=== PATIENT | male | born 1960 | race Caucasian/White ===

== ENCOUNTER 2016-12-27 06:42 | Day surgery (SDC) | payer MEDICARE ==
--- NOTE | 2016-12-18 09:24 | HP ---
DATE OF ADMISSION: Chief-complaint: Renal failure. HISTORY OF PRESENT ILLNESS: Patient is a 56-year-old male who has progressive renal failure. This was thought to be related to diabetes. He describes bilateral lower extremities leg swelling. He has had decent urine output. The patient when evaluated in October was not quite ready to proceed with dialysis catheter insertion, but called back recently to schedule. The patient is not interested in hemodialysis currently. Past medical history is renal failure, diabetes, hypertension, edema, coronary artery disease, sleep apnea, depression, neuropathy, CVA, COPD, hypertriglyceridemia, kidney stones, chronic pain, diverticulosis. MEDICATIONS: See list. ALLERGIES: None. PAST SURGICAL HISTORY: Abi, appendectomy, bladder. PHYSICAL EXAMINATION: GENERAL: Well-developed, well-nourished male in no distress. HEENT: Normocephalic. Sclerae anicteric. CHEST: No deformities. ABDOMEN: Soft, nontender, nondistended. Previous scars noted. No hernias. IMPRESSION: A 56-year-old male with renal failure. PLAN: Will proceed with PD catheter insertion on 12/27. The risks of bleeding, infection, catheter malfunction, bowel injury were discussed. The patient understands and wishes to proceed.
[2016-12-26 09:35] VITALS: BMI 28.5
[~2016-12-27 06:42] MED LIST: HEPARIN SODIUM,PORCINE 5,000 UNIT/ML 1 ML VIAL SQ ONE; HYDROmorphone 1 MG/ML 1 ML SYRINGE IVP PRN; LACTATED RINGERS 1,000 ML IV SCH; LIDOCAINE 1% 20 ML VIAL (10MG/ML) FOR IV START INTRADERMA PRN; ONDANSETRON 4 MG/2 ML VIAL IVP ONE; ceFAZolin 2 GM in SODIUM CHLORIDE 0.9% 100 ML IVPB ONE
[2016-12-27] MEDS ORDERED: SODIUM CHLORIDE 0.9% 1,000 ML IV ONE (07:27)
[2016-12-27 07:51] LABS: Glucose,Whole Blood 149 mg/dL (75-99)
[2016-12-27] MEDS ORDERED: MIDAZOLAM 2 MG/2 ML VIAL IVP ONE (08:01)
[2016-12-27 08:09] LABS: Basophils % (A) 1 %; CH 33.1; CHCM 37.3; Eosinophils # (A) 0.1 k/uL (0-0.7); Eosinophils % (A) 2 %; HCT 22.6 % (39.0-53.0); HDW 3.34; HGB 8.1 gm/dL (13.0-17.5); Hyperchromasia Slight; Luc # (Auto) 0.11; Luc % (Auto) 2; Lymphocytes # (A) 1.1 k/uL (1.0-4.8); Lymphocytes % (A) 23 %; MCH 31.9 pg (25.0-35.0); MCHC 35.8 g/dL (31.0-37.0); MCV 89.2 fL (80.0-100.0); Mean Platelet Volume 8.1; Monocytes # (A) 0.3 k/uL (0-1.0); Monocytes % (A) 6 %; Neutrophils # (A) 3.3 k/uL (1.3-7.7); Neutrophils % (A) 67 %; RBC 2.53 m/uL (4.30-5.90); RDW 14.5 % (11.5-15.5); WBC (Perox) 5.42
[2016-12-27] MEDS ORDERED: PROPOFOL 10 MG/ML 20 ML VIAL IV ONE (09:52)
[2016-12-27] MEDS ORDERED: ePHEDrine 50 MG/ML 1 ML AMP ONE (09:52)
[2016-12-27] MEDS ORDERED: SUCCINYLCHOLINE CHLORIDE 100 MG/5 ML SYR IV ONE (09:52)
[2016-12-27] MEDS ORDERED: LIDOCAINE 1% INJ 10MG/ML (20 ML MDV) ONE (09:52)
[2016-12-27] MEDS ORDERED: fentaNYL (PF) 50 MCG/ML 2 ML AMP ONE (09:52)
[2016-12-27] MEDS ORDERED: MIDAZOLAM 2 MG/2 ML VIAL ONE (09:52)
[2016-12-27] MEDS ORDERED: BUPIVACAIN-EPI 0.25%-1:200,000 30 ML VIAL SQ ONE ×3 (09:59→10:10)
[2016-12-27] MEDS ORDERED: MINERAL OIL 1 APPLIC/ML OIL TOPICAL ONE ×2 (09:59→10:10)
[2016-12-27] MEDS ORDERED: HYDROcodone/APAP 5-325MG 1 EACH TAB PO PRN (10:39)
[2016-12-27] MEDS ORDERED: NALOXONE 0.4 MG/ML 1 ML VIAL IV PRN (10:39)
--- NOTE | 2016-12-27 10:41 | P.PCN ---
Date of Procedure: 12/27/16 Procedure(s) Performed: PREOPERATIVE DIAGNOSIS: Renal failure POSTOPERATIVE DIAGNOSIS: Same PROCEDURE: Peritoneal dialysis catheter insertion SURGEON: Edy EBL: Minimal ANESTHESIA: Sedation plus local COMPLICATIONS: None OPERATIVE PROCEDURE: The patient was placed in the operative table in the supine position. His abdomen was prepped and draped in usual sterile fashion. A small vertical incision was made in the right periumbilical location. Dissection down through the subcutaneous tissues took place using electrocautery. The anterior rectus was divided vertically using the scalpel. The rectus was bluntly. The posterior rectus was visualized. An 0 Vicryl pursestring was placed. A small opening in the posterior rectus fascia and peritoneum took place using a Metzenbaum scissors. There were no adhesions to the suture that was placed. The pigtail catheter was advanced into the pelvis over a stylette. No resistance was met. The inner cuff was secured to the fascia using the 0 Vicryl pursestring that was placed. The catheter was tunneled to an exit site in the right lateral lower quadrant. The catheter was connected to the 1 L bag of saline and approximated 800 mL of saline was easily introduced into the peritoneal cavity. The fluid was then allowed to evacuate. The majority of the fluid was returned. The anterior rectus fascia was then reapproximated using a running 0 Vicryl stitch. The subcutaneous tissues reprepped using 3-0 Vicryl sutures and the skin using 4-0 Monocryl sutures. The outpatient dialysis adapter was applied to the end of the catheter. A sterile dressings then applied after Steri-Strips were placed over the incision. DISPOSITION: Stable to recovery room
[2016-12-27 11:01] VITALS: TEMP 97.4
[2016-12-27 11:07] LABS: Glucose,Whole Blood 125 mg/dL (75-99)
[2016-12-27] MEDS ORDERED: HYDROmorphone 1 MG/ML 1 ML SYRINGE IVP ONE ×5 (11:08→11:49)
[2016-12-27] MEDS ORDERED: hydrALAZINE HCL 20 MG/ML 1 ML VIAL IVP ONE ×2 (11:23→11:31)
[2016-12-27] MEDS ORDERED: LACTATED RINGERS 1,000 ML IV ONE (11:51)
[2016-12-27 11:59] VITALS: RESP 16
[2016-12-27 12:19] LABS: Glucose,Whole Blood 149 mg/dL (75-99)
[2016-12-27 12:54] VITALS: BP 156/69; PULSE 71
== END 2016-12-27 13:19 | disposition home or self-care (01) ==
LOC: OR 06:42
PROVIDERS: ATTEND Surgery
DX: N19 Unspecified kidney failure (principal); E11.9 Type 2 diabetes mellitus without complications; Z79.4 Long term (current) use of insulin; I10 Essential (primary) hypertension; Z87.891 Personal history of nicotine dependence; I25.10 Atherosclerotic heart disease of native coronary artery without angina pectoris; E78.5 Hyperlipidemia, unspecified; G47.33 Obstructive sleep apnea (adult) (pediatric); F32.9 Major depressive disorder, single episode, unspecified; G62.9 Polyneuropathy, unspecified; Z86.73 Personal history of transient ischemic attack (TIA), and cerebral infarction without residual deficits; J44.9 Chronic obstructive pulmonary disease, unspecified; E78.1 Pure hyperglyceridemia; G89.29 Other chronic pain; Z79.891 Long term (current) use of opiate analgesic; Z79.899 Other long term (current) drug therapy
CPT/HCPCS: 93005; 86900; 86901; 84132; 85025; 86850; 49418; C1752; J2250; J0360; J1644; J0690; J2405; J2001; J3010; J1170; J0330; J2704

== ENCOUNTER 2017-04-03 11:18 | Day surgery (SDC) | payer MEDICARE ==
[2017-04-01 14:26] VITALS: BMI 26.4
[~2017-04-03 11:18] MED LIST changes: -HEPARIN SODIUM,PORCINE 5,000 UNIT/ML 1 ML VIAL SQ ONE; -HYDROmorphone 1 MG/ML 1 ML SYRINGE IVP PRN; -LIDOCAINE 1% 20 ML VIAL (10MG/ML) FOR IV START INTRADERMA PRN; -ONDANSETRON 4 MG/2 ML VIAL IVP ONE
[2017-04-03 11:45] VITALS: RESP 16; TEMP 97.7
[2017-04-03] MEDS ORDERED: LIDOCAINE 1% 20 ML VIAL (10MG/ML) FOR IV START INTRADERMA ONE (12:07)
[2017-04-03] MEDS ORDERED: INSULIN LISPRO (humaLOG) 300 UNIT/3 ML VIAL SQ ONE (12:15)
[2017-04-03 12:22] LABS: Glucose,Whole Blood 225 mg/dL (75-99)
[2017-04-03 12:28] LABS: Calcium 7.7 mg/dL (8.4-10.2); Potassium 4.3 mmol/L (3.5-5.1)
[2017-04-03 12:41] LABS: Basophils % (A) 1 %; CH 32.6; CHCM 38.4; Eosinophils # (A) 0.1 k/uL (0-0.7); Eosinophils % (A) 2 %; HCT 21.7 % (39.0-53.0); HDW 3.66; HGB 8.1 gm/dL (13.0-17.5); Hyperchromasia Moderate; Luc # (Auto) 0.08; Luc % (Auto) 2; Lymphocytes # (A) 0.7 k/uL (1.0-4.8); Lymphocytes % (A) 20 %; MCH 31.6 pg (25.0-35.0); MCHC 37.1 g/dL (31.0-37.0); MCV 85.4 fL (80.0-100.0); Mean Platelet Volume 8.6; Monocytes # (A) 0.2 k/uL (0-1.0); Monocytes % (A) 6 %; Neutrophils # (A) 2.6 k/uL (1.3-7.7); Neutrophils % (A) 69 %; Poikilocytosis Slight; RBC 2.54 m/uL (4.30-5.90); RDW 14.9 % (11.5-15.5); WBC 3.7 k/uL (3.8-10.6); WBC (Perox) 4.16
[2017-04-03 13:06] LABS: Manual Review Performed
[2017-04-03 13:07] LABS: Spherocytes Present
[2017-04-03] MEDS ORDERED: MIDAZOLAM 2 MG/2 ML VIAL ONE (14:29)
[2017-04-03] MEDS ORDERED: PROPOFOL 10 MG/ML 20 ML VIAL IV ONE (14:29)
[2017-04-03] MEDS ORDERED: LIDOCAINE 1% INJ 10MG/ML (20 ML MDV) ONE (14:29)
[2017-04-03] MEDS ORDERED: fentaNYL (PF) 50 MCG/ML 2 ML AMP ONE (14:29)
--- NOTE | 2017-04-03 14:32 | P.GSHP ---
History of Present Illness H&P Date: 04/03/17 Chief Complaint: Malfunctioning peritoneal catheter Patient here today for removal of his peritoneal catheter. The patient developed scrotal swelling with peritoneal dialysis. This is despite multiple breaks in the usage of the catheter. He is currently on hemodialysis. His platelets to run low although today they were repeated and were 54. Past Medical History Past Medical History: Coronary Artery Disease (CAD), Chest Pain / Angina, COPD, Diabetes Mellitus, GERD/Reflux, Hyperlipidemia, Hypertension, Liver Disease, Osteoarthritis (OA), Renal Disease, Respiratory Disorder, Sleep Apnea/CPAP/BIPAP Additional Past Medical History / Comment(s): 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 Chronic kidney disease due to Diabetes, last received hemodialysis 03/31/17. Has been on hemodialysis X3 weeks. Pt states chronic low platelets and usually needs platelets prior to surgical procedures. Peritoneal dialysis catheter being removed because it is not functioning properly. History of Any Multi-Drug Resistant Organisms: None Reported Past Surgical History: Appendectomy, Back Surgery, Cholecystectomy, Heart Catheterization, Heart Catheterization With Stent Additional Past Surgical History / Comment(s): Tracheostomy, bladder stone removal, anterior cervical disc fusion, dialysis catheter insertion 12/27/16, jugular catheter insertion. Past Anesthesia/Blood Transfusion Reactions: No Reported Reaction Date of Last Stent Placement:: 2012 Past Psychological History: Anxiety, Depression Smoking Status: Former smoker Past Alcohol Use History: None Reported Additional Past Alcohol Use History / Comment(s): Quit smoking 1990, smoked approx 23 yrs 1ppd, no alcohol for approximately 6 yrs. Past Drug Use History: None Reported - Past Family History Father Family Medical History: Coronary Artery Disease (CAD) Mother Family Medical History: Coronary Artery Disease (CAD) Brother(s) Family Medical History: Cancer Daughter(s) Family Medical History: Vascular Disorder (VSD) Medications and Allergies Home Medications Medication Instructions Recorded Confirmed Type HYDROcodone/APAP 10-325MG [[place] 1 tab PO TID 02/25/14 04/03/17 History 10-325] Morphine Sulfate ER [Ms Contin] 30 mg PO BID 02/25/14 04/03/17 History ARIPiprazole [Abilify] 5 mg PO QAM 12/26/16 04/03/17 History Bumetanide [BUMEX] 2 mg PO 1700 12/26/16 04/03/17 History Bumetanide [BUMEX] 4 mg PO QAM 12/26/16 04/03/17 History Carvedilol [Coreg] 25 mg PO BID 12/26/16 04/03/17 History DULoxetine HCL [Cymbalta] 60 mg PO QAM 12/26/16 04/03/17 History INSULIN LISPRO (humaLOG) [humaLOG] 20 units SQ TID PRN 12/26/16 04/03/17 History Insulin Glargine [Lantus] 40 unit SQ QAM 12/26/16 04/03/17 History amLODIPine BESYLATE [Norvasc] 5 mg PO BID 12/26/16 04/03/17 History Omeprazole (Unknown Dose) 1 tab PO HS 04/01/17 04/03/17 History Allergies Allergy/AdvReac Type Severity Reaction Status Date / Time No Known Allergies Allergy Verified 04/03/17 11:35 Surgical - Exam Vital Signs Temp Pulse Resp BP Pulse Ox 97.7 F 68 16 148/66 97 04/03/17 11:44 04/03/17 11:44 04/03/17 11:44 04/03/17 11:44 04/03/17 11:44 Physical exam: General: Well-developed, well-nourished HEENT: Normocephalic, sclerae nonicteric Abdomen: Nontender, nondistended, pd cath noted Extremities: No edema Neuro: Alert and oriented Results - Labs 04/03/17 12:00 04/03/17 12:00 Abnormal Lab Results - Last 24 Hours (Table) 04/03/17 04/03/17 04/03/17 Range/Units 12:00 12:00 12:01 WBC 3.7 L (3.8-10.6) k/uL RBC 2.54 L (4.30-5.90) m/uL Hgb 8.1 L (13.0-17.5) gm/dL Hct 21.7 L (39.0-53.0) % MCHC 37.1 H (31.0-37.0) g/dL Plt Count 54 L (150-450) k/uL Lymphocytes # 0.7 L (1.0-4.8) k/uL Chloride 96 L (98-107) mmol/L Carbon Dioxide 32 H (22-30) mmol/L BUN 38 H (9-20) mg/dL Creatinine 3.58 H (0.66-1.25) mg/dL Glucose 241 H (74-99) mg/dL POC Glucose (mg/dL) 225 H (75-99) mg/dL Calcium 7.7 L (8.4-10.2) mg/dL Diabetes panel 04/03/17 Range/Units 12:00 Sodium 138 (137-145) mmol/L Potassium 4.3 (3.5-5.1) mmol/L Chloride 96 L (98-107) mmol/L Carbon Dioxide 32 H (22-30) mmol/L BUN 38 H (9-20) mg/dL Creatinine 3.58 H (0.66-1.25) mg/dL Glucose 241 H (74-99) mg/dL Calcium 7.7 L (8.4-10.2) mg/dL Calcium panel 04/03/17 Range/Units 12:00 Calcium 7.7 L (8.4-10.2) mg/dL Pituitary panel 04/03/17 Range/Units 12:00 Sodium 138 (137-145) mmol/L Potassium 4.3 (3.5-5.1) mmol/L Chloride 96 L (98-107) mmol/L Carbon Dioxide 32 H (22-30) mmol/L BUN 38 H (9-20) mg/dL Creatinine 3.58 H (0.66-1.25) mg/dL Glucose 241 H (74-99) mg/dL Calcium 7.7 L (8.4-10.2) mg/dL Adrenal panel 04/03/17 Range/Units 12:00 Sodium 138 (137-145) mmol/L Potassium 4.3 (3.5-5.1) mmol/L Chloride 96 L (98-107) mmol/L Carbon Dioxide 32 H (22-30) mmol/L BUN 38 H (9-20) mg/dL Creatinine 3.58 H (0.66-1.25) mg/dL Glucose 241 H (74-99) mg/dL Calcium 7.7 L (8.4-10.2) mg/dL Assessment and Plan (1) Renal failure Narrative/Plan: Will proceed with dialysis catheter removal at this time. Risks of bleeding, infection, hernia formation discussed. He understands and wishes to proceed. Status: Acute
[2017-04-03] MEDS ORDERED: BUPIVACAINE (PF) 0.25% 30 ML VIAL SQ ONE ×2 (14:42)
[2017-04-03] MEDS ORDERED: NALOXONE 0.4 MG/ML 1 ML VIAL IV PRN (15:52)
--- NOTE | 2017-04-03 15:53 | P.PCN ---
Date of Procedure: 04/03/17 Preoperative Diagnosis: Postoperative Diagnosis: Procedure(s) Performed: PREOPERATIVE DIAGNOSIS: Malfunctioning peritoneal catheter POSTOPERATIVE DIAGNOSIS: Same PROCEDURE: PD cath removal SURGEON: Edy EBL: 2 mL ANESTHESIA: Sedation and local COMPLICATIONS: None OPERATIVE PROCEDURE: Patient was placed in the supine position. The abdomen was prepped and draped in usual sterile fashion. The previous paramedian incision was re-incised after localizing the skin. The subcutaneous tissues were divided using electrocautery. Blunt dissection around the cuff that was present at the fascia and peritoneum took place. The cuff was fully mobilized. The catheter was removed from the perineal cavity. The outer cuff was dissected from the saphenous fascia using electrocautery. The catheter was cut on the other side of that cuff and the catheter was removed. The fascial defect was closed using a single [id number] 0 Vicryl stitch. The subcutaneous tissues were closed using 3-0 Vicryl sutures and the skin using 4- 0 Monocryl sutures. Steri-Strips and sterile dressings were applied. DISPOSITION: Stable to recovery room Implants: Indications for Procedure: Operative Findings: Description of Procedure:
[2017-04-03 15:57] LABS: Glucose,Whole Blood 201 mg/dL (75-99)
[2017-04-03 16:59] VITALS: BP 136/87; PULSE 70
== END 2017-04-03 16:44 | disposition home or self-care (01) ==
LOC: OR 11:18
PROVIDERS: ATTEND Surgery
DX: T85.611A Breakdown (mechanical) of intraperitoneal dialysis catheter, initial encounter (principal); I12.0 Hypertensive chronic kidney disease with stage 5 chronic kidney disease or end stage renal disease; E11.22 Type 2 diabetes mellitus with diabetic chronic kidney disease; N18.6 End stage renal disease; Z99.2 Dependence on renal dialysis; I25.118 Atherosclerotic heart disease of native coronary artery with other forms of angina pectoris; Z95.5 Presence of coronary angioplasty implant and graft; J44.9 Chronic obstructive pulmonary disease, unspecified; K21.9 Gastro-esophageal reflux disease without esophagitis; E78.5 Hyperlipidemia, unspecified; K76.0 Fatty (change of) liver, not elsewhere classified; M19.90 Unspecified osteoarthritis, unspecified site; J98.9 Respiratory disorder, unspecified; F41.9 Anxiety disorder, unspecified; F32.9 Major depressive disorder, single episode, unspecified; G47.33 Obstructive sleep apnea (adult) (pediatric); Z99.89 Dependence on other enabling machines and devices; Z79.4 Long term (current) use of insulin; Z79.891 Long term (current) use of opiate analgesic; Z79.899 Other long term (current) drug therapy; Z87.891 Personal history of nicotine dependence
CPT/HCPCS: 86900; 86901; 80048; 85025; 86850; 49422; J2250; J0690; J2001; J3010; J2704

== ENCOUNTER 2017-06-01 11:17 | Inpatient (IN) | payer BC, MEDICARE ==
[2017-06-01] MEDS ORDERED: LORazepam 2 MG/ML INJ IV STA (11:30)
[2017-06-01] MEDS ORDERED: ASPIRIN 325 MG TAB PO STA (11:30)
[2017-06-01 12:06] LABS: Anisocytosis Slight; Basophils % (A) 0 %; CH 33.2; CHCM 35.6; Eosinophils # (A) 0.1 k/uL (0-0.7); Eosinophils % (A) 1 %; HCT 33.5 % (39.0-53.0); HDW 3.55; Luc # (Auto) 0.06; Luc % (Auto) 1; Lymphocytes % (A) 15 %; MCH 32.6 pg (25.0-35.0); MCHC 34.9 g/dL (31.0-37.0); Mean Platelet Volume 8.7; Monocytes # (A) 0.3 k/uL (0-1.0); Monocytes % (A) 4 %; Neutrophils # (A) 5.2 k/uL (1.3-7.7); Neutrophils % (A) 79 %; Poikilocytosis Slight; RBC 3.58 m/uL (4.30-5.90); WBC 6.6 k/uL (3.8-10.6); WBC (Perox) 6.92
[2017-06-01 12:13] LABS: HGB 11.7 gm/dL (13.0-17.5)
[2017-06-01 12:14] LABS: MCV 93.6 fL (80.0-100.0)
[2017-06-01 12:17] LABS: INR 1.1 (<1.2); Partial Thromboplastin Time 22.3 sec (22.0-30.0); Prothrombin Time 11.3 sec (9.0-12.0)
[2017-06-01 12:20] LABS: Potassium 4.9 mmol/L (3.5-5.1); Total Bilirubin 1.5 mg/dL (0.2-1.3); Total Protein 4.9 g/dL (6.3-8.2)
--- NOTE | 2017-06-01 12:29 | XR ---
EXAMINATION TYPE: XR chest 2V DATE OF EXAM: 06/01/2017 HISTORY: Tremors. REFERENCE: Previous study dated 02/25/2014. FINDINGS: There is a large-bore, double-lumen catheter in place via a right internal jugular approach . Its tip is at the cavoatrial junction. There is no evidence of pneumothorax. Heart size upper limits of normal. The lungs are clear. Pleural spaces are clear. IMPRESSION: BORDERLINE CARDIOMEGALY.
[2017-06-01 12:30] LABS: Manual Review Performed
--- NOTE | 2017-06-01 12:30 | CT ---
EXAMINATION TYPE: CT brain wo con DATE OF EXAM: 06/01/2017 COMPARISON: NONE HISTORY: tremors CT DLP: 1115.6 mGycm Automated exposure control for dose reduction was used. FINDINGS: There are generalized changes of sulcal prominence and ventriculomegaly, compatible with atrophic vero nge. There is mild, diffuse periventricular white matter lucency, compatible with chronic white matte r ischemic change. There is no acute focal lesion, mass effect or midline shift identified. I do not see evidence of intracranial blood. Visualized portions of the paranasal sinuses and mastoids are clear. No depressed skull fracture is s een. IMPRESSION: 1. NO ACUTE INTRACRANIAL ABNORMALITY. 2. MILD ATROPHY. 3. CHRONIC WHITE MATTER ISCHEMIC CHANGE.
[2017-06-01] MEDS ORDERED: NALOXONE 0.4 MG/ML 1 ML VIAL IV PRN (14:06)
--- NOTE | 2017-06-01 14:10 | ED ---
General Adult HPI - General Chief complaint: Recheck/Abnormal Lab/Rx Stated complaint: Seizure/Tremors Time Seen by Provider: 06/01/17 11:29 Source: EMS Mode of arrival: EMS Limitations: no limitations - History of Present Illness Initial comments: 56-year-old male with past medical history of CAD, COPD, DM, HIV, HTN , liver disease, sleep apnea, [id number] pancreatitis, chronic cytopenia, kidney disease due to diabetes on HD since 03/31/2017 presented for evaluation of seizure-like activity. He states that his symptoms started late Friday and continued through Friday. He became concerned today when they continued and started to cause difficulty in breathing. He states that about every 20-30 seconds he has a spasm of his entire body that only lasts a few seconds however it is tight enough where he is unable to breathe through it. He had these symptoms a couple weeks ago but it resolved on its own and was not as severe. He has no history of seizures and states he is not on any antiepileptic medications. - Related Data Home Medications Medication Instructions Recorded Confirmed HYDROcodone/APAP 10-325MG [[place] 1 tab PO TID 02/25/14 04/03/17 10-325] Morphine Sulfate ER [Ms Contin] 30 mg PO BID 02/25/14 04/03/17 ARIPiprazole [Abilify] 5 mg PO DAILY 12/26/16 06/01/17 Bumetanide [BUMEX] 2 mg PO 1700 12/26/16 04/03/17 Bumetanide [BUMEX] 4 mg PO QAM 12/26/16 04/03/17 Carvedilol [Coreg] 25 mg PO BID 12/26/16 04/03/17 DULoxetine HCL [Cymbalta] 60 mg PO DAILY 12/26/16 06/01/17 INSULIN LISPRO (humaLOG) [humaLOG] 20 units SQ TID PRN 12/26/16 04/03/17 Insulin Glargine [Lantus] 40 unit SQ QAM 12/26/16 04/03/17 amLODIPine BESYLATE [Norvasc] 5 mg PO BID 12/26/16 06/01/17 Lisinopril [Zestril] 10 mg PO DAILY 06/01/17 06/01/17 Nitroglycerin Sl Tabs [Nitrostat] 0.4 mg SUBLINGUAL Q5M PRN 06/01/17 06/01/17 Omeprazole [PriLOSEC] 20 mg PO DAILY 06/01/17 06/01/17 Previous Rx's Medication Instructions Recorded Atorvastatin Calcium [Lipitor] 80 mg PO HS #30 tab 03/01/14 Allergies Allergy/AdvReac Type Severity Reaction Status Date / Time No Known Allergies Allergy Verified 06/01/17 14:19 Review of Systems ROS Statement: Those systems with pertinent positive or pertinent negative responses have been documented in the HPI. ROS Other: All systems not noted in ROS Statement are negative. Constitutional: Denies: fever, chills, weight change Eyes: Denies: eye pain, eye discharge ENT: Denies: ear pain, throat pain Respiratory: Denies: cough, dyspnea, hemoptysis Cardiovascular: Denies: chest pain, palpitations, dyspnea on exertion, syncope Endocrine: Denies: fatigue, heat or cold intolerance Gastrointestinal: Denies: abdominal pain, nausea, vomiting Genitourinary: Denies: urgency, dysuria Musculoskeletal: Denies: back pain, joint swelling Skin: Denies: rash, lesions Neurological: Reports: other (seizure-like activity; dizziness/LH with standing) . Denies: headache, weakness Psychiatric: Denies: anxiety, depression Hematological/Lymphatic: Denies: easy bleeding, easy bruising Past Medical History Past Medical History: Coronary Artery Disease (CAD), Chest Pain / Angina, COPD, Diabetes Mellitus, GERD/Reflux, Hyperlipidemia, Hypertension, Liver Disease, Osteoarthritis (OA), Renal Disease, Respiratory Disorder, Sleep Apnea/CPAP/BIPAP Additional Past Medical History / Comment(s): 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 Chronic kidney disease due to Diabetes, last received hemodialysis 03/31/17. Has been on hemodialysis X3 weeks. Pt states chronic low platelets and usually needs platelets prior to surgical procedures. Peritoneal dialysis catheter being removed because it is not functioning properly. History of Any Multi-Drug Resistant Organisms: None Reported Past Surgical History: Appendectomy, Back Surgery, Cholecystectomy, Heart Catheterization, Heart Catheterization With Stent Additional Past Surgical History / Comment(s): Tracheostomy, bladder stone removal, anterior cervical disc fusion, dialysis catheter insertion 12/27/16, jugular catheter insertion. Past Anesthesia/Blood Transfusion Reactions: No Reported Reaction Date of Last Stent Placement:: 2012 Past Psychological History: Anxiety, Depression Smoking Status: Former smoker Past Alcohol Use History: None Reported Past Drug Use History: None Reported - Past Family History Father Family Medical History: Coronary Artery Disease (CAD) Mother Family Medical History: Coronary Artery Disease (CAD) Brother(s) Family Medical History: Cancer Daughter(s) Family Medical History: Vascular Disorder (VSD) General Exam Limitations: no limitations General appearance: alert, in no apparent distress Head exam: Present: atraumatic, normocephalic, normal inspection Eye exam: Present: normal appearance, EOMI ENT exam: Present: normal exam, normal oropharynx Neck exam: Present: normal inspection. Absent: tenderness Respiratory exam: Present: normal lung sounds bilaterally. Absent: respiratory distress, wheezes, rales, rhonchi, stridor, accessory muscle use Cardiovascular Exam: Present: normal rhythm, bradycardia GI/Abdominal exam: Present: soft. Absent: distended, tenderness, guarding, rebound, rigid Rectal exam: Present: deferred Extremities exam: Present: normal inspection, full ROM Back exam: Present: normal inspection, full ROM Neurological exam: Present: alert, oriented X3, CN II-XII intact, other ( intermittent tetanic spasms of entire body lasting less than 5 seconds) Psychiatric exam: Present: normal affect, normal mood Skin exam: Present: warm, dry, intact, normal color. Absent: rash Course Vital Signs 06/01/17 06/01/17 06/01/17 13:05 14:01 14:56 Temperature 97.7 F 97.6 F Pulse Rate 56 L 57 L 62 Respiratory 18 16 16 Rate Blood Pressure 180/85 193/81 196/86 O2 Sat by Pulse 96 98 95 Oximetry Medical Decision Making - Medical Decision Making 56-year-old male with past medical history as noted above presented for evaluation of seizure-like activity. On physical examination he is having global spasms every 20-30 seconds that only last a few seconds and both his entire body. He is not losing consciousness and is able to describe his symptoms in detail. He states that he also has some lightheadedness and dizziness when he gets up from a seated or laying down. Pt given 5 mg of Valium by EMS in route to the hospital and had some improvement in symptoms however he continues to have his episodes. At this time uncertain etiology is due to central nervous system insult or if there is an infectious or metabolic component. We'll obtain CT head, chest x-ray, labs, EKG, and provide IV fluids and Ativan. Labs significant for an elevated BUN/creatinine however this is consistent with having been unable to complete his dialysis on Friday. His platelets are 42 however reviewing his chart he is chronically formal cytopenic. Remainder of his labs revealed no significant abnormalities. Patient reevaluated and at this time has some relief from the spasms however given the shortness breath and difficult breathing he had during the episodes will admit the patient for potential neuro consultation. Pt discussed with Dr. Webb who accepted the admission and requested a consult for neurology. A consult placed for Dr. Wall, admission order placed, and bed request submitted. Pt agreed with plan as did family at bedside. - Lab Data Result diagrams: 06/01/17 11:48 06/01/17 11:48 Lab Results 06/01/17 06/01/17 06/01/17 Range/Units 11:48 11:48 11:48 WBC 6.6 (3.8-10.6) k/uL RBC 3.58 L (4.30-5.90) m/uL Hgb 11.7 L D (13.0-17.5) gm/dL Hct 33.5 L (39.0-53.0) % MCV 93.6 D (80.0-100.0) fL MCH 32.6 (25.0-35.0) pg MCHC 34.9 (31.0-37.0) g/dL RDW 16.0 H (11.5-15.5) % Plt Count 42 L* (150-450) k/uL Neutrophils % 79 % Lymphocytes % 15 % Monocytes % 4 % Eosinophils % 1 % Basophils % 0 % Neutrophils # 5.2 (1.3-7.7) k/uL Lymphocytes # 1.0 (1.0-4.8) k/uL Monocytes # 0.3 (0-1.0) k/uL Eosinophils # 0.1 (0-0.7) k/uL Basophils # 0.0 (0-0.2) k/uL Manual Slide Review Performed Poikilocytosis Slight Anisocytosis Slight PT (9.0-12.0) sec INR (<1.2) APTT (22.0-30.0) sec Sodium 137 (137-145) mmol/L Potassium 4.9 (3.5-5.1) mmol/L Chloride 102 (98-107) mmol/L Carbon Dioxide 28 (22-30) mmol/L Anion Gap 7 mmol/L BUN 48 H (9-20) mg/dL Creatinine 3.55 H (0.66-1.25) mg/dL Est GFR (MDRD) Af Amer 22 (>60 ml/min/1.73 sqM) Est GFR (MDRD) Non-Af 18 (>60 ml/min/1.73 sqM) Glucose 262 H (74-99) mg/dL Plasma Lactic Acid [place] 1.0 (0.7-2.0) mmol/L Calcium 7.0 L (8.4-10.2) mg/dL Total Bilirubin 1.5 H (0.2-1.3) mg/dL AST 16 L (17-59) U/L ALT 32 (21-72) U/L Alkaline Phosphatase 66 (38-126) U/L Troponin I (0.000-0.034) ng/mL NT-Pro-B Natriuret Pep pg/mL Total Protein 4.9 L (6.3-8.2) g/dL Albumin 2.8 L (3.5-5.0) g/dL Lipase 84 (23-300) U/L 06/01/17 06/01/17 06/01/17 Range/Units 11:48 11:48 11:48 WBC (3.8-10.6) k/uL RBC (4.30-5.90) m/uL Hgb (13.0-17.5) gm/dL Hct (39.0-53.0) % MCV (80.0-100.0) fL MCH (25.0-35.0) pg MCHC (31.0-37.0) g/dL RDW (11.5-15.5) % Plt Count (150-450) k/uL Neutrophils % % Lymphocytes % % Monocytes % % Eosinophils % % Basophils % % Neutrophils # (1.3-7.7) k/uL Lymphocytes # (1.0-4.8) k/uL Monocytes # (0-1.0) k/uL Eosinophils # (0-0.7) k/uL Basophils # (0-0.2) k/uL Manual Slide Review Poikilocytosis Anisocytosis PT 11.3 (9.0-12.0) sec INR 1.1 (<1.2) APTT 22.3 (22.0-30.0) sec Sodium (137-145) mmol/L Potassium (3.5-5.1) mmol/L Chloride (98-107) mmol/L Carbon Dioxide (22-30) mmol/L Anion Gap mmol/L BUN (9-20) mg/dL Creatinine (0.66-1.25) mg/dL Est GFR (MDRD) Af Amer (>60 ml/min/1.73 sqM) Est GFR (MDRD) Non-Af (>60 ml/min/1.73 sqM) Glucose (74-99) mg/dL Plasma Lactic Acid [place] (0.7-2.0) mmol/L Calcium (8.4-10.2) mg/dL Total Bilirubin (0.2-1.3) mg/dL AST (17-59) U/L ALT (21-72) U/L Alkaline Phosphatase (38-126) U/L Troponin I 0.019 (0.000-0.034) ng/mL NT-Pro-B Natriuret Pep 4110 pg/mL Total Protein (6.3-8.2) g/dL Albumin (3.5-5.0) g/dL Lipase (23-300) U/L Disposition Clinical Impression: Observed seizure-like activity, Acute on chronic renal failure Disposition: ADMITTED IP TO THIS [facility] Decision to Admit Reason: Admit from EC Decision Date: 06/01/17 Decision Time: 14:10
[2017-06-01] MEDS ORDERED: CARVEDILOL 12.5 MG TAB PO STA (14:54)
[2017-06-01] MEDS ORDERED: amLODIPine 5 MG TAB PO STA (14:54)
[2017-06-01] MEDS ORDERED: LISINOPRIL 10 MG TAB PO STA (14:54)
[2017-06-01 16:38] VITALS: BMI 26.4
[2017-06-01 20:29] LABS: Glucose,Whole Blood 435 mg/dL (75-99)
[2017-06-01] MEDS ORDERED: NITROGLYCERIN SL TABS 0.4 MG TAB SUBLINGUAL PRN (21:54)
--- NOTE | 2017-06-01 21:54 | P.HPIM ---
History of Present Illness H&P Date: 06/01/17 Chief Complaint: Involuntary dystonia. This is a 56 Year-Old male one of patient with a previous medical history significant for CAD post PCI and stenting of the RCA x3 stents, also hypertension and hypertensive cardiovascular disease, hyperlipidemia, diabetes mellitus type 2 and diabetic neuropathy with remote history of alcohol abuse and splenomegaly causing thrombocytopenia, patient was started recently on HD with ultrfiltration through a Perma-Cath that was placed in the right IJ in about december of this year, patient was brought into the Emergency department at [facility] because of involunatry dystonic movement of upper and lower extremities that was so severe to the degree it made him hold his breath , he missed his dialysis yesterday, and his called EMS in route to the hospital he received valium 5 mg and here in the ER did receive multiple doses of Lorazepam so he aborted the dystonic reaction, and patient was kept in the hospital for possible seizure, with neurology consultation and nephrology consultation. Review of Systems Constitutional: Reports chronic headaches, Reports chronic pain, Reports fatigue , Reports lethargy, Reports malaise, Reports weakness, Denies anorexia Eyes: denies blurred vision, denies bulging eye, denies decreased vision, denies diplopia Ears: deny: decreased hearing Ears, nose, mouth and throat: Denies dysphagia, Denies neck lump, Denies swelling in throat, Denies sore throat Cardiovascular: Reports decreased exercise tolerance, Reports shortness of breath, Denies chest pain, Denies claudication, Denies lightheadedness, Denies rapid heart beat, Denies syncope Respiratory: Reports dyspnea, Denies congestion, Denies cough, Denies cough with sputum, Denies home oxygen, Denies sleep apnea, Denies snoring, Denies wheezing Gastrointestinal: Denies abdominal pain, Denies bloating, Denies BRBPR, Denies heartburn, Denies melena, Denies nausea, Denies vomiting Genitourinary: Denies dysuria Musculoskeletal: Reports muscle cramps, Denies myalgias Musculoskeletal: absent: ankle pain, ankle stiffness, ankle swelling, elbow pain , elbow stiffness, elbow swelling, foot pain, foot stiffness, foot swelling, hand pain, hand stiffness, hand swelling, hip pain, hip stiffness, hip swelling , knee pain, knee stiffness, knee swelling, shoulder pain, shoulder stiffness, shoulder swelling, wrist pain, wrist stiffness Integumentary: Denies pruritus, Denies rash Neurological: Reports spasticity, Denies numbness, Denies weakness Psychiatric: Reports anxiety, Reports depression, Denies sadness/tearfulness, Denies sleep disturbances, Denies suicidal ideation Endocrine: Denies fatigue, Denies weight change Past Medical History Past Medical History: Coronary Artery Disease (CAD), Chest Pain / Angina, COPD, Diabetes Mellitus, GERD/Reflux, Hyperlipidemia, Hypertension, Liver Disease, Osteoarthritis (OA), Renal Disease, Respiratory Disorder, Sleep Apnea/CPAP/BIPAP Additional Past Medical History / Comment(s): 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 Chronic kidney disease due to Diabetes, last received hemodialysis 03/31/17. Has been on hemodialysis X3 weeks. Pt states chronic low platelets and usually needs platelets prior to surgical procedures. Peritoneal dialysis catheter being removed because it is not functioning properly. History of Any Multi-Drug Resistant Organisms: None Reported Past Surgical History: Appendectomy, Back Surgery, Cholecystectomy, Heart Catheterization, Heart Catheterization With Stent Additional Past Surgical History / Comment(s): Tracheostomy, bladder stone removal, anterior cervical disc fusion, dialysis catheter insertion 12/27/16, jugular catheter insertion. Past Anesthesia/Blood Transfusion Reactions: No Reported Reaction Date of Last Stent Placement:: 2012 Past Psychological History: Anxiety, Depression Smoking Status: Former smoker Past Alcohol Use History: None Reported Past Drug Use History: None Reported - Past Family History Father Family Medical History: Coronary Artery Disease (CAD) Mother Family Medical History: Coronary Artery Disease (CAD) Brother(s) Family Medical History: Cancer Daughter(s) Family Medical History: Vascular Disorder (VSD) Medications and Allergies Home Medications Medication Instructions Recorded Confirmed Type HYDROcodone/APAP 10-325MG [Garland 1 tab PO TID 02/25/14 04/03/17 History 10-325] Morphine Sulfate ER [Ms Contin] 30 mg PO BID 02/25/14 04/03/17 History Atorvastatin Calcium [Lipitor] 80 mg PO HS #30 tab 03/01/14 06/01/17 Rx ARIPiprazole [Abilify] 5 mg PO DAILY 12/26/16 06/01/17 History Bumetanide [BUMEX] 2 mg PO 1700 12/26/16 04/03/17 History Bumetanide [BUMEX] 4 mg PO QAM 12/26/16 04/03/17 History Carvedilol [Coreg] 25 mg PO BID 12/26/16 04/03/17 History DULoxetine HCL [Cymbalta] 60 mg PO DAILY 12/26/16 06/01/17 History INSULIN LISPRO (humaLOG) [humaLOG] 20 units SQ TID PRN 12/26/16 04/03/17 History Insulin Glargine [Lantus] 40 unit SQ QAM 12/26/16 04/03/17 History amLODIPine BESYLATE [Norvasc] 5 mg PO BID 12/26/16 06/01/17 History Lisinopril [Zestril] 10 mg PO DAILY 06/01/17 06/01/17 History Nitroglycerin Sl Tabs [Nitrostat] 0.4 mg SUBLINGUAL Q5M PRN 06/01/17 06/01/17 History Omeprazole [PriLOSEC] 20 mg PO DAILY 06/01/17 06/01/17 History Allergies Allergy/AdvReac Type Severity Reaction Status Date / Time No Known Allergies Allergy Verified 06/01/17 14:19 Physical Exam Vitals: Vital Signs Temp Pulse Pulse Resp BP BP Pulse Ox 06/01/17 16:41 97.0 F L 56 L 156/78 97 06/01/17 14:56 97.6 F 62 16 196/86 95 06/01/17 14:01 57 L 16 193/81 98 06/01/17 13:05 97.7 F 56 L 18 180/85 96 Intake and Output 06/01/17 06/01/17 06/01/17 06:59 14:59 22:59 Other: Weight 88.451 kg 88.451 kg Patient Weight 06/02/17 06:59 Weight 88.451 kg - Constitutional General appearance: average body habitus, no acute distress - EENT Eyes: anicteric sclerae, EOMI, PERRLA, no ptosis, no scleral icterus, normal appearance ENT: hearing grossly normal, NA/AT, normal oropharynx, no thrush Ears: bilateral: normal - Neck Neck: no lymphadenopathy, normal ROM, no rigidity, no stridor, no thyromegaly Carotids: bilateral: upstroke delayed Thyroid: bilateral: normal size - Respiratory Respiratory: bilateral: diminished, negative: dullness, rales, rhonchi, wheezing , prolonged expiration, prolonged inspiration - Cardiovascular Rhythm: regular Heart sounds: normal: S1, S2 Abnormal Heart Sounds: systolic murmur, no S3 Gallop, no S4 Gallop, no click - Gastrointestinal General gastrointestinal: normal bowel sounds, soft, splenomegaly, no tenderness , no umbilical hernia, no ventral hernia - Integumentary Integumentary: normal, normal turgor - Neurologic Neurologic: CNII-XII intact - Musculoskeletal Musculoskeletal: generalized weakness, strength equal bilaterally - Psychiatric Psychiatric: A&O x's 3, no appropriate affect, intact judgment & insight Results CBC & Chem 7: 06/01/17 11:48 06/01/17 11:48 Labs: Abnormal Lab Results - Last 24 Hours (Table) 06/01/17 06/01/17 Range/Units 11:48 11:48 RBC 3.58 L (4.30-5.90) m/uL Hgb 11.7 L D (13.0-17.5) gm/dL Hct 33.5 L (39.0-53.0) % RDW 16.0 H (11.5-15.5) % Plt Count 42 L* (150-450) k/uL BUN 48 H (9-20) mg/dL Creatinine 3.55 H (0.66-1.25) mg/dL Glucose 262 H (74-99) mg/dL Calcium 7.0 L (8.4-10.2) mg/dL Total Bilirubin 1.5 H (0.2-1.3) mg/dL AST 16 L (17-59) U/L Total Protein 4.9 L (6.3-8.2) g/dL Albumin 2.8 L (3.5-5.0) g/dL Thrombosis Risk Factor Assmnt - DVT/VTE Prophylaxis DVT/VTE Prophylaxis: Mechanical Prophylaxis ordered - Choose All That Apply Each Factor Represents 1 point: Age 41-60 years Thrombosis Risk Factor Assessment Total Risk Factor Score: 1 Thrombosis Risk Factor Assessment Level: Low Risk Assessment and Plan Plan: Assessment and Plan: 1. Dystonic reaction possibly medication side effects due to Aripiprazole. discontinue SSRI and Aripiprazolem for now will check CPK for possible serotonin syndrome , doubt seizure at this point, but we will check EEG and will apply seizure precautions and will get Neurology consult. we will continue with lorazepam as needed. 2. CAD post PCI of the RCA. we will continue with ASA 8 mg po daily,Coreg 25 mg orally BID, and Lipitor 80 mg orally daily. 3. ESRD was just started o HD with ultrafiltration. we will consult Nephrology. 4. Hypertension and hypertensive cardiovascular disease with reported Accelerated hypertension. we will restart Amlodipine 5 mg po daily, Coreg 25 mg orally BID, increase Lisinopril to 20 mg orally BID and will add Hydralazine 20 mg IVP Q 2h as needed for SBP>160. 5. Diabetes Mellitus type 2. we will continue with Lantus 27 units SC QHS and Humalog 8 units SC AC meals tid along with SSI. 6. 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 7. Anxiety. we will hold Paxil and Aripiprazole. 8. PAD. we will continue with ASA and lipitor for secondary prevention. 9. Hyperlipidemia. we will continue with low cholesterol diet and Lipitor 80 mg orally daily. 10. Diabetic Neuropathy. stable. 11. Degenerative disc disease of the Cervical spine S/P ACDF. will continue with [place] . 12. DVT prophylaxis. we will continue with bilateral knee-high RYAN HOSE. 13. GI prophylaxis. we will continue with PPI. [facility] Estimated length of stay 2 midnights. 15. Full code.
[2017-06-01] MEDS: INSULIN LISPRO (humaLOG) 300 UNIT/3 ML VIAL SQ SCH (22:11)
[2017-06-01] MEDS: INSULIN GLARGINE 100 UNIT/ML 10 ML VIAL SQ SCH (22:11)
[2017-06-01] MEDS: LORazepam 2 MG/ML INJ IV PRN (22:12)
[2017-06-01] MEDS: LISINOPRIL 20 MG TAB PO SCH (22:27)
[2017-06-02] MEDS: hydrALAZINE HCL 20 MG/ML 1 ML VIAL IVP PRN ×2 (00:38→08:25)
[2017-06-02 02:11] LABS: Glucose,Whole Blood 247 mg/dL (75-99)
[2017-06-02 03:37] LABS: Anisocytosis Slight; Basophils % (A) 0 %; CH 33.7; CHCM 35.4; Eosinophils % (A) 1 %; HCT 32.4 % (39.0-53.0); HDW 3.38; HGB 11.4 gm/dL (13.0-17.5); Luc # (Auto) 0.04; Luc % (Auto) 1; Lymphocytes # (A) 0.7 k/uL (1.0-4.8); Lymphocytes % (A) 13 %; MCH 33.7 pg (25.0-35.0); MCHC 35.3 g/dL (31.0-37.0); MCV 95.7 fL (80.0-100.0); Mean Platelet Volume 9.9; Monocytes # (A) 0.2 k/uL (0-1.0); Monocytes % (A) 4 %; Neutrophils % (A) 81 %; RBC 3.38 m/uL (4.30-5.90); RDW 16.2 % (11.5-15.5); WBC 4.9 k/uL (3.8-10.6); WBC (Perox) 5.94
[2017-06-02 07:38] LABS: Glucose,Whole Blood 189 mg/dL (75-99)
[2017-06-02] MEDS: INSULIN LISPRO (humaLOG) 300 UNIT/3 ML VIAL SQ SCH ×7 (08:23→20:47)
[2017-06-02] MEDS: amLODIPine 5 MG TAB PO SCH ×2 (08:24→20:46)
[2017-06-02] MEDS: PANTOPRAZOLE 40 MG TABLET PO SCH (08:24)
[2017-06-02] MEDS: LISINOPRIL 20 MG TAB PO SCH ×2 (08:24→20:46)
[2017-06-02 08:36] LABS: Calcium 7.2 mg/dL (8.4-10.2); Magnesium 2.1 mg/dL (1.6-2.3); Potassium 4.9 mmol/L (3.5-5.1); Total Bilirubin 1.5 mg/dL (0.2-1.3); Total Protein 5.1 g/dL (6.3-8.2)
[2017-06-02] MEDS: MORPHINE SULFATE ER 30 MG TABLET PO SCH ×2 (08:51→20:46)
[2017-06-02] MEDS: CARVEDILOL 12.5 MG TAB PO SCH ×2 (08:52→18:04)
[2017-06-02] MEDS ORDERED: HYDROcodone/APAP 10-325MG 1 EACH TAB PO PRN (09:00)
[2017-06-02] MEDS ORDERED: ARIPiprazole 5 MG TAB PO SCH (09:00)
[2017-06-02] MEDS ORDERED: LISINOPRIL 20 MG TAB PO SCH (09:00)
[2017-06-02] MEDS: LORazepam 2 MG/ML INJ IV PRN ×2 (10:56→20:45)
[2017-06-02 11:08] LABS: Glucose,Whole Blood 160 mg/dL (75-99)
[2017-06-02 12:04] LABS: Hemoglobin A1C 6.8 % (4.2-6.1)
--- NOTE | 2017-06-02 14:42 | P.PN ---
Subjective Progress Note Date: 06/02/17 This is a 56 Year-Old male one of patient with a previous medical history significant for CAD post PCI and stenting of the RCA x3 stents, also hypertension and hypertensive cardiovascular disease, hyperlipidemia, diabetes mellitus type 2 and diabetic neuropathy with remote history of alcohol abuse and splenomegaly causing thrombocytopenia, patient was started recently on HD with ultrfiltration through a Perma-Cath that was placed in the right IJ in about december of this year, patient was brought into the Emergency department at [facility] because of involunatry dystonic movement of upper and lower extremities that was so severe to the degree it made him hold his breath , he missed his dialysis yesterday, and his called EMS in route to the hospital he received valium 5 mg and here in the ER did receive multiple doses of Lorazepam so he aborted the dystonic reaction, and patient was kept in the hospital for possible seizure, with neurology consultation and nephrology consultation. 06/02: Patient's blood pressure was elevated this morning and he has been resumed back on his home medications including Coreg and hydralazine has also been added. Neuro consult has been pending. Patient has been seen and followed by Dr. Garcia from nephrology. She has added and spironolactone. Platelet count is currently at 38 thought to be secondary to bone marrow suppression from alcohol abuse. Blood culture showing no growth at 24 hours. Objective - Vital Signs Vital signs: Vital Signs Temp 98.3 F 06/02/17 08:38 Pulse 64 06/02/17 08:38 Resp 16 06/02/17 08:38 BP 158/50 06/02/17 09:39 Pulse Ox 98 06/02/17 08:38 Intake & Output 06/01/17 06/02/17 06/02/17 18:59 06:59 18:59 Intake Total 600 Balance 600 Weight 88.451 kg Intake: Oral 600 Other: Voiding Method Toilet # Voids 1 # Bowel Movements 1 - Exam General appearance: average body habitus, no acute distress - EENT Eyes: anicteric sclerae, EOMI, PERRLA, no ptosis, no scleral icterus, normal appearance ENT: hearing grossly normal, NA/AT, normal oropharynx, no thrush Ears: bilateral: normal - Neck Neck: no lymphadenopathy, normal ROM, no rigidity, no stridor, no thyromegaly Carotids: bilateral: upstroke delayed Thyroid: bilateral: normal size - Respiratory Respiratory: bilateral: diminished, negative: dullness, rales, rhonchi, wheezing , prolonged expiration, prolonged inspiration - Cardiovascular Rhythm: regular Heart sounds: normal: S1, S2 Abnormal Heart Sounds: systolic murmur, no S3 Gallop, no S4 Gallop, no click - Gastrointestinal General gastrointestinal: normal bowel sounds, soft, splenomegaly, no tenderness , no umbilical hernia, no ventral hernia - Integumentary Integumentary: normal, normal turgor - Neurologic Neurologic: CNII-XII intact - Musculoskeletal Musculoskeletal: generalized weakness, strength equal bilaterally - Psychiatric Psychiatric: A&O x's 3, no appropriate affect, intact judgment & insight - Labs CBC & Chem 7: 06/02/17 03:10 06/02/17 07:35 Labs: Abnormal Lab Results - Last 24 Hours (Table) 06/01/17 06/02/17 06/02/17 Range/Units 20:27 02:09 03:10 RBC 3.38 L (4.30-5.90) m/uL Hgb 11.4 L (13.0-17.5) gm/dL Hct 32.4 L (39.0-53.0) % RDW 16.2 H (11.5-15.5) % Plt Count 38 L* (150-450) k/uL Lymphocytes # 0.7 L (1.0-4.8) k/uL BUN (9-20) mg/dL Creatinine (0.66-1.25) mg/dL Glucose (74-99) mg/dL POC Glucose (mg/dL) 435 H 247 H (75-99) mg/dL Hemoglobin A1c (4.2-6.1) % Calcium (8.4-10.2) mg/dL Total Bilirubin (0.2-1.3) mg/dL Total Protein (6.3-8.2) g/dL Albumin (3.5-5.0) g/dL 06/02/17 06/02/17 06/02/17 Range/Units 03:10 07:15 07:35 RBC (4.30-5.90) m/uL Hgb (13.0-17.5) gm/dL Hct (39.0-53.0) % RDW (11.5-15.5) % Plt Count (150-450) k/uL Lymphocytes # (1.0-4.8) k/uL BUN 58 H (9-20) mg/dL Creatinine 3.46 H (0.66-1.25) mg/dL Glucose 187 H (74-99) mg/dL POC Glucose (mg/dL) 189 H (75-99) mg/dL Hemoglobin A1c 6.8 H (4.2-6.1) % Calcium 7.2 L (8.4-10.2) mg/dL Total Bilirubin 1.5 H (0.2-1.3) mg/dL Total Protein 5.1 L (6.3-8.2) g/dL Albumin 2.9 L (3.5-5.0) g/dL 06/02/17 Range/Units 11:06 RBC (4.30-5.90) m/uL Hgb (13.0-17.5) gm/dL Hct (39.0-53.0) % RDW (11.5-15.5) % Plt Count (150-450) k/uL Lymphocytes # (1.0-4.8) k/uL BUN (9-20) mg/dL Creatinine (0.66-1.25) mg/dL Glucose (74-99) mg/dL POC Glucose (mg/dL) 160 H (75-99) mg/dL Hemoglobin A1c (4.2-6.1) % Calcium (8.4-10.2) mg/dL Total Bilirubin (0.2-1.3) mg/dL Total Protein (6.3-8.2) g/dL Albumin (3.5-5.0) g/dL Assessment and Plan Plan: 1. Dystonic reaction possibly medication side effects due to Aripiprazole. discontinue SSRI and Aripiprazolem for now will check CPK for possible serotonin syndrome , doubt seizure at this point, but we will check EEG and will apply seizure precautions and will get Neurology consult. we will continue with lorazepam as needed. 2. CAD post PCI of the RCA. we will continue with ASA 8 mg po daily,Coreg 25 mg orally BID, and Lipitor 80 mg orally daily. 3. ESRD was just started on HD with ultrafiltration. Consult with Dr. Garcia appreciated.. 4. Hypertension and hypertensive cardiovascular disease with reported Accelerated hypertension. we will restart Amlodipine 5 mg po daily, Coreg 25 mg orally BID, increase Lisinopril to 20 mg orally BID and will add Hydralazine 20 mg IVP Q 2h as needed for SBP>160. Hydralazine 50 mg 3 times daily added 5. Diabetes Mellitus type 2. we will continue with Lantus 27 units SC QHS and Humalog 8 units SC AC meals tid along with SSI. 6. 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 7. Anxiety, generalized. we will hold Paxil and Aripiprazole. 8. PAD. we will continue with ASA and lipitor for secondary prevention. 9. Hyperlipidemia. we will continue with low cholesterol diet and Lipitor 80 mg orally daily. 10. Diabetic Neuropathy. stable. 11. Degenerative disc disease of the Cervical spine S/P ACDF. will continue with [place] . 12. DVT prophylaxis. we will continue with bilateral knee-high RYAN HOSE. 13. GI prophylaxis. we will continue with PPI. 14. [facility] Estimated length of stay 2 midnights. 15. Full code. Discharge plan: Return home Impression and plan of care have been directed as dictated by the signing physician. Iram Love nurse practitioner acting as scribe for signing physician.
--- NOTE | 2017-06-02 15:27 | CONS ---
CONSULTATION REASON FOR CONSULT: End-stage renal disease. HISTORY OF PRESENT ILLNESS: The patient is a 56-year-old male with history of end-stage renal disease, on hemodialysis. He was at the [facility]. Patient was admitted to the hospital with severely uncontrolled hypertension and also severe anxiety/seizure-like activity but not an actual seizure. The patient has received Ativan and Valium. He seems better, but remains quite anxious and has just received Ativan. He is currently seen on hemodialysis. Blood pressure has been high, appears to have improved to somewhat degree since admission. The patient has been on Abilify and Cymbalta as outpatient. There is no history of fever, chills, chest pain, nausea, vomiting. PAST MEDICAL HISTORY: End-stage renal disease, diabetes, coronary artery disease, osteoarthritis, hyperlipidemia, pancreatitis, previous history of EtOH abuse, thrombocytopenia. PAST SURGICAL HISTORY: Appendectomy, PD catheter placement and removal, PermCath placement, bladder stone removal, heart catheterization, coronary artery stent, back surgery, appendectomy. Past medical history is also significant for depression and anxiety. SOCIAL HISTORY: Social history is positive for former smoker. MEDICATIONS: Medications at home prior to admission included: 1. MS Contin. 2. [place]. 3. Bumex. 4. Insulin. 5. Cymbalta. 6. Coreg. 7. Abilify. 8. Norvasc. 9. Zestril. 10.Nitrostat. 11.Prilosec. 12.Lipitor. ALLERGIES: None. EXAMINATION: Patient is comfortable, awake. He is not in any acute distress. He dozes off to sleep while talking. Blood pressure is 191/78 on hemodialysis, heart rate 64 per minute. Patient is afebrile. Examination of the heart S1, S2. Examination of the lungs bilateral breath sounds are heard. No crackles or wheezing heard. Abdomen is soft, nontender. Examination of lower extremities shows no evidence of edema. [employer] exam shows patient has been moving all 4 extremities. LABS SHOW: Sodium 140, potassium 4.9, hemoglobin 11.4, platelet count 38,000. ASSESSMENT: 1. End-stage renal disease, on hemodialysis on a Friday, Friday, Friday schedule at [facility], currently seen on dialysis. 2. Anxiety reaction, need to rule out neuro malignant syndrome currently significantly improved. Neurology consult is pending. The SSRIs have been discontinued. 3. Coronary artery disease with history of previous coronary stents. 4. Severe hypertension currently uncontrolled. Discussed with Dr. Webb. His medications have been increased. Doubt workup for secondary causes will reveal any findings. We will reassess once patient is seen by Neurology. Maybe his blood pressure will improve with adjustment of medications. 5. Thrombocytopenia which is chronic with prior history of EtOH abuse and splenomegaly. 6. History of depression, anxiety. PLAN: Hemodialysis today. Goal UF of about 2 L. Add oral hydralazine. I will add spironolactone as well and await Neurology input. Thank you for this consultation. We will continue to follow the patient with you during his hospitalization. MMODL / IJN: [id number] /
[2017-06-02] MEDS: SPIRONOLACTONE 25 MG TAB PO SCH (15:57)
[2017-06-02] MEDS: hydrALAZINE HCL 50 MG TAB PO SCH ×2 (15:58→20:46)
[2017-06-02 17:15] LABS: Glucose,Whole Blood 360 mg/dL (75-99)
[2017-06-02 20:28] LABS: Glucose,Whole Blood 334 mg/dL (75-99)
[2017-06-02] MEDS: INSULIN GLARGINE 100 UNIT/ML 10 ML VIAL SQ SCH (20:47)
[2017-06-02] MEDS ORDERED: ATORVASTATIN 80 MG TAB PO SCH (21:00)
--- NOTE | 2017-06-03 02:17 | P.CNNES ---
History of Present Illness Consult date: 06/02/17 Reason for Consult: Patient being evaluated for altered mental status and myoclonus. History of Present Illness: This patient is a 56-year-old right-handed white male with a history of end- stage renal disease. He has recently been started on hemodialysis. 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 Apparently he follows with Dr. Garcia. Patient states he was undergoing hemodialysis in the lab in [facility] when he was found to have evidence of severe hypertension. He was experiencing myoclonus and rapid muscular contractions of his entire body. Apparently on Friday of this past week his blood pressure readings went as high as 200/95. Due to the ongoing symptoms of what appeared to be seizure-like activity as well as uncontrolled hypertension he was brought into the emergency room at [facility] for further evaluation. He was seen in the emergency room on 06/01/2017. He was seen in the ER by Dr. Alcocer. He was given some Ativan which did help some of the jerking motion. Apparently the Ativan did quickly remedied much of the jerking motions in the ER. He shouldn't was seen in the ER by Dr. Alcocer. He had undergone a computed tomography scan of the brain yesterday that failed to reveal any acute changes. The finals CAT scan report indicated no acute intracranial abnormality. There was mild atrophy seen. There was no evidence of acute stroke or hemorrhage. There was concern the patient may have had some form of dystonic reaction due to his medications which included Abilify and Cymbalta. The patient does have a history of depression and anxiety disorder. It was recommended that he stop both of these medications. Since admission to the hospital he apparently has not shown evidence of the quick myoclonic-like jerks. The patient mentions that he has been on hemodialysis only for the past 2 months. He has had episodes of nausea and vomiting and confusion related to his hemodialysis. The patient states that the jerking motion that was noted in [place] did not appear to be seizure- like. Patient denies any previous history of seizures. According to the patient recently during dialysis he has been showing evidence of uncontrolled hypertension. This is to be addressed by Dr. Garcia. Apparently he is been started on hydralazine and spironolactone however his blood pressure still remains quite elevated. We'll await further recommendations from nephrology. The patient does have a known history of diabetes mellitus type 2. He developed diabetic nephropathy which has led to his renal failure and now ongoing hemodialysis. According to the patient yesterday he developed involuntary dystonic movements of both the upper and lower extremities. There were so severe that it made him hold his breath. He was treated with Valium and Ativan and since admission to the hospital today has been doing much better. The patient has no previous history of seizures. We have recommended a routine EEG to be done tomorrow for further assessment. We would also recommend MRI of the brain for further evaluation of this condition. Neurology is now been consulted for further evaluation and recommendations. Review of Systems Constitutional: Denies chills, Denies fever Eyes: denies blurred vision, denies pain Ears, nose, mouth and throat: Denies headache, Denies sore throat Cardiovascular: Denies chest pain, Denies shortness of breath Respiratory: Reports dyspnea, Denies cough Gastrointestinal: Denies abdominal pain, Denies diarrhea, Denies nausea, Denies vomiting Musculoskeletal: Denies myalgias Integumentary: Denies pruritus, Denies rash Neurological: Reports confusion, Reports convulsions, Reports headaches, Reports memory loss, Reports paresthesias, Reports tremors, Denies numbness, Denies weakness Psychiatric: Reports disorientation, Denies anxiety, Denies depression Endocrine: Denies fatigue, Denies weight change Past Medical History Past Medical History: Coronary Artery Disease (CAD), Chest Pain / Angina, COPD, Diabetes Mellitus, GERD/Reflux, Hyperlipidemia, Hypertension, Liver Disease, Osteoarthritis (OA), Renal Disease, Respiratory Disorder, Sleep Apnea/CPAP/BIPAP Additional Past Medical History / Comment(s): 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 Chronic kidney disease due to Diabetes, last received hemodialysis 03/31/17. Has been on hemodialysis X3 weeks. Pt states chronic low platelets and usually needs platelets prior to surgical procedures. Peritoneal dialysis catheter being removed because it is not functioning properly. History of Any Multi-Drug Resistant Organisms: None Reported Past Surgical History: Appendectomy, Back Surgery, Cholecystectomy, Heart Catheterization, Heart Catheterization With Stent Additional Past Surgical History / Comment(s): Tracheostomy, bladder stone removal, anterior cervical disc fusion, dialysis catheter insertion 12/27/16, jugular catheter insertion. Past Anesthesia/Blood Transfusion Reactions: No Reported Reaction Date of Last Stent Placement:: 2012 Past Psychological History: Anxiety, Depression Smoking Status: Former smoker Past Alcohol Use History: None Reported Past Drug Use History: None Reported - Past Family History Father Family Medical History: Coronary Artery Disease (CAD) Mother Family Medical History: Coronary Artery Disease (CAD) Brother(s) Family Medical History: Cancer Daughter(s) Family Medical History: Vascular Disorder (VSD) Medications and Allergies Home Medications Medication Instructions Recorded Confirmed Type Atorvastatin Calcium [Lipitor] 80 mg PO HS #30 tab 03/01/14 06/02/17 Rx ARIPiprazole [Abilify] 5 mg PO DAILY 12/26/16 06/02/17 History Bumetanide [BUMEX] 2 mg PO BID 12/26/16 06/02/17 History Carvedilol [Coreg] 25 mg PO BID 12/26/16 06/02/17 History DULoxetine HCL [Cymbalta] 60 mg PO DAILY 12/26/16 06/02/17 History Insulin Glargine [Lantus] 20 unit SQ DAILY 12/26/16 06/02/17 History amLODIPine BESYLATE [Norvasc] 5 mg PO BID 12/26/16 06/01/17 History Lisinopril [Zestril] 10 mg PO DAILY 06/01/17 06/01/17 History Nitroglycerin Sl Tabs [Nitrostat] 0.4 mg SUBLINGUAL Q5M PRN 06/01/17 06/01/17 History Omeprazole [PriLOSEC] 20 mg PO DAILY 06/01/17 06/02/17 History Cholecalciferol (Vitamin D3) 2,000 unit PO DAILY 06/02/17 06/02/17 History [Vitamin D3] Insulin Aspart [Novolog Flexpen] 20 unit SQ AC-TID 06/02/17 06/02/17 History Allergies Allergy/AdvReac Type Severity Reaction Status Date / Time No Known Allergies Allergy Verified 06/01/17 14:19 Physical Examination - Vital Signs Vital Signs: Vital Signs Temp Pulse Resp BP BP Pulse Ox 06/02/17 09:39 158/50 06/02/17 08:40 212/74 06/02/17 08:38 98.3 F 64 16 234/103 98 06/02/17 02:11 63 157/73 06/02/17 00:18 60 182/81 06/01/17 22:15 97.6 F 59 L 16 174/75 95 06/01/17 20:03 65 182/84 06/01/17 16:41 97.0 F L 56 L 156/78 97 Intake and Output 06/02/17 06/02/17 06/02/17 06:59 14:59 22:59 Intake Total 240 Balance 240 Intake: Oral 240 Other: # Voids 1 - Constitutional General appearance: average body habitus - EENT EENT: PERRL, mucous membranes moist - Respiratory Respiratory: lungs clear, normal breath sounds - Cardiovascular Cardiovascular: regular rate, normal S1, normal S2 Extremities: no peripheral edema bilaterally - Gastrointestinal Gastrointestinal: normoactive bowel sounds - Integumentary Integumentary: normal - Neurologic Cranial nerve examination: PERRL, EOMI, VFF, V1/V2/V3 grossly intact, face symmetric, intact gag reflex, intact corneal reflex, normal palatal elevation Speech examination: intact Sensorimotor examination: intact Detailed motor examination: grossly full strength in all extremities Motor examination - right side: 4/5: biceps, triceps, wrist flexion, wrist extension, carrot tier, hip flexors, knee extensors, dorsiflexion, toe extension (EHL) , plantarflexion Motor examination - left side: 4/5: biceps, triceps, wrist flexion, wrist extension, carrot tier, hip flexors, knee extensors, dorsiflexion, toe extension (EHL) , plantarflexion Detailed sensory examination: intact Reflex and gait examination: intact Reflexes: 1+: ankle, bicep, knee, tricep - Musculoskeletal Musculoskeletal: no pain - Psychiatric Psychiatric: mood/affect appropriate, cooperative Results - Laboratory Findings CBC and BMP: 06/02/17 03:10 06/02/17 07:35 Abnormal Lab Findings: Abnormal Labs 06/01/17 06/01/17 06/01/17 11:48 11:48 20:27 RBC 3.58 L Hgb 11.7 L D Hct 33.5 L RDW 16.0 H Plt Count 42 L* Lymphocytes # BUN 48 H Creatinine 3.55 H Glucose 262 H POC Glucose (mg/dL) 435 H Hemoglobin A1c Calcium 7.0 L Total Bilirubin 1.5 H AST 16 L Total Protein 4.9 L Albumin 2.8 L 06/02/17 06/02/17 06/02/17 02:09 03:10 03:10 RBC 3.38 L Hgb 11.4 L Hct 32.4 L RDW 16.2 H Plt Count 38 L* Lymphocytes # 0.7 L BUN Creatinine Glucose POC Glucose (mg/dL) 247 H Hemoglobin A1c 6.8 H Calcium Total Bilirubin AST Total Protein Albumin 06/02/17 06/02/17 06/02/17 07:15 07:35 11:06 RBC Hgb Hct RDW Plt Count Lymphocytes # BUN 58 H Creatinine 3.46 H Glucose 187 H POC Glucose (mg/dL) 189 H 160 H Hemoglobin A1c Calcium 7.2 L Total Bilirubin 1.5 H AST Total Protein 5.1 L Albumin 2.9 L Assessment and Plan (1) Dialysis disequilibrium syndrome Status: Acute Code(s): E87.8 - OTH DISORDERS OF ELECTROLYTE AND FLUID BALANCE , NEC (2) Myoclonus Status: Acute Code(s): G25.3 - MYOCLONUS (3) Acute encephalopathy Status: Acute Code(s): G93.40 - ENCEPHALOPATHY, UNSPECIFIED (4) Acute on chronic renal failure Status: Acute Code(s): N17.9 - ACUTE KIDNEY FAILURE, UNSPECIFIED; N18.9 - CHRONIC KIDNEY DISEASE, UNSPECIFIED Plan: This patient is a 56-year-old male who is a patient of Dr. Lang. Patient has a history of diabetes mellitus type 2 and had developed diabetic nephropathy. He was started on hemodialysis 2 weeks ago. He has been having difficulty with his dialysis postprocedure status in that he becomes very confused and disoriented. Apparently yesterday he showed signs of severe involuntary dystonic movements of both upper and lower extremities felt to be suggesting acute dystonia. He was treated with Valium and transferred to the [facility] for further evaluation. The patient states that he has been having symptoms of disorientation as well as tremors associated postdialysis. His clinical history suggests possibility of dialysis disequilibrium syndrome. He is noted to have uncontrolled hypertension which is also being addressed. Due to the possibility of dystonic reaction his Abilify and Cymbalta have been discontinued. The patient will undergo EEG testing tomorrow for further evaluation. We have also recommended MRI of the brain for further assessment. CAT scan of the brain was reported negative. The patient's was at bedside. Apparently most of the day today he has been doing better with no evidence of myoclonic jerks. Due to his new treatment with hemodialysis he may be experiencing some asterixis causing some of the jerky movement movements. Doubt that these are seizure-like but we will obtain routine EEG for further assessment. According to the patient these episodes were occurring every 30 seconds on his day of admission. Since admission from yesterday he seems to be doing better today. We will continue close neurological follow-up with this patient and we'll await further recommendations from nephrology. His overall prognosis at this time remains guarded. Case was discussed with the patient and his at bedside. All of their questions were answered. They' are aware of our treatment plan. Time with Patient: Greater than 30
[2017-06-03 07:17] LABS: Glucose,Whole Blood 234 mg/dL (75-99)
[2017-06-03 07:19] VITALS: BP 144/68; RESP 16; TEMP 98.6
[2017-06-03 07:44] LABS: CH 33.1; CHCM 34.6; HCT 33.7 % (39.0-53.0); HDW 3.59; HGB 11.2 gm/dL (13.0-17.5); MCHC 33.3 g/dL (31.0-37.0); Mean Platelet Volume 8.9; Poikilocytosis Slight; RBC 3.51 m/uL (4.30-5.90); RDW 15.9 % (11.5-15.5); WBC 6.9 k/uL (3.8-10.6)
[2017-06-03] MEDS: CARVEDILOL 12.5 MG TAB PO SCH (07:44)
[2017-06-03] MEDS: PANTOPRAZOLE 40 MG TABLET PO SCH (07:44)
[2017-06-03] MEDS: amLODIPine 5 MG TAB PO SCH (07:45)
[2017-06-03] MEDS: hydrALAZINE HCL 50 MG TAB PO SCH (07:45)
[2017-06-03] MEDS: MORPHINE SULFATE ER 30 MG TABLET PO SCH (07:45)
[2017-06-03] MEDS: LISINOPRIL 20 MG TAB PO SCH (07:45)
[2017-06-03] MEDS: SPIRONOLACTONE 25 MG TAB PO SCH (07:45)
[2017-06-03] MEDS: INSULIN LISPRO (humaLOG) 300 UNIT/3 ML VIAL SQ SCH ×4 (07:50→13:50)
[2017-06-03 07:59] LABS: Potassium 5.1 mmol/L (3.5-5.1)
[2017-06-03 10:41] VITALS: PULSE 62
[2017-06-03 11:48] LABS: Glucose,Whole Blood 202 mg/dL (75-99)
[2017-06-03 12:53] LABS: Hepatitis B Surface Antibody Non-Reactive (Non-Reactive)
--- NOTE | 2017-06-03 20:52 | PN ---
PROGRESS NOTE Patient is seen for followup for end-stage renal disease. He was admitted to the hospital with severe uncontrolled hypertension and anxiety, which seems to have improved. The patient's is sitting at bedside. I have had a long discussion regarding renal replacement therapy, including transplantation. They have been given choices for different transplant centers. EXAMINATION: Blood pressure was 144/68, heart rate 95 per minute. Patient is afebrile. HEART: S1, S2. LUNGS: Bilateral breath sounds are heard. ABDOMEN: Soft, nontender. Lower extremities show no significant edema. RETAIL SERVICE TECHNICIAN: Grossly intact. LABS: Show sodium of 138, potassium 5.1. Hemoglobin 11.2 g/dL. ASSESSMENT: 1. End-stage renal disease, on hemodialysis on a Friday, Friday, Friday schedule. The patient will be dialyzed tomorrow. If he is discharged today, he will come for his regular outpatient treatment tomorrow. 2. Chronic thrombocytopenia. 3. Uncontrolled hypertension, currently much better controlled. Patient is advised to continue his current medications. 4. Chronic kidney disease bone mineral disorder. 5. Anxiety disorder. PLAN: Patient can be discharged from nephrology standpoint. He will follow up as outpatient tomorrow. MMODL / IJN: [id number] /
--- NOTE | 2017-06-03 23:13 | EEG ---
ELECTROENCEPHALOGRAM REPORT DATE OF EE06/03/2017. REFERRING PHYSICIAN: Dr. Webb. INTERPRETING PHYSICIAN: Dr. Alvarado Nguyễn MD. INDICATION FOR EXAMINATION: This patient is a 56-year-old male being evaluated for myoclonus versus possible seizures. AGE: 56. EEG FINDINGS: A routine 21-channel awake digital EEG recording was accomplished utilizing the 10-20 international system with bipolar and referential montages. The background activity in the most alert resting state consists of a low to medium amplitude, poorly developed and poorly sustained 5-6 Hz activity over the posterior head regions. This posterior rhythm attenuates to eye opening. There is a small amount of low amplitude 18-20 Hz beta activity seen maximally over the anterior head regions. Muscle and movement artifact was observed on a few occasions during the tracing. Hyperventilation was not performed. Photic stimulation at flash frequencies of 2-30 Hz produced a minimal occipital driving response. No epileptiform discharges were seen. IMPRESSION: This EEG is moderately abnormal in a diffuse fashion due to slowing of the EEG background. The EEG failed to reveal any focal, lateralized or epileptiform abnormalities. If clinically indicated, a followup EEG is recommended. Clinical correlation is recommended. MMODL / IJN: [id number] /
--- NOTE | 2017-06-04 10:09 | P.DS ---
Providers Date of admission: 06/01/17 14:09 Expected date of discharge: 06/03/17 Attending physician: Audie Webb Consults: 06/01/17 14:07 Consult Physician Routine Consulting Provider: Alvarado Nguyễn Consult Reason/Comments: Seizure-like activity Do you want consulting provider notified?: Yes 06/01/17 21:12 Consult Physician Routine Consulting Provider: Marion Garcia Consult Reason/Comments: hemodialysis patient Do you want consulting provider notified?: Yes, Notify in am Primary care physician: Gonzales Drew [facility] Hospital Course: This is a 56 Year-Old male one of patient with a previous medical history significant for CAD post PCI and stenting of the RCA x3 stents, also hypertension and hypertensive cardiovascular disease, hyperlipidemia, diabetes mellitus type 2 and diabetic neuropathy with remote history of alcohol abuse and splenomegaly causing thrombocytopenia, patient was started recently on HD with ultrfiltration through a Perma-Cath that was placed in the right IJ in about december of this year, patient was brought into the Emergency department at [facility] because of involunatry dystonic movement of upper and lower extremities that was so severe to the degree it made him hold his breath , he missed his dialysis yesterday, and his called EMS in route to the hospital he received valium 5 mg and here in the ER did receive multiple doses of Lorazepam so he aborted the dystonic reaction, and patient was kept in the hospital for possible seizure, with neurology consultation and nephrology consultation. 06/02: Patient's blood pressure was elevated this morning and he has been resumed back on his home medications including Coreg and hydralazine has also been added. Neuro consult has been pending. Patient has been seen and followed by Dr. Garcia from nephrology. She has added and spironolactone. Platelet count is currently at 38 thought to be secondary to bone marrow suppression from alcohol abuse. Blood culture showing no growth at 24 hours. 06/03: Patient has been seen by Dr. Nguyễn with plan for EEG. Noted the patient did receive a dose of Abilify yesterday morning and this is been subsequently discontinued. Cymbalta has been discontinued since admission. Discussed medication with the patient and his daughter and patient will be placed back on Paxil. Apparently patient took this medication for a long period of time but was taken off it a while ago. Recommended follow-up with psychiatrist and he has seen Dr. Leatha Cooper in the past. Patient denies suicidal ideation and denies hallucination. He denies chest pain headache shortness of breath. Blood culture showing no growth at 48 hours. Hepatitis B is negative. Patient will be discharged home today in stable condition. Discharge diagnoses: 1. Dystonic reaction possibly medication side effects due to Aripiprazole. 2. CAD post PCI of the RCA. 3. ESRD was just started on HD with ultrafiltration. 4. Hypertension and hypertensive cardiovascular disease with reported Accelerated hypertension. 5. Diabetes Mellitus type 2. 6. 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 7. Anxiety, generalized and recurrent depression. 8. PAD. 9. Hyperlipidemia. 10. Diabetic Neuropathy. 11. Degenerative disc disease of the Cervical spine S/P ACDF. Discharge plan: Return home Impression and plan of care have been directed as dictated by the signing physician. Iram Love nurse practitioner acting as scribe for signing physician. Patient Condition at Discharge: Good Plan - Discharge Summary New Discharge Prescriptions: New Citalopram Hydrobromide [CeleXA] 20 mg PO DAILY #30 tablet hydrALAZINE HCL [Apresoline] 50 mg PO TID #90 tab HYDROcodone/APAP 10-325MG [[place] 10-325] 1 each PO TID PRN tab PRN Reason: Pain Lisinopril [Zestril] 20 mg PO BID #60 tab Morphine Sulfate ER [Ms Contin] 30 mg PO BID tab Spironolactone [Aldactone] 50 mg PO DAILY #60 tab Continue Atorvastatin Calcium [Lipitor] 80 mg PO HS #30 tab amLODIPine BESYLATE [Norvasc] 5 mg PO BID Carvedilol [Coreg] 25 mg PO BID Omeprazole [PriLOSEC] 20 mg PO DAILY Nitroglycerin Sl Tabs [Nitrostat] 0.4 mg SUBLINGUAL Q5M PRN PRN Reason: Chest Pain Cholecalciferol (Vitamin D3) [Vitamin D3] 2,000 unit PO DAILY Bumetanide [BUMEX] 2 mg PO BID #0 Changed Insulin Aspart [NovoLOG Flexpen] 9 unit SQ AC-TID #0 Insulin Glargine [Lantus] 27 unit SQ DAILY #0 Discontinued ARIPiprazole [Abilify] 5 mg PO DAILY DULoxetine HCL [Cymbalta] 60 mg PO DAILY Lisinopril [Zestril] 10 mg PO DAILY Discharge Medication List Atorvastatin Calcium [Lipitor] 80 mg PO HS #30 tab 03/01/14 [Rx] Carvedilol [Coreg] 25 mg PO BID 12/26/16 [History] amLODIPine BESYLATE [Norvasc] 5 mg PO BID 12/26/16 [History] Nitroglycerin Sl Tabs [Nitrostat] 0.4 mg SUBLINGUAL Q5M PRN 06/01/17 [History] Omeprazole [PriLOSEC] 20 mg PO DAILY 06/01/17 [History] Cholecalciferol (Vitamin D3) [Vitamin D3] 2,000 unit PO DAILY 06/02/17 [History] Bumetanide [BUMEX] 2 mg PO BID #0 06/03/17 [Rx] Citalopram Hydrobromide [CeleXA] 20 mg PO DAILY #30 tablet 06/03/17 [Rx] HYDROcodone/APAP 10-325MG [[place] 10-325] 1 each PO TID PRN tab 06/03/17 [Rx] Insulin Aspart [NovoLOG Flexpen] 9 unit SQ AC-TID #0 06/03/17 [Rx] Insulin Glargine [Lantus] 27 unit SQ DAILY #0 06/03/17 [Rx] Lisinopril [Zestril] 20 mg PO BID #60 tab 06/03/17 [Rx] Morphine Sulfate ER [Ms Contin] 30 mg PO BID tab 06/03/17 [Rx] Spironolactone [Aldactone] 50 mg PO DAILY #60 tab 06/03/17 [Rx] hydrALAZINE HCL [Apresoline] 50 mg PO TID #90 tab 06/03/17 [Rx] Follow up Appointment(s)/Referral(s): Gonzales Drew MD [Primary Care Provider] - 06/12/17 1:00 pm Patient Instructions/Handouts: Spironolactone (By mouth), Lisinopril (By mouth) , Hydralazine (By mouth), Citalopram (By mouth), Chronic Kidney Disease (DC) Discharge Disposition: HOME SELF-CARE
== END 2017-06-03 15:15 | disposition home or self-care (01) | DRG 91 ==
LOC: EC 11:17 → 5MS5E 14:09
PROVIDERS: ADMIT Internal Medicine; ATTEND Internal Medicine
PROC: 5A1D70Z Performance of Urinary Filtration, Intermittent, Less than 6 Hours Per Day (ICD-10-PCS; principal; 2017-06-02)
DX: G24.09 Other drug induced dystonia (principal); G93.40 Encephalopathy, unspecified; N18.6 End stage renal disease; N17.9 Acute kidney failure, unspecified; I13.11 Hypertensive heart and chronic kidney disease without heart failure, with stage 5 chronic kidney disease, or end stage renal disease; F33.9 Major depressive disorder, recurrent, unspecified; D69.6 Thrombocytopenia, unspecified; E11.22 Type 2 diabetes mellitus with diabetic chronic kidney disease; E11.40 Type 2 diabetes mellitus with diabetic neuropathy, unspecified; E11.51 Type 2 diabetes mellitus with diabetic peripheral angiopathy without gangrene; G25.3 Myoclonus; R16.1 Splenomegaly, not elsewhere classified; E83.9 Disorder of mineral metabolism, unspecified; K76.0 Fatty (change of) liver, not elsewhere classified; T43.595A Adverse effect of other antipsychotics and neuroleptics, initial encounter; E78.5 Hyperlipidemia, unspecified; F41.1 Generalized anxiety disorder; G47.30 Sleep apnea, unspecified; I25.10 Atherosclerotic heart disease of native coronary artery without angina pectoris; J44.9 Chronic obstructive pulmonary disease, unspecified; K21.9 Gastro-esophageal reflux disease without esophagitis; M50.30 Other cervical disc degeneration, unspecified cervical region; M19.90 Unspecified osteoarthritis, unspecified site; I83.90 Asymptomatic varicose veins of unspecified lower extremity; Z79.4 Long term (current) use of insulin; Z79.899 Other long term (current) drug therapy; Z95.5 Presence of coronary angioplasty implant and graft; Z99.2 Dependence on renal dialysis; Z87.891 Personal history of nicotine dependence; Z98.1 Arthrodesis status; Z82.49 Family history of ischemic heart disease and other diseases of the circulatory system; Y92.009 Unspecified place in unspecified non-institutional (private) residence as the place of occurrence of the external cause
CPT/HCPCS: 36415; 70450; 71020; 80048; 80053; 83036; 83605; 83690; 83735; 83880; 84484; 85025; 85027; 85610; 85730; 86705; 86706; 87040; 87340; 90935; 93005; 95819; 96374; 99285

== ENCOUNTER 2017-07-06 18:51 | Inpatient (IN) | payer MEDICARE ==
[2017-07-06 19:21] LABS: Glucose,Whole Blood 145 mg/dL (75-99)
--- NOTE | 2017-07-06 19:37 | ED ---
Altered Mental Status HPI - General Chief Complaint: Altered Mental Status Stated Complaint: Tingling in toes, slurred speech Time Seen by Provider: 07/06/17 19:15 Source: family Mode of arrival: wheelchair Limitations: no limitations, altered mental status - History of Present Illness Initial Comments: This patient is a 56-year-old man who presents to be evaluated for confusion which has been going on since he got up this morning around 8 AM. The patient denies other complaints. He does note that he had a heart catheterization through his right radial artery on . Patient states she had been doing well, including going for his normal dialysis session on Friday. The patient denies chest pain, headache, back or abdominal pain. Patient denies neurologic symptoms. MD Complaint: altered mental status, confusion Onset/Timin -: hour(s) Consistency of Symptoms: getting worse Associated Symptoms: denies other symptoms - Related Data Home Medications Medication Instructions Recorded Confirmed Carvedilol [Coreg] 25 mg PO BID 12/26/16 07/06/17 amLODIPine BESYLATE [Norvasc] 5 mg PO BID 12/26/16 07/06/17 Nitroglycerin Sl Tabs [Nitrostat] 0.4 mg SUBLINGUAL Q5M PRN 06/01/17 07/06/17 Omeprazole [PriLOSEC] 20 mg PO DAILY 06/01/17 07/06/17 Cholecalciferol (Vitamin D3) 2,000 unit PO DAILY 06/02/17 07/06/17 [Vitamin D3] ARIPiprazole [Abilify] 5 mg PO DAILY 07/06/17 07/06/17 Citalopram Hydrobromide [CeleXA] 40 mg PO DAILY 07/06/17 07/06/17 HYDROcodone/APAP 10-325MG [[place] 1 tab PO TID PRN 07/06/17 07/06/17 10-325] Previous Rx's Medication Instructions Recorded Atorvastatin Calcium [Lipitor] 80 mg PO HS #30 tab 03/01/14 Bumetanide [BUMEX] 2 mg PO BID #0 06/03/17 Insulin Aspart [NovoLOG Flexpen] 9 unit SQ AC-TID #0 06/03/17 Insulin Glargine [Lantus] 27 unit SQ DAILY #0 06/03/17 Lisinopril [Zestril] 20 mg PO BID #60 tab 06/03/17 Morphine Sulfate ER [Ms Contin] 30 mg PO BID tab 06/03/17 Spironolactone [Aldactone] 50 mg PO DAILY #60 tab 06/03/17 hydrALAZINE HCL [Apresoline] 50 mg PO TID #90 tab 06/03/17 Allergies Allergy/AdvReac Type Severity Reaction Status Date / Time No Known Allergies Allergy Verified 07/06/17 19:43 Review of Systems ROS Statement: Those systems with pertinent positive or pertinent negative responses have been documented in the HPI. ROS Other: All systems not noted in ROS Statement are negative. Limitations: ROS unobtainable due to patients medical condition Constitutional: Reports: chills, weakness. 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 Chronic kidney disease due to Diabetes, last received hemodialysis 03/31/17. Has been on hemodialysis X3 weeks. Pt states chronic low platelets and usually needs platelets prior to surgical procedures. Peritoneal dialysis catheter being removed because it is not functioning properly. History of Any Multi-Drug Resistant Organisms: None Reported Past Surgical History: Appendectomy, Back Surgery, Cholecystectomy, Heart Catheterization, Heart Catheterization With Stent Additional Past Surgical History / Comment(s): Tracheostomy, bladder stone removal, anterior cervical disc fusion, dialysis catheter insertion 12/27/16, jugular catheter insertion. Past Anesthesia/Blood Transfusion Reactions: No Reported Reaction Date of Last Stent Placement:: 2012 Past Psychological History: Anxiety, Depression Smoking Status: Former smoker Past Alcohol Use History: None Reported Past Drug Use History: None Reported - Past Family History Father Family Medical History: Coronary Artery Disease (CAD) Mother Family Medical History: Coronary Artery Disease (CAD) Brother(s) Family Medical History: Cancer Daughter(s) Family Medical History: Vascular Disorder (VSD) General Exam Limitations: no limitations, altered mental status General appearance: alert, in no apparent distress Head exam: Present: atraumatic, normocephalic Eye exam: Present: conjunctival injection. Absent: scleral icterus ENT exam: Present: mucous membranes dry Neck exam: Present: normal inspection Respiratory exam: Present: normal lung sounds bilaterally, other (There is a dialysis catheter in the right chest wall. No erythema, tenderness or discharge.). Absent: respiratory distress, wheezes, rales, rhonchi, stridor Cardiovascular Exam: Present: regular rate, normal rhythm, normal heart sounds. Absent: systolic murmur, diastolic murmur, rubs, gallop GI/Abdominal exam: Present: soft. Absent: distended, tenderness, guarding, rebound, rigid, mass Extremities exam: Present: normal inspection, normal capillary refill. Absent: pedal edema, calf tenderness Neurological exam: Present: alert, CN II-XII intact. Absent: motor sensory deficit Skin exam: Present: warm, dry, intact, normal color. Absent: rash Course Vital Signs 07/06/17 07/06/17 07/06/17 18:54 19:34 20:00 Temperature 101.9 F H Pulse Rate 87 76 82 Respiratory 20 18 16 Rate Blood Pressure 125/59 149/69 149/69 O2 Sat by Pulse 86 L 96 95 Oximetry 07/06/17 07/06/17 07/06/17 20:30 21:25 21:56 Temperature 98.6 F Pulse Rate 76 81 84 Respiratory 16 16 16 Rate Blood Pressure 151/66 150/60 150/63 O2 Sat by Pulse 95 97 97 Oximetry 07/06/17 07/06/17 23:03 23:08 Temperature Pulse Rate 80 78 Respiratory 16 16 Rate Blood Pressure 174/75 155/88 O2 Sat by Pulse 96 97 Oximetry Medical Decision Making - Medical Decision Making This patient is a 56-year-old man with end-stage renal disease who presents with fever and mental status changes. Initially patient appears septic. Patient started on broad-spectrum antibiotic coverage. No initial focus of infection found and suspect possible dialysis catheter infection therefore patient has vancomycin added. Discussed with admitting physician area - Lab Data Result diagrams: 07/06/17 19:30 07/06/17 19:30 Lab Results 07/06/17 07/06/17 07/06/17 Range/Units 19:08 19:30 19:30 WBC 7.4 (3.8-10.6) k/uL RBC 3.48 L (4.30-5.90) m/uL Hgb 11.6 L (13.0-17.5) gm/dL Hct 33.9 L (39.0-53.0) % MCV 97.7 (80.0-100.0) fL MCH 33.5 (25.0-35.0) pg MCHC 34.3 (31.0-37.0) g/dL RDW 17.1 H (11.5-15.5) % Plt Count 70 L D (150-450) k/uL Neutrophils % 81 % Lymphocytes % 13 % Monocytes % 4 % Eosinophils % 1 % Basophils % 1 % Neutrophils # 6.0 (1.3-7.7) k/uL Lymphocytes # 1.0 (1.0-4.8) k/uL Monocytes # 0.3 (0-1.0) k/uL Eosinophils # 0.1 (0-0.7) k/uL Basophils # 0.0 (0-0.2) k/uL Manual Slide Review Performed Hyperchromasia Slight Poikilocytosis Moderate Anisocytosis Slight Macrocytosis Slight PT (9.0-12.0) sec INR (<1.2) APTT (22.0-30.0) sec Sodium 137 (137-145) mmol/L Potassium 4.9 (3.5-5.1) mmol/L Chloride 99 (98-107) mmol/L Carbon Dioxide 29 (22-30) mmol/L Anion Gap 9 mmol/L BUN 43 H (9-20) mg/dL Creatinine 6.60 H* (0.66-1.25) mg/dL Est GFR (MDRD) Af Amer 11 (>60 ml/min/1.73 sqM) Est GFR (MDRD) Non-Af 9 (>60 ml/min/1.73 sqM) Glucose 146 H (74-99) mg/dL POC Glucose (mg/dL) 145 H (75-99) mg/dL POC Glu Embedded Software Architect ID Silvina Portillo Plasma Lactic Acid Wicho (0.7-2.0) mmol/L Calcium 7.5 L (8.4-10.2) mg/dL Total Bilirubin 1.4 H (0.2-1.3) mg/dL AST 21 (17-59) U/L ALT 36 (21-72) U/L Alkaline Phosphatase 54 (38-126) U/L Ammonia (<30) umol/L Creatine Kinase (55-170) U/L Troponin I (0.000-0.034) ng/mL Total Protein 5.3 L (6.3-8.2) g/dL Albumin 3.1 L (3.5-5.0) g/dL 07/06/17 07/06/17 07/06/17 Range/Units 19:30 19:30 19:30 WBC (3.8-10.6) k/uL RBC (4.30-5.90) m/uL Hgb (13.0-17.5) gm/dL Hct (39.0-53.0) % MCV (80.0-100.0) fL MCH (25.0-35.0) pg MCHC (31.0-37.0) g/dL RDW (11.5-15.5) % Plt Count (150-450) k/uL Neutrophils % % Lymphocytes % % Monocytes % % Eosinophils % % Basophils % % Neutrophils # (1.3-7.7) k/uL Lymphocytes # (1.0-4.8) k/uL Monocytes # (0-1.0) k/uL Eosinophils # (0-0.7) k/uL Basophils # (0-0.2) k/uL Manual Slide Review Hyperchromasia Poikilocytosis Anisocytosis Macrocytosis PT 10.6 (9.0-12.0) sec INR 1.0 (<1.2) APTT 22.7 (22.0-30.0) sec Sodium (137-145) mmol/L Potassium (3.5-5.1) mmol/L Chloride (98-107) mmol/L Carbon Dioxide (22-30) mmol/L Anion Gap mmol/L BUN (9-20) mg/dL Creatinine (0.66-1.25) mg/dL Est GFR (MDRD) Af Amer (>60 ml/min/1.73 sqM) Est GFR (MDRD) Non-Af (>60 ml/min/1.73 sqM) Glucose (74-99) mg/dL POC Glucose (mg/dL) (75-99) mg/dL POC Glu Embedded Software Architect ID Plasma Lactic Acid Wicho 0.6 L (0.7-2.0) mmol/L Calcium (8.4-10.2) mg/dL Total Bilirubin (0.2-1.3) mg/dL AST (17-59) U/L ALT (21-72) U/L Alkaline Phosphatase (38-126) U/L Ammonia (<30) umol/L Creatine Kinase (55-170) U/L Troponin I 0.066 H* (0.000-0.034) ng/mL Total Protein (6.3-8.2) g/dL Albumin (3.5-5.0) g/dL 07/06/17 07/06/17 07/06/17 Range/Units 19:30 20:48 21:33 WBC (3.8-10.6) k/uL RBC (4.30-5.90) m/uL Hgb (13.0-17.5) gm/dL Hct (39.0-53.0) % MCV (80.0-100.0) fL MCH (25.0-35.0) pg MCHC (31.0-37.0) g/dL RDW (11.5-15.5) % Plt Count (150-450) k/uL Neutrophils % % Lymphocytes % % Monocytes % % Eosinophils % % Basophils % % Neutrophils # (1.3-7.7) k/uL Lymphocytes # (1.0-4.8) k/uL Monocytes # (0-1.0) k/uL Eosinophils # (0-0.7) k/uL Basophils # (0-0.2) k/uL Manual Slide Review Hyperchromasia Poikilocytosis Anisocytosis Macrocytosis PT (9.0-12.0) sec INR (<1.2) APTT (22.0-30.0) sec Sodium (137-145) mmol/L Potassium (3.5-5.1) mmol/L Chloride (98-107) mmol/L Carbon Dioxide (22-30) mmol/L Anion Gap mmol/L BUN (9-20) mg/dL Creatinine (0.66-1.25) mg/dL Est GFR (MDRD) Af Amer (>60 ml/min/1.73 sqM) Est GFR (MDRD) Non-Af (>60 ml/min/1.73 sqM) Glucose (74-99) mg/dL POC Glucose (mg/dL) 126 H (75-99) mg/dL POC Glu Embedded Software Architect ID John Mariano Plasma Lactic Acid Wicho (0.7-2.0) mmol/L Calcium (8.4-10.2) mg/dL Total Bilirubin (0.2-1.3) mg/dL AST (17-59) U/L ALT (21-72) U/L Alkaline Phosphatase (38-126) U/L Ammonia 11 (<30) umol/L Creatine Kinase 26 L (55-170) U/L Troponin I (0.000-0.034) ng/mL Total Protein (6.3-8.2) g/dL Albumin (3.5-5.0) g/dL - EKG Data -: EKG Interpreted by Nv EKG shows normal: sinus rhythm (Rate approximately 80 bpm), axis (Normal), intervals (Normal), ST-T waves (Normal) Rate: normal Interpretation: other (Possible old anterior infarct. The EKG is similar to the parents and from June 01, 2017) Disposition Clinical Impression: Altered mental status, Sepsis Disposition: ADMITTED IP TO THIS HOSP Condition: Serious
[2017-07-06 20:16] LABS: Calcium 7.5 mg/dL (8.4-10.2); Potassium 4.9 mmol/L (3.5-5.1); Total Bilirubin 1.4 mg/dL (0.2-1.3); Total Protein 5.3 g/dL (6.3-8.2)
[2017-07-06 20:23] LABS: Anisocytosis Slight; Basophils % (A) 1 %; CH 34.6; CHCM 35.8; Eosinophils # (A) 0.1 k/uL (0-0.7); Eosinophils % (A) 1 %; HCT 33.9 % (39.0-53.0); HDW 4.26; HGB 11.6 gm/dL (13.0-17.5); Hyperchromasia Slight; Luc # (Auto) 0.07; Luc % (Auto) 1; Lymphocytes % (A) 13 %; MCH 33.5 pg (25.0-35.0); MCHC 34.3 g/dL (31.0-37.0); MCV 97.7 fL (80.0-100.0); Macrocytosis Slight; Mean Platelet Volume 7.7; Monocytes # (A) 0.3 k/uL (0-1.0); Monocytes % (A) 4 %; Neutrophils % (A) 81 %; Partial Thromboplastin Time 22.7 sec (22.0-30.0); Poikilocytosis Moderate; Prothrombin Time 10.6 sec (9.0-12.0); RBC 3.48 m/uL (4.30-5.90); RDW 17.1 % (11.5-15.5); WBC 7.4 k/uL (3.8-10.6); WBC (Perox) 7.74
[2017-07-06] MEDS ORDERED: PIPERACILLIN-TAZOBACTAM 3.375 GM in DEXTROSE/WATER 1 50ML.BAG IVPB STA (20:40)
[2017-07-06] MEDS ORDERED: VANCOMYCIN IV PER PHARMACY 1 EACH MISC MISCELLANE PRN (20:41)
[2017-07-06] MEDS ORDERED: VANCOMYCIN 1,500 MG in SODIUM CHLORIDE 0.9% 250 ML IVPB STA (20:44)
[2017-07-06 20:59] LABS: Manual Review Performed
--- NOTE | 2017-07-06 21:03 | XR ---
EXAMINATION TYPE: XR chest 1V portable DATE OF EXAM: 07/06/2017 COMPARISON: 06/01/2017 INDICATION: Fever TECHNIQUE: Single frontal view of the chest is obtained. FINDINGS: The heart size is normal. The pulmonary vasculature is somewhat prominent. The lungs are clear. Double-lumen catheter is present on the right with the tips in the superior vena cava region. IMPRESSION: 1. Mild vascular prominence. No suspicious infiltrates are evident.
[2017-07-06 21:37] LABS: Glucose,Whole Blood 126 mg/dL (75-99)
[2017-07-06] MEDS ORDERED: NALOXONE 0.4 MG/ML 1 ML VIAL IV PRN (22:43)
[2017-07-06 23:55] LABS: Glucose,Whole Blood 131 mg/dL (75-99)
[2017-07-07] MEDS ORDERED: METOPROLOL TARTRATE 5 MG/5 ML VIAL IVP PRN (00:03)
--- NOTE | 2017-07-07 00:56 | CT ---
EXAM: CT Head Without Intravenous Contrast CLINICAL HISTORY: Reason: AMS TECHNIQUE: Axial computed tomography images of the head/brain without intravenous contrast. CTDI is 59.58 mGy and DLP is 1308 mGy-cm. This CT exam was performed using one or more of the following dose reduction techniques: automated exposure control, adjustment of the mA and/or kV according to patient size, and/or use of iterative reconstruction technique. COMPARISON: No relevant prior studies available. FINDINGS: Brain: Unremarkable. No hemorrhage. No significant white matter disease. No edema. Ventricles: Unremarkable. No ventriculomegaly. Bones/joints: Unremarkable. No acute fracture. Soft tissues: Unremarkable. Sinuses: Unremarkable as visualized. No acute sinusitis. Mastoid air cells: Unremarkable as visualized. No mastoid effusion. IMPRESSION: Normal head/brain CT.
[2017-07-07 02:01] LABS: ABG Base Excess 2.4 mmol/L; ABG HCO3 30 mmol/L (21-25); ABG PCO2 87 mmHg (35-45); ABG PH 7.17 (7.35-7.45); ABG PO2 101 mmHg (83-108); ABG TCO2 33 mmol/L (19-24)
[2017-07-07 02:16] LABS: Glucose,Whole Blood 164 mg/dL (75-99)
[2017-07-07 02:20] LABS: Anisocytosis Slight; Basophils # (A) 0.1 k/uL (0-0.2); Basophils % (A) 1 %; CH 32.9; CHCM 33.7; Eosinophils # (A) 0.1 k/uL (0-0.7); Eosinophils % (A) 1 %; HCT 38.1 % (39.0-53.0); HDW 4.03; HGB 12.3 gm/dL (13.0-17.5); Hypochromasia Slight; Luc # (Auto) 0.08; Luc % (Auto) 1; Lymphocytes # (A) 0.9 k/uL (1.0-4.8); Lymphocytes % (A) 10 %; MCH 31.9 pg (25.0-35.0); MCHC 32.3 g/dL (31.0-37.0); MCV 98.6 fL (80.0-100.0); Macrocytosis Slight; Mean Platelet Volume 8.4; Monocytes # (A) 0.5 k/uL (0-1.0); Monocytes % (A) 5 %; Neutrophils % (A) 83 %; Poikilocytosis Moderate; RBC 3.87 m/uL (4.30-5.90); RDW 17.7 % (11.5-15.5); WBC 9.6 k/uL (3.8-10.6); WBC (Perox) 10.51
[2017-07-07 02:29] LABS: Calcium 7.6 mg/dL (8.4-10.2); Magnesium 2.1 mg/dL (1.6-2.3); Potassium 5.5 mmol/L (3.5-5.1); Total Bilirubin 1.4 mg/dL (0.2-1.3); Total Protein 5.6 g/dL (6.3-8.2)
[2017-07-07] MEDS ORDERED: PROPOFOL 1,000 MG/100 ML VIAL IV ONE (02:33)
[2017-07-07] MEDS ORDERED: PROPOFOL 10 MG/ML 20 ML VIAL IV ONE (02:45)
[2017-07-07] MEDS ORDERED: SUCCINYLCHOLINE CHLORIDE 100 MG/5 ML SYR IV ONE (02:45)
[2017-07-07 03:25] LABS: ABG Base Excess 1.9 mmol/L; ABG HCO3 28 mmol/L (21-25); ABG PCO2 63 mmHg (35-45); ABG PH 7.27 (7.35-7.45); ABG PO2 115 mmHg (83-108); ABG TCO2 30 mmol/L (19-24)
[2017-07-07] MEDS ORDERED: NOREPINEPHRIN 4 MG-0.9% NS PMX 4 MG/250 ML ML IV SCH (03:45)
--- NOTE | 2017-07-07 03:51 | XR ---
EXAM: XR Chest, 1 View CLINICAL HISTORY: Reason: endo tube/og tube placement TECHNIQUE: Frontal view of the chest. COMPARISON: 07/06/17 FINDINGS: Interval placement of a G-tube which is entering the stomach. Interval placement of endotracheal tube with tip located approximately 4.4 cm above the [place] in satisfactory position. No lobar consolidation or pulmonary edema. Elevation of the left hemidiaphragm noted. Stable right IJ dual-lumen catheter. No pneumothorax. Cervical spine fusion hardware noted. IMPRESSION: Interval placement of endotracheal tube and OG tube which are in satisfactory position. No lobar consolidation or pulmonary edema.
[2017-07-07] MEDS ORDERED: PROPOFOL 1,000 MG/100 ML VIAL IV SCH (04:30)
[2017-07-07 06:37] LABS: Glucose,Whole Blood 147 mg/dL (75-99)
[2017-07-07] MEDS ORDERED: INSULIN ASPART 100 UNIT/ML 1 ML 10 ML VIAL SQ SCH (07:30)
[2017-07-07 07:55] LABS: ABG Base Excess -0.6 mmol/L; ABG HCO3 24 mmol/L (21-25); ABG PCO2 44 mmHg (35-45); ABG PH 7.36 (7.35-7.45); ABG PO2 161 mmHg (83-108); ABG TCO2 26 mmol/L (19-24)
[2017-07-07] MEDS: amLODIPine 5 MG TAB PO SCH ×2 (08:44→21:19)
[2017-07-07] MEDS: BUMETANIDE 1 MG TAB PO SCH ×3 (08:45→21:19)
[2017-07-07] MEDS: CITALOPRAM HYDROBROMIDE 20 MG TAB PO SCH (08:45)
[2017-07-07] MEDS: LISINOPRIL 20 MG TAB PO SCH ×2 (08:46→21:19)
[2017-07-07] MEDS: hydrALAZINE HCL 50 MG TAB PO SCH ×3 (08:46→23:37)
[2017-07-07 08:53] LABS: Glucose,Whole Blood 126 mg/dL (75-99)
[2017-07-07] MEDS ORDERED: CHLORHEXIDINE GLUCONATE 15 ML CUP MUCOUS MEM SCH (09:00)
[2017-07-07] MEDS ORDERED: PANTOPRAZOLE 40 MG TABLET PO SCH (09:00)
[2017-07-07] MEDS ORDERED: PIPERACILLIN-TAZOBACTAM 3.375 GM in DEXTROSE/WATER 1 50ML.BAG IVPB SCH (09:00)
[2017-07-07] MEDS: SPIRONOLACTONE 25 MG TAB PO SCH (09:51)
[2017-07-07] MEDS: INSULIN DETEMIR 100 UNIT/ML 10 ML VIAL SQ SCH (09:51)
--- NOTE | 2017-07-07 10:30 | P.CNPUL ---
History of Present Illness Consult date: 07/07/17 Requesting physician: Bull Nguyen Reason for consult: hypoxemia Chief complaint: sepsis, of unknown etiology, acute hypoxic and hypercapnic resp failure History of present illness: This is a 56-year-old white male who presented to the emergency room on 2016 at around 1900 with acute change in mental status, fevers that started at around 8:00 in the morning. All history was obtained from the chart and the nursing staff, the patient is sedated and mechanically ventilated. Patient denied any other complaints. Past medical history is positive for coronary artery disease, COPD, CVA/TIA, diabetes mellitus, end-stage renal disease currently on hemodialysis Friday, hyperlipidemia, hypertension , sleep apnea on home CPAP. On presentation to the emergency department patient was found to have a fever of 101.9, hypoxemic with O2 sat 86% on room air, no signs of leukocytosis, WBC is 7.4, no significant coagulopathy or electrolyte abnormality. Creatinine was 6.6, with BUNs of 43 on admission. Lactic acid was normal at 0.6, troponin 0.066, CK 26. He had a mild elevation of total bilirubin 1.4, liver enzymes and ammonia level were within normal levels. Patient had of heart catheterization on , 07/03/2017 through the right radial artery approach, the results of which are not available at this time. CT of the head and 07/07/2017 showed no acute abnormality. EKG on 07/06/2017 showed normal sinus rhythm with a possible anterior infarct, age undetermined. Chest x-ray on 07/06/2017 showed mild vascular prominence but no infiltrates were evident. Patient was admitted to the intensive care with a diagnosis of sepsis, blood cultures, hearing culture and sputum cultures were collected and sent. Patient was initially initiated on BiPAP ventilatory support, however subsequently got intubated for severe respiratory acidosis, with a blood gas of pO2 of 101, pCO2 87, and pH of 7.17. Blood gas after intubation was repeated at 3:18 AM and showed of pO2 1:15, pCO2 of 63, and pH of 7.27 on 60% FiO2. Patient is currently seen intensive care, sedated and ventilated on mechanical ventilator with settings of assist control mode with rates of 14, tidal volume of 500, FiO2 of 60%. His repeat blood gas this morning 7:20 AM shows pO2 of 161, pCO2 44, pH of 7.36, we will make further adjustment to the vent setting, we will increase the respiratory rate to 16, decrease tidal volume to 450, and decrease FiO2 to 40%. Maintenance IV fluids is 0.9 at 50, patient did receive a fluid bolus of 1 L of crystalloids for hypotension with systolic blood pressure in the 70s post intubation at 3:00 this morning, he is on norepinephrine drip at 3 mics per minute. His urine output is diminished, with many hours below 15 mL. Patient is a chronic hemodialysis patient. Chest x-ray from this morning 07/07/[address] Otoole and showed no lobar consolidation or pulmonary edema. Endotracheal tube and OG tube are in the satisfactory position. Review of Systems All systems: negative Constitutional: Denies chills, Denies fever Eyes: denies blurred vision, denies pain Ears, nose, mouth and throat: Denies headache, Denies sore throat Cardiovascular: Denies chest pain, Denies shortness of breath Respiratory: Denies cough Gastrointestinal: Denies abdominal pain, Denies diarrhea, Denies nausea, Denies vomiting Musculoskeletal: Denies myalgias Integumentary: Denies pruritus, Denies rash Neurological: Denies numbness, Denies weakness Psychiatric: Denies anxiety, Denies depression Endocrine: Denies fatigue, Denies weight change Past Medical History Past Medical History: Coronary Artery Disease (CAD), Chest Pain / Angina, COPD, CVA/TIA, Diabetes Mellitus, GERD/Reflux, Hyperlipidemia, Hypertension, Liver Disease, Osteoarthritis (OA), Renal Disease, Respiratory Disorder, Sleep Apnea/ CPAP/BIPAP Additional Past Medical History / Comment(s): 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 Chronic kidney disease due to Diabetes, last received hemodialysis 03/31/17. Has been on hemodialysis X3 weeks. Pt states chronic low platelets and usually needs platelets prior to surgical procedures. Peritoneal dialysis catheter being removed because it is not functioning properly. History of Any Multi-Drug Resistant Organisms: None Reported Past Surgical History: Appendectomy, Back Surgery, Cholecystectomy, Heart Catheterization, Heart Catheterization With Stent Additional Past Surgical History / Comment(s): Tracheostomy, bladder stone removal, anterior cervical disc fusion, dialysis catheter insertion 12/27/16, jugular catheter insertion. Past Anesthesia/Blood Transfusion Reactions: No Reported Reaction Date of Last Stent Placement:: 2012 Past Psychological History: Anxiety, Depression Smoking Status: Former smoker Past Alcohol Use History: None Reported Past Drug Use History: None Reported - Past Family History Father Family Medical History: Coronary Artery Disease (CAD) Mother Family Medical History: Coronary Artery Disease (CAD) Brother(s) Family Medical History: Cancer Daughter(s) Family Medical History: Vascular Disorder (VSD) Medications and Allergies Home Medications Medication Instructions Recorded Confirmed Type Atorvastatin Calcium [Lipitor] 80 mg PO HS #30 tab 03/01/14 07/06/17 Rx Carvedilol [Coreg] 25 mg PO BID 12/26/16 07/06/17 History amLODIPine BESYLATE [Norvasc] 5 mg PO BID 12/26/16 07/06/17 History Nitroglycerin Sl Tabs [Nitrostat] 0.4 mg SUBLINGUAL Q5M PRN 06/01/17 07/06/17 History Omeprazole [PriLOSEC] 20 mg PO DAILY 06/01/17 07/06/17 History Cholecalciferol (Vitamin D3) 2,000 unit PO DAILY 06/02/17 07/06/17 History [Vitamin D3] Bumetanide [BUMEX] 2 mg PO BID #0 06/03/17 07/06/17 Rx Insulin Aspart [NovoLOG Flexpen] 9 unit SQ AC-TID #0 06/03/17 07/06/17 Rx Insulin Glargine [Lantus] 27 unit SQ DAILY #0 06/03/17 07/06/17 Rx Lisinopril [Zestril] 20 mg PO BID #60 tab 06/03/17 07/06/17 Rx Morphine Sulfate ER [Ms Contin] 30 mg PO BID tab 06/03/17 07/06/17 Rx Spironolactone [Aldactone] 50 mg PO DAILY #60 tab 06/03/17 07/06/17 Rx hydrALAZINE HCL [Apresoline] 50 mg PO TID #90 tab 06/03/17 07/06/17 Rx ARIPiprazole [Abilify] 5 mg PO DAILY 07/06/17 07/06/17 History Citalopram Hydrobromide [CeleXA] 40 mg PO DAILY 07/06/17 07/06/17 History HYDROcodone/APAP 10-325MG [Mallory 1 tab PO TID PRN 07/06/17 07/06/17 History 10-325] Allergies Allergy/AdvReac Type Severity Reaction Status Date / Time No Known Allergies Allergy Verified 07/06/17 19:43 Physical Exam Vitals: Vital Signs Temp Pulse Pulse Resp BP BP Pulse Ox 07/07/17 08:00 99.2 F 52 L 14 134/62 100 07/07/17 07:00 98.8 F 54 L 14 135/66 100 07/07/17 06:00 100.4 F H 56 L 14 119/58 98 07/07/17 05:00 59 L 14 167/69 98 07/07/17 04:30 54 L 14 103/56 99 07/07/17 04:00 99.3 F 53 L 14 132/62 100 07/07/17 03:40 56 L 14 89/45 100 07/07/17 03:30 55 L 14 81/44 99 07/07/17 03:00 63 14 76/41 99 07/07/17 02:36 99.3 F 85 23 150/77 98 07/07/17 00:00 98.4 F 85 14 171/78 95 07/06/17 23:08 78 16 155/88 97 07/06/17 23:03 80 16 174/75 96 07/06/17 21:56 84 16 150/63 97 07/06/17 21:25 98.6 F 81 16 150/60 97 07/06/17 20:30 76 16 151/66 95 07/06/17 20:00 82 16 149/69 95 07/06/17 19:34 76 18 149/69 96 07/06/17 18:54 101.9 F H 87 20 125/59 86 L Intake and Output 07/06/17 07/07/17 07/07/17 22:59 06:59 14:59 Intake Total 417.0 202.313 Output Total 165 23 Balance 252.0 179.313 Intake: IV 400 150 0.9 @ 100 400 150 Intake, IV Titration 17.0 52.313 Amount Norepinephrin 4 mg-0.9% 52.313 Ns Pmx 4 mg In 250 ml @ Titrate IV .Q0M [facility] Rx#: [id number] Propofol 1,000 mg In 100 17.0 ml @ Titrate IV .Q0M [facility] Rx#:[id number] Output: Urine 165 23 Other: Voiding Method Indwelling Catheter Weight 80.739 kg 56-year-old white male, sedated on mechanical ventilator, no signs of acute distress noted. - Constitutional General appearance: obese - EENT Eyes: PERRLA, normal appearance ENT: NA/AT Ears: bilateral: normal - Neck Neck: normal ROM Carotids: bilateral: upstroke normal Thyroid: bilateral: normal size - Respiratory Respiratory: bilateral: CTA - Cardiovascular Rhythm: regular Heart sounds: normal: S1, S2 ankle Peripheral Edema: absent: None foot Peripheral Edema: absent: None - Gastrointestinal General gastrointestinal: no organomegaly, soft, no tenderness - Integumentary Integumentary: normal turgor - Neurologic Neurologic: CNII-XII intact - Musculoskeletal Musculoskeletal: strength equal bilaterally - Psychiatric Sedated and mechanically ventilated. Results - Laboratory Findings CBC and BMP: 07/07/17 02:06 07/07/17 02:06 ABG ABG pH 7.36 (7.35-7.45) 07/07/17 07:20 ABG pCO2 44 mmHg (35-45) 07/07/17 07:20 ABG pO2 161 mmHg (83-108) H 07/07/17 07:20 ABG O2 Saturation 99.0 % (94-97) H 07/07/17 07:20 PT/INR, D-dimer PT 10.6 sec (9.0-12.0) 07/06/17 19:30 INR 1.0 (<1.2) 07/06/17 19:30 Abnormal lab findings: Abnormal Labs 07/06/17 07/06/17 07/06/17 19:08 19:30 19:30 RBC 3.48 L Hgb 11.6 L Hct 33.9 L RDW 17.1 H Plt Count 70 L D Neutrophils # Lymphocytes # ABG pH ABG pCO2 ABG pO2 ABG HCO3 ABG Total CO2 ABG O2 Saturation Potassium BUN 43 H Creatinine 6.60 H* Glucose 146 H POC Glucose (mg/dL) 145 H Plasma Lactic Acid [place] Calcium 7.5 L Phosphorus Total Bilirubin 1.4 H Creatine Kinase Troponin I Total Protein 5.3 L Albumin 3.1 L 07/06/17 07/06/17 07/06/17 19:30 19:30 19:30 RBC Hgb Hct RDW Plt Count Neutrophils # Lymphocytes # ABG pH ABG pCO2 ABG pO2 ABG HCO3 ABG Total CO2 ABG O2 Saturation Potassium BUN Creatinine Glucose POC Glucose (mg/dL) Plasma Lactic Acid [place] 0.6 L Calcium Phosphorus Total Bilirubin Creatine Kinase 26 L Troponin I 0.066 H* Total Protein Albumin 07/06/17 07/06/17 07/07/17 21:33 23:43 01:14 RBC Hgb Hct RDW Plt Count Neutrophils # Lymphocytes # ABG pH ABG pCO2 ABG pO2 ABG HCO3 ABG Total CO2 ABG O2 Saturation Potassium BUN Creatinine Glucose POC Glucose (mg/dL) 126 H 131 H Plasma Lactic Acid [place] <0.5 L Calcium Phosphorus Total Bilirubin Creatine Kinase Troponin I Total Protein Albumin 07/07/17 07/07/17 07/07/17 02:00 02:06 02:06 RBC 3.87 L Hgb 12.3 L Hct 38.1 L RDW 17.7 H Plt Count 68 L Neutrophils # 8.0 H Lymphocytes # 0.9 L ABG pH 7.17 L* ABG pCO2 87 H* ABG pO2 ABG HCO3 30 H ABG Total CO2 33 H ABG O2 Saturation Potassium 5.5 H BUN 46 H Creatinine 7.10 H* Glucose 160 H POC Glucose (mg/dL) Plasma Lactic Acid [place] Calcium 7.6 L Phosphorus Total Bilirubin 1.4 H Creatine Kinase Troponin I Total Protein 5.6 L Albumin 07/07/17 07/07/17 07/07/17 02:10 02:13 03:18 RBC Hgb Hct RDW Plt Count Neutrophils # Lymphocytes # ABG pH 7.27 L ABG pCO2 63 H ABG pO2 115 H ABG HCO3 28 H ABG Total CO2 30 H ABG O2 Saturation 98.0 H Potassium BUN Creatinine Glucose POC Glucose (mg/dL) 164 H Plasma Lactic Acid [place] Calcium Phosphorus 8.3 H* Total Bilirubin Creatine Kinase Troponin I Total Protein Albumin 07/07/17 07/07/17 06:26 07:20 RBC Hgb Hct RDW Plt Count Neutrophils # Lymphocytes # ABG pH ABG pCO2 ABG pO2 161 H ABG HCO3 ABG Total CO2 26 H ABG O2 Saturation 99.0 H Potassium BUN Creatinine Glucose POC Glucose (mg/dL) 147 H Plasma Lactic Acid [place] Calcium Phosphorus Total Bilirubin Creatine Kinase Troponin I Total Protein Albumin - Diagnostic Findings Chest x-ray: report reviewed Assessment and Plan Plan: Assessment: #1. Sepsis, with unknown source. Febrile with a temp of 101.9F on presentation to the emergency room, acute mental status change, hypotension, acute hypoxemia and hypercapnic respiratory failure requiring intubation and mechanical ventilation. Blood cultures, urine culture and sputum culture have been collected and sent and are pending at this time. Patient has been covered empirically with Zosyn, and vancomycin. #2. Acute hypoxic and hypercapnic respiratory failure secondary to possible fluid overload, and the patient with a history of ESRD on hemodialysis on Friday. Chest x-ray from 07/06/2017 and 07/07/2017 have been reviewed with Dr. Otoole and show no evidence of consolidation or infiltrate. #3. COPD, severity of which is unknown at this time. #4. History of sleep apnea, requiring CPAP, compliance is unknown at this time. #5. End-stage chronic kidney disease, requiring hemodialysis on Friday schedule. #6. Coronary Artery artery disease #7. History of CVA/TIA, CT brain on 07/06/2017 without any acute abnormalities #8. Diabetes mellitus #9. GERD/reflux #10. Hyperlipidemia #11. Hypertension #12. osteoarthritis Plan: We will increase the rate to 16, drop the tidal volume to 450, and decrease the FiO2 to 40%. We will add DuoNeb every 4 hours and when necessary around the clock. Sedation holiday, obtain a set of weaning parameters, if patient is following commands and tolerating the CPAP trial we'll proceed with extubation. SCDs for DVT prophylaxis in view of patient's low platelet count, GI prophylaxis. Levo fed to maintain map of 65 mmHg. May give additional 1 L IV bolus crystalloids, if patient remains hypotensive. Continue on empiric broad- spectrum antibiotics, until the final cultures are available. Further recommendations to follow. I performed a history & physical examination of the patient and discussed their management with my nurse practitioner, Yumiko Matta. I reviewed the nurse practitioner's note and agree with the documented findings and plan of care. Lung sounds are clear, no rhonchi, no wheezes, no rales. Sedation holiday, CPAP trial with weaning parameters, proceed with extubation if patient tolerates the CPAP trial. The findings and the impression was discussed with the patient. I attest to the documentation by the nurse practitioner. Time with Patient: Greater than 30
[2017-07-07 10:34] LABS: Appearance,Urine Cloudy (Clear); Bilirubin,Urine Negative (Negative); Glucose,Urine (UA) 2+ (Negative); Ketones,Urine Trace (Negative); Leukocyte Esterase,Urine Trace (Negative); Mucus,Urine Rare /hpf; Nitrite,Urine Negative (Negative); Particle Count 13448; Protein,Urine 3+ (Negative); RBC,Urine 10 /hpf (0-5); Specific Gravity,Urine 1.019 (1.001-1.035); UA Billing (MACRO vs. MICRO) MICRO; WBC,Urine 15 /hpf (0-5)
--- NOTE | 2017-07-07 11:42 | ECHOF ---
Referral Reason:valvular heart disease MEASUREMENTS -------- HEIGHT: 182.9 cm WEIGHT: 80.7 kg BP: 133/71 RVIDd: 3.7 cm (< 3.3) IVSd: 1.3 cm (0.6 - 1.1) LVIDd: 4.9 cm (3.9 - 5.3) LVPWd: 1.2 cm (0.6 - 1.1) IVSs: 1.9 cm LVIDs: 2.4 cm LVPWs: 1.6 cm LAESV Index (A-L): 33.66 ml/m Ao Diam: 3.9 cm (2.0 - 3.7) AV Cusp: 2.1 cm (1.5 - 2.6) LA Diam: 4.0 cm (2.7 - 3.8) EPSS: 1.1 cm MV E Eben: 1.31 m/s MV DecT: 216 ms MV A Eben: 0.98 m/s MV E/A Ratio: 1.34 RAP: 5.00 mmHg RVSP: 56.43 mmHg MV EF SLOPE: 55.23 mm/s (70 - 150) MV EXCURSION: 1.95 cm (> 18.000) FINDINGS -------- Sinus rhythm. This was a technically adequate study. The left ventricular size is normal. There is mild concentric left ventricular hypertrophy. Left ventricular systolic function is hyperdynamic with an estimated EF of >70%. Mitral Doppler inflow p attern suggests diastolic filling abnormality 14.36. The right ventricle is normal in size and function. LA is midly dilated 29-33ml/m2. The right atrium is normal in size. The aortic valve is trileaflet, and appears structurally normal. No aortic stenosis or regurgitation. The mitral valve leaflets are mildly thickened. Mild mitral regurgitation is present. [id number] tricuspid regurgitation present. There is moderate pulmonary hypertension. The r ight ventricular systolic pressure, as measured by Doppler, is 56.43mmHg. The pulmonic valve was not well visualized. The aortic root size is normal. Normal inferior vena cava with normal inspiratory collapse consistent with estimated right atrial pre ssure of 5 mmHg. There is a small, generalized pericardial effusion present. CONCLUSIONS -------- 1. Sinus rhythm. 2. This was a technically adequate study. 3. The left ventricular size is normal. 4. Left ventricular systolic function is hyperdynamic with an estimated EF of >70%. 5. Mitral Doppler inflow pattern suggest diastolic filling abnormality 14.36. 6. LA is midly dilated 29-33ml/m2. 7. The aortic valve is trileaflet, and appears structurally normal. No aortic stenosis or regurgitati on. 8. The mitral valve leaflets are mildly thickened. 9. Mild mitral regurgitation is present. 10. [id number] tricuspid regurgitation present. 11. There is moderate pulmonary hypertension. 12. The right ventricular systolic pressure, as measured by Doppler, is 56.43mmHg. 13. The pulmonic valve was not well visualized. 14. The aortic root size is normal. 15. There is a small, generalized pericardial effusion present. PARKING [employer]ER INSTALLER: Grupo Carvajal RDCS
[2017-07-07] MEDS: INSULIN ASPART 100 UNIT/ML 1 ML 10 ML VIAL SQ SCH ×3 (11:54→23:45)
[2017-07-07] MEDS: IPRATROPIUM-ALBUTEROL 3 ML NEB INHALATION SCH ×2 (12:25→20:20)
[2017-07-07] MEDS ORDERED: VANCOMYCIN IV PER PHARMACY 1 EACH MISC MISCELLANE PRN (12:39)
[2017-07-07 12:42] LABS: Glucose,Whole Blood 121 mg/dL (75-99)
--- NOTE | 2017-07-07 12:54 | P.HPIM ---
History of Present Illness H&P Date: 07/07/17 Chief Complaint: Mental status changes This is a 56 Year-Old male one of patient with a previous medical history significant for CAD post PCI and stenting of the RCA x3 stents, also hypertension and hypertensive cardiovascular disease, hyperlipidemia, diabetes mellitus type 2 and diabetic neuropathy with remote history of alcohol abuse and splenomegaly causing thrombocytopenia, patient was started recently on HD with ultrfiltration last admission May/2017, and was treated for involuntary dystonia secondary to Abilify medication or uremia. Patient comes in last night with complaints of fever and confusion. He apparently had cardiac catheterization done on but since patient is unable to provide any history, it cannot be confirmed. According to the records patient does have coronary artery disease and had his last stent in RCA in 2013. Patient had his last dialysis session on Friday until yesterday. In the ED, patient was hypoxic on room air which improved to 97% on 2 L. Patient received antibiotics for possible sepsis and was transferred to the floor. In the middle of the night patient became apneic and was placed on CPAP with no improvement, patient was switched to BiPAP with worsening of mental status. Eventually patient was transferred to the ICU for acute hypercapnic respiratory failure with hypoxia and eventually got intubated. Patient's blood gas suggested CO2 level of 87 which improved to 63 on intubation. patient received a bolus of normal saline as he was hypotensive. Lactic acid and WBC count was normal. Potassium of 5.5, creatinine 7.1, BP 146, phosphorus 8.3,, CK-MB normal , normal prolactin levels. On evaluation in a.m., patient was found to be very drowsy, extubated, opens eyes spontaneously, is able to follow simple commands and answer questions appropriately. Patient is unable to provide any history due to increased sleepiness. EEG ordered to rule out seizures, urine drug screen ordered to rule out medication toxicity. Patient is on high doses of opioids for pain control, it is possible he took more than required. Sepsis could potentially be contributing to patient's symptoms continue Zosyn and vancomycin. Review of Systems ROS unobtainable: due to mental status Past Medical History Past Medical History: Coronary Artery Disease (CAD), Chest Pain / Angina, COPD, CVA/TIA, Diabetes Mellitus, GERD/Reflux, Hyperlipidemia, Hypertension, Liver Disease, Osteoarthritis (OA), Renal Disease, Respiratory Disorder, Sleep Apnea/ CPAP/BIPAP Additional Past Medical History / Comment(s): 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 Chronic kidney disease due to Diabetes, last received hemodialysis 03/31/17. Has been on hemodialysis X3 weeks. Pt states chronic low platelets and usually needs platelets prior to surgical procedures. Peritoneal dialysis catheter being removed because it is not functioning properly. History of Any Multi-Drug Resistant Organisms: None Reported Past Surgical History: Appendectomy, Back Surgery, Cholecystectomy, Heart Catheterization, Heart Catheterization With Stent Additional Past Surgical History / Comment(s): Tracheostomy, bladder stone removal, anterior cervical disc fusion, dialysis catheter insertion 12/27/16, jugular catheter insertion. Past Anesthesia/Blood Transfusion Reactions: No Reported Reaction Date of Last Stent Placement:: 2012 Past Psychological History: Anxiety, Depression Smoking Status: Former smoker Past Alcohol Use History: None Reported Past Drug Use History: None Reported - Past Family History Father Family Medical History: Coronary Artery Disease (CAD) Mother Family Medical History: Coronary Artery Disease (CAD) Brother(s) Family Medical History: Cancer Daughter(s) Family Medical History: Vascular Disorder (VSD) Medications and Allergies Home Medications Medication Instructions Recorded Confirmed Type Atorvastatin Calcium [Lipitor] 80 mg PO HS #30 tab 03/01/14 07/06/17 Rx Carvedilol [Coreg] 25 mg PO BID 12/26/16 07/06/17 History amLODIPine BESYLATE [Norvasc] 5 mg PO BID 12/26/16 07/06/17 History Nitroglycerin Sl Tabs [Nitrostat] 0.4 mg SUBLINGUAL Q5M PRN 06/01/17 07/06/17 History Omeprazole [PriLOSEC] 20 mg PO DAILY 06/01/17 07/06/17 History Cholecalciferol (Vitamin D3) 2,000 unit PO DAILY 06/02/17 07/06/17 History [Vitamin D3] Bumetanide [BUMEX] 2 mg PO BID #0 06/03/17 07/06/17 Rx Insulin Aspart [NovoLOG Flexpen] 9 unit SQ AC-TID #0 06/03/17 07/06/17 Rx Insulin Glargine [Lantus] 27 unit SQ DAILY #0 06/03/17 07/06/17 Rx Lisinopril [Zestril] 20 mg PO BID #60 tab 06/03/17 07/06/17 Rx Morphine Sulfate ER [Ms Contin] 30 mg PO BID tab 06/03/17 07/06/17 Rx Spironolactone [Aldactone] 50 mg PO DAILY #60 tab 06/03/17 07/06/17 Rx hydrALAZINE HCL [Apresoline] 50 mg PO TID #90 tab 06/03/17 07/06/17 Rx ARIPiprazole [Abilify] 5 mg PO DAILY 07/06/17 07/06/17 History Citalopram Hydrobromide [CeleXA] 40 mg PO DAILY 07/06/17 07/06/17 History HYDROcodone/APAP 10-325MG [Alta 1 tab PO TID PRN 07/06/17 07/06/17 History 10-325] Allergies Allergy/AdvReac Type Severity Reaction Status Date / Time No Known Allergies Allergy Verified 07/06/17 19:43 Physical Exam Vitals: Vital Signs Temp Pulse Pulse Resp BP BP Pulse Ox 07/07/17 09:30 67 34 H 133/71 100 07/07/17 09:00 62 22 117/57 100 07/07/17 08:00 99.2 F 52 L 14 134/62 100 07/07/17 07:00 98.8 F 54 L 14 135/66 100 07/07/17 06:00 100.4 F H 56 L 14 119/58 98 07/07/17 05:00 59 L 14 167/69 98 07/07/17 04:30 54 L 14 103/56 99 07/07/17 04:00 99.3 F 53 L 14 132/62 100 07/07/17 03:40 56 L 14 89/45 100 07/07/17 03:30 55 L 14 81/44 99 07/07/17 03:00 63 14 76/41 99 07/07/17 02:36 99.3 F 85 23 150/77 98 07/07/17 00:00 98.4 F 85 14 171/78 95 07/06/17 23:08 78 16 155/88 97 07/06/17 23:03 80 16 174/75 96 07/06/17 21:56 84 16 150/63 97 07/06/17 21:25 98.6 F 81 16 150/60 97 07/06/17 20:30 76 16 151/66 95 07/06/17 20:00 82 16 149/69 95 07/06/17 19:34 76 18 149/69 96 07/06/17 18:54 101.9 F H 87 20 125/59 86 L Intake and Output 07/06/17 07/07/17 07/07/17 22:59 06:59 14:59 Intake Total 417.0 372.026 Output Total 165 25 Balance 252.0 347.026 Intake: IV 400 250 0.9 @ 100 400 250 Intake, IV Titration 17.0 122.026 Amount Norepinephrin 4 mg-0.9% 71.626 Ns Pmx 4 mg In 250 ml @ Titrate IV .Q0M NATHAN Rx#: [id number] Propofol 1,000 mg In 100 17.0 50.4 ml @ Titrate IV .Q0M NATHAN Rx#:[id number] Output: Urine 165 25 Other: Voiding Method Indwelling Catheter Weight 80.739 kg - Constitutional General appearance: cooperative, drowsy unable to provide any medical history - EENT Eyes: anicteric sclerae, pupils narrow, slightly reactive to light ENT: hearing grossly normal - Neck Neck: no lymphadenopathy, normal ROM, no other, no rigidity, no stridor, no thyromegaly - Respiratory Respiratory: bilateral: CTA, negative: diminished, dullness, rales, rhonchi - Cardiovascular Rhythm: regular Heart sounds: normal: S1, S2 Abnormal Heart Sounds: no systolic murmur, no diastolic murmur, no rub, no S3 Gallop, no S4 Gallop, no click, no other - Gastrointestinal General gastrointestinal: normal bowel sounds, soft - Integumentary Integumentary: no rash - Neurologic Neurologic: Cranial nerves could not be assessed, patient is able to move all his extremities without, sensory deficit could not be assessed due to patient's mental status, [id number] test is abnormal due to patient's underlying confusion - Musculoskeletal Musculoskeletal: gait could not be assessed, strength equal bilaterally - Psychiatric Psychiatric: Sleepy but is able to tell his name, where he is, month and year Results CBC & Chem 7: 07/07/17 02:06 07/07/17 02:06 Labs: Abnormal Lab Results - Last 24 Hours (Table) 11/12/17 11/12/17 11/12/17 Range/Units 19:08 19:30 19:30 RBC 3.48 L (4.30-5.90) m/uL Hgb 11.6 L (13.0-17.5) gm/dL Hct 33.9 L (39.0-53.0) % RDW 17.1 H (11.5-15.5) % Plt Count 70 L D (150-450) k/uL Neutrophils # (1.3-7.7) k/uL Lymphocytes # (1.0-4.8) k/uL ABG pH (7.35-7.45) ABG pCO2 (35-45) mmHg ABG pO2 (83-108) mmHg ABG HCO3 (21-25) mmol/L ABG Total CO2 (19-24) mmol/L ABG O2 Saturation (94-97) % Potassium (3.5-5.1) mmol/L BUN 43 H (9-20) mg/dL Creatinine 6.60 H* (0.66-1.25) mg/dL Glucose 146 H (74-99) mg/dL POC Glucose (mg/dL) 145 H (75-99) mg/dL Plasma Lactic Acid Wicho (0.7-2.0) mmol/L Calcium 7.5 L (8.4-10.2) mg/dL Phosphorus (2.5-4.5) mg/dL Total Bilirubin 1.4 H (0.2-1.3) mg/dL Creatine Kinase (55-170) U/L Troponin I (0.000-0.034) ng/mL Total Protein 5.3 L (6.3-8.2) g/dL Albumin 3.1 L (3.5-5.0) g/dL 07/06/17 07/06/17 07/06/17 Range/Units 19:30 19:30 19:30 RBC (4.30-5.90) m/uL Hgb (13.0-17.5) gm/dL Hct (39.0-53.0) % RDW (11.5-15.5) % Plt Count (150-450) k/uL Neutrophils # (1.3-7.7) k/uL Lymphocytes # (1.0-4.8) k/uL ABG pH (7.35-7.45) ABG pCO2 (35-45) mmHg ABG pO2 (83-108) mmHg ABG HCO3 (21-25) mmol/L ABG Total CO2 (19-24) mmol/L ABG O2 Saturation (94-97) % Potassium (3.5-5.1) mmol/L BUN (9-20) mg/dL Creatinine (0.66-1.25) mg/dL Glucose (74-99) mg/dL POC Glucose (mg/dL) (75-99) mg/dL Plasma Lactic Acid Wicho 0.6 L (0.7-2.0) mmol/L Calcium (8.4-10.2) mg/dL Phosphorus (2.5-4.5) mg/dL Total Bilirubin (0.2-1.3) mg/dL Creatine Kinase 26 L (55-170) U/L Troponin I 0.066 H* (0.000-0.034) ng/mL Total Protein (6.3-8.2) g/dL Albumin (3.5-5.0) g/dL 07/06/17 07/06/17 07/07/17 Range/Units 21:33 23:43 01:14 RBC (4.30-5.90) m/uL Hgb (13.0-17.5) gm/dL Hct (39.0-53.0) % RDW (11.5-15.5) % Plt Count (150-450) k/uL Neutrophils # (1.3-7.7) k/uL Lymphocytes # (1.0-4.8) k/uL ABG pH (7.35-7.45) ABG pCO2 (35-45) mmHg ABG pO2 (83-108) mmHg ABG HCO3 (21-25) mmol/L ABG Total CO2 (19-24) mmol/L ABG O2 Saturation (94-97) % Potassium (3.5-5.1) mmol/L BUN (9-20) mg/dL Creatinine (0.66-1.25) mg/dL Glucose (74-99) mg/dL POC Glucose (mg/dL) 126 H 131 H (75-99) mg/dL Plasma Lactic Acid Wicho <0.5 L (0.7-2.0) mmol/L Calcium (8.4-10.2) mg/dL Phosphorus (2.5-4.5) mg/dL Total Bilirubin (0.2-1.3) mg/dL Creatine Kinase (55-170) U/L Troponin I (0.000-0.034) ng/mL Total Protein (6.3-8.2) g/dL Albumin (3.5-5.0) g/dL 07/07/17 07/07/17 07/07/17 Range/Units 02:00 02:06 02:06 RBC 3.87 L (4.30-5.90) m/uL Hgb 12.3 L (13.0-17.5) gm/dL Hct 38.1 L (39.0-53.0) % RDW 17.7 H (11.5-15.5) % Plt Count 68 L (150-450) k/uL Neutrophils # 8.0 H (1.3-7.7) k/uL Lymphocytes # 0.9 L (1.0-4.8) k/uL ABG pH 7.17 L* (7.35-7.45) ABG pCO2 87 H* (35-45) mmHg ABG pO2 (83-108) mmHg ABG HCO3 30 H (21-25) mmol/L ABG Total CO2 33 H (19-24) mmol/L ABG O2 Saturation (94-97) % Potassium 5.5 H (3.5-5.1) mmol/L BUN 46 H (9-20) mg/dL Creatinine 7.10 H* (0.66-1.25) mg/dL Glucose 160 H (74-99) mg/dL POC Glucose (mg/dL) (75-99) mg/dL Plasma Lactic Acid Wicho (0.7-2.0) mmol/L Calcium 7.6 L (8.4-10.2) mg/dL Phosphorus (2.5-4.5) mg/dL Total Bilirubin 1.4 H (0.2-1.3) mg/dL Creatine Kinase (55-170) U/L Troponin I (0.000-0.034) ng/mL Total Protein 5.6 L (6.3-8.2) g/dL Albumin (3.5-5.0) g/dL 07/07/17 07/07/17 07/07/17 Range/Units 02:10 02:13 03:18 RBC (4.30-5.90) m/uL Hgb (13.0-17.5) gm/dL Hct (39.0-53.0) % RDW (11.5-15.5) % Plt Count (150-450) k/uL Neutrophils # (1.3-7.7) k/uL Lymphocytes # (1.0-4.8) k/uL ABG pH 7.27 L (7.35-7.45) ABG pCO2 63 H (35-45) mmHg ABG pO2 115 H (83-108) mmHg ABG HCO3 28 H (21-25) mmol/L ABG Total CO2 30 H (19-24) mmol/L ABG O2 Saturation 98.0 H (94-97) % Potassium (3.5-5.1) mmol/L BUN (9-20) mg/dL Creatinine (0.66-1.25) mg/dL Glucose (74-99) mg/dL POC Glucose (mg/dL) 164 H (75-99) mg/dL Plasma Lactic Acid Wicho (0.7-2.0) mmol/L Calcium (8.4-10.2) mg/dL Phosphorus 8.3 H* (2.5-4.5) mg/dL Total Bilirubin (0.2-1.3) mg/dL Creatine Kinase (55-170) U/L Troponin I (0.000-0.034) ng/mL Total Protein (6.3-8.2) g/dL Albumin (3.5-5.0) g/dL 07/07/17 07/07/17 07/07/17 Range/Units 06:26 07:20 08:50 RBC (4.30-5.90) m/uL Hgb (13.0-17.5) gm/dL Hct (39.0-53.0) % RDW (11.5-15.5) % Plt Count (150-450) k/uL Neutrophils # (1.3-7.7) k/uL Lymphocytes # (1.0-4.8) k/uL ABG pH (7.35-7.45) ABG pCO2 (35-45) mmHg ABG pO2 161 H (83-108) mmHg ABG HCO3 (21-25) mmol/L ABG Total CO2 26 H (19-24) mmol/L ABG O2 Saturation 99.0 H (94-97) % Potassium (3.5-5.1) mmol/L BUN (9-20) mg/dL Creatinine (0.66-1.25) mg/dL Glucose (74-99) mg/dL POC Glucose (mg/dL) 147 H 126 H (75-99) mg/dL Plasma Lactic Acid Wicho (0.7-2.0) mmol/L Calcium (8.4-10.2) mg/dL Phosphorus (2.5-4.5) mg/dL Total Bilirubin (0.2-1.3) mg/dL Creatine Kinase (55-170) U/L Troponin I (0.000-0.034) ng/mL Total Protein (6.3-8.2) g/dL Albumin (3.5-5.0) g/dL Thrombosis Risk Factor Assmnt - DVT/VTE Prophylaxis DVT/VTE Prophylaxis: Mechanical Prophylaxis ordered - Choose All That Apply Any of the Below Risk Factors Present?: Yes Each Factor Represents 1 point: Age 41-60 years, Medical pt on bed rest Thrombosis Risk Factor Assessment Total Risk Factor Score: 2 Thrombosis Risk Factor Assessment Level: Low Risk Assessment and Plan Plan: 1. Acute hypoxic hypercapnic respiratory failure, currently extubated, no wheezing on examination, does not appear to be in COPD exacerbation, could be related to volume overload from missed dialysis, CHF exacerbation as BNP high or opioid overdose , another possibility is sepsis associated change in mental status, d-dimer negative for PE , chest x-ray negative for any pneumonia, new monitoring in ICU, continue DuoNeb for shortness of breath as needed, ECHO ordered 2 hypnagogic tremors in the right upper extremity- likely secondary to metabolic encephalopathy , EEG ordered to rule out seizure , neurology consulted , unlikely to be a stroke as patient is able to move all his extremities, continue neuro checks every 4 hours continue seizure precautions 3. Sepsis likely secondary to urinary tract infection- continue Zosyn 2.25 every 8(renally adjusted) and vancomycin pharmacy to dose. Urine cultures ordered, chest x-ray negative for any consolidation 4. Metabolic encephalopathy - broad differentials, including end-stage renal disease, sepsis, hypercapnia, seizure, possible stroke- EEG ordered, neurochecks every 4 hours, neurology recommendation pending 5. COPD-repeat VBG in a.m., lungs were clear to auscultate with no wheezing suggesting COPD exacerbation 6.obstructive sleep apnea, compliance unknown 7.. CAD post PCI of the RCA. on ASA 8 mg po daily,Coreg 25 mg orally BID, and Lipitor 80 mg orally daily. oral medication on hold until swallow evaluation 8. ESRD was just started HD with ultrafiltration. we will consult Nephrology. 9. Hypertension and hypertensive cardiovascular disease with reported Accelerated hypertension. on Amlodipine 5 mg po daily, Coreg 25 mg orally BID, increase Lisinopril to 20 mg orally BID , held. COntinue lopressor 10 mg ivq6 hr SBP > 160 10. Diabetes Mellitus type 2. reduced to Lantus 12 units SC QHS and Humalog 3 units SC AC meals tid along with SSI. 11. 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 12 Anxiety. we will hold Paxil and Aripiprazole. 13 PAD. hold ASA and lipitor for secondary prevention. 14. Hyperlipidemia. NPO, hold Lipitor 80 mg orally daily. 15. Diabetic Neuropathy. stable. 15. Degenerative disc disease of the Cervical spine S/P ACDF. hold Alta and oxycodone . 16. DVT prophylaxis. we will continue with bilateral knee-high RYAN HOSE. 17. GI prophylaxis. we will continue with PPI. [facility] 2 midn[facility]. 19. Full code.
[2017-07-07] MEDS ORDERED: HEPARIN SODIUM,PORCINE 5,000 UNIT/ML 1 ML VIAL ONE (15:30)
[2017-07-07] MEDS: METOPROLOL TARTRATE 5 MG/5 ML VIAL IVP PRN (15:31)
[2017-07-07 15:52] LABS: Glucose,Whole Blood 106 mg/dL (75-99)
[2017-07-07] MEDS: FAMOTIDINE 20 MG/2 ML VIAL IV SCH (16:33)
[2017-07-07 16:55] LABS: Glucose,Whole Blood 126 mg/dL (75-99)
[2017-07-07] MEDS: ACETAMINOPHEN IV (For NPO) 1,000 MG in EMPTY BAG 1 BAG IVPB SCH (17:04)
[2017-07-07] MEDS ORDERED: hydrALAZINE HCL 20 MG/ML 1 ML VIAL IVP PRN (17:09)
[2017-07-07] MEDS: CALCIUM ACETATE 667 MG CAP PO SCH (17:23)
[2017-07-07 17:26] LABS: Glucose,Whole Blood 108 mg/dL (75-99)
[2017-07-07 18:02] LABS: Calcium 7.8 mg/dL (8.4-10.2); Magnesium 1.9 mg/dL (1.6-2.3); Phosphorus 3.9 mg/dL (2.5-4.5); Potassium 3.7 mmol/L (3.5-5.1); Total Bilirubin 1.5 mg/dL (0.2-1.3); Total Protein 5.4 g/dL (6.3-8.2)
[2017-07-07] MEDS: PIPERACILLIN-TAZOBACTAM 3.375 GM in DEXTROSE/WATER 1 50ML.BAG IVPB SCH (21:19)
--- NOTE | 2017-07-07 21:39 | EEG ---
ELECTROENCEPHALOGRAM REPORT DATE OF EE07/07/2017. REFERRING PHYSICIAN: Dr. Ramirez. CONSULTING AND INTERPRETING PHYSICIAN: Alvarado Nguyễn MD. INDICATION FOR EXAMINATION: This patient is a 56-year-old male being evaluated for altered mental status and sepsis. The patient extubated today, but remains confused and disoriented. The patient very lethargic. AGE: 56. EEG FINDINGS: A routine 21-channel awake digital EEG recording was accomplished utilizing the 10-20 international system with bipolar and referential montages. The background activity in the most alert resting state consists of a medium amplitude, poorly-developed and poorly-sustained 4-5 Hz activity over the posterior head regions. This posterior rhythm attenuates minimally to eye opening. There is a small amount of low amplitude 18-20 Hz beta activity seen maximally over the anterior head regions. Muscle and movement artifact was observed on a few occasions during the tracing. Hyperventilation was not performed. Photic stimulation at flash frequencies of 2-30 Hz produced a minimal occipital driving response. No epileptiform discharges were seen. IMPRESSION: This EEG gives evidence of a severe widespread diffuse disturbance in cerebral function. The EEG failed to reveal any focal, lateralized or epileptiform abnormalities. If clinically indicated, a followup EEG is recommended. Clinical correlation is recommended. MMODL / IJN: [id number] /
[2017-07-07] MEDS ORDERED: NITROGLYCERIN SL TABS 0.4 MG TAB SUBLINGUAL PRN (22:13)
--- NOTE | 2017-07-07 23:20 | P.CNNES ---
History of Present Illness Consult date: 07/07/17 Reason for Consult: Patient with altered mental status and confusion. History of Present Illness: This patient is a 56-year-old right-handed white male who was admitted to [facility] with symptoms of altered mental status and lethargy. The patient apparently was at home and was noted by his as being very lethargic and hard to arouse. Apparently she had tried several times to awaken him and he seemed to be less and less responsive. She decided to bring him to the emergency room yesterday for evaluation. In the ER he was found to have evidence of sepsis and fever. He had recently undergone a cardiac catheterization on of last week and apparently has a history of multiple cardiac stent placements.the patient also has a history of end-stage renal disease and is on hemodialysis. He has a known history of postdialysis myoclonus which has been documented previously. The patient was evaluated in the ER and had evidence of acute hypoxic hypercapnic respiratory failure. The patient was admitted to the selective care floor but quickly showed signs of respiratory decompensation. He required emergent intubation on the medical floor and then was transferred to the ICU. He was placed on the ventilator however at 10 AM this morning he was able to be extubated. He is now resting comfortably and sitting in his chair in the ICU at this time. Apparently he had evidence of severe renal failure with elevated serum creatinine as high as 7.10. He underwent hemodialysis today and his creatinine is come down to 3.57 today. The patient was extubated and is now doing better in terms of his mental status. He is being treated for underlying sepsis likely secondary to urinary tract infection. He is currently on Zosyn and vancomycin combination of antibiotics. The patient this morning did continue to reveal signs of diffuse encephalopathy. It was felt this may be secondary to his end-stage renal disease versus sepsis. He was sent for routine EEG this morning which was reviewed. His EEG is markedly abnormal and was quite slow.there was no evidence of any epileptiform discharges during this EEG. The patient currently is doing better in terms of his mental status. He does complain of increasing symptoms of fatigue and lethargy. He states that if he sits in a chair he quickly becomes sleepy and does dose into immediate drowsy state. His clinical history suggests possibility of respiratory narcosis. Apparently his blood gases have improved since admission. As noted he does have a history of mild clonus which usually is very clearly seen after his dialysis days.the patient states he does have evidence of excessive daytime drowsiness which is been ongoing for the past year. We have suggested he should be evaluated with a sleep study for possibility of narcolepsy. The patient is a poor historian however does seem to be doing better now than earlier in the day. Neurology is now been consulted for further evaluation and recommendations. Review of Systems Constitutional: Denies chills, Denies fever Eyes: denies blurred vision, denies pain Ears, nose, mouth and throat: Denies headache, Denies sore throat Cardiovascular: Reports orthopnea, Denies chest pain, Denies shortness of breath Respiratory: Denies cough Gastrointestinal: Denies abdominal pain, Denies diarrhea, Denies nausea, Denies vomiting Musculoskeletal: Denies myalgias Integumentary: Denies pruritus, Denies rash Neurological: Reports change in mentation, Reports confusion, Reports memory loss, Reports tremors, Denies numbness, Denies weakness Psychiatric: Denies anxiety, Denies depression Endocrine: Denies fatigue, Denies weight change Past Medical History Past Medical History: Coronary Artery Disease (CAD), Chest Pain / Angina, COPD, CVA/TIA, Diabetes Mellitus, GERD/Reflux, Hyperlipidemia, Hypertension, Liver Disease, Osteoarthritis (OA), Renal Disease, Respiratory Disorder, Sleep Apnea/ CPAP/BIPAP Additional Past Medical History / Comment(s): 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 Chronic kidney disease due to Diabetes, last received hemodialysis 03/31/17. Has been on hemodialysis X3 weeks. Pt states chronic low platelets and usually needs platelets prior to surgical procedures. Peritoneal dialysis catheter being removed because it is not functioning properly. History of Any Multi-Drug Resistant Organisms: None Reported Past Surgical History: Appendectomy, Back Surgery, Cholecystectomy, Heart Catheterization, Heart Catheterization With Stent Additional Past Surgical History / Comment(s): Tracheostomy, bladder stone removal, anterior cervical disc fusion, dialysis catheter insertion 12/27/16, jugular catheter insertion. Past Anesthesia/Blood Transfusion Reactions: No Reported Reaction Date of Last Stent Placement:: 2012 Past Psychological History: Anxiety, Depression Smoking Status: Former smoker Past Alcohol Use History: None Reported Past Drug Use History: None Reported - Past Family History Father Family Medical History: Coronary Artery Disease (CAD) Mother Family Medical History: Coronary Artery Disease (CAD) Brother(s) Family Medical History: Cancer Daughter(s) Family Medical History: Vascular Disorder (VSD) Medications and Allergies Home Medications Medication Instructions Recorded Confirmed Type Atorvastatin Calcium [Lipitor] 80 mg PO HS #30 tab 03/01/14 07/06/17 Rx Carvedilol [Coreg] 25 mg PO BID 12/26/16 07/06/17 History amLODIPine BESYLATE [Norvasc] 5 mg PO BID 12/26/16 07/06/17 History Nitroglycerin Sl Tabs [Nitrostat] 0.4 mg SUBLINGUAL Q5M PRN 06/01/17 07/06/17 History Omeprazole [PriLOSEC] 20 mg PO DAILY 06/01/17 07/06/17 History Cholecalciferol (Vitamin D3) 2,000 unit PO DAILY 06/02/17 07/06/17 History [Vitamin D3] Bumetanide [BUMEX] 2 mg PO BID #0 06/03/17 07/06/17 Rx Insulin Aspart [NovoLOG Flexpen] 9 unit SQ AC-TID #0 06/03/17 07/06/17 Rx Insulin Glargine [Lantus] 27 unit SQ DAILY #0 06/03/17 07/06/17 Rx Lisinopril [Zestril] 20 mg PO BID #60 tab 06/03/17 07/06/17 Rx Morphine Sulfate ER [Ms Contin] 30 mg PO BID tab 06/03/17 07/06/17 Rx Spironolactone [Aldactone] 50 mg PO DAILY #60 tab 06/03/17 07/06/17 Rx hydrALAZINE HCL [Apresoline] 50 mg PO TID #90 tab 06/03/17 07/06/17 Rx ARIPiprazole [Abilify] 5 mg PO DAILY 07/06/17 07/06/17 History Citalopram Hydrobromide [CeleXA] 40 mg PO DAILY 07/06/17 07/06/17 History HYDROcodone/APAP 10-325MG [Jenner 1 tab PO TID PRN 07/06/17 07/06/17 History 10-325] Allergies Allergy/AdvReac Type Severity Reaction Status Date / Time No Known Allergies Allergy Verified 07/06/17 19:43 Physical Examination - Vital Signs Vital Signs: Vital Signs Temp Pulse Pulse Resp BP BP Pulse Ox 07/07/17 18:00 68 20 151/59 99 07/07/17 17:30 99.8 F H 07/07/17 17:00 71 20 174/71 100 07/07/17 16:00 101.3 F H 68 21 168/71 98 07/07/17 15:00 83 17 192/82 99 07/07/17 14:00 78 14 167/60 97 07/07/17 13:00 73 10 L 157/64 99 07/07/17 12:36 77 07/07/17 12:25 79 07/07/17 12:00 98.3 F 78 12 153/61 97 07/07/17 11:34 14 07/07/17 11:00 76 24 142/57 97 07/07/17 10:00 64 12 126/64 99 07/07/17 09:30 67 34 H 133/71 100 07/07/17 09:00 62 22 117/57 100 07/07/17 08:00 99.2 F 52 L 34 H 134/62 100 07/07/17 07:00 98.8 F 54 L 14 135/66 100 07/07/17 06:00 100.4 F H 56 L 14 119/58 98 07/07/17 05:00 59 L 14 167/69 98 07/07/17 04:30 54 L 14 103/56 99 07/07/17 04:00 99.3 F 53 L 14 132/62 100 07/07/17 03:40 56 L 14 89/45 100 07/07/17 03:30 55 L 14 81/44 99 07/07/17 03:00 63 14 76/41 99 07/07/17 02:36 99.3 F 85 23 150/77 98 07/07/17 00:00 98.4 F 85 14 171/78 95 07/06/17 23:08 78 16 155/88 97 07/06/17 23:03 80 16 174/75 96 07/06/17 21:56 84 16 150/63 97 07/06/17 21:25 98.6 F 81 16 150/60 97 07/06/17 20:30 76 16 151/66 95 07/06/17 20:00 82 16 149/69 95 07/06/17 19:34 76 18 149/69 96 Intake and Output 07/07/17 07/07/17 07/07/17 06:59 14:59 22:59 Intake Total 417.0 972.026 500 Output Total 165 81 18 Balance 252.0 891.026 482 Intake: IV 400 750 100 0.9 @ 100 400 750 100 Intake, IV Titration 17.0 172.026 400 Amount ACETAMINOPHEN IV (For NPO 400 ) 1,000 mg In Empty Bag 1 bag @ 400 mls/hr IVPB Q6H [facility] Rx#:[id number] Norepinephrin 4 mg-0.9% 71.626 Ns Pmx 4 mg In 250 ml @ Titrate IV .Q0M [facility] Rx#: [id number] Piperacillin-Tazobactam 3 50 .375 gm In Dextrose/Water 1 50ml.bag @ 12.5 mls/hr IVPB Q12HR [facility] Rx#: [id number] Propofol 1,000 mg In 100 17.0 50.4 ml @ Titrate IV .Q0M [facility] Rx#:[id number] Other 50 Output: Urine 165 81 18 Other: Voiding Method Indwelling Catheter Indwelling Catheter Indwelling Catheter Weight 80.739 kg Patient Weight 07/08/17 06:59 Weight 80.739 kg - Constitutional General appearance: average body habitus, cooperative - EENT EENT: PERRL, mucous membranes moist - Respiratory Respiratory: lungs clear, normal breath sounds - Cardiovascular Cardiovascular: regular rate, normal S1, normal S2 Extremities: no peripheral edema bilaterally - Gastrointestinal Gastrointestinal: normoactive bowel sounds - Integumentary Integumentary: normal - Neurologic Cranial nerve examination: PERRL, EOMI, VFF, V1/V2/V3 grossly intact, face symmetric, tongue midline, intact gag reflex, intact corneal reflex, normal palatal elevation Speech examination: intact Sensorimotor examination: intact Detailed motor examination: grossly full strength in all extremities Motor examination - right side: 4/5: biceps, triceps, wrist flexion, wrist extension, provider scribe, hip flexors, knee extensors, dorsiflexion, toe extension (EHL) , plantarflexion Motor examination - left side: 4/5: biceps, triceps, wrist flexion, wrist extension, provider scribe, hip flexors, knee extensors, dorsiflexion, toe extension (EHL) , plantarflexion Detailed sensory examination: intact Reflex and gait examination: intact Reflexes: 1+: ankle, bicep, knee, tricep - Musculoskeletal Musculoskeletal: no pain - Psychiatric Psychiatric: mood/affect appropriate, cooperative Results - Laboratory Findings CBC and BMP: 07/07/17 02:06 07/07/17 16:22 Abnormal Lab Findings: Abnormal Labs 07/06/17 07/06/17 07/06/17 19:08 19:30 19:30 RBC 3.48 L Hgb 11.6 L Hct 33.9 L RDW 17.1 H Plt Count 70 L D Neutrophils # Lymphocytes # ABG pH ABG pCO2 ABG pO2 ABG HCO3 ABG Total CO2 ABG O2 Saturation Potassium Carbon Dioxide BUN 43 H Creatinine 6.60 H* Glucose 146 H POC Glucose (mg/dL) 145 H Plasma Lactic Acid [place] Calcium 7.5 L Phosphorus Total Bilirubin 1.4 H Creatine Kinase Troponin I Total Protein 5.3 L Albumin 3.1 L Urine Protein Urine Glucose (UA) Urine Ketones Urine Blood Ur Leukocyte Esterase Urine RBC Urine WBC Urine Mucus Urine Opiates Screen 07/06/17 07/06/17 07/06/17 19:30 19:30 19:30 RBC Hgb Hct RDW Plt Count Neutrophils # Lymphocytes # ABG pH ABG pCO2 ABG pO2 ABG HCO3 ABG Total CO2 ABG O2 Saturation Potassium Carbon Dioxide BUN Creatinine Glucose POC Glucose (mg/dL) Plasma Lactic Acid [place] 0.6 L Calcium Phosphorus Total Bilirubin Creatine Kinase 26 L Troponin I 0.066 H* Total Protein Albumin Urine Protein Urine Glucose (UA) Urine Ketones Urine Blood Ur Leukocyte Esterase Urine RBC Urine WBC Urine Mucus Urine Opiates Screen 07/06/17 07/06/17 07/07/17 21:33 23:43 01:14 RBC Hgb Hct RDW Plt Count Neutrophils # Lymphocytes # ABG pH ABG pCO2 ABG pO2 ABG HCO3 ABG Total CO2 ABG O2 Saturation Potassium Carbon Dioxide BUN Creatinine Glucose POC Glucose (mg/dL) 126 H 131 H Plasma Lactic Acid [place] <0.5 L Calcium Phosphorus Total Bilirubin Creatine Kinase Troponin I Total Protein Albumin Urine Protein Urine Glucose (UA) Urine Ketones Urine Blood Ur Leukocyte Esterase Urine RBC Urine WBC Urine Mucus Urine Opiates Screen 07/07/17 07/07/17 07/07/17 02:00 02:06 02:06 RBC 3.87 L Hgb 12.3 L Hct 38.1 L RDW 17.7 H Plt Count 68 L Neutrophils # 8.0 H Lymphocytes # 0.9 L ABG pH 7.17 L* ABG pCO2 87 H* ABG pO2 ABG HCO3 30 H ABG Total CO2 33 H ABG O2 Saturation Potassium 5.5 H Carbon Dioxide BUN 46 H Creatinine 7.10 H* Glucose 160 H POC Glucose (mg/dL) Plasma Lactic Acid [place] Calcium 7.6 L Phosphorus Total Bilirubin 1.4 H Creatine Kinase Troponin I Total Protein 5.6 L Albumin Urine Protein Urine Glucose (UA) Urine Ketones Urine Blood Ur Leukocyte Esterase Urine RBC Urine WBC Urine Mucus Urine Opiates Screen 07/07/17 07/07/17 07/07/17 02:10 02:13 03:18 RBC Hgb Hct RDW Plt Count Neutrophils # Lymphocytes # ABG pH 7.27 L ABG pCO2 63 H ABG pO2 115 H ABG HCO3 28 H ABG Total CO2 30 H ABG O2 Saturation 98.0 H Potassium Carbon Dioxide BUN Creatinine Glucose POC Glucose (mg/dL) 164 H Plasma Lactic Acid [place] Calcium Phosphorus 8.3 H* Total Bilirubin Creatine Kinase Troponin I Total Protein Albumin Urine Protein Urine Glucose (UA) Urine Ketones Urine Blood Ur Leukocyte Esterase Urine RBC Urine WBC Urine Mucus Urine Opiates Screen 07/07/17 07/07/17 07/07/17 06:26 07:20 08:24 RBC Hgb Hct RDW Plt Count Neutrophils # Lymphocytes # ABG pH ABG pCO2 ABG pO2 161 H ABG HCO3 ABG Total CO2 26 H ABG O2 Saturation 99.0 H Potassium Carbon Dioxide BUN Creatinine Glucose POC Glucose (mg/dL) 147 H Plasma Lactic Acid [place] Calcium Phosphorus Total Bilirubin Creatine Kinase Troponin I Total Protein Albumin Urine Protein 3+ H Urine Glucose (UA) 2+ H Urine Ketones Trace H Urine Blood Small H Ur Leukocyte Esterase Trace H Urine RBC 10 H Urine WBC 15 H Urine Mucus Rare H Urine Opiates Screen 07/07/17 07/07/17 07/07/17 08:50 10:58 11:50 RBC Hgb Hct RDW Plt Count Neutrophils # Lymphocytes # ABG pH ABG pCO2 ABG pO2 ABG HCO3 ABG Total CO2 ABG O2 Saturation Potassium Carbon Dioxide BUN Creatinine Glucose POC Glucose (mg/dL) 126 H 126 H Plasma Lactic Acid [place] Calcium Phosphorus Total Bilirubin Creatine Kinase Troponin I 0.149 H* Total Protein Albumin Urine Protein Urine Glucose (UA) Urine Ketones Urine Blood Ur Leukocyte Esterase Urine RBC Urine WBC Urine Mucus Urine Opiates Screen 07/07/17 07/07/17 07/07/17 12:20 12:40 15:50 RBC Hgb Hct RDW Plt Count Neutrophils # Lymphocytes # ABG pH ABG pCO2 ABG pO2 ABG HCO3 ABG Total CO2 ABG O2 Saturation Potassium Carbon Dioxide BUN Creatinine Glucose POC Glucose (mg/dL) 121 H 106 H Plasma Lactic Acid [place] Calcium Phosphorus Total Bilirubin Creatine Kinase Troponin I Total Protein Albumin Urine Protein Urine Glucose (UA) Urine Ketones Urine Blood Ur Leukocyte Esterase Urine RBC Urine WBC Urine Mucus Urine Opiates Screen Detected H 07/07/17 07/07/17 07/07/17 16:22 16:22 17:25 RBC Hgb Hct RDW Plt Count Neutrophils # Lymphocytes # ABG pH ABG pCO2 ABG pO2 ABG HCO3 ABG Total CO2 ABG O2 Saturation Potassium Carbon Dioxide 31 H BUN 21 H Creatinine 3.57 H Glucose POC Glucose (mg/dL) 108 H Plasma Lactic Acid [place] Calcium 7.8 L Phosphorus Total Bilirubin 1.5 H Creatine Kinase Troponin I 0.173 H* Total Protein 5.4 L Albumin 3.0 L Urine Protein Urine Glucose (UA) Urine Ketones Urine Blood Ur Leukocyte Esterase Urine RBC Urine WBC Urine Mucus Urine Opiates Screen Assessment and Plan (1) Acute encephalopathy Current Visit: No Status: Acute SNOMED Code(s): 9585955 (2) Dialysis disequilibrium syndrome Current Visit: No Status: Acute SNOMED Code(s): 63295147 (3) Myoclonus Current Visit: No Status: Acute SNOMED Code(s): 99697246 (4) Renal failure Current Visit: No Status: Acute SNOMED Code(s): 63496814 Plan: this patient is a 56-year-old male who was admitted to intensive care unit with signs of acute respiratory failure. Patient was on the medical floor after being admitted for lethargy and confusion at home. He was on selective care at 3 AM this morning when he developed severe respiratory failure. He was intubated and transferred to the intensive care unit. The patient was able to be extubated this morning at 10 AM. He is now resting comfortably and is sitting up in a chair in the ICU next to his bed. Patient is able to answer simple questions. He still does seem confused. He did undergo a routine EEG earlier today which is reviewed and reveals signs of marketed slowing consistent with a diffuse encephalopathy. This EEG results were reviewed today with the patient. He does have evidence of excessive daytime drowsiness suggesting possibility of narcolepsy. We have suggested he be considered for a sleep study in the outpatient setting for further evaluation. Would recommend ongoing treatment of underlying sepsis. His overall prognosis at this time remains guarded. We will continue close neurological follow-up with this patient during this admission. Time with Patient: Greater than 30
[2017-07-07 23:46] LABS: Glucose,Whole Blood 97 mg/dL (75-99)
[2017-07-08] MEDS ORDERED: POTASSIUM CHLORIDE ER 20 MEQ TAB.ER PO SCH
[2017-07-08] MEDS ORDERED: MAGNESIUM SULFATE-D5W PMX 1 GM in DEXTROSE/WATER 1 100ML.BAG IVPB ONE
[2017-07-08 04:57] LABS: Anisocytosis Slight; Basophils % (A) 0 %; CH 32.9; CHCM 33.5; Eosinophils % (A) 1 %; HCT 26.4 % (39.0-53.0); HDW 3.78; Hypochromasia Slight; Luc # (Auto) 0.06; Luc % (Auto) 1; Lymphocytes # (A) 0.6 k/uL (1.0-4.8); Lymphocytes % (A) 14 %; MCH 33.4 pg (25.0-35.0); MCHC 33.8 g/dL (31.0-37.0); Macrocytosis Slight; Mean Platelet Volume 9.1; Monocytes # (A) 0.2 k/uL (0-1.0); Monocytes % (A) 5 %; Neutrophils # (A) 3.5 k/uL (1.3-7.7); Neutrophils % (A) 79 %; Poikilocytosis Slight; RBC 2.66 m/uL (4.30-5.90); WBC 4.4 k/uL (3.8-10.6); WBC (Perox) 4.42
[2017-07-08] MEDS: METOPROLOL TARTRATE 5 MG/5 ML VIAL IVP PRN (04:59)
[2017-07-08] MEDS: ACETAMINOPHEN IV (For NPO) 1,000 MG in EMPTY BAG 1 BAG IVPB SCH ×3 (05:00→11:58)
[2017-07-08 05:09] LABS: HGB 8.9 gm/dL (13.0-17.5)
[2017-07-08 05:13] LABS: Calcium 7.5 mg/dL (8.4-10.2); Magnesium 2.1 mg/dL (1.6-2.3); Phosphorus 5.3 mg/dL (2.5-4.5); Potassium 4.5 mmol/L (3.5-5.1)
--- NOTE | 2017-07-08 06:43 | XR ---
EXAMINATION TYPE: XR chest 1V portable DATE OF EXAM: 07/08/2017 CLINICAL HISTORY: Difficulty breathing progress study. TECHNIQUE: Single AP portable upright view of the chest is obtained. COMPARISON: Chest x-ray from one day earlier and older studies. FINDINGS: There is interval extubation with removal of endotracheal and orogastric tubes. There is s table right internal jugular large-bore dialysis catheter. There is persistent elevated left hemidiaphragm. There is no new focal airspace opacity, pleural effu herminia, or pneumothorax seen bilaterally. The cardiac silhouette size is stable and within normal limit s. There is partial visualization of surgical change in the lower cervical spine. IMPRESSION: Interval extubation, no suspicious new infiltrate.
--- NOTE | 2017-07-08 07:11 | CONS ---
CONSULTATION REASON FOR CONSULT: End-stage renal disease. HISTORY OF PRESENT ILLNESS: The patient is a 56-year-old male who was admitted to the hospital with the complaints of weakness and confusion. He was also noted to have slurred speech. He had worsening mentation and shortness of breath and patient was intubated. This morning he has already been extubated. He is scheduled for hemodialysis today. There is concern for possible pneumonia. Currently patient is receiving IV fluid bolus. His lactic acid was not elevated. Blood pressure had been low with systolic at 81 mmHg and 76 mmHg earlier today. Currently, patient is maintained on antibiotics. PAST MEDICAL HISTORY: End-stage renal disease, anemia of chronic disease, coronary artery disease, COPD, history of CVA/TIA, type 2 diabetes, chronic liver disease, osteoarthritis, obstructive sleep apnea, history of pancreatitis, fatty liver. PAST SURGICAL HISTORY: PD catheter placement and removal, appendectomy, back surgery, cholecystectomy, cardiac catheterization, AV, history of tracheostomy, surgery for bladder stone removal. PermCath insertion for dialysis, AV fistula surgery. SOCIAL HISTORY: The patient is a former smoker. No history of drug abuse or alcohol abuse. MEDICATIONS: Medications at home prior to admission include Lipitor, Coreg, Norvasc, Nitrostat, Prilosec, vitamin D3, Bumex, insulin, Zestril, MS Contin, Aldactone, hydralazine, Abilify and Celexa, [place]. ALLERGIES: None. EXAMINATION: Patient is comfortable, awake, alert, and oriented. He is not in any acute distress. Blood pressure this morning was 126/64. The patient is afebrile. Examination of the heart rate was 70 per minute. He is afebrile. Examination of the heart S1, S2. Examination of the lungs decreased breath sounds bases. No crackles or wheezing is heard. Abdomen is soft, nontender. Examination lower extremities shows no significant edema. 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 Patient moving all 4 extremities. LAB: Show phosphorus was 3.9, calcium 7.8, sodium 139, potassium 3.7, serum creatinine was 3.57. ASSESSMENT: 1. End-stage renal disease, on hemodialysis on a Friday, Friday, Friday schedule. Patient will be dialyzed today. 2. Possible pneumonia and currently status post extubation. 3. Altered mentation, now improving. 4. Chronic kidney disease mineral bone disorder. PLAN: Decrease IV fluids once blood pressure stabilizes, currently it is on the higher side. Will remove a small amount of fluid with dialysis given the recent hypotension and possible sepsis. Repeat chest x-ray in a.m. MMODL / IJN: [id number] /
[2017-07-08 07:16] LABS: Glucose,Whole Blood 117 mg/dL (75-99)
[2017-07-08] MEDS: CALCIUM ACETATE 667 MG CAP PO SCH ×3 (07:45→17:37)
--- NOTE | 2017-07-08 08:42 | P.PN ---
Subjective Progress Note Date: 07/08/17 Principal diagnosis: Septic shock, with unknown source. Acute hypoxic and hypercapnic respiratory failure due to fluid overload, requiring mechanical ventilation This is a 56-year-old white male who presented to the emergency room on 2016 at around 1900 with acute change in mental status, fevers that started at around 8:00 in the morning. All history was obtained from the chart and the nursing staff, the patient is sedated and mechanically ventilated. Patient denied any other complaints. Past medical history is positive for coronary artery disease, COPD, CVA/TIA, diabetes mellitus, end-stage renal disease currently on hemodialysis Friday, hyperlipidemia, hypertension , sleep apnea on home CPAP. On presentation to the emergency department patient was found to have a fever of 101.9, hypoxemic with O2 sat 86% on room air, no signs of leukocytosis, WBC is 7.4, no significant coagulopathy or electrolyte abnormality. Creatinine was 6.6, with BUNs of 43 on admission. Lactic acid was normal at 0.6, troponin 0.066, CK 26. He had a mild elevation of total bilirubin 1.4, liver enzymes and ammonia level were within normal levels. Patient had of heart catheterization on , 07/03/2017 through the right radial artery approach, the results of which are not available at this time. CT of the head and 07/07/2017 showed no acute abnormality. EKG on 07/06/2017 showed normal sinus rhythm with a possible anterior infarct, age undetermined. Chest x-ray on 07/06/2017 showed mild vascular prominence but no infiltrates were evident. Patient was admitted to the intensive care with a diagnosis of sepsis, blood cultures, hearing culture and sputum cultures were collected and sent. Patient was initially initiated on BiPAP ventilatory support, however subsequently got intubated for severe respiratory acidosis, with a blood gas of pO2 of 101, pCO2 87, and pH of 7.17. Blood gas after intubation was repeated at 3:18 AM and showed of pO2 1:15, pCO2 of 63, and pH of 7.27 on 60% FiO2. Patient is currently seen intensive care, sedated and ventilated on mechanical ventilator with settings of assist control mode with rates of 14, tidal volume of 500, FiO2 of 60%. His repeat blood gas this morning 7:20 AM shows pO2 of 161, pCO2 44, pH of 7.36, we will make further adjustment to the vent setting, we will increase the respiratory rate to 16, decrease tidal volume to 450, and decrease FiO2 to 40%. Maintenance IV fluids is 0.9 at 50, patient did receive a fluid bolus of 1 L of crystalloids for hypotension with systolic blood pressure in the 70s post intubation at 3:00 this morning, he is on norepinephrine drip at 3 mics per minute. His urine output is diminished, with many hours below 15 mL. Patient is a chronic hemodialysis patient. Chest x-ray from this morning 07/07/[address] Otoole and showed no lobar consolidation or pulmonary edema. Endotracheal tube and OG tube are in the satisfactory position. On 07/08/2017 patient is seen in the ICU, she was successfully extubated at around 9:00 on 07/07/2017. He had hemodialysis yesterday, with 1 L off. He is hemodynamically stable Levothroid has been on hold since yesterday morning. His last episode of fever was on 07/07/2017 at 1900, microbiology results have been reviewed and are negative thus far. Aunts continues on broad-spectrum empiric antibiotics with Zosyn and vancomycin. Patient is doing well, alert awake, following command, denies any acute distress. Lung sounds are clear diminished. No no rhonchi, no wheezes, no rales. Objective - Vital Signs Vital signs: Vital Signs Temp 98.1 F 07/08/17 08:00 Pulse 66 07/08/17 08:00 Resp 17 07/08/17 08:00 BP 146/58 07/08/17 08:00 Pulse Ox 100 07/08/17 08:00 Intake & Output 07/07/17 07/08/17 07/08/17 18:59 06:59 18:59 Intake Total 1472.026 535 240 Output Total 99 132 10 Balance 1373.026 403 230 Weight 80.739 kg 86.3 kg Intake: IV 850 60 0.9 @ 100 850 60 Intake, IV Titration 572.026 150 Amount ACETAMINOPHEN IV (For NPO 400 ) 1,000 mg In Empty Bag 1 bag @ 400 mls/hr IVPB Q6H [facility] Rx#:[id number] Magnesium Sulfate-D5w Pmx 100 1 gm In Dextrose/Water 1 100ml.bag @ 100 mls/hr IVPB ONCE ONE Rx#: [id number] Norepinephrin 4 mg-0.9% 71.626 Ns Pmx 4 mg In 250 ml @ Titrate IV .Q0M [facility] Rx#: [id number] Piperacillin-Tazobactam 3 50 50 .375 gm In Dextrose/Water 1 50ml.bag @ 12.5 mls/hr IVPB Q12HR [facility] Rx#: [id number] Propofol 1,000 mg In 100 50.4 ml @ Titrate IV .Q0M [facility] Rx#:[id number] Oral 325 240 Other 50 Output: Urine 99 132 10 Other: Voiding Method Indwelling Catheter Indwelling Catheter - Exam 56-year-old white male, awake alert, following commands, denies any acute distress. - Constitutional General appearance: obese - EENT Eyes: PERRLA, normal appearance ENT: NA/AT Ears: bilateral: normal - Neck Neck: normal ROM Carotids: bilateral: upstroke normal Thyroid: bilateral: normal size - Respiratory Respiratory: bilateral: CTA - Cardiovascular Rhythm: regular Heart sounds: normal: S1, S2 ankle Peripheral Edema: absent: None foot Peripheral Edema: absent: None - Gastrointestinal General gastrointestinal: no organomegaly, soft, no tenderness - Integumentary Integumentary: normal turgor - Neurologic Neurologic: CNII-XII intact - Musculoskeletal Musculoskeletal: strength equal bilaterally - Psychiatric Sedated and mechanically ventilated. - Labs CBC & Chem 7: 07/08/17 04:38 07/08/17 04:38 Labs: Abnormal Lab Results - Last 24 Hours (Table) 07/07/17 07/07/17 07/07/17 Range/Units 08:24 08:50 10:58 RBC (4.30-5.90) m/uL Hgb (13.0-17.5) gm/dL Hct (39.0-53.0) % RDW (11.5-15.5) % Plt Count (150-450) k/uL Lymphocytes # (1.0-4.8) k/uL Sodium (137-145) mmol/L Carbon Dioxide (22-30) mmol/L BUN (9-20) mg/dL Creatinine (0.66-1.25) mg/dL Glucose (74-99) mg/dL POC Glucose (mg/dL) 126 H (75-99) mg/dL Calcium (8.4-10.2) mg/dL Phosphorus (2.5-4.5) mg/dL Total Bilirubin (0.2-1.3) mg/dL Troponin I 0.149 H* (0.000-0.034) ng/mL Total Protein (6.3-8.2) g/dL Albumin (3.5-5.0) g/dL Urine Protein 3+ H (Negative) Urine Glucose (UA) 2+ H (Negative) Urine Ketones Trace H (Negative) Urine Blood Small H (Negative) Ur Leukocyte Esterase Trace H (Negative) Urine RBC 10 H (0-5) /hpf Urine WBC 15 H (0-5) /hpf Urine Mucus Rare H (None) /hpf Urine Opiates Screen (NotDetected) 07/07/17 07/07/17 07/07/17 Range/Units 11:50 12:20 12:40 RBC (4.30-5.90) m/uL Hgb (13.0-17.5) gm/dL Hct (39.0-53.0) % RDW (11.5-15.5) % Plt Count (150-450) k/uL Lymphocytes # (1.0-4.8) k/uL Sodium (137-145) mmol/L Carbon Dioxide (22-30) mmol/L BUN (9-20) mg/dL Creatinine (0.66-1.25) mg/dL Glucose (74-99) mg/dL POC Glucose (mg/dL) 126 H 121 H (75-99) mg/dL Calcium (8.4-10.2) mg/dL Phosphorus (2.5-4.5) mg/dL Total Bilirubin (0.2-1.3) mg/dL Troponin I (0.000-0.034) ng/mL Total Protein (6.3-8.2) g/dL Albumin (3.5-5.0) g/dL Urine Protein (Negative) Urine Glucose (UA) (Negative) Urine Ketones (Negative) Urine Blood (Negative) Ur Leukocyte Esterase (Negative) Urine RBC (0-5) /hpf Urine WBC (0-5) /hpf Urine Mucus (None) /hpf Urine Opiates Screen Detected H (NotDetected) 07/07/17 07/07/17 07/07/17 Range/Units 15:50 16:22 16:22 RBC (4.30-5.90) m/uL Hgb (13.0-17.5) gm/dL Hct (39.0-53.0) % RDW (11.5-15.5) % Plt Count (150-450) k/uL Lymphocytes # (1.0-4.8) k/uL Sodium (137-145) mmol/L Carbon Dioxide 31 H (22-30) mmol/L BUN 21 H (9-20) mg/dL Creatinine 3.57 H (0.66-1.25) mg/dL Glucose (74-99) mg/dL POC Glucose (mg/dL) 106 H (75-99) mg/dL Calcium 7.8 L (8.4-10.2) mg/dL Phosphorus (2.5-4.5) mg/dL Total Bilirubin 1.5 H (0.2-1.3) mg/dL Troponin I 0.173 H* (0.000-0.034) ng/mL Total Protein 5.4 L (6.3-8.2) g/dL Albumin 3.0 L (3.5-5.0) g/dL Urine Protein (Negative) Urine Glucose (UA) (Negative) Urine Ketones (Negative) Urine Blood (Negative) Ur Leukocyte Esterase (Negative) Urine RBC (0-5) /hpf Urine WBC (0-5) /hpf Urine Mucus (None) /hpf Urine Opiates Screen (NotDetected) 07/07/17 07/07/17 07/08/17 Range/Units 17:25 22:50 04:38 RBC 2.66 L (4.30-5.90) m/uL Hgb 8.9 L D (13.0-17.5) gm/dL Hct 26.4 L (39.0-53.0) % RDW 17.0 H (11.5-15.5) % Plt Count 40 L* (150-450) k/uL Lymphocytes # 0.6 L (1.0-4.8) k/uL Sodium (137-145) mmol/L Carbon Dioxide (22-30) mmol/L BUN (9-20) mg/dL Creatinine (0.66-1.25) mg/dL Glucose (74-99) mg/dL POC Glucose (mg/dL) 108 H (75-99) mg/dL Calcium (8.4-10.2) mg/dL Phosphorus (2.5-4.5) mg/dL Total Bilirubin (0.2-1.3) mg/dL Troponin I 0.197 H* (0.000-0.034) ng/mL Total Protein (6.3-8.2) g/dL Albumin (3.5-5.0) g/dL Urine Protein (Negative) Urine Glucose (UA) (Negative) Urine Ketones (Negative) Urine Blood (Negative) Ur Leukocyte Esterase (Negative) Urine RBC (0-5) /hpf Urine WBC (0-5) /hpf Urine Mucus (None) /hpf Urine Opiates Screen (NotDetected) 07/08/17 07/08/17 Range/Units 04:38 07:14 RBC (4.30-5.90) m/uL Hgb (13.0-17.5) gm/dL Hct (39.0-53.0) % RDW (11.5-15.5) % Plt Count (150-450) k/uL Lymphocytes # (1.0-4.8) k/uL Sodium 135 L (137-145) mmol/L Carbon Dioxide (22-30) mmol/L BUN 26 H (9-20) mg/dL Creatinine 4.20 H (0.66-1.25) mg/dL Glucose 121 H (74-99) mg/dL POC Glucose (mg/dL) 117 H (75-99) mg/dL Calcium 7.5 L (8.4-10.2) mg/dL Phosphorus 5.3 H (2.5-4.5) mg/dL Total Bilirubin (0.2-1.3) mg/dL Troponin I (0.000-0.034) ng/mL Total Protein (6.3-8.2) g/dL Albumin (3.5-5.0) g/dL Urine Protein (Negative) Urine Glucose (UA) (Negative) Urine Ketones (Negative) Urine Blood (Negative) Ur Leukocyte Esterase (Negative) Urine RBC (0-5) /hpf Urine WBC (0-5) /hpf Urine Mucus (None) /hpf Urine Opiates Screen (NotDetected) Microbiology - Last 24 Hours (Table) 07/06/17 19:30 Blood Culture - Preliminary Blood No Growth after 24 hours 07/07/17 02:50 Gram Stain - Preliminary Sputum Sputum Culture - Preliminary 07/07/17 08:24 Urine Culture - Preliminary Urine,Catheterized Assessment and Plan Plan: Assessment: #1. Sepsis, with unknown source. Febrile with a temp of 101.9F on presentation to the emergency room, acute mental status change, hypotension, acute hypoxemia and hypercapnic respiratory failure requiring intubation and mechanical ventilation. Blood cultures, urine culture and sputum culture have been collected and are negative thus far. Patient has been covered empirically with Zosyn, and vancomycin. #2. Acute hypoxic and hypercapnic respiratory failure secondary to possible fluid overload, and the patient with a history of ESRD on hemodialysis on Friday. Chest x-ray from 07/08/2017 has been reviewed with Dr. Otoole and shows no evidence of consolidation or infiltrate. #3. COPD, severity of which is unknown at this time. #4. History of sleep apnea, requiring CPAP, compliance is unknown at this time. #5. End-stage chronic kidney disease, requiring hemodialysis on Friday schedule. #6. Coronary Artery artery disease #7. History of CVA/TIA, CT brain on 07/06/2017 without any acute abnormalities #8. Diabetes mellitus #9. GERD/reflux #10. Hyperlipidemia #11. Hypertension #12. osteoarthritis Plan: Patient is doing well after extubation on 07/07/2017. He is awake alert, appropriate, no signs of delirium, or any other focal neural deficits. The EEG done on 07/07/2017 fail to show any focal, lateralizing, or epileptiform abnormalities. 2-D echo on 07/07/2017 showed normal to hyperdynamic left ventricular systolic function with EF of greater than 70. Hemodynamically stable, cultures are negative so far, continues on broad-spectrum empiric antibiotic coverage with vancomycin and Zosyn. Encourage pulmonary toileting, incentive spirometer to the bedside. Increase activity as tolerated. From critical care standpoint patient can go out of ICU today to medical surgical floor with remote telemetry. I performed a history & physical examination of the patient and discussed their management with my nurse practitioner, Yumiko Matta. I reviewed the nurse practitioner's note and agree with the documented findings and plan of care. Lung sounds are clear, no rhonchi, no wheezes, no rales. Doing well, stable for transfer out of ICU. The findings and the impression was discussed with the patient. I attest to the documentation by the nurse practitioner. Time with Patient: Less than 30
[2017-07-08] MEDS: INSULIN ASPART 100 UNIT/ML 1 ML 10 ML VIAL SQ SCH ×4 (08:52→21:21)
[2017-07-08] MEDS: amLODIPine 5 MG TAB PO SCH ×2 (09:19→21:19)
[2017-07-08] MEDS: CITALOPRAM HYDROBROMIDE 20 MG TAB PO SCH ×2 (09:20→09:38)
[2017-07-08] MEDS: FAMOTIDINE 20 MG/2 ML VIAL IV SCH (09:28)
[2017-07-08] MEDS: hydrALAZINE HCL 50 MG TAB PO SCH ×3 (09:28→21:20)
[2017-07-08] MEDS: LISINOPRIL 20 MG TAB PO SCH ×2 (09:30→21:19)
[2017-07-08] MEDS: PIPERACILLIN-TAZOBACTAM 3.375 GM in DEXTROSE/WATER 1 50ML.BAG IVPB SCH (09:32)
[2017-07-08] MEDS: IPRATROPIUM-ALBUTEROL 3 ML NEB INHALATION SCH ×3 (09:34→20:07)
[2017-07-08] MEDS ORDERED: VANCOMYCIN 1,500 MG in SODIUM CHLORIDE 0.9% 250 ML IVPB ONE (10:00)
[2017-07-08 11:54] LABS: Glucose,Whole Blood 183 mg/dL (75-99)
[2017-07-08] MEDS: ATORVASTATIN 40 MG TAB PO SCH (11:56)
[2017-07-08] MEDS ORDERED: CEFEPIME 1 GM in SODIUM CHLORIDE 0.9% 50 ML IVPB SCH (13:00)
--- NOTE | 2017-07-08 13:32 | CONS ---
CONSULTATION Mr. Silva is a 56-year-old gentleman with a known history of end-stage renal disease and previous history of pancreatitis. 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 He apparently had a cardiac cath about a week ago that revealed no significant CAD according to the patient's . He came into the hospital mainly with confusion, altered mental status when he got up at about 8 am yesterday and then after that he went through his normal dialysis process on Friday. He did not have any chest pain, but had some stable shortness of breath and mostly confusion. I was asked to see him because of elevated troponin. However, his confusion has resolved. His dialysis has been performed. He is hemodynamically stable, resting comfortably. The troponin profile does not suggest myocardial injury. Most of the numbers are flattened at the low end of abnormal range. He is resting comfortably without symptoms and a week ago or so his cardiac cath was unremarkable according to the patient's family, but this has not been verified. PAST MEDICAL HISTORY: 1. CAD with previous stenting. He underwent stenting of RCA by Dr. Apolinar Chandler in 2013. 2. Hypertension. 3. Diabetes with end-stage renal disease, on hemodialysis. 4. Sleep apnea and has not been wearing a BiPAP or CPAP for the last 1 month. MEDICATIONS: Medications at home include atorvastatin, Bumex, insulin, Aldactone, morphine, amlodipine, carvedilol. ALLERGIES: None. REVIEW OF SYSTEMS: Review of systems unremarkable other than above-mentioned facts. Laboratory data suggests that the troponins are all equivocal in the range of 0.06 and 0.197 and 0.173. These numbers in a patient with end-stage renal disease are not considered significant for myocardial injury. PHYSICAL EXAMINATION: Blood pressure today is 140/70, pulse rate is 60 per minute, regular. HEENT: Unremarkable. Fundus was not examined by me. Neck is supple. There is JVD of 1 cm. No carotid bruit. Heart exam reveals S1, S2 with a short systolic murmur. Lungs reveal diminished air entry. Abdomen is soft. Lower extremities reveal diminished pulses. Central nervous system grossly no focal deficits. There is generalized weakness. EKG revealed a sinus mechanism, leftward axis, poor R-wave progression, nonspecific ST- T changes. IMPRESSION: 1. Stable coronary artery disease. Recent cardiac cath revealed patent stent in RCA, according to the patient. There is no evidence to suggest myocardial injury. The patient's troponin profile does not reflect myocardial injury. 2. Hypertension. 3. Hyperlipidemia. 4. End-stage renal disease, on hemodialysis. 5. Obstructive sleep apnea syndrome, not compliant with CPAP and this could be a contributory factor for his confusion. The patient can be transferred to the med/surg unit and I will see him as needed. Thank you very much for the consult. RANJEET / ESTHELA: [id number] /
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
[2017-07-08] MEDS: CARVEDILOL 12.5 MG TAB PO SCH (16:54)
[2017-07-08 17:17] LABS: Glucose,Whole Blood 256 mg/dL (75-99)
[2017-07-08] MEDS ORDERED: CARVEDILOL 12.5 MG TAB PO SCH (17:30)
--- NOTE | 2017-07-08 18:35 | P.CONS ---
History of Present Illness - Reason for Consult Consult date: 07/08/17 thrombocytopenia, anemia Requesting physician: Tyler Archer - Chief Complaint confusion - History of Present Illness Mr. Silva is a pleasantly confused male pt who has seen Dr. Schreiber in the past for pancytopenia, pt has a history of heavy ETOH use, fatty liver, splenomegaly, recurrent pancreatitis, Hx splenic vein thrombosis and CKD on dialysis, pt has a radial heart cath last week but denied any recent stents. Pt was worked up in 2014 with no paraproteinemia identified, he had received procrit in the past with Nephrology, nothing consistent, he has not followed up with Dr. Schreiber since Aug 2016. Pt came to hospital with c/o confusion and fever, he was hypoxic on admit, he was intubated, treated for fluid overload and septic shock. He is extubated today, sitting at bedside, feels he is more alert and aware, daughter is at bedside to help with history. No recent episodes of bleeding, wt. loss, appetite fair, no nausea, vomiting, he is little SOB, no cough or hemoptysis, chnages in bowel or bladder habits, feels little weak. Review of Systems Pt was alert but confused to recent events, he denies acute physical c/o, feeling a little more clear then he did on admit, refer to HPI for specific details, otherwise 10 point ROS is negative ROS unobtainable: due to mental status Past Medical History Past Medical History: Coronary Artery Disease (CAD), Chest Pain / Angina, COPD, CVA/TIA, Diabetes Mellitus, GERD/Reflux, Hyperlipidemia, Hypertension, Liver Disease, Osteoarthritis (OA), Renal Disease, Respiratory Disorder, Sleep Apnea/ CPAP/BIPAP Additional Past Medical History / Comment(s): 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 Chronic kidney disease due to Diabetes, last received hemodialysis 03/31/17. Has been on hemodialysis X3 weeks. Pt states chronic low platelets and usually needs platelets prior to surgical procedures. Peritoneal dialysis catheter being removed because it is not functioning properly. History of Any Multi-Drug Resistant Organisms: None Reported Past Surgical History: Appendectomy, Back Surgery, Cholecystectomy, Heart Catheterization, Heart Catheterization With Stent Additional Past Surgical History / Comment(s): Tracheostomy, bladder stone removal, anterior cervical disc fusion, dialysis catheter insertion 12/27/16, jugular catheter insertion. Past Anesthesia/Blood Transfusion Reactions: No Reported Reaction Date of Last Stent Placement:: 2012 Past Psychological History: Anxiety, Depression Smoking Status: Former smoker Past Alcohol Use History: Heavy (past use) Past Drug Use History: None Reported - Past Family History Father Family Medical History: Coronary Artery Disease (CAD) Mother Family Medical History: Coronary Artery Disease (CAD) Brother(s) Family Medical History: Cancer Daughter(s) Family Medical History: Vascular Disorder (VSD) Medications and Allergies Home Medications Medication Instructions Recorded Confirmed Type Atorvastatin Calcium [Lipitor] 80 mg PO HS #30 tab 03/01/14 07/06/17 Rx Carvedilol [Coreg] 25 mg PO BID 12/26/16 07/06/17 History amLODIPine BESYLATE [Norvasc] 5 mg PO BID 12/26/16 07/06/17 History Nitroglycerin Sl Tabs [Nitrostat] 0.4 mg SUBLINGUAL Q5M PRN 06/01/17 07/06/17 History Omeprazole [PriLOSEC] 20 mg PO DAILY 06/01/17 07/06/17 History Cholecalciferol (Vitamin D3) 2,000 unit PO DAILY 06/02/17 07/06/17 History [Vitamin D3] Bumetanide [BUMEX] 2 mg PO BID #0 06/03/17 07/06/17 Rx Insulin Aspart [NovoLOG Flexpen] 9 unit SQ AC-TID #0 06/03/17 07/06/17 Rx Insulin Glargine [Lantus] 27 unit SQ DAILY #0 06/03/17 07/06/17 Rx Lisinopril [Zestril] 20 mg PO BID #60 tab 06/03/17 07/06/17 Rx Morphine Sulfate ER [Ms Contin] 30 mg PO BID tab 06/03/17 07/06/17 Rx Spironolactone [Aldactone] 50 mg PO DAILY #60 tab 06/03/17 07/06/17 Rx hydrALAZINE HCL [Apresoline] 50 mg PO TID #90 tab 06/03/17 07/06/17 Rx ARIPiprazole [Abilify] 5 mg PO DAILY 07/06/17 07/06/17 History HYDROcodone/APAP 10-325MG [[place] 1 tab PO TID PRN 07/06/17 07/06/17 History 10-325] Allergies Allergy/AdvReac Type Severity Reaction Status Date / Time No Known Allergies Allergy Verified 07/06/17 19:43 Physical Exam Vitals: Vital Signs Temp Pulse Pulse Resp BP BP Pulse Ox 07/08/17 17:12 98.9 F 70 20 157/75 98 07/08/17 16:30 97.8 F 65 15 164/62 98 07/08/17 16:00 15 07/08/17 14:00 69 18 137/58 100 07/08/17 12:30 71 27 H 160/65 99 07/08/17 12:00 97.7 F 63 14 156/57 99 07/08/17 11:00 61 13 149/81 98 07/08/17 10:00 65 22 135/56 98 07/08/17 09:44 68 07/08/17 09:34 68 94 L 07/08/17 09:30 64 17 148/61 97 07/08/17 08:00 98.1 F 66 17 146/58 100 07/08/17 07:00 71 22 135/57 100 07/08/17 06:00 66 16 155/66 98 07/08/17 05:00 74 18 169/81 98 07/08/17 04:00 99.0 F 78 18 166/67 97 07/08/17 03:00 75 16 165/66 97 07/08/17 02:00 73 21 152/63 98 07/08/17 01:00 81 20 145/62 99 07/08/17 00:03 71 22 149/66 100 07/08/17 00:00 98.5 F 71 18 149/66 100 07/07/17 23:00 64 20 135/60 99 07/07/17 22:00 65 16 143/62 100 07/07/17 21:00 65 18 152/55 99 07/07/17 20:32 71 07/07/17 20:22 73 07/07/17 20:00 98.5 F 68 16 148/63 100 07/07/17 19:00 100.3 F H 69 50 H 159/64 99 Intake and Output 07/08/17 07/08/17 07/08/17 06:59 14:59 22:59 Intake Total 385 640 Output Total 100 30 0 Balance 285 610 0 Intake: IV 60 300 0.9 @ 100 60 Piperacillin-Tazobactam 3 50 .375 gm In Dextrose/Water 1 50ml.bag @ 12.5 mls/hr IVPB Q12HR [facility] Rx#: [id number] Vancomycin 1,500 mg In 250 Sodium Chloride 0.9% 250 ml @ 125 mls/hr IVPB ONCE ONE Rx#:[id number] Intake, IV Titration 100 Amount Magnesium Sulfate-D5w Pmx 100 1 gm In Dextrose/Water 1 100ml.bag @ 100 mls/hr IVPB ONCE ONE Rx#: [id number] Oral 225 340 Output: Urine 100 30 0 Other: Voiding Method Indwelling Catheter Indwelling Catheter Weight 86.3 kg - Constitutional General appearance: average body habitus, cooperative, no acute distress - EENT Eyes: anicteric sclerae, PERRLA ENT: normal oropharynx - Neck Neck: no lymphadenopathy - Respiratory Respiratory: bilateral: diminished - Cardiovascular Heart sounds: normal: S1, S2 leg Peripheral Edema: bilateral: Trace - Gastrointestinal General gastrointestinal: no absent bowel sounds, no decreased bowel sounds, no distended, no hepatomegaly, no hyperactive bowel sounds, normal bowel sounds, no organomegaly, no rigid, no scaphoid, soft, no splenomegaly, no tenderness, no umbilical hernia, no ventral hernia - Integumentary Integumentary: pale - Neurologic Neurologic: CNII-XII intact - Musculoskeletal Musculoskeletal: generalized weakness, strength equal bilaterally - Psychiatric oriented to self, place, time, confused on recent events and not able to relay much medical history Psychiatric: A&O x's 3, appropriate affect Results CBC & Chem 7: 07/08/17 04:38 07/08/17 04:38 Labs: Abnormal Lab Results - Last 24 Hours (Table) 07/07/17 07/07/17 07/08/17 Range/Units 16:22 22:50 04:38 RBC 2.66 L (4.30-5.90) m/uL Hgb 8.9 L D (13.0-17.5) gm/dL Hct 26.4 L (39.0-53.0) % RDW 17.0 H (11.5-15.5) % Plt Count 40 L* (150-450) k/uL Lymphocytes # 0.6 L (1.0-4.8) k/uL Sodium (137-145) mmol/L Carbon Dioxide 31 H (22-30) mmol/L BUN 21 H (9-20) mg/dL Creatinine 3.57 H (0.66-1.25) mg/dL Glucose (74-99) mg/dL POC Glucose (mg/dL) (75-99) mg/dL Calcium 7.8 L (8.4-10.2) mg/dL Phosphorus (2.5-4.5) mg/dL Total Bilirubin 1.5 H (0.2-1.3) mg/dL Troponin I 0.197 H* (0.000-0.034) ng/mL Total Protein 5.4 L (6.3-8.2) g/dL Albumin 3.0 L (3.5-5.0) g/dL 07/08/17 07/08/17 07/08/17 Range/Units 04:38 07:14 11:52 RBC (4.30-5.90) m/uL Hgb (13.0-17.5) gm/dL Hct (39.0-53.0) % RDW (11.5-15.5) % Plt Count (150-450) k/uL Lymphocytes # (1.0-4.8) k/uL Sodium 135 L (137-145) mmol/L Carbon Dioxide (22-30) mmol/L BUN 26 H (9-20) mg/dL Creatinine 4.20 H (0.66-1.25) mg/dL Glucose 121 H (74-99) mg/dL POC Glucose (mg/dL) 117 H 183 H (75-99) mg/dL Calcium 7.5 L (8.4-10.2) mg/dL Phosphorus 5.3 H (2.5-4.5) mg/dL Total Bilirubin (0.2-1.3) mg/dL Troponin I (0.000-0.034) ng/mL Total Protein (6.3-8.2) g/dL Albumin (3.5-5.0) g/dL 07/08/17 Range/Units 17:07 RBC (4.30-5.90) m/uL Hgb (13.0-17.5) gm/dL Hct (39.0-53.0) % RDW (11.5-15.5) % Plt Count (150-450) k/uL Lymphocytes # (1.0-4.8) k/uL Sodium (137-145) mmol/L Carbon Dioxide (22-30) mmol/L BUN (9-20) mg/dL Creatinine (0.66-1.25) mg/dL Glucose (74-99) mg/dL POC Glucose (mg/dL) 256 H (75-99) mg/dL Calcium (8.4-10.2) mg/dL Phosphorus (2.5-4.5) mg/dL Total Bilirubin (0.2-1.3) mg/dL Troponin I (0.000-0.034) ng/mL Total Protein (6.3-8.2) g/dL Albumin (3.5-5.0) g/dL Microbiology - Last 24 Hours (Table) 07/07/17 08:24 Urine Culture - Final Urine,Catheterized 07/06/17 19:30 Blood Culture - Preliminary Blood No Growth after 24 hours 07/07/17 02:50 Gram Stain - Preliminary Sputum Sputum Culture - Preliminary Comments: EEG report reviewed EKG reviewed Chest x-ray: report reviewed CT Scan - head: report reviewed Assessment and Plan (1) Anemia Narrative/Plan: Anemia multifactorial including CKD and marrow suppression from history of heavy ETOH use. Baseline Hgb average for pt is 10 range over the last 2 years, this is noted to drop when pt is stressed/acutely ill. No need for transfusion at this time. Will order anemia work up for any deficiency. Pt has been on epogen in the past with dialysis, Nephrology following pt. Current Visit: Yes Status: Chronic Priority: Medium Code(s): D64.9 - ANEMIA, UNSPECIFIED SNOMED Code(s): 219756591 (2) Thrombocytopenia Narrative/Plan: Pt baseline platelet counts are in the 60,000-70,000 range which is safe for antiplatelet therapy. Plt drop during acute illness episodes, would anticipate that as pt recovers from current condition his plt would return to baseline. Recommend a plt count close to 50,000 or above for antiplatelet therapy, cardiac risk vs benefit being considered. Recommend close monitoring of CBC out patient. No further work up at this time. Current Visit: Yes Status: Chronic Priority: High Code(s): D69.6 - THROMBOCYTOPENIA, UNSPECIFIED SNOMED Code(s): 922969550
--- NOTE | 2017-07-08 20:25 | PN ---
PROGRESS NOTE Patient is seen for followup for end-stage renal disease. He is currently sitting up in a bedside chair. He is comfortable. He is not in any acute distress. Blood pressure is 164/62, heart rate 65 per minute. Patient is afebrile. Examination of the heart: S1, S2. Examination lungs: Bilateral breath sounds are heard. Decreased breath sounds at bases. Abdomen is soft, nontender. Examination lower extremities shows no significant edema. ADAPTIVE PHYSICAL EDUCATOR exam is grossly intact. LABS: Sodium 135, potassium 4.5, hemoglobin 8.9 g/dL, platelet count 40,000. ASSESSMENT: 1. End-stage renal disease on hemodialysis on a Friday, Friday, Friday schedule. We will arrange for hemodialysis in a.m. 2. Status post respiratory failure, etiology unclear. 3. Fever/sepsis. 4. Chronic obstructive pulmonary disease. 5. History of cerebrovascular accident and transient ischemic attack. PLAN: Hemodialysis in a.m. UF of about 1.5-2 L as tolerated. MMODL / IJN: [id number] /
[2017-07-08 20:48] LABS: Glucose,Whole Blood 181 mg/dL (75-99)
--- NOTE | 2017-07-08 20:51 | P.PN ---
Subjective Progress Note Date: 07/08/17 This patient is a 56-year-old right-handed white male who was seen yesterday in the intensive care unit for evaluation of lethargy and altered mental status. Patient has a known history of end-stage renal disease and pancreatitis in the past. He has been on hemodialysis 3 days a week. Patient presented with signs of increasing lethargy as well as acute hypoxic hypercapnic respiratory failure. He was initially intubated and transferred into the intensive care unit for close monitoring. He was extubated yesterday and remains off of the ventilator at this time. He is shown significant improvement in his overall mental status today. He did undergo hemodialysis yesterday and 1 L of fluid was removed. He is hemodynamically stable at this time. Cardiology is following the patient closely for elevated troponin levels. Patient apparently on underwent a cardiac catheterization at [facility] last week. Apparently there was no evidence of any significant coronary artery disease on this study. The patient did undergo routine EEG yesterday morning. This was reviewed yesterday the results of which indicated severe slowing. This would be consistent with a diffuse anoxic/hypoxic encephalopathy. He is showing improvement today in his overall mental status since admission to the ICU. Patient did undergo a computed tomography scan of the brain which failed to reveal any evidence of acute stroke or hemorrhage. the patient is laying in bed and is currently undergoing a breathing treatment. He did have some degree of hypoxic respiratory failure which may have contributed to his initial obtundation and lethargy. Patient still complains of being confused. We have recommended a follow-up EEG to be done for comparison to his initial study which was markedly abnormal. We will continue close neurological follow this patient in the ICU setting. Objective - Vital Signs Vital signs: Vital Signs Temp 97.7 F 07/08/17 12:00 Pulse 63 07/08/17 12:00 Resp 14 07/08/17 12:00 BP 156/57 07/08/17 12:00 Pulse Ox 99 07/08/17 12:00 Intake & Output 07/07/17 07/08/17 07/08/17 18:59 06:59 18:59 Intake Total 1472.026 535 640 Output Total 99 132 30 Balance 1373.026 403 610 Weight 80.739 kg 86.3 kg Intake: IV 850 60 300 0.9 @ 100 850 60 Piperacillin-Tazobactam 3 50 .375 gm In Dextrose/Water 1 50ml.bag @ 12.5 mls/hr IVPB Q12HR [facility] Rx#: [id number] Vancomycin 1,500 mg In 250 Sodium Chloride 0.9% 250 ml @ 125 mls/hr IVPB ONCE ONE Rx#:[id number] Intake, IV Titration 572.026 150 Amount ACETAMINOPHEN IV (For NPO 400 ) 1,000 mg In Empty Bag 1 bag @ 400 mls/hr IVPB Q6H [facility] Rx#:[id number] Magnesium Sulfate-D5w Pmx 100 1 gm In Dextrose/Water 1 100ml.bag @ 100 mls/hr IVPB ONCE ONE Rx#: [id number] Norepinephrin 4 mg-0.9% 71.626 Ns Pmx 4 mg In 250 ml @ Titrate IV .Q0M [facility] Rx#: [id number] Piperacillin-Tazobactam 3 50 50 .375 gm In Dextrose/Water 1 50ml.bag @ 12.5 mls/hr IVPB Q12HR [facility] Rx#: [id number] Propofol 1,000 mg In 100 50.4 ml @ Titrate IV .Q0M [facility] Rx#:[id number] Oral 325 340 Other 50 Output: Urine 99 132 30 Other: Voiding Method Indwelling Catheter Indwelling Catheter Indwelling Catheter - Exam Physical examination: PHYSICAL EXAMINATION: Patient is resting comfortably in bed. VITAL SIGNS: Blood pressure is [156/57]. Heart rate is [63]. Respiration is [14] . Temperature is [97.7]. HEENT: Head is atraumatic, neck is supple, there were no carotid bruits. CHEST: Lungs are clear to auscultation and percussion. CARDIAC: S1, S2 normal rate and rhythm. There is no murmur. ABDOMEN: Soft and nontender. Bowel sounds are present. EXTREMITIES: There is no pedal edema. Peripheral pulses are present. Neurological examination: Patient has a nonfocal neurological examination. He is more awake and alert and able to answer questions appropriately. His memory and intellectual functions still slightly impaired. - Labs CBC & Chem 7: 07/08/17 04:38 07/08/17 04:38 Labs: Abnormal Lab Results - Last 24 Hours (Table) 07/07/17 07/07/17 07/07/17 Range/Units 11:50 15:50 16:22 RBC (4.30-5.90) m/uL Hgb (13.0-17.5) gm/dL Hct (39.0-53.0) % RDW (11.5-15.5) % Plt Count (150-450) k/uL Lymphocytes # (1.0-4.8) k/uL Sodium (137-145) mmol/L Carbon Dioxide (22-30) mmol/L BUN (9-20) mg/dL Creatinine (0.66-1.25) mg/dL Glucose (74-99) mg/dL POC Glucose (mg/dL) 126 H 106 H (75-99) mg/dL Calcium (8.4-10.2) mg/dL Phosphorus (2.5-4.5) mg/dL Total Bilirubin (0.2-1.3) mg/dL Troponin I 0.173 H* (0.000-0.034) ng/mL Total Protein (6.3-8.2) g/dL Albumin (3.5-5.0) g/dL 07/07/17 07/07/17 07/07/17 Range/Units 16:22 17:25 22:50 RBC (4.30-5.90) m/uL Hgb (13.0-17.5) gm/dL Hct (39.0-53.0) % RDW (11.5-15.5) % Plt Count (150-450) k/uL Lymphocytes # (1.0-4.8) k/uL Sodium (137-145) mmol/L Carbon Dioxide 31 H (22-30) mmol/L BUN 21 H (9-20) mg/dL Creatinine 3.57 H (0.66-1.25) mg/dL Glucose (74-99) mg/dL POC Glucose (mg/dL) 108 H (75-99) mg/dL Calcium 7.8 L (8.4-10.2) mg/dL Phosphorus (2.5-4.5) mg/dL Total Bilirubin 1.5 H (0.2-1.3) mg/dL Troponin I 0.197 H* (0.000-0.034) ng/mL Total Protein 5.4 L (6.3-8.2) g/dL Albumin 3.0 L (3.5-5.0) g/dL 07/08/17 07/08/17 07/08/17 Range/Units 04:38 04:38 07:14 RBC 2.66 L (4.30-5.90) m/uL Hgb 8.9 L D (13.0-17.5) gm/dL Hct 26.4 L (39.0-53.0) % RDW 17.0 H (11.5-15.5) % Plt Count 40 L* (150-450) k/uL Lymphocytes # 0.6 L (1.0-4.8) k/uL Sodium 135 L (137-145) mmol/L Carbon Dioxide (22-30) mmol/L BUN 26 H (9-20) mg/dL Creatinine 4.20 H (0.66-1.25) mg/dL Glucose 121 H (74-99) mg/dL POC Glucose (mg/dL) 117 H (75-99) mg/dL Calcium 7.5 L (8.4-10.2) mg/dL Phosphorus 5.3 H (2.5-4.5) mg/dL Total Bilirubin (0.2-1.3) mg/dL Troponin I (0.000-0.034) ng/mL Total Protein (6.3-8.2) g/dL Albumin (3.5-5.0) g/dL 07/08/17 Range/Units 11:52 RBC (4.30-5.90) m/uL Hgb (13.0-17.5) gm/dL Hct (39.0-53.0) % RDW (11.5-15.5) % Plt Count (150-450) k/uL Lymphocytes # (1.0-4.8) k/uL Sodium (137-145) mmol/L Carbon Dioxide (22-30) mmol/L BUN (9-20) mg/dL Creatinine (0.66-1.25) mg/dL Glucose (74-99) mg/dL POC Glucose (mg/dL) 183 H (75-99) mg/dL Calcium (8.4-10.2) mg/dL Phosphorus (2.5-4.5) mg/dL Total Bilirubin (0.2-1.3) mg/dL Troponin I (0.000-0.034) ng/mL Total Protein (6.3-8.2) g/dL Albumin (3.5-5.0) g/dL Microbiology - Last 24 Hours (Table) 07/07/17 08:24 Urine Culture - Final Urine,Catheterized 07/06/17 19:30 Blood Culture - Preliminary Blood No Growth after 24 hours 07/07/17 02:50 Gram Stain - Preliminary Sputum Sputum Culture - Preliminary Assessment and Plan (1) Acute encephalopathy Current Visit: No Status: Acute SNOMED Code(s): 4062196 (2) Dialysis disequilibrium syndrome Current Visit: No Status: Acute SNOMED Code(s): 91183709 (3) Myoclonus Current Visit: No Status: Acute SNOMED Code(s): 43544898 (4) Renal failure Current Visit: No Status: Acute SNOMED Code(s): 26043957 Plan: this patient is a 56-year-old male who was admitted to intensive care unit with signs of acute respiratory failure. Patient was on the medical floor after being admitted for lethargy and confusion at home. He was on selective care at 3 AM this morning when he developed severe respiratory failure. He was intubated and transferred to the intensive care unit. The patient was able to be extubated this morning at 10 AM. He is now resting comfortably and is sitting up in a chair in the ICU next to his bed. Patient is able to answer simple questions. He still does seem confused. He did undergo a routine EEG earlier today which is reviewed and reveals signs of marketed slowing consistent with a diffuse encephalopathy. This EEG results were reviewed today with the patient. He does have evidence of excessive daytime drowsiness suggesting possibility of narcolepsy. We have suggested he be considered for a sleep study in the outpatient setting for further evaluation. Would recommend ongoing treatment of underlying sepsis. the patient is more awake and alert today. He is undergoing a breathing treatment this evening. He still feels that he is confused and his memory is still problematic for him. We will have a repeat EEG study done tomorrow for comparison to his markedly abnormal study a few days ago. The patient likely did have some degree of hypoxic injury to the brain secondary to his poor respiratory status. His overall prognosis at this time remains guarded. We will continue close neurological follow-up with this patient during this admission.
[2017-07-09] MEDS: BUMETANIDE 1 MG TAB PO SCH (04:08)
[2017-07-09] MEDS: SPIRONOLACTONE 25 MG TAB PO SCH (04:08)
[2017-07-09] MEDS: INSULIN DETEMIR 100 UNIT/ML 10 ML VIAL SQ SCH (04:08)
[2017-07-09 07:43] LABS: Glucose,Whole Blood 189 mg/dL (75-99)
[2017-07-09] MEDS: IPRATROPIUM-ALBUTEROL 3 ML NEB INHALATION SCH ×3 (08:00→19:36)
[2017-07-09 08:04] LABS: Anisocytosis Slight; Basophils % (A) 1 %; CH 33.2; CHCM 34.2; Eosinophils % (A) 1 %; HCT 23.7 % (39.0-53.0); HDW 3.53; HGB 8.3 gm/dL (13.0-17.5); Luc # (Auto) 0.04; Luc % (Auto) 2; Lymphocytes # (A) 0.5 k/uL (1.0-4.8); Lymphocytes % (A) 18 %; MCH 34.2 pg (25.0-35.0); MCV 97.8 fL (80.0-100.0); Macrocytosis Slight; Mean Platelet Volume 9.3; Monocytes # (A) 0.2 k/uL (0-1.0); Monocytes % (A) 6 %; Neutrophils % (A) 73 %; Poikilocytosis Slight; RBC 2.43 m/uL (4.30-5.90); RDW 16.5 % (11.5-15.5); WBC 2.7 k/uL (3.8-10.6); WBC (Perox) 2.72
[2017-07-09 08:28] LABS: Calcium 7.8 mg/dL (8.4-10.2); Magnesium 2.3 mg/dL (1.6-2.3); Phosphorus 3.7 mg/dL (2.5-4.5); Potassium 4.3 mmol/L (3.5-5.1)
[2017-07-09] MEDS: INSULIN ASPART 100 UNIT/ML 1 ML 10 ML VIAL SQ SCH ×4 (08:46→21:05)
[2017-07-09] MEDS: FAMOTIDINE 20 MG/2 ML VIAL IV SCH (08:47)
[2017-07-09] MEDS: CARVEDILOL 12.5 MG TAB PO SCH ×2 (08:51→17:02)
[2017-07-09] MEDS: hydrALAZINE HCL 50 MG TAB PO SCH ×4 (08:51→21:05)
[2017-07-09] MEDS: CALCIUM ACETATE 667 MG CAP PO SCH ×3 (08:51→17:02)
[2017-07-09] MEDS: LISINOPRIL 20 MG TAB PO SCH ×2 (08:51→21:05)
[2017-07-09] MEDS: ATORVASTATIN 40 MG TAB PO SCH (08:51)
[2017-07-09] MEDS: amLODIPine 5 MG TAB PO SCH ×2 (08:51→21:05)
[2017-07-09 10:42] LABS: Reticulocyte % 2.1 % (0.5-2.0)
[2017-07-09] MEDS ORDERED: ONDANSETRON 4 MG/2 ML VIAL IVP PRN (11:07)
[2017-07-09 12:15] LABS: Glucose,Whole Blood 193 mg/dL (75-99)
--- NOTE | 2017-07-09 13:26 | P.PN ---
Subjective Progress Note Date: 07/09/17 Principal diagnosis: Septic shock, with unknown source. Acute hypoxic and hypercapnic respiratory failure due to fluid overload, requiring mechanical ventilation This is a 56-year-old white male who presented to the emergency room on 2016 at around 1900 with acute change in mental status, fevers that started at around 8:00 in the morning. All history was obtained from the chart and the nursing staff, the patient is sedated and mechanically ventilated. Patient denied any other complaints. Past medical history is positive for coronary artery disease, COPD, CVA/TIA, diabetes mellitus, end-stage renal disease currently on hemodialysis Friday, hyperlipidemia, hypertension , sleep apnea on home CPAP. On presentation to the emergency department patient was found to have a fever of 101.9, hypoxemic with O2 sat 86% on room air, no signs of leukocytosis, WBC is 7.4, no significant coagulopathy or electrolyte abnormality. Creatinine was 6.6, with BUNs of 43 on admission. Lactic acid was normal at 0.6, troponin 0.066, CK 26. He had a mild elevation of total bilirubin 1.4, liver enzymes and ammonia level were within normal levels. Patient had of heart catheterization on , 07/03/2017 through the right radial artery approach, the results of which are not available at this time. CT of the head and 07/07/2017 showed no acute abnormality. EKG on 07/06/2017 showed normal sinus rhythm with a possible anterior infarct, age undetermined. Chest x-ray on 07/06/2017 showed mild vascular prominence but no infiltrates were evident. Patient was admitted to the intensive care with a diagnosis of sepsis, blood cultures, hearing culture and sputum cultures were collected and sent. Patient was initially initiated on BiPAP ventilatory support, however subsequently got intubated for severe respiratory acidosis, with a blood gas of pO2 of 101, pCO2 87, and pH of 7.17. Blood gas after intubation was repeated at 3:18 AM and showed of pO2 1:15, pCO2 of 63, and pH of 7.27 on 60% FiO2. Patient is currently seen intensive care, sedated and ventilated on mechanical ventilator with settings of assist control mode with rates of 14, tidal volume of 500, FiO2 of 60%. His repeat blood gas this morning 7:20 AM shows pO2 of 161, pCO2 44, pH of 7.36, we will make further adjustment to the vent setting, we will increase the respiratory rate to 16, decrease tidal volume to 450, and decrease FiO2 to 40%. Maintenance IV fluids is 0.9 at 50, patient did receive a fluid bolus of 1 L of crystalloids for hypotension with systolic blood pressure in the 70s post intubation at 3:00 this morning, he is on norepinephrine drip at 3 mics per minute. His urine output is diminished, with many hours below 15 mL. Patient is a chronic hemodialysis patient. Chest x-ray from this morning 07/07/[address] Otoole and showed no lobar consolidation or pulmonary edema. Endotracheal tube and OG tube are in the satisfactory position. On 07/08/2017 patient is seen in the ICU, she was successfully extubated at around 9:00 on 07/07/2017. He had hemodialysis yesterday, with 1 L off. He is hemodynamically stable Levothroid has been on hold since yesterday morning. His last episode of fever was on 07/07/2017 at 1900, microbiology results have been reviewed and are negative thus far. Aunts continues on broad-spectrum empiric antibiotics with Zosyn and vancomycin. Patient is doing well, alert awake, following command, denies any acute distress. Lung sounds are clear diminished. No no rhonchi, no wheezes, no rales. On 07/09/2017 patient is seen in follow-up on medical surgical floor. He is doing well, other than being a little fatigued. At the time of evaluation she is resting in bed with his CPAP machine on, at his home settings. Denies any acute distress. Lung sounds are diminished to auscultation, but no rhonchi, no rales, no wheezes noted. Patient is supposed to have dialysis today, ultrafiltration with a goal of 1.5-2 L off as tolerated. No febrile episodes in last 48 hours, she is on room air when he is not on CPAP with O2 sat at 96%. Respirations on even and nonlabored, mentation is within normal limits. Objective - Vital Signs Vital signs: Vital Signs Temp 97.9 F 07/09/17 07:00 Pulse 80 07/09/17 08:00 Resp 20 07/09/17 08:00 BP 183/71 07/09/17 07:00 Pulse Ox 96 07/09/17 07:00 Intake & Output 07/08/17 07/09/17 07/09/17 18:59 06:59 18:59 Intake Total 640 850 240 Output Total 30 Balance 610 850 240 Intake: IV 300 Piperacillin-Tazobactam 3 50 .375 gm In Dextrose/Water 1 50ml.bag @ 12.5 mls/hr IVPB Q12HR [facility] Rx#: [id number] Vancomycin 1,500 mg In 250 Sodium Chloride 0.9% 250 ml @ 125 mls/hr IVPB ONCE ONE Rx#:[id number] Oral 340 850 240 Output: Urine 30 Other: Voiding Method Indwelling Catheter Toilet Toilet Urinal Urinal # Voids 0 # Bowel Movements 1 - Exam 56-year-old white male, awake alert, following commands, denies any acute distress. - Constitutional General appearance: obese - EENT Eyes: PERRLA, normal appearance ENT: NA/AT Ears: bilateral: normal - Neck Neck: normal ROM Carotids: bilateral: upstroke normal Thyroid: bilateral: normal size - Respiratory Respiratory: bilateral: CTA - Cardiovascular Rhythm: regular Heart sounds: normal: S1, S2 ankle Peripheral Edema: absent: None foot Peripheral Edema: absent: None - Gastrointestinal General gastrointestinal: no organomegaly, soft, no tenderness - Integumentary Integumentary: normal turgor - Neurologic Neurologic: CNII-XII intact - Musculoskeletal Musculoskeletal: strength equal bilaterally - Psychiatric Awake alert, no signs of delirium, intact judgment and insight. - Labs CBC & Chem 7: 07/09/17 07:36 07/09/17 07:36 Labs: Abnormal Lab Results - Last 24 Hours (Table) 07/08/17 07/08/17 07/09/17 Range/Units 17:07 20:29 07:10 WBC (3.8-10.6) k/uL RBC (4.30-5.90) m/uL Hgb (13.0-17.5) gm/dL Hct (39.0-53.0) % RDW (11.5-15.5) % Plt Count (150-450) k/uL Lymphocytes # (1.0-4.8) k/uL Retic Count (0.5-2.0) % BUN (9-20) mg/dL Creatinine (0.66-1.25) mg/dL Glucose (74-99) mg/dL POC Glucose (mg/dL) 256 H 181 H 189 H (75-99) mg/dL Calcium (8.4-10.2) mg/dL 07/09/17 07/09/17 07/09/17 Range/Units 07:36 07:36 07:36 WBC 2.7 L (3.8-10.6) k/uL RBC 2.43 L (4.30-5.90) m/uL Hgb 8.3 L (13.0-17.5) gm/dL Hct 23.7 L (39.0-53.0) % RDW 16.5 H (11.5-15.5) % Plt Count 33 L* (150-450) k/uL Lymphocytes # 0.5 L (1.0-4.8) k/uL Retic Count 2.1 H (0.5-2.0) % BUN 44 H (9-20) mg/dL Creatinine 5.65 H* (0.66-1.25) mg/dL Glucose 170 H (74-99) mg/dL POC Glucose (mg/dL) (75-99) mg/dL Calcium 7.8 L (8.4-10.2) mg/dL 07/09/17 Range/Units 12:11 WBC (3.8-10.6) k/uL RBC (4.30-5.90) m/uL Hgb (13.0-17.5) gm/dL Hct (39.0-53.0) % RDW (11.5-15.5) % Plt Count (150-450) k/uL Lymphocytes # (1.0-4.8) k/uL Retic Count (0.5-2.0) % BUN (9-20) mg/dL Creatinine (0.66-1.25) mg/dL Glucose (74-99) mg/dL POC Glucose (mg/dL) 193 H (75-99) mg/dL Calcium (8.4-10.2) mg/dL Microbiology - Last 24 Hours (Table) 07/07/17 02:50 Gram Stain - Final Sputum Sputum Culture - Final 07/06/17 19:30 Blood Culture - Preliminary Blood No Growth after 48 hours 07/07/17 08:24 Urine Culture - Final Urine,Catheterized Assessment and Plan Plan: Assessment: #1. Sepsis, with unknown source. Febrile with a temp of 101.9F on presentation to the emergency room, acute mental status change, hypotension, acute hypoxemia and hypercapnic respiratory failure requiring intubation and mechanical ventilation. Blood cultures, urine culture and sputum culture have been collected and are negative thus far. Patient has been covered empirically with Zosyn, and vancomycin. #2. Acute hypoxic and hypercapnic respiratory failure secondary to possible fluid overload, and the patient with a history of ESRD on hemodialysis on Friday. Chest x-ray from 07/08/2017 has been reviewed with Dr. Otoole and shows no evidence of consolidation or infiltrate. #3. COPD, severity of which is unknown at this time. #4. History of sleep apnea, requiring CPAP #5. End-stage chronic kidney disease, requiring hemodialysis on Friday schedule. #6. Coronary Artery artery disease #7. History of CVA/TIA, CT brain on 07/06/2017 without any acute abnormalities #8. Diabetes mellitus #9. GERD/reflux #10. Hyperlipidemia #11. Hypertension #12. osteoarthritis Plan: Patient is doing well after extubation on 07/07/2017. He is awake alert, appropriate, no signs of delirium, or any other focal neural deficits. The EEG done on 07/07/2017 fail to show any focal, lateralizing, or epileptiform abnormalities. 2-D echo on 07/07/2017 showed normal to hyperdynamic left ventricular systolic function with EF of greater than 70. Hemodynamically stable, cultures are negative so far, continues on broad-spectrum empiric antibiotic coverage with vancomycin and Zosyn. Encourage pulmonary toileting, incentive spirometer to the bedside. Increase activity as tolerated. Continues to improve on medical surgical floor, without any acute or specific complaints. Hemodialysis today with a goal of 1.5-2 L off as tolerated. Further recommendations to follow based on the course of recovery. I performed a history & physical examination of the patient and discussed their management with my nurse practitioner, Yumiko Matta. I reviewed the nurse practitioner's note and agree with the documented findings and plan of care. Lung sounds are diminished. Doing well, stable on medical surgical floor, awaiting dialysis. The findings and the impression was discussed with the patient. I attest to the documentation by the nurse practitioner. Time with Patient: Less than 30
[2017-07-09] MEDS ORDERED: CARVEDILOL 12.5 MG TAB PO ONE (13:45)
[2017-07-09] MEDS ORDERED: LEVOFLOXACIN 250 MG TAB PO SCH (14:00)
[2017-07-09] MEDS: ARIPiprazole 5 MG TAB PO SCH (14:02)
[2017-07-09 14:10] LABS: VBG PH 7.42 (7.31-7.41)
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
[2017-07-09 16:18] LABS: Iron Saturation 35.33 (15.00-50.00)
[2017-07-09 16:50] LABS: Glucose,Whole Blood 248 mg/dL (75-99)
[2017-07-09] MEDS ORDERED: DARBEPOETIN ALFA 40 MCG/0.4 ML SYRINGE SQ SCH (18:15)
[2017-07-09] MEDS ORDERED: HEPARIN SODIUM,PORCINE 5,000 UNIT/ML 1 ML VIAL ONE (19:05)
--- NOTE | 2017-07-09 19:30 | PN ---
PROGRESS NOTE Patient is seen for followup for end-stage renal disease. He is currently lying in bed. He states he feels lethargic and there is no other complaints of chest pain or shortness of breath or abdominal pain. PHYSICAL EXAMINATION: Blood pressure was 155/94, earlier it was 183/71. Examination of the heart S1, S2. Examination lungs decreased breath sounds at bases. Abdomen is soft, nontender. Examination lower extremities shows no evidence of edema. LABS SHOW: Sodium 137, potassium 4.3, hemoglobin 8.3 g/dL. ASSESSMENT: 1. End-stage renal disease, on hemodialysis on a Friday, Friday, Friday schedule. The patient will be dialyzed today. 2. Chronic thrombocytopenia. 3. Status post respiratory failure, etiology unclear. 4. A fever/sepsis, possibly pneumonia. All cultures are negative thus far. 5. Hypertension. Blood pressure was elevated earlier this morning. It seems to have improved now. PLAN: Hemodialysis today and maintain patient on Aranesp for anemia of chronic disease. MMODL / IJN: [id number] /
[2017-07-09 20:42] LABS: Glucose,Whole Blood 262 mg/dL (75-99)
[2017-07-09] MEDS ORDERED: ACETAMINOPHEN TAB 325 MG TAB PO PRN (22:44)
--- NOTE | 2017-07-09 22:44 | P.PN ---
Subjective Progress Note Date: 07/09/17 This patient is a 56-year-old right-handed white male who was seen yesterday in the intensive care unit for evaluation of lethargy and altered mental status. Patient has a known history of end-stage renal disease and pancreatitis in the past. He has been on hemodialysis 3 days a week. Patient presented with signs of increasing lethargy as well as acute hypoxic hypercapnic respiratory failure. He was initially intubated and transferred into the intensive care unit for close monitoring. He was extubated yesterday and remains off of the ventilator at this time. He is shown significant improvement in his overall mental status today. He did undergo hemodialysis yesterday and 1 L of fluid was removed. He is hemodynamically stable at this time. Cardiology is following the patient closely for elevated troponin levels. Patient apparently on underwent a cardiac catheterization at [facility] last week. Apparently there was no evidence of any significant coronary artery disease on this study. The patient did undergo routine EEG yesterday morning. This was reviewed yesterday the results of which indicated severe slowing. This would be consistent with a diffuse anoxic/hypoxic encephalopathy. He is showing improvement today in his overall mental status since admission to the ICU. Patient did undergo a computed tomography scan of the brain which failed to reveal any evidence of acute stroke or hemorrhage. the patient is laying in bed and is currently undergoing a breathing treatment. He did have some degree of hypoxic respiratory failure which may have contributed to his initial obtundation and lethargy. Patient still complains of being confused. We have recommended a follow-up EEG to be done for comparison to his initial study which was markedly abnormal. Hopefully this EEG will be done tomorrow morning. The patient is much more awake and alert. He still complains of symptoms of excessive drowsiness and sleepiness. We have suggested he should be reevaluated in the sleep center with a sleep study and evaluation for narcolepsy. In narcolepsy panel was drawn for the patient today as well. He is being considered for possible discharge home tomorrow. He does seem to be making some progress today. He should follow-up with his primary care physician soon after discharge. His overall prognosis remains guarded. Objective - Vital Signs Vital signs: Vital Signs Temp 98.9 F 07/09/17 14:56 Pulse 69 07/09/17 16:00 Resp 20 07/09/17 16:00 BP 155/94 07/09/17 14:56 Pulse Ox 98 07/09/17 14:56 Intake & Output 07/09/17 07/09/17 07/10/17 06:59 18:59 06:59 Intake Total 850 240 Balance 850 240 Intake: Oral 850 240 Other: Voiding Method Toilet Toilet Urinal Urinal # Voids 0 # Bowel Movements 1 - Exam Physical examination: PHYSICAL EXAMINATION: Patient is resting comfortably in bed. VITAL SIGNS: Blood pressure is [155/94]. Heart rate is [69]. Respiration is [20] . Temperature is [98.9]. HEENT: Head is atraumatic, neck is supple, there were no carotid bruits. CHEST: Lungs are clear to auscultation and percussion. CARDIAC: S1, S2 normal rate and rhythm. There is no murmur. ABDOMEN: Soft and nontender. Bowel sounds are present. EXTREMITIES: There is no pedal edema. Peripheral pulses are present. Neurological examination: Patient has a nonfocal neurological examination. He is more awake and alert and able to answer questions appropriately. His memory and intellectual functions still slightly impaired. - Labs CBC & Chem 7: 07/09/17 07:36 07/09/17 07:36 Labs: Abnormal Lab Results - Last 24 Hours (Table) 07/08/17 07/09/17 07/09/17 Range/Units 20:29 07:10 07:36 WBC (3.8-10.6) k/uL RBC (4.30-5.90) m/uL Hgb (13.0-17.5) gm/dL Hct (39.0-53.0) % RDW (11.5-15.5) % Plt Count (150-450) k/uL Lymphocytes # (1.0-4.8) k/uL Retic Count (0.5-2.0) % VBG pH (7.31-7.41) VBG HCO3 (24-28) mmol/L BUN (9-20) mg/dL Creatinine (0.66-1.25) mg/dL Glucose (74-99) mg/dL POC Glucose (mg/dL) 181 H 189 H (75-99) mg/dL Calcium (8.4-10.2) mg/dL Iron 59 L (65-175) ug/dL TIBC 167 L (228-460) ug/dL Ferritin 464.9 H (22.0-322.0) ng/mL 07/09/17 07/09/17 07/09/17 Range/Units 07:36 07:36 07:36 WBC 2.7 L (3.8-10.6) k/uL RBC 2.43 L (4.30-5.90) m/uL Hgb 8.3 L (13.0-17.5) gm/dL Hct 23.7 L (39.0-53.0) % RDW 16.5 H (11.5-15.5) % Plt Count 33 L* (150-450) k/uL Lymphocytes # 0.5 L (1.0-4.8) k/uL Retic Count 2.1 H (0.5-2.0) % VBG pH (7.31-7.41) VBG HCO3 (24-28) mmol/L BUN 44 H (9-20) mg/dL Creatinine 5.65 H* (0.66-1.25) mg/dL Glucose 170 H (74-99) mg/dL POC Glucose (mg/dL) (75-99) mg/dL Calcium 7.8 L (8.4-10.2) mg/dL Iron (65-175) ug/dL TIBC (228-460) ug/dL Ferritin (22.0-322.0) ng/mL 07/09/17 07/09/17 07/09/17 Range/Units 12:11 13:53 16:48 WBC (3.8-10.6) k/uL RBC (4.30-5.90) m/uL Hgb (13.0-17.5) gm/dL Hct (39.0-53.0) % RDW (11.5-15.5) % Plt Count (150-450) k/uL Lymphocytes # (1.0-4.8) k/uL Retic Count (0.5-2.0) % VBG pH 7.42 H (7.31-7.41) VBG HCO3 29 H (24-28) mmol/L BUN (9-20) mg/dL Creatinine (0.66-1.25) mg/dL Glucose (74-99) mg/dL POC Glucose (mg/dL) 193 H 248 H (75-99) mg/dL Calcium (8.4-10.2) mg/dL Iron (65-175) ug/dL TIBC (228-460) ug/dL Ferritin (22.0-322.0) ng/mL Microbiology - Last 24 Hours (Table) 07/07/17 02:50 Gram Stain - Final Sputum Sputum Culture - Final 07/06/17 19:30 Blood Culture - Preliminary Blood No Growth after 48 hours Assessment and Plan (1) Acute encephalopathy Current Visit: No Status: Acute SNOMED Code(s): 4024226 (2) Dialysis disequilibrium syndrome Current Visit: No Status: Acute SNOMED Code(s): 04351044 (3) Myoclonus Current Visit: No Status: Acute SNOMED Code(s): 79968476 (4) Renal failure Current Visit: No Status: Acute SNOMED Code(s): 23391273 Plan: This patient is a 56-year-old male who initially was admitted to hospital with severe obtundation and altered mental status. He was found to have evidence of acute hypoxic and hypercapnic respiratory failure. He was initially intubated and then was able to be extubated in the ICU. He is now been followed closely on the medical floor. Today he is much more awake and alert. He is following all commands. He is being evaluated for possibility of a sleep disorder such as narcolepsy. Narcolepsy panel blood test was drawn for him today. He should follow-up in the sleep center for further management upon discharge from hospital. The patient is to continue on his CPAP machine. Currently he was not using his CPAP for over a month. This may have been one of the reasons for his initial obtundation. He is scheduled for a follow-up EEG tomorrow for comparison to his initial study which was severely slow. He does seem to show improvement overall in terms of his cognitive function today. We will continue close neurological follow-up with this patient. This case was discussed today at length with Dr. Ramirez. She is aware of our findings and recommendations on this patient. We will continue close neurological follow-up for this patient during this admission.
[2017-07-09] MEDS ORDERED: ATORVASTATIN 80 MG TAB PO SCH (23:00)
[2017-07-09] MEDS: PREGABALIN 50 MG CAP PO SCH (23:12)
[2017-07-09 23:20] VITALS: RESP 18
[2017-07-10 04:02] LABS: Hepatitis B Surface Antibody Non-Reactive (Non-Reactive)
[2017-07-10 07:08] LABS: Glucose,Whole Blood 157 mg/dL (75-99)
[2017-07-10] MEDS: IPRATROPIUM-ALBUTEROL 3 ML NEB INHALATION SCH ×2 (07:12→11:04)
[2017-07-10 07:45] VITALS: BP 166/80; TEMP 98.8
[2017-07-10 08:06] LABS: Basophils % (A) 1 %; CH 34.4; CHCM 34.6; Eosinophils % (A) 1 %; HCT 23.7 % (39.0-53.0); HDW 3.82; HGB 7.8 gm/dL (13.0-17.5); Luc # (Auto) 0.04; Luc % (Auto) 2; Lymphocytes # (A) 0.5 k/uL (1.0-4.8); Lymphocytes % (A) 23 %; MCHC 33.1 g/dL (31.0-37.0); MCV 99.9 fL (80.0-100.0); Macrocytosis Slight; Mean Platelet Volume 8.5; Monocytes # (A) 0.1 k/uL (0-1.0); Monocytes % (A) 6 %; Neutrophils # (A) 1.4 k/uL (1.3-7.7); Neutrophils % (A) 68 %; Poikilocytosis Slight; RBC 2.37 m/uL (4.30-5.90); RDW 15.5 % (11.5-15.5); WBC 2.1 k/uL (3.8-10.6); WBC (Perox) 2.06
[2017-07-10 08:15] LABS: Calcium 7.9 mg/dL (8.4-10.2); Magnesium 2.1 mg/dL (1.6-2.3); Phosphorus 3.2 mg/dL (2.5-4.5)
[2017-07-10] MEDS: CARVEDILOL 12.5 MG TAB PO SCH (09:51)
[2017-07-10] MEDS: LISINOPRIL 20 MG TAB PO SCH (09:51)
[2017-07-10] MEDS: INSULIN ASPART 100 UNIT/ML 1 ML 10 ML VIAL SQ SCH ×2 (09:51→12:54)
[2017-07-10] MEDS: CALCIUM ACETATE 667 MG CAP PO SCH ×2 (09:51→12:53)
[2017-07-10] MEDS: hydrALAZINE HCL 50 MG TAB PO SCH (09:51)
[2017-07-10] MEDS: ARIPiprazole 5 MG TAB PO SCH (09:51)
[2017-07-10] MEDS: amLODIPine 5 MG TAB PO SCH (09:51)
[2017-07-10] MEDS: FAMOTIDINE 20 MG/2 ML VIAL IV SCH (09:51)
[2017-07-10] MEDS: PREGABALIN 50 MG CAP PO SCH (10:38)
--- NOTE | 2017-07-10 11:03 | P.PN ---
Subjective Patient is seen in follow-up for end-stage renal disease. He is maintained on hemodialysis on a Friday schedule via right chest permacath. No active complaints at this time. He is currently resting in bed. Oral intake is good. Denies chest pain or shortness of breath. Vital signs are stable. General: The patient appeared well nourished and normally developed. HEENT: Head exam is unremarkable. Neck is without jugular venous distension. LUNGS: Lungs are clear to auscultation and percussion. Breath sounds decreased. HEART: Rate and Rhythm are regular. First and second heart sounds normal. No murmurs, rubs or gallops. ABDOMEN: Abdominal exam reveals normal bowel sounds. Non-tender and non- distended. No evidence of peritonitis. EXTREMITITES: No clubbing, cyanosis, or edema. Objective - Vital Signs Vital signs: Vital Signs Temp 98.8 F 07/10/17 07:00 Pulse 68 07/10/17 07:00 Resp 18 07/10/17 07:00 BP 166/80 07/10/17 07:00 Pulse Ox 98 07/10/17 07:00 Intake & Output 07/09/17 07/10/17 07/10/17 18:59 06:59 18:59 Intake Total 240 Balance 240 Intake: Oral 240 Other: Voiding Method Toilet Toilet Urinal Urinal # Voids 1 - Labs CBC & Chem 7: 07/10/17 07:21 07/10/17 07:21 Labs: Abnormal Lab Results - Last 24 Hours (Table) 07/09/17 07/09/17 07/09/17 Range/Units 07:36 07:36 12:11 WBC (3.8-10.6) k/uL RBC (4.30-5.90) m/uL Hgb (13.0-17.5) gm/dL Hct (39.0-53.0) % Plt Count (150-450) k/uL Lymphocytes # (1.0-4.8) k/uL VBG pH (7.31-7.41) VBG HCO3 (24-28) mmol/L BUN (9-20) mg/dL Creatinine (0.66-1.25) mg/dL Glucose (74-99) mg/dL POC Glucose (mg/dL) 193 H (75-99) mg/dL Calcium (8.4-10.2) mg/dL Iron 59 L (65-175) ug/dL TIBC 167 L (228-460) ug/dL Ferritin 464.9 H (22.0-322.0) ng/mL RBC Folate 1,496 H (280 - 791) ng/mL 07/09/17 07/09/17 07/09/17 Range/Units 13:53 16:48 20:41 WBC (3.8-10.6) k/uL RBC (4.30-5.90) m/uL Hgb (13.0-17.5) gm/dL Hct (39.0-53.0) % Plt Count (150-450) k/uL Lymphocytes # (1.0-4.8) k/uL VBG pH 7.42 H (7.31-7.41) VBG HCO3 29 H (24-28) mmol/L BUN (9-20) mg/dL Creatinine (0.66-1.25) mg/dL Glucose (74-99) mg/dL POC Glucose (mg/dL) 248 H 262 H (75-99) mg/dL Calcium (8.4-10.2) mg/dL Iron (65-175) ug/dL TIBC (228-460) ug/dL Ferritin (22.0-322.0) ng/mL RBC Folate (280 - 791) ng/mL 07/10/17 07/10/17 07/10/17 Range/Units 06:59 07:21 07:21 WBC 2.1 L (3.8-10.6) k/uL RBC 2.37 L (4.30-5.90) m/uL Hgb 7.8 L (13.0-17.5) gm/dL Hct 23.7 L (39.0-53.0) % Plt Count 37 L* (150-450) k/uL Lymphocytes # 0.5 L (1.0-4.8) k/uL VBG pH (7.31-7.41) VBG HCO3 (24-28) mmol/L BUN 23 H (9-20) mg/dL Creatinine 3.37 H (0.66-1.25) mg/dL Glucose 151 H (74-99) mg/dL POC Glucose (mg/dL) 157 H (75-99) mg/dL Calcium 7.9 L (8.4-10.2) mg/dL Iron (65-175) ug/dL TIBC (228-460) ug/dL Ferritin (22.0-322.0) ng/mL RBC Folate (280 - 791) ng/mL Microbiology - Last 24 Hours (Table) 07/06/17 19:30 Blood Culture - Preliminary Blood No Growth after 72 hours 07/07/17 02:50 Gram Stain - Final Sputum Sputum Culture - Final Assessment and Plan Plan: Assessment: #1. End-stage renal disease maintained on hemodialysis on a Friday schedule via right chest permacath. #2. Sepsis. Etiology unclear. Cultures remain negative. #3. Hypertension with chronic kidney disease. #4. Anemia of chronic kidney disease maintained on Aranesp. #5. Chronic thrombocytopenia. #6. Chronic kidney disease mineral bone disease. Plan: Hemodialysis tomorrow with goal 2 liters ultrafiltration. Maintain PhosLo with meals. Anticipate discharge soon.
[2017-07-10 11:15] VITALS: PULSE 76
[2017-07-10 11:23] LABS: Glucose,Whole Blood 305 mg/dL (75-99)
--- NOTE | 2017-07-10 13:16 | P.PN ---
Subjective Progress Note Date: 07/10/17 Principal diagnosis: Septic shock, with unknown source. Acute hypoxic and hypercapnic respiratory failure due to fluid overload, requiring mechanical ventilation This is a 56-year-old white male who presented to the emergency room on 2016 at around 1900 with acute change in mental status, fevers that started at around 8:00 in the morning. All history was obtained from the chart and the nursing staff, the patient is sedated and mechanically ventilated. Patient denied any other complaints. Past medical history is positive for coronary artery disease, COPD, CVA/TIA, diabetes mellitus, end-stage renal disease currently on hemodialysis Friday, hyperlipidemia, hypertension , sleep apnea on home CPAP. On presentation to the emergency department patient was found to have a fever of 101.9, hypoxemic with O2 sat 86% on room air, no signs of leukocytosis, WBC is 7.4, no significant coagulopathy or electrolyte abnormality. Creatinine was 6.6, with BUNs of 43 on admission. Lactic acid was normal at 0.6, troponin 0.066, CK 26. He had a mild elevation of total bilirubin 1.4, liver enzymes and ammonia level were within normal levels. Patient had of heart catheterization on , 07/03/2017 through the right radial artery approach, the results of which are not available at this time. CT of the head and 07/07/2017 showed no acute abnormality. EKG on 07/06/2017 showed normal sinus rhythm with a possible anterior infarct, age undetermined. Chest x-ray on 07/06/2017 showed mild vascular prominence but no infiltrates were evident. Patient was admitted to the intensive care with a diagnosis of sepsis, blood cultures, hearing culture and sputum cultures were collected and sent. Patient was initially initiated on BiPAP ventilatory support, however subsequently got intubated for severe respiratory acidosis, with a blood gas of pO2 of 101, pCO2 87, and pH of 7.17. Blood gas after intubation was repeated at 3:18 AM and showed of pO2 1:15, pCO2 of 63, and pH of 7.27 on 60% FiO2. Patient is currently seen intensive care, sedated and ventilated on mechanical ventilator with settings of assist control mode with rates of 14, tidal volume of 500, FiO2 of 60%. His repeat blood gas this morning 7:20 AM shows pO2 of 161, pCO2 44, pH of 7.36, we will make further adjustment to the vent setting, we will increase the respiratory rate to 16, decrease tidal volume to 450, and decrease FiO2 to 40%. Maintenance IV fluids is 0.9 at 50, patient did receive a fluid bolus of 1 L of crystalloids for hypotension with systolic blood pressure in the 70s post intubation at 3:00 this morning, he is on norepinephrine drip at 3 mics per minute. His urine output is diminished, with many hours below 15 mL. Patient is a chronic hemodialysis patient. Chest x-ray from this morning 07/07/[address] Otoole and showed no lobar consolidation or pulmonary edema. Endotracheal tube and OG tube are in the satisfactory position. On 07/08/2017 patient is seen in the ICU, she was successfully extubated at around 9:00 on 07/07/2017. He had hemodialysis yesterday, with 1 L off. He is hemodynamically stable Levothroid has been on hold since yesterday morning. His last episode of fever was on 07/07/2017 at 1900, microbiology results have been reviewed and are negative thus far. Aunts continues on broad-spectrum empiric antibiotics with Zosyn and vancomycin. Patient is doing well, alert awake, following command, denies any acute distress. Lung sounds are clear diminished. No no rhonchi, no wheezes, no rales. On 07/09/2017 patient is seen in follow-up on medical surgical floor. He is doing well, other than being a little fatigued. At the time of evaluation she is resting in bed with his CPAP machine on, at his home settings. Denies any acute distress. Lung sounds are diminished to auscultation, but no rhonchi, no rales, no wheezes noted. Patient is supposed to have dialysis today, ultrafiltration with a goal of 1.5-2 L off as tolerated. No febrile episodes in last 48 hours, she is on room air when he is not on CPAP with O2 sat at 96%. Respirations on even and nonlabored, mentation is within normal limits. On 07/10/2017 patient seen in follow-up on medical surgical floor. Doing well, he is awake alert, denies any acute distress. Yesterday he had the hemodialysis and 2 L was removed, patient tolerated it well. Patient is on room air, stable oxygenation, O2 sat at 98%. Patient feels like he could go home today, he has been up ambulating in the hallway with no signs of respiratory distress. Lung sounds are clear to auscultation diminished at the bases. From pulmonary standpoint, no active issues, we will follow with the patient on as-needed basis. Objective - Vital Signs Vital signs: Vital Signs Temp 98.8 F 07/10/17 07:00 Pulse 76 07/10/17 11:15 Resp 18 07/10/17 08:00 BP 166/80 07/10/17 07:00 Pulse Ox 98 07/10/17 07:00 Intake & Output 07/09/17 07/10/17 07/10/17 18:59 06:59 18:59 Intake Total 240 Balance 240 Intake: Oral 240 Other: Voiding Method Toilet Toilet Toilet Urinal Urinal Urinal # Voids 1 - Exam 56-year-old white male, awake alert, following commands, denies any acute distress. - Constitutional General appearance: obese - EENT Eyes: PERRLA, normal appearance ENT: NA/AT Ears: bilateral: normal - Neck Neck: normal ROM Carotids: bilateral: upstroke normal Thyroid: bilateral: normal size - Respiratory Respiratory: bilateral: CTA - Cardiovascular Rhythm: regular Heart sounds: normal: S1, S2 ankle Peripheral Edema: absent: None foot Peripheral Edema: absent: None - Gastrointestinal General gastrointestinal: no organomegaly, soft, no tenderness - Integumentary Integumentary: normal turgor - Neurologic Neurologic: CNII-XII intact - Musculoskeletal Musculoskeletal: strength equal bilaterally - Psychiatric Awake alert, no signs of delirium, intact judgment and insight. - Labs CBC & Chem 7: 07/10/17 07:21 07/10/17 07:21 Labs: Abnormal Lab Results - Last 24 Hours (Table) 07/09/17 07/09/17 07/09/17 Range/Units 07:36 07:36 13:53 WBC (3.8-10.6) k/uL RBC (4.30-5.90) m/uL Hgb (13.0-17.5) gm/dL Hct (39.0-53.0) % Plt Count (150-450) k/uL Lymphocytes # (1.0-4.8) k/uL VBG pH 7.42 H (7.31-7.41) VBG HCO3 29 H (24-28) mmol/L BUN (9-20) mg/dL Creatinine (0.66-1.25) mg/dL Glucose (74-99) mg/dL POC Glucose (mg/dL) (75-99) mg/dL Calcium (8.4-10.2) mg/dL Iron 59 L (65-175) ug/dL TIBC 167 L (228-460) ug/dL Ferritin 464.9 H (22.0-322.0) ng/mL RBC Folate 1,496 H (280 - 791) ng/mL 07/09/17 07/09/17 07/10/17 Range/Units 16:48 20:41 06:59 WBC (3.8-10.6) k/uL RBC (4.30-5.90) m/uL Hgb (13.0-17.5) gm/dL Hct (39.0-53.0) % Plt Count (150-450) k/uL Lymphocytes # (1.0-4.8) k/uL VBG pH (7.31-7.41) VBG HCO3 (24-28) mmol/L BUN (9-20) mg/dL Creatinine (0.66-1.25) mg/dL Glucose (74-99) mg/dL POC Glucose (mg/dL) 248 H 262 H 157 H (75-99) mg/dL Calcium (8.4-10.2) mg/dL Iron (65-175) ug/dL TIBC (228-460) ug/dL Ferritin (22.0-322.0) ng/mL RBC Folate (280 - 791) ng/mL 07/10/17 07/10/17 07/10/17 Range/Units 07:21 07:21 11:21 WBC 2.1 L (3.8-10.6) k/uL RBC 2.37 L (4.30-5.90) m/uL Hgb 7.8 L (13.0-17.5) gm/dL Hct 23.7 L (39.0-53.0) % Plt Count 37 L* (150-450) k/uL Lymphocytes # 0.5 L (1.0-4.8) k/uL VBG pH (7.31-7.41) VBG HCO3 (24-28) mmol/L BUN 23 H (9-20) mg/dL Creatinine 3.37 H (0.66-1.25) mg/dL Glucose 151 H (74-99) mg/dL POC Glucose (mg/dL) 305 H (75-99) mg/dL Calcium 7.9 L (8.4-10.2) mg/dL Iron (65-175) ug/dL TIBC (228-460) ug/dL Ferritin (22.0-322.0) ng/mL RBC Folate (280 - 791) ng/mL Microbiology - Last 24 Hours (Table) 07/06/17 19:30 Blood Culture - Preliminary Blood No Growth after 72 hours 07/07/17 02:50 Gram Stain - Final Sputum Sputum Culture - Final Assessment and Plan Plan: Assessment: #1. Sepsis, with unknown source. Febrile with a temp of 101.9F on presentation to the emergency room, acute mental status change, hypotension, acute hypoxemia and hypercapnic respiratory failure requiring intubation and mechanical ventilation. Blood cultures, urine culture and sputum culture have been collected and are negative thus far. Patient has been covered empirically with Zosyn, and vancomycin. #2. Acute hypoxic and hypercapnic respiratory failure secondary to possible fluid overload, and the patient with a history of ESRD on hemodialysis on Friday. Chest x-ray from 07/08/2017 has been reviewed with Dr[address] Otoole and shows no evidence of consolidation or infiltrate. #3. COPD, severity of which is unknown at this time. #4. History of sleep apnea, requiring CPAP #5. Chronic thrombocytopenia, platelet count today on 07/10/2017 is 39 #6. Anemia of chronic kidney disease, on Aranesp #7. End-stage chronic kidney disease, requiring hemodialysis on Friday schedule. #8. Coronary Artery artery disease #9. History of CVA/TIA, CT brain on 07/06/2017 without any acute abnormalities #10. Diabetes mellitus #11. GERD/reflux #12. Hyperlipidemia #13. Hypertension #14. osteoarthritis Plan: Patient is doing well on medical surgical floor, appears to be a lot more awake and alert today. He was ambulating in the hallway, in no acute respiratory distress. He had hemodialysis yesterday with removal of 2 L, tolerated well. Lung sounds are clear diminished at the bases. No specific pulmonary complaints at this point. Patient wears his CPAP unit at night. Will continue to follow on an as-needed basis. I performed a history & physical examination of the patient and discussed their management with my nurse practitioner, Yumiko Matta. I reviewed the nurse practitioner's note and agree with the documented findings and plan of care. Lung sounds are diminished. Doing well, no specific complaints. Wants to go home today. We'll follow on an as-needed basis. The findings and the impression was discussed with the patient. I attest to the documentation by the nurse practitioner. Time with Patient: Less than 30
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
--- NOTE | 2017-07-10 18:46 | P.PN ---
Subjective Progress Note Date: 07/10/17 This patient is a 56-year-old right-handed white male who was seen yesterday in the intensive care unit for evaluation of lethargy and altered mental status. Patient has a known history of end-stage renal disease and pancreatitis in the past. He has been on hemodialysis 3 days a week. Patient presented with signs of increasing lethargy as well as acute hypoxic hypercapnic respiratory failure. He was initially intubated and transferred into the intensive care unit for close monitoring. He was extubated yesterday and remains off of the ventilator at this time. He is shown significant improvement in his overall mental status today. He did undergo hemodialysis yesterday and 1 L of fluid was removed. He is hemodynamically stable at this time. Cardiology is following the patient closely for elevated troponin levels. Patient apparently on underwent a cardiac catheterization at [facility] last week. Apparently there was no evidence of any significant coronary artery disease on this study. The patient did undergo routine EEG yesterday morning. This was reviewed yesterday the results of which indicated severe slowing. This would be consistent with a diffuse anoxic/hypoxic encephalopathy. He is showing improvement today in his overall mental status since admission to the ICU. Patient did undergo a computed tomography scan of the brain which failed to reveal any evidence of acute stroke or hemorrhage. the patient is laying in bed and is currently undergoing a breathing treatment. He did have some degree of hypoxic respiratory failure which may have contributed to his initial obtundation and lethargy. Patient still complains of being confused. We have recommended a follow-up EEG to be done for comparison to his initial study which was markedly abnormal. Hopefully this EEG will be done tomorrow morning. The patient is much more awake and alert. He still complains of symptoms of excessive drowsiness and sleepiness. We have suggested he should be reevaluated in the sleep center with a sleep study and evaluation for narcolepsy. In narcolepsy panel was drawn for the patient today as well. He is being considered for possible discharge home later today. He did undergo a follow-up EEG which was reviewed. EEG shows some improvement from previous. He does seem to be making some progress today. He should follow-up with his primary care physician soon after discharge. Patient is undergone some laboratory testing for narcolepsy panel. He should follow-up with his primary care physician on these results which will take one to 2 weeks to obtain. His overall prognosis remains guarded. Objective - Vital Signs Vital signs: Vital Signs Temp 98.8 F 07/10/17 07:00 Pulse 76 07/10/17 11:15 Resp 18 07/10/17 08:00 BP 166/80 07/10/17 07:00 Pulse Ox 98 07/10/17 07:00 Intake & Output 07/09/17 07/10/17 07/10/17 18:59 06:59 18:59 Intake Total 240 Balance 240 Intake: Oral 240 Other: Voiding Method Toilet Toilet Toilet Urinal Urinal Urinal # Voids 1 - Exam Physical examination: PHYSICAL EXAMINATION: Patient is resting comfortably in bed. VITAL SIGNS: Blood pressure is [160/80]. Heart rate is [68]. Respiration is [18] . Temperature is [98.8]. HEENT: Head is atraumatic, neck is supple, there were no carotid bruits. CHEST: Lungs are clear to auscultation and percussion. CARDIAC: S1, S2 normal rate and rhythm. There is no murmur. ABDOMEN: Soft and nontender. Bowel sounds are present. EXTREMITIES: There is no pedal edema. Peripheral pulses are present. Neurological examination: Patient has a nonfocal neurological examination. He is more awake and alert and able to answer questions appropriately. His memory and intellectual functions still slightly impaired. - Labs CBC & Chem 7: 07/10/17 07:21 07/10/17 07:21 Labs: Abnormal Lab Results - Last 24 Hours (Table) 07/09/17 07/09/17 07/09/17 Range/Units 07:36 07:36 16:48 WBC (3.8-10.6) k/uL RBC (4.30-5.90) m/uL Hgb (13.0-17.5) gm/dL Hct (39.0-53.0) % Plt Count (150-450) k/uL Lymphocytes # (1.0-4.8) k/uL BUN (9-20) mg/dL Creatinine (0.66-1.25) mg/dL Glucose (74-99) mg/dL POC Glucose (mg/dL) 248 H (75-99) mg/dL Calcium (8.4-10.2) mg/dL Iron 59 L (65-175) ug/dL TIBC 167 L (228-460) ug/dL Ferritin 464.9 H (22.0-322.0) ng/mL RBC Folate 1,496 H (280 - 791) ng/mL 07/09/17 07/10/17 07/10/17 Range/Units 20:41 06:59 07:21 WBC 2.1 L (3.8-10.6) k/uL RBC 2.37 L (4.30-5.90) m/uL Hgb 7.8 L (13.0-17.5) gm/dL Hct 23.7 L (39.0-53.0) % Plt Count 37 L* (150-450) k/uL Lymphocytes # 0.5 L (1.0-4.8) k/uL BUN (9-20) mg/dL Creatinine (0.66-1.25) mg/dL Glucose (74-99) mg/dL POC Glucose (mg/dL) 262 H 157 H (75-99) mg/dL Calcium (8.4-10.2) mg/dL Iron (65-175) ug/dL TIBC (228-460) ug/dL Ferritin (22.0-322.0) ng/mL RBC Folate (280 - 791) ng/mL 07/10/17 07/10/17 Range/Units 07:21 11:21 WBC (3.8-10.6) k/uL RBC (4.30-5.90) m/uL Hgb (13.0-17.5) gm/dL Hct (39.0-53.0) % Plt Count (150-450) k/uL Lymphocytes # (1.0-4.8) k/uL BUN 23 H (9-20) mg/dL Creatinine 3.37 H (0.66-1.25) mg/dL Glucose 151 H (74-99) mg/dL POC Glucose (mg/dL) 305 H (75-99) mg/dL Calcium 7.9 L (8.4-10.2) mg/dL Iron (65-175) ug/dL TIBC (228-460) ug/dL Ferritin (22.0-322.0) ng/mL RBC Folate (280 - 791) ng/mL Microbiology - Last 24 Hours (Table) 07/06/17 19:30 Blood Culture - Preliminary Blood No Growth after 72 hours Assessment and Plan (1) Acute encephalopathy Status: Acute SNOMED Code(s): 5396692 (2) Dialysis disequilibrium syndrome Status: Acute SNOMED Code(s): 80505084 (3) Myoclonus Status: Acute SNOMED Code(s): 30808185 (4) Renal failure Status: Acute SNOMED Code(s): 70702213 Plan: This patient is a 56-year-old male initially seen in the intensive care unit with severe up 10 days and following episode of severe respiratory compromise. He was intubated and was monitored for 48 hours in the ICU. He was able to be extubated and transferred to the medical floor. His initial EEG in the ICU was very slow. He had a repeat EEG today which show some improvement. Patient continues to have symptoms of excessive daytime drowsiness and sleepiness. He is undergone a narcolepsy panel blood test results which may take one to 2 weeks. He should follow-up with his primary care physician on these results. Patient is being ready for discharge to home later today. He should follow-up with his primary care physician in one week. We will continue to monitor his overall neurological status during this admission.
--- NOTE | 2017-07-10 20:13 | EEG ---
ELECTROENCEPHALOGRAM REPORT DATE OF EE07/10/2017. REFERRING PHYSICIAN: Dr. Reyes. CONSULTING AND INTERPRETING PHYSICIAN: Dr. Alvarado Nguyễn MD. ELECTROENCEPHALOGRAPHIC EXAMINATION: INDICATION FOR EXAMINATION: This patient is a 56-year-old male, initially admitted with severe anoxic hypoxic encephalopathy to the intensive care unit. Patient now showing improvement in mental status. This is a followup EEG for comparison. EEG FINDINGS: A routine 21 channel awake digital EEG recording was accomplished utilizing the 10-20 international system with bipolar and referential montages. The background activity in the most alert resting state consists of a low to medium amplitude, fairly well developed and well sustained 6-7 Hz activity over the posterior head regions. This posterior rhythm attenuates to eye opening. There is a small amount of low amplitude 18-20 Hz beta activity seen maximally over the anterior head regions. Muscle and movement artifact was observed on a few occasions during the tracing. Hyperventilation was not performed. Photic stimulation at flash frequencies of 2-30 Hz produced a good symmetrical occipital driving response. No epileptiform discharges were seen. IMPRESSION: This EEG is mildly abnormal in a diffuse fashion due to slowing of the EEG background. The EEG failed to reveal any focal, lateralized, or epileptiform abnormalities. Compared to a previous EEG performed on 07/07/2017 there is significant improvement in the EEG background rhythms. Clinical correlation is recommended. MMODL / IJN: [id number] /
[2017-07-15 07:45] LABS: Mis test requested (Blood) Narcolepsy Geno
== END 2017-07-10 14:45 | disposition home or self-care (01) | DRG 871 ==
LOC: EC 18:51 → 6SEL 22:47 → 6ICU 07-07 02:34 → 4MS4W 07-08 17:02
PROVIDERS: ADMIT Internal Medicine; ATTEND Internal Medicine
PROC: 5A1935Z Respiratory Ventilation, Less than 24 Consecutive Hours (ICD-10-PCS; principal; 2017-07-08)
PROC: 0BH17EZ Insertion of Endotracheal Airway into Trachea, Via Natural or Artificial Opening (ICD-10-PCS; principal; 2017-07-08)
DX: A41.9 Sepsis, unspecified organism (principal); G93.41 Metabolic encephalopathy; R65.21 Severe sepsis with septic shock; I50.31 Acute diastolic (congestive) heart failure; J96.01 Acute respiratory failure with hypoxia; J96.02 Acute respiratory failure with hypercapnia; Z93.0 Tracheostomy status; D69.6 Thrombocytopenia, unspecified; N18.6 End stage renal disease; K86.1 Other chronic pancreatitis; G93.1 Anoxic brain damage, not elsewhere classified; E87.2 Acidosis; I31.3 Pericardial effusion (noninflammatory); I13.2 Hypertensive heart and chronic kidney disease with heart failure and with stage 5 chronic kidney disease, or end stage renal disease; F33.9 Major depressive disorder, recurrent, unspecified; N39.0 Urinary tract infection, site not specified; E11.22 Type 2 diabetes mellitus with diabetic chronic kidney disease; E11.40 Type 2 diabetes mellitus with diabetic neuropathy, unspecified; D63.1 Anemia in chronic kidney disease; E78.5 Hyperlipidemia, unspecified; E87.8 Other disorders of electrolyte and fluid balance, not elsewhere classified; F41.1 Generalized anxiety disorder; G25.3 Myoclonus; G47.33 Obstructive sleep apnea (adult) (pediatric); I08.1 Rheumatic disorders of both mitral and tricuspid valves; I25.10 Atherosclerotic heart disease of native coronary artery without angina pectoris; J44.9 Chronic obstructive pulmonary disease, unspecified; K21.9 Gastro-esophageal reflux disease without esophagitis; K76.0 Fatty (change of) liver, not elsewhere classified; M19.90 Unspecified osteoarthritis, unspecified site; M50.30 Other cervical disc degeneration, unspecified cervical region; M89.9 Disorder of bone, unspecified; Z79.4 Long term (current) use of insulin; Z79.899 Other long term (current) drug therapy; Z82.49 Family history of ischemic heart disease and other diseases of the circulatory system; Z86.73 Personal history of transient ischemic attack (TIA), and cerebral infarction without residual deficits; Z87.891 Personal history of nicotine dependence; Z91.19 Patient's noncompliance with other medical treatment and regimen; Z95.5 Presence of coronary angioplasty implant and graft; Z98.1 Arthrodesis status; Z99.2 Dependence on renal dialysis; I27.20 Pulmonary hypertension, unspecified
CPT/HCPCS: 36415; 36600; 70450; 71010; 80048; 80053; 80202; 80306; 81001; 81383; 82140; 82550; 82607; 82728; 82747; 82803; 82805; 83036; 83540; 83550; 83605; 83735; 84100; 84146; 84484; 85025; 85045; 85379; 85610; 85730; 86704; 86706; 87040; 87070; 87086; 87205; 87340; 90935; 93005; 93306; 94002; 94640; 94660; 95819; 96365; 96366; 99285

== ENCOUNTER 2018-06-04 00:10 | Inpatient (IN) | payer MEDICARE, BC ==
[2018-06-04] MEDS ORDERED: PIPERACILLIN-TAZOBACTAM 3.375 GM in DEXTROSE/WATER 1 50ML.BAG IVPB STA (01:05)
[2018-06-04] MEDS ORDERED: VANCOMYCIN IV PER PHARMACY 1 EACH MISC MISCELLANE PRN (01:05)
[2018-06-04] MEDS ORDERED: ACETAMINOPHEN TAB 325 MG TAB PO STA (01:05)
[2018-06-04] MEDS ORDERED: SODIUM CHLORIDE 0.9% 2,430 ML IV ONE (01:08)
--- NOTE | 2018-06-04 01:08 | ED ---
Fever HPI - General Chief Complaint: Fever Stated Complaint: Kidney failure Time Seen by Provider: 06/04/18 00:41 Source: patient, family Mode of arrival: wheelchair Limitations: altered mental status (Suspected delirium) - History of Present Illness Initial Comments: This patient's 57-year-old man, presenting to be evaluated as she is not feeling well. History is from the patient and his . The patient is not able to give much history and patient's states that the last time he was like this he was delirious due to being septic. The patient had been in his usual state of health until yesterday. Yesterday he had 3 areas of suspected skin cancer removed for biopsy by Dr. Myers. Starting this morning he relates she was not feeling well, including generalized weakness. Patient is not able to give much otherwise in terms of specific complaints. His last dialysis was on Friday and was a normal. Patient. He did not attend today's dialysis as he was not feeling well. MD Complaint: fever, weakness Onset/Timin -: days(s) Temperature Source: subjective Context: recent procedure Associated Symptoms: confusion Treatments Prior to Arrival: none - Related Data Home Medications Medication Instructions Recorded Confirmed Carvedilol [Coreg] 25 mg PO BID 12/26/16 07/06/17 amLODIPine BESYLATE [Norvasc] 5 mg PO BID 12/26/16 07/06/17 Nitroglycerin Sl Tabs [Nitrostat] 0.4 mg SUBLINGUAL Q5M PRN 06/01/17 07/06/17 Cholecalciferol (Vitamin D3) 2,000 unit PO DAILY 06/02/17 07/06/17 [Vitamin D3] ARIPiprazole [Abilify] 5 mg PO DAILY 07/06/17 07/06/17 HYDROcodone/APAP 10-325MG [Bulan 1 tab PO TID PRN 07/06/17 07/06/17 10-325] Previous Rx's Medication Instructions Recorded Atorvastatin Calcium [Lipitor] 80 mg PO HS #30 tab 03/01/14 Insulin Aspart [NovoLOG Flexpen] 9 unit SQ AC-TID #0 06/03/17 Insulin Glargine [Lantus] 27 unit SQ DAILY #0 06/03/17 Lisinopril [Zestril] 20 mg PO BID #60 tab 06/03/17 Spironolactone [Aldactone] 50 mg PO DAILY #60 tab 06/03/17 hydrALAZINE HCL [Apresoline] 50 mg PO TID #90 tab 06/03/17 Bumetanide [BUMEX] 1 mg PO BID #0 07/10/17 Calcium Acetate [PhosLo] 1,334 mg PO TID-W/MEALS #90 cap 07/10/17 Levofloxacin [Levaquin] 250 mg PO Q48H #3 tab 07/10/17 Pregabalin [Lyrica] 50 mg PO DAILY #60 cap 07/10/17 Allergies Allergy/AdvReac Type Severity Reaction Status Date / Time No Known Allergies Allergy Verified 06/04/18 00:17 Review of Systems ROS Statement: Those systems with pertinent positive or pertinent negative responses have been documented in the HPI. ROS Other: All systems not noted in ROS Statement are negative. Limitations: ROS unobtainable due to patients medical condition (Suspected delirium) Constitutional: Reports: weakness (Generalized) Respiratory: Reports: cough. 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 Chronic kidney disease due to Diabetes, last received hemodialysis 03/31/17. Has been on hemodialysis X3 weeks. Pt states chronic low platelets and usually needs platelets prior to surgical procedures. Peritoneal dialysis catheter being removed because it is not functioning properly. History of Any Multi-Drug Resistant Organisms: None Reported Past Surgical History: Appendectomy, Back Surgery, Cholecystectomy, Heart Catheterization, Heart Catheterization With Stent Additional Past Surgical History / Comment(s): Tracheostomy, bladder stone removal, anterior cervical disc fusion, dialysis catheter insertion 12/27/16, jugular catheter insertion. Past Anesthesia/Blood Transfusion Reactions: No Reported Reaction Date of Last Stent Placement:: 2012 Past Psychological History: Anxiety, Depression Smoking Status: Former smoker Past Alcohol Use History: Heavy Past Drug Use History: None Reported - Past Family History Father Family Medical History: Coronary Artery Disease (CAD) Mother Family Medical History: Coronary Artery Disease (CAD) Brother(s) Family Medical History: Cancer Daughter(s) Family Medical History: Vascular Disorder (VSD) General Exam Limitations: no limitations General appearance: alert, other (Patient does appear to be moderately delirious ) Head exam: Present: atraumatic, normocephalic Eye exam: Present: normal appearance. Absent: scleral icterus, conjunctival injection ENT exam: Present: mucous membranes dry Neck exam: Present: normal inspection, full ROM. Absent: tenderness, meningismus Respiratory exam: Present: normal lung sounds bilaterally. Absent: respiratory distress, wheezes, rales, rhonchi, stridor Cardiovascular Exam: Present: normal rhythm, tachycardia (Rate approximately 104 at my exam), normal heart sounds. Absent: systolic murmur, diastolic murmur , rubs, gallop GI/Abdominal exam: Present: soft. Absent: distended, tenderness, guarding, rebound, mass Extremities exam: Present: normal inspection, normal capillary refill. Absent: pedal edema, calf tenderness Back exam: Present: normal inspection. Absent: CVA tenderness (R), CVA tenderness (L) Neurological exam: Present: alert, CN II-XII intact. Absent: oriented X3 ( Patient oriented to person and place but could not state the date), motor sensory deficit Skin exam: Present: warm, dry, intact, normal color. Absent: rash Course Vital Signs 06/04/18 00:13 Temperature 103.1 F H Pulse Rate 108 H Respiratory 18 Rate Blood Pressure 203/84 O2 Sat by Pulse 96 Oximetry - Reevaluation(s) Reevaluation #1: 06/04/18 01:07 Fluid bolus is based on the ideal body weight. Medical Decision Making - Medical Decision Making This patient is a 57-year-old man brought to be evaluated for suspected delirium , fever, and generally not feeling well. He is found to meet sepsis criteria. Patient started on fluids and antibiotics. Workup does reveal what appears to be interstitial infiltrate. Patient also has hyperkalemia. Hyperkalemia treatment started. Paged Dr. Archer for admission. 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 Troponin is also elevated though suspect this more related to sepsis/ renal function. Cardiology consultation and repeat troponins ordered. - Lab Data Result diagrams: 06/04/18 02:00 06/04/18 01:10 Lab Results 06/04/18 06/04/18 06/04/18 Range/Units 01:10 01:10 01:10 WBC (3.8-10.6) k/uL RBC (4.30-5.90) m/uL Hgb (13.0-17.5) gm/dL Hct (39.0-53.0) % MCV (80.0-100.0) fL MCH (25.0-35.0) pg MCHC (31.0-37.0) g/dL RDW (11.5-15.5) % Plt Count (150-450) k/uL Neutrophils % % Lymphocytes % % Monocytes % % Eosinophils % % Basophils % % Neutrophils # (1.3-7.7) k/uL Lymphocytes # (1.0-4.8) k/uL Monocytes # (0-1.0) k/uL Eosinophils # (0-0.7) k/uL Basophils # (0-0.2) k/uL Manual Slide Review Poikilocytosis PT 10.8 (9.0-12.0) sec INR 1.1 (<1.2) APTT 22.8 (22.0-30.0) sec Sodium 138 (137-145) mmol/L Potassium 6.7 H* (3.5-5.1) mmol/L Chloride 103 (98-107) mmol/L Carbon Dioxide 23 (22-30) mmol/L Anion Gap 12 mmol/L BUN 56 H (9-20) mg/dL Creatinine 5.42 H (0.66-1.25) mg/dL Est GFR (CKD-EPI)AfAm 12 (>60 ml/min/1.73 sqM) Est GFR (CKD-EPI)NonAf 11 (>60 ml/min/1.73 sqM) Glucose 233 H (74-99) mg/dL Plasma Lactic Acid Wicho 1.7 (0.7-2.0) mmol/L Calcium 8.0 L (8.4-10.2) mg/dL Total Bilirubin 1.4 H (0.2-1.3) mg/dL AST 25 (17-59) U/L ALT 36 (21-72) U/L Alkaline Phosphatase 84 (38-126) U/L Troponin I (0.000-0.034) ng/mL Total Protein 6.9 (6.3-8.2) g/dL Albumin 3.9 (3.5-5.0) g/dL Urine Color Urine Appearance (Clear) Urine pH (5.0-8.0) Ur Specific Fourmile (1.001-1.035) Urine Protein (Negative) Urine Glucose (UA) (Negative) Urine Ketones (Negative) Urine Blood (Negative) Urine Nitrite (Negative) Urine Bilirubin (Negative) Urine Urobilinogen (<2.0) mg/dL Ur Leukocyte Esterase (Negative) Urine RBC (0-5) /hpf Urine WBC (0-5) /hpf Urine Mucus (None) /hpf 06/04/18 06/04/18 06/04/18 Range/Units 01:10 02:00 02:00 WBC 8.6 (3.8-10.6) k/uL RBC 2.97 L (4.30-5.90) m/uL Hgb 9.8 L (13.0-17.5) gm/dL Hct 28.5 L (39.0-53.0) % MCV 95.8 (80.0-100.0) fL MCH 32.9 (25.0-35.0) pg MCHC 34.3 (31.0-37.0) g/dL RDW 15.5 (11.5-15.5) % Plt Count 52 L (150-450) k/uL Neutrophils % 87 % Lymphocytes % 7 % Monocytes % 4 % Eosinophils % 1 % Basophils % 1 % Neutrophils # 7.5 (1.3-7.7) k/uL Lymphocytes # 0.6 L (1.0-4.8) k/uL Monocytes # 0.4 (0-1.0) k/uL Eosinophils # 0.1 (0-0.7) k/uL Basophils # 0.0 (0-0.2) k/uL Manual Slide Review Performed Poikilocytosis Slight PT (9.0-12.0) sec INR (<1.2) APTT (22.0-30.0) sec Sodium (137-145) mmol/L Potassium (3.5-5.1) mmol/L Chloride (98-107) mmol/L Carbon Dioxide (22-30) mmol/L Anion Gap mmol/L BUN (9-20) mg/dL Creatinine (0.66-1.25) mg/dL Est GFR (CKD-EPI)AfAm (>60 ml/min/1.73 sqM) Est GFR (CKD-EPI)NonAf (>60 ml/min/1.73 sqM) Glucose (74-99) mg/dL Plasma Lactic Acid Wicho (0.7-2.0) mmol/L Calcium (8.4-10.2) mg/dL Total Bilirubin (0.2-1.3) mg/dL AST (17-59) U/L ALT (21-72) U/L Alkaline Phosphatase (38-126) U/L Troponin I 0.651 H* (0.000-0.034) ng/mL Total Protein (6.3-8.2) g/dL Albumin (3.5-5.0) g/dL Urine Color Yellow Urine Appearance Clear (Clear) Urine pH 8.0 (5.0-8.0) Ur Specific [place] 1.008 (1.001-1.035) Urine Protein 3+ H (Negative) Urine Glucose (UA) 3+ H (Negative) Urine Ketones Negative (Negative) Urine Blood Small H (Negative) Urine Nitrite Negative (Negative) Urine Bilirubin Negative (Negative) Urine Urobilinogen <2.0 (<2.0) mg/dL Ur Leukocyte Esterase Negative (Negative) Urine RBC 4 (0-5) /hpf Urine WBC 1 (0-5) /hpf Urine Mucus Rare H (None) /hpf - EKG Data EKG shows normal: sinus rhythm, axis (Normal), intervals, QRS complexes (Normal) , ST-T waves (Normal) Rate: tachycardia (Rate 106 bpm) Disposition Clinical Impression: Hyperkalemia, Renal failure, Altered mental status, Pneumonia, Elevated troponin I measurement Disposition: ADMITTED IP TO THIS HOSP Condition: Serious
[2018-06-04] MEDS ORDERED: VANCOMYCIN 1,500 MG in SODIUM CHLORIDE 0.9% 250 ML IVPB STA (01:10)
[2018-06-04 01:37] LABS: INR 1.1 (<1.2); Partial Thromboplastin Time 22.8 sec (22.0-30.0); Prothrombin Time 10.8 sec (9.0-12.0)
[2018-06-04] MEDS ORDERED: DIAZEPAM 5 MG TAB PO STA (01:38)
[2018-06-04 01:53] LABS: Albumin 3.9 g/dL (3.5-5.0); Total Bilirubin 1.4 mg/dL (0.2-1.3); Total Protein 6.9 g/dL (6.3-8.2)
--- NOTE | 2018-06-04 02:03 | XR ---
EXAMINATION TYPE: XR chest 1V portable DATE OF EXAM: 06/04/2018 COMPARISON: 07/08/2017 HISTORY: Fever TECHNIQUE: Single frontal view of the chest is obtained. FINDINGS: There is diffuse interstitial pulmonary infiltrate. Heart size is normal. Costophrenic ang les are clear. There are cervical spine fusion surgery. Mediastinum is normal. IMPRESSION: New interstitial pneumonia compared to last exam. I do not suspect heart failure.
[2018-06-04 02:05] LABS: Potassium 6.7 mmol/L (3.5-5.1)
[2018-06-04 02:12] LABS: Basophils % (A) 1 %; Eosinophils # (A) 0.1 k/uL (0-0.7); Eosinophils % (A) 1 %; HCT 28.5 % (39.0-53.0); HGB 9.8 gm/dL (13.0-17.5); Lymphocytes # (A) 0.6 k/uL (1.0-4.8); Lymphocytes % (A) 7 %; MCH 32.9 pg (25.0-35.0); MCHC 34.3 g/dL (31.0-37.0); MCV 95.8 fL (80.0-100.0); Mean Platelet Volume 9.3; Monocytes # (A) 0.4 k/uL (0-1.0); Monocytes % (A) 4 %; Neutrophils # (A) 7.5 k/uL (1.3-7.7); Neutrophils % (A) 87 %; Poikilocytosis Slight; RBC 2.97 m/uL (4.30-5.90); RDW 15.5 % (11.5-15.5); WBC 8.6 k/uL (3.8-10.6)
[2018-06-04 02:25] LABS: Appearance,Urine Clear (Clear); Bilirubin,Urine Negative (Negative); Blood,Urine Small (Negative); Color,Urine Yellow; Glucose,Urine (UA) 3+ (Negative); Ketones,Urine Negative (Negative); Leukocyte Esterase,Urine Negative (Negative); Mucus,Urine Rare /hpf; Nitrite,Urine Negative (Negative); Protein,Urine 3+ (Negative); RBC,Urine 4 /hpf (0-5); Specific Gravity,Urine 1.008 (1.001-1.035); Urobilinogen,Urine <2.0 mg/dL (<2.0); WBC,Urine 1 /hpf (0-5)
[2018-06-04] MEDS ORDERED: CALCIUM GLUCONATE 1,000 MG in SODIUM CHLORIDE 0.9% 100 ML IVPB ONE (02:33)
[2018-06-04] MEDS ORDERED: DEXTROSE 50%-WATER 50 ML SYRINGE IVP STA (02:33)
[2018-06-04] MEDS ORDERED: SODIUM BICARB 8.4% 50 ML SYR (1 MEQ/ML) IV STA (02:33)
[2018-06-04] MEDS ORDERED: INSULIN REGULAR 100 UNIT/ML VIAL IV STA (02:33)
[2018-06-04] MEDS ORDERED: SODIUM POLYSTYRENE SULFONATE 15 GM/60 ML BOTTLE PO ONE (02:34)
[2018-06-04 02:41] LABS: Platelet Count 52 k/uL (150-450)
[2018-06-04] MEDS ORDERED: PNEUMONIA PROTOCOL UTILIZED 1 EACH MISC PO PRN (03:23)
[2018-06-04] MEDS ORDERED: LEVOFLOXACIN 750MG-D5W PMX 750 MG in DEXTROSE/WATER 1 150ML.BAG IVPB ONE (05:00)
[2018-06-04] MEDS ORDERED: FUROSEMIDE 10 MG/ML 4 ML VIAL IV STA (06:01)
[2018-06-04] MEDS ORDERED: CARVEDILOL 12.5 MG TAB PO SCH (07:30)
[2018-06-04] MEDS: HYDROcodone/APAP 10-325MG 1 EACH TAB PO PRN ×2 (07:57→14:17)
[2018-06-04] MEDS ORDERED: AZTREONAM 1 GM in SODIUM CHLORIDE 0.9% 50 ML IVPB SCH (08:00)
[2018-06-04] MEDS ORDERED: AZTREONAM 2 GM in SODIUM CHLORIDE 0.9% 100 ML IVPB SCH (08:00)
[2018-06-04] MEDS: SODIUM CHLORIDE 0.9% 1,000 ML IV SCH (08:49)
[2018-06-04] MEDS ORDERED: ONDANSETRON 4 MG/2 ML VIAL IVP PRN (08:55)
[2018-06-04] MEDS ORDERED: IPRATROPIUM-ALBUTEROL 3 ML NEB INHALATION PRN (08:55)
[2018-06-04] MEDS ORDERED: PREGABALIN 50 MG CAP PO SCH (09:00)
[2018-06-04] MEDS ORDERED: BUMETANIDE 1 MG TAB PO SCH (09:00)
--- NOTE | 2018-06-04 09:26 | CONS ---
CONSULTATION CHIEF COMPLAINT: Elevated troponin. Mr. Silva is a 57-year-old gentleman with history of end-stage renal disease on hemodialysis, hypertension, insulin-requiring diabetes, who presented to hospital primarily complaining of not feeling well, mild confusion and fever. Patient had suspected skin lesion biopsied over the right earlobe yesterday, starting this morning patient has been not feeling well, has generalized weakness and Cardiology has been consulted because of mildly elevated troponins. His troponin is 0.651 and is probably related to underlying renal failure with a BUN of 56 and creatinine of 5.4. EKG shows sinus rhythm without significant ST-T wave changes. Patient had a cardiac catheterization last year that did not reveal significant obstructive CAD. He; however, did have a stent in the right coronary artery done in 2013 and has history of diabetes and hypertension. PAST MEDICAL HISTORY: Significant for coronary artery disease, status post angioplasty, end-stage renal disease on hemodialysis, hypertension, dyslipidemia, insulin-requiring diabetes. MEDICATIONS: At home included amlodipine 5 b.i.d., Aldactone 50 q. daily, Lyrica, lisinopril 20 b.i.d., insulin, Coreg 25 b.i.d., PhosLo, Bumex, Lipitor, Abilify, Levaquin, Aldactone. ALLERGIES: There are no known drug allergies. FAMILY HISTORY: Negative for premature coronary artery disease. SOCIAL HISTORY: Negative for current smoking, EtOH abuse, or drug abuse. REVIEW OF SYSTEMS: HEENT is unremarkable. CARDIAC: As described above. RESPIRATORY: As described above. GI: Negative. GENITOURINARY: Negative. ALLERGY: None. SKIN: Negative. MUSCULOSKELETAL: Negative. ENDOCRINE: Negative. CONSTITUTIONAL: Significant for fever, chills. DERMATOLOGICAL: Significant for biopsy of a skin lesion over his right ear. ASSESSMENT: 1. Elevated troponin, probably related to end-stage renal disease. Patient does not have acute ischemic changes. Has known coronary artery disease, but appears stable clinically. 2. Fever, etiology is unclear. Workup per primary. He is on IV antibiotics. 3. Hypertension. 4. Insulin-requiring diabetes. 5. End-stage renal disease on hemodialysis. PLAN: I will obtain one more set of troponin. Continue current medications. No further cardiac workup at this time. MMODL / IJN: [id number] /
[2018-06-04 09:37] LABS: Magnesium 1.8 mg/dL (1.6-2.3)
[2018-06-04] MEDS: INSULIN ASPART 100 UNIT/ML 1 ML 10 ML VIAL SQ SCH ×3 (09:41→17:17)
[2018-06-04] MEDS: CALCIUM ACETATE 667 MG CAP PO SCH ×3 (09:41→17:15)
[2018-06-04 10:11] LABS: Creatine Kinase MB 5.3 ng/mL (0.0-2.4); Troponin I 2.61 ng/mL (0.000-0.034)
[2018-06-04] MEDS: ALPRAZolam 0.25 MG TAB PO PRN ×3 (10:14→20:28)
[2018-06-04] MEDS: INSULIN DETEMIR 100 UNIT/ML 10 ML VIAL SQ SCH (11:09)
[2018-06-04] MEDS: SPIRONOLACTONE 25 MG TAB PO SCH (11:11)
[2018-06-04 11:24] LABS: Glucose,Whole Blood 223 mg/dL (75-99)
[2018-06-04] MEDS ORDERED: NITROGLYCERIN SL TABS 0.4 MG TAB SUBLINGUAL PRN (11:37)
--- NOTE | 2018-06-04 11:48 | P.HPIM ---
History of Present Illness H&P Date: 06/04/18 Chief Complaint: altered mental status This is a 57 Year-Old male one of patient with a previous medical history significant for CAD post PCI and stenting of the RCA x3 stents 2013. 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 Last admitted June 2017 for metabolic encephalopathy and acute hypoxic hypercarbic respiratory failure secondary to acute diastolic heart failure and hypercarbia for which patient was briefly intubated. Sepsis was ruled out during the last admission. Patient comes at this time with increased generalized weakness associated with change in mental status. Patient does complain of some cough and shortness of breath with sputum production. Most of the history is provided by the family at bedside as patient is not able to give any history. He did have 3 suspected skin cancer removed for biopsy by Dr. Myers but was feeling unwell for past 2 days. Patient missed dialysis yesterday due to the weakness. He usually gets it at Friday and Friday. In the ER patient was found to have a fever of 103 pulse rate of 125, respiratory rate 32, blood pressure 183/81. Labs obtained in the ER suggested leukocyte of 8.6 chronic thrombocytopenia with platelets 52, INR 1.1, potassium 6.7, creatinine 5.42, glucose 233 calcium 8, total bilirubin 1.4 initial troponin 0.651 which increased to 2.6. Lactate is 1.7 Patient was evaluated by cardiology in the ER was suggested that the increase in troponin been related to sepsis. Echocardiogram has been ordered. Chest x-ray done in the ER concerning for interstitial infiltrate concerning for pneumonia. Patient has already received 1 dose of vancomycin and Levaquin dose adjusted to kidney functions. Due to patient's end-stage renal disease patient would not be able to get any fluid boluses or at maintainance. Pro- calcitonin ordered. Mycoplasma and urinary legionella ordered. Patient is admitted for sepsis secondary to community-acquired pneumonia with possible volume overload and hypercarbia causing change in mental status. Review of Systems Constitutional: Denies chills, endorses fever, endorses lethargy Eyes: denies decreased vision, denies diplopia, denies discharge, denies pain Ears: deny: decreased hearing Ears, nose, mouth and throat: Denies dental pain, Denies headache, Denies nasal discharge, Denies nose pain Cardiovascular: Denies chest pain, Denies decreased exercise tolerance, Denies edema, Denies high blood pressure, Denies irregular heart beat, Denies palpitations, Denies paroxysmal nocturnal dyspnea, Denies rapid heart beat, endorses shortness of breath Respiratory: Endorses endorses congestion, endorses cough, endorses cough with sputum, endorses dyspnea, Denies home oxygen, Denies wheezing Gastrointestinal: Denies abdominal pain, Denies change in bowel habits, Denies coffee ground emesis, Denies early satiety, Denies excessive gas, Denies heartburn, Denies hematemesis, Denies hematochezia, Denies loss of appetite, Denies nausea, Denies vomiting Genitourinary: Denies dysuria, Denies flank pain, Denies kidney stones, Denies menorrhagia, Denies urgency, Denies urinary frequency Musculoskeletal: Denies gait dysfunction, Denies limitation of motion, Denies morning stiffness, Denies muscle cramps Integumentary: Denies rash, Denies wounds, Denies brittle nails, Denies change in hair/nails, Denies darkening of skin Neurological: Denies balance difficulties, Denies change in speech, Denies double vision, Denies gait dysfunction, Denies loss of vision, Denies motor disturbance, Denies numbness, Denies paralysis, Denies paresthesias, Denies seizures Psychiatric: Denies anxiety, Denies depression Endocrine: Denies excessive sweating, Denies excessive thirst, Denies high blood sugars, Denies palpitations Hematologic/Lymphatic: Denies easy bruising, Denies lymphadenopathy Past Medical History Past Medical History: Coronary Artery Disease (CAD), Chest Pain / Angina, COPD, CVA/TIA, Diabetes Mellitus, GERD/Reflux, Hyperlipidemia, Hypertension, Liver Disease, Osteoarthritis (OA), Renal Disease, Respiratory Disorder, Sleep Apnea/ CPAP/BIPAP Additional Past Medical History / Comment(s): Hx pancreatitis due to heavy alcohol use - no alcohol use in over 6 yrs, fatty liver, uses cpap, varicose veins bilaterally, chronic kidney disease due to diabetes on hemodialysis 3 times a week with last time being 06/01/18, , last received hemodialysis 06/01/18 , chronic low platelets and usually needs platelets prior to surgical procedures, past peritoneal dialysis catheter being removed because was not functioning properly, CVA with R sided numbess, ARDS, past respiratory arrest/ intubated and trached, past metabolic encephalopathy 2ndary to ESRD, thrombocytopenia d/t splenomegally, chronic back and cervical pain, cervical DDD with surgery/plate. History of Any Multi-Drug Resistant Organisms: None Reported Past Surgical History: Appendectomy, Back Surgery, Cholecystectomy, Heart Catheterization, Heart Catheterization With Stent Additional Past Surgical History / Comment(s): PCI with stents, tracheostomy, bladder stone removal, anterior cervical disc fusion/plate, dialysis catheter insertion 12/27/16 since removed, jugular catheter insertion, colonoscopy. Past Anesthesia/Blood Transfusion Reactions: No Reported Reaction Date of Last Stent Placement:: 2013 Smoking Status: Former smoker - Past Family History Father Family Medical History: Coronary Artery Disease (CAD), Myocardial Infarction (MO ) Additional Family Medical History / Comment(s): Father of a MO at the age of 65yrs. Mother Family Medical History: Coronary Artery Disease (CAD), Myocardial Infarction (MO ) Additional Family Medical History / Comment(s): Mother of a MO at the age of 55yrs. Brother(s) Family Medical History: Cancer Daughter(s) Family Medical History: Vascular Disorder (VSD) Medications and Allergies Home Medications Medication Instructions Recorded Confirmed Type Atorvastatin Calcium [Lipitor] 80 mg PO HS #30 tab 03/01/14 06/04/18 Rx Nitroglycerin Sl Tabs [Nitrostat] 0.4 mg SUBLINGUAL Q5M PRN 06/01/17 06/04/18 History Lisinopril [Zestril] 20 mg PO BID #60 tab 06/03/17 06/04/18 Rx ARIPiprazole [Abilify] 5 mg PO DAILY 07/06/17 06/04/18 History Calcium Acetate [PhosLo] 1,334 mg PO TID-W/MEALS #90 cap 07/10/17 06/04/18 Rx ALPRAZolam [Xanax] 0.25 mg PO BID PRN 06/04/18 06/04/18 History Amoxicillin 500 mg PO TID 06/04/18 06/04/18 History Bumetanide [BUMEX] 2 mg PO HS 06/04/18 06/04/18 History Bumetanide [BUMEX] 4 mg PO DAILY 06/04/18 06/04/18 History Diltiazem HCl [Diltiazem 24Hr ER] 180 mg PO DAILY 06/04/18 06/04/18 History HYDROcodone/APAP 10-325MG [[place] 1 tab PO Q4HR PRN 06/04/18 06/04/18 History 10-325] Insulin Glargine,Hum.rec.anlog 20 unit SQ DAILY 06/04/18 06/04/18 History [Basaglar Kwikpen U-100] Insulin NPH Hum/Reg Insulin Hm 20 unit SQ AC-TID 06/04/18 06/04/18 History [NovoLIN 70-30 100 UNIT/ML VIAL] Metoprolol Tartrate [Lopressor] 150 mg PO BID 06/04/18 06/04/18 History Morphine Sulfate ER [Ms Contin] 30 mg PO Q12HR 06/04/18 06/04/18 History Omeprazole 20 mg PO DAILY 06/04/18 06/04/18 History Pregabalin [Lyrica] 50 mg PO BID 06/04/18 06/04/18 History Allergies Allergy/AdvReac Type Severity Reaction Status Date / Time No Known Allergies Allergy Verified 06/04/18 09:30 Physical Exam Vitals: Vital Signs Temp Pulse Pulse Resp BP BP Pulse Ox 06/04/18 08:03 97 06/04/18 07:46 99.4 F 125 H 32 H 147/65 100 06/04/18 05:57 98 26 H 183/81 98 06/04/18 05:50 28 H 06/04/18 03:23 98.6 F 104 H 20 172/78 96 06/04/18 00:13 103.1 F H 108 H 18 203/84 96 Intake and Output 06/03/18 06/04/18 06/04/18 22:59 06:59 14:59 Intake Total 100 Output Total 400 Balance -300 Intake: IV 100 Levofloxacin 500Mg-D5w 100 Pmx 500 mg In Dextrose/ Water 1 100ml.bag @ 100 mls/hr IVPB Q48H [facility] Rx#: [id number] Output: Urine 400 Other: Weight 104.326 kg - Constitutional General appearance: cooperative, in moderate distress, drowsy - EENT Eyes: anicteric sclerae, PERRLA, normal appearance ENT: hearing grossly normal - Neck Neck: no lymphadenopathy, normal ROM, no other, no rigidity, no stridor, no thyromegaly - Respiratory Respiratory: bilateral: Decreased air entry with crackles at the bases - Cardiovascular Rhythm: Tachycardic Heart sounds: normal: S1, S2 Abnormal Heart Sounds: no systolic murmur, no diastolic murmur, no rub, no S3 Gallop, no S4 Martines - Gastrointestinal General gastrointestinal: normal bowel sounds, soft nontender - Integumentary Integumentary: biopsy site at forehead, wrist and right ear appears to be oozing bloody discharge but no sign of inflammation or concern for infection - Neurologic Neurologic: CNII-XII intact - Musculoskeletal Musculoskeletal: strength equal bilaterally - Psychiatric Psychiatric: Drowsy but O x's 3, appropriate affect Results CBC & Chem 7: 06/04/18 02:00 06/04/18 01:10 Labs: Abnormal Lab Results - Last 24 Hours (Table) 06/04/18 06/04/18 06/04/18 Range/Units 01:10 01:10 02:00 RBC 2.97 L (4.30-5.90) m/uL Hgb 9.8 L (13.0-17.5) gm/dL Hct 28.5 L (39.0-53.0) % Plt Count 52 L (150-450) k/uL Lymphocytes # 0.6 L (1.0-4.8) k/uL Potassium 6.7 H* (3.5-5.1) mmol/L BUN 56 H (9-20) mg/dL Creatinine 5.42 H (0.66-1.25) mg/dL Glucose 233 H (74-99) mg/dL Calcium 8.0 L (8.4-10.2) mg/dL Total Bilirubin 1.4 H (0.2-1.3) mg/dL CK-MB (CK-2) (0.0-2.4) ng/mL Troponin I 0.651 H* (0.000-0.034) ng/mL Urine Protein (Negative) Urine Glucose (UA) (Negative) Urine Blood (Negative) Urine Mucus (None) /hpf 06/04/18 06/04/18 Range/Units 02:00 09:00 RBC (4.30-5.90) m/uL Hgb (13.0-17.5) gm/dL Hct (39.0-53.0) % Plt Count (150-450) k/uL Lymphocytes # (1.0-4.8) k/uL Potassium (3.5-5.1) mmol/L BUN (9-20) mg/dL Creatinine (0.66-1.25) mg/dL Glucose (74-99) mg/dL Calcium (8.4-10.2) mg/dL Total Bilirubin (0.2-1.3) mg/dL CK-MB (CK-2) 5.3 H (0.0-2.4) ng/mL Troponin I 2.610 H* (0.000-0.034) ng/mL Urine Protein 3+ H (Negative) Urine Glucose (UA) 3+ H (Negative) Urine Blood Small H (Negative) Urine Mucus Rare H (None) /hpf Microbiology - Last 24 Hours (Table) 06/04/18 02:00 Urine Culture - Preliminary Urine,Voided Thrombosis Risk Factor Assmnt - DVT/VTE Prophylaxis DVT/VTE Prophylaxis: Mechanical Prophylaxis ordered - Choose All That Apply Any of the Below Risk Factors Present?: Yes Each Factor Represents 1 point: Abnormal pulmonary function (COPD), Age 41-60 years, Obesity (BMI >25), Serious lung disease incl. pneumonia (< 1month) Other Risk Factors: No Other congenital or acquired thrombophilia - If yes, enter type in comment: No Thrombosis Risk Factor Assessment Total Risk Factor Score: 4 Thrombosis Risk Factor Assessment Level: Moderate Risk Assessment and Plan Plan: #1 sepsis secondary to Multifocal pneumonia/interstitial pneumonia. Mycoplasma ordered. Legionella urinary antigen ordered. Continue patient on levofloxacin and vancomycin. Avoid IV fluids as patient is in volume overload from end- stage kidney disease. Lactic acid is normal. Continue DuoNeb for breathing treatments. Sputum culture ordered. Blood culture ordered. Tylenol for fever. Status post fluid bolus in the ER. Pro-calcitonin ordered #2 troponinemia likely secondary to end-stage renal disease no coronary artery disease cannot be ruled out. EKG with no signs of ST changes. Troponin 3 ordered patient has no history of coronary artery disease. Echocardiogram is ordered. Cardiology consult #3 hyperkalemia secondary to noncompliance to dialysis. Status post sodium bicarb and insulin. Kayexalate given in the ER a. repeat BMP. Patient need to have dialysis done emergently nephrology consulted #4 metabolic encephalopathy likely secondary to sepsis with possible hypercarbia. Patient was briefly on BiPAP currently on 4 L of nasal cannula. ABG ordered #5 acute hypoxic respiratory failure likely secondary to pneumonia with the possibility include volume overload. BNP ordered. Echocardiogram ordered. ABG ordered unlikely to be COPD exacerbation no wheezing on examination. Patient has poor compliance and has been intubated briefly in the past because of his hypoxia and hypercarbia. Pulmonary consulted due to patient's increased morbidity and poor compliance #6 type 2 diabetes insulin-dependent continue levemer there 27 units daily with 9 units with meals. Sliding scale ordered. #7 chronic diastolic heart failure. Echocardiogram ordered. Monitor input and output. Daily weights. Continue patient on Bumex 4 mg in the morning and 2 mg at bedtime. Continue diltiazem 180 mg by mouth daily , continue metoprolol and 50 mg twice a day . Lisinopril 20 mg by mouth twice a day #8 diabetic neuropathy continue Lyrica at 50 mg bedtime #9 End stage renal disease on hemodialysis Friday metastatic Friday. Continue PhosLo. Nephrology on consult #10 MONTSE noncompliant to CPAP #11 CAD status post PCI to the RCA. Continue aspirin 81 mg Lipitor 80 mg by mouth daily continue metoprolol 150 mg twice a day, diltiazem 180 mg daily #12 thrombocytopenia with splenomegaly which is alcohol induced. It is chronically low. Watch for medications that can drop the platelets will hold anticoagulation therap y #13 anxiety, depression continue Abilify #14 peripheral artery disease continue aspirin watch for platelet drop. Repeat CBC tomorrow #15 degenerative disc disease of cervical spine status post-ACDF continue [place] and MS Contin #16 DVT prophylaxis with mechanical prophylaxis knee-high RYAN hose #17 GI prophylaxis continue with PPIs Primary team cord status full code Disposition patient to stay one to 2 inpatient nights based on recovery
[2018-06-04] MEDS: hydrALAZINE HCL 50 MG TAB PO SCH ×3 (14:11→20:28)
[2018-06-04] MEDS: LISINOPRIL 20 MG TAB PO SCH ×2 (14:11→20:29)
[2018-06-04] MEDS: amLODIPine 5 MG TAB PO SCH ×2 (14:12→20:29)
[2018-06-04] MEDS: CHOLECALCIFEROL 1,000 UNIT TAB PO SCH (14:12)
[2018-06-04] MEDS: guaiFENesin 600 MG TABLET.ER PO SCH ×2 (14:12→20:28)
[2018-06-04] MEDS: ARIPiprazole 5 MG TAB PO SCH (14:12)
[2018-06-04] MEDS: FAMOTIDINE 20 MG TAB PO SCH (14:12)
[2018-06-04] MEDS: PIPERACILLIN-TAZOBACTAM 3.375 GM in DEXTROSE/WATER 1 50ML.BAG IVPB SCH (14:22)
[2018-06-04] MEDS ORDERED: HEPARIN SODIUM,PORCINE 5,000 UNIT/ML 1 ML VIAL IV PRN (14:50)
[2018-06-04] MEDS ORDERED: HEPARIN SODIUM,PORCINE 5,000 UNIT/ML 1 ML VIAL IV ONE (14:50)
--- NOTE | 2018-06-04 14:57 | P.PN ---
Progress Note - Text Progress Note Date: 06/04/18 Initial troponin of 0.651 lead to first impression that patient had elevation of troponin secondary to renal failure however second troponin came back at 2.61. Patient does appear to be positive for a non-ST elevation myocardial infarction. Patient has chronically low platelet count, currently 52 with a hemoglobin of 9.8. We will hold off on heparin for now. We will treat the patient medically with nitrates and beta blockers. Further recommendations to follow depending on patient's clinical course. The above dictated assessment and findings were discussed with signing physician. The impression and plan of care have been directed as dictated. Cookie Polanco, Nurse Practitioner, acting as scribe for signing physician.
[2018-06-04] MEDS ORDERED: HEPARIN SOD,PORK IN 0.45% NACL 25,000 UNIT in 0.45% NACL 1 500ML.BAG IV SCH (15:00)
[2018-06-04 15:33] LABS: Glucose,Whole Blood 184 mg/dL (75-99)
[2018-06-04 15:46] LABS: Creatine Kinase MB 5.4 ng/mL (0.0-2.4)
[2018-06-04 15:47] LABS: Troponin I 3.56 ng/mL (0.000-0.034)
[2018-06-04 16:32] LABS: Glucose,Whole Blood 231 mg/dL (75-99)
[2018-06-04] MEDS: ISOSORBIDE MONONITRATE ER 30 MG TAB.ER.24H PO SCH (17:15)
--- NOTE | 2018-06-04 17:36 | P.CNPUL ---
History of Present Illness Consult date: 06/04/18 Reason for consult: dyspnea Chief complaint: Altered mental status History of present illness: This is a 57-year-old white male with history of multiple medical problems including chronic renal failure, on hemodialysis. Patient is also known to history of coronary artery disease, previous PCI, stenting of RCA 3 stents total in 2013. History of hypertension, cardiovascular disease, type 2 diabetes , diabetic neuropathy, history of alcohol abuse with associated thrombocytopenia and splenomegaly, patient had previous history of metabolic encephalopathy treated in June of 2017, history of diastolic congestive heart failure, admitted this time with mostly symptoms of generalized weakness, confusion, and change in mental status. Patient has also been complaining of some shortness of breath, chest x-ray was suggestive of interstitial edema, his BNP level was elevated, troponin was also elevated, received Lasix in the ER, and there was a significant improvement in his overall pulmonary status patient apparently diuresed significantly although he doesn't usually make much urine since he is a renal failure patient. By the time I saw the patient on consultation, he had no active pulmonary symptoms whatsoever. Patient was relatively asymptomatic, no cough no wheezing no shortness of breath. However apparently when he was admitted there was a concern that the patient may have sepsis because his lactic acid was 1.7. And he was placed empirically on antibiotics for presumptive pneumonia, although the findings on the chest x-ray and the clinical findings are mostly findings of interstitial edema. Again I strongly doubt pneumonia. During my evaluation, the patient was basically asymptomatic. He had no chest pain no cough no wheezing no fever no chills no hemoptysis and no chest pain. Troponin was noted to be a bit higher compared to the morning troponin. His BNP level was over 17,600. Review of Systems 14 point review of systems were obtained, please refer to pertinent positives in HPI, otherwise remaining systems are negative. Past Medical History Past Medical History: Coronary Artery Disease (CAD), Chest Pain / Angina, COPD, CVA/TIA, Diabetes Mellitus, GERD/Reflux, Hyperlipidemia, Hypertension, Liver Disease, Osteoarthritis (OA), Renal Disease, Respiratory Disorder, Sleep Apnea/ CPAP/BIPAP Additional Past Medical History / Comment(s): Hx pancreatitis due to heavy alcohol use - no alcohol use in over 6 yrs, fatty liver, uses cpap, varicose veins bilaterally, chronic kidney disease due to diabetes on hemodialysis 3 times a week with last time being 06/01/18, , last received hemodialysis 06/01/18 , chronic low platelets and usually needs platelets prior to surgical procedures, past peritoneal dialysis catheter being removed because was not functioning properly, CVA with R sided numbess, ARDS, past respiratory arrest/ intubated and trached, past metabolic encephalopathy 2ndary to ESRD, thrombocytopenia d/t splenomegally, chronic back and cervical pain, cervical DDD with surgery/plate. History of Any Multi-Drug Resistant Organisms: None Reported Past Surgical History: Appendectomy, Back Surgery, Cholecystectomy, Heart Catheterization, Heart Catheterization With Stent Additional Past Surgical History / Comment(s): PCI with stents, tracheostomy, bladder stone removal, anterior cervical disc fusion/plate, dialysis catheter insertion 12/27/16 since removed, jugular catheter insertion, colonoscopy. Past Anesthesia/Blood Transfusion Reactions: No Reported Reaction Date of Last Stent Placement:: 2013 Smoking Status: Former smoker - Past Family History Father Family Medical History: Coronary Artery Disease (CAD), Myocardial Infarction (HI ) Additional Family Medical History / Comment(s): Father of a HI at the age of 65yrs. Mother Family Medical History: Coronary Artery Disease (CAD), Myocardial Infarction (HI ) Additional Family Medical History / Comment(s): Mother of a HI at the age of 55yrs. Brother(s) Family Medical History: Cancer Daughter(s) Family Medical History: Vascular Disorder (VSD) Medications and Allergies Home Medications Medication Instructions Recorded Confirmed Type Atorvastatin Calcium [Lipitor] 80 mg PO HS #30 tab 03/01/14 06/04/18 Rx Nitroglycerin Sl Tabs [Nitrostat] 0.4 mg SUBLINGUAL Q5M PRN 06/01/17 06/04/18 History Lisinopril [Zestril] 20 mg PO BID #60 tab 06/03/17 06/04/18 Rx ARIPiprazole [Abilify] 5 mg PO DAILY 07/06/17 06/04/18 History Calcium Acetate [PhosLo] 1,334 mg PO TID-W/MEALS #90 cap 07/10/17 06/04/18 Rx ALPRAZolam [Xanax] 0.25 mg PO BID PRN 06/04/18 06/04/18 History Amoxicillin 500 mg PO TID 06/04/18 06/04/18 History Bumetanide [BUMEX] 2 mg PO HS 06/04/18 06/04/18 History Bumetanide [BUMEX] 4 mg PO DAILY 06/04/18 06/04/18 History Diltiazem HCl [Diltiazem 24Hr ER] 180 mg PO DAILY 06/04/18 06/04/18 History HYDROcodone/APAP 10-325MG [[place] 1 tab PO Q4HR PRN 06/04/18 06/04/18 History 10-325] Insulin Glargine,Hum.rec.anlog 20 unit SQ DAILY 06/04/18 06/04/18 History [Basaglar Kwikpen U-100] Insulin NPH Hum/Reg Insulin Hm 20 unit SQ AC-TID 06/04/18 06/04/18 History [NovoLIN 70-30 100 UNIT/ML VIAL] Metoprolol Tartrate [Lopressor] 150 mg PO BID 06/04/18 06/04/18 History Morphine Sulfate ER [Ms Contin] 30 mg PO Q12HR 06/04/18 06/04/18 History Omeprazole 20 mg PO DAILY 06/04/18 06/04/18 History Pregabalin [Lyrica] 50 mg PO BID 06/04/18 06/04/18 History Allergies Allergy/AdvReac Type Severity Reaction Status Date / Time No Known Allergies Allergy Verified 06/04/18 09:30 Physical Exam Vitals: Vital Signs Temp Pulse Pulse Resp BP BP Pulse Ox 06/04/18 15:49 16 06/04/18 15:31 95 96 06/04/18 15:00 100.3 F H 89 16 111/54 100 06/04/18 14:05 100 18 133/63 100 06/04/18 08:03 97 06/04/18 08:00 18 06/04/18 07:46 99.4 F 125 H 32 H 147/65 100 06/04/18 05:57 98 26 H 183/81 98 06/04/18 05:50 28 H 06/04/18 03:23 98.6 F 104 H 20 172/78 96 06/04/18 00:13 103.1 F H 108 H 18 203/84 96 Intake and Output 06/04/18 06/04/18 06/04/18 06:59 14:59 22:59 Intake Total 100 210 Output Total 2400 Balance -2300 210 Intake: IV 100 160 Levofloxacin 500Mg-D5w 100 Pmx 500 mg In Dextrose/ Water 1 100ml.bag @ 100 mls/hr IVPB Q48H NATHAN Rx#: [id number] Sodium Chloride 0.9% 1, 160 000 ml @ 20 mls/hr IV . Q24H NATHAN Rx#:[id number] Intake, IV Titration 50 Amount Piperacillin-Tazobactam 3 50 .375 gm In Dextrose/Water 1 50ml.bag @ 12.5 mls/hr IVPB Q12H NATHAN Rx#: [id number] Output: Urine 400 Other 2000 Other: Voiding Method Urinal Urinal Weight 104.326 kg Physical Exam: Revealed a 57-year-old white male, very pleasant, in no form of distress, basically asymptomatic during my evaluation. Head: Atraumatic, normocephalic, patient was noted to have some sterile dressing and gauze over his right ear and forehead mostly because of recent surgery for basal cell carcinoma/Mohs procedure. HEENT:[Neck is supple.] [No neck masses.] [No thyromegaly.] [No JVD.] PERRLA, EOMI, no icterus. Chest: [Crackles at the bases, no rhonchi, no wheezes, symmetrical chest expansion, no chest wall tenderness. Cardiac Exam: [Normal S1 and S2, no S3 gallop, 2/6 systolic murmur thought the precordium.] Abdomen: [Soft, nontender, no megaly, no rebound, no guarding, normal bowel sounds.] Extremities: [No clubbing, trace of bipedal edema, no cyanosis.], AV fistula noted in the left forearm. Neurological Exam: [No focal neurologic deficit.] Lymphatics: No lymphadenopathy Psychiatric: Normal mood, affect, and mental status examination. Results - Laboratory Findings CBC and BMP: 06/04/18 02:00 06/04/18 01:10 PT/INR, D-dimer PT 10.8 sec (9.0-12.0) 06/04/18 01:10 INR 1.1 (<1.2) 06/04/18 01:10 Abnormal lab findings: Abnormal Labs 06/04/18 06/04/18 06/04/18 01:10 01:10 02:00 RBC 2.97 L Hgb 9.8 L Hct 28.5 L Plt Count 52 L Lymphocytes # 0.6 L Potassium 6.7 H* BUN 56 H Creatinine 5.42 H Glucose 233 H POC Glucose (mg/dL) Calcium 8.0 L Total Bilirubin 1.4 H CK-MB (CK-2) Troponin I 0.651 H* Urine Protein Urine Glucose (UA) Urine Blood Urine Mucus 06/04/18 06/04/18 06/04/18 02:00 09:00 11:06 RBC Hgb Hct Plt Count Lymphocytes # Potassium BUN Creatinine Glucose POC Glucose (mg/dL) 223 H Calcium Total Bilirubin CK-MB (CK-2) 5.3 H Troponin I 2.610 H* Urine Protein 3+ H Urine Glucose (UA) 3+ H Urine Blood Small H Urine Mucus Rare H 06/04/18 06/04/18 06/04/18 15:03 15:13 16:30 RBC Hgb Hct Plt Count Lymphocytes # Potassium BUN Creatinine Glucose POC Glucose (mg/dL) 184 H 231 H Calcium Total Bilirubin CK-MB (CK-2) 5.4 H Troponin I 3.560 H* Urine Protein Urine Glucose (UA) Urine Blood Urine Mucus - Diagnostic Findings Chest x-ray: image reviewed (Chest x-ray is mostly suggestive of interstitial edema however the possibility of underlying pneumonia is not entirely ruled out , but based on the clinical history and based on the labs this is felt to be less likely.) Assessment and Plan Assessment: Impression: 1 acute pulmonary edema, most likely secondary to fluid overload secondary to chronic renal failure, and possible component diastolic dysfunction. Echocardiogram is pending. To rule out systolic dysfunction. 2 strongly doubt pneumonia and sepsis, 3 acute presentation of metabolic encephalopathy resolved by the time I evaluated the patient. 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 8 end-stage renal disease, on hemodialysis. 9 type 2 diabetes 10 hyperkalemia secondary to renal failure, patient apparently has been noncompliant with dialysis. Nephrology is following. Recommendation: Again I strongly doubt pneumonia, continue present treatment plan empirically, continue diuretics, repeat chest x-ray in a.m. We will continue to follow. Time with Patient: Greater than 30
--- NOTE | 2018-06-04 17:57 | ECHOF ---
Referral Reason:elevated troponin MEASUREMENTS -------- HEIGHT: 182.9 cm WEIGHT: 104.3 kg BP: IVSd: 1.2 cm (0.6 - 1.1) LVIDd: 5.8 cm (3.9 - 5.3) LVPWd: 1.0 cm (0.6 - 1.1) IVSs: 1.6 cm LVIDs: 4.9 cm LVPWs: 1.1 cm Ao Diam: 3.5 cm (2.0 - 3.7) AV Cusp: 1.8 cm (1.5 - 2.6) LA Diam: 3.8 cm (2.7 - 3.8) MV EXCURSION: 18.547 mm (> 18.000) MV EF SLOPE: 116 mm/s (70 - 150) EPSS: 1.4 cm MV E Eben: 0.77 m/s MV DecT: 173 ms MV A Eben: 0.40 m/s MV E/A Ratio: 1.90 FINDINGS -------- Sinus rhythm. TDS STUDY PT SITTING UP AND COUGHING THRU OUT TEST. The left ventricular size is normal. There is borderline concentric left ventricular hypertrophy. Overall left ventricular systolic function is moderate-severely impaired with, an EF between 30 - 35 %. Anterseptal Hypokinesis Inferior Hypokinesis Septal Hypokinesis The right ventricle is normal in size. The left atrial size is normal. The right atrial size is normal. 1.5MG OF DEFINITY UTLIZED: 2 OR MORE WALL SEGMENTS NOT VISUALIZED. The aortic valve was not well visualized. Mild mitral regurgitation is present. Mild tricuspid regurgitation present. There is no evidence of pulmonary hypertension. The right v entricular systolic pressure, as measured by Doppler, is {RVSP}. The pulmonic valve was not well visualized. The aortic root size is normal. There is no pericardial effusion. CONCLUSIONS -------- 1. TDS STUDY PT SITTING UP AND COUGHING THRU OUT TEST. 2. The left ventricular size is normal. 3. There is borderline concentric left ventricular hypertrophy. 4. Overall left ventricular systolic function is moderate-severely impaired with, an EF between 30 - 35 %. 5. Anterseptal Hypokinesis 6. Inferior Hypokinesis 7. Septal Hypokinesis 8. The right ventricle is normal in size. 9. The left atrial size is normal. 10. The right atrial size is normal. 11. 1.5MG OF DEFINITY UTLIZED: 2 OR MORE WALL SEGMENTS NOT VISUALIZED. 12. The aortic valve was not well visualized. 13. Mild mitral regurgitation is present. 14. Mild tricuspid regurgitation present. 15. There is no evidence of pulmonary hypertension. 16. The right ventricular systolic pressure, as measured by Doppler, is {RVSP}. 17. The pulmonic valve was not well visualized. 18. The aortic root size is normal. 19. There is no pericardial effusion. TELECOM ENGINEER: Monisha Agee RDCS
[2018-06-04 19:06] LABS: Hemoglobin A1C 4.8 % (4.0-6.0)
[2018-06-04] MEDS: METOPROLOL TARTRATE 50 MG TAB PO SCH (20:27)
[2018-06-04] MEDS: ATORVASTATIN 80 MG TAB PO SCH (20:27)
[2018-06-04] MEDS: BUMETANIDE 1 MG TAB PO SCH (20:27)
[2018-06-04] MEDS: PREGABALIN 50 MG CAP PO SCH (20:28)
[2018-06-04] MEDS: MORPHINE SULFATE ER 30 MG TABLET PO SCH (20:28)
[2018-06-04 20:40] LABS: Glucose,Whole Blood 167 mg/dL (75-99)
--- NOTE | 2018-06-04 20:56 | CONS ---
CONSULTATION Patient is seen for end-stage renal disease. HISTORY OF PRESENT ILLNESS: The patient is a 57-year-old male with end-stage renal disease, on hemodialysis on a Friday, Friday, Friday schedule at the [facility]. The patient missed his dialysis yesterday as he was very weak and could not get out of bed. He had surgery for skin moles on Friday. The patient states that he did not receive any pain medications. He denies any fever, chills, nausea, vomiting or abdominal pain. He does have some cough. According to the patient, dialysis was uneventful on Friday. Serum potassium was 6.7 when patient came in. There is also a sensation of some volume overload. Currently the patient has no fever, nausea, vomiting or diarrhea. PAST MEDICAL HISTORY: End-stage renal disease, on hemodialysis on a Friday, Friday, Friday schedule, anemia of chronic disease, underlying history of depression, thrombocytopenia, osteoarthritis, COPD, CVA/TIA. Coronary artery disease, obstructive sleep apnea, previous history of pancreatitis related to ETOH abuse, type 2 diabetes, history of splenomegaly. PAST SURGICAL HISTORY: PermCath placement, AV fistula, appendectomy, cholecystectomy, cardiac catheterization, coronary stent placement, colonoscopy, surgery for bladder stones, and cervical spine surgery, coronary stents, and cardiac catheterization. SOCIAL HISTORY: Patient is a former smoker. No history of abuse or alcohol abuse. MEDICATIONS: Medications at home prior to admission include Lipitor, Nitrostat, Zestril, Abilify, PhosLo, Xanax, Bumex, amoxicillin, Diltiazem, insulin, [place], metoprolol, morphine, , Lyrica. ALLERGIES: None. EXAMINATION: Patient is comfortable, awake, alert, not in acute distress. He is alert and oriented x3. Blood pressure this morning was 147/65, heart rate was 125 per minute. He is afebrile. Examination of the heart: S1 and S2. Examination of the lungs: Bilateral breath sounds are heard. Basal crackles are heard. Abdomen is soft, nontender. Exam of the lower extremities shows chronic skin changes. Trace edema. BOWSTRING MAKER exam is grossly intact. LABS: Sodium 138, potassium 6.7, BUN 66, serum creatinine 5.42. Troponin was up to 2.6. TSH 1.3, hemoglobin 9.8 g/dL. ASSESSMENT: 1. End-stage renal disease, on hemodialysis on a Friday, Friday, Friday schedule. We will dialyze the patient today. He will be dialyzed again tomorrow, which is his routine schedule. 2. Elevated troponins underlying non ST elevation myocardial infarction. Cardiology will be consulted. 3. Anemia of chronic disease. 4. Hyperkalemia associated with end-stage renal disease and missed hemodialysis treatment yesterday. The patient will be dialyzed now. 5. History of coronary artery disease and previous coronary stents. 6. Mild volume overload. PLAN: We will try for 2-3 L of ultrafiltration today and the patient will be dialyzed again tomorrow. If her cardiac catheterization needs to be performed we can . RANJEET / IJN: [id number] /
[2018-06-05] MEDS: PIPERACILLIN-TAZOBACTAM 3.375 GM in DEXTROSE/WATER 1 50ML.BAG IVPB SCH ×2 (01:43→15:56)
[2018-06-05] MEDS ORDERED: LEVOFLOXACIN 750MG-D5W PMX 750 MG in DEXTROSE/WATER 1 150ML.BAG IVPB SCH (03:25)
[2018-06-05] MEDS: SODIUM CHLORIDE 0.9% 1,000 ML IV SCH (04:36)
[2018-06-05 05:09] LABS: Mycoplasma IgM Antibody 0.55 INDEX (<=0.90)
[2018-06-05 06:16] LABS: Glucose,Whole Blood 123 mg/dL (75-99)
[2018-06-05] MEDS: CALCIUM ACETATE 667 MG CAP PO SCH ×3 (06:27→17:33)
[2018-06-05] MEDS: PANTOPRAZOLE 40 MG TABLET PO SCH (06:27)
[2018-06-05] MEDS: INSULIN ASPART 100 UNIT/ML 1 ML 10 ML VIAL SQ SCH ×3 (07:05→17:33)
[2018-06-05 07:20] LABS: Albumin 2.8 g/dL (3.5-5.0); Basophils % (A) 0 %; Calcium 7.9 mg/dL (8.4-10.2); Eosinophils # (A) 0.1 k/uL (0-0.7); Eosinophils % (A) 2 %; HCT 21.7 % (39.0-53.0); Lymphocytes % (A) 24 %; MCH 34.3 pg (25.0-35.0); Mean Platelet Volume 8.5; Monocytes # (A) 0.2 k/uL (0-1.0); Monocytes % (A) 6 %; Neutrophils # (A) 2.7 k/uL (1.3-7.7); Neutrophils % (A) 67 %; Poikilocytosis Slight; Potassium 5.1 mmol/L (3.5-5.1); RBC 2.21 m/uL (4.30-5.90); RDW 15.6 % (11.5-15.5); Total Bilirubin 1.9 mg/dL (0.2-1.3); Total Protein 5.3 g/dL (6.3-8.2); WBC 4.1 k/uL (3.8-10.6)
[2018-06-05 07:21] LABS: HGB 7.6 gm/dL (13.0-17.5); Platelet Count 39 k/uL (150-450)
--- NOTE | 2018-06-05 07:35 | XR ---
EXAMINATION TYPE: XR chest 1V portable DATE OF EXAM: 06/05/2018 COMPARISON: 06/04/2018 INDICATION: CHF pneumonia TECHNIQUE: Frontal and lateral views of the chest are obtained. FINDINGS: The heart size is enlarged. The pulmonary vasculature is normal. There is a mild infiltrate which is increasing in the right lower lobe. Some mild left basilar atelec tasis is present. There is slight progression of the findings over the interval. IMPRESSION: 1. Mild bibasilar infiltrates somewhat progressive from comparison
[2018-06-05] MEDS: guaiFENesin 600 MG TABLET.ER PO SCH ×2 (08:14→21:34)
[2018-06-05] MEDS: FAMOTIDINE 20 MG TAB PO SCH (08:14)
[2018-06-05] MEDS: CHOLECALCIFEROL 1,000 UNIT TAB PO SCH (08:14)
[2018-06-05] MEDS: ARIPiprazole 5 MG TAB PO SCH (08:15)
[2018-06-05] MEDS: SPIRONOLACTONE 25 MG TAB PO SCH (08:16)
[2018-06-05] MEDS: ACETAMINOPHEN TAB 325 MG TAB PO PRN (08:19)
[2018-06-05] MEDS: INSULIN DETEMIR 100 UNIT/ML 10 ML VIAL SQ SCH (08:20)
[2018-06-05] MEDS ORDERED: VANCOMYCIN 1,500 MG in SODIUM CHLORIDE 0.9% 250 ML IVPB ONE (09:00)
[2018-06-05 10:24] LABS: Reticulocyte % 2.1 % (0.5-2.0)
--- NOTE | 2018-06-05 12:12 | P.PN ---
<Delilah Cohn - Last Filed: 06/05/18 11:41> Subjective Progress Note Date: 06/05/18 Principal diagnosis: his is a 57 Year-Old male one of patient with a previous medical history significant for CAD post PCI and stenting of the RCA x3 stents 2013. 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 Last admitted June 2017 for metabolic encephalopathy and acute hypoxic hypercarbic respiratory failure secondary to acute diastolic heart failure and hypercarbia for which patient was briefly intubated. Sepsis was ruled out during the last admission. Patient comes at this time with increased generalized weakness associated with change in mental status. Patient does complain of some cough and shortness of breath with sputum production. Most of the history is provided by the family at bedside as patient is not able to give any history. He did have 3 suspected skin cancer removed for biopsy by Dr. Myers but was feeling unwell for past 2 days. Patient missed dialysis yesterday due to the weakness. He usually gets it at Friday and Friday. In the ER patient was found to have a fever of 103 pulse rate of 125, respiratory rate 32, blood pressure 183/81. Labs obtained in the ER suggested leukocyte of 8.6 chronic thrombocytopenia with platelets 52, INR 1.1, potassium 6.7, creatinine 5.42, glucose 233 calcium 8, total bilirubin 1.4 initial troponin 0.651 which increased to 2.6. Lactate is 1.7 Patient was evaluated by cardiology in the ER was suggested that the increase in troponin been related to sepsis. Echocardiogram has been ordered. Chest x-ray done in the ER concerning for interstitial infiltrate concerning for pneumonia. Patient has already received 1 dose of vancomycin and Levaquin dose adjusted to kidney functions. Due to patient's end-stage renal disease patient would not be able to get any fluid boluses or at maintainance. Pro- calcitonin ordered. Mycoplasma and urinary legionella ordered. Patient is admitted for sepsis secondary to community-acquired pneumonia with possible volume overload and hypercarbia causing change in mental status. 06/05: Patient lying in bed with Dialysis at bedside. Patient did get up and walk around today but states he was Short of breath when returning to bed. Patient continues with SOB with exertion and fatigue. Patient has a history of anemia, thrombocytopenia and Hgb decreased to 7.6. Patient does complain of bilateral abdominal pain. Review of systems Constitutional: Denies chills, endorses fever, endorses lethargy Ears, nose, mouth and throat:Denies dental pain, Denies headache, Denies nasal discharge, Denies nose pain Cardiovascular: Denies chest pain, Denies decreased exercise tolerance, Denies edema, Denies high blood pressure, Denies irregular heart beat, Denies palpitations, Denies paroxysmal nocturnal dyspnea, Denies rapid heart beat, endorses shortness of breath Respiratory: endorses cough, endorses cough with sputum, endorses dyspnea, Denies home oxygen, Denies wheezing Gastrointestinal: Bilateral abdominal pain, Denies change in bowel habits, Denies coffee ground emesis, Denies early satiety, Denies excessive gas, Denies heartburn, Denies hematemesis, Denies hematochezia, Denies loss of appetite, Denies nausea, Denies vomiting Genitourinary: Denies dysuria, Denies flank pain, Denies kidney stones, Denies menorrhagia, Denies urgency, Denies urinary frequency Musculoskeletal: Denies gait dysfunction, Denies limitation of motion, Denies morning stiffness, Denies muscle cramps Integumentary: Denies rash, Denies wounds, Denies brittle nails, Denies change in hair/nails, Denies darkening of skin Neurological: Denies balance difficulties, Denies change in speech, Denies double vision, Denies gait dysfunction, Denies loss of vision, Denies motor disturbance, Denies numbness, Denies paralysis, Denies paresthesias, Denies seizures Psychiatric: Denies anxiety, Denies depression Endocrine: Denies excessive sweating, Denies excessive thirst, Denies high blood sugars, Denies palpitations Hematologic/Lymphatic: Denies easy bruising, Denies lymphadenopathy Objective - Vital Signs Vital signs: Vital Signs Temp 101.1 F H 06/05/18 08:10 Pulse 82 06/05/18 08:10 Resp 16 06/05/18 08:10 BP 124/58 06/05/18 08:10 Pulse Ox 96 06/05/18 08:10 Intake & Output 06/04/18 06/05/18 06/05/18 18:59 06:59 18:59 Intake Total 428 302 386 Output Total 2400 200 Balance -1971 302 186 Weight 93.803 kg Intake: IV 260 Levofloxacin 500Mg-D5w 100 Pmx 500 mg In Dextrose/ Water 1 100ml.bag @ 100 mls/hr IVPB Q48H [facility]ATHAN Rx#: [id number] Sodium Chloride 0.9% 1, 160 000 ml @ 20 mls/hr IV . Q24H NATHAN Rx#:[id number] Intake, IV Titration 50 Amount Piperacillin-Tazobactam 3 50 .375 gm In Dextrose/Water 1 50ml.bag @ 12.5 mls/hr IVPB Q12H NATHAN Rx#: [id number] Oral 118 302 386 Output: Urine 400 200 Other 2000 Other: Voiding Method Urinal Urinal Urinal # Voids 0 0 Constitutional General appearance: cooperative, in mild distress, - EENT Eyes: anicteric sclerae, PERRLA, normal appearance ENT: hearing grossly normal - Neck Neck: no lymphadenopathy, normal ROM, no other, no rigidity, no stridor, no thyromegaly - Respiratory Respiratory: bilateral: Decreased air entry with crackles at the bases - Cardiovascular Rhythm: Tachycardic Heart sounds: normal: S1, S2 Abnormal Heart Sounds: no systolic murmur, no diastolic murmur, no rub, no S3 Gallop, no S4 Martines - Gastrointestinal General gastrointestinal: normal bowel sounds, soft, bilateral lower abdominal pain - Integumentary Integumentary: biopsy site at forehead, wrist and right ear appears to be oozing bloody discharge but no sign of inflammation or concern for infection - Neurologic Neurologic: CNII-XII intact - Musculoskeletal Musculoskeletal: strength equal bilaterally - Psychiatric Psychiatric: A&O x's 3, appropriate affect - Constitutional General appearance: Present: average body habitus, cooperative, disheveled, mild distress, morbidly obese, no acute distress, obese, severe distress, thin - EENT Eyes: Present: abnormal pupil, anicteric sclerae, disc margins sharp, edentulous , EOMI, PERRLA, fundus normal, photophobia, dentition normal, poor dentition, ptosis, scleral icterus, normal appearance - Labs CBC & Chem 7: 06/05/18 06:11 06/05/18 06:11 Labs: Abnormal Lab Results - Last 24 Hours (Table) 06/04/18 06/04/18 06/04/18 Range/Units 09:00 15:03 15:13 RBC (4.30-5.90) m/uL Hgb (13.0-17.5) gm/dL Hct (39.0-53.0) % RDW (11.5-15.5) % Plt Count (150-450) k/uL Retic Count (0.5-2.0) % BUN (9-20) mg/dL Creatinine (0.66-1.25) mg/dL Glucose (74-99) mg/dL POC Glucose (mg/dL) 184 H (75-99) mg/dL Calcium (8.4-10.2) mg/dL Total Bilirubin (0.2-1.3) mg/dL CK-MB (CK-2) 5.4 H (0.0-2.4) ng/mL Troponin I 3.560 H* (0.000-0.034) ng/mL Total Protein (6.3-8.2) g/dL Albumin (3.5-5.0) g/dL Procalcitonin 0.62 H (0.02-0.09) ng/mL 06/04/18 06/04/18 06/04/18 Range/Units 16:30 20:26 20:38 RBC (4.30-5.90) m/uL Hgb (13.0-17.5) gm/dL Hct (39.0-53.0) % RDW (11.5-15.5) % Plt Count (150-450) k/uL Retic Count (0.5-2.0) % BUN (9-20) mg/dL Creatinine (0.66-1.25) mg/dL Glucose (74-99) mg/dL POC Glucose (mg/dL) 231 H 167 H (75-99) mg/dL Calcium (8.4-10.2) mg/dL Total Bilirubin (0.2-1.3) mg/dL CK-MB (CK-2) (0.0-2.4) ng/mL Troponin I 3.810 H* (0.000-0.034) ng/mL Total Protein (6.3-8.2) g/dL Albumin (3.5-5.0) g/dL Procalcitonin (0.02-0.09) ng/mL 06/05/18 06/05/18 06/05/18 Range/Units 06:11 06:11 06:11 RBC 2.21 L (4.30-5.90) m/uL Hgb 7.6 L D (13.0-17.5) gm/dL Hct 21.7 L (39.0-53.0) % RDW 15.6 H (11.5-15.5) % Plt Count 39 L (150-450) k/uL Retic Count 2.1 H (0.5-2.0) % BUN 44 H (9-20) mg/dL Creatinine 4.78 H (0.66-1.25) mg/dL Glucose 110 H (74-99) mg/dL POC Glucose (mg/dL) (75-99) mg/dL Calcium 7.9 L (8.4-10.2) mg/dL Total Bilirubin 1.9 H (0.2-1.3) mg/dL CK-MB (CK-2) (0.0-2.4) ng/mL Troponin I (0.000-0.034) ng/mL Total Protein 5.3 L (6.3-8.2) g/dL Albumin 2.8 L (3.5-5.0) g/dL Procalcitonin (0.02-0.09) ng/mL 06/05/18 Range/Units 06:15 RBC (4.30-5.90) m/uL Hgb (13.0-17.5) gm/dL Hct (39.0-53.0) % RDW (11.5-15.5) % Plt Count (150-450) k/uL Retic Count (0.5-2.0) % BUN (9-20) mg/dL Creatinine (0.66-1.25) mg/dL Glucose (74-99) mg/dL POC Glucose (mg/dL) 123 H (75-99) mg/dL Calcium (8.4-10.2) mg/dL Total Bilirubin (0.2-1.3) mg/dL CK-MB (CK-2) (0.0-2.4) ng/mL Troponin I (0.000-0.034) ng/mL Total Protein (6.3-8.2) g/dL Albumin (3.5-5.0) g/dL Procalcitonin (0.02-0.09) ng/mL Microbiology - Last 24 Hours (Table) 06/04/18 01:10 Blood Culture - Preliminary Blood No Growth after 24 hours 06/04/18 02:00 Urine Culture - Preliminary Urine,Voided Assessment and Plan Assessment: #1 sepsis secondary to Multifocal pneumonia/interstitial pneumonia. Mycoplasma negative. Waiting for Legionella urinary antigen results. Continue patient on levofloxacin and vancomycin. Avoid IV fluids as patient is in volume overload from end-stage kidney disease. Lactic acid is normal. Continue DuoNeb for breathing treatments. Tylenol for fever. Status post fluid bolus in the ER. Pro-calcitonin positive. Consult ordered for Infectious Diseases. #2 troponinemia likely secondary to end-stage renal disease no coronary artery disease cannot be ruled out. EKG with no signs of ST changes. Troponin 3 ordered patient has no history of coronary artery disease. Echocardiogram decreased to 30-35%. Cardiology consult #3 hyperkalemia secondary to noncompliance to dialysis. Status post sodium bicarb and insulin. Repeat potassium stable at 5.1. Continue with Dialysis. #4 metabolic encephalopathy likely secondary to sepsis with possible hypercarbia. Patient was briefly on BiPAP currently on 4 L of nasal cannula. #5 acute hypoxic respiratory failure likely secondary to pneumonia with the possibility include volume overload. BNP elevated. Echocardiogram decreased to 30-35%. ABG ordered unlikely to be COPD exacerbation no wheezing on examination. Patient has poor compliance and has been intubated briefly in the past because of his hypoxia and hypercarbia. Pulmonary consulted due to patient 's increased morbidity and poor compliance #6 type 2 diabetes insulin-dependent continue levemer there 27 units daily with 9 units with meals. Sliding scale ordered. #7 chronic diastolic heart failure. Echocardiogram decreased and pending cardiology consult. Monitor input and output. Daily weights. Continue patient on Bumex 4 mg in the morning and 2 mg at bedtime. Continue diltiazem 180 mg by mouth daily , continue metoprolol and 50 mg twice a day . Lisinopril 20 mg by mouth twice a day #8 diabetic neuropathy continue Lyrica at 50 mg bedtime #9 End stage renal disease on hemodialysis Friday. Continue PhosLo. Nephrology on consult #10 MONTSE noncompliant to CPAP #11 CAD status post PCI to the RCA. Continue aspirin 81 mg Lipitor 80 mg by mouth daily continue metoprolol 150 mg twice a day, diltiazem 180 mg daily #12 thrombocytopenia with splenomegaly which is alcohol induced. It is chronically low. Watch for medications that can drop the platelets will hold anticoagulation therapy #13 anxiety, depression continue Abilify #14 peripheral artery disease continue aspirin watch for platelet drop. Repeat CBC tomorrow #15 degenerative disc disease of cervical spine status post-ACDF continue [place] and [place] Contin #16 DVT prophylaxis with mechanical prophylaxis knee-high RYAN hose #17 GI prophylaxis continue with PPIs #18 chronic Anemia related to iron deficency- iron profile ordered. #[address] with no contrast ordered. Disposition: patient to stay 1-2 more nights based upon recovery and fever free for 24 hours. <Elba Ramirez - Last Filed: 06/05/18 12:49> Objective - Vital Signs Vital signs: Vital Signs Temp 99.7 F H 06/05/18 12:00 Pulse 76 06/05/18 12:00 Resp 16 06/05/18 12:00 BP 132/79 06/05/18 12:00 Pulse Ox 97 06/05/18 12:00 Intake & Output 06/04/18 06/05/18 06/05/18 18:59 06:59 18:59 Intake Total 428 302 386 Output Total 2400 200 Balance -1972 302 186 Weight 93.803 kg Intake: IV 260 Levofloxacin 500Mg-D5w 100 Pmx 500 mg In Dextrose/ Water 1 100ml.bag @ 100 mls/hr IVPB Q48H [facility] Rx#: [id number] Sodium Chloride 0.9% 1, 160 000 ml @ 20 mls/hr IV . Q24H [facility]ATH[facility] Rx#:[id number] Intake, IV Titration 50 Amount Piperacillin-Tazobactam 3 50 .375 gm In Dextrose/Water 1 50ml.bag @ 12.5 mls/hr IVPB Q12H [facility] Rx#: [id number] Oral 118 302 386 Output: Urine 400 200 Other 2000 Other: Voiding Method Urinal Urinal Urinal # Voids 0 0 - Labs CBC & Chem 7: 06/05/18 06:11 06/05/18 06:11 Labs: Abnormal Lab Results - Last 24 Hours (Table) 06/04/18 06/04/18 06/04/18 Range/Units 09:00 15:03 15:13 RBC (4.30-5.90) m/uL Hgb (13.0-17.5) gm/dL Hct (39.0-53.0) % RDW (11.5-15.5) % Plt Count (150-450) k/uL Retic Count (0.5-2.0) % BUN (9-20) mg/dL Creatinine (0.66-1.25) mg/dL Glucose (74-99) mg/dL POC Glucose (mg/dL) 184 H (75-99) mg/dL Calcium (8.4-10.2) mg/dL Total Bilirubin (0.2-1.3) mg/dL CK-MB (CK-2) 5.4 H (0.0-2.4) ng/mL Troponin I 3.560 H* (0.000-0.034) ng/mL Total Protein (6.3-8.2) g/dL Albumin (3.5-5.0) g/dL Procalcitonin 0.62 H (0.02-0.09) ng/mL 06/04/18 06/04/18 06/04/18 Range/Units 16:30 20:26 20:38 RBC (4.30-5.90) m/uL Hgb (13.0-17.5) gm/dL Hct (39.0-53.0) % RDW (11.5-15.5) % Plt Count (150-450) k/uL Retic Count (0.5-2.0) % BUN (9-20) mg/dL Creatinine (0.66-1.25) mg/dL Glucose (74-99) mg/dL POC Glucose (mg/dL) 231 H 167 H (75-99) mg/dL Calcium (8.4-10.2) mg/dL Total Bilirubin (0.2-1.3) mg/dL CK-MB (CK-2) (0.0-2.4) ng/mL Troponin I 3.810 H* (0.000-0.034) ng/mL Total Protein (6.3-8.2) g/dL Albumin (3.5-5.0) g/dL Procalcitonin (0.02-0.09) ng/mL 06/05/18 06/05/18 06/05/18 Range/Units 06:11 06:11 06:11 RBC 2.21 L (4.30-5.90) m/uL Hgb 7.6 L D (13.0-17.5) gm/dL Hct 21.7 L (39.0-53.0) % RDW 15.6 H (11.5-15.5) % Plt Count 39 L (150-450) k/uL Retic Count 2.1 H (0.5-2.0) % BUN 44 H (9-20) mg/dL Creatinine 4.78 H (0.66-1.25) mg/dL Glucose 110 H (74-99) mg/dL POC Glucose (mg/dL) (75-99) mg/dL Calcium 7.9 L (8.4-10.2) mg/dL Total Bilirubin 1.9 H (0.2-1.3) mg/dL CK-MB (CK-2) (0.0-2.4) ng/mL Troponin I (0.000-0.034) ng/mL Total Protein 5.3 L (6.3-8.2) g/dL Albumin 2.8 L (3.5-5.0) g/dL Procalcitonin (0.02-0.09) ng/mL 06/05/18 06/05/18 Range/Units 06:15 11:56 RBC (4.30-5.90) m/uL Hgb (13.0-17.5) gm/dL Hct (39.0-53.0) % RDW (11.5-15.5) % Plt Count (150-450) k/uL Retic Count (0.5-2.0) % BUN (9-20) mg/dL Creatinine (0.66-1.25) mg/dL Glucose (74-99) mg/dL POC Glucose (mg/dL) 123 H 111 H (75-99) mg/dL Calcium (8.4-10.2) mg/dL Total Bilirubin (0.2-1.3) mg/dL CK-MB (CK-2) (0.0-2.4) ng/mL Troponin I (0.000-0.034) ng/mL Total Protein (6.3-8.2) g/dL Albumin (3.5-5.0) g/dL Procalcitonin (0.02-0.09) ng/mL Microbiology - Last 24 Hours (Table) 06/04/18 02:00 Urine Culture - Final Urine,Voided 06/04/18 01:10 Blood Culture - Preliminary Blood No Growth after 24 hours Assessment and Plan Assessment: Patient appears better than yesterday is currently on room air. Hemoglobin dropped from 9.8-7.6 iron profile ordered no active site of bleeding seen. Troponin increased to 3.8, no concern for acute SD per cardiology. Potassium improved to 5.1. Patient had a temp of 101 this morning. Pro-calcitonin 0.68, suggesting for underlying pneumonia though pulmonary is not convinced if patient has pneumonia. We will get infectious disease consulted to look for any other source of infection. CT abdomen ordered as patient complains of significant tenderness of the abdomen. Has history of cholecystectomy. Bilirubin elevated. Continue antibiotics for now. Iron profile ordered to look for iron deficiency in the be a possible EPO with dialysis MWF. May be discharged in next 24 hours
[2018-06-05 12:25] LABS: Glucose,Whole Blood 111 mg/dL (75-99)
[2018-06-05] MEDS: MORPHINE SULFATE ER 30 MG TABLET PO SCH ×2 (12:27→21:44)
[2018-06-05] MEDS: IOPAMIDOL-300 CONTRAST 30 ML VIAL (ORAL USE) PO PRN ×2 (13:33→14:36)
[2018-06-05] MEDS: amLODIPine 5 MG TAB PO SCH ×2 (14:00→21:35)
[2018-06-05] MEDS: METOPROLOL TARTRATE 50 MG TAB PO SCH ×2 (14:02→21:33)
[2018-06-05] MEDS: hydrALAZINE HCL 50 MG TAB PO SCH ×3 (14:02→21:35)
[2018-06-05] MEDS: BUMETANIDE 1 MG TAB PO SCH ×2 (14:05→21:34)
[2018-06-05] MEDS: DILTIAZEM CD 180 MG CAP.ER.24H PO SCH (14:08)
[2018-06-05] MEDS: ISOSORBIDE MONONITRATE ER 30 MG TAB.ER.24H PO SCH (14:09)
--- NOTE | 2018-06-05 14:09 | P.PN ---
Subjective Progress Note Date: 06/05/18 Principal diagnosis: Shortness of breath secondary to pulmonary edema, fluid overload, possible underlying pneumonia. This is a 57-year-old white male with history of multiple medical problems including chronic renal failure, on hemodialysis. Patient is also known to history of coronary artery disease, previous PCI, stenting of RCA 3 stents total in 2013. History of hypertension, cardiovascular disease, type 2 diabetes , diabetic neuropathy, history of alcohol abuse with associated thrombocytopenia and splenomegaly, patient had previous history of metabolic encephalopathy treated in June of 2017, history of diastolic congestive heart failure, admitted this time with mostly symptoms of generalized weakness, confusion, and change in mental status. Patient has also been complaining of some shortness of breath, chest x-ray was suggestive of interstitial edema, his BNP level was elevated, troponin was also elevated, received Lasix in the ER, and there was a significant improvement in his overall pulmonary status patient apparently diuresed significantly although he doesn't usually make much urine since he is a renal failure patient. By the time I saw the patient on consultation, he had no active pulmonary symptoms whatsoever. Patient was relatively asymptomatic, no cough no wheezing no shortness of breath. However apparently when he was admitted there was a concern that the patient may have sepsis because his lactic acid was 1.7. And he was placed empirically on antibiotics for presumptive pneumonia, although the findings on the chest x-ray and the clinical findings are mostly findings of interstitial edema. Again I strongly doubt pneumonia. During my evaluation, the patient was basically asymptomatic. He had no chest pain no cough no wheezing no fever no chills no hemoptysis and no chest pain. Troponin was noted to be a bit higher compared to the morning troponin. His BNP level was over 17,600. Reevaluated today on 06/05/2018, patient is presently on dialysis, he had 1 dialysis done last night, he continues to feel much better. Denies any shortness of breath, no cough, no wheezing, no chest pain. However the patient spiked a temp last night, he had a temp of 101.1 and his temp now is 99.7. Patient is on room air, O2 saturations 97%, blood pressure is normal 132/79. Heart rate is 76. All labs were reviewed, he does not have leukocytosis, basic metabolic profile is normal BUN is 44 creatinine is 4.78. Reviewed the chest x- ray again, clearly consistent with interstitial edema. Remind il patient had a significantly elevated BNP level on admission. Objective - Vital Signs Vital signs: Vital Signs Temp 99.7 F H 06/05/18 12:00 Pulse 76 06/05/18 12:00 Resp 16 06/05/18 12:00 BP 132/79 06/05/18 12:00 Pulse Ox 97 06/05/18 12:00 Intake & Output 06/04/18 06/05/18 06/05/18 18:59 06:59 18:59 Intake Total 428 302 386 Output Total 2400 2200 Balance -1971 302 -1814 Weight 93.803 kg Intake: IV 260 Levofloxacin 500Mg-D5w 100 Pmx 500 mg In Dextrose/ Water 1 100ml.bag @ 100 mls/hr IVPB Q48H [facility] Rx#: [id number] Sodium Chloride 0.9% 1, 160 000 ml @ 20 mls/hr IV . Q24H [facility]ATH[facility] Rx#:[id number] Intake, IV Titration 50 Amount Piperacillin-Tazobactam 3 50 .375 gm In Dextrose/Water 1 50ml.bag @ 12.5 mls/hr IVPB Q12H NATH[facility] Rx#: [id number] Oral 118 302 386 Output: Urine 400 200 Other 1999 1999 Other: Voiding Method Urinal Urinal Urinal # Voids 0 0 # Bowel Movements 0 - Exam Physical Exam: Revealed a 57-year-old white male, very pleasant, in no form of distress, presently receiving hemodialysis. Head: Atraumatic, normocephalic, patient was noted to have some sterile dressing and gauze over his right ear and forehead mostly because of recent surgery for basal cell carcinoma/Mohs procedure. HEENT:[Neck is supple.] [No neck masses.] [No thyromegaly.] [No JVD.] PERRLA, EOMI, no icterus. Chest: [Crackles at the bases, no rhonchi, no wheezes, symmetrical chest expansion, no chest wall tenderness. Cardiac Exam: [Normal S1 and S2, no S3 gallop, 2/6 systolic murmur thought the precordium.] Abdomen: [Soft, nontender, no megaly, no rebound, no guarding, normal bowel sounds.] Extremities: [No clubbing, trace of bipedal edema, no cyanosis.], AV fistula noted in the left forearm. Neurological Exam: [No focal neurologic deficit.] Lymphatics: No lymphadenopathy Psychiatric: Normal mood, affect, and mental status examination. - Labs CBC & Chem 7: 06/05/18 06:11 06/05/18 06:11 Labs: Abnormal Lab Results - Last 24 Hours (Table) 06/04/18 06/04/18 06/04/18 Range/Units 09:00 15:03 15:13 RBC (4.30-5.90) m/uL Hgb (13.0-17.5) gm/dL Hct (39.0-53.0) % RDW (11.5-15.5) % Plt Count (150-450) k/uL Retic Count (0.5-2.0) % BUN (9-20) mg/dL Creatinine (0.66-1.25) mg/dL Glucose (74-99) mg/dL POC Glucose (mg/dL) 184 H (75-99) mg/dL Calcium (8.4-10.2) mg/dL Total Bilirubin (0.2-1.3) mg/dL CK-MB (CK-2) 5.4 H (0.0-2.4) ng/mL Troponin I 3.560 H* (0.000-0.034) ng/mL Total Protein (6.3-8.2) g/dL Albumin (3.5-5.0) g/dL Procalcitonin 0.62 H (0.02-0.09) ng/mL 06/04/18 06/04/18 06/04/18 Range/Units 16:30 20:26 20:38 RBC (4.30-5.90) m/uL Hgb (13.0-17.5) gm/dL Hct (39.0-53.0) % RDW (11.5-15.5) % Plt Count (150-450) k/uL Retic Count (0.5-2.0) % BUN (9-20) mg/dL Creatinine (0.66-1.25) mg/dL Glucose (74-99) mg/dL POC Glucose (mg/dL) 231 H 167 H (75-99) mg/dL Calcium (8.4-10.2) mg/dL Total Bilirubin (0.2-1.3) mg/dL CK-MB (CK-2) (0.0-2.4) ng/mL Troponin I 3.810 H* (0.000-0.034) ng/mL Total Protein (6.3-8.2) g/dL Albumin (3.5-5.0) g/dL Procalcitonin (0.02-0.09) ng/mL 06/05/18 06/05/18 06/05/18 Range/Units 06:11 06:11 06:11 RBC 2.21 L (4.30-5.90) m/uL Hgb 7.6 L D (13.0-17.5) gm/dL Hct 21.7 L (39.0-53.0) % RDW 15.6 H (11.5-15.5) % Plt Count 39 L (150-450) k/uL Retic Count 2.1 H (0.5-2.0) % BUN 44 H (9-20) mg/dL Creatinine 4.78 H (0.66-1.25) mg/dL Glucose 110 H (74-99) mg/dL POC Glucose (mg/dL) (75-99) mg/dL Calcium 7.9 L (8.4-10.2) mg/dL Total Bilirubin 1.9 H (0.2-1.3) mg/dL CK-MB (CK-2) (0.0-2.4) ng/mL Troponin I (0.000-0.034) ng/mL Total Protein 5.3 L (6.3-8.2) g/dL Albumin 2.8 L (3.5-5.0) g/dL Procalcitonin (0.02-0.09) ng/mL 06/05/18 06/05/18 Range/Units 06:15 11:56 RBC (4.30-5.90) m/uL Hgb (13.0-17.5) gm/dL Hct (39.0-53.0) % RDW (11.5-15.5) % Plt Count (150-450) k/uL Retic Count (0.5-2.0) % BUN (9-20) mg/dL Creatinine (0.66-1.25) mg/dL Glucose (74-99) mg/dL POC Glucose (mg/dL) 123 H 111 H (75-99) mg/dL Calcium (8.4-10.2) mg/dL Total Bilirubin (0.2-1.3) mg/dL CK-MB (CK-2) (0.0-2.4) ng/mL Troponin I (0.000-0.034) ng/mL Total Protein (6.3-8.2) g/dL Albumin (3.5-5.0) g/dL Procalcitonin (0.02-0.09) ng/mL Microbiology - Last 24 Hours (Table) 06/04/18 02:00 Urine Culture - Final Urine,Voided 06/04/18 01:10 Blood Culture - Preliminary Blood No Growth after 24 hours Assessment and Plan Assessment: Impression: 1 acute pulmonary edema, most likely secondary to fluid overload secondary to chronic renal failure, and possible component diastolic dysfunction. Echocardiogram is pending. To rule out systolic dysfunction. 2 possibility of pneumonia is not entirely ruled out, this is mostly based on the fact that the patient did spike a fever last night, but clinically the patient had no symptoms to suggest pneumonia. And there is no evidence of leukocytosis. Hence I would recommend that we continue the antibiotics empirically anyway. 3 acute presentation of metabolic encephalopathy resolved by the time I evaluated the patient. 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 8 end-stage renal disease, on hemodialysis. 9 type 2 diabetes 10 hyperkalemia secondary to renal failure, patient apparently has been noncompliant with dialysis. Nephrology is following. Recommendation: Continue hemodialysis, continue empiric antibiotics, check cultures including urine blood and sputum if possible. Awaiting the final report on his pro-calcitonin Time with Patient: Less than 30
[2018-06-05] MEDS: PREGABALIN 50 MG CAP PO SCH ×2 (14:11→21:45)
--- NOTE | 2018-06-05 15:45 | CT ---
EXAMINATION TYPE: CT abdomen pelvis wo con DATE OF EXAM: 06/05/2018 HISTORY: Colitis, increased bilirubin, abdominal tenderness. CT DLP: 1005 mGycm. Automated Exposure Control for Dose Reduction was Utilized. TECHNIQUE: CT scan of the abdomen and pelvis is performed with oral but without IV contrast. COMPARISON: NONE FINDINGS: Within the limitations of a non-contrast study, the following observations are made. LUNG BASES: There is small right pleural effusion. There is associated right basilar compressive atel ectasis. There is suspected coronary stent in the RCA distribution. LIVER/GB: Cholecystectomy clips are present. Two adjacent small calcifications centrally in liver dionna r coronal image 43 could reflect intrahepatic biliary calculi or parenchymal calcifications. No suspi cious intrahepatic or extrahepatic dilatation is noted however. Liver is lower limits of normal in si ze. PANCREAS: No significant abnormality is seen. SPLEEN: Splenomegaly is present occupying significant portion of left abdomen measuring 18.0 cm long axis axial image 29. ADRENALS: No significant abnormality is seen. KIDNEYS: No renal calculi or hydronephrosis is seen bilaterally. Some cortical thinning is present in both kidneys is present. BOWEL: The oral contrast does not reach colonic level making evaluation of distal bowel slightly subo ptimal. There is no suspicious small or large bowel dilatation. GENITAL ORGANS: No gross abnormality seen. LYMPH NODES: No greater than 1cm abdominal or pelvic lymph nodes are appreciated. OSSEOUS STRUCTURES: Moderate axial joint space loss and spurring of both hips is present. OTHER: There is moderate calcified plaque of aorta extending into branch vessels. There is trace flui d left infracolic gutter upper pelvis axial image 64 uncertain etiology. There are prominent collater al vessels in the upper to midabdomen of uncertain etiology IMPRESSION: 1. Splenomegaly is seen which may warrant further clinical workup. No suspicious intrahepatic mass or ductal dilatation is seen. 2. Prominent collateral vessels upper to midabdomen most prominent left of midline of uncertain etiol ogy. 3. Small right pleural effusion.
[2018-06-05] MEDS: LISINOPRIL 20 MG TAB PO SCH ×2 (16:09→21:35)
--- NOTE | 2018-06-05 16:11 | P.PN ---
Subjective Progress Note Date: 06/05/18 This is a pleasant 57-year-old gentleman with history of end-stage renal disease on hemodialysis, hypertension, insulin requiring diabetes, CAD with prior stenting. He follows with a salvager out of [facility]. He presented to the hospital primary complaining of not feeling well overall mild confusion and fever. We were asked to the patient in consultation due to elevated troponin with initial troponin of 0.651 second troponin 2.6 and third troponin 3.5. Patient remains febrile with a temperature max of 101.1F this morning. Hemoglobin is low at 7.6 and platelet count is only 39+ heparin has been avoided. Started the patient on oral nitrates yesterday. Echocardiogram with Doppler came back to show an ejection fraction of 30-35% with anterior septal, inferior and septal hypokinesis. Upon examination today, patient is resting comfortably in bed. Overall says he's feeling quite a bit better from yesterday. Labs today showed an improved potassium of 5.1 with a B1 of 44 and creatinine of 4.78. Objective - Vital Signs Vital signs: Vital Signs Temp 99.7 F H 06/05/18 12:00 Pulse 76 06/05/18 12:00 Resp 16 06/05/18 12:00 BP 136/62 06/05/18 14:06 Pulse Ox 97 06/05/18 12:00 Intake & Output 06/04/18 06/05/18 06/05/18 18:59 06:59 18:59 Intake Total 428 302 586 Output Total 2400 2200 Balance -1972 302 -1614 Weight 93.803 kg Intake: IV 260 Levofloxacin 500Mg-D5w 100 Pmx 500 mg In Dextrose/ Water 1 100ml.bag @ 100 mls/hr IVPB Q48H NATHAN Rx#: [id number] Sodium Chloride 0.9% 1, 160 000 ml @ 20 mls/hr IV . Q24H NATHAN Rx#:[id number] Intake, IV Titration 50 Amount Piperacillin-Tazobactam 3 50 .375 gm In Dextrose/Water 1 50ml.bag @ 12.5 mls/hr IVPB Q12H NATHAN Rx#: [id number] Oral 118 302 586 Output: Urine 400 200 Other 1999 1999 Other: Voiding Method Urinal Urinal Urinal # Voids 0 0 # Bowel Movements 0 - Exam PHYSICAL EXAMINATION: HEENT: Head is atraumatic, normocephalic. Pupils equal, round. Neck is supple. There is no elevated jugular venous pressure. HEART EXAMINATION: Heart sounds regular, S1 and S2 normal. No murmur or gallop heard. CHEST EXAMINATION: Lungs are clear to auscultation and precussion. No chest wall tenderness is noted on palpation or with deep breathing. ABDOMEN: Soft, nontender. Bowel sounds are heard. No organomegaly noted. EXTREMITIES: 2+ peripheral pulses with no evidence of peripheral edema and no calf tenderness noted. Left upper arm AV fistula noted. NEUROLOGIC patient is awake, alert and oriented x2-3. . - Labs CBC & Chem 7: 06/05/18 06:11 06/05/18 06:11 Labs: Abnormal Lab Results - Last 24 Hours (Table) 06/04/18 06/04/18 06/04/18 Range/Units 09:00 16:30 20:26 RBC (4.30-5.90) m/uL Hgb (13.0-17.5) gm/dL Hct (39.0-53.0) % RDW (11.5-15.5) % Plt Count (150-450) k/uL Retic Count (0.5-2.0) % BUN (9-20) mg/dL Creatinine (0.66-1.25) mg/dL Glucose (74-99) mg/dL POC Glucose (mg/dL) 231 H (75-99) mg/dL Calcium (8.4-10.2) mg/dL Total Bilirubin (0.2-1.3) mg/dL Troponin I 3.810 H* (0.000-0.034) ng/mL Total Protein (6.3-8.2) g/dL Albumin (3.5-5.0) g/dL Procalcitonin 0.62 H (0.02-0.09) ng/mL 06/04/18 06/05/18 06/05/18 Range/Units 20:38 06:11 06:11 RBC 2.21 L (4.30-5.90) m/uL Hgb 7.6 L D (13.0-17.5) gm/dL Hct 21.7 L (39.0-53.0) % RDW 15.6 H (11.5-15.5) % Plt Count 39 L (150-450) k/uL Retic Count (0.5-2.0) % BUN 44 H (9-20) mg/dL Creatinine 4.78 H (0.66-1.25) mg/dL Glucose 110 H (74-99) mg/dL POC Glucose (mg/dL) 167 H (75-99) mg/dL Calcium 7.9 L (8.4-10.2) mg/dL Total Bilirubin 1.9 H (0.2-1.3) mg/dL Troponin I (0.000-0.034) ng/mL Total Protein 5.3 L (6.3-8.2) g/dL Albumin 2.8 L (3.5-5.0) g/dL Procalcitonin (0.02-0.09) ng/mL 06/05/18 06/05/18 06/05/18 Range/Units 06:11 06:15 11:56 RBC (4.30-5.90) m/uL Hgb (13.0-17.5) gm/dL Hct (39.0-53.0) % RDW (11.5-15.5) % Plt Count (150-450) k/uL Retic Count 2.1 H (0.5-2.0) % BUN (9-20) mg/dL Creatinine (0.66-1.25) mg/dL Glucose (74-99) mg/dL POC Glucose (mg/dL) 123 H 111 H (75-99) mg/dL Calcium (8.4-10.2) mg/dL Total Bilirubin (0.2-1.3) mg/dL Troponin I (0.000-0.034) ng/mL Total Protein (6.3-8.2) g/dL Albumin (3.5-5.0) g/dL Procalcitonin (0.02-0.09) ng/mL Microbiology - Last 24 Hours (Table) 06/04/18 02:00 Urine Culture - Final Urine,Voided 06/04/18 01:10 Blood Culture - Preliminary Blood No Growth after 24 hours Assessment and Plan Assessment: #1 non-ST elevation myocardial infarction #2 fever, etiology unclear currently on IV antibiotics #3 hypertension #4 diabetes #5 end-stage renal disease on hemodialysis #6 history of CAD with prior stenting of the RCA by Dr. Ibarra in 2014, subsequent cardiac catheterization details are unknown Plan: From cardiology perspective, we will maximize medical therapy for now. Once acute febrile illness is resolved patient may require cardiac catheterization in the future. We'll continue to follow the patient and provide further recommendations accordingly. PICK PULLING MACHINE TENDER note has been reviewed, I agree with a documented findings and plan of care. Patient was seen and examined.
[2018-06-05 16:44] LABS: Glucose,Whole Blood 128 mg/dL (75-99)
[2018-06-05] MEDS: DARBEPOETIN ALFA 60 MCG/0.3 ML SYRINGE SQ SCH (16:49)
[2018-06-05 17:44] LABS: Hepatitis B Surface AB- Quant 3.5 mIU/mL
[2018-06-05 17:53] LABS: Iron Saturation 22.41 (15.00-50.00)
--- NOTE | 2018-06-05 18:54 | PN ---
PROGRESS NOTE Patient is seen for followup for end-stage renal disease. He states he is feeling much better. The patient was admitted to the hospital with complaints of weakness, not feeling well. He was found to be hyperkalemic and fluid overloaded. He did not miss his dialysis. There is concern for possible pneumonia as well. PHYSICAL EXAMINATION: On examination today, patient is comfortable, awake, alert, oriented x3. He is not in any acute distress. Blood pressure 132/79, heart rate 76 per minute. He is afebrile. Examination of the heart: S1, S2. Examination of the lungs: Bilateral breath sounds are heard. Abdomen is soft, nontender. Examination lower extremity shows trace edema bilaterally. FRAME OPENER exam is grossly intact. LABS: Shows sodium 141, potassium 5.1, chloride 104, BUN 44, serum creatinine 4.78, hemoglobin 7.6 g/dL. ASSESSMENT: 1. End-stage renal disease, on hemodialysis on a Friday, Friday, Friday schedule. The patient will be dialyzed today. 2. Pneumonia maintained on antibiotics. Legionella titer is pending. Overall patient is feeling better. 3. CKD mineral bone disorder maintained on PhosLo. 4. Hypertension currently controlled. 5. Anemia. No active bleeding noted. Hemoglobin of 7.6 is much lower than his usual. Yesterday he was 9.8 g/dL. We will start him on Aranesp. 6. Elevated troponin, being followed by Cardiology. Troponin is up to 3.8, which is heading up. PLAN: Hemodialysis today. Check iron studies. Start Aranesp. Okay to proceed with cardiac catheterization if indicated from Cardiology standpoint. MMODL / IJN: [id number] /
[2018-06-05 20:38] LABS: Glucose,Whole Blood 188 mg/dL (75-99)
[2018-06-05] MEDS: ATORVASTATIN 80 MG TAB PO SCH (21:34)
[2018-06-05] MEDS: ALPRAZolam 0.25 MG TAB PO PRN (21:45)
--- NOTE | 2018-06-05 22:29 | P.CONS ---
History of Present Illness - Reason for Consult Consult date: 06/05/18 - Chief Complaint ental status change - History of Present Illness 57 year old male who presentsTo the emergency center with complaints of altered mental status. He has a very protracted past medical history regarding his underlying coronary artery disease, status post DE and PCI, diabetes mellitus type 2 with many complications that include his end-stage renal disease on hemodialysis locally. The patient has been admitted within the last year that point in time those concerns to sepsis but no specific infection was found. The patient is now presenting to the emergency center with some altered mental status feeling poorly and having developed a fever. The patient at presentation was somewhat of a poor historian he is now much more awake alert and interactive. He does relate that he feels poorly he has fatigue and malaise. He did well with dialysis today and this is allowed some further improvement of his shortness of breath that was also occurring. Is noted he had fever at admission but was not having sieving and chills or rigors but again was having some altered mental status. Review of Systems HEENT:Denies headache or acute visual change. Denies sinus or mouth discomforts. Denies neck stiffness or pain. Denies significant oral cavity pain. Denies difficulty on swallowing. Lungs: Denies significant shortness of breath, cough, sputum production, or hemoptysis. Cardiovascular: Denies significant shortness of breath, chest pain, chest wall pain, orthopnea, dyspnea on exertion, syncope Gastrointestinal:Denies nausea, vomiting, diarrhea, constipation, hematemesis, melena, hematochezia. No no significant change of bowel habit noticed. Musculoskeletal: denies significant myalgias or arthralgias. No new joint swelling. Denies new back pain. Skin: Denies new rash or lesions. No new ulcers or wounds are related.. Neuro: Confusion at admission but without hallucination Psychiatric:Denies anxiety or depression. Endocrine: Chronic fatigue weight is maintained by his hemodialysis Past Medical History Past Medical History: Coronary Artery Disease (CAD), Chest Pain / Angina, COPD, CVA/TIA, Diabetes Mellitus, GERD/Reflux, Hyperlipidemia, Hypertension, Liver Disease, Osteoarthritis (OA), Renal Disease, Respiratory Disorder, Sleep Apnea/ CPAP/BIPAP Additional Past Medical History / Comment(s): Hx pancreatitis due to heavy alcohol use - no alcohol use in over 6 yrs, fatty liver, uses cpap, varicose veins bilaterally, chronic kidney disease due to diabetes on hemodialysis 3 times a week with last time being 06/01/18, , last received hemodialysis 06/01/18 , chronic low platelets and usually needs platelets prior to surgical procedures, past peritoneal dialysis catheter being removed because was not functioning properly, CVA with R sided numbess, ARDS, past respiratory arrest/ intubated and trached, past metabolic encephalopathy 2ndary to ESRD, thrombocytopenia d/t splenomegally, chronic back and cervical pain, cervical DDD with surgery/plate. History of Any Multi-Drug Resistant Organisms: None Reported Past Surgical History: Appendectomy, Back Surgery, Cholecystectomy, Heart Catheterization, Heart Catheterization With Stent Additional Past Surgical History / Comment(s): PCI with stents, tracheostomy, bladder stone removal, anterior cervical disc fusion/plate, dialysis catheter insertion 12/27/16 since removed, jugular catheter insertion, colonoscopy. Past Anesthesia/Blood Transfusion Reactions: No Reported Reaction Date of Last Stent Placement:: 2013 Smoking Status: Former smoker - Past Family History Father Family Medical History: Coronary Artery Disease (CAD), Myocardial Infarction (DE ) Additional Family Medical History / Comment(s): Father of a DE at the age of 65yrs. Mother Family Medical History: Coronary Artery Disease (CAD), Myocardial Infarction (DE ) Additional Family Medical History / Comment(s): Mother of a DE at the age of 55yrs. Brother(s) Family Medical History: Cancer Daughter(s) Family Medical History: Vascular Disorder (VSD) Medications and Allergies Home Medications and Allergies Comment(s): Current Medications Acetaminophen (Tylenol Tab) 650 mg PO Q6HR PRN PRN Reason: Fever and/ or Pain Last Admin: 06/05/18 08:19 Dose: 650 mg Hydrocodone Bitart/Acetaminophen ([place] 10) 1 each PO TID PRN PRN Reason: Pain Last Admin: 06/04/18 14:17 Dose: 1 each Albuterol/Ipratropium (Duoneb 0.5 Mg-3 Mg/3 Ml Soln) 3 ml INHALATION RT-QID PRN PRN Reason: sob Alprazolam (Xanax) 0.25 mg PO BID PRN PRN Reason: Anxiety Last Admin: 06/05/18 21:45 Dose: 0.25 mg Amlodipine Besylate (Norvasc) 5 mg PO BID NATHAN Last Admin: 06/05/18 21:35 Dose: 5 mg Aripiprazole (Abilify) 5 mg PO DAILY [facility] Last Admin: 06/05/18 08:15 Dose: 5 mg Atorvastatin Calcium (Lipitor) 80 mg PO HS [facility] Last Admin: 06/05/18 21:34 Dose: 80 mg Bumetanide (Bumex) 2 mg PO HS [facility] Last Admin: 06/05/18 21:34 Dose: 2 mg Bumetanide (Bumex) 4 mg PO DAILY [facility] Last Admin: 06/05/18 14:05 Dose: Not Given Calcium Acetate (Phoslo) 1,334 mg PO TID-W/MEALS [facility] Last Admin: 06/05/18 17:33 Dose: 1,334 mg Cholecalciferol (Vitamin D3) 2,000 unit PO DAILY [facility] Last Admin: 06/05/18 08:14 Dose: 2,000 unit Darbepoetin Hever (Aranesp) 60 mcg SQ Q7D [facility] Last Admin: 06/05/18 16:49 Dose: 60 mcg Diltiazem HCl (Cardizem Cd) 180 mg PO DAILY [facility] Last Admin: 06/05/18 14:08 Dose: 180 mg Famotidine (Pepcid) 20 mg PO DAILY [facility] Last Admin: 06/05/18 08:14 Dose: 20 mg Guaifenesin (Mucinex) 600 mg PO Q12HR [facility] Last Admin: 06/05/18 21:34 Dose: 600 mg Hydralazine HCl (Apresoline) 50 mg PO TID [facility] Last Admin: 06/05/18 21:35 Dose: 50 mg Sodium Chloride (Saline 0.9%) 1,000 mls @ 20 mls/hr IV .Q24H [facility] Last Admin: 06/05/18 04:36 Dose: 20 mls/hr Levofloxacin 500 mg/ IV (Solution) 100 mls @ 100 mls/hr IVPB Q48H [facility] Piperacillin/Tazobactam/ (Dextrose 3.375 gm/ IV Solution) 50 mls @ 12.5 mls/hr IVPB Q12H [facility] Last Admin: 06/05/18 15:56 Dose: 12.5 mls/hr Insulin Aspart (Novolog) 9 unit SQ AC-TID [facility] Last Admin: 06/05/18 17:33 Dose: 9 unit Insulin Detemir (Levemir) 27 unit SQ DAILY [facility] Last Admin: 06/05/18 08:20 Dose: 27 unit Isosorbide Mononitrate (Imdur) 30 mg PO DAILY [facility] Last Admin: 06/05/18 14:09 Dose: 30 mg Lisinopril (Zestril) 20 mg PO BID [facility] Last Admin: 06/05/18 21:35 Dose: 20 mg Metoprolol Tartrate (Lopressor) 150 mg PO BID [facility] Last Admin: 06/05/18 21:33 Dose: 150 mg Miscellaneous Information (Pharmacy To Dose Iv Vancomycin) 1 each MISCELLANE DIRECTED PRN PRN Reason: Per Protocol Miscellaneous Information (Pneumonia Protocol Utilized) 1 each PO ONCE PRN PRN Reason: Per Protocol Morphine Sulfate (Morphine Sulfate (Inj)) 2 mg IVP Q6H PRN PRN Reason: Pain Morphine Sulfate (Ms Contin) 30 mg PO Q12HR [facility] Last Admin: 06/05/18 21:44 Dose: 30 mg Nitroglycerin (Nitrostat) 0.4 mg SUBLINGUAL Q5M PRN PRN Reason: Chest Pain Ondansetron HCl (Zofran) 4 mg IVP Q6HR PRN PRN Reason: Nausea And Vomiting Pantoprazole Sodium (Protonix) 40 mg PO AC-BRKFST [facility] Last Admin: 06/05/18 06:27 Dose: 40 mg Pregabalin (Lyrica) 50 mg PO BID [facility] Last Admin: 06/05/18 21:45 Dose: 50 mg Spironolactone (Aldactone) 50 mg PO DAILY [facility] Last Admin: 06/05/18 08:16 Dose: Not Given Home Medications Medication Instructions Recorded Confirmed Type Atorvastatin Calcium [Lipitor] 80 mg PO HS #30 tab 03/01/14 06/04/18 Rx Nitroglycerin Sl Tabs [Nitrostat] 0.4 mg SUBLINGUAL Q5M PRN 06/01/17 06/04/18 History Lisinopril [Zestril] 20 mg PO BID #60 tab 06/03/17 06/04/18 Rx ARIPiprazole [Abilify] 5 mg PO DAILY 07/06/17 06/04/18 History Calcium Acetate [PhosLo] 1,334 mg PO TID-W/MEALS #90 cap 07/10/17 06/04/18 Rx ALPRAZolam [Xanax] 0.25 mg PO BID PRN 06/04/18 06/04/18 History Amoxicillin 500 mg PO TID 06/04/18 06/04/18 History Bumetanide [BUMEX] 2 mg PO HS 06/04/18 06/04/18 History Bumetanide [BUMEX] 4 mg PO DAILY 06/04/18 06/04/18 History Diltiazem HCl [Diltiazem 24Hr ER] 180 mg PO DAILY 06/04/18 06/04/18 History HYDROcodone/APAP 10-325MG [[place] 1 tab PO Q4HR PRN 06/04/18 06/04/18 History 10-325] Insulin Glargine,Hum.rec.anlog 20 unit SQ DAILY 06/04/18 06/04/18 History [Basaglar Kwikpen U-100] Insulin NPH Hum/Reg Insulin Hm 20 unit SQ AC-TID 06/04/18 06/04/18 History [NovoLIN 70-30 100 UNIT/ML VIAL] Metoprolol Tartrate [Lopressor] 150 mg PO BID 06/04/18 06/04/18 History Morphine Sulfate ER [Ms Contin] 30 mg PO Q12HR 06/04/18 06/04/18 History Omeprazole 20 mg PO DAILY 06/04/18 06/04/18 History Pregabalin [Lyrica] 50 mg PO BID 06/04/18 06/04/18 History Allergies Allergy/AdvReac Type Severity Reaction Status Date / Time No Known Allergies Allergy Verified 06/04/18 09:30 Physical Exam Vitals: Vital Signs Temp Pulse Resp BP Pulse Ox 06/05/18 20:00 98.6 F 84 20 147/66 96 06/05/18 16:00 98.2 F 80 16 126/59 93 L 06/05/18 14:06 136/62 06/05/18 12:00 99.7 F H 76 16 132/79 97 06/05/18 08:10 101.1 F H 82 16 124/58 96 06/05/18 04:00 99.3 F 71 16 121/58 98 06/05/18 00:00 97.7 F 79 20 117/53 95 06/04/18 23:33 20 Intake and Output 10/12/18 10/12/18 10/12/18 06:59 14:59 22:59 Intake Total 80 586 240 Output Total 2200 Balance 80 -1614 240 Intake: Oral 80 586 240 Output: Urine 200 Other 2000 Other: Voiding Method Urinal Urinal Urinal # Voids 0 0 1 # Bowel Movements 0 Weight 93.803 kg 57-year-old male presents to hospital with altered mental status feeling somewhat better today especially after his dialysis. HEENT: Anicteric conjunctiva are pink and moist nasal mucosa grossly intact without significant lesions, there is no thrush. Neck: The neck is supple without significant lymphadenopathy or thyromegaly. Lungs: Symmetrical air entry is noted, scattered expiratory wheezes and few bibasilar crackles are heard no alon bronchial sounds no dullness or egophony Heart: Regular rate and rhythm with an audible S1-S2, no S3 loud S4 There is no significant murmur click or rub, PMI was nondisplaced. Abdomen: Positive bowel sounds soft and nontender without palpable masses or organomegaly. There was no guarding or rebound. Extremities: The upper extremities have excellent pulses they are symmetric, no significant petechiae or telangiectasia. No splinter hemorrhages were noted. Lower extremities have evidence of the chronic bilateral lower extremity edema in the chronic hemosiderin staining the bilateral legs. Patient had a biopsy to the right medial leg and has a chronic nonhealing ulceration at that site. It is not tender there is no drainage. Neuro: Awake alert oriented to person place and time. There are no acute new gross focal sensory motor deficits. Results CBC & Chem 7: 06/05/18 06:11 06/05/18 06:11 Labs: Abnormal Lab Results - Last 24 Hours (Table) 06/05/18 06/05/18 06/05/18 Range/Units 06:11 06:11 06:11 RBC 2.21 L (4.30-5.90) m/uL Hgb 7.6 L D (13.0-17.5) gm/dL Hct 21.7 L (39.0-53.0) % RDW 15.6 H (11.5-15.5) % Plt Count 39 L (150-450) k/uL Retic Count 2.1 H (0.5-2.0) % BUN 44 H (9-20) mg/dL Creatinine 4.78 H (0.66-1.25) mg/dL Glucose 110 H (74-99) mg/dL POC Glucose (mg/dL) (75-99) mg/dL Calcium 7.9 L (8.4-10.2) mg/dL Iron (65-175) ug/dL TIBC (228-460) ug/dL Ferritin (22.0-322.0) ng/mL Total Bilirubin 1.9 H (0.2-1.3) mg/dL Total Protein 5.3 L (6.3-8.2) g/dL Albumin 2.8 L (3.5-5.0) g/dL 06/05/18 06/05/18 06/05/18 Range/Units 06:11 06:15 11:56 RBC (4.30-5.90) m/uL Hgb (13.0-17.5) gm/dL Hct (39.0-53.0) % RDW (11.5-15.5) % Plt Count (150-450) k/uL Retic Count (0.5-2.0) % BUN (9-20) mg/dL Creatinine (0.66-1.25) mg/dL Glucose (74-99) mg/dL POC Glucose (mg/dL) 123 H 111 H (75-99) mg/dL Calcium (8.4-10.2) mg/dL Iron 39 L (65-175) ug/dL TIBC 174 L (228-460) ug/dL Ferritin 648.9 H (22.0-322.0) ng/mL Total Bilirubin (0.2-1.3) mg/dL Total Protein (6.3-8.2) g/dL Albumin (3.5-5.0) g/dL 06/05/18 06/05/18 Range/Units 16:31 20:36 RBC (4.30-5.90) m/uL Hgb (13.0-17.5) gm/dL Hct (39.0-53.0) % RDW (11.5-15.5) % Plt Count (150-450) k/uL Retic Count (0.5-2.0) % BUN (9-20) mg/dL Creatinine (0.66-1.25) mg/dL Glucose (74-99) mg/dL POC Glucose (mg/dL) 128 H 188 H (75-99) mg/dL Calcium (8.4-10.2) mg/dL Iron (65-175) ug/dL TIBC (228-460) ug/dL Ferritin (22.0-322.0) ng/mL Total Bilirubin (0.2-1.3) mg/dL Total Protein (6.3-8.2) g/dL Albumin (3.5-5.0) g/dL Microbiology - Last 24 Hours (Table) 06/04/18 02:00 Urine Culture - Final Urine,Voided 06/04/18 01:10 Blood Culture - Preliminary Blood No Growth after 24 hours Laboratory Results WBC 4.1 k/uL (3.8-10.6) 06/05/18 06:11 RBC 2.21 m/uL (4.30-5.90) L 06/05/18 06:11 Hgb 7.6 gm/dL (13.0-17.5) L D 06/05/18 06:11 Hct 21.7 % (39.0-53.0) L 06/05/18 06:11 MCV 98.0 fL (80.0-100.0) 06/05/18 06:11 MCH 34.3 pg (25.0-35.0) 06/05/18 06:11 MCHC 35.0 g/dL (31.0-37.0) 06/05/18 06:11 RDW 15.6 % (11.5-15.5) H 06/05/18 06:11 Plt Count 39 k/uL (150-450) L 06/05/18 06:11 Neutrophils % 67 % 06/05/18 06:11 Lymphocytes % 24 % 06/05/18 06:11 Monocytes % 6 % 06/05/18 06:11 Eosinophils % 2 % 06/05/18 06:11 Basophils % 0 % 06/05/18 06:11 Neutrophils # 2.7 k/uL (1.3-7.7) 06/05/18 06:11 Lymphocytes # 1.0 k/uL (1.0-4.8) 06/05/18 06:11 Monocytes # 0.2 k/uL (0-1.0) 06/05/18 06:11 Eosinophils # 0.1 k/uL (0-0.7) 06/05/18 06:11 Basophils # 0.0 k/uL (0-0.2) 06/05/18 06:11 Manual Slide Review Performed 06/04/18 02:00 Poikilocytosis Slight 06/05/18 06:11 Retic Count 2.1 % (0.5-2.0) H 06/05/18 06:11 PT 10.8 sec (9.0-12.0) 06/04/18 01:10 INR 1.1 (<1.2) 06/04/18 01:10 APTT 22.8 sec (22.0-30.0) 06/04/18 01:10 Sodium 141 mmol/L (137-145) 06/05/18 06:11 Potassium 5.1 mmol/L (3.5-5.1) 06/05/18 06:11 Chloride 104 mmol/L (98-107) 06/05/18 06:11 Carbon Dioxide 28 mmol/L (22-30) 06/05/18 06:11 Anion Gap 9 mmol/L 06/05/18 06:11 BUN 44 mg/dL (9-20) H 06/05/18 06:11 Creatinine 4.78 mg/dL (0.66-1.25) H 06/05/18 06:11 Est GFR (CKD-EPI)AfAm 14 (>60 ml/min/1.73 sqM) 06/05/18 06:11 Est GFR (CKD-EPI)NonAf 12 (>60 ml/min/1.73 sqM) 06/05/18 06:11 Glucose 110 mg/dL (74-99) H 06/05/18 06:11 POC Glucose (mg/dL) 188 mg/dL (75-99) H 06/05/18 20:36 POC Glu Undercoater ID Aggie Beltrán 06/05/18 20:[address] Glu mg/dL 91 06/04/18 09:00 Hemoglobin A1c 4.8 % (4.0-6.0) 06/04/18 09:00 Plasma Lactic Acid [place] 2.0 mmol/L (0.7-2.0) 06/04/18 09:00 Calcium 7.9 mg/dL (8.4-10.2) L 06/05/18 06:11 Magnesium 1.8 mg/dL (1.6-2.3) 06/04/18 09:00 Iron 39 ug/dL (65-175) L 06/05/18 06:11 TIBC 174 ug/dL (228-460) L 06/05/18 06:11 Iron Saturation 22.41 (15.00-50.00) 06/05/18 06:11 Ferritin 648.9 ng/mL (22.0-322.0) H 06/05/18 06:11 Total Bilirubin 1.9 mg/dL (0.2-1.3) H 06/05/18 06:11 AST 22 U/L (17-59) 06/05/18 06:11 ALT 28 U/L (21-72) 06/05/18 06:11 Alkaline Phosphatase 48 U/L (38-126) 06/05/18 06:11 Total Creatine Kinase 70 U/L (55-170) 06/04/18 15:03 CK-MB (CK-2) 5.4 ng/mL (0.0-2.4) H 06/04/18 15:03 CK-MB (CK-2) Rel Index 7.7 06/04/18 15:03 Troponin I 3.810 ng/mL (0.000-0.034) H* 06/04/18 20:26 NT-Pro-B Natriuret Pep 76260 pg/mL 06/04/18 09:00 Total Protein 5.3 g/dL (6.3-8.2) L 06/05/18 06:11 Albumin 2.8 g/dL (3.5-5.0) L 06/05/18 06:11 Procalcitonin 0.62 ng/mL (0.02-0.09) H 06/04/18 09:00 TSH 1.310 mIU/L (0.465-4.680) 06/04/18 09:00 Urine Color Yellow 06/04/18 02:00 Urine Appearance Clear (Clear) 06/04/18 02:00 Urine pH 8.0 (5.0-8.0) 06/04/18 02:00 Ur Specific [place] 1.008 (1.001-1.035) 06/04/18 02:00 Urine Protein 3+ (Negative) H 06/04/18 02:00 Urine Glucose (UA) 3+ (Negative) H 06/04/18 02:00 Urine Ketones Negative (Negative) 06/04/18 02:00 Urine Blood Small (Negative) H 06/04/18 02:00 Urine Nitrite Negative (Negative) 06/04/18 02:00 Urine Bilirubin Negative (Negative) 06/04/18 02:00 Urine Urobilinogen <2.0 mg/dL (<2.0) 06/04/18 02:00 Ur Leukocyte Esterase Negative (Negative) 06/04/18 02:00 Urine RBC 4 /hpf (0-5) 06/04/18 02:00 Urine WBC 1 /hpf (0-5) 06/04/18 02:00 Urine Mucus Rare /hpf (None) H 06/04/18 02:00 Hep Bs Antigen Non-Reactive (Non-Reactive) 06/05/18 06:11 Hep Bs Antibody Non-Reactive (Non-Reactive) 06/05/18 06:11 Hep Bs Antibody, Quant 3.5 mIU/mL 06/05/18 06:11 Influenza Type A RNA Not Detected (Not Detectd) 06/04/18 10:15 Influenza Type B (PCR) Not Detected (Not Detectd) 06/04/18 10:15 Mycoplasma pneumon IgG 0.63 INDEX (<=0.90) 06/04/18 09:00 Mycoplasma pneumon IgM 0.55 INDEX (<=0.90) 06/04/18 09:00 Microbiology 06/04/18 02:00 Urine,Voided Urine Culture - Final 06/04/18 01:10 Blood Blood Culture - Preliminary No Growth after 24 hours Assessment and Plan (1) Altered mental status Narrative/Plan: 57-year-old male presents as with altered mental status that feeling well for a few days. If presentation of the temperature of 103.1 he was admitted with concerns to sepsis. The patient has evidence of underlying lung disease and there was concerns to volume overload relating to his missed hemodialysis session. Since hemodialysis he is doing considerably better. His fevers have resolved. His mental status is near his baseline. His symptoms generalized weakness but there is no acute neurological change. He does have a cardiomyopathy with an ejection fraction of only 35%. His long-standing history of prior alcoholism with alcoholic liver disease with chronic thrombocytopenia. The patient has responded well to current course of antibiotic therapy includes vancomycin, Levaquin and Zosyn with concerns to underlying lung disease. If this time cultures are negative the fever has responded. The patient has been evaluated by pulmonary critical care and he does not appear to be evidence of pneumonia at this time. There is no evidence of any urinary infection. Blood cultures are negative. The patient does receive hemodialysis and there is a potential that there could have been difficulty related to his lack of hemodialysis treatment. Cultures shall be monitored. If remain negative would plan on a completion of 7 days of vancomycin which can be completed through dialysis with concerns to a transient infection related to that process. Current Visit: Yes Status: Acute Code(s): R41.82 - ALTERED MENTAL STATUS, UNSPECIFIED SNOMED Code(s): 690278709 (2) Fever Current Visit: Yes Status: Acute Code(s): R50.9 - FEVER, UNSPECIFIED SNOMED Code(s): 898306726
[2018-06-06] MEDS: PIPERACILLIN-TAZOBACTAM 3.375 GM in DEXTROSE/WATER 1 50ML.BAG IVPB SCH ×2 (00:47→15:21)
[2018-06-06] MEDS: SODIUM CHLORIDE 0.9% 1,000 ML IV SCH (03:30)
[2018-06-06] MEDS: LEVOFLOXACIN 500MG-D5W PMX 500 MG in DEXTROSE/WATER 1 100ML.BAG IVPB SCH (05:31)
[2018-06-06 05:51] LABS: Glucose,Whole Blood 189 mg/dL (75-99)
[2018-06-06 06:14] LABS: Basophils % (A) 0 %; Eosinophils # (A) 0.1 k/uL (0-0.7); Eosinophils % (A) 2 %; HGB 7.2 gm/dL (13.0-17.5); Lymphocytes % (A) 23 %; MCH 32.6 pg (25.0-35.0); MCHC 34.5 g/dL (31.0-37.0); MCV 94.6 fL (80.0-100.0); Mean Platelet Volume 9.3; Monocytes # (A) 0.2 k/uL (0-1.0); Monocytes % (A) 5 %; Neutrophils % (A) 69 %; Poikilocytosis Slight; RBC 2.22 m/uL (4.30-5.90); RDW 15.5 % (11.5-15.5); WBC 4.3 k/uL (3.8-10.6)
[2018-06-06 06:27] LABS: Platelet Count 49 k/uL (150-450); Potassium 4.4 mmol/L (3.5-5.1); Total Bilirubin 1.9 mg/dL (0.2-1.3); Total Protein 5.5 g/dL (6.3-8.2)
[2018-06-06] MEDS: PANTOPRAZOLE 40 MG TABLET PO SCH (06:30)
[2018-06-06] MEDS: CALCIUM ACETATE 667 MG CAP PO SCH ×3 (06:30→17:06)
[2018-06-06 06:32] LABS: Vancomycin,Random 19.2 ug/mL
[2018-06-06] MEDS: INSULIN ASPART 100 UNIT/ML 1 ML 10 ML VIAL SQ SCH ×3 (07:05→17:06)
--- NOTE | 2018-06-06 08:01 | P.PN ---
Subjective Progress Note Date: 06/06/18 This is a 57 Year-Old male one of patient with a previous medical history significant for CAD post PCI and stenting of the RCA x3 stents 2013. 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 Last admitted June 2017 for metabolic encephalopathy and acute hypoxic hypercarbic respiratory failure secondary to acute diastolic heart failure and hypercarbia for which patient was briefly intubated. Sepsis was ruled out during the last admission. Patient comes at this time with increased generalized weakness associated with change in mental status. Patient does complain of some cough and shortness of breath with sputum production. Most of the history is provided by the family at bedside as patient is not able to give any history. He did have 3 suspected skin cancer removed for biopsy by Dr. Myers but was feeling unwell for past 2 days. Patient missed dialysis yesterday due to the weakness. He usually gets it at Friday and Friday. In the ER patient was found to have a fever of 103 pulse rate of 125, respiratory rate 32, blood pressure 183/81. Labs obtained in the ER suggested leukocyte of 8.6 chronic thrombocytopenia with platelets 52, INR 1.1, potassium 6.7, creatinine 5.42, glucose 233 calcium 8, total bilirubin 1.4 initial troponin 0.651 which increased to 2.6. Lactate is 1.7 Patient was evaluated by cardiology in the ER was suggested that the increase in troponin been related to sepsis. Echocardiogram has been ordered. Chest x-ray done in the ER concerning for interstitial infiltrate concerning for pneumonia. Patient has already received 1 dose of vancomycin and Levaquin dose adjusted to kidney functions. Due to patient's end-stage renal disease patient would not be able to get any fluid boluses or at maintainance. Pro- calcitonin ordered. Mycoplasma and urinary legionella ordered. Patient is admitted for sepsis secondary to community-acquired pneumonia with possible volume overload and hypercarbia causing change in mental status. 06/05: Patient lying in bed with Dialysis at bedside. Patient did get up and walk around today but states he was Short of breath when returning to bed. Patient continues with SOB with exertion and fatigue. Patient has a history of anemia, thrombocytopenia and Hgb decreased to 7.6. Patient does complain of bilateral abdominal pain. 06/06: patient is sitting at the edge of he bed eating breakfast, feeling a bit better, no fever or chilss, no abdominal pain, still short of breath with activity,we will continue to monitor hgb very closely. Objective - Vital Signs Vital signs: Vital Signs Temp 98.2 F 06/06/18 04:00 Pulse 69 06/06/18 04:00 Resp 20 06/06/18 04:00 BP 143/66 06/06/18 04:00 Pulse Ox 97 06/06/18 04:00 Intake & Output 06/05/18 06/06/18 06/06/18 18:59 06:59 18:59 Intake Total 826 446 Output Total 2200 Balance -1374 446 Weight 93.7 kg Intake: Oral 826 446 Output: Urine 200 Other 2000 Other: Voiding Method Urinal Urinal # Voids 1 1 # Bowel Movements 0 0 - Exam Constitutional General appearance: cooperative, in mild distress, - EENT Eyes: anicteric sclerae, PERRLA, normal appearance ENT: hearing grossly normal - Neck Neck: no lymphadenopathy, normal ROM, no other, no rigidity, no stridor, no thyromegaly - Respiratory Respiratory: bilateral: Decreased air entry with crackles at the bases - Cardiovascular Rhythm: Tachycardic Heart sounds: normal: S1, S2 Abnormal Heart Sounds: no systolic murmur, no diastolic murmur, no rub, no S3 Gallop, no S4 Martines - Gastrointestinal General gastrointestinal: normal bowel sounds, soft, bilateral lower abdominal pain - Integumentary Integumentary: biopsy site at forehead, wrist and right ear appears to be oozing bloody discharge but no sign of inflammation or concern for infection - Neurologic Neurologic: CNII-XII intact - Musculoskeletal Musculoskeletal: strength equal bilaterally - Psychiatric Psychiatric: A&O x's 3, appropriate affect - Labs CBC & Chem 7: 06/06/18 05:13 06/06/18 05:13 Labs: Abnormal Lab Results - Last 24 Hours (Table) 06/05/18 06/05/18 06/05/18 Range/Units 06:11 06:11 06:11 RBC 2.21 L (4.30-5.90) m/uL Hgb 7.6 L D (13.0-17.5) gm/dL Hct 21.7 L (39.0-53.0) % RDW 15.6 H (11.5-15.5) % Plt Count 39 L (150-450) k/uL Retic Count 2.1 H (0.5-2.0) % Sodium (137-145) mmol/L Chloride (98-107) mmol/L BUN 44 H (9-20) mg/dL Creatinine 4.78 H (0.66-1.25) mg/dL Glucose 110 H (74-99) mg/dL POC Glucose (mg/dL) (75-99) mg/dL Calcium 7.9 L (8.4-10.2) mg/dL Iron (65-175) ug/dL TIBC (228-460) ug/dL Ferritin (22.0-322.0) ng/mL Total Bilirubin 1.9 H (0.2-1.3) mg/dL Total Protein 5.3 L (6.3-8.2) g/dL Albumin 2.8 L (3.5-5.0) g/dL 06/05/18 06/05/18 06/05/18 Range/Units 06:11 11:56 16:31 RBC (4.30-5.90) m/uL Hgb (13.0-17.5) gm/dL Hct (39.0-53.0) % RDW (11.5-15.5) % Plt Count (150-450) k/uL Retic Count (0.5-2.0) % Sodium (137-145) mmol/L Chloride (98-107) mmol/L BUN (9-20) mg/dL Creatinine (0.66-1.25) mg/dL Glucose (74-99) mg/dL POC Glucose (mg/dL) 111 H 128 H (75-99) mg/dL Calcium (8.4-10.2) mg/dL Iron 39 L (65-175) ug/dL TIBC 174 L (228-460) ug/dL Ferritin 648.9 H (22.0-322.0) ng/mL Total Bilirubin (0.2-1.3) mg/dL Total Protein (6.3-8.2) g/dL Albumin (3.5-5.0) g/dL 06/05/18 06/06/18 06/06/18 Range/Units 20:36 05:13 05:13 RBC 2.22 L (4.30-5.90) m/uL Hgb 7.2 L (13.0-17.5) gm/dL Hct 21.0 L (39.0-53.0) % RDW (11.5-15.5) % Plt Count 49 L (150-450) k/uL Retic Count (0.5-2.0) % Sodium 134 L (137-145) mmol/L Chloride 97 L (98-107) mmol/L BUN 37 H (9-20) mg/dL Creatinine 4.31 H (0.66-1.25) mg/dL Glucose 161 H (74-99) mg/dL POC Glucose (mg/dL) 188 H (75-99) mg/dL Calcium 8.0 L (8.4-10.2) mg/dL Iron (65-175) ug/dL TIBC (228-460) ug/dL Ferritin (22.0-322.0) ng/mL Total Bilirubin 1.9 H (0.2-1.3) mg/dL Total Protein 5.5 L (6.3-8.2) g/dL Albumin 3.0 L (3.5-5.0) g/dL 06/06/18 Range/Units 05:50 RBC (4.30-5.90) m/uL Hgb (13.0-17.5) gm/dL Hct (39.0-53.0) % RDW (11.5-15.5) % Plt Count (150-450) k/uL Retic Count (0.5-2.0) % Sodium (137-145) mmol/L Chloride (98-107) mmol/L BUN (9-20) mg/dL Creatinine (0.66-1.25) mg/dL Glucose (74-99) mg/dL POC Glucose (mg/dL) 189 H (75-99) mg/dL Calcium (8.4-10.2) mg/dL Iron (65-175) ug/dL TIBC (228-460) ug/dL Ferritin (22.0-322.0) ng/mL Total Bilirubin (0.2-1.3) mg/dL Total Protein (6.3-8.2) g/dL Albumin (3.5-5.0) g/dL Microbiology - Last 24 Hours (Table) 06/04/18 01:10 Blood Culture - Preliminary Blood No Growth after 48 hours 06/04/18 02:00 Urine Culture - Final Urine,Voided Assessment and Plan Assessment: Assessment and Plan: #1 sepsis secondary to Multifocal pneumonia/interstitial pneumonia. Mycoplasma negative. Waiting for Legionella urinary antigen results. Continue patient on levofloxacin and vancomycin. Avoid IV fluids as patient is in volume overload from end-stage kidney disease. Lactic acid is normal. Continue DuoNeb for breathing treatments. Tylenol for fever. Status post fluid bolus in the ER. Pro-calcitonin positive. Consult ordered for Infectious Diseases. #2 troponinemia likely secondary to end-stage renal disease no coronary artery disease cannot be ruled out. EKG with no signs of ST changes. Troponin 3 ordered patient has no history of coronary artery disease. Echocardiogram decreased to 30-35%. Cardiology consult #3 hyperkalemia secondary to noncompliance to dialysis. Status post sodium bicarb and insulin. Repeat potassium stable at 5.1. Continue with Dialysis. #4 metabolic encephalopathy likely secondary to sepsis with possible hypercarbia. Patient was briefly on BiPAP currently on 4 L of nasal cannula. #5 acute hypoxic respiratory failure likely secondary to pneumonia with the possibility include volume overload. BNP elevated. Echocardiogram decreased to 30-35%. ABG ordered unlikely to be COPD exacerbation no wheezing on examination. Patient has poor compliance and has been intubated briefly in the past because of his hypoxia and hypercarbia. Pulmonary consulted due to patient 's increased morbidity and poor compliance #6 type 2 diabetes insulin-dependent continue levemer there 27 units daily with 9 units with meals. Sliding scale ordered. #7 chronic diastolic heart failure. Echocardiogram decreased and pending cardiology consult. Monitor input and output. Daily weights. Continue patient on Bumex 4 mg in the morning and 2 mg at bedtime. Continue diltiazem 180 mg by mouth daily , continue metoprolol and 50 mg twice a day . Lisinopril 20 mg by mouth twice a day #8 diabetic neuropathy continue Lyrica at 50 mg bedtime #9 End stage renal disease on hemodialysis Friday. Continue PhosLo. Nephrology on consult #10 MONTSE noncompliant to CPAP #11 CAD status post PCI to the RCA. Continue aspirin 81 mg Lipitor 80 mg by mouth daily continue metoprolol 150 mg twice a day, diltiazem 180 mg daily #12 thrombocytopenia with splenomegaly which is alcohol induced. It is chronically low. Watch for medications that can drop the platelets will hold anticoagulation therapy #13 anxiety, depression continue Abilify #14 peripheral artery disease continue aspirin watch for platelet drop. Repeat CBC tomorrow #15 degenerative disc disease of cervical spine status post-ACDF continue [place] and [place] Contin #16 DVT prophylaxis with mechanical prophylaxis knee-high RYAN hose #17 GI prophylaxis continue with PPIs #18 chronic Anemia related to iron deficency- iron profile ordered. #[address] with no contrast showed splenomegaly with collateral blood vessels at the upper abdomen with small right sided pleural effusion. #20. PT evaluation.
[2018-06-06] MEDS: BUMETANIDE 1 MG TAB PO SCH ×2 (08:24→21:33)
[2018-06-06] MEDS: DILTIAZEM CD 180 MG CAP.ER.24H PO SCH (08:25)
[2018-06-06] MEDS: LISINOPRIL 20 MG TAB PO SCH ×2 (08:25→21:33)
[2018-06-06] MEDS: ARIPiprazole 5 MG TAB PO SCH (08:25)
[2018-06-06] MEDS: FAMOTIDINE 20 MG TAB PO SCH (08:25)
[2018-06-06] MEDS: CHOLECALCIFEROL 1,000 UNIT TAB PO SCH (08:25)
[2018-06-06] MEDS: hydrALAZINE HCL 50 MG TAB PO SCH ×3 (08:25→21:34)
[2018-06-06] MEDS: ISOSORBIDE MONONITRATE ER 30 MG TAB.ER.24H PO SCH (08:25)
[2018-06-06] MEDS: guaiFENesin 600 MG TABLET.ER PO SCH ×2 (08:25→21:34)
[2018-06-06] MEDS: METOPROLOL TARTRATE 50 MG TAB PO SCH ×2 (08:25→21:33)
[2018-06-06] MEDS: amLODIPine 5 MG TAB PO SCH ×2 (08:25→21:33)
[2018-06-06] MEDS: INSULIN DETEMIR 100 UNIT/ML 10 ML VIAL SQ SCH (08:26)
[2018-06-06] MEDS: SPIRONOLACTONE 25 MG TAB PO SCH (08:26)
[2018-06-06] MEDS: PREGABALIN 50 MG CAP PO SCH ×2 (08:26→23:53)
[2018-06-06] MEDS: MORPHINE SULFATE ER 30 MG TABLET PO SCH ×2 (08:26→23:53)
[2018-06-06] MEDS ORDERED: VANCOMYCIN 1,500 MG in SODIUM CHLORIDE 0.9% 250 ML IVPB ONE (09:00)
--- NOTE | 2018-06-06 10:05 | P.PN ---
Subjective Progress Note Date: 06/06/18 Principal diagnosis: Shortness of breath secondary to pulmonary edema, fluid overload, possible underlying pneumonia. This is a 57-year-old white male with history of multiple medical problems including chronic renal failure, on hemodialysis. Patient is also known to history of coronary artery disease, previous PCI, stenting of RCA 3 stents total in 2013. History of hypertension, cardiovascular disease, type 2 diabetes , diabetic neuropathy, history of alcohol abuse with associated thrombocytopenia and splenomegaly, patient had previous history of metabolic encephalopathy treated in June of 2017, history of diastolic congestive heart failure, admitted this time with mostly symptoms of generalized weakness, confusion, and change in mental status. Patient has also been complaining of some shortness of breath, chest x-ray was suggestive of interstitial edema, his BNP level was elevated, troponin was also elevated, received Lasix in the ER, and there was a significant improvement in his overall pulmonary status patient apparently diuresed significantly although he doesn't usually make much urine since he is a renal failure patient. By the time I saw the patient on consultation, he had no active pulmonary symptoms whatsoever. Patient was relatively asymptomatic, no cough no wheezing no shortness of breath. However apparently when he was admitted there was a concern that the patient may have sepsis because his lactic acid was 1.7. And he was placed empirically on antibiotics for presumptive pneumonia, although the findings on the chest x-ray and the clinical findings are mostly findings of interstitial edema. Again I strongly doubt pneumonia. During my evaluation, the patient was basically asymptomatic. He had no chest pain no cough no wheezing no fever no chills no hemoptysis and no chest pain. Troponin was noted to be a bit higher compared to the morning troponin. His BNP level was over 17,600. Reevaluated today on 06/05/2018, patient is presently on dialysis, he had 1 dialysis done last night, he continues to feel much better. Denies any shortness of breath, no cough, no wheezing, no chest pain. However the patient spiked a temp last night, he had a temp of 101.1 and his temp now is 99.7. Patient is on room air, O2 saturations 97%, blood pressure is normal 132/79. Heart rate is 76. All labs were reviewed, he does not have leukocytosis, basic metabolic profile is normal BUN is 44 creatinine is 4.78. Reviewed the chest x- ray again, clearly consistent with interstitial edema. Remind me patient had a significantly elevated BNP level on admission. Reevaluated today on 06/06/2018, had his dialysis yesterday, and 2 L of fluids were removed. Patient continues to feel better clinically, no shortness of breath no cough no wheezing. No fever no chills, no chest pain, no hemoptysis. Chest x-ray today showed definite improvement compared to previous x-rays, and clinically the patient is showing definite improvement in his room air saturation is 97%. Hemodynamically remained stable all along since admission. Objective - Vital Signs Vital signs: Vital Signs Temp 98.3 F 06/06/18 08:39 Pulse 69 06/06/18 08:39 Resp 20 06/06/18 08:39 BP 125/60 06/06/18 08:39 Pulse Ox 96 06/06/18 08:39 Intake & Output 06/05/18 06/06/18 06/06/18 18:59 06:59 18:59 Intake Total 826 446 180 Output Total 2200 Balance -1374 446 180 Weight 93.7 kg Intake: Oral 826 446 180 Output: Urine 200 Other 2000 Other: Voiding Method Urinal Urinal Urinal # Voids 1 1 # Bowel Movements 0 0 - Exam Physical Exam: Revealed a 57-year-old white male, very pleasant, in no form of distress Head: Atraumatic, normocephalic, HEENT:[Neck is supple.] [No neck masses.] [No thyromegaly.] [No JVD.] PERRLA, EOMI, no icterus. Chest: [Clear bilaterally no crackles or rhonchi or wheezes Cardiac Exam: [Normal S1 and S2, no S3 gallop, 2/6 systolic murmur thought the precordium.] Abdomen: [Soft, nontender, no megaly, no rebound, no guarding, normal bowel sounds.] Extremities: [No clubbing, trace of bipedal edema, no cyanosis.], AV fistula noted in the left forearm. Neurological Exam: [No focal neurologic deficit.] Lymphatics: No lymphadenopathy Psychiatric: Normal mood, affect, and mental status examination. - Labs CBC & Chem 7: 06/06/18 05:13 06/06/18 05:13 Labs: Abnormal Lab Results - Last 24 Hours (Table) 06/05/18 06/05/18 06/05/18 Range/Units 06:11 06:11 11:56 RBC (4.30-5.90) m/uL Hgb (13.0-17.5) gm/dL Hct (39.0-53.0) % Plt Count (150-450) k/uL Retic Count 2.1 H (0.5-2.0) % Sodium (137-145) mmol/L Chloride (98-107) mmol/L BUN (9-20) mg/dL Creatinine (0.66-1.25) mg/dL Glucose (74-99) mg/dL POC Glucose (mg/dL) 111 H (75-99) mg/dL Calcium (8.4-10.2) mg/dL Iron 39 L (65-175) ug/dL TIBC 174 L (228-460) ug/dL Ferritin 648.9 H (22.0-322.0) ng/mL Total Bilirubin (0.2-1.3) mg/dL Total Protein (6.3-8.2) g/dL Albumin (3.5-5.0) g/dL 06/05/18 06/05/18 06/06/18 Range/Units 16:31 20:36 05:13 RBC 2.22 L (4.30-5.90) m/uL Hgb 7.2 L (13.0-17.5) gm/dL Hct 21.0 L (39.0-53.0) % Plt Count 49 L (150-450) k/uL Retic Count (0.5-2.0) % Sodium (137-145) mmol/L Chloride (98-107) mmol/L BUN (9-20) mg/dL Creatinine (0.66-1.25) mg/dL Glucose (74-99) mg/dL POC Glucose (mg/dL) 128 H 188 H (75-99) mg/dL Calcium (8.4-10.2) mg/dL Iron (65-175) ug/dL TIBC (228-460) ug/dL Ferritin (22.0-322.0) ng/mL Total Bilirubin (0.2-1.3) mg/dL Total Protein (6.3-8.2) g/dL Albumin (3.5-5.0) g/dL 06/06/18 06/06/18 Range/Units 05:13 05:50 RBC (4.30-5.90) m/uL Hgb (13.0-17.5) gm/dL Hct (39.0-53.0) % Plt Count (150-450) k/uL Retic Count (0.5-2.0) % Sodium 134 L (137-145) mmol/L Chloride 97 L (98-107) mmol/L BUN 37 H (9-20) mg/dL Creatinine 4.31 H (0.66-1.25) mg/dL Glucose 161 H (74-99) mg/dL POC Glucose (mg/dL) 189 H (75-99) mg/dL Calcium 8.0 L (8.4-10.2) mg/dL Iron (65-175) ug/dL TIBC (228-460) ug/dL Ferritin (22.0-322.0) ng/mL Total Bilirubin 1.9 H (0.2-1.3) mg/dL Total Protein 5.5 L (6.3-8.2) g/dL Albumin 3.0 L (3.5-5.0) g/dL Microbiology - Last 24 Hours (Table) 06/04/18 01:10 Blood Culture - Preliminary Blood No Growth after 48 hours 06/04/18 02:00 Urine Culture - Final Urine,Voided Assessment and Plan Assessment: Impression: 1 acute pulmonary edema, most likely secondary to fluid overload secondary to chronic renal failure, and secondary to systolic dysfunction, his ejection fraction on the echocardiogram showed 30%. Significant anteroseptal hypokinesis noted. 2 possibility of pneumonia is not entirely ruled out, especially with elevated pro calcitonin level hence would recommend we continue antibiotics. 3 acute presentation of metabolic encephalopathy resolved by the time I evaluated the patient. 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 8 end-stage renal disease, on hemodialysis. 9 type 2 diabetes 10 hyperkalemia secondary to renal failure, patient apparently has been noncompliant with dialysis. Nephrology is following. Recommendation: Continue hemodialysis, continue antibiotics, pro calcitonin level was noted to be elevated, hence possibility of underlying pneumonia is in the differential. Consider discharge planning on oral antibiotics early next week. We'll continue to follow. Time with Patient: Less than 30
--- NOTE | 2018-06-06 10:22 | XR ---
EXAMINATION TYPE: XR chest 1V portable DATE OF EXAM: 06/06/2018 HISTORY: chf. REFERENCE: Previous study dated 06/05/2018. FINDINGS: There has been a previous ACDF of the lower cervical spine. The heart is enlarged. Pulmonary vasculature and interstitial edema have improved. No definite pleura l fluid is seen. IMPRESSION: IMPROVING CHANGES OF PULMONARY EDEMA.
--- NOTE | 2018-06-06 11:46 | P.PN ---
Subjective Progress Note Date: 06/06/18 Principal diagnosis: This is a 57-year-old male with ESRD on dialysis Friday was admitted because of changes in mental status and pneumonia and possibly. He is being treated with antibiotics. He is improved. He was dialyzed yesterday. He denies any fever chills cough shortness of breath dizziness is able to walk. Appetite is fair. Patient known with coronary artery disease status post stenting 2013, type 2 diabetes with history of alcohol abuse with leukopenia thrombocytopenia and anemia. Objective - Vital Signs Vital signs: Vital Signs Temp 98.3 F 06/06/18 08:39 Pulse 69 06/06/18 08:39 Resp 20 06/06/18 08:39 BP 125/60 06/06/18 08:39 Pulse Ox 96 06/06/18 08:39 Intake & Output 06/05/18 06/06/18 06/06/18 18:59 06:59 18:59 Intake Total 826 446 180 Output Total 2200 400 Balance -1374 446 -220 Weight 93.7 kg Intake: Oral 826 446 180 Output: Urine 200 400 Other 2000 Other: Voiding Method Urinal Urinal Urinal # Voids 1 1 # Bowel Movements 0 0 On examination is awake alert oriented comfortable. HEENT exam no JVP neck is supple no facial asymmetry Lungs are clear to auscultation good air entry bilaterally Heart sounds are unremarkable for any murmur rub gallop Abdomen soft nontender somewhat protuberant Extremity exam was no edema Awake alert oriented warm to touch. - Labs CBC & Chem 7: 06/06/18 05:13 06/06/18 05:13 Labs: Abnormal Lab Results - Last 24 Hours (Table) 06/05/18 06/05/18 06/05/18 Range/Units 06:11 11:56 16:31 RBC (4.30-5.90) m/uL Hgb (13.0-17.5) gm/dL Hct (39.0-53.0) % Plt Count (150-450) k/uL Sodium (137-145) mmol/L Chloride (98-107) mmol/L BUN (9-20) mg/dL Creatinine (0.66-1.25) mg/dL Glucose (74-99) mg/dL POC Glucose (mg/dL) 111 H 128 H (75-99) mg/dL Calcium (8.4-10.2) mg/dL Iron 39 L (65-175) ug/dL TIBC 174 L (228-460) ug/dL Ferritin 648.9 H (22.0-322.0) ng/mL Total Bilirubin (0.2-1.3) mg/dL Total Protein (6.3-8.2) g/dL Albumin (3.5-5.0) g/dL 06/05/18 06/06/18 06/06/18 Range/Units 20:36 05:13 05:13 RBC 2.22 L (4.30-5.90) m/uL Hgb 7.2 L (13.0-17.5) gm/dL Hct 21.0 L (39.0-53.0) % Plt Count 49 L (150-450) k/uL Sodium 134 L (137-145) mmol/L Chloride 97 L (98-107) mmol/L BUN 37 H (9-20) mg/dL Creatinine 4.31 H (0.66-1.25) mg/dL Glucose 161 H (74-99) mg/dL POC Glucose (mg/dL) 188 H (75-99) mg/dL Calcium 8.0 L (8.4-10.2) mg/dL Iron (65-175) ug/dL TIBC (228-460) ug/dL Ferritin (22.0-322.0) ng/mL Total Bilirubin 1.9 H (0.2-1.3) mg/dL Total Protein 5.5 L (6.3-8.2) g/dL Albumin 3.0 L (3.5-5.0) g/dL 06/06/18 Range/Units 05:50 RBC (4.30-5.90) m/uL Hgb (13.0-17.5) gm/dL Hct (39.0-53.0) % Plt Count (150-450) k/uL Sodium (137-145) mmol/L Chloride (98-107) mmol/L BUN (9-20) mg/dL Creatinine (0.66-1.25) mg/dL Glucose (74-99) mg/dL POC Glucose (mg/dL) 189 H (75-99) mg/dL Calcium (8.4-10.2) mg/dL Iron (65-175) ug/dL TIBC (228-460) ug/dL Ferritin (22.0-322.0) ng/mL Total Bilirubin (0.2-1.3) mg/dL Total Protein (6.3-8.2) g/dL Albumin (3.5-5.0) g/dL Microbiology - Last 24 Hours (Table) 06/04/18 01:10 Blood Culture - Preliminary Blood No Growth after 48 hours 06/04/18 02:00 Urine Culture - Final Urine,Voided Assessment and Plan Assessment: Impression 1. ESRD on dialysis Friday stable. 2. Admitted with mental status changes from pneumonia improved and resolved. 3. History of ASHD in the past with stenting in 2013 4. History of diabetes mellitus with complications. 5. History of alcohol rhythm with thrombocytopenia leukopenia and splenomegaly. 6. Anemia with hemoglobin 7.2 down from 9.8. Watch for bleeding. Iron saturations 22% dated 06/05/2018 yesterday 7. Sodium is 134 this morning, he had his dialysis yesterday. This might also reflect slightly high blood sugar causing transcellular shift.. Recommendation. 1. Give him FERRLECIT and 25 mg 1 dose today and 1 dose tomorrow 2. Darbepoetin 40 g every week 3. Watch for bleeding
[2018-06-06 11:54] LABS: Glucose,Whole Blood 173 mg/dL (75-99)
[2018-06-06] MEDS ORDERED: SODIUM FERRIC GLUCONAT-SUCROSE 125 MG in SODIUM CHLORIDE 0.9% 100 ML IVPB ONE (12:00)
--- NOTE | 2018-06-06 12:23 | P.PN ---
Subjective Progress Note Date: 06/06/18 This is a pleasant 57-year-old gentleman with history of end-stage renal disease on hemodialysis, hypertension, insulin requiring diabetes, CAD with prior stenting. He follows with a cause analyst out of [facility]. He presented to the hospital primary complaining of not feeling well overall mild confusion and fever. We were asked to the patient in consultation due to elevated troponin with initial troponin of 0.651 second troponin 2.6 and third troponin 3.5. Patient remained febrile with a temperature max of 101.1F yesterday morning. Hemoglobin is low at 7.6 and platelet count is only 49 heparin and anti-platelets have been avoided. Started the patient on oral nitrates. Echocardiogram with Doppler came back to show an ejection fraction of 30-35% with anterior septal, inferior and septal hypokinesis. Upon examination today, patient is resting comfortably in bed. Overall says he's feeling tired today. Labs today showed an improved potassium of 4.4 with a BUN of 37 and creatinine of 4.31. The followed by nephrology. Objective - Vital Signs Vital signs: Vital Signs Temp 98.3 F 06/06/18 08:39 Pulse 69 06/06/18 08:39 Resp 20 06/06/18 08:39 BP 125/60 06/06/18 08:39 Pulse Ox 96 06/06/18 08:39 Intake & Output 06/05/18 06/06/18 06/06/18 18:59 06:59 18:59 Intake Total 826 446 180 Output Total 2200 400 Balance -1374 446 -220 Weight 93.7 kg Intake: Oral 826 446 180 Output: Urine 200 400 Other 2000 Other: Voiding Method Urinal Urinal Urinal # Voids 1 1 # Bowel Movements 0 0 - Exam PHYSICAL EXAMINATION: HEENT: Head is atraumatic, normocephalic. Pupils equal, round. Neck is supple. There is no elevated jugular venous pressure. HEART EXAMINATION: Heart sounds regular, S1 and S2 normal. No murmur or gallop heard. CHEST EXAMINATION: Lungs reveal diminished air entry throughout with crackles noted to right lower lobe. No chest wall tenderness is noted on palpation or with deep breathing. ABDOMEN: Soft, nontender. Bowel sounds are heard. No organomegaly noted. EXTREMITIES: 2+ peripheral pulses with no evidence of peripheral edema and no calf tenderness noted. Left upper arm AV fistula noted. NEUROLOGIC patient is awake, alert and oriented x2-3 somewhat confused as he says he had a cardiac catheterization done here 8 months ago with no record of this. . - Labs CBC & Chem 7: 06/06/18 05:13 06/06/18 05:13 Labs: Abnormal Lab Results - Last 24 Hours (Table) 06/05/18 06/05/18 06/05/18 Range/Units 06:11 11:56 16:31 RBC (4.30-5.90) m/uL Hgb (13.0-17.5) gm/dL Hct (39.0-53.0) % Plt Count (150-450) k/uL Sodium (137-145) mmol/L Chloride (98-107) mmol/L BUN (9-20) mg/dL Creatinine (0.66-1.25) mg/dL Glucose (74-99) mg/dL POC Glucose (mg/dL) 111 H 128 H (75-99) mg/dL Calcium (8.4-10.2) mg/dL Iron 39 L (65-175) ug/dL TIBC 174 L (228-460) ug/dL Ferritin 648.9 H (22.0-322.0) ng/mL Total Bilirubin (0.2-1.3) mg/dL Total Protein (6.3-8.2) g/dL Albumin (3.5-5.0) g/dL 06/05/18 06/06/18 06/06/18 Range/Units 20:36 05:13 05:13 RBC 2.22 L (4.30-5.90) m/uL Hgb 7.2 L (13.0-17.5) gm/dL Hct 21.0 L (39.0-53.0) % Plt Count 49 L (150-450) k/uL Sodium 134 L (137-145) mmol/L Chloride 97 L (98-107) mmol/L BUN 37 H (9-20) mg/dL Creatinine 4.31 H (0.66-1.25) mg/dL Glucose 161 H (74-99) mg/dL POC Glucose (mg/dL) 188 H (75-99) mg/dL Calcium 8.0 L (8.4-10.2) mg/dL Iron (65-175) ug/dL TIBC (228-460) ug/dL Ferritin (22.0-322.0) ng/mL Total Bilirubin 1.9 H (0.2-1.3) mg/dL Total Protein 5.5 L (6.3-8.2) g/dL Albumin 3.0 L (3.5-5.0) g/dL 06/06/18 06/06/18 Range/Units 05:50 11:44 RBC (4.30-5.90) m/uL Hgb (13.0-17.5) gm/dL Hct (39.0-53.0) % Plt Count (150-450) k/uL Sodium (137-145) mmol/L Chloride (98-107) mmol/L BUN (9-20) mg/dL Creatinine (0.66-1.25) mg/dL Glucose (74-99) mg/dL POC Glucose (mg/dL) 189 H 173 H (75-99) mg/dL Calcium (8.4-10.2) mg/dL Iron (65-175) ug/dL TIBC (228-460) ug/dL Ferritin (22.0-322.0) ng/mL Total Bilirubin (0.2-1.3) mg/dL Total Protein (6.3-8.2) g/dL Albumin (3.5-5.0) g/dL Microbiology - Last 24 Hours (Table) 06/04/18 01:10 Blood Culture - Preliminary Blood No Growth after 48 hours 06/04/18 02:00 Urine Culture - Final Urine,Voided Assessment and Plan Assessment: #1 non-ST elevation myocardial infarction #2 fever, etiology unclear currently on IV antibiotics #3 hypertension #4 diabetes #5 end-stage renal disease on hemodialysis #6 history of CAD with prior stenting of the RCA by Dr. Ibarra in 2014, subsequent cardiac catheterization details are unknown #7 anemia, hemoglobin today 7.2, iron studies have been ordered by primary Plan: From cardiology perspective, we will continue maximized medical therapy for now. We'll continue to follow the patient and provide further recommendations accordingly. WEB PRODUCER note has been reviewed, I agree with a documented findings and plan of care. Patient was seen and examined.
[2018-06-06 17:09] LABS: Glucose,Whole Blood 156 mg/dL (75-99)
[2018-06-06 20:15] LABS: Glucose,Whole Blood 156 mg/dL (75-99)
[2018-06-06] MEDS: ATORVASTATIN 80 MG TAB PO SCH (21:34)
[2018-06-07] MEDS: PIPERACILLIN-TAZOBACTAM 3.375 GM in DEXTROSE/WATER 1 50ML.BAG IVPB SCH ×2 (02:17→15:43)
[2018-06-07] MEDS: SODIUM CHLORIDE 0.9% 1,000 ML IV SCH (03:53)
[2018-06-07 04:52] LABS: Basophils % (A) 0 %; Eosinophils # (A) 0.1 k/uL (0-0.7); Eosinophils % (A) 2 %; HCT 22.7 % (39.0-53.0); HGB 7.9 gm/dL (13.0-17.5); Lymphocytes # (A) 0.9 k/uL (1.0-4.8); Lymphocytes % (A) 19 %; MCH 33.1 pg (25.0-35.0); MCHC 34.8 g/dL (31.0-37.0); Mean Platelet Volume 9.8; Monocytes # (A) 0.2 k/uL (0-1.0); Monocytes % (A) 4 %; Neutrophils # (A) 3.3 k/uL (1.3-7.7); Neutrophils % (A) 74 %; Poikilocytosis Slight; RBC 2.39 m/uL (4.30-5.90); RDW 15.3 % (11.5-15.5); WBC 4.5 k/uL (3.8-10.6)
[2018-06-07 04:59] LABS: Platelet Count 57 k/uL (150-450)
[2018-06-07 05:09] LABS: Glucose,Whole Blood 157 mg/dL (75-99)
[2018-06-07 05:09] LABS: Albumin 3.1 g/dL (3.5-5.0); Calcium 7.9 mg/dL (8.4-10.2); Potassium 5.6 mmol/L (3.5-5.1); Total Bilirubin 1.3 mg/dL (0.2-1.3); Total Protein 5.8 g/dL (6.3-8.2)
--- NOTE | 2018-06-07 05:36 | P.PN ---
Subjective Progress Note Date: 06/07/18 Principal diagnosis: SNTEMI This is a pleasant 57-year-old gentleman with past medical history significant for coronary artery disease and prior coronary artery stenting as well as incisional disease on hemodialysis was admitted to the hospital with change in mental status and he was ruled in for acute non-ST patient myocardial infarction. He was treated medically. Clinically he denies having any chest pain or discomfort today, shortness of breath, dizziness or tenderness, or syncope. The hemoglobin continues to be around 7 and it seems to be that is his baseline. Objective - Vital Signs Vital signs: Vital Signs Temp 98.6 F 06/07/18 03:04 Pulse 76 06/07/18 03:04 Resp 18 06/07/18 03:04 BP 135/66 06/07/18 03:04 Pulse Ox 92 L 06/07/18 03:04 Intake & Output 06/06/18 06/06/18 06/07/18 06:59 18:59 06:59 Intake Total 446 300 150 Output Total 400 Balance 446 -100 150 Weight 93.7 kg 94.971 kg Intake: Oral 446 300 150 Output: Urine 400 Other: Voiding Method Urinal Urinal Urinal # Voids 1 1 # Bowel Movements 0 - Constitutional General appearance: Present: no acute distress - Respiratory Respiratory: bilateral: CTA - Cardiovascular Rhythm: regular Heart sounds: normal: S1, S2 - Labs CBC & Chem 7: 06/07/18 04:29 06/07/18 04:29 Labs: Abnormal Lab Results - Last 24 Hours (Table) 06/06/18 06/06/18 06/06/18 Range/Units 05:13 05:13 05:50 RBC 2.22 L (4.30-5.90) m/uL Hgb 7.2 L (13.0-17.5) gm/dL Hct 21.0 L (39.0-53.0) % Plt Count 49 L (150-450) k/uL Lymphocytes # (1.0-4.8) k/uL Sodium 134 L (137-145) mmol/L Potassium (3.5-5.1) mmol/L Chloride 97 L (98-107) mmol/L BUN 37 H (9-20) mg/dL Creatinine 4.31 H (0.66-1.25) mg/dL Glucose 161 H (74-99) mg/dL POC Glucose (mg/dL) 189 H (75-99) mg/dL Calcium 8.0 L (8.4-10.2) mg/dL Total Bilirubin 1.9 H (0.2-1.3) mg/dL Total Protein 5.5 L (6.3-8.2) g/dL Albumin 3.0 L (3.5-5.0) g/dL 06/06/18 06/06/18 06/06/18 Range/Units 11:44 16:39 20:13 RBC (4.30-5.90) m/uL Hgb (13.0-17.5) gm/dL Hct (39.0-53.0) % Plt Count (150-450) k/uL Lymphocytes # (1.0-4.8) k/uL Sodium (137-145) mmol/L Potassium (3.5-5.1) mmol/L Chloride (98-107) mmol/L BUN (9-20) mg/dL Creatinine (0.66-1.25) mg/dL Glucose (74-99) mg/dL POC Glucose (mg/dL) 173 H 156 H 156 H (75-99) mg/dL Calcium (8.4-10.2) mg/dL Total Bilirubin (0.2-1.3) mg/dL Total Protein (6.3-8.2) g/dL Albumin (3.5-5.0) g/dL 06/07/18 06/07/18 06/07/18 Range/Units 04:29 04:29 05:07 RBC 2.39 L (4.30-5.90) m/uL Hgb 7.9 L (13.0-17.5) gm/dL Hct 22.7 L (39.0-53.0) % Plt Count 57 L (150-450) k/uL Lymphocytes # 0.9 L (1.0-4.8) k/uL Sodium 136 L (137-145) mmol/L Potassium 5.6 H (3.5-5.1) mmol/L Chloride (98-107) mmol/L BUN 54 H (9-20) mg/dL Creatinine 5.98 H (0.66-1.25) mg/dL Glucose 135 H (74-99) mg/dL POC Glucose (mg/dL) 157 H (75-99) mg/dL Calcium 7.9 L (8.4-10.2) mg/dL Total Bilirubin (0.2-1.3) mg/dL Total Protein 5.8 L (6.3-8.2) g/dL Albumin 3.1 L (3.5-5.0) g/dL Microbiology - Last 24 Hours (Table) 06/04/18 01:10 Blood Culture - Preliminary Blood No Growth after 72 hours Assessment and Plan Assessment: Assessment Acute non-ST elevation myocardial infarction Coronary artery disease and prior stenting End stage renal disease on hemodialysis Plan Continue the current medical regimen Start the patient on aspirin once the hemoglobin is better Continue statin and beta tammy From the cardiovascular standpoint overview, the patient can be discharged home.
[2018-06-07] MEDS: CALCIUM ACETATE 667 MG CAP PO SCH ×3 (05:57→16:57)
[2018-06-07] MEDS: PANTOPRAZOLE 40 MG TABLET PO SCH (05:57)
[2018-06-07] MEDS: INSULIN ASPART 100 UNIT/ML 1 ML 10 ML VIAL SQ SCH ×3 (06:02→17:21)
[2018-06-07] MEDS: amLODIPine 5 MG TAB PO SCH ×3 (07:42→22:37)
[2018-06-07] MEDS: METOPROLOL TARTRATE 50 MG TAB PO SCH ×3 (07:42→22:38)
[2018-06-07] MEDS: guaiFENesin 600 MG TABLET.ER PO SCH ×2 (07:43→21:24)
[2018-06-07] MEDS: BUMETANIDE 1 MG TAB PO SCH ×3 (07:43→22:38)
[2018-06-07] MEDS: DILTIAZEM CD 180 MG CAP.ER.24H PO SCH (07:43)
[2018-06-07] MEDS: PREGABALIN 50 MG CAP PO SCH ×2 (07:43→21:25)
[2018-06-07] MEDS: hydrALAZINE HCL 50 MG TAB PO SCH ×4 (07:43→22:38)
[2018-06-07] MEDS: FAMOTIDINE 20 MG TAB PO SCH (07:43)
[2018-06-07] MEDS: ISOSORBIDE MONONITRATE ER 30 MG TAB.ER.24H PO SCH (07:43)
[2018-06-07] MEDS: CHOLECALCIFEROL 1,000 UNIT TAB PO SCH (07:43)
[2018-06-07] MEDS: LISINOPRIL 20 MG TAB PO SCH ×3 (07:44→22:38)
[2018-06-07] MEDS: INSULIN DETEMIR 100 UNIT/ML 10 ML VIAL SQ SCH (07:44)
[2018-06-07] MEDS: SPIRONOLACTONE 25 MG TAB PO SCH (07:44)
[2018-06-07] MEDS: MORPHINE SULFATE ER 30 MG TABLET PO SCH ×2 (07:44→21:24)
[2018-06-07] MEDS: ARIPiprazole 5 MG TAB PO SCH (07:47)
[2018-06-07 11:46] LABS: Glucose,Whole Blood 144 mg/dL (75-99)
--- NOTE | 2018-06-07 12:32 | P.PN ---
Subjective Progress Note Date: 06/07/18 Principal diagnosis: Shortness of breath secondary to pulmonary edema, fluid overload, possible underlying pneumonia. This is a 57-year-old white male with history of multiple medical problems including chronic renal failure, on hemodialysis. Patient is also known to history of coronary artery disease, previous PCI, stenting of RCA 3 stents total in 2013. History of hypertension, cardiovascular disease, type 2 diabetes , diabetic neuropathy, history of alcohol abuse with associated thrombocytopenia and splenomegaly, patient had previous history of metabolic encephalopathy treated in June of 2017, history of diastolic congestive heart failure, admitted this time with mostly symptoms of generalized weakness, confusion, and change in mental status. Patient has also been complaining of some shortness of breath, chest x-ray was suggestive of interstitial edema, his BNP level was elevated, troponin was also elevated, received Lasix in the ER, and there was a significant improvement in his overall pulmonary status patient apparently diuresed significantly although he doesn't usually make much urine since he is a renal failure patient. By the time I saw the patient on consultation, he had no active pulmonary symptoms whatsoever. Patient was relatively asymptomatic, no cough no wheezing no shortness of breath. However apparently when he was admitted there was a concern that the patient may have sepsis because his lactic acid was 1.7. And he was placed empirically on antibiotics for presumptive pneumonia, although the findings on the chest x-ray and the clinical findings are mostly findings of interstitial edema. Again I strongly doubt pneumonia. During my evaluation, the patient was basically asymptomatic. He had no chest pain no cough no wheezing no fever no chills no hemoptysis and no chest pain. Troponin was noted to be a bit higher compared to the morning troponin. His BNP level was over 17,600. Reevaluated today on 06/05/2018, patient is presently on dialysis, he had 1 dialysis done last night, he continues to feel much better. Denies any shortness of breath, no cough, no wheezing, no chest pain. However the patient spiked a temp last night, he had a temp of 101.1 and his temp now is 99.7. Patient is on room air, O2 saturations 97%, blood pressure is normal 132/79. Heart rate is 76. All labs were reviewed, he does not have leukocytosis, basic metabolic profile is normal BUN is 44 creatinine is 4.78. Reviewed the chest x- ray again, clearly consistent with interstitial edema. Remind me patient had a significantly elevated BNP level on admission. Reevaluated today on 06/06/2018, had his dialysis yesterday, and 2 L of fluids were removed. Patient continues to feel better clinically, no shortness of breath no cough no wheezing. No fever no chills, no chest pain, no hemoptysis. Chest x-ray today showed definite improvement compared to previous x-rays, and clinically the patient is showing definite improvement in his room air saturation is 97%. Hemodynamically remained stable all along since admission. Patient was reevaluated today on 06/07/2018, feels great, basically asymptomatic. Denies any shortness of breath, no cough, no wheezing, no fever, no chills, no hemoptysis, no nausea no vomiting no abdominal pain. His last hemodialysis was on Friday. I believe he would have another dialysis tomorrow. Pulmonary-cast the patient is doing great. Labs were reviewed WBC count is 4.5 hemoglobin is 7.9. His BUN is 54 creatinine is 5.98. Potassium is a bit elevated at 5.6. Patient was seen by cardiology today, and advised to continue current medical regimen, advised to continue beta blockers, patient did have acute non-ST elevation myocardial infarction on admission. Objective - Vital Signs Vital signs: Vital Signs Temp 98.2 F 06/07/18 08:29 Pulse 76 06/07/18 08:29 Resp 18 06/07/18 08:29 BP 113/59 06/07/18 08:29 Pulse Ox 94 L 06/07/18 08:29 Intake & Output 06/06/18 06/07/18 06/07/18 18:59 06:59 18:59 Intake Total 300 150 Output Total 400 Balance -100 150 Weight 94.971 kg Intake: Oral 300 150 Output: Urine 400 Other: Voiding Method Urinal Urinal Urinal # Voids 1 - Exam Physical Exam: Revealed a 57-year-old white male, asymptomatic, in no distress. Head: Atraumatic, normocephalic, HEENT:[Neck is supple.] [No neck masses.] [No thyromegaly.] [No JVD.] PERRLA, EOMI, no icterus. Chest: [Clear bilaterally no crackles or rhonchi or wheezes Cardiac Exam: [Normal S1 and S2, no S3 gallop, 2/6 systolic murmur thought the precordium.] Abdomen: [Soft, nontender, no megaly, no rebound, no guarding, normal bowel sounds.] Extremities: [No clubbing, trace of bipedal edema, no cyanosis.], AV fistula noted in the left forearm. Neurological Exam: [No focal neurologic deficit.] Lymphatics: No lymphadenopathy Psychiatric: Normal mood, affect, and mental status examination. - Labs CBC & Chem 7: 06/07/18 04:29 06/07/18 04:29 Labs: Abnormal Lab Results - Last 24 Hours (Table) 06/06/18 06/06/18 06/07/18 Range/Units 16:39 20:13 04:29 RBC 2.39 L (4.30-5.90) m/uL Hgb 7.9 L (13.0-17.5) gm/dL Hct 22.7 L (39.0-53.0) % Plt Count 57 L (150-450) k/uL Lymphocytes # 0.9 L (1.0-4.8) k/uL Sodium (137-145) mmol/L Potassium (3.5-5.1) mmol/L BUN (9-20) mg/dL Creatinine (0.66-1.25) mg/dL Glucose (74-99) mg/dL POC Glucose (mg/dL) 156 H 156 H (75-99) mg/dL Calcium (8.4-10.2) mg/dL Total Protein (6.3-8.2) g/dL Albumin (3.5-5.0) g/dL 06/07/18 06/07/18 06/07/18 Range/Units 04:29 05:07 11:39 RBC (4.30-5.90) m/uL Hgb (13.0-17.5) gm/dL Hct (39.0-53.0) % Plt Count (150-450) k/uL Lymphocytes # (1.0-4.8) k/uL Sodium 136 L (137-145) mmol/L Potassium 5.6 H (3.5-5.1) mmol/L BUN 54 H (9-20) mg/dL Creatinine 5.98 H (0.66-1.25) mg/dL Glucose 135 H (74-99) mg/dL POC Glucose (mg/dL) 157 H 144 H (75-99) mg/dL Calcium 7.9 L (8.4-10.2) mg/dL Total Protein 5.8 L (6.3-8.2) g/dL Albumin 3.1 L (3.5-5.0) g/dL Microbiology - Last 24 Hours (Table) 06/04/18 01:10 Blood Culture - Preliminary Blood No Growth after 72 hours Assessment and Plan Assessment: Impression: 1 acute pulmonary edema, most likely secondary to fluid overload secondary to chronic renal failure, and secondary to systolic dysfunction, his ejection fraction on the echocardiogram showed 30%. Significant anteroseptal hypokinesis noted. 2 possibility of pneumonia is not entirely ruled out, especially with elevated pro calcitonin level hence would recommend we continue antibiotics. 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 8 end-stage renal disease, on hemodialysis. 9 type 2 diabetes 10 hyperkalemia secondary to renal failure, patient apparently has been noncompliant with dialysis. Nephrology is following. 11 acute non-ST elevation myocardial infarction Recommendation: Continue hemodialysis, continue antibiotics, pro calcitonin level was noted to be elevated, hence possibility of underlying pneumonia is in the differential. Consider discharge planning on oral antibiotics possibly after dialysis in the next 24-48 hours. We'll continue to follow. Patient continues to have very complex medical issues, but improving significantly since admission. Time with Patient: Less than 30
--- NOTE | 2018-06-07 13:24 | P.PN ---
Subjective Progress Note Date: 06/07/18 Principal diagnosis: This is a 57-year-old male with ESRD on dialysis Friday was admitted because of changes in mental status and pneumonia and possibly. He is being treated with antibiotics. He is improved. He was dialyzed Friday day before yesterday. He denies any fever chills cough shortness of breath dizziness is able to walk. Appetite is fair. He was somewhat sleepy and he has sleep apnea. He did wake up and answer appropriately. He does have mild asterixis Patient known with coronary artery disease status post stenting 2013, type 2 diabetes with history of alcohol abuse with leukopenia thrombocytopenia and anemia. Objective - Vital Signs Vital signs: Vital Signs Temp 97.9 F 06/07/18 12:00 Pulse 76 06/07/18 12:00 Resp 18 06/07/18 12:00 BP 126/63 06/07/18 12:00 Pulse Ox 96 06/07/18 12:00 Intake & Output 06/06/18 06/07/18 06/07/18 18:59 06:59 18:59 Intake Total 300 150 Output Total 400 Balance -100 150 Weight 94.971 kg Intake: Oral 300 150 Output: Urine 400 Other: Voiding Method Urinal Urinal Urinal # Voids 1 On examination is sleepy but arousable, and is appropriate HEENT exam no JVP neck is supple no facial asymmetry Lungs are clear to auscultation fair air entry bilaterally Heart sounds are unremarkable for any murmur rub gallop Abdomen is soft nontender. He has splenomegaly Extremity exam reveals minimal to mild edema including of this sacral area back and lateral thighs. Neurologically was sleepy but arousable and answered appropriately. Has mild asterixis - Labs CBC & Chem 7: 06/07/18 04:29 06/07/18 04:29 Labs: Abnormal Lab Results - Last 24 Hours (Table) 06/06/18 06/06/18 06/07/18 Range/Units 16:39 20:13 04:29 RBC 2.39 L (4.30-5.90) m/uL Hgb 7.9 L (13.0-17.5) gm/dL Hct 22.7 L (39.0-53.0) % Plt Count 57 L (150-450) k/uL Lymphocytes # 0.9 L (1.0-4.8) k/uL Sodium (137-145) mmol/L Potassium (3.5-5.1) mmol/L BUN (9-20) mg/dL Creatinine (0.66-1.25) mg/dL Glucose (74-99) mg/dL POC Glucose (mg/dL) 156 H 156 H (75-99) mg/dL Calcium (8.4-10.2) mg/dL Total Protein (6.3-8.2) g/dL Albumin (3.5-5.0) g/dL 06/07/18 06/07/18 06/07/18 Range/Units 04:29 05:07 11:39 RBC (4.30-5.90) m/uL Hgb (13.0-17.5) gm/dL Hct (39.0-53.0) % Plt Count (150-450) k/uL Lymphocytes # (1.0-4.8) k/uL Sodium 136 L (137-145) mmol/L Potassium 5.6 H (3.5-5.1) mmol/L BUN 54 H (9-20) mg/dL Creatinine 5.98 H (0.66-1.25) mg/dL Glucose 135 H (74-99) mg/dL POC Glucose (mg/dL) 157 H 144 H (75-99) mg/dL Calcium 7.9 L (8.4-10.2) mg/dL Total Protein 5.8 L (6.3-8.2) g/dL Albumin 3.1 L (3.5-5.0) g/dL Microbiology - Last 24 Hours (Table) 06/04/18 01:10 Blood Culture - Preliminary Blood No Growth after 72 hours Assessment and Plan Assessment: Impression 1. ESRD on dialysis Friday stable. 2. Admitted with mental status changes from pneumonia improved and resolved. 3. History of ASHD in the past with stenting in 2013 4. History of diabetes mellitus with complications. 5. History of alcoholism with thrombocytopenia leukopenia and splenomegaly. 6. Anemia with hemoglobin 7.2 down from 9.8 > 7.2> 7.9. Watch for bleeding. Iron saturations 22% dated 06/05/2018. He was given 1 dose of Ferrlecit IV 125 mg on 06/06/2018 and is on darbepoetin 40 g every week 7. Sodium is 134 > 136 this morning, he had his dialysis day before yesterday. This might also reflect slightly high blood sugar causing transcellular shift.. 8. Hypersplenism Recommendation. 1. Will be giving him his usual scheduled dialysis tomorrow over 4 hours 2. Continue Darbepoetin 40 g every week 3. Watch for bleeding
--- NOTE | 2018-06-07 14:23 | P.PN ---
Subjective Progress Note Date: 06/07/18 This is a 57 Year-Old male one of patient with a previous medical history significant for CAD post PCI and stenting of the RCA x3 stents 2013. 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 Last admitted June 2017 for metabolic encephalopathy and acute hypoxic hypercarbic respiratory failure secondary to acute diastolic heart failure and hypercarbia for which patient was briefly intubated. Sepsis was ruled out during the last admission. Patient comes at this time with increased generalized weakness associated with change in mental status. Patient does complain of some cough and shortness of breath with sputum production. Most of the history is provided by the family at bedside as patient is not able to give any history. He did have 3 suspected skin cancer removed for biopsy by Dr. Myers but was feeling unwell for past 2 days. Patient missed dialysis yesterday due to the weakness. He usually gets it at Friday and Friday. In the ER patient was found to have a fever of 103 pulse rate of 125, respiratory rate 32, blood pressure 183/81. Labs obtained in the ER suggested leukocyte of 8.6 chronic thrombocytopenia with platelets 52, INR 1.1, potassium 6.7, creatinine 5.42, glucose 233 calcium 8, total bilirubin 1.4 initial troponin 0.651 which increased to 2.6. Lactate is 1.7 Patient was evaluated by cardiology in the ER was suggested that the increase in troponin been related to sepsis. Echocardiogram has been ordered. Chest x-ray done in the ER concerning for interstitial infiltrate concerning for pneumonia. Patient has already received 1 dose of vancomycin and Levaquin dose adjusted to kidney functions. Due to patient's end-stage renal disease patient would not be able to get any fluid boluses or at maintainance. Pro- calcitonin ordered. Mycoplasma and urinary legionella ordered. Patient is admitted for sepsis secondary to community-acquired pneumonia with possible volume overload and hypercarbia causing change in mental status. 06/05: Patient lying in bed with Dialysis at bedside. Patient did get up and walk around today but states he was Short of breath when returning to bed. Patient continues with SOB with exertion and fatigue. Patient has a history of anemia, thrombocytopenia and Hgb decreased to 7.6. Patient does complain of bilateral abdominal pain. 06/06: patient is sitting at the edge of he bed eating breakfast, feeling a bit better, no fever or chills, no abdominal pain, still short of breath with activity,we will continue to monitor hgb very closely. 06/07: Patient is laying down in bed he is complain of constipation we will start him on lactulose 30 mL twice every day, patient was instructed to use the CPAP while he is sleeping because of his deep sleep, he denies any chest pain he is less short of breath, we'll continue to monitor the patient very closely. Objective - Vital Signs Vital signs: Vital Signs Temp 98.2 F 06/07/18 08:29 Pulse 76 06/07/18 08:29 Resp 18 06/07/18 08:29 BP 113/59 06/07/18 08:29 Pulse Ox 94 L 06/07/18 08:29 Intake & Output 06/06/18 06/07/18 06/07/18 18:59 06:59 18:59 Intake Total 300 150 Output Total 400 Balance -100 150 Weight 94.971 kg Intake: Oral 300 150 Output: Urine 400 Other: Voiding Method Urinal Urinal Urinal # Voids 1 - Exam Constitutional General appearance: cooperative, in mild distress, - EENT Eyes: anicteric sclerae, PERRLA, normal appearance ENT: hearing grossly normal - Neck Neck: no lymphadenopathy, normal ROM, no other, no rigidity, no stridor, no thyromegaly - Respiratory Respiratory: bilateral: Decreased air entry with crackles at the bases - Cardiovascular Rhythm: Tachycardic Heart sounds: normal: S1, S2 Abnormal Heart Sounds: no systolic murmur, no diastolic murmur, no rub, no S3 Gallop, no S4 Martines - Gastrointestinal General gastrointestinal: normal bowel sounds, soft, bilateral lower abdominal pain - Integumentary Integumentary: biopsy site at forehead, wrist and right ear appears to be oozing bloody discharge but no sign of inflammation or concern for infection - Neurologic Neurologic: CNII-XII intact - Musculoskeletal Musculoskeletal: strength equal bilaterally - Psychiatric Psychiatric: A&O x's 3, appropriate affect - Labs CBC & Chem 7: 06/07/18 04:29 06/07/18 04:29 Labs: Abnormal Lab Results - Last 24 Hours (Table) 06/06/18 06/06/18 06/07/18 Range/Units 16:39 20:13 04:29 RBC 2.39 L (4.30-5.90) m/uL Hgb 7.9 L (13.0-17.5) gm/dL Hct 22.7 L (39.0-53.0) % Plt Count 57 L (150-450) k/uL Lymphocytes # 0.9 L (1.0-4.8) k/uL Sodium (137-145) mmol/L Potassium (3.5-5.1) mmol/L BUN (9-20) mg/dL Creatinine (0.66-1.25) mg/dL Glucose (74-99) mg/dL POC Glucose (mg/dL) 156 H 156 H (75-99) mg/dL Calcium (8.4-10.2) mg/dL Total Protein (6.3-8.2) g/dL Albumin (3.5-5.0) g/dL 06/07/18 06/07/18 06/07/18 Range/Units 04:29 05:07 11:39 RBC (4.30-5.90) m/uL Hgb (13.0-17.5) gm/dL Hct (39.0-53.0) % Plt Count (150-450) k/uL Lymphocytes # (1.0-4.8) k/uL Sodium 136 L (137-145) mmol/L Potassium 5.6 H (3.5-5.1) mmol/L BUN 54 H (9-20) mg/dL Creatinine 5.98 H (0.66-1.25) mg/dL Glucose 135 H (74-99) mg/dL POC Glucose (mg/dL) 157 H 144 H (75-99) mg/dL Calcium 7.9 L (8.4-10.2) mg/dL Total Protein 5.8 L (6.3-8.2) g/dL Albumin 3.1 L (3.5-5.0) g/dL Microbiology - Last 24 Hours (Table) 06/04/18 01:10 Blood Culture - Preliminary Blood No Growth after 72 hours Assessment and Plan Assessment: Assessment and Plan: #1 sepsis secondary to Multifocal pneumonia/interstitial pneumonia. Mycoplasma negative. Waiting for Legionella urinary antigen results. Continue patient on levofloxacin and vancomycin. Avoid IV fluids as patient is in volume overload from end-stage kidney disease. Lactic acid is normal. Continue DuoNeb for breathing treatments. Tylenol for fever. Status post fluid bolus in the ER. Pro-calcitonin positive. Consult ordered for Infectious Diseases. #2 troponinemia likely secondary to end-stage renal disease no coronary artery disease cannot be ruled out. EKG with no signs of ST changes. Troponin 3 ordered patient has no history of coronary artery disease. Echocardiogram decreased to 30-35%. Cardiology consult #3 hyperkalemia secondary to noncompliance to dialysis. Status post sodium bicarb and insulin. Repeat potassium stable at 5.1. Continue with Dialysis. #4 metabolic encephalopathy likely secondary to sepsis with possible hypercarbia. Patient was briefly on BiPAP currently on 4 L of nasal cannula. #5 acute hypoxic respiratory failure likely secondary to pneumonia with the possibility include volume overload. BNP elevated. Echocardiogram decreased to 30-35%. ABG ordered unlikely to be COPD exacerbation no wheezing on examination. Patient has poor compliance and has been intubated briefly in the past because of his hypoxia and hypercarbia. Pulmonary consulted due to patient 's increased morbidity and poor compliance #6 type 2 diabetes insulin-dependent continue levemer there 27 units daily with 9 units with meals. Sliding scale ordered. #7 chronic diastolic heart failure. Echocardiogram decreased and pending cardiology consult. Monitor input and output. Daily weights. Continue patient on Bumex 4 mg in the morning and 2 mg at bedtime. Continue diltiazem 180 mg by mouth daily , continue metoprolol and 50 mg twice a day . Lisinopril 20 mg by mouth twice a day #8 diabetic neuropathy continue Lyrica at 50 mg bedtime #9 End stage renal disease on hemodialysis Friday. Continue PhosLo. Nephrology on consult #10 MONTSE noncompliant to CPAP #11 CAD status post PCI to the RCA. Continue aspirin 81 mg Lipitor 80 mg by mouth daily continue metoprolol 150 mg twice a day, diltiazem 180 mg daily #12 thrombocytopenia with splenomegaly which is alcohol induced. It is chronically low. Watch for medications that can drop the platelets will hold anticoagulation therapy #13 anxiety, depression continue Abilify #14 peripheral artery disease continue aspirin watch for platelet drop. Repeat CBC tomorrow #15 degenerative disc disease of cervical spine status post-ACDF continue [place] and [place] Contin #16 DVT prophylaxis with mechanical prophylaxis knee-high RYAN hose #17 GI prophylaxis continue with PPIs #18 chronic Anemia related to iron deficency- iron profile ordered. #[address] with no contrast showed splenomegaly with collateral blood vessels at the upper abdomen with small right sided pleural effusion. #20. PT evaluation.
[2018-06-07 17:24] LABS: Glucose,Whole Blood 105 mg/dL (75-99)
--- NOTE | 2018-06-07 20:46 | XR ---
EXAMINATION TYPE: XR chest 1V portable DATE OF EXAM: 06/07/2018 COMPARISON: Yesterday HISTORY: Heart failure short of breath TECHNIQUE: Single frontal view of the chest is obtained. FINDINGS: Heart is enlarged. There is pulmonary vascular congestion. There are chest leads. Bony tho rax appears intact. IMPRESSION: There is increasing pulmonary congestion compared to last exam and consistent with worse rick heart failure.
[2018-06-07 21:16] LABS: Glucose,Whole Blood 113 mg/dL (75-99)
[2018-06-07] MEDS: ATORVASTATIN 80 MG TAB PO SCH ×2 (21:23→22:37)
[2018-06-07] MEDS: LACTULOSE 20 GM/30 ML CUP PO SCH ×2 (21:24→22:38)
[2018-06-07 21:55] LABS: ABG Base Excess 0.5 mmol/L; ABG HCO3 27 mmol/L (21-25); ABG PCO2 53 mmHg (35-45); ABG PH 7.31 (7.35-7.45); ABG PO2 77 mmHg (83-108); ABG TCO2 28 mmol/L (19-24)
[2018-06-07] MEDS ORDERED: FUROSEMIDE 10 MG/ML 10 ML VIAL IV STA (22:01)
[2018-06-07] MEDS ORDERED: FUROSEMIDE 10 MG/ML 4 ML VIAL ONE (22:02)
[2018-06-07 22:05] LABS: Glucose,Whole Blood 111 mg/dL (75-99)
--- NOTE | 2018-06-07 22:42 | CT ---
EXAMINATION TYPE: CT brain wo con DATE OF EXAM: 06/07/2018 COMPARISON: 07/07/2017 HISTORY: Altered mental status CT DLP: 1226.4 mGycm Automated exposure control for dose reduction was used. FINDINGS: There is cerebral mild cortical atrophy. There is no mass effect nor midline shift. There is no sign of intracranial hemorrhage. The calvarium is intact. IMPRESSION: CEREBRAL ATROPHY. NO ACUTE INTRACRANIAL ABNORMALITY. NO CHANGE.
[2018-06-07] MEDS ORDERED: ACETAMINOPHEN IV (For NPO) 1,000 MG in EMPTY BAG 1 BAG IVPB STA (23:07)
[2018-06-07 23:59] LABS: Glucose,Whole Blood 119 mg/dL (75-99)
[2018-06-08 00:30] LABS: Basophils % (A) 0 %; Eosinophils # (A) 0.1 k/uL (0-0.7); Eosinophils % (A) 1 %; HCT 26.7 % (39.0-53.0); Lymphocytes % (A) 9 %; MCH 32.5 pg (25.0-35.0); MCHC 33.7 g/dL (31.0-37.0); MCV 96.2 fL (80.0-100.0); Mean Platelet Volume 8.1; Monocytes # (A) 0.3 k/uL (0-1.0); Monocytes % (A) 3 %; Neutrophils # (A) 9.3 k/uL (1.3-7.7); Neutrophils % (A) 86 %; Poikilocytosis Slight; RBC 2.77 m/uL (4.30-5.90); RDW 15.7 % (11.5-15.5); WBC 10.8 k/uL (3.8-10.6)
[2018-06-08 00:31] LABS: Platelet Count 84 k/uL (150-450)
[2018-06-08 00:32] LABS: Lactic Acid, Venous 0.6 mmol/L (0.7-2.0)
[2018-06-08 00:33] LABS: Calcium 7.8 mg/dL (8.4-10.2)
[2018-06-08] MEDS ORDERED: SODIUM POLYSTYRENE SULFONATE 30 GM/120 ML BOTTLE RECTAL STA (01:24)
[2018-06-08] MEDS ORDERED: SODIUM CHLORIDE 0.9% IVP SCH (01:30)
[2018-06-08] MEDS ORDERED: FUROSEMIDE IVP SCH (01:30)
[2018-06-08] MEDS: DEXTROSE 50%-WATER 50 ML SYRINGE IVP STA (01:33)
[2018-06-08] MEDS: INSULIN REGULAR 100 UNIT/ML VIAL IV ONE ×2 (01:34→01:38)
[2018-06-08] MEDS ORDERED: CALCIUM CHLORIDE 1,000 MG in SODIUM CHLORIDE 0.9% 100 ML IV ONE (01:45)
[2018-06-08] MEDS: NOREPINEPHRINE 4 MG in SODIUM CHLORIDE 0.9% 250 ML IV SCH ×2 (02:45→07:27)
[2018-06-08 03:06] LABS: Glucose,Whole Blood 234 mg/dL (75-99)
[2018-06-08] MEDS: PROPOFOL 1,000 MG in EMPTY BAG 1 BAG IV SCH ×3 (03:38→23:22)
--- NOTE | 2018-06-08 03:52 | XR ---
EXAMINATION TYPE: XR chest 1V portable DATE OF EXAM: 06/08/2018 COMPARISON: 06/07/2018 HISTORY: Check tube placement TECHNIQUE: Single frontal view of the chest is obtained. FINDINGS: Endotracheal tube is 5 cm from the loreto. There is some linear density at the left lung b ase. There is no gross heart failure. There are chest leads. IMPRESSION: There is some mild atelectasis at the left lung base. There is clearing of pulmonary vas cular congestion compared to the exam yesterday at 8:30 PM.
[2018-06-08] MEDS ORDERED: ATROPINE SULFATE 0.1 MG/ML 10ML SYRINGE IV STA (04:05)
[2018-06-08] MEDS ORDERED: NALOXONE 0.4 MG/ML 1 ML VIAL IV PRN (04:31)
[2018-06-08 04:47] LABS: ABG Base Excess 1.6 mmol/L; ABG HCO3 28 mmol/L (21-25); ABG PCO2 57 mmHg (35-45); ABG PO2 315 mmHg (83-108); ABG TCO2 30 mmol/L (19-24)
[2018-06-08 04:49] LABS: Basophils # (A) 0.1 k/uL (0-0.2); Basophils % (A) 0 %; Eosinophils # (A) 0.1 k/uL (0-0.7); Eosinophils % (A) 0 %; HCT 27.3 % (39.0-53.0); HGB 9.5 gm/dL (13.0-17.5); Lymphocytes # (A) 0.7 k/uL (1.0-4.8); Lymphocytes % (A) 4 %; MCH 32.6 pg (25.0-35.0); MCHC 34.9 g/dL (31.0-37.0); MCV 93.6 fL (80.0-100.0); Mean Platelet Volume 8.2; Monocytes # (A) 0.8 k/uL (0-1.0); Monocytes % (A) 5 %; Neutrophils # (A) 16.6 k/uL (1.3-7.7); Neutrophils % (A) 90 %; Poikilocytosis Slight; RBC 2.92 m/uL (4.30-5.90); WBC 18.4 k/uL (3.8-10.6)
[2018-06-08 04:55] LABS: Platelet Count 148 k/uL (150-450)
[2018-06-08] MEDS: FUROSEMIDE 250 MG in SODIUM CHLORIDE 0.9% 225 ML IVP SCH ×5 (05:29→07:36)
[2018-06-08 05:37] LABS: Appearance,Urine Clear (Clear); Bilirubin,Urine Negative (Negative); Blood,Urine Negative (Negative); Color,Urine Yellow; Glucose,Urine (UA) Negative (Negative); Ketones,Urine Negative (Negative); Leukocyte Esterase,Urine Negative (Negative); Mucus,Urine Rare /hpf; Nitrite,Urine Negative (Negative); Protein,Urine 2+ (Negative); Squamous Epithelial Cell,Urine <1 /hpf (0-4); Urobilinogen,Urine <2.0 mg/dL (<2.0); WBC,Urine 1 /hpf (0-5)
[2018-06-08] MEDS: SODIUM CHLORIDE 0.9% 1,000 ML IV SCH (05:38)
[2018-06-08] MEDS: PIPERACILLIN-TAZOBACTAM 3.375 GM in DEXTROSE/WATER 1 50ML.BAG IVPB SCH ×2 (06:56→15:32)
[2018-06-08 07:17] LABS: Albumin 3.4 g/dL (3.5-5.0); Calcium 8.8 mg/dL (8.4-10.2); Magnesium 2.1 mg/dL (1.6-2.3); Phosphorus 3.6 mg/dL (2.5-4.5); Potassium 4.1 mmol/L (3.5-5.1); Total Bilirubin 1.2 mg/dL (0.2-1.3); Total Protein 6.2 g/dL (6.3-8.2)
[2018-06-08] MEDS: LEVOFLOXACIN 500MG-D5W PMX 500 MG in DEXTROSE/WATER 1 100ML.BAG IVPB SCH (07:36)
[2018-06-08 08:05] LABS: Vancomycin,Random 13.8 ug/mL
--- NOTE | 2018-06-08 09:14 | P.PN ---
Subjective Progress Note Date: 06/08/18 Principal diagnosis: Acute hypoxic and hypercapnic respiratory failure secondary to underlying pneumonia This is a 57-year-old white male with history of multiple medical problems including chronic renal failure, on hemodialysis. Patient is also known to history of coronary artery disease, previous PCI, stenting of RCA 3 stents total in 2013. History of hypertension, cardiovascular disease, type 2 diabetes , diabetic neuropathy, history of alcohol abuse with associated thrombocytopenia and splenomegaly, patient had previous history of metabolic encephalopathy treated in June of 2017, history of diastolic congestive heart failure, admitted this time with mostly symptoms of generalized weakness, confusion, and change in mental status. Patient has also been complaining of some shortness of breath, chest x-ray was suggestive of interstitial edema, his BNP level was elevated, troponin was also elevated, received Lasix in the ER, and there was a significant improvement in his overall pulmonary status patient apparently diuresed significantly although he doesn't usually make much urine since he is a renal failure patient. By the time I saw the patient on consultation, he had no active pulmonary symptoms whatsoever. Patient was relatively asymptomatic, no cough no wheezing no shortness of breath. However apparently when he was admitted there was a concern that the patient may have sepsis because his lactic acid was 1.7. And he was placed empirically on antibiotics for presumptive pneumonia, although the findings on the chest x-ray and the clinical findings are mostly findings of interstitial edema. Again I strongly doubt pneumonia. During my evaluation, the patient was basically asymptomatic. He had no chest pain no cough no wheezing no fever no chills no hemoptysis and no chest pain. Troponin was noted to be a bit higher compared to the morning troponin. His BNP level was over 17,600. Reevaluated today on 06/05/2018, patient is presently on dialysis, he had 1 dialysis done last night, he continues to feel much better. Denies any shortness of breath, no cough, no wheezing, no chest pain. However the patient spiked a temp last night, he had a temp of 101.1 and his temp now is 99.7. Patient is on room air, O2 saturations 97%, blood pressure is normal 132/79. Heart rate is 76. All labs were reviewed, he does not have leukocytosis, basic metabolic profile is normal BUN is 44 creatinine is 4.78. Reviewed the chest x- ray again, clearly consistent with interstitial edema. Remind me patient had a significantly elevated BNP level on admission. Reevaluated today on 06/06/2018, had his dialysis yesterday, and 2 L of fluids were removed. Patient continues to feel better clinically, no shortness of breath no cough no wheezing. No fever no chills, no chest pain, no hemoptysis. Chest x-ray today showed definite improvement compared to previous x-rays, and clinically the patient is showing definite improvement in his room air saturation is 97%. Hemodynamically remained stable all along since admission. Patient was reevaluated today on 06/07/2018, feels great, basically asymptomatic. Denies any shortness of breath, no cough, no wheezing, no fever, no chills, no hemoptysis, no nausea no vomiting no abdominal pain. His last hemodialysis was on Friday. I believe he would have another dialysis tomorrow. Pulmonary-cast the patient is doing great. Labs were reviewed WBC count is 4.5 hemoglobin is 7.9. His BUN is 54 creatinine is 5.98. Potassium is a bit elevated at 5.6. Patient was seen by cardiology today, and advised to continue current medical regimen, advised to continue beta blockers, patient did have acute non-ST elevation myocardial infarction on admission. On 06/08/2018 patient seen in the intensive care unit. Sometime at midnight on 06/08/2018 there was a rapid response team called for a concern of respiratory distress, and acute hypoxemic and hypercapnic respiratory failure. Was emergently intubated, and this morning patient is seen intubated, sedated, on mechanical ventilator. Current IV fluids are 0.9 normal saline at a rate of 25 ML per hour, levofed at 20 mics per minute, Diprivan and is at 25 mcg/kg/min. patient had emergent hemodialysis last night, would removal of 300 mL of fluid. And was not given any IV boluses in view of his acute on chronic renal failure. This morning blood work has been reviewed, there has been acute elevation of white blood count, to 18.4, hemoglobin is 9.5, electrolytes were within normal limits, there has been improvement in his renal profile, BUN was down to 33, creatinine is down to 3.64, patient is making small amounts of urine , in the range of 5-10 ML per hour. Antibiotic coverage includes Zosyn, Levaquin and vancomycin. Blood and urine cultures were collected, and showed no growth. he has some thick yellow sputum being suctioned from the ET tube. Today's chest x-ray has been reviewed by Dr. Otoole, and showed left lower lobe infiltrate. This morning's blood gas has been reviewed, and showed pO2 of 3:15 , pCO2 57, pH of 7.30, this was done on settings of assist control mode with a rate of 16, tidal volume of 360, FiO2 of 100%, and PEEP of 5. FiO2 was dropped down to 50%. We will make further adjustments to the vent settings we will increase the rate to 24, tidal volume decreased to 450, FiO2 50% and PEEP of 5. Patient's spouse is at the bedside, her rash was to continue with full code, and supportive treatment. Objective - Vital Signs Vital signs: Vital Signs Temp 98.1 F 06/08/18 03:00 Pulse 57 L 06/08/18 07:00 Resp 20 06/08/18 07:00 BP 142/48 06/08/18 07:00 Pulse Ox 95 06/08/18 07:00 Intake & Output 06/07/18 06/08/18 06/08/18 18:59 06:59 18:59 Intake Total 200 359.062 202.388 Output Total 440 310 Balance 200 -80.938 -107.612 Weight 94.97 kg Intake: IV 140 20 Sodium Chloride 0.9% 1, 140 20 000 ml @ 20 mls/hr IV . Q24H NATHAN Rx#:[id number] Intake, IV Titration 219.062 182.388 Amount Furosemide 250 mg In 30 Sodium Chloride 0.9% 225 ml @ 200 MG/HR 200 mls/hr IVP .Q1H15M NATHAN Rx#: [id number] Norepinephrine 4 mg In 189.062 162.188 Sodium Chloride 0.9% 250 ml @ Titrate IV .Q0M NATHAN Rx#:[id number] Propofol 1,000 mg In 20.2 Empty Bag 1 bag @ Titrate IV .Q0M NATHAN Rx#: [id number] Oral 200 Output: Urine 440 10 Other 300 Other: Voiding Method Urinal Indwelling Catheter - Exam GENERAL EXAM: Intubated, sedated, 57-year-old white male in no apparent distress. HEAD: Normocephalic/atraumatic. EYES: Normal reaction of pupils, equal size. Conjunctiva pink, sclera white. NOSE: Clear with pink turbinates. THROAT: No erythema or exudates. NECK: No masses, no JVD, no thyroid enlargement, no adenopathy. CHEST: No chest wall deformity. Symmetrical expansion. LUNGS: Equal air entry with no crackles, wheeze, rhonchi or dullness. CVS: Regular rate and rhythm, normal S1 and S2, no gallops, no murmurs, no rubs ABDOMEN: Soft, nontender. No hepatosplenomegaly, normal bowel sounds, no guarding or rigidity. EXTREMITIES: No clubbing, no edema, no cyanosis, 2+ pulses and upper and lower extremities. MUSCULOSKELETAL: Muscle strength and tone normal. SPINE: No scoliosis or deformity SKIN: No rashes CENTRAL NERVOUS SYSTEM: Intubated, and sedated. No focal deficits, tone is normal in all 4 extremities. PSYCHIATRIC: Unable to assess, patient is intubated. - Labs CBC & Chem 7: 06/08/18 04:35 06/08/18 05:00 Labs: Abnormal Lab Results - Last 24 Hours (Table) 06/07/18 06/07/18 06/07/18 Range/Units 11:39 16:42 20:49 WBC (3.8-10.6) k/uL RBC (4.30-5.90) m/uL Hgb (13.0-17.5) gm/dL Hct (39.0-53.0) % RDW (11.5-15.5) % Plt Count (150-450) k/uL Neutrophils # (1.3-7.7) k/uL Lymphocytes # (1.0-4.8) k/uL ABG pH (7.35-7.45) ABG pCO2 (35-45) mmHg ABG pO2 (83-108) mmHg ABG HCO3 (21-25) mmol/L ABG Total CO2 (19-24) mmol/L ABG O2 Saturation (94-97) % Sodium (137-145) mmol/L Potassium (3.5-5.1) mmol/L BUN (9-20) mg/dL Creatinine (0.66-1.25) mg/dL Glucose (74-99) mg/dL POC Glucose (mg/dL) 144 H 105 H 113 H (75-99) mg/dL Plasma Lactic Acid Wicho (0.7-2.0) mmol/L Calcium (8.4-10.2) mg/dL Total Protein (6.3-8.2) g/dL Albumin (3.5-5.0) g/dL Urine Protein (Negative) Urine Mucus (None) /hpf 06/07/18 06/07/18 06/07/18 Range/Units 21:34 21:44 23:47 WBC (3.8-10.6) k/uL RBC (4.30-5.90) m/uL Hgb (13.0-17.5) gm/dL Hct (39.0-53.0) % RDW (11.5-15.5) % Plt Count (150-450) k/uL Neutrophils # (1.3-7.7) k/uL Lymphocytes # (1.0-4.8) k/uL ABG pH 7.31 L (7.35-7.45) ABG pCO2 53 H (35-45) mmHg ABG pO2 77 L (83-108) mmHg ABG HCO3 27 H (21-25) mmol/L ABG Total CO2 28 H (19-24) mmol/L ABG O2 Saturation (94-97) % Sodium (137-145) mmol/L Potassium (3.5-5.1) mmol/L BUN (9-20) mg/dL Creatinine (0.66-1.25) mg/dL Glucose (74-99) mg/dL POC Glucose (mg/dL) 111 H 119 H (75-99) mg/dL Plasma Lactic Acid Wicho (0.7-2.0) mmol/L Calcium (8.4-10.2) mg/dL Total Protein (6.3-8.2) g/dL Albumin (3.5-5.0) g/dL Urine Protein (Negative) Urine Mucus (None) /hpf 06/08/18 06/08/18 06/08/18 Range/Units 00:12 00:12 00:12 WBC 10.8 H (3.8-10.6) k/uL RBC 2.77 L (4.30-5.90) m/uL Hgb 9.0 L (13.0-17.5) gm/dL Hct 26.7 L (39.0-53.0) % RDW 15.7 H (11.5-15.5) % Plt Count 84 L (150-450) k/uL Neutrophils # 9.3 H (1.3-7.7) k/uL Lymphocytes # (1.0-4.8) k/uL ABG pH (7.35-7.45) ABG pCO2 (35-45) mmHg ABG pO2 (83-108) mmHg ABG HCO3 (21-25) mmol/L ABG Total CO2 (19-24) mmol/L ABG O2 Saturation (94-97) % Sodium 135 L (137-145) mmol/L Potassium 8.0 H* (3.5-5.1) mmol/L BUN 71 H (9-20) mg/dL Creatinine 7.62 H* (0.66-1.25) mg/dL Glucose 114 H (74-99) mg/dL POC Glucose (mg/dL) (75-99) mg/dL Plasma Lactic Acid Wicho 0.6 L (0.7-2.0) mmol/L Calcium 7.8 L (8.4-10.2) mg/dL Total Protein (6.3-8.2) g/dL Albumin (3.5-5.0) g/dL Urine Protein (Negative) Urine Mucus (None) /hpf 06/08/18 06/08/18 06/08/18 Range/Units 02:45 03:00 04:25 WBC (3.8-10.6) k/uL RBC (4.30-5.90) m/uL Hgb (13.0-17.5) gm/dL Hct (39.0-53.0) % RDW (11.5-15.5) % Plt Count (150-450) k/uL Neutrophils # (1.3-7.7) k/uL Lymphocytes # (1.0-4.8) k/uL ABG pH 7.30 L (7.35-7.45) ABG pCO2 57 H (35-45) mmHg ABG pO2 315 H (83-108) mmHg ABG HCO3 28 H (21-25) mmol/L ABG Total CO2 30 H (19-24) mmol/L ABG O2 Saturation 100.0 H (94-97) % Sodium (137-145) mmol/L Potassium 6.0 H (3.5-5.1) mmol/L BUN (9-20) mg/dL Creatinine (0.66-1.25) mg/dL Glucose (74-99) mg/dL POC Glucose (mg/dL) 234 H (75-99) mg/dL Plasma Lactic Acid Wicho (0.7-2.0) mmol/L Calcium (8.4-10.2) mg/dL Total Protein (6.3-8.2) g/dL Albumin (3.5-5.0) g/dL Urine Protein (Negative) Urine Mucus (None) /hpf 06/08/18 06/08/18 06/08/18 Range/Units 04:35 05:00 05:18 WBC 18.4 H (3.8-10.6) k/uL RBC 2.92 L (4.30-5.90) m/uL Hgb 9.5 L (13.0-17.5) gm/dL Hct 27.3 L (39.0-53.0) % RDW 16.0 H (11.5-15.5) % Plt Count 148 L D (150-450) k/uL Neutrophils # 16.6 H (1.3-7.7) k/uL Lymphocytes # 0.7 L (1.0-4.8) k/uL ABG pH (7.35-7.45) ABG pCO2 (35-45) mmHg ABG pO2 (83-108) mmHg ABG HCO3 (21-25) mmol/L ABG Total CO2 (19-24) mmol/L ABG O2 Saturation (94-97) % Sodium (137-145) mmol/L Potassium (3.5-5.1) mmol/L BUN 33 H (9-20) mg/dL Creatinine 3.64 H (0.66-1.25) mg/dL Glucose 124 H (74-99) mg/dL POC Glucose (mg/dL) (75-99) mg/dL Plasma Lactic Acid Wicho (0.7-2.0) mmol/L Calcium (8.4-10.2) mg/dL Total Protein 6.2 L (6.3-8.2) g/dL Albumin 3.4 L (3.5-5.0) g/dL Urine Protein 2+ H (Negative) Urine Mucus Rare H (None) /hpf Microbiology - Last 24 Hours (Table) 06/04/18 01:10 Blood Culture - Preliminary Blood No Growth after 96 hours Assessment and Plan Plan: Assessment: 1 acute pulmonary edema, most likely secondary to fluid overload secondary to chronic renal failure, and secondary to systolic dysfunction, his ejection fraction on the echocardiogram showed 30%. Significant anteroseptal hypokinesis noted. 2 possibility of pneumonia is not entirely ruled out, especially with elevated pro calcitonin level hence would recommend we continue antibiotics. 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 8 end-stage renal disease, on hemodialysis. 9 type 2 diabetes 10 hyperkalemia secondary to renal failure, patient apparently has been noncompliant with dialysis. Nephrology is following. 11 acute non-ST elevation myocardial infarction Plan: Continue current antibiotic coverage, we'll give the patient 2 L of data Ringer' s and IV boluses. We will wean levofed. Vent adjustments were made, patient is now on assist-control mode with a rate of 24, tidal volume of 450, FiO2 50% and PEEP of 5. Today's chest x-ray showed left lower lobe infiltrate. We'll obtain a sputum sample for cultures. Tinea current antibiotic coverage including Zosyn, levothyroid and vancomycin. We'll recheck a blood gas and 30- 35 minutes after the event changes. Patient will need an arterial line and central line placed this morning. Patient's spouse was updated on condition. We'll consult dietary for tube feeding recommendation. I performed a history & physical examination of the patient and discussed their management with my nurse practitioner, Yumiko Matta. I reviewed the nurse practitioner's note and agree with the documented findings and plan of care. Lung sounds are positive for coarse sounds. The findings and the impression was discussed with the patient. I attest to the documentation by the nurse practitioner. Time with Patient: Greater than 30
[2018-06-08 09:20] LABS: Glucose,Whole Blood 155 mg/dL (75-99)
[2018-06-08] MEDS ORDERED: CISATRACURIUM 2 MG/ML 5 ML VIAL IV ONE (09:35)
--- NOTE | 2018-06-08 10:18 | XR ---
EXAMINATION TYPE: XR chest 1V confirm line [facility] DATE OF EXAM: 06/08/2018 COMPARISON: Prior chest x-ray same date earlier time HISTORY: Interval central venous catheter placement TECHNIQUE: frontal view of the chest is obtained on 2 images. FINDINGS: Endotracheal tube is overlying appropriate position. There is a left jugular central venou s catheter with the distal tip overlying the right atrium. No evident pneumothorax. Bilateral airspac e disease is suspected. Patient is rotated, this may be causing accentuation in the appearance of the heart. IMPRESSION: Correlate for pneumonia versus pulmonary edema. No evident complication status post cent ral venous catheter placement.
--- NOTE | 2018-06-08 10:26 | PCN ---
PROCEDURE NOTE ARTERIAL LINE PLACEMENT: Indications: Hemodynamic monitoring. A time-out was completed verifying correct patient, procedure, site, positioning, and implant(s) or special equipment if applicable. Jesus Manuel's test was performed to ensure adequate perfusion. The patient's right wrist was prepped and draped in sterile fashion. 1% Lidocaine was used to anesthetize the area. An 18G Arrow arterial line was introduced into the right radial artery. The catheter was threaded over the guide wire and the needle was removed with appropriate pulsatile blood return. Blood loss was minimal. The catheter was then sutured in place to the skin and a sterile dressing applied. Perfusion to the extremity distal to the point of catheter insertion was checked and found to be adequate. The patient tolerated the procedure well and there were no complications. Right radial arterial line placed without immediate complications, waveform was noted, line was flushed. It was then sutured in place. MMODL / IJN: [id number] /
--- NOTE | 2018-06-08 10:32 | PCN ---
PROCEDURE NOTE TRIPLE LUMEN CATHETER PLACEMENT: PROCEDURE: Left internal jugular triple lumen catheter. Indication: Hemodynamic monitoring/Intravenous access. A time-out was completed verifying correct patient, procedure, site, positioning, and implant(s) or special equipment if applicable. The patient was placed in a dependent position appropriate for triple lumen catheter placement based on the vein to be cannulated. The patient's left neck was prepped and draped in sterile fashion. 1% Lidocaine was used to anesthetize the surrounding skin area. A triple lumen 9F Cordis catheter was introduced into the internal jugular vein using Seldinger technique. The catheter was threaded smoothly over the guide wire and appropriate blood return was obtained. Each lumen of the catheter was evacuated of air and flushed with sterile saline. The catheter was then sutured in place to the skin and a sterile dressing applied. Perfusion to the extremity distal to the point of catheter insertion was checked and found to be adequate. There was no immediate complication. There was good blood return from all 3 ports. The catheter was sutured in place. Sterile dressing was applied by the nurse. A chest x-ray was ordered to check placement. Again, no immediate complication. The patient tolerated the procedure well. MMODL / IJN: [id number] /
[2018-06-08 10:35] LABS: ABG Base Excess -0.8 mmol/L; ABG HCO3 24 mmol/L (21-25); ABG PCO2 41 mmHg (35-45); ABG PH 7.39 (7.35-7.45); ABG PO2 128 mmHg (83-108); ABG TCO2 26 mmol/L (19-24)
[2018-06-08] MEDS: CHLORHEXIDINE GLUCONATE 15 ML CUP MUCOUS MEM SCH ×2 (11:05→21:25)
[2018-06-08] MEDS: PANTOPRAZOLE 40 MG TABLET PO SCH (11:05)
[2018-06-08] MEDS: guaiFENesin 600 MG TABLET.ER PO SCH ×2 (11:08→21:30)
[2018-06-08] MEDS: CALCIUM ACETATE 667 MG CAP PO SCH ×3 (11:09→19:05)
[2018-06-08] MEDS: CHOLECALCIFEROL 1,000 UNIT TAB PO SCH (11:09)
[2018-06-08] MEDS: SPIRONOLACTONE 25 MG TAB PO SCH (11:10)
[2018-06-08] MEDS: hydrALAZINE HCL 50 MG TAB PO SCH ×3 (11:10→21:27)
[2018-06-08] MEDS: METOPROLOL TARTRATE 50 MG TAB PO SCH ×2 (11:10→21:24)
[2018-06-08] MEDS: FAMOTIDINE 20 MG TAB PO SCH (11:10)
[2018-06-08] MEDS: ISOSORBIDE MONONITRATE ER 30 MG TAB.ER.24H PO SCH (11:10)
[2018-06-08] MEDS: INSULIN DETEMIR 100 UNIT/ML 10 ML VIAL SQ SCH (11:10)
[2018-06-08] MEDS: MORPHINE SULFATE ER 30 MG TABLET PO SCH ×2 (11:14→11:44)
[2018-06-08] MEDS: DILTIAZEM CD 180 MG CAP.ER.24H PO SCH (11:17)
[2018-06-08] MEDS: INSULIN ASPART 100 UNIT/ML 1 ML 10 ML VIAL SQ SCH ×3 (11:17→19:05)
[2018-06-08] MEDS: amLODIPine 5 MG TAB PO SCH ×2 (11:18→21:23)
[2018-06-08] MEDS: LACTULOSE 20 GM/30 ML CUP PO SCH ×2 (11:22→21:25)
[2018-06-08] MEDS ORDERED: VANCOMYCIN 1,500 MG in SODIUM CHLORIDE 0.9% 250 ML IVPB ONE (12:00)
[2018-06-08] MEDS: ARIPiprazole 5 MG TAB PO SCH (12:29)
[2018-06-08] MEDS: BUMETANIDE 1 MG TAB PO SCH (12:30)
[2018-06-08 12:31] LABS: Glucose,Whole Blood 159 mg/dL (75-99)
[2018-06-08] MEDS: NOREPINEPHRINE 16 MG in SODIUM CHLORIDE 0.9% 250 ML IV SCH (12:41)
--- NOTE | 2018-06-08 14:05 | P.PN ---
Subjective This is a 57 Year-Old male one of patient with a previous medical history significant for CAD post PCI and stenting of the RCA x3 stents 2013. 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 Last admitted June 2017 for metabolic encephalopathy and acute hypoxic hypercarbic respiratory failure secondary to acute diastolic heart failure and hypercarbia for which patient was briefly intubated. Sepsis was ruled out during the last admission. Patient comes at this time with increased generalized weakness associated with change in mental status. Patient does complain of some cough and shortness of breath with sputum production. Most of the history is provided by the family at bedside as patient is not able to give any history. He did have 3 suspected skin cancer removed for biopsy by Dr. Myers but was feeling unwell for past 2 days. Patient missed dialysis yesterday due to the weakness. He usually gets it at Friday and Friday. In the ER patient was found to have a fever of 103 pulse rate of 125, respiratory rate 32, blood pressure 183/81. Labs obtained in the ER suggested leukocyte of 8.6 chronic thrombocytopenia with platelets 52, INR 1.1, potassium 6.7, creatinine 5.42, glucose 233 calcium 8, total bilirubin 1.4 initial troponin 0.651 which increased to 2.6. Lactate is 1.7 Patient was evaluated by cardiology in the ER was suggested that the increase in troponin been related to sepsis. Echocardiogram has been ordered. Chest x-ray done in the ER concerning for interstitial infiltrate concerning for pneumonia. Patient has already received 1 dose of vancomycin and Levaquin dose adjusted to kidney functions. Due to patient's end-stage renal disease patient would not be able to get any fluid boluses or at maintainance. Pro- calcitonin ordered. Mycoplasma and urinary legionella ordered. Patient is admitted for sepsis secondary to community-acquired pneumonia with possible volume overload and hypercarbia causing change in mental status. 06/05: Patient lying in bed with Dialysis at bedside. Patient did get up and walk around today but states he was Short of breath when returning to bed. Patient continues with SOB with exertion and fatigue. Patient has a history of anemia, thrombocytopenia and Hgb decreased to 7.6. Patient does complain of bilateral abdominal pain. 06/06: patient is sitting at the edge of he bed eating breakfast, feeling a bit better, no fever or chills, no abdominal pain, still short of breath with activity,we will continue to monitor hgb very closely. 06/07: Patient is laying down in bed he is complain of constipation we will start him on lactulose 30 mL twice every day, patient was instructed to use the CPAP while he is sleeping because of his deep sleep, he denies any chest pain he is less short of breath, we'll continue to monitor the patient very closely. 06/08: Last night around midnight, rapid response team was called to the patients bedside due to respiratory distress, hypoxia, and respiratory failure. The patient was intubated. He also underwent emergent hemodialysis. This morning , patient remains intubated and sedated, he remains on Levofed. Settings are rate of 24, tidal volume 450, Fi02 of 50% and PEEP of 5. This morning, labs reveal an elevated of white blood cell count 18.4, Hbg 9.5, Cr 3.64 and BUN 33, blood gas Po2 128, Pco2 41, PH 7.39. He remain on Zosyn, Levaquin and vancomycin. Blood cultures show no growth to date. Repeat chest xray showed some clearing of pulmonary vascular congestion. Objective - Vital Signs Vital signs: Vital Signs Temp 98.1 F 06/08/18 03:00 Pulse 57 L 06/08/18 07:00 Resp 20 06/08/18 07:00 BP 142/48 06/08/18 07:00 Pulse Ox 95 06/08/18 07:00 Intake & Output 06/07/18 06/08/18 06/08/18 18:59 06:59 18:59 Intake Total 200 359.062 202.388 Output Total 440 310 Balance 200 -80.938 -107.612 Weight 94.97 kg Intake: IV 140 20 Sodium Chloride 0.9% 1, 140 20 000 ml @ 20 mls/hr IV . Q24H [facility] Rx#:[id number] Intake, IV Titration 219.062 182.388 Amount Furosemide 250 mg In 30 Sodium Chloride 0.9% 225 ml @ 200 MG/HR 200 mls/hr IVP .Q1H15M [facility] Rx#: [id number] Norepinephrine 4 mg In 189.062 162.188 Sodium Chloride 0.9% 250 ml @ Titrate IV .Q0M [facility] Rx#:[id number] Propofol 1,000 mg In 20.2 Empty Bag 1 bag @ Titrate IV .Q0M [facility] Rx#: [id number] Oral 200 Output: Urine 440 10 Other 300 Other: Voiding Method Urinal Indwelling Catheter - Constitutional Constitutional Comment(s): Intubated General appearance: Present: no acute distress - EENT Eyes: Present: PERRLA, normal appearance - Respiratory Respiratory: bilateral: CTA, negative: rales, rhonchi, wheezing - Cardiovascular Heart sounds: normal: S1, S2 - Gastrointestinal General gastrointestinal: Present: normal bowel sounds, soft. Absent: distended , hepatomegaly, organomegaly, tenderness - Neurologic Neurologic Comment(s): Patient is intubated and sedated Neurologic: Absent: focal deficits - Musculoskeletal Musculoskeletal Comment(s): intubated and sedated - Labs CBC & Chem 7: 06/08/18 04:35 06/08/18 05:00 Labs: Abnormal Lab Results - Last 24 Hours (Table) 06/07/18 06/07/18 06/07/18 Range/Units 11:39 16:42 20:49 WBC (3.8-10.6) k/uL RBC (4.30-5.90) m/uL Hgb (13.0-17.5) gm/dL Hct (39.0-53.0) % RDW (11.5-15.5) % Plt Count (150-450) k/uL Neutrophils # (1.3-7.7) k/uL Lymphocytes # (1.0-4.8) k/uL ABG pH (7.35-7.45) ABG pCO2 (35-45) mmHg ABG pO2 (83-108) mmHg ABG HCO3 (21-25) mmol/L ABG Total CO2 (19-24) mmol/L ABG O2 Saturation (94-97) % Sodium (137-145) mmol/L Potassium (3.5-5.1) mmol/L BUN (9-20) mg/dL Creatinine (0.66-1.25) mg/dL Glucose (74-99) mg/dL POC Glucose (mg/dL) 144 H 105 H 113 H (75-99) mg/dL Plasma Lactic Acid Wihco (0.7-2.0) mmol/L Calcium (8.4-10.2) mg/dL Total Protein (6.3-8.2) g/dL Albumin (3.5-5.0) g/dL Urine Protein (Negative) Urine Mucus (None) /hpf 06/07/18 06/07/18 06/07/18 Range/Units 21:34 21:44 23:47 WBC (3.8-10.6) k/uL RBC (4.30-5.90) m/uL Hgb (13.0-17.5) gm/dL Hct (39.0-53.0) % RDW (11.5-15.5) % Plt Count (150-450) k/uL Neutrophils # (1.3-7.7) k/uL Lymphocytes # (1.0-4.8) k/uL ABG pH 7.31 L (7.35-7.45) ABG pCO2 53 H (35-45) mmHg ABG pO2 77 L (83-108) mmHg ABG HCO3 27 H (21-25) mmol/L ABG Total CO2 28 H (19-24) mmol/L ABG O2 Saturation (94-97) % Sodium (137-145) mmol/L Potassium (3.5-5.1) mmol/L BUN (9-20) mg/dL Creatinine (0.66-1.25) mg/dL Glucose (74-99) mg/dL POC Glucose (mg/dL) 111 H 119 H (75-99) mg/dL Plasma Lactic Acid Wicho (0.7-2.0) mmol/L Calcium (8.4-10.2) mg/dL Total Protein (6.3-8.2) g/dL Albumin (3.5-5.0) g/dL Urine Protein (Negative) Urine Mucus (None) /hpf 06/08/18 06/08/18 06/08/18 Range/Units 00:12 00:12 00:12 WBC 10.8 H (3.8-10.6) k/uL RBC 2.77 L (4.30-5.90) m/uL Hgb 9.0 L (13.0-17.5) gm/dL Hct 26.7 L (39.0-53.0) % RDW 15.7 H (11.5-15.5) % Plt Count 84 L (150-450) k/uL Neutrophils # 9.3 H (1.3-7.7) k/uL Lymphocytes # (1.0-4.8) k/uL ABG pH (7.35-7.45) ABG pCO2 (35-45) mmHg ABG pO2 (83-108) mmHg ABG HCO3 (21-25) mmol/L ABG Total CO2 (19-24) mmol/L ABG O2 Saturation (94-97) % Sodium 135 L (137-145) mmol/L Potassium 8.0 H* (3.5-5.1) mmol/L BUN 71 H (9-20) mg/dL Creatinine 7.62 H* (0.66-1.25) mg/dL Glucose 114 H (74-99) mg/dL POC Glucose (mg/dL) (75-99) mg/dL Plasma Lactic Acid Wicho 0.6 L (0.7-2.0) mmol/L Calcium 7.8 L (8.4-10.2) mg/dL Total Protein (6.3-8.2) g/dL Albumin (3.5-5.0) g/dL Urine Protein (Negative) Urine Mucus (None) /hpf 06/08/18 06/08/18 06/08/18 Range/Units 02:45 03:00 04:25 WBC (3.8-10.6) k/uL RBC (4.30-5.90) m/uL Hgb (13.0-17.5) gm/dL Hct (39.0-53.0) % RDW (11.5-15.5) % Plt Count (150-450) k/uL Neutrophils # (1.3-7.7) k/uL Lymphocytes # (1.0-4.8) k/uL ABG pH 7.30 L (7.35-7.45) ABG pCO2 57 H (35-45) mmHg ABG pO2 315 H (83-108) mmHg ABG HCO3 28 H (21-25) mmol/L ABG Total CO2 30 H (19-24) mmol/L ABG O2 Saturation 100.0 H (94-97) % Sodium (137-145) mmol/L Potassium 6.0 H (3.5-5.1) mmol/L BUN (9-20) mg/dL Creatinine (0.66-1.25) mg/dL Glucose (74-99) mg/dL POC Glucose (mg/dL) 234 H (75-99) mg/dL Plasma Lactic Acid Wicho (0.7-2.0) mmol/L Calcium (8.4-10.2) mg/dL Total Protein (6.3-8.2) g/dL Albumin (3.5-5.0) g/dL Urine Protein (Negative) Urine Mucus (None) /hpf 06/08/18 06/08/18 06/08/18 Range/Units 04:35 05:00 05:18 WBC 18.4 H (3.8-10.6) k/uL RBC 2.92 L (4.30-5.90) m/uL Hgb 9.5 L (13.0-17.5) gm/dL Hct 27.3 L (39.0-53.0) % RDW 16.0 H (11.5-15.5) % Plt Count 148 L D (150-450) k/uL Neutrophils # 16.6 H (1.3-7.7) k/uL Lymphocytes # 0.7 L (1.0-4.8) k/uL ABG pH (7.35-7.45) ABG pCO2 (35-45) mmHg ABG pO2 (83-108) mmHg ABG HCO3 (21-25) mmol/L ABG Total CO2 (19-24) mmol/L ABG O2 Saturation (94-97) % Sodium (137-145) mmol/L Potassium (3.5-5.1) mmol/L BUN 33 H (9-20) mg/dL Creatinine 3.64 H (0.66-1.25) mg/dL Glucose 124 H (74-99) mg/dL POC Glucose (mg/dL) (75-99) mg/dL Plasma Lactic Acid Wicho (0.7-2.0) mmol/L Calcium (8.4-10.2) mg/dL Total Protein 6.2 L (6.3-8.2) g/dL Albumin 3.4 L (3.5-5.0) g/dL Urine Protein 2+ H (Negative) Urine Mucus Rare H (None) /hpf 06/08/18 Range/Units 09:08 WBC (3.8-10.6) k/uL RBC (4.30-5.90) m/uL Hgb (13.0-17.5) gm/dL Hct (39.0-53.0) % RDW (11.5-15.5) % Plt Count (150-450) k/uL Neutrophils # (1.3-7.7) k/uL Lymphocytes # (1.0-4.8) k/uL ABG pH (7.35-7.45) ABG pCO2 (35-45) mmHg ABG pO2 (83-108) mmHg ABG HCO3 (21-25) mmol/L ABG Total CO2 (19-24) mmol/L ABG O2 Saturation (94-97) % Sodium (137-145) mmol/L Potassium (3.5-5.1) mmol/L BUN (9-20) mg/dL Creatinine (0.66-1.25) mg/dL Glucose (74-99) mg/dL POC Glucose (mg/dL) 155 H (75-99) mg/dL Plasma Lactic Acid Wciho (0.7-2.0) mmol/L Calcium (8.4-10.2) mg/dL Total Protein (6.3-8.2) g/dL Albumin (3.5-5.0) g/dL Urine Protein (Negative) Urine Mucus (None) /hpf Microbiology - Last 24 Hours (Table) 06/04/18 01:10 Blood Culture - Preliminary Blood No Growth after 96 hours Assessment and Plan Plan: #1 acute hypoxic respiratory failure likely secondary to pneumonia with the possibility include volume overload. BNP elevated. Echocardiogram decreased to 30-35%. Patient currently intubated and sedated with propofol, remains on norepinephrine. Patient has poor compliance and has been intubated briefly in the past because of his hypoxia and hypercarbia. Pulmonary consulted due to patient's increased morbidity and poor compliance. #2 sepsis secondary to Multifocal pneumonia/interstitial pneumonia. Mycoplasma negative. Waiting for Legionella urinary antigen results. Continue patient on levofloxacin, vancomycin and Zosyn. Avoid IV fluids as patient is in volume overload from end-stage kidney disease. Lactic acid is normal. Continue DuoNeb for breathing treatments. Tylenol for fever. Status post fluid bolus in the ER. Pro-calcitonin positive. Consult ordered for Infectious Diseases. #3 troponinemia likely secondary to end-stage renal disease no coronary artery disease cannot be ruled out. EKG with no signs of ST changes. Troponin 3 ordered patient has no history of coronary artery disease. Echocardiogram decreased to 30-35%. Cardiology consult #4 hyperkalemia secondary to noncompliance to dialysis. Status post sodium bicarb and insulin. Repeat potassium 4.1. Continue with Dialysis. #5 metabolic encephalopathy likely secondary to sepsis with possible hypercarbia. Patient was briefly on BiPAP currently on 4 L of nasal cannula, currently intubated. #6 type 2 diabetes insulin-dependent continue levemer there 27 units daily with 9 units with meals. Sliding scale ordered. #7 chronic diastolic heart failure. Echocardiogram decreased and pending cardiology consult. Monitor input and output. Daily weights. Continue patient on Bumex 4 mg in the morning and 2 mg at bedtime. Continue diltiazem 180 mg by mouth daily , continue metoprolol and 50 mg twice a day . Lisinopril 20 mg by mouth twice a day #8 diabetic neuropathy continue Lyrica at 50 mg bedtime #9 End stage renal disease on hemodialysis Friday. Continue PhosLo. Nephrology on consult, underwent emergent dialysis last night. #10 MONTSE noncompliant to CPAP #11 CAD status post PCI to the RCA. Continue aspirin 81 mg Lipitor 80 mg by mouth daily continue metoprolol 150 mg twice a day, diltiazem 180 mg daily #12 thrombocytopenia with splenomegaly which is alcohol induced. It is chronically low. Watch for medications that can drop the platelets will hold anticoagulation therapy #13 anxiety, depression continue Abilify #14 peripheral artery disease continue aspirin watch for platelet drop. Repeat CBC tomorrow #15 degenerative disc disease of cervical spine status post-ACDF continue [place] and MS Contin #16 DVT prophylaxis with mechanical prophylaxis knee-high RYAN hose #17 GI prophylaxis continue with PPIs #18 chronic Anemia related to iron deficency- iron profile ordered. #[address] with no contrast showed splenomegaly with collateral blood vessels at the upper abdomen with small right sided pleural effusion. #20. PT evaluation. The above impression and plan of care have been discussed and directed by signing physician. Delilah Rodriguez nurse practitioner acting as scribe for signing physician.
--- NOTE | 2018-06-08 15:08 | P.PN ---
Subjective Progress Note Date: 06/08/18 This is a pleasant 57-year-old gentleman with history of end-stage renal disease on hemodialysis, hypertension, insulin requiring diabetes, CAD with prior stenting. He follows with a human relations teacher out of [facility]. He presented to the hospital primary complaining of not feeling well overall mild confusion and fever. We were asked to the patient in consultation due to elevated troponin with initial troponin of 0.651 second troponin 2.6 and third troponin 3.5. Patient was initially febrile. Hemoglobin is improved at 9.0 and platelet count is 84 heparin; and anti-platelets have been avoided. Started the patient on oral nitrates. Echocardiogram with Doppler came back to show an ejection fraction of 30-35% with anterior septal, inferior and septal hypokinesis. Sometime through the night, rapid response team was called for this patient due to respiratory distress, acute hypoxemic and hypercapnic respiratory failure. Patient was bradycardic. CODE BLUE was called. Patient was emergently intubated. Upon examination, patient remains sedated on propofol. Blood pressure and heart rate are currently stable at the moment. He remains on Levophed. Beta blockers were held this morning. Objective - Vital Signs Vital signs: Vital Signs Temp 97.7 F 06/08/18 12:00 Pulse 58 L 06/08/18 14:00 Resp 24 06/08/18 14:00 BP 117/49 06/08/18 09:00 Pulse Ox 100 06/08/18 14:00 Intake & Output 06/07/18 06/08/18 06/08/18 18:59 06:59 18:59 Intake Total 200 887.002 8449.428 Output Total 440 555 Balance 200 -80.938 1966.428 Weight 94.97 kg 101.1 kg Intake: IV 140 2160 LR 2000 Sodium Chloride 0.9% 1, 140 160 000 ml @ 20 mls/hr IV . Q24H [facility] Rx#:[id number] Intake, IV Titration 219.062 361.428 Amount Furosemide 250 mg In 30 Sodium Chloride 0.9% 225 ml @ 200 MG/HR 200 mls/hr IVP .Q1H15M [facility] Rx#: [id number] Norepinephrine 4 mg In 189.062 281.188 Sodium Chloride 0.9% 250 ml @ Titrate IV .Q0M [facility] Rx#:[id number] Propofol 1,000 mg In 80.24 Empty Bag 1 bag @ Titrate IV .Q0M [facility] Rx#: [id number] Oral 200 Output: Urine 440 255 Other 300 Other: Voiding Method Urinal Indwelling Catheter ABP, PAP, CO, CI - Last Documented Arterial Blood Pressure 89/49 - Exam PHYSICAL EXAMINATION: HEENT: Head is atraumatic, normocephalic. Neck is supple. There is no elevated jugular venous pressure. HEART EXAMINATION: Heart sounds regular, S1 and S2 normal. No murmur or gallop heard. CHEST EXAMINATION: Lungs reveal diminished air entry throughout with crackles noted to right lower lobe. ABDOMEN: Soft, nontender. Bowel sounds are heard. No organomegaly noted. EXTREMITIES: 2+ peripheral pulses with no evidence of peripheral edema and no calf tenderness noted. Left upper arm AV fistula noted. NEUROLOGIC patient is sedated . - Labs CBC & Chem 7: 06/08/18 04:35 06/08/18 05:00 Labs: Abnormal Lab Results - Last 24 Hours (Table) 06/07/18 06/07/18 06/07/18 Range/Units 16:42 20:49 21:34 WBC (3.8-10.6) k/uL RBC (4.30-5.90) m/uL Hgb (13.0-17.5) gm/dL Hct (39.0-53.0) % RDW (11.5-15.5) % Plt Count (150-450) k/uL Neutrophils # (1.3-7.7) k/uL Lymphocytes # (1.0-4.8) k/uL ABG pH 7.31 L (7.35-7.45) ABG pCO2 53 H (35-45) mmHg ABG pO2 77 L (83-108) mmHg ABG HCO3 27 H (21-25) mmol/L ABG Total CO2 28 H (19-24) mmol/L ABG O2 Saturation (94-97) % Sodium (137-145) mmol/L Potassium (3.5-5.1) mmol/L BUN (9-20) mg/dL Creatinine (0.66-1.25) mg/dL Glucose (74-99) mg/dL POC Glucose (mg/dL) 105 H 113 H (75-99) mg/dL Plasma Lactic Acid Wicho (0.7-2.0) mmol/L Calcium (8.4-10.2) mg/dL Total Protein (6.3-8.2) g/dL Albumin (3.5-5.0) g/dL Urine Protein (Negative) Urine Mucus (None) /hpf 06/07/18 06/07/18 06/08/18 Range/Units 21:44 23:47 00:12 WBC (3.8-10.6) k/uL RBC (4.30-5.90) m/uL Hgb (13.0-17.5) gm/dL Hct (39.0-53.0) % RDW (11.5-15.5) % Plt Count (150-450) k/uL Neutrophils # (1.3-7.7) k/uL Lymphocytes # (1.0-4.8) k/uL ABG pH (7.35-7.45) ABG pCO2 (35-45) mmHg ABG pO2 (83-108) mmHg ABG HCO3 (21-25) mmol/L ABG Total CO2 (19-24) mmol/L ABG O2 Saturation (94-97) % Sodium (137-145) mmol/L Potassium (3.5-5.1) mmol/L BUN (9-20) mg/dL Creatinine (0.66-1.25) mg/dL Glucose (74-99) mg/dL POC Glucose (mg/dL) 111 H 119 H (75-99) mg/dL Plasma Lactic Acid Wicho 0.6 L (0.7-2.0) mmol/L Calcium (8.4-10.2) mg/dL Total Protein (6.3-8.2) g/dL Albumin (3.5-5.0) g/dL Urine Protein (Negative) Urine Mucus (None) /hpf 06/08/18 06/08/18 06/08/18 Range/Units 00:12 00:12 02:45 WBC 10.8 H (3.8-10.6) k/uL RBC 2.77 L (4.30-5.90) m/uL Hgb 9.0 L (13.0-17.5) gm/dL Hct 26.7 L (39.0-53.0) % RDW 15.7 H (11.5-15.5) % Plt Count 84 L (150-450) k/uL Neutrophils # 9.3 H (1.3-7.7) k/uL Lymphocytes # (1.0-4.8) k/uL ABG pH (7.35-7.45) ABG pCO2 (35-45) mmHg ABG pO2 (83-108) mmHg ABG HCO3 (21-25) mmol/L ABG Total CO2 (19-24) mmol/L ABG O2 Saturation (94-97) % Sodium 135 L (137-145) mmol/L Potassium 8.0 H* (3.5-5.1) mmol/L BUN 71 H (9-20) mg/dL Creatinine 7.62 H* (0.66-1.25) mg/dL Glucose 114 H (74-99) mg/dL POC Glucose (mg/dL) 234 H (75-99) mg/dL Plasma Lactic Acid Wicho (0.7-2.0) mmol/L Calcium 7.8 L (8.4-10.2) mg/dL Total Protein (6.3-8.2) g/dL Albumin (3.5-5.0) g/dL Urine Protein (Negative) Urine Mucus (None) /hpf 06/08/18 06/08/18 06/08/18 Range/Units 03:00 04:25 04:35 WBC 18.4 H (3.8-10.6) k/uL RBC 2.92 L (4.30-5.90) m/uL Hgb 9.5 L (13.0-17.5) gm/dL Hct 27.3 L (39.0-53.0) % RDW 16.0 H (11.5-15.5) % Plt Count 148 L D (150-450) k/uL Neutrophils # 16.6 H (1.3-7.7) k/uL Lymphocytes # 0.7 L (1.0-4.8) k/uL ABG pH 7.30 L (7.35-7.45) ABG pCO2 57 H (35-45) mmHg ABG pO2 315 H (83-108) mmHg ABG HCO3 28 H (21-25) mmol/L ABG Total CO2 30 H (19-24) mmol/L ABG O2 Saturation 100.0 H (94-97) % Sodium (137-145) mmol/L Potassium 6.0 H (3.5-5.1) mmol/L BUN (9-20) mg/dL Creatinine (0.66-1.25) mg/dL Glucose (74-99) mg/dL POC Glucose (mg/dL) (75-99) mg/dL Plasma Lactic Acid Wicho (0.7-2.0) mmol/L Calcium (8.4-10.2) mg/dL Total Protein (6.3-8.2) g/dL Albumin (3.5-5.0) g/dL Urine Protein (Negative) Urine Mucus (None) /hpf 06/08/18 06/08/18 06/08/18 Range/Units 05:00 05:18 09:08 WBC (3.8-10.6) k/uL RBC (4.30-5.90) m/uL Hgb (13.0-17.5) gm/dL Hct (39.0-53.0) % RDW (11.5-15.5) % Plt Count (150-450) k/uL Neutrophils # (1.3-7.7) k/uL Lymphocytes # (1.0-4.8) k/uL ABG pH (7.35-7.45) ABG pCO2 (35-45) mmHg ABG pO2 (83-108) mmHg ABG HCO3 (21-25) mmol/L ABG Total CO2 (19-24) mmol/L ABG O2 Saturation (94-97) % Sodium (137-145) mmol/L Potassium (3.5-5.1) mmol/L BUN 33 H (9-20) mg/dL Creatinine 3.64 H (0.66-1.25) mg/dL Glucose 124 H (74-99) mg/dL POC Glucose (mg/dL) 155 H (75-99) mg/dL Plasma Lactic Acid Wicho (0.7-2.0) mmol/L Calcium (8.4-10.2) mg/dL Total Protein 6.2 L (6.3-8.2) g/dL Albumin 3.4 L (3.5-5.0) g/dL Urine Protein 2+ H (Negative) Urine Mucus Rare H (None) /hpf 06/08/18 06/08/18 Range/Units 10:30 12:19 WBC (3.8-10.6) k/uL RBC (4.30-5.90) m/uL Hgb (13.0-17.5) gm/dL Hct (39.0-53.0) % RDW (11.5-15.5) % Plt Count (150-450) k/uL Neutrophils # (1.3-7.7) k/uL Lymphocytes # (1.0-4.8) k/uL ABG pH (7.35-7.45) ABG pCO2 (35-45) mmHg ABG pO2 128 H (83-108) mmHg ABG HCO3 (21-25) mmol/L ABG Total CO2 26 H (19-24) mmol/L ABG O2 Saturation 100.0 H (94-97) % Sodium (137-145) mmol/L Potassium (3.5-5.1) mmol/L BUN (9-20) mg/dL Creatinine (0.66-1.25) mg/dL Glucose (74-99) mg/dL POC Glucose (mg/dL) 159 H (75-99) mg/dL Plasma Lactic Acid Wicho (0.7-2.0) mmol/L Calcium (8.4-10.2) mg/dL Total Protein (6.3-8.2) g/dL Albumin (3.5-5.0) g/dL Urine Protein (Negative) Urine Mucus (None) /hpf Microbiology - Last 24 Hours (Table) 06/08/18 05:18 Urine Culture - Preliminary Urine,Catheterized 06/04/18 01:10 Blood Culture - Preliminary Blood No Growth after 96 hours Assessment and Plan Assessment: #1 non-ST elevation myocardial infarction #2 fever, etiology unclear currently on IV antibiotics #3 hypertension #4 diabetes #5 end-stage renal disease on hemodialysis #6 history of CAD with prior stenting of the RCA by Dr. Ibarra in 2013, subsequent cardiac catheterization details are unknown #7 anemia #8 acute respiratory failure due to acute pulmonary edema, most likely secondary to fluid overload due to chronic renal failure and acute on chronic systolic congestive heart failure #9 possible pneumonia Plan: From cardiology perspective, we will continue maximized medical therapy for now as heart rate and blood pressure will tolerate. We'll continue to follow the patient and provide further recommendations accordingly. [employer] WORK[employer] note has been reviewed, I agree with a documented findings and plan of care. Patient was seen and examined.
[2018-06-08] MEDS: IPRATROPIUM-ALBUTEROL 3 ML NEB INHALATION SCH ×3 (17:02→23:20)
--- NOTE | 2018-06-08 17:08 | PN ---
PROGRESS NOTE Patient is seen for followup for end-stage renal disease. Last night patient was transferred to the ICU. He had developed bradycardia. His labs showed severely elevated potassium at 8.0. Patient also became bradycardic. He had emergency dialysis at 3 a.m. this morning. The patient had CODED with the bradycardia and was eventually intubated. It looks like the CODE lasted for only about 2 to 3 minutes. Patient was also hypotensive. Levophed was up to about mcg. It is now down to 8 mcg. Patient received IV fluid bolus as well. There is no active bleeding noted. Hemoglobin is on the lower side. On examination currently, patient is sedated. He is on the vent. Levophed is at about 8 mcg. EXAMINATION OF THE HEART: S1, S2. EXAMINATION OF LUNGS: Bilateral breath sounds are heard. ABDOMEN: Soft, non-tender. Examination of lower extremities shows no significant edema. Labs show sodium 140, potassium 4.1, platelet count 148,000, hemoglobin 9.5, white cell count 18.4. ASSESSMENT: 1. End-stage renal disease, on hemodialysis, status post hemodialysis early this morning. 2. Severe hyperkalemia. It is unclear why the serum potassium went up yesterday from 5.6 to 8.0 at midnight. We need to rule out underlying GI bleed, although patient has not had any active bleeding. He is not maintained on any NSAIDs. We will need to hold off on the MANUEL inhibitors given as outpatient. Patient does have a history of thrombocytopenia. There is no history of underlying leukemia or thrombocytosis. We will monitor and repeat the serum potassium this evening. 3. Bradycardia secondary to hyperkalemia. 4. Vent-dependent respiratory failure, status post cardiac arrest. 5. Anemia of chronic disease. Rule out GI bleed. 6. Sepsis, most likely secondary to pneumonia, maintained on antibiotics. PLAN: Continue to wean off Levophed. Check stool for occult blood. Repeat potassium this evening. MMODL / IJN: [id number] /
[2018-06-08 18:32] LABS: Glucose,Whole Blood 164 mg/dL (75-99)
[2018-06-08] MEDS ORDERED: BUMETANIDE 1 MG TAB PO SCH (21:00)
[2018-06-09 00:17] LABS: Glucose,Whole Blood 71 mg/dL (75-99)
[2018-06-09] MEDS: PIPERACILLIN-TAZOBACTAM 3.375 GM in DEXTROSE/WATER 1 50ML.BAG IVPB SCH ×3 (00:22→21:05)
[2018-06-09] MEDS: DEXTROSE 50%-WATER 50 ML SYRINGE IVP STA (00:31)
[2018-06-09 00:59] LABS: Glucose,Whole Blood 170 mg/dL (75-99)
[2018-06-09 01:49] LABS: Glucose,Whole Blood 118 mg/dL (75-99)
[2018-06-09] MEDS: IPRATROPIUM-ALBUTEROL 3 ML NEB INHALATION SCH ×5 (03:14→20:50)
[2018-06-09 03:18] LABS: Glucose,Whole Blood 107 mg/dL (75-99)
[2018-06-09] MEDS: PROPOFOL 1,000 MG in EMPTY BAG 1 BAG IV SCH ×3 (04:44→19:53)
[2018-06-09] MEDS: SODIUM CHLORIDE 0.9% 1,000 ML IV SCH (04:50)
[2018-06-09 05:21] LABS: ABG Base Excess 2.4 mmol/L; ABG HCO3 27 mmol/L (21-25); ABG PCO2 42 mmHg (35-45); ABG PH 7.42 (7.35-7.45); ABG PO2 117 mmHg (83-108); ABG TCO2 28 mmol/L (19-24)
[2018-06-09 05:34] LABS: Calcium 7.8 mg/dL (8.4-10.2); Magnesium 1.8 mg/dL (1.6-2.3); Phosphorus 4.3 mg/dL (2.5-4.5); Potassium 4.6 mmol/L (3.5-5.1)
[2018-06-09 05:57] LABS: Glucose,Whole Blood 109 mg/dL (75-99)
[2018-06-09 06:45] LABS: Basophils % (A) 0 %; Eosinophils # (A) 0.1 k/uL (0-0.7); Eosinophils % (A) 1 %; Lymphocytes # (A) 0.5 k/uL (1.0-4.8); Lymphocytes % (A) 9 %; MCH 33.3 pg (25.0-35.0); MCHC 35.2 g/dL (31.0-37.0); MCV 94.6 fL (80.0-100.0); Mean Platelet Volume 9.1; Monocytes # (A) 0.3 k/uL (0-1.0); Monocytes % (A) 4 %; Neutrophils # (A) 5.3 k/uL (1.3-7.7); Neutrophils % (A) 85 %; Poikilocytosis Slight; WBC 6.2 k/uL (3.8-10.6)
[2018-06-09 06:51] LABS: HCT 18.9 % (39.0-53.0); HGB 6.7 gm/dL (13.0-17.5)
[2018-06-09 07:13] LABS: Platelet Count 44 k/uL (150-450)
[2018-06-09 07:15] LABS: Glucose,Whole Blood 70 mg/dL (75-99)
[2018-06-09 07:16] LABS: Basophilic Stippling Present
--- NOTE | 2018-06-09 07:58 | P.PN ---
Subjective Progress Note Date: 06/09/18 Principal diagnosis: SNTEMI This is a pleasant 57-year-old gentleman with history of end-stage renal disease on hemodialysis, hypertension, insulin requiring diabetes, CAD with prior stenting. He follows with a adolescent specialist out of [facility]. He presented to the hospital primary complaining of not feeling well overall mild confusion and fever. We were asked to the patient in consultation due to elevated troponin with initial troponin of 0.651 second troponin 2.6 and third troponin 3.5. Patient was initially febrile. Hemoglobin is improved at 9.0 and platelet count is 84 heparin; and anti-platelets have been avoided. Started the patient on oral nitrates. Echocardiogram with Doppler came back to show an ejection fraction of 30-35% with anterior septal, inferior and septal hypokinesis. Sometime through the last night, rapid response team was called for this patient due to respiratory distress, acute hypoxemic and hypercapnic respiratory failure. Patient was bradycardic. CODE BLUE was called. Patient was emergently intubated. Upon examination, patient remains sedated on propofol. On follow-up with the patient today, 06/09/2018, the patient continues to be intubated on ventilator. He continues to be hemodynamically unstable and requiring small dose of vasopressors. The hemoglobin dropped to 6.7. We are trying to wean her from the vasopressors at this point. Continue holding the beta tammy and isosorbide mononitrate in view of the hemodynamic instability. Continue following up with the patient. Objective - Vital Signs Vital signs: Vital Signs Temp 100.2 F H 06/09/18 04:00 Pulse 68 06/09/18 07:47 Resp 24 06/09/18 07:00 BP 138/54 06/09/18 07:00 Pulse Ox 97 06/09/18 07:00 Intake & Output 06/08/18 06/09/18 06/09/18 18:59 06:59 18:59 Intake Total 2977.241 591.058 20 Output Total 730 525 45 Balance 2247.241 66.058 -25 Weight 101.1 kg 98.6 kg Intake: IV 2240 240 20 LR 2000 Sodium Chloride 0.9% 1, 240 240 20 000 ml @ 20 mls/hr IV . Q24H [facility] Rx#:[id number] Intake, IV Titration 737.241 351.058 Amount Norepinephrine 16 mg In 25.813 124.637 Sodium Chloride 0.9% 250 ml @ Titrate IV .Q0M [facility] Rx#:[id number] Norepinephrine 4 mg In 281.188 Sodium Chloride 0.9% 250 ml @ Titrate IV .Q0M [facility] Rx#:[id number] Piperacillin-Tazobactam 3 100 50 .375 gm In Dextrose/Water 1 50ml.bag @ 12.5 mls/hr IVPB Q8HR [facility] Rx#: [id number] Propofol 1,000 mg In 80.24 176.421 Empty Bag 1 bag @ Titrate IV .Q0M [facility] Rx#: [id number] Vancomycin 1,500 mg In 250 Sodium Chloride 0.9% 250 ml @ 125 mls/hr IVPB ONCE ONE Rx#:[id number] Output: Urine 430 525 45 Other 300 Other: Voiding Method Indwelling Catheter Indwelling Catheter # Bowel Movements 0 ABP, PAP, CO, CI - Last Documented Arterial Blood Pressure 108/42 - Constitutional General appearance: Present: no acute distress - Respiratory Respiratory: bilateral: diminished - Cardiovascular Heart sounds: normal: S1, S2 - Labs CBC & Chem 7: 06/09/18 05:00 06/09/18 05:00 Labs: Abnormal Lab Results - Last 24 Hours (Table) 06/08/18 06/08/18 06/08/18 Range/Units 09:08 10:30 12:19 RBC (4.30-5.90) m/uL Hgb (13.0-17.5) gm/dL Hct (39.0-53.0) % RDW (11.5-15.5) % Plt Count (150-450) k/uL Lymphocytes # (1.0-4.8) k/uL ABG pO2 128 H (83-108) mmHg ABG HCO3 (21-25) mmol/L ABG Total CO2 26 H (19-24) mmol/L ABG O2 Saturation 100.0 H (94-97) % BUN (9-20) mg/dL Creatinine (0.66-1.25) mg/dL POC Glucose (mg/dL) 155 H 159 H (75-99) mg/dL Calcium (8.4-10.2) mg/dL 06/08/18 06/09/18 06/09/18 Range/Units 18:20 00:06 00:08 RBC (4.30-5.90) m/uL Hgb (13.0-17.5) gm/dL Hct (39.0-53.0) % RDW (11.5-15.5) % Plt Count (150-450) k/uL Lymphocytes # (1.0-4.8) k/uL ABG pO2 (83-108) mmHg ABG HCO3 (21-25) mmol/L ABG Total CO2 (19-24) mmol/L ABG O2 Saturation (94-97) % BUN (9-20) mg/dL Creatinine (0.66-1.25) mg/dL POC Glucose (mg/dL) 164 H 71 L 70 L (75-99) mg/dL Calcium (8.4-10.2) mg/dL 06/09/18 06/09/18 06/09/18 Range/Units 00:48 01:38 03:06 RBC (4.30-5.90) m/uL Hgb (13.0-17.5) gm/dL Hct (39.0-53.0) % RDW (11.5-15.5) % Plt Count (150-450) k/uL Lymphocytes # (1.0-4.8) k/uL ABG pO2 (83-108) mmHg ABG HCO3 (21-25) mmol/L ABG Total CO2 (19-24) mmol/L ABG O2 Saturation (94-97) % BUN (9-20) mg/dL Creatinine (0.66-1.25) mg/dL POC Glucose (mg/dL) 170 H 118 H 107 H (75-99) mg/dL Calcium (8.4-10.2) mg/dL 06/09/18 06/09/18 06/09/18 Range/Units 05:00 05:00 05:06 RBC 2.00 L (4.30-5.90) m/uL Hgb 6.7 L* D (13.0-17.5) gm/dL Hct 18.9 L* (39.0-53.0) % RDW 16.0 H (11.5-15.5) % Plt Count 44 L D (150-450) k/uL Lymphocytes # 0.5 L (1.0-4.8) k/uL ABG pO2 117 H (83-108) mmHg ABG HCO3 27 H (21-25) mmol/L ABG Total CO2 28 H (19-24) mmol/L ABG O2 Saturation 100.0 H (94-97) % BUN 44 H (9-20) mg/dL Creatinine 5.48 H (0.66-1.25) mg/dL POC Glucose (mg/dL) (75-99) mg/dL Calcium 7.8 L (8.4-10.2) mg/dL 06/09/18 Range/Units 05:45 RBC (4.30-5.90) m/uL Hgb (13.0-17.5) gm/dL Hct (39.0-53.0) % RDW (11.5-15.5) % Plt Count (150-450) k/uL Lymphocytes # (1.0-4.8) k/uL ABG pO2 (83-108) mmHg ABG HCO3 (21-25) mmol/L ABG Total CO2 (19-24) mmol/L ABG O2 Saturation (94-97) % BUN (9-20) mg/dL Creatinine (0.66-1.25) mg/dL POC Glucose (mg/dL) 109 H (75-99) mg/dL Calcium (8.4-10.2) mg/dL Microbiology - Last 24 Hours (Table) 06/04/18 01:10 Blood Culture - Preliminary Blood No Growth after 120 hours 06/08/18 05:18 Urine Culture - Preliminary Urine,Catheterized Assessment and Plan Assessment: Assessment Acute non-ST elevation myocardial infarction Coronary artery disease and prior stenting End stage renal disease on hemodialysis Plan Continue the current medical regimen Try to wean the patient from the vasopressors Possible extubation in the next 24 hours Follow-up with the patient
--- NOTE | 2018-06-09 08:01 | P.PN ---
Subjective Progress Note Date: 06/09/18 Principal diagnosis: Acute hypoxic and hypercapnic respiratory failure secondary to underlying pneumonia This is a 57-year-old white male with history of multiple medical problems including chronic renal failure, on hemodialysis. Patient is also known to history of coronary artery disease, previous PCI, stenting of RCA 3 stents total in 2013. History of hypertension, cardiovascular disease, type 2 diabetes , diabetic neuropathy, history of alcohol abuse with associated thrombocytopenia and splenomegaly, patient had previous history of metabolic encephalopathy treated in June of 2017, history of diastolic congestive heart failure, admitted this time with mostly symptoms of generalized weakness, confusion, and change in mental status. Patient has also been complaining of some shortness of breath, chest x-ray was suggestive of interstitial edema, his BNP level was elevated, troponin was also elevated, received Lasix in the ER, and there was a significant improvement in his overall pulmonary status patient apparently diuresed significantly although he doesn't usually make much urine since he is a renal failure patient. By the time I saw the patient on consultation, he had no active pulmonary symptoms whatsoever. Patient was relatively asymptomatic, no cough no wheezing no shortness of breath. However apparently when he was admitted there was a concern that the patient may have sepsis because his lactic acid was 1.7. And he was placed empirically on antibiotics for presumptive pneumonia, although the findings on the chest x-ray and the clinical findings are mostly findings of interstitial edema. Again I strongly doubt pneumonia. During my evaluation, the patient was basically asymptomatic. He had no chest pain no cough no wheezing no fever no chills no hemoptysis and no chest pain. Troponin was noted to be a bit higher compared to the morning troponin. His BNP level was over 17,600. Reevaluated today on 06/05/2018, patient is presently on dialysis, he had 1 dialysis done last night, he continues to feel much better. Denies any shortness of breath, no cough, no wheezing, no chest pain. However the patient spiked a temp last night, he had a temp of 101.1 and his temp now is 99.7. Patient is on room air, O2 saturations 97%, blood pressure is normal 132/79. Heart rate is 76. All labs were reviewed, he does not have leukocytosis, basic metabolic profile is normal BUN is 44 creatinine is 4.78. Reviewed the chest x- ray again, clearly consistent with interstitial edema. Remind me patient had a significantly elevated BNP level on admission. Reevaluated today on 06/06/2018, had his dialysis yesterday, and 2 L of fluids were removed. Patient continues to feel better clinically, no shortness of breath no cough no wheezing. No fever no chills, no chest pain, no hemoptysis. Chest x-ray today showed definite improvement compared to previous x-rays, and clinically the patient is showing definite improvement in his room air saturation is 97%. Hemodynamically remained stable all along since admission. Patient was reevaluated today on 06/07/2018, feels great, basically asymptomatic. Denies any shortness of breath, no cough, no wheezing, no fever, no chills, no hemoptysis, no nausea no vomiting no abdominal pain. His last hemodialysis was on Friday. I believe he would have another dialysis tomorrow. Pulmonary-cast the patient is doing great. Labs were reviewed WBC count is 4.5 hemoglobin is 7.9. His BUN is 54 creatinine is 5.98. Potassium is a bit elevated at 5.6. Patient was seen by cardiology today, and advised to continue current medical regimen, advised to continue beta blockers, patient did have acute non-ST elevation myocardial infarction on admission. On 06/08/2018 patient seen in the intensive care unit. Sometime at midnight on 06/08/2018 there was a rapid response team called for a concern of respiratory distress, and acute hypoxemic and hypercapnic respiratory failure. Was emergently intubated, and this morning patient is seen intubated, sedated, on mechanical ventilator. Current IV fluids are 0.9 normal saline at a rate of 25 ML per hour, levofed at 20 mics per minute, Diprivan and is at 25 mcg/kg/min. patient had emergent hemodialysis last night, would removal of 300 mL of fluid. And was not given any IV boluses in view of his acute on chronic renal failure. This morning blood work has been reviewed, there has been acute elevation of white blood count, to 18.4, hemoglobin is 9.5, electrolytes were within normal limits, there has been improvement in his renal profile, BUN was down to 33, creatinine is down to 3.64, patient is making small amounts of urine , in the range of 5-10 ML per hour. Antibiotic coverage includes Zosyn, Levaquin and vancomycin. Blood and urine cultures were collected, and showed no growth. he has some thick yellow sputum being suctioned from the ET tube. Today's chest x-ray has been reviewed by Dr. Otoole, and showed left lower lobe infiltrate. This morning's blood gas has been reviewed, and showed pO2 of 3:15 , pCO2 57, pH of 7.30, this was done on settings of assist control mode with a rate of 16, tidal volume of 360, FiO2 of 100%, and PEEP of 5. FiO2 was dropped down to 50%. We will make further adjustments to the vent settings we will increase the rate to 24, tidal volume decreased to 450, FiO2 50% and PEEP of 5. Patient's spouse is at the bedside, her rash was to continue with full code, and supportive treatment. On 06/09/2018 patient seen again in the intensive care unit. He remains intubated, sedated, on mechanical ventilator, current vent settings assist- control mode with a rate of 24, tidal volume 450, FiO2 50%, and PEEP of 5. This morning blood gases showed pO2 of 117, pCO2 42, pH of 7.42, FiO2 was dropped to 40% based on those blood gases. This morning's labs show WBC of 6.2 , hemoglobin is down to 6.7, from 9.0 yesterday, platelet count is down to 44, electrolyte panel is within normal limits, BUN 24, creatinine is 5.48. Random serum cortisol level was 14. Yesterday we gave the patient additional 2 L IV bolus of lactated Ringer's, and levo fed dose is down to 9 mics per minute this morning. Maintenance IV fluids 0.9 at 20 ML per hour. To prevent is 50 mics per kilo per minute. Blood cultures remain negative thus far, her antibiotic coverage includes Zosyn, Levaquin, and vancomycin. No signs of GI bleeding, occult blood stool was negative. Today's chest x-ray has been reviewed, and shows improvement in the appearance of bilateral airspace disease and pulmonary edema. Patient is producing urine, in the order 45-60 ML per hour. Patient does have intermittent low-grade fevers, with a T-max of 100.2F. Lung sounds are clear to auscultation. Dietary has been consulted for to proceeding recommendations. Objective - Vital Signs Vital signs: Vital Signs Temp 100.2 F H 06/09/18 04:00 Pulse 71 06/09/18 07:00 Resp 24 06/09/18 07:00 BP 138/54 06/09/18 07:00 Pulse Ox 97 06/09/18 07:00 Intake & Output 06/08/18 06/09/18 06/09/18 18:59 06:59 18:59 Intake Total 2977.241 591.058 20 Output Total 730 525 45 Balance 2247.241 66.058 -25 Weight 101.1 kg 98.6 kg Intake: IV 2240 240 20 LR 2000 Sodium Chloride 0.9% 1, 240 240 20 000 ml @ 20 mls/hr IV . Q24H [facility] Rx#:[id number] Intake, IV Titration 737.241 351.058 Amount Norepinephrine 16 mg In 25.813 124.637 Sodium Chloride 0.9% 250 ml @ Titrate IV .Q0M [facility] Rx#:[id number] Norepinephrine 4 mg In 281.188 Sodium Chloride 0.9% 250 ml @ Titrate IV .Q0M [facility] Rx#:[id number] Piperacillin-Tazobactam 3 100 50 .375 gm In Dextrose/Water 1 50ml.bag @ 12.5 mls/hr IVPB Q8HR [facility] Rx#: [id number] Propofol 1,000 mg In 80.24 176.421 Empty Bag 1 bag @ Titrate IV .Q0M [facility] Rx#: [id number] Vancomycin 1,500 mg In 250 Sodium Chloride 0.9% 250 ml @ 125 mls/hr IVPB ONCE ONE Rx#:[id number] Output: Urine 430 525 45 Other 300 Other: Voiding Method Indwelling Catheter Indwelling Catheter # Bowel Movements 0 ABP, PAP, CO, CI - Last Documented Arterial Blood Pressure 108/42 - Exam GENERAL EXAM: Intubated, sedated, 57-year-old white male in no apparent distress. HEAD: Normocephalic/atraumatic. EYES: Normal reaction of pupils, equal size. Conjunctiva pink, sclera white. NOSE: Clear with pink turbinates. THROAT: No erythema or exudates. NECK: No masses, no JVD, no thyroid enlargement, no adenopathy. CHEST: No chest wall deformity. Symmetrical expansion. LUNGS: Equal air entry with no crackles, wheeze, rhonchi or dullness. CVS: Regular rate and rhythm, normal S1 and S2, no gallops, no murmurs, no rubs ABDOMEN: Soft, nontender. No hepatosplenomegaly, normal bowel sounds, no guarding or rigidity. EXTREMITIES: No clubbing, no edema, no cyanosis, 2+ pulses and upper and lower extremities. MUSCULOSKELETAL: Muscle strength and tone normal. SPINE: No scoliosis or deformity SKIN: No rashes CENTRAL NERVOUS SYSTEM: Intubated, and sedated. No focal deficits, tone is normal in all 4 extremities. PSYCHIATRIC: Unable to assess, patient is intubated. - Labs CBC & Chem 7: 06/09/18 05:00 06/09/18 05:00 Labs: Abnormal Lab Results - Last 24 Hours (Table) 06/08/18 06/08/18 06/08/18 Range/Units 09:08 10:30 12:19 RBC (4.30-5.90) m/uL Hgb (13.0-17.5) gm/dL Hct (39.0-53.0) % RDW (11.5-15.5) % Plt Count (150-450) k/uL Lymphocytes # (1.0-4.8) k/uL ABG pO2 128 H (83-108) mmHg ABG HCO3 (21-25) mmol/L ABG Total CO2 26 H (19-24) mmol/L ABG O2 Saturation 100.0 H (94-97) % BUN (9-20) mg/dL Creatinine (0.66-1.25) mg/dL POC Glucose (mg/dL) 155 H 159 H (75-99) mg/dL Calcium (8.4-10.2) mg/dL 06/08/18 06/09/18 06/09/18 Range/Units 18:20 00:06 00:08 RBC (4.30-5.90) m/uL Hgb (13.0-17.5) gm/dL Hct (39.0-53.0) % RDW (11.5-15.5) % Plt Count (150-450) k/uL Lymphocytes # (1.0-4.8) k/uL ABG pO2 (83-108) mmHg ABG HCO3 (21-25) mmol/L ABG Total CO2 (19-24) mmol/L ABG O2 Saturation (94-97) % BUN (9-20) mg/dL Creatinine (0.66-1.25) mg/dL POC Glucose (mg/dL) 164 H 71 L 70 L (75-99) mg/dL Calcium (8.4-10.2) mg/dL 06/09/18 06/09/18 06/09/18 Range/Units 00:48 01:38 03:06 RBC (4.30-5.90) m/uL Hgb (13.0-17.5) gm/dL Hct (39.0-53.0) % RDW (11.5-15.5) % Plt Count (150-450) k/uL Lymphocytes # (1.0-4.8) k/uL ABG pO2 (83-108) mmHg ABG HCO3 (21-25) mmol/L ABG Total CO2 (19-24) mmol/L ABG O2 Saturation (94-97) % BUN (9-20) mg/dL Creatinine (0.66-1.25) mg/dL POC Glucose (mg/dL) 170 H 118 H 107 H (75-99) mg/dL Calcium (8.4-10.2) mg/dL 06/09/18 06/09/18 06/09/18 Range/Units 05:00 05:00 05:06 RBC 2.00 L (4.30-5.90) m/uL Hgb 6.7 L* D (13.0-17.5) gm/dL Hct 18.9 L* (39.0-53.0) % RDW 16.0 H (11.5-15.5) % Plt Count 44 L D (150-450) k/uL Lymphocytes # 0.5 L (1.0-4.8) k/uL ABG pO2 117 H (83-108) mmHg ABG HCO3 27 H (21-25) mmol/L ABG Total CO2 28 H (19-24) mmol/L ABG O2 Saturation 100.0 H (94-97) % BUN 44 H (9-20) mg/dL Creatinine 5.48 H (0.66-1.25) mg/dL POC Glucose (mg/dL) (75-99) mg/dL Calcium 7.8 L (8.4-10.2) mg/dL 06/09/18 Range/Units 05:45 RBC (4.30-5.90) m/uL Hgb (13.0-17.5) gm/dL Hct (39.0-53.0) % RDW (11.5-15.5) % Plt Count (150-450) k/uL Lymphocytes # (1.0-4.8) k/uL ABG pO2 (83-108) mmHg ABG HCO3 (21-25) mmol/L ABG Total CO2 (19-24) mmol/L ABG O2 Saturation (94-97) % BUN (9-20) mg/dL Creatinine (0.66-1.25) mg/dL POC Glucose (mg/dL) 109 H (75-99) mg/dL Calcium (8.4-10.2) mg/dL Microbiology - Last 24 Hours (Table) 06/04/18 01:10 Blood Culture - Preliminary Blood No Growth after 120 hours 06/08/18 05:18 Urine Culture - Preliminary Urine,Catheterized Assessment and Plan Plan: Assessment: 1 acute pulmonary edema, most likely secondary to fluid overload secondary to chronic renal failure, and secondary to systolic dysfunction, his ejection fraction on the echocardiogram showed 30%. Significant anteroseptal hypokinesis noted. 2 possibility of pneumonia is not entirely ruled out, especially with elevated pro calcitonin level hence would recommend we continue antibiotics. 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 8 end-stage renal disease, on hemodialysis. 9 type 2 diabetes 10 hyperkalemia secondary to renal failure, patient apparently has been noncompliant with dialysis. Nephrology is following. 11 acute non-ST elevation myocardial infarction Plan: Vent adjustments have been made, FiO2 Down to 40%. We will give the patient sedation holiday this morning, assess neurological status, and assess readiness for spontaneous breathing trials. Today's chest x-ray shows improvement in the appearance of pulmonary edema. Continue weaning the levo fed. Consult dietary for tube feeding recommendations. Continue current antibiotic coverage, will await the final results of the cultures. Patient is still intermittently febrile with low-grade fevers. We'll continue to follow. I performed a history & physical examination of the patient and discussed their management with my nurse practitioner, Yumiko Matta. I reviewed the nurse practitioner's note and agree with the documented findings and plan of care. Lung sounds are positive for clear sounds. The findings and the impression was discussed with the patient. I attest to the documentation by the nurse practitioner. Time with Patient: Greater than 30
[2018-06-09] MEDS ORDERED: FUROSEMIDE 10 MG/ML 4 ML VIAL IV STA (08:11)
--- NOTE | 2018-06-09 08:15 | XR ---
EXAMINATION TYPE: XR chest 1V DATE OF EXAM: 06/09/2018 COMPARISON: 06/08/2018 HISTORY: Ventilatory dependent respiratory failure. TECHNIQUE: Single frontal view of the chest is obtained. FINDINGS: There is overall improved aeration of the lungs with a few patchy opacities remaining pred ominantly inferiorly, gravity dependent. Cardiomediastinal silhouette is stable and upper limits of n ormal. Endotracheal tube is unchanged in position. Enteric tube has been inserted and although the fe nestrated portion is not well-visualized the distal tip extends below the [id number] and therefore is likely satisfactory. There is partial visualization of cervical fusion device. No sizable pleural effusion or pneumothorax. Left-sided central venous catheter is also unchanged in position. IMPRESSION: Given short-term improved aeration of the lungs and gravity dependent few remaining patc hy opacities findings are favored to be on the basis of resolving congestive heart failure rather shanon n pneumonia.
[2018-06-09] MEDS: DILTIAZEM CD 180 MG CAP.ER.24H PO SCH (08:47)
[2018-06-09] MEDS: ISOSORBIDE MONONITRATE ER 30 MG TAB.ER.24H PO SCH (08:48)
[2018-06-09] MEDS: PANTOPRAZOLE 40 MG/10 ML VIAL IVP SCH (08:55)
[2018-06-09] MEDS: INSULIN ASPART 100 UNIT/ML 1 ML 10 ML VIAL SQ SCH ×3 (08:55→18:24)
[2018-06-09] MEDS: INSULIN DETEMIR 100 UNIT/ML 10 ML VIAL SQ SCH (08:56)
[2018-06-09] MEDS: LACTULOSE 20 GM/30 ML CUP PO SCH ×2 (08:56→21:06)
[2018-06-09] MEDS: HYDROCORTISONE SUCCINATE 100 MG/2 ML VIAL IV SCH ×2 (08:56→17:27)
[2018-06-09] MEDS: CHOLECALCIFEROL 1,000 UNIT TAB PO SCH (08:56)
[2018-06-09] MEDS: guaiFENesin 600 MG TABLET.ER PO SCH ×2 (08:56→21:07)
[2018-06-09] MEDS: CHLORHEXIDINE GLUCONATE 15 ML CUP MUCOUS MEM SCH ×2 (08:56→21:07)
[2018-06-09] MEDS ORDERED: BUMETANIDE 1 MG TAB PO SCH (09:00)
[2018-06-09 10:02] LABS: Glucose,Whole Blood 104 mg/dL (75-99)
[2018-06-09] MEDS: ARIPiprazole 5 MG TAB PO SCH (10:02)
[2018-06-09 12:05] LABS: Glucose,Whole Blood 106 mg/dL (75-99)
--- NOTE | 2018-06-09 12:30 | P.PN ---
Subjective Patient is seen in follow-up for end-stage renal disease. He is maintained on hemodialysis on a Friday schedule via left upper extremity AV fistula. Patient had a cardiac arrest from hyperkalemia. Patient was emergently hemodialyzed and potassium level normalized. He is currently on 5 mics of Levophed. Hemoglobin is down to 6.7 today. He is scheduled receive 1 unit of blood transfusion. He had a temperature of 101F and repeat cultures have been drawn. He remains intubated and sedated at this time. Vital signs:Currently on vasopressors. 40% FiO2. General: The patient appeared well nourished and normally developed. HEENT: Head exam is unremarkable. Neck is without jugular venous distension. LUNGS: Breath sounds decreased. HEART: Rate and Rhythm are regular. First and second heart sounds normal. No murmurs, rubs or gallops. ABDOMEN: Abdominal exam reveals normal bowel sounds. Non-tender and non- distended. No evidence of peritonitis. EXTREMITITES: No clubbing, cyanosis, or edema. Objective - Vital Signs Vital signs: Vital Signs Temp 98.6 F 06/09/18 08:00 Pulse 70 06/09/18 12:16 Resp 25 H 06/09/18 11:00 BP 138/54 06/09/18 11:00 Pulse Ox 96 06/09/18 11:00 Intake & Output 06/08/18 06/09/18 06/09/18 18:59 06:59 18:59 Intake Total 2977.241 591.058 160.045 Output Total 730 525 268 Balance 2247.241 66.058 -107.955 Weight 101.1 kg 98.6 kg 98.6 kg Intake: IV 2240 240 100 LR 2000 Sodium Chloride 0.9% 1, 240 240 100 000 ml @ 20 mls/hr IV . Q24H [facility] Rx#:[id number] Intake, IV Titration 737.241 351.058 60.045 Amount Norepinephrine 16 mg In 25.813 124.637 Sodium Chloride 0.9% 250 ml @ Titrate IV .Q0M [facility] Rx#:[id number] Norepinephrine 4 mg In 281.188 Sodium Chloride 0.9% 250 ml @ Titrate IV .Q0M [facility] Rx#:[id number] Piperacillin-Tazobactam 3 100 50 .375 gm In Dextrose/Water 1 50ml.bag @ 12.5 mls/hr IVPB Q8HR [facility] Rx#: [id number] Propofol 1,000 mg In 80.24 176.421 60.045 Empty Bag 1 bag @ Titrate IV .Q0M [facility] Rx#: [id number] Vancomycin 1,500 mg In 250 Sodium Chloride 0.9% 250 ml @ 125 mls/hr IVPB ONCE ONE Rx#:[id number] Output: Urine 430 525 268 Other 300 Other: Voiding Method Indwelling Catheter Indwelling Catheter Indwelling Catheter # Bowel Movements 0 ABP, PAP, CO, CI - Last Documented Arterial Blood Pressure 130/45 - Labs CBC & Chem 7: 06/09/18 05:00 06/09/18 05:00 Labs: Abnormal Lab Results - Last 24 Hours (Table) 06/08/18 06/08/18 06/09/18 Range/Units 12:19 18:20 00:06 RBC (4.30-5.90) m/uL Hgb (13.0-17.5) gm/dL Hct (39.0-53.0) % RDW (11.5-15.5) % Plt Count (150-450) k/uL Lymphocytes # (1.0-4.8) k/uL ABG pO2 (83-108) mmHg ABG HCO3 (21-25) mmol/L ABG Total CO2 (19-24) mmol/L ABG O2 Saturation (94-97) % BUN (9-20) mg/dL Creatinine (0.66-1.25) mg/dL POC Glucose (mg/dL) 159 H 164 H 71 L (75-99) mg/dL Calcium (8.4-10.2) mg/dL Crossmatch 06/09/18 06/09/18 06/09/18 Range/Units 00:08 00:48 01:38 RBC (4.30-5.90) m/uL Hgb (13.0-17.5) gm/dL Hct (39.0-53.0) % RDW (11.5-15.5) % Plt Count (150-450) k/uL Lymphocytes # (1.0-4.8) k/uL ABG pO2 (83-108) mmHg ABG HCO3 (21-25) mmol/L ABG Total CO2 (19-24) mmol/L ABG O2 Saturation (94-97) % BUN (9-20) mg/dL Creatinine (0.66-1.25) mg/dL POC Glucose (mg/dL) 70 L 170 H 118 H (75-99) mg/dL Calcium (8.4-10.2) mg/dL Crossmatch 06/09/18 06/09/18 06/09/18 Range/Units 03:06 05:00 05:00 RBC 2.00 L (4.30-5.90) m/uL Hgb 6.7 L* D (13.0-17.5) gm/dL Hct 18.9 L* (39.0-53.0) % RDW 16.0 H (11.5-15.5) % Plt Count 44 L D (150-450) k/uL Lymphocytes # 0.5 L (1.0-4.8) k/uL ABG pO2 (83-108) mmHg ABG HCO3 (21-25) mmol/L ABG Total CO2 (19-24) mmol/L ABG O2 Saturation (94-97) % BUN 44 H (9-20) mg/dL Creatinine 5.48 H (0.66-1.25) mg/dL POC Glucose (mg/dL) 107 H (75-99) mg/dL Calcium 7.8 L (8.4-10.2) mg/dL Crossmatch 06/09/18 06/09/18 06/09/18 Range/Units 05:06 05:45 08:42 RBC (4.30-5.90) m/uL Hgb (13.0-17.5) gm/dL Hct (39.0-53.0) % RDW (11.5-15.5) % Plt Count (150-450) k/uL Lymphocytes # (1.0-4.8) k/uL ABG pO2 117 H (83-108) mmHg ABG HCO3 27 H (21-25) mmol/L ABG Total CO2 28 H (19-24) mmol/L ABG O2 Saturation 100.0 H (94-97) % BUN (9-20) mg/dL Creatinine (0.66-1.25) mg/dL POC Glucose (mg/dL) 109 H (75-99) mg/dL Calcium (8.4-10.2) mg/dL Crossmatch See Detail 06/09/18 06/09/18 Range/Units 09:50 11:53 RBC (4.30-5.90) m/uL Hgb (13.0-17.5) gm/dL Hct (39.0-53.0) % RDW (11.5-15.5) % Plt Count (150-450) k/uL Lymphocytes # (1.0-4.8) k/uL ABG pO2 (83-108) mmHg ABG HCO3 (21-25) mmol/L ABG Total CO2 (19-24) mmol/L ABG O2 Saturation (94-97) % BUN (9-20) mg/dL Creatinine (0.66-1.25) mg/dL POC Glucose (mg/dL) 104 H 106 H (75-99) mg/dL Calcium (8.4-10.2) mg/dL Crossmatch Microbiology - Last 24 Hours (Table) 06/09/18 04:34 Sputum Culture - Preliminary Sputum 06/04/18 01:10 Blood Culture - Preliminary Blood No Growth after 120 hours 06/08/18 05:18 Urine Culture - Preliminary Urine,Catheterized Assessment and Plan Plan: Assessment: 1. ESRD maintained on HD on MWF schedule via LUE AVF. 2. Cardiac arrest secondary to hyperkalemia. 3. Hypotension on 5 mics of levophed. 4. Hyperkalemia secondary to CKD and concern for GIB. 5. Anemia of CKD - ?actute GIB - Hgb 6.7 today. Maintained on Aranesp. 6. Sepsis mostly likely due to PNA maintained on antibiotics. Plan; HD tomorrow. Wean vasopressors. F/u cultures. Scheduled for 1 unit pRBC today.
[2018-06-09] MEDS: ACETAMINOPHEN TAB 325 MG TAB PO PRN (12:34)
--- NOTE | 2018-06-09 14:02 | P.PN ---
Subjective This is a 57 Year-Old male one of patient with a previous medical history significant for CAD post PCI and stenting of the RCA x3 stents 2013. 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 Last admitted June 2017 for metabolic encephalopathy and acute hypoxic hypercarbic respiratory failure secondary to acute diastolic heart failure and hypercarbia for which patient was briefly intubated. Sepsis was ruled out during the last admission. Patient comes at this time with increased generalized weakness associated with change in mental status. Patient does complain of some cough and shortness of breath with sputum production. Most of the history is provided by the family at bedside as patient is not able to give any history. He did have 3 suspected skin cancer removed for biopsy by Dr. Myers but was feeling unwell for past 2 days. Patient missed dialysis yesterday due to the weakness. He usually gets it at Friday and Friday. In the ER patient was found to have a fever of 103 pulse rate of 125, respiratory rate 32, blood pressure 183/81. Labs obtained in the ER suggested leukocyte of 8.6 chronic thrombocytopenia with platelets 52, INR 1.1, potassium 6.7, creatinine 5.42, glucose 233 calcium 8, total bilirubin 1.4 initial troponin 0.651 which increased to 2.6. Lactate is 1.7 Patient was evaluated by cardiology in the ER was suggested that the increase in troponin been related to sepsis. Echocardiogram has been ordered. Chest x-ray done in the ER concerning for interstitial infiltrate concerning for pneumonia. Patient has already received 1 dose of vancomycin and Levaquin dose adjusted to kidney functions. Due to patient's end-stage renal disease patient would not be able to get any fluid boluses or at maintainance. Pro- calcitonin ordered. Mycoplasma and urinary legionella ordered. Patient is admitted for sepsis secondary to community-acquired pneumonia with possible volume overload and hypercarbia causing change in mental status. 06/05: Patient lying in bed with Dialysis at bedside. Patient did get up and walk around today but states he was Short of breath when returning to bed. Patient continues with SOB with exertion and fatigue. Patient has a history of anemia, thrombocytopenia and Hgb decreased to 7.6. Patient does complain of bilateral abdominal pain. 06/06: patient is sitting at the edge of he bed eating breakfast, feeling a bit better, no fever or chills, no abdominal pain, still short of breath with activity,we will continue to monitor hgb very closely. 06/07: Patient is laying down in bed he is complain of constipation we will start him on lactulose 30 mL twice every day, patient was instructed to use the CPAP while he is sleeping because of his deep sleep, he denies any chest pain he is less short of breath, we'll continue to monitor the patient very closely. 06/08: Last night around midnight, rapid response team was called to the patients bedside due to respiratory distress, hypoxia, and respiratory failure. The patient was intubated. He also underwent emergent hemodialysis. This morning , patient remains intubated and sedated, he remains on Levofed. Settings are rate of 24, tidal volume 450, Fi02 of 50% and PEEP of 5. This morning, labs reveal an elevated of white blood cell count 18.4, Hbg 9.5, Cr 3.64 and BUN 33, blood gas Po2 128, Pco2 41, PH 7.39. He remain on Zosyn, Levaquin and vancomycin. Blood cultures show no growth to date. Repeat chest xray showed some clearing of pulmonary vascular congestion. 06/09: Patient evaluated this morning. He continues to be intubated and on a ventilator, settings are assist control, rate of 24, tidal volume 450, Fi02 40% , and PEEP of 5. His ABG shows p02 117, pC02 42, PH 7.42. His hemoglobin dropped to 6.7, platelets dropped to 44. He is scheduled to receive 1 unit of PRBCs. He still requires small dose of vasopressors. Blood cultures still show no growth to date, he remain on zosyn, Levaquin and vancomycin. His did have a temperature of 101, repeat blood cultures have been drawn. He is receiving tube feedings per dietary recommendations. Objective - Vital Signs Vital signs: Vital Signs Temp 98.6 F 06/09/18 08:00 Pulse 70 06/09/18 12:16 Resp 25 H 06/09/18 11:00 BP 138/54 06/09/18 11:00 Pulse Ox 96 06/09/18 11:00 Intake & Output 06/08/18 06/09/18 06/09/18 18:59 06:59 18:59 Intake Total 2977.241 591.058 160.045 Output Total 730 525 268 Balance 2247.241 66.058 -107.955 Weight 101.1 kg 98.6 kg 98.6 kg Intake: IV 2240 240 100 LR 2000 Sodium Chloride 0.9% 1, 240 240 100 000 ml @ 20 mls/hr IV . Q24H [facility] Rx#:[id number] Intake, IV Titration 737.241 351.058 60.045 Amount Norepinephrine 16 mg In 25.813 124.637 Sodium Chloride 0.9% 250 ml @ Titrate IV .Q0M [facility] Rx#:[id number] Norepinephrine 4 mg In 281.188 Sodium Chloride 0.9% 250 ml @ Titrate IV .Q0M [facility] Rx#:[id number] Piperacillin-Tazobactam 3 100 50 .375 gm In Dextrose/Water 1 50ml.bag @ 12.5 mls/hr IVPB Q8HR [facility] Rx#: [id number] Propofol 1,000 mg In 80.24 176.421 60.045 Empty Bag 1 bag @ Titrate IV .Q0M [facility] Rx#: [id number] Vancomycin 1,500 mg In 250 Sodium Chloride 0.9% 250 ml @ 125 mls/hr IVPB ONCE ONE Rx#:[id number] Output: Urine 430 525 268 Other 300 Other: Voiding Method Indwelling Catheter Indwelling Catheter Indwelling Catheter # Bowel Movements 0 ABP, PAP, CO, CI - Last Documented Arterial Blood Pressure 130/45 - Exam - Constitutional Constitutional Comment(s): Intubated General appearance: Present: no acute distress - EENT Eyes: Present: PERRLA, normal appearance - Respiratory Respiratory: bilateral: CTA, negative: rales, rhonchi, wheezing - Cardiovascular Heart sounds: normal: S1, S2 - Gastrointestinal General gastrointestinal: Present: normal bowel sounds, soft. Absent: distended , hepatomegaly, organomegaly, tenderness - Neurologic Neurologic Comment(s): Patient is intubated and sedated Neurologic: Absent: focal deficits - Musculoskeletal Musculoskeletal Comment(s): intubated and sedated - Labs CBC & Chem 7: 06/09/18 05:00 06/09/18 05:00 Labs: Abnormal Lab Results - Last 24 Hours (Table) 06/08/18 06/09/18 06/09/18 Range/Units 18:20 00:06 00:08 RBC (4.30-5.90) m/uL Hgb (13.0-17.5) gm/dL Hct (39.0-53.0) % RDW (11.5-15.5) % Plt Count (150-450) k/uL Lymphocytes # (1.0-4.8) k/uL ABG pO2 (83-108) mmHg ABG HCO3 (21-25) mmol/L ABG Total CO2 (19-24) mmol/L ABG O2 Saturation (94-97) % BUN (9-20) mg/dL Creatinine (0.66-1.25) mg/dL POC Glucose (mg/dL) 164 H 71 L 70 L (75-99) mg/dL Calcium (8.4-10.2) mg/dL Crossmatch 06/09/18 06/09/18 06/09/18 Range/Units 00:48 01:38 03:06 RBC (4.30-5.90) m/uL Hgb (13.0-17.5) gm/dL Hct (39.0-53.0) % RDW (11.5-15.5) % Plt Count (150-450) k/uL Lymphocytes # (1.0-4.8) k/uL ABG pO2 (83-108) mmHg ABG HCO3 (21-25) mmol/L ABG Total CO2 (19-24) mmol/L ABG O2 Saturation (94-97) % BUN (9-20) mg/dL Creatinine (0.66-1.25) mg/dL POC Glucose (mg/dL) 170 H 118 H 107 H (75-99) mg/dL Calcium (8.4-10.2) mg/dL Crossmatch 06/09/18 06/09/18 06/09/18 Range/Units 05:00 05:00 05:06 RBC 2.00 L (4.30-5.90) m/uL Hgb 6.7 L* D (13.0-17.5) gm/dL Hct 18.9 L* (39.0-53.0) % RDW 16.0 H (11.5-15.5) % Plt Count 44 L D (150-450) k/uL Lymphocytes # 0.5 L (1.0-4.8) k/uL ABG pO2 117 H (83-108) mmHg ABG HCO3 27 H (21-25) mmol/L ABG Total CO2 28 H (19-24) mmol/L ABG O2 Saturation 100.0 H (94-97) % BUN 44 H (9-20) mg/dL Creatinine 5.48 H (0.66-1.25) mg/dL POC Glucose (mg/dL) (75-99) mg/dL Calcium 7.8 L (8.4-10.2) mg/dL Crossmatch 06/09/18 06/09/18 06/09/18 Range/Units 05:45 08:42 09:50 RBC (4.30-5.90) m/uL Hgb (13.0-17.5) gm/dL Hct (39.0-53.0) % RDW (11.5-15.5) % Plt Count (150-450) k/uL Lymphocytes # (1.0-4.8) k/uL ABG pO2 (83-108) mmHg ABG HCO3 (21-25) mmol/L ABG Total CO2 (19-24) mmol/L ABG O2 Saturation (94-97) % BUN (9-20) mg/dL Creatinine (0.66-1.25) mg/dL POC Glucose (mg/dL) 109 H 104 H (75-99) mg/dL Calcium (8.4-10.2) mg/dL Crossmatch See Detail 06/09/18 Range/Units 11:53 RBC (4.30-5.90) m/uL Hgb (13.0-17.5) gm/dL Hct (39.0-53.0) % RDW (11.5-15.5) % Plt Count (150-450) k/uL Lymphocytes # (1.0-4.8) k/uL ABG pO2 (83-108) mmHg ABG HCO3 (21-25) mmol/L ABG Total CO2 (19-24) mmol/L ABG O2 Saturation (94-97) % BUN (9-20) mg/dL Creatinine (0.66-1.25) mg/dL POC Glucose (mg/dL) 106 H (75-99) mg/dL Calcium (8.4-10.2) mg/dL Crossmatch Microbiology - Last 24 Hours (Table) 06/08/18 05:18 Urine Culture - Final Urine,Catheterized 06/09/18 04:34 Sputum Culture - Preliminary Sputum 06/04/18 01:10 Blood Culture - Preliminary Blood No Growth after 120 hours Assessment and Plan Plan: #1 acute hypoxic respiratory failure likely secondary to pneumonia with the possibility include volume overload. BNP elevated. Echocardiogram decreased to 30-35%. Patient currently intubated and sedated with propofol, remains on norepinephrine. Patient has poor compliance and has been intubated briefly in the past because of his hypoxia and hypercarbia. Pulmonary consulted due to patient's increased morbidity and poor compliance. #2 sepsis with septic shock secondary to gram negative Multifocal pneumonia/ interstitial pneumonia. Mycoplasma negative. Waiting for Legionella urinary antigen results. Continue patient on levofloxacin, vancomycin and Zosyn. Avoid IV fluids as patient is in volume overload from end-stage kidney disease. Lactic acid is normal. Continue DuoNeb for breathing treatments. Tylenol for fever. Status post fluid bolus in the ER. Pro-calcitonin positive. Consult ordered for Infectious Diseases. #3 troponinemia likely secondary to end-stage renal disease/acute non ST elevated [place], no coronary artery disease cannot be ruled out. EKG with no signs of ST changes. Troponin 3 ordered patient has no history of coronary artery disease. Echocardiogram decreased to 30-35%. Cardiology consult #4 hyperkalemia secondary to noncompliance to dialysis. Status post sodium bicarb and insulin. Repeat potassium 4.1. Continue with Dialysis. #5 metabolic encephalopathy likely secondary to sepsis with possible hypercarbia. Patient was briefly on BiPAP currently on 4 L of nasal cannula, currently intubated. #6 type 2 diabetes insulin-dependent continue levemer there 27 units daily with 9 units with meals. Sliding scale ordered. #7 chronic diastolic heart failure. Echocardiogram decreased and pending cardiology consult. Monitor input and output. Daily weights. Continue patient on Bumex 4 mg in the morning and 2 mg at bedtime. Continue diltiazem 180 mg by mouth daily , continue metoprolol and 50 mg twice a day . Lisinopril 20 mg by mouth twice a day #8 diabetic neuropathy continue Lyrica at 50 mg bedtime #9 End stage renal disease on hemodialysis Friday. Continue PhosLo. Nephrology on consult, underwent emergent dialysis last night. #10 MONTSE noncompliant to CPAP #11 CAD status post PCI to the RCA. Continue aspirin 81 mg Lipitor 80 mg by mouth daily continue metoprolol 150 mg twice a day, diltiazem 180 mg daily #12 thrombocytopenia with splenomegaly which is alcohol induced. It is chronically low. Watch for medications that can drop the platelets will hold anticoagulation therapy #13 anxiety, depression continue Abilify #14 peripheral artery disease continue aspirin watch for platelet drop. Repeat CBC tomorrow #15 degenerative disc disease of cervical spine status post-ACDF continue [place] and [place] Contin #16 DVT prophylaxis with mechanical prophylaxis knee-high RYAN hose #17 GI prophylaxis continue with PPIs #18 chronic Anemia related to iron deficency- iron profile ordered. #[address] with no contrast showed splenomegaly with collateral blood vessels at the upper abdomen with small right sided pleural effusion. #20. PT evaluation. The above impression and plan of care have been discussed and directed by signing physician. Delilah Rodriguez nurse practitioner acting as scribe for signing physician.
[2018-06-09 18:32] LABS: Glucose,Whole Blood 196 mg/dL (75-99)
[2018-06-09 20:12] LABS: Anisocytosis Slight; MCH 32.9 pg (25.0-35.0); MCHC 34.6 g/dL (31.0-37.0); Mean Platelet Volume 9.7; Platelet Count 33 k/uL (150-450); Poikilocytosis Slight; RBC 1.99 m/uL (4.30-5.90); RDW 16.6 % (11.5-15.5); WBC 5.2 k/uL (3.8-10.6)
[2018-06-09 20:14] LABS: HCT 18.9 % (39.0-53.0); HGB 6.6 gm/dL (13.0-17.5)
[2018-06-10 00:13] LABS: Anisocytosis Slight; MCH 33.5 pg (25.0-35.0); MCHC 35.4 g/dL (31.0-37.0); MCV 94.7 fL (80.0-100.0); Mean Platelet Volume 9.9; Poikilocytosis Slight; RBC 2.05 m/uL (4.30-5.90); RDW 16.6 % (11.5-15.5); WBC 3.9 k/uL (3.8-10.6)
[2018-06-10 00:19] LABS: HCT 19.4 % (39.0-53.0); HGB 6.9 gm/dL (13.0-17.5)
[2018-06-10 00:21] LABS: Platelet Count 29 k/uL (150-450)
[2018-06-10] MEDS: HYDROCORTISONE SUCCINATE 100 MG/2 ML VIAL IV SCH ×4 (00:25→23:06)
[2018-06-10 00:28] LABS: Glucose,Whole Blood 235 mg/dL (75-99)
[2018-06-10] MEDS: PROPOFOL 1,000 MG in EMPTY BAG 1 BAG IV SCH ×3 (00:57→08:17)
[2018-06-10] MEDS: IPRATROPIUM-ALBUTEROL 3 ML NEB INHALATION SCH ×7 (01:16→20:25)
[2018-06-10] MEDS: NOREPINEPHRINE 16 MG in SODIUM CHLORIDE 0.9% 250 ML IV SCH (01:53)
[2018-06-10] MEDS: SODIUM CHLORIDE 0.9% 1,000 ML IV SCH ×2 (03:50→03:51)
[2018-06-10 04:45] LABS: Calcium 7.7 mg/dL (8.4-10.2); Magnesium 2.2 mg/dL (1.6-2.3); Phosphorus 6.6 mg/dL (2.5-4.5); Potassium 4.4 mmol/L (3.5-5.1)
[2018-06-10 04:50] LABS: Vancomycin,Random 27.2 ug/mL
[2018-06-10] MEDS ORDERED: LEVOFLOXACIN 500MG-D5W PMX 500 MG in DEXTROSE/WATER 1 100ML.BAG IVPB SCH (05:00)
[2018-06-10 05:52] LABS: ABG Base Excess -0.4 mmol/L; ABG HCO3 25 mmol/L (21-25); ABG PCO2 40 mmHg (35-45); ABG PH 7.39 (7.35-7.45); ABG PO2 104 mmHg (83-108); ABG TCO2 26 mmol/L (19-24)
--- NOTE | 2018-06-10 06:38 | XR ---
EXAMINATION TYPE: XR chest 1V DATE OF EXAM: 06/10/2018 CLINICAL HISTORY: Difficulty breathing progress study. TECHNIQUE: Single AP portable semiupright view of the chest is obtained. COMPARISON: Chest x-ray from one day earlier and older studies. FINDINGS: Anterior fusion plate lower cervical spine is partially imaged on current study. There is stable endotracheal tube, orogastric tube, and left internal jugular central venous catheter. Cardiac silhouette size is stable and enlarged. There is suspected coronary stent in the RCA distribution. T here is persistent bibasilar and bilateral upper lung opacities. No significant pleural effusion or p neumothorax is evident bilaterally. IMPRESSION: Overall stable findings, cardiac megaly with persistent persistent bilateral apical and basilar edema and/or infiltrates.
--- NOTE | 2018-06-10 06:57 | P.PN ---
Subjective Progress Note Date: 06/10/18 Principal diagnosis: SNTEMI This is a pleasant 57-year-old gentleman with history of end-stage renal disease on hemodialysis, hypertension, insulin requiring diabetes, CAD with prior stenting. 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 He presented to the hospital primary complaining of not feeling well overall mild confusion and fever. We were asked to the patient in consultation due to elevated troponin with initial troponin of 0.651 second troponin 2.6 and third troponin 3.5. Patient was initially febrile. Hemoglobin is improved at 9.0 and platelet count is 84 heparin; and anti-platelets have been avoided. Started the patient on oral nitrates. Echocardiogram with Doppler came back to show an ejection fraction of 30-35% with anterior septal, inferior and septal hypokinesis. The night before the last night, rapid response team was called for this patient due to respiratory distress, acute hypoxemic and hypercapnic respiratory failure. Patient was bradycardic. CODE BLUE was called. Patient was emergently intubated. Upon examination, patient remains sedated on propofol. On follow-up with the patient today, 06/10/2018, the patient continues to be intubated on ventilator. He continues to be hemodynamically stable and off the Levophed. The hemoglobin was 6.7 yesterday and the patient received one unit of packed RBC would not have a hemoglobin from this morning. Objective - Vital Signs Vital signs: Vital Signs Temp 97.8 F 06/10/18 04:00 Pulse 59 L 06/10/18 06:00 Resp 24 06/10/18 06:00 BP 137/58 06/10/18 06:00 Pulse Ox 99 06/10/18 06:00 Intake & Output 06/09/18 06/09/18 06/10/18 06:59 18:59 06:59 Intake Total 591.058 956.433 2888.495 Output Total 525 557 525 Balance 66.058 422.595 750.495 Weight 98.6 kg 98.6 kg 100 kg Intake: IV 240 240 240 Sodium Chloride 0.9% 1, 240 240 240 000 ml @ 20 mls/hr IV . Q24H [facility] Rx#:[id number] Intake, IV Titration 351.058 259.595 332.495 Amount Norepinephrine 16 mg In 124.637 99.550 1.844 Sodium Chloride 0.9% 250 ml @ Titrate IV .Q0M [facility] Rx#:[id number] Piperacillin-Tazobactam 3 150 .375 gm In Dextrose/Water 1 50ml.bag @ 12.5 mls/hr IVPB Q12HR [facility] Rx#: [id number] Piperacillin-Tazobactam 3 50 .375 gm In Dextrose/Water 1 50ml.bag @ 12.5 mls/hr IVPB Q8HR [facility] Rx#: [id number] Propofol 1,000 mg In 176.421 160.045 180.651 Empty Bag 1 bag @ Titrate IV .Q0M [facility] Rx#: [id number] Oral 200 Tube Feeding 140 473 Blood Product 310 Rc As-1 Unit 310 [id number] Other 30 30 Output: Urine 525 557 525 Other: Voiding Method Indwelling Catheter Indwelling Catheter Indwelling Catheter # Voids 1 # Bowel Movements 0 0 ABP, PAP, CO, CI - Last Documented Arterial Blood Pressure 136/44 - Constitutional General appearance: Present: no acute distress - Respiratory Respiratory: bilateral: rales - Cardiovascular Rhythm: regular Heart sounds: normal: S1, S2 - Labs CBC & Chem 7: 06/09/18 Unknown 06/10/18 04:25 Labs: Abnormal Lab Results - Last 24 Hours (Table) 06/09/18 06/09/18 06/09/18 Range/Units 00:08 05:00 08:42 RBC 2.00 L (4.30-5.90) m/uL Hgb 6.7 L* D (13.0-17.5) gm/dL Hct 18.9 L* (39.0-53.0) % RDW 16.0 H (11.5-15.5) % Plt Count 44 L D (150-450) k/uL Lymphocytes # 0.5 L (1.0-4.8) k/uL ABG Total CO2 (19-24) mmol/L ABG O2 Saturation (94-97) % BUN (9-20) mg/dL Creatinine (0.66-1.25) mg/dL Glucose (74-99) mg/dL POC Glucose (mg/dL) 70 L (75-99) mg/dL Calcium (8.4-10.2) mg/dL Phosphorus (2.5-4.5) mg/dL Crossmatch See Detail 06/09/18 06/09/18 06/09/18 Range/Units 09:50 11:53 18:21 RBC (4.30-5.90) m/uL Hgb (13.0-17.5) gm/dL Hct (39.0-53.0) % RDW (11.5-15.5) % Plt Count (150-450) k/uL Lymphocytes # (1.0-4.8) k/uL ABG Total CO2 (19-24) mmol/L ABG O2 Saturation (94-97) % BUN (9-20) mg/dL Creatinine (0.66-1.25) mg/dL Glucose (74-99) mg/dL POC Glucose (mg/dL) 104 H 106 H 196 H (75-99) mg/dL Calcium (8.4-10.2) mg/dL Phosphorus (2.5-4.5) mg/dL Crossmatch 06/09/18 06/09/18 06/10/18 Range/Units Unknown 23:59 00:16 RBC 1.99 L 2.05 L (4.30-5.90) m/uL Hgb 6.6 L* 6.9 L* (13.0-17.5) gm/dL Hct 18.9 L* 19.4 L* (39.0-53.0) % RDW 16.6 H 16.6 H (11.5-15.5) % Plt Count 33 L 29 L (150-450) k/uL Lymphocytes # (1.0-4.8) k/uL ABG Total CO2 (19-24) mmol/L ABG O2 Saturation (94-97) % BUN (9-20) mg/dL Creatinine (0.66-1.25) mg/dL Glucose (74-99) mg/dL POC Glucose (mg/dL) 235 H (75-99) mg/dL Calcium (8.4-10.2) mg/dL Phosphorus (2.5-4.5) mg/dL Crossmatch 06/10/18 06/10/18 Range/Units 04:25 05:48 RBC (4.30-5.90) m/uL Hgb (13.0-17.5) gm/dL Hct (39.0-53.0) % RDW (11.5-15.5) % Plt Count (150-450) k/uL Lymphocytes # (1.0-4.8) k/uL ABG Total CO2 26 H (19-24) mmol/L ABG O2 Saturation 100.0 H (94-97) % BUN 59 H (9-20) mg/dL Creatinine 6.44 H (0.66-1.25) mg/dL Glucose 233 H (74-99) mg/dL POC Glucose (mg/dL) (75-99) mg/dL Calcium 7.7 L (8.4-10.2) mg/dL Phosphorus 6.6 H (2.5-4.5) mg/dL Crossmatch Microbiology - Last 24 Hours (Table) 06/04/18 01:10 Blood Culture - Final Blood No Growth after 144 hours 06/09/18 12:15 Urine Culture - Preliminary Urine,Catheterized 06/09/18 04:34 Gram Stain - Preliminary Sputum Sputum Culture - Preliminary 06/08/18 05:18 Urine Culture - Final Urine,Catheterized Assessment and Plan Assessment: Assessment Acute non-ST elevation myocardial infarction Coronary artery disease and prior stenting End stage renal disease on hemodialysis Plan Continue the current medical regimen Follow up with the CBC this AM. Possible extubation in the next 24 hours Follow-up with the patient
[2018-06-10] MEDS: INSULIN ASPART 100 UNIT/ML 1 ML 10 ML VIAL SQ SCH ×5 (08:19→21:26)
[2018-06-10 08:22] LABS: Glucose,Whole Blood 287 mg/dL (75-99)
[2018-06-10] MEDS: PANTOPRAZOLE 40 MG/10 ML VIAL IVP SCH (08:22)
[2018-06-10] MEDS: LACTULOSE 20 GM/30 ML CUP PO SCH ×2 (08:23→21:27)
[2018-06-10] MEDS: ARIPiprazole 5 MG TAB PO SCH (08:24)
[2018-06-10] MEDS: CHOLECALCIFEROL 1,000 UNIT TAB PO SCH (08:24)
[2018-06-10] MEDS: CHLORHEXIDINE GLUCONATE 15 ML CUP MUCOUS MEM SCH ×2 (08:26→20:09)
[2018-06-10] MEDS: DILTIAZEM CD 180 MG CAP.ER.24H PO SCH (08:27)
[2018-06-10] MEDS: PIPERACILLIN-TAZOBACTAM 3.375 GM in DEXTROSE/WATER 1 50ML.BAG IVPB SCH ×2 (08:27→21:27)
--- NOTE | 2018-06-10 09:00 | P.PN ---
Subjective Progress Note Date: 06/10/18 Principal diagnosis: Acute hypoxic and hypercapnic respiratory failure secondary to underlying pneumonia This is a 57-year-old white male with history of multiple medical problems including chronic renal failure, on hemodialysis. Patient is also known to history of coronary artery disease, previous PCI, stenting of RCA 3 stents total in 2013. History of hypertension, cardiovascular disease, type 2 diabetes , diabetic neuropathy, history of alcohol abuse with associated thrombocytopenia and splenomegaly, patient had previous history of metabolic encephalopathy treated in June of 2017, history of diastolic congestive heart failure, admitted this time with mostly symptoms of generalized weakness, confusion, and change in mental status. Patient has also been complaining of some shortness of breath, chest x-ray was suggestive of interstitial edema, his BNP level was elevated, troponin was also elevated, received Lasix in the ER, and there was a significant improvement in his overall pulmonary status patient apparently diuresed significantly although he doesn't usually make much urine since he is a renal failure patient. By the time I saw the patient on consultation, he had no active pulmonary symptoms whatsoever. Patient was relatively asymptomatic, no cough no wheezing no shortness of breath. However apparently when he was admitted there was a concern that the patient may have sepsis because his lactic acid was 1.7. And he was placed empirically on antibiotics for presumptive pneumonia, although the findings on the chest x-ray and the clinical findings are mostly findings of interstitial edema. Again I strongly doubt pneumonia. During my evaluation, the patient was basically asymptomatic. He had no chest pain no cough no wheezing no fever no chills no hemoptysis and no chest pain. Troponin was noted to be a bit higher compared to the morning troponin. His BNP level was over 17,600. Reevaluated today on 06/05/2018, patient is presently on dialysis, he had 1 dialysis done last night, he continues to feel much better. Denies any shortness of breath, no cough, no wheezing, no chest pain. However the patient spiked a temp last night, he had a temp of 101.1 and his temp now is 99.7. Patient is on room air, O2 saturations 97%, blood pressure is normal 132/79. Heart rate is 76. All labs were reviewed, he does not have leukocytosis, basic metabolic profile is normal BUN is 44 creatinine is 4.78. Reviewed the chest x- ray again, clearly consistent with interstitial edema. Remind me patient had a significantly elevated BNP level on admission. Reevaluated today on 06/06/2018, had his dialysis yesterday, and 2 L of fluids were removed. Patient continues to feel better clinically, no shortness of breath no cough no wheezing. No fever no chills, no chest pain, no hemoptysis. Chest x-ray today showed definite improvement compared to previous x-rays, and clinically the patient is showing definite improvement in his room air saturation is 97%. Hemodynamically remained stable all along since admission. Patient was reevaluated today on 06/07/2018, feels great, basically asymptomatic. Denies any shortness of breath, no cough, no wheezing, no fever, no chills, no hemoptysis, no nausea no vomiting no abdominal pain. His last hemodialysis was on Friday. I believe he would have another dialysis tomorrow. Pulmonary-cast the patient is doing great. Labs were reviewed WBC count is 4.5 hemoglobin is 7.9. His BUN is 54 creatinine is 5.98. Potassium is a bit elevated at 5.6. Patient was seen by cardiology today, and advised to continue current medical regimen, advised to continue beta blockers, patient did have acute non-ST elevation myocardial infarction on admission. On 06/08/2018 patient seen in the intensive care unit. Sometime at midnight on 06/08/2018 there was a rapid response team called for a concern of respiratory distress, and acute hypoxemic and hypercapnic respiratory failure. Was emergently intubated, and this morning patient is seen intubated, sedated, on mechanical ventilator. Current IV fluids are 0.9 normal saline at a rate of 25 ML per hour, levofed at 20 mics per minute, Diprivan and is at 25 mcg/kg/min. patient had emergent hemodialysis last night, would removal of 300 mL of fluid. And was not given any IV boluses in view of his acute on chronic renal failure. This morning blood work has been reviewed, there has been acute elevation of white blood count, to 18.4, hemoglobin is 9.5, electrolytes were within normal limits, there has been improvement in his renal profile, BUN was down to 33, creatinine is down to 3.64, patient is making small amounts of urine , in the range of 5-10 ML per hour. Antibiotic coverage includes Zosyn, Levaquin and vancomycin. Blood and urine cultures were collected, and showed no growth. he has some thick yellow sputum being suctioned from the ET tube. Today's chest x-ray has been reviewed by Dr. Otoole, and showed left lower lobe infiltrate. This morning's blood gas has been reviewed, and showed pO2 of 3:15 , pCO2 57, pH of 7.30, this was done on settings of assist control mode with a rate of 16, tidal volume of 360, FiO2 of 100%, and PEEP of 5. FiO2 was dropped down to 50%. We will make further adjustments to the vent settings we will increase the rate to 24, tidal volume decreased to 450, FiO2 50% and PEEP of 5. Patient's spouse is at the bedside, her rash was to continue with full code, and supportive treatment. On 06/09/2018 patient seen again in the intensive care unit. He remains intubated, sedated, on mechanical ventilator, current vent settings assist- control mode with a rate of 24, tidal volume 450, FiO2 50%, and PEEP of 5. This morning blood gases showed pO2 of 117, pCO2 42, pH of 7.42, FiO2 was dropped to 40% based on those blood gases. This morning's labs show WBC of 6.2 , hemoglobin is down to 6.7, from 9.0 yesterday, platelet count is down to 44, electrolyte panel is within normal limits, BUN 24, creatinine is 5.48. Random serum cortisol level was 14. Yesterday we gave the patient additional 2 L IV bolus of lactated Ringer's, and levo fed dose is down to 9 mics per minute this morning. Maintenance IV fluids 0.9 at 20 ML per hour. To prevent is 50 mics per kilo per minute. Blood cultures remain negative thus far, her antibiotic coverage includes Zosyn, Levaquin, and vancomycin. No signs of GI bleeding, occult blood stool was negative. Today's chest x-ray has been reviewed, and shows improvement in the appearance of bilateral airspace disease and pulmonary edema. Patient is producing urine, in the order 45-60 ML per hour. Patient does have intermittent low-grade fevers, with a T-max of 100.2F. Lung sounds are clear to auscultation. Dietary has been consulted for to proceeding recommendations. On 06/10/2018 patient seen in follow-up. He remains sedated, intubated on mechanical ventilation, current vent settings are assist-control mode with a rate of 24 breaths per minute, tidal volume of 450, FiO2 is 40% and PEEP of 5. Blood gases were done on those settings, and showed pO2 of 104, pCO2 40, and pH of 7.39. Today's chest x-ray has been reviewed by Dr. Otoole, and shows mild CHF. Yesterday patient was given a dose of IV Lasix, and transfused with 1 unit of packed red blood cells, today's CBC is pending, BMP shows sodium is 139 , potassium is 4.4, chloride is 104, CO2 is 24, BUN of 59, and creatinine of 6.44. Cultures remain negative thus far. Patient is afebrile, maintenance IV fluids include 0.9 normal saline at a rate of 20 ML per hour, levo fed and has been weaned off, propofol is currently at 50 mics per kilo per minute, patient has 2 feedings infusing Nepro at 43 ML per hour, with a goal of 43. Tolerating it well. Lung sounds are clear to auscultation. No acute issues overnight. Patient continues on antibiotic coverage includes Zosyn and Levaquin and vancomycin. She is producing urine, 30-35 ML per hour. We will give the patient is a sedation holiday today, assess readiness for spontaneous breathing trial. Objective - Vital Signs Vital signs: Vital Signs Temp 97.8 F 06/10/18 04:00 Pulse 56 L 06/10/18 07:00 Resp 24 06/10/18 07:00 BP 137/58 06/10/18 07:00 Pulse Ox 99 06/10/18 07:00 Intake & Output 06/09/18 06/10/18 06/10/18 18:59 06:59 18:59 Intake Total 361.926 2488.495 161.521 Output Total 557 525 30 Balance 422.595 750.495 131.521 Weight 98.6 kg 100 kg Intake: IV 240 240 20 Sodium Chloride 0.9% 1, 240 240 20 000 ml @ 20 mls/hr IV . Q24H NATHAN Rx#:[id number] Intake, IV Titration 259.595 332.495 98.521 Amount Norepinephrine 16 mg In 99.550 1.844 Sodium Chloride 0.9% 250 ml @ Titrate IV .Q0M NATHAN Rx#:[id number] Piperacillin-Tazobactam 3 150 .375 gm In Dextrose/Water 1 50ml.bag @ 12.5 mls/hr IVPB Q12HR NATHAN Rx#: [id number] Propofol 1,000 mg In 160.045 180.651 98.521 Empty Bag 1 bag @ Titrate IV .Q0M NATHAN Rx#: [id number] Oral 200 Tube Feeding 140 473 43 Blood Product 310 Rc As-1 Unit 310 [id number] Other 30 30 Output: Urine 557 525 30 Other: Voiding Method Indwelling Catheter Indwelling Catheter # Voids 1 # Bowel Movements 0 ABP, PAP, CO, CI - Last Documented Arterial Blood Pressure 130/43 - Exam GENERAL EXAM: Intubated, sedated, 57-year-old white male in no apparent distress. HEAD: Normocephalic/atraumatic. EYES: Normal reaction of pupils, equal size. Conjunctiva pink, sclera white. NOSE: Clear with pink turbinates. THROAT: No erythema or exudates. NECK: No masses, no JVD, no thyroid enlargement, no adenopathy. CHEST: No chest wall deformity. Symmetrical expansion. LUNGS: Equal air entry with no crackles, wheeze, rhonchi or dullness. CVS: Regular rate and rhythm, normal S1 and S2, no gallops, no murmurs, no rubs ABDOMEN: Soft, nontender. No hepatosplenomegaly, normal bowel sounds, no guarding or rigidity. EXTREMITIES: No clubbing, no edema, no cyanosis, 2+ pulses and upper and lower extremities. MUSCULOSKELETAL: Muscle strength and tone normal. SPINE: No scoliosis or deformity SKIN: No rashes CENTRAL NERVOUS SYSTEM: Intubated, and sedated. No focal deficits, tone is normal in all 4 extremities. PSYCHIATRIC: Unable to assess, patient is intubated. - Labs CBC & Chem 7: 06/09/18 Unknown 06/10/18 04:25 Labs: Abnormal Lab Results - Last 24 Hours (Table) 06/09/18 06/09/18 06/09/18 Range/Units 08:42 09:50 11:53 RBC (4.30-5.90) m/uL Hgb (13.0-17.5) gm/dL Hct (39.0-53.0) % RDW (11.5-15.5) % Plt Count (150-450) k/uL ABG Total CO2 (19-24) mmol/L ABG O2 Saturation (94-97) % BUN (9-20) mg/dL Creatinine (0.66-1.25) mg/dL Glucose (74-99) mg/dL POC Glucose (mg/dL) 104 H 106 H (75-99) mg/dL Calcium (8.4-10.2) mg/dL Phosphorus (2.5-4.5) mg/dL Crossmatch See Detail 06/09/18 06/09/18 06/09/18 Range/Units 18:21 Unknown 23:59 RBC 1.99 L 2.05 L (4.30-5.90) m/uL Hgb 6.6 L* 6.9 L* (13.0-17.5) gm/dL Hct 18.9 L* 19.4 L* (39.0-53.0) % RDW 16.6 H 16.6 H (11.5-15.5) % Plt Count 33 L 29 L (150-450) k/uL ABG Total CO2 (19-24) mmol/L ABG O2 Saturation (94-97) % BUN (9-20) mg/dL Creatinine (0.66-1.25) mg/dL Glucose (74-99) mg/dL POC Glucose (mg/dL) 196 H (75-99) mg/dL Calcium (8.4-10.2) mg/dL Phosphorus (2.5-4.5) mg/dL Crossmatch 06/10/18 06/10/18 06/10/18 Range/Units 00:16 04:25 05:48 RBC (4.30-5.90) m/uL Hgb (13.0-17.5) gm/dL Hct (39.0-53.0) % RDW (11.5-15.5) % Plt Count (150-450) k/uL ABG Total CO2 26 H (19-24) mmol/L ABG O2 Saturation 100.0 H (94-97) % BUN 59 H (9-20) mg/dL Creatinine 6.44 H (0.66-1.25) mg/dL Glucose 233 H (74-99) mg/dL POC Glucose (mg/dL) 235 H (75-99) mg/dL Calcium 7.7 L (8.4-10.2) mg/dL Phosphorus 6.6 H (2.5-4.5) mg/dL Crossmatch 06/10/18 Range/Units 08:11 RBC (4.30-5.90) m/uL Hgb (13.0-17.5) gm/dL Hct (39.0-53.0) % RDW (11.5-15.5) % Plt Count (150-450) k/uL ABG Total CO2 (19-24) mmol/L ABG O2 Saturation (94-97) % BUN (9-20) mg/dL Creatinine (0.66-1.25) mg/dL Glucose (74-99) mg/dL POC Glucose (mg/dL) 287 H (75-99) mg/dL Calcium (8.4-10.2) mg/dL Phosphorus (2.5-4.5) mg/dL Crossmatch Microbiology - Last 24 Hours (Table) 06/04/18 01:10 Blood Culture - Final Blood No Growth after 144 hours 06/09/18 12:15 Urine Culture - Preliminary Urine,Catheterized 06/09/18 04:34 Gram Stain - Preliminary Sputum Sputum Culture - Preliminary 06/08/18 05:18 Urine Culture - Final Urine,Catheterized Assessment and Plan Plan: Assessment: 1 acute pulmonary edema, most likely secondary to fluid overload secondary to chronic renal failure, and secondary to systolic dysfunction, his ejection fraction on the echocardiogram showed 30%. Significant anteroseptal hypokinesis noted. 2 possibility of pneumonia is not entirely ruled out, especially with elevated pro calcitonin level hence would recommend we continue antibiotics. 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 8 end-stage renal disease, on hemodialysis. 9 type 2 diabetes 10 hyperkalemia secondary to renal failure, patient apparently has been noncompliant with dialysis. Nephrology is following. 11 acute non-ST elevation myocardial infarction 12 Secondary adrenal insufficiency Plan: Proceed with sedation holiday, with the patient is awake, we'll assess neurological status, and proceed with assessment for spontaneous breathing trials. Continue with current antibiotic coverage, Levophed has been weaned off. Continue stress doses of hydrocortisone, GI and DVT prophylaxis. We'll continue to follow. I performed a history & physical examination of the patient and discussed their management with my nurse practitioner, Yumiko Matta. I reviewed the nurse practitioner's note and agree with the documented findings and plan of care. Lung sounds are positive for clear sounds. The findings and the impression was discussed with the patient. I attest to the documentation by the nurse practitioner. Time with Patient: Greater than 30
[2018-06-10] MEDS: guaiFENesin 600 MG TABLET.ER PO SCH ×2 (09:05→21:26)
[2018-06-10] MEDS: INSULIN DETEMIR 100 UNIT/ML 10 ML VIAL SQ SCH (09:54)
--- NOTE | 2018-06-10 10:20 | P.PN ---
Subjective Patient is seen in follow-up for end-stage renal disease. He is maintained on hemodialysis on a Friday schedule via left upper extremity AV fistula. Patient had a cardiac arrest from hyperkalemia. Patient was emergently hemodialyzed and potassium level normalized. He is currently off Levophed. Patient did receive a blood transfusion yesterday. This morning's hemoglobin is pending. Cultures remain negative so far. Patient was extubated this morning. Patient was seen while undergoing hemodialysis. Vital signs stable. General: The patient appeared well nourished and normally developed. HEENT: Head exam is unremarkable. Neck is without jugular venous distension. LUNGS: Breath sounds decreased. HEART: Rate and Rhythm are regular. First and second heart sounds normal. No murmurs, rubs or gallops. ABDOMEN: Abdominal exam reveals normal bowel sounds. Non-tender and non- distended. No evidence of peritonitis. EXTREMITITES: No clubbing, cyanosis, or edema. Objective - Vital Signs Vital signs: Vital Signs Temp 97.8 F 06/10/18 04:00 Pulse 56 L 06/10/18 07:00 Resp 24 06/10/18 07:00 BP 137/58 06/10/18 07:00 Pulse Ox 99 06/10/18 07:00 Intake & Output 06/09/18 06/10/18 06/10/18 18:59 06:59 18:59 Intake Total 932.874 9781.495 177.297 Output Total 557 525 30 Balance 422.595 750.495 147.297 Weight 98.6 kg 100 kg Intake: IV 240 240 20 Sodium Chloride 0.9% 1, 240 240 20 000 ml @ 20 mls/hr IV . Q24H NATHAN Rx#:[id number] Intake, IV Titration 259.595 332.495 114.297 Amount Norepinephrine 16 mg In 99.550 1.844 Sodium Chloride 0.9% 250 ml @ Titrate IV .Q0M NATHAN Rx#:[id number] Piperacillin-Tazobactam 3 150 .375 gm In Dextrose/Water 1 50ml.bag @ 12.5 mls/hr IVPB Q12HR NATHAN Rx#: [id number] Propofol 1,000 mg In 160.045 180.651 114.297 Empty Bag 1 bag @ Titrate IV .Q0M NATHAN Rx#: [id number] Oral 200 Tube Feeding 140 473 43 Blood Product 310 Rc As-1 Unit 310 [id number] Other 30 30 Output: Urine 557 525 30 Other: Voiding Method Indwelling Catheter Indwelling Catheter # Voids 1 # Bowel Movements 0 ABP, PAP, CO, CI - Last Documented Arterial Blood Pressure 130/43 - Labs CBC & Chem 7: 06/09/18 Unknown 06/10/18 04:25 Labs: Abnormal Lab Results - Last 24 Hours (Table) 06/09/18 06/09/18 06/09/18 Range/Units 08:42 11:53 18:21 RBC (4.30-5.90) m/uL Hgb (13.0-17.5) gm/dL Hct (39.0-53.0) % RDW (11.5-15.5) % Plt Count (150-450) k/uL ABG Total CO2 (19-24) mmol/L ABG O2 Saturation (94-97) % BUN (9-20) mg/dL Creatinine (0.66-1.25) mg/dL Glucose (74-99) mg/dL POC Glucose (mg/dL) 106 H 196 H (75-99) mg/dL Calcium (8.4-10.2) mg/dL Phosphorus (2.5-4.5) mg/dL Crossmatch See Detail 06/09/18 06/09/18 06/10/18 Range/Units Unknown 23:59 00:16 RBC 1.99 L 2.05 L (4.30-5.90) m/uL Hgb 6.6 L* 6.9 L* (13.0-17.5) gm/dL Hct 18.9 L* 19.4 L* (39.0-53.0) % RDW 16.6 H 16.6 H (11.5-15.5) % Plt Count 33 L 29 L (150-450) k/uL ABG Total CO2 (19-24) mmol/L ABG O2 Saturation (94-97) % BUN (9-20) mg/dL Creatinine (0.66-1.25) mg/dL Glucose (74-99) mg/dL POC Glucose (mg/dL) 235 H (75-99) mg/dL Calcium (8.4-10.2) mg/dL Phosphorus (2.5-4.5) mg/dL Crossmatch 06/10/18 06/10/18 06/10/18 Range/Units 04:25 05:48 08:11 RBC (4.30-5.90) m/uL Hgb (13.0-17.5) gm/dL Hct (39.0-53.0) % RDW (11.5-15.5) % Plt Count (150-450) k/uL ABG Total CO2 26 H (19-24) mmol/L ABG O2 Saturation 100.0 H (94-97) % BUN 59 H (9-20) mg/dL Creatinine 6.44 H (0.66-1.25) mg/dL Glucose 233 H (74-99) mg/dL POC Glucose (mg/dL) 287 H (75-99) mg/dL Calcium 7.7 L (8.4-10.2) mg/dL Phosphorus 6.6 H (2.5-4.5) mg/dL Crossmatch Microbiology - Last 24 Hours (Table) 06/04/18 01:10 Blood Culture - Final Blood No Growth after 144 hours 06/09/18 12:15 Urine Culture - Preliminary Urine,Catheterized 06/09/18 04:34 Gram Stain - Preliminary Sputum Sputum Culture - Preliminary 06/08/18 05:18 Urine Culture - Final Urine,Catheterized Assessment and Plan Plan: Assessment: 1. ESRD maintained on HD on MWF schedule via LUE AVF. 2. Cardiac arrest secondary to hyperkalemia. 3. Hypotension, currently off vasopressors. 4. Hyperkalemia secondary to CKD and concern for GIB. 5. Anemia of CKD - ?actute GIB - Hgb 6.7 on June 09 status post 1 unit blood transfusion. Maintained on Aranesp. 6. Sepsis mostly likely due to PNA maintained on antibiotics. 7. Chronic kidney disease mineral bone disease. Phosphorus level 6.6. Above goal. 8. Volume overload. Improved with ultrafiltration. 9. Systolic CHF with ejection fraction of 30-35%. Plan: Currently undergoing dialysis. Next hemodialysis treatment on Friday. F/u cultures. Monitor hemoglobin and transfuse if hemoglobin less than 7. Add PhosLo with meals.
[2018-06-10 10:44] LABS: Anisocytosis Slight; MCHC 34.6 g/dL (31.0-37.0); MCV 95.3 fL (80.0-100.0); Mean Platelet Volume 10.4; RBC 2.03 m/uL (4.30-5.90); RDW 16.6 % (11.5-15.5); WBC 2.4 k/uL (3.8-10.6)
[2018-06-10 10:45] LABS: HCT 19.3 % (39.0-53.0); HGB 6.7 gm/dL (13.0-17.5); Platelet Count 29 k/uL (150-450)
[2018-06-10 12:10] LABS: Glucose,Whole Blood 172 mg/dL (75-99)
--- NOTE | 2018-06-10 14:04 | P.PN ---
Subjective Progress Note Date: 06/10/18 This is a 57 Year-Old male one of patient with a previous medical history significant for CAD post PCI and stenting of the RCA x3 stents 2013. 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 Last admitted June 2017 for metabolic encephalopathy and acute hypoxic hypercarbic respiratory failure secondary to acute diastolic heart failure and hypercarbia for which patient was briefly intubated. Sepsis was ruled out during the last admission. Patient comes at this time with increased generalized weakness associated with change in mental status. Patient does complain of some cough and shortness of breath with sputum production. Most of the history is provided by the family at bedside as patient is not able to give any history. He did have 3 suspected skin cancer removed for biopsy by Dr. Myers but was feeling unwell for past 2 days. Patient missed dialysis yesterday due to the weakness. He usually gets it at Friday and Friday. In the ER patient was found to have a fever of 103 pulse rate of 125, respiratory rate 32, blood pressure 183/81. Labs obtained in the ER suggested leukocyte of 8.6 chronic thrombocytopenia with platelets 52, INR 1.1, potassium 6.7, creatinine 5.42, glucose 233 calcium 8, total bilirubin 1.4 initial troponin 0.651 which increased to 2.6. Lactate is 1.7 Patient was evaluated by cardiology in the ER was suggested that the increase in troponin been related to sepsis. Echocardiogram has been ordered. Chest x-ray done in the ER concerning for interstitial infiltrate concerning for pneumonia. Patient has already received 1 dose of vancomycin and Levaquin dose adjusted to kidney functions. Due to patient's end-stage renal disease patient would not be able to get any fluid boluses or at maintainance. Pro- calcitonin ordered. Mycoplasma and urinary legionella ordered. Patient is admitted for sepsis secondary to community-acquired pneumonia with possible volume overload and hypercarbia causing change in mental status. 06/05: Patient lying in bed with Dialysis at bedside. Patient did get up and walk around today but states he was Short of breath when returning to bed. Patient continues with SOB with exertion and fatigue. Patient has a history of anemia, thrombocytopenia and Hgb decreased to 7.6. Patient does complain of bilateral abdominal pain. 06/06: patient is sitting at the edge of he bed eating breakfast, feeling a bit better, no fever or chills, no abdominal pain, still short of breath with activity,we will continue to monitor hgb very closely. 06/07: Patient is laying down in bed he is complain of constipation we will start him on lactulose 30 mL twice every day, patient was instructed to use the CPAP while he is sleeping because of his deep sleep, he denies any chest pain he is less short of breath, we'll continue to monitor the patient very closely. 06/08: Last night around midnight, rapid response team was called to the patients bedside due to respiratory distress, hypoxia, and respiratory failure. The patient was intubated. He also underwent emergent hemodialysis. This morning , patient remains intubated and sedated, he remains on Levofed. Settings are rate of 24, tidal volume 450, Fi02 of 50% and PEEP of 5. This morning, labs reveal an elevated of white blood cell count 18.4, Hbg 9.5, Cr 3.64 and BUN 33, blood gas Po2 128, Pco2 41, PH 7.39. He remain on Zosyn, Levaquin and vancomycin. Blood cultures show no growth to date. Repeat chest xray showed some clearing of pulmonary vascular congestion. 06/09: Patient evaluated this morning. He continues to be intubated and on a ventilator, settings are assist control, rate of 24, tidal volume 450, Fi02 40% , and PEEP of 5. His ABG shows p02 117, pC02 42, PH 7.42. His hemoglobin dropped to 6.7, platelets dropped to 44. He is scheduled to receive 1 unit of PRBCs. He still requires small dose of vasopressors. Blood cultures still show no growth to date, he remain on zosyn, Levaquin and vancomycin. His did have a temperature of 101, repeat blood cultures have been drawn. He is receiving tube feedings per dietary recommendations. 06/10: Patient remains in the intensive care unit. He is receiving hemodialysis at this time. Patient was extubated this morning at 10 AM. Nystatin ordered for thrush. He is currently on Levaquin, Zosyn and pharmacy dose vancomycin. Patient has been off norepinephrine. He has been resumed on Cardizem. His blood pressure is on the higher side. He has been afebrile. Hemoglobin is 6.7, white count 2.4, platelet count 29, BUN 59, creatinine 6.244. Blood sugars are running between 106 and 287. Urine, sputum cultures in progress. Blood cultures no growth. Review Of Systems: Constitutional: No fever, no chills, no night sweats. + weakness, fatigue. EENT: No headache. No no loss of vision. No loss of Hearing, no ringing in the ears, no dizziness. No epistaxis. No sore throat. Lungs: mild shortness of breath, no cough, no sputum production. No wheezing. Cardiovascular: No chest pain. No lightheadedness or dizziness. No syncopal episodes. Abdominal: No abdominal pain. No nausea, vomiting. No diarrhea. No constipation. No bloody or tarry stools. Genitourinary: + barrientos Musculoskeletal: + muscle weakness. Integumentary: No wounds. No rash or pruritus. No unusual bruising. Objective - Vital Signs Vital signs: Vital Signs Temp 97.8 F 06/10/18 04:00 Pulse 92 06/10/18 10:00 Resp 15 06/10/18 10:00 BP 114/41 06/10/18 10:00 Pulse Ox 98 06/10/18 10:00 Intake & Output 06/09/18 06/10/18 06/10/18 18:59 06:59 18:59 Intake Total 887.553 3582.495 403.797 Output Total 557 525 150 Balance 422.595 750.495 253.797 Weight 98.6 kg 100 kg Intake: IV 240 240 80 Sodium Chloride 0.9% 1, 240 240 80 000 ml @ 20 mls/hr IV . Q24H [facility] Rx#:[id number] Intake, IV Titration 259.595 332.495 151.797 Amount Norepinephrine 16 mg In 99.550 1.844 Sodium Chloride 0.9% 250 ml @ Titrate IV .Q0M [facility] Rx#:[id number] Piperacillin-Tazobactam 3 150 37.5 .375 gm In Dextrose/Water 1 50ml.bag @ 12.5 mls/hr IVPB Q12HR [facility] Rx#: [id number] Propofol 1,000 mg In 160.045 180.651 114.297 Empty Bag 1 bag @ Titrate IV .Q0M [facility] Rx#: [id number] Oral 200 Tube Feeding 140 473 172 Blood Product 310 Rc As-1 Unit 310 [id number] Other 30 30 Output: Urine 557 525 150 Other: Voiding Method Indwelling Catheter Indwelling Catheter # Voids 1 # Bowel Movements 0 ABP, PAP, CO, CI - Last Documented Arterial Blood Pressure 182/54 - Exam Constitutional Comment(s): Awake, alert, sitting up in bed, appears comfortable General appearance: Present: no acute distress - EENT Eyes: Present: PERRLA, normal appearance - Respiratory Respiratory: bilateral: CTA, negative: rales, rhonchi, wheezing - Cardiovascular Heart sounds: normal: S1, S2 - Gastrointestinal General gastrointestinal: Present: normal bowel sounds, soft. Absent: distended , hepatomegaly, organomegaly, tenderness - Neurologic Neurologic: Absent: focal deficits - Musculoskeletal Musculoskeletal Comment(s): Generalized weakness - Labs CBC & Chem 7: 06/10/18 09:48 06/10/18 04:25 Labs: Abnormal Lab Results - Last 24 Hours (Table) 06/09/18 06/09/18 06/09/18 Range/Units 08:42 11:53 18:21 WBC (3.8-10.6) k/uL RBC (4.30-5.90) m/uL Hgb (13.0-17.5) gm/dL Hct (39.0-53.0) % RDW (11.5-15.5) % Plt Count (150-450) k/uL ABG Total CO2 (19-24) mmol/L ABG O2 Saturation (94-97) % BUN (9-20) mg/dL Creatinine (0.66-1.25) mg/dL Glucose (74-99) mg/dL POC Glucose (mg/dL) 106 H 196 H (75-99) mg/dL Calcium (8.4-10.2) mg/dL Phosphorus (2.5-4.5) mg/dL Crossmatch See Detail 06/09/18 06/09/18 06/10/18 Range/Units Unknown 23:59 00:16 WBC (3.8-10.6) k/uL RBC 1.99 L 2.05 L (4.30-5.90) m/uL Hgb 6.6 L* 6.9 L* (13.0-17.5) gm/dL Hct 18.9 L* 19.4 L* (39.0-53.0) % RDW 16.6 H 16.6 H (11.5-15.5) % Plt Count 33 L 29 L (150-450) k/uL ABG Total CO2 (19-24) mmol/L ABG O2 Saturation (94-97) % BUN (9-20) mg/dL Creatinine (0.66-1.25) mg/dL Glucose (74-99) mg/dL POC Glucose (mg/dL) 235 H (75-99) mg/dL Calcium (8.4-10.2) mg/dL Phosphorus (2.5-4.5) mg/dL Crossmatch 06/10/18 06/10/18 06/10/18 Range/Units 04:25 05:48 08:11 WBC (3.8-10.6) k/uL RBC (4.30-5.90) m/uL Hgb (13.0-17.5) gm/dL Hct (39.0-53.0) % RDW (11.5-15.5) % Plt Count (150-450) k/uL ABG Total CO2 26 H (19-24) mmol/L ABG O2 Saturation 100.0 H (94-97) % BUN 59 H (9-20) mg/dL Creatinine 6.44 H (0.66-1.25) mg/dL Glucose 233 H (74-99) mg/dL POC Glucose (mg/dL) 287 H (75-99) mg/dL Calcium 7.7 L (8.4-10.2) mg/dL Phosphorus 6.6 H (2.5-4.5) mg/dL Crossmatch 06/10/18 Range/Units 09:48 WBC 2.4 L (3.8-10.6) k/uL RBC 2.03 L (4.30-5.90) m/uL Hgb 6.7 L* (13.0-17.5) gm/dL Hct 19.3 L* (39.0-53.0) % RDW 16.6 H (11.5-15.5) % Plt Count 29 L (150-450) k/uL ABG Total CO2 (19-24) mmol/L ABG O2 Saturation (94-97) % BUN (9-20) mg/dL Creatinine (0.66-1.25) mg/dL Glucose (74-99) mg/dL POC Glucose (mg/dL) (75-99) mg/dL Calcium (8.4-10.2) mg/dL Phosphorus (2.5-4.5) mg/dL Crossmatch Microbiology - Last 24 Hours (Table) 06/04/18 01:10 Blood Culture - Final Blood No Growth after 144 hours 06/09/18 12:15 Urine Culture - Preliminary Urine,Catheterized 06/09/18 04:34 Gram Stain - Preliminary Sputum Sputum Culture - Preliminary 06/08/18 05:18 Urine Culture - Final Urine,Catheterized Assessment and Plan Plan: 1. Acute hypoxic respiratory failure likely secondary to pneumonia and fluid overload from chronic renal failure, acute on chronic systolic heart failure with known ejection fraction of 30%. He has been successfully extubated pulmonary consult is appreciated. Continue DuoNeb treatments every 4 hours, Solu-Cortef 100 mg IV every 8 hours, Mucinex, Levaquin, Zosyn and pharmacy dose vancomycin. 2. Sepsis with septic shock secondary to gram-negative pneumonia. Legionella and Mycoplasma testing negative. Patient has been seen by Dr. Nicholson. Continue antibiotics the form of Levaquin, Zosyn, vancomycin. 3. Acute non ST elevated MS. Patient is followed by Dr. Ha. Echocardiogram decreased to 30-35%. Continue Imdur 30 mg daily. 4. Cardiac arrest due to hyperkalemia secondary to noncompliance to dialysis. 5. Metabolic encephalopathy likely secondary to sepsis with possible hypercarbia. 6. Type 2 diabetes insulin requiring. Patient is currently on Levemir 27 units daily, NovoLog 9 units with meals and NovoLog to scale added. 7. Acute on chronic diastolic heart failure. Monitor input and output. Daily weights. Patient is currently off diuretics. Continue dialysis per nephrology. Continue diltiazem 180 mg by mouth daily. Lopressor has been on hold as well as lisinopril. 8. Diabetic neuropathy. Lyrica on hold. 9. End stage renal disease on hemodialysis Friday. Continue Star Lucas. Nephrology consult appreciated. Continue dialysis per nephrology. 10. MONTSE noncompliant to CPAP 11. CAD status post PCI to the RCA. Medications prior to admission: aspirin 81 mg Lipitor 80 mg by mouth daily continue metoprolol 150 mg twice a day, diltiazem 180 mg daily 12. 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 It is chronically low. Hold anticoagulation therapy 13. Generalized anxiety disorder and recurrent depression. Continue Abilify 5 mg daily. 14. Peripheral artery disease. 15. Degenerative disc disease of cervical spine status post-ACDF. 16. DVT prophylaxis with mechanical prophylaxis knee-high RYAN hose 17. GI prophylaxis continue with PPIs 18. Chronic Anemia of chronic renal disease 19. Acute abdominal pain. CT with no contrast showed splenomegaly with collateral blood vessels at the upper abdomen with small right sided pleural effusion. Discharge plan: To be determined. Impression and plan of care have been directed as dictated by the signing physician. Iram Love nurse practitioner acting as scribe for signing physician.
[2018-06-10 14:27] LABS: Glucose,Whole Blood 138 mg/dL (75-99)
[2018-06-10] MEDS: ISOSORBIDE MONONITRATE ER 30 MG TAB.ER.24H PO SCH (14:33)
[2018-06-10] MEDS: CALCIUM ACETATE 667 MG CAP PO SCH ×2 (17:18→17:59)
[2018-06-10] MEDS: NYSTATIN 100,000 UNIT/ML SUSP 500,000 UNIT/5 ML CUP PO SCH ×3 (17:20→22:55)
[2018-06-10 17:30] LABS: Glucose,Whole Blood 216 mg/dL (75-99)
[2018-06-10] MEDS: ACETAMINOPHEN TAB 325 MG TAB PO PRN (18:53)
[2018-06-10 21:13] LABS: Glucose,Whole Blood 266 mg/dL (75-99)
[2018-06-10] MEDS: ALPRAZolam 0.25 MG TAB PO PRN (21:26)
[2018-06-10] MEDS: METOPROLOL TARTRATE 50 MG TAB PO SCH (22:56)
[2018-06-11] MEDS: IPRATROPIUM-ALBUTEROL 3 ML NEB INHALATION SCH ×6 (00:19→20:49)
[2018-06-11] MEDS: ALPRAZolam 0.25 MG TAB PO PRN (04:50)
[2018-06-11 05:09] LABS: Basophils % (A) 0 %; Eosinophils % (A) 0 %; Lymphocytes # (A) 0.3 k/uL (1.0-4.8); Lymphocytes % (A) 8 %; MCH 31.7 pg (25.0-35.0); MCV 93.3 fL (80.0-100.0); Mean Platelet Volume 10.7; Monocytes # (A) 0.1 k/uL (0-1.0); Monocytes % (A) 3 %; Neutrophils # (A) 2.7 k/uL (1.3-7.7); Neutrophils % (A) 87 %; RBC 2.08 m/uL (4.30-5.90); RDW 15.6 % (11.5-15.5); WBC 3.1 k/uL (3.8-10.6)
[2018-06-11 05:16] LABS: HCT 19.4 % (39.0-53.0); HGB 6.6 gm/dL (13.0-17.5); Platelet Count 22 k/uL (150-450)
[2018-06-11 05:27] LABS: Calcium 7.6 mg/dL (8.4-10.2); Magnesium 2.1 mg/dL (1.6-2.3); Phosphorus 5.9 mg/dL (2.5-4.5); Potassium 3.9 mmol/L (3.5-5.1)
[2018-06-11 05:32] LABS: Vancomycin,Random 19.5 ug/mL
--- NOTE | 2018-06-11 07:24 | P.PN ---
Subjective Progress Note Date: 06/11/18 Principal diagnosis: SNTEMI This is a pleasant 57-year-old gentleman with history of end-stage renal disease on hemodialysis, hypertension, insulin requiring diabetes, CAD with prior stenting. 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 He presented to the hospital primary complaining of not feeling well overall mild confusion and fever. We were asked to the patient in consultation due to elevated troponin with initial troponin of 0.651 second troponin 2.6 and third troponin 3.5. Patient was initially febrile. Hemoglobin is improved at 9.0 and platelet count is 84 heparin; and anti-platelets have been avoided. Started the patient on oral nitrates. Echocardiogram with Doppler came back to show an ejection fraction of 30-35% with anterior septal, inferior and septal hypokinesis. Few days ago, rapid response team was called for this patient due to respiratory distress, acute hypoxemic and hypercapnic respiratory failure. Patient was bradycardic. CODE BLUE was called. Patient was emergently intubated. Upon examination, patient remains sedated on propofol. On follow-up with the patient today, he is doing better. He was extubated. He remained hemodynamically stable. He is hypertensive and I would increase the dose of lisinopril to 30 mg by mouth daily. The hemoglobin is below 7 and I will give the patient one unit of packed RBC. Beside that is still thrombocytopenic and I would hold any kind of antiplatelet at this point. Objective - Vital Signs Vital signs: Vital Signs Temp 98.2 F 06/11/18 04:00 Pulse 74 06/11/18 07:00 Resp 18 06/11/18 07:00 BP 175/73 06/11/18 07:00 Pulse Ox 96 06/11/18 07:00 Intake & Output 06/10/18 06/11/18 06/11/18 18:59 06:59 18:59 Intake Total 1064.597 550 23 Output Total 360 220 15 Balance 704.597 330 8 Intake: IV 240 273 23 Sodium Chloride 0.9% 1, 240 240 20 000 ml @ 20 mls/hr IV . Q24H [facility] Rx#:[id number] pressure bag 33 3 Intake, IV Titration 167.597 Amount Piperacillin-Tazobactam 3 50.0 .375 gm In Dextrose/Water 1 50ml.bag @ 12.5 mls/hr IVPB Q12HR [facility] Rx#: [id number] Propofol 1,000 mg In 117.597 Empty Bag 1 bag @ Titrate IV .Q0M [facility] Rx#: [id number] Oral 175 220 Tube Feeding 172 57 Blood Product 310 Rc As-3 Unit 310 [id number] Output: Urine 360 220 15 Other: Voiding Method Indwelling Catheter Indwelling Catheter # Bowel Movements 1 ABP, PAP, CO, CI - Last Documented Arterial Blood Pressure 188/51 - Constitutional General appearance: Present: no acute distress - Respiratory Respiratory: bilateral: diminished - Cardiovascular Rhythm: regular Heart sounds: normal: S1, S2 - Labs CBC & Chem 7: 06/11/18 04:30 06/11/18 04:30 Labs: Abnormal Lab Results - Last 24 Hours (Table) 06/09/18 06/10/18 06/10/18 Range/Units 08:42 08:11 09:48 WBC 2.4 L (3.8-10.6) k/uL RBC 2.03 L (4.30-5.90) m/uL Hgb 6.7 L* (13.0-17.5) gm/dL Hct 19.3 L* (39.0-53.0) % RDW 16.6 H (11.5-15.5) % Plt Count 29 L (150-450) k/uL Lymphocytes # (1.0-4.8) k/uL Sodium (137-145) mmol/L BUN (9-20) mg/dL Creatinine (0.66-1.25) mg/dL Glucose (74-99) mg/dL POC Glucose (mg/dL) 287 H (75-99) mg/dL Calcium (8.4-10.2) mg/dL Phosphorus (2.5-4.5) mg/dL Crossmatch See Detail 06/10/18 06/10/18 06/10/18 Range/Units 11:58 14:15 17:19 WBC (3.8-10.6) k/uL RBC (4.30-5.90) m/uL Hgb (13.0-17.5) gm/dL Hct (39.0-53.0) % RDW (11.5-15.5) % Plt Count (150-450) k/uL Lymphocytes # (1.0-4.8) k/uL Sodium (137-145) mmol/L BUN (9-20) mg/dL Creatinine (0.66-1.25) mg/dL Glucose (74-99) mg/dL POC Glucose (mg/dL) 172 H 138 H 216 H (75-99) mg/dL Calcium (8.4-10.2) mg/dL Phosphorus (2.5-4.5) mg/dL Crossmatch 06/10/18 06/11/18 06/11/18 Range/Units 21:01 04:30 04:30 WBC 3.1 L (3.8-10.6) k/uL RBC 2.08 L (4.30-5.90) m/uL Hgb 6.6 L* (13.0-17.5) gm/dL Hct 19.4 L* (39.0-53.0) % RDW 15.6 H (11.5-15.5) % Plt Count 22 L (150-450) k/uL Lymphocytes # 0.3 L (1.0-4.8) k/uL Sodium 135 L (137-145) mmol/L BUN 44 H (9-20) mg/dL Creatinine 4.08 H (0.66-1.25) mg/dL Glucose 179 H (74-99) mg/dL POC Glucose (mg/dL) 266 H (75-99) mg/dL Calcium 7.6 L (8.4-10.2) mg/dL Phosphorus 5.9 H (2.5-4.5) mg/dL Crossmatch Microbiology - Last 24 Hours (Table) 06/09/18 12:15 Urine Culture - Final Urine,Catheterized 06/09/18 12:15 Blood Culture - Preliminary Blood No Growth after 24 hours 06/09/18 04:34 Gram Stain - Preliminary Sputum Sputum Culture - Preliminary Ofelia albicans 06/04/18 01:10 Blood Culture - Final Blood No Growth after 144 hours Assessment and Plan Assessment: Assessment Acute non-ST elevation myocardial infarction Coronary artery disease and prior stenting End stage renal disease on hemodialysis Acute respiratory failure which has resolved Anemia Thrombocytopenia Uncontrolled hypertension Plan Increase the dose of lisinopril Give the patient one unit of packed RBC Monitor the hemoglobin and platelet Hold any kind of antiplatelet at this point Follow-up with the patient
--- NOTE | 2018-06-11 07:42 | XR ---
EXAMINATION TYPE: XR chest 1V DATE OF EXAM: 06/11/2018 COMPARISON: 06/10/2018 HISTORY: 57-year-old male ET tube placement TECHNIQUE: Single frontal view of the chest is obtained. FINDINGS: ACDF hardware. Left-sided CVC tip at the cavoatrial junction. Heart remains mildly enlarged. ET tube removed in the interval. Diffuse interstitial and patchy airspace opacities persist. IMPRESSION: 1. Interval extubation. 2. Cardiomegaly remains with diffuse interstitial and patchy airspace infiltrates.
[2018-06-11] MEDS: CALCIUM ACETATE 667 MG CAP PO SCH ×3 (07:51→18:12)
[2018-06-11 07:57] LABS: Glucose,Whole Blood 248 mg/dL (75-99)
[2018-06-11] MEDS: INSULIN ASPART 100 UNIT/ML 1 ML 10 ML VIAL SQ SCH ×7 (08:28→20:51)
[2018-06-11] MEDS: PANTOPRAZOLE 40 MG/10 ML VIAL IVP SCH (08:29)
[2018-06-11] MEDS: HYDROCORTISONE SUCCINATE 100 MG/2 ML VIAL IV SCH (08:29)
[2018-06-11] MEDS: PIPERACILLIN-TAZOBACTAM 3.375 GM in DEXTROSE/WATER 1 50ML.BAG IVPB SCH ×2 (08:29→20:27)
[2018-06-11] MEDS: CHOLECALCIFEROL 1,000 UNIT TAB PO SCH (08:30)
[2018-06-11] MEDS: ISOSORBIDE MONONITRATE ER 30 MG TAB.ER.24H PO SCH (08:30)
[2018-06-11] MEDS: HYDROcodone/APAP 10-325MG 1 EACH TAB PO PRN (08:30)
[2018-06-11] MEDS: METOPROLOL TARTRATE 50 MG TAB PO SCH ×2 (08:30→20:30)
[2018-06-11] MEDS: NYSTATIN 100,000 UNIT/ML SUSP 500,000 UNIT/5 ML CUP PO SCH ×4 (08:31→21:34)
[2018-06-11] MEDS: guaiFENesin 600 MG TABLET.ER PO SCH ×2 (08:31→20:27)
[2018-06-11] MEDS: DILTIAZEM CD 180 MG CAP.ER.24H PO SCH (08:31)
[2018-06-11] MEDS: ARIPiprazole 5 MG TAB PO SCH (08:31)
[2018-06-11] MEDS: INSULIN DETEMIR 100 UNIT/ML 10 ML VIAL SQ SCH (09:00)
[2018-06-11] MEDS ORDERED: LISINOPRIL 20 MG TAB PO SCH ×2 (09:00)
--- NOTE | 2018-06-11 09:24 | P.PN ---
Subjective Progress Note Date: 06/11/18 Principal diagnosis: Acute hypoxic and hypercapnic respiratory failure secondary to underlying pneumonia This is a 57-year-old white male with history of multiple medical problems including chronic renal failure, on hemodialysis. Patient is also known to history of coronary artery disease, previous PCI, stenting of RCA 3 stents total in 2013. History of hypertension, cardiovascular disease, type 2 diabetes , diabetic neuropathy, history of alcohol abuse with associated thrombocytopenia and splenomegaly, patient had previous history of metabolic encephalopathy treated in June of 2017, history of diastolic congestive heart failure, admitted this time with mostly symptoms of generalized weakness, confusion, and change in mental status. Patient has also been complaining of some shortness of breath, chest x-ray was suggestive of interstitial edema, his BNP level was elevated, troponin was also elevated, received Lasix in the ER, and there was a significant improvement in his overall pulmonary status patient apparently diuresed significantly although he doesn't usually make much urine since he is a renal failure patient. By the time I saw the patient on consultation, he had no active pulmonary symptoms whatsoever. Patient was relatively asymptomatic, no cough no wheezing no shortness of breath. However apparently when he was admitted there was a concern that the patient may have sepsis because his lactic acid was 1.7. And he was placed empirically on antibiotics for presumptive pneumonia, although the findings on the chest x-ray and the clinical findings are mostly findings of interstitial edema. Again I strongly doubt pneumonia. During my evaluation, the patient was basically asymptomatic. He had no chest pain no cough no wheezing no fever no chills no hemoptysis and no chest pain. Troponin was noted to be a bit higher compared to the morning troponin. His BNP level was over 17,600. Reevaluated today on 06/05/2018, patient is presently on dialysis, he had 1 dialysis done last night, he continues to feel much better. Denies any shortness of breath, no cough, no wheezing, no chest pain. However the patient spiked a temp last night, he had a temp of 101.1 and his temp now is 99.7. Patient is on room air, O2 saturations 97%, blood pressure is normal 132/79. Heart rate is 76. All labs were reviewed, he does not have leukocytosis, basic metabolic profile is normal BUN is 44 creatinine is 4.78. Reviewed the chest x- ray again, clearly consistent with interstitial edema. Remind me patient had a significantly elevated BNP level on admission. Reevaluated today on 06/06/2018, had his dialysis yesterday, and 2 L of fluids were removed. Patient continues to feel better clinically, no shortness of breath no cough no wheezing. No fever no chills, no chest pain, no hemoptysis. Chest x-ray today showed definite improvement compared to previous x-rays, and clinically the patient is showing definite improvement in his room air saturation is 97%. Hemodynamically remained stable all along since admission. Patient was reevaluated today on 06/07/2018, feels great, basically asymptomatic. Denies any shortness of breath, no cough, no wheezing, no fever, no chills, no hemoptysis, no nausea no vomiting no abdominal pain. His last hemodialysis was on Friday. I believe he would have another dialysis tomorrow. Pulmonary-cast the patient is doing great. Labs were reviewed WBC count is 4.5 hemoglobin is 7.9. His BUN is 54 creatinine is 5.98. Potassium is a bit elevated at 5.6. Patient was seen by cardiology today, and advised to continue current medical regimen, advised to continue beta blockers, patient did have acute non-ST elevation myocardial infarction on admission. On 06/08/2018 patient seen in the intensive care unit. Sometime at midnight on 06/08/2018 there was a rapid response team called for a concern of respiratory distress, and acute hypoxemic and hypercapnic respiratory failure. Was emergently intubated, and this morning patient is seen intubated, sedated, on mechanical ventilator. Current IV fluids are 0.9 normal saline at a rate of 25 ML per hour, levofed at 20 mics per minute, Diprivan and is at 25 mcg/kg/min. patient had emergent hemodialysis last night, would removal of 300 mL of fluid. And was not given any IV boluses in view of his acute on chronic renal failure. This morning blood work has been reviewed, there has been acute elevation of white blood count, to 18.4, hemoglobin is 9.5, electrolytes were within normal limits, there has been improvement in his renal profile, BUN was down to 33, creatinine is down to 3.64, patient is making small amounts of urine , in the range of 5-10 ML per hour. Antibiotic coverage includes Zosyn, Levaquin and vancomycin. Blood and urine cultures were collected, and showed no growth. he has some thick yellow sputum being suctioned from the ET tube. Today's chest x-ray has been reviewed by Dr. Otoole, and showed left lower lobe infiltrate. This morning's blood gas has been reviewed, and showed pO2 of 3:15 , pCO2 57, pH of 7.30, this was done on settings of assist control mode with a rate of 16, tidal volume of 360, FiO2 of 100%, and PEEP of 5. FiO2 was dropped down to 50%. We will make further adjustments to the vent settings we will increase the rate to 24, tidal volume decreased to 450, FiO2 50% and PEEP of 5. Patient's spouse is at the bedside, her rash was to continue with full code, and supportive treatment. On 06/09/2018 patient seen again in the intensive care unit. He remains intubated, sedated, on mechanical ventilator, current vent settings assist- control mode with a rate of 24, tidal volume 450, FiO2 50%, and PEEP of 5. This morning blood gases showed pO2 of 117, pCO2 42, pH of 7.42, FiO2 was dropped to 40% based on those blood gases. This morning's labs show WBC of 6.2 , hemoglobin is down to 6.7, from 9.0 yesterday, platelet count is down to 44, electrolyte panel is within normal limits, BUN 24, creatinine is 5.48. Random serum cortisol level was 14. Yesterday we gave the patient additional 2 L IV bolus of lactated Ringer's, and levo fed dose is down to 9 mics per minute this morning. Maintenance IV fluids 0.9 at 20 ML per hour. To prevent is 50 mics per kilo per minute. Blood cultures remain negative thus far, her antibiotic coverage includes Zosyn, Levaquin, and vancomycin. No signs of GI bleeding, occult blood stool was negative. Today's chest x-ray has been reviewed, and shows improvement in the appearance of bilateral airspace disease and pulmonary edema. Patient is producing urine, in the order 45-60 ML per hour. Patient does have intermittent low-grade fevers, with a T-max of 100.2F. Lung sounds are clear to auscultation. Dietary has been consulted for to proceeding recommendations. On 06/10/2018 patient seen in follow-up. He remains sedated, intubated on mechanical ventilation, current vent settings are assist-control mode with a rate of 24 breaths per minute, tidal volume of 450, FiO2 is 40% and PEEP of 5. Blood gases were done on those settings, and showed pO2 of 104, pCO2 40, and pH of 7.39. Today's chest x-ray has been reviewed by Dr. Otoole, and shows mild CHF. Yesterday patient was given a dose of IV Lasix, and transfused with 1 unit of packed red blood cells, today's CBC is pending, BMP shows sodium is 139 , potassium is 4.4, chloride is 104, CO2 is 24, BUN of 59, and creatinine of 6.44. Cultures remain negative thus far. Patient is afebrile, maintenance IV fluids include 0.9 normal saline at a rate of 20 ML per hour, levo fed and has been weaned off, propofol is currently at 50 mics per kilo per minute, patient has 2 feedings infusing Nepro at 43 ML per hour, with a goal of 43. Tolerating it well. Lung sounds are clear to auscultation. No acute issues overnight. Patient continues on antibiotic coverage includes Zosyn and Levaquin and vancomycin. She is producing urine, 30-35 ML per hour. We will give the patient is a sedation holiday today, assess readiness for spontaneous breathing trial. On 06/11/2018 patient seen in follow-up in the intensive care unit. He was extubated yesterday on 06/10/2018 and he is tolerating extubation quite well, currently not on any supplemental oxygen, room air pulse ox is 94%, he is afebrile, hemodynamically stable. He is awake and alert, oriented 3, his up in bed, denies any difficulty breathing, denies any chest pain. He did have another hemodialysis treatment yesterday with removal of 1.5 L of fluid. Patient was transfused with a unit of blood yesterday for hemoglobin of 6.7, and this am hemoglobin is 6.6, with no obvious signs of bleeding. Patient is being transfused with another unit of packed red blood cells. This is the patient's third unit of blood this admission. Today's lab work was reviewed, shows WBC of 3.1, hemoglobin as mentioned above, serum sodium is 135, no history of Dr. figueroa were within normal limits, renal profile is improving, B1 is 44, creatinine is 4.08. Today's chest x-ray has been reviewed and shows changes consistent with mild CHF, diffuse interstitial and patchy airspace infiltrates. Vital signs remain stable. Chest on negative with exception of Ofelia in the sputum. He notes IV fluid is 0.9 normal saline at a rate of 20 ML per hour, patient is tolerating oral diet. Antibiotic coverage includes Zosyn, vancomycin and Levaquin. Objective - Vital Signs Vital signs: Vital Signs Temp 98.1 F 06/11/18 08:44 Pulse 85 06/11/18 08:44 Resp 18 06/11/18 08:44 BP 166/70 06/11/18 08:44 Pulse Ox 94 L 06/11/18 08:44 Intake & Output 06/10/18 06/11/18 06/11/18 18:59 06:59 18:59 Intake Total 1064.597 550 23 Output Total 360 220 15 Balance 704.597 330 8 Intake: IV 240 273 23 Sodium Chloride 0.9% 1, 240 240 20 000 ml @ 20 mls/hr IV . Q24H NATHAN Rx#:[id number] pressure bag 33 3 Intake, IV Titration 167.597 Amount Piperacillin-Tazobactam 3 50.0 .375 gm In Dextrose/Water 1 50ml.bag @ 12.5 mls/hr IVPB Q12HR NATHAN Rx#: [id number] Propofol 1,000 mg In 117.597 Empty Bag 1 bag @ Titrate IV .Q0M NATHAN Rx#: [id number] Oral 175 220 Tube Feeding 172 57 Blood Product 310 0 Rc As-3 Unit 0 [id number] Rc As-3 Unit 310 [id number] Output: Urine 360 220 15 Other: Voiding Method Indwelling Catheter Indwelling Catheter # Bowel Movements 1 ABP, PAP, CO, CI - Last Documented Arterial Blood Pressure 188/51 - Exam GENERAL EXAM: Awake and alert, pleasant 57-year-old white male in no apparent distress. HEAD: Normocephalic/atraumatic. EYES: Normal reaction of pupils, equal size. Conjunctiva pink, sclera white. NOSE: Clear with pink turbinates. THROAT: No erythema or exudates. NECK: No masses, no JVD, no thyroid enlargement, no adenopathy. CHEST: No chest wall deformity. Symmetrical expansion. LUNGS: Equal air entry with no crackles, wheeze, rhonchi or dullness. CVS: Regular rate and rhythm, normal S1 and S2, no gallops, no murmurs, no rubs ABDOMEN: Soft, nontender. No hepatosplenomegaly, normal bowel sounds, no guarding or rigidity. EXTREMITIES: No clubbing, no edema, no cyanosis, 2+ pulses and upper and lower extremities. MUSCULOSKELETAL: Muscle strength and tone normal. SPINE: No scoliosis or deformity SKIN: No rashes CENTRAL NERVOUS SYSTEM: Intubated, and sedated. No focal deficits, tone is normal in all 4 extremities. PSYCHIATRIC: Unable to assess, patient is intubated. - Labs CBC & Chem 7: 06/11/18 04:30 06/11/18 04:30 Labs: Abnormal Lab Results - Last 24 Hours (Table) 06/09/18 06/10/18 06/10/18 Range/Units 08:42 09:48 11:58 WBC 2.4 L (3.8-10.6) k/uL RBC 2.03 L (4.30-5.90) m/uL Hgb 6.7 L* (13.0-17.5) gm/dL Hct 19.3 L* (39.0-53.0) % RDW 16.6 H (11.5-15.5) % Plt Count 29 L (150-450) k/uL Lymphocytes # (1.0-4.8) k/uL Sodium (137-145) mmol/L BUN (9-20) mg/dL Creatinine (0.66-1.25) mg/dL Glucose (74-99) mg/dL POC Glucose (mg/dL) 172 H (75-99) mg/dL Calcium (8.4-10.2) mg/dL Phosphorus (2.5-4.5) mg/dL Crossmatch See Detail 06/10/18 06/10/18 06/10/18 Range/Units 14:15 17:19 21:01 WBC (3.8-10.6) k/uL RBC (4.30-5.90) m/uL Hgb (13.0-17.5) gm/dL Hct (39.0-53.0) % RDW (11.5-15.5) % Plt Count (150-450) k/uL Lymphocytes # (1.0-4.8) k/uL Sodium (137-145) mmol/L BUN (9-20) mg/dL Creatinine (0.66-1.25) mg/dL Glucose (74-99) mg/dL POC Glucose (mg/dL) 138 H 216 H 266 H (75-99) mg/dL Calcium (8.4-10.2) mg/dL Phosphorus (2.5-4.5) mg/dL Crossmatch 06/11/18 06/11/18 06/11/18 Range/Units 04:30 04:30 07:45 WBC 3.1 L (3.8-10.6) k/uL RBC 2.08 L (4.30-5.90) m/uL Hgb 6.6 L* (13.0-17.5) gm/dL Hct 19.4 L* (39.0-53.0) % RDW 15.6 H (11.5-15.5) % Plt Count 22 L (150-450) k/uL Lymphocytes # 0.3 L (1.0-4.8) k/uL Sodium 135 L (137-145) mmol/L BUN 44 H (9-20) mg/dL Creatinine 4.08 H (0.66-1.25) mg/dL Glucose 179 H (74-99) mg/dL POC Glucose (mg/dL) 248 H (75-99) mg/dL Calcium 7.6 L (8.4-10.2) mg/dL Phosphorus 5.9 H (2.5-4.5) mg/dL Crossmatch Microbiology - Last 24 Hours (Table) 06/09/18 12:15 Urine Culture - Final Urine,Catheterized 06/09/18 12:15 Blood Culture - Preliminary Blood No Growth after 24 hours 06/09/18 04:34 Gram Stain - Preliminary Sputum Sputum Culture - Preliminary Ofelia albicans Assessment and Plan Plan: Assessment: 1 acute pulmonary edema, most likely secondary to fluid overload secondary to chronic renal failure, and secondary to systolic dysfunction, his ejection fraction on the echocardiogram showed 30%. Significant anteroseptal hypokinesis noted. Patient has required intubation and mechanical ventilation, and was successfully extubated on 06/10/2018, and tolerating extubation well. 2 possibility of pneumonia is not entirely ruled out, especially with elevated pro calcitonin level hence would recommend we continue antibiotics. 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 8 end-stage renal disease, on hemodialysis. 9 type 2 diabetes 10 hyperkalemia secondary to renal failure, patient apparently has been noncompliant with dialysis. Nephrology is following. 11 acute non-ST elevation myocardial infarction 12 Secondary adrenal insufficiency Plan: Continue current medical treatment, encourage deep breathing and coughing, incentive spirometry use. Today's chest x-ray has been reviewed, shows mild CHF. We will switch the hydrocortisone to oral Cortef 20 mg in the morning, 10 mg at night. Increase activity as tolerated. We'll continue to follow patient will remain in the ICU for 1 more day for close monitoring. I performed a history & physical examination of the patient and discussed their management with my nurse practitioner, Yumiko Matta. I reviewed the nurse practitioner's note and agree with the documented findings and plan of care. Lung sounds are positive for clear sounds. The findings and the impression was discussed with the patient. I attest to the documentation by the nurse practitioner. Time with Patient: Greater than 30
[2018-06-11] MEDS ORDERED: INSULIN DETEMIR 100 UNIT/ML 10 ML VIAL SQ SCH (10:00)
[2018-06-11] MEDS: CHLORHEXIDINE GLUCONATE 15 ML CUP MUCOUS MEM SCH (10:00)
[2018-06-11] MEDS: LACTULOSE 20 GM/30 ML CUP PO SCH (10:00)
[2018-06-11] MEDS ORDERED: VANCOMYCIN 1,500 MG in SODIUM CHLORIDE 0.9% 250 ML IVPB ONE (10:00)
--- NOTE | 2018-06-11 10:04 | P.PN ---
Subjective Patient is seen in follow-up for end-stage renal disease. He is maintained on hemodialysis on a Friday schedule via left upper extremity AV fistula. Patient had a cardiac arrest from hyperkalemia. Patient was emergently hemodialyzed and potassium level normalized. He is currently off Levophed. Patient did receive a blood transfusion yesterday and is receiving another transfusion today for hemoglobin of 6.6. No active bleeding. Cultures remain negative so far. Patient is awake and alert. Denies any active chest pain or shortness of breath. Oral intake is good. Vital signs stable. General: The patient appeared well nourished and normally developed. HEENT: Head exam is unremarkable. Neck is without jugular venous distension. LUNGS: Breath sounds decreased. HEART: Rate and Rhythm are regular. First and second heart sounds normal. No murmurs, rubs or gallops. ABDOMEN: Abdominal exam reveals normal bowel sounds. Non-tender and non- distended. No evidence of peritonitis. EXTREMITITES: No clubbing, cyanosis, or edema. Objective - Vital Signs Vital signs: Vital Signs Temp 98.1 F 06/11/18 08:44 Pulse 86 06/11/18 09:00 Resp 22 06/11/18 09:00 BP 184/72 06/11/18 09:00 Pulse Ox 94 L 06/11/18 08:44 Intake & Output 06/10/18 06/11/18 06/11/18 18:59 06:59 18:59 Intake Total 1064.597 550 244.0 Output Total 360 220 75 Balance 704.597 330 169.0 Intake: IV 240 273 69 Sodium Chloride 0.9% 1, 240 240 60 000 ml @ 20 mls/hr IV . Q24H NATHAN Rx#:[id number] pressure bag 33 9 Intake, IV Titration 167.597 25.0 Amount Piperacillin-Tazobactam 3 50.0 25.0 .375 gm In Dextrose/Water 1 50ml.bag @ 12.5 mls/hr IVPB Q12HR NATHAN Rx#: [id number] Propofol 1,000 mg In 117.597 Empty Bag 1 bag @ Titrate IV .Q0M NATHAN Rx#: [id number] Oral 175 220 150 Tube Feeding 172 57 Blood Product 310 0 Rc As-3 Unit 0 [id number] Rc As-3 Unit 310 [id number] Output: Urine 360 220 75 Other: Voiding Method Indwelling Catheter Indwelling Catheter # Bowel Movements 1 ABP, PAP, CO, CI - Last Documented Arterial Blood Pressure 188/51 - Labs CBC & Chem 7: 06/11/18 04:30 06/11/18 04:30 Labs: Abnormal Lab Results - Last 24 Hours (Table) 06/09/18 06/10/18 06/10/18 Range/Units 08:42 09:48 11:58 WBC 2.4 L (3.8-10.6) k/uL RBC 2.03 L (4.30-5.90) m/uL Hgb 6.7 L* (13.0-17.5) gm/dL Hct 19.3 L* (39.0-53.0) % RDW 16.6 H (11.5-15.5) % Plt Count 29 L (150-450) k/uL Lymphocytes # (1.0-4.8) k/uL Sodium (137-145) mmol/L BUN (9-20) mg/dL Creatinine (0.66-1.25) mg/dL Glucose (74-99) mg/dL POC Glucose (mg/dL) 172 H (75-99) mg/dL Calcium (8.4-10.2) mg/dL Phosphorus (2.5-4.5) mg/dL Crossmatch See Detail 06/10/18 06/10/18 06/10/18 Range/Units 14:15 17:19 21:01 WBC (3.8-10.6) k/uL RBC (4.30-5.90) m/uL Hgb (13.0-17.5) gm/dL Hct (39.0-53.0) % RDW (11.5-15.5) % Plt Count (150-450) k/uL Lymphocytes # (1.0-4.8) k/uL Sodium (137-145) mmol/L BUN (9-20) mg/dL Creatinine (0.66-1.25) mg/dL Glucose (74-99) mg/dL POC Glucose (mg/dL) 138 H 216 H 266 H (75-99) mg/dL Calcium (8.4-10.2) mg/dL Phosphorus (2.5-4.5) mg/dL Crossmatch 06/11/18 06/11/18 06/11/18 Range/Units 04:30 04:30 07:45 WBC 3.1 L (3.8-10.6) k/uL RBC 2.08 L (4.30-5.90) m/uL Hgb 6.6 L* (13.0-17.5) gm/dL Hct 19.4 L* (39.0-53.0) % RDW 15.6 H (11.5-15.5) % Plt Count 22 L (150-450) k/uL Lymphocytes # 0.3 L (1.0-4.8) k/uL Sodium 135 L (137-145) mmol/L BUN 44 H (9-20) mg/dL Creatinine 4.08 H (0.66-1.25) mg/dL Glucose 179 H (74-99) mg/dL POC Glucose (mg/dL) 248 H (75-99) mg/dL Calcium 7.6 L (8.4-10.2) mg/dL Phosphorus 5.9 H (2.5-4.5) mg/dL Crossmatch Microbiology - Last 24 Hours (Table) 06/09/18 12:15 Urine Culture - Final Urine,Catheterized 06/09/18 12:15 Blood Culture - Preliminary Blood No Growth after 24 hours 06/09/18 04:34 Gram Stain - Preliminary Sputum Sputum Culture - Preliminary Ofelia albicans Assessment and Plan Plan: Assessment: 1. ESRD maintained on HD on MWF schedule via LUE AVF. 2. Cardiac arrest secondary to hyperkalemia. 3. Hypotension, currently off vasopressors. Blood pressure controlled. 4. Hyperkalemia secondary to CKD and concern for GIB. 5. Anemia of CKD - ?actute GIB - hemoglobin 6.6 this morning. She receiving another unit of blood transfusion. 6. Sepsis mostly likely due to PNA maintained on antibiotics. 7. Chronic kidney disease mineral bone disease. Phosphorus level 6.6. Above goal. Maintained on PhosLo. 8. Volume overload. Improved with ultrafiltration. 9. Systolic CHF with ejection fraction of 30-35%. Plan: Hemodialysis tomorrow. Monitor hemoglobin and transfuse if hemoglobin less than 7.
[2018-06-11 10:56] VITALS: BMI 29.9
[2018-06-11 11:50] LABS: Glucose,Whole Blood 245 mg/dL (75-99)
--- NOTE | 2018-06-11 13:51 | P.PN ---
Subjective Progress Note Date: 06/11/18 This is a 57 Year-Old male one of patient with a previous medical history significant for CAD post PCI and stenting of the RCA x3 stents 2013. 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 Last admitted June 2017 for metabolic encephalopathy and acute hypoxic hypercarbic respiratory failure secondary to acute diastolic heart failure and hypercarbia for which patient was briefly intubated. Sepsis was ruled out during the last admission. Patient comes at this time with increased generalized weakness associated with change in mental status. Patient does complain of some cough and shortness of breath with sputum production. Most of the history is provided by the family at bedside as patient is not able to give any history. He did have 3 suspected skin cancer removed for biopsy by Dr. Myers but was feeling unwell for past 2 days. Patient missed dialysis yesterday due to the weakness. He usually gets it at Friday and Friday. In the ER patient was found to have a fever of 103 pulse rate of 125, respiratory rate 32, blood pressure 183/81. Labs obtained in the ER suggested leukocyte of 8.6 chronic thrombocytopenia with platelets 52, INR 1.1, potassium 6.7, creatinine 5.42, glucose 233 calcium 8, total bilirubin 1.4 initial troponin 0.651 which increased to 2.6. Lactate is 1.7 Patient was evaluated by cardiology in the ER was suggested that the increase in troponin been related to sepsis. Echocardiogram has been ordered. Chest x-ray done in the ER concerning for interstitial infiltrate concerning for pneumonia. Patient has already received 1 dose of vancomycin and Levaquin dose adjusted to kidney functions. Due to patient's end-stage renal disease patient would not be able to get any fluid boluses or at maintainance. Pro- calcitonin ordered. Mycoplasma and urinary legionella ordered. Patient is admitted for sepsis secondary to community-acquired pneumonia with possible volume overload and hypercarbia causing change in mental status. 06/05: Patient lying in bed with Dialysis at bedside. Patient did get up and walk around today but states he was Short of breath when returning to bed. Patient continues with SOB with exertion and fatigue. Patient has a history of anemia, thrombocytopenia and Hgb decreased to 7.6. Patient does complain of bilateral abdominal pain. 06/06: patient is sitting at the edge of he bed eating breakfast, feeling a bit better, no fever or chills, no abdominal pain, still short of breath with activity,we will continue to monitor hgb very closely. 06/07: Patient is laying down in bed he is complain of constipation we will start him on lactulose 30 mL twice every day, patient was instructed to use the CPAP while he is sleeping because of his deep sleep, he denies any chest pain he is less short of breath, we'll continue to monitor the patient very closely. 06/08: Last night around midnight, rapid response team was called to the patients bedside due to respiratory distress, hypoxia, and respiratory failure. The patient was intubated. He also underwent emergent hemodialysis. This morning , patient remains intubated and sedated, he remains on Levofed. Settings are rate of 24, tidal volume 450, Fi02 of 50% and PEEP of 5. This morning, labs reveal an elevated of white blood cell count 18.4, Hbg 9.5, Cr 3.64 and BUN 33, blood gas Po2 128, Pco2 41, PH 7.39. He remain on Zosyn, Levaquin and vancomycin. Blood cultures show no growth to date. Repeat chest xray showed some clearing of pulmonary vascular congestion. 06/09: Patient evaluated this morning. He continues to be intubated and on a ventilator, settings are assist control, rate of 24, tidal volume 450, Fi02 40% , and PEEP of 5. His ABG shows p02 117, pC02 42, PH 7.42. His hemoglobin dropped to 6.7, platelets dropped to 44. He is scheduled to receive 1 unit of PRBCs. He still requires small dose of vasopressors. Blood cultures still show no growth to date, he remain on zosyn, Levaquin and vancomycin. His did have a temperature of 101, repeat blood cultures have been drawn. He is receiving tube feedings per dietary recommendations. 06/10: Patient remains in the intensive care unit. He is receiving hemodialysis at this time. Patient was extubated this morning at 10 AM. Nystatin ordered for thrush. He is currently on Levaquin, Zosyn and pharmacy dose vancomycin. Patient has been off norepinephrine. He has been resumed on Cardizem. His blood pressure is on the higher side. He has been afebrile. Hemoglobin is 6.7, white count 2.4, platelet count 29, BUN 59, creatinine 6.244. Blood sugars are running between 106 and 287. Urine, sputum cultures in progress. Blood cultures no growth. 06/11: Patient remains in intensive care unit. Blood pressure medications were resumed yesterday. He has complained of a headache to the frontal area. No vision changes. His sore throat is better today. He is complaining of difficulty sleeping for which melatonin is been added. He did have 5 bowel movements yesterday afternoon and C. diff was negative. Lactulose held and discontinued. He is currently undergoing transfusion 1 unit packed RBC for hemoglobin of 6.6. This will be his third unit since admission. WBC count is 3.1 and platelet count 22. Consult with oncology for pancytopenia. Blood sugars been running in the 200s. Levemir increased to 30 units. He has been afebrile, blood pressure on the higher side. Pulse ox is 93% on room air. He is scheduled for hemodialysis for tomorrow. Review Of Systems: Constitutional: No fever, no chills, no night sweats. + weakness, fatigue. EENT: + headache. No no loss of vision. No loss of Hearing, no ringing in the ears, no dizziness. No epistaxis. No sore throat. Lungs: no shortness of breath, + cough, no sputum production. No wheezing. Cardiovascular: No chest pain. No lightheadedness or dizziness. No syncopal episodes. Abdominal: No abdominal pain. No nausea, vomiting. + diarrhea. No constipation. No bloody or tarry stools. Genitourinary: + barrientos Musculoskeletal: + muscle weakness. Integumentary: No wounds. No rash or pruritus. No unusual bruising. Objective - Vital Signs Vital signs: Vital Signs Temp 98.1 F 06/11/18 08:44 Pulse 72 06/11/18 10:00 Resp 14 06/11/18 10:00 BP 169/67 06/11/18 10:00 Pulse Ox 92 L 06/11/18 10:00 Intake & Output 06/10/18 06/11/18 06/11/18 18:59 06:59 18:59 Intake Total 1064.597 550 740.0 Output Total 360 220 135 Balance 704.597 330 605.0 Weight 100 kg Intake: IV 240 273 115 Sodium Chloride 0.9% 1, 240 240 100 000 ml @ 20 mls/hr IV . Q24H [facility] Rx#:[id number] pressure bag 33 15 Intake, IV Titration 167.597 175.0 Amount Piperacillin-Tazobactam 3 50.0 50.0 .375 gm In Dextrose/Water 1 50ml.bag @ 12.5 mls/hr IVPB Q12HR [facility] Rx#: [id number] Propofol 1,000 mg In 117.597 Empty Bag 1 bag @ Titrate IV .Q0M [facility] Rx#: [id number] Vancomycin 1,500 mg In 125 Sodium Chloride 0.9% 250 ml @ 125 mls/hr IVPB ONCE ONE Rx#:[id number] Oral 175 220 450 Tube Feeding 172 57 Blood Product 310 0 Rc As-3 Unit 0 [id number] Rc As-3 Unit 310 [id number] Output: Urine 360 220 135 Other: Voiding Method Indwelling Catheter Indwelling Catheter Indwelling Catheter # Bowel Movements 1 ABP, PAP, CO, CI - Last Documented Arterial Blood Pressure 188/51 - Exam Constitutional Comment(s): Awake, alert, sitting up in bed, appears comfortable General appearance: Present: no acute distress - EENT Eyes: Present: PERRLA, normal appearance - Respiratory Respiratory: bilateral: CTA, negative: rales, rhonchi, wheezing - Cardiovascular Heart sounds: normal: S1, S2 - Gastrointestinal General gastrointestinal: Present: normal bowel sounds, soft. Absent: distended , hepatomegaly, organomegaly, tenderness - Neurologic Neurologic: Absent: focal deficits - Musculoskeletal Musculoskeletal Comment(s): Generalized weakness. - Labs CBC & Chem 7: 06/11/18 04:30 06/11/18 04:30 Labs: Abnormal Lab Results - Last 24 Hours (Table) 06/09/18 06/10/18 06/10/18 Range/Units 08:42 11:58 14:15 WBC (3.8-10.6) k/uL RBC (4.30-5.90) m/uL Hgb (13.0-17.5) gm/dL Hct (39.0-53.0) % RDW (11.5-15.5) % Plt Count (150-450) k/uL Lymphocytes # (1.0-4.8) k/uL Sodium (137-145) mmol/L BUN (9-20) mg/dL Creatinine (0.66-1.25) mg/dL Glucose (74-99) mg/dL POC Glucose (mg/dL) 172 H 138 H (75-99) mg/dL Calcium (8.4-10.2) mg/dL Phosphorus (2.5-4.5) mg/dL Crossmatch See Detail 06/10/18 06/10/18 06/11/18 Range/Units 17:19 21:01 04:30 WBC (3.8-10.6) k/uL RBC (4.30-5.90) m/uL Hgb (13.0-17.5) gm/dL Hct (39.0-53.0) % RDW (11.5-15.5) % Plt Count (150-450) k/uL Lymphocytes # (1.0-4.8) k/uL Sodium 135 L (137-145) mmol/L BUN 44 H (9-20) mg/dL Creatinine 4.08 H (0.66-1.25) mg/dL Glucose 179 H (74-99) mg/dL POC Glucose (mg/dL) 216 H 266 H (75-99) mg/dL Calcium 7.6 L (8.4-10.2) mg/dL Phosphorus 5.9 H (2.5-4.5) mg/dL Crossmatch 06/11/18 06/11/18 Range/Units 04:30 07:45 WBC 3.1 L (3.8-10.6) k/uL RBC 2.08 L (4.30-5.90) m/uL Hgb 6.6 L* (13.0-17.5) gm/dL Hct 19.4 L* (39.0-53.0) % RDW 15.6 H (11.5-15.5) % Plt Count 22 L (150-450) k/uL Lymphocytes # 0.3 L (1.0-4.8) k/uL Sodium (137-145) mmol/L BUN (9-20) mg/dL Creatinine (0.66-1.25) mg/dL Glucose (74-99) mg/dL POC Glucose (mg/dL) 248 H (75-99) mg/dL Calcium (8.4-10.2) mg/dL Phosphorus (2.5-4.5) mg/dL Crossmatch Microbiology - Last 24 Hours (Table) 06/09/18 04:34 Gram Stain - Final Sputum Sputum Culture - Final Ofelia albicans 06/09/18 12:15 Urine Culture - Final Urine,Catheterized 06/09/18 12:15 Blood Culture - Preliminary Blood No Growth after 24 hours Assessment and Plan Plan: 1. Acute hypoxic respiratory failure likely secondary to pneumonia and fluid overload from chronic renal failure, acute on chronic systolic heart failure with known ejection fraction of 30%. He has been successfully extubated pulmonary consult is appreciated. Continue DuoNeb treatments every 4 hours, Solu-Cortef 100 mg IV every 8 hours, Mucinex, Levaquin, Zosyn and pharmacy dose vancomycin. 2. Sepsis with septic shock secondary to gram-negative pneumonia. Legionella and Mycoplasma testing negative. Patient has been seen by Dr. Nicholson. Continue antibiotics the form of Levaquin, Zosyn, vancomycin. 3. Acute non ST elevated [place]. Patient is followed by Dr. Ha. Echocardiogram decreased to 30-35%. Continue Imdur 30 mg daily. 4. Cardiac arrest due to hyperkalemia secondary to noncompliance to dialysis. 5. Metabolic encephalopathy likely secondary to sepsis with possible hypercarbia. 6. Type 2 diabetes insulin requiring. Patient is currently on Levemir 27 units daily, NovoLog 9 units with meals and NovoLog to scale added. 7. Acute on chronic diastolic heart failure. Monitor input and output. Daily weights. Patient is currently off diuretics. Continue dialysis per nephrology. Continue diltiazem 180 mg by mouth daily. Lopressor has been on hold as well as lisinopril. 8. Diabetic neuropathy. Lyrica on hold. 9. End stage renal disease on hemodialysis Friday. Continue [place]. Nephrology consult appreciated. Continue dialysis per nephrology. 10. MONTSE noncompliant to CPAP 11. CAD status post PCI to the RCA. Medications prior to admission: aspirin 81 mg Lipitor 80 mg by mouth daily continue metoprolol 150 mg twice a day, diltiazem 180 mg daily 12. 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 It is chronically low. Hold anticoagulation therapy 13. Generalized anxiety disorder and recurrent depression. Continue Abilify 5 mg daily. 14. Peripheral artery disease. 15. Degenerative disc disease of cervical spine status post-ACDF. 16. DVT prophylaxis with mechanical prophylaxis knee-high RYAN hose 17. GI prophylaxis continue with PPIs 18. Chronic Anemia of chronic renal disease 19. Acute abdominal pain. CT with no contrast showed splenomegaly with collateral blood vessels at the upper abdomen with small right sided pleural effusion. 20. Pancytopenia. Consult with hematology. Discharge plan: To be determined. Impression and plan of care have been directed as dictated by the signing physician. Iram Love nurse practitioner acting as scribe for signing physician.
[2018-06-11 17:48] LABS: Glucose,Whole Blood 106 mg/dL (75-99)
[2018-06-11] MEDS: MELATONIN 3 MG TABLET PO SCH (20:30)
[2018-06-11] MEDS ORDERED: IPRATROPIUM-ALBUTEROL 3 ML NEB INHALATION PRN (20:51)
[2018-06-11 20:57] LABS: Glucose,Whole Blood 171 mg/dL (75-99)
[2018-06-11] MEDS: HYDROCORTISONE 10 MG TAB PO SCH (21:34)
[2018-06-11 23:31] LABS: Calcium 7.5 mg/dL (8.4-10.2); Magnesium 2.3 mg/dL (1.6-2.3); Potassium 3.3 mmol/L (3.5-5.1)
[2018-06-12] MEDS ORDERED: POTASSIUM CHLORIDE ER 20 MEQ TAB.ER PO STA (00:27)
[2018-06-12] MEDS: HYDROcodone/APAP 10-325MG 1 EACH TAB PO PRN ×4 (00:51→21:01)
[2018-06-12] MEDS: SODIUM CHLORIDE 0.9% 1,000 ML IV SCH (03:30)
[2018-06-12 04:45] LABS: Basophils % (A) 0 %; Eosinophils # (A) 0.1 k/uL (0-0.7); Eosinophils % (A) 2 %; HCT 23.2 % (39.0-53.0); Lymphocytes # (A) 0.6 k/uL (1.0-4.8); Lymphocytes % (A) 17 %; MCH 32.1 pg (25.0-35.0); MCV 91.9 fL (80.0-100.0); Mean Platelet Volume 9.9; Monocytes # (A) 0.2 k/uL (0-1.0); Monocytes % (A) 6 %; Neutrophils # (A) 2.5 k/uL (1.3-7.7); Neutrophils % (A) 74 %; RBC 2.52 m/uL (4.30-5.90); RDW 15.5 % (11.5-15.5); WBC 3.4 k/uL (3.8-10.6)
[2018-06-12 04:55] LABS: Calcium 7.3 mg/dL (8.4-10.2); Magnesium 2.3 mg/dL (1.6-2.3); Phosphorus 5.8 mg/dL (2.5-4.5); Potassium 3.7 mmol/L (3.5-5.1)
[2018-06-12] MEDS ORDERED: LEVOFLOXACIN 500 MG TAB PO SCH (05:00)
[2018-06-12 05:03] LABS: HGB 8.1 gm/dL (13.0-17.5); Platelet Count 27 k/uL (150-450)
[2018-06-12 07:37] LABS: Glucose,Whole Blood 120 mg/dL (75-99)
--- NOTE | 2018-06-12 07:45 | XR ---
EXAMINATION TYPE: XR chest 1V portable DATE OF EXAM: 06/12/2018 COMPARISON: 06/11/2018 HISTORY: Difficulty breathing TECHNIQUE: Single frontal view of the chest is obtained. FINDINGS: There is worsening of the right basilar opacity and retrocardiac opacity with persistent m ild left hemidiaphragm elevation. Pulmonary vascular congestion is mild. Cardiomediastinal silhouette is enlarged. Moderate degenerative changes of thoracic spine are seen. There is partial visualizatio n of a cervical fusion device. Left-sided internal jugular central venous catheter terminates in the cavoatrial junction. IMPRESSION: Worsening bibasilar airspace disease, right greater than left with progressive pulmonary vascular congestion and interstitial edema. Findings likely relate to decompensated congestive heart failure and confluent pulmonary edema with atelectasis.
--- NOTE | 2018-06-12 07:55 | P.PN ---
Subjective Progress Note Date: 06/12/18 Principal diagnosis: SNTEMI This is a pleasant 57-year-old gentleman with history of end-stage renal disease on hemodialysis, hypertension, insulin requiring diabetes, CAD with prior stenting. He follows with a cashier assistant out of [facility]. He presented to the hospital primary complaining of not feeling well overall mild confusion and fever. We were asked to the patient in consultation due to elevated troponin with initial troponin of 0.651 second troponin 2.6 and third troponin 3.5. Patient was initially febrile. Hemoglobin is improved at 9.0 and platelet count is 84 heparin; and anti-platelets have been avoided. Started the patient on oral nitrates. Echocardiogram with Doppler came back to show an ejection fraction of 30-35% with anterior septal, inferior and septal hypokinesis. Few days ago, rapid response team was called for this patient due to respiratory distress, acute hypoxemic and hypercapnic respiratory failure. Patient was bradycardic. CODE BLUE was called. Patient was emergently intubated. Upon examination, patient remains sedated on propofol. On follow-up with the patient today, June 122017, he is doing better. He was extubated. He remained hemodynamically stable. He is hypertensive and I would increase the dose of lisinopril to 40 mg by mouth daily. Hemoglobin this morning is 8.1 after he received 20 units of packed RBC yesterday. I would continue holding any kind of antiplatelet at this point in view of the thrombocytopenia. Objective - Vital Signs Vital signs: Vital Signs Temp 98.2 F 06/12/18 04:00 Pulse 64 06/12/18 07:00 Resp 21 06/12/18 07:00 BP 174/75 06/12/18 07:00 Pulse Ox 96 06/12/18 07:00 Intake & Output 06/11/18 06/12/18 06/12/18 18:59 06:59 18:59 Intake Total 1676.0 443 Output Total 345 520 50 Balance 1331.0 -77 -50 Weight 100 kg 99.9 kg Intake: IV 216 83 Piperacillin-Tazobactam 3 50 .375 gm In Dextrose/Water 1 50ml.bag @ 12.5 mls/hr IVPB Q12HR [facility] Rx#: [id number] Sodium Chloride 0.9% 1, 180 000 ml @ 20 mls/hr IV . Q24H [facility] Rx#:[id number] pressure bag 36 33 Intake, IV Titration 300.0 Amount Piperacillin-Tazobactam 3 50.0 .375 gm In Dextrose/Water 1 50ml.bag @ 12.5 mls/hr IVPB Q12HR [facility] Rx#: [id number] Vancomycin 1,500 mg In 250 Sodium Chloride 0.9% 250 ml @ 125 mls/hr IVPB ONCE ONE Rx#:[id number] Oral 850 360 Blood Product 310 Rc As-3 Unit 310 [id number] Output: Urine 345 520 50 Other: Voiding Method Indwelling Catheter Indwelling Catheter ABP, PAP, CO, CI - Last Documented Arterial Blood Pressure 188/51 - Constitutional General appearance: Present: no acute distress - Respiratory Respiratory: bilateral: rales - Cardiovascular Heart sounds: normal: S1, S2 - Labs CBC & Chem 7: 06/12/18 04:25 06/12/18 04:25 Labs: Abnormal Lab Results - Last 24 Hours (Table) 06/09/18 06/11/18 06/11/18 Range/Units 08:42 07:45 11:39 WBC (3.8-10.6) k/uL RBC (4.30-5.90) m/uL Hgb (13.0-17.5) gm/dL Hct (39.0-53.0) % Plt Count (150-450) k/uL Lymphocytes # (1.0-4.8) k/uL Sodium (137-145) mmol/L Potassium (3.5-5.1) mmol/L Carbon Dioxide (22-30) mmol/L BUN (9-20) mg/dL Creatinine (0.66-1.25) mg/dL Glucose (74-99) mg/dL POC Glucose (mg/dL) 248 H 245 H (75-99) mg/dL Calcium (8.4-10.2) mg/dL Phosphorus (2.5-4.5) mg/dL Crossmatch See Detail 06/11/18 06/11/18 06/11/18 Range/Units 17:36 20:45 23:00 WBC (3.8-10.6) k/uL RBC (4.30-5.90) m/uL Hgb (13.0-17.5) gm/dL Hct (39.0-53.0) % Plt Count (150-450) k/uL Lymphocytes # (1.0-4.8) k/uL Sodium (137-145) mmol/L Potassium 3.3 L (3.5-5.1) mmol/L Carbon Dioxide (22-30) mmol/L BUN 69 H (9-20) mg/dL Creatinine 5.22 H (0.66-1.25) mg/dL Glucose (74-99) mg/dL POC Glucose (mg/dL) 106 H 171 H (75-99) mg/dL Calcium 7.5 L (8.4-10.2) mg/dL Phosphorus (2.5-4.5) mg/dL Crossmatch 06/12/18 06/12/18 06/12/18 Range/Units 04:25 04:25 07:26 WBC 3.4 L (3.8-10.6) k/uL RBC 2.52 L (4.30-5.90) m/uL Hgb 8.1 L D (13.0-17.5) gm/dL Hct 23.2 L (39.0-53.0) % Plt Count 27 L (150-450) k/uL Lymphocytes # 0.6 L (1.0-4.8) k/uL Sodium 136 L (137-145) mmol/L Potassium (3.5-5.1) mmol/L Carbon Dioxide 21 L (22-30) mmol/L BUN 73 H (9-20) mg/dL Creatinine 5.50 H (0.66-1.25) mg/dL Glucose 109 H (74-99) mg/dL POC Glucose (mg/dL) 120 H (75-99) mg/dL Calcium 7.3 L (8.4-10.2) mg/dL Phosphorus 5.8 H (2.5-4.5) mg/dL Crossmatch Microbiology - Last 24 Hours (Table) 06/09/18 12:15 Blood Culture - Preliminary Blood No Growth after 48 hours 06/09/18 04:34 Gram Stain - Final Sputum Sputum Culture - Final Ofelia albicans Assessment and Plan Assessment: Assessment Acute non-ST elevation myocardial infarction Coronary artery disease and prior stenting End stage renal disease on hemodialysis Acute respiratory failure which has resolved Anemia Thrombocytopenia Uncontrolled hypertension Plan Increase the dose of lisinopril The hemoglobin is a slightly better after one unit of blood Monitor the hemoglobin and platelet Hold any kind of antiplatelet at this point Follow-up with the patient
--- NOTE | 2018-06-12 07:57 | P.PN ---
Subjective Progress Note Date: 06/12/18 Principal diagnosis: Respiratory failure Progress note dated 06/12/2018 57-year-old male with a history of acute pulmonary edema and fluid overload secondary to chronic renal failure, which required intubation and mechanical ventilation. The patient was successfully extubated on June 10. The patient also has a history of systolic dysfunction and in ejection fraction of 30%, possible pneumonia, metabolic encephalopathy, thrombocytopenia and splenomegaly, basal cell carcinoma the right ear and forehead, sleep apnea syndrome, end-stage renal disease requiring 3, week hemodialysis, type 2 diabetes, and hyperkalemia secondary to renal failure. Overall, the patient is doing much better. He is awake and alert. His chest x-ray shows continued mild fluid overload. His Bilateral pleural effusions. The patient is not requiring any supplemental oxygen. Not receiving any IV fluids. The patient had hemodialysis on Friday which is his usual hemodialysis today and nothing yesterday. I suspect he'll have hemodialysis today. Microbiologic studies are negative. Objective - Vital Signs Vital signs: Vital Signs Temp 98.2 F 06/12/18 04:00 Pulse 64 06/12/18 07:00 Resp 21 06/12/18 07:00 BP 174/75 06/12/18 07:00 Pulse Ox 96 06/12/18 07:00 Intake & Output 06/11/18 06/12/18 06/12/18 18:59 06:59 18:59 Intake Total 1676.0 443 Output Total 345 520 50 Balance 1331.0 -77 -50 Weight 100 kg 99.9 kg Intake: IV 216 83 Piperacillin-Tazobactam 3 50 .375 gm In Dextrose/Water 1 50ml.bag @ 12.5 mls/hr IVPB Q12HR [facility] Rx#: [id number] Sodium Chloride 0.9% 1, 180 000 ml @ 20 mls/hr IV . Q24H [facility] Rx#:[id number] pressure bag 36 33 Intake, IV Titration 300.0 Amount Piperacillin-Tazobactam 3 50.0 .375 gm In Dextrose/Water 1 50ml.bag @ 12.5 mls/hr IVPB Q12HR [facility] Rx#: [id number] Vancomycin 1,500 mg In 250 Sodium Chloride 0.9% 250 ml @ 125 mls/hr IVPB ONCE ONE Rx#:[id number] Oral 850 360 Blood Product 310 Rc As-3 Unit 310 [id number] Output: Urine 345 520 50 Other: Voiding Method Indwelling Catheter Indwelling Catheter ABP, PAP, CO, CI - Last Documented Arterial Blood Pressure 188/51 - Exam No acute distress, oriented 3. Not requiring any supplemental oxygen. HEENT examination is grossly unremarkable. Mucous membranes are moist. No oral lesions. Neck supple. Full range of motion. No adenopathy thyromegaly or neck vein distention. Cardiovascular examination reveals regular rhythm rate. S1-S2 normal. No S3 or S4. No discernible murmur noted. Heart sounds are distant. Lungs reveal mostly clear breath sounds. There are diffuse bilateral rhonchi as well as a few scattered crackles. Breath sounds are diminished throughout. There are no wheezes. Breath sounds are equal bilaterally. Abdomen soft bowel sounds are heard. No masses or tenderness. Extremities are intact. No cyanosis clubbing or edema. Skin is without rash or lesion. Neurologic examination is brief but nonfocal. - Labs CBC & Chem 7: 06/12/18 04:25 06/12/18 04:25 Labs: Abnormal Lab Results - Last 24 Hours (Table) 06/09/18 06/11/18 06/11/18 Range/Units 08:42 07:45 11:39 WBC (3.8-10.6) k/uL RBC (4.30-5.90) m/uL Hgb (13.0-17.5) gm/dL Hct (39.0-53.0) % Plt Count (150-450) k/uL Lymphocytes # (1.0-4.8) k/uL Sodium (137-145) mmol/L Potassium (3.5-5.1) mmol/L Carbon Dioxide (22-30) mmol/L BUN (9-20) mg/dL Creatinine (0.66-1.25) mg/dL Glucose (74-99) mg/dL POC Glucose (mg/dL) 248 H 245 H (75-99) mg/dL Calcium (8.4-10.2) mg/dL Phosphorus (2.5-4.5) mg/dL Crossmatch See Detail 06/11/18 06/11/18 06/11/18 Range/Units 17:36 20:45 23:00 WBC (3.8-10.6) k/uL RBC (4.30-5.90) m/uL Hgb (13.0-17.5) gm/dL Hct (39.0-53.0) % Plt Count (150-450) k/uL Lymphocytes # (1.0-4.8) k/uL Sodium (137-145) mmol/L Potassium 3.3 L (3.5-5.1) mmol/L Carbon Dioxide (22-30) mmol/L BUN 69 H (9-20) mg/dL Creatinine 5.22 H (0.66-1.25) mg/dL Glucose (74-99) mg/dL POC Glucose (mg/dL) 106 H 171 H (75-99) mg/dL Calcium 7.5 L (8.4-10.2) mg/dL Phosphorus (2.5-4.5) mg/dL Crossmatch 06/12/18 06/12/18 06/12/18 Range/Units 04:25 04:25 07:26 WBC 3.4 L (3.8-10.6) k/uL RBC 2.52 L (4.30-5.90) m/uL Hgb 8.1 L D (13.0-17.5) gm/dL Hct 23.2 L (39.0-53.0) % Plt Count 27 L (150-450) k/uL Lymphocytes # 0.6 L (1.0-4.8) k/uL Sodium 136 L (137-145) mmol/L Potassium (3.5-5.1) mmol/L Carbon Dioxide 21 L (22-30) mmol/L BUN 73 H (9-20) mg/dL Creatinine 5.50 H (0.66-1.25) mg/dL Glucose 109 H (74-99) mg/dL POC Glucose (mg/dL) 120 H (75-99) mg/dL Calcium 7.3 L (8.4-10.2) mg/dL Phosphorus 5.8 H (2.5-4.5) mg/dL Crossmatch Microbiology - Last 24 Hours (Table) 06/09/18 12:15 Blood Culture - Preliminary Blood No Growth after 48 hours 06/09/18 04:34 Gram Stain - Final Sputum Sputum Culture - Final Ofelia albicans Assessment and Plan Assessment: Assessment Acute pulmonary edema secondary to fluid overload and chronic renal failure as well as systolic dysfunction, which required intubation and mechanical ventilation and successful extubation on June 10. Possible pneumonia Metabolic encephalopathy, resolved Acute on chronic systolic congestive heart failure Chronic thrombocytopenia/splenomegaly, related to alcoholic liver disease History of basal cell carcinoma of the right ear and forehead, status post Mohs surgery Sleep apnea syndrome, poor compliance with CPAP End-stage renal disease on 3 time a week hemodialysis Type 2 diabetes mellitus Acute non-ST; elevation myocardial infarction Probable adrenal insufficiency Plan: Plan dated 06/12/2018 Microbiologic studies are all negative. White count is 3.4 hemoglobin 8.1 hematocrit 23.2 and platelet count is 27,000. Sodium 136, potassium 3.7, chlorides 102 and CO2 21. Anion gap is mildly elevated at 13 secondary to renal failure with a BUN of 73 and creatinine 5.50. Medications are reviewed. Some adjustments will be made. Additional recommendations and suggestions are forthcoming. We will continue to follow closely. Prognosis is guarded. Critical care time is 33 minutes Time with Patient: Greater than 30
[2018-06-12] MEDS: METOPROLOL TARTRATE 50 MG TAB PO SCH ×2 (07:58→21:00)
[2018-06-12] MEDS: CALCIUM ACETATE 667 MG CAP PO SCH ×3 (07:58→17:45)
[2018-06-12] MEDS: LISINOPRIL 20 MG TAB PO SCH (07:59)
[2018-06-12] MEDS: ARIPiprazole 5 MG TAB PO SCH (07:59)
[2018-06-12] MEDS: HYDROCORTISONE 20 MG TAB PO SCH (07:59)
[2018-06-12] MEDS: CHOLECALCIFEROL 1,000 UNIT TAB PO SCH (07:59)
[2018-06-12] MEDS: ISOSORBIDE MONONITRATE ER 30 MG TAB.ER.24H PO SCH (07:59)
[2018-06-12] MEDS: guaiFENesin 600 MG TABLET.ER PO SCH (08:00)
[2018-06-12] MEDS: INSULIN ASPART 100 UNIT/ML 1 ML 10 ML VIAL SQ SCH ×7 (08:00→20:46)
[2018-06-12] MEDS: NYSTATIN 100,000 UNIT/ML SUSP 500,000 UNIT/5 ML CUP PO SCH ×4 (08:00→21:00)
[2018-06-12] MEDS: DILTIAZEM CD 180 MG CAP.ER.24H PO SCH (08:00)
[2018-06-12] MEDS: PANTOPRAZOLE 40 MG/10 ML VIAL IVP SCH (08:00)
[2018-06-12] MEDS: PIPERACILLIN-TAZOBACTAM 3.375 GM in DEXTROSE/WATER 1 50ML.BAG IVPB SCH ×2 (08:01→21:00)
[2018-06-12] MEDS: IPRATROPIUM-ALBUTEROL 3 ML NEB INHALATION SCH ×4 (08:08→20:33)
[2018-06-12] MEDS: INSULIN DETEMIR 100 UNIT/ML 10 ML VIAL SQ SCH (09:45)
[2018-06-12 11:31] LABS: Glucose,Whole Blood 132 mg/dL (75-99)
[2018-06-12] MEDS: ALPRAZolam 0.25 MG TAB PO PRN (13:32)
--- NOTE | 2018-06-12 13:40 | P.PN ---
Subjective Patient is seen in follow-up for end-stage renal disease. He is maintained on hemodialysis on a Friday schedule via left upper extremity AV fistula. Patient had a cardiac arrest from hyperkalemia. Patient was emergently hemodialyzed and potassium level normalized. He is currently off Levophed. Patient did require blood transfusions this admission. Hemoglobin 8.1 today. No active bleeding. Cultures remain negative so far. Patient is awake and alert. Denies any active chest pain or shortness of breath. Oral intake is good. Currently seen was undergoing hemodialysis. Vital signs stable. General: The patient appeared well nourished and normally developed. HEENT: Head exam is unremarkable. Neck is without jugular venous distension. LUNGS: Breath sounds decreased. HEART: Rate and Rhythm are regular. First and second heart sounds normal. No murmurs, rubs or gallops. ABDOMEN: Abdominal exam reveals normal bowel sounds. Non-tender and non- distended. No evidence of peritonitis. EXTREMITITES: No clubbing, cyanosis, or edema. Objective - Vital Signs Vital signs: Vital Signs Temp 97.6 F 06/12/18 08:00 Pulse 62 06/12/18 13:00 Resp 16 06/12/18 10:00 BP 166/69 06/12/18 13:00 Pulse Ox 96 06/12/18 13:00 Intake & Output 06/11/18 06/12/18 06/12/18 18:59 06:59 18:59 Intake Total 1676.0 443 300.0 Output Total 345 520 250 Balance 1331.0 -77 50.0 Weight 100 kg 99.9 kg Intake: IV 216 83 50.0 Piperacillin-Tazobactam 3 50 50.0 .375 gm In Dextrose/Water 1 50ml.bag @ 12.5 mls/hr IVPB Q12HR [facility] Rx#: [id number] Sodium Chloride 0.9% 1, 180 000 ml @ 20 mls/hr IV . Q24H [facility] Rx#:[id number] pressure bag 36 33 Intake, IV Titration 300.0 Amount Piperacillin-Tazobactam 3 50.0 .375 gm In Dextrose/Water 1 50ml.bag @ 12.5 mls/hr IVPB Q12HR [facility] Rx#: [id number] Vancomycin 1,500 mg In 250 Sodium Chloride 0.9% 250 ml @ 125 mls/hr IVPB ONCE ONE Rx#:[id number] Oral 850 360 250 Blood Product 310 Rc As-3 Unit 310 [id number] Output: Urine 345 520 250 Other: Voiding Method Indwelling Catheter Indwelling Catheter Indwelling Catheter ABP, PAP, CO, CI - Last Documented Arterial Blood Pressure 188/51 - Labs CBC & Chem 7: 06/12/18 04:25 06/12/18 04:25 Labs: Abnormal Lab Results - Last 24 Hours (Table) 06/11/18 06/11/18 06/11/18 Range/Units 17:36 20:45 23:00 WBC (3.8-10.6) k/uL RBC (4.30-5.90) m/uL Hgb (13.0-17.5) gm/dL Hct (39.0-53.0) % Plt Count (150-450) k/uL Lymphocytes # (1.0-4.8) k/uL Sodium (137-145) mmol/L Potassium 3.3 L (3.5-5.1) mmol/L Carbon Dioxide (22-30) mmol/L BUN 69 H (9-20) mg/dL Creatinine 5.22 H (0.66-1.25) mg/dL Glucose (74-99) mg/dL POC Glucose (mg/dL) 106 H 171 H (75-99) mg/dL Calcium 7.5 L (8.4-10.2) mg/dL Phosphorus (2.5-4.5) mg/dL 06/12/18 06/12/18 06/12/18 Range/Units 04:25 04:25 07:26 WBC 3.4 L (3.8-10.6) k/uL RBC 2.52 L (4.30-5.90) m/uL Hgb 8.1 L D (13.0-17.5) gm/dL Hct 23.2 L (39.0-53.0) % Plt Count 27 L (150-450) k/uL Lymphocytes # 0.6 L (1.0-4.8) k/uL Sodium 136 L (137-145) mmol/L Potassium (3.5-5.1) mmol/L Carbon Dioxide 21 L (22-30) mmol/L BUN 73 H (9-20) mg/dL Creatinine 5.50 H (0.66-1.25) mg/dL Glucose 109 H (74-99) mg/dL POC Glucose (mg/dL) 120 H (75-99) mg/dL Calcium 7.3 L (8.4-10.2) mg/dL Phosphorus 5.8 H (2.5-4.5) mg/dL 06/12/18 Range/Units 11:20 WBC (3.8-10.6) k/uL RBC (4.30-5.90) m/uL Hgb (13.0-17.5) gm/dL Hct (39.0-53.0) % Plt Count (150-450) k/uL Lymphocytes # (1.0-4.8) k/uL Sodium (137-145) mmol/L Potassium (3.5-5.1) mmol/L Carbon Dioxide (22-30) mmol/L BUN (9-20) mg/dL Creatinine (0.66-1.25) mg/dL Glucose (74-99) mg/dL POC Glucose (mg/dL) 132 H (75-99) mg/dL Calcium (8.4-10.2) mg/dL Phosphorus (2.5-4.5) mg/dL Microbiology - Last 24 Hours (Table) 06/09/18 12:15 Blood Culture - Preliminary Blood No Growth after 48 hours 06/09/18 04:34 Gram Stain - Final Sputum Sputum Culture - Final Ofelia albicans Assessment and Plan Plan: Assessment: 1. ESRD maintained on HD on MWF schedule via LUE AVF. 2. Cardiac arrest secondary to hyperkalemia. 3. Hypotension, currently off vasopressors. Blood pressure controlled. 4. Hyperkalemia secondary to CKD and concern for GIB. 5. Anemia of CKD - ?actute GIB - status post blood transfusions this admission. Hemoglobin 8.1 today. Maintained on Aranesp. 6. Sepsis mostly likely due to PNA maintained on antibiotics. 7. Chronic kidney disease mineral bone disease. Phosphorus level 6.6. Repeat 5.8. Maintained on PhosLo. 8. Volume overload. Improved with ultrafiltration. 9. Systolic CHF with ejection fraction of 30-35%. Plan: Currently seen while undergoing hemodialysis. Next treatment on Friday. Monitor hemoglobin and transfuse if hemoglobin less than 7.
--- NOTE | 2018-06-12 13:50 | P.PN ---
Subjective Progress Note Date: 06/12/18 This is a 57 Year-Old male one of patient with a previous medical history significant for CAD post PCI and stenting of the RCA x3 stents 2013. 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 Last admitted June 2017 for metabolic encephalopathy and acute hypoxic hypercarbic respiratory failure secondary to acute diastolic heart failure and hypercarbia for which patient was briefly intubated. Sepsis was ruled out during the last admission. Patient comes at this time with increased generalized weakness associated with change in mental status. Patient does complain of some cough and shortness of breath with sputum production. Most of the history is provided by the family at bedside as patient is not able to give any history. He did have 3 suspected skin cancer removed for biopsy by Dr. Myers but was feeling unwell for past 2 days. Patient missed dialysis yesterday due to the weakness. He usually gets it at Friday and Friday. In the ER patient was found to have a fever of 103 pulse rate of 125, respiratory rate 32, blood pressure 183/81. Labs obtained in the ER suggested leukocyte of 8.6 chronic thrombocytopenia with platelets 52, INR 1.1, potassium 6.7, creatinine 5.42, glucose 233 calcium 8, total bilirubin 1.4 initial troponin 0.651 which increased to 2.6. Lactate is 1.7 Patient was evaluated by cardiology in the ER was suggested that the increase in troponin been related to sepsis. Echocardiogram has been ordered. Chest x-ray done in the ER concerning for interstitial infiltrate concerning for pneumonia. Patient has already received 1 dose of vancomycin and Levaquin dose adjusted to kidney functions. Due to patient's end-stage renal disease patient would not be able to get any fluid boluses or at maintainance. Pro- calcitonin ordered. Mycoplasma and urinary legionella ordered. Patient is admitted for sepsis secondary to community-acquired pneumonia with possible volume overload and hypercarbia causing change in mental status. 06/05: Patient lying in bed with Dialysis at bedside. Patient did get up and walk around today but states he was Short of breath when returning to bed. Patient continues with SOB with exertion and fatigue. Patient has a history of anemia, thrombocytopenia and Hgb decreased to 7.6. Patient does complain of bilateral abdominal pain. 06/06: patient is sitting at the edge of he bed eating breakfast, feeling a bit better, no fever or chills, no abdominal pain, still short of breath with activity,we will continue to monitor hgb very closely. 06/07: Patient is laying down in bed he is complain of constipation we will start him on lactulose 30 mL twice every day, patient was instructed to use the CPAP while he is sleeping because of his deep sleep, he denies any chest pain he is less short of breath, we'll continue to monitor the patient very closely. 06/08: Last night around midnight, rapid response team was called to the patients bedside due to respiratory distress, hypoxia, and respiratory failure. The patient was intubated. He also underwent emergent hemodialysis. This morning , patient remains intubated and sedated, he remains on Levofed. Settings are rate of 24, tidal volume 450, Fi02 of 50% and PEEP of 5. This morning, labs reveal an elevated of white blood cell count 18.4, Hbg 9.5, Cr 3.64 and BUN 33, blood gas Po2 128, Pco2 41, PH 7.39. He remain on Zosyn, Levaquin and vancomycin. Blood cultures show no growth to date. Repeat chest xray showed some clearing of pulmonary vascular congestion. 06/09: Patient evaluated this morning. He continues to be intubated and on a ventilator, settings are assist control, rate of 24, tidal volume 450, Fi02 40% , and PEEP of 5. His ABG shows p02 117, pC02 42, PH 7.42. His hemoglobin dropped to 6.7, platelets dropped to 44. He is scheduled to receive 1 unit of PRBCs. He still requires small dose of vasopressors. Blood cultures still show no growth to date, he remain on zosyn, Levaquin and vancomycin. His did have a temperature of 101, repeat blood cultures have been drawn. He is receiving tube feedings per dietary recommendations. 06/10: Patient remains in the intensive care unit. He is receiving hemodialysis at this time. Patient was extubated this morning at 10 AM. Nystatin ordered for thrush. He is currently on Levaquin, Zosyn and pharmacy dose vancomycin. Patient has been off norepinephrine. He has been resumed on Cardizem. His blood pressure is on the higher side. He has been afebrile. Hemoglobin is 6.7, white count 2.4, platelet count 29, BUN 59, creatinine 6.244. Blood sugars are running between 106 and 287. Urine, sputum cultures in progress. Blood cultures no growth. 06/11: Patient remains in intensive care unit. Blood pressure medications were resumed yesterday. He has complained of a headache to the frontal area. No vision changes. His sore throat is better today. He is complaining of difficulty sleeping for which melatonin is been added. He did have 5 bowel movements yesterday afternoon and C. diff was negative. Lactulose held and discontinued. He is currently undergoing transfusion 1 unit packed RBC for hemoglobin of 6.6. This will be his third unit since admission. WBC count is 3.1 and platelet count 22. Consult with oncology for pancytopenia. Blood sugars been running in the 200s. Levemir increased to 30 units. He has been afebrile, blood pressure on the higher side. Pulse ox is 93% on room air. He is scheduled for hemodialysis for tomorrow. 06/12:Patient remains afebrile and hemodynamically stable. Blood pressure has been high and Dr. aH has increased Lisinopril to 40 mg daily. Hgb 8.1 after yesterday's transfusion. Hematology is planning to see patient today. PLT 27. Barrientos remains in place. He is undergoing HD today. Patient had ectopy on youth nutritional monitor and potassium was replaced with improvement. Chest x-ray shows worsening bibasilar airspace disease, right greater than left with progressive pulmonary vascular congestion and interstitial edema. Findings likely related to decompensated congestive heart failure and confluent pulmonary edema with atelectasis. Patient was started on melatonin last night but only slept 2 hours. He has difficulty sleeping as he is afraid of dying while he sleeping. He is complaining of peripheral neuropathy and Lyrica will be resumed. Review Of Systems: Constitutional: No fever, no chills, no night sweats. + weakness, fatigue. EENT: + headache. No no loss of vision. No loss of Hearing, no ringing in the ears, no dizziness. No epistaxis. No sore throat. Lungs: no shortness of breath, + cough, no sputum production. No wheezing. Cardiovascular: No chest pain. No lightheadedness or dizziness. No syncopal episodes. Abdominal: No abdominal pain. No nausea, vomiting. no diarrhea. No constipation. No bloody or tarry stools. Genitourinary: + barrientos Musculoskeletal: + muscle weakness. Integumentary: No wounds. No rash or pruritus. No unusual bruising. Objective - Vital Signs Vital signs: Vital Signs Temp 98.2 F 06/12/18 04:00 Pulse 67 06/12/18 08:20 Resp 21 06/12/18 07:00 BP 174/75 06/12/18 07:00 Pulse Ox 100 06/12/18 08:10 Intake & Output 06/11/18 06/12/18 06/12/18 18:59 06:59 18:59 Intake Total 1676.0 443 Output Total 345 520 50 Balance 1331.0 -77 -50 Weight 100 kg 99.9 kg Intake: IV 216 83 Piperacillin-Tazobactam 3 50 .375 gm In Dextrose/Water 1 50ml.bag @ 12.5 mls/hr IVPB Q12HR [facility] Rx#: [id number] Sodium Chloride 0.9% 1, 180 000 ml @ 20 mls/hr IV . Q24H [facility] Rx#:[id number] pressure bag 36 33 Intake, IV Titration 300.0 Amount Piperacillin-Tazobactam 3 50.0 .375 gm In Dextrose/Water 1 50ml.bag @ 12.5 mls/hr IVPB Q12HR [facility] Rx#: [id number] Vancomycin 1,500 mg In 250 Sodium Chloride 0.9% 250 ml @ 125 mls/hr IVPB ONCE ONE Rx#:[id number] Oral 850 360 Blood Product 310 Rc As-3 Unit 310 [id number] Output: Urine 345 520 50 Other: Voiding Method Indwelling Catheter Indwelling Catheter ABP, PAP, CO, CI - Last Documented Arterial Blood Pressure 188/51 - Exam Constitutional Comment(s): Awake, alert, sitting up in bed, appears comfortable, no change General appearance: Present: no acute distress - EENT Eyes: Present: PERRLA, normal appearance - Respiratory Respiratory: bilateral: CTA, negative: rales, rhonchi, wheezing - Cardiovascular Heart sounds: normal: S1, S2 - Gastrointestinal General gastrointestinal: Present: normal bowel sounds, soft. Absent: distended , hepatomegaly, organomegaly, tenderness - Neurologic Neurologic: Absent: focal deficits - Musculoskeletal Musculoskeletal Comment(s): Generalized weakness. - Labs CBC & Chem 7: 06/12/18 04:25 06/12/18 04:25 Labs: Abnormal Lab Results - Last 24 Hours (Table) 06/09/18 06/11/18 06/11/18 Range/Units 08:42 11:39 17:36 WBC (3.8-10.6) k/uL RBC (4.30-5.90) m/uL Hgb (13.0-17.5) gm/dL Hct (39.0-53.0) % Plt Count (150-450) k/uL Lymphocytes # (1.0-4.8) k/uL Sodium (137-145) mmol/L Potassium (3.5-5.1) mmol/L Carbon Dioxide (22-30) mmol/L BUN (9-20) mg/dL Creatinine (0.66-1.25) mg/dL Glucose (74-99) mg/dL POC Glucose (mg/dL) 245 H 106 H (75-99) mg/dL Calcium (8.4-10.2) mg/dL Phosphorus (2.5-4.5) mg/dL Crossmatch See Detail 06/11/18 06/11/18 06/12/18 Range/Units 20:45 23:00 04:25 WBC (3.8-10.6) k/uL RBC (4.30-5.90) m/uL Hgb (13.0-17.5) gm/dL Hct (39.0-53.0) % Plt Count (150-450) k/uL Lymphocytes # (1.0-4.8) k/uL Sodium 136 L (137-145) mmol/L Potassium 3.3 L (3.5-5.1) mmol/L Carbon Dioxide 21 L (22-30) mmol/L BUN 69 H 73 H (9-20) mg/dL Creatinine 5.22 H 5.50 H (0.66-1.25) mg/dL Glucose 109 H (74-99) mg/dL POC Glucose (mg/dL) 171 H (75-99) mg/dL Calcium 7.5 L 7.3 L (8.4-10.2) mg/dL Phosphorus 5.8 H (2.5-4.5) mg/dL Crossmatch 06/12/18 06/12/18 Range/Units 04:25 07:26 WBC 3.4 L (3.8-10.6) k/uL RBC 2.52 L (4.30-5.90) m/uL Hgb 8.1 L D (13.0-17.5) gm/dL Hct 23.2 L (39.0-53.0) % Plt Count 27 L (150-450) k/uL Lymphocytes # 0.6 L (1.0-4.8) k/uL Sodium (137-145) mmol/L Potassium (3.5-5.1) mmol/L Carbon Dioxide (22-30) mmol/L BUN (9-20) mg/dL Creatinine (0.66-1.25) mg/dL Glucose (74-99) mg/dL POC Glucose (mg/dL) 120 H (75-99) mg/dL Calcium (8.4-10.2) mg/dL Phosphorus (2.5-4.5) mg/dL Crossmatch Microbiology - Last 24 Hours (Table) 06/09/18 12:15 Blood Culture - Preliminary Blood No Growth after 48 hours 06/09/18 04:34 Gram Stain - Final Sputum Sputum Culture - Final Ofelia albicans Assessment and Plan Plan: 1. Acute hypoxic respiratory failure likely secondary to pneumonia and fluid overload from chronic renal failure, acute on chronic systolic heart failure with known ejection fraction of 30%. He has been successfully extubated pulmonary consult is appreciated. Continue DuoNeb treatments every 4 hours, Solu-Cortef changed to oral Cortef, Mucinex, Levaquin, Zosyn and pharmacy dose vancomycin. 2. Sepsis with septic shock secondary to gram-negative pneumonia. Legionella and Mycoplasma testing negative. Patient has been seen by Dr. Nicholson. Continue antibiotics the form of Levaquin, Zosyn, vancomycin. 3. Acute non ST elevated [place]. Patient is followed by Dr. Ha. Echocardiogram decreased to 30-35%. Continue Imdur 30 mg daily, Lopressor. 4. Cardiac arrest due to hyperkalemia secondary to noncompliance to dialysis. 5. Metabolic encephalopathy likely secondary to sepsis with possible hypercarbia. 6. Type 2 diabetes insulin requiring. Patient is currently on Levemir 27 units daily, NovoLog 9 units with meals and NovoLog to scale added. 7. Acute on chronic diastolic heart failure. Monitor input and output. Daily weights. Patient is currently off diuretics. Continue dialysis per nephrology. Continue diltiazem 180 mg by mouth daily. Lopressor has been on hold as well as lisinopril. 8. Diabetic neuropathy. Lyrica resumed. 9. End stage renal disease on hemodialysis Friday. Continue [place]. Nephrology consult appreciated. Continue dialysis per nephrology. 10. MONTSE noncompliant to CPAP 11. CAD status post PCI to the RCA. Medications prior to admission: aspirin 81 mg Lipitor 80 mg by mouth daily continue metoprolol 150 mg twice a day, diltiazem 180 mg daily 12. 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 It is chronically low. Hold anticoagulation therapy 13. Generalized anxiety disorder and recurrent depression. Continue Abilify 5 mg daily. 14. Peripheral artery disease. 15. Degenerative disc disease of cervical spine status post-ACDF. 16. DVT prophylaxis with mechanical prophylaxis knee-high RYAN hose 17. GI prophylaxis continue with PPIs 18. Chronic Anemia of chronic renal disease 19. Acute abdominal pain. CT with no contrast showed splenomegaly with collateral blood vessels at the upper abdomen with small right sided pleural effusion. 20. Pancytopenia. Consult with hematology. 21. Insomnia. Melatonin. Discharge plan: To be determined. Impression and plan of care have been directed as dictated by the signing physician. Iram Love nurse practitioner acting as scribe for signing physician.
[2018-06-12 17:22] LABS: Glucose,Whole Blood 160 mg/dL (75-99)
[2018-06-12] MEDS: DARBEPOETIN ALFA 60 MCG/0.3 ML SYRINGE SQ SCH (18:43)
[2018-06-12 20:50] LABS: Glucose,Whole Blood 91 mg/dL (75-99)
[2018-06-12] MEDS: HYDROCORTISONE 10 MG TAB PO SCH (21:00)
[2018-06-12] MEDS: MELATONIN 3 MG TABLET PO SCH (21:01)
[2018-06-13] MEDS: SODIUM CHLORIDE 0.9% 1,000 ML IV SCH (01:22)
[2018-06-13] MEDS: MORPHINE SULFATE 2 MG/ML SYRINGE IVP PRN ×3 (01:23→16:40)
[2018-06-13 04:31] LABS: Basophils % (A) 0 %; Eosinophils # (A) 0.1 k/uL (0-0.7); Eosinophils % (A) 2 %; HCT 23.3 % (39.0-53.0); HGB 8.2 gm/dL (13.0-17.5); Lymphocytes # (A) 0.5 k/uL (1.0-4.8); Lymphocytes % (A) 11 %; MCH 31.7 pg (25.0-35.0); MCHC 35.1 g/dL (31.0-37.0); MCV 90.3 fL (80.0-100.0); Mean Platelet Volume 10.4; Monocytes # (A) 0.2 k/uL (0-1.0); Monocytes % (A) 5 %; Neutrophils # (A) 3.7 k/uL (1.3-7.7); Neutrophils % (A) 80 %; RBC 2.59 m/uL (4.30-5.90); RDW 15.6 % (11.5-15.5); WBC 4.6 k/uL (3.8-10.6)
[2018-06-13] MEDS: HYDROcodone/APAP 10-325MG 1 EACH TAB PO PRN (04:32)
[2018-06-13 04:36] LABS: Platelet Count 27 k/uL (150-450)
[2018-06-13 04:38] LABS: Calcium 7.9 mg/dL (8.4-10.2); Phosphorus 3.6 mg/dL (2.5-4.5); Potassium 3.8 mmol/L (3.5-5.1)
--- NOTE | 2018-06-13 07:16 | P.PN ---
Subjective Progress Note Date: 06/13/18 Principal diagnosis: SNTEMI This is a pleasant 57-year-old gentleman with history of end-stage renal disease on hemodialysis, hypertension, insulin requiring diabetes, CAD with prior stenting. He follows with a application support administrator out of [facility]. He presented to the hospital primary complaining of not feeling well overall mild confusion and fever. We were asked to the patient in consultation due to elevated troponin with initial troponin of 0.651 second troponin 2.6 and third troponin 3.5. Patient was initially febrile. Hemoglobin is improved at 9.0 and platelet count is 84 heparin; and anti-platelets have been avoided. Started the patient on oral nitrates. Echocardiogram with Doppler came back to show an ejection fraction of 30-35% with anterior septal, inferior and septal hypokinesis. Few days ago, rapid response team was called for this patient due to respiratory distress, acute hypoxemic and hypercapnic respiratory failure. Patient was bradycardic. CODE BLUE was called. Patient was emergently intubated. Upon examination, patient remains sedated on propofol. On follow-up with the patient today, June [id number], he is doing better. He was extubated the day before yesterday. He remained hemodynamically stable. The blood pressure is definitely better after I increase the dose of lisinopril to 40 mg by mouth daily. The hemoglobin continues to be stable and around 8. We'll continue holding antiplatelet in view of the thrombocytopenia. Objective - Vital Signs Vital signs: Vital Signs Temp 98.4 F 06/13/18 04:00 Pulse 63 06/13/18 04:00 Resp 20 06/13/18 04:00 BP 155/66 06/13/18 04:00 Pulse Ox 96 06/13/18 04:00 Intake & Output 06/12/18 06/13/18 06/13/18 18:59 06:59 18:59 Intake Total 700.0 490 Output Total 280 Balance 420.0 490 Weight 99.9 kg 97.1 kg Intake: IV 50.0 50 Piperacillin-Tazobactam 3 50.0 50 .375 gm In Dextrose/Water 1 50ml.bag @ 12.5 mls/hr IVPB Q12HR [facility] Rx#: [id number] Oral 650 440 Output: Urine 280 Other: Voiding Method Indwelling Catheter # Voids 0 # Bowel Movements 1 ABP, PAP, CO, CI - Last Documented Arterial Blood Pressure 188/51 - Constitutional General appearance: Present: no acute distress - Respiratory Respiratory: bilateral: CTA - Cardiovascular Rhythm: regular Heart sounds: normal: S1, S2 - Labs CBC & Chem 7: 06/13/18 04:10 06/13/18 04:10 Labs: Abnormal Lab Results - Last 24 Hours (Table) 06/12/18 06/12/18 06/12/18 Range/Units 07:26 11:20 17:09 RBC (4.30-5.90) m/uL Hgb (13.0-17.5) gm/dL Hct (39.0-53.0) % RDW (11.5-15.5) % Plt Count (150-450) k/uL Lymphocytes # (1.0-4.8) k/uL Sodium (137-145) mmol/L Carbon Dioxide (22-30) mmol/L BUN (9-20) mg/dL Creatinine (0.66-1.25) mg/dL POC Glucose (mg/dL) 120 H 132 H 160 H (75-99) mg/dL Calcium (8.4-10.2) mg/dL 06/13/18 06/13/18 Range/Units 04:10 04:10 RBC 2.59 L (4.30-5.90) m/uL Hgb 8.2 L (13.0-17.5) gm/dL Hct 23.3 L (39.0-53.0) % RDW 15.6 H (11.5-15.5) % Plt Count 27 L (150-450) k/uL Lymphocytes # 0.5 L (1.0-4.8) k/uL Sodium 134 L (137-145) mmol/L Carbon Dioxide 21 L (22-30) mmol/L BUN 53 H (9-20) mg/dL Creatinine 4.45 H (0.66-1.25) mg/dL POC Glucose (mg/dL) (75-99) mg/dL Calcium 7.9 L (8.4-10.2) mg/dL Microbiology - Last 24 Hours (Table) 06/09/18 12:15 Blood Culture - Preliminary Blood No Growth after 72 hours Assessment and Plan Assessment: Assessment Acute non-ST elevation myocardial infarction Coronary artery disease and prior stenting End stage renal disease on hemodialysis Acute respiratory failure which has resolved Anemia Thrombocytopenia Uncontrolled hypertension Plan Continue the current dose of lisinopril The hemoglobin is a slightly better after one unit of blood Monitor the hemoglobin and platelet Hold any kind of antiplatelet at this point Follow-up with the patient
[2018-06-13 07:31] LABS: Glucose,Whole Blood 96 mg/dL (75-99)
[2018-06-13] MEDS: IPRATROPIUM-ALBUTEROL 3 ML NEB INHALATION SCH ×4 (07:42→20:04)
[2018-06-13] MEDS: INSULIN ASPART 100 UNIT/ML 1 ML 10 ML VIAL SQ SCH ×7 (07:56→21:30)
[2018-06-13] MEDS: METOPROLOL TARTRATE 50 MG TAB PO SCH ×2 (08:23→21:41)
[2018-06-13] MEDS: PANTOPRAZOLE 40 MG TABLET PO SCH (08:23)
[2018-06-13] MEDS: NYSTATIN 100,000 UNIT/ML SUSP 500,000 UNIT/5 ML CUP PO SCH ×4 (08:23→22:55)
[2018-06-13] MEDS: ISOSORBIDE MONONITRATE ER 30 MG TAB.ER.24H PO SCH (08:24)
[2018-06-13] MEDS: LISINOPRIL 20 MG TAB PO SCH (08:24)
[2018-06-13] MEDS: CHOLECALCIFEROL 1,000 UNIT TAB PO SCH (08:24)
[2018-06-13] MEDS: CALCIUM ACETATE 667 MG CAP PO SCH ×2 (08:24→18:56)
[2018-06-13] MEDS: INSULIN DETEMIR 100 UNIT/ML 10 ML VIAL SQ SCH (08:25)
[2018-06-13] MEDS: ARIPiprazole 5 MG TAB PO SCH (08:53)
[2018-06-13] MEDS: DILTIAZEM CD 180 MG CAP.ER.24H PO SCH (08:53)
[2018-06-13] MEDS: HYDROCORTISONE 20 MG TAB PO SCH (08:53)
--- NOTE | 2018-06-13 09:50 | P.PN ---
Subjective Progress Note Date: 06/13/18 Principal diagnosis: Respiratory failure The patient is seen again today 06/13/2018 in follow-up in the intensive care unit. He is currently awake and alert in no acute distress. He denies any worsening shortness of breath, cough or congestion and no chest pain, palpitations lightheadedness or dizziness. Maintaining good O2 saturations in the 90s on room air. No IVs running currently. No chest x-ray done today. He remains afebrile. Hemodynamically stable. Current hemoglobin 8.2. He is status post 3 units of packed red blood cells. Blood culture reveals no growth to date. Urine culture negative. White count 4.6. Hemoglobin 8.2. Creatinine 4.45. Objective - Vital Signs Vital signs: Vital Signs Temp 98.4 F 06/13/18 04:00 Pulse 65 06/13/18 07:52 Resp 20 06/13/18 04:00 BP 155/66 06/13/18 04:00 Pulse Ox 96 06/13/18 04:00 Intake & Output 06/12/18 06/13/18 06/13/18 18:59 06:59 18:59 Intake Total 700.0 490 Output Total 280 Balance 420.0 490 Weight 99.9 kg 97.1 kg Intake: IV 50.0 50 Piperacillin-Tazobactam 3 50.0 50 .375 gm In Dextrose/Water 1 50ml.bag @ 12.5 mls/hr IVPB Q12HR [facility] Rx#: [id number] Oral 650 440 Output: Urine 280 Other: Voiding Method Indwelling Catheter # Voids 0 # Bowel Movements 1 ABP, PAP, CO, CI - Last Documented Arterial Blood Pressure 188/51 - Exam No acute distress, oriented 3. Not requiring any supplemental oxygen. HEENT examination is grossly unremarkable. Mucous membranes are moist. No oral lesions. Neck supple. Full range of motion. No adenopathy thyromegaly or neck vein distention. Cardiovascular examination reveals regular rhythm rate. S1-S2 normal. No S3 or S4. No discernible murmur noted. Heart sounds are distant. Lungs reveal mostly clear breath sounds. There are diffuse bilateral rhonchi as well as a few scattered crackles. Breath sounds are diminished throughout. There are no wheezes. Breath sounds are equal bilaterally. Abdomen soft bowel sounds are heard. No masses or tenderness. Extremities are intact. No cyanosis clubbing or edema. Skin is without rash or lesion. Neurologic examination is brief but nonfocal. - Labs CBC & Chem 7: 06/13/18 04:10 06/13/18 04:10 Labs: Abnormal Lab Results - Last 24 Hours (Table) 06/12/18 06/12/18 06/13/18 Range/Units 11:20 17:09 04:10 RBC (4.30-5.90) m/uL Hgb (13.0-17.5) gm/dL Hct (39.0-53.0) % RDW (11.5-15.5) % Plt Count (150-450) k/uL Lymphocytes # (1.0-4.8) k/uL Sodium 134 L (137-145) mmol/L Carbon Dioxide 21 L (22-30) mmol/L BUN 53 H (9-20) mg/dL Creatinine 4.45 H (0.66-1.25) mg/dL POC Glucose (mg/dL) 132 H 160 H (75-99) mg/dL Calcium 7.9 L (8.4-10.2) mg/dL 06/13/18 Range/Units 04:10 RBC 2.59 L (4.30-5.90) m/uL Hgb 8.2 L (13.0-17.5) gm/dL Hct 23.3 L (39.0-53.0) % RDW 15.6 H (11.5-15.5) % Plt Count 27 L (150-450) k/uL Lymphocytes # 0.5 L (1.0-4.8) k/uL Sodium (137-145) mmol/L Carbon Dioxide (22-30) mmol/L BUN (9-20) mg/dL Creatinine (0.66-1.25) mg/dL POC Glucose (mg/dL) (75-99) mg/dL Calcium (8.4-10.2) mg/dL Microbiology - Last 24 Hours (Table) 06/09/18 12:15 Blood Culture - Preliminary Blood No Growth after 72 hours Assessment and Plan Assessment: Assessment Acute pulmonary edema secondary to fluid overload and chronic renal failure as well as systolic dysfunction, which required intubation and mechanical ventilation and successful extubation on June 10. Currently maintaining good O2 saturations in the 90s on room air. Possible pneumonia Metabolic encephalopathy, resolved Acute on chronic systolic congestive heart failure Chronic thrombocytopenia/splenomegaly, related to alcoholic liver disease History of basal cell carcinoma of the right ear and forehead, status post Mohs surgery Sleep apnea syndrome, poor compliance with CPAP End-stage renal disease on 3 time a week hemodialysis Type 2 diabetes mellitus Acute non-ST; elevation myocardial infarction Probable adrenal insufficiency Plan: The patient was seen and evaluated by Dr. Otoole. He is quite stable from the pulmonary and critical care standpoint. He could be transferred out of the ICU today. We'll continue with his current treatment plan. We'll continue to follow. I, the cosigning physician, performed a history & physical examination of the patient. Lungs sounds with faint crackles in the posterior bases. Maintaining good O2 saturations in the 90s on room air. I discussed the assessment and plan of care with my nurse practitioner, Keila Paredes. I attest to the above note as dictated by her.
--- NOTE | 2018-06-13 10:30 | P.PN ---
Subjective Patient is seen in follow-up for end-stage renal disease. He is maintained on hemodialysis on a Friday schedule via left upper extremity AV fistula. Patient had a cardiac arrest from hyperkalemia. Patient was emergently hemodialyzed and potassium level normalized. He is currently off Levophed. Patient did require blood transfusions this admission. Hemoglobin 8.2 today. No active bleeding. Cultures remain negative so far. Patient is awake and alert. Denies any active chest pain or shortness of breath. Oral intake is good. Vital signs stable. General: The patient appeared well nourished and normally developed. HEENT: Head exam is unremarkable. Neck is without jugular venous distension. LUNGS: Breath sounds decreased. HEART: Rate and Rhythm are regular. First and second heart sounds normal. No murmurs, rubs or gallops. ABDOMEN: Abdominal exam reveals normal bowel sounds. Non-tender and non- distended. No evidence of peritonitis. EXTREMITITES: No clubbing, cyanosis, or edema. Objective - Vital Signs Vital signs: Vital Signs Temp 98.2 F 06/13/18 08:00 Pulse 57 L 06/13/18 10:00 Resp 20 06/13/18 10:00 BP 165/71 06/13/18 10:00 Pulse Ox 96 06/13/18 10:00 Intake & Output 06/12/18 06/13/18 06/13/18 18:59 06:59 18:59 Intake Total 700.0 490 Output Total 280 Balance 420.0 490 Weight 99.9 kg 97.1 kg Intake: IV 50.0 50 Piperacillin-Tazobactam 3 50.0 50 .375 gm In Dextrose/Water 1 50ml.bag @ 12.5 mls/hr IVPB Q12HR [facility] Rx#: [id number] Oral 650 440 Output: Urine 280 Other: Voiding Method Indwelling Catheter # Voids 0 0 # Bowel Movements 1 ABP, PAP, CO, CI - Last Documented Arterial Blood Pressure 188/51 - Labs CBC & Chem 7: 06/13/18 04:10 06/13/18 04:10 Labs: Abnormal Lab Results - Last 24 Hours (Table) 06/12/18 06/12/18 06/13/18 Range/Units 11:20 17:09 04:10 RBC (4.30-5.90) m/uL Hgb (13.0-17.5) gm/dL Hct (39.0-53.0) % RDW (11.5-15.5) % Plt Count (150-450) k/uL Lymphocytes # (1.0-4.8) k/uL Sodium 134 L (137-145) mmol/L Carbon Dioxide 21 L (22-30) mmol/L BUN 53 H (9-20) mg/dL Creatinine 4.45 H (0.66-1.25) mg/dL POC Glucose (mg/dL) 132 H 160 H (75-99) mg/dL Calcium 7.9 L (8.4-10.2) mg/dL 06/13/18 Range/Units 04:10 RBC 2.59 L (4.30-5.90) m/uL Hgb 8.2 L (13.0-17.5) gm/dL Hct 23.3 L (39.0-53.0) % RDW 15.6 H (11.5-15.5) % Plt Count 27 L (150-450) k/uL Lymphocytes # 0.5 L (1.0-4.8) k/uL Sodium (137-145) mmol/L Carbon Dioxide (22-30) mmol/L BUN (9-20) mg/dL Creatinine (0.66-1.25) mg/dL POC Glucose (mg/dL) (75-99) mg/dL Calcium (8.4-10.2) mg/dL Microbiology - Last 24 Hours (Table) 06/09/18 12:15 Blood Culture - Preliminary Blood No Growth after 72 hours Assessment and Plan Plan: Assessment: 1. ESRD maintained on HD on MWF schedule via LUE AVF. 2. Cardiac arrest secondary to hyperkalemia. 3. Hypotension, currently off vasopressors. Blood pressure controlled. 4. Hyperkalemia secondary to CKD and concern for GIB. 5. Anemia of CKD - ?actute GIB - status post blood transfusions this admission. Hemoglobin 8.2 today. Maintained on Aranesp. 6. Sepsis mostly likely due to PNA maintained on antibiotics. 7. Chronic kidney disease mineral bone disease. Phosphorus level 6.6. Repeat 5.8. Maintained on PhosLo. 8. Volume overload. Improved with ultrafiltration. 9. Systolic CHF with ejection fraction of 30-35%. 10. Acute non-ST elevated myocardial infarction. Cardiology following. Plan: Hemodialysis on Friday. Monitor hemoglobin and transfuse if hemoglobin less than 7.
[2018-06-13 11:22] LABS: Glucose,Whole Blood 56 mg/dL (75-99)
[2018-06-13 11:50] LABS: Glucose,Whole Blood 104 mg/dL (75-99)
--- NOTE | 2018-06-13 12:39 | P.CONS ---
History of Present Illness - Reason for Consult Consult date: 06/12/18 Pancytopenia - History of Present Illness Mr Silva is a 57 yr old WM, initially seen in consult at [facility] on 12/23/14, when admitted for SOB and anasarca. The consult was placed for splenomegaly noted on imaging during a previous admission in 12/07 for CAP, and pancytopenia. The pancytopenia had been present chronically for several years. Splenomegaly was also present on previous CT scan from 2009. 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 Repeat iron studies and SPEP were WNL. The pt actually had been on Procrit prior to his admission in 12/07, but it was apparently not effective. He was seen for his 1st OV on 02/02/15. His low WBC and plt were felt to be due to prior ETOH use and/or splenic sequestration. No intervention was recommended as they were in a safe range. His anemia was felt to be due to CKD, with other w/u being negative. He was started on Procrit [id number] U sq q wk He responded well to the same. However, he did not f/u after 03/08. He continued f/u with Nephrology and continued PENELOPE with them initially. However he stopped it for several months due to difficulty with transportation to the office every week. He resumed it in 09/10, as his Hgb had fallen into the 7 range. His renal function has worsened, with Cr 3.5 on 10/15/16. A renal biopsy was planned but cancelled as his plt were <50K ( 46 on 09/27/16, and 43 on 10/14/16) He was last seen in the office in 10/11. It was recommended he proceed with the renal biopsy with plt transfusion. He was admitted this time with weakness and hypotension. He was felt to have sepsis due to pneumonia, On admission Hgb was 9.8, WBC normal and plt in the 40 -50 K range, which is his baseline. He required aggressive management with pressors, antibiotics and ICU care. Hgb dropped into the 6-7 range, requiring transfusion. Plt dropped into the 20-30K range, and WBC in the 3-4 K range. CXR showed b/l airspace disease, R > L, with small rt pleural effusion. CT brain was negative, with CT AP showing diminished liver size, collateral vessels in the upper abdomen, and splenomegaly. ECHO showed decrease LVEF in the 30-40% range. Consult was therefore placed for further evaluation No obvious b leeding noted , per my d/w Nursing. The pt denied resumption of ETOH use. Review of Systems Constitutional: Reports fatigue, Reports poor appetite, Reports weakness Eyes: denies blurred vision, denies pain Ears: deny: decreased hearing, ear discharge, earache, tinnitus Ears, nose, mouth and throat: Denies headache, Denies sore throat Cardiovascular: Reports decreased exercise tolerance, Reports edema Respiratory: Reports dyspnea Gastrointestinal: Denies abdominal pain, Denies diarrhea, Denies nausea, Denies vomiting Musculoskeletal: Reports muscle weakness Integumentary: Denies pruritus, Denies rash Neurological: Reports weakness Psychiatric: Denies anxiety, Denies depression Endocrine: Reports fatigue Hematologic/Lymphatic: Reports as per HPI Past Medical History Past Medical History: Coronary Artery Disease (CAD), Chest Pain / Angina, COPD, CVA/TIA, Diabetes Mellitus, GERD/Reflux, Hyperlipidemia, Hypertension, Liver Disease, Osteoarthritis (OA), Renal Disease, Respiratory Disorder, Sleep Apnea/ CPAP/BIPAP Additional Past Medical History / Comment(s): Hx pancreatitis due to heavy alcohol use - no alcohol use in over 6 yrs, fatty liver, uses cpap, varicose veins bilaterally, chronic kidney disease due to diabetes on hemodialysis 3 times a week with last time being 06/01/18, , last received hemodialysis 06/01/18 , chronic low platelets and usually needs platelets prior to surgical procedures, past peritoneal dialysis catheter being removed because was not functioning properly, CVA with R sided numbess, ARDS, past respiratory arrest/ intubated and trached, past metabolic encephalopathy 2ndary to ESRD, thrombocytopenia d/t splenomegally, chronic back and cervical pain, cervical DDD with surgery/plate. History of Any Multi-Drug Resistant Organisms: None Reported Past Surgical History: Appendectomy, Back Surgery, Cholecystectomy, Heart Catheterization, Heart Catheterization With Stent Additional Past Surgical History / Comment(s): PCI with stents, tracheostomy, bladder stone removal, anterior cervical disc fusion/plate, dialysis catheter insertion 12/27/16 since removed, jugular catheter insertion, colonoscopy. Past Anesthesia/Blood Transfusion Reactions: No Reported Reaction Date of Last Stent Placement:: 2013 Smoking Status: Former smoker - Past Family History Father Family Medical History: Coronary Artery Disease (CAD), Myocardial Infarction (KS ) Additional Family Medical History / Comment(s): Father of a KS at the age of 65yrs. Mother Family Medical History: Coronary Artery Disease (CAD), Myocardial Infarction (KS ) Additional Family Medical History / Comment(s): Mother of a KS at the age of 55yrs. Brother(s) Family Medical History: Cancer Daughter(s) Family Medical History: Vascular Disorder (VSD) Medications and Allergies Home Medications Medication Instructions Recorded Confirmed Type Atorvastatin Calcium [Lipitor] 80 mg PO HS #30 tab 03/01/14 06/04/18 Rx Nitroglycerin Sl Tabs [Nitrostat] 0.4 mg SUBLINGUAL Q5M PRN 06/01/17 06/04/18 History Lisinopril [Zestril] 20 mg PO BID #60 tab 06/03/17 06/04/18 Rx ARIPiprazole [Abilify] 5 mg PO DAILY 07/06/17 06/04/18 History Calcium Acetate [PhosLo] 1,334 mg PO TID-W/MEALS #90 cap 07/10/17 06/04/18 Rx ALPRAZolam [Xanax] 0.25 mg PO BID PRN 06/04/18 06/04/18 History Amoxicillin 500 mg PO TID 06/04/18 06/04/18 History Bumetanide [BUMEX] 2 mg PO HS 06/04/18 06/04/18 History Bumetanide [BUMEX] 4 mg PO DAILY 06/04/18 06/04/18 History Diltiazem HCl [Diltiazem 24Hr ER] 180 mg PO DAILY 06/04/18 06/04/18 History HYDROcodone/APAP 10-325MG [[place] 1 tab PO Q4HR PRN 06/04/18 06/04/18 History 10-325] Insulin Glargine,Hum.rec.anlog 20 unit SQ DAILY 06/04/18 06/04/18 History [Basaglar Kwikpen U-100] Insulin NPH Hum/Reg Insulin Hm 20 unit SQ AC-TID 06/04/18 06/04/18 History [NovoLIN 70-30 100 UNIT/ML VIAL] Metoprolol Tartrate [Lopressor] 150 mg PO BID 06/04/18 06/04/18 History Morphine Sulfate ER [Ms Contin] 30 mg PO Q12HR 06/04/18 06/04/18 History Omeprazole 20 mg PO DAILY 06/04/18 06/04/18 History Pregabalin [Lyrica] 50 mg PO BID 06/04/18 06/04/18 History Allergies Allergy/AdvReac Type Severity Reaction Status Date / Time No Known Allergies Allergy Verified 06/04/18 09:30 Physical Exam Vitals: Vital Signs Temp Pulse Resp BP Pulse Ox 06/12/18 14:00 61 166/70 93 L 06/12/18 13:00 62 166/69 96 06/12/18 12:00 60 161/69 06/12/18 11:59 59 L 06/12/18 11:45 56 L 06/12/18 11:00 56 L 97 06/12/18 10:00 59 L 16 153/61 06/12/18 09:00 54 L 18 169/72 97 06/12/18 08:20 67 06/12/18 08:10 71 100 06/12/18 08:00 97.6 F 67 21 172/70 95 06/12/18 07:00 64 21 174/75 96 06/12/18 06:00 63 14 167/71 96 06/12/18 05:00 62 16 155/66 95 06/12/18 04:00 98.2 F 58 L 16 163/70 98 06/12/18 03:53 57 L 06/12/18 03:45 56 L 06/12/18 03:00 60 15 160/71 94 L 06/12/18 02:00 58 L 18 160/73 97 06/12/18 01:00 61 18 162/72 95 06/12/18 00:00 98.0 F 59 L 20 165/70 96 06/11/18 23:00 60 19 166/70 96 06/11/18 22:00 61 19 169/82 95 06/11/18 21:00 64 21 179/82 97 06/11/18 20:50 65 06/11/18 20:00 98.2 F 71 17 185/76 06/11/18 19:00 73 15 179/76 95 06/11/18 18:00 72 15 168/73 94 L 06/11/18 17:00 63 20 135/101 98 06/11/18 16:51 62 Intake and Output 06/12/18 06/12/18 06/12/18 06:59 14:59 22:59 Intake Total 141 400.0 Output Total 300 260 Balance -159 140.0 Intake: IV 21 50.0 Piperacillin-Tazobactam 3 50.0 .375 gm In Dextrose/Water 1 50ml.bag @ 12.5 mls/hr IVPB Q12HR [facility] Rx#: [id number] pressure bag 21 Oral 120 350 Output: Urine 300 260 Other: Voiding Method Indwelling Catheter Indwelling Catheter Weight 99.9 kg - Constitutional General appearance: no acute distress - EENT Eyes: EOMI, PERRLA - Neck Neck: no lymphadenopathy Thyroid: bilateral: normal size - Respiratory Respiratory: bilateral: diminished - Cardiovascular Rhythm: regular Heart sounds: normal: S1, S2 - Gastrointestinal General gastrointestinal: normal bowel sounds, soft - Integumentary Integumentary: normal - Neurologic Neurologic: CNII-XII intact, focal deficits - Musculoskeletal Musculoskeletal: generalized weakness, strength equal bilaterally - Psychiatric Psychiatric: A&O x's 3, appropriate affect Results CBC & Chem 7: 06/13/18 04:10 06/13/18 04:10 Labs: Abnormal Lab Results - Last 24 Hours (Table) 06/11/18 06/11/18 06/11/18 Range/Units 17:36 20:45 23:00 WBC (3.8-10.6) k/uL RBC (4.30-5.90) m/uL Hgb (13.0-17.5) gm/dL Hct (39.0-53.0) % Plt Count (150-450) k/uL Lymphocytes # (1.0-4.8) k/uL Sodium (137-145) mmol/L Potassium 3.3 L (3.5-5.1) mmol/L Carbon Dioxide (22-30) mmol/L BUN 69 H (9-20) mg/dL Creatinine 5.22 H (0.66-1.25) mg/dL Glucose (74-99) mg/dL POC Glucose (mg/dL) 106 H 171 H (75-99) mg/dL Calcium 7.5 L (8.4-10.2) mg/dL Phosphorus (2.5-4.5) mg/dL 06/12/18 06/12/18 06/12/18 Range/Units 04:25 04:25 07:26 WBC 3.4 L (3.8-10.6) k/uL RBC 2.52 L (4.30-5.90) m/uL Hgb 8.1 L D (13.0-17.5) gm/dL Hct 23.2 L (39.0-53.0) % Plt Count 27 L (150-450) k/uL Lymphocytes # 0.6 L (1.0-4.8) k/uL Sodium 136 L (137-145) mmol/L Potassium (3.5-5.1) mmol/L Carbon Dioxide 21 L (22-30) mmol/L BUN 73 H (9-20) mg/dL Creatinine 5.50 H (0.66-1.25) mg/dL Glucose 109 H (74-99) mg/dL POC Glucose (mg/dL) 120 H (75-99) mg/dL Calcium 7.3 L (8.4-10.2) mg/dL Phosphorus 5.8 H (2.5-4.5) mg/dL 06/12/18 Range/Units 11:20 WBC (3.8-10.6) k/uL RBC (4.30-5.90) m/uL Hgb (13.0-17.5) gm/dL Hct (39.0-53.0) % Plt Count (150-450) k/uL Lymphocytes # (1.0-4.8) k/uL Sodium (137-145) mmol/L Potassium (3.5-5.1) mmol/L Carbon Dioxide (22-30) mmol/L BUN (9-20) mg/dL Creatinine (0.66-1.25) mg/dL Glucose (74-99) mg/dL POC Glucose (mg/dL) 132 H (75-99) mg/dL Calcium (8.4-10.2) mg/dL Phosphorus (2.5-4.5) mg/dL Microbiology - Last 24 Hours (Table) 06/09/18 12:15 Blood Culture - Preliminary Blood No Growth after 72 hours Comments: ECHO report reviewed Chest x-ray: report reviewed CT scan - abdomen: report reviewed CT scan - pelvis: report reviewed Assessment and Plan (1) Pancytopenia Narrative/Plan: This is a chronic issue, with extensive w/u in the past. Worsening was noted during this admission. This is due to probable underlying ETOH related chronic marrow compromise, with additional factors including AOCKD, as well as splenic sequestration. There is likely an element of chronic liver insufficiency contributing to the thrombocytopenia. At baseline Hgb is usually 9-10 range ( with PENELOPE support), plt 40's, and WBC 3+. The drop in counts during this admission is due to added marrow stress and consumption from acute illness. Currently all counts are in a safe range, with Hgb 8.2 post transfusion, plt 27, and WBC 4+. - As there is no obvious bleeding , plt of 27 are adequate - Continue to monitor and transfuse as needed to keep Hgb > 7, and plt > 10. If there is evidence of bleeding the plt count target should be > 30-40K. - Check labs to r/o any deficiency state - Assuming the labs to be negative, it would be expected that the counts will return to baseline as his acute condition resolves Current Visit: No Status: Acute Code(s): D61.818 - OTHER PANCYTOPENIA SNOMED Code(s): 530261031 (2) Thrombocytopenia Narrative/Plan: As above The pt and his had questions re his plt counts, as he is apparently being considered for major surgery, specifically a renal transplant at [facility]. He has had a liver biopsy which was " Ok" according to him, and splenic vein thrombosis causing splenomegaly and sequestration is felt to be the main cause. He was advised that he can receive plt transfusions , for short term issues, such as surgeries or procedures ( as with his renal biopsy in the past). Generally a lt count > 50K is felt to be adequate for most surgeries , except CRIT[employer]CH[employer]ICIAN and eye. If a manager intermediate increase in plt counts is felt to be needed, then splenectomy would have to be considered. Apparently this is being discussed with him at [facility]. He was urged to discuss the efficacy of the required vaccines for splenectomized pts., in situations of chronic immunosuppression ( renal transplant), with his physicians at [facility] , as part of his decision making regarding splenectomy. Current Visit: No Status: Chronic Priority: High Code(s): D69.6 - THROMBOCYTOPENIA, UNSPECIFIED SNOMED Code(s): 240350022 Plan: Defer to the admitting service and other consultants for management of his multiple other medical problems
[2018-06-13] MEDS: PIPERACILLIN-TAZOBACTAM 3.375 GM in DEXTROSE/WATER 1 50ML.BAG IVPB SCH ×2 (12:47→21:42)
[2018-06-13] MEDS ORDERED: LORazepam 1 MG TAB PO STA (12:55)
[2018-06-13] MEDS: PREGABALIN 50 MG CAP PO SCH ×2 (15:59→22:54)
[2018-06-13 17:53] LABS: Glucose,Whole Blood 151 mg/dL (75-99)
--- NOTE | 2018-06-13 18:24 | P.PN ---
Subjective Progress Note Date: 06/13/18 Principal diagnosis: Pneumonia Patient is complaining of burning sensation in bilateral feet and attributed it to holding Lyrica Objective - Vital Signs Vital signs: Vital Signs Temp 98.2 F 06/13/18 08:00 Pulse 66 06/13/18 16:46 Resp 20 06/13/18 10:00 BP 165/71 06/13/18 10:00 Pulse Ox 96 06/13/18 10:00 Intake & Output 06/12/18 06/13/18 06/13/18 18:59 06:59 18:59 Intake Total 700.0 490 Output Total 280 Balance 420.0 490 Weight 99.9 kg 97.1 kg Intake: IV 50.0 50 Piperacillin-Tazobactam 3 50.0 50 .375 gm In Dextrose/Water 1 50ml.bag @ 12.5 mls/hr IVPB Q12HR [facility] Rx#: [id number] Oral 650 440 Output: Urine 280 Other: Voiding Method Indwelling Catheter # Voids 0 0 # Bowel Movements 1 ABP, PAP, CO, CI - Last Documented Arterial Blood Pressure 188/51 - Exam Constitutional: Well developed, well nourished, no acute distress, non-toxic appearance Eyes: PERRL, conjunctiva normal HENT: Atraumatic, external ears normal, nose normal, oropharynx moist, no pharyngeal exudates. Neck- normal range of motion, no tenderness, supple Respiratory: No respiratory distress, normal breath sounds, no rales, no wheezing Cardiovascular: Normal rate, normal rhythm, no murmurs, no gallops, no rubs GI: Soft, nondistended, normal bowel sounds, nontender, no organomegaly, no mass, no rebound, no guarding : No costovertebral angle tenderness Musculoskeletal: No edema, no tenderness, no deformities. Back- no tenderness Integument: Well hydrated, no rash Lymphatic: No lymphadenopathy noted Neurologic: Alert & oriented x 3, CN 2-12 normal, normal motor function, normal sensory function, no focal deficits noted Psychiatric: Speech and behavior appropriate - Labs CBC & Chem 7: 06/13/18 04:10 06/13/18 04:10 Labs: Abnormal Lab Results - Last 24 Hours (Table) 06/13/18 06/13/18 06/13/18 Range/Units 04:10 04:10 11:11 RBC 2.59 L (4.30-5.90) m/uL Hgb 8.2 L (13.0-17.5) gm/dL Hct 23.3 L (39.0-53.0) % RDW 15.6 H (11.5-15.5) % Plt Count 27 L (150-450) k/uL Lymphocytes # 0.5 L (1.0-4.8) k/uL Sodium 134 L (137-145) mmol/L Carbon Dioxide 21 L (22-30) mmol/L BUN 53 H (9-20) mg/dL Creatinine 4.45 H (0.66-1.25) mg/dL POC Glucose (mg/dL) 56 L (75-99) mg/dL Calcium 7.9 L (8.4-10.2) mg/dL 06/13/18 06/13/18 Range/Units 11:38 17:29 RBC (4.30-5.90) m/uL Hgb (13.0-17.5) gm/dL Hct (39.0-53.0) % RDW (11.5-15.5) % Plt Count (150-450) k/uL Lymphocytes # (1.0-4.8) k/uL Sodium (137-145) mmol/L Carbon Dioxide (22-30) mmol/L BUN (9-20) mg/dL Creatinine (0.66-1.25) mg/dL POC Glucose (mg/dL) 104 H 151 H (75-99) mg/dL Calcium (8.4-10.2) mg/dL Microbiology - Last 24 Hours (Table) 06/09/18 12:15 Blood Culture - Preliminary Blood No Growth after 96 hours Assessment and Plan Assessment: 1. Acute respiratory failure seems to be improving. 2. Status post cardiac arrest secondary to hyperkalemia. 3. Diabetes mellitus with peripheral neuropathy. 4. Pneumonia. 5. Fluid overloaded status. 6. Chronic kidney disease status post ultrafiltration. 7. Systolic congestive heart failure with ejection fraction 30%. 8. Severe debility and deconditioning. 9. Anemia of chronic disease. 10. Moderate protein calorie malnutrition. We will continue current management follow up with nephrology medical recommendation, I would like to start patients on medical 50 mg twice daily continue with insulin sliding scale goal for glucose less than 180 during this hospital stay would optimize risk factors monitor blood pressure closely and repeat blood work in the morning. Patient seems to be improving overall and we will consider transfer to general medical floor once but the available. Plan discussed with patient and nursing staff at the bedside
[2018-06-13] MEDS: MELATONIN 3 MG TABLET PO SCH (21:41)
[2018-06-13 22:12] LABS: Glucose,Whole Blood 153 mg/dL (75-99)
[2018-06-13] MEDS: HYDROCORTISONE 10 MG TAB PO SCH (22:54)
--- NOTE | 2018-06-13 23:53 | P.PN ---
Subjective Progress Note Date: 06/13/18 57 year old male who presentsTo the emergency center with complaints of altered mental status. He has a very protracted past medical history regarding his underlying coronary artery disease, status post NM and PCI, diabetes mellitus type 2 with many complications that include his end-stage renal disease on hemodialysis locally. The patient has been admitted within the last year that point in time those concerns to sepsis but no specific infection was found. The patient is now presenting to the emergency center with some altered mental status feeling poorly and having developed a fever. The patient at presentation was somewhat of a poor historian he is now much more awake alert and interactive. He does relate that he feels poorly he has fatigue and malaise. He did well with dialysis today and this is allowed some further improvement of his shortness of breath that was also occurring. Is noted he had fever at admission but was not having sieving and chills or rigors but again was having some altered mental status. 06/13/2018 patient has had significant improvement since last evaluation. Is sitting up in the chair and has been able to ambulate in the room without difficulty. He is now awake alert oriented to person and place discussing his status with his . Objective - Vital Signs Vital signs: Vital Signs Temp 98.7 F 06/13/18 16:00 Pulse 70 06/13/18 20:14 Resp 19 06/13/18 16:00 BP 184/92 06/13/18 16:00 Pulse Ox 92 L 06/13/18 18:00 Intake & Output 06/13/18 06/13/18 06/14/18 06:59 18:59 06:59 Intake Total 490 Balance 490 Weight 97.1 kg Intake: IV 50 Piperacillin-Tazobactam 3 50 .375 gm In Dextrose/Water 1 50ml.bag @ 12.5 mls/hr IVPB Q12HR NATHAN Rx#: [id number] Oral 440 Other: # Voids 0 0 # Bowel Movements 1 ABP, PAP, CO, CI - Last Documented Arterial Blood Pressure 188/51 - Exam 57-year-old male presents to hospital with altered mental status feeling much better today especially after his dialysis. HEENT: Anicteric conjunctiva are pink and moist nasal mucosa grossly intact without significant lesions, there is no thrush. Neck: The neck is supple without significant lymphadenopathy or thyromegaly. Lungs: Symmetrical air entry is noted, scattered expiratory wheezes and few bibasilar crackles are heard no alon bronchial sounds no dullness or egophony Heart: Regular rate and rhythm with an audible S1-S2, no S3 loud S4 There is no significant murmur click or rub, PMI was nondisplaced. Abdomen: Positive bowel sounds soft and nontender without palpable masses or organomegaly. There was no guarding or rebound. Extremities: The upper extremities have excellent pulses they are symmetric, no significant petechiae or telangiectasia. No splinter hemorrhages were noted. Lower extremities have evidence of the chronic bilateral lower extremity edema in the chronic hemosiderin staining the bilateral legs. Patient had a biopsy to the right medial leg and has a chronic nonhealing ulceration at that site. It is not tender there is no drainage. Neuro: Awake alert oriented to person place and time. There are no acute new gross focal sensory motor deficits. - Labs CBC & Chem 7: 06/13/18 04:10 06/13/18 04:10 Labs: Abnormal Lab Results - Last 24 Hours (Table) 06/13/18 06/13/18 06/13/18 Range/Units 04:10 04:10 11:11 RBC 2.59 L (4.30-5.90) m/uL Hgb 8.2 L (13.0-17.5) gm/dL Hct 23.3 L (39.0-53.0) % RDW 15.6 H (11.5-15.5) % Plt Count 27 L (150-450) k/uL Lymphocytes # 0.5 L (1.0-4.8) k/uL Sodium 134 L (137-145) mmol/L Carbon Dioxide 21 L (22-30) mmol/L BUN 53 H (9-20) mg/dL Creatinine 4.45 H (0.66-1.25) mg/dL POC Glucose (mg/dL) 56 L (75-99) mg/dL Calcium 7.9 L (8.4-10.2) mg/dL 06/13/18 06/13/18 06/13/18 Range/Units 11:38 17:29 22:00 RBC (4.30-5.90) m/uL Hgb (13.0-17.5) gm/dL Hct (39.0-53.0) % RDW (11.5-15.5) % Plt Count (150-450) k/uL Lymphocytes # (1.0-4.8) k/uL Sodium (137-145) mmol/L Carbon Dioxide (22-30) mmol/L BUN (9-20) mg/dL Creatinine (0.66-1.25) mg/dL POC Glucose (mg/dL) 104 H 151 H 153 H (75-99) mg/dL Calcium (8.4-10.2) mg/dL Microbiology - Last 24 Hours (Table) 06/09/18 12:15 Blood Culture - Preliminary Blood No Growth after 96 hours Laboratory Results WBC 4.6 k/uL (3.8-10.6) 06/13/18 04:10 RBC 2.59 m/uL (4.30-5.90) L 06/13/18 04:10 Hgb 8.2 gm/dL (13.0-17.5) L 06/13/18 04:10 Hct 23.3 % (39.0-53.0) L 06/13/18 04:10 MCV 90.3 fL (80.0-100.0) 06/13/18 04:10 MCH 31.7 pg (25.0-35.0) 06/13/18 04:10 MCHC 35.1 g/dL (31.0-37.0) 06/13/18 04:10 RDW 15.6 % (11.5-15.5) H 06/13/18 04:10 Plt Count 27 k/uL (150-450) L 06/13/18 04:10 Neutrophils % 80 % 06/13/18 04:10 Lymphocytes % 11 % 06/13/18 04:10 Monocytes % 5 % 06/13/18 04:10 Eosinophils % 2 % 06/13/18 04:10 Basophils % 0 % 06/13/18 04:10 Neutrophils # 3.7 k/uL (1.3-7.7) 06/13/18 04:10 Lymphocytes # 0.5 k/uL (1.0-4.8) L 06/13/18 04:10 Monocytes # 0.2 k/uL (0-1.0) 06/13/18 04:10 Eosinophils # 0.1 k/uL (0-0.7) 06/13/18 04:10 Basophils # 0.0 k/uL (0-0.2) 06/13/18 04:10 Manual Slide Review Performed 06/09/18 05:00 Poikilocytosis Slight 06/09/18 Unknown Basophilic Stippling Present 06/09/18 05:00 Anisocytosis Slight 06/10/18 09:48 Retic Count 2.1 % (0.5-2.0) H 06/05/18 06:11 PT 10.8 sec (9.0-12.0) 06/04/18 01:10 INR 1.1 (<1.2) 06/04/18 01:10 APTT 25.5 sec (22.0-30.0) 06/09/18 05:00 Sample Site RUDDY 06/10/18 05:48 ABG pH 7.39 (7.35-7.45) 06/10/18 05:48 ABG pCO2 40 mmHg (35-45) 06/10/18 05:48 ABG pO2 104 mmHg (83-108) 06/10/18 05:48 ABG HCO3 25 mmol/L (21-25) 06/10/18 05:48 ABG Total CO2 26 mmol/L (19-24) H 06/10/18 05:48 ABG O2 Saturation 100.0 % (94-97) H 06/10/18 05:48 ABG Base Excess -0.4 mmol/L 06/10/18 05:48 Jesus Manuel Test Yes 06/10/18 05:48 FiO2 40 % 06/10/18 05:48 Sodium 134 mmol/L (137-145) L 06/13/18 04:10 Potassium 3.8 mmol/L (3.5-5.1) 06/13/18 04:10 Chloride 104 mmol/L (98-107) 06/13/18 04:10 Carbon Dioxide 21 mmol/L (22-30) L 06/13/18 04:10 Anion Gap 9 mmol/L 06/13/18 04:10 BUN 53 mg/dL (9-20) H 06/13/18 04:10 Creatinine 4.45 mg/dL (0.66-1.25) H 06/13/18 04:10 Est GFR (CKD-EPI)AfAm 16 (>60 ml/min/1.73 sqM) 06/13/18 04:10 Est GFR (CKD-EPI)NonAf 14 (>60 ml/min/1.73 sqM) 06/13/18 04:10 Glucose 98 mg/dL (74-99) 06/13/18 04:10 POC Glucose (mg/dL) 153 mg/dL (75-99) H 06/13/18 22:00 POC Glu General Superintendent John Sánchez 06/13/18 22:[address] Glu mg/dL 91 06/04/18 09:00 Hemoglobin A1c 4.8 % (4.0-6.0) 06/04/18 09:00 Plasma Lactic Acid [place] 0.6 mmol/L (0.7-2.0) L 06/08/18 00:12 Calcium 7.9 mg/dL (8.4-10.2) L 06/13/18 04:10 Phosphorus 3.6 mg/dL (2.5-4.5) 06/13/18 04:10 Magnesium 2.0 mg/dL (1.6-2.3) 06/13/18 04:10 Iron 39 ug/dL (65-175) L 06/05/18 06:11 TIBC 174 ug/dL (228-460) L 06/05/18 06:11 Iron Saturation 22.41 (15.00-50.00) 06/05/18 06:11 Ferritin 648.9 ng/mL (22.0-322.0) H 06/05/18 06:11 Total Bilirubin 1.2 mg/dL (0.2-1.3) 06/08/18 05:00 AST 26 U/L (17-59) 06/08/18 05:00 ALT 28 U/L (21-72) 06/08/18 05:00 Alkaline Phosphatase 80 U/L (38-126) 06/08/18 05:00 Ammonia 10 umol/L (<30) 06/08/18 00:12 Total Creatine Kinase 70 U/L (55-170) 06/04/18 15:03 CK-MB (CK-2) 5.4 ng/mL (0.0-2.4) H 06/04/18 15:03 CK-MB (CK-2) Rel Index 7.7 10/11/18 15:03 Troponin I 3.810 ng/mL (0.000-0.034) H* 06/04/18 20:26 NT-Pro-B Natriuret Pep 47330 pg/mL 06/04/18 09:00 Total Protein 6.2 g/dL (6.3-8.2) L 06/08/18 05:00 Albumin 3.4 g/dL (3.5-5.0) L 06/08/18 05:00 Procalcitonin 0.62 ng/mL (0.02-0.09) H 06/04/18 09:00 TSH 1.310 mIU/L (0.465-4.680) 06/04/18 09:00 Cortisol 14 ug/dL 06/09/18 05:00 Urine Color Yellow 06/08/18 05:18 Urine Appearance Clear (Clear) 06/08/18 05:18 Urine pH 6.0 (5.0-8.0) 06/08/18 05:18 Ur Specific [place] 1.010 (1.001-1.035) 06/08/18 05:18 Urine Protein 2+ (Negative) H 06/08/18 05:18 Urine Glucose (UA) Negative (Negative) 06/08/18 05:18 Urine Ketones Negative (Negative) 06/08/18 05:18 Urine Blood Negative (Negative) 06/08/18 05:18 Urine Nitrite Negative (Negative) 06/08/18 05:18 Urine Bilirubin Negative (Negative) 06/08/18 05:18 Urine Urobilinogen <2.0 mg/dL (<2.0) 06/08/18 05:18 Ur Leukocyte Esterase Negative (Negative) 06/08/18 05:18 Urine RBC 4 /hpf (0-5) 06/04/18 02:00 Urine WBC 1 /hpf (0-5) 06/08/18 05:18 Ur Squamous Epith Cells <1 /hpf (0-4) 06/08/18 05:18 Urine Mucus Rare /hpf (None) H 06/08/18 05:18 Stool Occult Blood Negative (Negative) 06/08/18 19:00 Random Vancomycin 19.5 ug/mL 06/11/18 04:30 C. difficile (EIA) Intrp Negative (Negative) 06/11/18 02:35 Hep Bs Antigen Non-Reactive (Non-Reactive) 06/05/18 06:11 Hep Bs Antibody Non-Reactive (Non-Reactive) 06/05/18 06:11 Hep Bs Antibody, Quant 3.5 mIU/mL 06/05/18 06:11 Influenza Type A RNA Not Detected (Not Detectd) 06/04/18 10:15 Influenza Type B (PCR) Not Detected (Not Detectd) 06/04/18 10:15 Urine Legionella Ag Not detected (Not detected) 06/05/18 09:50 Mycoplasma pneumon IgG 0.63 INDEX (<=0.90) 06/04/18 09:00 Mycoplasma pneumon IgM 0.55 INDEX (<=0.90) 06/04/18 09:00 Blood Type A Positive 06/09/18 08:42 Blood Type Recheck No 06/09/18 08:42 Antibody Screen NEGATIVE 06/09/18 08:42 Crossmatch See Detail 06/09/18 08:42 Spec Expiration Date 06/12/2018234106/09/18 08:42 Microbiology 06/09/18 12:15 Blood Blood Culture - Preliminary No Growth after 96 hours 06/09/18 04:34 Sputum Gram Stain - Final 06/09/18 04:34 Sputum Sputum Culture - Final Ofelia albicans 06/09/18 12:15 Urine,Catheterized Urine Culture - Final 06/04/18 01:10 Blood Blood Culture - Final No Growth after 144 hours 06/08/18 05:18 Urine,Catheterized Urine Culture - Final 06/04/18 02:00 Urine,Voided Urine Culture - Final Assessment and Plan (1) Altered mental status Narrative/Plan: 57-year-old male presents as with altered mental status that feeling well for a few days. If presentation of the temperature of 103.1 he was admitted with concerns to sepsis. The patient has evidence of underlying lung disease and there was concerns to volume overload relating to his missed hemodialysis session. Since hemodialysis he is doing considerably better. His fevers have resolved. His mental status is near his baseline. His symptoms generalized weakness but there is no acute neurological change. He does have a cardiomyopathy with an ejection fraction of only 35%. His long-standing history of prior alcoholism with alcoholic liver disease with chronic thrombocytopenia. The patient has responded well to current course of antibiotic therapy includes vancomycin, Levaquin and Zosyn with concerns to underlying lung disease. If this time cultures are negative the fever has responded. The patient has been evaluated by pulmonary critical care and he does not appear to be evidence of pneumonia at this time. There is no evidence of any urinary infection. Blood cultures are negative. The patient does receive hemodialysis and there is a potential that there could have been difficulty related to his lack of hemodialysis treatment. Cultures shall be monitored. If remain negative would plan on a completion of 7 days of vancomycin which can be completed through dialysis with concerns to a transient infection related to that process. 06/13/2018 patient has had remarkable improvement since last evaluation. Cultures remain negative. He has completed his course of antibiotic therapy. At this time does not appear to have active infection. Most recent chest x-ray shows evidence some fluid overload. Patient does not appear to have pneumonia. Is being followed by pulmonary critical care. Likely to move out of the intensive care unit today. Current Visit: Yes Status: Acute Code(s): R41.82 - ALTERED MENTAL STATUS, UNSPECIFIED SNOMED Code(s): 792212446 (2) Fever Current Visit: Yes Status: Acute Code(s): R50.9 - FEVER, UNSPECIFIED SNOMED Code(s): 539858584
[2018-06-14] MEDS: MORPHINE SULFATE 2 MG/ML SYRINGE IVP PRN ×2 (04:45→21:23)
[2018-06-14 06:57] LABS: Glucose,Whole Blood 140 mg/dL (75-99)
[2018-06-14] MEDS: INSULIN ASPART 100 UNIT/ML 1 ML 10 ML VIAL SQ SCH ×7 (07:11→21:18)
--- NOTE | 2018-06-14 08:02 | P.PN ---
Subjective Progress Note Date: 06/14/18 Principal diagnosis: SNTEMI This is a pleasant 57-year-old gentleman with history of end-stage renal disease on hemodialysis, hypertension, insulin requiring diabetes, CAD with prior stenting. He follows with a business development recruiter out of [facility]. He presented to the hospital primary complaining of not feeling well overall mild confusion and fever. We were asked to the patient in consultation due to elevated troponin with initial troponin of 0.651 second troponin 2.6 and third troponin 3.5. Patient was initially febrile. Hemoglobin is improved at 9.0 and platelet count is 84 heparin; and anti-platelets have been avoided. Started the patient on oral nitrates. Echocardiogram with Doppler came back to show an ejection fraction of 30-35% with anterior septal, inferior and septal hypokinesis. Few days ago, rapid response team was called for this patient due to respiratory distress, acute hypoxemic and hypercapnic respiratory failure. Patient was bradycardic. CODE BLUE was called. Patient was emergently intubated. Upon examination, patient remains sedated on propofol. On follow-up with the patient today, June [id number], he is doing better. He was extubated the day before yesterday. He remained hemodynamically stable. The blood pressure continues to be slightly uncontrolled and I am going to add hydralazine at 10 mg by mouth 3 times a day to the current medical regimen. Continue following up with the patient. Objective - Vital Signs Vital signs: Vital Signs Temp 98 F 06/14/18 04:00 Pulse 57 L 06/14/18 06:00 Resp 17 06/14/18 06:00 BP 161/69 06/14/18 04:00 Pulse Ox 91 L 06/14/18 06:00 Intake & Output 06/13/18 06/14/18 06/14/18 18:59 06:59 18:59 Intake Total 330 Output Total 0 Balance 330 Intake: IV 230 Piperacillin-Tazobactam 3 50 .375 gm In Dextrose/Water 1 50ml.bag @ 12.5 mls/hr IVPB Q12HR NATHAN Rx#: [id number] Sodium Chloride 0.9% 1, 180 000 ml @ 20 mls/hr IV . Q24H NATHAN Rx#:[id number] Oral 100 Output: Urine 0 Other: Voiding Method Indwelling Catheter # Voids 0 50 ABP, PAP, CO, CI - Last Documented Arterial Blood Pressure 188/51 - Constitutional General appearance: Present: no acute distress - Respiratory Respiratory: bilateral: CTA - Cardiovascular Rhythm: regular Heart sounds: normal: S1, S2 - Labs CBC & Chem 7: 06/13/18 04:10 06/13/18 04:10 Labs: Abnormal Lab Results - Last 24 Hours (Table) 06/13/18 06/13/18 06/13/18 Range/Units 11:11 11:38 17:29 POC Glucose (mg/dL) 56 L 104 H 151 H (75-99) mg/dL 06/13/18 06/14/18 Range/Units 22:00 06:45 POC Glucose (mg/dL) 153 H 140 H (75-99) mg/dL Microbiology - Last 24 Hours (Table) 06/09/18 12:15 Blood Culture - Preliminary Blood No Growth after 96 hours Assessment and Plan Assessment: Assessment Acute non-ST elevation myocardial infarction Coronary artery disease and prior stenting End stage renal disease on hemodialysis Acute respiratory failure which has resolved Anemia Thrombocytopenia Uncontrolled hypertension Plan Continue the current dose of lisinopril Add hydralazine to the current medical regimen Monitor the hemoglobin and platelet Hold any kind of antiplatelet at this point Follow-up with the patient
[2018-06-14 08:57] LABS: Glucose,Whole Blood 132 mg/dL (75-99)
[2018-06-14] MEDS ORDERED: hydrALAZINE HCL 10 MG TAB PO SCH (09:00)
[2018-06-14] MEDS: IPRATROPIUM-ALBUTEROL 3 ML NEB INHALATION SCH ×4 (09:04→20:45)
--- NOTE | 2018-06-14 09:09 | P.PN ---
Subjective Progress Note Date: 06/14/18 Principal diagnosis: Acute hypoxic and hypercapnic respiratory failure secondary to underlying pneumonia This is a 57-year-old white male with history of multiple medical problems including chronic renal failure, on hemodialysis. Patient is also known to history of coronary artery disease, previous PCI, stenting of RCA 3 stents total in 2013. History of hypertension, cardiovascular disease, type 2 diabetes , diabetic neuropathy, history of alcohol abuse with associated thrombocytopenia and splenomegaly, patient had previous history of metabolic encephalopathy treated in June of 2017, history of diastolic congestive heart failure, admitted this time with mostly symptoms of generalized weakness, confusion, and change in mental status. Patient has also been complaining of some shortness of breath, chest x-ray was suggestive of interstitial edema, his BNP level was elevated, troponin was also elevated, received Lasix in the ER, and there was a significant improvement in his overall pulmonary status patient apparently diuresed significantly although he doesn't usually make much urine since he is a renal failure patient. By the time I saw the patient on consultation, he had no active pulmonary symptoms whatsoever. Patient was relatively asymptomatic, no cough no wheezing no shortness of breath. However apparently when he was admitted there was a concern that the patient may have sepsis because his lactic acid was 1.7. And he was placed empirically on antibiotics for presumptive pneumonia, although the findings on the chest x-ray and the clinical findings are mostly findings of interstitial edema. Again I strongly doubt pneumonia. During my evaluation, the patient was basically asymptomatic. He had no chest pain no cough no wheezing no fever no chills no hemoptysis and no chest pain. Troponin was noted to be a bit higher compared to the morning troponin. His BNP level was over 17,600. Reevaluated today on 06/05/2018, patient is presently on dialysis, he had 1 dialysis done last night, he continues to feel much better. Denies any shortness of breath, no cough, no wheezing, no chest pain. However the patient spiked a temp last night, he had a temp of 101.1 and his temp now is 99.7. Patient is on room air, O2 saturations 97%, blood pressure is normal 132/79. Heart rate is 76. All labs were reviewed, he does not have leukocytosis, basic metabolic profile is normal BUN is 44 creatinine is 4.78. Reviewed the chest x- ray again, clearly consistent with interstitial edema. Remind me patient had a significantly elevated BNP level on admission. Reevaluated today on 06/06/2018, had his dialysis yesterday, and 2 L of fluids were removed. Patient continues to feel better clinically, no shortness of breath no cough no wheezing. No fever no chills, no chest pain, no hemoptysis. Chest x-ray today showed definite improvement compared to previous x-rays, and clinically the patient is showing definite improvement in his room air saturation is 97%. Hemodynamically remained stable all along since admission. Patient was reevaluated today on 06/07/2018, feels great, basically asymptomatic. Denies any shortness of breath, no cough, no wheezing, no fever, no chills, no hemoptysis, no nausea no vomiting no abdominal pain. His last hemodialysis was on Friday. I believe he would have another dialysis tomorrow. Pulmonary-cast the patient is doing great. Labs were reviewed WBC count is 4.5 hemoglobin is 7.9. His BUN is 54 creatinine is 5.98. Potassium is a bit elevated at 5.6. Patient was seen by cardiology today, and advised to continue current medical regimen, advised to continue beta blockers, patient did have acute non-ST elevation myocardial infarction on admission. On 06/08/2018 patient seen in the intensive care unit. Sometime at midnight on 06/08/2018 there was a rapid response team called for a concern of respiratory distress, and acute hypoxemic and hypercapnic respiratory failure. Was emergently intubated, and this morning patient is seen intubated, sedated, on mechanical ventilator. Current IV fluids are 0.9 normal saline at a rate of 25 ML per hour, levofed at 20 mics per minute, Diprivan and is at 25 mcg/kg/min. patient had emergent hemodialysis last night, would removal of 300 mL of fluid. And was not given any IV boluses in view of his acute on chronic renal failure. This morning blood work has been reviewed, there has been acute elevation of white blood count, to 18.4, hemoglobin is 9.5, electrolytes were within normal limits, there has been improvement in his renal profile, BUN was down to 33, creatinine is down to 3.64, patient is making small amounts of urine , in the range of 5-10 ML per hour. Antibiotic coverage includes Zosyn, Levaquin and vancomycin. Blood and urine cultures were collected, and showed no growth. he has some thick yellow sputum being suctioned from the ET tube. Today's chest x-ray has been reviewed by Dr. Otoole, and showed left lower lobe infiltrate. This morning's blood gas has been reviewed, and showed pO2 of 3:15 , pCO2 57, pH of 7.30, this was done on settings of assist control mode with a rate of 16, tidal volume of 360, FiO2 of 100%, and PEEP of 5. FiO2 was dropped down to 50%. We will make further adjustments to the vent settings we will increase the rate to 24, tidal volume decreased to 450, FiO2 50% and PEEP of 5. Patient's spouse is at the bedside, her rash was to continue with full code, and supportive treatment. On 06/09/2018 patient seen again in the intensive care unit. He remains intubated, sedated, on mechanical ventilator, current vent settings assist- control mode with a rate of 24, tidal volume 450, FiO2 50%, and PEEP of 5. This morning blood gases showed pO2 of 117, pCO2 42, pH of 7.42, FiO2 was dropped to 40% based on those blood gases. This morning's labs show WBC of 6.2 , hemoglobin is down to 6.7, from 9.0 yesterday, platelet count is down to 44, electrolyte panel is within normal limits, BUN 24, creatinine is 5.48. Random serum cortisol level was 14. Yesterday we gave the patient additional 2 L IV bolus of lactated Ringer's, and levo fed dose is down to 9 mics per minute this morning. Maintenance IV fluids 0.9 at 20 ML per hour. To prevent is 50 mics per kilo per minute. Blood cultures remain negative thus far, her antibiotic coverage includes Zosyn, Levaquin, and vancomycin. No signs of GI bleeding, occult blood stool was negative. Today's chest x-ray has been reviewed, and shows improvement in the appearance of bilateral airspace disease and pulmonary edema. Patient is producing urine, in the order 45-60 ML per hour. Patient does have intermittent low-grade fevers, with a T-max of 100.2F. Lung sounds are clear to auscultation. Dietary has been consulted for to proceeding recommendations. On 06/10/2018 patient seen in follow-up. He remains sedated, intubated on mechanical ventilation, current vent settings are assist-control mode with a rate of 24 breaths per minute, tidal volume of 450, FiO2 is 40% and PEEP of 5. Blood gases were done on those settings, and showed pO2 of 104, pCO2 40, and pH of 7.39. Today's chest x-ray has been reviewed by Dr. Otoole, and shows mild CHF. Yesterday patient was given a dose of IV Lasix, and transfused with 1 unit of packed red blood cells, today's CBC is pending, BMP shows sodium is 139 , potassium is 4.4, chloride is 104, CO2 is 24, BUN of 59, and creatinine of 6.44. Cultures remain negative thus far. Patient is afebrile, maintenance IV fluids include 0.9 normal saline at a rate of 20 ML per hour, levo fed and has been weaned off, propofol is currently at 50 mics per kilo per minute, patient has 2 feedings infusing Nepro at 43 ML per hour, with a goal of 43. Tolerating it well. Lung sounds are clear to auscultation. No acute issues overnight. Patient continues on antibiotic coverage includes Zosyn and Levaquin and vancomycin. She is producing urine, 30-35 ML per hour. We will give the patient is a sedation holiday today, assess readiness for spontaneous breathing trial. On 06/11/2018 patient seen in follow-up in the intensive care unit. He was extubated yesterday on 06/10/2018 and he is tolerating extubation quite well, currently not on any supplemental oxygen, room air pulse ox is 94%, he is afebrile, hemodynamically stable. He is awake and alert, oriented 3, his up in bed, denies any difficulty breathing, denies any chest pain. He did have another hemodialysis treatment yesterday with removal of 1.5 L of fluid. Patient was transfused with a unit of blood yesterday for hemoglobin of 6.7, and this am hemoglobin is 6.6, with no obvious signs of bleeding. Patient is being transfused with another unit of packed red blood cells. This is the patient's third unit of blood this admission. Today's lab work was reviewed, shows WBC of 3.1, hemoglobin as mentioned above, serum sodium is 135, no history of Dr. figueroa were within normal limits, renal profile is improving, B1 is 44, creatinine is 4.08. Today's chest x-ray has been reviewed and shows changes consistent with mild CHF, diffuse interstitial and patchy airspace infiltrates. Vital signs remain stable. Chest on negative with exception of Ofelia in the sputum. He notes IV fluid is 0.9 normal saline at a rate of 20 ML per hour, patient is tolerating oral diet. Antibiotic coverage includes Zosyn, vancomycin and Levaquin. On 06/14/2018 patient seen in follow-up in the intensive care unit. He has been awaiting a bed for selective care unit. He remains stable, awake and alert , sitting up in a chair, on room air, his pulse ox is 91-94%, denies any distress, no specific complaints, no shortness of breath or chest pain, no IV fluids, IV fluids have been hep-locked. He is in sinus mechanism with a controlled rate, he is afebrile, hemodynamically stable. Sputum culture was positive for Ofelia only which could be oral contamination, other cultures remain negative, patient denies any fever or chills. No new chest x-rays today , no new labs. His antibiotics have been streamlined to Zosyn. We will switch her to oral antibiotics starting today. Increase activity, encourage deep breathing and coughing. Objective - Vital Signs Vital signs: Vital Signs Temp 98 F 06/14/18 04:00 Pulse 57 L 06/14/18 06:00 Resp 17 06/14/18 06:00 BP 161/69 06/14/18 04:00 Pulse Ox 91 L 06/14/18 06:00 Intake & Output 06/13/18 06/14/18 06/14/18 18:59 06:59 18:59 Intake Total 330 Output Total 0 Balance 330 Intake: IV 230 Piperacillin-Tazobactam 3 50 .375 gm In Dextrose/Water 1 50ml.bag @ 12.5 mls/hr IVPB Q12HR NATHAN Rx#: [id number] Sodium Chloride 0.9% 1, 180 000 ml @ 20 mls/hr IV . Q24H NATHAN Rx#:[id number] Oral 100 Output: Urine 0 Other: Voiding Method Indwelling Catheter # Voids 0 50 ABP, PAP, CO, CI - Last Documented Arterial Blood Pressure 188/51 - Exam GENERAL EXAM: Awake and alert, pleasant 57-year-old white male in no apparent distress. HEAD: Normocephalic/atraumatic. EYES: Normal reaction of pupils, equal size. Conjunctiva pink, sclera white. NOSE: Clear with pink turbinates. THROAT: No erythema or exudates. NECK: No masses, no JVD, no thyroid enlargement, no adenopathy. CHEST: No chest wall deformity. Symmetrical expansion. LUNGS: Equal air entry with no crackles, wheeze, rhonchi or dullness. CVS: Regular rate and rhythm, normal S1 and S2, no gallops, no murmurs, no rubs ABDOMEN: Soft, nontender. No hepatosplenomegaly, normal bowel sounds, no guarding or rigidity. EXTREMITIES: No clubbing, no edema, no cyanosis, 2+ pulses and upper and lower extremities. MUSCULOSKELETAL: Muscle strength and tone normal. SPINE: No scoliosis or deformity SKIN: No rashes CENTRAL NERVOUS SYSTEM: Intubated, and sedated. No focal deficits, tone is normal in all 4 extremities. PSYCHIATRIC: Unable to assess, patient is intubated. - Labs CBC & Chem 7: 06/13/18 04:10 06/13/18 04:10 Labs: Abnormal Lab Results - Last 24 Hours (Table) 06/13/18 06/13/18 06/13/18 Range/Units 11:11 11:38 17:29 POC Glucose (mg/dL) 56 L 104 H 151 H (75-99) mg/dL 06/13/18 06/14/18 06/14/18 Range/Units 22:00 06:45 07:44 POC Glucose (mg/dL) 153 H 140 H 132 H (75-99) mg/dL Microbiology - Last 24 Hours (Table) 06/09/18 12:15 Blood Culture - Preliminary Blood No Growth after 96 hours Assessment and Plan Plan: Assessment: 1 acute pulmonary edema, most likely secondary to fluid overload secondary to chronic renal failure, and secondary to systolic dysfunction, his ejection fraction on the echocardiogram showed 30%. Significant anteroseptal hypokinesis noted. Patient has required intubation and mechanical ventilation, and was successfully extubated on 06/10/2018, and tolerating extubation well. 2 possibility of pneumonia is not entirely ruled out, especially with elevated pro calcitonin level hence would recommend we continue antibiotics. 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 8 end-stage renal disease, on hemodialysis. 9 type 2 diabetes 10 hyperkalemia secondary to renal failure, patient apparently has been noncompliant with dialysis. Nephrology is following. 11 acute non-ST elevation myocardial infarction 12 Secondary adrenal insufficiency Plan: Continue current treatment, deep breathing and coughing, increase ambulation. Switch the Zosyn to oral Augmentin, continue nebulized bronchodilators, patient is doing well. Repeat blood work in the morning. I performed a history & physical examination of the patient and discussed their management with my nurse practitioner, Yumiko Matta. I reviewed the nurse practitioner's note and agree with the documented findings and plan of care. Lung sounds are positive for clear sounds. The findings and the impression was discussed with the patient. I attest to the documentation by the nurse practitioner. Time with Patient: Less than 30
[2018-06-14] MEDS: PANTOPRAZOLE 40 MG TABLET PO SCH (09:20)
[2018-06-14] MEDS: LISINOPRIL 20 MG TAB PO SCH (09:20)
[2018-06-14] MEDS: METOPROLOL TARTRATE 50 MG TAB PO SCH ×2 (09:20→21:19)
[2018-06-14] MEDS: NYSTATIN 100,000 UNIT/ML SUSP 500,000 UNIT/5 ML CUP PO SCH ×4 (09:20→21:20)
[2018-06-14] MEDS: CALCIUM ACETATE 667 MG CAP PO SCH ×3 (09:20→17:37)
[2018-06-14] MEDS: ISOSORBIDE MONONITRATE ER 30 MG TAB.ER.24H PO SCH (09:20)
[2018-06-14] MEDS: CHOLECALCIFEROL 1,000 UNIT TAB PO SCH (09:20)
[2018-06-14] MEDS: HYDROCORTISONE 20 MG TAB PO SCH (09:21)
[2018-06-14] MEDS: ARIPiprazole 5 MG TAB PO SCH (09:21)
[2018-06-14] MEDS: SODIUM CHLORIDE 0.9% 1,000 ML IV SCH (09:21)
[2018-06-14] MEDS: DILTIAZEM CD 180 MG CAP.ER.24H PO SCH (09:22)
[2018-06-14] MEDS: INSULIN DETEMIR 100 UNIT/ML 10 ML VIAL SQ SCH (09:53)
[2018-06-14] MEDS: PREGABALIN 50 MG CAP PO SCH ×2 (09:56→22:18)
--- NOTE | 2018-06-14 10:32 | P.PN ---
Subjective Patient is seen in follow-up for end-stage renal disease. He is maintained on hemodialysis on a Friday schedule via left upper extremity AV fistula. Patient had a cardiac arrest from hyperkalemia. Patient was emergently hemodialyzed and potassium level normalized. He is currently off Levophed. Patient did require blood transfusions this admission. Hemoglobin 8.2 as of yesterday . No active bleeding. Cultures remain negative so far. Patient is awake and alert. Denies any active chest pain or shortness of breath. Oral intake is good. Vital signs stable. General: The patient appeared well nourished and normally developed. HEENT: Head exam is unremarkable. Neck is without jugular venous distension. LUNGS: Breath sounds decreased. HEART: Rate and Rhythm are regular. First and second heart sounds normal. No murmurs, rubs or gallops. ABDOMEN: Abdominal exam reveals normal bowel sounds. Non-tender and non- distended. No evidence of peritonitis. EXTREMITITES: No clubbing, cyanosis, or edema. Objective - Vital Signs Vital signs: Vital Signs Temp 98 F 06/14/18 04:00 Pulse 64 06/14/18 09:15 Resp 17 06/14/18 06:00 BP 161/69 06/14/18 04:00 Pulse Ox 91 L 06/14/18 06:00 Intake & Output 06/13/18 06/14/18 06/14/18 18:59 06:59 18:59 Intake Total 330 Output Total 0 Balance 330 Intake: IV 230 Piperacillin-Tazobactam 3 50 .375 gm In Dextrose/Water 1 50ml.bag @ 12.5 mls/hr IVPB Q12HR NATHAN Rx#: [id number] Sodium Chloride 0.9% 1, 180 000 ml @ 20 mls/hr IV . Q24H NATHAN Rx#:[id number] Oral 100 Output: Urine 0 Other: Voiding Method Indwelling Catheter # Voids 0 50 ABP, PAP, CO, CI - Last Documented Arterial Blood Pressure 188/51 - Labs CBC & Chem 7: 06/13/18 04:10 06/13/18 04:10 Labs: Abnormal Lab Results - Last 24 Hours (Table) 06/13/18 06/13/18 06/13/18 Range/Units 11:11 11:38 17:29 POC Glucose (mg/dL) 56 L 104 H 151 H (75-99) mg/dL 06/13/18 06/14/18 06/14/18 Range/Units 22:00 06:45 07:44 POC Glucose (mg/dL) 153 H 140 H 132 H (75-99) mg/dL Microbiology - Last 24 Hours (Table) 06/09/18 12:15 Blood Culture - Preliminary Blood No Growth after 96 hours Assessment and Plan Plan: Assessment: 1. ESRD maintained on HD on MWF schedule via LUE AVF. 2. Cardiac arrest secondary to hyperkalemia. 3. Hypertension with chronic kidney disease. Blood pressures on the higher side. Partially related to Cortef. 4. Hyperkalemia secondary to CKD and concern for GIB. 5. Anemia of CKD - ?actute GIB - status post blood transfusions this admission. Hemoglobin 8.2 today. Maintained on Aranesp. 6. Sepsis mostly likely due to PNA maintained on antibiotics. 7. Chronic kidney disease mineral bone disease. Phosphorus level 6.6. Repeat 5.8. Maintained on PhosLo. 8. Volume overload. Improved with ultrafiltration. 9. Systolic CHF with ejection fraction of 30-35%. 10. Acute non-ST elevated myocardial infarction. Cardiology following. Plan: Hemodialysis on Friday. Monitor hemoglobin and transfuse if hemoglobin less than 7. Hydralazine added for better blood pressure control.
[2018-06-14 12:38] LABS: Glucose,Whole Blood 219 mg/dL (75-99)
[2018-06-14 17:13] LABS: Glucose,Whole Blood 316 mg/dL (75-99)
[2018-06-14] MEDS: hydrALAZINE HCL 25 MG TAB PO SCH ×2 (17:37→21:20)
[2018-06-14 20:42] LABS: Glucose,Whole Blood 122 mg/dL (75-99)
[2018-06-14] MEDS: MELATONIN 3 MG TABLET PO SCH (21:18)
[2018-06-14] MEDS: AMOXIC-POT CLAV 875-125MG 1 EACH TAB PO SCH (21:18)
[2018-06-14] MEDS: HYDROCORTISONE 10 MG TAB PO SCH (21:18)
--- NOTE | 2018-06-14 21:30 | P.PN ---
Subjective Progress Note Date: 06/14/18 Principal diagnosis: Pneumonia Patient continued to be hemodynamically stable numbers of events reported by nursing staff physicians currently is alert and oriented 3 benign chest pain shortness breath nausea vomiting of dumping or dizziness Objective - Vital Signs Vital signs: Vital Signs Temp 97.8 F 06/14/18 16:00 Pulse 65 06/14/18 18:00 Resp 19 06/14/18 18:00 BP 158/64 06/14/18 18:00 Pulse Ox 92 L 06/14/18 10:00 Intake & Output 06/14/18 06/14/18 06/15/18 06:59 18:59 06:59 Intake Total 330 Output Total 0 Balance 330 Intake: IV 230 Piperacillin-Tazobactam 3 50 .375 gm In Dextrose/Water 1 50ml.bag @ 12.5 mls/hr IVPB Q12HR NATHAN Rx#: [id number] Sodium Chloride 0.9% 1, 180 000 ml @ 20 mls/hr IV . Q24H NATHAN Rx#:[id number] Oral 100 Output: Urine 0 Other: Voiding Method Indwelling Catheter Indwelling Catheter # Voids 50 2 # Bowel Movements 1 ABP, PAP, CO, CI - Last Documented Arterial Blood Pressure 188/51 - Exam Constitutional: Well developed, well nourished, no acute distress, non-toxic appearance Eyes: PERRL, conjunctiva normal HENT: Atraumatic, external ears normal, nose normal, oropharynx moist, no pharyngeal exudates. Neck- normal range of motion, no tenderness, supple Respiratory: No respiratory distress, normal breath sounds, no rales, no wheezing Cardiovascular: Normal rate, normal rhythm, no murmurs, no gallops, no rubs GI: Soft, nondistended, normal bowel sounds, nontender, no organomegaly, no mass, no rebound, no guarding : No costovertebral angle tenderness Musculoskeletal: No edema, no tenderness, no deformities. Back- no tenderness Integument: Well hydrated, no rash Lymphatic: No lymphadenopathy noted Neurologic: Alert & oriented x 3, CN 2-12 normal, normal motor function, normal sensory function, no focal deficits noted Psychiatric: Speech and behavior appropriate - Labs CBC & Chem 7: 06/13/18 04:10 06/13/18 04:10 Labs: Abnormal Lab Results - Last 24 Hours (Table) 06/13/18 06/14/18 06/14/18 Range/Units 22:00 06:45 07:44 POC Glucose (mg/dL) 153 H 140 H 132 H (75-99) mg/dL 06/14/18 06/14/18 06/14/18 Range/Units 12:26 17:01 20:31 POC Glucose (mg/dL) 219 H 316 H 122 H (75-99) mg/dL Microbiology - Last 24 Hours (Table) 06/09/18 12:15 Blood Culture - Preliminary Blood No Growth after 120 hours Assessment and Plan Assessment: 1. Acute respiratory failure seems to be improving. 2. Status post cardiac arrest secondary to hyperkalemia. 3. Diabetes mellitus with peripheral neuropathy. 4. Pneumonia. 5. Fluid overloaded status. 6. Chronic kidney disease status post ultrafiltration. 7. Systolic congestive heart failure with ejection fraction 30%. 8. Severe debility and deconditioning. 9. Anemia of chronic disease. 10. Moderate protein calorie malnutrition. Hydralazine was added for better control for his blood pressure. Patient seems to be improving overall. Plan for discharge in the morning based on clinical progress. Plan discussed with patient and nursing staff at the bedside
[2018-06-15] MEDS: SODIUM CHLORIDE 0.9% 1,000 ML IV SCH (03:40)
[2018-06-15 04:41] LABS: Anisocytosis Slight; Basophils % (A) 0 %; Eosinophils # (A) 0.1 k/uL (0-0.7); Eosinophils % (A) 2 %; HCT 24.9 % (39.0-53.0); HGB 8.6 gm/dL (13.0-17.5); Lymphocytes # (A) 0.5 k/uL (1.0-4.8); Lymphocytes % (A) 9 %; MCH 32.9 pg (25.0-35.0); MCHC 34.6 g/dL (31.0-37.0); MCV 94.9 fL (80.0-100.0); Mean Platelet Volume 9.5; Monocytes # (A) 0.2 k/uL (0-1.0); Monocytes % (A) 3 %; Neutrophils # (A) 4.7 k/uL (1.3-7.7); Neutrophils % (A) 84 %; RBC 2.62 m/uL (4.30-5.90); RDW 16.6 % (11.5-15.5); WBC 5.6 k/uL (3.8-10.6)
[2018-06-15 04:44] LABS: Platelet Count 44 k/uL (150-450)
[2018-06-15 04:49] LABS: Calcium 7.9 mg/dL (8.4-10.2); Potassium 4.3 mmol/L (3.5-5.1)
[2018-06-15 07:35] LABS: Glucose,Whole Blood 160 mg/dL (75-99)
[2018-06-15] MEDS: INSULIN ASPART 100 UNIT/ML 1 ML 10 ML VIAL SQ SCH ×4 (07:58→13:22)
[2018-06-15] MEDS: INSULIN DETEMIR 100 UNIT/ML 10 ML VIAL SQ SCH (08:04)
[2018-06-15] MEDS: METOPROLOL TARTRATE 50 MG TAB PO SCH (08:04)
[2018-06-15] MEDS: NYSTATIN 100,000 UNIT/ML SUSP 500,000 UNIT/5 ML CUP PO SCH ×2 (08:04→14:26)
[2018-06-15] MEDS: CHOLECALCIFEROL 1,000 UNIT TAB PO SCH (08:04)
[2018-06-15] MEDS: CALCIUM ACETATE 667 MG CAP PO SCH ×2 (08:04→14:26)
[2018-06-15] MEDS: PANTOPRAZOLE 40 MG TABLET PO SCH (08:04)
[2018-06-15] MEDS: ISOSORBIDE MONONITRATE ER 30 MG TAB.ER.24H PO SCH (08:05)
[2018-06-15] MEDS: HYDROCORTISONE 20 MG TAB PO SCH (08:05)
[2018-06-15] MEDS: LISINOPRIL 20 MG TAB PO SCH (08:05)
[2018-06-15] MEDS: ARIPiprazole 5 MG TAB PO SCH (08:06)
[2018-06-15] MEDS: DILTIAZEM CD 180 MG CAP.ER.24H PO SCH (08:06)
[2018-06-15] MEDS: AMOXIC-POT CLAV 875-125MG 1 EACH TAB PO SCH (08:06)
[2018-06-15] MEDS: hydrALAZINE HCL 25 MG TAB PO SCH (08:09)
[2018-06-15] MEDS: PREGABALIN 50 MG CAP PO SCH (08:12)
[2018-06-15] MEDS: IPRATROPIUM-ALBUTEROL 3 ML NEB INHALATION SCH ×3 (08:22→16:27)
--- NOTE | 2018-06-15 08:41 | P.PN ---
Subjective Progress Note Date: 06/15/18 Principal diagnosis: SNTEMI This is a pleasant 57-year-old gentleman with history of end-stage renal disease on hemodialysis, hypertension, insulin requiring diabetes, CAD with prior stenting. He follows with a account analyst out of [facility]. He presented to the hospital primary complaining of not feeling well overall mild confusion and fever. We were asked to the patient in consultation due to elevated troponin with initial troponin of 0.651 second troponin 2.6 and third troponin 3.5. Patient was initially febrile. Hemoglobin is improved at 9.0 and platelet count is 84 heparin; and anti-platelets have been avoided. Started the patient on oral nitrates. Echocardiogram with Doppler came back to show an ejection fraction of 30-35% with anterior septal, inferior and septal hypokinesis. Few days ago, rapid response team was called for this patient due to respiratory distress, acute hypoxemic and hypercapnic respiratory failure. Patient was bradycardic. CODE BLUE was called. Patient was emergently intubated. Upon examination, patient remains sedated on propofol. On follow-up with the patient today, June [id number], he is doing better. He was extubated the day 2 days ago. He remained hemodynamically stable. The blood pressure seems to be better controlled on the current medical regimen including lisinopril, hydralazine, and diltiazem Objective - Vital Signs Vital signs: Vital Signs Temp 98.1 F 06/15/18 04:00 Pulse 66 06/15/18 08:35 Resp 17 06/15/18 04:00 BP 150/67 06/15/18 04:00 Pulse Ox 94 L 06/15/18 04:00 Intake & Output 06/14/18 06/15/18 06/15/18 18:59 06:59 18:59 Intake Total 0 Output Total 0 Balance 0 Weight 99.1 kg Intake: IV 0 Sodium Chloride 0.9% 1, 0 000 ml @ 20 mls/hr IV . Q24H [facility] Rx#:[id number] Output: Urine 0 Other: Voiding Method Indwelling Catheter Urinal # Voids 2 1 # Bowel Movements 1 1 ABP, PAP, CO, CI - Last Documented Arterial Blood Pressure 188/51 - Constitutional General appearance: Present: no acute distress - Respiratory Respiratory: bilateral: rales - Cardiovascular Heart sounds: normal: S1, S2 - Labs CBC & Chem 7: 10/22/18 04:15 06/15/18 04:15 Labs: Abnormal Lab Results - Last 24 Hours (Table) 06/14/18 06/14/18 06/14/18 Range/Units 04:50 07:44 12:26 RBC (4.30-5.90) m/uL Hgb (13.0-17.5) gm/dL Hct (39.0-53.0) % RDW (11.5-15.5) % Plt Count (150-450) k/uL Lymphocytes # (1.0-4.8) k/uL Carbon Dioxide (22-30) mmol/L BUN (9-20) mg/dL Creatinine (0.66-1.25) mg/dL Glucose (74-99) mg/dL POC Glucose (mg/dL) 132 H 219 H (75-99) mg/dL Calcium (8.4-10.2) mg/dL RBC Folate 1,663 H (280 - 791) ng/mL 06/14/18 06/14/18 06/15/18 Range/Units 17:01 20:31 04:15 RBC 2.62 L (4.30-5.90) m/uL Hgb 8.6 L (13.0-17.5) gm/dL Hct 24.9 L (39.0-53.0) % RDW 16.6 H (11.5-15.5) % Plt Count 44 L D (150-450) k/uL Lymphocytes # 0.5 L (1.0-4.8) k/uL Carbon Dioxide (22-30) mmol/L BUN (9-20) mg/dL Creatinine (0.66-1.25) mg/dL Glucose (74-99) mg/dL POC Glucose (mg/dL) 316 H 122 H (75-99) mg/dL Calcium (8.4-10.2) mg/dL RBC Folate (280 - 791) ng/mL 06/15/18 06/15/18 Range/Units 04:15 07:24 RBC (4.30-5.90) m/uL Hgb (13.0-17.5) gm/dL Hct (39.0-53.0) % RDW (11.5-15.5) % Plt Count (150-450) k/uL Lymphocytes # (1.0-4.8) k/uL Carbon Dioxide 19 L (22-30) mmol/L BUN 72 H (9-20) mg/dL Creatinine 6.46 H (0.66-1.25) mg/dL Glucose 172 H (74-99) mg/dL POC Glucose (mg/dL) 160 H (75-99) mg/dL Calcium 7.9 L (8.4-10.2) mg/dL RBC Folate (280 - 791) ng/mL Microbiology - Last 24 Hours (Table) 06/09/18 12:15 Blood Culture - Preliminary Blood No Growth after 120 hours Assessment and Plan Assessment: Assessment Acute non-ST elevation myocardial infarction Coronary artery disease and prior stenting End stage renal disease on hemodialysis Acute respiratory failure which has resolved Anemia Thrombocytopenia Uncontrolled hypertension Plan Continue the current dose of lisinopril Monitor the hemoglobin and platelet Hold any kind of antiplatelet at this point Follow-up with the patient
[2018-06-15] MEDS ORDERED: GELATIN SPONGE,ABSORB (LARGE) 1 EACH SPONGE ONE (09:30)
--- NOTE | 2018-06-15 10:16 | P.PN ---
Subjective Patient is seen in follow-up for end-stage renal disease. He is maintained on hemodialysis on a Friday schedule via left upper extremity AV fistula. Patient had a cardiac arrest from hyperkalemia. Patient was emergently hemodialyzed and potassium level normalized. He is currently off Levophed. Patient did require blood transfusions this admission. Hemoglobin 8.6 today. No active bleeding. Cultures remain negative so far. Patient is awake and alert. Denies any active chest pain or shortness of breath. Oral intake is good. Wants to go home. Vital signs stable. General: The patient appeared well nourished and normally developed. HEENT: Head exam is unremarkable. Neck is without jugular venous distension. LUNGS: Breath sounds decreased. HEART: Rate and Rhythm are regular. First and second heart sounds normal. No murmurs, rubs or gallops. ABDOMEN: Abdominal exam reveals normal bowel sounds. Non-tender and non- distended. No evidence of peritonitis. EXTREMITITES: No clubbing, cyanosis, or edema. Objective - Vital Signs Vital signs: Vital Signs Temp 98.6 F 06/15/18 08:00 Pulse 66 06/15/18 08:35 Resp 22 06/15/18 08:00 BP 168/70 06/15/18 08:00 Pulse Ox 94 L 06/15/18 06:00 Intake & Output 06/14/18 06/15/18 06/15/18 18:59 06:59 18:59 Intake Total 0 Output Total 0 Balance 0 Weight 99.1 kg Intake: IV 0 Sodium Chloride 0.9% 1, 0 000 ml @ 20 mls/hr IV . Q24H [facility] Rx#:[id number] Output: Urine 0 Other: Voiding Method Indwelling Catheter Urinal Urinal # Voids 2 1 1 # Bowel Movements 1 1 ABP, PAP, CO, CI - Last Documented Arterial Blood Pressure 188/51 - Labs CBC & Chem 7: 06/15/18 04:15 06/15/18 04:15 Labs: Abnormal Lab Results - Last 24 Hours (Table) 06/14/18 06/14/18 06/14/18 Range/Units 04:50 12:26 17:01 RBC (4.30-5.90) m/uL Hgb (13.0-17.5) gm/dL Hct (39.0-53.0) % RDW (11.5-15.5) % Plt Count (150-450) k/uL Lymphocytes # (1.0-4.8) k/uL Carbon Dioxide (22-30) mmol/L BUN (9-20) mg/dL Creatinine (0.66-1.25) mg/dL Glucose (74-99) mg/dL POC Glucose (mg/dL) 219 H 316 H (75-99) mg/dL Calcium (8.4-10.2) mg/dL RBC Folate 1,663 H (280 - 791) ng/mL 06/14/18 06/15/18 06/15/18 Range/Units 20:31 04:15 04:15 RBC 2.62 L (4.30-5.90) m/uL Hgb 8.6 L (13.0-17.5) gm/dL Hct 24.9 L (39.0-53.0) % RDW 16.6 H (11.5-15.5) % Plt Count 44 L D (150-450) k/uL Lymphocytes # 0.5 L (1.0-4.8) k/uL Carbon Dioxide 19 L (22-30) mmol/L BUN 72 H (9-20) mg/dL Creatinine 6.46 H (0.66-1.25) mg/dL Glucose 172 H (74-99) mg/dL POC Glucose (mg/dL) 122 H (75-99) mg/dL Calcium 7.9 L (8.4-10.2) mg/dL RBC Folate (280 - 791) ng/mL 06/15/18 Range/Units 07:24 RBC (4.30-5.90) m/uL Hgb (13.0-17.5) gm/dL Hct (39.0-53.0) % RDW (11.5-15.5) % Plt Count (150-450) k/uL Lymphocytes # (1.0-4.8) k/uL Carbon Dioxide (22-30) mmol/L BUN (9-20) mg/dL Creatinine (0.66-1.25) mg/dL Glucose (74-99) mg/dL POC Glucose (mg/dL) 160 H (75-99) mg/dL Calcium (8.4-10.2) mg/dL RBC Folate (280 - 791) ng/mL Microbiology - Last 24 Hours (Table) 06/09/18 12:15 Blood Culture - Preliminary Blood No Growth after 120 hours Assessment and Plan Plan: Assessment: 1. ESRD maintained on HD on MWF schedule via LUE AVF. 2. Cardiac arrest secondary to hyperkalemia. 3. Hypertension with chronic kidney disease. Blood pressures on the higher side. Partially related to Cortef. 4. Hyperkalemia secondary to CKD and concern for GIB. 5. Anemia of CKD - ?actute GIB - status post blood transfusions this admission. Hemoglobin 8.2 today. Maintained on Aranesp. 6. Sepsis mostly likely due to PNA maintained on antibiotics. 7. Chronic kidney disease mineral bone disease. Phosphorus level 6.6. Repeat 5.8. Maintained on PhosLo. 8. Volume overload. Improved with ultrafiltration. 9. Systolic CHF with ejection fraction of 30-35%. 10. Acute non-ST elevated myocardial infarction. Cardiology following. Plan: Currently seen while undergoing hemodialysis. Monitor hemoglobin and transfuse if hemoglobin less than 7. Hydralazine added for better blood pressure control. Dose adjusted.
--- NOTE | 2018-06-15 11:23 | P.PN ---
Subjective Progress Note Date: 06/15/18 Principal diagnosis: Acute hypoxic and hypercapnic respiratory failure secondary to underlying pneumonia This is a 57-year-old white male with history of multiple medical problems including chronic renal failure, on hemodialysis. Patient is also known to history of coronary artery disease, previous PCI, stenting of RCA 3 stents total in 2013. History of hypertension, cardiovascular disease, type 2 diabetes , diabetic neuropathy, history of alcohol abuse with associated thrombocytopenia and splenomegaly, patient had previous history of metabolic encephalopathy treated in June of 2017, history of diastolic congestive heart failure, admitted this time with mostly symptoms of generalized weakness, confusion, and change in mental status. Patient has also been complaining of some shortness of breath, chest x-ray was suggestive of interstitial edema, his BNP level was elevated, troponin was also elevated, received Lasix in the ER, and there was a significant improvement in his overall pulmonary status patient apparently diuresed significantly although he doesn't usually make much urine since he is a renal failure patient. By the time I saw the patient on consultation, he had no active pulmonary symptoms whatsoever. Patient was relatively asymptomatic, no cough no wheezing no shortness of breath. However apparently when he was admitted there was a concern that the patient may have sepsis because his lactic acid was 1.7. And he was placed empirically on antibiotics for presumptive pneumonia, although the findings on the chest x-ray and the clinical findings are mostly findings of interstitial edema. Again I strongly doubt pneumonia. During my evaluation, the patient was basically asymptomatic. He had no chest pain no cough no wheezing no fever no chills no hemoptysis and no chest pain. Troponin was noted to be a bit higher compared to the morning troponin. His BNP level was over 17,600. Reevaluated today on 06/05/2018, patient is presently on dialysis, he had 1 dialysis done last night, he continues to feel much better. Denies any shortness of breath, no cough, no wheezing, no chest pain. However the patient spiked a temp last night, he had a temp of 101.1 and his temp now is 99.7. Patient is on room air, O2 saturations 97%, blood pressure is normal 132/79. Heart rate is 76. All labs were reviewed, he does not have leukocytosis, basic metabolic profile is normal BUN is 44 creatinine is 4.78. Reviewed the chest x- ray again, clearly consistent with interstitial edema. Remind me patient had a significantly elevated BNP level on admission. Reevaluated today on 06/06/2018, had his dialysis yesterday, and 2 L of fluids were removed. Patient continues to feel better clinically, no shortness of breath no cough no wheezing. No fever no chills, no chest pain, no hemoptysis. Chest x-ray today showed definite improvement compared to previous x-rays, and clinically the patient is showing definite improvement in his room air saturation is 97%. Hemodynamically remained stable all along since admission. Patient was reevaluated today on 06/07/2018, feels great, basically asymptomatic. Denies any shortness of breath, no cough, no wheezing, no fever, no chills, no hemoptysis, no nausea no vomiting no abdominal pain. His last hemodialysis was on Friday. I believe he would have another dialysis tomorrow. Pulmonary-cast the patient is doing great. Labs were reviewed WBC count is 4.5 hemoglobin is 7.9. His BUN is 54 creatinine is 5.98. Potassium is a bit elevated at 5.6. Patient was seen by cardiology today, and advised to continue current medical regimen, advised to continue beta blockers, patient did have acute non-ST elevation myocardial infarction on admission. On 06/08/2018 patient seen in the intensive care unit. Sometime at midnight on 06/08/2018 there was a rapid response team called for a concern of respiratory distress, and acute hypoxemic and hypercapnic respiratory failure. Was emergently intubated, and this morning patient is seen intubated, sedated, on mechanical ventilator. Current IV fluids are 0.9 normal saline at a rate of 25 ML per hour, levofed at 20 mics per minute, Diprivan and is at 25 mcg/kg/min. patient had emergent hemodialysis last night, would removal of 300 mL of fluid. And was not given any IV boluses in view of his acute on chronic renal failure. This morning blood work has been reviewed, there has been acute elevation of white blood count, to 18.4, hemoglobin is 9.5, electrolytes were within normal limits, there has been improvement in his renal profile, BUN was down to 33, creatinine is down to 3.64, patient is making small amounts of urine , in the range of 5-10 ML per hour. Antibiotic coverage includes Zosyn, Levaquin and vancomycin. Blood and urine cultures were collected, and showed no growth. he has some thick yellow sputum being suctioned from the ET tube. Today's chest x-ray has been reviewed by Dr. Otoole, and showed left lower lobe infiltrate. This morning's blood gas has been reviewed, and showed pO2 of 3:15 , pCO2 57, pH of 7.30, this was done on settings of assist control mode with a rate of 16, tidal volume of 360, FiO2 of 100%, and PEEP of 5. FiO2 was dropped down to 50%. We will make further adjustments to the vent settings we will increase the rate to 24, tidal volume decreased to 450, FiO2 50% and PEEP of 5. Patient's spouse is at the bedside, her rash was to continue with full code, and supportive treatment. On 06/09/2018 patient seen again in the intensive care unit. He remains intubated, sedated, on mechanical ventilator, current vent settings assist- control mode with a rate of 24, tidal volume 450, FiO2 50%, and PEEP of 5. This morning blood gases showed pO2 of 117, pCO2 42, pH of 7.42, FiO2 was dropped to 40% based on those blood gases. This morning's labs show WBC of 6.2 , hemoglobin is down to 6.7, from 9.0 yesterday, platelet count is down to 44, electrolyte panel is within normal limits, BUN 24, creatinine is 5.48. Random serum cortisol level was 14. Yesterday we gave the patient additional 2 L IV bolus of lactated Ringer's, and levo fed dose is down to 9 mics per minute this morning. Maintenance IV fluids 0.9 at 20 ML per hour. To prevent is 50 mics per kilo per minute. Blood cultures remain negative thus far, her antibiotic coverage includes Zosyn, Levaquin, and vancomycin. No signs of GI bleeding, occult blood stool was negative. Today's chest x-ray has been reviewed, and shows improvement in the appearance of bilateral airspace disease and pulmonary edema. Patient is producing urine, in the order 45-60 ML per hour. Patient does have intermittent low-grade fevers, with a T-max of 100.2F. Lung sounds are clear to auscultation. Dietary has been consulted for to proceeding recommendations. On 06/10/2018 patient seen in follow-up. He remains sedated, intubated on mechanical ventilation, current vent settings are assist-control mode with a rate of 24 breaths per minute, tidal volume of 450, FiO2 is 40% and PEEP of 5. Blood gases were done on those settings, and showed pO2 of 104, pCO2 40, and pH of 7.39. Today's chest x-ray has been reviewed by Dr. Otoole, and shows mild CHF. Yesterday patient was given a dose of IV Lasix, and transfused with 1 unit of packed red blood cells, today's CBC is pending, BMP shows sodium is 139 , potassium is 4.4, chloride is 104, CO2 is 24, BUN of 59, and creatinine of 6.44. Cultures remain negative thus far. Patient is afebrile, maintenance IV fluids include 0.9 normal saline at a rate of 20 ML per hour, levo fed and has been weaned off, propofol is currently at 50 mics per kilo per minute, patient has 2 feedings infusing Nepro at 43 ML per hour, with a goal of 43. Tolerating it well. Lung sounds are clear to auscultation. No acute issues overnight. Patient continues on antibiotic coverage includes Zosyn and Levaquin and vancomycin. She is producing urine, 30-35 ML per hour. We will give the patient is a sedation holiday today, assess readiness for spontaneous breathing trial. On 06/11/2018 patient seen in follow-up in the intensive care unit. He was extubated yesterday on 06/10/2018 and he is tolerating extubation quite well, currently not on any supplemental oxygen, room air pulse ox is 94%, he is afebrile, hemodynamically stable. He is awake and alert, oriented 3, his up in bed, denies any difficulty breathing, denies any chest pain. He did have another hemodialysis treatment yesterday with removal of 1.5 L of fluid. Patient was transfused with a unit of blood yesterday for hemoglobin of 6.7, and this am hemoglobin is 6.6, with no obvious signs of bleeding. Patient is being transfused with another unit of packed red blood cells. This is the patient's third unit of blood this admission. Today's lab work was reviewed, shows WBC of 3.1, hemoglobin as mentioned above, serum sodium is 135, no history of Dr. figueroa were within normal limits, renal profile is improving, B1 is 44, creatinine is 4.08. Today's chest x-ray has been reviewed and shows changes consistent with mild CHF, diffuse interstitial and patchy airspace infiltrates. Vital signs remain stable. Chest on negative with exception of Ofelia in the sputum. He notes IV fluid is 0.9 normal saline at a rate of 20 ML per hour, patient is tolerating oral diet. Antibiotic coverage includes Zosyn, vancomycin and Levaquin. On 06/14/2018 patient seen in follow-up in the intensive care unit. He has been awaiting a bed for selective care unit. He remains stable, awake and alert , sitting up in a chair, on room air, his pulse ox is 91-94%, denies any distress, no specific complaints, no shortness of breath or chest pain, no IV fluids, IV fluids have been hep-locked. He is in sinus mechanism with a controlled rate, he is afebrile, hemodynamically stable. Sputum culture was positive for Ofelia only which could be oral contamination, other cultures remain negative, patient denies any fever or chills. No new chest x-rays today , no new labs. His antibiotics have been streamlined to Zosyn. We will switch her to oral antibiotics starting today. Increase activity, encourage deep breathing and coughing. On 06/15/2018 patient is follow-up in the intensive care unit. He has been awaiting a bed on selective care unit. He is currently undergoing hemodialysis. Denies any chest pain, denies any shortness of breath. Not requiring any supplemental oxygen, pulse ox is 94% on room air, hemodynamically stable, patient is afebrile. Lung sounds are clear to auscultation, no rhonchi , no crackles or wheezes. Cultures remain negative. He continues on oral Augmentin, currently his IV fluids have been hep-locked, patient has a left IJ triple-lumen catheter in place which can be discontinued at this time. Today's lab work has been reviewed, WBC is 5.6, hemoglobin is 8.6, sodium is 138, potassium is 4.3, chloride is 107, CO2 is 19, BUN is 72, creatinine is 6.46. Objective - Vital Signs Vital signs: Vital Signs Temp 98.6 F 06/15/18 08:00 Pulse 66 06/15/18 08:35 Resp 22 06/15/18 08:00 BP 168/70 06/15/18 08:00 Pulse Ox 94 L 06/15/18 06:00 Intake & Output 06/14/18 06/15/18 06/15/18 18:59 06:59 18:59 Intake Total 0 Output Total 0 Balance 0 Weight 99.1 kg Intake: IV 0 Sodium Chloride 0.9% 1, 0 000 ml @ 20 mls/hr IV . Q24H [facility], [facility] Rx#:[id number] Output: Urine 0 Other: Voiding Method Indwelling Catheter Urinal Urinal # Voids 2 1 1 # Bowel Movements 1 1 ABP, PAP, CO, CI - Last Documented Arterial Blood Pressure 188/51 - Exam GENERAL EXAM: Awake and alert, pleasant 57-year-old white male in no apparent distress. HEAD: Normocephalic/atraumatic. EYES: Normal reaction of pupils, equal size. Conjunctiva pink, sclera white. NOSE: Clear with pink turbinates. THROAT: No erythema or exudates. NECK: No masses, no JVD, no thyroid enlargement, no adenopathy. CHEST: No chest wall deformity. Symmetrical expansion. LUNGS: Equal air entry with no crackles, wheeze, rhonchi or dullness. CVS: Regular rate and rhythm, normal S1 and S2, no gallops, no murmurs, no rubs ABDOMEN: Soft, nontender. No hepatosplenomegaly, normal bowel sounds, no guarding or rigidity. EXTREMITIES: No clubbing, no edema, no cyanosis, 2+ pulses and upper and lower extremities. MUSCULOSKELETAL: Muscle strength and tone normal. SPINE: No scoliosis or deformity SKIN: No rashes CENTRAL NERVOUS SYSTEM: Intubated, and sedated. No focal deficits, tone is normal in all 4 extremities. PSYCHIATRIC: Unable to assess, patient is intubated. - Labs CBC & Chem 7: 06/15/18 04:15 06/15/18 04:15 Labs: Abnormal Lab Results - Last 24 Hours (Table) 06/14/18 06/14/18 06/14/18 Range/Units 04:50 12:26 17:01 RBC (4.30-5.90) m/uL Hgb (13.0-17.5) gm/dL Hct (39.0-53.0) % RDW (11.5-15.5) % Plt Count (150-450) k/uL Lymphocytes # (1.0-4.8) k/uL Carbon Dioxide (22-30) mmol/L BUN (9-20) mg/dL Creatinine (0.66-1.25) mg/dL Glucose (74-99) mg/dL POC Glucose (mg/dL) 219 H 316 H (75-99) mg/dL Calcium (8.4-10.2) mg/dL RBC Folate 1,663 H (280 - 791) ng/mL 06/14/18 06/15/18 06/15/18 Range/Units 20:31 04:15 04:15 RBC 2.62 L (4.30-5.90) m/uL Hgb 8.6 L (13.0-17.5) gm/dL Hct 24.9 L (39.0-53.0) % RDW 16.6 H (11.5-15.5) % Plt Count 44 L D (150-450) k/uL Lymphocytes # 0.5 L (1.0-4.8) k/uL Carbon Dioxide 19 L (22-30) mmol/L BUN 72 H (9-20) mg/dL Creatinine 6.46 H (0.66-1.25) mg/dL Glucose 172 H (74-99) mg/dL POC Glucose (mg/dL) 122 H (75-99) mg/dL Calcium 7.9 L (8.4-10.2) mg/dL RBC Folate (280 - 791) ng/mL 06/15/18 Range/Units 07:24 RBC (4.30-5.90) m/uL Hgb (13.0-17.5) gm/dL Hct (39.0-53.0) % RDW (11.5-15.5) % Plt Count (150-450) k/uL Lymphocytes # (1.0-4.8) k/uL Carbon Dioxide (22-30) mmol/L BUN (9-20) mg/dL Creatinine (0.66-1.25) mg/dL Glucose (74-99) mg/dL POC Glucose (mg/dL) 160 H (75-99) mg/dL Calcium (8.4-10.2) mg/dL RBC Folate (280 - 791) ng/mL Microbiology - Last 24 Hours (Table) 06/09/18 12:15 Blood Culture - Preliminary Blood No Growth after 120 hours Assessment and Plan Plan: Assessment: 1 acute pulmonary edema, most likely secondary to fluid overload secondary to chronic renal failure, and secondary to systolic dysfunction, his ejection fraction on the echocardiogram showed 30%. Significant anteroseptal hypokinesis noted. Patient has required intubation and mechanical ventilation, and was successfully extubated on 06/10/2018, and tolerating extubation well. 2 possibility of pneumonia is not entirely ruled out, especially with elevated pro calcitonin level hence would recommend we continue antibiotics. 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 8 end-stage renal disease, on hemodialysis. 9 type 2 diabetes 10 hyperkalemia secondary to renal failure, patient apparently has been noncompliant with dialysis. Nephrology is following. 11 acute non-ST elevation myocardial infarction 12 Secondary adrenal insufficiency Plan: Continue oral Augmentin, nebulized bronchodilators, patient concentric on hemodialysis today. Remains hemodynamically stable, not requiring supplemental oxygen. Increase activity as tolerated. Discharge planning is in progress for discharge home today. No worsening shortness of breath, no specific complaints , no fever or chills. The patient gets discharged home today, he'll need follow -up with Dr. Caceres in the office within one week I performed a history & physical examination of the patient and discussed their management with my nurse practitioner, Yumiko Matta. I reviewed the nurse practitioner's note and agree with the documented findings and plan of care. Lung sounds are positive for clear sounds. The findings and the impression was discussed with the patient. I attest to the documentation by the nurse practitioner. Time with Patient: Less than 30
[2018-06-15 12:36] LABS: Glucose,Whole Blood 126 mg/dL (75-99)
[2018-06-15 14:31] VITALS: BP 161/85; PULSE 70; RESP 19; TEMP 97.4
[2018-06-15] MEDS ORDERED: hydrALAZINE HCL 50 MG TAB PO SCH (16:00)
[2018-06-16 07:37] LABS: Methylmalonic Acid 0.77 umol/L (<0.40)
--- NOTE | 2018-06-16 11:28 | P.DS ---
Providers Date of admission: 06/04/18 03:23 Expected date of discharge: 06/15/18 Attending physician: Jeimy Feliciano Consults: 06/04/18 03:23 Consult Physician Urgent Consulting Provider: Marion Garcia Consult Reason/Comments: Hemodialysis patient. Hyperkalemia. Do you want consulting provider notified?: Yes 06/04/18 03:47 Consult Physician Routine Consulting Provider: Papa Ha Consult Reason/Comments: elevated troponin Do you want consulting provider notified?: Yes 06/04/18 11:37 Consult Physician Routine Consulting Provider: Amanda Herron Consult Reason/Comments: acute hypoxic resp failure Do you want consulting provider notified?: Yes 06/05/18 11:53 Consult Physician Routine Consulting Provider: Tyler Nicholson Consult Reason/Comments: Possible pneumonia Do you want consulting provider notified?: Yes 06/11/18 11:18 Consult Physician Routine Consulting Provider: Bin Schreiber Consult Reason/Comments: pancytopenia Do you want consulting provider notified?: Yes Primary care physician: Gonzales Drew [facility] Course: This is a 57 Year-Old male one of patient with a previous medical history significant for CAD post PCI and stenting of the RCA x3 stents 2013. hypertension and hypertensive cardiovascular disease, hyperlipidemia, diabetes mellitus type 2 and diabetic neuropathy with remote history of alcohol abuse and splenomegaly causing thrombocytopenia, ESRD from DM on HD for 1 year on [facility] , previously treated for involuntary dystonia secondary to Abilify medication or uremia. Last admitted June 2017 for metabolic encephalopathy and acute hypoxic hypercarbic respiratory failure secondary to acute diastolic heart failure and hypercarbia for which patient was briefly intubated. Sepsis was ruled out during the last admission. Patient comes at this time with increased generalized weakness associated with change in mental status. Patient does complain of some cough and shortness of breath with sputum production. Most of the history is provided by the family at bedside as patient is not able to give any history. He did have 3 suspected skin cancer removed for biopsy by Dr. Myers but was feeling unwell for past 2 days. Patient missed dialysis yesterday due to the weakness. He usually gets it at Friday and Friday. In the ER patient was found to have a fever of 103 pulse rate of 125, respiratory rate 32, blood pressure 183/81. Labs obtained in the ER suggested leukocyte of 8.6 chronic thrombocytopenia with platelets 52, INR 1.1, potassium 6.7, creatinine 5.42, glucose 233 calcium 8, total bilirubin 1.4 initial troponin 0.651 which increased to 2.6. Lactate is 1.7 Patient was evaluated by cardiology in the ER was suggested that the increase in troponin been related to sepsis. Echocardiogram has been ordered. Chest x-ray done in the ER concerning for interstitial infiltrate concerning for pneumonia. Patient has already received 1 dose of vancomycin and Levaquin dose adjusted to kidney functions. Due to patient's end-stage renal disease patient would not be able to get any fluid boluses or at maintainance. Pro- calcitonin ordered. Mycoplasma and urinary legionella ordered. Patient is admitted for sepsis secondary to community-acquired pneumonia with possible volume overload and hypercarbia causing change in mental status. 06/05: Patient lying in bed with Dialysis at bedside. Patient did get up and walk around today but states he was Short of breath when returning to bed. Patient continues with SOB with exertion and fatigue. Patient has a history of anemia, thrombocytopenia and Hgb decreased to 7.6. Patient does complain of bilateral abdominal pain. 06/06: patient is sitting at the edge of he bed eating breakfast, feeling a bit better, no fever or chills, no abdominal pain, still short of breath with activity,we will continue to monitor hgb very closely. 06/07: Patient is laying down in bed he is complain of constipation we will start him on lactulose 30 mL twice every day, patient was instructed to use the CPAP while he is sleeping because of his deep sleep, he denies any chest pain he is less short of breath, we'll continue to monitor the patient very closely. 06/08: Last night around midnight, rapid response team was called to the patients bedside due to respiratory distress, hypoxia, and respiratory failure. The patient was intubated. He also underwent emergent hemodialysis. This morning , patient remains intubated and sedated, he remains on Levofed. Settings are rate of 24, tidal volume 450, Fi02 of 50% and PEEP of 5. This morning, labs reveal an elevated of white blood cell count 18.4, Hbg 9.5, Cr 3.64 and BUN 33, blood gas Po2 128, Pco2 41, PH 7.39. He remain on Zosyn, Levaquin and vancomycin. Blood cultures show no growth to date. Repeat chest xray showed some clearing of pulmonary vascular congestion. 06/09: Patient evaluated this morning. He continues to be intubated and on a ventilator, settings are assist control, rate of 24, tidal volume 450, Fi02 40% , and PEEP of 5. His ABG shows p02 117, pC02 42, PH 7.42. His hemoglobin dropped to 6.7, platelets dropped to 44. He is scheduled to receive 1 unit of PRBCs. He still requires small dose of vasopressors. Blood cultures still show no growth to date, he remain on zosyn, Levaquin and vancomycin. His did have a temperature of 101, repeat blood cultures have been drawn. He is receiving tube feedings per dietary recommendations. 06/10: Patient remains in the intensive care unit. He is receiving hemodialysis at this time. Patient was extubated this morning at 10 AM. Nystatin ordered for thrush. He is currently on Levaquin, Zosyn and pharmacy dose vancomycin. Patient has been off norepinephrine. He has been resumed on Cardizem. His blood pressure is on the higher side. He has been afebrile. Hemoglobin is 6.7, white count 2.4, platelet count 29, BUN 59, creatinine 6.244. Blood sugars are running between 106 and 287. Urine, sputum cultures in progress. Blood cultures no growth. 06/11: Patient remains in intensive care unit. Blood pressure medications were resumed yesterday. He has complained of a headache to the frontal area. No vision changes. His sore throat is better today. He is complaining of difficulty sleeping for which melatonin is been added. He did have 5 bowel movements yesterday afternoon and C. diff was negative. Lactulose held and discontinued. He is currently undergoing transfusion 1 unit packed RBC for hemoglobin of 6.6. This will be his third unit since admission. WBC count is 3.1 and platelet count 22. Consult with oncology for pancytopenia. Blood sugars been running in the 200s. Levemir increased to 30 units. He has been afebrile, blood pressure on the higher side. Pulse ox is 93% on room air. He is scheduled for hemodialysis for tomorrow. 06/12:Patient remains afebrile and hemodynamically stable. Blood pressure has been high and Dr. Ha has increased Lisinopril to 40 mg daily. Hgb 8.1 after yesterday's transfusion. Hematology is planning to see patient today. PLT 27. He remains in place. He is undergoing HD today. Patient had ectopy on air sampling and monitoring and potassium was replaced with improvement. Chest x-ray shows worsening bibasilar airspace disease, right greater than left with progressive pulmonary vascular congestion and interstitial edema. Findings likely related to decompensated congestive heart failure and confluent pulmonary edema with atelectasis. Patient was started on melatonin last night but only slept 2 hours. He has difficulty sleeping as he is afraid of dying while he sleeping. He is complaining of peripheral neuropathy and Lyrica will be resumed. 06/13: Patient is complaining of burning sensation in bilateral feet and attributed it to holding Lyrica. We will continue current management follow up with nephrology medical recommendation, I would like to start patients on medical 50 mg twice daily continue with insulin sliding scale goal for glucose less than 180 during this hospital stay would optimize risk factors monitor blood pressure closely and repeat blood work in the morning. Patient seems to be improving overall and we will consider transfer to general medical floor once but the available. Plan discussed with patient and nursing staff at the bedside 06/14:Patient continued to be hemodynamically stable numbers of events reported by nursing staff physicians currently is alert and oriented 3 benign chest pain shortness breath nausea vomiting of dumping or dizziness. Hydralazine was added for better control for his blood pressure. Patient seems to be improving overall. Plan for discharge in the morning based on clinical progress. Plan discussed with patient and nursing staff at the bedside 06/15: Patient is denying any new complaints. He is very anxious to be discharged. Patient has been cleared for discharge by consultants. No antibiotics are required. Patient will be discharged home today in stable condition. Discharge diagnoses: 1. Acute hypoxic respiratory failure likely secondary to fluid overload from chronic renal failure, acute on chronic systolic heart failure 2. Sepsis with septic shock secondary to possible gram-negative pneumonia not completely ruled out. 3. Acute non ST elevated RI. 4. No cardiac arrest, A-Team called 5. Metabolic encephalopathy likely secondary to sepsis with possible hypercarbia. 6. Type 2 diabetes insulin requiring. 7. Acute on chronic diastolic heart failure. 8. Diabetic neuropathy. 9. End stage renal disease on hemodialysis Friday. 10. MONTSE noncompliant to CPAP 11. CAD status post PCI to the RCA. 12. 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 13. Generalized anxiety disorder and recurrent depression. 14. Peripheral artery disease. 15. Degenerative disc disease of cervical spine status post-ACDF. 16. Chronic Anemia of chronic renal disease 17. Small right sided pleural effusion. 20. Pancytopenia. 21. Insomnia. Discharge plan: home with [facility]. Impression and plan of care have been directed as dictated by the signing physician. Iram Love nurse practitioner acting as scribe for signing physician. Patient Condition at Discharge: Good Plan - Discharge Summary Discharge Rx Participant: No New Discharge Prescriptions: New Cholecalciferol [Vitamin D3] 2,000 unit PO DAILY tab hydrALAZINE HCL [Apresoline] 50 mg PO TID #90 tab Hydrocortisone [Cortef] 10 mg PO HS #63 tab Insulin Aspart [Novolog Flexpen] 9 unit SQ AC-TID #5 insuln.pen Isosorbide Mononitrate ER [Imdur] 30 mg PO DAILY #30 tab.er.24h Lisinopril [Zestril] 40 mg PO DAILY #30 tab Melatonin 6 mg PO HS tablet Nystatin 100,000 Unit/ml Susp [Mycostatin Oral Susp] 500,000 unit PO QID #20 cup Continue Atorvastatin Calcium [Lipitor] 80 mg PO HS #30 tab Nitroglycerin Sl Tabs [Nitrostat] 0.4 mg SUBLINGUAL Q5M PRN PRN Reason: Chest Pain ARIPiprazole [Abilify] 5 mg PO DAILY Metoprolol Tartrate [Lopressor] 150 mg PO BID ALPRAZolam [Xanax] 0.25 mg PO BID PRN PRN Reason: Anxiety Omeprazole 20 mg PO DAILY Morphine Sulfate ER [Ms Contin] 30 mg PO Q12HR HYDROcodone/APAP 10-325MG [[place] 10-325] 1 tab PO Q4HR PRN PRN Reason: Pain Diltiazem HCl [Diltiazem 24Hr ER] 180 mg PO DAILY Insulin Glargine,Hum.rec.anlog [Basaglar Kwikpen U-100] 20 unit SQ DAILY Pregabalin [Lyrica] 50 mg PO BID Bumetanide [BUMEX] 4 mg PO DAILY Bumetanide [BUMEX] 2 mg PO HS Changed Calcium Acetate [PhosLo] 667 mg PO TID-W/MEALS #90 cap Discontinued Lisinopril [Zestril] 20 mg PO BID #60 tab Insulin NPH Hum/Reg Insulin Hm [NovoLIN 70-30 100 UNIT/ML VIAL] 20 unit SQ AC -TID Amoxicillin 500 mg PO TID Discharge Medication List Atorvastatin Calcium [Lipitor] 80 mg PO HS #30 tab 03/01/14 [Rx] Nitroglycerin Sl Tabs [Nitrostat] 0.4 mg SUBLINGUAL Q5M PRN 06/01/17 [History] ARIPiprazole [Abilify] 5 mg PO DAILY 07/06/17 [History] ALPRAZolam [Xanax] 0.25 mg PO BID PRN 06/04/18 [History] Bumetanide [BUMEX] 2 mg PO HS 06/04/18 [History] Bumetanide [BUMEX] 4 mg PO DAILY 06/04/18 [History] Diltiazem HCl [Diltiazem 24Hr ER] 180 mg PO DAILY 06/04/18 [History] HYDROcodone/APAP 10-325MG [[place] 10-325] 1 tab PO Q4HR PRN 06/04/18 [History] Insulin Glargine,Hum.rec.anlog [Basaglar Kwikpen U-100] 20 unit SQ DAILY [History] Metoprolol Tartrate [Lopressor] 150 mg PO BID 06/04/18 [History] Morphine Sulfate ER [Ms Contin] 30 mg PO Q12HR 06/04/18 [History] Omeprazole 20 mg PO DAILY 06/04/18 [History] Pregabalin [Lyrica] 50 mg PO BID 06/04/18 [History] Calcium Acetate [PhosLo] 667 mg PO TID-W/MEALS #90 cap 06/15/18 [Rx] Cholecalciferol [Vitamin D3] 2,000 unit PO DAILY tab 06/15/18 [Rx] Hydrocortisone [Cortef] 10 mg PO HS #63 tab 06/15/18 [Rx] Insulin Aspart [Novolog Flexpen] 9 unit SQ AC-TID #5 insuln.pen 06/15/18 [Rx] Isosorbide Mononitrate ER [Imdur] 30 mg PO DAILY #30 tab.er.24h 06/15/18 [Rx] Lisinopril [Zestril] 40 mg PO DAILY #30 tab 06/15/18 [Rx] Melatonin 6 mg PO HS tablet 06/15/18 [Rx] Nystatin 100,000 Unit/ml Susp [Mycostatin Oral Susp] 500,000 unit PO QID #20 cup 06/15/18 [Rx] hydrALAZINE HCL [Apresoline] 50 mg PO TID #90 tab 06/15/18 [Rx] Follow up Appointment(s)/Referral(s): [facility] [Provider Group] - 1 Week John Otoole DO [Doctor of Osteopathic Medicine] - 1 Week [facility], [NON-STAFF] - Gonzales Drew MD [Primary Care Provider] - 1 Week Patient Instructions/Handouts: Chronic Kidney Disease (DC), Hyperkalemia (DC) Discharge Disposition: HOME WITH HOME HEALTH SERVICES
--- NOTE | 2018-06-16 13:59 | CDI ---
Documentation Clarification Form Date: 06/16/18 From: Kylie Gonzales Phone: data systems manager [phone] Admit Date: 06/04/2018 3:23:00 AM Patient Name: Ismael Silva Visit Number: [id number] Discharge Date: 06/15/18 ATTENTION: The Clinical Documentation Specialists (CDI) and [facility] Coding Staff appreciate your assistance in clarifying documentation. Please respond to the clarification below the line at the bottom and electronically sign. The CDI & [facility] Coding staff will review the response and follow-up if needed. Please note: Queries are made part of the Legal Health Record. If you have any questions, please contact the author of this message via ITS. Jeimy Michel MD Diagnosis and location in medical record ___ Patient history/risk factors Clinical Indicators: Lab findings: Radiology findings: Vital Signs: Other Clinical Indicators: Treatment: Consults: In your professional opinion, can you please clarify ? Insert option Other, please specify Unable to determine MTDD
== END 2018-06-15 21:20 | disposition home health service (06) | DRG 871 ==
LOC: EC 00:10 → 6SEL 03:23 → 3SCARD 06-07 08:44 → 2SICU 06-08
PROVIDERS: ADMIT Family Medicine; ATTEND Family Medicine
PROC: 5A09357 Assistance with Respiratory Ventilation, Less than 24 Consecutive Hours, Continuous Positive Airway Pressure (ICD-10-PCS; 2018-06-04)
PROC: 5A1D70Z Performance of Urinary Filtration, Intermittent, Less than 6 Hours Per Day (ICD-10-PCS; 2018-06-04)
PROC: 5A1945Z Respiratory Ventilation, 24-96 Consecutive Hours (ICD-10-PCS; principal; 2018-06-08)
PROC: 0BH17EZ Insertion of Endotracheal Airway into Trachea, Via Natural or Artificial Opening (ICD-10-PCS; 2018-06-08)
PROC: 03HY32Z Insertion of Monitoring Device into Upper Artery, Percutaneous Approach (ICD-10-PCS; 2018-06-08)
PROC: 02H633Z Insertion of Infusion Device into Right Atrium, Percutaneous Approach (ICD-10-PCS; 2018-06-08)
PROC: 30233N1 Transfusion of Nonautologous Red Blood Cells into Peripheral Vein, Percutaneous Approach (ICD-10-PCS; 2018-06-09)
DX: A41.50 Gram-negative sepsis, unspecified (principal); J15.6 Pneumonia due to other Gram-negative bacteria; R65.21 Severe sepsis with septic shock; G93.41 Metabolic encephalopathy; I21.4 Non-ST elevation (NSTEMI) myocardial infarction; I46.8 Cardiac arrest due to other underlying condition; I50.23 Acute on chronic systolic (congestive) heart failure; J96.01 Acute respiratory failure with hypoxia; J96.02 Acute respiratory failure with hypercapnia; N18.6 End stage renal disease; D61.818 Other pancytopenia; E27.49 Other adrenocortical insufficiency; F33.9 Major depressive disorder, recurrent, unspecified; I13.2 Hypertensive heart and chronic kidney disease with heart failure and with stage 5 chronic kidney disease, or end stage renal disease; I42.9 Cardiomyopathy, unspecified; J44.0 Chronic obstructive pulmonary disease with (acute) lower respiratory infection; J98.11 Atelectasis; K86.1 Other chronic pancreatitis; I82.891 Chronic embolism and thrombosis of other specified veins; N17.9 Acute kidney failure, unspecified; E11.22 Type 2 diabetes mellitus with diabetic chronic kidney disease; E11.42 Type 2 diabetes mellitus with diabetic polyneuropathy; E11.51 Type 2 diabetes mellitus with diabetic peripheral angiopathy without gangrene; I95.9 Hypotension, unspecified; E11.65 Type 2 diabetes mellitus with hyperglycemia; E66.01 Morbid (severe) obesity due to excess calories; E87.5 Hyperkalemia; K70.9 Alcoholic liver disease, unspecified; M19.90 Unspecified osteoarthritis, unspecified site; D63.1 Anemia in chronic kidney disease; D73.1 Hypersplenism; E78.5 Hyperlipidemia, unspecified; F41.1 Generalized anxiety disorder; G47.00 Insomnia, unspecified; G47.33 Obstructive sleep apnea (adult) (pediatric); I25.10 Atherosclerotic heart disease of native coronary artery without angina pectoris; I25.2 Old myocardial infarction; K21.9 Gastro-esophageal reflux disease without esophagitis; K59.00 Constipation, unspecified; R00.1 Bradycardia, unspecified; E83.89 Other disorders of mineral metabolism; I83.90 Asymptomatic varicose veins of unspecified lower extremity; R10.9 Unspecified abdominal pain; R27.8 Other lack of coordination; M50.30 Other cervical disc degeneration, unspecified cervical region; Z68.29 Body mass index [BMI] 29.0-29.9, adult; Z79.4 Long term (current) use of insulin; Z79.899 Other long term (current) drug therapy; Z99.2 Dependence on renal dialysis; Z91.19 Patient's noncompliance with other medical treatment and regimen; Z91.15 Patient's noncompliance with renal dialysis; Z90.49 Acquired absence of other specified parts of digestive tract; Z87.891 Personal history of nicotine dependence; Z86.73 Personal history of transient ischemic attack (TIA), and cerebral infarction without residual deficits; Z85.828 Personal history of other malignant neoplasm of skin; Z95.5 Presence of coronary angioplasty implant and graft; Z98.1 Arthrodesis status; Z82.49 Family history of ischemic heart disease and other diseases of the circulatory system; Z80.9 Family history of malignant neoplasm, unspecified
CPT/HCPCS: 36415; 36600; 70450; 71045; 74176; 80048; 80053; 80202; 81001; 82140; 82272; 82533; 82550; 82553; 82607; 82728; 82747; 82805; 83036; 83540; 83550; 83605; 83735; 83880; 83921; 84100; 84132; 84145; 84443; 84484; 85025; 85027; 85045; 85610; 85730; 86706; 86738; 86850; 86900; 86901; 86920; 87040; 87070; 87086; 87205; 87324; 87340; 87449; 87502; 90935; 93005; 93306; 94002; 94003; 94640; 94660; 96365; 96366; 96368; 96375; 99285

== ENCOUNTER 2019-01-04 09:20 | Inpatient (IN) | payer BC, MEDICARE ==
[2019-01-04] MEDS ORDERED: DIAZEPAM 5 MG/ML 2 ML INJ IVP STA (09:39)
--- NOTE | 2019-01-04 10:12 | ED ---
General Adult HPI - General Source: patient, RN notes reviewed Mode of arrival: ambulatory Limitations: no limitations <Allan Calle - Last Filed: 01/04/19 11:46> <John Woo - Last Filed: 01/04/19 11:57> - General Chief complaint: Weakness Stated complaint: Shaking Time Seen by Provider: 01/04/19 09:30 - History of Present Illness Initial comments: 58-year-old male presents emergency Department chief complaint of weakness, tremors. Patient states that he has uncontrolled tremors. Patient states she's had this in the past but nothing this severe recently. Patient was admitted in the past. Patient states he is on dialysis and believes is related to his kidney disease. Patient denies any chest pain, shortness breath, headache, dizziness, focal weakness, leg swelling, abdominal pain, nausea, vomiting diarrhea constipation. Patient is scheduled for dialysis today but did not go at this time. (Allan Calle) - Related Data Home Medications Medication Instructions Recorded Confirmed ALPRAZolam [Xanax] 0.25 mg PO HS PRN 06/04/18 01/04/19 Diltiazem HCl [Diltiazem 24Hr ER 180 mg PO DAILY 06/04/18 01/04/19 (CD)] HYDROcodone/APAP 10-325MG [[place] 1 tab PO TID 06/04/18 01/04/19 10-325] Morphine Sulfate ER [Ms Contin] 15 mg PO Q12HR PRN 06/25/18 01/04/19 ARIPiprazole [Abilify] 5 mg PO DAILY 01/04/19 01/04/19 Albuterol Sulfate [Proair Hfa] 2 puff INHALATION RT-QID PRN 01/04/19 01/04/19 Bumetanide [BUMEX] 2 mg PO BID 01/04/19 01/04/19 Dialyvite 1 tab PO DAILY 01/04/19 01/04/19 Fluticasone Nasal [place] [Flonase 2 spr EA NOSTRIL DAILY 01/04/19 01/04/19 Nasal [place]] Fluticasone/Salmeterol [Advair 1 puff INHALATION RT-BID 01/04/19 01/04/19 250-50 Diskus] Insulin Aspart [NovoLOG Flexpen] 20 unit SQ AC-TID 01/04/19 01/04/19 Insulin Glargine,Hum.rec.anlog 20 unit SQ HS 01/04/19 01/04/19 [Basaglar Kwikpen U-100] Lubiprostone [Amitiza] 24 mcg PO BID 01/04/19 01/04/19 Metoprolol Tartrate [Lopressor] 150 mg PO BID 01/04/19 01/04/19 Nitroglycerin Sl Tabs [Nitrostat] 0.4 mg SUBLINGUAL Q5M PRN 01/04/19 01/04/19 Omeprazole [PriLOSEC] 20 mg PO DAILY 01/04/19 01/04/19 Pregabalin [Lyrica] 50 mg PO BID 01/04/19 01/04/19 Previous Rx's Medication Instructions Recorded Atorvastatin Calcium [Lipitor] 80 mg PO HS #30 tab 03/01/14 Lisinopril [Zestril] 40 mg PO DAILY #30 tab 06/15/18 hydrALAZINE HCL [Apresoline] 50 mg PO TID #90 tab 06/15/18 Docusate [Colace] 100 mg PO DAILY PRN cap 06/28/18 Ferrous Sulfate [Feosol] 325 mg PO TID #90 tab 06/28/18 Lactulose [Cephulac] 30 gm PO DAILY #1 bottle 06/28/18 Allergies Allergy/AdvReac Type Severity Reaction Status Date / Time No Known Allergies Allergy Verified 01/04/19 10:02 Review of Systems ROS Other: All systems not noted in ROS Statement are negative. <Allan Calle - Last Filed: 01/04/19 11:46> ROS Other: All systems not noted in ROS Statement are negative. <John Woo - Last Filed: 01/04/19 11:57> ROS Statement: Those systems with pertinent positive or pertinent negative responses have been documented in the HPI. Past Medical History Past Medical History: Coronary Artery Disease (CAD), Chest Pain / Angina, COPD, CVA/TIA, Diabetes Mellitus, GERD/Reflux, Hyperlipidemia, Hypertension, Liver Disease, Osteoarthritis (OA), Renal Disease, Respiratory Disorder, Sleep Apnea/CPAP/BIPAP Additional Past Medical History / Comment(s): Hx pancreatitis due to heavy alco hol use - no alcohol use in over 6 yrs, fatty liver, uses cpap, varicose veins bilaterally, chronic kidney disease due to diabetes on hemodialysis 3 times a week mon-wed-fri, chronic low platelets and usually needs platelets prior to surgical procedures, past peritoneal dialysis catheter being removed because was not functioning properly, CVA with R sided numbess, ARDS, past respiratory arrest/intubated and trached, past metabolic encephalopathy 2ndary to ESRD, pancareatitis,thrombocytopenia d/t splenomegaly, chronic back and cervical pain, cervical DDD with surgery/plate. History of Any Multi-Drug Resistant Organisms: None Reported Past Surgical History: Appendectomy, Back Surgery, Cholecystectomy, Heart Catheterization, Heart Catheterization With Stent Additional Past Surgical History / Comment(s): PCI with stents, tracheostomy, bladder stone removal, anterior cervical disc fusion/plate, jugular catheter insertion since removed, colonoscopy."dialysis graft site lt upper arm"-no bp or blood draw lt arm. Past Anesthesia/Blood Transfusion Reactions: No Reported Reaction Date of Last Stent Placement:: 2013 Past Psychological History: Anxiety, Depression Smoking Status: Former smoker - Past Family History Father Family Medical History: Coronary Artery Disease (CAD), Myocardial Infarction ([place]) Additional Family Medical History / Comment(s): Father of a [place] at the age of 65yrs. Mother Family Medical History: Coronary Artery Disease (CAD), Myocardial Infarction ([place]) Additional Family Medical History / Comment(s): Mother of a [place] at the age of 55yrs. Brother(s) Family Medical History: Cancer Daughter(s) Family Medical History: Vascular Disorder (VSD) <Allan Calle - Last Filed: 01/04/19 11:46> General Exam Limitations: no limitations General appearance: alert, in no apparent distress Head exam: Present: atraumatic, normocephalic, normal inspection Eye exam: Present: normal appearance, PERRL, EOMI. Absent: scleral icterus, conjunctival injection, periorbital swelling ENT exam: Present: normal exam, normal oropharynx, mucous membranes moist Neck exam: Present: normal inspection, full ROM. Absent: tenderness, meningismus, lymphadenopathy Respiratory exam: Present: normal lung sounds bilaterally. Absent: respiratory distress, wheezes, rales, rhonchi, stridor Cardiovascular Exam: Present: regular rate, normal rhythm, normal heart sounds. Absent: systolic murmur, diastolic murmur, rubs, gallop, clicks GI/Abdominal exam: Present: soft, normal bowel sounds. Absent: distended, tenderness, guarding, rebound, rigid Neurological exam: Present: alert, oriented X3, CN II-XII intact, reflexes normal, other (Finger to nose intact bilaterally without overshooting no focal weakness, mild tremors noted). Absent: motor sensory deficit Skin exam: Present: warm, dry, intact, normal color. Absent: rash <Allan Calle - Last Filed: 01/04/19 11:46> Course <John Woo - Last Filed: 01/04/19 11:57> Vital Signs 01/04/19 01/04/19 01/04/19 09:22 10:30 11:00 Temperature 99.5 F Pulse Rate 69 70 71 Respiratory 20 18 16 Rate Blood Pressure 119/52 135/63 113/69 O2 Sat by Pulse 98 96 98 Oximetry - Reevaluation(s) Reevaluation #1: 01/04/19 11:56 PA supervision: I proceeded [id number] evaluation the patient. He did go to dialysis today. He had tremors which she's had before. He felt or worse. He was instructed to come the emergency department and set up going to the dialysis Center. He was found have a potassium of 6.9. CT showed no definite acute changes. He was started on treatment for hyperkalemia. I did discuss the case with Dr. Ramirez. Patient be admitted with consultation by Dr. Garcia. Call back is pending (John Woo) EKG Findings - EKG Comments: EKG Findings:: EKG performed at 10:02 sinus rhythm with a rate of 69 ID 196 QRS 88 QT/QTC 342/462 <Allan Calle - Last Filed: 01/04/19 11:46> Medical Decision Making - Lab Data Result diagrams: 01/04/19 09:39 01/04/19 09:39 <Allan Calle - Last Filed: 01/04/19 11:46> - Lab Data Result diagrams: 01/04/19 09:39 01/04/19 09:39 <John Woo - Last Filed: 01/04/19 11:57> - Medical Decision Making 4-year-old male present emergency department for tremors, weakness. Patient did miss dialysis today. Patient found to have multiple underlying imbalances. Patient's tremoring was improved with Valium. Patient has been admitted for this in the past for mild clonus. Patient will be admitted for hyperkalemia, acute on chronic renal failure for dialysis and electrolyte imbalances. (Allan Calle) - Lab Data Lab Results 01/04/19 01/04/19 Range/Units 09:39 09:39 WBC 5.7 (3.8-10.6) k/uL RBC 2.78 L (4.30-5.90) m/uL Hgb 9.9 L (13.0-17.5) gm/dL Hct 27.2 L (39.0-53.0) % MCV 97.9 (80.0-100.0) fL MCH 35.7 H (25.0-35.0) pg MCHC 36.4 (31.0-37.0) g/dL RDW 17.8 H (11.5-15.5) % Plt Count 47 L (150-450) k/uL Neutrophils % 77 % Lymphocytes % 17 % Monocytes % 4 % Eosinophils % 1 % Basophils % 1 % Neutrophils # 4.3 (1.3-7.7) k/uL Lymphocytes # 1.0 (1.0-4.8) k/uL Monocytes # 0.2 (0-1.0) k/uL Eosinophils # 0.1 (0-0.7) k/uL Basophils # 0.0 (0-0.2) k/uL Manual Slide Review Performed Poikilocytosis Slight Anisocytosis Slight Macrocytosis Slight Sodium 134 L (137-145) mmol/L Potassium 6.9 H* (3.5-5.1) mmol/L Chloride 101 (98-107) mmol/L Carbon Dioxide 23 (22-30) mmol/L Anion Gap 10 mmol/L BUN 79 H (9-20) mg/dL Creatinine 7.75 H* (0.66-1.25) mg/dL Est GFR (CKD-EPI)AfAm 8 (>60 ml/min/1.73 sqM) Est GFR (CKD-EPI)NonAf 7 (>60 ml/min/1.73 sqM) Glucose 293 H (74-99) mg/dL Calcium 7.2 L (8.4-10.2) mg/dL Phosphorus 5.2 H (2.5-4.5) mg/dL Magnesium 2.0 (1.6-2.3) mg/dL Total Bilirubin 0.9 (0.2-1.3) mg/dL AST 15 L (17-59) U/L ALT 21 (21-72) U/L Alkaline Phosphatase 81 (38-126) U/L Total Protein 6.0 L (6.3-8.2) g/dL Albumin 3.8 (3.5-5.0) g/dL Disposition <Allan Calle - Last Filed: 01/04/19 11:46> <John Woo - Last Filed: 01/04/19 11:57> Clinical Impression: Hyperkalemia, Myoclonus, Acute on chronic renal failure, Hypocalcemia Disposition: ADMITTED IP TO THIS HOSP Condition: Fair Referrals: Gonzales Drew MD [Primary Care Provider] - 1-2 days
[2019-01-04 10:14] LABS: Albumin 3.8 g/dL (3.5-5.0); Calcium 7.2 mg/dL (8.4-10.2); Phosphorus 5.2 mg/dL (2.5-4.5); Total Bilirubin 0.9 mg/dL (0.2-1.3)
[2019-01-04 10:21] LABS: Potassium 6.9 mmol/L (3.5-5.1)
[2019-01-04 10:29] LABS: Anisocytosis Slight; Basophils % (A) 1 %; Eosinophils # (A) 0.1 k/uL (0-0.7); Eosinophils % (A) 1 %; HCT 27.2 % (39.0-53.0); HGB 9.9 gm/dL (13.0-17.5); Lymphocytes % (A) 17 %; MCH 35.7 pg (25.0-35.0); MCHC 36.4 g/dL (31.0-37.0); MCV 97.9 fL (80.0-100.0); Macrocytosis Slight; Mean Platelet Volume 9.9; Monocytes # (A) 0.2 k/uL (0-1.0); Monocytes % (A) 4 %; Neutrophils # (A) 4.3 k/uL (1.3-7.7); Neutrophils % (A) 77 %; Poikilocytosis Slight; RBC 2.78 m/uL (4.30-5.90); RDW 17.8 % (11.5-15.5); WBC 5.7 k/uL (3.8-10.6)
--- NOTE | 2019-01-04 10:39 | CT ---
EXAMINATION TYPE: CT brain wo con DATE OF EXAM: 01/04/2019 COMPARISON: Prior exam 06/07/2018 HISTORY: Tremors, weakness and headache today. CT DLP: 2516.4 mGycm Automated exposure control for dose reduction was used. Helical imaging through the brain. FINDINGS: There is some artifact, motion present. Cortical atrophy is present. There is no hemorrhage or hydrocephalus. Periventricular white matter lo w-attenuation is present. Cerebral vascular calcifications are noted. Orbits show symmetric appearanc e. Calvarium is intact. IMPRESSION: NO ACUTE ABNORMALITIES EVIDENT.
--- NOTE | 2019-01-04 10:40 | XR ---
EXAMINATION TYPE: XR chest 2V DATE OF EXAM: 01/04/2019 COMPARISON: 06/25/2018 HISTORY: 58-year-old male with weakness TECHNIQUE: AP and lateral views FINDINGS: Heart normal size. Aortopulmonary vasculature within normal limits. Some central peribronchial cuffin g is present. No consolidation or pleural effusion. ACDF hardware. IMPRESSION: Some central peribronchial cuffing could reflect bronchitis or asthma. No focal infiltrate.
[2019-01-04 10:55] LABS: Platelet Count 47 k/uL (150-450)
[2019-01-04] MEDS ORDERED: INSULIN REGULAR 100 UNIT/ML VIAL IV ONE (11:13)
[2019-01-04] MEDS ORDERED: DEXTROSE 50% SYRINGE 50 ML IVP STA (11:13)
[2019-01-04] MEDS ORDERED: CALCIUM GLUCONATE 1 GM in SODIUM CHLORIDE 0.9% 100 ML IVPB ONE (11:13)
[2019-01-04] MEDS ORDERED: ALBUTEROL NEBULIZED 2.5 MG/3 ML INHALATION STA (11:14)
[2019-01-04] MEDS ORDERED: LORazepam 2 MG/ML INJ IV PRN (11:47)
[2019-01-04] MEDS ORDERED: NALOXONE 0.4 MG/ML 1 ML VIAL IV PRN (11:47)
[2019-01-04] MEDS ORDERED: ACETAMINOPHEN TAB 325 MG TAB PO PRN (11:47)
[2019-01-04 12:15] LABS: Glucose,Whole Blood 224 mg/dL (75-99)
[2019-01-04 12:53] LABS: Glucose,Whole Blood 216 mg/dL (75-99)
[2019-01-04 13:46] VITALS: BMI 29.0
[2019-01-04] MEDS ORDERED: ALPRAZolam 0.25 MG TAB PO PRN (15:41)
[2019-01-04] MEDS ORDERED: DOCUSATE 100 MG CAP PO PRN (15:41)
[2019-01-04] MEDS ORDERED: MORPHINE SULFATE ER 15 MG TABLET PO PRN (15:41)
[2019-01-04] MEDS ORDERED: SODIUM POLYSTYRENE SULFONATE 15 GM/60 ML BOTTLE PO STA (15:47)
--- NOTE | 2019-01-04 15:59 | P.HPIM ---
History of Present Illness H&P Date: 01/04/19 This is a 57 Year-Old male one of Dr.Kut Dr. 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 Followed by another admission for acute change in mental status, increased weakness worsening shortness of breath and cough. Patient was treated for sepsis, pancytopenia requiring transfusions, acute hypoxic hypercarbic respiratory failure requiring intubation secondary to fluid overload, acute on chronic systolic heart failure, possible gram-negative pneumonia that could not be ruled out during that admission. Patient had a prolonged course and was finally discharged on 06/15. He was last seen in June 2018 with pancytopenia secondary to chronic liver disease with bone marrow suppression from chronic alcohol use. He was seen by Dr. Sanchez for esophageal varices and underlying possible cirrhosis as nodularity was noted on the liver with thrombocytopenia from hypersplenism. Patient was supposed to get EGD and colonoscopy in 06-07 and was evaluated for possible kidney transplant. Patient comes in to the ER for increased weakness and worsening of tremors in bilateral upper extremities. He underwent dialysis session on Friday and was doing well until yesterday when the tremors worsened. He went to dialysis Center where he was sent to the ER for evaluation. Labs done ER Leukocytosis of 5.7 hemoglobin 9.9 platelet count of 47. BNP suggest a potassium of 6.9, sodium 134, creatinine 7.75 BUN 79 Satish of 293 phosphorous of 5.2 and calcium 7.2. She received albuterol and D50 with 10 units of insulin for hyperkalemia and 1 g of calcium clinic clinic. Received 2.5 mg of Valium for tremors. Nephrology is being consulted for hyperkalemia. Ammonia level was ordered which was less than 9. Patient's presentation appears to be related to uremia. EEG ordered to rule out uremic encephalopathy. Review of Systems Constitutional: Denies chills, Denies fever, increased lethargy, Denies poor appetite, Denies weight loss Eyes: denies decreased vision, denies diplopia, denies discharge, denies pain Ears: deny: decreased hearing Ears, nose, mouth and throat: Denies dental pain, Denies headache, Denies nasal discharge, Denies nose pain Cardiovascular: Denies chest pain, Denies decreased exercise tolerance, Denies edema, Denies high blood pressure, Denies irregular heart beat, Denies palpitations, Denies paroxysmal nocturnal dyspnea, Denies rapid heart beat, Denies shortness of breath Respiratory: Denies congestion, Denies cough, Denies cough with sputum, Denies dyspnea, Denies home oxygen, Denies wheezing Gastrointestinal: Denies abdominal pain, Denies change in bowel habits, Denies coffee ground emesis, Denies early satiety, Denies excessive gas, Denies heartburn, Denies hematemesis, Denies hematochezia, Denies loss of appetite, Denies nausea, Denies vomiting Genitourinary: Denies dysuria, Denies flank pain, Denies kidney stones, Denies menorrhagia, Denies urgency, Denies urinary frequency Musculoskeletal: Significant shoulder pain bilaterally from previous rotator cuff injuries Denies morning stiffness, Denies muscle cramps Integumentary: Denies rash, Denies wounds, Denies brittle nails, Denies change in hair/nails, Denies darkening of skin Neurological: Denies balance difficulties, Denies change in speech, Denies d ouble vision, Denies gait dysfunction, Denies loss of vision, Denies motor disturbance, endorses numbness in the right upper extremity from previous stroke, Denies paralysis, Denies paresthesias, Denies seizures Psychiatric: Denies anxiety, Denies depression Endocrine: Denies excessive sweating, Denies excessive thirst, Denies high blood sugars, Denies palpitations Hematologic/Lymphatic: Denies easy bruising, Denies lymphadenopathy 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 - no alcohol use in over 7 yrs, fatty liver, pt states he doesn't use his cpap very much, varicose veins bilaterally, IDDM type II, neuropathy bilateral feet, chronic kidney disease due to diabetes on hemodialysis 3 times a week mon-wed-fri, chronic low platelets and usually needs platelets prior to surgical procedures, past peritoneal dialysis catheter being removed because was not functioning properly, CVA with R sided numbess, ARDS, past respiratory arrest/intubated and trached, past metabolic encephalopathy 2ndary to ESRD, sepsis, thrombocytopenia d/t splenomegaly, chronic anemia, chronic back and cervical pain, current bilateral shoulder pain-pt no longer uses his L arm much, cervical DDD with surgery/plate, previously treated for involuntary dystonia 2ndary to Abilify being used to treat uremia. History of Any Multi-Drug Resistant Organisms: None Reported Past Surgical History: Appendectomy, Back Surgery, Cholecystectomy, Heart Catheterization, Heart Catheterization With Stent Additional Past Surgical History / Comment(s): PCI with stents, tracheostomy, bladder stone removal, anterior cervical disc fusion/plate, jugular catheter insertion since removed, colonoscopy."dialysis graft site lt upper arm"-no bp or blood draw lt arm, peritoneal catheter-since removed. Past Anesthesia/Blood Transfusion Reactions: No Reported Reaction Date of Last Stent Placement:: 2013 Smoking Status: Former smoker - Past Family History Father Family Medical History: Coronary Artery Disease (CAD), Myocardial Infarction (IN) Additional Family Medical History / Comment(s): Father of a IN at the age of 65yrs. Mother Family Medical History: Coronary Artery Disease (CAD), Myocardial Infarction (IN) Additional Family Medical History / Comment(s): Mother of a IN at the age of 55yrs. Brother(s) Family Medical History: Cancer Daughter(s) Family Medical History: Vascular Disorder (VSD) Medications and Allergies Home Medications Medication Instructions Recorded Confirmed Type Atorvastatin Calcium [Lipitor] 80 mg PO HS #30 tab 03/01/14 01/04/19 Rx ALPRAZolam [Xanax] 0.25 mg PO HS PRN 06/04/18 01/04/19 History Diltiazem HCl [Diltiazem 24Hr ER 180 mg PO DAILY 06/04/18 01/04/19 History (CD)] HYDROcodone/APAP 10-325MG [[place] 1 tab PO TID 10/11/18 05/13/19 History 10-325] Lisinopril [Zestril] 40 mg PO DAILY #30 tab 06/15/18 01/04/19 Rx hydrALAZINE HCL [Apresoline] 50 mg PO TID #90 tab 06/15/18 01/04/19 Rx Morphine Sulfate ER [Ms Contin] 15 mg PO Q12HR PRN 06/25/18 01/04/19 History Docusate [Colace] 100 mg PO DAILY PRN cap 06/28/18 01/04/19 Rx Ferrous Sulfate [Feosol] 325 mg PO TID #90 tab 06/28/18 01/04/19 Rx Lactulose [Cephulac] 30 gm PO DAILY #1 bottle 06/28/18 01/04/19 Rx ARIPiprazole [Abilify] 5 mg PO DAILY 01/04/19 01/04/19 History Albuterol Sulfate [Proair Hfa] 2 puff INHALATION RT-QID PRN 01/04/19 01/04/19 History Bumetanide [BUMEX] 2 mg PO BID 01/04/19 01/04/19 History Dialyvite 1 tab PO DAILY 01/04/19 01/04/19 History Fluticasone Nasal [place] [Flonase 2 spr EA NOSTRIL DAILY 01/04/19 01/04/19 History Nasal [place]] Fluticasone/Salmeterol [Advair 1 puff INHALATION RT-BID 01/04/19 01/04/19 History 250-50 Diskus] Insulin Aspart [NovoLOG Flexpen] 20 unit SQ AC-TID 01/04/19 01/04/19 History Insulin Glargine,Hum.rec.anlog 20 unit SQ HS 01/04/19 01/04/19 History [Basaglar Kwikpen U-100] Lubiprostone [Amitiza] 24 mcg PO BID 01/04/19 01/04/19 History Metoprolol Tartrate [Lopressor] 150 mg PO BID 01/04/19 01/04/19 History Nitroglycerin Sl Tabs [Nitrostat] 0.4 mg SUBLINGUAL Q5M PRN 01/04/19 01/04/19 History Omeprazole [PriLOSEC] 20 mg PO DAILY 01/04/19 01/04/19 History Pregabalin [Lyrica] 50 mg PO BID 01/04/19 01/04/19 History Allergies Allergy/AdvReac Type Severity Reaction Status Date / Time No Known Allergies Allergy Verified 01/04/19 10:02 Physical Exam Vitals: Vital Signs Temp Pulse Pulse Resp BP BP Pulse Ox 01/04/19 12:45 97.6 F 72 18 129/64 96 01/04/19 12:15 72 01/04/19 12:04 72 01/04/19 12:00 98.2 F 66 15 160/82 01/04/19 11:30 71 16 157/82 01/04/19 11:00 71 16 113/69 98 01/04/19 10:30 70 18 135/63 96 01/04/19 09:22 99.5 F 69 20 119/52 98 Intake and Output 01/04/19 01/04/19 01/04/19 06:59 14:59 22:59 Other: Weight 94.529 kg - Constitutional General appearance: cooperative, no acute distress, obese - EENT Eyes: anicteric sclerae, PERRLA, normal appearance ENT: hearing grossly normal - Neck Neck: no lymphadenopathy, normal ROM, no other, no rigidity, no stridor, no thyromegaly - Respiratory Respiratory: bilateral: CTA, negative: diminished, dullness, rales, rhonchi - Cardiovascular Rhythm: regular Heart sounds: normal: S1, S2 Abnormal Heart Sounds: no systolic murmur, no diastolic murmur, no rub, no S3 Gallop, no S4 Gallop, no click, no other - Gastrointestinal General gastrointestinal: normal bowel sounds, soft nontender - Integumentary Integumentary: no rash - Neurologic Neurologic: CNII-XII intact tremor noted in the upper extremity - Musculoskeletal Musculoskeletal: gait not assessed, strength equal bilaterally some numbness noted in the right upper extremity - Psychiatric Psychiatric: A&O x's 3, appropriate affect Results CBC & Chem 7: 01/04/19 09:39 01/04/19 09:39 Labs: Abnormal Lab Results - Last 24 Hours (Table) 01/04/19 01/04/19 01/04/19 Range/Units 09:39 09:39 12:09 RBC 2.78 L (4.30-5.90) m/uL Hgb 9.9 L (13.0-17.5) gm/dL Hct 27.2 L (39.0-53.0) % MCH 35.7 H (25.0-35.0) pg RDW 17.8 H (11.5-15.5) % Plt Count 47 L (150-450) k/uL Sodium 134 L (137-145) mmol/L Potassium 6.9 H* (3.5-5.1) mmol/L BUN 79 H (9-20) mg/dL Creatinine 7.75 H* (0.66-1.25) mg/dL Glucose 293 H (74-99) mg/dL POC Glucose (mg/dL) 224 H (75-99) mg/dL Calcium 7.2 L (8.4-10.2) mg/dL Phosphorus 5.2 H (2.5-4.5) mg/dL AST 15 L (17-59) U/L Total Protein 6.0 L (6.3-8.2) g/dL 01/04/19 Range/Units 12:50 RBC (4.30-5.90) m/uL Hgb (13.0-17.5) gm/dL Hct (39.0-53.0) % MCH (25.0-35.0) pg RDW (11.5-15.5) % Plt Count (150-450) k/uL Sodium (137-145) mmol/L Potassium (3.5-5.1) mmol/L BUN (9-20) mg/dL Creatinine (0.66-1.25) mg/dL Glucose (74-99) mg/dL POC Glucose (mg/dL) 216 H (75-99) mg/dL Calcium (8.4-10.2) mg/dL Phosphorus (2.5-4.5) mg/dL AST (17-59) U/L Total Protein (6.3-8.2) g/dL Thrombosis Risk Factor Assmnt - DVT/VTE Prophylaxis DVT/VTE Prophylaxis: Mechanical Prophylaxis ordered - Choose All That Apply Any of the Below Risk Factors Present?: Yes Each Factor Represents 1 point: Age 41-60 years, Obesity (BMI >25) Other Risk Factors: No Other congenital or acquired thrombophilia - If yes, enter type in comment: No Thrombosis Risk Factor Assessment Total Risk Factor Score: 2 Thrombosis Risk Factor Assessment Level: Low Risk Assessment and Plan Plan: #1 acute tremors likely uremic has history of dystonia in the past which was noted to be related to Abilify versus uremia. Dialysis today we'll evaluate for persistent tremor tomorrow. EEG ordered to rule out uremic encephalopathy ammonia levels are normal ruled out hepatic encephalopathy #2 hyperkalemia secondary to end-stage kidney disease. Status post albuterol and D50 with insulin. One dose of Kayexalate given #3 anemia of chronic disease likely secondary to chronic liver disease secondary to alcohol abuse in the past #4 thrombocytopenia with splenomegaly which is likely alcohol related stable #52 diabetes insulin-dependent HbA1c ordered. Continue insulin 20 units 3 times a day with basiglar 20 units at bedtime continue insulin sliding scale #6 diabetic neuropathy continue Lyrica 50 mg twice a day #7 systolic congestive heart failure continue lisinopril 40 mg by mouth daily, Lipitor 80, Bumex 2 mg twice a day continue metoprolol 150 twice a day hold Cardizem on discharge #8 end-stage renal disease on hemodialysis Friday will have dialysis today #9 hypocalcemia status post calcium gluconate. Calcium carbonate 3 times a day #10 history of coronary artery disease status post stent in 2013 continue Lipitor, metoprolol #11 history of chronic splenic vein thrombosis secondary to recurrent pancreatitis no episode of bleeding #12 history of recurrent pancreatitis secondary to alcohol abuse and episodes #13 history of CVA with right upper extremity numbness continue Lipitor 80 #14 Hyperlipidemia continue Lipitor 80 #15 Hypertension continue hydralazine, lisinopril and metoprolol #16 alcohol-induced liver disease stable #17 DVT prophylaxis with SCDs as patient has thrombocytopenia #18 GI prophylaxis omeprazole 20 mg by mouth daily #19 CODE STATUS full code #20 COPD continue Advair Diskus DuoNeb as needed for shortness of breath #21 GERD continue omeprazole 20 disposition patient will require 1-2 days inpatient nights for medical management
[2019-01-04 17:07] LABS: Glucose,Whole Blood 190 mg/dL (75-99)
[2019-01-04] MEDS: HYDROcodone/APAP 10-325MG 1 EACH TAB PO SCH ×2 (17:09→23:55)
[2019-01-04] MEDS: CALCIUM CARBONATE 500 MG CHEWABLE PO SCH ×2 (17:10→20:28)
[2019-01-04] MEDS: FERROUS SULFATE 325 MG TAB PO SCH ×2 (17:10→20:29)
[2019-01-04] MEDS: hydrALAZINE HCL 50 MG TAB PO SCH ×2 (17:10→20:28)
[2019-01-04] MEDS: INSULIN ASPART (NovoLOG) 100 UNIT/ML VIAL SQ SCH (17:11)
[2019-01-04] MEDS: BUMETANIDE 1 MG TAB PO SCH (17:18)
[2019-01-04 20:25] LABS: Glucose,Whole Blood 245 mg/dL (75-99)
[2019-01-04] MEDS: INSULIN DETEMIR (LEVEMIR) 100 UNIT/ML SYR SQ SCH (20:28)
[2019-01-04] MEDS: PREGABALIN 50 MG CAP PO SCH (20:28)
[2019-01-04] MEDS: METOPROLOL TARTRATE 50 MG TAB PO SCH (20:28)
[2019-01-04] MEDS: ATORVASTATIN 80 MG TAB PO SCH (20:29)
[2019-01-04] MEDS: SYMBICORT 80-4.5 MCG INHALER INHALATION SCH (20:48)
[2019-01-05 06:27] LABS: Glucose,Whole Blood 142 mg/dL (75-99)
[2019-01-05] MEDS: PANTOPRAZOLE 40 MG TABLET PO SCH (06:54)
[2019-01-05] MEDS: INSULIN ASPART (NovoLOG) 100 UNIT/ML VIAL SQ SCH ×3 (07:33→17:42)
[2019-01-05] MEDS: ARIPiprazole 5 MG TAB PO SCH (08:42)
[2019-01-05] MEDS: HYDROcodone/APAP 10-325MG 1 EACH TAB PO SCH ×3 (08:42→22:04)
[2019-01-05] MEDS: CALCIUM CARBONATE 500 MG CHEWABLE PO SCH ×3 (08:43→20:40)
[2019-01-05] MEDS: METOPROLOL TARTRATE 50 MG TAB PO SCH ×2 (08:43→20:40)
[2019-01-05] MEDS: LISINOPRIL 20 MG TAB PO SCH (08:43)
[2019-01-05] MEDS: FOLIC ACID-VIT B COMPLEX-VIT C 1 CAP PO SCH (08:43)
[2019-01-05] MEDS: FERROUS SULFATE 325 MG TAB PO SCH ×3 (08:43→20:40)
[2019-01-05] MEDS: LACTULOSE 20 GM/30 ML CUP PO SCH (08:43)
[2019-01-05] MEDS: hydrALAZINE HCL 50 MG TAB PO SCH ×3 (08:43→20:40)
[2019-01-05] MEDS: PREGABALIN 50 MG CAP PO SCH (08:43)
[2019-01-05] MEDS: FLUTICASONE 50MCG/SPRAY NASAL 16GM EA NOSTRIL SCH (08:44)
[2019-01-05] MEDS: BUMETANIDE 1 MG TAB PO SCH ×2 (08:46→15:23)
[2019-01-05] MEDS: SYMBICORT 80-4.5 MCG INHALER INHALATION SCH ×2 (08:57→20:23)
[2019-01-05 10:16] LABS: Calcium 7.8 mg/dL (8.4-10.2); Potassium 5.3 mmol/L (3.5-5.1)
[2019-01-05 10:47] LABS: Anisocytosis Slight; HCT 28.2 % (39.0-53.0); HGB 9.9 gm/dL (13.0-17.5); MCH 34.6 pg (25.0-35.0); MCHC 35.2 g/dL (31.0-37.0); MCV 98.3 fL (80.0-100.0); Macrocytosis Slight; Mean Platelet Volume 9.1; Poikilocytosis Slight; RBC 2.87 m/uL (4.30-5.90); RDW 17.2 % (11.5-15.5); WBC 3.7 k/uL (3.8-10.6)
[2019-01-05 10:49] LABS: Platelet Count 38 k/uL (150-450)
[2019-01-05 11:32] LABS: Glucose,Whole Blood 239 mg/dL (75-99)
[2019-01-05] MEDS: CITALOPRAM HYDROBROMIDE 10 MG TAB PO SCH (11:50)
--- NOTE | 2019-01-05 15:30 | P.PN ---
Subjective Progress Note Date: 01/05/19 This is a 57 Year-Old male one of Dr.Kut Dr. 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 Followed by another admission for acute change in mental status, increased weakness worsening shortness of breath and cough. Patient was treated for sepsis, pancytopenia requiring transfusions, acute hypoxic hypercarbic respiratory failure requiring intubation secondary to fluid overload, acute on chronic systolic heart failure, possible gram-negative pneumonia that could not be ruled out during that admission. Patient had a prolonged course and was finally discharged on 06/15. He was last seen in June 2018 with pancytopenia secondary to chronic liver disease with bone marrow suppression from chronic alcohol use. He was seen by Dr. Sanchez for esophageal varices and underlying possible cirrhosis as nodularity was noted on the liver with thrombocytopenia from hypersplenism. Patient was supposed to get EGD and colonoscopy in 06-07 and was evaluated for possible kidney transplant. Patient comes in to the ER for increased weakness and worsening of tremors in bilateral upper extremities. He underwent dialysis session on Friday and was doing well until yesterday when the tremors worsened. He went to dialysis Center where he was sent to the ER for evaluation. Labs done ER Leukocytosis of 5.7 hemoglobin 9.9 platelet count of 47. BNP suggest a potassium of 6.9, sodium 134, creatinine 7.75 BUN 79 Satish of 293 phosphorous of 5.2 and calcium 7.2. She received albuterol and D50 with 10 units of insulin for hyperkalemia and 1 g of calcium clinic clinic. Received 2.5 mg of Valium for tremors. Nephrology is being consulted for hyperkalemia. Ammonia level was ordered which was less than 9. Patient's presentation appears to be related to uremia. EEG ordered to rule out uremic encephalopathy. 01/05: Patient's is at bedside. She is concerned the patient has depression and is seeing a therapist but no medication adjustments have been made. He has stated that he would be willing to . He is not suicidal and would not hurt himself but if it happened he would be okay with that. He is eating and drinking okay. She states he sleeps all the time. When asked, the patient does state that he is depressed. Patient has been on Abilify and we will add in citalopram. Patient's states that Lyrica seems to make his tremors worsen will be Discontinued completely. Tremors are much improved from yesterday. Regarding cirrhosis of the liver, patient has had a biopsy done at [facility] that was negative for cirrhosis. This was done approximate 6-7 months ago. He was also scheduled for colonoscopy and EGD but developed atrial fibrillation and up at [facility] for a week. Patient has been afebrile, blood pressure 166/72, pulse ox 93% on room air, heart rate 80. Repeat lab work reveals sodium 139, potassium 5.3, chloride 102, CO2 28, BUN 44 and creatinine 4.37. Review of Systems Constitutional: Denies chills, Denies fever, increased lethargy, Denies poor appetite, Denies weight loss Eyes: denies decreased vision, denies diplopia, denies discharge, denies pain Ears: deny: decreased hearing Ears, nose, mouth and throat: Denies dental pain, Denies headache, Denies nasal discharge, Denies nose pain Cardiovascular: Denies chest pain, Denies decreased exercise tolerance, Denies edema, Denies high blood pressure, Denies irregular heart beat, Denies palpitations, Denies paroxysmal nocturnal dyspnea, Denies rapid heart beat, Denies shortness of breath Respiratory: Denies congestion, Denies cough, Denies cough with sputum, Denies dyspnea, Denies home oxygen, Denies wheezing Gastrointestinal: Denies abdominal pain, Denies change in bowel habits, Denies coffee ground emesis, Denies early satiety, Denies excessive gas, Denies heartburn, Denies hematemesis, Denies hematochezia, Denies loss of appetite, Denies nausea, Denies vomiting Genitourinary: Denies dysuria, Denies flank pain, Denies kidney stones, Denies menorrhagia, Denies urgency, Denies urinary frequency Musculoskeletal: Significant shoulder pain bilaterally from previous rotator cuff injuries Denies morning stiffness, Denies muscle cramps Integumentary: Denies rash, Denies wounds, Denies brittle nails, Denies change in hair/nails, Denies darkening of skin Neurological: Denies balance difficulties, Denies change in speech, Denies double vision, Denies gait dysfunction, Denies loss of vision, Denies motor disturbance, endorses numbness in the right upper extremity from previous stroke, Denies paralysis, Denies paresthesias, Denies seizures Psychiatric: Denies anxiety, reports depression Endocrine: Denies excessive sweating, Denies excessive thirst, Denies high blood sugars, Denies palpitations Hematologic/Lymphatic: Denies easy bruising, Denies lymphadenopathy Objective - Vital Signs Vital signs: Vital Signs Temp 97.8 F 01/05/19 03:48 Pulse 71 01/05/19 03:48 Resp 18 01/05/19 03:48 BP 148/72 01/05/19 03:48 Pulse Ox 99 01/05/19 03:48 Intake & Output 01/04/19 01/05/19 01/05/19 18:59 06:59 18:59 Intake Total 480 100 240 Output Total 2000 800 Balance -1520 -700 240 Weight 94.529 kg 91.9 kg Intake: Oral 480 100 240 Output: Urine 800 Hemodialysis 2000 Other: # Voids 1 - Exam General appearance: cooperative, no acute distress, obese, patient's is at bedside. - EENT Eyes: anicteric sclerae, PERRLA, normal appearance ENT: hearing grossly normal - Neck Neck: no lymphadenopathy, normal ROM, no other, no rigidity, no stridor, no thyr omegaly - Respiratory Respiratory: bilateral: CTA, negative: diminished, dullness, rales, rhonchi - Cardiovascular Rhythm: regular Heart sounds: normal: S1, S2 Abnormal Heart Sounds: no systolic murmur, no diastolic murmur, no rub, no S3 Gallop, no S4 Gallop, no click, no other - Gastrointestinal General gastrointestinal: normal bowel sounds, soft nontender - Integumentary Integumentary: no rash - Neurologic Neurologic: CNII-XII intact tremor noted in the upper extremity - Musculoskeletal Musculoskeletal: gait not assessed, strength equal bilaterally some numbness noted in the right upper extremity - Psychiatric Psychiatric: A&O x's 3, appropriate affect - Labs CBC & Chem 7: 01/05/19 09:28 01/05/19 09:28 Labs: Abnormal Lab Results - Last 24 Hours (Table) 01/04/19 01/04/19 01/04/19 Range/Units 09:39 09:39 12:09 RBC 2.78 L (4.30-5.90) m/uL Hgb 9.9 L (13.0-17.5) gm/dL Hct 27.2 L (39.0-53.0) % MCH 35.7 H (25.0-35.0) pg RDW 17.8 H (11.5-15.5) % Plt Count 47 L (150-450) k/uL Sodium 134 L (137-145) mmol/L Potassium 6.9 H* (3.5-5.1) mmol/L BUN 79 H (9-20) mg/dL Creatinine 7.75 H* (0.66-1.25) mg/dL Glucose 293 H (74-99) mg/dL POC Glucose (mg/dL) 224 H (75-99) mg/dL Calcium 7.2 L (8.4-10.2) mg/dL Phosphorus 5.2 H (2.5-4.5) mg/dL AST 15 L (17-59) U/L Total Protein 6.0 L (6.3-8.2) g/dL 01/04/19 01/04/19 01/04/19 Range/Units 12:50 16:51 20:24 RBC (4.30-5.90) m/uL Hgb (13.0-17.5) gm/dL Hct (39.0-53.0) % MCH (25.0-35.0) pg RDW (11.5-15.5) % Plt Count (150-450) k/uL Sodium (137-145) mmol/L Potassium (3.5-5.1) mmol/L BUN (9-20) mg/dL Creatinine (0.66-1.25) mg/dL Glucose (74-99) mg/dL POC Glucose (mg/dL) 216 H 190 H 245 H (75-99) mg/dL Calcium (8.4-10.2) mg/dL Phosphorus (2.5-4.5) mg/dL AST (17-59) U/L Total Protein (6.3-8.2) g/dL 01/05/19 Range/Units 06:26 RBC (4.30-5.90) m/uL Hgb (13.0-17.5) gm/dL Hct (39.0-53.0) % MCH (25.0-35.0) pg RDW (11.5-15.5) % Plt Count (150-450) k/uL Sodium (137-145) mmol/L Potassium (3.5-5.1) mmol/L BUN (9-20) mg/dL Creatinine (0.66-1.25) mg/dL Glucose (74-99) mg/dL POC Glucose (mg/dL) 142 H (75-99) mg/dL Calcium (8.4-10.2) mg/dL Phosphorus (2.5-4.5) mg/dL AST (17-59) U/L Total Protein (6.3-8.2) g/dL Assessment and Plan Plan: #1 acute tremors secondary to Lyrica which will be discontinued. EEG ordered to rule out uremic encephalopathy. #2 hyperkalemia secondary to end-stage kidney disease. Status post calcium gluconate and D50 with insulin. One dose of Kayexalate given. Continue to . Follow GI on consult. #3 anemia of chronic disease likely secondary to chronic liver disease secondary to alcohol abuse in the past #4 thrombocytopenia with splenomegaly which is likely alcohol related stable #52 diabetes insulin-dependent HbA1c ordered. Continue insulin 20 units 3 times a day with basiglar 20 units at bedtime continue insulin sliding scale #6 diabetic neuropathy. Lyrica discontinued #7 chronic systolic congestive heart failure continue lisinopril 40 mg by mouth daily, Lipitor 80, Bumex 2 mg twice a day continue metoprolol 150 twice a day hold Cardizem on discharge #8 end-stage renal disease on hemodialysis Friday #9 hypocalcemia status post calcium gluconate. 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 Recurrent depression. Patient is continued on Abilify and citalopram 10 mg daily added. 23. Episode of paroxysmal atrial fibrillation at [facility]. Discharge plan: Most likely return home Impression and plan of care have been directed as dictated by the signing physician. Iram Love nurse practitioner acting as scribe for signing physician.
--- NOTE | 2019-01-05 16:25 | EEG ---
ELECTROENCEPHALOGRAM REPORT DATE OF PROCEDURE: 01/05/2019. ELECTROENCEPHALOGRAM (EEG): TECHNIQUE: A routine 18-channel EEG was performed with video using the 10/20 international electrode placement system. HISTORY: Acute and chronic renal failure, hyperkalemia. The patient presented to the emergency room with increased weakness and worsening tremors. CURRENT MEDICATIONS: 1. Protonix. 2. Nephrocaps. 3. Morphine. 4. Lopressor. 5. Ativan. 6. Zestril. STUDY DURATION: 24 minutes. FINDINGS: BACKGROUND: The background activity consisted of 7-8 Hz rhythmic waveforms symmetrically distributed over both posterior quadrants. ACTIVATION: Hyperventilation: Not performed. Photic stimulation: No driving seen. Sleep: Stages I and II of sleep noted. A mild excess of beta frequency activity was noted. This is not epileptiform in nature and may in part be due to medication effect. ABNORMALITIES: Intermittent diffuse 5-7 Hz polymorphic theta range slowing was seen. IMPRESSION: Abnormal EEG. The intermittent diffuse theta range slowing mentioned above is not epileptiform in nature. In combination with the slow background, these findings indicate mild diffuse cerebral dysfunction which may in part be due to medication effect. No seizures were recorded. No epileptiform activity was present. These findings were called to the patient's nurse at 3:50 p.m. on 01/05/2019. MMODL / IJN: [id number] /
[2019-01-05 16:33] LABS: Glucose,Whole Blood 158 mg/dL (75-99)
[2019-01-05] MEDS: INSULIN DETEMIR (LEVEMIR) 100 UNIT/ML SYR SQ SCH ×2 (20:40→20:59)
[2019-01-05] MEDS: ATORVASTATIN 80 MG TAB PO SCH (20:40)
[2019-01-05 20:58] LABS: Glucose,Whole Blood 80 mg/dL (75-99)
--- NOTE | 2019-01-06 04:09 | CONS ---
CONSULTATION REASON FOR CONSULT: End-stage renal disease. Patient is a 58-year-old male who was admitted to the hospital with complaints of weakness. He missed his dialysis as outpatient. He has also noticed tremors in his upper extremities. patient states he was started on Lyrica recently for neuropathy. He had held the Lyrica for about 2 days and then it was restarted. When patient came in, his potassium was elevated at 6.9 mEq/L. He was dialyzed last night. He received his full treatment. This morning his potassium is down to 5.3 mEq/L. Patient states his tremors are slightly better but still present. He remains off of the Lyrica. PAST MEDICAL HISTORY: 1. End-stage renal disease, on hemodialysis at [facility] on a Friday, Friday, Friday schedule. 2. History of coronary artery disease. 3. Hypertension. 4. CKD. 5. Mineral bone disorder. 6. Diabetic neuropathy. 7. History of pancreatitis. 8. Splenomegaly with thrombocytopenia. 9. Obstructive sleep apnea. 10.History of pancreatitis secondary to ETOH abuse. 11.History of vent-dependent respiratory failure. 12.History of dystonia related to Abilify. PAST SURGICAL HISTORY: 1. Appendectomy. 2. PermCath placement and removal. 3. Cardiac catheterization. 4. AV fistula. 5. Previous PD catheter placement and removal. SOCIAL HISTORY: Negative for smoking. Patient is a former smoker. No history of drug abuse or alcohol abuse. MEDICATIONS: Medications prior to admission included: 1. Lipitor. 2. Xanax. 3. Cardizem. 4. Zestril. 5. Hydralazine. 6. Morphine. 7. Colace. 8. Iron. 9. Abilify. 10.Bumex. 11.Flonase. 12.Amitiza. 13.Lopressor. 14.Prilosec. 15.Lyrica. ALLERGIES: NONE. Intolerance to Abilify previously. PHYSICAL EXAMINATION: Patient is currently comfortable, awake, not in any acute distress. This morning when patient was seen, blood pressure was 166/72, heart rate of 68 per minute. He was afebrile. EXAMINATION OF THE HEART: S1 and S2. EXAMINATION OF LUNGS: Bilateral breath sounds are heard. ABDOMEN: Soft, non-tender. Examination of lower extremities shows no significant edema. Occasional jerky movements are noted in the upper extremities. LABS: Sodium 139, potassium 5.3, hemoglobin 9.9, BUN 44, serum creatinine 4.37. ASSESSMENT: 1. End-stage renal disease, on hemodialysis, maintained on a Friday, Friday, Friday schedule, status post dialysis yesterday. Patient has an AV graft. 2. Hyperkalemia, currently improved. Patient did state that he cut his treatment short on Friday last week. 3. Anemia of chronic disease. 4. Jerky movements, upper extremities. Continue to hold off on Lyrica for now. 5. Chronic thrombocytopenia with hypersplenism and splenomegaly. 6. History of ethanol abuse. 7. Chronic kidney disease mineral bone disorder. PLAN: Hemodialysis in a.m. Continue off of Lyrica for now. Thank you for this consultation. Will continue to follow the patient with you during his hospitalization. RANJEET / ESTHELA: [id number] /
[2019-01-06 06:20] LABS: Anisocytosis Slight; HCT 29.2 % (39.0-53.0); HGB 10.1 gm/dL (13.0-17.5); MCH 33.5 pg (25.0-35.0); MCHC 34.6 g/dL (31.0-37.0); MCV 96.8 fL (80.0-100.0); Macrocytosis Slight; Mean Platelet Volume 9.4; Poikilocytosis Slight; RBC 3.02 m/uL (4.30-5.90); RDW 16.7 % (11.5-15.5); WBC 4.8 k/uL (3.8-10.6)
[2019-01-06 06:26] LABS: Glucose,Whole Blood 166 mg/dL (75-99)
[2019-01-06 06:28] LABS: Platelet Count 40 k/uL (150-450)
[2019-01-06 06:43] LABS: Albumin 3.6 g/dL (3.5-5.0); Calcium 7.7 mg/dL (8.4-10.2); Total Bilirubin 0.8 mg/dL (0.2-1.3); Total Protein 5.9 g/dL (6.3-8.2)
[2019-01-06] MEDS: SYMBICORT 80-4.5 MCG INHALER INHALATION SCH (07:23)
[2019-01-06] MEDS: INSULIN ASPART (NovoLOG) 100 UNIT/ML VIAL SQ SCH ×2 (07:41→12:43)
[2019-01-06] MEDS: PANTOPRAZOLE 40 MG TABLET PO SCH (07:41)
[2019-01-06 08:20] LABS: Potassium 6.3 mmol/L (3.5-5.1)
[2019-01-06] MEDS: CALCIUM CARBONATE 500 MG CHEWABLE PO SCH ×2 (09:55→16:30)
[2019-01-06] MEDS: LISINOPRIL 20 MG TAB PO SCH (09:55)
[2019-01-06] MEDS: FOLIC ACID-VIT B COMPLEX-VIT C 1 CAP PO SCH (09:56)
[2019-01-06] MEDS: HYDROcodone/APAP 10-325MG 1 EACH TAB PO SCH ×2 (09:56→16:33)
[2019-01-06] MEDS: FERROUS SULFATE 325 MG TAB PO SCH ×2 (09:57→16:30)
[2019-01-06] MEDS: hydrALAZINE HCL 50 MG TAB PO SCH ×2 (09:57→16:30)
[2019-01-06] MEDS: METOPROLOL TARTRATE 50 MG TAB PO SCH (09:57)
[2019-01-06] MEDS: ARIPiprazole 5 MG TAB PO SCH (09:57)
[2019-01-06] MEDS: CITALOPRAM HYDROBROMIDE 10 MG TAB PO SCH (09:57)
[2019-01-06] MEDS: LACTULOSE 20 GM/30 ML CUP PO SCH (09:58)
[2019-01-06] MEDS: FLUTICASONE 50MCG/SPRAY NASAL 16GM EA NOSTRIL SCH (09:58)
[2019-01-06 12:13] LABS: Glucose,Whole Blood 125 mg/dL (75-99)
[2019-01-06 12:53] LABS: Hemoglobin A1C 5.4 % (4.0-6.0)
[2019-01-06] MEDS: BUMETANIDE 1 MG TAB PO SCH ×2 (13:12→16:30)
[2019-01-06 14:20] VITALS: BP 116/62; PULSE 55; RESP 18; TEMP 98.3
--- NOTE | 2019-01-06 15:24 | P.DS ---
Providers Date of admission: 01/04/19 11:56 Expected date of discharge: 01/06/19 Attending physician: Elba Ramirez MD Consults: 01/04/19 11:47 Consult Physician Stat Consulting Provider: Marion Garcia Consult Reason/Comments: Dialysis, acute and chronic renal failure Do you want consulting provider notified?: Yes Primary care physician: Gonzales Drew [place] [facility] Course: This is a 57 Year-Old male one of and Dr. 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 Followed by another admission for acute change in mental status, increased weakness worsening shortness of breath and cough. Patient was treated for sepsis, pancytopenia requiring transfusions, acute hypoxic hypercarbic respiratory failure requiring intubation secondary to fluid overload, acute on chronic systolic heart failure, possible gram-negative pneumonia that could not be ruled out during that admission. Patient had a prolonged course and was finally discharged on 06/15. He was last seen in June 2018 with pancytopenia secondary to chronic liver disease with bone marrow suppression from chronic alcohol use. He was seen by Dr. Sanchez for esophageal varices and underlying possible cirrhosis as nodularity was noted on the liver with thrombocytopenia from hypersplenism. Patient was supposed to get EGD and colonoscopy in 06-07 and was evaluated for possible kidney transplant. Patient comes in to the ER for increased weakness and worsening of tremors in bilateral upper extremities. He underwent dialysis session on Friday and was doing well until yesterday when the tremors worsened. He went to dialysis Center where he was sent to the ER for evaluation. Labs done ER Leukocytosis of 5.7 hemoglobin 9.9 platelet count of 47. BNP suggest a potassium of 6.9, sodium 134, creatinine 7.75 BUN 79 Satish of 293 phosphorous of 5.2 and calcium 7.2. She received albuterol and D50 with 10 units of insulin for hyperkalemia and 1 g of calcium clinic clinic. Received 2.5 mg of Valium for tremors. Nephrology is being consulted for hyperkalemia. Ammonia level was ordered which was less than 9. Patient's presentation appears to be related to uremia. EEG ordered to rule out uremic encephalopathy. 01/05: Patient's is at bedside. She is concerned the patient has depression and is seeing a therapist but no medication adjustments have been made. He has stated that he would be willing to . He is not suicidal and would not hurt himself but if it happened he would be okay with that. He is eating and drinking okay. She states he sleeps all the time. When asked, the patient does state that he is depressed. Patient has been on Abilify and we will add in citalopram. Patient's states that Lyrica seems to make his tremors worsen will be Discontinued completely. Tremors are much improved from yesterday. Regarding cirrhosis of the liver, patient has had a biopsy done at [facility] that was negative for cirrhosis. This was done approximate 6-7 months ago. He was also scheduled for colonoscopy and EGD but developed atrial fibrillation and up at [facility] for a week. Patient has been afebrile, blood pressure 166/72, pulse ox 93% on room air, heart rate 80. Repeat lab work reveals sodium 139, potassium 5.3, chloride 102, CO2 28, BUN 44 and creatinine 4.37. 01/06: Patient is afebrile, heart rate 75, blood pressure 142/78 and pulse ox 90% on room air. Repeat lab work shows WBC 4.8, hemoglobin 10.1, platelet count 40. Potassium 6.3, BUN 15 creatinine 5.31. Blood sugars are running between 80 and 166. The patient has no tremors today. Dr. Garcia is aware of potassium. Patient is anxious to be discharged home. Patient will be discharged today in stable condition. Discharge diagnoses: #1 acute tremors secondary to Lyrica which will be discontinued. #2 hyperkalemia secondary to end-stage kidney disease. #3 anemia of chronic disease likely secondary to chronic liver disease secondary to alcohol abuse in the past #4 thrombocytopenia with splenomegaly which is likely alcohol related stable #5 type 2 diabetes insulin-dependent #6 diabetic neuropath #7 chronic systolic heart failure #8 end-stage renal disease on hemodialysis Friday #9 hypocalcemia #10 history of coronary artery disease status post stent in 2013 #11 history of chronic splenic vein thrombosis secondary to recurrent pancreatitis no episode of bleeding #12 history of recurrent pancreatitis secondary to alcohol abuse #13 history of CVA with right upper extremity numbness #14 Hyperlipidemia #15 Hypertension #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 Episode of paroxysmal atrial fibrillation at [facility]. Discharge plan: return home Impression and plan of care have been directed as dictated by the signing physi cian. Iram Love nurse practitioner acting as scribe for signing physician. Patient Condition at Discharge: Good Plan - Discharge Summary Discharge Rx Participant: No New Discharge Prescriptions: New Citalopram Hydrobromide [CeleXA] 10 mg PO DAILY #30 tab Calcium Carbonate [Tums] 500 mg PO TID chew Continue Atorvastatin Calcium [Lipitor] 80 mg PO HS #30 tab ALPRAZolam [Xanax] 0.25 mg PO HS PRN PRN Reason: Insomnia HYDROcodone/APAP 10-325MG [[place] 10-325] 1 tab PO TID hydrALAZINE HCL [Apresoline] 50 mg PO TID #90 tab Lisinopril [Zestril] 40 mg PO DAILY #30 tab Morphine Sulfate ER [Ms Contin] 15 mg PO Q12HR PRN PRN Reason: Pain Docusate [Colace] 100 mg PO DAILY PRN cap PRN Reason: Constipation Lactulose [Cephulac] 30 gm PO DAILY #1 bottle Ferrous Sulfate [Feosol] 325 mg PO TID #90 tab Insulin Glargine,Hum.rec.anlog [Basaglar Kwikpen U-100] 20 unit SQ HS Insulin Aspart [NovoLOG Flexpen] 20 unit SQ AC-TID Fluticasone Nasal [place] [Flonase Nasal [place]] 2 spr EA NOSTRIL DAILY Omeprazole [PriLOSEC] 20 mg PO DAILY ARIPiprazole [Abilify] 5 mg PO DAILY Metoprolol Tartrate [Lopressor] 150 mg PO BID Lubiprostone [Amitiza] 24 mcg PO BID Bumetanide [BUMEX] 2 mg PO BID Fluticasone/Salmeterol [Advair 250-50 Diskus] 1 puff INHALATION RT-BID Albuterol Sulfate [Proair Hfa] 2 puff INHALATION RT-QID PRN PRN Reason: Shortness Of Breath Nitroglycerin Sl Tabs [Nitrostat] 0.4 mg SUBLINGUAL Q5M PRN PRN Reason: Angina Dialyvite 1 tab PO DAILY Discontinued Diltiazem HCl [Diltiazem 24Hr ER (CD)] 180 mg PO DAILY Pregabalin [Lyrica] 50 mg PO BID Discharge Medication List Atorvastatin Calcium [Lipitor] 80 mg PO HS #30 tab 03/01/14 [Rx] ALPRAZolam [Xanax] 0.25 mg PO HS PRN 06/04/18 [History] HYDROcodone/APAP 10-325MG [[place] 10-325] 1 tab PO TID 06/04/18 [History] Lisinopril [Zestril] 40 mg PO DAILY #30 tab 06/15/18 [Rx] hydrALAZINE HCL [Apresoline] 50 mg PO TID #90 tab 06/15/18 [Rx] Morphine Sulfate ER [Ms Contin] 15 mg PO Q12HR PRN 06/25/18 [History] Docusate [Colace] 100 mg PO DAILY PRN cap 06/28/18 [Rx] Ferrous Sulfate [Feosol] 325 mg PO TID #90 tab 06/28/18 [Rx] Lactulose [Cephulac] 30 gm PO DAILY #1 bottle 06/28/18 [Rx] ARIPiprazole [Abilify] 5 mg PO DAILY 01/04/19 [History] Albuterol Sulfate [Proair Hfa] 2 puff INHALATION RT-QID PRN 01/04/19 [History] Bumetanide [BUMEX] 2 mg PO BID 01/04/19 [History] Dialyvite 1 tab PO DAILY 01/04/19 [History] Fluticasone Nasal [place] [Flonase Nasal [place]] 2 spr EA NOSTRIL DAILY 01/04/19 [History] Fluticasone/Salmeterol [Advair 250-50 Diskus] 1 puff INHALATION RT-BID 01/04/19 [History] Insulin Aspart [NovoLOG Flexpen] 20 unit SQ AC-TID 01/04/19 [History] Insulin Glargine,Hum.rec.anlog [Basaglar Kwikpen U-100] 20 unit SQ HS 01/04/19 [History] Lubiprostone [Amitiza] 24 mcg PO BID 01/04/19 [History] Metoprolol Tartrate [Lopressor] 150 mg PO BID 01/04/19 [History] Nitroglycerin Sl Tabs [Nitrostat] 0.4 mg SUBLINGUAL Q5M PRN 01/04/19 [History] Omeprazole [PriLOSEC] 20 mg PO DAILY 01/04/19 [History] Calcium Carbonate [Tums] 500 mg PO TID chew 01/06/19 [Rx] Citalopram Hydrobromide [CeleXA] 10 mg PO DAILY #30 tab 01/06/19 [Rx] Follow up Appointment(s)/Referral(s): Marion Garcia MD [STAFF PHYSICIAN] - 1 Week (follow up with scheduled dialysis) Gonzales Drew MD [Primary Care Provider] - 1-2 days (Unable to get through at this time. Please call to schedule appointment) Patient Instructions/Handouts: Chronic Kidney Disease (DC)
--- NOTE | 2019-01-06 15:25 | PN ---
PROGRESS NOTE Patient is seen for followup for end-stage renal disease. He is currently seen on hemodialysis. Patient is tolerating his treatment well. He denies any significant complaints. His tremors have improved. Patient's potassium was elevated to 6.3 today. He is maintained on large dose of lisinopril, which I will step down to 20 mg and we will monitor the potassium as outpatient, if he remains elevated, he will need to discontinue the manuel inhibitors. Patient denies having had significant constipation or having had any increase in from potassium containing foods. On examination, he is seen on dialysis. Blood pressure 142/78, heart rate 75 per minute. He is afebrile. Examination of the heart, S1, S2. Examination of the lungs, bilateral breath sounds are heard. Abdomen is soft, nontender. Examination of the lower extremities shows no significant edema. MEDICAL SPECIALIST exam is grossly intact. LABS: Show sodium 137, potassium 6.3, BUN 20, serum creatinine 5.3, hemoglobin 10.1 g/dL. ASSESSMENT: 1. End-stage renal disease, on hemodialysis on a Friday, Friday, Friday schedule. 2. Hyperkalemia in a patient with end-stage renal disease, maintained on large dose of MANUEL inhibitors. I will decrease the lisinopril to 20 mg daily. If he remains hyperkalemic, we may need to completely discontinue the use of MANUEL inhibitors. Patient is advised regarding avoiding high potassium containing foods. His sugar is not significantly uncontrolled. 3. Chronic thrombocytopenia. 4. Tremors, most likely associated with Lyrica, currently improved. Lyrica is on hold. 5. CKD mineral bone disorder. PLAN: Decrease lisinopril and patient is stable for discharge from Nephrology standpoint. MMODL / IJN: [id number] /
[2019-01-07] MEDS ORDERED: LISINOPRIL 20 MG TAB PO SCH (09:00)
== END 2019-01-06 17:23 | disposition home or self-care (01) | DRG 91 ==
LOC: EC 09:20 → 3SCARD 11:56
PROVIDERS: ADMIT Internal Medicine; ATTEND Internal Medicine
PROC: 5A1D70Z Performance of Urinary Filtration, Intermittent, Less than 6 Hours Per Day (ICD-10-PCS; principal; 2019-01-04)
DX: G25.1 Drug-induced tremor (principal); N18.6 End stage renal disease; D61.818 Other pancytopenia; I13.2 Hypertensive heart and chronic kidney disease with heart failure and with stage 5 chronic kidney disease, or end stage renal disease; I50.32 Chronic diastolic (congestive) heart failure; K86.0 Alcohol-induced chronic pancreatitis; N17.9 Acute kidney failure, unspecified; T42.6X5A Adverse effect of other antiepileptic and sedative-hypnotic drugs, initial encounter; D63.8 Anemia in other chronic diseases classified elsewhere; D72.829 Elevated white blood cell count, unspecified; D73.1 Hypersplenism; E11.22 Type 2 diabetes mellitus with diabetic chronic kidney disease; E11.40 Type 2 diabetes mellitus with diabetic neuropathy, unspecified; E78.5 Hyperlipidemia, unspecified; E83.51 Hypocalcemia; E87.5 Hyperkalemia; F32.9 Major depressive disorder, single episode, unspecified; G25.3 Myoclonus; G47.33 Obstructive sleep apnea (adult) (pediatric); Z99.89 Dependence on other enabling machines and devices; I25.10 Atherosclerotic heart disease of native coronary artery without angina pectoris; I48.0 Paroxysmal atrial fibrillation; J44.9 Chronic obstructive pulmonary disease, unspecified; K21.9 Gastro-esophageal reflux disease without esophagitis; K70.9 Alcoholic liver disease, unspecified; M89.9 Disorder of bone, unspecified; Z79.4 Long term (current) use of insulin; Z79.899 Other long term (current) drug therapy; Z82.49 Family history of ischemic heart disease and other diseases of the circulatory system; Z86.718 Personal history of other venous thrombosis and embolism; I69.331 Monoplegia of upper limb following cerebral infarction affecting right dominant side; Z87.891 Personal history of nicotine dependence; Z95.5 Presence of coronary angioplasty implant and graft; Z99.2 Dependence on renal dialysis; Z87.09 Personal history of other diseases of the respiratory system; Z79.891 Long term (current) use of opiate analgesic; Z88.8 Allergy status to other drugs, medicaments and biological substances
CPT/HCPCS: 36415; 70450; 71046; 80048; 80053; 82140; 83036; 83735; 84100; 85025; 85027; 90935; 93005; 94640; 95819; 96365; 96375; 99285

== ENCOUNTER 2019-04-07 19:06 | Inpatient (IN) | payer BC, MEDICARE ==
[2019-04-07 19:53] LABS: Glucose,Whole Blood 234 mg/dL (75-99)
[2019-04-07] MEDS ORDERED: NALOXONE 0.4 MG/ML 1 ML VIAL IV STA ×2 (20:00→20:42)
--- NOTE | 2019-04-07 20:16 | CT ---
EXAMINATION TYPE: CT brain wo con for TPA DATE OF EXAM: 04/07/2019 COMPARISON: 01/04/2019 HISTORY: Confusion. weakness CT DLP: 1101 mGycm Automated exposure control for dose reduction was used. FINDINGS: There is cerebral cortical atrophy. There is no mass effect nor midline shift. There is no sign of in tracranial hemorrhage. Calvarium is intact. IMPRESSION: NEGATIVE CT SCAN OF THE BRAIN. NO CHANGE.
[2019-04-07 20:28] LABS: Anisocytosis Slight; Basophils # (A) 0.1 k/uL (0-0.2); Basophils % (A) 0 %; Eosinophils % (A) 0 %; HCT 39.5 % (39.0-53.0); HGB 12.9 gm/dL (13.0-17.5); Lymphocytes # (A) 1.1 k/uL (1.0-4.8); Lymphocytes % (A) 7 %; MCH 33.3 pg (25.0-35.0); MCHC 32.7 g/dL (31.0-37.0); MCV 102.1 fL (80.0-100.0); Macrocytosis Moderate; Mean Platelet Volume 9.2; Monocytes # (A) 0.7 k/uL (0-1.0); Monocytes % (A) 4 %; Neutrophils # (A) 14.1 k/uL (1.3-7.7); Neutrophils % (A) 87 %; Poikilocytosis Slight; RBC 3.87 m/uL (4.30-5.90); RDW 17.9 % (11.5-15.5); WBC 16.2 k/uL (3.8-10.6)
[2019-04-07 20:34] LABS: Albumin 4.5 g/dL (3.5-5.0); Total Bilirubin 0.8 mg/dL (0.2-1.3); Total Protein 7.4 g/dL (6.3-8.2)
--- NOTE | 2019-04-07 20:34 | CT ---
EXAMINATION TYPE: CODE STROKE: CTA head neck DATE OF EXAM: 04/07/2019 HISTORY: Confusion. weakness COMPARISON: None CT DLP: 513.6 mGycm. Automated Exposure Control for Dose Reduction was Utilized. TECHNIQUE: CTA scan of the neck is performed with IV Contrast, patient injected with 50 mL of Isovue 370, axial images are obtained, coronal and sagittal reformatted images are reviewed. Three-D recons tructed images are created on an independent workstation and reviewed. FINDINGS: There is normal branching pattern of the great vessels on the aortic arch. There is arterial flow in both subclavian arteries. There is arterial flow in the common internal and external carotid arteries bilaterally. There is arterial flow in both vertebral arteries. There is diminutive left vertebral a rtery. There is arterial flow in the vertebrobasilar artery system. Basilar artery fills mostly from the right side. There is no evidence of carotid or vertebral artery aneurysm or dissection. There is no evidence of h emodynamic stenosis at the carotid artery bifurcations. There is mild atherosclerotic plaque formatio n. There is estimated 30% stenosis at the origin of the right internal carotid artery. Right internal ca rotid artery is relatively small. There is arterial flow in the anterior middle and posterior cerebral arteries. There is no mass effec t. There is no evidence of intracranial aneurysm or neovascularity. There is normal contrast opacific ation of the venous sinuses. IMPRESSION: There is diminutive right internal carotid artery. Atherosclerotic plaque formation at the carotid ar kasia bifurcations without evidence of hemodynamic stenosis. Negative CT angiogram of the brain.
[2019-04-07 20:39] LABS: Platelet Count 98 k/uL (150-450)
[2019-04-07 20:40] LABS: Partial Thromboplastin Time 23.8 sec (22.0-30.0); Prothrombin Time 10.4 sec (9.0-12.0)
--- NOTE | 2019-04-07 20:48 | XR ---
EXAMINATION TYPE: XR chest 1V DATE OF EXAM: 04/07/2019 COMPARISON: 01/04/2019 HISTORY: Chest pain TECHNIQUE: Single frontal view of the chest is obtained. FINDINGS: There is some linear density at the left lung base. Heart is normal. Lungs are clear of co nsolidation. There is no heart failure. There are chest leads. IMPRESSION: There is new atelectasis left lung base compared to old exam. No heart failure.
[2019-04-07 20:50] LABS: Potassium 8.3 mmol/L (3.5-5.1)
[2019-04-07 20:54] LABS: Calcium 5.7 mg/dL (8.4-10.2)
[2019-04-07] MEDS ORDERED: ALBUTEROL NEBULIZED 2.5 MG/3 ML INHALATION STA (20:54)
[2019-04-07] MEDS ORDERED: DEXTROSE 50% SYRINGE 50 ML IVP STA (20:54)
[2019-04-07] MEDS ORDERED: INSULIN REGULAR 100 UNIT/ML VIAL IV ONE (20:54)
[2019-04-07] MEDS ORDERED: CALCIUM GLUCONATE 2 GM in SODIUM CHLORIDE 0.9% 100 ML IVPB ONE (21:00)
[2019-04-07] MEDS ORDERED: SODIUM CHLORIDE 0.9% 500 ML IV ONE (21:06)
[2019-04-07] MEDS ORDERED: ACETAMINOPHEN TAB 325 MG TAB PO PRN (21:27)
[2019-04-07] MEDS ORDERED: NALOXONE 0.4 MG/ML 1 ML VIAL IV PRN (21:27)
--- NOTE | 2019-04-07 21:34 | ED ---
General Adult HPI - General Chief complaint: Shortness of Breath Stated complaint: Altered Mental Status Time Seen by Provider: 04/07/19 19:45 Source: family, EMS Mode of arrival: EMS Limitations: no limitations - History of Present Illness Initial comments: 58-year-old male presenting with unresponsiveness. Patient's states that earlier today he was texting that he was feeling unwell, and that he was going to skip dialysis (normally MWF). When she presented home at 6 PM he was sleepy but arousable. He states he became more somnolent and was difficult to awaken. States he has one episode previously like this and he was septic from pneumonia. States the patient is on [place] and morphine for chronic pain however she is unsure if he may have taken too many of his meds. He states prior today he was feeling well. He states that he with his [place] and morphine dose today for his chronic neck pain. Denies a suicide attempt. Severity scale (1-10): 3 - Related Data Home Medications Medication Instructions Recorded Confirmed ALPRAZolam [Xanax] 0.125 mg PO HS PRN 06/04/18 04/07/19 HYDROcodone/APAP 10-325MG [[place] 1 tab PO Q4H 06/04/18 04/07/19 10-325] ARIPiprazole [Abilify] 5 mg PO DAILY 01/04/19 04/07/19 Albuterol Sulfate [Proair Hfa] 2 puff INHALATION RT-QID PRN 01/04/19 04/07/19 Bumetanide [BUMEX] 2 mg PO BID 01/04/19 04/07/19 Dialyvite 1 tab PO DAILY 01/04/19 04/07/19 Fluticasone Nasal Jet [Flonase 2 spr EA NOSTRIL DAILY 01/04/19 04/07/19 Nasal Jet] Fluticasone/Salmeterol [Advair 1 puff INHALATION RT-BID 01/04/19 04/07/19 250-50 Diskus] Insulin Aspart [NovoLOG Flexpen] 20 unit SQ AC-TID 01/04/19 04/07/19 Insulin Glargine,Hum.rec.anlog 20 unit SQ HS 01/04/19 04/07/19 [Basaglar Kwikpen U-100] Lubiprostone [Amitiza] 24 mcg PO BID 01/04/19 04/07/19 Metoprolol Tartrate [Lopressor] 150 mg PO BID 01/04/19 04/07/19 Nitroglycerin Sl Tabs [Nitrostat] 0.4 mg SUBLINGUAL Q5M PRN 01/04/19 04/07/19 Omeprazole [PriLOSEC] 20 mg PO DAILY 01/04/19 04/07/19 Calcium Acetate [Phoslo] 1,334 mg PO AC-TID 04/07/19 04/07/19 Gabapentin [Neurontin] 100 mg PO TID 04/07/19 04/07/19 Lisinopril 30 mg PO DAILY 04/07/19 04/07/19 Morphine Sulfate ER [Ms Contin] 30 mg PO Q12HR 04/07/19 04/07/19 Previous Rx's Medication Instructions Recorded Atorvastatin Calcium [Lipitor] 80 mg PO HS #30 tab 03/01/14 hydrALAZINE HCL [Apresoline] 50 mg PO TID #90 tab 06/15/18 Docusate [Colace] 100 mg PO DAILY PRN cap 06/28/18 Ferrous Sulfate [Feosol] 325 mg PO TID #90 tab 06/28/18 Lactulose [Cephulac] 30 gm PO DAILY #1 bottle 06/28/18 Citalopram Hydrobromide [CeleXA] 10 mg PO DAILY #30 tab 01/06/19 Allergies Allergy/AdvReac Type Severity Reaction Status Date / Time No Known Allergies Allergy Verified 04/07/19 20:17 Review of Systems ROS Statement: Those systems with pertinent positive or pertinent negative responses have been documented in the HPI. ROS Other: All systems not noted in ROS Statement are negative. 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 - no alcohol use in over 7 yrs, fatty liver, pt states he doesn't use his cpap very much, varicose veins bilaterally, IDDM type II, neuropathy bilateral feet, chronic kidney disease due to diabetes on hemodialysis 3 times a week mon-wed-fri, chronic low platelets and usually needs platelets prior to surgical procedures, past peritoneal dialysis catheter being removed because was not functioning properly, CVA with R sided numbess, ARDS, past respiratory arrest/intubated and trached, past metabolic encephalopathy 2ndary to ESRD, sepsis, thrombocytopenia d/t splenomegaly, chronic anemia, chronic back and cervical pain, current bilateral shoulder pain-pt no longer uses his L arm much, cervical DDD with surgery/plate, previously treated for involuntary dystonia 2ndary to Abilify being used to treat uremia. History of Any Multi-Drug Resistant Organisms: None Reported Past Surgical History: Appendectomy, Back Surgery, Cholecystectomy, Heart Catheterization, Heart Catheterization With Stent Additional Past Surgical History / Comment(s): PCI with stents, tracheostomy, bladder stone removal, anterior cervical disc fusion/plate, jugular catheter insertion since removed, colonoscopy."dialysis graft site lt upper arm"-no bp or blood draw lt arm, peritoneal catheter-since removed. Past Anesthesia/Blood Transfusion Reactions: No Reported Reaction Date of Last Stent Placement:: 2013 Past Psychological History: Anxiety, Depression Smoking Status: Former smoker Past Alcohol Use History: None Reported Past Drug Use History: None Reported - Past Family History Father Family Medical History: Coronary Artery Disease (CAD), Myocardial Infarction (PR) Additional Family Medical History / Comment(s): Father of a PR at the age of 65yrs. Mother Family Medical History: Coronary Artery Disease (CAD), Myocardial Infarction (PR) Additional Family Medical History / Comment(s): Mother of a PR at the age of 55yrs. Brother(s) Family Medical History: Cancer Daughter(s) Family Medical History: Vascular Disorder (VSD) General Exam - General Exam Comments Initial Comments: General: Awake, alert, No acute Distress HENT: Normocephalic. Atraumatic. Dry mucus membranes. Eyes: PERRL. EOMI. No scleral icterus. Injected conjunctiva of right eye Neck: Full ROM Chest/Lungs: Clear to auscultation bilaterally. No wheezing, rhonchi, or rales Cardiac: Regular rate, rhythm. No murmurs or rubs. Palpable thrill in LUE fistula Abdomen/GI: Soft, nontender, nondistended. No rebound, guarding, or rigidity. Musculoskeletal: No obvious deformity Skin: Warm, dry, intact Neurologic: A/Ox2, unable to perform rapid alternating movements with left hand. Unable to assess pronator drift secondary to chronic rotator cuff injury. Unable to perform finger to nose. Dysarthria. No sensory deficit. Unable to evaluate gait. NIHSS 2 (speech and ataxia) Limitations: no limitations Course Vital Signs 04/07/19 04/07/19 04/07/19 19:13 20:00 20:10 Temperature Pulse Rate 98 Respiratory 12 16 Rate Blood Pressure 139/59 143/57 103/57 Blood Pressure [Right Arm] O2 Sat by Pulse 93 L Oximetry 04/07/19 04/07/19 04/07/19 20:20 20:30 20:40 Temperature Pulse Rate 85 84 84 Respiratory 16 16 16 Rate Blood Pressure 116/64 100/54 101/57 Blood Pressure [Right Arm] O2 Sat by Pulse 96 97 96 Oximetry 04/07/19 04/07/19 04/07/19 20:50 21:00 21:10 Temperature 98.3 F Pulse Rate 84 81 80 Respiratory 16 16 18 Rate Blood Pressure 103/58 103/65 105/61 Blood Pressure 105/61 [Right Arm] O2 Sat by Pulse 97 92 L 91 L Oximetry 04/07/19 04/07/19 04/07/19 21:13 21:20 21:28 Temperature Pulse Rate 79 79 81 Respiratory 16 Rate Blood Pressure 102/54 Blood Pressure [Right Arm] O2 Sat by Pulse 100 Oximetry 04/07/19 04/07/19 04/07/19 21:30 21:40 21:49 Temperature Pulse Rate 81 82 83 Respiratory 16 18 Rate Blood Pressure 98/55 107/57 Blood Pressure [Right Arm] O2 Sat by Pulse 99 99 Oximetry 04/07/19 04/07/19 04/07/19 21:50 22:00 22:08 Temperature Pulse Rate 84 85 Respiratory 14 14 14 Rate Blood Pressure 108/61 119/59 Blood Pressure [Right Arm] O2 Sat by Pulse 96 94 L Oximetry 04/07/19 04/07/19 04/07/19 22:09 22:10 22:20 Temperature Pulse Rate 87 87 Respiratory 14 16 16 Rate Blood Pressure 122/52 111/55 Blood Pressure [Right Arm] O2 Sat by Pulse 88 L 91 L Oximetry 04/07/19 04/07/19 04/07/19 22:30 22:40 22:50 Temperature Pulse Rate 91 90 93 Respiratory 14 12 16 Rate Blood Pressure 124/59 120/54 128/57 Blood Pressure [Right Arm] O2 Sat by Pulse 92 L 88 L 91 L Oximetry 04/07/19 23:55 Temperature Pulse Rate Respiratory 20 Rate Blood Pressure Blood Pressure [Right Arm] O2 Sat by Pulse Oximetry EKG Findings - EKG Comments: EKG Findings:: EKG shows sinus rhythm with first-degree AV block. Rate 97 bpm. Medical Decision Making - Medical Decision Making 58-year-old male presenting unresponsive. Initial presentation to the emergency department the patient was somnolent and unable to be awakened by verbal stimuli. His blood sugar was 234. He was given 0.4 mg of Narcan with resolution of his unresponsiveness. The patient was then exhibiting slurred speech and confusion. Patient's is at bedside stating that this was not normal for him. A stroke alert was called. NIHSS 2 for LUE ataxia and dysarthria. Further discussion with the revealed that the patient's last known normal was over 24 hours prior. I discussed with the patient is not a TPA candidate for suspected CVA at this time. Patient's CT and CTA were negative for acute process. His EKG showed sinus rhythm with a first-degree AV block at a rate of 97 bpm with peaked T waves. Patient is a dialysis patient who missed dialysis today. His potassium resulted at 8.3. Patient was given insulin, D50, calcium gluconate, and 10 mg of albuterol for his hyperkalemia. Patient was also found to have an elevated troponin, however he is denying any chest pain at this time. Likely type II and STEMI secondary to his ESRD status. Patient no infection or fluid overload on his chest x-ray. He was given 500 mL of IV fluid for his lactic acidosis. I spoke with the admitting physician as well as Dr. Wharton. I spoke with the warehouse guard to arrange for emergent dialysis for the patient's potassium. Patient is currently stable for transfer to the floor. - Lab Data Result diagrams: 04/07/19 19:28 04/07/19 19:28 Lab Results 04/07/19 04/07/19 04/07/19 Range/Units 19:28 19:28 19:28 WBC 16.2 H (3.8-10.6) k/uL RBC 3.87 L (4.30-5.90) m/uL Hgb 12.9 L (13.0-17.5) gm/dL Hct 39.5 (39.0-53.0) % MCV 102.1 H (80.0-100.0) fL MCH 33.3 (25.0-35.0) pg MCHC 32.7 (31.0-37.0) g/dL RDW 17.9 H (11.5-15.5) % Plt Count 98 L (150-450) k/uL Neutrophils % 87 % Lymphocytes % 7 % Monocytes % 4 % Eosinophils % 0 % Basophils % 0 % Neutrophils # 14.1 H (1.3-7.7) k/uL Lymphocytes # 1.1 (1.0-4.8) k/uL Monocytes # 0.7 (0-1.0) k/uL Eosinophils # 0.0 (0-0.7) k/uL Basophils # 0.1 (0-0.2) k/uL Poikilocytosis Slight Anisocytosis Slight Macrocytosis Moderate PT (9.0-12.0) sec INR (<1.2) APTT (22.0-30.0) sec Sodium 137 (137-145) mmol/L Potassium 8.3 H* (3.5-5.1) mmol/L Chloride 96 L (98-107) mmol/L Carbon Dioxide 23 (22-30) mmol/L Anion Gap 18 mmol/L BUN 85 H (9-20) mg/dL Creatinine 8.78 H* (0.66-1.25) mg/dL Est GFR (CKD-EPI)AfAm 7 (>60 ml/min/1.73 sqM) Est GFR (CKD-EPI)NonAf 6 (>60 ml/min/1.73 sqM) Glucose 229 H (74-99) mg/dL POC Glucose (mg/dL) (75-99) mg/dL POC Glu Tactical Response Group Officer ID Lactic Ac Sepsis Rflx Plasma Lactic Acid Wicho 3.1 H* (0.7-2.0) mmol/L Calcium 5.7 L* (8.4-10.2) mg/dL Total Bilirubin 0.8 (0.2-1.3) mg/dL AST 54 (17-59) U/L ALT 39 (21-72) U/L Alkaline Phosphatase 97 (38-126) U/L Troponin I (0.000-0.034) ng/mL Total Protein 7.4 (6.3-8.2) g/dL Albumin 4.5 (3.5-5.0) g/dL Lipase 641 H (23-300) U/L 04/07/19 04/07/19 04/07/19 Range/Units 19:28 19:28 19:43 WBC (3.8-10.6) k/uL RBC (4.30-5.90) m/uL Hgb (13.0-17.5) gm/dL Hct (39.0-53.0) % MCV (80.0-100.0) fL MCH (25.0-35.0) pg MCHC (31.0-37.0) g/dL RDW (11.5-15.5) % Plt Count (150-450) k/uL Neutrophils % % Lymphocytes % % Monocytes % % Eosinophils % % Basophils % % Neutrophils # (1.3-7.7) k/uL Lymphocytes # (1.0-4.8) k/uL Monocytes # (0-1.0) k/uL Eosinophils # (0-0.7) k/uL Basophils # (0-0.2) k/uL Poikilocytosis Anisocytosis Macrocytosis PT 10.4 (9.0-12.0) sec INR 1.0 (<1.2) APTT 23.8 (22.0-30.0) sec Sodium (137-145) mmol/L Potassium (3.5-5.1) mmol/L Chloride (98-107) mmol/L Carbon Dioxide (22-30) mmol/L Anion Gap mmol/L BUN (9-20) mg/dL Creatinine (0.66-1.25) mg/dL Est GFR (CKD-EPI)AfAm (>60 ml/min/1.73 sqM) Est GFR (CKD-EPI)NonAf (>60 ml/min/1.73 sqM) Glucose (74-99) mg/dL POC Glucose (mg/dL) 234 H (75-99) mg/dL POC Glu Tactical Response Group Officer ID Remy Krishnan Lactic Ac Sepsis Rflx Plasma Lactic Acid Wicho (0.7-2.0) mmol/L Calcium (8.4-10.2) mg/dL Total Bilirubin (0.2-1.3) mg/dL AST (17-59) U/L ALT (21-72) U/L Alkaline Phosphatase (38-126) U/L Troponin I 0.712 H* (0.000-0.034) ng/mL Total Protein (6.3-8.2) g/dL Albumin (3.5-5.0) g/dL Lipase (23-300) U/L 04/07/19 Range/Units 20:55 WBC (3.8-10.6) k/uL RBC (4.30-5.90) m/uL Hgb (13.0-17.5) gm/dL Hct (39.0-53.0) % MCV (80.0-100.0) fL MCH (25.0-35.0) pg MCHC (31.0-37.0) g/dL RDW (11.5-15.5) % Plt Count (150-450) k/uL Neutrophils % % Lymphocytes % % Monocytes % % Eosinophils % % Basophils % % Neutrophils # (1.3-7.7) k/uL Lymphocytes # (1.0-4.8) k/uL Monocytes # (0-1.0) k/uL Eosinophils # (0-0.7) k/uL Basophils # (0-0.2) k/uL Poikilocytosis Anisocytosis Macrocytosis PT (9.0-12.0) sec INR (<1.2) APTT (22.0-30.0) sec Sodium (137-145) mmol/L Potassium (3.5-5.1) mmol/L Chloride (98-107) mmol/L Carbon Dioxide (22-30) mmol/L Anion Gap mmol/L BUN (9-20) mg/dL Creatinine (0.66-1.25) mg/dL Est GFR (CKD-EPI)AfAm (>60 ml/min/1.73 sqM) Est GFR (CKD-EPI)NonAf (>60 ml/min/1.73 sqM) Glucose (74-99) mg/dL POC Glucose (mg/dL) (75-99) mg/dL POC Glu Tactical Response Group Officer ID Lactic Ac Sepsis Rflx Y Plasma Lactic Acid Wicho (0.7-2.0) mmol/L Calcium (8.4-10.2) mg/dL Total Bilirubin (0.2-1.3) mg/dL AST (17-59) U/L ALT (21-72) U/L Alkaline Phosphatase (38-126) U/L Troponin I (0.000-0.034) ng/mL Total Protein (6.3-8.2) g/dL Albumin (3.5-5.0) g/dL Lipase (23-300) U/L Disposition Clinical Impression: Opioid overdose, Acute hyperkalemia, ESRD (end stage renal disease), CVA (cerebral vascular accident), NSTEMI (non-ST elevated myocardial infarction), Lactic acidosis Disposition: HOME SELF-CARE Is patient prescribed a controlled substance at d/c from ED?: No Decision to Admit Reason: Admit from EC Decision Date: 04/07/19 Decision Time: 21:37
[2019-04-08 00:22] LABS: Glucose,Whole Blood 218 mg/dL (75-99)
[2019-04-08 00:30] LABS: ABG Base Excess -2.3 mmol/L; ABG HCO3 25 mmol/L (21-25); ABG PCO2 61 mmHg (35-45); ABG PH 7.23 (7.35-7.45); ABG PO2 129 mmHg (83-108); ABG TCO2 27 mmol/L (19-24); Allen Test Performed? Yes
[2019-04-08] MEDS ORDERED: GELATIN SPONGE,ABSORB (LARGE) 1 EACH SPONGE ONE (00:50)
[2019-04-08] MEDS ORDERED: PROPOFOL 10 MG/ML 20 ML VIAL IV ONE (00:50)
[2019-04-08] MEDS ORDERED: TERBUTALINE FOR EXTRAVASATION 1 MG/ML VIAL SQ STA (01:04)
[2019-04-08] MEDS ORDERED: TERBUTALINE 1 MG/ML VIAL SQ STA (01:15)
[2019-04-08 01:50] LABS: ABG Base Excess 1.8 mmol/L; ABG HCO3 29 mmol/L (21-25); ABG PCO2 64 mmHg (35-45); ABG PH 7.26 (7.35-7.45); ABG PO2 >400 mmHg (83-108); ABG TCO2 31 mmol/L (19-24)
[2019-04-08 01:52] LABS: Allen Test Performed? no
--- NOTE | 2019-04-08 02:00 | XR ---
EXAM: XR Chest, 1 View CLINICAL HISTORY: line placement ITS.REASON XR Reason: mechanical intubation TECHNIQUE: Frontal view of the chest. COMPARISON: 04/07/19. FINDINGS: Endotracheal tube with the tip approximately 10 cm above the lore[place]. Right central venous catheter with the tip not well seen, may be in the region of the SVC. Feeding tube with the tip in the stomach. Prominent pulmonary vascularity and patchy lower lung opacities. The left costophrenic angle is not included in the [id number]. Additional findings similar to prior study. IMPRESSION: 1. Endotracheal tube with the tip approximately 10 cm above the loreto. 2. Right central venous catheter with the tip not well seen, may be in the region of the SVC. 3. Feeding tube with the tip in the stomach.
[2019-04-08 02:24] LABS: Calcium 6.7 mg/dL (8.4-10.2); Potassium 2.9 mmol/L (3.5-5.1)
[2019-04-08] MEDS: hydrALAZINE HCL 50 MG TAB PO SCH ×4 (03:02→21:59)
[2019-04-08] MEDS: GABAPENTIN 100 MG CAP PO SCH ×4 (03:03→22:04)
[2019-04-08] MEDS: NOREPINEPHRINE 4 MG in SODIUM CHLORIDE 0.9% 250 ML IV SCH ×2 (03:04→15:46)
[2019-04-08] MEDS: PROPOFOL 1,000 MG in EMPTY BAG 1 BAG IV SCH ×5 (03:05→20:22)
[2019-04-08 03:21] LABS: Appearance,Urine Clear (Clear); Bilirubin,Urine Negative (Negative); Blood,Urine Negative (Negative); Color,Urine Yellow; Glucose,Urine (UA) 1+ (Negative); Ketones,Urine Negative (Negative); Leukocyte Esterase,Urine Negative (Negative); Mucus,Urine Rare /hpf; Nitrite,Urine Negative (Negative); Protein,Urine 2+ (Negative); Specific Gravity,Urine 1.015 (1.001-1.035); Urobilinogen,Urine <2.0 mg/dL (<2.0); WBC,Urine 1 /hpf (0-5)
[2019-04-08 04:56] LABS: Anisocytosis Slight; Basophils % (A) 0 %; Eosinophils % (A) 0 %; HCT 33.4 % (39.0-53.0); HGB 11.1 gm/dL (13.0-17.5); Lymphocytes # (A) 1.2 k/uL (1.0-4.8); Lymphocytes % (A) 7 %; MCH 33.3 pg (25.0-35.0); MCHC 33.4 g/dL (31.0-37.0); MCV 99.8 fL (80.0-100.0); Macrocytosis Slight; Mean Platelet Volume 9.5; Monocytes # (A) 0.9 k/uL (0-1.0); Monocytes % (A) 5 %; Neutrophils % (A) 87 %; Poikilocytosis Slight; RBC 3.34 m/uL (4.30-5.90); RDW 16.7 % (11.5-15.5); WBC 18.3 k/uL (3.8-10.6)
[2019-04-08 04:57] LABS: ABG HCO3 26 mmol/L (21-25); ABG PCO2 53 mmHg (35-45); ABG PH 7.29 (7.35-7.45); ABG PO2 167 mmHg (83-108); ABG TCO2 27 mmol/L (19-24)
[2019-04-08 04:59] LABS: Allen Test Performed? no
--- NOTE | 2019-04-08 05:00 | XR ---
EXAM: XR Chest, 1 View CLINICAL HISTORY: ITS.REASON XR Reason: mechanical ventilation TECHNIQUE: Frontal view of the chest. COMPARISON: 04/08/19 at 00 55. FINDINGS: Endotracheal tube with the tip approximately 5 cm above the loreto. Additional tubes and lines appear similar to prior. The feeding tube extends below the field of view. Additional findings appear unchanged. IMPRESSION: Endotracheal tube with the tip approximately 5 cm above the loreto.
[2019-04-08 05:05] LABS: Magnesium 1.8 mg/dL (1.6-2.3); Phosphorus 7.6 mg/dL (2.5-4.5); Potassium 4.5 mmol/L (3.5-5.1)
[2019-04-08 05:06] LABS: Platelet Count 94 k/uL (150-450)
[2019-04-08 05:33] LABS: Calcium 6.3 mg/dL (8.4-10.2)
[2019-04-08] MEDS ORDERED: CALCIUM GLUCONATE 1 GM in SODIUM CHLORIDE 0.9% 100 ML IVPB ONE (06:51)
[2019-04-08] MEDS: ALBUTEROL NEBULIZED 2.5 MG/3 ML INHALATION PRN ×4 (07:06→19:12)
[2019-04-08] MEDS: INSULIN ASPART (NovoLOG) 100 UNIT/ML VIAL SQ SCH ×3 (07:16→17:46)
[2019-04-08 07:22] LABS: Glucose,Whole Blood 274 mg/dL (75-99)
[2019-04-08] MEDS ORDERED: INSULIN ASPART (NovoLOG) 100 UNIT/ML VIAL SQ SCH (07:30)
[2019-04-08] MEDS ORDERED: METOPROLOL TARTRATE 50 MG TAB PO SCH (09:00)
[2019-04-08] MEDS ORDERED: LISINOPRIL 10 MG TAB PO SCH (09:00)
--- NOTE | 2019-04-08 09:25 | P.CNPUL ---
History of Present Illness Consult date: 04/08/19 Chief complaint: Altered mental status History of present illness: [id number] male patient presented to ED with diminished level of conscio usness. He apparently contacted his stating that he was not feeling well. He apparently skipped dialysis that was supposed to be done on Friday. He normally dialyzes MWF regarding his incisional disease. When the came to see him at around 6 PM yesterday the patient was quite sleepy and was having difficulty arousing him. He was quite somnolent. Based on all this, the patient was brought into the ED. The patient has an incisional disease. The patient was also being treated with a combination morphine for chronic pain. Unsure if the patient took any excessive medications or narcotics. He takes these medications for chronic back and neck pain. No previous history of suicidal ideation. The patient underwent was given 3 doses of Narcan without much improvement. In the ED, the patient was found to have a potassium level of 8.3 with hyperacute T waves in addition to a BUN of 85 and a creatinine of 8.7. Her blood sugar was 229. White cell count was at 16.2 with a hemoglobin was 12.9. The patient was given calcium gluconate. He also received D50 with insulin and albuterol for his hyperkalemia. Nephrology was Negative for immediate dialysis. Workup for the altered mentation included a computed tomography scan of the brain and a CT angiogram that did not show any acute abnormalities. His EKG was sinus rhythm with a first-degree AV block. His troponin was at 0.7 and this was felt to be related to a type II cardiac injury in a patient with known history of incisional disease. The chest x-ray showed fluid overload/pulmonary edema. His lactic acid level was elevated at 3.1. The patient got transferred to the intensive care unit. While having dialysis, he was having difficulty in breathing and he was quite obtunded. Initially was placed on the BiPAP and subsequently he was intubated and placed on a mechanical ventilator. Post intubation he became hypotensive. A triple lumen catheter was inserted. The patient was started on norepinephrine infusion This morning, that his been completed without ultrafiltration. Potassium level has normalized and is down to 4.5. The patient's calcium level is at 6.3 and the patient is receiving another dose of calcium gluconate. He is sedated with propofol which is running at 40 g. He is on a mechanical ventilator on assist control mode with tidal volume of 500 with a rate of 18 and FiO2 of 40% with a PEEP of 5. The blood gases showed a pH of 7.29 with a pCO2 of 52 and pO2 167 and this was done on FiO2 of 50%. The patient is arousable to painful stimulation. Otherwise the is was sedated for now. Urine output is minimal. UA is negative. He is afebrile. The white cell count is at 18.3. Chest x-ray from today shows no acute abnormality. ET tube was high in the trachea and was rushed down further. No evidence of any consolidation or airspace disease. Review of Systems ROS unobtainable: due to endotracheal tube Past Medical History Past Medical History: Coronary Artery Disease (CAD), Chest Pain / Angina, Heart Failure, COPD, CVA/TIA, Diabetes Mellitus, GERD/Reflux, Hyperlipidemia, Hypertension, Osteoarthritis (OA), Renal Disease, Respiratory Disorder, Sleep Apnea/CPAP/BIPAP Additional Past Medical History / Comment(s): Known history of coronary artery disease, congestion heart failure with segmental wall motion abnormalities and ejection fraction of 30%, COPD, diabetes mellitus type 2, peripheral neuropathy, end-stage renal disease currently on hemodialysis 3 times a week MWF, history of alcoholism, history of chronic pancreatitis, the patient has not drank alcohol f or more than 70s, history of chronic CVA with some right-sided weakness, history of ARDS requiring intubation mechanical ventilation and was quite prolonged and the patient required tracheostomy tube insertion for that, history of splenomegaly, chronic anemia, chronic back pain, chronic neck pain, chronic narcotic dependence him a chronic thrombocytopenia, hypertension, history of esophageal varices without bleeding, history of opiate overdose History of Any Multi-Drug Resistant Organisms: None Reported Past Surgical History: Appendectomy, Back Surgery, Cholecystectomy, Heart Catheterization, Heart Catheterization With Stent Additional Past Surgical History / Comment(s): PCI with stents, tracheostomy, bladder stone removal, anterior cervical disc fusion/plate, jugular catheter insertion since removed, colonoscopy."dialysis graft site lt upper arm"-no bp or blood draw lt arm, peritoneal catheter-since removed. Past Anesthesia/Blood Transfusion Reactions: No Reported Reaction Date of Last Stent Placement:: 2013 Past Psychological History: Anxiety, Depression Additional Psychological History / Comment(s): Pt resides with his spouse and their 2 sons, one of which is a handicapped minor and the other an adult. Pt has a glucometer. He drives. Smoking Status: Former smoker Past Alcohol Use History: None Reported Additional Past Alcohol Use History / Comment(s): Quit smoking 1990, smoked approx 23 yrs 1ppd, no alcohol for over 7 yrs. Past Drug Use History: None Reported - Past Family History Father Family Medical History: Coronary Artery Disease (CAD), Myocardial Infarction ([place]) Additional Family Medical History / Comment(s): Father of a [place] at the age of 65yrs. Mother Family Medical History: Coronary Artery Disease (CAD), Myocardial Infarction ([place]) Additional Family Medical History / Comment(s): Mother of a [place] at the age of 55yrs. Brother(s) Family Medical History: Cancer Daughter(s) Family Medical History: Vascular Disorder (VSD) Medications and Allergies Home Medications Medication Instructions Recorded Confirmed Type RX: Atorvastatin Calcium [Lipitor] 80 mg PO HS #30 tab 03/01/14 04/07/19 Rx RX: ALPRAZolam [Xanax] 0.125 mg PO HS PRN 06/04/18 04/07/19 History RX: HYDROcodone/APAP 10-325MG 1 tab PO Q4H 06/04/18 04/07/19 History [[place] 10-325] RX: hydrALAZINE HCL [Apresoline] 50 mg PO TID #90 tab 06/15/18 04/07/19 Rx RX: Docusate [Colace] 100 mg PO DAILY PRN cap 06/28/18 04/07/19 Rx RX: Ferrous Sulfate [Feosol] 325 mg PO TID #90 tab 06/28/18 04/07/19 Rx RX: Lactulose [Cephulac] 30 gm PO DAILY #1 bottle 06/28/18 04/07/19 Rx Dialyvite 1 tab PO DAILY 01/04/19 04/07/19 History RX: ARIPiprazole [Abilify] 5 mg PO DAILY 01/04/19 04/07/19 History RX: Albuterol Sulfate [Proair Hfa] 2 puff INHALATION RT-QID PRN 01/04/19 04/07/19 History RX: Bumetanide [BUMEX] 2 mg PO BID 01/04/19 04/07/19 History RX: Fluticasone Nasal [place] 2 spr EA NOSTRIL DAILY 01/04/19 04/07/19 History [Flonase Nasal [place]] RX: Fluticasone/Salmeterol [Advair 1 puff INHALATION RT-BID 01/04/19 04/07/19 History 250-50 Diskus] RX: Insulin Aspart [NovoLOG 20 unit SQ AC-TID 01/04/19 04/07/19 History Flexpen] RX: Insulin Glargine,Hum.rec.anlog 20 unit SQ HS 01/04/19 04/07/19 History [Basaglar Kwikpen U-100] RX: Lubiprostone [Amitiza] 24 mcg PO BID 01/04/19 04/07/19 History RX: Metoprolol Tartrate [Lopressor] 150 mg PO BID 01/04/19 04/07/19 History RX: Nitroglycerin Sl Tabs 0.4 mg SUBLINGUAL Q5M PRN 01/04/19 04/07/19 History [Nitrostat] RX: Omeprazole [PriLOSEC] 20 mg PO DAILY 01/04/19 04/07/19 History RX: Citalopram Hydrobromide 10 mg PO DAILY #30 tab 01/06/19 04/07/19 Rx [CeleXA] Calcium Acetate [Phoslo] 1,334 mg PO AC-TID 04/07/19 04/07/19 History Gabapentin [Neurontin] 100 mg PO TID 04/07/19 04/07/19 History Morphine Sulfate ER [Ms Contin] 30 mg PO Q12HR 04/07/19 04/07/19 History RX: Lisinopril 30 mg PO DAILY 04/07/19 04/07/19 History Allergies Allergy/AdvReac Type Severity Reaction Status Date / Time No Known Allergies Allergy Verified 04/07/19 20:17 Physical Exam Vitals: Vital Signs Temp Pulse Pulse Resp BP BP Pulse Ox 04/08/19 08:15 79 18 121/63 98 04/08/19 08:00 98.2 F 80 18 121/63 98 04/08/19 07:45 80 18 121/63 98 04/08/19 07:30 80 18 121/63 99 08/15/19 07:27 80 04/08/19 07:15 80 18 121/63 99 04/08/19 07:13 80 04/08/19 07:00 80 18 98 04/08/19 06:45 80 18 98 04/08/19 06:30 80 18 98 04/08/19 06:15 79 18 98 04/08/19 06:00 79 18 98 04/08/19 05:45 80 18 98 04/08/19 05:30 79 18 99 04/08/19 05:15 80 18 99 04/08/19 05:00 78 18 100 04/08/19 04:45 78 18 121/63 100 04/08/19 04:30 78 18 100 04/08/19 04:15 78 18 100 04/08/19 04:00 100.3 F H 84 79 18 99 04/08/19 03:45 82 18 99 04/08/19 03:30 84 18 98 04/08/19 03:15 84 18 98 04/08/19 03:00 99.3 F 83 18 98 04/08/19 02:45 84 18 126/58 98 04/08/19 02:30 83 18 122/57 04/08/19 02:29 99.8 F H 123/57 04/08/19 02:15 80 18 98/54 04/08/19 02:00 77 18 194/79 98 04/08/19 01:45 77 18 77/43 04/08/19 01:30 74 18 82/48 100 04/08/19 01:15 89 18 92/49 93 L 04/08/19 01:00 89 18 56/27 85 L 04/08/19 00:45 95 28 H 102/49 71 L 04/08/19 00:30 90 26 H 119/57 04/08/19 00:18 99.3 F 93 20 95 04/08/19 00:15 86 18 04/07/19 23:55 20 04/07/19 22:50 93 16 128/57 91 L 04/07/19 22:40 90 12 120/54 88 L 04/07/19 22:30 91 14 124/59 92 L 04/07/19 22:20 87 16 111/55 91 L 04/07/19 22:10 87 16 122/52 88 L 04/07/19 22:09 14 04/07/19 22:08 14 04/07/19 22:00 85 14 119/59 94 L 04/07/19 21:50 84 14 108/61 96 04/07/19 21:49 83 04/07/19 21:40 82 18 107/57 99 04/07/19 21:30 81 16 98/55 99 04/07/19 21:28 81 04/07/19 21:20 79 16 102/54 100 04/07/19 21:13 79 04/07/19 21:10 80 18 105/61 91 L 04/07/19 21:00 98.3 F 81 16 103/65 105/61 92 L 04/07/19 20:50 84 16 103/58 97 04/07/19 20:40 84 16 101/57 96 04/07/19 20:30 84 16 100/54 97 04/07/19 20:20 85 16 116/64 96 04/07/19 20:10 16 103/57 04/07/19 20:00 143/57 04/07/19 19:13 98 12 139/59 93 L Intake and Output 04/07/19 04/08/19 04/08/19 22:59 06:59 14:59 Intake Total 345 200 Output Total 479 15 Balance -134 185 Intake: Intake, IV Titration 0 200 Amount Calcium Gluconate 1 gm In 100 Sodium Chloride 0.9% 100 ml @ 100 mls/hr IVPB ONCE ONE Rx#:[id number] Norepinephrine 4 mg In 0 Sodium Chloride 0.9% 250 ml @ 0.05 MCG/KG/MIN 18. 146 mls/hr IV .Q14H ON LICENSE OF [facility] Rx#:[id number] Propofol 1,000 mg In 100 Empty Bag 1 bag @ Titrate IV .Q0M ON LICENSE OF [facility] Rx#: [id number] Hemodialysis 345 Output: Urine 479 15 Other: Voiding Method Indwelling Catheter Indwelling Catheter # Voids 0 Weight 95.254 kg 95.3 kg ABP, PAP, CO, CI - Last 8 Hours Arterial Blood Pressure 102/45 Arterial Blood Pressure 95/48 Arterial Blood Pressure 102/48 Arterial Blood Pressure 117/52 Arterial Blood Pressure 110/51 Arterial Blood Pressure 105/49 Arterial Blood Pressure 109/50 Arterial Blood Pressure 109/48 Arterial Blood Pressure 110/48 Arterial Blood Pressure 111/48 Arterial Blood Pressure 111/48 Arterial Blood Pressure 113/50 Arterial Blood Pressure 109/48 Arterial Blood Pressure 143/29 Arterial Blood Pressure 128/48 Arterial Blood Pressure 116/45 Arterial Blood Pressure 139/45 Arterial Blood Pressure 107/39 Arterial Blood Pressure 122/40 Arterial Blood Pressure 118/37 Arterial Blood Pressure 110/37 Arterial Blood Pressure 135/41 GEN appears comfortable comfortable intubated on a mechanical ventilator. Head exam was generally normal. There was no scleral icterus or corneal arcus. Mucous membranes were moist. Neck was supple and without jugular venous distension, thyromegaly, or carotid bruits. Carotids were easily palpable bilaterally. There was no adenopathy. The patient is a right IJ triple lumen catheter in place. Orogastric and orotrach eal tube are both in place. Lungs were clear to auscultation and percussion, and with normal diaphragmatic excursion. No wheezes or rales were noted. Cardiac exam revealed the PMI to be normally situated and sized. The rhythm was regular and no extrasystoles were noted during several minutes of auscultation. The first and second heart sounds were normal and physiologic splitting of the second heart sound was noted. There were no murmurs, rubs, clicks, or gallops. Abdominal exam revealed normal bowel sounds. The abdomen was soft, non-tender, and without masses, organomegaly, or appreciable enlargement of the abdominal aorta. Extremities revealed an AV graft in the left upper extremity. The patient has an a line in the right radial artery. No cyanosis no clubbing. Pulses are diminished at the present in the lower extremity is bilaterally. External wheezes are warm. There is no cyanosis or clubbing at this point in time. Neurologically the patient sedated with propofol. The patient is withdrawing to deep painful stimulation no 4 extremities. Pupils are equal and reactive to light around 3 mm and the patient has no preferential gaze or facial asymmetry at this point in time. Results - Laboratory Findings CBC and BMP: 04/08/19 04:46 04/08/19 04:46 ABG ABG pH 7.29 (7.35-7.45) L 04/08/19 04:54 ABG pCO2 53 mmHg (35-45) H 04/08/19 04:54 ABG pO2 167 mmHg (83-108) H 04/08/19 04:54 ABG O2 Saturation 100.0 % (94-97) H 04/08/19 04:54 PT/INR, D-dimer PT 10.4 sec (9.0-12.0) 04/07/19 19:28 INR 1.0 (<1.2) 04/07/19 19:28 Abnormal lab findings: Abnormal Labs 04/07/19 04/07/19 04/07/19 19:28 19:28 19:28 WBC 16.2 H RBC 3.87 L Hgb 12.9 L Hct MCV 102.1 H RDW 17.9 H Plt Count 98 L Neutrophils # 14.1 H ABG pH ABG pCO2 ABG pO2 ABG HCO3 ABG Total CO2 ABG O2 Saturation Sodium Potassium 8.3 H* Chloride 96 L BUN 85 H Creatinine 8.78 H* Glucose 229 H POC Glucose (mg/dL) Plasma Lactic Acid [place] 3.1 H* Calcium 5.7 L* Ionized Calcium Rakel Phosphorus Troponin I Lipase 641 H Urine Protein Urine Glucose (UA) Urine Mucus 04/07/19 04/07/19 04/08/19 19:28 19:43 00:11 WBC RBC Hgb Hct MCV RDW Plt Count Neutrophils # ABG pH ABG pCO2 ABG pO2 ABG HCO3 ABG Total CO2 ABG O2 Saturation Sodium Potassium Chloride BUN Creatinine Glucose POC Glucose (mg/dL) 234 H 218 H Plasma Lactic Acid [place] Calcium Ionized Calcium R[place] Phosphorus Troponin I 0.712 H* Lipase Urine Protein Urine Glucose (UA) Urine Mucus 04/08/19 04/08/19 04/08/19 00:19 01:45 01:47 WBC RBC Hgb Hct MCV RDW Plt Count Neutrophils # ABG pH 7.23 L 7.26 L ABG pCO2 61 H 64 H ABG pO2 129 H >400 H ABG HCO3 29 H ABG Total CO2 27 H 31 H ABG O2 Saturation 99.0 H 100.0 H Sodium Potassium 2.9 L Chloride 96 L BUN 34 H Creatinine 3.27 H Glucose 148 H POC Glucose (mg/dL) Plasma Lactic Acid [place] Calcium 6.7 L Ionized Calcium R[place]el Phosphorus Troponin I Lipase Urine Protein Urine Glucose (UA) Urine Mucus 04/08/19 04/08/19 04/08/19 02:57 04:46 04:46 WBC 18.3 H RBC 3.34 L Hgb 11.1 L Hct 33.4 L MCV RDW 16.7 H Plt Count 94 L Neutrophils # 16.0 H ABG pH ABG pCO2 ABG pO2 ABG HCO3 ABG Total CO2 ABG O2 Saturation Sodium 135 L Potassium Chloride 95 L BUN 51 H Creatinine 5.85 H Glucose 226 H POC Glucose (mg/dL) Plasma Lactic Acid [place] Calcium 6.3 L* Ionized Calcium [place] Phosphorus 7.6 H Troponin I Lipase Urine Protein 2+ H Urine Glucose (UA) 1+ H Urine Mucus Rare H 04/08/19 04/08/19 04/08/19 04:54 05:50 07:12 WBC RBC Hgb Hct MCV RDW Plt Count Neutrophils # ABG pH 7.29 L ABG pCO2 53 H ABG pO2 167 H ABG HCO3 26 H ABG Total CO2 27 H ABG O2 Saturation 100.0 H Sodium Potassium Chloride BUN Creatinine Glucose POC Glucose (mg/dL) 274 H Plasma Lactic Acid [place] Calcium Ionized Calcium Rakel 3.3 L* Phosphorus Troponin I Lipase Urine Protein Urine Glucose (UA) Urine Mucus - Diagnostic Findings Chest x-ray: image reviewed Assessment and Plan Plan: 1 altered mental status, probably multifactorial as the patient could have been encephalopathic secondary to uremia/missed dialysis and in same time there is a concern that the patient has taken excessive amount of narcotic medications as the patient is on a combination of [place] and [place] Contin on outpatient basis. In any rate, the patient had a negative computed tomography scan of the brain and CT angios the brain and he did not respond to Narcan. During the process, the patient had to be intubated and placed on a mechanical ventilator. The patient also underwent a session of hemodialysis ultrafiltration yesterday. 2 acute hypoxic respiratory failure with a component of fluid overload, currently intubated on a mechanical ventilator with adequate oxygenation. Blood gases from today still showing a component of mild respiratory acidosis 3 hypotension currently on norepinephrine infusion at 0.1 g per KG per minute. Consider underlying septic event. 4 End stage renal disease on hemodialysis 3 times a week MWF 5 coronary artery disease with limited troponin leak, type II cardiac injury 6 CHF with systolic heart failure with an ejection fraction of 30-35% and segmental wall motion abnormalities based on previous echocardiogram 7 leukocytosis 8 chronic thrombocytopenia 9 acute hyperkalemia treated the patient's potassium level is down to 4.5 and he was treated per protocol regarding hyperkalemia and he has undergone a session of hemodialysis 10 COPD 11 diabetes mellitus type 2 13 peripheral neuropathy 14 chronic alcoholism none for now 15 history of chronic pancreatitis 16 previous history of CVA with some right-sided weakness 17 previous history of ARDS requiring intubation and prolonged mechanical ventilation requiring tracheostomy tube insertion 18 chronic thrombocytopenia related to above 19 splenomegaly 20 previous history of esophageal varices without previous bleeding 21 previous history of narcotic/opiate overdose 22 hypokalemia, being replaced Plan To a mechanical ventilator and increased respiratory rate up to 24 acute the tidal volume at 500. At the FiO2 down to 40%. Cover this patient empirically with IV Zosyn. Obtain blood cultures. Repeat echocardiogram in regards to his hypotension and we'll gradually wean off the pressors if possible. Check follow-up troponins. Hold metoprolol for now. Keep the patient sedated for next 24 hours. Initiate low-dose tube feeds at the rate of 10 mL's an hour. Hold narcotic medications including MS Contin and [place] for now. IV Protonix. Heparin subcu for DVT prophylaxis. Levemir insulin 20 units along with vascular coverage. We'll continue to follow. Condition is critical. We'll make further recommendations based on his progress. Time with Patient: Greater than 30
[2019-04-08] MEDS: NOREPINEPHRINE 32 MG in SODIUM CHLORIDE 0.9% 218 ML IV SCH (09:36)
[2019-04-08] MEDS: CHLORHEXIDINE GLUCONATE 15 ML CUP MUCOUS MEM SCH ×2 (09:53→22:04)
[2019-04-08] MEDS: LACTULOSE 20 GM/30 ML CUP PO SCH (09:55)
[2019-04-08] MEDS: CITALOPRAM HYDROBROMIDE 10 MG TAB PO SCH (09:55)
[2019-04-08] MEDS: PANTOPRAZOLE 40 MG TABLET PO SCH (09:55)
[2019-04-08] MEDS: ARIPiprazole 5 MG TAB PO SCH (09:56)
[2019-04-08] MEDS ORDERED: PIPERACILLIN-TAZOBACTAM 3.375 GM in SODIUM CHLORIDE 0.9% 100 ML IVPB SCH (10:00)
[2019-04-08] MEDS: Lubiprostone [Amitiza] 24 MCG PO SCH ×2 (10:01→21:59)
[2019-04-08 10:59] LABS: Creatine Kinase MB 15.9 ng/mL (0.0-2.4)
[2019-04-08 11:01] LABS: Troponin I 3.8 ng/mL (0.000-0.034)
[2019-04-08 11:11] LABS: Hepatitis B Surface AB- Quant 3.5 mIU/mL; Hepatitis B Surface Antibody Non-Reactive (Non-Reactive); Hepatitis B Surface Antigen Non-Reactive (Non-Reactive)
[2019-04-08 11:59] LABS: Glucose,Whole Blood 185 mg/dL (75-99)
--- NOTE | 2019-04-08 13:15 | P.CRDCN ---
History of Present Illness Consult date: 04/08/19 Chief complaint: Change in mental status History of present illness: This is a 58-year-old gentleman who I requested to see earlier today for further evaluation off abnormal cardiac enzymes. Currently the patient is intubated and he is on mechanical ventilation. The history was taken from the nurse taking care of the patient as well as from the electronic medical records. The patient does have an extensive past medical history consistent of coronary artery disease, ischemic cardiomyopathy, hypertension, dyslipidemia, end stage renal disease on hemodialysis, as well as diabetes. Beside that he does have obstructive sleep apnea as well as chronic hypoxic respiratory failure. The last heart catheterization was performed in 2013 where at that point he underwent stenting of the right coronary artery. The last echocardiogram was performed in 2018 and that revealed cardiomyopathy with EF around 35-40% with evidence of wall motion abnormalities. This time, the patient was brought to the emergency room by his family with a change in mental status. He called his telling her that he was not feeling well. No indication of any chest pain or chest discomfort. Before that the patient skipped dialysis. When his arrived to see him the patient was lethargic and because of that he was brought to the emergency room. In the emergency room, the patient was quite lethargic and obtunded. He was at home receiving pain medication and apparently the patient took extra dose of narcotics. Beside that in the emergency room the patient was found to be hypotensive. Subsequently, the patient was intubated and placed on mechanical ventilation. He was also started on vasopressors was norepinephrine. There is a possible component of sepsis going on at this point as well and currently infectious disease is on 4 to see the patient. The EKG showed sinus rhythm with first-degree AV block with evidence of inferior as well as anterior MO, both seems to be old, without any ischemic ST or T-wave abnormalities concerning for ischemia. The first set of troponin came in to be an 0.7 but the second set of troponin came in to be a 3.1. Beside that, the hemoglobin has been stable around 11. The chest x-ray showed findings co nsistent with fluid overload. The sodium and potassium are within normal limits. Currently the patient is on mechanical ventilation with a PEEP of 5 and FiO2 of 40. He is not making urine. Currently he is in process of having Her filtration. Past Medical History Past Medical History: Coronary Artery Disease (CAD), Chest Pain / Angina, Heart Failure, COPD, CVA/TIA, Diabetes Mellitus, GERD/Reflux, Hyperlipidemia, Hypertension, Osteoarthritis (OA), Renal Disease, Respiratory Disorder, Sleep Apnea/CPAP/BIPAP Additional Past Medical History / Comment(s): Known history of coronary artery disease, congestion heart failure with segmental wall motion abnormalities and ejection fraction of 30%, COPD, diabetes mellitus type 2, peripheral neuropathy, end-stage renal disease currently on hemodialysis 3 times a week MWF, history of alcoholism, history of chronic pancreatitis, the patient has not drank alcohol for more than 70s, history of chronic CVA with some right-sided weakness, history of ARDS requiring intubation mechanical ventilation and was quite prolonged and the patient required tracheostomy tube insertion for that, history of splenomegaly, chronic anemia, chronic back pain, chronic neck pain, chronic narcotic dependence him a chronic thrombocytopenia, hypertension, history of esophageal varices without bleeding, history of opiate overdose History of Any Multi-Drug Resistant Organisms: None Reported Past Surgical History: Appendectomy, Back Surgery, Cholecystectomy, Heart Catheterization, Heart Catheterization With Stent Additional Past Surgical History / Comment(s): PCI with stents, tracheostomy, bladder stone removal, anterior cervical disc fusion/plate, jugular catheter insertion since removed, colonoscopy."dialysis graft site lt upper arm"-no bp or blood draw lt arm, peritoneal catheter-since removed. Past Anesthesia/Blood Transfusion Reactions: No Reported Reaction Date of Last Stent Placement:: 2013 Past Psychological History: Anxiety, Depression Additional Psychological History / Comment(s): Pt resides with his spouse and their 2 sons, one of which is a handicapped minor and the other an adult. Pt has a glucometer. He drives. Smoking Status: Former smoker Past Alcohol Use History: None Reported Additional Past Alcohol Use History / Comment(s): Quit smoking 1990, smoked approx 23 yrs 1ppd, no alcohol for over 7 yrs. Past Drug Use History: None Reported - Past Family History Father Family Medical History: Coronary Artery Disease (CAD), Myocardial Infarction (MO) Additional Family Medical History / Comment(s): Father of a MO at the age of 65yrs. Mother Family Medical History: Coronary Artery Disease (CAD), Myocardial Infarction (MO) Additional Family Medical History / Comment(s): Mother of a MO at the age of 55yrs. Brother(s) Family Medical History: Cancer Daughter(s) Family Medical History: Vascular Disorder (VSD) Medications and Allergies Home Medications Medication Instructions Recorded Confirmed Type Atorvastatin Calcium [Lipitor] 80 mg PO HS #30 tab 03/01/14 04/07/19 Rx ALPRAZolam [Xanax] 0.125 mg PO HS PRN 06/04/18 04/07/19 History HYDROcodone/APAP 10-325MG [[place] 1 tab PO Q4H 06/04/18 04/07/19 History 10-325] hydrALAZINE HCL [Apresoline] 50 mg PO TID #90 tab 06/15/18 04/07/19 Rx Docusate [Colace] 100 mg PO DAILY PRN cap 06/28/18 04/07/19 Rx Ferrous Sulfate [Feosol] 325 mg PO TID #90 tab 06/28/18 04/07/19 Rx Lactulose [Cephulac] 30 gm PO DAILY #1 bottle 06/28/18 04/07/19 Rx ARIPiprazole [Abilify] 5 mg PO DAILY 01/04/19 04/07/19 History Albuterol Sulfate [Proair Hfa] 2 puff INHALATION RT-QID PRN 01/04/19 04/07/19 History Bumetanide [BUMEX] 2 mg PO BID 01/04/19 04/07/19 History Dialyvite 1 tab PO DAILY 01/04/19 04/07/19 History Fluticasone Nasal [place] [Flonase 2 spr EA NOSTRIL DAILY 01/04/19 04/07/19 History Nasal [place]] Fluticasone/Salmeterol [Advair 1 puff INHALATION RT-BID 01/04/19 04/07/19 History 250-50 Diskus] Insulin Aspart [NovoLOG Flexpen] 20 unit SQ AC-TID 01/04/19 04/07/19 History Insulin Glargine,Hum.rec.anlog 20 unit SQ HS 01/04/19 04/07/19 History [Basaglar Kwikpen U-100] Lubiprostone [Amitiza] 24 mcg PO BID 01/04/19 04/07/19 History Metoprolol Tartrate [Lopressor] 150 mg PO BID 01/04/19 04/07/19 History Nitroglycerin Sl Tabs [Nitrostat] 0.4 mg SUBLINGUAL Q5M PRN 01/04/19 04/07/19 History Omeprazole [PriLOSEC] 20 mg PO DAILY 01/04/19 04/07/19 History Citalopram Hydrobromide [CeleXA] 10 mg PO DAILY #30 tab 01/06/19 04/07/19 Rx Calcium Acetate [Phoslo] 1,334 mg PO AC-TID 04/07/19 04/07/19 History Gabapentin [Neurontin] 100 mg PO TID 04/07/19 04/07/19 History Lisinopril 30 mg PO DAILY 04/07/19 04/07/19 History Morphine Sulfate ER [Ms Contin] 30 mg PO Q12HR 04/07/19 04/07/19 History Allergies Allergy/AdvReac Type Severity Reaction Status Date / Time No Known Allergies Allergy Verified 04/07/19 20:17 Physical Exam Vitals: Vital Signs Temp Pulse Pulse Resp BP BP Pulse Ox 04/08/19 12:00 99 04/08/19 11:46 65 24 99 04/08/19 11:36 67 04/08/19 11:30 67 24 99 04/08/19 11:19 66 04/08/19 11:15 69 24 99 04/08/19 11:00 70 24 99 04/08/19 10:45 71 24 142/63 99 04/08/19 10:30 72 24 98 04/08/19 10:15 74 24 98 04/08/19 10:00 73 24 99 04/08/19 09:45 75 24 98 04/08/19 09:30 76 18 142/63 98 04/08/19 09:15 78 18 98 04/08/19 09:00 78 18 98 04/08/19 08:45 77 18 89/46 98 04/08/19 08:30 78 18 121/63 98 04/08/19 08:15 79 18 121/63 98 04/08/19 08:00 98.2 F 80 18 121/63 98 04/08/19 07:45 80 18 121/63 98 04/08/19 07:30 80 18 121/63 99 04/08/19 07:27 80 04/08/19 07:15 80 18 121/63 99 04/08/19 07:13 80 04/08/19 07:00 80 18 98 04/08/19 06:45 80 18 98 04/08/19 06:30 80 18 98 04/08/19 06:15 79 18 98 04/08/19 06:00 79 18 98 04/08/19 05:45 80 18 98 04/08/19 05:30 79 18 99 04/08/19 05:15 80 18 99 04/08/19 05:00 78 18 100 04/08/19 04:45 78 18 121/63 100 04/08/19 04:30 78 18 100 04/08/19 04:15 78 18 100 04/08/19 04:00 100.3 F H 84 79 18 99 04/08/19 03:45 82 18 99 04/08/19 03:30 84 18 98 04/08/19 03:15 84 18 98 04/08/19 03:00 99.3 F 83 18 98 04/08/19 02:45 84 18 126/58 98 04/08/19 02:30 83 18 122/57 04/08/19 02:29 99.8 F H 123/57 04/08/19 02:15 80 18 98/54 04/08/19 02:00 77 18 194/79 98 04/08/19 01:45 77 18 77/43 04/08/19 01:30 74 18 82/48 100 04/08/19 01:15 89 18 92/49 93 L 04/08/19 01:00 89 18 56/27 85 L 04/08/19 00:45 95 28 H 102/49 71 L 04/08/19 00:30 90 26 H 119/57 04/08/19 00:18 99.3 F 93 20 95 04/08/19 00:15 86 18 04/07/19 23:55 20 04/07/19 22:50 93 16 128/57 91 L 04/07/19 22:40 90 12 120/54 88 L 04/07/19 22:30 91 14 124/59 92 L 04/07/19 22:20 87 16 111/55 91 L 04/07/19 22:10 87 16 122/52 88 L 04/07/19 22:09 14 04/07/19 22:08 14 04/07/19 22:00 85 14 119/59 94 L 04/07/19 21:50 84 14 108/61 96 04/07/19 21:49 83 04/07/19 21:40 82 18 107/57 99 04/07/19 21:30 81 16 98/55 99 04/07/19 21:28 81 04/07/19 21:20 79 16 102/54 100 04/07/19 21:13 79 04/07/19 21:10 80 18 105/61 91 L 04/07/19 21:00 98.3 F 81 16 103/65 105/61 92 L 04/07/19 20:50 84 16 103/58 97 04/07/19 20:40 84 16 101/57 96 04/07/19 20:30 84 16 100/54 97 04/07/19 20:20 85 16 116/64 96 04/07/19 20:10 16 103/57 04/07/19 20:00 143/57 04/07/19 19:13 98 12 139/59 93 L Intake and Output 04/07/19 04/08/19 04/08/19 22:59 06:59 14:59 Intake Total 345 322.084 Output Total 479 39 Balance -134 283.084 Intake: Intake, IV Titration 0 302.084 Amount Calcium Gluconate 1 gm In 100 Sodium Chloride 0.9% 100 ml @ 100 mls/hr IVPB ONCE ONE Rx#:[id number] Norepinephrine 32 mg In 2.084 Sodium Chloride 0.9% 218 ml @ 0.12 MCG/KG/MIN 5. 358 mls/hr IV .Q24H [facility] Rx#:[id number] Norepinephrine 4 mg In 0 Sodium Chloride 0.9% 250 ml @ 0.05 MCG/KG/MIN 18. 146 mls/hr IV .Q14H [facility] Rx#:[id number] Propofol 1,000 mg In 200 Empty Bag 1 bag @ Titrate IV .Q0M [facility] Rx#: [id number] Tube Feeding 20 Hemodialysis 345 Output: Urine 479 39 Other: Voiding Method Indwelling Catheter Indwelling Catheter # Voids 0 0 Weight 95.254 kg 95.3 kg 95.3 kg ABP, PAP, CO, CI - Last 8 Hours Arterial Blood Pressure 151/81 Arterial Blood Pressure 160/62 Arterial Blood Pressure 95/54 Arterial Blood Pressure 168/64 Arterial Blood Pressure 81/54 Arterial Blood Pressure 100/47 Arterial Blood Pressure 148/58 Arterial Blood Pressure 74/37 Arterial Blood Pressure 127/51 Arterial Blood Pressure 126/52 Arterial Blood Pressure 102/45 Arterial Blood Pressure 95/48 Arterial Blood Pressure 102/48 Arterial Blood Pressure 117/52 Arterial Blood Pressure 110/51 Arterial Blood Pressure 105/49 Arterial Blood Pressure 109/50 Arterial Blood Pressure 109/48 Arterial Blood Pressure 110/48 Arterial Blood Pressure 111/48 Arterial Blood Pressure 111/48 Arterial Blood Pressure 113/50 Arterial Blood Pressure 109/48 - Constitutional General appearance: no acute distress - Respiratory Respiratory: bilateral: diminished - Cardiovascular Rhythm: regular Heart sounds: normal: S1, S2 Results 04/08/19 04:46 04/08/19 04:46 Cardiac Enzymes 04/07/19 04/07/19 04/08/19 Range/Units 19:28 19:28 09:45 AST 54 (17-59) U/L CK-MB (CK-2) 15.9 H (0.0-2.4) ng/mL Troponin I 0.712 H* 3.800 H* (0.000-0.034) ng/mL Coagulation 04/07/19 Range/Units 19:28 PT 10.4 (9.0-12.0) sec APTT 23.8 (22.0-30.0) sec CBC 04/07/19 04/08/19 Range/Units 19:28 04:46 WBC 16.2 H 18.3 H (3.8-10.6) k/uL RBC 3.87 L 3.34 L (4.30-5.90) m/uL Hgb 12.9 L 11.1 L (13.0-17.5) gm/dL Hct 39.5 33.4 L (39.0-53.0) % Plt Count 98 L 94 L (150-450) k/uL Comprehensive Metabolic Panel 04/07/19 04/08/19 04/08/19 Range/Units 19:28 01:45 04:46 Sodium 137 138 135 L (137-145) mmol/L Potassium 8.3 H* 2.9 L 4.5 (3.5-5.1) mmol/L Chloride 96 L 96 L 95 L (98-107) mmol/L Carbon Dioxide 23 29 25 (22-30) mmol/L BUN 85 H 34 H 51 H (9-20) mg/dL Creatinine 8.78 H* 3.27 H 5.85 H (0.66-1.25) mg/dL Glucose 229 H 148 H 226 H (74-99) mg/dL Calcium 5.7 L* 6.7 L 6.3 L* (8.4-10.2) mg/dL AST 54 (17-59) U/L ALT 39 (21-72) U/L Alkaline Phosphatase 97 (38-126) U/L Total Protein 7.4 (6.3-8.2) g/dL Albumin 4.5 (3.5-5.0) g/dL Current Medications Generic Name Dose Route Start Last Admin Trade Name Freq PRN Reason Stop Dose Admin Acetaminophen 650 mg 04/07/19 21:27 Tylenol Tab PO Q4HR PRN Fever and/or Mild Pain Albuterol Sulfate 2.5 mg 04/07/19 21:30 04/08/19 11:15 Ventolin Nebulized INHALATION 2.5 mg RT-QID PRN Administration Shortness Of Breath Aripiprazole 5 mg 04/08/19 09:00 04/08/19 09:56 Abilify PO 5 mg DAILY [facility]AN Administration Aspirin 81 mg 04/09/19 09:00 Aspirin PO DAILY N[facility]AN Atorvastatin Calcium 80 mg 04/08/19 21:00 Lipitor PO HS [facility] Chlorhexidine Gluconate 15 ml 04/08/19 09:00 04/08/19 09:53 Peridex MUCOUS MEM 15 ml BID [facility]AN Administration Citalopram Hydrobromide 10 mg 04/08/19 09:00 04/08/19 09:55 Celexa PO 10 mg DAILY [facility] Administration Gabapentin 100 mg 04/07/19 22:00 04/08/19 09:55 Neurontin PO 100 mg TID N[facility]AN Administration Hydralazine HCl 50 mg 04/07/19 22:00 04/08/19 11:56 Apresoline PO Not Given TID [facility] Norepinephrine Bitartrate 4 mg 254 mls @ 18.146 mls/hr 04/08/19 00:45 04/08/19 03:04 / Sodium Chloride IV 0.15 mcg/kg/min .Q14H [facility] 54.438 mls/hr Titration Protocol 0.05 MCG/KG/MIN Propofol 1,000 mg/ IV Solution 100 mls @ 0 mls/hr 04/08/19 01:00 04/08/19 12:50 IV 40 mcg/kg/min .Q0M [facility] 22.872 mls/hr Administration Protocol Titrate Norepinephrine Bitartrate 32 250 mls @ 5.358 mls/hr 04/08/19 05:00 04/08/19 10:04 mg/ Sodium Chloride IV 0.08 mcg/kg/min .Q24H [facility] 3.572 mls/hr Titration Protocol 0.12 MCG/KG/MIN Piperacillin Sod/Tazobactam 100 mls @ 25 mls/hr 04/08/19 10:00 Sod 3.375 gm/ Sodium Chloride IVPB Q12HR [facility] Insulin Aspart 0 unit 04/08/19 06:00 04/08/19 11:53 Novolog SQ 2 unit Q6HR [facility] Administration Protocol Insulin Detemir 20 unit 04/08/19 21:00 Levemir SQ HS [facility] Lactulose 30 gm 04/08/19 09:00 04/08/19 09:55 Cephulac PO 30 gm DAILY [facility] Administration Naloxone HCl 0.2 mg 04/07/19 21:27 04/07/19 23:55 Narcan IV 0.2 mg Q2M PRN Administration Opioid Reversal Lubiprostone [ 24 mcg 04/08/19 09:00 04/08/19 10:01 Amitiza] 24 Mcg PO Not Given BID [facility] Pantoprazole Sodium 40 mg 04/08/19 07:30 04/08/19 09:55 Protonix PO 40 mg DAILY@0730 [facility] Administration Intake and Output 04/07/19 04/08/19 04/08/19 22:59 06:59 14:59 Intake Total 345 322.084 Output Total 479 39 Balance -134 283.084 Intake: Intake, IV Titration 0 302.084 Amount Calcium Gluconate 1 gm In 100 Sodium Chloride 0.9% 100 ml @ 100 mls/hr IVPB ONCE ONE Rx#:[id number] Norepinephrine 32 mg In 2.084 Sodium Chloride 0.9% 218 ml @ 0.12 MCG/KG/MIN 5. 358 mls/hr IV .Q24H [facility] Rx#:[id number] Norepinephrine 4 mg In 0 Sodium Chloride 0.9% 250 ml @ 0.05 MCG/KG/MIN 18. 146 mls/hr IV .Q14H [facility] Rx#:[id number] Propofol 1,000 mg In 200 Empty Bag 1 bag @ Titrate IV .Q0M [facility] Rx#: [id number] Tube Feeding 20 Hemodialysis 345 Output: Urine 479 39 Other: Voiding Method Indwelling Catheter Indwelling Catheter # Voids 0 0 Weight 95.254 kg 95.3 kg 95.3 kg Patient Weight 04/09/19 06:59 Weight 95.3 kg 04/08/19 04:46 04/08/19 04:46 Assessment and Plan Assessment: Assessment #1 change in mental status could be secondary to narcotics overdose #2 acute hypoxic respiratory failure #3 acute non-ST elevation myocardial infarction #4 hypotension, could be cardiac related, and rule out sepsis component #5 into stage renal disease #6 coronary artery disease and prior revascularization #7 diabetes type 2 #8 multiple comorbid conditions Plan #1 continue ventilator support #2 consider treating the patient for acute coronary syndrome. #3 add aspirin to the current medical regimen #4 add heparin to the current medical regimen #5 hold any metoprolol into view of the low blood pressure and the need for norepinephrine #6 an echocardiogram was performed. Will follow-up with that. Rule out wall motion abnormalities as well as pericardial effusion #7 once he is more stable, he might need to undergo a coronary angiogram #8 follow-up with the patient Thank you for allowing us participate in his care
[2019-04-08] MEDS ORDERED: HEPARIN SOD,PORK IN 0.45% NACL 25,000 UNIT in 0.45% NACL 1 250ML.BAG IV SCH (14:00)
--- NOTE | 2019-04-08 14:12 | P.HPIM ---
History of Present Illness H&P Date: 04/08/19 Chief Complaint: Mental status changes This is a 58-year-old male patient of Dr. Drew and Dr. 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 Patient had previous admission June 2017 for metabolic encephalopathy and acute hypoxic hypercarbic respiratory failure secondary to acute diastolic heart failure and hypercarbia for which patient was briefly intubated. Followed by another admission for acute change in mental status, increased weakness worsening shortness of breath and cough. Patient was treated for sepsis, pancytopenia requiring transfusions, acute hypoxic hypercarbic respiratory failure requiring intubation secondary to fluid overload, acute on chronic systolic heart failure, possible gram-negative pneumonia that could not be ruled out during that admission. Patient had a prolonged course and was finally discharged on 06/15/2018. He was seen in June 2018 with pancytopenia secondary to chronic liver disease with bone marrow suppression from chronic alcohol use. He was s een by Dr. Major for esophageal varices and underlying possible cirrhosis as nodularity was noted on the liver with thrombocytopenia from hypersplenism. Patient was supposed to have EGD and colonoscopy and evaluation for possible kidney transplant. Patient presented to [facility] emergency center due to decreased level of consciousness. He apparently contacted his stating that he was not feeling well. He apparently skipped dialysis at least twice. According to the record, patient's found him to be quite sleepy and difficult to arouse. Patient was then brought into the hospital for evaluation. Patient is on [place] and morphine for chronic pain and was not determined patient had taken extra medication. Patient's apparently did not suspect a suicide attempt. The patient was given 3 doses of Narcan without much improvement. Lab work revealed potassium of 8.3, creatinine 85, creatinine 8.7. Blood sugar was 229. White cell count was at 16.2 with a hemoglobin was 12.9. The patient was given calcium gluconate. He also received D50 with insulin and albuterol for his hyperkalemia. CT of the brain and a CT angiogram that did not show any acute abnormalities. His EKG was sinus rhythm with a first-degree AV block. His troponin was at 0.7. Chest x-ray showed fluid overload/pulmonary edema. His lactic acid level was elevated at 3.1. Patient underwent emergent hemodialysis and transferred to the intensive care unit. Patient was initially on BiPAP but was subsequently intubated and placed on mechanical ventilation currently at tidal volume 500, FiO2 40, PEEP 5. The patient was then found to be hypotensive and was started on norepinephrine. WBC count went up to 18.3 and patient has been started on Zosyn and consult added for Dr. Nicholson. Patient also has the following consultants in place including cardiology for elevated troponins, nephrology for dialysis, Dr. Wharton for intensive care management, neurology to rule out CVA. Review of Systems ROS unobtainable: due to endotracheal tube Past Medical History Past Medical History: Coronary Artery Disease (CAD), Chest Pain / Angina, Heart Failure, COPD, CVA/TIA, Diabetes Mellitus, GERD/Reflux, Hyperlipidemia, Hypertension, Osteoarthritis (OA), Renal Disease, Respiratory Disorder, Sleep Apnea/CPAP/BIPAP Additional Past Medical History / Comment(s): Known history of coronary artery disease, congestion heart failure with segmental wall motion abnormalities and ejection fraction of 30%, COPD, diabetes mellitus type 2, peripheral neuropathy, end-stage renal disease currently on hemodialysis 3 times a week MW, history of alcoholism, history of chronic pancreatitis, the patient has not drank alcohol for more than 70s, history of chronic CVA with some right-sided weakness, history of ARDS requiring intubation mechanical ventilation and was quite prolonged and the patient required tracheostomy tube insertion for that, history of splenomegaly, chronic anemia, chronic back pain, chronic neck pain, chronic narcotic dependence him a chronic thrombocytopenia, hypertension, history of esophageal varices without bleeding, history of opiate overdose History of Any Multi-Drug Resistant Organisms: None Reported Past Surgical History: Appendectomy, Back Surgery, Cholecystectomy, Heart Catheterization, Heart Catheterization With Stent Additional Past Surgical History / Comment(s): PCI with stents, tracheostomy, bladder stone removal, anterior cervical disc fusion/plate, jugular catheter insertion since removed, colonoscopy."dialysis graft site lt upper arm"-no bp or blood draw lt arm, peritoneal catheter-since removed. Past Anesthesia/Blood Transfusion Reactions: No Reported Reaction Date of Last Stent Placement:: 2013 Past Psychological History: Anxiety, Depression Additional Psychological History / Comment(s): Pt resides with his spouse and their 2 sons, one of which is a handicapped minor and the other an adult. Pt has a glucometer. He drives. Smoking Status: Former smoker Past Alcohol Use History: None Reported Additional Past Alcohol Use History / Comment(s): Quit smoking 1990, smoked approx 23 yrs 1ppd, no alcohol for over 7 yrs. Past Drug Use History: None Reported - Past Family History Father Family Medical History: Coronary Artery Disease (CAD), Myocardial Infarction (DE) Additional Family Medical History / Comment(s): Father of a DE at the age of 65yrs. Mother Family Medical History: Coronary Artery Disease (CAD), Myocardial Infarction (DE) Additional Family Medical History / Comment(s): Mother of a DE at the age of 55yrs. Brother(s) Family Medical History: Cancer Daughter(s) Family Medical History: Vascular Disorder (VSD) Medications and Allergies Home Medications Medication Instructions Recorded Confirmed Type Atorvastatin Calcium [Lipitor] 80 mg PO HS #30 tab 03/01/14 04/07/19 Rx ALPRAZolam [Xanax] 0.125 mg PO HS PRN 06/04/18 04/07/19 History HYDROcodone/APAP 10-325MG [[place] 1 tab PO Q4H 06/04/18 04/07/19 History 10-325] hydrALAZINE HCL [Apresoline] 50 mg PO TID #90 tab 06/15/18 04/07/19 Rx Docusate [Colace] 100 mg PO DAILY PRN cap 06/28/18 04/07/19 Rx Ferrous Sulfate [Feosol] 325 mg PO TID #90 tab 06/28/18 04/07/19 Rx Lactulose [Cephulac] 30 gm PO DAILY #1 bottle 06/28/18 04/07/19 Rx ARIPiprazole [Abilify] 5 mg PO DAILY 01/04/19 04/07/19 History Albuterol Sulfate [Proair Hfa] 2 puff INHALATION RT-QID PRN 01/04/19 04/07/19 History Bumetanide [BUMEX] 2 mg PO BID 01/04/19 04/07/19 History Dialyvite 1 tab PO DAILY 01/04/19 04/07/19 History Fluticasone Nasal [place] [Flonase 2 spr EA NOSTRIL DAILY 01/04/19 04/07/19 History Nasal [place]] Fluticasone/Salmeterol [Advair 1 puff INHALATION RT-BID 01/04/19 04/07/19 History 250-50 Diskus] Insulin Aspart [NovoLOG Flexpen] 20 unit SQ AC-TID 01/04/19 04/07/19 History Insulin Glargine,Hum.rec.anlog 20 unit SQ HS 01/04/19 04/07/19 History [Basaglar Kwikpen U-100] Lubiprostone [Amitiza] 24 mcg PO BID 01/04/19 04/07/19 History Metoprolol Tartrate [Lopressor] 150 mg PO BID 01/04/19 04/07/19 History Nitroglycerin Sl Tabs [Nitrostat] 0.4 mg SUBLINGUAL Q5M PRN 01/04/19 04/07/19 History Omeprazole [PriLOSEC] 20 mg PO DAILY 01/04/19 04/07/19 History Citalopram Hydrobromide [CeleXA] 10 mg PO DAILY #30 tab 01/06/19 04/07/19 Rx Calcium Acetate [Phoslo] 1,334 mg PO AC-TID 04/07/19 04/07/19 History Gabapentin [Neurontin] 100 mg PO TID 04/07/19 04/07/19 History Lisinopril 30 mg PO DAILY 04/07/19 04/07/19 History Morphine Sulfate ER [Ms Contin] 30 mg PO Q12HR 04/07/19 04/07/19 History Allergies Allergy/AdvReac Type Severity Reaction Status Date / Time No Known Allergies Allergy Verified 04/07/19 20:17 Physical Exam Vitals: Vital Signs Temp Pulse Pulse Resp BP BP Pulse Ox 04/08/19 12:00 99 04/08/19 11:46 65 24 99 04/08/19 11:36 67 04/08/19 11:30 67 24 99 04/08/19 11:19 66 04/08/19 11:15 69 24 99 04/08/19 11:00 70 24 99 08/15/19 10:45 71 24 142/63 99 04/08/19 10:30 72 24 98 04/08/19 10:15 74 24 98 04/08/19 10:00 73 24 99 04/08/19 09:45 75 24 98 04/08/19 09:30 76 18 142/63 98 04/08/19 09:15 78 18 98 04/08/19 09:00 78 18 98 04/08/19 08:45 77 18 89/46 98 04/08/19 08:30 78 18 121/63 98 04/08/19 08:15 79 18 121/63 98 04/08/19 08:00 98.2 F 80 18 121/63 98 04/08/19 07:45 80 18 121/63 98 04/08/19 07:30 80 18 121/63 99 04/08/19 07:27 80 04/08/19 07:15 80 18 121/63 99 04/08/19 07:13 80 04/08/19 07:00 80 18 98 04/08/19 06:45 80 18 98 04/08/19 06:30 80 18 98 04/08/19 06:15 79 18 98 04/08/19 06:00 79 18 98 04/08/19 05:45 80 18 98 04/08/19 05:30 79 18 99 04/08/19 05:15 80 18 99 04/08/19 05:00 78 18 100 04/08/19 04:45 78 18 121/63 100 04/08/19 04:30 78 18 100 04/08/19 04:15 78 18 100 04/08/19 04:00 100.3 F H 84 79 18 99 04/08/19 03:45 82 18 99 04/08/19 03:30 84 18 98 04/08/19 03:15 84 18 98 04/08/19 03:00 99.3 F 83 18 98 04/08/19 02:45 84 18 126/58 98 04/08/19 02:30 83 18 122/57 04/08/19 02:29 99.8 F H 123/57 04/08/19 02:15 80 18 98/54 04/08/19 02:00 77 18 194/79 98 04/08/19 01:45 77 18 77/43 04/08/19 01:30 74 18 82/48 100 04/08/19 01:15 89 18 92/49 93 L 04/08/19 01:00 89 18 56/27 85 L 04/08/19 00:45 95 28 H 102/49 71 L 04/08/19 00:30 90 26 H 119/57 04/08/19 00:18 99.3 F 93 20 95 04/08/19 00:15 86 18 04/07/19 23:55 20 04/07/19 22:50 93 16 128/57 91 L 04/07/19 22:40 90 12 120/54 88 L 04/07/19 22:30 91 14 124/59 92 L 04/07/19 22:20 87 16 111/55 91 L 04/07/19 22:10 87 16 122/52 88 L 04/07/19 22:09 14 04/07/19 22:08 14 04/07/19 22:00 85 14 119/59 94 L 04/07/19 21:50 84 14 108/61 96 04/07/19 21:49 83 04/07/19 21:40 82 18 107/57 99 04/07/19 21:30 81 16 98/55 99 04/07/19 21:28 81 04/07/19 21:20 79 16 102/54 100 04/07/19 21:13 79 04/07/19 21:10 80 18 105/61 91 L 04/07/19 21:00 98.3 F 81 16 103/65 105/61 92 L 04/07/19 20:50 84 16 103/58 97 04/07/19 20:40 84 16 101/57 96 04/07/19 20:30 84 16 100/54 97 04/07/19 20:20 85 16 116/64 96 04/07/19 20:10 16 103/57 04/07/19 20:00 143/57 04/07/19 19:13 98 12 139/59 93 L Intake and Output 04/07/19 04/08/19 04/08/19 22:59 06:59 14:59 Intake Total 345 322.084 Output Total 479 39 Balance -134 283.084 Intake: Intake, IV Titration 0 302.084 Amount Calcium Gluconate 1 gm In 100 Sodium Chloride 0.9% 100 ml @ 100 mls/hr IVPB ONCE ONE Rx#:[id number] Norepinephrine 32 mg In 2.084 Sodium Chloride 0.9% 218 ml @ 0.12 MCG/KG/MIN 5. 358 mls/hr IV .Q24H [facility] Rx#:[id number] Norepinephrine 4 mg In 0 Sodium Chloride 0.9% 250 ml @ 0.05 MCG/KG/MIN 18. 146 mls/hr IV .Q14H [facility] Rx#:[id number] Propofol 1,000 mg In 200 Empty Bag 1 bag @ Titrate IV .Q0M [facility] Rx#: [id number] Tube Feeding 20 Hemodialysis 345 Output: Urine 479 39 Other: Voiding Method Indwelling Catheter Indwelling Catheter # Voids 0 0 Weight 95.254 kg 95.3 kg 95.3 kg ABP, PAP, CO, CI - Last 8 Hours Arterial Blood Pressure 151/81 Arterial Blood Pressure 160/62 Arterial Blood Pressure 95/54 Arterial Blood Pressure 168/64 Arterial Blood Pressure 81/54 Arterial Blood Pressure 100/47 Arterial Blood Pressure 148/58 Arterial Blood Pressure 74/37 Arterial Blood Pressure 127/51 Arterial Blood Pressure 126/52 Arterial Blood Pressure 102/45 Arterial Blood Pressure 95/48 Arterial Blood Pressure 102/48 Arterial Blood Pressure 117/52 Arterial Blood Pressure 110/51 Arterial Blood Pressure 105/49 Arterial Blood Pressure 109/50 Arterial Blood Pressure 109/48 Arterial Blood Pressure 110/48 Arterial Blood Pressure 111/48 Arterial Blood Pressure 111/48 Arterial Blood Pressure 113/50 Arterial Blood Pressure 109/48 Gen: This is a 58-year-old male. He is intubated and on mechanical ventilation. Patient is currently undergoing hemodialysis treatment. HEENT: Head is atraumatic, normocephalic. Pupils equal, round. Sclerae is anict cuate. Oral mucous membranes are moist. Oral gastric and ET tube in place. NECK: Supple. No JVD. No lymphadenopathy. No thyromegaly. LUNGS: Clear to auscultation. No wheezes or rhonchi. No intercostal retractions. HEART: Regular rate and rhythm. No murmur. ABDOMEN: Soft. Bowel sounds are present. No masses. No tenderness. EXTREMITIES: No pedal edema. No calf tenderness. AV graft to the left upper extremity. NEUROLOGICAL: Patient is sedated with propofol. Results CBC & Chem 7: 04/08/19 04:46 04/08/19 04:46 Labs: Abnormal Lab Results - Last 24 Hours (Table) 04/07/19 04/07/19 04/07/19 Range/Units 19:28 19:28 19:28 WBC 16.2 H (3.8-10.6) k/uL RBC 3.87 L (4.30-5.90) m/uL Hgb 12.9 L (13.0-17.5) gm/dL Hct (39.0-53.0) % MCV 102.1 H (80.0-100.0) fL RDW 17.9 H (11.5-15.5) % Plt Count 98 L (150-450) k/uL Neutrophils # 14.1 H (1.3-7.7) k/uL ABG pH (7.35-7.45) ABG pCO2 (35-45) mmHg ABG pO2 (83-108) mmHg ABG HCO3 (21-25) mmol/L ABG Total CO2 (19-24) mmol/L ABG O2 Saturation (94-97) % Sodium (137-145) mmol/L Potassium 8.3 H* (3.5-5.1) mmol/L Chloride 96 L (98-107) mmol/L BUN 85 H (9-20) mg/dL Creatinine 8.78 H* (0.66-1.25) mg/dL Glucose 229 H (74-99) mg/dL POC Glucose (mg/dL) (75-99) mg/dL Plasma Lactic Acid Wicho 3.1 H* (0.7-2.0) mmol/L Calcium 5.7 L* (8.4-10.2) mg/dL Ionized Calcium Rakel (4.5-5.3) mg/dL Phosphorus (2.5-4.5) mg/dL CK-MB (CK-2) (0.0-2.4) ng/mL Troponin I (0.000-0.034) ng/mL Lipase 641 H (23-300) U/L Urine Protein (Negative) Urine Glucose (UA) (Negative) Urine Mucus (None) /hpf 04/07/19 04/07/19 04/08/19 Range/Units 19:28 19:43 00:11 WBC (3.8-10.6) k/uL RBC (4.30-5.90) m/uL Hgb (13.0-17.5) gm/dL Hct (39.0-53.0) % MCV (80.0-100.0) fL RDW (11.5-15.5) % Plt Count (150-450) k/uL Neutrophils # (1.3-7.7) k/uL ABG pH (7.35-7.45) ABG pCO2 (35-45) mmHg ABG pO2 (83-108) mmHg ABG HCO3 (21-25) mmol/L ABG Total CO2 (19-24) mmol/L ABG O2 Saturation (94-97) % Sodium (137-145) mmol/L Potassium (3.5-5.1) mmol/L Chloride (98-107) mmol/L BUN (9-20) mg/dL Creatinine (0.66-1.25) mg/dL Glucose (74-99) mg/dL POC Glucose (mg/dL) 234 H 218 H (75-99) mg/dL Plasma Lactic Acid Wicho (0.7-2.0) mmol/L Calcium (8.4-10.2) mg/dL Ionized Calcium Rakel (4.5-5.3) mg/dL Phosphorus (2.5-4.5) mg/dL CK-MB (CK-2) (0.0-2.4) ng/mL Troponin I 0.712 H* (0.000-0.034) ng/mL Lipase (23-300) U/L Urine Protein (Negative) Urine Glucose (UA) (Negative) Urine Mucus (None) /hpf 04/08/19 04/08/19 04/08/19 Range/Units 00:19 01:45 01:47 WBC (3.8-10.6) k/uL RBC (4.30-5.90) m/uL Hgb (13.0-17.5) gm/dL Hct (39.0-53.0) % MCV (80.0-100.0) fL RDW (11.5-15.5) % Plt Count (150-450) k/uL Neutrophils # (1.3-7.7) k/uL ABG pH 7.23 L 7.26 L (7.35-7.45) ABG pCO2 61 H 64 H (35-45) mmHg ABG pO2 129 H >400 H (83-108) mmHg ABG HCO3 29 H (21-25) mmol/L ABG Total CO2 27 H 31 H (19-24) mmol/L ABG O2 Saturation 99.0 H 100.0 H (94-97) % Sodium (137-145) mmol/L Potassium 2.9 L (3.5-5.1) mmol/L Chloride 96 L (98-107) mmol/L BUN 34 H (9-20) mg/dL Creatinine 3.27 H (0.66-1.25) mg/dL Glucose 148 H (74-99) mg/dL POC Glucose (mg/dL) (75-99) mg/dL Plasma Lactic Acid Wicho (0.7-2.0) mmol/L Calcium 6.7 L (8.4-10.2) mg/dL Ionized Calcium Rakel (4.5-5.3) mg/dL Phosphorus (2.5-4.5) mg/dL CK-MB (CK-2) (0.0-2.4) ng/mL Troponin I (0.000-0.034) ng/mL Lipase (23-300) U/L Urine Protein (Negative) Urine Glucose (UA) (Negative) Urine Mucus (None) /hpf 04/08/19 04/08/19 04/08/19 Range/Units 02:57 04:46 04:46 WBC 18.3 H (3.8-10.6) k/uL RBC 3.34 L (4.30-5.90) m/uL Hgb 11.1 L (13.0-17.5) gm/dL Hct 33.4 L (39.0-53.0) % MCV (80.0-100.0) fL RDW 16.7 H (11.5-15.5) % Plt Count 94 L (150-450) k/uL Neutrophils # 16.0 H (1.3-7.7) k/uL ABG pH (7.35-7.45) ABG pCO2 (35-45) mmHg ABG pO2 (83-108) mmHg ABG HCO3 (21-25) mmol/L ABG Total CO2 (19-24) mmol/L ABG O2 Saturation (94-97) % Sodium 135 L (137-145) mmol/L Potassium (3.5-5.1) mmol/L Chloride 95 L (98-107) mmol/L BUN 51 H (9-20) mg/dL Creatinine 5.85 H (0.66-1.25) mg/dL Glucose 226 H (74-99) mg/dL POC Glucose (mg/dL) (75-99) mg/dL Plasma Lactic Acid Wicho (0.7-2.0) mmol/L Calcium 6.3 L* (8.4-10.2) mg/dL Ionized Calcium Rakel (4.5-5.3) mg/dL Phosphorus 7.6 H (2.5-4.5) mg/dL CK-MB (CK-2) (0.0-2.4) ng/mL Troponin I (0.000-0.034) ng/mL Lipase (23-300) U/L Urine Protein 2+ H (Negative) Urine Glucose (UA) 1+ H (Negative) Urine Mucus Rare H (None) /hpf 04/08/19 04/08/19 04/08/19 Range/Units 04:54 05:50 07:12 WBC (3.8-10.6) k/uL RBC (4.30-5.90) m/uL Hgb (13.0-17.5) gm/dL Hct (39.0-53.0) % MCV (80.0-100.0) fL RDW (11.5-15.5) % Plt Count (150-450) k/uL Neutrophils # (1.3-7.7) k/uL ABG pH 7.29 L (7.35-7.45) ABG pCO2 53 H (35-45) mmHg ABG pO2 167 H (83-108) mmHg ABG HCO3 26 H (21-25) mmol/L ABG Total CO2 27 H (19-24) mmol/L ABG O2 Saturation 100.0 H (94-97) % Sodium (137-145) mmol/L Potassium (3.5-5.1) mmol/L Chloride (98-107) mmol/L BUN (9-20) mg/dL Creatinine (0.66-1.25) mg/dL Glucose (74-99) mg/dL POC Glucose (mg/dL) 274 H (75-99) mg/dL Plasma Lactic Acid Wicho (0.7-2.0) mmol/L Calcium (8.4-10.2) mg/dL Ionized Calcium Rakel 3.3 L* (4.5-5.3) mg/dL Phosphorus (2.5-4.5) mg/dL CK-MB (CK-2) (0.0-2.4) ng/mL Troponin I (0.000-0.034) ng/mL Lipase (23-300) U/L Urine Protein (Negative) Urine Glucose (UA) (Negative) Urine Mucus (None) /hpf 04/08/19 04/08/19 Range/Units 09:45 11:47 WBC (3.8-10.6) k/uL RBC (4.30-5.90) m/uL Hgb (13.0-17.5) gm/dL Hct (39.0-53.0) % MCV (80.0-100.0) fL RDW (11.5-15.5) % Plt Count (150-450) k/uL Neutrophils # (1.3-7.7) k/uL ABG pH (7.35-7.45) ABG pCO2 (35-45) mmHg ABG pO2 (83-108) mmHg ABG HCO3 (21-25) mmol/L ABG Total CO2 (19-24) mmol/L ABG O2 Saturation (94-97) % Sodium (137-145) mmol/L Potassium (3.5-5.1) mmol/L Chloride (98-107) mmol/L BUN (9-20) mg/dL Creatinine (0.66-1.25) mg/dL Glucose (74-99) mg/dL POC Glucose (mg/dL) 185 H (75-99) mg/dL Plasma Lactic Acid Wicho (0.7-2.0) mmol/L Calcium (8.4-10.2) mg/dL Ionized Calcium Rakel (4.5-5.3) mg/dL Phosphorus (2.5-4.5) mg/dL CK-MB (CK-2) 15.9 H (0.0-2.4) ng/mL Troponin I 3.800 H* (0.000-0.034) ng/mL Lipase (23-300) U/L Urine Protein (Negative) Urine Glucose (UA) (Negative) Urine Mucus (None) /hpf Microbiology - Last 24 Hours (Table) 04/08/19 02:57 Urine Culture - Preliminary Urine,Catheterized 04/08/19 01:30 Sputum Culture - Preliminary Sputum Thrombosis Risk Factor Assmnt - DVT/VTE Prophylaxis DVT/VTE Prophylaxis: Pharmacologic Prophylaxis ordered - Choose All That Apply Each Factor Represents 1 point: Abnormal pulmonary function (COPD), Age 41-60 years, Heart failure (<1month), Obesity (BMI >25) Other Risk Factors: Yes Each Risk Factor Represents 2 Points: Central venous access Other congenital or acquired thrombophilia - If yes, enter type in comment: No Thrombosis Risk Factor Assessment Total Risk Factor Score: 6 Thrombosis Risk Factor Assessment Level: High Risk Assessment and Plan Plan: 1. Acute metabolic encephalopathy possibly related to uremia and missed dialysis treatments, possibly related to narcotic use with [place] and [place] Contin. Rule out CVA. Consult with neurology. CT angiogram of the brain and CT of the brain showed no acute process. 2. Acute hypoxic respiratory failure requiring intubation and mechanical ventilation. Consult with Dr. Wharton appreciated. 3. Hypotension possibly related to sepsis of unclear etiology, possible abdominal source. The patient has been started on Zosyn and consult with Dr Nicholson. 4. Elevated troponin, possible acute non-ST elevated myocardial infarction. Cardiology consult. Patient has been started on heparin drip. Continue aspirin, Lipitor 5. Acute renal failure with acute hyperkalemia on top of End-stage renal disease secondary to missed dialysis treatments. Patient is normally scheduled on Friday. Nephrology consult appreciated. Patient is undergoing dialysis today. 6. Diabetes mellitus type 2, insulin requiring, with diabetic neuropathy. Continue Levemir and NovoLog scale. 7. Chronic systolic heart failure. Continue dialysis 8. History of coronary artery disease status post stent in 2013. Continue aspirin 81 mg daily, Lipitor 80 mg at bedtime. 9. 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 10. History of recurrent pancreatitis secondary to alcohol abuse presenting with elevated lipase and possible component or source of sepsis with acute pancreatitis. 11. History of CVA. 12. Hyperlipidemia. 13. Hypertension, hypertensive cardiovascular disease. 14. Alcohol-induced liver disease with history of esophageal varices and underlying possible cirrhosis. 15. Chronic pancytopenia. 16. DVT prophylaxis. Patient currently on heparin. 17. GI prophylaxis. Protonix. Patient will be admitted to the hospital for a minimum of 2 night stay. Discharge plan: To be determined. Impression and plan of care have been directed as dictated by the signing physician. Iram Love nurse practitioner acting as scribe for signing physician.
--- NOTE | 2019-04-08 14:16 | P.CONS ---
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 Patient had previous admission June 2017 for metabolic encephalopathy and acute hypoxic hypercarbic respiratory failure secondary to acute diastolic heart failure and hypercarbia for which patient was briefly intubated. Followed by another admission for acute change in mental status, increased weakness worsening shortness of breath and cough. Patient was treated for sepsis, pancytopenia requiring transfusions, acute hypoxic hypercarbic respiratory failure requiring intubation secondary to fluid overload, acute on chronic systolic heart failure, possible gram-negative pneumonia that could not be ruled out during that admission. Patient had a prolonged course and was finally discharged on 06/15/2018. He was seen in June 2018 with pancytopenia secondary to chronic liver disease with bone marrow suppression from chronic alcohol use. He was seen by Dr. Major for esophageal varices and underlying possible cirrhosis as nodularity was noted on the liver with thrombocytopenia from hypersplenism. Patient was supposed to have EGD and colonoscopy and evaluation for possible kidney transplant. Patient presented to [facility] emergency center due to decreased level of consciousness. He apparently contacted his stating that he was not feeling well. He apparently skipped dialysis at least twice. According to the record, patient's found him to be quite sleepy and difficult to arouse. Patient was then brought into the hospital for evaluation. Patient is on [place] and morphine for chronic pain and was not determined patient had taken extra medication. Patient's apparently did not suspect a suicide attempt. The patient was given 3 doses of Narcan without much improvement. Lab work revealed potassium of 8.3, creatinine 85, creatinine 8.7. Blood sugar was 229. White cell count was at 16.2 with a hemoglobin was 12.9. The patient was given calcium gluconate. He also received D50 with insulin and albuterol for his hyperkalemia. CT of the brain and a CT angiogram that did not show any acute abnormalities. His EKG was sinus rhythm with a first-degree AV block. His troponin was at 0.7. Chest x-ray showed fluid overload/pulmonary edema. His lactic acid level was elevated at 3.1. Patient underwent emergent hemodialysis and transferred to the intensive care unit. Patient was initially on BiPAP but was subsequently intubated and placed on mechanical ventilation currently at tidal volume 500, FiO2 40, PEEP 5. The patient was then found to be hypotensive and was started on norepinephrine. WBC count went up to 18.3 and patient has been started on Zosyn. Patient also has the following consultants in place including cardiology for elevated troponins, nephrology for dialysis, Dr. Wharton for intensive care management, neurology to rule out CVA. Review of Systems ROS unobtainable: due to endotracheal tube Past Medical History Past Medical History: Coronary Artery Disease (CAD), Chest Pain / Angina, Heart Failure, COPD, CVA/TIA, Diabetes Mellitus, GERD/Reflux, Hyperlipidemia, Hype rtension, Osteoarthritis (OA), Renal Disease, Respiratory Disorder, Sleep Apnea/CPAP/BIPAP Additional Past Medical History / Comment(s): Known history of coronary artery disease, congestion heart failure with segmental wall motion abnormalities and ejection fraction of 30%, COPD, diabetes mellitus type 2, peripheral neuropathy, end-stage renal disease currently on hemodialysis 3 times a week MWF, history of alcoholism, history of chronic pancreatitis, the patient has not drank alcohol for more than 70s, history of chronic CVA with some right-sided weakness, history of ARDS requiring intubation mechanical ventilation and was quite prolonged and the patient required tracheostomy tube insertion for that, history of splenomegaly, chronic anemia, chronic back pain, chronic neck pain, chronic narcotic dependence him a chronic thrombocytopenia, hypertension, history of esophageal varices without bleeding, history of opiate overdose History of Any Multi-Drug Resistant Organisms: None Reported Past Surgical History: Appendectomy, Back Surgery, Cholecystectomy, Heart Catheterization, Heart Catheterization With Stent Additional Past Surgical History / Comment(s): PCI with stents, tracheostomy, bladder stone removal, anterior cervical disc fusion/plate, jugular catheter insertion since removed, colonoscopy."dialysis graft site lt upper arm"-no bp or blood draw lt arm, peritoneal catheter-since removed. Past Anesthesia/Blood Transfusion Reactions: No Reported Reaction Date of Last Stent Placement:: 2013 Past Psychological History: Anxiety, Depression Additional Psychological History / Comment(s): Pt resides with his spouse and their 2 sons, one of which is a handicapped minor and the other an adult. Pt has a glucometer. He drives. Smoking Status: Former smoker Past Alcohol Use History: None Reported Additional Past Alcohol Use History / Comment(s): Quit smoking 1990, smoked approx 23 yrs 1ppd, no alcohol for over 7 yrs. Past Drug Use History: None Reported - Past Family History Father Family Medical History: Coronary Artery Disease (CAD), Myocardial Infarction (OK) Additional Family Medical History / Comment(s): Father of a OK at the age of 65yrs. Mother Family Medical History: Coronary Artery Disease (CAD), Myocardial Infarction (OK) Additional Family Medical History / Comment(s): Mother of a OK at the age of 55yrs. Brother(s) Family Medical History: Cancer Daughter(s) Family Medical History: Vascular Disorder (VSD) Medications and Allergies Home Medications Medication Instructions Recorded Confirmed Type Atorvastatin Calcium [Lipitor] 80 mg PO HS #30 tab 03/01/14 04/07/19 Rx ALPRAZolam [Xanax] 0.125 mg PO HS PRN 06/04/18 04/07/19 History HYDROcodone/APAP 10-325MG [[place] 1 tab PO Q4H 06/04/18 04/07/19 History 10-325] hydrALAZINE HCL [Apresoline] 50 mg PO TID #90 tab 06/15/18 04/07/19 Rx Docusate [Colace] 100 mg PO DAILY PRN cap 06/28/18 04/07/19 Rx Ferrous Sulfate [Feosol] 325 mg PO TID #90 tab 06/28/18 04/07/19 Rx Lactulose [Cephulac] 30 gm PO DAILY #1 bottle 06/28/18 04/07/19 Rx ARIPiprazole [Abilify] 5 mg PO DAILY 01/04/19 04/07/19 History Albuterol Sulfate [Proair Hfa] 2 puff INHALATION RT-QID PRN 01/04/19 04/07/19 History Bumetanide [BUMEX] 2 mg PO BID 01/04/19 04/07/19 History Dialyvite 1 tab PO DAILY 01/04/19 04/07/19 History Fluticasone Nasal [place] [Flonase 2 spr EA NOSTRIL DAILY 01/04/19 04/07/19 History Nasal [place]] Fluticasone/Salmeterol [Advair 1 puff INHALATION RT-BID 01/04/19 04/07/19 History 250-50 Diskus] Insulin Aspart [NovoLOG Flexpen] 20 unit SQ AC-TID 01/04/19 04/07/19 History Insulin Glargine,Hum.rec.anlog 20 unit SQ HS 01/04/19 04/07/19 History [Basaglar Kwikpen U-100] Lubiprostone [Amitiza] 24 mcg PO BID 01/04/19 04/07/19 History Metoprolol Tartrate [Lopressor] 150 mg PO BID 01/04/19 04/07/19 History Nitroglycerin Sl Tabs [Nitrostat] 0.4 mg SUBLINGUAL Q5M PRN 01/04/19 04/07/19 History Omeprazole [PriLOSEC] 20 mg PO DAILY 01/04/19 04/07/19 History Citalopram Hydrobromide [CeleXA] 10 mg PO DAILY #30 tab 01/06/19 04/07/19 Rx Calcium Acetate [Phoslo] 1,334 mg PO AC-TID 04/07/19 04/07/19 History Gabapentin [Neurontin] 100 mg PO TID 04/07/19 04/07/19 History Lisinopril 30 mg PO DAILY 04/07/19 04/07/19 History Morphine Sulfate ER [Ms Contin] 30 mg PO Q12HR 04/07/19 04/07/19 History Allergies Allergy/AdvReac Type Severity Reaction Status Date / Time No Known Allergies Allergy Verified 04/07/19 20:17 Physical Exam Vitals: Vital Signs Temp Pulse Pulse Resp BP BP Pulse Ox 04/08/19 12:00 99 04/08/19 11:46 65 24 99 04/08/19 11:36 67 04/08/19 11:30 67 24 99 04/08/19 11:19 66 04/08/19 11:15 69 24 99 04/08/19 11:00 70 24 99 04/08/19 10:45 71 24 142/63 99 04/08/19 10:30 72 24 98 04/08/19 10:15 74 24 98 04/08/19 10:00 73 24 99 04/08/19 09:45 75 24 98 04/08/19 09:30 76 18 142/63 98 04/08/19 09:15 78 18 98 04/08/19 09:00 78 18 98 04/08/19 08:45 77 18 89/46 98 04/08/19 08:30 78 18 121/63 98 04/08/19 08:15 79 18 121/63 98 04/08/19 08:00 98.2 F 80 18 121/63 98 04/08/19 07:45 80 18 121/63 98 04/08/19 07:30 80 18 121/63 99 04/08/19 07:27 80 04/08/19 07:15 80 18 121/63 99 04/08/19 07:13 80 04/08/19 07:00 80 18 98 04/08/19 06:45 80 18 98 04/08/19 06:30 80 18 98 04/08/19 06:15 79 18 98 04/08/19 06:00 79 18 98 04/08/19 05:45 80 18 98 04/08/19 05:30 79 18 99 04/08/19 05:15 80 18 99 04/08/19 05:00 78 18 100 04/08/19 04:45 78 18 121/63 100 04/08/19 04:30 78 18 100 04/08/19 04:15 78 18 100 04/08/19 04:00 100.3 F H 84 79 18 99 04/08/19 03:45 82 18 99 04/08/19 03:30 84 18 98 04/08/19 03:15 84 18 98 04/08/19 03:00 99.3 F 83 18 98 04/08/19 02:45 84 18 126/58 98 04/08/19 02:30 83 18 122/57 04/08/19 02:29 99.8 F H 123/57 04/08/19 02:15 80 18 98/54 04/08/19 02:00 77 18 194/79 98 04/08/19 01:45 77 18 77/43 04/08/19 01:30 74 18 82/48 100 04/08/19 01:15 89 18 92/49 93 L 04/08/19 01:00 89 18 56/27 85 L 04/08/19 00:45 95 28 H 102/49 71 L 04/08/19 00:30 90 26 H 119/57 04/08/19 00:18 99.3 F 93 20 95 04/08/19 00:15 86 18 04/07/19 23:55 20 04/07/19 22:50 93 16 128/57 91 L 04/07/19 22:40 90 12 120/54 88 L 04/07/19 22:30 91 14 124/59 92 L 04/07/19 22:20 87 16 111/55 91 L 04/07/19 22:10 87 16 122/52 88 L 04/07/19 22:09 14 04/07/19 22:08 14 04/07/19 22:00 85 14 119/59 94 L 04/07/19 21:50 84 14 108/61 96 04/07/19 21:49 83 04/07/19 21:40 82 18 107/57 99 04/07/19 21:30 81 16 98/55 99 04/07/19 21:28 81 04/07/19 21:20 79 16 102/54 100 04/07/19 21:13 79 04/07/19 21:10 80 18 105/61 91 L 04/07/19 21:00 98.3 F 81 16 103/65 105/61 92 L 04/07/19 20:50 84 16 103/58 97 04/07/19 20:40 84 16 101/57 96 04/07/19 20:30 84 16 100/54 97 04/07/19 20:20 85 16 116/64 96 04/07/19 20:10 16 103/57 04/07/19 20:00 143/57 04/07/19 19:13 98 12 139/59 93 L Intake and Output 04/07/19 04/08/19 04/08/19 22:59 06:59 14:59 Intake Total 345 322.084 Output Total 479 39 Balance -134 283.084 Intake: Intake, IV Titration 0 302.084 Amount Calcium Gluconate 1 gm In 100 Sodium Chloride 0.9% 100 ml @ 100 mls/hr IVPB ONCE ONE Rx#:[id number] Norepinephrine 32 mg In 2.084 Sodium Chloride 0.9% 218 ml @ 0.12 MCG/KG/MIN 5. 358 mls/hr IV .Q24H NATHAN Rx#:[id number] Norepinephrine 4 mg In 0 Sodium Chloride 0.9% 250 ml @ 0.05 MCG/KG/MIN 18. 146 mls/hr IV .Q14H NATHAN Rx#:[id number] Propofol 1,000 mg In 200 Empty Bag 1 bag @ Titrate IV .Q0M NATHAN Rx#: [id number] Tube Feeding 20 Hemodialysis 345 Output: Urine 479 39 Other: Voiding Method Indwelling Catheter Indwelling Catheter # Voids 0 0 Weight 95.254 kg 95.3 kg 95.3 kg ABP, PAP, CO, CI - Last 8 Hours Arterial Blood Pressure 151/81 Arterial Blood Pressure 160/62 Arterial Blood Pressure 95/54 Arterial Blood Pressure 168/64 Arterial Blood Pressure 81/54 Arterial Blood Pressure 100/47 Arterial Blood Pressure 148/58 Arterial Blood Pressure 74/37 Arterial Blood Pressure 127/51 Arterial Blood Pressure 126/52 Arterial Blood Pressure 102/45 Arterial Blood Pressure 95/48 Arterial Blood Pressure 102/48 Arterial Blood Pressure 117/52 Arterial Blood Pressure 110/51 Arterial Blood Pressure 105/49 Arterial Blood Pressure 109/50 Arterial Blood Pressure 109/48 Arterial Blood Pressure 110/48 Arterial Blood Pressure 111/48 Arterial Blood Pressure 111/48 Arterial Blood Pressure 113/50 Arterial Blood Pressure 109/48 Gen: This is a 58-year-old male. He is intubated and on mechanical ventilation. Patient is currently undergoing hemodialysis treatment. HEENT: Head is atraumatic, normocephalic. Pupils equal, round. Sclerae is anicteric. Oral mucous membranes are moist. Oral gastric and ET tube in place. NECK: Supple. No JVD. No lymphadenopathy. No thyromegaly. LUNGS: Clear to auscultation. No wheezes or rhonchi. No intercostal retractions. HEART: Regular rate and rhythm. No murmur. ABDOMEN: Soft. Bowel sounds are present. No masses. No tenderness. EXTREMITIES: No pedal edema. No calf tenderness. AV graft to the left upper extremity. NEUROLOGICAL: Patient is sedated with propofol. Results Results: Laboratory Results WBC 18.3 k/uL (3.8-10.6) H 04/08/19 04:46 RBC 3.34 m/uL (4.30-5.90) L 04/08/19 04:46 Hgb 11.1 gm/dL (13.0-17.5) L 04/08/19 04:46 Hct 33.4 % (39.0-53.0) L 04/08/19 04:46 MCV 99.8 fL (80.0-100.0) 04/08/19 04:46 MCH 33.3 pg (25.0-35.0) 04/08/19 04:46 MCHC 33.4 g/dL (31.0-37.0) 04/08/19 04:46 RDW 16.7 % (11.5-15.5) H 04/08/19 04:46 Plt Count 94 k/uL (150-450) L 04/08/19 04:46 Neutrophils % 87 % 04/08/19 04:46 Lymphocytes % 7 % 04/08/19 04:46 Monocytes % 5 % 04/08/19 04:46 Eosinophils % 0 % 04/08/19 04:46 Basophils % 0 % 04/08/19 04:46 Neutrophils # 16.0 k/uL (1.3-7.7) H 04/08/19 04:46 Lymphocytes # 1.2 k/uL (1.0-4.8) 04/08/19 04:46 Monocytes # 0.9 k/uL (0-1.0) 04/08/19 04:46 Eosinophils # 0.0 k/uL (0-0.7) 04/08/19 04:46 Basophils # 0.0 k/uL (0-0.2) 04/08/19 04:46 Poikilocytosis Slight 04/08/19 04:46 Anisocytosis Slight 04/08/19 04:46 Macrocytosis Slight 04/08/19 04:46 PT 10.4 sec (9.0-12.0) 04/07/19 19:28 INR 1.0 (<1.2) 04/07/19 19:28 APTT 23.8 sec (22.0-30.0) 04/07/19 19:28 Sample Site [place] 04/08/19 04:54 ABG pH 7.29 (7.35-7.45) L 04/08/19 04:54 ABG pCO2 53 mmHg (35-45) H 04/08/19 04:54 ABG pO2 167 mmHg (83-108) H 04/08/19 04:54 ABG HCO3 26 mmol/L (21-25) H 04/08/19 04:54 ABG Total CO2 27 mmol/L (19-24) H 04/08/19 04:54 ABG O2 Saturation 100.0 % (94-97) H 04/08/19 04:54 ABG Base Excess -1.0 mmol/L 04/08/19 04:54 Jesus Manuel Test no 04/08/19 04:54 ABG Lactic Acid 1.6 mmol/L (0.5-1.6) 04/08/19 04:46 FiO2 50 % 04/08/19 04:54 Sodium 135 mmol/L (137-145) L 04/08/19 04:46 Potassium 4.5 mmol/L (3.5-5.1) 04/08/19 04:46 Chloride 95 mmol/L (98-107) L 04/08/19 04:46 Carbon Dioxide 25 mmol/L (22-30) 04/08/19 04:46 Anion Gap 15 mmol/L 04/08/19 04:46 BUN 51 mg/dL (9-20) H 04/08/19 04:46 Creatinine 5.85 mg/dL (0.66-1.25) H 04/08/19 04:46 Est GFR (CKD-EPI)AfAm 11 (>60 ml/min/1.73 sqM) 04/08/19 04:46 Est GFR (CKD-EPI)NonAf 10 (>60 ml/min/1.73 sqM) 04/08/19 04:46 Glucose 226 mg/dL (74-99) H 04/08/19 04:46 POC Glucose (mg/dL) 185 mg/dL (75-99) H 04/08/19 11:47 POC Glu [employer] ID Carol Boyle 04/08/19 11:47 Lactic Ac Sepsis Rflx Y 04/07/19 20:55 Plasma Lactic Acid [place] 3.1 mmol/L (0.7-2.0) H* 04/07/19 19:28 Calcium 6.3 mg/dL (8.4-10.2) L* 04/08/19 04:46 Ionized Calcium Rakel 3.3 mg/dL (4.5-5.3) L* 04/08/19 05:50 Phosphorus 7.6 mg/dL (2.5-4.5) H 04/08/19 04:46 Magnesium 1.8 mg/dL (1.6-2.3) 04/08/19 04:46 Total Bilirubin 0.8 mg/dL (0.2-1.3) 04/07/19 19:28 AST 54 U/L (17-59) 04/07/19 19:28 ALT 39 U/L (21-72) 04/07/19 19:28 Alkaline Phosphatase 97 U/L (38-126) 04/07/19 19:28 CK-MB (CK-2) 15.9 ng/mL (0.0-2.4) H 04/08/19 09:45 Troponin I 3.800 ng/mL (0.000-0.034) H* 04/08/19 09:45 Total Protein 7.4 g/dL (6.3-8.2) 04/07/19 19:28 Albumin 4.5 g/dL (3.5-5.0) 04/07/19 19:28 Lipase 641 U/L (23-300) H 04/07/19 19:28 Urine Color Yellow 04/08/19 02:57 Urine Appearance Clear (Clear) 04/08/19 02:57 Urine pH 6.0 (5.0-8.0) 04/08/19 02:57 Ur Specific [place] 1.015 (1.001-1.035) 04/08/19 02:57 Urine Protein 2+ (Negative) H 04/08/19 02:57 Urine Glucose (UA) 1+ (Negative) H 04/08/19 02:57 Urine Ketones Negative (Negative) 04/08/19 02:57 Urine Blood Negative (Negative) 04/08/19 02:57 Urine Nitrite Negative (Negative) 04/08/19 02:57 Urine Bilirubin Negative (Negative) 04/08/19 02:57 Urine Urobilinogen <2.0 mg/dL (<2.0) 04/08/19 02:57 Ur Leukocyte Esterase Negative (Negative) 04/08/19 02:57 Urine WBC 1 /hpf (0-5) 04/08/19 02:57 Urine Mucus Rare /hpf (None) H 04/08/19 02:57 Hep Bs Antigen Non-Reactive (Non-Reactive) 04/08/19 00:15 Hep Bs Antibody Non-Reactive (Non-Reactive) 04/08/19 00:15 Hep Bs Antibody, Quant 3.5 mIU/mL 04/08/19 00:15 CBC & Chem 7: 04/08/19 04:46 04/08/19 04:46 Labs: Abnormal Lab Results - Last 24 Hours (Table) 04/07/19 04/07/19 04/07/19 Range/Units 19:28 19:28 19:28 WBC 16.2 H (3.8-10.6) k/uL RBC 3.87 L (4.30-5.90) m/uL Hgb 12.9 L (13.0-17.5) gm/dL Hct (39.0-53.0) % MCV 102.1 H (80.0-100.0) fL RDW 17.9 H (11.5-15.5) % Plt Count 98 L (150-450) k/uL Neutrophils # 14.1 H (1.3-7.7) k/uL ABG pH (7.35-7.45) ABG pCO2 (35-45) mmHg ABG pO2 (83-108) mmHg ABG HCO3 (21-25) mmol/L ABG Total CO2 (19-24) mmol/L ABG O2 Saturation (94-97) % Sodium (137-145) mmol/L Potassium 8.3 H* (3.5-5.1) mmol/L Chloride 96 L (98-107) mmol/L BUN 85 H (9-20) mg/dL Creatinine 8.78 H* (0.66-1.25) mg/dL Glucose 229 H (74-99) mg/dL POC Glucose (mg/dL) (75-99) mg/dL Plasma Lactic Acid [place] 3.1 H* (0.7-2.0) mmol/L Calcium 5.7 L* (8.4-10.2) mg/dL Ionized Calcium Rakel (4.5-5.3) mg/dL Phosphorus (2.5-4.5) mg/dL CK-MB (CK-2) (0.0-2.4) ng/mL Troponin I (0.000-0.034) ng/mL Lipase 641 H (23-300) U/L Urine Protein (Negative) Urine Glucose (UA) (Negative) Urine Mucus (None) /hpf 04/07/19 04/07/19 04/08/19 Range/Units 19:28 19:43 00:11 WBC (3.8-10.6) k/uL RBC (4.30-5.90) m/uL Hgb (13.0-17.5) gm/dL Hct (39.0-53.0) % MCV (80.0-100.0) fL RDW (11.5-15.5) % Plt Count (150-450) k/uL Neutrophils # (1.3-7.7) k/uL ABG pH (7.35-7.45) ABG pCO2 (35-45) mmHg ABG pO2 (83-108) mmHg ABG HCO3 (21-25) mmol/L ABG Total CO2 (19-24) mmol/L ABG O2 Saturation (94-97) % Sodium (137-145) mmol/L Potassium (3.5-5.1) mmol/L Chloride (98-107) mmol/L BUN (9-20) mg/dL Creatinine (0.66-1.25) mg/dL Glucose (74-99) mg/dL POC Glucose (mg/dL) 234 H 218 H (75-99) mg/dL Plasma Lactic Acid [place] (0.7-2.0) mmol/L Calcium (8.4-10.2) mg/dL Ionized Calcium Rak[place] (4.5-5.3) mg/dL Phosphorus (2.5-4.5) mg/dL CK-MB (CK-2) (0.0-2.4) ng/mL Troponin I 0.712 H* (0.000-0.034) ng/mL Lipase (23-300) U/L Urine Protein (Negative) Urine Glucose (UA) (Negative) Urine Mucus (None) /hpf 04/08/19 04/08/19 04/08/19 Range/Units 00:19 01:45 01:47 WBC (3.8-10.6) k/uL RBC (4.30-5.90) m/uL Hgb (13.0-17.5) gm/dL Hct (39.0-53.0) % MCV (80.0-100.0) fL RDW (11.5-15.5) % Plt Count (150-450) k/uL Neutrophils # (1.3-7.7) k/uL ABG pH 7.23 L 7.26 L (7.35-7.45) ABG pCO2 61 H 64 H (35-45) mmHg ABG pO2 129 H >400 H (83-108) mmHg ABG HCO3 29 H (21-25) mmol/L ABG Total CO2 27 H 31 H (19-24) mmol/L ABG O2 Saturation 99.0 H 100.0 H (94-97) % Sodium (137-145) mmol/L Potassium 2.9 L (3.5-5.1) mmol/L Chloride 96 L (98-107) mmol/L BUN 34 H (9-20) mg/dL Creatinine 3.27 H (0.66-1.25) mg/dL Glucose 148 H (74-99) mg/dL POC Glucose (mg/dL) (75-99) mg/dL Plasma Lactic Acid [place] (0.7-2.0) mmol/L Calcium 6.7 L (8.4-10.2) mg/dL Ionized Calcium [place] (4.5-5.3) mg/dL Phosphorus (2.5-4.5) mg/dL CK-MB (CK-2) (0.0-2.4) ng/mL Troponin I (0.000-0.034) ng/mL Lipase (23-300) U/L Urine Protein (Negative) Urine Glucose (UA) (Negative) Urine Mucus (None) /hpf 04/08/19 04/08/19 04/08/19 Range/Units 02:57 04:46 04:46 WBC 18.3 H (3.8-10.6) k/uL RBC 3.34 L (4.30-5.90) m/uL Hgb 11.1 L (13.0-17.5) gm/dL Hct 33.4 L (39.0-53.0) % MCV (80.0-100.0) fL RDW 16.7 H (11.5-15.5) % Plt Count 94 L (150-450) k/uL Neutrophils # 16.0 H (1.3-7.7) k/uL ABG pH (7.35-7.45) ABG pCO2 (35-45) mmHg ABG pO2 (83-108) mmHg ABG HCO3 (21-25) mmol/L ABG Total CO2 (19-24) mmol/L ABG O2 Saturation (94-97) % Sodium 135 L (137-145) mmol/L Potassium (3.5-5.1) mmol/L Chloride 95 L (98-107) mmol/L BUN 51 H (9-20) mg/dL Creatinine 5.85 H (0.66-1.25) mg/dL Glucose 226 H (74-99) mg/dL POC Glucose (mg/dL) (75-99) mg/dL Plasma Lactic Acid [place] (0.7-2.0) mmol/L Calcium 6.3 L* (8.4-10.2) mg/dL Ionized Calcium [place] (4.5-5.3) mg/dL Phosphorus 7.6 H (2.5-4.5) mg/dL CK-MB (CK-2) (0.0-2.4) ng/mL Troponin I (0.000-0.034) ng/mL Lipase (23-300) U/L Urine Protein 2+ H (Negative) Urine Glucose (UA) 1+ H (Negative) Urine Mucus Rare H (None) /hpf 04/08/19 04/08/19 04/08/19 Range/Units 04:54 05:50 07:12 WBC (3.8-10.6) k/uL RBC (4.30-5.90) m/uL Hgb (13.0-17.5) gm/dL Hct (39.0-53.0) % MCV (80.0-100.0) fL RDW (11.5-15.5) % Plt Count (150-450) k/uL Neutrophils # (1.3-7.7) k/uL ABG pH 7.29 L (7.35-7.45) ABG pCO2 53 H (35-45) mmHg ABG pO2 167 H (83-108) mmHg ABG HCO3 26 H (21-25) mmol/L ABG Total CO2 27 H (19-24) mmol/L ABG O2 Saturation 100.0 H (94-97) % Sodium (137-145) mmol/L Potassium (3.5-5.1) mmol/L Chloride (98-107) mmol/L BUN (9-20) mg/dL Creatinine (0.66-1.25) mg/dL Glucose (74-99) mg/dL POC Glucose (mg/dL) 274 H (75-99) mg/dL Plasma Lactic Acid [place] (0.7-2.0) mmol/L Calcium (8.4-10.2) mg/dL Ionized Calcium [place]ak[place] 3.3 L* (4.5-5.3) mg/dL Phosphorus (2.5-4.5) mg/dL CK-MB (CK-2) (0.0-2.4) ng/mL Troponin I (0.000-0.034) ng/mL Lipase (23-300) U/L Urine Protein (Negative) Urine Glucose (UA) (Negative) Urine Mucus (None) /hpf 04/08/19 04/08/19 Range/Units 09:45 11:47 WBC (3.8-10.6) k/uL RBC (4.30-5.90) m/uL Hgb (13.0-17.5) gm/dL Hct (39.0-53.0) % MCV (80.0-100.0) fL RDW (11.5-15.5) % Plt Count (150-450) k/uL Neutrophils # (1.3-7.7) k/uL ABG pH (7.35-7.45) ABG pCO2 (35-45) mmHg ABG pO2 (83-108) mmHg ABG HCO3 (21-25) mmol/L ABG Total CO2 (19-24) mmol/L ABG O2 Saturation (94-97) % Sodium (137-145) mmol/L Potassium (3.5-5.1) mmol/L Chloride (98-107) mmol/L BUN (9-20) mg/dL Creatinine (0.66-1.25) mg/dL Glucose (74-99) mg/dL POC Glucose (mg/dL) 185 H (75-99) mg/dL Plasma Lactic Acid [place] (0.7-2.0) mmol/L Calcium (8.4-10.2) mg/dL Ionized Calcium Rakel (4.5-5.3) mg/dL Phosphorus (2.5-4.5) mg/dL CK-MB (CK-2) 15.9 H (0.0-2.4) ng/mL Troponin I 3.800 H* (0.000-0.034) ng/mL Lipase (23-300) U/L Urine Protein (Negative) Urine Glucose (UA) (Negative) Urine Mucus (None) /hpf Microbiology - Last 24 Hours (Table) 04/08/19 02:57 Urine Culture - Preliminary Urine,Catheterized 04/08/19 01:30 Sputum Culture - Preliminary Sputum Assessment and Plan Plan: This is a 58-year-old male who presented to hospital with multiple medical conditions including acute metabolic encephalopathy possibly related to uremia and missed dialysis treatments, possibly related to narcotic use with [place] and MS Contin, rule out CVA, acute hypoxic respiratory failure requiring intubation and mechanical ventilation, hypotension with concern for sepsis. Patient is also known to have elevated lipase possibly related to underlying acute pancreatitis or possible other abdominal source. Unclear etiology at this point. Patient also presented with possible acute non-ST elevated myocardial infarction, acute renal failure with acute hyperkalemia on top of end-stage renal disease secondary to missed dialysis treatments. Due to pancytopenia, we will plan to discontinue the Zosyn and start meropenem. And further antibiotic regimen agents will be made. Continue supportive care. Further recommendations as patient progresses. Cultures in progress. The above dictated assessment and findings were discussed with Dr. Nicholson. The impression and plan of care have been directed as dictated. Iram Love nurse practitioner acting as scribe for Dr. Nicholson.
[2019-04-08 14:44] LABS: ABG Base Excess 6.7 mmol/L; ABG HCO3 30 mmol/L (21-25); ABG Oxygen Saturation 99.7 % (94-97); ABG PCO2 39 mmHg (35-45); ABG PO2 115 mmHg (83-108); ABG TCO2 31 mmol/L (19-24); Allen Test Performed? Yes
[2019-04-08 14:50] LABS: INR 1.1 (<1.2); Partial Thromboplastin Time 25.7 sec (22.0-30.0); Prothrombin Time 11.4 sec (9.0-12.0)
[2019-04-08 14:59] LABS: Anisocytosis Slight; Basophils % (A) 0 %; Eosinophils # (A) 0.1 k/uL (0-0.7); Eosinophils % (A) 1 %; HCT 27.1 % (39.0-53.0); HGB 9.5 gm/dL (13.0-17.5); Hyperchromasia Slight; Lymphocytes # (A) 1.2 k/uL (1.0-4.8); Lymphocytes % (A) 16 %; MCH 33.9 pg (25.0-35.0); MCV 97.1 fL (80.0-100.0); Macrocytosis Slight; Mean Platelet Volume 8.4; Monocytes # (A) 0.4 k/uL (0-1.0); Monocytes % (A) 6 %; Neutrophils # (A) 5.5 k/uL (1.3-7.7); Neutrophils % (A) 76 %; Poikilocytosis Slight; RDW 17.7 % (11.5-15.5); WBC 7.2 k/uL (3.8-10.6)
[2019-04-08 15:12] LABS: Calcium 7.7 mg/dL (8.4-10.2); Potassium 3.6 mmol/L (3.5-5.1)
[2019-04-08] MEDS ORDERED: SODIUM CHLORIDE 0.9% 1,000 ML IV SCH (15:15)
[2019-04-08 15:42] LABS: Platelet Count 60 k/uL (150-450)
[2019-04-08] MEDS: MEROPENEM 2 GM in SODIUM CHLORIDE 0.9% 100 ML IVPB SCH (15:59)
[2019-04-08] MEDS ORDERED: POTASSIUM CHLORIDE 10 MEQ in WATER FOR INJECTION 1 100ML.BAG IVPB STA (16:35)
[2019-04-08] MEDS ORDERED: MAGNESIUM SULFATE-D5W PMX 1 GM in DEXTROSE/WATER 1 100ML.BAG IVPB ONE (17:00)
[2019-04-08 18:01] LABS: Glucose,Whole Blood 209 mg/dL (75-99)
--- NOTE | 2019-04-08 18:18 | ECHOF ---
Referral Reason:chf, hypotension MEASUREMENTS -------- HEIGHT: 182.9 cm WEIGHT: 95.3 kg BP: 142/63 IVSd: 1.3 cm (0.6 - 1.1) LVIDd: 3.7 cm (3.9 - 5.3) LVPWd: 1.3 cm (0.6 - 1.1) IVSs: 1.9 cm LVIDs: 2.5 cm LVPWs: 1.8 cm LA Diam: 3.3 cm (2.7 - 3.8) RVIDd: 3.4 cm (< 3.3) Ao Diam: 3.0 cm (2.0 - 3.7) AV Cusp: 2.0 cm (1.5 - 2.6) EPSS: 0.6 cm MV E Eben: 0.65 m/s MV DecT: 407 ms MV A Eben: 0.61 m/s MV E/A Ratio: 1.06 MV EF SLOPE: 31.70 mm/s (70 - 150) MV EXCURSION: 18.55 mm (> 18.000) FINDINGS -------- Sinus rhythm. This was a technically adequate study. The left ventricular size is normal. There is mild concentric left ventricular hypertrophy. Overa ll left ventricular systolic function is normal with, an EF between 60 - 65 %. The right ventricle is mildly enlarged. The left atrial size is normal. The right atrium is normal in size. Interatrial and interventricular septum intact. The aortic valve is trileaflet and appears structurally normal. The mitral valve is normal. The tricuspid valve appears structurally normal. There is no pulmonic regurgitation present. The aortic root size is normal. The inferior vena cava is dilated with no significant inspiratory collapse which is consistent estima dee right atrial pressure of >20 mmHg. There is no pericardial effusion. CONCLUSIONS -------- 1. Sinus rhythm. 2. This was a technically adequate study. 3. The left ventricular size is normal. 4. There is mild concentric left ventricular hypertrophy. 5. Overall left ventricular systolic function is normal with, an EF between 60 - 65 %. 6. The right ventricle is mildly enlarged. 7. The left atrial size is normal. 8. The right atrium is normal in size. 9. Interatrial and interventricular septum intact. 10. The aortic valve is trileaflet and appears structurally normal. 11. The mitral valve is normal. 12. The tricuspid valve appears structurally normal. 13. There is no pulmonic regurgitation present. 14. The aortic root size is normal. 15. The inferior vena cava is dilated with no significant inspiratory collapse which is consistent es timated right atrial pressure of >20 mmHg. 16. There is no pericardial effusion. HOME PER[employer]MANCE LABORER: Lacy Membreno RDCS
[2019-04-08] MEDS ORDERED: INSULIN DETEMIR (LEVEMIR) 100 UNIT/ML SYR SQ SCH (21:00)
[2019-04-08 21:12] LABS: Calcium 7.1 mg/dL (8.4-10.2); Magnesium 2.2 mg/dL (1.6-2.3); Potassium 4.3 mmol/L (3.5-5.1)
[2019-04-08] MEDS: HEPARIN SODIUM,PORCINE 5,000 UNIT/ML 1 ML VIAL IV PRN (21:54)
[2019-04-08] MEDS: ATORVASTATIN 80 MG TAB PO SCH (22:04)
--- NOTE | 2019-04-08 22:49 | CONS ---
CONSULTATION REASON FOR CONSULTATION: End-stage renal disease and hyperkalemia. HISTORY OF PRESENT ILLNESS: The patient is a 58-year-old male with end-stage renal disease, on hemodialysis on a Friday, Friday, Friday schedule at the [facility]. He was admitted to the hospital yesterday with complaints of decreased responsiveness, confusion. He was obtunded in the ER. Patient received Narcan 3 times. There was some improvement in his mentation; however, he continued to be unresponsive and was therefore intubated. Patient's potassium was noted to be 8. He was dialyzed last night. This morning his potassium was 4.5. He has not had any fevers. Blood pressure was low yesterday and patient was started on a small dose of Levophed. He is being dialyzed again today. Patient is maintained on empiric antibiotics. Chest x-ray shows possible infiltrate/atelectasis in the left lung base. There are no obvious rashes or sores or wounds noted. Patient has not had any diarrhea, nausea or vomiting. PAST MEDICAL HISTORY: 1. End-stage renal disease. 2. History of coronary artery disease. 3. CKD mineral bone disorder. 4. Anemia of chronic disease. 5. COPD. 6. Obstructive sleep apnea. 7. Gastroesophageal reflux disease. 8. History of CVA/TIA. 9. Type 2 diabetes. 10.Peripheral neuropathy. 11.Previous history of GI bleed. 12.History of pancreatitis. PAST SURGICAL HISTORY: 1. Coronary stents. 2. History of tracheostomy. 3. Bladder stone removal. 4. Cervical fusion. 5. AV graft. 6. Previous PermCath placement and removal. SOCIAL HISTORY: Patient is a former smoker. No history of drug abuse or alcohol abuse. MEDICATIONS: Medications at home prior to admission included: 1. Lipitor. 2. Xanax. 3. [place]. 4. Hydralazine. 5. Iron. 6. Colace. 7. Abilify. 8. Bumex. 9. Insulin. 10.Metoprolol. 11.Prilosec. 12.PhosLo. 13.Neurontin. 14.Lisinopril. ALLERGIES: NONE. PHYSICAL EXAMINATION: Patient is currently sedated. He is on the vent. FiO2 is at 40%. Blood pressure 100/41. Patient is afebrile. Heart rate about 70 per minute. EXAMINATION OF THE HEART: S1 and S2. EXAMINATION OF LUNGS: Bilateral breath sounds are heard. Decreased breath sounds at bases. ABDOMEN: Soft, non-tender. Examination of lower extremities shows no evidence of edema. CELL PLASTERER exam is not performed. LABS: Hemoglobin 9.5, white cell count 7.2. Sodium 135, potassium 4.5, BUN 51, serum creatinine 5.85. Calcium was 6.3, ionized calcium 3.3. Troponin was 3.8. ASSESSMENT: 1. End-stage renal disease, on hemodialysis on a Friday, Friday, Friday schedule. Patient missed his dialysis as outpatient, but he was dialyzed last night and is currently being dialyzed again today. 2. Severe hyperkalemia associated with end-stage renal disease with previous history of hyperkalemia as well, currently improved post dialysis. No evidence of ongoing GI bleed, although hemoglobin has dropped from 11 to 9.5 g/dL now. Patient has had upper GI bleed previously. 3. Altered mentation, currently on the vent, status post Narcan, possibly medication- related. 4. History of coronary artery disease with elevated troponins, being followed by Cardiology, with possibility of underlying myocardial infarction. 5. Chronic kidney disease mineral bone disorder. PLAN: Hemodialysis today with no major ultrafiltration, as IV fluids are at about 70 mL/hour. We will reassess in a.m. regarding need for dialysis. MMODL / IJN: [id number] /
--- NOTE | 2019-04-08 23:15 | P.CON ---
Consult Note - . 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 Patient had previous admission June 2017 for metabolic encephalopathy and acute hypoxic hypercarbic respiratory failure secondary to acute diastolic heart failure and hypercarbia for which patient was briefly intubated. Followed by another admission for acute change in mental status, increased weakness worsening shortness of breath and cough. Patient was treated for sepsis, pancytopenia requiring transfusions, acute hypoxic hypercarbic respiratory failure requiring intubation secondary to fluid overload, acute on chronic systolic heart failure, possible gram-negative pneumonia that could not be ruled out during that admission. Patient had a prolonged course and was finally disc harged on 06/15/2018. He was seen in June 2018 with pancytopenia secondary to chronic liver disease with bone marrow suppression from chronic alcohol use. He was seen by Dr. Major for esophageal varices and underlying possible cirrhosis as nodularity was noted on the liver with thrombocytopenia from hypersplenism. Patient was supposed to have EGD and colonoscopy and evaluation for possible kidney transplant. Patient presented to [facility] emergency center due to decreased level of consciousness. He apparently contacted his stating that he was not feeling well. He apparently skipped dialysis at least twice. According to the record, patient's found him to be quite sleepy and difficult to arouse. Patient was then brought into the hospital for evaluation. Patient is on [place] and morphine for chronic pain and was not determined patient had taken extra medication. Patient's apparently did not suspect a suicide attempt. The patient was given 3 doses of Narcan without much improvement. Lab work revealed potassium of 8.3, creatinine 85, creatinine 8.7. Blood sugar was 229. White cell count was at 16.2 with a hemoglobin was 12.9. The patient was given calcium gluconate. He also received D50 with insulin and albuterol for his hyperkalemia. CT of the brain and a CT angiogram that did not show any acute abnormalities. His EKG was sinus rhythm with a first-degree AV block. His troponin was at 0.7. Chest x-ray showed fluid overload/pulmonary edema. His lactic acid level was elevated at 3.1. Patient underwent emergent hemodialysis and transferred to the intensive care unit. Patient was initially on BiPAP but was subsequently intubated and placed on mechanical ventilation currently at tidal volume 500, FiO2 40, PEEP 5. The patient was then found to be hypotensive and was started on norepinephrine. WBC count went up to 18.3 and patient has been started on Zosyn. Patient also has the following consultants in place including cardiology for elevated troponins, nephrology for dialysis, Dr. Wharton for intensive care management, neurology to rule out CVA. Please see the consult is dictated by nurse practitioner Mrs. Iram Love. 58-year-old male presents to Hospital as noted with a several-day history of progressive illness. He has end-stage renal disease on hemodialysis and missed 2 dialysis sessions. At presentation his potassium was greater than 8 and currently underwent to urgent dialysis sessions to reduce his potassium. He potentially had an opiate overdose at admission and had evidence of altered mentation respiratory failure and hypotension which required intubation and mechanical ventilation. This continues and remains in intensive care unit sedated and on vasopressor therapy with ongoing significant hypotension. The patient has evidence of elevated troponins and his concerns to an acute myocardial infarction. The patient is on dialysis and has evidence of sepsis and consequently antibiotic therapy will need to include vancomycin. The patient was started on Zosyn however his platelets have started to decrease even further wish to be in the base of the sepsis with could be a piperacillin effect. Is also notation of the markedly elevated lipase and constantly we'll have to consider the possibility of sepsis related to pancreatitis and Zosyn as transitioned to meropenem. Cultures were further help direct therapy in the multiple evaluations may further help or specifically identified the etiology of the sepsis. I agree with evaluation, assessment and plan by nurse practitioner Mrs. Iram Love.
[2019-04-09] MEDS: PROPOFOL 1,000 MG in EMPTY BAG 1 BAG IV SCH ×4 (00:35→11:04)
[2019-04-09] MEDS: MEROPENEM 2 GM in SODIUM CHLORIDE 0.9% 100 ML IVPB SCH ×2 (01:22→08:05)
[2019-04-09] MEDS: INSULIN ASPART (NovoLOG) 100 UNIT/ML VIAL SQ SCH ×5 (01:23→22:40)
[2019-04-09 01:26] LABS: Glucose,Whole Blood 210 mg/dL (75-99)
[2019-04-09 04:28] LABS: Anisocytosis Slight; Basophils % (A) 0 %; Eosinophils # (A) 0.1 k/uL (0-0.7); Eosinophils % (A) 1 %; HCT 25.7 % (39.0-53.0); HGB 8.8 gm/dL (13.0-17.5); Lymphocytes % (A) 14 %; MCH 33.6 pg (25.0-35.0); MCHC 34.3 g/dL (31.0-37.0); MCV 97.9 fL (80.0-100.0); Macrocytosis Slight; Mean Platelet Volume 9.9; Monocytes # (A) 0.4 k/uL (0-1.0); Monocytes % (A) 5 %; Neutrophils # (A) 5.5 k/uL (1.3-7.7); Neutrophils % (A) 78 %; Poikilocytosis Slight; RBC 2.62 m/uL (4.30-5.90); RDW 16.5 % (11.5-15.5)
[2019-04-09 04:36] LABS: Platelet Count 54 k/uL (150-450)
[2019-04-09 04:42] LABS: Calcium 6.9 mg/dL (8.4-10.2); Potassium 4.2 mmol/L (3.5-5.1)
[2019-04-09] MEDS: NOREPINEPHRINE 4 MG in SODIUM CHLORIDE 0.9% 250 ML IV SCH ×2 (04:50→19:02)
[2019-04-09 05:10] LABS: ABG HCO3 27 mmol/L (21-25); ABG Oxygen Saturation 98.7 % (94-97); ABG PCO2 36 mmHg (35-45); ABG PH 7.49 (7.35-7.45); ABG PO2 90 mmHg (83-108); ABG TCO2 29 mmol/L (19-24)
[2019-04-09] MEDS: HEPARIN SODIUM,PORCINE 5,000 UNIT/ML 1 ML VIAL IV PRN (06:09)
[2019-04-09 07:05] LABS: Glucose,Whole Blood 184 mg/dL (75-99)
--- NOTE | 2019-04-09 07:09 | XR ---
EXAMINATION TYPE: XR chest 1V portable DATE OF EXAM: 04/09/2019 COMPARISON: 04/08/2019 HISTORY: Ventilatory dependent respiratory failure. TECHNIQUE: Single frontal view of the chest is obtained. FINDINGS: Endotracheal and enteric tubes appear stable in positioning. Right internal jugular centra l venous catheter is also stable. Cervical fusion device is partially visualized. Scattered areas of linear atelectasis are seen within the lungs predominating at the right lung base. No sizable pleural effusion or pneumothorax. Cardiomediastinal silhouette is stable. IMPRESSION: Stable lines and tubes and right basilar atelectasis.
[2019-04-09] MEDS: ALBUTEROL NEBULIZED 2.5 MG/3 ML INHALATION PRN ×4 (07:23→19:38)
--- NOTE | 2019-04-09 07:24 | P.PN ---
Subjective Progress Note Date: 04/09/19 Principal diagnosis: Acute coronary syndrome This is a 58-year-old gentleman who I requested to see earlier today for further evaluation off abnormal cardiac enzymes. Currently the patient is intubated and he is on mechanical ventilation. The history was taken from the nurse taking care of the patient as well as from the electronic medical records. The patient does have an extensive past medical history consistent of coronary artery disease, ischemic cardiomyopathy, hypertension, dyslipidemia, end stage renal disease on hemodialysis, as well as diabetes. Beside that he does have obstructive sleep apnea as well as chronic hypoxic respiratory failure. The last heart catheterization was performed in 2013 where at that point he underwent stenting of the right coronary artery. The last echocardiogram was performed in 2018 and that revealed cardiomyopathy with EF around 35-40% with evidence of wall motion abnormalities. This time, the patient was brought to the emergency room by his family with a change in mental status. He called his telling her that he was not feeling well. No indication of any chest pain or chest discomfort. Before that the patient skipped dialysis. When his arrived to see him the patient was lethargic and because of that he was brought to the emergency room. In the emergency room, the patient was quite lethargic and obtunded. He was at home receiving pain medication and apparently the patient took extra dose of narcotics. Beside that in the emergency room the patient was found to be hypotensive. Subsequently, the patient was intubated and placed on mechanical ventilation. He was also started on vasopressors was norepinephrine. There is a possible component of sepsis going on at this point as well and currently infectious disease is on 4 to see the patient. The EKG showed sinus rhythm with first-degree AV block with evidence of inferior as well as anterior ND, both seems to be old, without any ischemic ST or T-wave abnormalities concerning for ischemia. The troponin was checked and came in to be consistent with acute coronary syndrome. On follow-up with the patient today, 04/09/2019, the patient continues to be intubated on mechanical ventilation. Hemodynamically, he is unstable and requiring norepinephrine. He has been maintaining normal sinus mechanism. The troponin trend is consistent with acute coronary syndrome. Unfortunately, the platelet has been trending down and because without I am going to DC the heparin as well as DC the aspirin. The echocardiogram revealed normal LV function without any evidence of foreign motion abnormalities concerning for ischemia. Objective - Vital Signs Vital signs: Vital Signs Temp 99.2 F 04/09/19 04:00 Pulse 70 04/09/19 05:15 Resp 24 04/09/19 05:15 BP 188/85 04/09/19 01:00 Pulse Ox 98 04/09/19 05:15 Intake & Output 04/08/19 04/09/19 04/09/19 18:59 06:59 18:59 Intake Total 2594.347 1102.660 Output Total 188 105 Balance 2406.347 997.660 Weight 95.3 kg Intake: IV 1000 450 .9 bolus 1000 Sodium Chloride 0.9% 1, 0 450 000 ml @ 50 mls/hr IV . Q20H [facility] Rx#:[id number] Intake, IV Titration 1164.347 532.660 Amount Calcium Gluconate 1 gm In 100 Sodium Chloride 0.9% 100 ml @ 100 mls/hr IVPB ONCE ONE Rx#:[id number] Heparin Sod,Pork in 0.45% 10 179.133 NaCl 25,000 unit In 0.45 % NaCl 1 250ml.bag @ 10. 493 UNITS/KG/HR 10 mls/hr IV .Q24H [facility] Rx#: [id number] Magnesium Sulfate-D5w Pmx 50 1 gm In Dextrose/Water 1 100ml.bag @ 100 mls/hr IVPB ONCE ONE Rx#: [id number] Meropenem 2 gm In Sodium 100 Chloride 0.9% 100 ml @ 200 mls/hr IVPB Q8HR [facility] Rx#:[id number] Norepinephrine 32 mg In 28.681 3.527 Sodium Chloride 0.9% 218 ml @ 0.12 MCG/KG/MIN 5. 358 mls/hr IV .Q24H [facility] Rx#:[id number] Norepinephrine 4 mg In 254 Sodium Chloride 0.9% 250 ml @ 0.05 MCG/KG/MIN 18. 146 mls/hr IV .Q14H [facility] Rx#:[id number] Piperacillin-Tazobactam 3 125 .375 gm In Sodium Chloride 0.9% 100 ml @ 25 mls/hr IVPB Q12HR [facility] Rx #:[id number] Potassium Chloride 10 meq 100 In Water For Injection 1 100ml.bag @ 100 mls/hr IVPB ONCE [facility] Rx#: [id number] Propofol 1,000 mg In 271.666 300.000 Empty Bag 1 bag @ Titrate IV .Q0M [facility] Rx#: [id number] Sodium Chloride 0.9% 1, 125 50 000 ml @ 50 mls/hr IV . Q20H [facility] Rx#:[id number] Tube Feeding 100 120 Hemodialysis 300 Other 30 Output: Urine 82 105 Hemodialysis 106 Other: Voiding Method Indwelling Catheter Indwelling Catheter # Voids 0 ABP, PAP, CO, CI - Last Documented Arterial Blood Pressure 122/44 - Constitutional General appearance: Present: no acute distress - Respiratory Respiratory: bilateral: diminished - Cardiovascular Rhythm: regular Heart sounds: normal: S1, S2 - Labs CBC & Chem 7: 04/09/19 04:10 04/09/19 04:10 Labs: Abnormal Lab Results - Last 24 Hours (Table) 04/08/19 04/08/19 04/08/19 Range/Units 07:12 09:45 11:47 RBC (4.30-5.90) m/uL Hgb (13.0-17.5) gm/dL Hct (39.0-53.0) % RDW (11.5-15.5) % Plt Count (150-450) k/uL APTT (22.0-30.0) sec ABG pH (7.35-7.45) ABG pO2 (83-108) mmHg ABG HCO3 (21-25) mmol/L ABG Total CO2 (19-24) mmol/L ABG O2 Saturation (94-97) % Sodium (137-145) mmol/L BUN (9-20) mg/dL Creatinine (0.66-1.25) mg/dL Glucose (74-99) mg/dL POC Glucose (mg/dL) 274 H 185 H (75-99) mg/dL Calcium (8.4-10.2) mg/dL CK-MB (CK-2) 15.9 H (0.0-2.4) ng/mL Troponin I 3.800 H* (0.000-0.034) ng/mL 04/08/19 04/08/19 04/08/19 Range/Units 14:12 14:35 14:39 RBC 2.80 L (4.30-5.90) m/uL Hgb 9.5 L D (13.0-17.5) gm/dL Hct 27.1 L (39.0-53.0) % RDW 17.7 H (11.5-15.5) % Plt Count 60 L (150-450) k/uL APTT (22.0-30.0) sec ABG pH 7.50 H (7.35-7.45) ABG pO2 115 H (83-108) mmHg ABG HCO3 30 H (21-25) mmol/L ABG Total CO2 31 H (19-24) mmol/L ABG O2 Saturation 99.7 H (94-97) % Sodium (137-145) mmol/L BUN 25 H (9-20) mg/dL Creatinine 2.93 H (0.66-1.25) mg/dL Glucose 158 H (74-99) mg/dL POC Glucose (mg/dL) (75-99) mg/dL Calcium 7.7 L (8.4-10.2) mg/dL CK-MB (CK-2) (0.0-2.4) ng/mL Troponin I (0.000-0.034) ng/mL 04/08/19 04/08/19 04/08/19 Range/Units 17:38 17:50 20:20 RBC (4.30-5.90) m/uL Hgb (13.0-17.5) gm/dL Hct (39.0-53.0) % RDW (11.5-15.5) % Plt Count (150-450) k/uL APTT (22.0-30.0) sec ABG pH (7.35-7.45) ABG pO2 (83-108) mmHg ABG HCO3 (21-25) mmol/L ABG Total CO2 (19-24) mmol/L ABG O2 Saturation (94-97) % Sodium 135 L (137-145) mmol/L BUN 29 H (9-20) mg/dL Creatinine 3.53 H (0.66-1.25) mg/dL Glucose 203 H (74-99) mg/dL POC Glucose (mg/dL) 209 H (75-99) mg/dL Calcium 7.1 L (8.4-10.2) mg/dL CK-MB (CK-2) (0.0-2.4) ng/mL Troponin I 3.240 H* (0.000-0.034) ng/mL 04/08/19 04/09/19 04/09/19 Range/Units 20:20 01:15 04:10 RBC 2.62 L (4.30-5.90) m/uL Hgb 8.8 L (13.0-17.5) gm/dL Hct 25.7 L (39.0-53.0) % RDW 16.5 H (11.5-15.5) % Plt Count 54 L (150-450) k/uL APTT 33.3 H (22.0-30.0) sec ABG pH (7.35-7.45) ABG pO2 (83-108) mmHg ABG HCO3 (21-25) mmol/L ABG Total CO2 (19-24) mmol/L ABG O2 Saturation (94-97) % Sodium (137-145) mmol/L BUN (9-20) mg/dL Creatinine (0.66-1.25) mg/dL Glucose (74-99) mg/dL POC Glucose (mg/dL) 210 H (75-99) mg/dL Calcium (8.4-10.2) mg/dL CK-MB (CK-2) (0.0-2.4) ng/mL Troponin I (0.000-0.034) ng/mL 04/09/19 04/09/19 04/09/19 Range/Units 04:10 04:10 04:10 RBC (4.30-5.90) m/uL Hgb (13.0-17.5) gm/dL Hct (39.0-53.0) % RDW (11.5-15.5) % Plt Count (150-450) k/uL APTT 42.7 H (22.0-30.0) sec ABG pH (7.35-7.45) ABG pO2 (83-108) mmHg ABG HCO3 (21-25) mmol/L ABG Total CO2 (19-24) mmol/L ABG O2 Saturation (94-97) % Sodium 135 L (137-145) mmol/L BUN 34 H (9-20) mg/dL Creatinine 4.21 H (0.66-1.25) mg/dL Glucose 177 H (74-99) mg/dL POC Glucose (mg/dL) (75-99) mg/dL Calcium 6.9 L (8.4-10.2) mg/dL CK-MB (CK-2) (0.0-2.4) ng/mL Troponin I 2.180 H* (0.000-0.034) ng/mL 04/09/19 04/09/19 Range/Units 05:07 06:54 RBC (4.30-5.90) m/uL Hgb (13.0-17.5) gm/dL Hct (39.0-53.0) % RDW (11.5-15.5) % Plt Count (150-450) k/uL APTT (22.0-30.0) sec ABG pH 7.49 H (7.35-7.45) ABG pO2 (83-108) mmHg ABG HCO3 27 H (21-25) mmol/L ABG Total CO2 29 H (19-24) mmol/L ABG O2 Saturation 98.7 H (94-97) % Sodium (137-145) mmol/L BUN (9-20) mg/dL Creatinine (0.66-1.25) mg/dL Glucose (74-99) mg/dL POC Glucose (mg/dL) 184 H (75-99) mg/dL Calcium (8.4-10.2) mg/dL CK-MB (CK-2) (0.0-2.4) ng/mL Troponin I (0.000-0.034) ng/mL Microbiology - Last 24 Hours (Table) 04/07/19 19:28 Blood Culture - Preliminary Blood No Growth after 24 hours 04/08/19 01:30 Gram Stain - Preliminary Sputum Sputum Culture - Preliminary 04/08/19 02:57 Urine Culture - Preliminary Urine,Catheterized Assessment and Plan Assessment: Assessment #1 change in mental status could be secondary to narcotics overdose #2 acute hypoxic respiratory failure #3 acute non-ST elevation myocardial infarction #4 hypotension, could be cardiac related, and rule out sepsis component #5 into stage renal disease #6 coronary artery disease and prior revascularization #7 diabetes type 2 #8 multiple comorbid conditions Plan #1 continue ventilator support #2 DC the aspirin and DC the heparin, in view of the thrombocytopenia #3 continue statin #4 the echo reviewed and reveals normal LV function #5 consider coronary angiogram once the patient is stable from the pul monary/respiratory standpoint of view as well as from the infectious standpoint overview. Thank you for allowing us participate in his care
[2019-04-09] MEDS: PANTOPRAZOLE 40 MG TABLET PO SCH (08:05)
[2019-04-09] MEDS: LACTULOSE 20 GM/30 ML CUP PO SCH (08:05)
[2019-04-09] MEDS: GABAPENTIN 100 MG CAP PO SCH ×3 (08:05→23:27)
[2019-04-09] MEDS: CHLORHEXIDINE GLUCONATE 15 ML CUP MUCOUS MEM SCH (08:05)
[2019-04-09] MEDS: CITALOPRAM HYDROBROMIDE 10 MG TAB PO SCH (08:07)
[2019-04-09] MEDS: hydrALAZINE HCL 50 MG TAB PO SCH ×3 (08:07→23:27)
[2019-04-09] MEDS: ARIPiprazole 5 MG TAB PO SCH (08:07)
[2019-04-09] MEDS ORDERED: ASPIRIN 81 MG PO SCH (09:00)
[2019-04-09] MEDS ORDERED: INSULIN ASPART (NovoLOG) 100 UNIT/ML VIAL SQ SCH ×3 (10:15→17:30)
[2019-04-09] MEDS: Lubiprostone [Amitiza] 24 MCG PO SCH ×2 (11:38→22:41)
[2019-04-09 11:46] LABS: ABG Base Excess 1.3 mmol/L; ABG HCO3 26 mmol/L (21-25); ABG PCO2 41 mmHg (35-45); ABG PH 7.41 (7.35-7.45); ABG PO2 169 mmHg (83-108); ABG TCO2 27 mmol/L (19-24); Allen Test Performed? Yes
[2019-04-09 11:49] LABS: Glucose,Whole Blood 175 mg/dL (75-99)
[2019-04-09] MEDS: NOREPINEPHRINE 32 MG in SODIUM CHLORIDE 0.9% 218 ML IV SCH (12:05)
[2019-04-09] MEDS ORDERED: MEROPENEM 1 GM in SODIUM CHLORIDE 0.9% 100 ML IVPB PRN (13:06)
[2019-04-09] MEDS ORDERED: ALPRAZolam 0.25 MG TAB PO PRN (13:30)
[2019-04-09] MEDS ORDERED: HYDROmorphone 1 MG/ML 1 ML SYRINGE IVP STA (13:33)
--- NOTE | 2019-04-09 13:35 | P.PN ---
Subjective Progress Note Date: 04/09/19 This is a 58-year-old male patient of Dr. Drew and Dr. 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 Patient had previous admission June 2017 for metabolic encephalopathy and acute hypoxic hypercarbic respiratory failure secondary to acute diastolic heart failure and hypercarbia for which patient was briefly intubated. Followed by another admission for acute change in mental status, increased weakness worsening shortness of breath and cough. Patient was treated for sepsis, pancytopenia requiring transfusions, acute hypoxic hypercarbic respiratory failure requiring intubation secondary to fluid overload, acute on chronic systolic heart failure, possible gram-negative pneumonia that could not be ruled out during that ad mission. Patient had a prolonged course and was finally discharged on 06/15/2018. He was seen in June 2018 with pancytopenia secondary to chronic liver disease with bone marrow suppression from chronic alcohol use. He was seen by Dr. Major for esophageal varices and underlying possible cirrhosis as nodularity was noted on the liver with thrombocytopenia from hypersplenism. Patient was supposed to have EGD and colonoscopy and evaluation for possible kidney transplant. Patient presented to [facility] emergency center due to decreased level of consciousness. He apparently contacted his stating that he was not feeling well. He apparently skipped dialysis at least twice. According to the record, patient's found him to be quite sleepy and difficult to arouse. Patient was then brought into the hospital for evaluation. Patient is on Evans and morphine for chronic pain and was not determined patient had taken extra medication. Patient's apparently did not suspect a suicide attempt. The patient was given 3 doses of Narcan without much improveme nt. Lab work revealed potassium of 8.3, creatinine 85, creatinine 8.7. Blood sugar was 229. White cell count was at 16.2 with a hemoglobin was 12.9. The patient was given calcium gluconate. He also received D50 with insulin and albuterol for his hyperkalemia. CT of the brain and a CT angiogram that did not show any acute abnormalities. His EKG was sinus rhythm with a first-degree AV block. His troponin was at 0.7. Chest x-ray showed fluid overload/pulmonary edema. His lactic acid level was elevated at 3.1. Patient underwent emergent hemodialysis and transferred to the intensive care unit. Patient was initially on BiPAP but was subsequently intubated and placed on mechanical ventilation currently at tidal volume 500, FiO2 40, PEEP 5. The patient was then found to be hypotensive and was started on norepinephrine. WBC count went up to 18.3 and patient has been started on Zosyn and consult added for Dr. Nicholson. Patient also has the following consultants in place including cardiology for elevated troponins, nephrology for dialysis, Dr. Wharton for intensive care management, neurology to rule out CVA. 04/09: Patient remains in intensive care unit intubated and on mechanical ventilation with tidal volume 500, FiO2 40, PEEP 5. Patient's blood pressure has been labile and remains on norepinephrine. Temperature max 100.3. Heart rate 69, blood pressure currently 129/49. Repeat lab work reveals a normal weight, 7, hemoglobin 8.8 and platelet count of 54. BUN 34 and creatinine 4.21, sodium 135. Blood sugars running between 184 and 210. NovoLog scheduled insulin will be added along with increased dose of Levemir. Blood culture showing no growth at 24 hours and sputum and urine culture in progress. Repeat chest x-ray reveals right basilar atelectasis. Nephrology is following. On Dr. Ha has discontinued aspirin and heparin due to thrombocytopenia. Echocard iogram reveals normal LV function. Patient may under goal coronary angiogram once stable and cleared from pulmonary medicine and infectious disease. Dr. Nicholson has discontinued Zosyn due to thrombocytopenia and transition to meropenem. Objective - Vital Signs Vital signs: Vital Signs Temp 99.2 F 04/09/19 04:00 Pulse 75 04/09/19 07:27 Resp 24 04/09/19 05:15 BP 188/85 04/09/19 01:00 Pulse Ox 98 04/09/19 05:15 Intake & Output 04/08/19 04/09/19 04/09/19 18:59 06:59 18:59 Intake Total 2594.347 1102.660 Output Total 188 105 Balance 2406.347 997.660 Weight 95.3 kg Intake: IV 1000 450 .9 bolus 1000 Sodium Chloride 0.9% 1, 0 450 000 ml @ 50 mls/hr IV . Q20H [facility] Rx#:[id number] Intake, IV Titration 1164.347 532.660 Amount Calcium Gluconate 1 gm In 100 Sodium Chloride 0.9% 100 ml @ 100 mls/hr IVPB ONCE ONE Rx#:[id number] Heparin Sod,Pork in 0.45% 10 179.133 NaCl 25,000 unit In 0.45 % NaCl 1 250ml.bag @ 10. 493 UNITS/KG/HR 10 mls/hr IV .Q24H [facility] Rx#: [id number] Magnesium Sulfate-D5w Pmx 50 1 gm In Dextrose/Water 1 100ml.bag @ 100 mls/hr IVPB ONCE ONE Rx#: [id number] Meropenem 2 gm In Sodium 100 Chloride 0.9% 100 ml @ 200 mls/hr IVPB Q8HR [facility] Rx#:[id number] Norepinephrine 32 mg In 28.681 3.527 Sodium Chloride 0.9% 218 ml @ 0.12 MCG/KG/MIN 5. 358 mls/hr IV .Q24H [facility] Rx#:[id number] Norepinephrine 4 mg In 254 Sodium Chloride 0.9% 250 ml @ 0.05 MCG/KG/MIN 18. 146 mls/hr IV .Q14H [facility] Rx#:[id number] Piperacillin-Tazobactam 3 125 .375 gm In Sodium Chloride 0.9% 100 ml @ 25 mls/hr IVPB Q12HR [facility] Rx #:[id number] Potassium Chloride 10 meq 100 In Water For Injection 1 100ml.bag @ 100 mls/hr IVPB ONCE [facility] Rx#: [id number] Propofol 1,000 mg In 271.666 300.000 Empty Bag 1 bag @ Titrate IV .Q0M [facility] Rx#: [id number] Sodium Chloride 0.9% 1, 125 50 000 ml @ 50 mls/hr IV . Q20H [facility] Rx#:[id number] Tube Feeding 100 120 Hemodialysis 300 Other 30 Output: Urine 82 105 Hemodialysis 106 Other: Voiding Method Indwelling Catheter Indwelling Catheter # Voids 0 ABP, PAP, CO, CI - Last Documented Arterial Blood Pressure 122/44 - Exam Review of Systems ROS unobtainable: due to endotracheal tube Gen: This is a 58-year-old male. He is intubated and on mechanical ventilation. Patient appears to be comfortable. HEENT: Head is atraumatic, normocephalic. Pupils equal, round. Sclerae is anicteric. Oral mucous membranes are moist. Oral gastric and ET tube in place. NECK: Supple. No JVD. No lymphadenopathy. No thyromegaly. LUNGS: Clear to auscultation. No wheezes or rhonchi. No intercostal retractions. HEART: Regular rate and rhythm. No murmur. ABDOMEN: Soft. Bowel sounds are present. No masses. No tenderness. EXTREMITIES: No pedal edema. No calf tenderness. AV graft to the left upper extremity. NEUROLOGICAL: Patient is sedated with propofol. - Labs CBC & Chem 7: 04/09/19 04:10 04/09/19 04:10 Labs: Abnormal Lab Results - Last 24 Hours (Table) 04/08/19 04/08/19 04/08/19 Range/Units 09:45 11:47 14:12 RBC 2.80 L (4.30-5.90) m/uL Hgb 9.5 L D (13.0-17.5) gm/dL Hct 27.1 L (39.0-53.0) % RDW 17.7 H (11.5-15.5) % Plt Count 60 L (150-450) k/uL APTT (22.0-30.0) sec ABG pH (7.35-7.45) ABG pO2 (83-108) mmHg ABG HCO3 (21-25) mmol/L ABG Total CO2 (19-24) mmol/L ABG O2 Saturation (94-97) % Sodium (137-145) mmol/L BUN (9-20) mg/dL Creatinine (0.66-1.25) mg/dL Glucose (74-99) mg/dL POC Glucose (mg/dL) 185 H (75-99) mg/dL Calcium (8.4-10.2) mg/dL CK-MB (CK-2) 15.9 H (0.0-2.4) ng/mL Troponin I 3.800 H* (0.000-0.034) ng/mL 08/15/19 08/15/19 08/15/19 Range/Units 14:35 14:39 17:38 RBC (4.30-5.90) m/uL Hgb (13.0-17.5) gm/dL Hct (39.0-53.0) % RDW (11.5-15.5) % Plt Count (150-450) k/uL APTT (22.0-30.0) sec ABG pH 7.50 H (7.35-7.45) ABG pO2 115 H (83-108) mmHg ABG HCO3 30 H (21-25) mmol/L ABG Total CO2 31 H (19-24) mmol/L ABG O2 Saturation 99.7 H (94-97) % Sodium (137-145) mmol/L BUN 25 H (9-20) mg/dL Creatinine 2.93 H (0.66-1.25) mg/dL Glucose 158 H (74-99) mg/dL POC Glucose (mg/dL) 209 H (75-99) mg/dL Calcium 7.7 L (8.4-10.2) mg/dL CK-MB (CK-2) (0.0-2.4) ng/mL Troponin I (0.000-0.034) ng/mL 04/08/19 04/08/19 04/08/19 Range/Units 17:50 20:20 20:20 RBC (4.30-5.90) m/uL Hgb (13.0-17.5) gm/dL Hct (39.0-53.0) % RDW (11.5-15.5) % Plt Count (150-450) k/uL APTT 33.3 H (22.0-30.0) sec ABG pH (7.35-7.45) ABG pO2 (83-108) mmHg ABG HCO3 (21-25) mmol/L ABG Total CO2 (19-24) mmol/L ABG O2 Saturation (94-97) % Sodium 135 L (137-145) mmol/L BUN 29 H (9-20) mg/dL Creatinine 3.53 H (0.66-1.25) mg/dL Glucose 203 H (74-99) mg/dL POC Glucose (mg/dL) (75-99) mg/dL Calcium 7.1 L (8.4-10.2) mg/dL CK-MB (CK-2) (0.0-2.4) ng/mL Troponin I 3.240 H* (0.000-0.034) ng/mL 04/09/19 04/09/19 04/09/19 Range/Units 01:15 04:10 04:10 RBC 2.62 L (4.30-5.90) m/uL Hgb 8.8 L (13.0-17.5) gm/dL Hct 25.7 L (39.0-53.0) % RDW 16.5 H (11.5-15.5) % Plt Count 54 L (150-450) k/uL APTT (22.0-30.0) sec ABG pH (7.35-7.45) ABG pO2 (83-108) mmHg ABG HCO3 (21-25) mmol/L ABG Total CO2 (19-24) mmol/L ABG O2 Saturation (94-97) % Sodium 135 L (137-145) mmol/L BUN 34 H (9-20) mg/dL Creatinine 4.21 H (0.66-1.25) mg/dL Glucose 177 H (74-99) mg/dL POC Glucose (mg/dL) 210 H (75-99) mg/dL Calcium 6.9 L (8.4-10.2) mg/dL CK-MB (CK-2) (0.0-2.4) ng/mL Troponin I (0.000-0.034) ng/mL 04/09/19 04/09/19 04/09/19 Range/Units 04:10 04:10 05:07 RBC (4.30-5.90) m/uL Hgb (13.0-17.5) gm/dL Hct (39.0-53.0) % RDW (11.5-15.5) % Plt Count (150-450) k/uL APTT 42.7 H (22.0-30.0) sec ABG pH 7.49 H (7.35-7.45) ABG pO2 (83-108) mmHg ABG HCO3 27 H (21-25) mmol/L ABG Total CO2 29 H (19-24) mmol/L ABG O2 Saturation 98.7 H (94-97) % Sodium (137-145) mmol/L BUN (9-20) mg/dL Creatinine (0.66-1.25) mg/dL Glucose (74-99) mg/dL POC Glucose (mg/dL) (75-99) mg/dL Calcium (8.4-10.2) mg/dL CK-MB (CK-2) (0.0-2.4) ng/mL Troponin I 2.180 H* (0.000-0.034) ng/mL 04/09/19 Range/Units 06:54 RBC (4.30-5.90) m/uL Hgb (13.0-17.5) gm/dL Hct (39.0-53.0) % RDW (11.5-15.5) % Plt Count (150-450) k/uL APTT (22.0-30.0) sec ABG pH (7.35-7.45) ABG pO2 (83-108) mmHg ABG HCO3 (21-25) mmol/L ABG Total CO2 (19-24) mmol/L ABG O2 Saturation (94-97) % Sodium (137-145) mmol/L BUN (9-20) mg/dL Creatinine (0.66-1.25) mg/dL Glucose (74-99) mg/dL POC Glucose (mg/dL) 184 H (75-99) mg/dL Calcium (8.4-10.2) mg/dL CK-MB (CK-2) (0.0-2.4) ng/mL Troponin I (0.000-0.034) ng/mL Microbiology - Last 24 Hours (Table) 04/07/19 19:28 Blood Culture - Preliminary Blood No Growth after 24 hours 04/08/19 01:30 Gram Stain - Preliminary Sputum Sputum Culture - Preliminary 04/08/19 02:57 Urine Culture - Preliminary Urine,Catheterized Assessment and Plan Plan: 1. Acute metabolic encephalopathy possibly related to uremia and missed dialysis treatments, possibly related to narcotic use with Evans and MS Contin. Rule out CVA. Consult with neurology. CT angiogram of the brain and CT of the brain showed no acute process. 2. Acute hypoxic respiratory failure requiring intubation and mechanical ventilation. Consult with Dr. Dio sharpe. 3. Hypotension possibly related to sepsis of unclear etiology, possible abdominal source. Zosyn transitioned to meropenem by Dr Nicholson. 4. Acute non-ST elevated myocardial infarction. Cardiology consult. Heparin drip and aspirin discontinued. Continue Lipitor. Patient may require angiogram 1 stable and cleared by consultants. 5. Acute renal failure with acute hyperkalemia on top of End-stage renal disease secondary to missed dialysis treatments. Patient is normally scheduled on Friday. Nephrology consult appreciated. 6. Diabetes mellitus type 2, insulin requiring, with diabetic neuropathy. Diabetes uncontrolled secondary to hyperglycemia. Levemir increased and NovoLog scheduled every 6 hours added and NovoLog scale continued. 7. Chronic systolic heart failure. Continue dialysis 8. History of coronary artery disease status post stent in 2013. Continue Lipitor 80 mg at bedtime. 9. 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 10. History of recurrent pancreatitis secondary to alcohol abuse presenting with elevated lipase and possible component or source of sepsis with acute pancreatitis. 11. History of CVA. 12. Hyperlipidemia. 13. Hypertension, hypertensive cardiovascular disease. 14. Alcohol-induced liver disease with history of esophageal varices and underlying possible cirrhosis. Continue lactulose. 15. Chronic pancytopenia. Heparin drip, aspirin and Zosyn discontinued 16. DVT prophylaxis. Patient currently on heparin. 17. GI prophylaxis. Protonix. Discharge plan: To be determined. Most likely return home. Impression and plan of care have been directed as dictated by the signing isak garcia. Iram Love nurse practitioner acting as scribe for signing physician.
--- NOTE | 2019-04-09 15:01 | P.PN ---
Subjective Progress Note Date: 04/09/19 [id number] male patient presented to ED with diminished level of consciousness. He apparently contacted his stating that he was not feeling well. He apparently skipped dialysis that was supposed to be done on Friday. He normally dialyzes MWF regarding his incisional disease. When the came to see him at around 6 PM yesterday the patient was quite sleepy and was having difficulty arousing him. He was quite somnolent. Based on all this, the patient was brought into the ED. The patient has an incisional disease. The patient was also being treated with a combination morphine for chronic pain. Unsure if the patient took any excessive medications or narcotics. He takes these medications for chronic back and neck pain. No previous history of suicidal ideation. The patient underwent was given 3 doses of Narcan without much improvement. In the ED, the patient was found to have a potassium level of 8.3 with hyperacute T waves in addition to a BUN of 85 and a creatinine of 8.7. Her blood sugar was 229. White cell count was at 16.2 with a hemoglobin was 12.9. The patient was given calcium gluconate. He also received D50 with insulin and albuterol for his hyperkalemia. Nephrology was Negative for immediate dialysis. Workup for the altered mentation included a computed tomography scan of the brain and a CT angiogram that did not show any acute abnormalities. His EKG was sinus rhythm with a first-degree AV block. His troponin was at 0.7 and this was felt to be related to a type II cardiac injury in a patient with known history of incisional disease. The chest x-ray showed fluid overload/pulmonary edema. His lactic acid level was elevated at 3.1. The patient got transferred to the intensive care unit. While having dialysis, he was having difficulty in breathing and he was quite obtunded. Initially was placed on the BiPAP and subsequently he was intubated and placed on a mechanical ventilator. Post intubation he became hypotensive. A triple lumen catheter was inserted. The patient was started on norepinephrine infusion This morning, that his been completed without ultrafiltration. Potassium level has normalized and is down to 4.5. The patient's calcium level is at 6.3 and the patient is receiving another dose of calcium gluconate. He is sedated with propofol which is running at 40 g. He is on a mechanical ventilator on assist control mode with tidal volume of 500 with a rate of 18 and FiO2 of 40% with a PEEP of 5. The blood gases showed a pH of 7.29 with a pCO2 of 52 and pO2 167 and this was done on FiO2 of 50%. The patient is arousable to painful stimulation. Otherwise the is was sedated for now. Urine output is minimal. UA is negative. He is afebrile. The white cell count is at 18.3. Chest x-ray from today shows no acute abnormality. ET tube was high in the trachea and was rushed down further. No evidence of any consolidation or airspace disease. On 04/09/2019 I'm seeing this patient for a follow-up. The patient has still intubated on a mechanical ventilator. This morning he is still sedated with propofol and is calm and comfortable. He remains on assist control mode of ventilation with a tidal volume of 500 and FiO2 of 40% with a PEEP of 5 the blood gas showed a pH of 7.49 with a pCO2 of 36 and pO2 of 90. The patient's chest x-ray shows no acute abnormalities. ET tube is in a good location. No signs of any pneumonia or failure. Noted the patient was having episodes of hypotension. He was given IV fluids. He was also given pressors and currently the norepinephrine infusion is running at 5 mcg/m. The patient's white cell count is up to 27. Blood cultures negative. The patient on empiric antibiotic coverage with IV meropenem per IDs recommendation. This which was done as the patient was noted to have some underlying thrombocytopenia. Nephrology is on the case. The patient has already obtained 2 sessions of hemodialysis. No plans for hemodialysis today. No signs of any fluid overload. No major electrode imbalance and the patient's acute hyperkalemia is completely recov ered. Cultures are negative thus far. Note that the patient was also found to have elevation in troponin which peaked at 3.24 and currently is down to 2.1. A repeat echo showed a preserved LV function with an ejection fraction of 665%. No other significant valvular abnormalities. The patient was seen by Dr. Jones. The aspirin and heparin were discontinued due to underlying thrombocytopenia. A cardiac catheterization is being considered a later stage once the patient's condition is further stabilized. Objective - Vital Signs Vital signs: Vital Signs Temp 98.8 F 04/09/19 12:30 Pulse 92 04/09/19 14:30 Resp 19 04/09/19 14:30 BP 156/70 04/09/19 14:30 Pulse Ox 96 04/09/19 14:30 Intake & Output 04/08/19 04/09/19 04/09/19 18:59 06:59 18:59 Intake Total 2594.347 1102.660 606.002 Output Total 188 105 112 Balance 2406.347 997.660 494.002 Weight 95.3 kg 95.3 kg Intake: IV 1000 450 150 .9 bolus 1000 Sodium Chloride 0.9% 1, 0 450 150 000 ml @ 50 mls/hr IV . Q20H [facility] Rx#:[id number] Intake, IV Titration 1164.347 532.660 306.002 Amount Calcium Gluconate 1 gm In 100 Sodium Chloride 0.9% 100 ml @ 100 mls/hr IVPB ONCE ONE Rx#:[id number] Heparin Sod,Pork in 0.45% 10 179.133 NaCl 25,000 unit In 0.45 % NaCl 1 250ml.bag @ 10. 493 UNITS/KG/HR 10 mls/hr IV .Q24H [facility] Rx#: [id number] Magnesium Sulfate-D5w Pmx 50 1 gm In Dextrose/Water 1 100ml.bag @ 100 mls/hr IVPB ONCE ONE Rx#: [id number] Meropenem 2 gm In Sodium 100 100 Chloride 0.9% 100 ml @ 200 mls/hr IVPB Q8HR [facility] Rx#:[id number] Norepinephrine 32 mg In 28.681 3.527 35.891 Sodium Chloride 0.9% 218 ml @ 0.12 MCG/KG/MIN 5. 358 mls/hr IV .Q24H [facility] Rx#:[id number] Norepinephrine 4 mg In 254 Sodium Chloride 0.9% 250 ml @ 0.05 MCG/KG/MIN 18. 146 mls/hr IV .Q14H [facility] Rx#:[id number] Piperacillin-Tazobactam 3 125 .375 gm In Sodium Chloride 0.9% 100 ml @ 25 mls/hr IVPB Q12HR [facility] Rx #:[id number] Potassium Chloride 10 meq 100 In Water For Injection 1 100ml.bag @ 100 mls/hr IVPB ONCE [facility] Rx#: [id number] Propofol 1,000 mg In 271.666 300.000 170.111 Empty Bag 1 bag @ Titrate IV .Q0M [facility] Rx#: [id number] Sodium Chloride 0.9% 1, 125 50 000 ml @ 50 mls/hr IV . Q20H [facility] Rx#:[id number] Tube Feeding 100 120 120 Hemodialysis 300 Other 30 30 Output: Urine 82 105 112 Hemodialysis 106 Other: Voiding Method Indwelling Catheter Indwelling Catheter Indwelling Catheter # Voids 0 # Bowel Movements 2 ABP, PAP, CO, CI - Last Documented Arterial Blood Pressure 122/42 - Exam GEN appears comfortable comfortable intubated on a mechanical ventilator. Head exam was generally normal. There was no scleral icterus or corneal arcus. Mucous membranes were moist. Neck was supple and without jugular venous distension, thyromegaly, or carotid bruits. Carotids were easily palpable bilaterally. There was no adenopathy. The patient is a right IJ triple lumen catheter in place. Orogastric and orotracheal tube are both in place. Lungs were clear to auscultation and percussion, and with normal diaphragmatic excursion. No wheezes or rales were noted. Cardiac exam revealed the PMI to be normally situated and sized. The rhythm was regular and no extrasystoles were noted during several minutes of auscultation. The first and second heart sounds were normal and physiologic splitting of the second heart sound was noted. There were no murmurs, rubs, clicks, or gallops. Abdominal exam revealed normal bowel sounds. The abdomen was soft, non-tender, and without masses, organomegaly, or appreciable enlargement of the abdominal aorta. Extremities revealed an AV graft in the left upper extremity. The patient has an a line in the right radial artery. No cyanosis no clubbing. Pulses are d iminished at the present in the lower extremity is bilaterally. External wheezes are warm. There is no cyanosis or clubbing at this point in time. Neurologically the patient sedated with propofol. The patient is withdrawing to deep painful stimulation no 4 extremities. Pupils are equal and reactive to light around 3 mm and the patient has no preferential gaze or facial asymmetry at this point in time. - Labs CBC & Chem 7: 04/09/19 04:10 04/09/19 04:10 Labs: Abnormal Lab Results - Last 24 Hours (Table) 04/08/19 04/08/1904/08/19 Range/Units 14:12 14:35 17:38 RBC 2.80 L (4.30-5.90) m/uL Hgb 9.5 L D (13.0-17.5) gm/dL Hct 27.1 L (39.0-53.0) % RDW 17.7 H (11.5-15.5) % Plt Count 60 L (150-450) k/uL APTT (22.0-30.0) sec ABG pH (7.35-7.45) ABG pO2 (83-108) mmHg ABG HCO3 (21-25) mmol/L ABG Total CO2 (19-24) mmol/L ABG O2 Saturation (94-97) % Sodium (137-145) mmol/L BUN 25 H (9-20) mg/dL Creatinine 2.93 H (0.66-1.25) mg/dL Glucose 158 H (74-99) mg/dL POC Glucose (mg/dL) 209 H (75-99) mg/dL Calcium 7.7 L (8.4-10.2) mg/dL Troponin I (0.000-0.034) ng/mL 04/08/19 04/08/19 04/08/19 Range/Units 17:50 20:20 20:20 RBC (4.30-5.90) m/uL Hgb (13.0-17.5) gm/dL Hct (39.0-53.0) % RDW (11.5-15.5) % Plt Count (150-450) k/uL APTT 33.3 H (22.0-30.0) sec ABG pH (7.35-7.45) ABG pO2 (83-108) mmHg ABG HCO3 (21-25) mmol/L ABG Total CO2 (19-24) mmol/L ABG O2 Saturation (94-97) % Sodium 135 L (137-145) mmol/L BUN 29 H (9-20) mg/dL Creatinine 3.53 H (0.66-1.25) mg/dL Glucose 203 H (74-99) mg/dL POC Glucose (mg/dL) (75-99) mg/dL Calcium 7.1 L (8.4-10.2) mg/dL Troponin I 3.240 H* (0.000-0.034) ng/mL 04/09/19 04/09/19 04/09/19 Range/Units 01:15 04:10 04:10 RBC 2.62 L (4.30-5.90) m/uL Hgb 8.8 L (13.0-17.5) gm/dL Hct 25.7 L (39.0-53.0) % RDW 16.5 H (11.5-15.5) % Plt Count 54 L (150-450) k/uL APTT (22.0-30.0) sec ABG pH (7.35-7.45) ABG pO2 (83-108) mmHg ABG HCO3 (21-25) mmol/L ABG Total CO2 (19-24) mmol/L ABG O2 Saturation (94-97) % Sodium 135 L (137-145) mmol/L BUN 34 H (9-20) mg/dL Creatinine 4.21 H (0.66-1.25) mg/dL Glucose 177 H (74-99) mg/dL POC Glucose (mg/dL) 210 H (75-99) mg/dL Calcium 6.9 L (8.4-10.2) mg/dL Troponin I (0.000-0.034) ng/mL 04/09/19 04/09/19 04/09/19 Range/Units 04:10 04:10 05:07 RBC (4.30-5.90) m/uL Hgb (13.0-17.5) gm/dL Hct (39.0-53.0) % RDW (11.5-15.5) % Plt Count (150-450) k/uL APTT 42.7 H (22.0-30.0) sec ABG pH 7.49 H (7.35-7.45) ABG pO2 (83-108) mmHg ABG HCO3 27 H (21-25) mmol/L ABG Total CO2 29 H (19-24) mmol/L ABG O2 Saturation 98.7 H (94-97) % Sodium (137-145) mmol/L BUN (9-20) mg/dL Creatinine (0.66-1.25) mg/dL Glucose (74-99) mg/dL POC Glucose (mg/dL) (75-99) mg/dL Calcium (8.4-10.2) mg/dL Troponin I 2.180 H* (0.000-0.034) ng/mL 04/09/19 04/09/19 04/09/19 Range/Units 06:54 11:37 11:41 RBC (4.30-5.90) m/uL Hgb (13.0-17.5) gm/dL Hct (39.0-53.0) % RDW (11.5-15.5) % Plt Count (150-450) k/uL APTT (22.0-30.0) sec ABG pH (7.35-7.45) ABG pO2 169 H (83-108) mmHg ABG HCO3 26 H (21-25) mmol/L ABG Total CO2 27 H (19-24) mmol/L ABG O2 Saturation 100.0 H (94-97) % Sodium (137-145) mmol/L BUN (9-20) mg/dL Creatinine (0.66-1.25) mg/dL Glucose (74-99) mg/dL POC Glucose (mg/dL) 184 H 175 H (75-99) mg/dL Calcium (8.4-10.2) mg/dL Troponin I (0.000-0.034) ng/mL Microbiology - Last 24 Hours (Table) 04/07/19 19:28 Blood Culture - Preliminary Blood No Growth after 24 hours 04/08/19 01:30 Gram Stain - Preliminary Sputum Sputum Culture - Preliminary Assessment and Plan Plan: 1 altered mental status, probably multifactorial as the patient could have been encephalopathic secondary to uremia/missed dialysis and in same time there is a concern that the patient has taken excessive amount of narcotic medications as the patient is on a combination of [place] and [place] Contin on outpatient basis. In any rate, the patient had a negative computed tomography scan of the brain and CT angios the brain and he did not respond to Narcan. During the process, the patient had to be intubated and placed on a mechanical ventilator. The patient also underwent a session of hemodialysis ultrafiltration yesterday. On today's evaluation of 04/09/2019, the patient's postdialysis, the patient not take any form of narcotic medications. He is on sedation with propofol and the patient's mental status will be checked while being given a sedation holiday. The patient is or the undergone 2 sessions of hemodialysis. 2 acute hypoxic respiratory failure with a component of fluid overload, currently intubated on a mechanical ventilator this patient's oxygenation is improved and the follow-up blood gases were noted and a follow-up chest x-ray was also noted. 3 hypotension currently on norepinephrine infusion at 0.05 micrograms per KG per minute and a dose being gradually weaned off. Meanwhile, the patient is maintaining a decent blood pressure and all of the cultures are negative. He was found to have a acute non-STEMI yet the echo cardiac grams with a preserved LV function with an ejection fraction of 60%. 4 End stage renal disease on hemodialysis 3 times a week MWF 5 coronary artery disease with limited troponin leak, type II cardiac injury versus an acute non-STEMI. Cardiology evaluated the patient and patient will be needing a catheterization at a later stage 6 CHF with systolic heart failure with an ejection fraction of 30-35% and segmental wall motion abnormalities based on previous echocardiogram. Repeat ec ho cardiac on that was done during this current admission showed a preserved LV function. Ejection fraction is up to 60%. 7 leukocytosis, improved 8 chronic thrombocytopenia, with interval drop in late is contemplated to medications including heparin or Zosyn. Appropriate adjustments were done. Heparin was discontinued and the patient was switched to meropenem. 9 acute hyperkalemia treated the patient's potassium level is down to 4.5 and he was treated per protocol regarding hyperkalemia and he has undergone a session of hemodialysis 10 COPD 11 diabetes mellitus type 2 13 peripheral neuropathy 14 chronic alcoholism none for now 15 history of chronic pancreatitis 16 previous history of CVA with some right-sided weakness 17 previous history of ARDS requiring intubation and prolonged mechanical ventilation requiring tracheostomy tube insertion 18 chronic thrombocytopenia related to above 19 splenomegaly 20 previous history of esophageal varices without previous bleeding 21 previous history of narcotic/opiate overdose Plan Overall condition is stable. The patient will be given a sedation holiday. We'll check weaning parameters and accordingly with the site of the patient is a candidate for further weaning. If so, we'll give a spelled his breathing trial and obtain a follow-up blood gas in 30 minutes and proceeded with extubation. I think the patient is potentially extubated bilateral as long as he has adequate mentation and is able to follow commands without any major difficulties. I'm hoping his mental status has recovered following dialysis the discontinuation of the narcotic medications. Keep the tube feeds on hold for now. Wean off pressors. Continue IV Merrem. Follow-up cultures. Echo was noted. Input from the rest of the consultants have been all noted. We'll continue to follow. Critically care evaluation that was done and more than 30 minutes. Time with Patient: Greater than 30
[2019-04-09] MEDS: HYDROcodone/APAP 10-325MG 1 EACH TAB PO SCH ×3 (15:42→23:26)
--- NOTE | 2019-04-09 17:46 | PN ---
PROGRESS NOTE Patient is seen for followup for end-stage renal disease. This morning when patient was seen he was being extubated. He has not had any further episodes of hypotension. On examination this morning, blood pressure was 146/60. Patient is afebrile. Heart rate about 80 per minute. EXAMINATION OF THE HEART: S1 and S2. EXAMINATION OF LUNGS: Bilateral breath sounds are heard. ABDOMEN: Soft, non-tender. Examination of lower extremities shows no evidence of edema. Labs show sodium of 135, potassium 4.2. Troponin was 2.1, hemoglobin 8.8 g/dL. ASSESSMENT: 1. End-stage renal disease, on hemodialysis on a Friday, Friday, Friday schedule. We will arrange for dialysis in a.m. He received 2 days of consecutive treatments. Currently patient is not volume-overloaded or hyperkalemic. 2. Severe hyperkalemia on initial admission, currently resolved. 3. Vent-dependent respiratory failure, hypoxic acute respiratory failure associated with unresponsiveness and severe encephalopathy. 4. Encephalopathy, most likely related to medications. 5. Elevated troponins secondary to [id number] myocardial infarction, being followed by Cardiology. The heparin will be discontinued. 6. Chronic thrombocytopenia associated with splenomegaly. Platelet count at baseline. PLAN: Hemodialysis in a.m. Start patient on renal diet once he is able to eat. MMODL / IJN: [id number] /
[2019-04-09 17:48] LABS: Glucose,Whole Blood 89 mg/dL (75-99)
[2019-04-09] MEDS: INSULIN DETEMIR (LEVEMIR) 100 UNIT/ML SYR SQ SCH ×2 (22:41→23:28)
[2019-04-09] MEDS: ATORVASTATIN 80 MG TAB PO SCH ×2 (22:41→23:27)
[2019-04-09 22:51] LABS: Glucose,Whole Blood 121 mg/dL (75-99)
[2019-04-09] MEDS: MEROPENEM 1 GM in SODIUM CHLORIDE 0.9% 100 ML IVPB SCH (23:20)
[2019-04-09] MEDS: MORPHINE SULFATE ER 30 MG TABLET PO SCH (23:27)
--- NOTE | 2019-04-09 23:50 | P.PN ---
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 Patient had previous admission June 2017 for metabolic encephalopathy and acute hypoxic hypercarbic respiratory failure secondary to acute diastolic heart failure and hypercarbia for which patient was briefly intubated. Followed by another admission for acute change in mental status, increased weakness worsening shortness of breath and cough. Patient was treated for sepsis, pancytopenia requiring transfusions, acute hypoxic hypercarbic respiratory failu re requiring intubation secondary to fluid overload, acute on chronic systolic heart failure, possible gram-negative pneumonia that could not be ruled out during that admission. Patient had a prolonged course and was finally discharged on 06/15/2018. He was seen in June 2018 with pancytopenia secondary to chronic liver disease with bone marrow suppression from chronic alcohol use. He was seen by Dr. Major for esophageal varices and underlying possible cirrhosis as nodularity was noted on the liver with thrombocytopenia from hypersplenism. Patient was supposed to have EGD and colonoscopy and evaluation for possible kidney transplant. Patient presented to [facility] emergency center due to decreased level of consciousness. He apparently contacted his stating that he was not feeling well. He apparently skipped dialysis at least twice. According to the record, patient's found him to be quite sleepy and difficult to arouse. Patient was then brought into the hospital for evaluation. Patient is on [place] and morphine for chronic pain and was not determined patient had taken extra medication. Patient's apparently did not suspect a suicide attempt. The patient was given 3 doses of Narcan without much improvement. Lab work revealed potassium of 8.3, creatinine 85, creatinine 8.7. Blood sugar was 229. White cell count was at 16.2 with a hemoglobin was 12.9. The patient was given calcium gluconate. He also received D50 with insulin and albuterol for his hyperkalemia. CT of the brain and a CT angiogram that did not show any acute abnormalities. His EKG was sinus rhythm with a first-degree AV block. His troponin was at 0.7. Chest x-ray showed fluid overload/pulmonary edema. His lactic acid level was elevated at 3.1. Patient underwent emergent hemodialysis and transferred to the intensive care unit. Patient was initially on BiPAP but was subsequently intubated and placed on mechanical ventilation currently at tidal volume 500, FiO2 40, PEEP 5. The patient was then found to be hypotensive and was started on norepinephrine. WBC count went up to 18.3 and patient has been started on Zosyn. Patient also has the following consultants in place including cardiology for elevated troponins, nephrology for dialysis, Dr. Wharton for intensive care management, neurology to rule out CVA. 04/09/2019 H now but steady improvement in patient's status. He is extubated, feeling somewhat better. Looks forward to try to be able to eat after his 4 hour window was up post extubation. He is awake and alert to person place and e ventually does go okay with time. He has chronic back pain that is not doing well at this point in time asking pharmacy of subcutaneous morphine is available to help with the severe pain. Eventually will hopefully have new IV access placed. Patient working well for his second session of hemodialysis and again potassium is markedly improved he is having feeling better without fever or chill. Objective - Vital Signs Vital signs: Vital Signs Temp 98.1 F 04/09/19 16:00 Pulse 84 04/09/19 19:50 Resp 16 04/09/19 19:00 BP 127/48 04/09/19 19:00 Pulse Ox 100 04/09/19 19:00 Intake & Output 04/09/19 04/09/19 04/10/19 06:59 18:59 06:59 Intake Total 1102.660 656.002 120 Output Total 105 112 Balance 997.660 544.002 120 Weight 95.3 kg Intake: IV 450 150 Sodium Chloride 0.9% 1, 450 150 000 ml @ 50 mls/hr IV . Q20H NATHAN Rx#:[id number] Intake, IV Titration 532.660 306.002 Amount Heparin Sod,Pork in 0.45% 179.133 NaCl 25,000 unit In 0.45 % NaCl 1 250ml.bag @ 10. 493 UNITS/KG/HR 10 mls/hr IV .Q24H NATHAN Rx#: [id number] Meropenem 2 gm In Sodium 100 Chloride 0.9% 100 ml @ 200 mls/hr IVPB Q8HR NATHAN Rx#:[id number] Norepinephrine 32 mg In 3.527 35.891 Sodium Chloride 0.9% 218 ml @ 0.12 MCG/KG/MIN 5. 358 mls/hr IV .Q24H NATHAN Rx#:[id number] Propofol 1,000 mg In 300.000 170.111 Empty Bag 1 bag @ Titrate IV .Q0M NATHAN Rx#: [id number] Sodium Chloride 0.9% 1, 50 000 ml @ 50 mls/hr IV . Q20H NATHAN Rx#:[id number] Oral 50 120 Tube Feeding 120 120 Other 30 Output: Urine 105 112 Other: Voiding Method Indwelling Catheter Indwelling Catheter # Bowel Movements 1 ABP, PAP, CO, CI - Last Documented Arterial Blood Pressure 122/42 - Exam Gen: This is a 58-year-old male. Extubated awake and alert HEENT: Head is atraumatic, normocephalic. Pupils equal, round. Sclerae is anicteric. Oral mucous membranes are moist. Oral gastric and ET tube in place. NECK: Supple. No JVD. No lymphadenopathy. No thyromegaly. LUNGS: Clear to auscultation. No wheezes or rhonchi. No intercostal retractions. HEART: Regular rate and rhythm. No murmur. ABDOMEN: Soft. Bowel sounds are present. No masses. No tenderness. EXTREMITIES: No pedal edema. No calf tenderness. AV graft to the left upper extremity. NEUROLOGICAL: With extubation he is awake alert person place and time mostly. No acute gross focal sensory motor deficits - Labs CBC & Chem 7: 04/09/19 04:10 04/09/19 04:10 Labs: Abnormal Lab Results - Last 24 Hours (Table) 04/09/19 04/09/19 04/09/19 Range/Units 01:15 04:10 04:10 RBC 2.62 L (4.30-5.90) m/uL Hgb 8.8 L (13.0-17.5) gm/dL Hct 25.7 L (39.0-53.0) % RDW 16.5 H (11.5-15.5) % Plt Count 54 L (150-450) k/uL APTT (22.0-30.0) sec ABG pH (7.35-7.45) ABG pO2 (83-108) mmHg ABG HCO3 (21-25) mmol/L ABG Total CO2 (19-24) mmol/L ABG O2 Saturation (94-97) % Sodium 135 L (137-145) mmol/L BUN 34 H (9-20) mg/dL Creatinine 4.21 H (0.66-1.25) mg/dL Glucose 177 H (74-99) mg/dL POC Glucose (mg/dL) 210 H (75-99) mg/dL Calcium 6.9 L (8.4-10.2) mg/dL Troponin I (0.000-0.034) ng/mL 04/09/19 04/09/19 04/09/19 Range/Units 04:10 04:10 05:07 RBC (4.30-5.90) m/uL Hgb (13.0-17.5) gm/dL Hct (39.0-53.0) % RDW (11.5-15.5) % Plt Count (150-450) k/uL APTT 42.7 H (22.0-30.0) sec ABG pH 7.49 H (7.35-7.45) ABG pO2 (83-108) mmHg ABG HCO3 27 H (21-25) mmol/L ABG Total CO2 29 H (19-24) mmol/L ABG O2 Saturation 98.7 H (94-97) % Sodium (137-145) mmol/L BUN (9-20) mg/dL Creatinine (0.66-1.25) mg/dL Glucose (74-99) mg/dL POC Glucose (mg/dL) (75-99) mg/dL Calcium (8.4-10.2) mg/dL Troponin I 2.180 H* (0.000-0.034) ng/mL 04/09/19 04/09/19 04/09/19 Range/Units 06:54 11:37 11:41 RBC (4.30-5.90) m/uL Hgb (13.0-17.5) gm/dL Hct (39.0-53.0) % RDW (11.5-15.5) % Plt Count (150-450) k/uL APTT (22.0-30.0) sec ABG pH (7.35-7.45) ABG pO2 169 H (83-108) mmHg ABG HCO3 26 H (21-25) mmol/L ABG Total CO2 27 H (19-24) mmol/L ABG O2 Saturation 100.0 H (94-97) % Sodium (137-145) mmol/L BUN (9-20) mg/dL Creatinine (0.66-1.25) mg/dL Glucose (74-99) mg/dL POC Glucose (mg/dL) 184 H 175 H (75-99) mg/dL Calcium (8.4-10.2) mg/dL Troponin I (0.000-0.034) ng/mL 04/09/19 Range/Units 22:40 RBC (4.30-5.90) m/uL Hgb (13.0-17.5) gm/dL Hct (39.0-53.0) % RDW (11.5-15.5) % Plt Count (150-450) k/uL APTT (22.0-30.0) sec ABG pH (7.35-7.45) ABG pO2 (83-108) mmHg ABG HCO3 (21-25) mmol/L ABG Total CO2 (19-24) mmol/L ABG O2 Saturation (94-97) % Sodium (137-145) mmol/L BUN (9-20) mg/dL Creatinine (0.66-1.25) mg/dL Glucose (74-99) mg/dL POC Glucose (mg/dL) 121 H (75-99) mg/dL Calcium (8.4-10.2) mg/dL Troponin I (0.000-0.034) ng/mL Microbiology - Last 24 Hours (Table) 04/07/19 19:28 Blood Culture - Preliminary Blood No Growth after 48 hours 04/08/19 02:57 Urine Culture - Final Urine,Catheterized Laboratory Results WBC 7.0 k/uL (3.8-10.6) 04/09/19 04:10 RBC 2.62 m/uL (4.30-5.90) L 04/09/19 04:10 Hgb 8.8 gm/dL (13.0-17.5) L 04/09/19 04:10 Hct 25.7 % (39.0-53.0) L 04/09/19 04:10 MCV 97.9 fL (80.0-100.0) 04/09/19 04:10 MCH 33.6 pg (25.0-35.0) 04/09/19 04:10 MCHC 34.3 g/dL (31.0-37.0) 04/09/19 04:10 RDW 16.5 % (11.5-15.5) H 04/09/19 04:10 Plt Count 54 k/uL (150-450) L 04/09/19 04:10 Neutrophils % 78 % 04/09/19 04:10 Lymphocytes % 14 % 04/09/19 04:10 Monocytes % 5 % 04/09/19 04:10 Eosinophils % 1 % 04/09/19 04:10 Basophils % 0 % 04/09/19 04:10 Neutrophils # 5.5 k/uL (1.3-7.7) 04/09/19 04:10 Lymphocytes # 1.0 k/uL (1.0-4.8) 04/09/19 04:10 Monocytes # 0.4 k/uL (0-1.0) 04/09/19 04:10 Eosinophils # 0.1 k/uL (0-0.7) 04/09/19 04:10 Basophils # 0.0 k/uL (0-0.2) 04/09/19 04:10 Manual Slide Review Performed 04/08/19 14:12 Hyperchromasia Slight 04/08/19 14:12 Poikilocytosis Slight 04/09/19 04:10 Anisocytosis Slight 04/09/19 04:10 Macrocytosis Slight 04/09/19 04:10 PT 11.4 sec (9.0-12.0) 04/08/19 14:12 INR 1.1 (<1.2) 04/08/19 14:12 APTT 42.7 sec (22.0-30.0) H 04/09/19 04:10 Sample Site [place] 04/09/19 11:41 ABG pH 7.41 (7.35-7.45) 04/09/19 11:41 ABG pCO2 41 mmHg (35-45) 04/09/19 11:41 ABG pO2 169 mmHg (83-108) H 04/09/19 11:41 ABG HCO3 26 mmol/L (21-25) H 04/09/19 11:41 ABG Total CO2 27 mmol/L (19-24) H 04/09/19 11:41 ABG O2 Saturation 100.0 % (94-97) H 04/09/19 11:41 ABG Base Excess 1.3 mmol/L 04/09/19 11:41 Jesus Manuel Test Yes 04/09/19 11:41 ABG Lactic Acid 1.1 mmol/L (0.5-1.6) 04/08/19 20:20 FiO2 40 % 04/09/19 11:41 Sodium 135 mmol/L (137-145) L 04/09/19 04:10 Potassium 4.2 mmol/L (3.5-5.1) 04/09/19 04:10 Chloride 99 mmol/L (98-107) 04/09/19 04:10 Carbon Dioxide 27 mmol/L (22-30) 04/09/19 04:10 Anion Gap 9 mmol/L 04/09/19 04:10 BUN 34 mg/dL (9-20) H 04/09/19 04:10 Creatinine 4.21 mg/dL (0.66-1.25) H 04/09/19 04:10 Est GFR (CKD-EPI)AfAm 17 (>60 ml/min/1.73 sqM) 04/09/19 04:10 Est GFR (CKD-EPI)NonAf 14 (>60 ml/min/1.73 sqM) 04/09/19 04:10 Glucose 177 mg/dL (74-99) H 04/09/19 04:10 POC Glucose (mg/dL) 121 mg/dL (75-99) H 04/09/19 22:40 POC Glu Clinical Engineer ID Fercho Borja 04/09/19 22:40 Lactic Ac Sepsis Rflx Y 04/07/19 20:55 Plasma Lactic Acid [place] 3.1 mmol/L (0.7-2.0) H* 04/07/19 19:28 Calcium 6.9 mg/dL (8.4-10.2) L 04/09/19 04:10 Ionized Calcium Rak[place] 3.3 mg/dL (4.5-5.3) L* 04/08/19 05:50 Phosphorus 7.6 mg/dL (2.5-4.5) H 04/08/19 04:46 Magnesium 2.2 mg/dL (1.6-2.3) 04/08/19 20:20 Total Bilirubin 0.8 mg/dL (0.2-1.3) 04/07/19 19:28 AST 54 U/L (17-59) 04/07/19 19:28 ALT 39 U/L (21-72) 04/07/19 19:28 Alkaline Phosphatase 97 U/L (38-126) 04/07/19 19:28 CK-MB (CK-2) 15.9 ng/mL (0.0-2.4) H 04/08/19 09:45 Troponin I 2.180 ng/mL (0.000-0.034) H* 04/09/19 04:10 Total Protein 7.4 g/dL (6.3-8.2) 04/07/19 19:28 Albumin 4.5 g/dL (3.5-5.0) 04/07/19 19:28 Lipase 641 U/L (23-300) H 04/07/19 19:28 Urine Color Yellow 04/08/19 02:57 Urine Appearance Clear (Clear) 04/08/19 02:57 Urine pH 6.0 (5.0-8.0) 04/08/19 02:57 Ur Specific [place] 1.015 (1.001-1.035) 04/08/19 02:57 Urine Protein 2+ (Negative) H 04/08/19 02:57 Urine Glucose (UA) 1+ (Negative) H 04/08/19 02:57 Urine Ketones Negative (Negative) 04/08/19 02:57 Urine Blood Negative (Negative) 04/08/19 02:57 Urine Nitrite Negative (Negative) 04/08/19 02:57 Urine Bilirubin Negative (Negative) 04/08/19 02:57 Urine Urobilinogen <2.0 mg/dL (<2.0) 04/08/19 02:57 Ur Leukocyte Esterase Negative (Negative) 04/08/19 02:57 Urine WBC 1 /hpf (0-5) 04/08/19 02:57 Urine Mucus Rare /hpf (None) H 04/08/19 02:57 Hep Bs Antigen Non-Reactive (Non-Reactive) 04/08/19 00:15 Hep Bs Antibody Non-Reactive (Non-Reactive) 04/08/19 00:15 Hep Bs Antibody, Quant 3.5 mIU/mL 04/08/19 00:15 Microbiology 04/07/19 19:28 Blood Blood Culture - Preliminary No Growth after 48 hours 04/08/19 02:57 Urine,Catheterized Urine Culture - Final 04/08/19 01:30 Sputum Gram Stain - Preliminary 04/08/19 01:30 Sputum Sputum Culture - Preliminary Assessment and Plan (1) ESRD (end stage renal disease) Current Visit: Yes Status: Acute Code(s): N18.6 - END STAGE RENAL DISEASE SNOMED Code(s): 23562553 (2) Sepsis Narrative/Plan: 58-year-old male presents to Hospital as noted with a several-day history of progressive illness. He has end-stage renal disease on hemodialysis and missed 2 dialysis sessions. At presentation his potassium was greater than 8 and currently underwent to urgent dialysis sessions to reduce his potassium. He p otentially had an opiate overdose at admission and had evidence of altered mentation respiratory failure and hypotension which required intubation and mechanical ventilation. This continues and remains in intensive care unit sedated and on vasopressor therapy with ongoing significant hypotension. The patient has evidence of elevated troponins and his concerns to an acute myocardial infarction. The patient is on dialysis and has evidence of sepsis and consequently antibiotic therapy will need to include vancomycin. The patient was started on Zosyn however his platelets have started to decrease even further wish to be in the base of the sepsis with could be a piperacillin effect. Is also notation of the markedly elevated lipase and constantly we'll have to consider the possibility of sepsis related to pancreatitis and Zosyn as transitioned to meropenem. Cultures were further help direct therapy in the multiple evaluations may further help or specifically identified the etiology of the sepsis. 04/09/2019 the patient is now much improved after his dialysis sessions and improvement of his potassium. He is receiving extensive antibiotic therapy with concerns to abdominal sepsis possibly pancreatitis. There is evidence of the leukocytosis and thrombocytopenia that are trending to improvement. Cultures are all in process at this point in time. He fortunately is doing well status post extubation and is being closely monitored. Dialysis is being directed per nephrology Current Visit: No Status: Acute Code(s): A41.9 - SEPSIS, UNSPECIFIED ORGANISM SNOMED Code(s): 58831418
[2019-04-10] MEDS: NOREPINEPHRINE 32 MG in SODIUM CHLORIDE 0.9% 218 ML IV SCH (04:17)
[2019-04-10] MEDS: HYDROcodone/APAP 10-325MG 1 EACH TAB PO SCH ×2 (04:17→06:47)
[2019-04-10 05:29] LABS: Anisocytosis Slight; Basophils % (A) 0 %; Eosinophils # (A) 0.1 k/uL (0-0.7); Eosinophils % (A) 2 %; HCT 22.8 % (39.0-53.0); HGB 7.7 gm/dL (13.0-17.5); Lymphocytes # (A) 0.3 k/uL (1.0-4.8); Lymphocytes % (A) 8 %; MCH 33.5 pg (25.0-35.0); MCHC 33.9 g/dL (31.0-37.0); MCV 98.7 fL (80.0-100.0); Macrocytosis Slight; Mean Platelet Volume 10.8; Monocytes # (A) 0.2 k/uL (0-1.0); Monocytes % (A) 6 %; Neutrophils # (A) 3.4 k/uL (1.3-7.7); Neutrophils % (A) 84 %; Poikilocytosis Slight; RBC 2.31 m/uL (4.30-5.90); RDW 17.6 % (11.5-15.5)
[2019-04-10 05:32] LABS: Platelet Count 34 k/uL (150-450)
[2019-04-10 05:53] LABS: Calcium 6.9 mg/dL (8.4-10.2)
--- NOTE | 2019-04-10 06:03 | XR ---
EXAMINATION TYPE: XR chest 1V portable DATE OF EXAM: 04/10/2019 HISTORY: fluid overload. REFERENCE: Previous study dated 04/09/2019. FINDINGS: There has been a previous ACDF. The patient has been intubated. The patient is NG tube is been removed. The right internal jugular ca theter is been removed. There is minimal atelectasis in the lung bases. The heart is mildly prominent. I suspect tiny, bilate ral effusions. IMPRESSION: 1. MINIMAL ATELECTASIS. 2. MILD CARDIOMEGALY. 3. I SUSPECT SMALL, BILATERAL EFFUSIONS.
[2019-04-10] MEDS: PANTOPRAZOLE 40 MG TABLET PO SCH (06:46)
[2019-04-10] MEDS: INSULIN ASPART (NovoLOG) 100 UNIT/ML VIAL SQ SCH ×4 (06:46→20:53)
[2019-04-10] MEDS: hydrALAZINE HCL 50 MG TAB PO SCH ×3 (06:46→20:53)
[2019-04-10 06:57] LABS: Glucose,Whole Blood 80 mg/dL (75-99)
--- NOTE | 2019-04-10 08:06 | P.PN ---
Subjective Progress Note Date: 04/10/19 [id number] male patient presented to ED with diminished level of consciousness. He apparently contacted his stating that he was not feeling well. He apparently skipped dialysis that was supposed to be done on Friday. He normally dialyzes MWF regarding his incisional disease. When the came to see him at around 6 PM yesterday the patient was quite sleepy and was having difficulty arousing him. He was quite somnolent. Based on all this, the patient was brought into the ED. The patient has an incisional disease. The patient was also being treated with a combination morphine for chronic pain. Unsure if the patient took any excessive medications or narcotics. He takes these medications for chronic back and neck pain. No previous history of suicidal ideation. The patient underwent was given 3 doses of Narcan without much improvement. In the ED, the patient was found to have a potassium level of 8.3 with hyperacute T waves in addition to a BUN of 85 and a creatinine of 8.7. Her blood sugar was 229. White cell count was at 16.2 with a hemoglobin was 12.9. The patient was given calcium gluconate. He also received D50 with insulin and albuterol for his hyperkalemia. Nephrology was Negative for immediate dialysis. Workup for the altered mentation included a computed tomography scan of the brain and a CT angiogram that did not show any acute abnormalities. His EKG was sinus rhythm with a first-degree AV block. His troponin was at 0.7 and this was felt to be related to a type II cardiac injury in a patient with known history of incisional disease. The chest x-ray showed fluid overload/pulmonary edema. His lactic acid level was elevated at 3.1. The patient got transferred to the intensive care unit. While having dialysis, he was having difficulty in breathing and he was quite obtunded. Initially was placed on the BiPAP and subsequently he was intubated and placed on a mechanical ventilator. Post intubation he became hypotensive. A triple lumen catheter was inserted. The patient was started on norepinephrine infusion This morning, that his been completed without ultrafiltration. Potassium level has normalized and is down to 4.5. The patient's calcium level is at 6.3 and the patient is receiving another dose of calcium gluconate. He is sedated with propofol which is running at 40 g. He is on a mechanical ventilator on assist control mode with tidal volume of 500 with a rate of 18 and FiO2 of 40% with a PEEP of 5. The blood gases showed a pH of 7.29 with a pCO2 of 52 and pO2 167 and this was done on FiO2 of 50%. The patient is arousable to painful stimulation. Otherwise the is was sedated for now. Urine output is minimal. UA is negative. He is afebrile. The white cell count is at 18.3. Chest x-ray from today shows no acute abnormality. ET tube was high in the trachea and was rushed down further. No evidence of any consolidation or airspace disease. On 04/09/2019 I'm seeing this patient for a follow-up. The patient has still intubated on a mechanical ventilator. This morning he is still sedated with propofol and is calm and comfortable. He remains on assist control mode of ventilation with a tidal volume of 500 and FiO2 of 40% with a PEEP of 5 the blood gas showed a pH of 7.49 with a pCO2 of 36 and pO2 of 90. The patient's chest x-ray shows no acute abnormalities. ET tube is in a good location. No signs of any pneumonia or failure. Noted the patient was having episodes of hypotension. He was given IV fluids. He was also given pressors and currently the norepinephrine infusion is running at 5 mcg/m. The patient's white cell count is up to 27. Blood cultures negative. The patient on empiric antibiotic coverage with IV meropenem per IDs recommendation. This which was done as the patient was noted to have some underlying thrombocytopenia. Nephrology is on the case. The patient has already obtained 2 sessions of hemodialysis. No plans for hemodialysis today. No signs of any fluid overload. No major electrode imbalance and the patient's acute hyperkalemia is completely recov ered. Cultures are negative thus far. Note that the patient was also found to have elevation in troponin which peaked at 3.24 and currently is down to 2.1. A repeat echo showed a preserved LV function with an ejection fraction of 665%. No other significant valvular abnormalities. The patient was seen by Dr. Jones. The aspirin and heparin were discontinued due to underlying thrombocytopenia. A cardiac catheterization is being considered a later stage once the patient's condition is further stabilized. On 04/10/2019 I'm seeing this patient for a follow-up. The patient is extubated for noncardiac is on room air with a pulse ox of 92%. No respiratory difficulties. No cough or sputum production. No chest that is so wheezing. He is going to undergo another dialysis today. The patient has no fever or chills. Platelet counts are low and I can't find out that this is a chronic thro mbocytopenia. Subcu heparin has been discontinued. He is on IV Merrem as an empiric antibiotic coverage. Nevertheless, all the cultures are negative for now. The hyperkalemia is improved. He is on no pressors for now. Troponins were elevated suggestive of a acute myocardial injury. Nevertheless, no chest pain. Echo was within normal limits. Objective - Vital Signs Vital signs: Vital Signs Temp 97.4 F L 04/10/19 04:00 Pulse 91 04/10/19 07:00 Resp 16 04/10/19 07:00 BP 188/69 04/10/19 07:00 Pulse Ox 91 L 04/10/19 07:00 Intake & Output 04/09/19 04/10/19 04/10/19 18:59 06:59 18:59 Intake Total 656.002 510 Output Total 112 Balance 544.002 510 Weight 95.3 kg Intake: IV 150 180 Meropenem 1 gm In Sodium 100 Chloride 0.9% 100 ml @ 200 mls/hr IVPB Q12HR NATHAN Rx#:[id number] Sodium Chloride 0.9% 1, 150 80 000 ml @ 50 mls/hr IV . Q20H NATHAN Rx#:[id number] Intake, IV Titration 306.002 Amount Meropenem 2 gm In Sodium 100 Chloride 0.9% 100 ml @ 200 mls/hr IVPB Q8HR NATHAN Rx#:[id number] Norepinephrine 32 mg In 35.891 Sodium Chloride 0.9% 218 ml @ 0.12 MCG/KG/MIN 5. 358 mls/hr IV .Q24H NATHAN Rx#:[id number] Propofol 1,000 mg In 170.111 Empty Bag 1 bag @ Titrate IV .Q0M NATHAN Rx#: [id number] Oral 50 330 Tube Feeding 120 Other 30 Output: Urine 112 Other: Voiding Method Indwelling Catheter Bedside Commode # Voids 1 # Bowel Movements 1 1 ABP, PAP, CO, CI - Last Documented Arterial Blood Pressure 122/42 - Exam GEN appears comfortable comfortable extubated on room air Head exam was generally normal. There was no scleral icterus or corneal arcus. Mucous membranes were moist. Neck was supple and without jugular venous distension, thyromegaly, or carotid bruits. Carotids were easily palpable bilaterally. There was no adenopathy. The patient is a right IJ triple lumen catheter in place. Orogastric and orotracheal tube are both in place. Lungs were clear to auscultation and percussion, and with normal diaphragmatic excursion. No wheezes or rales were noted. Cardiac exam revealed the PMI to be normally situated and sized. The rhythm was regular and no extrasystoles were noted during several minutes of auscultation. The first and second heart sounds were normal and physiologic splitting of the second heart sound was noted. There were no murmurs, rubs, clicks, or gallops. Abdominal exam revealed normal bowel sounds. The abdomen was soft, non-tender, and without masses, organomegaly, or appreciable enlargement of the abdominal aorta. Extremities revealed an AV graft in the left upper extremity. The patient has an a line in the right radial artery. No cyanosis no clubbing. Pulses are diminished at the present in the lower extremity is bilaterally. External wheezes are warm. There is no cyanosis or clubbing at this point in time. Neurologically the patient is awake and alert and conscious without any focal neurological deficits. The patient is withdrawing to deep painful stimulation no 4 extremities. P - Labs CBC & Chem 7: 04/10/19 05:20 04/10/19 05:20 Labs: Abnormal Lab Results - Last 24 Hours (Table) 04/09/19 04/09/19 04/09/19 Range/Units 11:37 11:41 22:40 RBC (4.30-5.90) m/uL Hgb (13.0-17.5) gm/dL Hct (39.0-53.0) % RDW (11.5-15.5) % Plt Count (150-450) k/uL Lymphocytes # (1.0-4.8) k/uL ABG pO2 169 H (83-108) mmHg ABG HCO3 26 H (21-25) mmol/L ABG Total CO2 27 H (19-24) mmol/L ABG O2 Saturation 100.0 H (94-97) % BUN (9-20) mg/dL Creatinine (0.66-1.25) mg/dL POC Glucose (mg/dL) 175 H 121 H (75-99) mg/dL Calcium (8.4-10.2) mg/dL 04/10/19 04/10/19 Range/Units 05:20 05:20 RBC 2.31 L (4.30-5.90) m/uL Hgb 7.7 L (13.0-17.5) gm/dL Hct 22.8 L (39.0-53.0) % RDW 17.6 H (11.5-15.5) % Plt Count 34 L (150-450) k/uL Lymphocytes # 0.3 L (1.0-4.8) k/uL ABG pO2 (83-108) mmHg ABG HCO3 (21-25) mmol/L ABG Total CO2 (19-24) mmol/L ABG O2 Saturation (94-97) % BUN 44 H (9-20) mg/dL Creatinine 5.37 H (0.66-1.25) mg/dL POC Glucose (mg/dL) (75-99) mg/dL Calcium 6.9 L (8.4-10.2) mg/dL Microbiology - Last 24 Hours (Table) 04/07/19 19:28 Blood Culture - Preliminary Blood No Growth after 48 hours 04/08/19 02:57 Urine Culture - Final Urine,Catheterized Assessment and Plan Plan: 1 altered mental status, probably multifactorial as the patient could have been encephalopathic secondary to uremia/missed dialysis and in same time there is a concern that the patient has taken excessive amount of narcotic medications as the patient is on a combination of [place] and MS Contin on outpatient basis. In any rate, the patient had a negative computed tomography scan of the brain and CT angios the brain and he did not respond to Narcan. During the process, the patient had to be intubated and placed on a mechanical ventilator. The patient also underwent a session of hemodialysis ultrafiltration yesterday. On today's evaluation of 04/09/2019, the patient's postdialysis, the patient not take any form of narcotic medications. He is on sedation with propofol and the patient's mental status will be checked while being given a sedation holiday. The patient is or the undergone 2 sessions of hemodialysis. On today's evaluation of 04/10/2019, the patient extubated in the mental status back to normal. No altered mentation per no focal neurological deficit. The patient has recovered. This was likely encephalopathy due to drugs and uremia. 2 acute hypoxic respiratory failure with a component of fluid overload, improved and the patient has been extubated for now on room air oxygen 3 hypotension currently normotensive and the hypotension is recovered.. Meanw hile, the patient is maintaining a decent blood pressure and all of the cultures are negative. He was found to have a acute non-STEMI yet the echo cardiac grams with a preserved LV function with an ejection fraction of 60%. 4 End stage renal disease on hemodialysis 3 times a week MWF 5 coronary artery disease with limited troponin leak, type II cardiac injury versus an acute non-STEMI. Cardiology evaluated the patient and patient will be needing a catheterization at a later stage 6 CHF with systolic heart failure with an ejection fraction of 30-35% and segmental wall motion abnormalities based on previous echocardiogram. Repeat echo cardiac on that was done during this current admission showed a preserved LV function. Ejection fraction is up to 60%. 7 leukocytosis, improved 8 chronic thrombocytopenia, with interval drop in late is contemplated to medications including heparin or Zosyn. Appropriate adjustments were done. Heparin was discontinued and the patient was switched to meropenem. 9 acute hyperkalemia treated the patient's potassium level is down to 4.5 and he was treated per protocol regarding hyperkalemia and he has undergone a session of hemodialysis 10 COPD 11 diabetes mellitus type 2 13 peripheral neuropathy 14 chronic alcoholism none for now 15 history of chronic pancreatitis 16 previous history of CVA with some right-sided weakness 17 previous history of ARDS requiring intubation and prolonged mechanical ventilation requiring tracheostomy tube insertion 18 chronic thrombocytopenia related to above 19 splenomegaly 20 previous history of esophageal varices without previous bleeding 21 previous history of narcotic/opiate overdose Plan Overall condition is stable. The patient is extubated. He'll undergo another dialysis session today. No pressors. Continue Merrem. Monitor cultures. Monitor platelet count. White cell count is normalized. All of the cultures are negative. Blood sugars under good control. Advance diet. Advance activity. We'll follow.
[2019-04-10] MEDS: NOREPINEPHRINE 4 MG in SODIUM CHLORIDE 0.9% 250 ML IV SCH (08:24)
--- NOTE | 2019-04-10 08:51 | P.PN ---
Subjective Patient is seen in follow for end-stage renal disease. He is maintained on hemodialysis on a Friday schedule. Patient did not get dialysis yesterday says getting treatment today. He is awake. Denies chest pain or shortness of breath. Blood pressures on the higher side. Vital signs are stable. General: The patient appeared well nourished and normally developed. HEENT: Head exam is unremarkable. Neck is without jugular venous distension. LUNGS: Lungs are clear to auscultation and percussion. Breath sounds decreased. HEART: Rate and Rhythm are regular. First and second heart sounds normal. No murmurs, rubs or gallops. ABDOMEN: Abdominal exam reveals normal bowel sounds. Non-tender and non- distended. No evidence of peritonitis. EXTREMITITES: 1+ edema. Objective - Vital Signs Vital signs: Vital Signs Temp 97.4 F L 04/10/19 04:00 Pulse 91 04/10/19 07:00 Resp 16 04/10/19 07:00 BP 188/69 04/10/19 07:00 Pulse Ox 91 L 04/10/19 07:00 Intake & Output 04/09/19 04/10/19 04/10/19 18:59 06:59 18:59 Intake Total 656.002 510 Output Total 112 Balance 544.002 510 Weight 95.3 kg Intake: IV 150 180 Meropenem 1 gm In Sodium 100 Chloride 0.9% 100 ml @ 200 mls/hr IVPB Q12HR [facility] Rx#:[id number] Sodium Chloride 0.9% 1, 150 80 000 ml @ 50 mls/hr IV . Q20H [facility] Rx#:[id number] Intake, IV Titration 306.002 Amount Meropenem 2 gm In Sodium 100 Chloride 0.9% 100 ml @ 200 mls/hr IVPB Q8HR NATH[facility] Rx#:[id number] Norepinephrine 32 mg In 35.891 Sodium Chloride 0.9% 218 ml @ 0.12 MCG/KG/MIN 5. 358 mls/hr IV .Q24H NATHAN Rx#:[id number] Propofol 1,000 mg In 170.111 Empty Bag 1 bag @ Titrate IV .Q0M NATHAN Rx#: [id number] Oral 50 330 Tube Feeding 120 Other 30 Output: Urine 112 Other: Voiding Method Indwelling Catheter Bedside Commode # Voids 1 # Bowel Movements 1 1 ABP, PAP, CO, CI - Last Documented Arterial Blood Pressure 122/42 - Labs CBC & Chem 7: 04/10/19 05:20 04/10/19 05:20 Labs: Abnormal Lab Results - Last 24 Hours (Table) 04/09/19 04/09/19 04/09/19 Range/Units 11:37 11:41 22:40 RBC (4.30-5.90) m/uL Hgb (13.0-17.5) gm/dL Hct (39.0-53.0) % RDW (11.5-15.5) % Plt Count (150-450) k/uL Lymphocytes # (1.0-4.8) k/uL ABG pO2 169 H (83-108) mmHg ABG HCO3 26 H (21-25) mmol/L ABG Total CO2 27 H (19-24) mmol/L ABG O2 Saturation 100.0 H (94-97) % BUN (9-20) mg/dL Creatinine (0.66-1.25) mg/dL POC Glucose (mg/dL) 175 H 121 H (75-99) mg/dL Calcium (8.4-10.2) mg/dL 04/10/19 04/10/19 Range/Units 05:20 05:20 RBC 2.31 L (4.30-5.90) m/uL Hgb 7.7 L (13.0-17.5) gm/dL Hct 22.8 L (39.0-53.0) % RDW 17.6 H (11.5-15.5) % Plt Count 34 L (150-450) k/uL Lymphocytes # 0.3 L (1.0-4.8) k/uL ABG pO2 (83-108) mmHg ABG HCO3 (21-25) mmol/L ABG Total CO2 (19-24) mmol/L ABG O2 Saturation (94-97) % BUN 44 H (9-20) mg/dL Creatinine 5.37 H (0.66-1.25) mg/dL POC Glucose (mg/dL) (75-99) mg/dL Calcium 6.9 L (8.4-10.2) mg/dL Microbiology - Last 24 Hours (Table) 04/07/19 19:28 Blood Culture - Preliminary Blood No Growth after 48 hours 04/08/19 02:57 Urine Culture - Final Urine,Catheterized Assessment and Plan Plan: Assessment: 1. End-stage renal disease maintained on hemodialysis on a Friday schedule. 2. Severe hyperkalemia on admission improved postdialysis. 3. Encephalopathy most likely related to medications, including MS Contin, [place]. 4. Chronic thrombocytopenia associated with splenomegaly. No active bleeding. 5. Insulin-dependent diabetes mellitus. 6. Hypertension with chronic kidney disease. 7. Mild volume overload. 8. Chronic kidney disease mineral bone disease. Plan: Currently seen while undergoing hemodialysis. Next treatment on Friday. Back off on pain medications. Avoid MS Contin. Resume PhosLo. Check phosphorus level.
[2019-04-10] MEDS ORDERED: hydrALAZINE HCL 50 MG TAB PO STA (10:25)
[2019-04-10] MEDS: Lubiprostone [Amitiza] 24 MCG PO SCH ×2 (10:31→20:53)
[2019-04-10] MEDS: GABAPENTIN 100 MG CAP PO SCH ×3 (10:32→20:52)
[2019-04-10] MEDS: MORPHINE SULFATE ER 30 MG TABLET PO SCH (10:32)
--- NOTE | 2019-04-10 11:12 | P.PN ---
Subjective Progress Note Date: 04/10/19 Principal diagnosis: Altered mental status Patient continued to be hemodynamically stable became more awake this morning up until he take his pain medication and patient currently seems to be restless trying to get out of bed at the time dialysis is an process. No other events reported by nursing staff Objective - Vital Signs Vital signs: Vital Signs Temp 98.7 F 04/10/19 08:00 Pulse 93 04/10/19 08:00 Resp 17 04/10/19 08:00 BP 147/53 04/10/19 08:00 Pulse Ox 90 L 04/10/19 08:00 Intake & Output 04/09/19 04/10/19 04/10/19 18:59 06:59 18:59 Intake Total 656.002 510 10 Output Total 112 Balance 544.002 510 10 Weight 95.3 kg Intake: IV 150 180 10 Meropenem 1 gm In Sodium 100 Chloride 0.9% 100 ml @ 200 mls/hr IVPB Q12HR [facility] Rx#:[id number] Sodium Chloride 0.9% 1, 150 80 10 000 ml @ 50 mls/hr IV . Q20H [facility] Rx#:[id number] Intake, IV Titration 306.002 Amount Meropenem 2 gm In Sodium 100 Chloride 0.9% 100 ml @ 200 mls/hr IVPB Q8HR N[facility] Rx#:[id number] Norepinephrine 32 mg In 35.891 Sodium Chloride 0.9% 218 ml @ 0.12 MCG/KG/MIN 5. 358 mls/hr IV .Q24H [facility] Rx#:[id number] Propofol 1,000 mg In 170.111 Empty Bag 1 bag @ Titrate IV .Q0M NATHAN Rx#: [id number] Oral 50 330 Tube Feeding 120 Other 30 Output: Urine 112 Other: Voiding Method Indwelling Catheter Bedside Commode Bedside Commode # Voids 1 # Bowel Movements 1 1 ABP, PAP, CO, CI - Last Documented Arterial Blood Pressure 122/42 - Exam Gen.: in stated age, no acute distress, alert and oriented times one to 2 on the Heart: Normal S1-S2 Lungs: Clear to auscultation bilaterally Abdomen: Soft, no tenderness, positive bowel sounds in all 4 quadrant no guardin g or rebound Skin: No new rash Psych: Alert and oriented 3 Neuro: No focal deficit - Labs CBC & Chem 7: 04/10/19 05:20 04/10/19 05:20 Labs: Abnormal Lab Results - Last 24 Hours (Table) 04/09/19 04/09/19 04/09/19 Range/Units 11:37 11:41 22:40 RBC (4.30-5.90) m/uL Hgb (13.0-17.5) gm/dL Hct (39.0-53.0) % RDW (11.5-15.5) % Plt Count (150-450) k/uL Lymphocytes # (1.0-4.8) k/uL ABG pO2 169 H (83-108) mmHg ABG HCO3 26 H (21-25) mmol/L ABG Total CO2 27 H (19-24) mmol/L ABG O2 Saturation 100.0 H (94-97) % BUN (9-20) mg/dL Creatinine (0.66-1.25) mg/dL POC Glucose (mg/dL) 175 H 121 H (75-99) mg/dL Calcium (8.4-10.2) mg/dL Phosphorus (2.5-4.5) mg/dL 04/10/19 04/10/19 04/10/19 Range/Units 05:20 05:20 05:20 RBC 2.31 L (4.30-5.90) m/uL Hgb 7.7 L (13.0-17.5) gm/dL Hct 22.8 L (39.0-53.0) % RDW 17.6 H (11.5-15.5) % Plt Count 34 L (150-450) k/uL Lymphocytes # 0.3 L (1.0-4.8) k/uL ABG pO2 (83-108) mmHg ABG HCO3 (21-25) mmol/L ABG Total CO2 (19-24) mmol/L ABG O2 Saturation (94-97) % BUN 44 H (9-20) mg/dL Creatinine 5.37 H (0.66-1.25) mg/dL POC Glucose (mg/dL) (75-99) mg/dL Calcium 6.9 L (8.4-10.2) mg/dL Phosphorus 6.0 H (2.5-4.5) mg/dL Microbiology - Last 24 Hours (Table) 04/07/19 19:28 Blood Culture - Preliminary Blood No Growth after 48 hours 04/08/19 02:57 Urine Culture - Final Urine,Catheterized Assessment and Plan Assessment: 1. Acute encephalopathy likely related to polypharmacy and pain medication, axis of dose. 2. End-stage renal disease on hemodialysis. 3. Severe thrombocytopenia. 4. Chronic anemia. 5. Electrolyte imbalance. 6. Debility and deconditioning. 7. Anxiety and depression. 8. Hypertension. 9. Hyperlipidemia. Plan discussed with the critical care at the bedside where we would like to continue with close monitoring vital signs, ABG reviewed and stable, patient is still lethargic and confused and likely related to schedule based pain medication that I discussed with the nursing staff to change it to as needed only and we will consider decreasing the dose on the long run as I discussed with nephrology patient is dialysis patient was receiving excessive amount of pain medication due to his chronic pain syndrome but we would like to avoid further confusion or encephalopathy due to pain medication have patient's been followed by pain management outpatient. Prognosis remained guarded at this point
[2019-04-10] MEDS: LACTULOSE 20 GM/30 ML CUP PO SCH ×2 (11:31→12:37)
[2019-04-10] MEDS: CITALOPRAM HYDROBROMIDE 10 MG TAB PO SCH (11:31)
[2019-04-10] MEDS: hydrALAZINE HCL 20 MG/ML 1 ML VIAL IVP PRN (11:31)
[2019-04-10] MEDS: ARIPiprazole 5 MG TAB PO SCH (11:31)
[2019-04-10] MEDS: MEROPENEM 1 GM in SODIUM CHLORIDE 0.9% 100 ML IVPB SCH ×2 (11:32→20:49)
[2019-04-10] MEDS: HYDROcodone/APAP 10-325MG 1 EACH TAB PO PRN ×2 (11:45→22:03)
[2019-04-10] MEDS ORDERED: MORPHINE SULFATE ER 30 MG TABLET PO PRN (11:48)
[2019-04-10] MEDS: CALCIUM ACETATE 667 MG TAB PO SCH ×2 (12:37→16:58)
[2019-04-10 12:47] LABS: Glucose,Whole Blood 95 mg/dL (75-99)
[2019-04-10 17:10] LABS: Glucose,Whole Blood 116 mg/dL (75-99)
[2019-04-10 20:49] LABS: Glucose,Whole Blood 120 mg/dL (75-99)
[2019-04-10] MEDS: INSULIN DETEMIR (LEVEMIR) 100 UNIT/ML SYR SQ SCH (20:52)
[2019-04-10] MEDS: ATORVASTATIN 80 MG TAB PO SCH (20:52)
[2019-04-11] MEDS: NOREPINEPHRINE 4 MG in SODIUM CHLORIDE 0.9% 250 ML IV SCH (02:13)
[2019-04-11 05:01] LABS: Anisocytosis Slight; Basophils % (A) 0 %; Eosinophils # (A) 0.1 k/uL (0-0.7); Eosinophils % (A) 4 %; HCT 20.1 % (39.0-53.0); Lymphocytes # (A) 0.6 k/uL (1.0-4.8); Lymphocytes % (A) 24 %; MCHC 34.5 g/dL (31.0-37.0); MCV 98.5 fL (80.0-100.0); Macrocytosis Slight; Mean Platelet Volume 9.4; Monocytes # (A) 0.2 k/uL (0-1.0); Monocytes % (A) 7 %; Neutrophils # (A) 1.5 k/uL (1.3-7.7); Neutrophils % (A) 61 %; Poikilocytosis Slight; RBC 2.04 m/uL (4.30-5.90); RDW 17.4 % (11.5-15.5); WBC 2.5 k/uL (3.8-10.6)
[2019-04-11 05:06] LABS: Platelet Count 41 k/uL (150-450)
[2019-04-11 05:08] LABS: HGB 6.9 gm/dL (13.0-17.5)
[2019-04-11 05:25] LABS: Calcium 7.3 mg/dL (8.4-10.2); Potassium 3.9 mmol/L (3.5-5.1)
[2019-04-11] MEDS: NOREPINEPHRINE 32 MG in SODIUM CHLORIDE 0.9% 218 ML IV SCH (06:34)
[2019-04-11] MEDS: CALCIUM ACETATE 667 MG TAB PO SCH ×3 (06:52→17:12)
[2019-04-11] MEDS: INSULIN ASPART (NovoLOG) 100 UNIT/ML VIAL SQ SCH ×4 (06:53→20:56)
[2019-04-11] MEDS: PANTOPRAZOLE 40 MG TABLET PO SCH (06:53)
[2019-04-11 07:02] LABS: Glucose,Whole Blood 88 mg/dL (75-99)
[2019-04-11] MEDS: Lubiprostone [Amitiza] 24 MCG PO SCH ×2 (08:50→19:47)
[2019-04-11] MEDS: CITALOPRAM HYDROBROMIDE 10 MG TAB PO SCH (09:00)
[2019-04-11] MEDS: ARIPiprazole 5 MG TAB PO SCH (09:00)
[2019-04-11] MEDS: MEROPENEM 1 GM in SODIUM CHLORIDE 0.9% 100 ML IVPB SCH ×2 (09:00→20:43)
[2019-04-11] MEDS: hydrALAZINE HCL 50 MG TAB PO SCH ×3 (09:00→20:44)
[2019-04-11] MEDS: GABAPENTIN 100 MG CAP PO SCH ×3 (09:00→20:44)
[2019-04-11] MEDS: LACTULOSE 20 GM/30 ML CUP PO SCH (09:01)
--- NOTE | 2019-04-11 09:23 | P.PN ---
Subjective Patient is seen in follow for end-stage renal disease. He is maintained on hemodialysis on a Friday schedule. Currently sitting up in chair. Feels weak. Hemoglobin is 6.9 today. No active bleeding. Vital signs are stable. General: The patient appeared well nourished and normally developed. HEENT: Head exam is unremarkable. Neck is without jugular venous distension. LUNGS: Lungs are clear to auscultation and percussion. Breath sounds decreased. HEART: Rate and Rhythm are regular. First and second heart sounds normal. No murmurs, rubs or gallops. ABDOMEN: Abdominal exam reveals normal bowel sounds. Non-tender and non- distended. No evidence of peritonitis. EXTREMITITES: 1+ edema. Objective - Vital Signs Vital signs: Vital Signs Temp 98.4 F 04/11/19 08:00 Pulse 76 04/11/19 09:00 Resp 11 L 04/11/19 09:00 BP 134/60 04/11/19 09:00 Pulse Ox 96 04/11/19 09:00 Intake & Output 04/10/19 04/11/19 04/11/19 18:59 06:59 18:59 Intake Total 280 200 286 Output Total 1520 0 Balance -1240 200 286 Weight 97.6 kg Intake: IV 160 200 110 .9 bolus 50 100 10 Meropenem 1 gm In Sodium 100 100 100 Chloride 0.9% 100 ml @ 200 mls/hr IVPB Q12HR [facility] Rx#:[id number] Sodium Chloride 0.9% 1, 10 000 ml @ 50 mls/hr IV . Q20H [facility] Rx#:[id number] Oral 120 176 Output: Urine 20 0 Hemodialysis 1500 Other: Voiding Method Bedside Commode Bedside Commode ABP, PAP, CO, CI - Last Documented Arterial Blood Pressure 122/42 - Labs CBC & Chem 7: 04/11/19 04:21 04/11/19 04:21 Labs: Abnormal Lab Results - Last 24 Hours (Table) 04/10/19 04/10/19 04/10/19 Range/Units 05:20 16:58 20:38 WBC (3.8-10.6) k/uL RBC (4.30-5.90) m/uL Hgb (13.0-17.5) gm/dL Hct (39.0-53.0) % RDW (11.5-15.5) % Plt Count (150-450) k/uL Lymphocytes # (1.0-4.8) k/uL Carbon Dioxide (22-30) mmol/L BUN (9-20) mg/dL Creatinine (0.66-1.25) mg/dL Glucose (74-99) mg/dL POC Glucose (mg/dL) 116 H 120 H (75-99) mg/dL Calcium (8.4-10.2) mg/dL Phosphorus 6.0 H (2.5-4.5) mg/dL 04/11/19 04/11/19 Range/Units 04:21 04:21 WBC 2.5 L (3.8-10.6) k/uL RBC 2.04 L (4.30-5.90) m/uL Hgb 6.9 L* (13.0-17.5) gm/dL Hct 20.1 L (39.0-53.0) % RDW 17.4 H (11.5-15.5) % Plt Count 41 L (150-450) k/uL Lymphocytes # 0.6 L (1.0-4.8) k/uL Carbon Dioxide 32 H (22-30) mmol/L BUN 33 H (9-20) mg/dL Creatinine 4.40 H (0.66-1.25) mg/dL Glucose 69 L (74-99) mg/dL POC Glucose (mg/dL) (75-99) mg/dL Calcium 7.3 L (8.4-10.2) mg/dL Phosphorus (2.5-4.5) mg/dL Microbiology - Last 24 Hours (Table) 04/07/19 19:28 Blood Culture - Preliminary Blood No Growth after 72 hours 04/08/19 01:30 Gram Stain - Final Sputum Sputum Culture - Final Assessment and Plan Plan: Assessment: 1. End-stage renal disease maintained on hemodialysis on a Friday schedule. 2. Severe hyperkalemia on admission improved postdialysis. 3. Encephalopathy most likely related to medications, including MS Contin, [place]. 4. Chronic thrombocytopenia associated with splenomegaly. No active bleeding. 5. Insulin-dependent diabetes mellitus. 6. Hypertension with chronic kidney disease. Stable. 7. Mild volume overload. 8. Chronic kidney disease mineral bone disease maintained on PhosLo. 9. Anemia of chronic kidney disease. No active bleeding. Hemoglobin 6.9 today. Plan: Hemodialysis tomorrow. Transfuse 1 unit of blood today. Add Aranesp. Avoid excess narcotics. MS Contin changed to as needed only.
[2019-04-11] MEDS ORDERED: DARBEPOETIN ALFA 40 MCG/0.4 ML SYRINGE SQ SCH (10:00)
--- NOTE | 2019-04-11 11:37 | P.PN ---
Subjective Progress Note Date: 04/11/19 [id number] male patient presented to ED with diminished level of consciousness. He apparently contacted his stating that he was not feeling well. He apparently skipped dialysis that was supposed to be done on Friday. He normally dialyzes MWF regarding his incisional disease. When the came to see him at around 6 PM yesterday the patient was quite sleepy and was having difficulty arousing him. He was quite somnolent. Based on all this, the patient was brought into the ED. The patient has an incisional disease. The patient was also being treated with a combination morphine for chronic pain. Unsure if the patient took any excessive medications or narcotics. He takes these medications for chronic back and neck pain. No previous history of suicidal ideation. The patient underwent was given 3 doses of Narcan without much improvement. In the ED, the patient was found to have a potassium level of 8.3 with hyperacute T waves in addition to a BUN of 85 and a creatinine of 8.7. Her blood sugar was 229. White cell count was at 16.2 with a hemoglobin was 12.9. The patient was given calcium gluconate. He also received D50 with insulin and albuterol for his hyperkalemia. Nephrology was Negative for immediate dialysis. Workup for the altered mentation included a computed tomography scan of the brain and a CT angiogram that did not show any acute abnormalities. His EKG was sinus rhythm with a first-degree AV block. His troponin was at 0.7 and this was felt to be related to a type II cardiac injury in a patient with known history of incisional disease. The chest x-ray showed fluid overload/pulmonary edema. His lactic acid level was elevated at 3.1. The patient got transferred to the intensive care unit. While having dialysis, he was having difficulty in breathing and he was quite obtunded. Initially was placed on the BiPAP and subsequently he was intubated and placed on a mechanical ventilator. Post intubation he became hypotensive. A triple lumen catheter was inserted. The patient was started on norepinephrine infusion This morning, that his been completed without ultrafiltration. Potassium level has normalized and is down to 4.5. The patient's calcium level is at 6.3 and the patient is receiving another dose of calcium gluconate. He is sedated with propofol which is running at 40 g. He is on a mechanical ventilator on assist control mode with tidal volume of 500 with a rate of 18 and FiO2 of 40% with a PEEP of 5. The blood gases showed a pH of 7.29 with a pCO2 of 52 and pO2 167 and this was done on FiO2 of 50%. The patient is arousable to painful stimulation. Otherwise the is was sedated for now. Urine output is minimal. UA is negative. He is afebrile. The white cell count is at 18.3. Chest x-ray from today shows no acute abnormality. ET tube was high in the trachea and was rushed down further. No evidence of any consolidation or airspace disease. On 04/09/2019 I'm seeing this patient for a follow-up. The patient has still intubated on a mechanical ventilator. This morning he is still sedated with propofol and is calm and comfortable. He remains on assist control mode of ventilation with a tidal volume of 500 and FiO2 of 40% with a PEEP of 5 the blood gas showed a pH of 7.49 with a pCO2 of 36 and pO2 of 90. The patient's chest x-ray shows no acute abnormalities. ET tube is in a good location. No signs of any pneumonia or failure. Noted the patient was having episodes of hypotension. He was given IV fluids. He was also given pressors and currently the norepinephrine infusion is running at 5 mcg/m. The patient's white cell count is up to 27. Blood cultures negative. The patient on empiric antibiotic coverage with IV meropenem per IDs recommendation. This which was done as the patient was noted to have some underlying thrombocytopenia. Nephrology is on the case. The patient has already obtained 2 sessions of hemodialysis. No plans for hemodialysis today. No signs of any fluid overload. No major electrode imbalance and the patient's acute hyperkalemia is completely recov ered. Cultures are negative thus far. Note that the patient was also found to have elevation in troponin which peaked at 3.24 and currently is down to 2.1. A repeat echo showed a preserved LV function with an ejection fraction of 665%. No other significant valvular abnormalities. The patient was seen by Dr. Jones. The aspirin and heparin were discontinued due to underlying thrombocytopenia. A cardiac catheterization is being considered a later stage once the patient's condition is further stabilized. On 04/10/2019 I'm seeing this patient for a follow-up. The patient is extubated for noncardiac is on room air with a pulse ox of 92%. No respiratory difficulties. No cough or sputum production. No chest that is so wheezing. He is going to undergo another dialysis today. The patient has no fever or chills. Platelet counts are low and I can't find out that this is a chronic thro mbocytopenia. Subcu heparin has been discontinued. He is on IV Merrem as an empiric antibiotic coverage. Nevertheless, all the cultures are negative for now. The hyperkalemia is improved. He is on no pressors for now. Troponins were elevated suggestive of a acute myocardial injury. Nevertheless, no chest pain. Echo was within normal limits. On 04/11/2019 I'm seeing the patient again. He is in the intensive care unit. Underwent another session of hemodialysis yesterday. Doing well. No complaints. Extubated. Sitting up on a chair. Hemoglobin is down to 6.9. No evidence of any acute bleed. Iron studies will be checked. Hematology oncology consultations been obtained. He has chronic issues with anemia. He also has a component of leukopenia and thrombocytopenia. Further workup this to follow. Remains on IV Merrem. Off pressors. No nausea. No vomiting. No chest pain. No altered mentation. Will be receiving a unit of packed RBC. Objective - Vital Signs Vital signs: Vital Signs Temp 97.5 F L 04/11/19 11:15 Pulse 80 04/11/19 11:15 Resp 12 04/11/19 11:15 BP 157/61 04/11/19 11:15 Pulse Ox 96 04/11/19 11:15 Intake & Output 04/10/19 04/11/19 04/11/19 18:59 06:59 18:59 Intake Total 280 200 306 Output Total 1520 0 750 Balance -1240 200 -444 Weight 97.6 kg Intake: IV 160 200 130 .9 bolus 50 100 30 Meropenem 1 gm In Sodium 100 100 100 Chloride 0.9% 100 ml @ 200 mls/hr IVPB Q12HR [facility] Rx#:[id number] Sodium Chloride 0.9% 1, 10 000 ml @ 50 mls/hr IV . Q20H [facility] Rx#:[id number] Oral 120 176 Blood Product 0 Rc As-1 Unit 0 [id number] Output: Urine 20 0 750 Hemodialysis 1500 Other: Voiding Method Bedside Commode Bedside Commode Bedside Commode ABP, PAP, CO, CI - Last Documented Arterial Blood Pressure 122/42 - Exam GEN appears comfortable comfortable extubated on room air Head exam was generally normal. There was no scleral icterus or corneal arcus. Mucous membranes were moist. Neck was supple and without jugular venous distension, thyromegaly, or carotid bruits. Carotids were easily palpable bilaterally. There was no adenopathy. The patient is a right IJ triple lumen catheter in place. Orogastric and orotrach eal tube are both in place. Lungs were clear to auscultation and percussion, and with normal diaphragmatic excursion. No wheezes or rales were noted. Cardiac exam revealed the PMI to be normally situated and sized. The rhythm was regular and no extrasystoles were noted during several minutes of auscultation. The first and second heart sounds were normal and physiologic splitting of the second heart sound was noted. There were no murmurs, rubs, clicks, or gallops. Abdominal exam revealed normal bowel sounds. The abdomen was soft, non-tender, and without masses, organomegaly, or appreciable enlargement of the abdominal aorta. Extremities revealed an AV graft in the left upper extremity. The patient has an a line in the right radial artery. No cyanosis no clubbing. Pulses are diminished at the present in the lower extremity is bilaterally. External wheezes are warm. There is no cyanosis or clubbing at this point in time. Neurologically the patient is awake and alert and conscious without any focal neurological deficits. The patient is withdrawing to deep painful stimulation no 4 extremities. P - Labs CBC & Chem 7: 04/11/19 04:21 04/11/19 04:21 Labs: Abnormal Lab Results - Last 24 Hours (Table) 04/10/19 04/10/19 04/11/19 Range/Units 16:58 20:38 04:21 WBC 2.5 L (3.8-10.6) k/uL RBC 2.04 L (4.30-5.90) m/uL Hgb 6.9 L* (13.0-17.5) gm/dL Hct 20.1 L (39.0-53.0) % RDW 17.4 H (11.5-15.5) % Plt Count 41 L (150-450) k/uL Lymphocytes # 0.6 L (1.0-4.8) k/uL Carbon Dioxide (22-30) mmol/L BUN (9-20) mg/dL Creatinine (0.66-1.25) mg/dL Glucose (74-99) mg/dL POC Glucose (mg/dL) 116 H 120 H (75-99) mg/dL Calcium (8.4-10.2) mg/dL Crossmatch 04/11/19 04/11/19 Range/Units 04:21 09:39 WBC (3.8-10.6) k/uL RBC (4.30-5.90) m/uL Hgb (13.0-17.5) gm/dL Hct (39.0-53.0) % RDW (11.5-15.5) % Plt Count (150-450) k/uL Lymphocytes # (1.0-4.8) k/uL Carbon Dioxide 32 H (22-30) mmol/L BUN 33 H (9-20) mg/dL Creatinine 4.40 H (0.66-1.25) mg/dL Glucose 69 L (74-99) mg/dL POC Glucose (mg/dL) (75-99) mg/dL Calcium 7.3 L (8.4-10.2) mg/dL Crossmatch See Detail Microbiology - Last 24 Hours (Table) 04/07/19 19:28 Blood Culture - Preliminary Blood No Growth after 72 hours 04/08/19 01:30 Gram Stain - Final Sputum Sputum Culture - Final Assessment and Plan Plan: 1 altered mental status, probably multifactorial as the patient could have been encephalopathic secondary to uremia/missed dialysis and in same time there is a concern that the patient has taken excessive amount of narcotic medications as the patient is on a combination of [place] and MS Contin on outpatient basis. In any rate, the patient had a negative computed tomography scan of the brain and CT angios the brain and he did not respond to Narcan. During the process, the patient had to be intubated and placed on a mechanical ventilator. The patient also underwent a session of hemodialysis ultrafiltration yesterday. On today's evaluation of 04/09/2019, the patient's postdialysis, the patient not take any form of narcotic medications. He is on sedation with propofol and the patient's mental status will be checked while being given a sedation holiday. The patient is or the undergone 2 sessions of hemodialysis. On today's evaluation of 04/10/2019, the patient extubated in the mental status back to normal. No altered mentation per no focal neurological deficit. The patient has recovered. This was likely encephalopathy due to drugs and uremia. On 04/11/2019 the patient has returned back to normal mentation. No focal neurological deficits. This was metabolic encephalopathy related to uremia in addition to drugs. 2 acute hypoxic respiratory failure with a component of fluid overload, improved and the patient has been extubated for now on room air oxygen 3 hypotension currently normotensive and the hypotension is recovered.. Meanwhile, the patient is maintaining a decent blood pressure and all of the cultures are negative. He was found to have a acute non-STEMI yet the echo cardiac grams with a preserved LV function with an ejection fraction of 60%. The patient is hemodynamically stable on no pressors at this point in time. 4 End stage renal disease on hemodialysis 3 times a week MWF, last session of hemodialysis was yesterday 5 coronary artery disease with limited troponin leak, type II cardiac injury versus an acute non-STEMI. Cardiology evaluated the patient and patient will be needing a catheterization at a later stage 6 CHF with systolic heart failure with an ejection fraction of 30-35% and segmental wall motion abnormalities based on previous echocardiogram. Repeat echo cardiac on that was done during this current admission showed a preserved LV function. Ejection fraction is up to 60%. 7 leukocytosis, improved, in fact the patient has developed some leukopenia today in the white cell count is down to 2.5 8 chronic thrombocytopenia, with interval drop in late is contemplated to medications including heparin or Zosyn. Appropriate adjustments were done. Heparin was discontinued and the patient was switched to meropenem. 9 acute hyperkalemia treated the patient's potassium level is down to 4.5 and he was treated per protocol regarding hyperkalemia and he has undergone a session of hemodialysis 10 COPD 11 diabetes mellitus type 2 13 peripheral neuropathy 14 chronic alcoholism none for now 15 history of chronic pancreatitis 16 previous history of CVA with some right-sided weakness 17 previous history of ARDS requiring intubation and prolonged mechanical ventilation requiring tracheostomy tube insertion 18 chronic thrombocytopenia related to above 19 splenomegaly 20 previous history of esophageal varices without previous bleeding 21 previous history of narcotic/opiate overdose 22 pancytopenia awaiting hematology consultation Plan Overall condition is stable. Obtain iron studies. Obtain vitamin B12 and folate. Proceed with hematology oncology consultation. 1 Unit of packed RBC. No dialysis today. We'll follow.
[2019-04-11 11:41] LABS: Glucose,Whole Blood 114 mg/dL (75-99)
[2019-04-11 12:21] VITALS: BMI 29.2
--- NOTE | 2019-04-11 12:26 | P.PN ---
Subjective Progress Note Date: 04/11/19 Principal diagnosis: Altered mental status Patient is more awake today still feeling weak hemoglobin was found to be 6.9 this morning Objective - Vital Signs Vital signs: Vital Signs Temp 98.3 F 04/11/19 11:45 Pulse 90 04/11/19 12:00 Resp 14 04/11/19 12:00 BP 157/61 04/11/19 12:00 Pulse Ox 97 04/11/19 12:00 Intake & Output 04/10/19 04/11/19 04/11/19 18:59 06:59 18:59 Intake Total 280 200 306 Output Total 1520 0 750 Balance -1240 200 -444 Weight 97.6 kg Intake: IV 160 200 130 .9 bolus 50 100 30 Meropenem 1 gm In Sodium 100 100 100 Chloride 0.9% 100 ml @ 200 mls/hr IVPB Q12HR [facility] Rx#:[id number] Sodium Chloride 0.9% 1, 10 000 ml @ 50 mls/hr IV . Q20H [facility] Rx#:[id number] Oral 120 176 Blood Product 0 Rc As-1 Unit 0 [id number] Output: Urine 20 0 750 Hemodialysis 1500 Other: Voiding Method Bedside Commode Bedside Commode Bedside Commode ABP, PAP, CO, CI - Last Documented Arterial Blood Pressure 122/42 - Exam Gen.: in stated age, no acute distress, alert and oriented times one to 2 on the Heart: Normal S1-S2 Lungs: Clear to auscultation bilaterally Abdomen: Soft, no tenderness, positive bowel sounds in all 4 quadrant no guarding or rebound Skin: No new rash Psych: Alert and oriented 3 Neuro: No focal deficit - Labs CBC & Chem 7: 04/11/19 04:21 04/11/19 04:21 Labs: Abnormal Lab Results - Last 24 Hours (Table) 04/10/19 04/10/19 04/11/19 Range/Units 16:58 20:38 04:21 WBC 2.5 L (3.8-10.6) k/uL RBC 2.04 L (4.30-5.90) m/uL Hgb 6.9 L* (13.0-17.5) gm/dL Hct 20.1 L (39.0-53.0) % RDW 17.4 H (11.5-15.5) % Plt Count 41 L (150-450) k/uL Lymphocytes # 0.6 L (1.0-4.8) k/uL Carbon Dioxide (22-30) mmol/L BUN (9-20) mg/dL Creatinine (0.66-1.25) mg/dL Glucose (74-99) mg/dL POC Glucose (mg/dL) 116 H 120 H (75-99) mg/dL Calcium (8.4-10.2) mg/dL Crossmatch 04/11/19 04/11/19 04/11/19 Range/Units 04:21 09:39 11:30 WBC (3.8-10.6) k/uL RBC (4.30-5.90) m/uL Hgb (13.0-17.5) gm/dL Hct (39.0-53.0) % RDW (11.5-15.5) % Plt Count (150-450) k/uL Lymphocytes # (1.0-4.8) k/uL Carbon Dioxide 32 H (22-30) mmol/L BUN 33 H (9-20) mg/dL Creatinine 4.40 H (0.66-1.25) mg/dL Glucose 69 L (74-99) mg/dL POC Glucose (mg/dL) 114 H (75-99) mg/dL Calcium 7.3 L (8.4-10.2) mg/dL Crossmatch See Detail Microbiology - Last 24 Hours (Table) 04/07/19 19:28 Blood Culture - Preliminary Blood No Growth after 72 hours 04/08/19 01:30 Gram Stain - Final Sputum Sputum Culture - Final Assessment and Plan Assessment: 1. Acute encephalopathy likely related to polypharmacy and pain medication, excessive dose of narcotics 2. End-stage renal disease on hemodialysis. 3. Severe thrombocytopenia. 4. Generalized weakness. 5. Electrolyte imbalance. 6. Debility and deconditioning. 7. Anxiety and depression. 8. Hypertension. 9. Hyperlipidemia. 10. Acute on chronic anemia Plan discussed with critical care and later with nephrology where I would like t o transfuse 1 units of packed red blood cells repeat hemoglobin in the morning check on occult blood and stool and monitor vital signs closely. I would like to discontinue morphine continue with [place] on the as needed avoid morphine at the time of the discharge and consider only then them minimum amount of narcotics at the time of the discharge as patient is dialysis patient with poor metabolization and currently suffering from accumulative dose of narcotics in his body with generalized weakness altered mental status and this hospital presentation. Would continue aggressive dialysis monitor platelets closely I would like to follow-up with hematology recommendation area prognosis remained g eddyed
[2019-04-11 16:11] LABS: Anisocytosis Slight; Basophils % (A) 1 %; Eosinophils # (A) 0.1 k/uL (0-0.7); Eosinophils % (A) 4 %; HCT 21.4 % (39.0-53.0); HGB 7.4 gm/dL (13.0-17.5); Lymphocytes # (A) 0.5 k/uL (1.0-4.8); Lymphocytes % (A) 19 %; MCH 33.9 pg (25.0-35.0); MCHC 34.5 g/dL (31.0-37.0); MCV 98.2 fL (80.0-100.0); Macrocytosis Slight; Mean Platelet Volume 9.3; Monocytes # (A) 0.2 k/uL (0-1.0); Monocytes % (A) 8 %; Neutrophils # (A) 1.8 k/uL (1.3-7.7); Neutrophils % (A) 66 %; Poikilocytosis Slight; RBC 2.17 m/uL (4.30-5.90); RDW 17.4 % (11.5-15.5); WBC 2.7 k/uL (3.8-10.6)
[2019-04-11 16:17] LABS: Platelet Count 38 k/uL (150-450)
[2019-04-11 17:19] LABS: Glucose,Whole Blood 180 mg/dL (75-99)
[2019-04-11 20:43] LABS: Glucose,Whole Blood 134 mg/dL (75-99)
[2019-04-11] MEDS: INSULIN DETEMIR (LEVEMIR) 100 UNIT/ML SYR SQ SCH (20:43)
[2019-04-11] MEDS: ATORVASTATIN 80 MG TAB PO SCH (20:44)
[2019-04-12 07:21] LABS: Glucose,Whole Blood 112 mg/dL (75-99)
[2019-04-12] MEDS: INSULIN ASPART (NovoLOG) 100 UNIT/ML VIAL SQ SCH ×4 (07:33→20:34)
[2019-04-12] MEDS: Lubiprostone [Amitiza] 24 MCG PO SCH ×2 (08:00→21:07)
[2019-04-12] MEDS: CITALOPRAM HYDROBROMIDE 10 MG TAB PO SCH (08:09)
[2019-04-12] MEDS: hydrALAZINE HCL 50 MG TAB PO SCH ×3 (08:09→20:33)
[2019-04-12] MEDS: PANTOPRAZOLE 40 MG TABLET PO SCH (08:09)
[2019-04-12] MEDS: CALCIUM ACETATE 667 MG TAB PO SCH ×3 (08:09→17:08)
[2019-04-12] MEDS: LACTULOSE 20 GM/30 ML CUP PO SCH (08:09)
[2019-04-12] MEDS: ARIPiprazole 5 MG TAB PO SCH (08:12)
[2019-04-12] MEDS: GABAPENTIN 100 MG CAP PO SCH ×3 (08:12→20:33)
[2019-04-12] MEDS: MEROPENEM 1 GM in SODIUM CHLORIDE 0.9% 100 ML IVPB SCH ×2 (08:12→20:34)
[2019-04-12 10:08] LABS: Folate, Serum 17.4 ng/mL
--- NOTE | 2019-04-12 10:14 | P.PN ---
Subjective Patient is seen in follow for end-stage renal disease. He is maintained on hemodialysis on a Friday schedule. Hemoglobin improved after blood transfusion. No active bleeding. Feels better today. Vital signs are stable. General: The patient appeared well nourished and normally developed. HEENT: Head exam is unremarkable. Neck is without jugular venous distension. LUNGS: Lungs are clear to auscultation and percussion. Breath sounds decreased. HEART: Rate and Rhythm are regular. First and second heart sounds normal. No mur murs, rubs or gallops. ABDOMEN: Abdominal exam reveals normal bowel sounds. Non-tender and non-dist ended. No evidence of peritonitis. EXTREMITITES: 1+ edema. Objective - Vital Signs Vital signs: Vital Signs Temp 98.7 F 04/12/19 04:30 Pulse 83 04/12/19 04:30 Resp 20 04/12/19 04:30 BP 178/69 04/12/19 04:30 Pulse Ox 95 04/12/19 04:30 Intake & Output 04/11/19 04/12/19 04/12/19 18:59 06:59 18:59 Intake Total 616 300 200 Output Total 750 39 Balance -134 300 161 Weight 97.6 kg Intake: IV 130 .9 bolus 30 Meropenem 1 gm In Sodium 100 Chloride 0.9% 100 ml @ 200 mls/hr IVPB Q12HR [facility] Rx#:[id number] Oral 176 300 200 Tube Feeding 0 Blood Product 310 Rc As-1 Unit 310 [id number] Output: Urine 750 Post Void Residual 39 Other: Voiding Method Bedside Commode Bedside Commode # Voids 0 0 1 ABP, PAP, CO, CI - Last Documented Arterial Blood Pressure 122/42 - Labs CBC & Chem 7: 04/11/19 15:48 04/11/19 04:21 Labs: Abnormal Lab Results - Last 24 Hours (Table) 04/11/19 04/11/19 04/11/19 Range/Units 09:39 11:30 15:48 WBC 2.7 L (3.8-10.6) k/uL RBC 2.17 L (4.30-5.90) m/uL Hgb 7.4 L (13.0-17.5) gm/dL Hct 21.4 L (39.0-53.0) % RDW 17.4 H (11.5-15.5) % Plt Count 38 L (150-450) k/uL Lymphocytes # 0.5 L (1.0-4.8) k/uL POC Glucose (mg/dL) 114 H (75-99) mg/dL Crossmatch See Detail 04/11/19 04/11/19 04/12/19 Range/Units 17:16 20:27 07:19 WBC (3.8-10.6) k/uL RBC (4.30-5.90) m/uL Hgb (13.0-17.5) gm/dL Hct (39.0-53.0) % RDW (11.5-15.5) % Plt Count (150-450) k/uL Lymphocytes # (1.0-4.8) k/uL POC Glucose (mg/dL) 180 H 134 H 112 H (75-99) mg/dL Crossmatch Microbiology - Last 24 Hours (Table) 04/07/19 19:28 Blood Culture - Preliminary Blood No Growth after 96 hours 04/10/19 16:48 Blood Culture - Preliminary Blood No Growth after 24 hours Assessment and Plan Plan: Assessment: 1. End-stage renal disease maintained on hemodialysis on a Friday schedule. 2. Severe hyperkalemia on admission improved postdialysis. 3. Encephalopathy most likely related to medications, including MS Contin, [place]. 4. Chronic thrombocytopenia associated with splenomegaly. No active bleeding. 5. Insulin-dependent diabetes mellitus. 6. Hypertension with chronic kidney disease. 7. Mild volume overload. 8. Chronic kidney disease mineral bone disease maintained on PhosLo. 9. Anemia of chronic kidney disease. No active bleeding. Improved post transfusion. Maintained on Aranesp. Plan: Hemodialysis today. Avoid excess narcotics. MS Contin changed to as needed only. Increase hydralazine to 100 mg 3 times a day. Hold off on lisinopril at this time. It can be resumed outpatient if potassium level stays stable.
--- NOTE | 2019-04-12 11:04 | P.CONS ---
History of Present Illness - Reason for Consult Consult date: 04/12/19 Pancytopenia Requesting physician: uEgene Castillo - Chief Complaint Syncope - History of Present Illness Mr. Silva has been seen by Dr. Schreiber in the past. Initially seen in consult [facility] 12/23/14, admitted for SOB and anasarca. Consult was placed for splenomegaly and pancytopenia. Pancytopenia noted for several years prior on chart review, splenomegaly was present on previous CT scan from 2009. Differentials included sequelae secondary to heavy ETOH use, chronic splenic vein thrombosis and chronic kidney disease. Repeat iron studies and SPEP were WNL. The pt actually had been on Procrit prior to his admission in 12/07, but it was apparently not effective. He was seen by Dr. Schreiber first first office visit 02/02/2015. All workup was negative. No intervention was recommended for pancytopenia as the counts were mostly in the safe range. Patient responded to Procrit. He continued to follow with nephrology for the same. Patient states that he has not followed up in quite some time and not had any erythropoietin supplementation. His renal function has worsened, with Cr 4.4, renal biopsy had previously been recommended. Patient's hospitalizations do show an acute drop in his counts. They do recover as patient recovers from acute situation. Patient is admitted with syncope, he does not remember losing consciousness. Review of Systems 14 point review of systems is negative except as stated in HPI Past Medical History Past Medical History: Coronary Artery Disease (CAD), Chest Pain / Angina, Heart Failure, COPD, CVA/TIA, Diabetes Mellitus, GERD/Reflux, Hyperlipidemia, Hypertension, Osteoarthritis (OA), Renal Disease, Respiratory Disorder, Sleep Apnea/CPAP/BIPAP Additional Past Medical History / Comment(s): Known history of coronary artery disease, congestion heart failure with segmental wall motion abnormalities and ejection fraction of 30%, COPD, diabetes mellitus type 2, peripheral neuropathy, end-stage renal disease currently on hemodialysis 3 times a week MWF, history of alcoholism, history of chronic pancreatitis, the patient has not drank alcohol for more than 70s, history of chronic CVA with some right-sided weakness, history of ARDS requiring intubation mechanical ventilation and was quite prolonged and the patient required tracheostomy tube insertion for that, history of splenomegaly, chronic anemia, chronic back pain, chronic neck pain, chronic narcotic dependence him a chronic thrombocytopenia, hypertension, history of esophageal varices without bleeding, history of opiate overdose History of Any Multi-Drug Resistant Organisms: None Reported Past Surgical History: Appendectomy, Back Surgery, Cholecystectomy, Heart Catheterization, Heart Catheterization With Stent Additional Past Surgical History / Comment(s): PCI with stents, tracheostomy, bladder stone removal, anterior cervical disc fusion/plate, jugular catheter insertion since removed, colonoscopy."dialysis graft site lt upper arm"-no bp or blood draw lt arm, peritoneal catheter-since removed. Past Anesthesia/Blood Transfusion Reactions: No Reported Reaction Date of Last Stent Placement:: 2013 Past Psychological History: Anxiety, Depression Additional Psychological History / Comment(s): Pt resides with his spouse and their 2 sons, one of which is a handicapped minor and the other an adult. Pt has a glucometer. He drives. Smoking Status: Former smoker Past Alcohol Use History: None Reported Additional Past Alcohol Use History / Comment(s): Quit smoking 1990, smoked approx 23 yrs 1ppd, no alcohol for over 7 yrs. Past Drug Use History: None Reported - Past Family History Father Family Medical History: Coronary Artery Disease (CAD), Myocardial Infarction (MD) Additional Family Medical History / Comment(s): Father of a MD at the age of 65yrs. Mother Family Medical History: Coronary Artery Disease (CAD), Myocardial Infarction (MD) Additional Family Medical History / Comment(s): Mother of a MD at the age of 55yrs. Brother(s) Family Medical History: Cancer Daughter(s) Family Medical History: Vascular Disorder (VSD) Medications and Allergies Home Medications Medication Instructions Recorded Confirmed Type Atorvastatin Calcium [Lipitor] 80 mg PO HS #30 tab 03/01/14 04/07/19 Rx ALPRAZolam [Xanax] 0.125 mg PO HS PRN 06/04/18 04/07/19 History HYDROcodone/APAP 10-325MG [Jermyn 1 tab PO Q4H 06/04/18 04/07/19 History 10-325] hydrALAZINE HCL [Apresoline] 50 mg PO TID #90 tab 06/15/18 04/07/19 Rx Docusate [Colace] 100 mg PO DAILY PRN cap 06/28/18 04/07/19 Rx Ferrous Sulfate [Feosol] 325 mg PO TID #90 tab 06/28/18 04/07/19 Rx Lactulose [Cephulac] 30 gm PO DAILY #1 bottle 06/28/18 04/07/19 Rx ARIPiprazole [Abilify] 5 mg PO DAILY 01/04/19 04/07/19 History Albuterol Sulfate [Proair Hfa] 2 puff INHALATION RT-QID PRN 01/04/19 04/07/19 History Bumetanide [BUMEX] 2 mg PO BID 01/04/19 04/07/19 History Dialyvite 1 tab PO DAILY 01/04/19 04/07/19 History Fluticasone Nasal [place] [Flonase 2 spr EA NOSTRIL DAILY 01/04/19 04/07/19 History Nasal [place]] Fluticasone/Salmeterol [Advair 1 puff INHALATION RT-BID 01/04/19 04/07/19 History 250-50 Diskus] Insulin Aspart [NovoLOG Flexpen] 20 unit SQ AC-TID 01/04/19 04/07/19 History Insulin Glargine,Hum.rec.anlog 20 unit SQ HS 01/04/19 04/07/19 History [Basaglar Kwikpen U-100] Lubiprostone [Amitiza] 24 mcg PO BID 01/04/19 04/07/19 History Metoprolol Tartrate [Lopressor] 150 mg PO BID 01/04/19 04/07/19 History Nitroglycerin Sl Tabs [Nitrostat] 0.4 mg SUBLINGUAL Q5M PRN 01/04/19 04/07/19 History Omeprazole [PriLOSEC] 20 mg PO DAILY 01/04/19 04/07/19 History Citalopram Hydrobromide [CeleXA] 10 mg PO DAILY #30 tab 01/06/19 04/07/19 Rx Calcium Acetate [Phoslo] 1,334 mg PO AC-TID 04/07/19 04/07/19 History Gabapentin [Neurontin] 100 mg PO TID 04/07/19 04/07/19 History Lisinopril 30 mg PO DAILY 04/07/19 04/07/19 History Morphine Sulfate ER [Ms Contin] 30 mg PO Q12HR 04/07/19 04/07/19 History Allergies Allergy/AdvReac Type Severity Reaction Status Date / Time No Known Allergies Allergy Verified 04/07/19 20:17 Physical Exam Vitals: Vital Signs Temp Pulse Pulse Resp BP BP Pulse Ox 04/12/19 04:30 98.7 F 83 20 178/69 95 04/11/19 21:30 98.2 F 79 20 170/72 96 04/11/19 15:04 16 04/11/19 14:26 98.4 F 91 16 166/69 98 04/11/19 13:10 98.4 F 98 16 166/69 98 04/11/19 12:00 90 14 157/61 97 04/11/19 11:45 98.3 F 91 16 172/68 98 04/11/19 11:15 97.5 F L 80 12 157/61 96 04/11/19 11:05 98.2 F 79 12 159/59 100 04/11/19 11:00 81 13 147/63 95 Intake and Output 04/11/19 04/12/19 04/12/19 22:59 06:59 14:59 Intake Total 200 100 200 Output Total 39 Balance 200 100 161 Intake: Oral 200 100 200 Tube Feeding 0 Output: Post Void Residual 39 Other: Voiding Method Bedside Commode # Voids 0 0 1 - Constitutional General appearance: average body habitus, cooperative, no acute distress - EENT Eyes: anicteric sclerae, EOMI ENT: hearing grossly normal, normal oropharynx - Neck Neck: no lymphadenopathy - Respiratory Respiratory: bilateral: CTA - Cardiovascular Rhythm: regular Heart sounds: normal: S1, S2 Abnormal Heart Sounds: no systolic murmur, no diastolic murmur, no rub, no S3 Gallop, no S4 Gallop, no click, no other leg Peripheral Edema: bilateral: None - Gastrointestinal General gastrointestinal: no absent bowel sounds, no decreased bowel sounds, no distended, no hepatomegaly, no hyperactive bowel sounds, normal bowel sounds, no organomegaly, no rigid, no scaphoid, soft, splenomegaly, no tenderness, no umbilical hernia, no ventral hernia - Neurologic Neurologic: CNII-XII intact - Musculoskeletal Musculoskeletal: strength equal bilaterally - Psychiatric Patient drifts off to sleep and started snoring in the middle of a sentence. He answered questions appropriately Psychiatric: appropriate affect, intact judgment & insight Results CBC & Chem 7: 04/11/19 15:48 04/11/19 04:21 Labs: Abnormal Lab Results - Last 24 Hours (Table) 04/11/19 04/11/19 04/11/19 Range/Units 09:39 11:30 15:48 WBC 2.7 L (3.8-10.6) k/uL RBC 2.17 L (4.30-5.90) m/uL Hgb 7.4 L (13.0-17.5) gm/dL Hct 21.4 L (39.0-53.0) % RDW 17.4 H (11.5-15.5) % Plt Count 38 L (150-450) k/uL Lymphocytes # 0.5 L (1.0-4.8) k/uL POC Glucose (mg/dL) 114 H (75-99) mg/dL Crossmatch See Detail 04/11/19 04/11/19 04/12/19 Range/Units 17:16 20:27 07:19 WBC (3.8-10.6) k/uL RBC (4.30-5.90) m/uL Hgb (13.0-17.5) gm/dL Hct (39.0-53.0) % RDW (11.5-15.5) % Plt Count (150-450) k/uL Lymphocytes # (1.0-4.8) k/uL POC Glucose (mg/dL) 180 H 134 H 112 H (75-99) mg/dL Crossmatch Microbiology - Last 24 Hours (Table) 04/07/19 19:28 Blood Culture - Preliminary Blood No Growth after 96 hours 04/10/19 16:48 Blood Culture - Preliminary Blood No Growth after 24 hours Assessment and Plan (1) Pancytopenia Narrative/Plan: Patient has been worked up for pancytopenia in the past. Previously workup did not show a paraproteinemia, marrow or malignant source. His felt that the patient's chronically low blood counts were related to the history of EtOH abuse, liver disease as well as chronic kidney disease. Patient states he has not had Aranesp injections for quite some time. I believe in the past these maintained patient's hemoglobin in the 8-9 range. Patient's white blood cell count, hemoglobin and platelet count are near baseline for him, absolute neutrophil count is normal. Pancytopenia workup has been ordered. No need for transfusion. Nephrology is following. Epo has been ordered. Current Visit: Yes Status: Chronic Priority: Medium Code(s): D61.818 - OTHER PANCYTOPENIA SNOMED Code(s): 643706963 (2) Acute on chronic renal failure Narrative/Plan: Nephrology is following. Current Visit: Yes Status: Chronic Priority: Medium Code(s): N17.9 - ACUTE KIDNEY FAILURE, UNSPECIFIED; N18.9 - CHRONIC KIDNEY DISEASE, UNSPECIFIED SNOMED Code(s): 668414556
[2019-04-12 11:28] LABS: Glucose,Whole Blood 214 mg/dL (75-99)
--- NOTE | 2019-04-12 11:32 | P.PN ---
Subjective Progress Note Date: 04/12/19 Principal diagnosis: Altered mental status, multifactorial, related to uremic encephalopathy, and the possibility of opiate overdose On 04/12/2019 patient seen in follow-up on medical surgical floor. He is awake and alert, oriented 3, he is on room air, with a pulse ox of 95%, hemodynamically stable, afebrile. No specific complaints, no shortness of breath, no chest pain, no cough or congestion, no altered mental status, no lethargy, patient will have hemodialysis treatment today, and he is anticipated to be discharged today. No new labs or chest x-rays. No acute events overnight. All cultures remain negative, patient remains on meropenem for diagnosis of sepsis, although the source has not been identified. Infectious disease is following. Objective - Vital Signs Vital signs: Vital Signs Temp 98.7 F 04/12/19 04:30 Pulse 83 04/12/19 04:30 Resp 20 04/12/19 04:30 BP 178/69 04/12/19 04:30 Pulse Ox 95 04/12/19 04:30 Intake & Output 04/11/19 04/12/19 04/12/19 18:59 06:59 18:59 Intake Total 616 300 200 Output Total 750 39 Balance -134 300 161 Weight 97.6 kg Intake: IV 130 .9 bolus 30 Meropenem 1 gm In Sodium 100 Chloride 0.9% 100 ml @ 200 mls/hr IVPB Q12HR [facility] Rx#:[id number] Oral 176 300 200 Tube Feeding 0 Blood Product 310 Rc As-1 Unit 310 [id number] Output: Urine 750 Post Void Residual 39 Other: Voiding Method Bedside Commode Bedside Commode # Voids 0 0 1 ABP, PAP, CO, CI - Last Documented Arterial Blood Pressure 122/42 - Exam GENERAL EXAM: Alert, active, pleasant 58-year-old white male on room air comfor table in no apparent distress. HEAD: Normocephalic/atraumatic. EYES: Normal reaction of pupils, equal size. Conjunctiva pink, sclera white. NOSE: Clear with pink turbinates. THROAT: No erythema or exudates. NECK: No masses, no JVD, no thyroid enlargement, no adenopathy. CHEST: No chest wall deformity. Symmetrical expansion. LUNGS: Equal air entry with no crackles, wheeze, rhonchi or dullness. CVS: Regular rate and rhythm, normal S1 and S2, no gallops, no murmurs, no rubs ABDOMEN: Soft, nontender. No hepatosplenomegaly, normal bowel sounds, no guarding or rigidity. EXTREMITIES: No clubbing, no edema, no cyanosis, 2+ pulses and upper and lower extremities. MUSCULOSKELETAL: Muscle strength and tone normal. SPINE: No scoliosis or deformity SKIN: No rashes CENTRAL NERVOUS SYSTEM: Alert and oriented -3. No focal deficits, tone is normal in all 4 extremities. PSYCHIATRIC: Alert and oriented -3. Appropriate affect. Intact judgment and insight. - Labs CBC & Chem 7: 04/11/19 15:48 04/11/19 04:21 Labs: Abnormal Lab Results - Last 24 Hours (Table) 04/11/19 04/11/19 04/11/19 Range/Units 09:39 11:30 15:48 WBC 2.7 L (3.8-10.6) k/uL RBC 2.17 L (4.30-5.90) m/uL Hgb 7.4 L (13.0-17.5) gm/dL Hct 21.4 L (39.0-53.0) % RDW 17.4 H (11.5-15.5) % Plt Count 38 L (150-450) k/uL Lymphocytes # 0.5 L (1.0-4.8) k/uL POC Glucose (mg/dL) 114 H (75-99) mg/dL Crossmatch See Detail 04/11/19 04/11/19 04/12/19 Range/Units 17:16 20:27 07:19 WBC (3.8-10.6) k/uL RBC (4.30-5.90) m/uL Hgb (13.0-17.5) gm/dL Hct (39.0-53.0) % RDW (11.5-15.5) % Plt Count (150-450) k/uL Lymphocytes # (1.0-4.8) k/uL POC Glucose (mg/dL) 180 H 134 H 112 H (75-99) mg/dL Crossmatch Microbiology - Last 24 Hours (Table) 04/07/19 19:28 Blood Culture - Preliminary Blood No Growth after 96 hours 04/10/19 16:48 Blood Culture - Preliminary Blood No Growth after 24 hours Assessment and Plan Plan: Assessment: 1 altered mental status, probably multifactorial as the patient could have been encephalopathic secondary to uremia/missed dialysis and in same time there is a concern that the patient has taken excessive amount of narcotic medications as the patient is on a combination of [place] and [place] Contin on outpatient basis. In any rate, the patient had a negative computed tomography scan of the brain and CT angios the brain and he did not respond to Narcan. During the process, the patient had to be intubated and placed on a mechanical ventilator. The patient also underwent a session of hemodialysis ultrafiltration yesterday. On today's evaluation of 04/09/2019, the patient's postdialysis, the patient not take any form of narcotic medications. He is on sedation with propofol and the patient's mental status will be checked while being given a sedation holiday. The patient is or the undergone 2 sessions of hemodialysis. On today's evaluation of 04/10/2019, the patient extubated in the mental status back to normal. No altered mentation per no focal neurological deficit. The patient has recovered. This was likely encephalopathy due to drugs and uremia. On 04/11/2019 the patient has returned back to normal mentation. No focal neurological deficits. This was metabolic encephalopathy related to uremia in addition to drugs. 2 acute hypoxic respiratory failure with a component of fluid overload, improved and the patient has been extubated for now on room air oxygen 3 hypotension currently normotensive and the hypotension is recovered.. Meanwhile, the patient is maintaining a decent blood pressure and all of the cultures are negative. He was found to have a acute non-STEMI yet the echo cardiac grams with a preserved LV function with an ejection fraction of 60%. The patient is hemodynamically stable on no pressors at this point in time. 4 End stage renal disease on hemodialysis 3 times a week MWF, last session of hemodialysis was yesterday 5 coronary artery disease with limited troponin leak, type II cardiac injury versus an acute non-STEMI. Cardiology evaluated the patient and patient will be needing a catheterization at a later stage 6 CHF with systolic heart failure with an ejection fraction of 30-35% and segmental wall motion abnormalities based on previous echocardiogram. Repeat echo cardiac on that was done during this current admission showed a preserved LV function. Ejection fraction is up to 60%. 7 leukocytosis, improved, in fact the patient has developed some leukopenia today in the white cell count is down to 2.5 8 chronic thrombocytopenia, with interval drop in late is contemplated to medications including heparin or Zosyn. Appropriate adjustments were done. Heparin was discontinued and the patient was switched to meropenem. 9 acute hyperkalemia treated the patient's potassium level is down to 4.5 and he was treated per protocol regarding hyperkalemia and he has undergone a session of hemodialysis 10 COPD 11 diabetes mellitus type 2 13 peripheral neuropathy 14 chronic alcoholism none for now 15 history of chronic pancreatitis 16 previous history of CVA with some right-sided weakness 17 previous history of ARDS requiring intubation and prolonged mechanical ventilation requiring tracheostomy tube insertion 18 chronic thrombocytopenia related to above 19 splenomegaly 20 previous history of esophageal varices without previous bleeding 21 previous history of narcotic/opiate overdose 22 pancytopenia awaiting hematology consultation Plan: Patient is stable for discharge from pulmonary perspective, stable, no acute pulmonary complaints, he is on room air, vital signs are stable. All cultures remain negative, no fever or chills, mentation is appropriate, no lethargy, no alteration of mentation. Hematology consultation has been noted. No acute events overnight. Anticipate discharge today after hemodialysis treatment. I performed a history & physical examination of the patient and discussed their management with my nurse practitioner, Yumiko Matta. I reviewed the nurse practitioner's note and agree with the documented findings and plan of care. Lung sounds are positive for clear breath sounds. The findings and the impression was discussed with the patient. I attest to the documentation by the nurse practitioner. Time with Patient: Less than 30
--- NOTE | 2019-04-12 14:15 | CDI ---
Documentation Clarification Form Date: 04/12/2019 2:00:00 PM From: Pepper Daniels RN CCDS Admit Date: 04/07/2019 9:30:00 PM Patient Name: Ismael Silva Visit Number: [id number] Discharge Date: ATTENTION: The Clinical Documentation Specialists (CDI) and [facility] Coding Staff appreciate your assistance in clarifying documentation. Please respond to the clarification below the line at the bottom and electronically sign. The CDI & [facility] Coding staff will review the response and follow-up if needed. Please note: Queries are made part of the Legal Health Record. If you have any questions, please contact the author of this message via ITS. Dr. Audie Webb The diagnosis Sepsis was documented in the record , but is not consistently noted in subsequent documentation. History/Risk Factors: 58 year old male presents to ED for mental status changes. Medical History of ESRD DM, HTN and Hypertensive Cardiovascular disease. Clinical Indicators: The patient missed dialysis and had taken extra pain medication. The patient was given 3 doses of Narcan without much improvement . Per Critical Care /Pulmonology 04/12 note :All cultures remain negative, patient remains on meropenem for diagnosis of Sepsis , Although the source has ot been identified. Vss 04/08 day of inpt order 139/45 84 100.3 18 99% on ventilator Wbc 16.2, Neutrophls 14.1; Lactic acid 3.1; Treatment: Zosyn ivpb changed to Meropenem Ivpb , 1.5L 0.9ns bolus Please clarify if the above diagnosis of Sepsis was: * Sepsis Present/active this admission * Sepsis Treated and resolved this admission * Sepsis Ruled out * Other, please specify * Clinically unable to determine (Last Revision: May 2018-New) ____sepsis ruled out MTDD
[2019-04-12] MEDS ORDERED: GELATIN SPONGE,ABSORB (LARGE) 1 EACH SPONGE ONE (15:30)
[2019-04-12 16:25] LABS: Protein, Total 4.8 g/dL (6.2-8.2)
[2019-04-12 16:35] LABS: Rheumatoid Factor 64 IU/mL (0-15)
[2019-04-12 16:48] LABS: Glucose,Whole Blood 208 mg/dL (75-99)
[2019-04-12 20:28] LABS: Glucose,Whole Blood 242 mg/dL (75-99)
[2019-04-12] MEDS: ATORVASTATIN 80 MG TAB PO SCH (20:33)
[2019-04-12] MEDS: INSULIN DETEMIR (LEVEMIR) 100 UNIT/ML SYR SQ SCH (20:34)
[2019-04-12] MEDS: hydrALAZINE HCL 20 MG/ML 1 ML VIAL IVP PRN (20:36)
[2019-04-12 20:37] VITALS: RESP 17
--- NOTE | 2019-04-12 22:59 | P.PN ---
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 Patient had previous admission June 2017 for metabolic encephalopathy and acute hypoxic hypercarbic respiratory failure secondary to acute diastolic heart failure and hypercarbia for which patient was briefly intubated. Followed by another admission for acute change in mental status, increased weakness worsening shortness of breath and cough. Patient was treated for sepsis, pancytopenia requiring transfusions, acute hypoxic hypercarbic respiratory failu re requiring intubation secondary to fluid overload, acute on chronic systolic heart failure, possible gram-negative pneumonia that could not be ruled out during that admission. Patient had a prolonged course and was finally discharged on 06/15/2018. He was seen in June 2018 with pancytopenia secondary to chronic liver disease with bone marrow suppression from chronic alcohol use. He was seen by Dr. Major for esophageal varices and underlying possible cirrhosis as nodularity was noted on the liver with thrombocytopenia from hypersplenism. Patient was supposed to have EGD and colonoscopy and evaluation for possible kidney transplant. Patient presented to [facility] emergency center due to decreased level of consciousness. He apparently contacted his stating that he was not feeling well. He apparently skipped dialysis at least twice. According to the record, patient's found him to be quite sleepy and difficult to arouse. Patient was then brought into the hospital for evaluation. Patient is on [place] and morphine for chronic pain and was not determined patient had taken extra medication. Patient's apparently did not suspect a suicide attempt. The patient was given 3 doses of Narcan without much improvement. Lab work revealed potassium of 8.3, creatinine 85, creatinine 8.7. Blood sugar was 229. White cell count was at 16.2 with a hemoglobin was 12.9. The patient was given calcium gluconate. He also received D50 with insulin and albuterol for his hyperkalemia. CT of the brain and a CT angiogram that did not show any acute abnormalities. His EKG was sinus rhythm with a first-degree AV block. His troponin was at 0.7. Chest x-ray showed fluid overload/pulmonary edema. His lactic acid level was elevated at 3.1. Patient underwent emergent hemodialysis and transferred to the intensive care unit. Patient was initially on BiPAP but was subsequently intubated and placed on mechanical ventilation currently at tidal volume 500, FiO2 40, PEEP 5. The patient was then found to be hypotensive and was started on norepinephrine. WBC count went up to 18.3 and patient has been started on Zosyn. Patient also has the following consultants in place including cardiology for elevated troponins, nephrology for dialysis, Dr. Wharton for intensive care management, neurology to rule out CVA. 04/09/2019 H now but steady improvement in patient's status. He is extubated, feeling somewhat better. Looks forward to try to be able to eat after his 4 hour window was up post extubation. He is awake and alert to person place and e ventually does go okay with time. He has chronic back pain that is not doing well at this point in time asking pharmacy of subcutaneous morphine is available to help with the severe pain. Eventually will hopefully have new IV access placed. Patient working well for his second session of hemodialysis and again potassium is markedly improved he is having feeling better without fever or chill. 04/12/2019 patient is feeling considerably better With this hemodialysis And ongoing support. Potassium has normalized. Cultures have all been negative so far. Patient now feeling considerably better looking forward to his discharge to rehab and then to home. Objective - Vital Signs Vital signs: Vital Signs Temp 98.6 F 04/12/19 20:35 Pulse 84 04/12/19 20:35 Resp 17 04/12/19 20:35 BP 173/70 04/12/19 20:35 Pulse Ox 98 04/12/19 20:35 Intake & Output 04/12/19 04/12/19 04/13/19 06:59 18:59 06:59 Intake Total 300 400 500 Output Total 789 2702 Balance 300 -389 -2202 Intake: Oral 300 400 Tube Feeding 0 Hemodialysis 500 Output: Urine 750 Post Void Residual 39 Hemodialysis 2702 Other: Voiding Method Bedside Commode # Voids 0 1 ABP, PAP, CO, CI - Last Documented Arterial Blood Pressure 122/42 - Exam Gen: This is a 58-year-old male. Extubated awake and alert HEENT: Head is atraumatic, normocephalic. Pupils equal, round. Sclerae is anicteric. Oral mucous membranes are moist. Oral gastric and ET tube in place. NECK: Supple. No JVD. No lymphadenopathy. No thyromegaly. LUNGS: Clear to auscultation. No wheezes or rhonchi. No intercostal retractions. HEART: Regular rate and rhythm. No murmur. ABDOMEN: Soft. Bowel sounds are present. No masses. No tenderness. EXTREMITIES: No pedal edema. No calf tenderness. AV graft to the left upper extremity. NEUROLOGICAL: With extubation he is awake alert person place and time mostly. No acute gross focal sensory motor deficits - Labs CBC & Chem 7: 04/11/19 15:48 04/11/19 04:21 Labs: Abnormal Lab Results - Last 24 Hours (Table) 04/12/19 04/12/19 04/12/19 Range/Units 07:19 09:33 11:27 POC Glucose (mg/dL) 112 H 214 H (75-99) mg/dL Total Protein (PEP) 4.8 L (6.2-8.2) g/dL Rheumatoid Factor 64 H (0-15) IU/mL 04/12/19 04/12/19 Range/Units 16:45 19:57 POC Glucose (mg/dL) 208 H 242 H (75-99) mg/dL Total Protein (PEP) (6.2-8.2) g/dL Rheumatoid Factor (0-15) IU/mL Microbiology - Last 24 Hours (Table) 04/07/19 19:28 Blood Culture - Preliminary Blood No Growth after 120 hours 04/10/19 16:48 Blood Culture - Preliminary Blood No Growth after 48 hours Laboratory Results WBC 2.7 k/uL (3.8-10.6) L 04/11/19 15:48 RBC 2.17 m/uL (4.30-5.90) L 04/11/19 15:48 Hgb 7.4 gm/dL (13.0-17.5) L 04/11/19 15:48 Hct 21.4 % (39.0-53.0) L 04/11/19 15:48 MCV 98.2 fL (80.0-100.0) 04/11/19 15:48 MCH 33.9 pg (25.0-35.0) 04/11/19 15:48 MCHC 34.5 g/dL (31.0-37.0) 04/11/19 15:48 RDW 17.4 % (11.5-15.5) H 04/11/19 15:48 Plt Count 38 k/uL (150-450) L 04/11/19 15:48 Neutrophils % 66 % 04/11/19 15:48 Lymphocytes % 19 % 04/11/19 15:48 Monocytes % 8 % 04/11/19 15:48 Eosinophils % 4 % 04/11/19 15:48 Basophils % 1 % 04/11/19 15:48 Neutrophils # 1.8 k/uL (1.3-7.7) 04/11/19 15:48 Lymphocytes # 0.5 k/uL (1.0-4.8) L 04/11/19 15:48 Monocytes # 0.2 k/uL (0-1.0) 04/11/19 15:48 Eosinophils # 0.1 k/uL (0-0.7) 04/11/19 15:48 Basophils # 0.0 k/uL (0-0.2) 04/11/19 15:48 Manual Slide Review Performed 04/08/19 14:12 Hyperchromasia Slight 04/08/19 14:12 Poikilocytosis Slight 04/11/19 15:48 Anisocytosis Slight 04/11/19 15:48 Macrocytosis Slight 04/11/19 15:48 PT 11.4 sec (9.0-12.0) 04/08/19 14:12 INR 1.1 (<1.2) 04/08/19 14:12 APTT 42.7 sec (22.0-30.0) H 04/09/19 04:10 Sample Site RUDDY 04/09/19 11:41 ABG pH 7.41 (7.35-7.45) 04/09/19 11:41 ABG pCO2 41 mmHg (35-45) 04/09/19 11:41 ABG pO2 169 mmHg (83-108) H 04/09/19 11:41 ABG HCO3 26 mmol/L (21-25) H 04/09/19 11:41 ABG Total CO2 27 mmol/L (19-24) H 04/09/19 11:41 ABG O2 Saturation 100.0 % (94-97) H 04/09/19 11:41 ABG Base Excess 1.3 mmol/L 04/09/19 11:41 Jesus Manuel Test Yes 04/09/19 11:41 ABG Lactic Acid 1.1 mmol/L (0.5-1.6) 04/08/19 20:20 FiO2 40 % 04/09/19 11:41 Sodium 140 mmol/L (137-145) 04/11/19 04:21 Potassium 3.9 mmol/L (3.5-5.1) 04/11/19 04:21 Chloride 102 mmol/L (98-107) 04/11/19 04:21 Carbon Dioxide 32 mmol/L (22-30) H 04/11/19 04:21 Anion Gap 6 mmol/L 04/11/19 04:21 BUN 33 mg/dL (9-20) H 04/11/19 04:21 Creatinine 4.40 mg/dL (0.66-1.25) H 04/11/19 04:21 Est GFR (CKD-EPI)AfAm 16 (>60 ml/min/1.73 sqM) 04/11/19 04:21 Est GFR (CKD-EPI)NonAf 14 (>60 ml/min/1.73 sqM) 04/11/19 04:21 Glucose 69 mg/dL (74-99) L 04/11/19 04:21 POC Glucose (mg/dL) 242 mg/dL (75-99) H 04/12/19 19:57 POC Glu [employer] ID Rachael San 04/12/19 19:57 Lactic Ac Sepsis Rflx Y 04/07/19 20:55 Plasma Lactic Acid [place] 3.1 mmol/L (0.7-2.0) H* 04/07/19 19:28 Calcium 7.3 mg/dL (8.4-10.2) L 04/11/19 04:21 Ionized Calcium [place] 3.3 mg/dL (4.5-5.3) L* 04/08/19 05:50 Phosphorus 6.0 mg/dL (2.5-4.5) H 04/10/19 05:20 Magnesium 2.2 mg/dL (1.6-2.3) 04/08/19 20:20 Total Bilirubin 0.8 mg/dL (0.2-1.3) 04/07/19 19:28 AST 54 U/L (17-59) 04/07/19 19:28 ALT 39 U/L (21-72) 04/07/19 19:28 Alkaline Phosphatase 97 U/L (38-126) 04/07/19 19:28 CK-MB (CK-2) 15.9 ng/mL (0.0-2.4) H 04/08/19 09:45 Troponin I 2.180 ng/mL (0.000-0.034) H* 04/09/19 04:10 Total Protein 7.4 g/dL (6.3-8.2) 04/07/19 19:28 Total Protein (PEP) 4.8 g/dL (6.2-8.2) L 04/12/19 09:33 Albumin 4.5 g/dL (3.5-5.0) 04/07/19 19:28 Lipase 641 U/L (23-300) H 04/07/19 19:28 Vitamin B12 437.0 pg/mL (200.0-944.0) 04/11/19 04:21 Folate 17.4 ng/mL 04/11/19 04:21 Urine Color Yellow 04/08/19 02:57 Urine Appearance Clear (Clear) 04/08/19 02:57 Urine pH 6.0 (5.0-8.0) 04/08/19 02:57 Ur Specific [place] 1.015 (1.001-1.035) 04/08/19 02:57 Urine Protein 2+ (Negative) H 04/08/19 02:57 Urine Glucose (UA) 1+ (Negative) H 04/08/19 02:57 Urine Ketones Negative (Negative) 04/08/19 02:57 Urine Blood Negative (Negative) 04/08/19 02:57 Urine Nitrite Negative (Negative) 04/08/19 02:57 Urine Bilirubin Negative (Negative) 04/08/19 02:57 Urine Urobilinogen <2.0 mg/dL (<2.0) 04/08/19 02:57 Ur Leukocyte Esterase Negative (Negative) 04/08/19 02:57 Urine WBC 1 /hpf (0-5) 04/08/19 02:57 Urine Mucus Rare /hpf (None) H 04/08/19 02:57 Rheumatoid Factor 64 IU/mL (0-15) H 04/12/19 09:33 YEFRI Screen NEGATIVE (NEGATIVE) 04/12/19 09:33 Hep Bs Antigen Non-Reactive (Non-Reactive) 04/08/19 00:15 Hep Bs Antibody Non-Reactive (Non-Reactive) 04/08/19 00:15 Hep Bs Antibody, Quant 3.5 mIU/mL 04/08/19 00:15 Blood Type A Positive 04/11/19 09:39 Blood Type Recheck No 04/11/19 09:39 Antibody Screen NEGATIVE 04/11/19 09:39 Crossmatch See Detail 04/11/19 09:39 Spec Expiration Date 04/14/2019 - 2339 04/11/19 09:39 Microbiology 04/07/19 19:28 Blood Blood Culture - Preliminary No Growth after 120 hours 04/10/19 16:48 Blood Blood Culture - Preliminary No Growth after 48 hours 04/08/19 01:30 Sputum Gram Stain - Final 04/08/19 01:30 Sputum Sputum Culture - Final 04/08/19 02:57 Urine,Catheterized Urine Culture - Final Assessment and Plan (1) ESRD (end stage renal disease) Current Visit: Yes Status: Acute Code(s): N18.6 - END STAGE RENAL DISEASE SNOMED Code(s): 28787022 (2) Sepsis Narrative/Plan: 58-year-old male presents to Hospital as noted with a several-day history of progressive illness. He has end-stage renal disease on hemodialysis and missed 2 dialysis sessions. At presentation his potassium was greater than 8 and currently underwent to urgent dialysis sessions to reduce his potassium. He potentially had an opiate overdose at admission and had evidence of altered mentation respiratory failure and hypotension which required intubation and mechanical ventilation. This continues and remains in intensive care unit sed ated and on vasopressor therapy with ongoing significant hypotension. The patient has evidence of elevated troponins and his concerns to an acute myocardial infarction. The patient is on dialysis and has evidence of sepsis and consequently antibiotic therapy will need to include vancomycin. The p atient was started on Zosyn however his platelets have started to decrease even further wish to be in the base of the sepsis with could be a piperacillin effect. Is also notation of the markedly elevated lipase and constantly we'll have to consider the possibility of sepsis related to pancreatitis and Zosyn as transitioned to meropenem. Cultures were further help direct therapy in the multiple evaluations may further help or specifically identified the etiology of the sepsis. 04/09/2019 the patient is now much improved after his dialysis sessions and improvement of his potassium. He is receiving extensive antibiotic therapy with concerns to abdominal sepsis possibly pancreatitis. There is evidence of the leukocytosis and thrombocytopenia that are trending to improvement. Cultures are all in process at this point in time. He fortunately is doing well status post extubation and is being closely monitored. Dialysis is being directed per nephrology 04/12/2019 patient is now considerably improved. Still somewhat weak and is been seen by therapy. We'll transition to the extended care facility for rehab to ensure he receives the next several dose dialysis. The absolute importance of ongoing dialysis has been related, his potassium at 8 could have easily been fatal. He seems to show some understanding. All cultures are negative. Current Visit: No Status: Acute Code(s): A41.9 - SEPSIS, UNSPECIFIED ORGANISM SNOMED Code(s): 61718006
[2019-04-13] MEDS: HYDROcodone/APAP 10-325MG 1 EACH TAB PO PRN (06:03)
[2019-04-13 06:16] VITALS: BP 170/79; PULSE 83; TEMP 98.7
[2019-04-13 07:22] LABS: Glucose,Whole Blood 99 mg/dL (75-99)
[2019-04-13] MEDS: INSULIN ASPART (NovoLOG) 100 UNIT/ML VIAL SQ SCH ×2 (07:27→12:07)
[2019-04-13] MEDS: CALCIUM ACETATE 667 MG TAB PO SCH ×2 (07:29→12:07)
[2019-04-13] MEDS: ARIPiprazole 5 MG TAB PO SCH (07:29)
[2019-04-13] MEDS: CITALOPRAM HYDROBROMIDE 10 MG TAB PO SCH (07:29)
[2019-04-13] MEDS: hydrALAZINE HCL 50 MG TAB PO SCH (07:29)
[2019-04-13] MEDS: GABAPENTIN 100 MG CAP PO SCH (07:30)
[2019-04-13] MEDS: MEROPENEM 1 GM in SODIUM CHLORIDE 0.9% 100 ML IVPB SCH (07:30)
[2019-04-13] MEDS: LACTULOSE 20 GM/30 ML CUP PO SCH (07:30)
[2019-04-13] MEDS: Lubiprostone [Amitiza] 24 MCG PO SCH (07:30)
[2019-04-13] MEDS: PANTOPRAZOLE 40 MG TABLET PO SCH (07:30)
--- NOTE | 2019-04-13 10:33 | P.PN ---
Subjective Progress Note Date: 04/12/19 This is a 58-year-old male patient of Dr. Drew and Dr. 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 Patient had previous admission June 2017 for metabolic encephalopathy and acute hypoxic hypercarbic respiratory failure secondary to acute diastolic heart failure and hypercarbia for which patient was briefly intubated. Followed by another admission for acute change in mental status, increased weakness worsening shortness of breath and cough. Patient was treated for sepsis, pancytopenia requiring transfusions, acute hypoxic hypercarbic respiratory failure requiring intubation secondary to fluid overload, acute on chronic systolic heart failure, possible gram-negative pneumonia that could not be ruled out during that ad mission. Patient had a prolonged course and was finally discharged on 06/15/2018. He was seen in June 2018 with pancytopenia secondary to chronic liver disease with bone marrow suppression from chronic alcohol use. He was seen by Dr. Major for esophageal varices and underlying possible cirrhosis as nodularity was noted on the liver with thrombocytopenia from hypersplenism. Patient was supposed to have EGD and colonoscopy and evaluation for possible kidney transplant. Patient presented to [facility] emergency center due to decreased level of consciousness. He apparently contacted his stating that he was not feeling well. He apparently skipped dialysis at least twice. According to the record, patient's found him to be quite sleepy and difficult to arouse. Patient was then brought into the hospital for evaluation. Patient is on [place] and morphine for chronic pain and was not determined patient had taken extra medication. Patient's apparently did not suspect a suicide attempt. The patient was given 3 doses of Narcan without much improveme nt. Lab work revealed potassium of 8.3, creatinine 85, creatinine 8.7. Blood sugar was 229. White cell count was at 16.2 with a hemoglobin was 12.9. The patient was given calcium gluconate. He also received D50 with insulin and albuterol for his hyperkalemia. CT of the brain and a CT angiogram that did not show any acute abnormalities. His EKG was sinus rhythm with a first-degree AV block. His troponin was at 0.7. Chest x-ray showed fluid overload/pulmonary edema. His lactic acid level was elevated at 3.1. Patient underwent emergent hemodialysis and transferred to the intensive care unit. Patient was initially on BiPAP but was subsequently intubated and placed on mechanical ventilation currently at tidal volume 500, FiO2 40, PEEP 5. The patient was then found to be hypotensive and was started on norepinephrine. WBC count went up to 18.3 and patient has been started on Zosyn and consult added for Dr. Nicholson. Patient also has the following consultants in place including cardiology for elevated troponins, nephrology for dialysis, Dr. Wharton for intensive care management, neurology to rule out CVA. 04/09: Patient remains in intensive care unit intubated and on mechanical ventilation with tidal volume 500, FiO2 40, PEEP 5. Patient's blood pressure has been labile and remains on norepinephrine. Temperature max 100.3. Heart rate 69, blood pressure currently 129/49. Repeat lab work reveals a normal weight, 7, hemoglobin 8.8 and platelet count of 54. BUN 34 and creatinine 4.21, sodium 135. Blood sugars running between 184 and 210. NovoLog scheduled insulin will be added along with increased dose of Levemir. Blood culture showing no growth at 24 hours and sputum and urine culture in progress. Repeat chest x-ray reveals right basilar atelectasis. Nephrology is following. On Dr. Ha has discontinued aspirin and heparin due to thrombocytopenia. Echocard iogram reveals normal LV function. Patient may under goal coronary angiogram once stable and cleared from pulmonary medicine and infectious disease. Dr. Nicholson has discontinued Zosyn due to thrombocytopenia and transition to meropenem. 04/12: The patient was transfused 1 unit of packed RBCs for hemoglobin 6.9 with repeat at 7.4. No signs of active bleeding. Dr. Carmona has increased hydralazine and plan to hold lisinopril. He is undergoing hemodialysis today. Cardiology has signed off. Dr. Nicholson as indicated no need for further antibiotics at discharge. Patient has also been seen by oncology regarding thrombocytopenia and bone marrow suppression secondary to history of alcohol use. Patient is on [place]. Discussed discharge plan with the patient and he is agreeable to go to [facility] for rehab and arrangements most likely will be completed tomorrow. Objective - Vital Signs Vital signs: Vital Signs Temp 98.7 F 04/12/19 04:30 Pulse 83 04/12/19 04:30 Resp 20 04/12/19 04:30 BP 178/69 04/12/19 04:30 Pulse Ox 95 04/12/19 04:30 Intake & Output 04/11/19 04/12/19 04/12/19 18:59 06:59 18:59 Intake Total 616 300 200 Output Total 750 39 Balance -134 300 161 Weight 97.6 kg Intake: IV 130 .9 bolus 30 Meropenem 1 gm In Sodium 100 Chloride 0.9% 100 ml @ 200 mls/hr IVPB Q12HR [facility] Rx#:[id number] Oral 176 300 200 Tube Feeding 0 Blood Product 310 Rc As-1 Unit 310 [id number] Output: Urine 750 Post Void Residual 39 Other: Voiding Method Bedside Commode Bedside Commode # Voids 0 0 1 ABP, PAP, CO, CI - Last Documented Arterial Blood Pressure 122/42 - Exam Review of Systems Constitutional: No fever, no chills, no night sweats. No weight change. Reports weakness, fatigue or lethargy. No daytime sleepiness. EENT: No headache. No blurred vision or double vision, no loss of vision. No loss of Hearing, no ringing in the ears, no dizziness. No nasal drainage or congestion. No epistaxis. No sore throat. Lungs: No shortness of breath, cough, no sputum production. No wheezing. Cardiovascular: No chest pain, no lower extremity edema. No palpitations. No paroxysmal nocturnal dyspnea. No orthopnea. No lightheadedness or dizziness. No syncopal episodes. Abdominal: No abdominal pain. No nausea, vomiting. No diarrhea. No constipation. No bloody or tarry stools. Genitourinary: No dysuria, increased frequency, urgency. No urinary retention. Musculoskeletal: No myalgias. Reports muscle weakness, reports gait dysfunction, no frequent falls. No back pain. No neck pain. Integumentary: No wounds, no lesions. No rash or pruritus. No unusual bruising. No change in hair or nails. Neurologic: No aphasia. No facial droop. No change in mentation. No head injury. No headache. No paralysis. No paresthesia. Psychiatric: No depression. No anxiety. No mood swings. Gen: This is a 58-year-old male. Patient is undergoing hemodialysis. He appears to be comfortable and in no acute distress.. HEENT: Head is atraumatic, normocephalic. Pupils equal, round. Sclerae is anicteric. Oral mucous membranes are moist. NECK: Supple. No JVD. No lymphadenopathy. No thyromegaly. LUNGS: Clear to auscultation. No wheezes or rhonchi. No intercostal retractions. HEART: Regular rate and rhythm. No murmur. ABDOMEN: Soft. Bowel sounds are present. No masses. No tenderness. EXTREMITIES: No pedal edema. No calf tenderness. AV graft to the left upper extremity. NEUROLOGICAL: Patient is awake alert and oriented 3. Generalized weakness noted. - Labs CBC & Chem 7: 04/11/19 15:48 04/11/19 04:21 Labs: Abnormal Lab Results - Last 24 Hours (Table) 04/11/19 04/11/19 04/11/19 Range/Units 09:39 11:30 15:48 WBC 2.7 L (3.8-10.6) k/uL RBC 2.17 L (4.30-5.90) m/uL Hgb 7.4 L (13.0-17.5) gm/dL Hct 21.4 L (39.0-53.0) % RDW 17.4 H (11.5-15.5) % Plt Count 38 L (150-450) k/uL Lymphocytes # 0.5 L (1.0-4.8) k/uL POC Glucose (mg/dL) 114 H (75-99) mg/dL Crossmatch See Detail 04/11/19 04/11/19 04/12/19 Range/Units 17:16 20:27 07:19 WBC (3.8-10.6) k/uL RBC (4.30-5.90) m/uL Hgb (13.0-17.5) gm/dL Hct (39.0-53.0) % RDW (11.5-15.5) % Plt Count (150-450) k/uL Lymphocytes # (1.0-4.8) k/uL POC Glucose (mg/dL) 180 H 134 H 112 H (75-99) mg/dL Crossmatch Microbiology - Last 24 Hours (Table) 04/07/19 19:28 Blood Culture - Preliminary Blood No Growth after 96 hours 04/10/19 16:48 Blood Culture - Preliminary Blood No Growth after 24 hours Assessment and Plan Plan: 1. Acute metabolic encephalopathy possibly related to uremia and missed dialysis treatments, possibly related to narcotic use with [place] and MS Contin. CVA ruled out. Consult with neurology. CT angiogram of the brain and CT of the brain showed no acute process. Morphine has been discontinued and [place] on an a s-needed basis continued. 2. Acute hypoxic respiratory failure requiring intubation and mechanical ventilation. Consult with Dr. Wharton appreciated. Patient has been successfully extubated and transferred to [facility] floor. 3. Hypotension possibly related to sepsis of unclear etiology, possible abdominal source. Zosyn transitioned to meropenem by Dr Nicholson. 4. Acute non-ST elevated myocardial infarction. Cardiology consult. Heparin drip and aspirin discontinued. Continue Lipitor. Patient may require angiogram 1 stable and cleared by consultants. 5. Acute renal failure with acute hyperkalemia on top of End-stage renal disease secondary to missed dialysis treatments. Patient is normally scheduled on Friday. Nephrology consult appreciated. 6. Diabetes mellitus type 2, insulin requiring, with diabetic neuropathy. Diabetes uncontrolled secondary to hyperglycemia. Levemir increased and NovoLog scheduled every 6 hours added and NovoLog scale continued. 7. Chronic systolic heart failure. Continue dialysis 8. History of coronary artery disease status post stent in 2013. Continue Lipitor 80 mg at bedtime. 9. 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 10. History of recurrent pancreatitis secondary to alcohol abuse presenting with elevated lipase and possible component or source of sepsis with acute pancreatitis. 11. History of CVA. 12. Hyperlipidemia. 13. Hypertension, hypertensive cardiovascular disease. 14. Alcohol-induced liver disease with history of esophageal varices and underlying possible cirrhosis. Continue lactulose. 15. Chronic pancytopenia. Heparin drip, aspirin and Zosyn discontinued 16. DVT prophylaxis. Patient currently on heparin. 17. GI prophylaxis. Protonix. 18. Acute on chronic anemia. Patient was transfused 1 unit of packed RBCs. Stool for occult blood Discharge plan: [facility] tomorrow Impression and plan of care have been directed as dictated by the signing physician. Iram Love nurse practitioner acting as scribe for signing physician.
--- NOTE | 2019-04-13 10:35 | P.DS ---
Providers Date of admission: 04/07/19 21:30 Expected date of discharge: 04/13/19 Attending physician: Tyler Archer Consults: 04/07/19 21:27 Consult Physician Routine Consulting Provider: Ayden Nur Consult Reason/Comments: CVA Do you want consulting provider notified?: Yes Consult Physician Urgent Consulting Provider: Cristian Wharton Consult Reason/Comments: ICU Do you want consulting provider notified?: Already Contacted Consult Physician Urgent Consulting Provider: Marion Garcia Consult Reason/Comments: Emergent dialysis Do you want consulting provider notified?: Already Contacted 04/08/19 11:35 Consult Physician Stat Consulting Provider: Papa Ha Consult Reason/Comments: elevated troponins Do you want consulting provider notified?: Yes 04/08/19 11:41 Consult Physician Routine Consulting Provider: Tyler Nicholson Consult Reason/Comments: sepsis, OD Do you want consulting provider notified?: Yes 04/11/19 06:51 Consult Physician Routine Consulting Provider: Marion Rock Consult Reason/Comments: pancytopenia Do you want consulting provider notified?: Yes Primary care physician: Gonzales Drew [facility] Course: This is a 58-year-old male patient of Dr. Drew and Dr. 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 Patient had previous admission June 2017 for metabolic encephalopathy and acute hypoxic hypercarbic respiratory failure secondary to acute diastolic heart failure and hypercarbia for which patient was briefly intubated. Followed by another admiss ion for acute change in mental status, increased weakness worsening shortness of breath and cough. Patient was treated for sepsis, pancytopenia requiring transfusions, acute hypoxic hypercarbic respiratory failure requiring intubation secondary to fluid overload, acute on chronic systolic heart failure, possible gram-negative pneumonia that could not be ruled out during that admission. Patient had a prolonged course and was finally discharged on 06/15/2018. He was seen in June 2018 with pancytopenia secondary to chronic liver disease with bone marrow suppression from chronic alcohol use. He was seen by Dr. Major for esophageal varices and underlying possible cirrhosis as nodularity was noted on the liver with thrombocytopenia from hypersplenism. Patient was supposed to have EGD and colonoscopy and evaluation for possible kidney transplant. Patient presented to [facility] emergency center due to decreased level of consciousness. He apparently contacted his stating that he was not feeling well. He apparently skipped dialysis at least twice. According to the record, patient's found him to be quite sleepy and difficult to arouse. Patient was then brought into the hospital for evaluation. Patient is on [place] and morphine for chronic pain and was not determined patient had taken extra medication. Patient's apparently did not suspect a suicide attempt. The patient was given 3 doses of Narcan without much improvement. Lab work revealed potassium of 8.3, creatinine 85, creatinine 8.7. Blood sugar was 229. White cell count was at 16.2 with a hemoglobin was 12.9. The patient was given calcium gluconate. He also received D50 with insulin and albuterol for his hyperkalemia. CT of the brain and a CT angiogram that did not show any acute abnormalities. His EKG was sinus rhythm with a first-degree AV block. His troponin was at 0.7. Chest x-ray showed fluid overload/pulmonary edema. His lactic acid level was elevated at 3.1. Patient underwent emergent hemodialysis and transferred to the intensive care unit. Patient was initially on BiPAP but was subsequently intubated and placed on mechanical ventilation currently at tidal volume 500, FiO2 40, PEEP 5. The patient was then found to be hypotensive and was started on norepinephrine. WBC count went up to 18.3 and patient has been started on Zosyn and consult added for Dr. Nicholson. Patient also has the following consultants in place including cardiology for elevated troponins, nephrology for dialysis, Dr. Wharton for intensive care management, neurology to rule out CVA. 04/09: Patient remains in intensive care unit intubated and on mechanical ventilation with tidal volume 500, FiO2 40, PEEP 5. Patient's blood pressure has been labile and remains on norepinephrine. Temperature max 100.3. Heart rate 69, blood pressure currently 129/49. Repeat lab work reveals a normal weight, 7, hemoglobin 8.8 and platelet count of 54. BUN 34 and creatinine 4.21, sodium 135. Blood sugars running between 184 and 210. NovoLog scheduled insulin will be added along with increased dose of Levemir. Blood culture showing no growth at 24 hours and sputum and urine culture in progress. Repeat chest x-ray reveals right basilar atelectasis. Nephrology is following. On DrLucia Ha has discontinued aspirin and heparin due to thrombocytopenia. Echocardiogram reveals normal LV function. Patient may under goal coronary angiogram once stable and cleared from pulmonary medicine and infectious disease. Dr. Nicholson has discontinued Zosyn due to thrombocytopenia and transi tion to meropenem. 04/12: The patient was transfused 1 unit of packed RBCs for hemoglobin 6.9 with repeat at 7.4. No signs of active bleeding. Dr. Carmona has increased hydralazine and plan to hold lisinopril. He is undergoing hemodialysis today. Cardiology has signed off. Dr. Nicholson as indicated no need for further antibiotics at discharge. Patient has also been seen by oncology regarding th rombocytopenia and bone marrow suppression secondary to history of alcohol use. Patient is on Aranesp. Discussed discharge plan with the patient and he is agreeable to go to [facility] for rehab and arrangements most likely will be completed tomorrow. 04/13: The patient has been seen by Dr. Carmona with plan to resume his normally scheduled hemodialysis on Friday. Dr. Nicholson advises no antibiotics at discharge. Patient has been up and ambulating on his own today and feels stronger and able to manage at home. There are no rooms available at the [facility]. Patient is agreeable for discharge to home with homecare in place. Discharge diagnoses: 1. Acute metabolic encephalopathy possibly related to uremia and missed dialysis treatments on top of narcotic use with [place]ham and MS Contin. CVA ruled out. 2. Acute hypoxic respiratory failure requiring intubation and mechanical ventilation. 3. Hypotension possibly related to sepsis secondary to acute pancreatitis 4. Acute non-ST elevated myocardial infarction. 5. Acute renal failure with acute hyperkalemia on top of End-stage renal disease secondary to missed dialysis treatments. 6. Diabetes mellitus type 2, insulin requiring, with diabetic neuropathy. Diabetes uncontrolled secondary to hyperglycemia. 7. Chronic diastolic heart failure. 8. History of coronary artery disease status post stent in 2013. 9. 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 10. History of recurrent pancreatitis secondary to alcohol abuse presenting with possible component of sepsis with acute pancreatitis. 11. History of CVA. 12. Hyperlipidemia. 13. Hypertension, hypertensive cardiovascular disease. 14. Alcohol-induced liver disease with history of esophageal varices and underlying possible cirrhosis. 15. Chronic pancytopenia. 16. Acute on chronic anemia of chronic disease. Discharge plan: [facility] Impression and plan of care have been directed as dictated by the signing physician. Iram Love nurse practitioner acting as scribe for signing physician. Patient Condition at Discharge: Good Plan - Discharge Summary Discharge Rx Participant: No New Discharge Prescriptions: New hydrALAZINE HCL [Apresoline] 100 mg PO TID #180 tab amLODIPine [Norvasc] 5 mg PO DAILY #30 tab Continue Atorvastatin Calcium [Lipitor] 80 mg PO HS #30 tab ALPRAZolam [Xanax] 0.125 mg PO HS PRN PRN Reason: Insomnia HYDROcodone/APAP 10-325MG [[place] 10-325] 1 tab PO Q4H Docusate [Colace] 100 mg PO DAILY PRN cap PRN Reason: Constipation Lactulose [Cephulac] 30 gm PO DAILY #1 bottle Ferrous Sulfate [Feosol] 325 mg PO TID #90 tab Insulin Glargine,Hum.rec.anlog [Basaglar Kwikpen U-100] 20 unit SQ HS Insulin Aspart [NovoLOG Flexpen] 20 unit SQ AC-TID Fluticasone Nasal [place] [Flonase Nasal [place]] 2 spr EA NOSTRIL DAILY Omeprazole [PriLOSEC] 20 mg PO DAILY ARIPiprazole [Abilify] 5 mg PO DAILY Lubiprostone [Amitiza] 24 mcg PO BID Bumetanide [BUMEX] 2 mg PO BID Fluticasone/Salmeterol [Advair 250-50 Diskus] 1 puff INHALATION RT-BID Albuterol Sulfate [Proair Hfa] 2 puff INHALATION RT-QID PRN PRN Reason: Shortness Of Breath Nitroglycerin Sl Tabs [Nitrostat] 0.4 mg SUBLINGUAL Q5M PRN PRN Reason: Angina Dialyvite 1 tab PO DAILY Citalopram Hydrobromide [CeleXA] 10 mg PO DAILY #30 tab Gabapentin [Neurontin] 100 mg PO TID Changed Calcium Acetate [PhosLo] 667 mg PO AC-TID #0 Discontinued hydrALAZINE HCL [Apresoline] 50 mg PO TID #90 tab Metoprolol Tartrate [Lopressor] 150 mg PO BID Lisinopril 30 mg PO DAILY Morphine Sulfate ER [Ms Contin] 30 mg PO Q12HR Discharge Medication List Atorvastatin Calcium [Lipitor] 80 mg PO HS #30 tab 03/01/14 [Rx] ALPRAZolam [Xanax] 0.125 mg PO HS PRN 06/04/18 [History] HYDROcodone/APAP 10-325MG [[place] 10-325] 1 tab PO Q4H 06/04/18 [History] Docusate [Colace] 100 mg PO DAILY PRN cap 06/28/18 [Rx] Ferrous Sulfate [Feosol] 325 mg PO TID #90 tab 06/28/18 [Rx] Lactulose [Cephulac] 30 gm PO DAILY #1 bottle 06/28/18 [Rx] ARIPiprazole [Abilify] 5 mg PO DAILY 01/04/19 [History] Albuterol Sulfate [Proair Hfa] 2 puff INHALATION RT-QID PRN 01/04/19 [History] Bumetanide [BUMEX] 2 mg PO BID 01/04/19 [History] Dialyvite 1 tab PO DAILY 01/04/19 [History] Fluticasone Nasal [place] [Flonase Nasal [place]] 2 spr EA NOSTRIL DAILY 01/04/19 [History] Fluticasone/Salmeterol [Advair 250-50 Diskus] 1 puff INHALATION RT-BID 01/04/19 [History] Insulin Aspart [NovoLOG Flexpen] 20 unit SQ AC-TID 01/04/19 [History] Insulin Glargine,Hum.rec.anlog [Basaglar Kwikpen U-100] 20 unit SQ HS 01/04/19 [History] Lubiprostone [Amitiza] 24 mcg PO BID 01/04/19 [History] Nitroglycerin Sl Tabs [Nitrostat] 0.4 mg SUBLINGUAL Q5M PRN 01/04/19 [History] Omeprazole [PriLOSEC] 20 mg PO DAILY 01/04/19 [History] Citalopram Hydrobromide [CeleXA] 10 mg PO DAILY #30 tab 01/06/19 [Rx] Gabapentin [Neurontin] 100 mg PO TID 04/07/19 [History] Calcium Acetate [PhosLo] 667 mg PO AC-TID #0 04/13/19 [Rx] amLODIPine [Norvasc] 5 mg PO DAILY #30 tab 04/13/19 [Rx] hydrALAZINE HCL [Apresoline] 100 mg PO TID #180 tab 04/13/19 [Rx] Follow up Appointment(s)/Referral(s): [facility] [Provider Group] - 1 Week (Office will call with date and time) [facility], [NON-STAFF] - Gonzales Drew MD [Primary Care Provider] - 1 Week (office closed please call to make follow up appointment ) Patient Instructions/Handouts: Hyperkalemia (DC) Discharge Disposition: HOME WITH HOME HEALTH SERVICES
[2019-04-13 11:37] LABS: Glucose,Whole Blood 160 mg/dL (75-99)
--- NOTE | 2019-04-13 12:14 | P.PN ---
Subjective Patient is seen in follow for end-stage renal disease. He is maintained on hemodialysis on a Friday schedule. Hemoglobin improved after blood transfusion. No active bleeding. Feels better today. Tolerated hemodialysis well yesterday with 2.2 L ultrafiltration. Vital signs are stable. General: The patient appeared well nourished and normally developed. HEENT: Head exam is unremarkable. Neck is without jugular venous distension. LUNGS: Lungs are clear to auscultation and percussion. Breath sounds decreased. HEART: Rate and Rhythm are regular. First and second heart sounds normal. No murmurs, rubs or gallops. ABDOMEN: Abdominal exam reveals normal bowel sounds. Non-tender and non- distended. No evidence of peritonitis. EXTREMITITES: Trace edema. Objective - Vital Signs Vital signs: Vital Signs Temp 98.7 F 04/13/19 06:16 Pulse 83 04/13/19 06:16 Resp 17 04/13/19 06:16 BP 170/79 04/13/19 06:16 Pulse Ox 96 04/13/19 07:19 Intake & Output 04/12/19 04/13/19 04/13/19 18:59 06:59 18:59 Intake Total 400 500 Output Total 789 2702 Balance -389 -2202 Weight 96.8 kg Intake: Oral 400 Tube Feeding 0 Hemodialysis 500 Output: Urine 750 Post Void Residual 39 Hemodialysis 2702 Other: Voiding Method Bedside Commode Toilet Toilet Bedside Commode Bedside Commode # Voids 1 1 ABP, PAP, CO, CI - Last Documented Arterial Blood Pressure 122/42 - Labs CBC & Chem 7: 04/11/19 15:48 04/11/19 04:21 Labs: Abnormal Lab Results - Last 24 Hours (Table) 04/12/19 04/12/19 04/12/19 Range/Units 09:33 09:33 16:45 POC Glucose (mg/dL) 208 H (75-99) mg/dL Erythropoietin 60.14 H (2.00-30.00) mIU/mL Total Protein (PEP) 4.8 L (6.2-8.2) g/dL Rheumatoid Factor 64 H (0-15) IU/mL Free [place] LC, Quant 14.40 H (0.33-1.94) mg/dL Free Lambda LC, Quant 11.10 H (0.57-2.63) mg/dL 04/12/19 04/13/19 Range/Units 19:57 11:33 POC Glucose (mg/dL) 242 H 160 H (75-99) mg/dL Erythropoietin (2.00-30.00) mIU/mL Total Protein (PEP) (6.2-8.2) g/dL Rheumatoid Factor (0-15) IU/mL Free [place] LC, Quant (0.33-1.94) mg/dL Free Lambda LC, Quant (0.57-2.63) mg/dL Microbiology - Last 24 Hours (Table) 04/07/19 19:28 Blood Culture - Preliminary Blood No Growth after 120 hours 04/10/19 16:48 Blood Culture - Preliminary Blood No Growth after 48 hours Assessment and Plan Plan: Assessment: 1. End-stage renal disease maintained on hemodialysis on a Friday schedule. 2. Severe hyperkalemia on admission improved postdialysis. 3. Encephalopathy most likely related to medications, including MS Contin, [place]. 4. Chronic thrombocytopenia associated with splenomegaly. No active bleeding. 5. Insulin-dependent diabetes mellitus. 6. Hypertension with chronic kidney disease. 7. Mild volume overload. Improving with ultrafiltration. 8. Chronic kidney disease mineral bone disease maintained on PhosLo. 9. Anemia of chronic kidney disease. No active bleeding. Improved post transfusion. Maintained on Aranesp. Plan: Hemodialysis tomorrow. Avoid excess narcotics. MS Contin changed to as needed only. Add amlodipine 5 mg once daily.
[2019-04-13] MEDS ORDERED: amLODIPine 5 MG TAB PO SCH (12:15)
[2019-04-14 14:28] LABS: Albumin 2.61 g/dL (3.80-4.90)
[2019-04-15 08:14] LABS: Methylmalonic Acid 1.61 umol/L (<0.40)
--- NOTE | 2019-04-15 12:42 | CDI ---
Documentation Clarification Form Date: 04/15/2019 From: Sparkle Perdomo Phone: If questions call Kylie Gonzales @ [phone], Hours-8:30 am & 5 pm Ishmael Rebolledo Admit Date: 04/07/2019 9:30:00 PM Patient Name: Ismael Silva Visit Number: [id number] Discharge Date: 04/13/2019 1:55:00 PM ATTENTION: The Clinical Documentation Specialists (CDI) and [facility] Coding Staff appreciate your assistance in clarifying documentation. Please respond to the clarification below the line at the bottom and electronically sign. The CDI & [facility] Coding staff will review the response and follow-up if needed. Please note: Queries are made part of the Legal Health Record. If you have any questions, please contact the author of this message via ITS. Dr. Audie Webb The patient was documented with sepsis. The patient also had acute hypoxic respiratory failure, metabolic encephalopathy due to drugs and uremia, acute renal failure, NSTEMI, hypotension placed on vasopressor therapy, acute pancreatitis & alcoholism in remission. WBC-16.2 Lactic acid: 3.1 Lactic Ac Sepsis Rflx:yes Blood cultures: no growth Vitals signs on 05/09: BP-56/27, T-100.3, O2-71 Treatment: IV Zosyn, IV Norepinephrine, IV fluids ID Consult: yes In your professional opinion, please clarify if these findings signify one of the following conditions, whether the condition is POA: Condition Sepsis wo severe sepsis & shock Severe Sepsis Septic Shock Other, please specify Unable to determine Sepsis secondary to acute pancreatitis was on Meropenem present on admission. MTDD
== END 2019-04-13 13:55 | disposition home health service (06) | DRG 871 ==
LOC: EC 19:06 → 2SICU 21:30 → 4MS4W 04-11 13:13
PROVIDERS: ADMIT Internal Medicine Geriatric Medicine; ATTEND Internal Medicine Geriatric Medicine
PROC: 5A1D70Z Performance of Urinary Filtration, Intermittent, Less than 6 Hours Per Day (ICD-10-PCS; 2019-04-08)
PROC: 0BH17EZ Insertion of Endotracheal Airway into Trachea, Via Natural or Artificial Opening (ICD-10-PCS; 2019-04-08)
PROC: 5A1945Z Respiratory Ventilation, 24-96 Consecutive Hours (ICD-10-PCS; 2019-04-08)
PROC: 02HV33Z Insertion of Infusion Device into Superior Vena Cava, Percutaneous Approach (ICD-10-PCS; 2019-04-08)
PROC: 0D9670Z Drainage of Stomach with Drainage Device, Via Natural or Artificial Opening (ICD-10-PCS; 2019-04-08)
PROC: 05HD33Z Insertion of Infusion Device into Right Cephalic Vein, Percutaneous Approach (ICD-10-PCS; principal; 2019-04-09 14:44)
DX: A41.9 Sepsis, unspecified organism (principal); N18.6 End stage renal disease; J96.21 Acute and chronic respiratory failure with hypoxia; I21.4 Non-ST elevation (NSTEMI) myocardial infarction; G92 Toxic encephalopathy; K85.20 Alcohol induced acute pancreatitis without necrosis or infection; I69.351 Hemiplegia and hemiparesis following cerebral infarction affecting right dominant side; E87.2 Acidosis; I13.2 Hypertensive heart and chronic kidney disease with heart failure and with stage 5 chronic kidney disease, or end stage renal disease; N17.9 Acute kidney failure, unspecified; I50.32 Chronic diastolic (congestive) heart failure; D61.818 Other pancytopenia; K86.0 Alcohol-induced chronic pancreatitis; J98.11 Atelectasis; E11.22 Type 2 diabetes mellitus with diabetic chronic kidney disease; E11.42 Type 2 diabetes mellitus with diabetic polyneuropathy; E11.65 Type 2 diabetes mellitus with hyperglycemia; E87.5 Hyperkalemia; E83.9 Disorder of mineral metabolism, unspecified; K70.30 Alcoholic cirrhosis of liver without ascites; K70.0 Alcoholic fatty liver; D69.59 Other secondary thrombocytopenia; R16.1 Splenomegaly, not elsewhere classified; J44.9 Chronic obstructive pulmonary disease, unspecified; I25.5 Ischemic cardiomyopathy; D63.1 Anemia in chronic kidney disease; R40.2142 Coma scale, eyes open, spontaneous, at arrival to emergency department; R40.2362 Coma scale, best motor response, obeys commands, at arrival to emergency department; R40.2252 Coma scale, best verbal response, oriented, at arrival to emergency department; R47.1 Dysarthria and anarthria; E87.6 Hypokalemia; I44.0 Atrioventricular block, first degree; G47.33 Obstructive sleep apnea (adult) (pediatric); I25.10 Atherosclerotic heart disease of native coronary artery without angina pectoris; I83.93 Asymptomatic varicose veins of bilateral lower extremities; K21.9 Gastro-esophageal reflux disease without esophagitis; G89.4 Chronic pain syndrome; E78.5 Hyperlipidemia, unspecified; G24.9 Dystonia, unspecified; T40.605A Adverse effect of unspecified narcotics, initial encounter; F32.9 Major depressive disorder, single episode, unspecified; F41.9 Anxiety disorder, unspecified; F10.21 Alcohol dependence, in remission; M19.90 Unspecified osteoarthritis, unspecified site; M50.30 Other cervical disc degeneration, unspecified cervical region; Z91.15 Patient's noncompliance with renal dialysis; Z99.2 Dependence on renal dialysis; Z79.4 Long term (current) use of insulin; Z79.891 Long term (current) use of opiate analgesic; Z79.51 Long term (current) use of inhaled steroids; Z79.899 Other long term (current) drug therapy; Z99.89 Dependence on other enabling machines and devices; Z98.890 Other specified postprocedural states; Z90.49 Acquired absence of other specified parts of digestive tract; Z95.5 Presence of coronary angioplasty implant and graft; Z86.718 Personal history of other venous thrombosis and embolism; Z98.1 Arthrodesis status; Z87.891 Personal history of nicotine dependence; Z87.442 Personal history of urinary calculi; Z87.01 Personal history of pneumonia (recurrent); Z87.19 Personal history of other diseases of the digestive system; Z82.49 Family history of ischemic heart disease and other diseases of the circulatory system; Z80.9 Family history of malignant neoplasm, unspecified
CPT/HCPCS: 36410; 36415; 36556; 36600; 70450; 70496; 70498; 71045; 76937; 80048; 80053; 81001; 82330; 82553; 82607; 82668; 82746; 82747; 82805; 83605; 83690; 83735; 83883; 83921; 84100; 84165; 84484; 85025; 85610; 85730; 86038; 86334; 86431; 86706; 86850; 86900; 86901; 86920; 87040; 87070; 87086; 87205; 87340; 90935; 93005; 93306; 94002; 94003; 94640; 94644; 94760; 96365; 96375; 99291

== ENCOUNTER 2020-09-04 10:52 | Inpatient (IN) | payer MEDICARE ==
[2020-09-04] MEDS ORDERED: ALBUTEROL HFA INHALER INHALATION STA (11:40)
--- NOTE | 2020-09-04 11:41 | ED ---
General Adult HPI - General Chief complaint: Shortness of Breath Stated complaint: SOB Time Seen by Provider: 09/04/20 11:26 Source: patient, RN notes reviewed, old records reviewed Mode of arrival: wheelchair Limitations: no limitations - History of Present Illness Initial comments: 59-year-old male presenting with dyspnea, fever, cough. Patient was recently seen at outside facility where he did undergo a heart catheterization and patient states that there was no intervention and there was no blockage. Patient states he continues to have fever, myalgia, dyspnea. He is on hemodialysis receives hemodialysis Friday was a Friday. His last dialysis session was Friday. He denies any chest pain. - Related Data Home Medications Medication Instructions Recorded Confirmed ALPRAZolam [Xanax] 0.125 mg PO HS PRN 06/04/18 04/07/19 HYDROcodone/APAP 10-325MG [[place] 1 tab PO Q4H 06/04/18 04/07/19 10-325] ARIPiprazole [Abilify] 5 mg PO DAILY 01/04/19 04/07/19 Albuterol Sulfate [Proair Hfa] 2 puff INHALATION RT-QID PRN 01/04/19 04/07/19 Bumetanide [BUMEX] 2 mg PO BID 01/04/19 04/07/19 Dialyvite 1 tab PO DAILY 01/04/19 04/07/19 Fluticasone Nasal [place] [Flonase 2 spr EA NOSTRIL DAILY 01/04/19 04/07/19 Nasal [place]] Fluticasone/Salmeterol [Advair 1 puff INHALATION RT-BID 01/04/19 04/07/19 250-50 Diskus] Insulin Aspart [NovoLOG Flexpen] 20 unit SQ AC-TID 01/04/19 04/07/19 Insulin Glargine,Hum.rec.anlog 20 unit SQ HS 01/04/19 04/07/19 [Basaglar Kwikpen U-100] Lubiprostone [Amitiza] 24 mcg PO BID 01/04/19 04/07/19 Nitroglycerin Sl Tabs [Nitrostat] 0.4 mg SUBLINGUAL Q5M PRN 01/04/19 04/07/19 Omeprazole [PriLOSEC] 20 mg PO DAILY 01/04/19 04/07/19 Gabapentin [Neurontin] 100 mg PO TID 04/07/19 04/07/19 Previous Rx's Medication Instructions Recorded Atorvastatin Calcium [Lipitor] 80 mg PO HS #30 tab 03/01/14 Docusate [Colace] 100 mg PO DAILY PRN cap 06/28/18 Ferrous Sulfate [Feosol] 325 mg PO TID #90 tab 06/28/18 Lactulose [Cephulac] 30 gm PO DAILY #1 bottle 06/28/18 Citalopram Hydrobromide [CeleXA] 10 mg PO DAILY #30 tab 01/06/19 Calcium Acetate [PhosLo] 667 mg PO AC-TID #0 04/13/19 amLODIPine [Norvasc] 5 mg PO DAILY #30 tab 04/13/19 hydrALAZINE HCL [Apresoline] 100 mg PO TID #180 tab 04/13/19 Allergies Allergy/AdvReac Type Severity Reaction Status Date / Time No Known Allergies Allergy Verified 09/04/20 11:23 Review of Systems ROS Statement: Those systems with pertinent positive or pertinent negative responses have been documented in the HPI. ROS Other: All systems not noted in ROS Statement are negative. Past Medical History Past Medical History: Coronary Artery Disease (CAD), Chest Pain / Angina, Heart Failure, COPD, CVA/TIA, Diabetes Mellitus, GERD/Reflux, Hyperlipidemia, Hypertension, Osteoarthritis (OA), Renal Disease, Respiratory Disorder, Sleep A pnea/CPAP/BIPAP Additional Past Medical History / Comment(s): Known history of coronary artery disease, congestion heart failure with segmental wall motion abnormalities and e jection fraction of 30%, COPD, diabetes mellitus type 2, peripheral neuropathy, end-stage renal disease currently on hemodialysis 3 times a week MW, history of alcoholism, history of chronic pancreatitis, the patient has not drank alcohol for more than 70s, history of chronic CVA with some right-sided weakness, history of ARDS requiring intubation mechanical ventilation and was quite prolonged and the patient required tracheostomy tube insertion for that, history of splenomegaly, chronic anemia, chronic back pain, chronic neck pain, chronic narcotic dependence him a chronic thrombocytopenia, hypertension, history of esophageal varices without bleeding, history of opiate overdose History of Any Multi-Drug Resistant Organisms: None Reported Past Surgical History: Appendectomy, Back Surgery, Cholecystectomy, Heart Catheterization, Heart Catheterization With Stent Additional Past Surgical History / Comment(s): PCI with stents, tracheostomy, bladder stone removal, anterior cervical disc fusion/plate, jugular catheter insertion since removed, colonoscopy."dialysis graft site lt upper arm"-no bp or blood draw lt arm, peritoneal catheter-since removed. Past Anesthesia/Blood Transfusion Reactions: No Reported Reaction Date of Last Stent Placement:: 2013 Past Psychological History: Anxiety, Depression Smoking Status: Former smoker Past Alcohol Use History: None Reported Past Drug Use History: None Reported - Past Family History Father Family Medical History: Coronary Artery Disease (CAD), Myocardial Infarction ([place]) Additional Family Medical History / Comment(s): Father of a [place] at the age of 65yrs. Mother Family Medical History: Coronary Artery Disease (CAD), Myocardial Infarction ([place]) Additional Family Medical History / Comment(s): Mother of a [place] at the age of 55yrs. Brother(s) Family Medical History: Cancer Daughter(s) Family Medical History: Vascular Disorder (VSD) General Exam Limitations: no limitations General appearance: alert, in no apparent distress Head exam: Present: atraumatic, normocephalic Eye exam: Present: normal appearance, PERRL ENT exam: Present: normal exam Neck exam: Present: normal inspection. Absent: tenderness, meningismus Respiratory exam: Present: wheezes, decreased breath sounds. Absent: respiratory distress Cardiovascular Exam: Present: regular rate, normal rhythm GI/Abdominal exam: Present: soft. Absent: distended, tenderness, guarding Extremities exam: Present: normal capillary refill, pedal edema Neurological exam: Present: alert, oriented X3, CN II-XII intact. Absent: motor sensory deficit Psychiatric exam: Present: normal affect, normal mood Skin exam: Present: warm, dry, intact. Absent: cyanosis, diaphoretic Course Vital Signs 09/04/20 09/04/20 09/04/20 11:16 12:23 13:00 Temperature 99.2 F Pulse Rate 80 86 Respiratory 18 18 18 Rate Blood Pressure 124/58 116/71 O2 Sat by Pulse 94 L Oximetry EKG Findings - EKG Comments: EKG Findings:: EKG: Sinus rhythm with intraventricular conduction delay, rate of 78, SC interval 202, QRS duration 126, QTC 487, no ST segment elevation. Medical Decision Making - Medical Decision Making 59-year-old male with end-stage renal disease presenting with worsening dyspnea, cough, and subjective fever. X-ray showing either interstitial pneumonia versus fluid overload. Patient has been 3 days without dialysis and is scheduled for dialysis today which she was unable to make this session. He has a hemoglobin 7.6 which is stable. He has significant left foot abnormalities including hyperkalemia at 6.6 and hypocalcemia 6.9. He has an elevated BNP consistent with fluid overload. I did discuss case with Dr. Garcia who will arrange for urgent hemodialysis. - Lab Data Result diagrams: 09/04/20 12:10 09/04/20 12:10 Lab Results 09/04/20 09/04/20 09/04/20 Range/Units 12:10 12:10 12:10 WBC 7.4 (3.8-10.6) k/uL RBC 2.33 L (4.30-5.90) m/uL Hgb 7.6 L (13.0-17.5) gm/dL Hct 23.3 L (39.0-53.0) % MCV 100.0 (80.0-100.0) fL MCH 32.7 (25.0-35.0) pg MCHC 32.6 (31.0-37.0) g/dL RDW 16.9 H (11.5-15.5) % Plt Count 75 L (150-450) k/uL MPV 9.2 Neutrophils % 84 % Lymphocytes % 9 % Monocytes % 4 % Eosinophils % 1 % Basophils % 0 % Neutrophils # 6.2 (1.3-7.7) k/uL Lymphocytes # 0.7 L (1.0-4.8) k/uL Monocytes # 0.3 (0-1.0) k/uL Eosinophils # 0.1 (0-0.7) k/uL Basophils # 0.0 (0-0.2) k/uL Manual Slide Review Performed Poikilocytosis Slight Anisocytosis Slight Macrocytosis Slight PT 10.7 (9.0-12.0) sec INR 1.0 (<1.2) APTT 19.7 L (22.0-30.0) sec Sodium 134 L (137-145) mmol/L Potassium 6.6 H* (3.5-5.1) mmol/L Chloride 96 L (98-107) mmol/L Carbon Dioxide 24 (22-30) mmol/L Anion Gap 14 mmol/L BUN 81 H (9-20) mg/dL Creatinine 9.72 H* (0.66-1.25) mg/dL Est GFR (CKD-EPI)AfAm 6 (>60 ml/min/1.73 sqM) Est GFR (CKD-EPI)NonAf 5 (>60 ml/min/1.73 sqM) Glucose 200 H (74-99) mg/dL Calcium 6.9 L (8.4-10.2) mg/dL Magnesium 2.2 (1.6-2.3) mg/dL Total Bilirubin 2.4 H (0.2-1.3) mg/dL AST 44 (17-59) U/L ALT 30 (4-49) U/L Alkaline Phosphatase 70 (38-126) U/L NT-Pro-B Natriuret Pep pg/mL Total Protein 6.6 (6.3-8.2) g/dL Albumin 3.8 (3.5-5.0) g/dL Coronavirus (PCR) (Not Detectd) 09/04/20 09/04/20 Range/Units 12:10 12:10 WBC (3.8-10.6) k/uL RBC (4.30-5.90) m/uL Hgb (13.0-17.5) gm/dL Hct (39.0-53.0) % MCV (80.0-100.0) fL MCH (25.0-35.0) pg MCHC (31.0-37.0) g/dL RDW (11.5-15.5) % Plt Count (150-450) k/uL MPV Neutrophils % % Lymphocytes % % Monocytes % % Eosinophils % % Basophils % % Neutrophils # (1.3-7.7) k/uL Lymphocytes # (1.0-4.8) k/uL Monocytes # (0-1.0) k/uL Eosinophils # (0-0.7) k/uL Basophils # (0-0.2) k/uL Manual Slide Review Poikilocytosis Anisocytosis Macrocytosis PT (9.0-12.0) sec INR (<1.2) APTT (22.0-30.0) sec Sodium (137-145) mmol/L Potassium (3.5-5.1) mmol/L Chloride (98-107) mmol/L Carbon Dioxide (22-30) mmol/L Anion Gap mmol/L BUN (9-20) mg/dL Creatinine (0.66-1.25) mg/dL Est GFR (CKD-EPI)AfAm (>60 ml/min/1.73 sqM) Est GFR (CKD-EPI)NonAf (>60 ml/min/1.73 sqM) Glucose (74-99) mg/dL Calcium (8.4-10.2) mg/dL Magnesium (1.6-2.3) mg/dL Total Bilirubin (0.2-1.3) mg/dL AST (17-59) U/L ALT (4-49) U/L Alkaline Phosphatase (38-126) U/L NT-Pro-B Natriuret Pep 40294 pg/mL Total Protein (6.3-8.2) g/dL Albumin (3.5-5.0) g/dL Coronavirus (PCR) Not Detected (Not Detectd) Critical Care Time Critical Care Time: Yes Total Critical Care Time: 35 Disposition Clinical Impression: ESRD (end stage renal disease), Pneumonia, Fluid overload Disposition: ADMITTED IP TO THIS [facility] Condition: Stable Is patient prescribed a controlled substance at d/c from ED?: No Referrals: Gonzales Drew MD [Primary Care Provider] - 1-2 days Decision to Admit Reason: Admit from EC Decision Date: 09/04/20 Decision Time: 13:58
--- NOTE | 2020-09-04 12:48 | XR ---
EXAMINATION TYPE: XR chest 1V portable DATE OF EXAM: 09/04/2020 Comparison: 04/10/2019 Clinical History: 59-year-old male cough Findings: Heart upper limits of normal in size. Diffuse interstitial opacities. More confluent patchy airspace disease throughout the right lung. No pleural effusion. ACDF hardware. Impression: Bilateral interstitial infiltrates and more confluent airspace disease on the right. Atypical/COVID p neumonia, aspiration, hypersensitivity pneumonitis, etc. are in the differential.
[2020-09-04 13:05] LABS: Albumin 3.8 g/dL (3.5-5.0); Calcium 6.9 mg/dL (8.4-10.2); Magnesium 2.2 mg/dL (1.6-2.3); Total Bilirubin 2.4 mg/dL (0.2-1.3); Total Protein 6.6 g/dL (6.3-8.2)
[2020-09-04 13:14] LABS: Potassium 6.6 mmol/L (3.5-5.1)
[2020-09-04] MEDS ORDERED: AZITHROMYCIN 500 MG in SODIUM CHLORIDE 0.9% 250 ML IVPB STA (13:22)
[2020-09-04] MEDS ORDERED: cefTRIAXone IN SWFI 1,000 MG/10 ML SYRINGE IVP STA (13:22)
[2020-09-04 13:24] LABS: Anisocytosis Slight; Basophils % (A) 0 %; Eosinophils # (A) 0.1 k/uL (0-0.7); Eosinophils % (A) 1 %; HCT 23.3 % (39.0-53.0); HGB 7.6 gm/dL (13.0-17.5); Lymphocytes # (A) 0.7 k/uL (1.0-4.8); Lymphocytes % (A) 9 %; MCH 32.7 pg (25.0-35.0); MCHC 32.6 g/dL (31.0-37.0); Macrocytosis Slight; Mean Platelet Volume 9.2; Monocytes # (A) 0.3 k/uL (0-1.0); Monocytes % (A) 4 %; Neutrophils # (A) 6.2 k/uL (1.3-7.7); Neutrophils % (A) 84 %; Poikilocytosis Slight; RBC 2.33 m/uL (4.30-5.90); RDW 16.9 % (11.5-15.5); WBC 7.4 k/uL (3.8-10.6)
[2020-09-04 13:42] LABS: Prothrombin Time 10.7 sec (9.0-12.0)
[2020-09-04 13:51] LABS: Platelet Count 75 k/uL (150-450)
[2020-09-04] MEDS ORDERED: MORPHINE SULFATE 4 MG/ML SYRINGE IV PRN (13:54)
[2020-09-04] MEDS ORDERED: ACETAMINOPHEN TAB 325 MG TAB PO PRN (13:54)
[2020-09-04] MEDS ORDERED: NALOXONE 0.4 MG/ML 1 ML VIAL IV PRN (13:54)
[2020-09-04 13:55] LABS: Partial Thromboplastin Time 19.7 sec (22.0-30.0)
[2020-09-04] MEDS ORDERED: CALCIUM ACETATE 667 MG TAB PO PRN (14:20)
[2020-09-04] MEDS ORDERED: ALPRAZolam 0.25 MG TAB PO PRN (14:20)
[2020-09-04] MEDS ORDERED: DOCUSATE 100 MG CAP PO PRN (14:20)
[2020-09-04 14:49] LABS: Calcium 6.5 mg/dL (8.4-10.2)
[2020-09-04 15:11] LABS: Potassium 6.3 mmol/L (3.5-5.1)
[2020-09-04] MEDS: HYDROcodone/APAP 10-325MG 1 EACH TAB PO SCH ×2 (15:44→18:57)
[2020-09-04] MEDS: PANTOPRAZOLE 40 MG TABLET PO SCH (15:44)
[2020-09-04] MEDS: MORPHINE SULFATE ER 30 MG TABLET PO SCH ×2 (15:44→21:24)
[2020-09-04] MEDS: ALBUTEROL HFA INHALER INHALATION PRN (16:23)
[2020-09-04 18:21] LABS: Glucose,Whole Blood 167 mg/dL (75-99)
[2020-09-04] MEDS: KETOROLAC 0.5% OPHTH DROPS 5 ML BTL BOTH EYES SCH ×2 (18:57→21:25)
[2020-09-04] MEDS: INSULIN ASPART (NovoLOG) 100 UNIT/ML VIAL SQ SCH ×3 (19:01→21:26)
[2020-09-04] MEDS: carvediloL 12.5 MG TAB PO SCH (19:02)
[2020-09-04 20:06] LABS: Glucose,Whole Blood 185 mg/dL (75-99)
--- NOTE | 2020-09-04 20:06 | P.HPIM ---
History of Present Illness H&P Date: 09/04/20 Chief Complaint: severe dysnea and shortness of breath, fluid overload, right- sided pneumon 59-year-old male one of Dr. Drew's patient with past medical history of CAD, COPD, CVA, type 2 diabetes, end-stage renal disease on hemodialysis 3 times a week with severe cardiomyopathy with ejection fraction of 30% was seen a leakage tester at [place] Dr. Vernon who presented to the emergency department today with 2 weeks not feeling well with severe shortness of breath and dyspnea with minimum exertion patient was supposed to go to dialysis today and was feeling very bad not been able to ambulate or walk and very weak and tired with severe dyspnea with minimal exertion. Ended up coming to the emergency department at [facility] he was and worsening renal failure, fluid overload, severe hyperkalemia, chest x-ray showed fluid overload with infiltrate in the right lower lobe. Patient was giving 500 mg of azithromycin started on IV diuretics and call dialysis for emergency. Patient will be seen nephrology was admitted for the above problem. Review of Systems CONSTITUTIONAL: Well-developed no acute respiratory distress. EYES: No icterus sclerae, no conjunctivitis. EARS, NOSE, MOUTH, THROAT, and FACE: No sore throat, lymphadenopathy, carotid bruits or deformity. RESPIRATORY: Positive shortness of breath cough and wheezes. CARDIOVASCULAR: Positive PND orthopnea palpitation with no real angina but worsening CHF. GASTROINTESTINAL: No Abd pain, Nausea or vomiting, no Diarrhea or constipation, No GI Bleed, no distention or masses. GENITOURINARY: Negative for Hematuria or UTI, no kidney stones. INTEGUMENT/BREAST: Negative for any muscular injury with mild osteoarthritis.. HEMATOLOGIC/LYMPHATIC: Negative for bleed or purpura. Chronic anemia MUSCULOSKELTAL: Negative for Myalgia or arthralgia. Chronic arthralgia NEURLOGICAL: No LOC, Sz or syncope, blurred vision dizziness or abnormality.. Mild abnormal bouncing gait BEHAVIORAL/PSYCH: Negative. ENDOCRINE: Negative. Social history: patient quit smoking 1990 used smoke over pack a day for 23 years, does not drink alcohol, is and lives with his is on disability and is on dialysis 3 times a week. Family history: Patient father a 64 from [place], mother dying at age 55 from CAD and [place], patient had 7 siblings 5 of them passed from CAD, 3 children with no major medical problem. Past Medical History Past Medical History: Coronary Artery Disease (CAD), Chest Pain / Angina, Heart Failure, COPD, CVA/TIA, Diabetes Mellitus, GERD/Reflux, Hyperlipidemia, Hypertension, Osteoarthritis (OA), Renal Disease, Respiratory Disorder, Sleep Apnea/CPAP/BIPAP Additional Past Medical History / Comment(s): Known history of coronary artery disease, congestion heart failure with segmental wall motion abnormalities and ejection fraction of 30%, COPD, diabetes mellitus type 2, peripheral neuropathy, end-stage renal disease currently on hemodialysis 3 times a week MW, history of alcoholism, history of chronic pancreatitis, the patient has not drank alcohol for more than 70s, history of chronic CVA with some right-sided weakness, history of ARDS requiring intubation mechanical ventilation and was quite pr olonged and the patient required tracheostomy tube insertion for that, history of splenomegaly, chronic anemia, chronic back pain, chronic neck pain, chronic narcotic dependence him a chronic thrombocytopenia, hypertension, history of esophageal varices without bleeding, history of opiate overdose History of Any Multi-Drug Resistant Organisms: None Reported Past Surgical History: Appendectomy, Back Surgery, Cholecystectomy, Heart Catheterization, Heart Catheterization With Stent Additional Past Surgical History / Comment(s): PCI with stents, tracheostomy, bladder stone removal, anterior cervical disc fusion/plate, jugular catheter insertion since removed, colonoscopy."dialysis graft site lt upper arm"-no bp or blood draw lt arm, peritoneal catheter-since removed. Past Anesthesia/Blood Transfusion Reactions: No Reported Reaction Date of Last Stent Placement:: 2013 Past Psychological History: Anxiety, Depression Additional Psychological History / Comment(s): Pt resides with his spouse and their 2 sons, one of which is a handicapped minor and the other an adult. Pt has a glucometer. He drives. Smoking Status: Former smoker Past Alcohol Use History: None Reported Additional Past Alcohol Use History / Comment(s): Quit smoking 1990, smoked approx 23 yrs 1ppd, no alcohol for over 7 yrs. Past Drug Use History: None Reported - Past Family History Father Family Medical History: Coronary Artery Disease (CAD), Myocardial Infarction ([place]) Additional Family Medical History / Comment(s): Father of a [place] at the age of 65yrs. Mother Family Medical History: Coronary Artery Disease (CAD), Myocardial Infarction ([place]) Additional Family Medical History / Comment(s): Mother of a [place] at the age of 55yrs. Brother(s) Family Medical History: Cancer Daughter(s) Family Medical History: Vascular Disorder (VSD) Medications and Allergies Home Medications Medication Instructions Recorded Confirmed Type Atorvastatin Calcium [Lipitor] 80 mg PO HS #30 tab 03/01/14 09/04/20 Rx ALPRAZolam [Xanax] 0.25 mg PO DAILY PRN 06/04/18 09/04/20 History HYDROcodone/APAP 10-325MG [[place] 1 tab PO Q4H 06/04/18 09/04/20 History 10-325] ARIPiprazole [Abilify] 5 mg PO HS 01/04/19 09/04/20 History Bumetanide [BUMEX] 4 mg PO BID 01/04/19 09/04/20 History Dialyvite 1 tab PO HS 01/04/19 09/04/20 History Insulin Aspart [NovoLOG Flexpen] 20 unit SQ AC-TID 01/04/19 09/04/20 History Omeprazole [PriLOSEC] 20 mg PO DAILY@1500 01/04/19 09/04/20 History Aspirin EC [Ecotrin Low Dose] 81 mg PO HS 09/04/20 09/04/20 History Calcium Acetate [PhosLo] 1,334 mg PO AC-TID PRN 09/04/20 09/04/20 History Carvedilol [Coreg] 12.5 mg PO BID 09/04/20 09/04/20 History Docusate [Colace] 100 mg PO BID PRN 09/04/20 09/04/20 History Isosorbide Mononitrate ER [Imdur] 30 mg PO DAILY 09/04/20 09/04/20 History Ketorolac 0.5% Ophth Soln [Acular] 1 drop BOTH EYES TID 09/04/20 09/04/20 History Morphine Sulfate [Ms Contin] 30 mg PO Q12H 09/04/20 09/04/20 History PARoxetine [Paxil] 20 mg PO HS 09/04/20 09/04/20 History Prednisolone Acetate/Pf See Taper BOTH EYES DIRECTED 09/04/20 09/04/20 History [Prednisolone Acet 1% Eye Drop] amLODIPine [Norvasc] 5 mg PO HS 09/04/20 09/04/20 History Allergies Allergy/AdvReac Type Severity Reaction Status Date / Time No Known Allergies Allergy Verified 09/04/20 14:11 Physical Exam Vitals: Vital Signs Temp Pulse Pulse Resp BP BP Pulse Ox 09/04/20 18:23 97.9 F 70 22 94/58 09/04/20 18:15 76 18 129/59 93 L 09/04/20 17:54 60 20 100/59 96 09/04/20 14:59 98.9 F 71 20 116/70 97 09/04/20 14:00 18 09/04/20 13:00 86 18 116/71 09/04/20 12:23 18 09/04/20 11:16 99.2 F 80 18 124/58 94 L Intake and Output 09/04/20 09/04/20 09/04/20 06:59 14:59 22:59 Output Total 1999 Balance -1999 Output: Hemodialysis 1999 Other: Weight 97.976 kg 97.976 kg General Appearance: Alert, cooperative, no distress, appears stated age. Neck HEENT: Supple, no lymphadenopathy, no thyroid enlargement, no carotid bruits. Lungs: Decreased breath some bilateral fine rhonchi has mild crackles in the rig ht base positive mild expiratory wheezes. Chest Wall: Decrease expansion with deep inspiration no tenderness and no deformity was found on exam, no costochondral pain or discomfort. Heart: Regular rate and rhythm, S1, S2 positive S3 positive JVD with systolic murmur. Back: Symmetric, no curvature, ROM normal, no CVA tenderness. Abdomen: Soft, non-tender, bowel sounds active all four quadrants, no masses, no organomegaly. Extremities: Extremities normal, atraumatic, no cyanosis trace edema Pulses: 2+ and symmetric. Skin: Skin color, texture, tugor normal, no rashes or lesions. Neurologic: Alert oriented x3 cranial nerves II through XII intact, no motor deficit, no abnormal balance or gait. Results CBC & Chem 7: 09/05/20 08:10 09/05/20 08:10 Labs: Abnormal Lab Results - Last 24 Hours (Table) 09/04/20 09/04/20 09/04/20 Range/Units 12:10 12:10 12:10 RBC 2.33 L (4.30-5.90) m/uL Hgb 7.6 L (13.0-17.5) gm/dL Hct 23.3 L (39.0-53.0) % RDW 16.9 H (11.5-15.5) % Plt Count 75 L (150-450) k/uL Lymphocytes # 0.7 L (1.0-4.8) k/uL APTT 19.7 L (22.0-30.0) sec Sodium 134 L (137-145) mmol/L Potassium 6.6 H* (3.5-5.1) mmol/L Chloride 96 L (98-107) mmol/L BUN 81 H (9-20) mg/dL Creatinine 9.72 H* (0.66-1.25) mg/dL Glucose 200 H (74-99) mg/dL POC Glucose (mg/dL) (75-99) mg/dL Calcium 6.9 L (8.4-10.2) mg/dL Total Bilirubin 2.4 H (0.2-1.3) mg/dL 09/04/20 09/04/20 Range/Units 14:22 18:20 RBC (4.30-5.90) m/uL Hgb (13.0-17.5) gm/dL Hct (39.0-53.0) % RDW (11.5-15.5) % Plt Count (150-450) k/uL Lymphocytes # (1.0-4.8) k/uL APTT (22.0-30.0) sec Sodium 133 L (137-145) mmol/L Potassium 6.3 H* (3.5-5.1) mmol/L Chloride 95 L (98-107) mmol/L BUN 80 H (9-20) mg/dL Creatinine 9.85 H* (0.66-1.25) mg/dL Glucose 159 H (74-99) mg/dL POC Glucose (mg/dL) 167 H (75-99) mg/dL Calcium 6.5 L (8.4-10.2) mg/dL Total Bilirubin (0.2-1.3) mg/dL Thrombosis Risk Factor Assmnt - Choose All That Apply Each Factor Represents 1 point: Abnormal pulmonary function (COPD), Heart failure (<1month) Each Risk Factor Represents 2 Points: Age 61-74 years Thrombosis Risk Factor Assessment Total Risk Factor Score: 4 Thrombosis Risk Factor Assessment Level: Moderate Risk Assessment and Plan Assessment: 1 acute respiratory failure: Combination of fluid overload, COPD exacerbation, CHF exacerbation and right-sided pneumonia with treat underlying disease. 2 fluid overload: Patient will be going for dialysis we'll consult nephrology as well and maybe adjust on dialysis, the fluid taking out with dialysis through the week. 3 worsening congestive heart failure: Mostly systolic dysfunction with ejection fraction of 20-30%, repeat echocardiogram patient is seen his leakage tester apparently outside area and no intervention or any procedure done recently. 4 right lower lobe pneumonia: Patient will be on azithromycin and Rocephin cont inue medication repeat chest x-ray after the second dialysis. 5 COPD with mild exacerbation: Patient will be on DuoNeb and Pulmicort continue O2. 6 obstructive sleep apnea: Patient has not been using his CPAP at home lately. 7 end-stage renal disease: On hemodialysis 3 times a week resume dialysis. 8 type 2 diabetes on insulin: Resume NovoLog and basically her continue Accu- Chek with sliding scales coverage. 9 hypertension: Continue patient on hydralazine 100 mg 3 times a day, amlodipine 5 mg a day. 10 hyperlipidemia: Continue atorvastatin 80 mg daily. 11 severe depression: Patient remain on Abilify, alprazolam and citalopram. 12 chronic pain management: Patient has been on hydrocodone and gabapentin. 13 Anemia: will repeat CBC oif Hgb is low might need Transfusion and still on Pr ocrit weekly. recheck Hemoccult. 14 GI prophylaxis: Remain on Prilosec 20 mg a day. 15 DVT prophylaxis: Patient will be on heparin subcutaneous. CODE STATUS: Full code. Admit patient to the inpatient service for more than 2 night stay.
[2020-09-04] MEDS: ASPIRIN 81 MG PO SCH (21:25)
[2020-09-04] MEDS: ARIPiprazole 5 MG TAB PO SCH (21:25)
[2020-09-04] MEDS: FOLIC ACID-VIT B COMPLEX-VIT C 1 CAP PO SCH (21:25)
[2020-09-04] MEDS: ATORVASTATIN 80 MG TAB PO SCH (21:25)
[2020-09-04] MEDS: BUMETANIDE 1 MG TAB PO SCH (21:25)
[2020-09-04] MEDS: PARoxetine 20 MG TAB PO SCH (21:25)
[2020-09-04] MEDS: amLODIPine 5 MG TAB PO SCH (21:26)
[2020-09-05] MEDS: HYDROcodone/APAP 10-325MG 1 EACH TAB PO SCH ×6 (03:40→18:28)
[2020-09-05 06:05] LABS: Glucose,Whole Blood 187 mg/dL (75-99)
[2020-09-05] MEDS: carvediloL 12.5 MG TAB PO SCH ×2 (06:54→17:00)
[2020-09-05] MEDS: INSULIN ASPART (NovoLOG) 100 UNIT/ML VIAL SQ SCH ×6 (06:54→17:01)
[2020-09-05] MEDS: ALBUTEROL HFA INHALER INHALATION PRN ×2 (09:00→12:04)
[2020-09-05 09:03] LABS: Calcium 6.9 mg/dL (8.4-10.2); Potassium 5.5 mmol/L (3.5-5.1)
[2020-09-05] MEDS: ISOSORBIDE MONONITRATE ER 30 MG TAB.ER.24H PO SCH (09:10)
[2020-09-05] MEDS: BUMETANIDE 1 MG TAB PO SCH ×2 (09:10→19:29)
[2020-09-05] MEDS: KETOROLAC 0.5% OPHTH DROPS 5 ML BTL BOTH EYES SCH ×2 (09:11→15:04)
[2020-09-05] MEDS: MORPHINE SULFATE ER 30 MG TABLET PO SCH ×2 (09:13→19:29)
[2020-09-05 09:21] LABS: ABG Base Excess 1.5 mmol/L; ABG HCO3 28 mmol/L (21-25); ABG Oxygen Saturation 96.1 % (94-97); ABG PCO2 60 mmHg (35-45); ABG PH 7.28 (7.35-7.45); ABG PO2 72 mmHg (83-108); ABG TCO2 30 mmol/L (19-24); Allen Test Performed? Yes
[2020-09-05 09:34] LABS: Anisocytosis Slight; HCT 20.4 % (39.0-53.0); Hypochromasia Slight; MCH 33.4 pg (25.0-35.0); MCHC 33.1 g/dL (31.0-37.0); Macrocytosis Slight; Mean Platelet Volume 8.3; Poikilocytosis Slight; RBC 2.02 m/uL (4.30-5.90); RDW 16.8 % (11.5-15.5); WBC 5.6 k/uL (3.8-10.6)
[2020-09-05 09:40] LABS: HGB 6.7 gm/dL (13.0-17.5); Platelet Count 58 k/uL (150-450)
[2020-09-05 11:25] LABS: Glucose,Whole Blood 224 mg/dL (75-99)
--- NOTE | 2020-09-05 11:39 | P.CNPUL ---
History of Present Illness Consult date: 09/05/20 Requesting physician: Tyler Archer Reason for consult: dyspnea, pneumonia, obstructive sleep apnea Chief complaint: Shortness of breath History of present illness: 59-year-old male admitted to the hospital on 09/04/2020 at 1052. He apparently comes in complaining of shortness of breath. In addition, he apparently complained of fever and cough. Not a particularly good historian. He apparentl y had a recent heart catheterization at outside facility. There was no interventions done. The patient has a history of sleep apnea syndrome, but his CPAP machine is broken. He is currently not using it. The patient is also on 3 time a week hemodialysis. His last dialysis session was last Friday. The patient's chest x-ray shows fluid overload, and increased consolidation in the right lower lobe, intentionally consistent with pneumonia. The patient is not particularly compliant according to his primary care provider. He is a full code. A blood gas was done. I did recommend that they turn down his oxygen from 4 L to 3 L, and gave orders for BiPAP at nighttime, with an IPAP of 12, EPA P of 5, and 30% FiO2. He appears to be a CO2 retainer and saturations between 88-92% are probably okay. The patient has a history of coronary artery disease, angina pectoris, congestive heart failure, COPD, CVA, diabetes mellitus, gastroesophageal reflux disease, hyperlipidemia, essential hypertension, DJD, renal failure, and sleep apnea syndrome. Review of Systems REVIEW OF SYSTEMS: CONSTITUTIONAL: Fever NEUROLOGIC: [ Negative.] HEENT: [ Negative.] CARDIAC: [Negative.] PULMONARY: Shortness of breath, nonproductive cough. GI: [Negative.] : [Negative.] RHEUMATOLOGIC: [ Negative.] IMMUNOLOGIC: [ Negative.] ENDOCRINE: [Negative. ] DERMATOLOGIC: [Negative.] Past Medical History Past Medical History: Coronary Artery Disease (CAD), Chest Pain / Angina, Heart Failure, COPD, CVA/TIA, Diabetes Mellitus, GERD/Reflux, Hyperlipidemia, Hypertension, Osteoarthritis (OA), Renal Disease, Respiratory Disorder, Sleep Apnea/CPAP/BIPAP Additional Past Medical History / Comment(s): Known history of coronary artery disease, congestion heart failure with segmental wall motion abnormalities and ejection fraction of 30%, COPD, diabetes mellitus type 2, peripheral neuropathy, end-stage renal disease currently on hemodialysis 3 times a week MW, history of alcoholism, history of chronic pancreatitis, the patient has not drank alcohol for more than 70s, history of chronic CVA with some right-sided weakness, history of ARDS requiring intubation mechanical ventilation and was quite prolonged and the patient required tracheostomy tube insertion for that, history of splenomegaly, chronic anemia, chronic back pain, chronic neck pain, chronic narcotic dependence him a chronic thrombocytopenia, hypertension, history of esophageal varices without bleeding, history of opiate overdose History of Any Multi-Drug Resistant Organisms: None Reported Past Surgical History: Appendectomy, Back Surgery, Cholecystectomy, Heart Catheterization, Heart Catheterization With Stent Additional Past Surgical History / Comment(s): PCI with stents, tracheostomy, bladder stone removal, anterior cervical disc fusion/plate, jugular catheter insertion since removed, colonoscopy."dialysis graft site lt upper arm"-no bp or blood draw lt arm, peritoneal catheter-since removed. Past Anesthesia/Blood Transfusion Reactions: No Reported Reaction Date of Last Stent Placement:: 2013 Past Psychological History: Anxiety, Depression Additional Psychological History / Comment(s): Pt resides with his spouse and their 2 sons, one of which is a handicapped minor and the other an adult. Pt has a glucometer. He drives. Smoking Status: Former smoker Past Alcohol Use History: None Reported Additional Past Alcohol Use History / Comment(s): Quit smoking 1990, smoked approx 23 yrs 1ppd, no alcohol for over 7 yrs. Past Drug Use History: None Reported - Past Family History Father Family Medical History: Coronary Artery Disease (CAD), Myocardial Infarction (MO) Additional Family Medical History / Comment(s): Father of a MO at the age of 65yrs. Mother Family Medical History: Coronary Artery Disease (CAD), Myocardial Infarction (MO) Additional Family Medical History / Comment(s): Mother of a MO at the age of 55yrs. Brother(s) Family Medical History: Cancer Daughter(s) Family Medical History: Vascular Disorder (VSD) Medications and Allergies Home Medications Medication Instructions Recorded Confirmed Type Atorvastatin Calcium [Lipitor] 80 mg PO HS #30 tab 03/01/14 09/04/20 Rx ALPRAZolam [Xanax] 0.25 mg PO DAILY PRN 06/04/18 09/04/20 History HYDROcodone/APAP 10-325MG [[place] 1 tab PO Q4H 06/04/18 09/04/20 History 10-325] ARIPiprazole [Abilify] 5 mg PO HS 01/04/19 09/04/20 History Bumetanide [BUMEX] 4 mg PO BID 01/04/19 09/04/20 History Dialyvite 1 tab PO HS 01/04/19 09/04/20 History Insulin Aspart [NovoLOG Flexpen] 20 unit SQ AC-TID 01/04/19 09/04/20 History Omeprazole [PriLOSEC] 20 mg PO DAILY@1500 01/04/19 09/04/20 History Aspirin EC [Ecotrin Low Dose] 81 mg PO HS 09/04/20 09/04/20 History Calcium Acetate [PhosLo] 1,334 mg PO AC-TID PRN 09/04/20 09/04/20 History Carvedilol [Coreg] 12.5 mg PO BID 09/04/20 09/04/20 History Docusate [Colace] 100 mg PO BID PRN 09/04/20 09/04/20 History Isosorbide Mononitrate ER [Imdur] 30 mg PO DAILY 09/04/20 09/04/20 History Ketorolac 0.5% Ophth Soln [Acular] 1 drop BOTH EYES TID 09/04/20 09/04/20 Hi story Morphine Sulfate [Ms Contin] 30 mg PO Q12H 09/04/20 09/04/20 History PARoxetine [Paxil] 20 mg PO HS 09/04/20 09/04/20 History Prednisolone Acetate/Pf See Taper BOTH EYES DIRECTED 09/04/20 09/04/20 History [Prednisolone Acet 1% Eye Drop] amLODIPine [Norvasc] 5 mg PO HS 09/04/20 09/04/20 History Allergies Allergy/AdvReac Type Severity Reaction Status Date / Time No Known Allergies Allergy Verified 09/04/20 14:11 Physical Exam Osteopathic Statement: *. No significant issues noted on an osteopathic structural exam other than those noted in the History and Physical/Consult. Vitals: Vital Signs Temp Pulse Pulse Resp BP BP Pulse Ox 09/05/20 09:01 96 09/05/20 08:00 101.5 F H 78 18 132/72 96 09/05/20 06:10 88 20 09/05/20 04:00 98.1 F 88 20 116/60 93 L 09/05/20 01:19 76 22 09/05/20 00:00 73 20 106/52 93 L 09/04/20 20:36 88 L 09/04/20 20:00 98.2 F 88 18 110/56 95 09/04/20 18:23 97.9 F 70 22 94/58 09/04/20 18:15 76 18 129/59 93 L 09/04/20 17:54 60 20 100/59 96 09/04/20 14:59 98.9 F 71 20 116/70 97 09/04/20 14:00 18 09/04/20 13:00 86 18 116/71 09/04/20 12:23 18 Intake and Output 09/04/20 09/05/20 09/05/20 22:59 06:59 14:59 Intake Total 240 240 Output Total 2150 Balance -1910 240 Intake: Oral 240 240 Output: Urine 150 Hemodialysis 2000 Other: # Voids 1 1 Weight 97.976 kg 97 kg No acute distress, lethargic and sleepy, but arousable. Currently, patient on nasal O2, at 4 L. HEENT examination is grossly unremarkable. Mucous membranes are moist. No oral lesions. Neck supple. Full range of motion. No adenopathy thyromegaly or neck vein distention. Cardiovascular examination reveals regular rhythm rate. S1-S2 normal. No S3 or S4. No discernible murmur noted. Heart sounds are distant. Lungs reveal bilateral inspiratory and expiratory rhonchi and crackles. There is some mild expiratory wheezes as well. Breath sounds are diminished bilaterally. There is prolongation on forced maneuver. Abdomen soft bowel sounds are heard. No masses or tenderness. Extremities are intact. Mild edema noted. No cyanosis or clubbing. Skin is without rash or lesion. Neurologic examination is brief but nonfocal. Results - Laboratory Findings CBC and BMP: 09/05/20 08:10 09/05/20 08:10 ABG ABG pH 7.28 (7.35-7.45) L 09/05/20 09:19 ABG pCO2 60 mmHg (35-45) H 09/05/20 09:19 ABG pO2 72 mmHg (83-108) L 09/05/20 09:19 ABG O2 Saturation 96.1 % (94-97) 09/05/20 09:19 PT/INR, D-dimer PT 10.7 sec (9.0-12.0) 09/04/20 12:10 INR 1.0 (<1.2) 09/04/20 12:10 Abnormal lab findings: Abnormal Labs 09/04/20 09/04/20 09/04/20 12:10 12:10 12:10 RBC 2.33 L Hgb 7.6 L Hct 23.3 L MCV RDW 16.9 H Plt Count 75 L Lymphocytes # 0.7 L APTT 19.7 L ABG pH ABG pCO2 ABG pO2 ABG HCO3 ABG Total CO2 Sodium 134 L Potassium 6.6 H* Chloride 96 L BUN 81 H Creatinine 9.72 H* Glucose 200 H POC Glucose (mg/dL) Calcium 6.9 L Total Bilirubin 2.4 H 09/04/20 09/04/20 09/04/20 14:22 18:20 20:05 RBC Hgb Hct MCV RDW Plt Count Lymphocytes # APTT ABG pH ABG pCO2 ABG pO2 ABG HCO3 ABG Total CO2 Sodium 133 L Potassium 6.3 H* Chloride 95 L BUN 80 H Creatinine 9.85 H* Glucose 159 H POC Glucose (mg/dL) 167 H 185 H Calcium 6.5 L Total Bilirubin 09/05/20 09/05/20 09/05/20 06:04 08:10 08:10 RBC 2.02 L Hgb 6.7 L* Hct 20.4 L MCV 101.0 H RDW 16.8 H Plt Count 58 L Lymphocytes # APTT ABG pH ABG pCO2 ABG pO2 ABG HCO3 ABG Total CO2 Sodium 136 L Potassium 5.5 H Chloride BUN 59 H Creatinine 8.08 H* Glucose 179 H POC Glucose (mg/dL) 187 H Calcium 6.9 L Total Bilirubin 09/05/20 09/05/20 09:19 11:24 RBC Hgb Hct MCV RDW Plt Count Lymphocytes # APTT ABG pH 7.28 L ABG pCO2 60 H ABG pO2 72 L ABG HCO3 28 H ABG Total CO2 30 H Sodium Potassium Chloride BUN Creatinine Glucose POC Glucose (mg/dL) 224 H Calcium Total Bilirubin Assessment and Plan Assessment: Acute on chronic hypoxemic and hypercapnic respiratory failure, multifactorial, in part related to fluid overload, possible pneumonia, right lower lobe, and COPD exacerbation. His fluid overload condition, may relate to underlying congestive heart failure and/or end-stage renal disease. History of coronary artery disease, with catheterization at outside facility. Angina pectoris. Congestive heart failure. Chronic obstructive pulmonary disease, secondary to previous heavy tobacco use. History of CVA. Diabetes mellitus. Gastroesophageal reflux disease. Hyperlipidemia. Essential hypertension. Osteoarthritis. End-stage renal disease, currently on Friday, Friday, Friday hemodialysis. History of sleep apnea syndrome, currently not using CPAP as his machine is broken. Plan: Plan dated 09/05/2020. The patient's medications are reviewed and adjusted accordingly. He is on appropriate medications. I did ask the respiratory therapist to reduce his nasal O2 from 4-3 L. I told them that they could accept saturations between 88 and 92%. In addition, I recommended BiPAP at nighttime, with an IPAP of 12, EPAP of 5, and FiO2 of 30%. Currently, the patient is on antibiotics. We did discuss the case with his primary care provider. We'll continue to follow along. Additional recommendations and suggestions are forthcoming. Time with Patient: Greater than 30
--- NOTE | 2020-09-05 13:53 | ECHOF ---
Referral Reason:lvfunction MEASUREMENTS -------- HEIGHT: 177.8 cm WEIGHT: 96.6 kg BP: 116/60 RVIDd: 3.5 cm (< 3.3) IVSd: 1.7 cm (0.6 - 1.1) LVIDd: 3.9 cm (3.9 - 5.3) LVPWd: 1.6 cm (0.6 - 1.1) IVSs: 2.3 cm LVIDs: 2.3 cm LVPWs: 2.0 cm LAESV Index (A-L): 26.56 ml/m Ao Diam: 2.9 cm (2.0 - 3.7) AV Cusp: 1.8 cm (1.5 - 2.6) LA Diam: 4.1 cm (2.7 - 3.8) MV EXCURSION: 17.961 mm (> 18.000) MV EF SLOPE: 79 mm/s (70 - 150) EPSS: 0.5 cm MV E Eben: 1.07 m/s MV DecT: 218 ms MV A Eben: 0.82 m/s MV E/A Ratio: 1.30 RAP: 5.00 mmHg RVSP: 10.33 mmHg FINDINGS -------- This was a technically difficult study with suboptimal views. The left ventricular size is normal. There is moderate concentric left ventricular hypertrophy. O verall left ventricular systolic function is normal with, an EF between 55 - 60 %. The diastolic fi lling pattern is normal for the age of the patient 11.49. The right ventricle is normal in size. The left atrial size is normal. Normal LA size by volume 22+/-6 ml/m2. The right atrial size is normal. Lumason used The aortic valve is trileaflet and appears structurally normal. The mitral valve is normal. Mild mitral regurgitation is present. The tricuspid valve appears structurally normal. Trace tricuspid regurgitation present. Right bowen tricular systolic pressure is normal at < 35 mmHg. There is no pulmonic regurgitation present. The aortic root size is normal. IVC Not well visulized. There is no pericardial effusion. CONCLUSIONS -------- 1. The left ventricular size is normal. 2. There is moderate concentric left ventricular hypertrophy. 3. Overall left ventricular systolic function is normal with, an EF between 55 - 60 %. 4. The diastolic filling pattern is normal for the age of the patient 11.49 5. Mild mitral regurgitation is present. 6. Trace tricuspid regurgitation present. 7. There is no pericardial effusion. [facility] [employer] DIRECTOR: Monika Hoffman RDCS
--- NOTE | 2020-09-05 13:56 | P.PN ---
Subjective Progress Note Date: 09/05/20 HISTORY OF PRESENT ILLNESS 59-year-old male one of Dr. Drew's patient with past medical history of CAD, COPD, CVA, type 2 diabetes, end-stage renal disease on hemodialysis 3 times a week with severe cardiomyopathy with ejection fraction of 30% was seen a audiologist at [place] Dr. Vernon who presented to the emergency department today with 2 weeks not feeling well with severe shortness of breath and dyspnea with minimum exertion patient was supposed to go to dialysis today and was feeling very bad not been able to ambulate or walk and very weak and tired with severe dyspnea with minimal exertion. Ended up coming to the emergency department at [facility] he was and worsening renal failure, fluid overload, severe hyperkalemia, chest x-ray showed fluid overload with infiltrate in the right lower lobe. Patient was giving 500 mg of azithromycin started on IV diuretics and call dialysis for emergency. Patient will be seen nephrology was admitted for the above problem. 09/05: Patient has been afebrile, heart rate 71, blood pressure 120/60, pulse ox 92% on 3 L nasal cannula. Received call at 6 AM the patient was lethargic and requested ABGs. These revealed a pH of 7.28, pCO2 60, pO2 72, bicarb 28, CO2 30, base excess 1.5. Other lab work revealed hemoglobin of 6.7 and patient was ordered for transfusion of one unit of packed RBCs. Platelet count 58. Sodium 136, potassium 5.5, BUN 59 creatinine 8.08. Blood sugars running between 179 and 224. Influenza testing not detected. Patient has been seen by pulmonary medicine with recommendations to reduce oxygen 24 L for saturations between 88 and 92%. He recommends BiPAP at nighttime, continue antibiotics. Lung sounds are improved from yesterday. Patient is drowsy and states that he slept all night. Patient underwent dialysis yesterday. Consult with PT added. REVIEW OF SYSTEMS CONSTITUTIONAL: Well-developed no acute respiratory distress. Denies fever. EYES: No icterus sclerae, no conjunctivitis. EARS, NOSE, MOUTH, THROAT, and FACE: No sore throat, lymphadenopathy, carotid bruits or deformity. RESPIRATORY: Positive shortness of breath cough and wheezes. CARDIOVASCULAR: Positive PND orthopnea palpitation with no real angina but worsening CHF. GASTROINTESTINAL: No Abd pain, Nausea or vomiting, no Diarrhea or constipation, No GI Bleed, no distention or masses. GENITOURINARY: Negative for Hematuria or UTI, no kidney stones. INTEGUMENT/BREAST: Negative for any muscular injury with mild osteoarthritis.. HEMATOLOGIC/LYMPHATIC: Negative for bleed or purpura. Chronic anemia MUSCULOSKELTAL: Negative for Myalgia or arthralgia. Chronic arthralgia NEURLOGICAL: No LOC, Sz or syncope, blurred vision dizziness or abnormality.. Mild abnormal bouncing gait BEHAVIORAL/PSYCH: Negative. ENDOCRINE: Negative. PHYSICAL EXAMINATION General Appearance: Alert, cooperative, no distress, appears stated age. Neck HEENT: Supple, no lymphadenopathy, no thyroid enlargement, no carotid bruits. Lungs: Decreased breath some bilateral fine rhonchi has mild crackles in the right base positive mild expiratory wheezes. Chest Wall: Decrease expansion with deep inspiration no tenderness and no deformity was found on exam, no costochondral pain or discomfort. Heart: Regular rate and rhythm, S1, S2 positive S3 positive JVD with systolic murmur. Back: Symmetric, no curvature, ROM normal, no CVA tenderness. Abdomen: Soft, non-tender, bowel sounds active all four quadrants, no masses, no organomegaly. Extremities: Extremities normal, atraumatic, no cyanosis trace edema. Pulses: 2+ and symmetric. Skin: Skin color, texture, tugor normal, no rashes or lesions. Neurologic: Alert oriented x3 cranial nerves II through XII intact, no motor deficit, no abnormal balance or gait. ASSESSMENT AND PLAN 1 acute hypoxic respiratory failure: Combination of fluid overload, COPD exacerbation, CHF exacerbation and right-sided pneumonia with treat underlying disease. Pulmonary consult appreciated. 2 fluid overload: Patient will be going for dialysis we'll consult nephrology as well and maybe adjust on dialysis, the fluid taking out with dialysis through the week. 3 acute on chronic systolic heart failure with ejection fraction of 20-30%, repeat echocardiogram patient is seen his audiologist apparently outside area and no intervention or any procedure done recently. 4 right lower lobe pneumonia: Patient will be on azithromycin and Rocephin continue medication repeat chest x-ray after the second dialysis. 5 COPD with mild exacerbation: Patient will be on DuoNeb and Pulmicort continue O2. 6 obstructive sleep apnea: Patient has not been using his CPAP at home lately. 7 end-stage renal disease: On hemodialysis 3 times a week resume dialysis. 8 type 2 diabetes on insulin: Resume NovoLog and basically her continue Accu- Chek with sliding scales coverage. 9 hypertension: Continue patient on hydralazine 100 mg 3 times a day, amlodipine 5 mg a day. 10 hyperlipidemia: Continue atorvastatin 80 mg daily. 11 severe depression: Patient remain on Abilify, alprazolam and citalopram. 12 chronic pain management: Patient has been on hydrocodone and gabapentin. 13 GI prophylaxis: Remain on Prilosec 20 mg a day. 14 DVT prophylaxis: Patient will be on heparin subcutaneous. CODE STATUS: Full code. DISCHARGE PLAN Was likely return home with [facility]. Impression and plan of care have been directed as dictated by the signing physician. Iram Love nurse practitioner acting as scribe for signing physician. Objective - Vital Signs Vital signs: Vital Signs Temp 98.1 F 09/05/20 04:00 Pulse 70 09/05/20 06:10 Resp 20 09/05/20 06:10 BP 116/60 09/05/20 04:00 Pulse Ox 93 L 09/05/20 04:00 Intake & Output 09/04/20 09/05/20 09/05/20 18:59 06:59 18:59 Intake Total 240 Output Total 1999 150 Balance -1999 90 Weight 97.976 kg 97 kg Intake: Oral 240 Output: Urine 150 Hemodialysis 1999 Other: # Voids 1 - Labs CBC & Chem 7: 09/05/20 08:10 09/05/20 08:10 Labs: Abnormal Lab Results - Last 24 Hours (Table) 09/04/20 09/04/20 09/04/20 Range/Units 12:10 12:10 12:10 RBC 2.33 L (4.30-5.90) m/uL Hgb 7.6 L (13.0-17.5) gm/dL Hct 23.3 L (39.0-53.0) % RDW 16.9 H (11.5-15.5) % Plt Count 75 L (150-450) k/uL Lymphocytes # 0.7 L (1.0-4.8) k/uL APTT 19.7 L (22.0-30.0) sec Sodium 134 L (137-145) mmol/L Potassium 6.6 H* (3.5-5.1) mmol/L Chloride 96 L (98-107) mmol/L BUN 81 H (9-20) mg/dL Creatinine 9.72 H* (0.66-1.25) mg/dL Glucose 200 H (74-99) mg/dL POC Glucose (mg/dL) (75-99) mg/dL Calcium 6.9 L (8.4-10.2) mg/dL Total Bilirubin 2.4 H (0.2-1.3) mg/dL 09/04/20 09/04/20 09/04/20 Range/Units 14:22 18:20 20:05 RBC (4.30-5.90) m/uL Hgb (13.0-17.5) gm/dL Hct (39.0-53.0) % RDW (11.5-15.5) % Plt Count (150-450) k/uL Lymphocytes # (1.0-4.8) k/uL APTT (22.0-30.0) sec Sodium 133 L (137-145) mmol/L Potassium 6.3 H* (3.5-5.1) mmol/L Chloride 95 L (98-107) mmol/L BUN 80 H (9-20) mg/dL Creatinine 9.85 H* (0.66-1.25) mg/dL Glucose 159 H (74-99) mg/dL POC Glucose (mg/dL) 167 H 185 H (75-99) mg/dL Calcium 6.5 L (8.4-10.2) mg/dL Total Bilirubin (0.2-1.3) mg/dL 09/05/20 Range/Units 06:04 RBC (4.30-5.90) m/uL Hgb (13.0-17.5) gm/dL Hct (39.0-53.0) % RDW (11.5-15.5) % Plt Count (150-450) k/uL Lymphocytes # (1.0-4.8) k/uL APTT (22.0-30.0) sec Sodium (137-145) mmol/L Potassium (3.5-5.1) mmol/L Chloride (98-107) mmol/L BUN (9-20) mg/dL Creatinine (0.66-1.25) mg/dL Glucose (74-99) mg/dL POC Glucose (mg/dL) 187 H (75-99) mg/dL Calcium (8.4-10.2) mg/dL Total Bilirubin (0.2-1.3) mg/dL
[2020-09-05] MEDS: PANTOPRAZOLE 40 MG TABLET PO SCH (15:04)
[2020-09-05] MEDS ORDERED: DARBEPOETIN ALFA 60 MCG/0.3 ML SYRINGE SQ SCH (16:00)
--- NOTE | 2020-09-05 16:44 | CONS ---
CONSULTATION REASON FOR CONSULT: End-stage renal disease. HISTORY OF PRESENT ILLNESS: Patient is a 59-year-old male with end-stage renal disease, on hemodialysis on a Friday, Friday, Friday schedule. He was admitted to the hospital with complaints of weakness, not feeling well. He did not go for dialysis yesterday; instead came into the hospital. Patient denied any active bleeding. He was noted to be in fluid overload and was hyperkalemic and did have a treatment yesterday, about 2-1/2 hours. This morning his hemoglobin has dropped to 6.7 g/dL. He is scheduled to have packed RBCs transfusion. No active bleeding has been noted. Potassium is at 5.5, which is improved from 6.6 on initial admission. No chest pains or shortness of breath. COVID- 19 PCR was negative. PAST MEDICAL HISTORY: End-stage renal disease, history of cardiomyopathy, coronary artery disease, hypertension, CKD mineral bone disorder, anemia of chronic disease, hypertension, type 2 diabetes, history of CVA/TIA, obstructive sleep apnea, COPD, history of chronic thrombocytopenia associated with previous history of EtOH abuse, history of esophageal varices. PAST SURGICAL HISTORY: Appendectomy, cholecystectomy, cardiac catheterization, coronary stent placement, back surgery, tracheostomy, bladder stone removal, spine surgery, multiple PermCath placements and removals, previous PD catheter placement and removal, colonoscopies, left upper arm AV graft. SOCIAL HISTORY: Patient is a former smoker. Previous history of EtOH abuse as well. MEDICATIONS: Medications prior to admission included Lipitor, Xanax, Abilify, Bumex, insulin, Prilosec, PhosLo, Coreg, Colace, Imdur, Paxil, MS Contin, Norvasc. ALLERGIES: NONE. REVIEW OF SYSTEMS: As per HPI. Other systems negative. PHYSICAL EXAMINATION: Patient is comfortable, awake, alert, oriented x3, not in any acute distress. He is lethargic. On examination, blood pressure is 122/48, heart rate 71 per minute. He is afebrile. Examination of lower extremities shows no evidence of edema. Abdomen is soft, nontender. Heart and lungs are not examined. LIBRARY MEDIA SPECIALIST exam grossly intact. LABS/IMAGING: Labs show sodium 136, potassium 5.5, chloride 99, BUN 59, serum creatinine 8.08, hemoglobin 6.7. Coronavirus not detected. Influenza virus not detected. Chest x-ray on admission shows bilateral infiltrates, atypical pneumonia versus fluid overload. ASSESSMENT: 1. End-stage renal disease, on hemodialysis on a Friday, Friday, Friday schedule, status post short treatment of hemodialysis today. Patient will be dialyzed again today and then he will have his regular treatment tomorrow. 2. Volume overload. Expect improvement with ongoing treatment. 3. Possible pneumonia based on chest x-ray findings, maintained on empiric antibiotics. COVID-19 PCR negative. 4. Anemia with previous history of gastrointestinal bleed. Currently no active bleeding noted. Status post packed RBCs transfusion. 5. Chronic kidney disease mineral bone disorder. 6. Hyperkalemia associated with end-stage renal disease. Possible GI bleed as well. We will arrange for hemodialysis again today. 7. History of cerebrovascular accident/transient ischemic attack. 8. Anemia of chronic disease and acute blood loss anemia. Will maintain patient on Aranesp. PLAN: Hemodialysis today and then again in a.m. Add Aranesp. Check iron profile. UF 1 to 1.5 L today and then again in a.m. Repeat chest x-ray after dialysis. Thank you for this consultation. Will continue to follow the patient with you during his hospitalization. MMODL / IJN: [id number] / AFUA
[2020-09-05 16:50] LABS: Glucose,Whole Blood 189 mg/dL (75-99)
[2020-09-05] MEDS: AZITHROMYCIN 500 MG in SODIUM CHLORIDE 0.9% 250 ML IVPB SCH (18:27)
[2020-09-05] MEDS: amLODIPine 5 MG TAB PO SCH (19:29)
[2020-09-05] MEDS: ATORVASTATIN 80 MG TAB PO SCH (19:29)
[2020-09-05] MEDS: ASPIRIN 81 MG PO SCH (19:29)
[2020-09-05] MEDS: PARoxetine 20 MG TAB PO SCH (19:30)
[2020-09-05] MEDS: HEPARIN SODIUM,PORCINE 5,000 UNIT/ML 1 ML VIAL SQ SCH (19:30)
[2020-09-05] MEDS: FOLIC ACID-VIT B COMPLEX-VIT C 1 CAP PO SCH (19:30)
[2020-09-05] MEDS: ARIPiprazole 5 MG TAB PO SCH (19:30)
[2020-09-05 20:08] LABS: Glucose,Whole Blood 166 mg/dL (75-99)
[2020-09-05 20:39] LABS: Anisocytosis Slight; MCH 33.8 pg (25.0-35.0); MCHC 34.3 g/dL (31.0-37.0); MCV 98.7 fL (80.0-100.0); Macrocytosis Slight; Mean Platelet Volume 9.1; Poikilocytosis Slight; RBC 2.02 m/uL (4.30-5.90); RDW 16.5 % (11.5-15.5); WBC 4.8 k/uL (3.8-10.6)
[2020-09-05 20:41] LABS: HGB 6.8 gm/dL (13.0-17.5); Platelet Count 58 k/uL (150-450)
[2020-09-06] MEDS: HYDROcodone/APAP 10-325MG 1 EACH TAB PO SCH ×6 (00:30→18:15)
[2020-09-06] MEDS: INSULIN ASPART (NovoLOG) 100 UNIT/ML VIAL SQ SCH ×8 (00:30→21:13)
[2020-09-06] MEDS: KETOROLAC 0.5% OPHTH DROPS 5 ML BTL BOTH EYES SCH ×3 (00:30→15:26)
[2020-09-06 02:24] LABS: Glucose,Whole Blood 163 mg/dL (75-99)
[2020-09-06 05:59] LABS: Glucose,Whole Blood 157 mg/dL (75-99)
[2020-09-06] MEDS: carvediloL 12.5 MG TAB PO SCH ×2 (06:14→17:11)
[2020-09-06 08:02] LABS: HCT 21.9 % (39.0-53.0); HGB 7.6 gm/dL (13.0-17.5); MCH 34.5 pg (25.0-35.0); MCV 98.8 fL (80.0-100.0); Macrocytosis Slight; Mean Platelet Volume 8.9; Poikilocytosis Slight; RBC 2.21 m/uL (4.30-5.90); RDW 15.9 % (11.5-15.5); WBC 4.3 k/uL (3.8-10.6)
[2020-09-06] MEDS: BUMETANIDE 1 MG TAB PO SCH ×2 (08:02→21:06)
[2020-09-06] MEDS: HEPARIN SODIUM,PORCINE 5,000 UNIT/ML 1 ML VIAL SQ SCH ×2 (08:02→21:06)
[2020-09-06] MEDS: ISOSORBIDE MONONITRATE ER 30 MG TAB.ER.24H PO SCH (08:02)
[2020-09-06 08:04] LABS: Platelet Count 63 k/uL (150-450)
--- NOTE | 2020-09-06 08:04 | XR ---
EXAMINATION TYPE: XR chest 1V DATE OF EXAM: 09/06/2020 COMPARISON: 09/04/2020 HISTORY: 59-year-old male CHF TECHNIQUE: Single frontal view of the chest is obtained. FINDINGS: ACDF hardware. Heart borderline enlarged. Interstitial densities remain but patchy opacities througho ut the right lung have largely resolved. Mild density at the left base likely atelectasis. No sizable effusion. IMPRESSION: Improving CHF with residual mild pulmonary vascular congestion.
[2020-09-06 08:17] LABS: Albumin 3.4 g/dL (3.5-5.0); Calcium 7.1 mg/dL (8.4-10.2); Potassium 4.8 mmol/L (3.5-5.1); Total Bilirubin 1.2 mg/dL (0.2-1.3)
[2020-09-06] MEDS: MORPHINE SULFATE ER 30 MG TABLET PO SCH ×2 (08:36→21:07)
[2020-09-06] MEDS ORDERED: SODIUM FERRIC GLUCONAT-SUCROSE 125 MG in SODIUM CHLORIDE 0.9% 100 ML IVPB ONE (08:38)
[2020-09-06 08:59] LABS: % Iron Saturation 24.73 (15.00-50.00)
[2020-09-06] MEDS: prednisoLONE ACETATE 1% OPHTH DROPS 5 ML BTL BOTH EYES SCH ×2 (09:07→15:26)
--- NOTE | 2020-09-06 12:07 | P.PN ---
Subjective Progress Note Date: 09/06/20 HISTORY OF PRESENT ILLNESS 59-year-old male one of Dr. Drew's patient with past medical history of CAD, COPD, CVA, type 2 diabetes, end-stage renal disease on hemodialysis 3 times a week with severe cardiomyopathy with ejection fraction of 30% was seen a hepatologist at [place] Dr. Vernon who presented to the emergency department today with 2 weeks not feeling well with severe shortness of breath and dyspnea with minimum exertion patient was supposed to go to dialysis today and was feeling very bad not been able to ambulate or walk and very weak and tired with severe dyspnea with minimal exertion. Ended up coming to the emergency department at [facility] he was and worsening renal failure, fluid overload, severe hyperkalemia, chest x-ray showed fluid overload with infiltrate in the right lower lobe. Patient was giving 500 mg of azithromycin started on IV diuretics and call dialysis for emergency. Patient will be seen nephrology was admitted for the above problem. 09/05: Patient has been afebrile, heart rate 71, blood pressure 120/60, pulse ox 92% on 3 L nasal cannula. Received call at 6 AM the patient was lethargic and requested ABGs. These revealed a pH of 7.28, pCO2 60, pO2 72, bicarb 28, CO2 30, base excess 1.5. Other lab work revealed hemoglobin of 6.7 and patient was ordered for transfusion of one unit of packed RBCs. Platelet count 58. Sodium 136, potassium 5.5, BUN 59 creatinine 8.08. Blood sugars running between 179 and 224. Influenza testing not detected. Patient has been seen by pulmonary medicine with recommendations to reduce oxygen 24 L for saturations between 88 and 92%. He recommends BiPAP at nighttime, continue antibiotics. Lung sounds are improved from yesterday. Patient is drowsy and states that he slept all night. Patient underwent dialysis yesterday. Consult with PT added. 09/06: Patient complains of feeling tired but that her from yesterday. He is scheduled for dialysis on his normal schedule Friday. Repeat hemoglobin is 7.6 status post 1 unit packed RBCs. Platelet count is 63. Aureliano kiki added. We will add and 1 dose of Ferrlecit today. Repeat chest x-ray reveals improving heart failure with residual mild pulmonary vascular congestion. Patient has been afebrile, heart rate 67, blood pressure 118/58, pulse ox 96% on 3 L nasal cannula. Patient encouraged to undergo sleep study as an outpatient. Anticipate possible discharge tomorrow. REVIEW OF SYSTEMS CONSTITUTIONAL: Well-developed no acute respiratory distress. Denies fever. Denies chills EYES: No icterus sclerae, no conjunctivitis. EARS, NOSE, MOUTH, THROAT, and FACE: No sore throat, lymphadenopathy, carotid bruits or deformity. RESPIRATORY: Positive shortness of breath cough and wheezes. CARDIOVASCULAR: Positive PND orthopnea palpitation with no real angina but worsening CHF. GASTROINTESTINAL: No Abd pain, Nausea or vomiting, no Diarrhea or constipation, No GI Bleed, no distention or masses. GENITOURINARY: Negative for Hematuria or UTI, no kidney stones. INTEGUMENT/BREAST: Negative for any muscular injury with mild osteoarthritis.. HEMATOLOGIC/LYMPHATIC: Negative for bleed or purpura. Chronic anemia MUSCULOSKELTAL: Negative for Myalgia or arthralgia. Chronic arthralgia NEURLOGICAL: No LOC, Sz or syncope, blurred vision dizziness or abnormality.. Mild abnormal bouncing gait BEHAVIORAL/PSYCH: Negative. ENDOCRINE: Negative. PHYSICAL EXAMINATION General Appearance: Alert, cooperative, no distress, appears stated age. Patient appears comfortable at rest Neck HEENT: Supple, no lymphadenopathy, no thyroid enlargement, no carotid bruits. Lungs: Decreased breath some bilateral fine rhonchi has mild crackles in the right base positive mild expiratory wheezes. Chest Wall: Decrease expansion with deep inspiration no tenderness and no deformity was found on exam, no costochondral pain or discomfort. Heart: Regular rate and rhythm, S1, S2 positive S3 positive JVD with systolic murmur. Back: Symmetric, no curvature, ROM normal, no CVA tenderness. Abdomen: Soft, non-tender, bowel sounds active all four quadrants, no masses, no organomegaly. Extremities: Extremities normal, atraumatic, no cyanosis trace edema. Pulses: 2+ and symmetric. Skin: Skin color, texture, tugor normal, no rashes or lesions. Neurologic: Alert oriented x3 cranial nerves II through XII intact, no motor deficit, no abnormal balance or gait. ASSESSMENT AND PLAN 1 acute hypoxic respiratory failure: Combination of fluid overload, COPD exacer bation, CHF exacerbation and right-sided pneumonia with treat underlying disease. Pulmonary consult appreciated. 2 fluid overload: Patient will be going for dialysis we'll consult nephrology as well and maybe adjust on dialysis, the fluid taking out with dialysis through the week. 3 acute on chronic systolic heart failure with ejection fraction of 20-30%, repeat echocardiogram patient is seen his hepatologist apparently outside area and no intervention or any procedure done recently. 4 right lower lobe pneumonia: Continue azithromycin and Rocephin.. 5 COPD with mild exacerbation: Patient will be on DuoNeb and Pulmicort continue O2. 6 obstructive sleep apnea: Patient has not been using his CPAP at home lately. 7 end-stage renal disease: On hemodialysis 3 times a week resume dialysis. 8 type 2 diabetes on insulin: Resume NovoLog and basically her continue Accu- Chek with sliding scales coverage. 9 hypertension: Continue patient on hydralazine 100 mg 3 times a day, amlodipine 5 mg a day. 10 hyperlipidemia: Continue atorvastatin 80 mg daily. 11 severe depression: Patient remain on Abilify, alprazolam and citalopram. 12 chronic pain management: Patient has been on hydrocodone and gabapentin. 13 GI prophylaxis: Remain on Prilosec 20 mg a day. 14 DVT prophylaxis: Patient will be on heparin subcutaneous. 15 Acute anemia secondary to chronic kidney disease anemia. Transfused 1 unit of packed RBCs. Continue Aranesp, Ferrlecit infusion 1. DISCHARGE PLAN Was likely return home tomorrow with [facility]. Impression and plan of care have been directed as dictated by the signing physician. Iram Love nurse practitioner acting as scribe for signing physician. Objective - Vital Signs Vital signs: Vital Signs Temp 97.6 F 09/06/20 07:59 Pulse 67 09/06/20 07:59 Resp 18 09/06/20 07:59 BP 118/58 09/06/20 07:59 Pulse Ox 96 09/06/20 07:59 Intake & Output 09/05/20 09/06/20 09/06/20 18:59 06:59 18:59 Intake Total 1330 490 540 Output Total 2200 200 Balance -870 290 540 Weight 94.5 kg Intake: Intake, IV Titration 250 Amount Azithromycin 500 mg In 250 Sodium Chloride 0.9% 250 ml @ 250 mls/hr IVPB Q24H [facility] Rx#:[id number] Oral 1020 240 540 Blood Product 310 Rc As-1 Unit 310 [id number] Output: Urine 200 Hemodialysis 2200 Other: # Voids 0 1 - Labs CBC & Chem 7: 09/06/20 07:16 09/06/20 07:16 Labs: Abnormal Lab Results - Last 24 Hours (Table) 09/05/20 09/05/20 09/05/20 Range/Units 08:10 08:10 09:19 RBC 2.02 L (4.30-5.90) m/uL Hgb 6.7 L* (13.0-17.5) gm/dL Hct 20.4 L (39.0-53.0) % MCV 101.0 H (80.0-100.0) fL RDW 16.8 H (11.5-15.5) % Plt Count 58 L (150-450) k/uL ABG pH 7.28 L (7.35-7.45) ABG pCO2 60 H (35-45) mmHg ABG pO2 72 L (83-108) mmHg ABG HCO3 28 H (21-25) mmol/L ABG Total CO2 30 H (19-24) mmol/L Sodium 136 L (137-145) mmol/L Potassium 5.5 H (3.5-5.1) mmol/L BUN 59 H (9-20) mg/dL Creatinine 8.08 H* (0.66-1.25) mg/dL Glucose 179 H (74-99) mg/dL POC Glucose (mg/dL) (75-99) mg/dL Calcium 6.9 L (8.4-10.2) mg/dL Total Protein (6.3-8.2) g/dL Albumin (3.5-5.0) g/dL Crossmatch 09/05/20 09/05/20 09/05/20 Range/Units 11:24 11:24 16:48 RBC (4.30-5.90) m/uL Hgb (13.0-17.5) gm/dL Hct (39.0-53.0) % MCV (80.0-100.0) fL RDW (11.5-15.5) % Plt Count (150-450) k/uL ABG pH (7.35-7.45) ABG pCO2 (35-45) mmHg ABG pO2 (83-108) mmHg ABG HCO3 (21-25) mmol/L ABG Total CO2 (19-24) mmol/L Sodium (137-145) mmol/L Potassium (3.5-5.1) mmol/L BUN (9-20) mg/dL Creatinine (0.66-1.25) mg/dL Glucose (74-99) mg/dL POC Glucose (mg/dL) 224 H 189 H (75-99) mg/dL Calcium (8.4-10.2) mg/dL Total Protein (6.3-8.2) g/dL Albumin (3.5-5.0) g/dL Crossmatch See Detail 09/05/20 09/05/20 09/06/20 Range/Units 19:47 20:06 02:23 RBC 2.02 L (4.30-5.90) m/uL Hgb 6.8 L* (13.0-17.5) gm/dL Hct 20.0 L (39.0-53.0) % MCV (80.0-100.0) fL RDW 16.5 H (11.5-15.5) % Plt Count 58 L (150-450) k/uL ABG pH (7.35-7.45) ABG pCO2 (35-45) mmHg ABG pO2 (83-108) mmHg ABG HCO3 (21-25) mmol/L ABG Total CO2 (19-24) mmol/L Sodium (137-145) mmol/L Potassium (3.5-5.1) mmol/L BUN (9-20) mg/dL Creatinine (0.66-1.25) mg/dL Glucose (74-99) mg/dL POC Glucose (mg/dL) 166 H 163 H (75-99) mg/dL Calcium (8.4-10.2) mg/dL Total Protein (6.3-8.2) g/dL Albumin (3.5-5.0) g/dL Crossmatch 09/06/20 09/06/20 09/06/20 Range/Units 05:58 07:16 07:16 RBC 2.21 L (4.30-5.90) m/uL Hgb 7.6 L (13.0-17.5) gm/dL Hct 21.9 L (39.0-53.0) % MCV (80.0-100.0) fL RDW 15.9 H (11.5-15.5) % Plt Count 63 L (150-450) k/uL ABG pH (7.35-7.45) ABG pCO2 (35-45) mmHg ABG pO2 (83-108) mmHg ABG HCO3 (21-25) mmol/L ABG Total CO2 (19-24) mmol/L Sodium 135 L (137-145) mmol/L Potassium (3.5-5.1) mmol/L BUN 58 H (9-20) mg/dL Creatinine 6.98 H (0.66-1.25) mg/dL Glucose 156 H (74-99) mg/dL POC Glucose (mg/dL) 157 H (75-99) mg/dL Calcium 7.1 L (8.4-10.2) mg/dL Total Protein 6.0 L (6.3-8.2) g/dL Albumin 3.4 L (3.5-5.0) g/dL Crossmatch Microbiology - Last 24 Hours (Table) 09/04/20 14:22 Blood Culture - Preliminary Blood No Growth after 24 hours
[2020-09-06 12:26] LABS: Glucose,Whole Blood 142 mg/dL (75-99)
--- NOTE | 2020-09-06 14:22 | PN ---
PROGRESS NOTE Patient is seen for followup for end-stage renal disease. He is currently seen on hemodialysis tolerating his treatment well. PHYSICAL EXAMINATION: On examination today, blood pressure is 120/68, heart rate 58 per minute. He is afebrile. Examination shows no evidence of edema bilateral lower extremities. Abdomen is soft, obese, nontender. QA INTERN exam grossly intact. LABS: Labs show hemoglobin 7.6, sodium 135, potassium 4.8, BUN 58, serum creatinine 6.98, albumin 3.4. ASSESSMENT: 1. End-stage renal disease, on hemodialysis on a Friday, Friday, Friday schedule. 2. Anemia, acute on top of chronic, possibly blood loss, but no active gastrointestinal bleed noted, status post packed RBCs transfusion maintained on Aranesp. Iron saturation was slightly low at 24. Patient did receive a dose of IV iron. He has had a previous history of gastrointestinal bleed. 3. Hyperkalemia on admission, currently improved post dialysis. 4. Mild volume overload, now improved. 5. Right lower lobe pneumonia, COVID-19 negative. Maintain on antibiotics. 6. Chronic obstructive pulmonary disease exacerbation. 7. Chronic kidney disease mineral bone disorder. 8. History of depression. PLAN: Hemodialysis today. Continue with the Aranesp. Consider GI evaluation if not done recently. MMODL / IJN: [id number] /
[2020-09-06] MEDS: PANTOPRAZOLE 40 MG TABLET PO SCH (15:26)
--- NOTE | 2020-09-06 15:27 | P.PN ---
Subjective Progress Note Date: 09/06/20 Principal diagnosis: Dyspnea, pneumonia, obstructive sleep apnea 59-year-old male admitted to the hospital on 09/04/2020 at 1052. He apparently comes in complaining of shortness of breath. In addition, he apparently complained of fever and cough. Not a particularly good historian. He apparently had a recent heart catheterization at outside facility. There was no interventions done. The patient has a history of sleep apnea syndrome, but his CPAP machine is broken. He is currently not using it. The patient is also on 3 time a week hemodialysis. His last dialysis session was last Friday. The patient's chest x-ray shows fluid overload, and increased consolidation in the right lower lobe, intentionally consistent with pneumonia. The patient is not particularly compliant according to his primary care provider. He is a full code. A blood gas was done. I did recommend that they turn down his oxygen from 4 L to 3 L, and gave orders for BiPAP at nighttime, with an IPAP of 12, EPAP of 5, and 30% FiO2. He appears to be a CO2 retainer and saturations between 88-92% are probably okay. The patient has a history of coronary artery disease, angina pectoris, congestive heart failure, COPD, CVA, diabetes mellitus, gastroesophageal reflux disease, hyperlipidemia, essential hypertension, DJD, renal failure, and sleep apnea syndrome. On 09/06/2020 patient seen in follow-up on selective care unit, his doing better today, breathing seems comfortable, did wear BiPAP last night with FiO2 of 30%. He is receiving hemodialysis treatment, nephrology is following, his hemoglobin is 7.6 she received units of packed red blood cells. His chest x-ray today shows improving heart failure with residual mild pulmonary vascular congestion. Today's labs have been noted, 1 vessel, is 4.3, sodium is 135, and MRSA electrolytes were within normal limits, BUN is 15 creatinine 6.98. Patient had 2.2 L of fluid removed with hemodialysis Objective - Vital Signs Vital signs: Vital Signs Temp 97.8 F 09/06/20 13:30 Pulse 58 L 09/06/20 13:30 Resp 18 09/06/20 13:30 BP 160/62 09/06/20 13:30 Pulse Ox 100 09/06/20 11:59 Intake & Output 09/05/20 09/06/20 09/06/20 18:59 06:59 18:59 Intake Total 9215 682 6061 Output Total 2200 200 2000 Balance -870 290 -920 Weight 94.5 kg Intake: Intake, IV Titration 250 Amount Azithromycin 500 mg In 250 Sodium Chloride 0.9% 250 ml @ 250 mls/hr IVPB Q24H [facility] Rx#:[id number] Oral 7008 500 3328 Blood Product 310 Rc As-1 Unit 310 [id number] Output: Urine 200 Hemodialysis 2200 1999 Other: # Voids 0 1 - Exam GENERAL EXAM: Alert, very pleasant, 59-year-old white male, on 3 L of oxygen pulse ox 96% comfortable in no apparent distress. HEAD: Normocephalic/atraumatic. EYES: Normal reaction of pupils, equal size. Conjunctiva pink, sclera white. NOSE: Clear with pink turbinates. THROAT: No erythema or exudates. NECK: No masses, no JVD, no thyroid enlargement, no adenopathy. CHEST: No chest wall deformity. Symmetrical expansion. LUNGS: Equal air entry with no crackles, wheeze, rhonchi or dullness. CVS: Regular rate and rhythm, normal S1 and S2, no gallops, no murmurs, no rubs ABDOMEN: Soft, nontender. No hepatosplenomegaly, normal bowel sounds, no guarding or rigidity. EXTREMITIES: No clubbing, no edema, no cyanosis, 2+ pulses and upper and lower extremities. MUSCULOSKELETAL: Muscle strength and tone normal. SPINE: No scoliosis or deformity SKIN: No rashes CENTRAL NERVOUS SYSTEM: Alert and oriented -3. No focal deficits, tone is normal in all 4 extremities. PSYCHIATRIC: Alert and oriented -3. Appropriate affect. Intact judgment and insight. - Labs CBC & Chem 7: 09/06/20 07:16 09/06/20 07:16 Labs: Abnormal Lab Results - Last 24 Hours (Table) 09/05/20 09/05/20 09/05/20 Range/Units 11:24 16:48 19:47 RBC 2.02 L (4.30-5.90) m/uL Hgb 6.8 L* (13.0-17.5) gm/dL Hct 20.0 L (39.0-53.0) % RDW 16.5 H (11.5-15.5) % Plt Count 58 L (150-450) k/uL Sodium (137-145) mmol/L BUN (9-20) mg/dL Creatinine (0.66-1.25) mg/dL Glucose (74-99) mg/dL POC Glucose (mg/dL) 189 H (75-99) mg/dL Calcium (8.4-10.2) mg/dL Iron (65-175) ug/dL TIBC (228-460) ug/dL Total Protein (6.3-8.2) g/dL Albumin (3.5-5.0) g/dL Crossmatch See Detail 09/05/20 09/05/20 09/06/20 Range/Units 19:47 20:06 02:23 RBC (4.30-5.90) m/uL Hgb (13.0-17.5) gm/dL Hct (39.0-53.0) % RDW (11.5-15.5) % Plt Count (150-450) k/uL Sodium (137-145) mmol/L BUN (9-20) mg/dL Creatinine (0.66-1.25) mg/dL Glucose (74-99) mg/dL POC Glucose (mg/dL) 166 H 163 H (75-99) mg/dL Calcium (8.4-10.2) mg/dL Iron 46 L (65-175) ug/dL TIBC 186 L (228-460) ug/dL Total Protein (6.3-8.2) g/dL Albumin (3.5-5.0) g/dL Crossmatch 09/06/20 09/06/20 09/06/20 Range/Units 05:58 07:16 07:16 RBC 2.21 L (4.30-5.90) m/uL Hgb 7.6 L (13.0-17.5) gm/dL Hct 21.9 L (39.0-53.0) % RDW 15.9 H (11.5-15.5) % Plt Count 63 L (150-450) k/uL Sodium 135 L (137-145) mmol/L BUN 58 H (9-20) mg/dL Creatinine 6.98 H (0.66-1.25) mg/dL Glucose 156 H (74-99) mg/dL POC Glucose (mg/dL) 157 H (75-99) mg/dL Calcium 7.1 L (8.4-10.2) mg/dL Iron (65-175) ug/dL TIBC (228-460) ug/dL Total Protein 6.0 L (6.3-8.2) g/dL Albumin 3.4 L (3.5-5.0) g/dL Crossmatch 09/06/20 Range/Units 12:24 RBC (4.30-5.90) m/uL Hgb (13.0-17.5) gm/dL Hct (39.0-53.0) % RDW (11.5-15.5) % Plt Count (150-450) k/uL Sodium (137-145) mmol/L BUN (9-20) mg/dL Creatinine (0.66-1.25) mg/dL Glucose (74-99) mg/dL POC Glucose (mg/dL) 142 H (75-99) mg/dL Calcium (8.4-10.2) mg/dL Iron (65-175) ug/dL TIBC (228-460) ug/dL Total Protein (6.3-8.2) g/dL Albumin (3.5-5.0) g/dL Crossmatch Microbiology - Last 24 Hours (Table) 09/04/20 14:22 Blood Culture - Preliminary Blood No Growth after 24 hours Assessment and Plan Plan: Assessment #1. Acute on chronic hypoxemic and hypercapnic respiratory failure, multifactorial, in part related to fluid overload, possible pneumonia, right lower lobe, and COPD exacerbation. His fluid overload condition, may relate to underlying congestive heart failure and/or end-stage renal disease. #2. History of coronary artery disease, with catheterization at outside facility. #3. Angina pectoris. #4. Congestive heart failure. #5. Chronic obstructive pulmonary disease, secondary to previous heavy tobacco use. #6. History of CVA. #7. Diabetes mellitus. #8. Gastroesophageal reflux disease. #9. Hyperlipidemia. #10. Essential hypertension. #11. Osteoarthritis. #12. End-stage renal disease, currently on Friday, Friday, Friday hemodialysis. #13. History of sleep apnea syndrome, currently not using CPAP as his machine is broken. Plan: Patient will need of home BiPAP unit, with IPAP pressure of 12, EPAP of 5, and FiO2 of 30% for a diagnosis of chronic obstructive pulmonary disease with chronic hypercapnic and hypoxemic respiratory failure. Continue with current medical treatment. He'll, today's chest x-ray shows improving CHF with residual mild pulmonary vascular congestion. Clinically patient is breathing easier, he is more alert, he was dialyzed today and 2.2 L was removed with dialysis. We'll continue to follow, if continues to improve patient may be considered for discharge home in the next day or 2. I performed a history & physical examination of the patient and discussed their management with my nurse practitioner, Yumiko Matta. I reviewed the nurse practitioner's note and agree with the documented findings and plan of care. Lung sounds are positive for diminished breath sounds The findings and the impression was discussed with the patient. I attest to the documentation by the nurse practitioner. Time with Patient: Less than 30
[2020-09-06 16:42] LABS: Glucose,Whole Blood 202 mg/dL (75-99)
[2020-09-06] MEDS: AZITHROMYCIN 500 MG in SODIUM CHLORIDE 0.9% 250 ML IVPB SCH (17:42)
[2020-09-06 19:55] LABS: Glucose,Whole Blood 172 mg/dL (75-99)
[2020-09-06] MEDS: amLODIPine 5 MG TAB PO SCH (21:06)
[2020-09-06] MEDS: FOLIC ACID-VIT B COMPLEX-VIT C 1 CAP PO SCH (21:06)
[2020-09-06] MEDS: ARIPiprazole 5 MG TAB PO SCH (21:06)
[2020-09-06] MEDS: ATORVASTATIN 80 MG TAB PO SCH (21:06)
[2020-09-06] MEDS: ASPIRIN 81 MG PO SCH (21:06)
[2020-09-06] MEDS: PARoxetine 20 MG TAB PO SCH (21:07)
[2020-09-07] MEDS: prednisoLONE ACETATE 1% OPHTH DROPS 5 ML BTL BOTH EYES SCH ×2 (00:28→08:06)
[2020-09-07] MEDS: KETOROLAC 0.5% OPHTH DROPS 5 ML BTL BOTH EYES SCH ×2 (00:28→08:06)
[2020-09-07] MEDS: HYDROcodone/APAP 10-325MG 1 EACH TAB PO SCH ×3 (00:28→06:25)
[2020-09-07 06:12] LABS: Glucose,Whole Blood 148 mg/dL (75-99)
[2020-09-07] MEDS: INSULIN ASPART (NovoLOG) 100 UNIT/ML VIAL SQ SCH ×2 (06:25→07:45)
[2020-09-07] MEDS: carvediloL 12.5 MG TAB PO SCH (06:25)
[2020-09-07 07:31] LABS: Anisocytosis Slight; HCT 22.2 % (39.0-53.0); HGB 7.6 gm/dL (13.0-17.5); MCH 33.3 pg (25.0-35.0); MCV 98.1 fL (80.0-100.0); Macrocytosis Slight; Mean Platelet Volume 9.2; Poikilocytosis Slight; RBC 2.27 m/uL (4.30-5.90); RDW 16.5 % (11.5-15.5); WBC 4.5 k/uL (3.8-10.6)
[2020-09-07 07:42] LABS: Platelet Count 62 k/uL (150-450)
[2020-09-07 07:50] LABS: Calcium 7.4 mg/dL (8.4-10.2); Potassium 4.2 mmol/L (3.5-5.1)
[2020-09-07] MEDS: HEPARIN SODIUM,PORCINE 5,000 UNIT/ML 1 ML VIAL SQ SCH (08:05)
[2020-09-07] MEDS: ISOSORBIDE MONONITRATE ER 30 MG TAB.ER.24H PO SCH (08:06)
[2020-09-07] MEDS: BUMETANIDE 1 MG TAB PO SCH (08:06)
[2020-09-07 09:36] VITALS: BP 135/62; PULSE 64; RESP 16; TEMP 97.3
[2020-09-07] MEDS: ALBUTEROL HFA INHALER INHALATION PRN (10:44)
--- NOTE | 2020-09-07 11:41 | P.DS ---
Providers Date of admission: 09/04/20 13:54 Expected date of discharge: 09/07/20 Attending physician: Tyler Archer Consults: 09/04/20 13:54 Consult Physician Urgent Consulting Provider: Marion Garcia Consult Reason/Comments: Fluid overload, incisional disease, hyperkalemia Do you want consulting provider notified?: Already Contacted 09/04/20 19:55 Consult Physician Routine Consulting Provider: John Otoole Consult Reason/Comments: Resp Failure and R side Pneumonia Do you want consulting provider notified?: Yes Primary care physician: Gonzales Drew [facility] Course: HISTORY OF PRESENT ILLNESS 59-year-old male one of Dr. Drew's patient with past medical history of CAD, COPD, CVA, type 2 diabetes, end-stage renal disease on hemodialysis 3 times a week with severe cardiomyopathy with ejection fraction of 30% was seen a die equipment operator at [place] Dr. Vernon who presented to the emergency department today with 2 weeks not feeling well with severe shortness of breath and dyspnea with minimum exertion patient was supposed to go to dialysis today and was feeling very bad not been able to ambulate or walk and very weak and tired with severe dyspnea with minimal exertion. Ended up coming to the emergency department at [facility] he was and worsening renal failure, fluid overload, severe hyperkalemia, chest x-ray showed fluid overload with infiltrate in the right lower lobe. Patient was giving 500 mg of azithromycin started on IV diuretics and call dialysis for emergency. Patient will be seen nephrology was admitted for the above problem. 09/05: Patient has been afebrile, heart rate 71, blood pressure 120/60, pulse ox 92% on 3 L nasal cannula. Received call at 6 AM the patient was lethargic and requested ABGs. These revealed a pH of 7.28, pCO2 60, pO2 72, bicarb 28, CO2 30, base excess 1.5. Other lab work revealed hemoglobin of 6.7 and patient was ordered for transfusion of one unit of packed RBCs. Platelet count 58. Sodium 136, potassium 5.5, BUN 59 creatinine 8.08. Blood sugars running between 179 and 224. Influenza testing not detected. Patient has been seen by pulmonary medicine with recommendations to reduce oxygen 24 L for saturations between 88 and 92%. He recommends BiPAP at nighttime, continue antibiotics. Lung sounds are improved from yesterday. Patient is drowsy and states that he slept all nig ht. Patient underwent dialysis yesterday. Consult with PT added. 09/06: Patient complains of feeling tired but that her from yesterday. He is scheduled for dialysis on his normal schedule Friday. Repeat hemoglobin is 7.6 status post 1 unit packed RBCs. Platelet count is 63. Aranesp added. We will add and 1 dose of Ferrlecit today. Repeat chest x-ray reveals improving heart failure with residual mild pulmonary vascular congestion. Patient has been afebrile, heart rate 67, blood pressure 118/58, pulse ox 96% on 3 L nasal cannula. Patient encouraged to undergo sleep study as an outpatient. Anticipate possible discharge tomorrow. 09/07: Patient denies any new complaints. He plans to follow up with his primary die equipment operator. He is also willing to follow up with primary medicine regarding obstructive sleep apnea. He has been afebrile, heart rate 64, blood pressure 135/62, pulse ox 97% on room air. WBC 4.5, hemoglobin 7.6 and he is status post transfusion 1 unit packed RBCs patient is anxious to be discharged home. Patient will be discharged home today in stable condition. Echocardiogram reveals EF of 55-60% with mild mitral regurgitation, trace tricuspid regurgitation. ASSESSMENT AND PLAN 1 acute hypoxic respiratory failure: Combination of fluid overload, COPD exacerbation, CHF exacerbation and right-sided pneumonia 2 fluid overload status post dialysis 3 acute on chronic diastolic heart failure 4 right lower lobe pneumonia 5 COPD with mild exacerbation 6 obstructive sleep apnea 7 end-stage renal disease: On hemodialysis 8 type 2 diabetes on insulin 9 hypertension 10 hyperlipidemia 11 recurrent depression 12 chronic pain management 13 Acute anemia secondary to chronic kidney disease anemia. Transfused 1 unit of packed RBCs. DISCHARGE PLAN Home with [facility]. Impression and plan of care have been directed as dictated by the signing physician. Iram Love nurse practitioner acting as scribe for signing physician. Patient Condition at Discharge: Good Plan - Discharge Summary Discharge Rx Participant: Yes New Discharge Prescriptions: New Azithromycin 250 mg PO DAILY 5 Days #5 tab Albuterol Inhaler [Ventolin Hfa Inhaler] 2 puff INHALATION RT-QID PRN #1 inha ler PRN Reason: Shortness Of Breath Or Wheezing Doxycycline [Vibramycin] 100 mg PO BID 5 Days #10 capsule Continue Atorvastatin Calcium [Lipitor] 80 mg PO HS #30 tab ALPRAZolam [Xanax] 0.25 mg PO DAILY PRN PRN Reason: Anxiety HYDROcodone/APAP 10-325MG [[place] 10-325] 1 tab PO Q4H Insulin Aspart [NovoLOG Flexpen] 20 unit SQ AC-TID Omeprazole [PriLOSEC] 20 mg PO DAILY@1500 ARIPiprazole [Abilify] 5 mg PO HS Bumetanide [BUMEX] 4 mg PO BID Dialyvite 1 tab PO HS Aspirin EC [Ecotrin Low Dose] 81 mg PO HS Carvedilol [Coreg] 12.5 mg PO BID Isosorbide Mononitrate ER [Imdur] 30 mg PO DAILY Ketorolac 0.5% Ophth Soln [Acular 0.5%] 1 drop BOTH EYES TID Morphine Sulfate [Ms Contin] 30 mg PO Q12H PARoxetine [Paxil] 20 mg PO HS Prednisolone Acetate/Pf [Prednisolone Acet 1% Eye Drop] See Taper BOTH EYES DIRECTED amLODIPine [Norvasc] 5 mg PO HS Docusate [Colace] 100 mg PO BID PRN PRN Reason: Constipation Calcium Acetate [PhosLo] 1,334 mg PO AC-TID PRN PRN Reason: meals Discharge Medication List Atorvastatin Calcium [Lipitor] 80 mg PO HS #30 tab 03/01/14 [Rx] ALPRAZolam [Xanax] 0.25 mg PO DAILY PRN 06/04/18 [History] HYDROcodone/APAP 10-325MG [[place] 10-325] 1 tab PO Q4H 06/04/18 [History] ARIPiprazole [Abilify] 5 mg PO HS 01/04/19 [History] Bumetanide [BUMEX] 4 mg PO BID 01/04/19 [History] Dialyvite 1 tab PO HS 01/04/19 [History] Insulin Aspart [NovoLOG Flexpen] 20 unit SQ AC-TID 01/04/19 [History] Omeprazole [PriLOSEC] 20 mg PO DAILY@1500 01/04/19 [History] Aspirin EC [Ecotrin Low Dose] 81 mg PO HS 09/04/20 [History] Calcium Acetate [PhosLo] 1,334 mg PO AC-TID PRN 09/04/20 [History] Carvedilol [Coreg] 12.5 mg PO BID 09/04/20 [History] Docusate [Colace] 100 mg PO BID PRN 09/04/20 [History] Isosorbide Mononitrate ER [Imdur] 30 mg PO DAILY 09/04/20 [History] Ketorolac 0.5% Ophth Soln [Acular 0.5%] 1 drop BOTH EYES TID 09/04/20 [History] Morphine Sulfate [Ms Contin] 30 mg PO Q12H 09/04/20 [History] PARoxetine [Paxil] 20 mg PO HS 09/04/20 [History] Prednisolone Acetate/Pf [Prednisolone Acet 1% Eye Drop] See Taper BOTH EYES DIRECTED 09/04/20 [History] amLODIPine [Norvasc] 5 mg PO HS 09/04/20 [History] Albuterol Inhaler [Ventolin Hfa Inhaler] 2 puff INHALATION RT-QID PRN #1 inhaler 09/07/20 [Rx] Azithromycin 250 mg PO DAILY 5 Days #5 tab 09/07/20 [Rx] Doxycycline [Vibramycin] 100 mg PO BID 5 Days #10 capsule 09/07/20 [Rx] Follow up Appointment(s)/Referral(s): Gonzales Drew MD [Primary Care Provider] - 1 Week Juan Carlos Rolle DO [REFERRING] - 1 Week John Otoole DO [Doctor of Osteopathic Medicine] - 1 Week Patient Instructions/Handouts: Anemia (DC), Pneumonia (DC) Activity/Diet/Wound Care/Special Instructions: PNEUMONIA 1. Continue coughing and breathing exercises to help clear your lungs of secretions. 2. Sit upright during the day to promote lung expansion. Avoid lying flat. 3. Use incentive spirometer every hour to open your airways. 4. Wash your hands before taking your medications or using your nebulizer. 5. Drink clear liquids as directed; they can help loosen secretions. Avoid milk products, as these can make secretions thicker. 6. Do not smoke, or be around others who smoke. 7. Call your physician if your shortness of breath worsens, if you develop an increased fever greater than 101. Discharge Disposition: HOME SELF-CARE
== END 2020-09-07 11:34 | disposition home or self-care (01) | DRG 291 ==
LOC: EC 10:52 → 3SCARD 13:54
PROVIDERS: ADMIT Internal Medicine Geriatric Medicine; ATTEND Internal Medicine Geriatric Medicine
PROC: 30233N1 Transfusion of Nonautologous Red Blood Cells into Peripheral Vein, Percutaneous Approach (ICD-10-PCS; principal; 2020-09-05)
PROC: 5A09357 Assistance with Respiratory Ventilation, Less than 24 Consecutive Hours, Continuous Positive Airway Pressure (ICD-10-PCS; 2020-09-05)
PROC: 5A1D70Z Performance of Urinary Filtration, Intermittent, Less than 6 Hours Per Day (ICD-10-PCS; 2020-09-05)
DX: I13.2 Hypertensive heart and chronic kidney disease with heart failure and with stage 5 chronic kidney disease, or end stage renal disease (principal); I50.43 Acute on chronic combined systolic (congestive) and diastolic (congestive) heart failure; J18.9 Pneumonia, unspecified organism; J96.21 Acute and chronic respiratory failure with hypoxia; J96.22 Acute and chronic respiratory failure with hypercapnia; N18.6 End stage renal disease; J44.0 Chronic obstructive pulmonary disease with (acute) lower respiratory infection; J44.1 Chronic obstructive pulmonary disease with (acute) exacerbation; D62 Acute posthemorrhagic anemia; F33.9 Major depressive disorder, recurrent, unspecified; K86.1 Other chronic pancreatitis; I69.351 Hemiplegia and hemiparesis following cerebral infarction affecting right dominant side; F41.9 Anxiety disorder, unspecified; G47.33 Obstructive sleep apnea (adult) (pediatric); D63.1 Anemia in chronic kidney disease; E11.22 Type 2 diabetes mellitus with diabetic chronic kidney disease; E11.42 Type 2 diabetes mellitus with diabetic polyneuropathy; E78.5 Hyperlipidemia, unspecified; E83.51 Hypocalcemia; E87.5 Hyperkalemia; I25.119 Atherosclerotic heart disease of native coronary artery with unspecified angina pectoris; I42.9 Cardiomyopathy, unspecified; Z20.822 Contact with and (suspected) exposure to COVID-19; K21.9 Gastro-esophageal reflux disease without esophagitis; M19.90 Unspecified osteoarthritis, unspecified site; E83.9 Disorder of mineral metabolism, unspecified; Z79.4 Long term (current) use of insulin; Z79.899 Other long term (current) drug therapy; Z82.49 Family history of ischemic heart disease and other diseases of the circulatory system; Z87.891 Personal history of nicotine dependence; Z95.5 Presence of coronary angioplasty implant and graft; Z99.2 Dependence on renal dialysis; Z99.89 Dependence on other enabling machines and devices; Z90.49 Acquired absence of other specified parts of digestive tract; G89.29 Other chronic pain; F10.21 Alcohol dependence, in remission; Z87.19 Personal history of other diseases of the digestive system
CPT/HCPCS: 36415; 36600; 71045; 80048; 80053; 82805; 83540; 83550; 83735; 83880; 85025; 85027; 85610; 85730; 86850; 86900; 86901; 86920; 87040; 87502; 87635; 90935; 93005; 93306; 94640; 94660; 94760; 96365; 96375; 99291

== ENCOUNTER 2020-09-25 09:42 | Inpatient (IN) | payer MEDICARE ==
[2020-09-25] MEDS ORDERED: ACETAMINOPHEN TAB 325 MG TAB PO STA (10:14)
--- NOTE | 2020-09-25 10:14 | ED ---
General Adult HPI - General Chief complaint: Upper Respiratory Infection Stated complaint: coughing up blood Time Seen by Provider: 09/25/20 09:48 Source: patient, RN notes reviewed Mode of arrival: wheelchair Limitations: no limitations - History of Present Illness Initial comments: This is a 59-year-old male presents emergency Department chief complaint of generalized weakness. Patient states she does not feel well in general. He was discharged approximately 2 weeks ago after having pneumonia. Patient states that he went home on antibiotics and finished. Patient states he woke up today did not go to dialysis as he felt sick. Patient has a temporal 100.5. Patient states he had an episode where he coughed up blood in which this is what he came the emergency department for a few weeks ago. Patient denies any leg pain or leg swelling. Patient states he does dialysis on Friday, Friday, Friday and he did complete all this treatment last week. Patient does not produce any urine. Patient states his renal failure is from diabetes. - Related Data Home Medications Medication Instructions Recorded Confirmed ALPRAZolam [Xanax] 0.25 mg PO DAILY PRN 06/04/18 09/25/20 HYDROcodone/APAP 10-325MG [[place] 1 tab PO Q4H 06/04/18 09/25/20 10-325] ARIPiprazole [Abilify] 5 mg PO HS 01/04/19 09/25/20 Bumetanide [BUMEX] 4 mg PO BID 01/04/19 09/25/20 Dialyvite 1 tab PO HS 01/04/19 09/25/20 Insulin Aspart [NovoLOG Flexpen] 20 unit SQ AC-TID 01/04/19 09/25/20 Omeprazole [PriLOSEC] 20 mg PO DAILY@1500 01/04/19 09/25/20 Aspirin EC [Ecotrin Low Dose] 81 mg PO HS 09/04/20 09/25/20 Calcium Acetate [PhosLo] 1,334 mg PO AC-TID PRN 09/04/20 09/25/20 Carvedilol [Coreg] 12.5 mg PO BID 09/04/20 09/25/20 Docusate [Colace] 100 mg PO BID PRN 09/04/20 09/25/20 Isosorbide Mononitrate ER [Imdur] 30 mg PO DAILY 09/04/20 09/25/20 Morphine Sulfate [Ms Contin] 30 mg PO Q12H 09/04/20 09/25/20 PARoxetine [Paxil] 20 mg PO HS 09/04/20 09/25/20 amLODIPine [Norvasc] 5 mg PO HS 09/04/20 09/25/20 Previous Rx's Medication Instructions Recorded Atorvastatin Calcium [Lipitor] 80 mg PO HS #30 tab 03/01/14 Albuterol Inhaler [Ventolin Hfa 2 puff INHALATION RT-QID PRN #1 09/07/20 Inhaler] inhaler Allergies Allergy/AdvReac Type Severity Reaction Status Date / Time No Known Allergies Allergy Verified 09/25/20 11:10 Review of Systems ROS Statement: Those systems with pertinent positive or pertinent negative responses have been documented in the HPI. ROS Other: All systems not noted in ROS Statement are negative. Past Medical History Past Medical History: Coronary Artery Disease (CAD), Chest Pain / Angina, Heart Failure, COPD, CVA/TIA, Diabetes Mellitus, GERD/Reflux, Hyperlipidemia, Hypertension, Osteoarthritis (OA), Renal Disease, Respiratory Disorder, Sleep Apnea/CPAP/BIPAP Additional Past Medical History / Comment(s): Known history of coronary artery disease, congestion heart failure with segmental wall motion abnormalities and ejection fraction of 30%, COPD, diabetes mellitus type 2, peripheral neuropathy, end-stage renal disease currently on hemodialysis 3 times a week MW, history of alcoholism, history of chronic pancreatitis, the patient has not drank alcohol for more than 70s, history of chronic CVA with some right-sided weakness, history of ARDS requiring intubation mechanical ventilation and was quite prolonged and the patient required tracheostomy tube insertion for that, history of splenomegaly, chronic anemia, chronic back pain, chronic neck pain, chronic narcotic dependence him a chronic thrombocytopenia, hypertension, history of esophageal varices without bleeding, history of opiate overdose History of Any Multi-Drug Resistant Organisms: None Reported Past Surgical History: Appendectomy, Back Surgery, Cholecystectomy, Heart Catheterization, Heart Catheterization With Stent Additional Past Surgical History / Comment(s): PCI with stents, tracheostomy, bladder stone removal, anterior cervical disc fusion/plate, jugular catheter insertion since removed, colonoscopy."dialysis graft site lt upper arm"-no bp or blood draw lt arm, peritoneal catheter-since removed. Past Anesthesia/Blood Transfusion Reactions: No Reported Reaction Date of Last Stent Placement:: 2013 Past Psychological History: Anxiety, Depression Smoking Status: Former smoker Past Alcohol Use History: None Reported Past Drug Use History: None Reported - Past Family History Father Family Medical History: Coronary Artery Disease (CAD), Myocardial Infarction (MD) Additional Family Medical History / Comment(s): Father of a MD at the age of 65yrs. Mother Family Medical History: Coronary Artery Disease (CAD), Myocardial Infarction (MD ) Additional Family Medical History / Comment(s): Mother of a MD at the age of 55yrs. Brother(s) Family Medical History: Cancer Daughter(s) Family Medical History: Vascular Disorder (VSD) General Exam Limitations: no limitations General appearance: alert, in no apparent distress Head exam: Present: atraumatic, normocephalic, normal inspection Eye exam: Present: normal appearance, PERRL, EOMI. Absent: scleral icterus, conjunctival injection, periorbital swelling ENT exam: Present: normal exam, mucous membranes moist Neck exam: Present: normal inspection, full ROM. Absent: tenderness, meningismus, lymphadenopathy Respiratory exam: Present: rhonchi (Faint), decreased breath sounds. Absent: normal lung sounds bilaterally, respiratory distress, wheezes, rales, stridor Cardiovascular Exam: Present: regular rate, normal rhythm, normal heart sounds. Absent: systolic murmur, diastolic murmur, rubs, gallop, clicks GI/Abdominal exam: Present: soft, normal bowel sounds. Absent: distended, tenderness, guarding, rebound, rigid Extremities exam: Absent: pedal edema, calf tenderness Neurological exam: Present: alert, oriented X3 Skin exam: Present: warm, dry, intact, normal color. Absent: rash Course Vital Signs 09/25/20 09/25/20 09:42 10:28 Temperature 100.5 F H Pulse Rate 94 89 Respiratory 18 18 Rate Blood Pressure 189/71 174/86 O2 Sat by Pulse 93 L 93 L Oximetry Medical Decision Making - Medical Decision Making Vitals are reviewed patient has chronic renal failure on dialysis. Patient does have mild hypokalemia. Patient x-ray shows evidence of diffuse pneumonia and is positive for covid 19. Patient will be admitted for further evaluation treatme nt and management. - Lab Data Result diagrams: 09/25/20 10:09 09/25/20 10:09 Lab Results 09/25/20 09/25/20 09/25/20 Range/Units 10:09 10:09 10:09 WBC 5.5 (3.8-10.6) k/uL RBC 2.85 L (4.30-5.90) m/uL Hgb 9.3 L D (13.0-17.5) gm/dL Hct 27.4 L (39.0-53.0) % MCV 95.8 (80.0-100.0) fL MCH 32.4 (25.0-35.0) pg MCHC 33.8 (31.0-37.0) g/dL RDW 15.6 H (11.5-15.5) % Plt Count 48 L (150-450) k/uL MPV 9.4 Neutrophils % 83 % Lymphocytes % 12 % Monocytes % 4 % Eosinophils % 0 % Basophils % 0 % Neutrophils # 4.6 (1.3-7.7) k/uL Lymphocytes # 0.6 L (1.0-4.8) k/uL Monocytes # 0.2 (0-1.0) k/uL Eosinophils # 0.0 (0-0.7) k/uL Basophils # 0.0 (0-0.2) k/uL Manual Slide Review Performed Poikilocytosis Slight PT 11.0 (9.0-12.0) sec INR 1.0 (<1.2) APTT 25.6 (22.0-30.0) sec Sodium 134 L (137-145) mmol/L Potassium 5.7 H (3.5-5.1) mmol/L Chloride 95 L (98-107) mmol/L Carbon Dioxide 25 (22-30) mmol/L Anion Gap 14 mmol/L BUN 71 H (9-20) mg/dL Creatinine 7.58 H* (0.66-1.25) mg/dL Est GFR (CKD-EPI)AfAm 8 (>60 ml/min/1.73 sqM) Est GFR (CKD-EPI)NonAf 7 (>60 ml/min/1.73 sqM) Glucose 167 H (74-99) mg/dL Plasma Lactic Acid [place] (0.7-2.0) mmol/L Calcium 7.0 L (8.4-10.2) mg/dL Phosphorus 4.5 (2.5-4.5) mg/dL Magnesium 1.8 (1.6-2.3) mg/dL Total Bilirubin 2.0 H (0.2-1.3) mg/dL AST 32 (17-59) U/L ALT 23 (4-49) U/L Alkaline Phosphatase 56 (38-126) U/L Troponin I (0.000-0.034) ng/mL NT-Pro-B Natriuret Pep pg/mL Total Protein 6.5 (6.3-8.2) g/dL Albumin 3.6 (3.5-5.0) g/dL Coronavirus (PCR) (Not Detectd) 09/25/20 09/25/20 09/25/20 Range/Units 10:09 10:09 10:09 WBC (3.8-10.6) k/uL RBC (4.30-5.90) m/uL Hgb (13.0-17.5) gm/dL Hct (39.0-53.0) % MCV (80.0-100.0) fL MCH (25.0-35.0) pg MCHC (31.0-37.0) g/dL RDW (11.5-15.5) % Plt Count (150-450) k/uL MPV Neutrophils % % Lymphocytes % % Monocytes % % Eosinophils % % Basophils % % Neutrophils # (1.3-7.7) k/uL Lymphocytes # (1.0-4.8) k/uL Monocytes # (0-1.0) k/uL Eosinophils # (0-0.7) k/uL Basophils # (0-0.2) k/uL Manual Slide Review Poikilocytosis PT (9.0-12.0) sec INR (<1.2) APTT (22.0-30.0) sec Sodium (137-145) mmol/L Potassium (3.5-5.1) mmol/L Chloride (98-107) mmol/L Carbon Dioxide (22-30) mmol/L Anion Gap mmol/L BUN (9-20) mg/dL Creatinine (0.66-1.25) mg/dL Est GFR (CKD-EPI)AfAm (>60 ml/min/1.73 sqM) Est GFR (CKD-EPI)NonAf (>60 ml/min/1.73 sqM) Glucose (74-99) mg/dL Plasma Lactic Acid [place] 1.0 (0.7-2.0) mmol/L Calcium (8.4-10.2) mg/dL Phosphorus (2.5-4.5) mg/dL Magnesium (1.6-2.3) mg/dL Total Bilirubin (0.2-1.3) mg/dL AST (17-59) U/L ALT (4-49) U/L Alkaline Phosphatase (38-126) U/L Troponin I 0.051 H* (0.000-0.034) ng/mL NT-Pro-B Natriuret Pep 8080 pg/mL Total Protein (6.3-8.2) g/dL Albumin (3.5-5.0) g/dL Coronavirus (PCR) (Not Detectd) 09/25/20 Range/Units 10:23 WBC (3.8-10.6) k/uL RBC (4.30-5.90) m/uL Hgb (13.0-17.5) gm/dL Hct (39.0-53.0) % MCV (80.0-100.0) fL MCH (25.0-35.0) pg MCHC (31.0-37.0) g/dL RDW (11.5-15.5) % Plt Count (150-450) k/uL MPV Neutrophils % % Lymphocytes % % Monocytes % % Eosinophils % % Basophils % % Neutrophils # (1.3-7.7) k/uL Lymphocytes # (1.0-4.8) k/uL Monocytes # (0-1.0) k/uL Eosinophils # (0-0.7) k/uL Basophils # (0-0.2) k/uL Manual Slide Review Poikilocytosis PT (9.0-12.0) sec INR (<1.2) APTT (22.0-30.0) sec Sodium (137-145) mmol/L Potassium (3.5-5.1) mmol/L Chloride (98-107) mmol/L Carbon Dioxide (22-30) mmol/L Anion Gap mmol/L BUN (9-20) mg/dL Creatinine (0.66-1.25) mg/dL Est GFR (CKD-EPI)AfAm (>60 ml/min/1.73 sqM) Est GFR (CKD-EPI)NonAf (>60 ml/min/1.73 sqM) Glucose (74-99) mg/dL Plasma Lactic Acid [place] (0.7-2.0) mmol/L Calcium (8.4-10.2) mg/dL Phosphorus (2.5-4.5) mg/dL Magnesium (1.6-2.3) mg/dL Total Bilirubin (0.2-1.3) mg/dL AST (17-59) U/L ALT (4-49) U/L Alkaline Phosphatase (38-126) U/L Troponin I (0.000-0.034) ng/mL NT-Pro-B Natriuret Pep pg/mL Total Protein (6.3-8.2) g/dL Albumin (3.5-5.0) g/dL Coronavirus (PCR) Detected A (Not Detectd) Disposition Clinical Impression: COVID-19, Pneumonia, ESRD (end stage renal disease) Disposition: ADMITTED IP TO THIS HOSP Condition: Poor Referrals: Gonzales Drew MD [Primary Care Provider] - 1-2 days
[2020-09-25 10:29] LABS: Basophils % (A) 0 %; Eosinophils % (A) 0 %; HCT 27.4 % (39.0-53.0); Lymphocytes # (A) 0.6 k/uL (1.0-4.8); Lymphocytes % (A) 12 %; MCH 32.4 pg (25.0-35.0); MCHC 33.8 g/dL (31.0-37.0); MCV 95.8 fL (80.0-100.0); Mean Platelet Volume 9.4; Monocytes # (A) 0.2 k/uL (0-1.0); Monocytes % (A) 4 %; Neutrophils # (A) 4.6 k/uL (1.3-7.7); Neutrophils % (A) 83 %; Poikilocytosis Slight; RBC 2.85 m/uL (4.30-5.90); RDW 15.6 % (11.5-15.5); WBC 5.5 k/uL (3.8-10.6)
[2020-09-25 10:32] LABS: Partial Thromboplastin Time 25.6 sec (22.0-30.0)
[2020-09-25 10:33] LABS: Albumin 3.6 g/dL (3.5-5.0); Magnesium 1.8 mg/dL (1.6-2.3); Phosphorus 4.5 mg/dL (2.5-4.5); Potassium 5.7 mmol/L (3.5-5.1); Total Protein 6.5 g/dL (6.3-8.2)
[2020-09-25 10:43] LABS: HGB 9.3 gm/dL (13.0-17.5)
--- NOTE | 2020-09-25 10:48 | XR ---
EXAMINATION TYPE: XR chest 2V DATE OF EXAM: 09/25/2020 COMPARISON: Chest x-ray September 06, 2020 HISTORY: Weakness and cough. TECHNIQUE: Frontal and lateral views of the chest are obtained. FINDINGS: Heart size stable and upper limits of normal. Anterior fusion plate lower cervical spine r edemonstrated. Background chronic parenchymal change with no peripheral left mid to lower lung consol idation. 2 health lingular and left lower lobe component on lateral view. Possible developing right h ilar opacity. No pleural effusion or pneumothorax. IMPRESSION: New Lingular and left lower lobe pneumonic infiltrate. Possible developing central right hilar infiltrate. Correlate to exclude covid 19 infection given lower lung multifocal findings.
[2020-09-25 11:09] LABS: Platelet Count 48 k/uL (150-450)
[2020-09-25] MEDS ORDERED: NALOXONE 0.4 MG/ML 1 ML VIAL IV PRN (11:49)
[2020-09-25] MEDS ORDERED: ONDANSETRON 4 MG/2 ML VIAL IVP PRN (11:49)
[2020-09-25] MEDS ORDERED: ACETAMINOPHEN TAB 325 MG TAB PO PRN (11:49)
[2020-09-25 12:56] LABS: C Reactive Protein 141.5 mg/L (<10.0)
[2020-09-25] MEDS ORDERED: CALCIUM ACETATE 667 MG TAB PO PRN (13:39)
[2020-09-25] MEDS ORDERED: DOCUSATE 100 MG CAP PO PRN (13:39)
--- NOTE | 2020-09-25 16:22 | P.CNPUL ---
History of Present Illness Consult date: 09/25/20 Reason for consult: dyspnea Chief complaint: Dyspnea, generalized weakness, fever, hemoptysis History of present illness: This is a 59-year-old white male with past medical history of COPD, chronic diastolic CHF, end-stage renal disease on hemodialysis, type 2 diabetes mellitus, hypertension, hyperlipidemia, chronic pain, who was recently hospitalized from September 04 through 09/07/2020 for acute hypoxic rest or a dirk lure related to right lower lobe pneumonia, acute exacerbation of CHF and COPD. He was COVID negative during that admission when tested on 09/04/2020. Patient presented to the hospital on 09/25/2020 with complaints of generalized weakness, cough, one episode of hemoptysis, low-grade fever with a temp of 100.5F. He states his been compliant with hemodialysis and she is usually dialyzed on Friday schedule. 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 Patient's chest x-ray shows a new lingular and left lower lobe pneumonic infiltrate, possibly developing central right hilar infiltrate. COVID 19 PCR was positive. Is admitting to episode of nausea and vomiting yesterday. He is currently on room air, with pulse ox of 93-94%, blood pressure was elevated on admission improved with hemodialysis, low-grade fever this afternoon. Patient remains on room air, white blood cell count is 5.5, hemoglobin is 9.3, platelet count was 48, sodium is 134, potassium is 5.7, chloride is 95, B1 is 71 creatinine 7.58, troponin was 0.051, proBNP was 8080, oral improved since last admission, CRP is 141.5, and LDH is 572. Review of Systems All systems: negative Constitutional: Denies chills, Denies fever Eyes: denies blurred vision, denies pain Ears, nose, mouth and throat: Denies headache, Denies sore throat Cardiovascular: Denies chest pain, Denies shortness of breath Respiratory: Reports dyspnea, Reports respiratory infections, Denies cough Gastrointestinal: Denies abdominal pain, Denies diarrhea, Denies nausea, Denies vomiting Musculoskeletal: Denies myalgias Integumentary: Denies pruritus, Denies rash Neurological: Denies numbness, Denies weakness Psychiatric: Denies anxiety, Denies depression Endocrine: Denies fatigue, Denies weight change Past Medical History Past Medical History: Coronary Artery Disease (CAD), Chest Pain / Angina, Heart Failure, COPD, CVA/TIA, Diabetes Mellitus, GERD/Reflux, Hyperlipidemia, Hypertension, Osteoarthritis (OA), Renal Disease, Respiratory Disorder, Sleep Apnea/CPAP/BIPAP Additional Past Medical History / Comment(s): Pt recently admitted to [facility] on 09/04/20 with acute respiratory failure d/t combination of fluid overload/exacerbation COPD/exacerbation CHF and R side pneumonia. Other hx: Pt tested covid + on 09/25/20 at [facility], IDDM type II, ESRD with dialysis M/W/F, neuropathy bilateral feet/hands, chronic anemia, severe cardiomyopathy/EF 30%, CVA with some R sided weakness, past ETOH abuse, esophageal varicies/nonbleeding, chronic pancreatitis, splenomegaly, chronic thrombocytopenia, MONTSE with Cpap, hx ARDS with sign language interpreter vent/trach, chronic cervical and back pain History of Any Multi-Drug Resistant Organisms: None Reported Past Surgical History: Appendectomy, Back Surgery, Cholecystectomy, Heart Catheterization, Heart Catheterization With Stent Additional Past Surgical History / Comment(s): Recent cardiac cath, PCI with stents, anterior cervical fusion with plate, R arm dialysis graft, nonfunctioning L upper arm dialysis graft, tracheostomy, colonoscopy. Past Anesthesia/Blood Transfusion Reactions: No Reported Reaction Date of Last Stent Placement:: 2010 Smoking Status: Former smoker - Past Family History Father Family Medical History: Coronary Artery Disease (CAD), Myocardial Infarction (DC) Additional Family Medical History / Comment(s): Father of a DC at the age of 65yrs. Mother Family Medical History: Coronary Artery Disease (CAD), Myocardial Infarction (DC) Additional Family Medical History / Comment(s): Mother of a DC at the age of 55yrs. Brother(s) Family Medical History: Cancer Daughter(s) Family Medical History: Vascular Disorder (VSD) Medications and Allergies Home Medications Medication Instructions Recorded Confirmed Type Atorvastatin Calcium [Lipitor] 80 mg PO HS #30 tab 03/01/14 09/25/20 Rx ALPRAZolam [Xanax] 0.25 mg PO DAILY PRN 06/04/18 09/25/20 History HYDROcodone/APAP 10-325MG [[place] 1 tab PO Q4H 06/04/18 09/25/20 History 10-325] ARIPiprazole [Abilify] 5 mg PO HS 01/04/19 09/25/20 History Bumetanide [BUMEX] 4 mg PO BID 01/04/19 09/25/20 History Dialyvite 1 tab PO HS 01/04/19 09/25/20 History Insulin Aspart [NovoLOG Flexpen] 20 unit SQ AC-TID 01/04/19 09/25/20 History Omeprazole [PriLOSEC] 20 mg PO DAILY@1500 01/04/19 09/25/20 History Aspirin EC [Ecotrin Low Dose] 81 mg PO HS 09/04/20 09/25/20 History Calcium Acetate [PhosLo] 1,334 mg PO AC-TID PRN 09/04/20 09/25/20 History Carvedilol [Coreg] 12.5 mg PO BID 09/04/20 09/25/20 History Docusate [Colace] 100 mg PO BID PRN 09/04/20 09/25/20 History Isosorbide Mononitrate ER [Imdur] 30 mg PO DAILY 09/04/20 09/25/20 History Morphine Sulfate [Ms Contin] 30 mg PO Q12H 09/04/20 09/25/20 History PARoxetine [Paxil] 20 mg PO HS 09/04/20 09/25/20 History amLODIPine [Norvasc] 5 mg PO HS 09/04/20 09/25/20 History Albuterol Inhaler [Ventolin Hfa 2 puff INHALATION RT-QID PRN #1 09/07/20 09/25/20 Rx Inhaler] inhaler Allergies Allergy/AdvReac Type Severity Reaction Status Date / Time No Known Allergies Allergy Verified 09/25/20 11:10 Physical Exam Vitals: Vital Signs Temp Pulse Resp BP Pulse Ox 09/25/20 12:28 99 F 78 18 106/48 93 L 09/25/20 12:12 78 18 96/57 94 L 09/25/20 10:28 89 18 174/86 93 L 09/25/20 09:42 100.5 F H 94 18 189/71 93 L Intake and Output 09/25/20 09/25/20 09/25/20 06:59 14:59 22:59 Intake Total 180 Balance 180 Intake: Oral 180 Other: Weight 90.718 kg GENERAL EXAM: Alert, very pleasant, 59-year-old white male, comfortable in no apparent distress. HEAD: Normocephalic/atraumatic. EYES: Normal reaction of pupils, equal size. Conjunctiva pink, sclera white. NOSE: Clear with pink turbinates. THROAT: No erythema or exudates. NECK: No masses, no JVD, no thyroid enlargement, no adenopathy. CHEST: No chest wall deformity. Symmetrical expansion. LUNGS: Equal air entry with no crackles, wheeze, rhonchi or dullness. CVS: Regular rate and rhythm, normal S1 and S2, no gallops, no murmurs, no rubs ABDOMEN: Soft, nontender. No hepatosplenomegaly, normal bowel sounds, no guarding or rigidity. EXTREMITIES: No clubbing, no edema, no cyanosis, 2+ pulses and upper and lower extremities. MUSCULOSKELETAL: Muscle strength and tone normal. SPINE: No scoliosis or deformity SKIN: No rashes CENTRAL NERVOUS SYSTEM: Alert and oriented -3. No focal deficits, tone is normal in all 4 extremities. PSYCHIATRIC: Alert and oriented -3. Appropriate affect. Intact judgment and insight. Results - Laboratory Findings CBC and BMP: 09/25/20 10:09 09/25/20 10:09 PT/INR, D-dimer PT 11.0 sec (9.0-12.0) 09/25/20 10:09 INR 1.0 (<1.2) 09/25/20 10:09 Abnormal lab findings: Abnormal Labs 09/25/20 09/25/20 09/25/20 10:09 10:09 10:09 RBC 2.85 L Hgb 9.3 L D Hct 27.4 L RDW 15.6 H Plt Count 48 L Lymphocytes # 0.6 L Sodium 134 L Potassium 5.7 H Chloride 95 L BUN 71 H Creatinine 7.58 H* Glucose 167 H Calcium 7.0 L Total Bilirubin 2.0 H Troponin I 0.051 H* C-Reactive Protein Coronavirus (PCR) 09/25/20 09/25/20 10:09 10:23 RBC Hgb Hct RDW Plt Count Lymphocytes # Sodium Potassium Chloride BUN Creatinine Glucose Calcium Total Bilirubin Troponin I C-Reactive Protein 141.5 H Coronavirus (PCR) Detected A - Diagnostic Findings Chest x-ray: report reviewed Assessment and Plan Plan: Assessment: #1. Acute hypoxic respiratory failure related to COVID 19 pneumonia, rule out possibility of bacterial pneumonia #2. Recent hospitalization for right lower lobe pneumonia, fluid overload, and COPD exacerbation from September 04 through 09/08/2020, patient was COVID 19 negative during that admission #3. Hemoptysis, single episode, possibly related to thrombocytopenia, pneumonia #4. History of coronary artery disease with catheterization at outside facility with no intervention #5. History of COPD #6. Obstructive sleep apnea, and most recently patient CPAP machine was broken #7. History of CVA #8. Diabetes mellitus #9. GERD/reflux #10. Hyperlipidemia #11. Essential hypertension #12. End-stage renal disease on Friday hemodialysis #13. Chronic thrombocytopenia #14. Severe depression #15. Past history of chronic alcoholism with history of chronic pancreatitis #16. Prior history of tracheostomy for prolonged mechanical ventilatory support related to ARDS #17. Coronary artery disease with previous stenting Plan: Continue hemodialysis, per nephrology recommendations. We'll add Decadron 6 mg daily, will add bronchodilators, we'll send for calcitonin level, d-dimer, chest x-ray reviewed. Monitor oxygenation pattern, disability case manager fever pattern, work of breathing, and a candidate for Remdesivir in view of his end-stage renal disease with GFR less than 30, and patient not requiring oxygen at this time, we'll continue to monitor closely. I performed a history & physical examination of the patient and discussed their management with my nurse practitioner, Yumiko Matta. I reviewed the nurse practitioner's note and agree with the documented findings and plan of care. Lung sounds are positive for diminished breath sounds. The findings and the impression was discussed with the patient. I attest to the documentation by the nurse practitioner. Time with Patient: Greater than 30
[2020-09-25 16:36] LABS: Glucose,Whole Blood 181 mg/dL (75-99)
--- NOTE | 2020-09-25 17:04 | P.HPIM ---
History of Present Illness H&P Date: 09/25/20 this is a 59-year-old male patient of Dr. Robison with past medical history significant for COPD, chronic diastolic CHF, end-stage renal disease on hemodialysis, type 2 diabetes mellitus, hypertension, hyperlipidemia, chronic pain who was recently hospitalized from September 04 through 09/07/2020 for acute hypoxic rest or a failure related to right lower lobe pneumonia, acute exacerbation of CHF and COPD. He was COVID negative during that admission when tested on 09/04/2020. Patient presented to the hospital on 09/25/2020 with complaints of generalized weakness, cough, one episode of hemoptysis, low-grade fever with a temp of 100.5F. He states his been compliant with hemodialysis and she is usually dialyzed on Friday schedule. 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 Patient's chest x-ray shows a new lingular and left lower lobe pneumonic infilt rate, possibly developing central right hilar infiltrate. COVID 19 PCR was positive. Is admitting to episode of nausea and vomiting yesterday. He is currently on room air, with pulse ox of 93-94%, blood pressure was elevated on admission improved with hemodialysis, low-grade fever this afternoon. Patient remains on room air, white blood cell count is 5.5, hemoglobin is 9.3, platelet count was 48, sodium is 134, potassium is 5.7, chloride is 95, B1 is 71 creatinine 7.58, troponin was 0.051, proBNP was 8080, oral improved since last admission, CRP is 141.5, and LDH is 572. Review of Systems Constitutional: Denies chills, Denies fever Eyes: denies blurred vision, denies pain Ears, nose, mouth and throat: Denies headache, Denies sore throat Cardiovascular: Denies chest pain, Respiratory: Reports dyspnea, Reports respiratory infections, Denies cough Gastrointestinal: Denies abdominal pain, Denies diarrhea, Denies nausea, Denies vomiting Musculoskeletal: Denies myalgias Integumentary: Denies pruritus, Denies rash Neurological: Denies numbness, Denies weakness Psychiatric: Denies anxiety, Denies depression Endocrine: Positive fatigue, Denies weight change Past Medical History Past Medical History: Coronary Artery Disease (CAD), Chest Pain / Angina, Heart Failure, COPD, CVA/TIA, Diabetes Mellitus, GERD/Reflux, Hyperlipidemia, Hypertension, Osteoarthritis (OA), Renal Disease, Respiratory Disorder, Sleep Apnea/CPAP/BIPAP Additional Past Medical History / Comment(s): Pt recently admitted to [facility] on 09/04/20 with acute respiratory failure d/t combination of fluid overload/exacerbation COPD/exacerbation CHF and R side pneumonia. Other hx: Pt tested covid + on 09/25/20 at [facility], IDDM type II, ESRD with dialysis M/W/F, neuropathy bilateral feet/hands, chronic anemia, severe cardiomyopathy/EF 30%, CVA with some R sided weakness, past ETOH abuse, esophageal varicies/nonbleeding, chronic pancreatitis, splenomegaly, chronic thrombocytopenia, MONTSE with Cpap, hx ARDS with longterm vent/trach, chronic cervical and back pain History of Any Multi-Drug Resistant Organisms: None Reported Past Surgical History: Appendectomy, Back Surgery, Cholecystectomy, Heart Ca theterization, Heart Catheterization With Stent Additional Past Surgical History / Comment(s): Recent cardiac cath, PCI with stents, anterior cervical fusion with plate, R arm dialysis graft, nonfunctioning L upper arm dialysis graft, tracheostomy, colonoscopy. Past Anesthesia/Blood Transfusion Reactions: No Reported Reaction Date of Last Stent Placement:: 2010 Smoking Status: Former smoker - Past Family History Father Family Medical History: Coronary Artery Disease (CAD), Myocardial Infarction (NV) Additional Family Medical History / Comment(s): Father of a NV at the age of 65yrs. Mother Family Medical History: Coronary Artery Disease (CAD), Myocardial Infarction (NV) Additional Family Medical History / Comment(s): Mother of a NV at the age of 55yrs. Brother(s) Family Medical History: Cancer Daughter(s) Family Medical History: Vascular Disorder (VSD) Medications and Allergies Home Medications Medication Instructions Recorded Confirmed Type Atorvastatin Calcium [Lipitor] 80 mg PO HS #30 tab 03/01/14 09/25/20 Rx ALPRAZolam [Xanax] 0.25 mg PO DAILY PRN 06/04/18 09/25/20 History HYDROcodone/APAP 10-325MG [[place] 1 tab PO Q4H 06/04/18 09/25/20 History 10-325] ARIPiprazole [Abilify] 5 mg PO HS 01/04/19 09/25/20 History Bumetanide [BUMEX] 4 mg PO BID 01/04/19 09/25/20 History Dialyvite 1 tab PO HS 01/04/19 09/25/20 History Insulin Aspart [NovoLOG Flexpen] 20 unit SQ AC-TID 01/04/19 09/25/20 History Omeprazole [PriLOSEC] 20 mg PO DAILY@1500 01/04/19 09/25/20 History Aspirin EC [Ecotrin Low Dose] 81 mg PO HS 09/04/20 09/25/20 History Calcium Acetate [PhosLo] 1,334 mg PO AC-TID PRN 09/04/20 09/25/20 History Carvedilol [Coreg] 12.5 mg PO BID 09/04/20 09/25/20 History Docusate [Colace] 100 mg PO BID PRN 09/04/20 09/25/20 History Isosorbide Mononitrate ER [Imdur] 30 mg PO DAILY 09/04/20 09/25/20 History Morphine Sulfate [Ms Contin] 30 mg PO Q12H 09/04/20 09/25/20 History PARoxetine [Paxil] 20 mg PO HS 09/04/20 09/25/20 History amLODIPine [Norvasc] 5 mg PO HS 09/04/20 09/25/20 History Albuterol Inhaler [Ventolin Hfa 2 puff INHALATION RT-QID PRN #1 09/07/20 09/25/20 Rx Inhaler] inhaler Allergies Allergy/AdvReac Type Severity Reaction Status Date / Time No Known Allergies Allergy Verified 09/25/20 11:10 Physical Exam Vitals: Vital Signs Temp Pulse Resp BP Pulse Ox 09/25/20 12:28 99 F 78 18 106/48 93 L 09/25/20 12:12 78 18 96/57 94 L 09/25/20 10:28 89 18 174/86 93 L 09/25/20 09:42 100.5 F H 94 18 189/71 93 L Intake and Output 09/25/20 09/25/20 09/25/20 06:59 14:59 22:59 Intake Total 180 Balance 180 Intake: Oral 180 Other: Weight 90.718 kg GENERAL EXAM: Alert, very pleasant, 59-year- male, comfortable in no apparent distress. HEAD: Normocephalic/atraumatic. EYES: Normal reaction of pupils, equal size. Conjunctiva pink, sclera white. NOSE: Clear with pink turbinates. THROAT: No erythema or exudates. NECK: No masses, no JVD, no thyroid enlargement, no adenopathy. CHEST: No chest wall deformity. Symmetrical expansion. LUNGS: Equal air entry with no crackles, wheeze, rhonchi or dullness. Diminished at bases. CVS: Regular rate and rhythm, normal S1 and S2, no gallops, no murmurs, no rubs. Right AV fistula ABDOMEN: Soft, nontender. No hepatosplenomegaly, normal bowel sounds, no guarding or rigidity. EXTREMITIES: No clubbing, no edema, no cyanosis, 2+ pulses and upper and lower extremities. MUSCULOSKELETAL: Muscle strength and tone normal. SPINE: No scoliosis or deformity SKIN: No rashes CENTRAL NERVOUS SYSTEM: Alert and oriented x3. No focal deficits, tone is normal in all 4 extremities. PSYCHIATRIC: Appropriate affect. Intact judgment and insight. Results CBC & Chem 7: 09/25/20 10:09 09/25/20 10:09 Labs: Abnormal Lab Results - Last 24 Hours (Table) 09/25/20 09/25/20 09/25/20 Range/Units 10:09 10:09 10:09 RBC 2.85 L (4.30-5.90) m/uL Hgb 9.3 L D (13.0-17.5) gm/dL Hct 27.4 L (39.0-53.0) % RDW 15.6 H (11.5-15.5) % Plt Count 48 L (150-450) k/uL Lymphocytes # 0.6 L (1.0-4.8) k/uL Sodium 134 L (137-145) mmol/L Potassium 5.7 H (3.5-5.1) mmol/L Chloride 95 L (98-107) mmol/L BUN 71 H (9-20) mg/dL Creatinine 7.58 H* (0.66-1.25) mg/dL Glucose 167 H (74-99) mg/dL POC Glucose (mg/dL) (75-99) mg/dL Calcium 7.0 L (8.4-10.2) mg/dL Total Bilirubin 2.0 H (0.2-1.3) mg/dL Troponin I 0.051 H* (0.000-0.034) ng/mL C-Reactive Protein (<10.0) mg/L Coronavirus (PCR) (Not Detectd) 09/25/20 09/25/20 09/25/20 Range/Units 10:09 10:23 16:34 RBC (4.30-5.90) m/uL Hgb (13.0-17.5) gm/dL Hct (39.0-53.0) % RDW (11.5-15.5) % Plt Count (150-450) k/uL Lymphocytes # (1.0-4.8) k/uL Sodium (137-145) mmol/L Potassium (3.5-5.1) mmol/L Chloride (98-107) mmol/L BUN (9-20) mg/dL Creatinine (0.66-1.25) mg/dL Glucose (74-99) mg/dL POC Glucose (mg/dL) 181 H (75-99) mg/dL Calcium (8.4-10.2) mg/dL Total Bilirubin (0.2-1.3) mg/dL Troponin I (0.000-0.034) ng/mL C-Reactive Protein 141.5 H (<10.0) mg/L Coronavirus (PCR) Detected A (Not Detectd) Thrombosis Risk Factor Assmnt - Choose All That Apply Any of the Below Risk Factors Present?: Yes Each Factor Represents 1 point: Abnormal pulmonary function (COPD), Heart failure (<1month), Obesity (BMI >25), Serious lung disease incl. pneumonia (< 1month) Other Risk Factors: Yes Each Risk Factor Represents 2 Points: Age 61-74 years Other congenital or acquired thrombophilia - If yes, enter type in comment: No Thrombosis Risk Factor Assessment Total Risk Factor Score: 6 Thrombosis Risk Factor Assessment Level: High Risk Assessment and Plan Plan: Assessment #1. Acute hypoxic respiratory failure related to COVID 19 pneumonia, rule out possibility of bacterial pneumonia, on Decadron 6 mg along with bronchodilators. Pulse ox 94% on room air. Monitor need for possible Remdesivir infusion. Continue vitamin supplements. Pulmonary consult in place #2. Recent hospitalization for right lower lobe pneumonia, fluid overload, and COPD exacerbation from September 04 through 09/08/2020, patient was COVID 19 negative during that admission #3. Hemoptysis, single episode, possibly related to thrombocytopenia, pneumonia #4. History of coronary artery disease with catheterization and previous stenting #5. History of COPD on albuterol #6. Obstructive sleep apnea, and most recently patient CPAP machine was broken #7. History of CVA on aspirin and statin #8. Diabetes mellitus Accu-Cheks before meals and at bedtime with NovoLog 10 units with meals and sliding scale #9. GERD/reflux on Protonix #10. Hyperlipidemia on Lipitor 80 mg at at bedtime #11. Essential hypertension on Norvasc 5 mg daily along with Coreg 12.5 mg twice a day Bumex 4 mg by mouth twice a day, Imdur 30 by mouth daily #12. End-stage renal disease on Friday hemodialysis, consult with nephrology. #13. Chronic thrombocytopenia, we'll continue to monitor labs #14. Severe depression, on Paxil 20 mg daily #15. Past history of chronic alcoholism with history of chronic pancreatitis #16. GI prophylaxis on Protonix #17. DVT prophylaxis, platelets 48 encourage early mobilization. Patient will be admitted to the hospital for minimum of 2 night stay. Discharge plan: Likely home Impression and plan of care have been directed as dictated by the signing physician. Kierra Lubin nurse practitioner acting as scribe for signing physician.
[2020-09-25] MEDS: dexAMETHasone 2 MG TAB PO SCH (17:05)
[2020-09-25] MEDS: PANTOPRAZOLE 40 MG TABLET PO SCH (17:05)
[2020-09-25] MEDS: ASCORBIC ACID 500 MG TAB PO SCH (17:06)
[2020-09-25] MEDS: HYDROcodone/APAP 10-325MG 1 EACH TAB PO SCH ×3 (17:06→21:44)
[2020-09-25] MEDS: INSULIN ASPART (NovoLOG) 100 UNIT/ML VIAL SQ SCH ×3 (17:07→21:43)
[2020-09-25 20:43] LABS: Glucose,Whole Blood 267 mg/dL (75-99)
[2020-09-25] MEDS: MORPHINE SULFATE ER 30 MG TABLET PO SCH (21:00)
[2020-09-25] MEDS: BUMETANIDE 1 MG TAB PO SCH (21:43)
[2020-09-25] MEDS: PARoxetine 20 MG TAB PO SCH (21:44)
[2020-09-25] MEDS: FOLIC ACID-VIT B COMPLEX-VIT C 1 CAP PO SCH (21:44)
[2020-09-25] MEDS: amLODIPine 5 MG TAB PO SCH (21:44)
[2020-09-25] MEDS: ATORVASTATIN 80 MG TAB PO SCH (21:44)
[2020-09-25] MEDS: ARIPiprazole 5 MG TAB PO SCH (21:44)
[2020-09-25] MEDS: carvediloL 12.5 MG TAB PO SCH (21:44)
[2020-09-25] MEDS: ASPIRIN 81 MG PO SCH (21:44)
[2020-09-25] MEDS: ALPRAZolam 0.25 MG TAB PO PRN (21:55)
[2020-09-26] MEDS: HYDROcodone/APAP 10-325MG 1 EACH TAB PO SCH ×6 (01:40→21:32)
[2020-09-26 01:58] LABS: Hemoglobin A1C 6.1 % (4.0-6.0)
[2020-09-26] MEDS: MORPHINE SULFATE ER 30 MG TABLET PO SCH ×2 (03:48→20:40)
[2020-09-26 06:10] LABS: Glucose,Whole Blood 337 mg/dL (75-99)
[2020-09-26 07:14] LABS: Glucose,Whole Blood 298 mg/dL (75-99)
[2020-09-26] MEDS: INSULIN ASPART (NovoLOG) 100 UNIT/ML VIAL SQ SCH ×7 (08:12→21:35)
[2020-09-26] MEDS: ZINC SULFATE 220 MG CAP PO SCH (09:02)
[2020-09-26] MEDS: CHOLECALCIFEROL 25 MCG (1000 IU) TABLET PO SCH (09:02)
[2020-09-26] MEDS: carvediloL 12.5 MG TAB PO SCH ×2 (09:02→21:31)
[2020-09-26] MEDS: dexAMETHasone 2 MG TAB PO SCH (09:02)
[2020-09-26] MEDS: BUMETANIDE 1 MG TAB PO SCH ×2 (09:03→21:31)
[2020-09-26] MEDS: ASCORBIC ACID 500 MG TAB PO SCH (09:03)
[2020-09-26] MEDS: ISOSORBIDE MONONITRATE ER 30 MG TAB.ER.24H PO SCH (09:04)
--- NOTE | 2020-09-26 10:33 | P.NPCON ---
History of Present Illness - Reason for Consult end stage renal disease - History of Present Illness Reason for consult patient: End-stage renal disease History of present illness: Patient is a 59-year-old male seen in renal consultation for end-stage renal disease. He is maintained on hemodialysis on Friday schedule via right upper extremity AV fistula at [facility]. Patient presented to the hospital yesterday due to hemoptysis. Patient states he noticed blood in his sputum while coughing and came to the hospital. He did test positive for covid- 19. Patient states he did have a low-grade fever around 99F at home. Blood pressure stable. No vomiting or diarrhea. No chest pain or shortness of breath. He did undergo dialysis yesterday in the hospital. He is maintained on steroids inSync at this time. Currently on room air. No abdominal pain. No edema. Oral intake is fair. Vital signs are stable. General: The patient appeared well nourished and normally developed. HEENT: Head exam is unremarkable. Neck is without jugular venous distension. LUNGS: Breath sounds decreased. HEART: Rate and Rhythm are regular. ABDOMEN: Soft, nontender. EXTREMITITES: No edema. Past Medical History Past Medical History: Coronary Artery Disease (CAD), Chest Pain / Angina, Heart Failure, COPD, CVA/TIA, Diabetes Mellitus, GERD/Reflux, Hyperlipidemia, Hypertension, Osteoarthritis (OA), Renal Disease, Respiratory Disorder, Sleep Apnea/CPAP/BIPAP Additional Past Medical History / Comment(s): Pt recently admitted to [facility] on 09/04/20 with acute respiratory failure d/t combination of fluid overload/exacerbation COPD/exacerbation CHF and R side pneumonia. Other hx: Pt tested covid + on 09/25/20 at [facility], IDDM type II, ESRD with dialysis M/W/F, neuropathy bilateral feet/hands, chronic anemia, severe cardiomyopathy/EF 30%, CVA with some R sided weakness, past ETOH abuse, esophageal varicies/nonbleeding, chronic pancreatitis, splenomegaly, chronic thrombocytopenia, MONTSE with Cpap, hx ARDS with extension agent vent/trach, chronic cervical and back pain History of Any Multi-Drug Resistant Organisms: None Reported Past Surgical History: Appendectomy, Back Surgery, Cholecystectomy, Heart Catheterization, Heart Catheterization With Stent Additional Past Surgical History / Comment(s): Recent cardiac cath, PCI with stents, anterior cervical fusion with plate, R arm dialysis graft, nonfunctioning L upper arm dialysis graft, tracheostomy, colonoscopy. Past Anesthesia/Blood Transfusion Reactions: No Reported Reaction Date of Last Stent Placement:: 2010 Smoking Status: Former smoker - Past Family History Father Family Medical History: Coronary Artery Disease (CAD), Myocardial Infarction (AZ) Additional Family Medical History / Comment(s): Father of a AZ at the age of 65yrs. Mother Family Medical History: Coronary Artery Disease (CAD), Myocardial Infarction (AZ) Additional Family Medical History / Comment(s): Mother of a AZ at the age of 55yrs. Brother(s) Family Medical History: Cancer Daughter(s) Family Medical History: Vascular Disorder (VSD) Medications and Allergies Home Medications Medication Instructions Recorded Confirmed Type Atorvastatin Calcium [Lipitor] 80 mg PO HS #30 tab 03/01/14 09/25/20 Rx ALPRAZolam [Xanax] 0.25 mg PO DAILY PRN 06/04/18 09/25/20 History HYDROcodone/APAP 10-325MG [[place] 1 tab PO Q4H 06/04/18 09/25/20 History 10-325] ARIPiprazole [Abilify] 5 mg PO HS 01/04/19 09/25/20 History Bumetanide [BUMEX] 4 mg PO BID 01/04/19 09/25/20 History Dialyvite 1 tab PO HS 01/04/19 09/25/20 History Insulin Aspart [NovoLOG Flexpen] 20 unit SQ AC-TID 01/04/19 09/25/20 History Omeprazole [PriLOSEC] 20 mg PO DAILY@1500 01/04/19 09/25/20 History Aspirin EC [Ecotrin Low Dose] 81 mg PO HS 09/04/20 09/25/20 History Calcium Acetate [PhosLo] 1,334 mg PO AC-TID PRN 09/04/20 09/25/20 History Carvedilol [Coreg] 12.5 mg PO BID 09/04/20 09/25/20 History Docusate [Colace] 100 mg PO BID PRN 09/04/20 09/25/20 History Isosorbide Mononitrate ER [Imdur] 30 mg PO DAILY 09/04/20 09/25/20 History Morphine Sulfate [Ms Contin] 30 mg PO Q12H 09/04/20 09/25/20 History PARoxetine [Paxil] 20 mg PO HS 09/04/20 09/25/20 History amLODIPine [Norvasc] 5 mg PO HS 09/04/20 09/25/20 History Albuterol Inhaler [Ventolin Hfa 2 puff INHALATION RT-QID PRN #1 09/07/20 09/25/20 Rx Inhaler] inhaler Allergies Allergy/AdvReac Type Severity Reaction Status Date / Time No Known Allergies Allergy Verified 09/25/20 11:10 Physical Exam Vitals: Vital Signs Temp Pulse Pulse Resp BP BP Pulse Ox 09/26/20 03:49 98.6 F 62 18 125/60 98 09/25/20 23:45 97.8 F 63 18 142/67 96 09/25/20 20:00 98.4 F 65 20 133/63 94 L 09/25/20 17:00 18 119/65 99 09/25/20 16:56 97.8 F 81 18 159/65 09/25/20 14:00 81 18 09/25/20 12:28 99 F 78 18 106/48 93 L 09/25/20 12:12 78 18 96/57 94 L 09/25/20 10:28 89 18 174/86 93 L Intake and Output 09/25/20 09/26/20 09/26/20 22:59 06:59 14:59 Intake Total 360 540 200 Output Total 700 Balance -340 540 200 Intake: Oral 360 540 200 Output: Hemodialysis 700 Other: # Voids 1 0 # Bowel Movements 0 Weight 94.5 kg Results - Lab Results Most recent lab results Calcium 7.0 mg/dL (8.4-10.2) L 09/25/20 10:09 Phosphorus 4.5 mg/dL (2.5-4.5) 09/25/20 10:09 Magnesium 1.8 mg/dL (1.6-2.3) 09/25/20 10:09 09/25/20 10:09 09/25/20 10:09 Assessment and Plan Plan: Assessment: 1. End-stage renal disease maintained on hemodialysis on Friday schedule viapper extremity AV fistula. 2. Covid-19 infection maintained on steroids and zinc. 3. Diabetes mellitus. 4. Hypertension with chronic kidney disease. Stable. 5. Chronic kidney disease mineral bone disease maintained on PhosLo. Plan: Hemodialysis tomorrow. Thank you for the consultation. I will continue to follow the patient with you during his hospital stay.
--- NOTE | 2020-09-26 11:25 | P.PN ---
Subjective Progress Note Date: 09/26/20 HISTORY OF PRESENT ILLNESS Debra is a 59-year-old male patient of Dr. Robison with past medical history significant for COPD, chronic diastolic CHF, end-stage renal disease on h emodialysis, type 2 diabetes mellitus, hypertension, hyperlipidemia, chronic pain who was recently hospitalized from September 04 through 09/07/2020 for acute hypoxic rest or a failure related to right lower lobe pneumonia, acute exacerbation of CHF and COPD. He was COVID negative during that admission when tested on 09/04/2020. Patient presented to the hospital on 09/25/2020 with complaints of generalized weakness, cough, one episode of hemoptysis, low-grade fever with a temp of 100.5F. He states his been compliant with hemodialysis and she is usually dialyzed on Friday schedule. 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 Patient's chest x-ray shows a new lingular and left lower lobe pneumonic infiltrate, possibly developing central right hilar infiltrate. COVID 19 PCR was positive. Is admitting to episode of nausea and vomiting yesterday. He is currently on room air, with pulse ox of 93-94%, blood pressure was elevated on admission improved with hemodialysis, low-grade fever this afternoon. Patient remains on room air, white blood cell count is 5.5, hemoglobin is 9.3, platelet count was 48, sodium is 134, potassium is 5.7, chloride is 95, B1 is 71 creatinine 7.58, troponin was 0.051, proBNP was 8080, oral improved since last admission, CRP is 141.5, and LDH is 572. 2/2: Patient has been seen by nephrology with plan for hemodialysis tomorrow and maintain Friday schedule. Patient is also been seen by pulmonary medicine and Decadron, bronchodilators been added. Patient is not candidate for Remdesivir due to end-stage renal disease and low GFR. She has been afebrile, heart rate 62, blood pressure 125/60, pulse ox 98% on room air. D-dimer 1.5. Blood sugars running between 298 and 337. Levemir will be added 1 0 units daily. REVIEW OF SYSTEMS Constitutional: Denies chills, Denies fever, denies headache Eyes: denies blurred vision, denies pain Ears, nose, mouth and throat: Denies headache, Denies sore throat Cardiovascular: Denies chest pain, Respiratory: Reports dyspnea, Reports respiratory infections, Denies cough Gastrointestinal: Denies abdominal pain, Denies diarrhea, Denies nausea, Denies vomiting Musculoskeletal: Denies myalgias Integumentary: Denies pruritus, Denies rash Neurological: Denies numbness, Denies weakness Psychiatric: Denies anxiety, Denies depression Endocrine: Positive fatigue, Denies weight change PHYSICAL EXAMINATION GENERAL EXAM: Alert, very pleasant, 59-year- male, comfortable in no apparent distress. HEAD: Normocephalic/atraumatic. EYES: Normal reaction of pupils, equal size. Conjunctiva pink, sclera white. NOSE: Clear with pink turbinates. THROAT: No erythema or exudates. NECK: No masses, no JVD, no thyroid enlargement, no adenopathy. CHEST: No chest wall deformity. Symmetrical expansion. LUNGS: Equal air entry with no crackles, wheeze, rhonchi or dullness. Diminished at bases. CVS: Regular rate and rhythm, normal S1 and S2, no gallops, no murmurs, no rubs. Right AV fistula ABDOMEN: Soft, nontender. No hepatosplenomegaly, normal bowel sounds, no guarding or rigidity. EXTREMITIES: No clubbing, no edema, no cyanosis, 2+ pulses and upper and lower extremities. MUSCULOSKELETAL: Muscle strength and tone normal. SPINE: No scoliosis or deformity SKIN: No rashes, no wounds CENTRAL NERVOUS SYSTEM: Alert and oriented x3. No focal deficits, tone is normal in all 4 extremities. PSYCHIATRIC: Appropriate affect. Intact judgment and insight. ASSESSMENT AND PLAN #1. Acute hypoxic respiratory failure related to COVID 19 pneumonia, rule out possibility of bacterial pneumonia, on Decadron 6 mg along with bronchodilators. He shouldn't does not qualify for Remdesivir. Continue vitamin supplements. Pulmonary consult appreciated. #2. Recent hospitalization for right lower lobe pneumonia, fluid overload, and COPD exacerbation from September 04 through 09/08/2020, patient was COVID 19 negative during that admission #3. Hemoptysis, single episode, possibly related to thrombocytopenia, pneumonia #4. History of coronary artery disease with catheterization and previous stenting #5. History of COPD on albuterol #6. Obstructive sleep apnea, and most recently patient CPAP machine was broken #7. History of CVA on aspirin and statin #8. Diabetes mellitus Accu-Cheks before meals and at bedtime with NovoLog 10 units with meals and sliding scale #9. GERD/reflux on Protonix #10. Hyperlipidemia on Lipitor 80 mg at at bedtime #11. Essential hypertension on Norvasc 5 mg daily along with Coreg 12.5 mg twice a day Bumex 4 mg by mouth twice a day, Imdur 30 by mouth daily #12. End-stage renal disease on Friday hemodialysis, consult with nephrology. #13. Chronic thrombocytopenia, we'll continue to monitor labs #14. Severe depression, on Paxil 20 mg daily #15. Past history of chronic alcoholism with history of chronic pancreatitis #16. GI prophylaxis on Protonix #17. DVT prophylaxis, platelets 48 encourage early mobilization. DISCHARGE PLAN Home. Impression and plan of care have been directed as dictated by the signing physician. Iram Love nurse practitioner acting as scribe for signing isak garcia. Objective - Vital Signs Vital signs: Vital Signs Temp 98.6 F 09/26/20 03:49 Pulse 62 09/26/20 03:49 Resp 18 09/26/20 03:49 BP 125/60 09/26/20 03:49 Pulse Ox 98 09/26/20 03:49 Intake & Output 09/25/20 09/26/20 09/26/20 18:59 06:59 18:59 Intake Total 540 540 Output Total 700 Balance -160 540 Weight 90.718 kg 94.5 kg Intake: Oral 540 540 Output: Hemodialysis 700 Other: Voiding Method Toilet # Voids 1 - Labs CBC & Chem 7: 09/25/20 10:09 09/25/20 10:09 Labs: Abnormal Lab Results - Last 24 Hours (Table) 09/25/20 09/25/20 09/25/20 Range/Units 10:09 10:09 10:09 RBC 2.85 L (4.30-5.90) m/uL Hgb 9.3 L D (13.0-17.5) gm/dL Hct 27.4 L (39.0-53.0) % RDW 15.6 H (11.5-15.5) % Plt Count 48 L (150-450) k/uL Lymphocytes # 0.6 L (1.0-4.8) k/uL D-Dimer (<0.60) mg/L FEU Sodium 134 L (137-145) mmol/L Potassium 5.7 H (3.5-5.1) mmol/L Chloride 95 L (98-107) mmol/L BUN 71 H (9-20) mg/dL Creatinine 7.58 H* (0.66-1.25) mg/dL Glucose 167 H (74-99) mg/dL POC Glucose (mg/dL) (75-99) mg/dL Hemoglobin A1c (4.0-6.0) % Calcium 7.0 L (8.4-10.2) mg/dL Total Bilirubin 2.0 H (0.2-1.3) mg/dL Troponin I 0.051 H* (0.000-0.034) ng/mL C-Reactive Protein (<10.0) mg/L Procalcitonin (0.02-0.09) ng/mL Coronavirus (PCR) (Not Detectd) 09/25/20 09/25/20 09/25/20 Range/Units 10:09 10:09 10:23 RBC (4.30-5.90) m/uL Hgb (13.0-17.5) gm/dL Hct (39.0-53.0) % RDW (11.5-15.5) % Plt Count (150-450) k/uL Lymphocytes # (1.0-4.8) k/uL D-Dimer (<0.60) mg/L FEU Sodium (137-145) mmol/L Potassium (3.5-5.1) mmol/L Chloride (98-107) mmol/L BUN (9-20) mg/dL Creatinine (0.66-1.25) mg/dL Glucose (74-99) mg/dL POC Glucose (mg/dL) (75-99) mg/dL Hemoglobin A1c 6.1 H (4.0-6.0) % Calcium (8.4-10.2) mg/dL Total Bilirubin (0.2-1.3) mg/dL Troponin I (0.000-0.034) ng/mL C-Reactive Protein 141.5 H (<10.0) mg/L Procalcitonin (0.02-0.09) ng/mL Coronavirus (PCR) Detected A (Not Detectd) 09/25/20 09/25/20 09/25/20 Range/Units 16:34 18:18 18:18 RBC (4.30-5.90) m/uL Hgb (13.0-17.5) gm/dL Hct (39.0-53.0) % RDW (11.5-15.5) % Plt Count (150-450) k/uL Lymphocytes # (1.0-4.8) k/uL D-Dimer 1.48 H (<0.60) mg/L FEU Sodium (137-145) mmol/L Potassium (3.5-5.1) mmol/L Chloride (98-107) mmol/L BUN (9-20) mg/dL Creatinine (0.66-1.25) mg/dL Glucose (74-99) mg/dL POC Glucose (mg/dL) 181 H (75-99) mg/dL Hemoglobin A1c (4.0-6.0) % Calcium (8.4-10.2) mg/dL Total Bilirubin (0.2-1.3) mg/dL Troponin I (0.000-0.034) ng/mL C-Reactive Protein (<10.0) mg/L Procalcitonin 0.68 H (0.02-0.09) ng/mL Coronavirus (PCR) (Not Detectd) 09/25/20 09/26/20 09/26/20 Range/Units 20:41 06:08 07:11 RBC (4.30-5.90) m/uL Hgb (13.0-17.5) gm/dL Hct (39.0-53.0) % RDW (11.5-15.5) % Plt Count (150-450) k/uL Lymphocytes # (1.0-4.8) k/uL D-Dimer (<0.60) mg/L FEU Sodium (137-145) mmol/L Potassium (3.5-5.1) mmol/L Chloride (98-107) mmol/L BUN (9-20) mg/dL Creatinine (0.66-1.25) mg/dL Glucose (74-99) mg/dL POC Glucose (mg/dL) 267 H 337 H 298 H (75-99) mg/dL Hemoglobin A1c (4.0-6.0) % Calcium (8.4-10.2) mg/dL Total Bilirubin (0.2-1.3) mg/dL Troponin I (0.000-0.034) ng/mL C-Reactive Protein (<10.0) mg/L Procalcitonin (0.02-0.09) ng/mL Coronavirus (PCR) (Not Detectd)
[2020-09-26 12:07] LABS: Glucose,Whole Blood 381 mg/dL (75-99)
[2020-09-26] MEDS: ALBUTEROL HFA INHALER INHALATION PRN ×2 (12:33→20:53)
[2020-09-26] MEDS: INSULIN DETEMIR (LEVEMIR) 100 UNIT/ML SYR SQ SCH (12:56)
--- NOTE | 2020-09-26 15:31 | P.PN ---
Subjective Progress Note Date: 09/26/20 Principal diagnosis: Shortness of breath,COVID 19 pneumonitis This is a 59-year-old white male with past medical history of COPD, chronic diastolic CHF, end-stage renal disease on hemodialysis, type 2 diabetes mellitus, hypertension, hyperlipidemia, chronic pain, who was recently hospitalized from September 04 through 09/07/2020 for acute hypoxic rest or a failure related to right lower lobe pneumonia, acute exacerbation of CHF and COPD. He was COVID negative during that admission when tested on 09/04/2020. Patient presented to the hospital on 09/25/2020 with complaints of generalized weakness, cough, one episode of hemoptysis, low-grade fever with a temp of 100.5F. He states his been compliant with hemodialysis and she is usually dialyzed on Friday schedule. 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 Patient's chest x-ray shows a new lingular and left lower lobe pneumonic infiltrate, possibly developing central right hilar infiltrate. COVID 19 PCR was positive. Is admitting to episode of nausea and vomiting yesterday. He is currently on room air, with pulse ox of 93-94%, blood pressure was elevated on admission improved with hemodialysis, low-grade fever this afternoon. Patient remains on room air, white blood cell count is 5.5, hemoglobin is 9.3, platelet count was 48, sodium is 134, potassium is 5.7, chloride is 95, B1 is 71 creatinine 7.58, troponin was 0.051, proBNP was 8080, oral improved since last admission, CRP is 141.5, and LDH is 572. On 09/26/2020 patient seen in follow-up on selective care unit. He had hemodialysis yesterday removal of 700 mL of fluid. He is currently on room air, his been afebrile, blood pressure has been stable, he is breathing better, feeling better. Has productive cough, hemoptysis has significantly improved, he is bringing up some sputum with only jasso colored sputum. His d-dimer came back at 1.50, his pro-calcitonin level came back elevated at 0.68 suggesting possi bility of Bacterial infection. We'll add Zosyn for empiric antibiotic coverage, we'll send sputum for culture. Objective - Vital Signs Vital signs: Vital Signs Temp 96.8 F L 09/26/20 08:00 Pulse 72 09/26/20 12:00 Resp 18 09/26/20 12:00 BP 145/72 09/26/20 12:00 Pulse Ox 95 09/26/20 12:00 Intake & Output 09/25/20 09/26/20 09/26/20 18:59 06:59 18:59 Intake Total 540 540 200 Output Total 700 Balance -160 540 200 Weight 90.718 kg 94.5 kg Intake: Oral 540 540 200 Output: Hemodialysis 700 Other: Voiding Method Toilet # Voids 1 0 # Bowel Movements 0 - Exam GENERAL EXAM: Alert, very pleasant, 59-year-old white male, on room air, with pulse ox of 95% comfortable in no apparent distress. HEAD: Normocephalic/atraumatic. EYES: Normal reaction of pupils, equal size. Conjunctiva pink, sclera white. NOSE: Clear with pink turbinates. THROAT: No erythema or exudates. NECK: No masses, no JVD, no thyroid enlargement, no adenopathy. CHEST: No chest wall deformity. Symmetrical expansion. LUNGS: Equal air entry with diminished breath sounds, and scattered rhonchi CVS: Regular rate and rhythm, normal S1 and S2, no gallops, no murmurs, no rubs ABDOMEN: Soft, nontender. No hepatosplenomegaly, normal bowel sounds, no guarding or rigidity. EXTREMITIES: No clubbing, no edema, no cyanosis, 2+ pulses and upper and lower extremities. MUSCULOSKELETAL: Muscle strength and tone normal. SPINE: No scoliosis or deformity SKIN: No rashes CENTRAL NERVOUS SYSTEM: Alert and oriented -3. No focal deficits, tone is normal in all 4 extremities. PSYCHIATRIC: Alert and oriented -3. Appropriate affect. Intact judgment and insight. - Labs CBC & Chem 7: 09/25/20 10:09 09/25/20 10:09 Labs: Abnormal Lab Results - Last 24 Hours (Table) 09/25/20 09/25/20 09/25/20 Range/Units 10:09 16:34 18:18 D-Dimer 1.48 H (<0.60) mg/L FEU POC Glucose (mg/dL) 181 H (75-99) mg/dL Hemoglobin A1c 6.1 H (4.0-6.0) % Procalcitonin (0.02-0.09) ng/mL 09/25/20 09/25/20 09/26/20 Range/Units 18:18 20:41 06:08 D-Dimer (<0.60) mg/L FEU POC Glucose (mg/dL) 267 H 337 H (75-99) mg/dL Hemoglobin A1c (4.0-6.0) % Procalcitonin 0.68 H (0.02-0.09) ng/mL 09/26/20 09/26/20 09/26/20 Range/Units 07:11 07:52 12:02 D-Dimer 1.50 H (<0.60) mg/L FEU POC Glucose (mg/dL) 298 H 381 H (75-99) mg/dL Hemoglobin A1c (4.0-6.0) % Procalcitonin (0.02-0.09) ng/mL Microbiology - Last 24 Hours (Table) 09/25/20 10:21 Blood Culture - Preliminary Blood No Growth after 24 hours 09/25/20 10:13 Blood Culture - Preliminary Blood No Growth after 24 hours Assessment and Plan Plan: Assessment: #1. Acute hypoxic respiratory failure related to COVID 19 pneumonia, rule out possibility of bacterial pneumonia. Pro-Calcitonin level came back elevated at 0.68, Aygestin possibility of a picture of pneumonia, patient will be empirically covered with Zosyn #2. Recent hospitalization for right lower lobe pneumonia, fluid overload, and COPD exacerbation from September 04 through 09/08/2020, patient was COVID 19 negative during that admission #3. Hemoptysis, single episode, possibly related to pneumonia #4. History of coronary artery disease with catheterization at outside facility with no intervention #5. History of COPD #6. Obstructive sleep apnea, and most recently patient CPAP machine was broken #7. History of CVA #8. Diabetes mellitus #9. GERD/reflux #10. Hyperlipidemia #11. Essential hypertension #12. End-stage renal disease on Friday hemodialysis #13. Chronic thrombocytopenia #14. Severe depression #15. Past history of chronic alcoholism with history of chronic pancreatitis #16. Prior history of tracheostomy for prolonged mechanical ventilatory support related to ARDS #17. Coronary artery disease with previous stenting Plan: We will start the patient on Zosyn for empiric antibiotic coverage, send sputum for culture, continue oral Decadron, continue vitamins. D-dimer level has been noted, nonspecific, however platelet count is low, we will apply SCDs to lower extremities. No swelling pain or redness in bilateral lower extremities. Follow-up chest x-ray tomorrow. We'll continue to follow I performed a history & physical examination of the patient and discussed their management with my nurse practitioner, Yumiko Matta. I reviewed the nurse practitioner's note and agree with the documented findings and plan of care. Albertina ng sounds are positive for diminished breath sounds. The findings and the impression was discussed with the patient. I attest to the documentation by the nurse practitioner. Time with Patient: Less than 30
[2020-09-26 17:11] LABS: Glucose,Whole Blood 385 mg/dL (75-99)
[2020-09-26] MEDS: PANTOPRAZOLE 40 MG TABLET PO SCH (17:39)
[2020-09-26 20:39] LABS: Glucose,Whole Blood 443 mg/dL (75-99)
[2020-09-26] MEDS ORDERED: INSULIN ASPART (NovoLOG) 100 UNIT/ML VIAL SQ ONE (20:51)
[2020-09-26] MEDS: amLODIPine 5 MG TAB PO SCH (21:31)
[2020-09-26] MEDS: ATORVASTATIN 80 MG TAB PO SCH (21:32)
[2020-09-26] MEDS: ASPIRIN 81 MG PO SCH (21:32)
[2020-09-26] MEDS: PARoxetine 20 MG TAB PO SCH (21:32)
[2020-09-26] MEDS: PIPERACILLIN-TAZOBACTAM 3.375 GM in SODIUM CHLORIDE 0.9% 100 ML IVPB SCH (21:33)
[2020-09-26] MEDS: ALPRAZolam 0.25 MG TAB PO PRN (21:33)
[2020-09-26] MEDS: ARIPiprazole 5 MG TAB PO SCH (21:35)
[2020-09-26] MEDS: FOLIC ACID-VIT B COMPLEX-VIT C 1 CAP PO SCH (21:35)
[2020-09-27] MEDS: HYDROcodone/APAP 10-325MG 1 EACH TAB PO SCH ×6 (03:26→22:30)
[2020-09-27] MEDS: MORPHINE SULFATE ER 30 MG TABLET PO SCH ×2 (03:30→15:09)
[2020-09-27 06:58] LABS: Glucose,Whole Blood 474 mg/dL (75-99)
[2020-09-27] MEDS: INSULIN ASPART (NovoLOG) 100 UNIT/ML VIAL SQ SCH ×7 (07:06→20:45)
[2020-09-27] MEDS: INSULIN DETEMIR (LEVEMIR) 100 UNIT/ML SYR SQ SCH (07:07)
[2020-09-27] MEDS ORDERED: INSULIN ASPART (NovoLOG) 100 UNIT/ML VIAL SQ ONE ×2 (07:15→09:00)
[2020-09-27 08:22] LABS: Basophils % (A) 0 %; Eosinophils % (A) 0 %; HCT 22.7 % (39.0-53.0); Hypochromasia Slight; Lymphocytes # (A) 0.2 k/uL (1.0-4.8); Lymphocytes % (A) 5 %; MCHC 32.5 g/dL (31.0-37.0); MCV 98.6 fL (80.0-100.0); Mean Platelet Volume 11.6; Monocytes # (A) 0.1 k/uL (0-1.0); Monocytes % (A) 3 %; Neutrophils # (A) 3.5 k/uL (1.3-7.7); Neutrophils % (A) 91 %; Poikilocytosis Slight; RBC 2.31 m/uL (4.30-5.90); RDW 14.9 % (11.5-15.5); WBC 3.8 k/uL (3.8-10.6)
[2020-09-27 08:27] LABS: Calcium 6.7 mg/dL (8.4-10.2)
[2020-09-27 08:31] LABS: HGB 7.4 gm/dL (13.0-17.5); Platelet Count 32 k/uL (150-450)
[2020-09-27] MEDS ORDERED: MD COMMUNICATION TO PHARMACY 1 EACH MISC PO PRN (08:34)
[2020-09-27 08:44] LABS: Potassium 6.2 mmol/L (3.5-5.1)
[2020-09-27] MEDS ORDERED: INSULIN DETEMIR (LEVEMIR) 100 UNIT/ML SYR SQ SCH (08:45)
[2020-09-27] MEDS ORDERED: INSULIN DETEMIR (LEVEMIR) 100 UNIT/ML SYR SQ ONE (08:45)
--- NOTE | 2020-09-27 08:59 | P.PN ---
Subjective Patient is seen in follow-up for end-stage renal disease. He is maintained on hemodialysis on Friday schedule. Potassium level elevated this morning. He scheduled for dialysis today. Patient states the cough is resolved. Hemodynamically stable. Vital signs are stable. General: The patient appeared well nourished and normally developed. HEENT: Head exam is unremarkable. Neck is without jugular venous distension. LUNGS: Breath sounds decreased. HEART: Rate and Rhythm are regular. ABDOMEN: Soft, nontender. EXTREMITITES: No edema. Objective - Vital Signs Vital signs: Vital Signs Temp 97.9 F 09/27/20 00:00 Pulse 66 09/27/20 04:00 Resp 18 09/27/20 04:00 BP 140/63 09/27/20 04:00 Pulse Ox 95 09/27/20 04:00 Intake & Output 09/26/20 09/27/20 09/27/20 18:59 06:59 18:59 Intake Total 880 600 Balance 880 600 Weight 96 kg Intake: Oral 880 600 Other: # Voids 0 # Bowel Movements 0 - Labs CBC & Chem 7: 09/27/20 07:46 09/27/20 07:40 Labs: Abnormal Lab Results - Last 24 Hours (Table) 09/26/20 09/26/20 09/26/20 Range/Units 07:52 12:02 17:09 RBC (4.30-5.90) m/uL Hgb (13.0-17.5) gm/dL Hct (39.0-53.0) % Plt Count (150-450) k/uL Lymphocytes # (1.0-4.8) k/uL D-Dimer 1.50 H (<0.60) mg/L FEU Sodium (137-145) mmol/L Potassium (3.5-5.1) mmol/L Chloride (98-107) mmol/L BUN (9-20) mg/dL Creatinine (0.66-1.25) mg/dL Glucose (74-99) mg/dL POC Glucose (mg/dL) 381 H 385 H (75-99) mg/dL Calcium (8.4-10.2) mg/dL 09/26/20 09/27/20 09/27/20 Range/Units 20:37 06:56 07:40 RBC (4.30-5.90) m/uL Hgb (13.0-17.5) gm/dL Hct (39.0-53.0) % Plt Count (150-450) k/uL Lymphocytes # (1.0-4.8) k/uL D-Dimer (<0.60) mg/L FEU Sodium 128 L (137-145) mmol/L Potassium 6.2 H* (3.5-5.1) mmol/L Chloride 91 L (98-107) mmol/L BUN 85 H (9-20) mg/dL Creatinine 7.29 H* (0.66-1.25) mg/dL Glucose 479 H (74-99) mg/dL POC Glucose (mg/dL) 443 H 474 H (75-99) mg/dL Calcium 6.7 L (8.4-10.2) mg/dL 09/27/20 Range/Units 07:46 RBC 2.31 L (4.30-5.90) m/uL Hgb 7.4 L D (13.0-17.5) gm/dL Hct 22.7 L (39.0-53.0) % Plt Count 32 L (150-450) k/uL Lymphocytes # 0.2 L (1.0-4.8) k/uL D-Dimer (<0.60) mg/L FEU Sodium (137-145) mmol/L Potassium (3.5-5.1) mmol/L Chloride (98-107) mmol/L BUN (9-20) mg/dL Creatinine (0.66-1.25) mg/dL Glucose (74-99) mg/dL POC Glucose (mg/dL) (75-99) mg/dL Calcium (8.4-10.2) mg/dL Microbiology - Last 24 Hours (Table) 09/25/20 10:21 Blood Culture - Preliminary Blood No Growth after 24 hours 09/25/20 10:13 Blood Culture - Preliminary Blood No Growth after 24 hours Assessment and Plan Plan: Assessment: 1. End-stage renal disease maintained on hemodialysis on Friday schedule via AV fistula. 2. Covid-19 infection maintained on steroids and zinc. 3. Diabetes mellitus. 4. Hypertension with chronic kidney disease. Stable. 5. Chronic kidney disease mineral bone disease maintained on PhosLo. 6. Hyperkalemia secondary to chronic kidney disease as well as hyperglycemia. 7. Hyponatremia secondary to chronic kidney disease and hyperglycemia. 8. Anemia of chronic kidney disease. Rule out iron deficiency. ?GIB. Plan: Hemodialysis today - he will be starting dialysis in the next 10-15 minutes. Repeat potassium level 2 hours after dialysis completed. Low potassium diet. Tight blood sugar control. Check iron studies. Add Aranesp. Stool for occult blood pending.
[2020-09-27] MEDS ORDERED: DARBEPOETIN ALFA 40 MCG/0.4 ML SYRINGE SQ SCH (09:00)
[2020-09-27 09:10] LABS: Glucose,Whole Blood 550 mg/dL (75-99)
[2020-09-27] MEDS ORDERED: CALCIUM GLUCONATE 1 GM in SODIUM CHLORIDE 0.9% 100 ML IVPB ONE (09:15)
--- NOTE | 2020-09-27 09:20 | XR ---
EXAMINATION TYPE: XR chest 1V portable DATE OF EXAM: 09/27/2020 COMPARISON: Chest x-ray 09/25/2020 HISTORY: Follow-up pneumonia TECHNIQUE: Single frontal view of the chest is obtained. FINDINGS: There is some improvement in aeration as compared to prior exam. No pneumothorax or pleura l effusion. Postop change noted in the cervical spine. Cardiac mediastinal silhouette is stable. IMPRESSION: Improvement in aeration.
[2020-09-27 09:46] LABS: C Reactive Protein 60.4 mg/L (<10.0)
--- NOTE | 2020-09-27 11:23 | P.PN ---
Subjective Progress Note Date: 09/27/20 HISTORY OF PRESENT ILLNESS Debra is a 59-year-old male patient of Dr. Robison with past medical history significant for COPD, chronic diastolic CHF, end-stage renal disease on h emodialysis, type 2 diabetes mellitus, hypertension, hyperlipidemia, chronic pain who was recently hospitalized from September 04 through 09/07/2020 for acute hypoxic rest or a failure related to right lower lobe pneumonia, acute exacerbation of CHF and COPD. He was COVID negative during that admission when tested on 09/04/2020. Patient presented to the hospital on 09/25/2020 with complaints of generalized weakness, cough, one episode of hemoptysis, low-grade fever with a temp of 100.5F. He states his been compliant with hemodialysis and she is usually dialyzed on Friday schedule. 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 Patient's chest x-ray shows a new lingular and left lower lobe pneumonic infiltrate, possibly developing central right hilar infiltrate. COVID 19 PCR was positive. Is admitting to episode of nausea and vomiting yesterday. He is currently on room air, with pulse ox of 93-94%, blood pressure was elevated on admission improved with hemodialysis, low-grade fever this afternoon. Patient remains on room air, white blood cell count is 5.5, hemoglobin is 9.3, platelet count was 48, sodium is 134, potassium is 5.7, chloride is 95, B1 is 71 creatinine 7.58, troponin was 0.051, proBNP was 8080, oral improved since last admission, CRP is 141.5, and LDH is 572. 2/2: Patient has been seen by nephrology with plan for hemodialysis tomorrow and maintain Friday schedule. Patient is also been seen by pulmonary medicine and Decadron, bronchodilators been added. Patient is not candidate for Remdesivir due to end-stage renal disease and low GFR. She has been afebrile, heart rate 62, blood pressure 125/60, pulse ox 98% on room air. D-dimer 1.5. Blood sugars running between 298 and 337. Levemir will be added 1 0 units daily. 2/3: Patient's blood sugars have been extremely high in the 400s. He received 18 units of NovoLog this morning. We will plan to increase Lantus to 15 units, scheduled NovoLog to 12 units with meals. Dexamethasone decreased to 4 mg daily. Patient is been afebrile, heart rate 66, blood pressure 140/63, pulse ox 95-99% on room air. WBC 3.8, hemoglobin 7.4, platelet count is 32. Sodium 128, potassium 6.2, chloride 91, CO2 24, BUN 85 and creatinine 7.29. Repeat chest x- ray reveals improvement in aeration. Patient is scheduled for hemodialysis today. Nephrology is managing potassium, Aranesp added. We did ask for stool for occult blood. REVIEW OF SYSTEMS Constitutional: Denies chills, Denies fever, denies headache Eyes: denies blurred vision, denies pain Ears, nose, mouth and throat: Denies headache, Denies sore throat Cardiovascular: Denies chest pain, Respiratory: Reports dyspnea, Reports respiratory infections, Denies cough Gastrointestinal: Denies abdominal pain, Denies diarrhea, Denies nausea, Denies vomiting Musculoskeletal: Denies myalgias Integumentary: Denies pruritus, Denies rash Neurological: Denies numbness, Denies weakness Psychiatric: Denies anxiety, Denies depression Endocrine: Positive fatigue, Denies weight change PHYSICAL EXAMINATION GENERAL EXAM: Alert, very pleasant, 59-year- male, comfortable in no apparent distress. HEAD: Normocephalic/atraumatic. EYES: Normal reaction of pupils, equal size. Conjunctiva pink, sclera white. NOSE: Clear with pink turbinates. THROAT: No erythema or exudates. NECK: No masses, no JVD, no thyroid enlargement, no adenopathy. CHEST: No chest wall deformity. Symmetrical expansion. LUNGS: Equal air entry with no crackles, wheeze, rhonchi or dullness. Diminished at bases. CVS: Regular rate and rhythm, normal S1 and S2, no gallops, no murmurs, no rubs. Right AV fistula ABDOMEN: Soft, nontender. No hepatosplenomegaly, normal bowel sounds, no guar ding or rigidity. EXTREMITIES: No clubbing, no edema, no cyanosis, 2+ pulses and upper and lower extremities. MUSCULOSKELETAL: Muscle strength and tone normal. SPINE: No scoliosis or deformity SKIN: No rashes, no wounds CENTRAL NERVOUS SYSTEM: Alert and oriented x3. No focal deficits, tone is raven l in all 4 extremities. PSYCHIATRIC: Appropriate affect. Intact judgment and insight. ASSESSMENT AND PLAN #1. Acute hypoxic respiratory failure related to COVID 19 pneumonia, rule out possibility of bacterial pneumonia, on Decadron creese to 4 mg along with bronchodilators. He shouldn't does not qualify for Remdesivir. Continue vitamin supplements. Pulmonary consult appreciated. #2. Recent hospitalization for right lower lobe pneumonia, fluid overload, and COPD exacerbation from September 04 through 09/08/2020, patient was COVID 19 negative during that admission #3. Hemoptysis, single episode, possibly related to thrombocytopenia, pneumonia #4. History of coronary artery disease with catheterization and previous stenting #5. History of COPD on albuterol #6. Obstructive sleep apnea, and most recently patient CPAP machine was broken #7. History of CVA on aspirin and statin #8. Diabetes mellitus type II uncontrolled with hyperglycemia secondary to steroids. Lantus increased to 15 units daily, increase scheduled insulin to 12 units with meals, continue NovoLog scale before meals and at bedtime. #9. GERD/reflux on Protonix #10. Hyperlipidemia on Lipitor 80 mg at at bedtime #11. Essential hypertension on Norvasc 5 mg daily along with Coreg 12.5 mg twice a day Bumex 4 mg by mouth twice a day, Imdur 30 by mouth daily #12. End-stage renal disease on Friday hemodialysis, consult with nephrology. #13. Chronic thrombocytopenia, we'll continue to monitor labs #14. Severe depression, on Paxil 20 mg daily #15. Past history of chronic alcoholism with history of chronic pancreatitis #16. GI prophylaxis on Protonix #17. DVT prophylaxis, platelets 48 encourage early mobilization. 18. Chronic anemia of chronic kidney disease. Nephrology has added Aranesp. Stool for occult blood to be obtained. Hemoptysis seems to have resolved. Continue to monitor. DISCHARGE PLAN Home. Impression and plan of care have been directed as dictated by the signing physician. Iram Love nurse practitioner acting as scribe for signing physician. Objective - Vital Signs Vital signs: Vital Signs Temp 97.9 F 09/27/20 00:00 Pulse 66 09/27/20 04:00 Resp 18 09/27/20 04:00 BP 140/63 09/27/20 04:00 Pulse Ox 95 09/27/20 04:00 Intake & Output 09/26/20 09/27/20 09/27/20 18:59 06:59 18:59 Intake Total 880 600 Balance 880 600 Weight 96 kg Intake: Oral 880 600 Other: # Voids 0 # Bowel Movements 0 - Labs CBC & Chem 7: 09/27/20 07:46 09/27/20 07:40 Labs: Abnormal Lab Results - Last 24 Hours (Table) 09/26/20 09/26/20 09/26/20 Range/Units 07:52 12:02 17:09 D-Dimer 1.50 H (<0.60) mg/L FEU POC Glucose (mg/dL) 381 H 385 H (75-99) mg/dL 09/26/20 09/27/20 Range/Units 20:37 06:56 D-Dimer (<0.60) mg/L FEU POC Glucose (mg/dL) 443 H 474 H (75-99) mg/dL Microbiology - Last 24 Hours (Table) 09/25/20 10:21 Blood Culture - Preliminary Blood No Growth after 24 hours 09/25/20 10:13 Blood Culture - Preliminary Blood No Growth after 24 hours
[2020-09-27 11:40] LABS: Glucose,Whole Blood 322 mg/dL (75-99)
[2020-09-27] MEDS: dexAMETHasone 4 MG TAB PO SCH (13:26)
[2020-09-27] MEDS: ASCORBIC ACID 500 MG TAB PO SCH (13:27)
[2020-09-27] MEDS: CHOLECALCIFEROL 25 MCG (1000 IU) TABLET PO SCH (13:27)
[2020-09-27] MEDS: BUMETANIDE 1 MG TAB PO SCH ×2 (13:27→20:45)
[2020-09-27] MEDS: ZINC SULFATE 220 MG CAP PO SCH (13:27)
[2020-09-27] MEDS: ISOSORBIDE MONONITRATE ER 30 MG TAB.ER.24H PO SCH (13:28)
--- NOTE | 2020-09-27 13:56 | P.PN ---
Subjective Progress Note Date: 09/27/20 Principal diagnosis: CoVID 19 pneumonitis This is a 59-year-old white male with past medical history of COPD, chronic diastolic CHF, end-stage renal disease on hemodialysis, type 2 diabetes mellitus, hypertension, hyperlipidemia, chronic pain, who was recently hospitalized from September 04 through 09/07/2020 for acute hypoxic rest or a failure related to right lower lobe pneumonia, acute exacerbation of CHF and COPD. He was COVID negative during that admission when tested on 09/04/2020. Patient presented to the hospital on 09/25/2020 with complaints of generalized weakness, cough, one episode of hemoptysis, low-grade fever with a temp of 100.5F. He states his been compliant with hemodialysis and she is usually dialyzed on Friday schedule. 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 Patient's chest x-ray shows a new lingular and left lower lobe pneumonic infiltrate, possibly developing central right hilar infiltrate. COVID 19 PCR was positive. Is admitting to episode of nausea and vomiting yesterday. He is currently on room air, with pulse ox of 93-94%, blood pressure was elevated on admission improved with hemodialysis, low-grade fever this afternoon. Patient remains on room air, white blood cell count is 5.5, hemoglobin is 9.3, platelet count was 48, sodium is 134, potassium is 5.7, chloride is 95, B1 is 71 creatinine 7.58, troponin was 0.051, proBNP was 8080, oral improved since last admission, CRP is 141.5, and LDH is 572. On 09/26/2020 patient seen in follow-up on selective care unit. He had hemodialysis yesterday removal of 700 mL of fluid. He is currently on room air, his been afebrile, blood pressure has been stable, he is breathing better, feeling better. Has productive cough, hemoptysis has significantly improved, he is bringing up some sputum with only jasso colored sputum. His d-dimer came back at 1.50, his pro-calcitonin level came back elevated at 0.68 suggesting possibility of Bacterial infection. We'll add Zosyn for empiric antibiotic coverage, we'll send sputum for culture. The patient is seen today 09/27/2020 in follow-up on the selective care unit. He is currently sitting up in the bedside. Awake and alert in no acute distress. He is on room air. Chest x-ray showing improved aeration. Receiving hemodialysis. He has no IV fluids. He is currently on Zosyn. White count 3.8. Hemoglobin 7.4. Sodium 128. Potassium 6.2. Creatinine 7.29. Currently on Zosyn. He remains on vitamin supplements and dexamethasone. Blood cultures reveal no growth. Objective - Vital Signs Vital signs: Vital Signs Temp 97.8 F 09/27/20 09:21 Pulse 63 09/27/20 12:00 Resp 18 09/27/20 12:00 BP 175/58 09/27/20 12:00 Pulse Ox 97 09/27/20 09:21 Intake & Output 09/26/20 09/27/20 09/27/20 18:59 06:59 18:59 Intake Total 880 600 240 Balance 880 600 240 Weight 96 kg Intake: Oral 880 600 240 Other: # Voids 0 # Bowel Movements 0 - Exam GENERAL EXAM: Alert, very pleasant, 59-year-old male patient, on room air, with pulse ox of 97% comfortable in no apparent distress. HEAD: Normocephalic/atraumatic. EYES: Normal reaction of pupils, equal size. Conjunctiva pink, sclera white. NOSE: Clear with pink turbinates. THROAT: No erythema or exudates. NECK: No masses, no JVD, no thyroid enlargement, no adenopathy. CHEST: No chest wall deformity. Symmetrical expansion. LUNGS: Equal air entry with basilar crackles CVS: Regular rate and rhythm, normal S1 and S2, no gallops, no murmurs, no rubs ABDOMEN: Soft, nontender. No hepatosplenomegaly, normal bowel sounds, no guarding or rigidity. EXTREMITIES: No clubbing, no edema, no cyanosis, 2+ pulses and upper and lower extremities. MUSCULOSKELETAL: Muscle strength and tone normal. SPINE: No scoliosis or deformity SKIN: No rashes CENTRAL NERVOUS SYSTEM: No focal deficits, tone is normal in all 4 extremities. PSYCHIATRIC: Alert and oriented -3. Appropriate affect. Intact judgment and insight. - Labs CBC & Chem 7: 09/27/20 07:46 09/27/20 07:40 Labs: Abnormal Lab Results - Last 24 Hours (Table) 09/26/20 09/26/20 09/27/20 Range/Units 17:09 20:37 06:56 RBC (4.30-5.90) m/uL Hgb (13.0-17.5) gm/dL Hct (39.0-53.0) % Plt Count (150-450) k/uL Lymphocytes # (1.0-4.8) k/uL Sodium (137-145) mmol/L Potassium (3.5-5.1) mmol/L Chloride (98-107) mmol/L BUN (9-20) mg/dL Creatinine (0.66-1.25) mg/dL Glucose (74-99) mg/dL POC Glucose (mg/dL) 385 H 443 H 474 H (75-99) mg/dL Calcium (8.4-10.2) mg/dL C-Reactive Protein (<10.0) mg/L 09/27/20 09/27/20 09/27/20 Range/Units 07:40 07:46 09:08 RBC 2.31 L (4.30-5.90) m/uL Hgb 7.4 L D (13.0-17.5) gm/dL Hct 22.7 L (39.0-53.0) % Plt Count 32 L (150-450) k/uL Lymphocytes # 0.2 L (1.0-4.8) k/uL Sodium 128 L (137-145) mmol/L Potassium 6.2 H* (3.5-5.1) mmol/L Chloride 91 L (98-107) mmol/L BUN 85 H (9-20) mg/dL Creatinine 7.29 H* (0.66-1.25) mg/dL Glucose 479 H (74-99) mg/dL POC Glucose (mg/dL) 550 H (75-99) mg/dL Calcium 6.7 L (8.4-10.2) mg/dL C-Reactive Protein 60.4 H (<10.0) mg/L 09/27/20 Range/Units 11:24 RBC (4.30-5.90) m/uL Hgb (13.0-17.5) gm/dL Hct (39.0-53.0) % Plt Count (150-450) k/uL Lymphocytes # (1.0-4.8) k/uL Sodium (137-145) mmol/L Potassium (3.5-5.1) mmol/L Chloride (98-107) mmol/L BUN (9-20) mg/dL Creatinine (0.66-1.25) mg/dL Glucose (74-99) mg/dL POC Glucose (mg/dL) 322 H (75-99) mg/dL Calcium (8.4-10.2) mg/dL C-Reactive Protein (<10.0) mg/L Microbiology - Last 24 Hours (Table) 09/25/20 10:21 Blood Culture - Preliminary Blood No Growth after 48 hours 09/25/20 10:13 Blood Culture - Preliminary Blood No Growth after 48 hours Assessment and Plan Assessment: 1. Acute hypoxic respiratory failure related to COVID 19 pneumonia, rule out possibility of bacterial pneumonia. Pro-Calcitonin level came back elevated at 0.68, suggesting possibility of a picture of pneumonia, patient will be empirically covered with Zosyn 2. Recent hospitalization for right lower lobe pneumonia, fluid overload, and COPD exacerbation from September 04 through 09/08/2020, patient was COVID 19 negative during that admission 3. Hemoptysis, single episode, possibly related to pneumonia 4. History of coronary artery disease with catheterization at outside facility with no intervention 5. History of COPD 6. Obstructive sleep apnea, and most recently patient CPAP machine was broken 7. History of CVA 8. Diabetes mellitus 9. GERD/reflux 10. Hyperlipidemia 11. Essential hypertension 12. End-stage renal disease on Friday hemodialysis 13. Chronic thrombocytopenia 14. Severe depression 15. Past history of chronic alcoholism with history of chronic pancreatitis 16. Prior history of tracheostomy for prolonged mechanical ventilatory support related to ARDS 17. Coronary artery disease with previous stenting Plan: The patient was seen and evaluated by Dr. Otoole Currently stable from the pulmonary standpoint Continue the current treatment plan We'll continue to follow I, the cosigning physician, performed a history & physical examination of the patient. Lungs sounds with basilar crackles. Maintaining good O2 saturations in the 90s on room air. I discussed the assessment and plan of care with my nurse practitioner, Keila Paredes. I attest to the above note as dictated by her.
[2020-09-27] MEDS: carvediloL 12.5 MG TAB PO SCH ×2 (14:56→16:52)
[2020-09-27] MEDS: PANTOPRAZOLE 40 MG TABLET PO SCH (15:09)
[2020-09-27] MEDS: PIPERACILLIN-TAZOBACTAM 3.375 GM in SODIUM CHLORIDE 0.9% 100 ML IVPB SCH ×2 (15:10→20:37)
[2020-09-27] MEDS: dexAMETHasone 2 MG TAB PO SCH (16:54)
[2020-09-27 17:12] LABS: Glucose,Whole Blood 208 mg/dL (75-99)
[2020-09-27] MEDS: ALBUTEROL HFA INHALER INHALATION PRN (19:16)
[2020-09-27 20:21] LABS: Glucose,Whole Blood 246 mg/dL (75-99)
[2020-09-27] MEDS: ARIPiprazole 5 MG TAB PO SCH (20:44)
[2020-09-27] MEDS: FOLIC ACID-VIT B COMPLEX-VIT C 1 CAP PO SCH (20:44)
[2020-09-27] MEDS: ATORVASTATIN 80 MG TAB PO SCH (20:45)
[2020-09-27] MEDS: PARoxetine 20 MG TAB PO SCH (20:45)
[2020-09-27] MEDS: amLODIPine 5 MG TAB PO SCH (20:45)
[2020-09-27] MEDS: ASPIRIN 81 MG PO SCH (20:45)
[2020-09-27] MEDS: ALPRAZolam 0.25 MG TAB PO PRN (22:35)
[2020-09-28 00:34] LABS: Ferritin 1877.8 ng/mL (22.0-322.0)
[2020-09-28] MEDS: MORPHINE SULFATE ER 30 MG TABLET PO SCH ×2 (02:21→14:17)
[2020-09-28] MEDS: HYDROcodone/APAP 10-325MG 1 EACH TAB PO SCH ×6 (02:21→21:23)
[2020-09-28 07:30] LABS: Glucose,Whole Blood 287 mg/dL (75-99)
[2020-09-28] MEDS: INSULIN DETEMIR (LEVEMIR) 100 UNIT/ML SYR SQ SCH (08:03)
[2020-09-28] MEDS: INSULIN ASPART (NovoLOG) 100 UNIT/ML VIAL SQ SCH ×7 (08:04→21:22)
[2020-09-28] MEDS: ISOSORBIDE MONONITRATE ER 30 MG TAB.ER.24H PO SCH (08:05)
[2020-09-28] MEDS: dexAMETHasone 4 MG TAB PO SCH (08:05)
[2020-09-28] MEDS: BUMETANIDE 1 MG TAB PO SCH ×2 (08:06→21:23)
[2020-09-28] MEDS: ZINC SULFATE 220 MG CAP PO SCH (08:06)
[2020-09-28] MEDS: ASCORBIC ACID 500 MG TAB PO SCH (08:06)
[2020-09-28] MEDS: carvediloL 12.5 MG TAB PO SCH ×2 (08:06→21:23)
[2020-09-28] MEDS: CHOLECALCIFEROL 25 MCG (1000 IU) TABLET PO SCH (08:07)
[2020-09-28] MEDS: PIPERACILLIN-TAZOBACTAM 3.375 GM in SODIUM CHLORIDE 0.9% 100 ML IVPB SCH ×2 (08:07→21:22)
[2020-09-28] MEDS: ALBUTEROL HFA INHALER INHALATION PRN ×3 (08:11→20:57)
[2020-09-28 08:52] LABS: HCT 24.2 % (39.0-53.0); HGB 7.8 gm/dL (13.0-17.5); Hypochromasia Slight; MCH 31.7 pg (25.0-35.0); MCHC 32.3 g/dL (31.0-37.0); MCV 98.2 fL (80.0-100.0); Mean Platelet Volume 10.5; Poikilocytosis Slight; RBC 2.46 m/uL (4.30-5.90); WBC 4.3 k/uL (3.8-10.6)
[2020-09-28 09:05] LABS: Calcium 7.2 mg/dL (8.4-10.2); Platelet Count 40 k/uL (150-450); Potassium 4.5 mmol/L (3.5-5.1)
--- NOTE | 2020-09-28 09:24 | P.PN ---
Subjective Patient is seen in follow-up for end-stage renal disease. He is maintained on hemodialysis on Friday schedule. Potassium level normal. Complaining of stabbing chest pain across his chest this morning. EKG is being done. Hemodynamically stable. Vital signs are stable. General: The patient appeared well nourished and normally developed. HEENT: Head exam is unremarkable. Neck is without jugular venous distension. LUNGS: Breath sounds decreased. HEART: Rate and Rhythm are regular. ABDOMEN: Soft, nontender. EXTREMITITES: No edema. Objective - Vital Signs Vital signs: Vital Signs Temp 96.8 F L 09/28/20 08:00 Pulse 81 09/28/20 08:00 Resp 18 09/28/20 08:00 BP 140/63 09/28/20 08:00 Pulse Ox 96 09/28/20 08:00 Intake & Output 09/27/20 09/28/20 09/28/20 18:59 06:59 18:59 Intake Total 805 100 470 Balance 805 100 470 Weight 98 kg Intake: Intake, IV Titration 200 100 Amount Calcium Gluconate 1 gm In 100 Sodium Chloride 0.9% 100 ml @ 100 mls/hr IVPB ONCE ONE Rx#:[id number] Piperacillin-Tazobactam 3 100 100 .375 gm In Sodium Chloride 0.9% 100 ml @ 25 mls/hr IVPB Q12HR [facility] Rx #:[id number] Oral [id number] Other: # Voids 2 1 - Labs CBC & Chem 7: 09/28/20 08:13 09/28/20 08:13 Labs: Abnormal Lab Results - Last 24 Hours (Table) 09/27/20 09/27/20 09/27/20 Range/Units 07:40 07:40 11:24 RBC (4.30-5.90) m/uL Hgb (13.0-17.5) gm/dL Hct (39.0-53.0) % Plt Count (150-450) k/uL Sodium (137-145) mmol/L Chloride (98-107) mmol/L Carbon Dioxide (22-30) mmol/L BUN (9-20) mg/dL Creatinine (0.66-1.25) mg/dL Glucose (74-99) mg/dL POC Glucose (mg/dL) 322 H (75-99) mg/dL Calcium (8.4-10.2) mg/dL TIBC 150 L (228-460) ug/dL % Saturation 74.00 H (15.00-50.00) Ferritin 1877.8 H (22.0-322.0) ng/mL C-Reactive Protein 60.4 H (<10.0) mg/L 09/27/20 09/27/20 09/28/20 Range/Units 17:06 20:20 07:29 RBC (4.30-5.90) m/uL Hgb (13.0-17.5) gm/dL Hct (39.0-53.0) % Plt Count (150-450) k/uL Sodium (137-145) mmol/L Chloride (98-107) mmol/L Carbon Dioxide (22-30) mmol/L BUN (9-20) mg/dL Creatinine (0.66-1.25) mg/dL Glucose (74-99) mg/dL POC Glucose (mg/dL) 208 H 246 H 287 H (75-99) mg/dL Calcium (8.4-10.2) mg/dL TIBC (228-460) ug/dL % Saturation (15.00-50.00) Ferritin (22.0-322.0) ng/mL C-Reactive Protein (<10.0) mg/L 09/28/20 09/28/20 Range/Units 08:13 08:13 RBC 2.46 L (4.30-5.90) m/uL Hgb 7.8 L (13.0-17.5) gm/dL Hct 24.2 L (39.0-53.0) % Plt Count 40 L (150-450) k/uL Sodium 136 L (137-145) mmol/L Chloride 92 L (98-107) mmol/L Carbon Dioxide 34 H (22-30) mmol/L BUN 52 H (9-20) mg/dL Creatinine 4.61 H (0.66-1.25) mg/dL Glucose 287 H (74-99) mg/dL POC Glucose (mg/dL) (75-99) mg/dL Calcium 7.2 L (8.4-10.2) mg/dL TIBC (228-460) ug/dL % Saturation (15.00-50.00) Ferritin (22.0-322.0) ng/mL C-Reactive Protein (<10.0) mg/L Microbiology - Last 24 Hours (Table) 09/27/20 19:18 Gram Stain - Preliminary Sputum Sputum Culture - Preliminary 09/25/20 10:21 Blood Culture - Preliminary Blood No Growth after 48 hours 09/25/20 10:13 Blood Culture - Preliminary Blood No Growth after 48 hours Assessment and Plan Plan: Assessment: 1. End-stage renal disease maintained on hemodialysis on Friday schedule via AV fistula. 2. Covid-19 infection maintained on steroids and zinc. 3. Diabetes mellitus. 4. Hypertension with chronic kidney disease. Stable. 5. Chronic kidney disease mineral bone disease maintained on PhosLo. 6. Hyperkalemia secondary to chronic kidney disease as well as hyperglycemia. Improved postdialysis. 7. Hyponatremia secondary to chronic kidney disease and hyperglycemia. Better. 8. Anemia of chronic kidney disease maintained on Aranesp. ?GIB. No active bleeding. Iron replete. Plan: Hemodialysis tomorrow. Tight blood sugar control.
--- NOTE | 2020-09-28 11:27 | P.PN ---
Subjective Progress Note Date: 09/28/20 HISTORY OF PRESENT ILLNESS Debra is a 59-year-old male patient of Dr. Robison with past medical history significant for COPD, chronic diastolic CHF, end-stage renal disease on h emodialysis, type 2 diabetes mellitus, hypertension, hyperlipidemia, chronic pain who was recently hospitalized from September 04 through 09/07/2020 for acute hypoxic rest or a failure related to right lower lobe pneumonia, acute exacerbation of CHF and COPD. He was COVID negative during that admission when tested on 09/04/2020. Patient presented to the hospital on 09/25/2020 with complaints of generalized weakness, cough, one episode of hemoptysis, low-grade fever with a temp of 100.5F. He states his been compliant with hemodialysis and she is usually dialyzed on Friday schedule. 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 Patient's chest x-ray shows a new lingular and left lower lobe pneumonic infiltrate, possibly developing central right hilar infiltrate. COVID 19 PCR was positive. Is admitting to episode of nausea and vomiting yesterday. He is currently on room air, with pulse ox of 93-94%, blood pressure was elevated on admission improved with hemodialysis, low-grade fever this afternoon. Patient remains on room air, white blood cell count is 5.5, hemoglobin is 9.3, platelet count was 48, sodium is 134, potassium is 5.7, chloride is 95, B1 is 71 creatinine 7.58, troponin was 0.051, proBNP was 8080, oral improved since last admission, CRP is 141.5, and LDH is 572. 2/2: Patient has been seen by nephrology with plan for hemodialysis tomorrow and maintain Friday schedule. Patient is also been seen by pulmonary medicine and Decadron, bronchodilators been added. Patient is not candidate for Remdesivir due to end-stage renal disease and low GFR. She has been afebrile, heart rate 62, blood pressure 125/60, pulse ox 98% on room air. D-dimer 1.5. Blood sugars running between 298 and 337. Levemir will be added 1 0 units daily. 2/3: Patient's blood sugars have been extremely high in the 400s. He received 18 units of NovoLog this morning. We will plan to increase Lantus to 15 units, scheduled NovoLog to 12 units with meals. Dexamethasone decreased to 4 mg daily. Patient is been afebrile, heart rate 66, blood pressure 140/63, pulse ox 95-99% on room air. WBC 3.8, hemoglobin 7.4, platelet count is 32. Sodium 128, potassium 6.2, chloride 91, CO2 24, BUN 85 and creatinine 7.29. Repeat chest x- ray reveals improvement in aeration. Patient is scheduled for hemodialysis today. Nephrology is managing potassium, Aranesp added. We did ask for stool for occult blood. 09/28: Patient denies any respiratory distress. No shortness of breath. He has been afebrile, pulse ox is 96% on room air, heart rate 64, blood pressure 165/84. Repeat blood work reveals WBC 4.3, hemoglobin 7.8, platelet count 40. Sodium 136, potassium 4.5, chloride 92, CO2 34, BUN 52 and creatinine 4.61. Blood sugars are running in the 200s. Patient is normally on 20 of scheduled insulin with meals which will increase and continue Levemir. Patient is due for hemodialysis tomorrow. He does voice concerns about going home because his is there and she has been tested for Covid today. They also have a handicapped child in the home. 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 Plan will be to complete dialysis tomorrow and discharge. REVIEW OF SYSTEMS Constitutional: Denies chills, Denies fever, denies headache. Eyes: denies blurred vision, denies pain Ears, nose, mouth and throat: Denies headache, Denies sore throat Cardiovascular: Denies chest pain, Respiratory: Reports dyspnea, Reports respiratory infections, Denies cough Gastrointestinal: Denies abdominal pain, Denies diarrhea, Denies nausea, Denies vomiting Musculoskeletal: Denies myalgias. Denies back pain Integumentary: Denies pruritus, Denies rash Neurological: Denies numbness, Denies weakness Psychiatric: Denies anxiety, Denies depression Endocrine: Positive fatigue, Denies weight change PHYSICAL EXAMINATION GENERAL EXAM: Alert, very pleasant, 59-year- male, comfortable in no apparent distress. HEAD: Normocephalic/atraumatic. EYES: Normal reaction of pupils, equal size. Conjunctiva pink, sclera white. NOSE: Clear with pink turbinates. THROAT: No erythema or exudates. NECK: No masses, no JVD, no thyroid enlargement, no adenopathy. CHEST: No chest wall deformity. Symmetrical expansion. LUNGS: Equal air entry with no crackles, wheeze, rhonchi or dullness. Diminished at bases. CVS: Regular rate and rhythm, normal S1 and S2, no gallops, no murmurs, no rubs. Right AV fistula ABDOMEN: Soft, nontender. No hepatosplenomegaly, normal bowel sounds. EXTREMITIES: No clubbing, no edema, no cyanosis, 2+ pulses and upper and lower e xtremities. MUSCULOSKELETAL: Muscle strength and tone normal. SPINE: No scoliosis or deformity SKIN: No rashes, no wounds CENTRAL NERVOUS SYSTEM: Alert and oriented x3. No focal deficits, tone is nor mal in all 4 extremities. PSYCHIATRIC: Appropriate affect. Intact judgment and insight. ASSESSMENT AND PLAN #1. Acute hypoxic respiratory failure related to COVID 19 pneumonia, rule out possibility of bacterial pneumonia, on Decadron 4 mg along with bronchodilators. He does not qualify for Remdesivir. Continue vitamin supplements. Pulmonary consult appreciated. #2. Recent hospitalization for right lower lobe pneumonia, fluid overload, and COPD exacerbation from September 04 through 09/08/2020, patient was COVID 19 negative during that admission #3. Hemoptysis, single episode, possibly related to thrombocytopenia, pneumonia #4. History of coronary artery disease with catheterization and previous stenting #5. History of COPD on albuterol #6. Obstructive sleep apnea, and most recently patient CPAP machine was broken #7. History of CVA on aspirin and statin #8. Diabetes mellitus type II uncontrolled with hyperglycemia secondary to steroids. Lantus increased to 15 units daily, increase scheduled insulin to 12 units with meals, continue NovoLog scale before meals and at bedtime. #9. GERD/reflux on Protonix #10. Hyperlipidemia on Lipitor 80 mg at at bedtime #11. Essential hypertension on Norvasc 5 mg daily along with Coreg 12.5 mg t wice a day Bumex 4 mg by mouth twice a day, Imdur 30 by mouth daily #12. End-stage renal disease on Friday hemodialysis, consult with nephrology. #13. Chronic thrombocytopenia, we'll continue to monitor labs #14. Severe depression, on Paxil 20 mg daily #15. Past history of chronic alcoholism with history of chronic pancreatitis #16. GI prophylaxis on Protonix #17. DVT prophylaxis, platelets 48 encourage early mobilization. 18. Chronic anemia of chronic kidney disease. Nephrology has added Aranesp. Stool for occult blood to be obtained. Hemoptysis seems to have resolved. Continue to monitor. DISCHARGE PLAN dialysis treatment tomorrow and discharge most likely to home. 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 Impression and plan of care have been directed as dictated by the signing physician. Iram Love nurse practitioner acting as scribe for signing physician. Objective - Vital Signs Vital signs: Vital Signs Temp 96.8 F L 09/28/20 08:00 Pulse 81 09/28/20 08:00 Resp 18 09/28/20 08:00 BP 140/63 09/28/20 08:00 Pulse Ox 96 09/28/20 08:00 Intake & Output 09/27/20 09/28/20 09/28/20 18:59 06:59 18:59 Intake Total 805 100 470 Balance 805 100 470 Weight 98 kg Intake: Intake, IV Titration 200 100 Amount Calcium Gluconate 1 gm In 100 Sodium Chloride 0.9% 100 ml @ 100 mls/hr IVPB ONCE ONE Rx#:[id number] Piperacillin-Tazobactam 3 100 100 .375 gm In Sodium Chloride 0.9% 100 ml @ 25 mls/hr IVPB Q12HR [facility] Rx #:[id number] Oral 605 470 Other: # Voids 2 1 - Labs CBC & Chem 7: 09/28/20 08:13 09/28/20 08:13 Labs: Abnormal Lab Results - Last 24 Hours (Table) 09/27/20 09/27/20 09/27/20 Range/Units 07:40 07:40 09:08 POC Glucose (mg/dL) 550 H (75-99) mg/dL TIBC 150 L (228-460) ug/dL % Saturation 74.00 H (15.00-50.00) Ferritin 1877.8 H (22.0-322.0) ng/mL C-Reactive Protein 60.4 H (<10.0) mg/L 09/27/20 09/27/20 09/27/20 Range/Units 11:24 17:06 20:20 POC Glucose (mg/dL) 322 H 208 H 246 H (75-99) mg/dL TIBC (228-460) ug/dL % Saturation (15.00-50.00) Ferritin (22.0-322.0) ng/mL C-Reactive Protein (<10.0) mg/L 09/28/20 Range/Units 07:29 POC Glucose (mg/dL) 287 H (75-99) mg/dL TIBC (228-460) ug/dL % Saturation (15.00-50.00) Ferritin (22.0-322.0) ng/mL C-Reactive Protein (<10.0) mg/L Microbiology - Last 24 Hours (Table) 09/27/20 19:18 Gram Stain - Preliminary Sputum Sputum Culture - Preliminary 09/25/20 10:21 Blood Culture - Preliminary Blood No Growth after 48 hours 09/25/20 10:13 Blood Culture - Preliminary Blood No Growth after 48 hours
[2020-09-28 12:07] LABS: Glucose,Whole Blood 327 mg/dL (75-99)
--- NOTE | 2020-09-28 12:45 | P.PN ---
Subjective Progress Note Date: 09/28/20 Principal diagnosis: CoVID 19 pneumonitis This is a 59-year-old white male with past medical history of COPD, chronic diastolic CHF, end-stage renal disease on hemodialysis, type 2 diabetes mellitus, hypertension, hyperlipidemia, chronic pain, who was recently hospitalized from September 04 through 09/07/2020 for acute hypoxic rest or a failure related to right lower lobe pneumonia, acute exacerbation of CHF and COPD. He was COVID negative during that admission when tested on 09/04/2020. Patient presented to the hospital on 09/25/2020 with complaints of generalized weakness, cough, one episode of hemoptysis, low-grade fever with a temp of 100.5F. He states his been compliant with hemodialysis and she is usually dialyzed on Friday schedule. 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 Patient's chest x-ray shows a new lingular and left lower lobe pneumonic infiltrate, possibly developing central right hilar infiltrate. COVID 19 PCR was positive. Is admitting to episode of nausea and vomiting yesterday. He is currently on room air, with pulse ox of 93-94%, blood pressure was elevated on admission improved with hemodialysis, low-grade fever this afternoon. Patient remains on room air, white blood cell count is 5.5, hemoglobin is 9.3, platelet count was 48, sodium is 134, potassium is 5.7, chloride is 95, B1 is 71 creatinine 7.58, troponin was 0.051, proBNP was 8080, oral improved since last admission, CRP is 141.5, and LDH is 572. On 09/26/2020 patient seen in follow-up on selective care unit. He had hemodialysis yesterday removal of 700 mL of fluid. He is currently on room air, his been afebrile, blood pressure has been stable, he is breathing better, feeling better. Has productive cough, hemoptysis has significantly improved, he is bringing up some sputum with only jasso colored sputum. His d-dimer came back at 1.50, his pro-calcitonin level came back elevated at 0.68 suggesting possibility of Bacterial infection. We'll add Zosyn for empiric antibiotic coverage, we'll send sputum for culture. The patient is seen today 09/27/2020 in follow-up on the selective care unit. He is currently sitting up in the bedside. Awake and alert in no acute distress. He is on room air. Chest x-ray showing improved aeration. Receiving hemodialysis. He has no IV fluids. He is currently on Zosyn. White count 3.8. Hemoglobin 7.4. Sodium 128. Potassium 6.2. Creatinine 7.29. Currently on Zosyn. He remains on vitamin supplements and dexamethasone. Blood cultures reveal no growth. The patient is seen today 09/28/2020 in follow-up selective care unit. He is currently resting quite comfortably in bed. Awake and alert in no acute distress. He is maintaining O2 saturations in the 90s on room air. He's been afebrile. Hemodynamically stable. Blood and sputum cultures reveal no growth. White count 4.3. Hemoglobin 7.8. Sodium 136. Potassium 4.5. Creatinine 4.61. He remains on dexamethasone, bronchodilators, vitamin supplements. Objective - Vital Signs Vital signs: Vital Signs Temp 98.2 F 09/28/20 10:03 Pulse 80 09/28/20 12:00 Resp 18 09/28/20 12:00 BP 139/66 09/28/20 12:00 Pulse Ox 95 09/28/20 12:00 Intake & Output 09/27/20 09/28/20 09/28/20 18:59 06:59 18:59 Intake Total 805 100 470 Output Total 1000 Balance 805 100 -530 Weight 98 kg Intake: Intake, IV Titration 200 100 Amount Calcium Gluconate 1 gm In 100 Sodium Chloride 0.9% 100 ml @ 100 mls/hr IVPB ONCE ONE Rx#:[id number] Piperacillin-Tazobactam 3 100 100 .375 gm In Sodium Chloride 0.9% 100 ml @ 25 mls/hr IVPB Q12HR [facility] Rx #:[id number] Oral 605 470 Output: Hemodialysis 1000 Other: # Voids 2 1 - Exam GENERAL EXAM: Alert, very pleasant, 59-year-old male patient, on room air, with pulse ox of 95% comfortable in no apparent distress. HEAD: Normocephalic/atraumatic. EYES: Normal reaction of pupils, equal size. Conjunctiva pink, sclera white. NOSE: Clear with pink turbinates. THROAT: No erythema or exudates. NECK: No masses, no JVD, no thyroid enlargement, no adenopathy. CHEST: No chest wall deformity. Symmetrical expansion. LUNGS: Equal air entry with basilar crackles CVS: Regular rate and rhythm, normal S1 and S2, no gallops, no murmurs, no rubs ABDOMEN: Soft, nontender. No hepatosplenomegaly, normal bowel sounds, no guarding or rigidity. EXTREMITIES: No clubbing, no edema, no cyanosis, 2+ pulses and upper and lower extremities. MUSCULOSKELETAL: Muscle strength and tone normal. SPINE: No scoliosis or deformity SKIN: No rashes CENTRAL NERVOUS SYSTEM: No focal deficits, tone is normal in all 4 extremities. PSYCHIATRIC: Alert and oriented -3. Appropriate affect. Intact judgment and insight. - Labs CBC & Chem 7: 09/28/20 08:13 09/28/20 08:13 Labs: Abnormal Lab Results - Last 24 Hours (Table) 09/27/20 09/27/20 09/27/20 Range/Units 07:40 17:06 20:20 RBC (4.30-5.90) m/uL Hgb (13.0-17.5) gm/dL Hct (39.0-53.0) % Plt Count (150-450) k/uL Sodium (137-145) mmol/L Chloride (98-107) mmol/L Carbon Dioxide (22-30) mmol/L BUN (9-20) mg/dL Creatinine (0.66-1.25) mg/dL Glucose (74-99) mg/dL POC Glucose (mg/dL) 208 H 246 H (75-99) mg/dL Calcium (8.4-10.2) mg/dL TIBC 150 L (228-460) ug/dL % Saturation 74.00 H (15.00-50.00) Ferritin 1877.8 H (22.0-322.0) ng/mL 09/28/20 09/28/20 09/28/20 Range/Units 07:29 08:13 08:13 RBC 2.46 L (4.30-5.90) m/uL Hgb 7.8 L (13.0-17.5) gm/dL Hct 24.2 L (39.0-53.0) % Plt Count 40 L (150-450) k/uL Sodium 136 L (137-145) mmol/L Chloride 92 L (98-107) mmol/L Carbon Dioxide 34 H (22-30) mmol/L BUN 52 H (9-20) mg/dL Creatinine 4.61 H (0.66-1.25) mg/dL Glucose 287 H (74-99) mg/dL POC Glucose (mg/dL) 287 H (75-99) mg/dL Calcium 7.2 L (8.4-10.2) mg/dL TIBC (228-460) ug/dL % Saturation (15.00-50.00) Ferritin (22.0-322.0) ng/mL 09/28/20 Range/Units 12:06 RBC (4.30-5.90) m/uL Hgb (13.0-17.5) gm/dL Hct (39.0-53.0) % Plt Count (150-450) k/uL Sodium (137-145) mmol/L Chloride (98-107) mmol/L Carbon Dioxide (22-30) mmol/L BUN (9-20) mg/dL Creatinine (0.66-1.25) mg/dL Glucose (74-99) mg/dL POC Glucose (mg/dL) 327 H (75-99) mg/dL Calcium (8.4-10.2) mg/dL TIBC (228-460) ug/dL % Saturation (15.00-50.00) Ferritin (22.0-322.0) ng/mL Microbiology - Last 24 Hours (Table) 09/25/20 10:21 Blood Culture - Preliminary Blood No Growth after 72 hours 09/25/20 10:13 Blood Culture - Preliminary Blood No Growth after 72 hours 09/27/20 19:18 Gram Stain - Preliminary Sputum Sputum Culture - Preliminary Assessment and Plan Assessment: 1. Acute hypoxic respiratory failure related to COVID 19 pneumonia, rule out possibility of bacterial pneumonia. Pro-Calcitonin level came back elevated at 0.68, suggesting possibility of a picture of pneumonia, patient will be empirically covered with Zosyn 2. Recent hospitalization for right lower lobe pneumonia, fluid overload, and COPD exacerbation from September 04 through 09/08/2020, patient was COVID 19 neg ative during that admission 3. Hemoptysis, single episode, possibly related to pneumonia 4. History of coronary artery disease with catheterization at outside facility with no intervention 5. History of COPD 6. Obstructive sleep apnea, and most recently patient CPAP machine was broken 7. History of CVA 8. Diabetes mellitus 9. GERD/reflux 10. Hyperlipidemia 11. Essential hypertension 12. End-stage renal disease on Friday hemodialysis 13. Chronic thrombocytopenia 14. Severe depression 15. Past history of chronic alcoholism with history of chronic pancreatitis 16. Prior history of tracheostomy for prolonged mechanical ventilatory support related to ARDS 17. Coronary artery disease with previous stenting Plan: The patient was seen and evaluated by Dr. Otoole Currently stable from the pulmonary standpoint Add Lovenox We'll continue to follow I, the cosigning physician, performed a history & physical examination of the patient. Lungs sounds with basilar crackles. Maintaining good O2 saturations in the 90s on room air. I discussed the assessment and plan of care with my nurse practitioner, Keila Paredes. I attest to the above note as dictated by her.
[2020-09-28] MEDS: ENOXAPARIN 40 MG/0.4 ML SYRINGE SQ SCH (15:39)
[2020-09-28] MEDS: PANTOPRAZOLE 40 MG TABLET PO SCH (15:39)
[2020-09-28 17:17] LABS: Glucose,Whole Blood 292 mg/dL (75-99)
[2020-09-28 21:08] LABS: Glucose,Whole Blood 157 mg/dL (75-99)
[2020-09-28] MEDS: ASPIRIN 81 MG PO SCH (21:23)
[2020-09-28] MEDS: ARIPiprazole 5 MG TAB PO SCH (21:23)
[2020-09-28] MEDS: amLODIPine 5 MG TAB PO SCH (21:23)
[2020-09-28] MEDS: ATORVASTATIN 80 MG TAB PO SCH (21:23)
[2020-09-28] MEDS: FOLIC ACID-VIT B COMPLEX-VIT C 1 CAP PO SCH (21:23)
[2020-09-28] MEDS: PARoxetine 20 MG TAB PO SCH (21:26)
[2020-09-28] MEDS: ALPRAZolam 0.25 MG TAB PO PRN (21:26)
[2020-09-28 21:35] VITALS: RESP 16
[2020-09-29] MEDS: MORPHINE SULFATE ER 30 MG TABLET PO SCH (03:26)
[2020-09-29] MEDS: HYDROcodone/APAP 10-325MG 1 EACH TAB PO SCH ×2 (03:27→06:52)
[2020-09-29] MEDS ORDERED: HYDROcodone/APAP 10-325MG 1 EACH TAB PO PRN (06:50)
[2020-09-29 07:05] LABS: Glucose,Whole Blood 273 mg/dL (75-99)
[2020-09-29 07:47] LABS: C Reactive Protein 19.4 mg/L (<10.0)
[2020-09-29] MEDS: ALBUTEROL HFA INHALER INHALATION PRN (07:59)
[2020-09-29] MEDS: INSULIN ASPART (NovoLOG) 100 UNIT/ML VIAL SQ SCH ×4 (08:02→13:42)
[2020-09-29] MEDS: INSULIN DETEMIR (LEVEMIR) 100 UNIT/ML SYR SQ SCH (08:03)
[2020-09-29] MEDS: CHOLECALCIFEROL 25 MCG (1000 IU) TABLET PO SCH (08:13)
[2020-09-29] MEDS: ASCORBIC ACID 500 MG TAB PO SCH (08:13)
[2020-09-29] MEDS: ZINC SULFATE 220 MG CAP PO SCH (08:13)
[2020-09-29] MEDS: PIPERACILLIN-TAZOBACTAM 3.375 GM in SODIUM CHLORIDE 0.9% 100 ML IVPB SCH (08:13)
[2020-09-29] MEDS: dexAMETHasone 4 MG TAB PO SCH (08:13)
[2020-09-29] MEDS: ENOXAPARIN 40 MG/0.4 ML SYRINGE SQ SCH (08:14)
[2020-09-29] MEDS: ISOSORBIDE MONONITRATE ER 30 MG TAB.ER.24H PO SCH (08:14)
[2020-09-29] MEDS: carvediloL 12.5 MG TAB PO SCH (08:14)
[2020-09-29] MEDS: BUMETANIDE 1 MG TAB PO SCH (08:14)
[2020-09-29] MEDS: ALPRAZolam 0.25 MG TAB PO PRN (08:32)
[2020-09-29] MEDS ORDERED: MORPHINE SULFATE ER 15 MG TABLET PO SCH (11:15)
--- NOTE | 2020-09-29 11:16 | P.PN ---
Subjective Patient is seen in follow-up for end-stage renal disease. He is maintained on hemodialysis on Friday schedule. Feels well today. No chest pain or shortness of breath. Oral intake is good. Vital signs are stable. General: The patient appeared well nourished and normally developed. HEENT: Head exam is unremarkable. Neck is without jugular venous distension. LUNGS: Breath sounds decreased. HEART: Rate and Rhythm are regular. ABDOMEN: Soft, nontender. EXTREMITITES: No edema. Objective - Vital Signs Vital signs: Vital Signs Temp 98.1 F 09/29/20 08:00 Pulse 117 H 09/29/20 08:00 Resp 16 09/29/20 08:00 BP 168/68 09/29/20 08:00 Pulse Ox 93 L 09/29/20 08:00 Intake & Output 09/28/20 09/29/20 09/29/20 18:59 06:59 18:59 Intake Total 1320 100 240 Output Total 1000 200 Balance 320 100 40 Weight 99 kg Intake: IV 100 Piperacillin-Tazobactam 3 100 .375 gm In Sodium Chloride 0.9% 100 ml @ 25 mls/hr IVPB Q12HR [facility] Rx #:[id number] Intake, IV Titration 100 Amount Piperacillin-Tazobactam 3 100 .375 gm In Sodium Chloride 0.9% 100 ml @ 25 mls/hr IVPB Q12HR [facility] Rx #:[id number] Oral 1220 240 Output: Urine 200 Hemodialysis 1000 Other: # Voids 1 1 1 - Labs CBC & Chem 7: 09/28/20 08:13 09/28/20 08:13 Labs: Abnormal Lab Results - Last 24 Hours (Table) 09/28/20 09/28/20 09/28/20 Range/Units 12:06 17:16 21:03 D-Dimer (<0.60) mg/L FEU POC Glucose (mg/dL) 327 H 292 H 157 H (75-99) mg/dL C-Reactive Protein (<10.0) mg/L 09/29/20 09/29/20 09/29/20 Range/Units 07:04 07:08 07:08 D-Dimer 1.42 H (<0.60) mg/L FEU POC Glucose (mg/dL) 273 H (75-99) mg/dL C-Reactive Protein 19.4 H (<10.0) mg/L Microbiology - Last 24 Hours (Table) 09/27/20 19:18 Gram Stain - Final Sputum Sputum Culture - Final 09/25/20 10:21 Blood Culture - Preliminary Blood No Growth after 72 hours 09/25/20 10:13 Blood Culture - Preliminary Blood No Growth after 72 hours Assessment and Plan Plan: Assessment: 1. End-stage renal disease maintained on hemodialysis on Friday schedule via AV fistula. 2. Covid-19 infection maintained on steroids and zinc. 3. Diabetes mellitus. 4. Hypertension with chronic kidney disease. Exacerbated by steroids. 5. Chronic kidney disease mineral bone disease maintained on PhosLo. 6. Hyperkalemia secondary to chronic kidney disease as well as hyperglycemia. Improved postdialysis. 7. Hyponatremia secondary to chronic kidney disease and hyperglycemia. Better. 8. Anemia of chronic kidney disease maintained on Aranesp. No active bleeding. Plan: Hemodialysis today. Tight blood sugar control. Avoid use of MS Contin as he is a dialysis patient. I will decrease the dose and defer to primary care team for further changes.
--- NOTE | 2020-09-29 11:39 | P.DS ---
Providers Date of admission: 09/25/20 12:13 Expected date of discharge: 09/29/20 Attending physician: Tyler Archer Consults: 09/25/20 11:50 Consult Physician Urgent Consulting Provider: Marion Garcia Consult Reason/Comments: Dialysis Do you want consulting provider notified?: Yes 09/25/20 12:02 Consult Physician Urgent Consulting Provider: Cristian Wharton Consult Reason/Comments: covid Do you want consulting provider notified?: Yes Primary care physician: Gonzales Parekh [facility] Course: HISTORY OF PRESENT ILLNESS Tt is a 59-year-old male patient of Dr. Robison with past medical history significant for COPD, chronic diastolic CHF, end-stage renal disease on hemodialysis, type 2 diabetes mellitus, hypertension, hyperlipidemia, chronic pa in who was recently hospitalized from September 04 through 09/07/2020 for acute hypoxic rest or a failure related to right lower lobe pneumonia, acute exacerbation of CHF and COPD. He was COVID negative during that admission when tested on 09/04/2020. Patient presented to the hospital on 09/25/2020 with complaints of generalized weakness, cough, one episode of hemoptysis, low-grade fever with a temp of 100.5F. He states his been compliant with hemodialysis and she is usually dialyzed on Friday schedule. 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 Patient's chest x-ray shows a new lingular and left lower lobe pneumonic infiltrate, possibly developing central right hilar infiltrate. COVID 19 PCR was positive. Is admitting to episode of nausea and vomiting yesterday. He is currently on room air, with pulse ox of 93-94%, blood pressure was elevated on a dmission improved with hemodialysis, low-grade fever this afternoon. Patient remains on room air, white blood cell count is 5.5, hemoglobin is 9.3, platelet count was 48, sodium is 134, potassium is 5.7, chloride is 95, B1 is 71 creatinine 7.58, troponin was 0.051, proBNP was 8080, oral improved since last admission, CRP is 141.5, and LDH is 572. 2/2: Patient has been seen by nephrology with plan for hemodialysis tomorrow and maintain Friday schedule. Patient is also been seen by pulmonary medicine and Decadron, bronchodilators been added. Patient is not candidate for Remdesivir due to end-stage renal disease and low GFR. She has been afebrile, heart rate 62, blood pressure 125/60, pulse ox 98% on room air. D-dimer 1.5. Blood sugars running between 298 and 337. Levemir will be added 10 units daily. 2: Patient's blood sugars have been extremely high in the 400s. He received 18 units of NovoLog this morning. We will plan to increase Lantus to 15 units, scheduled NovoLog to 12 units with meals. Dexamethasone decreased to 4 mg daily. Patient is been afebrile, heart rate 66, blood pressure 140/63, pulse ox 95-99% on room air. WBC 3.8, hemoglobin 7.4, platelet count is 32. Sodium 128, potassium 6.2, chloride 91, CO2 24, BUN 85 and creatinine 7.29. Repeat chest x- ray reveals improvement in aeration. Patient is scheduled for hemodialysis today. Nephrology is managing potassium, Aranesp added. We did ask for stool for occult blood. 09/28: Patient denies any respiratory distress. No shortness of breath. He has been afebrile, pulse ox is 96% on room air, heart rate 64, blood pressure 165/84. Repeat blood work reveals WBC 4.3, hemoglobin 7.8, platelet count 40. Sodium 136, potassium 4.5, chloride 92, CO2 34, BUN 52 and creatinine 4.61. Blo od sugars are running in the 200s. Patient is normally on 20 of scheduled insulin with meals which will increase and continue Levemir. Patient is due for hemodialysis tomorrow. He does voice concerns about going home because his is there and she has been tested for Covid today. They also have a handicapped child in the home. house manager/healthcare social worker to revisit discharge planning make sure will be sent for tomorrow. Plan will be to complete dialysis tomorrow and discharge. 09/29: Patient denies any new complaints. He was noted to be in atrial fibrillation by the nurse this morning. Patient relates that he has had that before and was taken off anticoagulation by his mines safety engineer. He will be set up for follow-up appointment with his mines safety engineer. house manager has made arrangem ents for transportation to the [facility] secondary to Covid. Patient is happy with this discharge plan. He denies any significant shortness of breath. No cough. No abdominal pain or diarrhea. He is scheduled for hemodialysis today and will be discharged home after this is completed. ASSESSMENT AND PLAN #1. Acute hypoxic respiratory failure related to COVID 19 pneumonia, possible of bacterial pneumonia #2. Recent hospitalization for right lower lobe pneumonia, fluid overload, and COPD exacerbation from September 04 through 09/08/2020 #3. Hemoptysis, single episode, possibly related to thrombocytopenia and pneumonia #4. History of coronary artery disease with catheterization and previous stenting #5. History of COPD #6. Obstructive sleep apnea, and most recently patient CPAP machine was broken #7. History of CVA #8. Diabetes mellitus type II uncontrolled with hyperglycemia secondary to steroids #9. GERD #10. Hyperlipidemia #11. Essential hypertension #12. End-stage renal disease on Friday hemodialysis #13. Chronic thrombocytopenia #14. Recurrent depression #15. Past history of chronic alcoholism with history of chronic pancreatitis #16. Chronic anemia of chronic kidney disease. DISCHARGE PLAN Home today. Arrangements for HD confirmed by case loader operator. Impression and plan of care have been directed as dictated by the signing physician. Iram Love nurse practitioner acting as scribe for signing physician. Health Concerns: [facility] can deliver for you. Patient Condition at Discharge: Good Plan - Discharge Summary Discharge Rx Participant: No New Discharge Prescriptions: New dexAMETHasone [Hexadrol] 4 mg PO DAILY #5 tab Zinc Sulfate [Orazinc] 220 mg PO DAILY cap Ascorbic Acid [Vitamin C] 1,000 mg PO DAILY tab Cholecalciferol [Vitamin D3 (25 Mcg = 1000 Iu)] 75 mcg PO DAILY tablet Levalbuterol Hfa Inhaler [Xopenex Hfa Inhaler] 2 puff INHALATION Q6HR #1 inhaler Levofloxacin [Levaquin] 500 mg PO Q48H 3 Days #3 tab Continue Atorvastatin Calcium [Lipitor] 80 mg PO HS #30 tab ALPRAZolam [Xanax] 0.25 mg PO DAILY PRN PRN Reason: Anxiety HYDROcodone/APAP 10-325MG [Independence 10-325] 1 tab PO Q4H Insulin Aspart [NovoLOG Flexpen] 20 unit SQ AC-TID Omeprazole [PriLOSEC] 20 mg PO DAILY@1500 ARIPiprazole [Abilify] 5 mg PO HS Bumetanide [BUMEX] 4 mg PO BID Dialyvite 1 tab PO HS Aspirin EC [Ecotrin Low Dose] 81 mg PO HS Carvedilol [Coreg] 12.5 mg PO BID Isosorbide Mononitrate ER [Imdur] 30 mg PO DAILY Morphine Sulfate [Ms Contin] 30 mg PO Q12H PARoxetine [Paxil] 20 mg PO HS amLODIPine [Norvasc] 5 mg PO HS Docusate [Colace] 100 mg PO BID PRN PRN Reason: Constipation Calcium Acetate [PhosLo] 1,334 mg PO AC-TID PRN PRN Reason: meals Discontinued Albuterol Inhaler [Ventolin Hfa Inhaler] 2 puff INHALATION RT-QID PRN #1 inhaler PRN Reason: Shortness Of Breath Or Wheezing Discharge Medication List Atorvastatin Calcium [Lipitor] 80 mg PO HS #30 tab 03/01/14 [Rx] ALPRAZolam [Xanax] 0.25 mg PO DAILY PRN 06/04/18 [History] HYDROcodone/APAP 10-325MG [Independence 10-325] 1 tab PO Q4H 06/04/18 [History] ARIPiprazole [Abilify] 5 mg PO HS 01/04/19 [History] Bumetanide [BUMEX] 4 mg PO BID 01/04/19 [History] Dialyvite 1 tab PO HS 01/04/19 [History] Insulin Aspart [NovoLOG Flexpen] 20 unit SQ AC-TID 01/04/19 [History] Omeprazole [PriLOSEC] 20 mg PO DAILY@1500 01/04/19 [History] Aspirin EC [Ecotrin Low Dose] 81 mg PO HS 09/04/20 [History] Calcium Acetate [PhosLo] 1,334 mg PO AC-TID PRN 09/04/20 [History] Carvedilol [Coreg] 12.5 mg PO BID 09/04/20 [History] Docusate [Colace] 100 mg PO BID PRN 09/04/20 [History] Isosorbide Mononitrate ER [Imdur] 30 mg PO DAILY 09/04/20 [History] Morphine Sulfate [Ms Contin] 30 mg PO Q12H 09/04/20 [History] PARoxetine [Paxil] 20 mg PO HS 09/04/20 [History] amLODIPine [Norvasc] 5 mg PO HS 09/04/20 [History] Ascorbic Acid [Vitamin C] 1,000 mg PO DAILY tab 09/29/20 [Rx] Cholecalciferol [Vitamin D3 (25 Mcg = 1000 Iu)] 75 mcg PO DAILY tablet 09/29/20 [Rx] Levalbuterol Hfa Inhaler [Xopenex Hfa Inhaler] 2 puff INHALATION Q6HR #1 inhaler 09/29/20 [Rx] Levofloxacin [Levaquin] 500 mg PO Q48H 3 Days #3 tab 09/29/20 [Rx] Zinc Sulfate [Orazinc] 220 mg PO DAILY cap 09/29/20 [Rx] dexAMETHasone [Hexadrol] 4 mg PO DAILY #5 tab 09/29/20 [Rx] Follow up Appointment(s)/Referral(s): Juan Carlos Rolle DO [REFERRING] - 10/17/20 1:45 pm (At [place] office. Please keep this previously scheduled appointment. Office is aware that you tested positive for covid. You are OK to come to this appointment in person.) Gonzales Drew MD [Primary Care Provider] - 1-2 days (Office closed, please follow up with Dr. Drew when office reopens on Friday. They may require a telephone/video appointment. ) Patient Instructions/Handouts: Coronavirus Disease 2019 (COVID-19) Activity/Diet/Wound Care/Special Instructions: [facility] has set up transportation to [facility] starting Friday. COVID-19 1. Stay home until symptoms have subsided for three days. 2. Monitor your symptoms; if you get worse call your healthcare provider immediately 3. Get rest 4. Stay hydrated 5. If you have a medical appointment-Notify your provider that you are COVID positive 6. For emergencies call 911 7. Cover your cough and sneezes 8. Wash your hands often 9. Try to stay in one place to reduce exposure 10. Avoid sharing personal items 11. Clean surfaces that you touch.
[2020-09-29 11:58] LABS: Glucose,Whole Blood 212 mg/dL (75-99)
[2020-09-29] MEDS ORDERED: CALCIUM ACETATE 667 MG TAB PO SCH (12:30)
--- NOTE | 2020-09-29 13:16 | P.PN ---
Subjective Progress Note Date: 09/29/20 Principal diagnosis: CoVID 19 pneumonitis This is a 59-year-old white male with past medical history of COPD, chronic diastolic CHF, end-stage renal disease on hemodialysis, type 2 diabetes mellitus, hypertension, hyperlipidemia, chronic pain, who was recently hospitalized from September 04 through 09/07/2020 for acute hypoxic rest or a failure related to right lower lobe pneumonia, acute exacerbation of CHF and COPD. He was COVID negative during that admission when tested on 09/04/2020. Patient presented to the hospital on 09/25/2020 with complaints of generalized weakness, cough, one episode of hemoptysis, low-grade fever with a temp of 100.5F. He states his been compliant with hemodialysis and she is usually dialyzed on Friday schedule. 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 Patient's chest x-ray shows a new lingular and left lower lobe pneumonic infiltrate, possibly developing central right hilar infiltrate. COVID 19 PCR was positive. Is admitting to episode of nausea and vomiting yesterday. He is currently on room air, with pulse ox of 93-94%, blood pressure was elevated on admission improved with hemodialysis, low-grade fever this afternoon. Patient remains on room air, white blood cell count is 5.5, hemoglobin is 9.3, platelet count was 48, sodium is 134, potassium is 5.7, chloride is 95, B1 is 71 creatinine 7.58, troponin was 0.051, proBNP was 8080, oral improved since last admission, CRP is 141.5, and LDH is 572. On 09/26/2020 patient seen in follow-up on selective care unit. He had hemodialysis yesterday removal of 700 mL of fluid. He is currently on room air, his been afebrile, blood pressure has been stable, he is breathing better, feeling better. Has productive cough, hemoptysis has significantly improved, he is bringing up some sputum with only jasso colored sputum. His d-dimer came back at 1.50, his pro-calcitonin level came back elevated at 0.68 suggesting possibility of Bacterial infection. We'll add Zosyn for empiric antibiotic coverage, we'll send sputum for culture. The patient is seen today 09/27/2020 in follow-up on the selective care unit. He is currently sitting up in the bedside. Awake and alert in no acute distress. He is on room air. Chest x-ray showing improved aeration. Receiving hemodialysis. He has no IV fluids. He is currently on Zosyn. White count 3.8. Hemoglobin 7.4. Sodium 128. Potassium 6.2. Creatinine 7.29. Currently on Zosyn. He remains on vitamin supplements and dexamethasone. Blood cultures reveal no growth. The patient is seen today 09/28/2020 in follow-up selective care unit. He is currently resting quite comfortably in bed. Awake and alert in no acute distress. He is maintaining O2 saturations in the 90s on room air. He's been afebrile. Hemodynamically stable. Blood and sputum cultures reveal no growth. White count 4.3. Hemoglobin 7.8. Sodium 136. Potassium 4.5. Creatinine 4.61. He remains on dexamethasone, bronchodilators, vitamin supplements. The patient is seen today 09/29/2020 in follow-up on the selective care unit. He is currently resting comfortably in bed. Awake and alert in no acute distres s. He denies any worsening shortness of breath, cough or congestion. Continues to maintain good O2 saturations in the 90s on room air. He is afebrile. He is due for hemodialysis today. We will switch him from Zosyn to Augmentin. D- dimer 1.42. C-reactive protein 19.4. Objective - Vital Signs Vital signs: Vital Signs Temp 98.2 F 09/29/20 11:28 Pulse 103 H 09/29/20 11:28 Resp 16 09/29/20 11:28 BP 141/82 09/29/20 11:28 Pulse Ox 94 L 09/29/20 11:28 Intake & Output 09/28/20 09/29/20 09/29/20 18:59 06:59 18:59 Intake Total 1320 100 240 Output Total 1000 200 Balance 320 100 40 Weight 99 kg Intake: IV 100 Piperacillin-Tazobactam 3 100 .375 gm In Sodium Chloride 0.9% 100 ml @ 25 mls/hr IVPB Q12HR [facility] Rx #:[id number] Intake, IV Titration 100 Amount Piperacillin-Tazobactam 3 100 .375 gm In Sodium Chloride 0.9% 100 ml @ 25 mls/hr IVPB Q12HR [facility] Rx #:[id number] Oral 1220 240 Output: Urine 200 Hemodialysis 1000 Other: # Voids 1 1 1 - Exam GENERAL EXAM: Alert, very pleasant, 59-year-old male patient, on room air, with pulse ox of 93% comfortable in no apparent distress. HEAD: Normocephalic/atraumatic. EYES: Normal reaction of pupils, equal size. Conjunctiva pink, sclera white. NOSE: Clear with pink turbinates. THROAT: No erythema or exudates. NECK: No masses, no JVD, no thyroid enlargement, no adenopathy. CHEST: No chest wall deformity. Symmetrical expansion. LUNGS: Equal air entry with basilar crackles CVS: Regular rate and rhythm, normal S1 and S2, no gallops, no murmurs, no rubs ABDOMEN: Soft, nontender. No hepatosplenomegaly, normal bowel sounds, no guarding or rigidity. EXTREMITIES: No clubbing, no edema, no cyanosis, 2+ pulses and upper and lower extremities. MUSCULOSKELETAL: Muscle strength and tone normal. SPINE: No scoliosis or deformity SKIN: No rashes CENTRAL NERVOUS SYSTEM: No focal deficits, tone is normal in all 4 extremities. PSYCHIATRIC: Alert and oriented -3. Appropriate affect. Intact judgment and insight. - Labs CBC & Chem 7: 09/28/20 08:13 09/28/20 08:13 Labs: Abnormal Lab Results - Last 24 Hours (Table) 09/28/20 09/28/20 09/29/20 Range/Units 17:16 21:03 07:04 D-Dimer (<0.60) mg/L FEU POC Glucose (mg/dL) 292 H 157 H 273 H (75-99) mg/dL C-Reactive Protein (<10.0) mg/L 09/29/20 09/29/20 09/29/20 Range/Units 07:08 07:08 11:57 D-Dimer 1.42 H (<0.60) mg/L FEU POC Glucose (mg/dL) 212 H (75-99) mg/dL C-Reactive Protein 19.4 H (<10.0) mg/L Microbiology - Last 24 Hours (Table) 09/25/20 10:21 Blood Culture - Preliminary Blood No Growth after 96 hours 09/25/20 10:13 Blood Culture - Preliminary Blood No Growth after 96 hours 09/27/20 19:18 Gram Stain - Final Sputum Sputum Culture - Final Assessment and Plan Assessment: 1. Acute hypoxic respiratory failure related to COVID 19 pneumonia, rule out possibility of bacterial pneumonia. Pro-Calcitonin level came back elevated at 0.68, suggesting possibility of a picture of pneumonia, patient will be empirically covered with Zosyn 2. Recent hospitalization for right lower lobe pneumonia, fluid overload, and COPD exacerbation from September 04 through 09/08/2020, patient was COVID 19 negative during that admission 3. Hemoptysis, single episode, possibly related to pneumonia 4. History of coronary artery disease with catheterization at outside facility with no intervention 5. History of COPD 6. Obstructive sleep apnea, and most recently patient CPAP machine was broken 7. History of CVA 8. Diabetes mellitus 9. GERD/reflux 10. Hyperlipidemia 11. Essential hypertension 12. End-stage renal disease on Friday hemodialysis 13. Chronic thrombocytopenia 14. Severe depression 15. Past history of chronic alcoholism with history of chronic pancreatitis 16. Prior history of tracheostomy for prolonged mechanical ventilatory support related to ARDS 17. Coronary artery disease with previous stenting Plan: The patient was seen and evaluated by Dr. Sydnie Gifford from the pulmonary standpoint We will see as needed I, the cosigning physician, performed a history & physical examination of the patient. Lungs sounds with basilar crackles. Maintaining good O2 saturations in the 90s on room air. I discussed the assessment and plan of care with my nurse practitioner, Keila Paredes. I attest to the above note as dictated by her.
[2020-09-29 15:01] VITALS: BP 140/81; PULSE 114; TEMP 98.1
[2020-09-29] MEDS ORDERED: AMOXIC-POT CLAV 875-125MG 1 EACH TAB PO SCH (21:00)
[2020-09-30] MEDS ORDERED: ENOXAPARIN 30 MG/0.3 ML SYRINGE SQ SCH (09:00)
== END 2020-09-29 15:00 | disposition home or self-care (01) | DRG 177 ==
LOC: EC 09:42 → 3SCARD 12:13
PROVIDERS: ADMIT Internal Medicine Geriatric Medicine; ATTEND Internal Medicine Geriatric Medicine
PROC: 5A1D70Z Performance of Urinary Filtration, Intermittent, Less than 6 Hours Per Day (ICD-10-PCS; principal; 2020-09-25)
DX: U07.1 COVID-19 (principal); J12.82 Pneumonia due to coronavirus disease 2019; J96.01 Acute respiratory failure with hypoxia; N18.6 End stage renal disease; J15.9 Unspecified bacterial pneumonia; E87.1 Hypo-osmolality and hyponatremia; F33.9 Major depressive disorder, recurrent, unspecified; I13.2 Hypertensive heart and chronic kidney disease with heart failure and with stage 5 chronic kidney disease, or end stage renal disease; I42.9 Cardiomyopathy, unspecified; I50.32 Chronic diastolic (congestive) heart failure; J44.0 Chronic obstructive pulmonary disease with (acute) lower respiratory infection; Z99.11 Dependence on respirator [ventilator] status; R04.2 Hemoptysis; E11.22 Type 2 diabetes mellitus with diabetic chronic kidney disease; E11.42 Type 2 diabetes mellitus with diabetic polyneuropathy; E11.65 Type 2 diabetes mellitus with hyperglycemia; E78.5 Hyperlipidemia, unspecified; E87.5 Hyperkalemia; F32.9 Major depressive disorder, single episode, unspecified; F41.9 Anxiety disorder, unspecified; M19.90 Unspecified osteoarthritis, unspecified site; G47.33 Obstructive sleep apnea (adult) (pediatric); E83.89 Other disorders of mineral metabolism; I48.91 Unspecified atrial fibrillation; E87.6 Hypokalemia; I25.10 Atherosclerotic heart disease of native coronary artery without angina pectoris; D69.6 Thrombocytopenia, unspecified; D63.1 Anemia in chronic kidney disease; K21.9 Gastro-esophageal reflux disease without esophagitis; T38.0X5A Adverse effect of glucocorticoids and synthetic analogues, initial encounter; Z99.2 Dependence on renal dialysis; Z95.5 Presence of coronary angioplasty implant and graft; Z87.891 Personal history of nicotine dependence; Z86.73 Personal history of transient ischemic attack (TIA), and cerebral infarction without residual deficits; Z82.49 Family history of ischemic heart disease and other diseases of the circulatory system; Z79.899 Other long term (current) drug therapy; Z79.52 Long term (current) use of systemic steroids; Z79.4 Long term (current) use of insulin; Z98.890 Other specified postprocedural states
CPT/HCPCS: 36415; 71045; 71046; 80048; 80053; 82728; 83036; 83540; 83550; 83605; 83615; 83735; 83880; 84100; 84132; 84145; 84484; 85025; 85027; 85379; 85610; 85730; 86140; 87040; 87070; 87205; 87635; 90935; 93005; 94640; 99285

== ENCOUNTER 2020-10-02 09:39 | Inpatient (IN) | payer MEDICARE ==
[2020-10-02] MEDS ORDERED: ALBUTEROL HFA INHALER INHALATION STA (09:43)
--- NOTE | 2020-10-02 09:46 | ED ---
General Adult HPI - General Stated complaint: MIKE Time Seen by Provider: 10/02/20 09:42 Source: patient, EMS, RN notes reviewed Mode of arrival: EMS Limitations: physical limitation - History of Present Illness Initial comments: Patient is a pleasant 59-year-old male presenting to the emergency department with difficulty breathing. Onset of symptoms was several days ago. Patient was diagnosed with Covid 1 week ago. Patient does have a source of breath with cough. Occasional yellow sputum.Patient did cough up blood some today. Dyspnea has been worsening. No chest pain. Patient is feeling somewhat fatigued. Patient has had some fevers and chills. No leg pain or leg swelling. Patient is on steroids recently.Patient speaks in one to 2 word sentences - Related Data Home Medications Medication Instructions Recorded Confirmed ALPRAZolam [Xanax] 0.25 mg PO DAILY PRN 06/04/18 10/02/20 HYDROcodone/APAP 10-325MG [[place] 1 tab PO Q4H 06/04/18 10/02/20 10-325] ARIPiprazole [Abilify] 5 mg PO HS 01/04/19 10/02/20 Bumetanide [BUMEX] 4 mg PO BID 01/04/19 10/02/20 Dialyvite 1 tab PO HS 01/04/19 10/02/20 Insulin Aspart [NovoLOG Flexpen] 20 unit SQ AC-TID 01/04/19 10/02/20 Omeprazole [PriLOSEC] 20 mg PO DAILY@1500 01/04/19 10/02/20 Aspirin EC [Ecotrin Low Dose] 81 mg PO HS 09/04/20 10/02/20 Calcium Acetate [PhosLo] 1,334 mg PO AC-TID PRN 09/04/20 10/02/20 Carvedilol [Coreg] 12.5 mg PO BID 09/04/20 10/02/20 Docusate [Colace] 100 mg PO BID PRN 09/04/20 10/02/20 Isosorbide Mononitrate ER [Imdur] 30 mg PO DAILY 09/04/20 10/02/20 Morphine Sulfate [Ms Contin] 30 mg PO Q12H 09/04/20 10/02/20 PARoxetine [Paxil] 20 mg PO HS 09/04/20 10/02/20 amLODIPine [Norvasc] 5 mg PO HS 09/04/20 10/02/20 Ipratropium [place] [Atrovent Hfa] 2 puff INHALATION RT-QID 10/02/20 10/02/20 Levalbuterol Hfa Inhaler [Xopenex 2 puff INHALATION RT-Q6H 10/02/20 10/02/20 Hfa Inhaler] Previous Rx's Medication Instructions Recorded Atorvastatin Calcium [Lipitor] 80 mg PO HS #30 tab 03/01/14 Ascorbic Acid [Vitamin C] 1,000 mg PO DAILY tab 09/29/20 Cholecalciferol [Vitamin D3 (25 75 mcg PO DAILY tablet 09/29/20 Mcg = 1000 Iu)] Levofloxacin [Levaquin] 500 mg PO Q48H 3 Days #3 tab 09/29/20 Zinc Sulfate [Orazinc] 220 mg PO DAILY cap 09/29/20 dexAMETHasone [Hexadrol] 4 mg PO DAILY #5 tab 09/29/20 Allergies Allergy/AdvReac Type Severity Reaction Status Date / Time No Known Allergies Allergy Verified 10/02/20 10:09 Review of Systems ROS Statement: Those systems with pertinent positive or pertinent negative responses have been documented in the HPI. ROS Other: All systems not noted in ROS Statement are negative. Constitutional: Reports: fever Eyes: Denies: eye pain ENT: Denies: ear pain Respiratory: Reports: cough, dyspnea Cardiovascular: Denies: chest pain Endocrine: Reports: fatigue Gastrointestinal: Denies: abdominal pain Genitourinary: Denies: dysuria Musculoskeletal: Denies: back pain Skin: Denies: rash Neurological: Denies: weakness Past Medical History Past Medical History: Coronary Artery Disease (CAD), Chest Pain / Angina, Heart Failure, COPD, CVA/TIA, Diabetes Mellitus, GERD/Reflux, Hyperlipidemia, Hypertension, Osteoarthritis (OA), Renal Disease, Respiratory Disorder, Sleep Apnea/CPAP/BIPAP Additional Past Medical History / Comment(s): Pt recently admitted to [facility] on 09/04/20 with acute respiratory failure d/t combination of fluid overload/exacerbation COPD/exacerbation CHF and R side pneumonia. Other hx: Pt tested covid + on 09/25/20 at [facility], IDDM type II, ESRD with dialysis M/W/F, neuropathy bilateral feet/hands, chronic anemia, severe cardiomyopathy/EF 30%, CVA with some R sided weakness, past ETOH abuse, esophageal varicies/nonbleeding, chronic pancreatitis, splenomegaly, chronic thrombocytopenia, MONTSE with Cpap, hx ARDS with group home vent/trach, chronic cervical and back pain History of Any Multi-Drug Resistant Organisms: None Reported Past Surgical History: Appendectomy, Back Surgery, Cholecystectomy, Heart Catheterization, Heart Catheterization With Stent Additional Past Surgical History / Comment(s): Recent cardiac cath, PCI with stents, anterior cervical fusion with plate, R arm dialysis graft, nonfunctioning L upper arm dialysis graft, tracheostomy, colonoscopy. Past Anesthesia/Blood Transfusion Reactions: No Reported Reaction Date of Last Stent Placement:: 2010 Smoking Status: Former smoker - Past Family History Father Family Medical History: Coronary Artery Disease (CAD), Myocardial Infarction (ND) Additional Family Medical History / Comment(s): Father of a ND at the age of 65yrs. Mother Family Medical History: Coronary Artery Disease (CAD), Myocardial Infarction (ND) Additional Family Medical History / Comment(s): Mother of a ND at the age of 55yrs. Brother(s) Family Medical History: Cancer Daughter(s) Family Medical History: Vascular Disorder (VSD) General Exam Limitations: physical limitation General appearance: alert Head exam: Present: atraumatic Eye exam: Present: normal appearance Neck exam: Present: normal inspection Respiratory exam: Present: respiratory distress, rales, accessory muscle use Cardiovascular Exam: Present: tachycardia GI/Abdominal exam: Present: soft. Absent: tenderness Extremities exam: Present: normal inspection. Absent: pedal edema, calf tenderness Neurological exam: Present: alert Psychiatric exam: Present: normal affect, normal mood Skin exam: Present: normal color Course Vital Signs 10/02/20 10/02/20 10/02/20 09:42 10:20 10:50 Temperature 98 F Pulse Rate 133 H 126 H 114 H Respiratory 36 H 35 H 30 H Rate Blood Pressure 169/110 154/89 111/91 O2 Sat by Pulse 92 L 95 96 Oximetry - Reevaluation(s) Reevaluation #1: 10/02/20 11:08 There is potential for sepsis diagnosed at 11 AM. Blood culture and lactic acid have been ordered. IV antibiotics will be ordered. EKG Findings - EKG Comments: EKG Findings:: A. fib with RVR, rate 136. QRS 124. QT 298. QTC 448. Normal axis. Septal Q waves. Lateral T wave inversion. Inferior T wave inversion. Medical Decision Making - Medical Decision Making Patient reevaluated multiple times. Patient is improved with BiPAP. Patient does not necessitate ventilator at this time and this will be avoided. Case was discussed in detail with Dr. Feliciano, who will admit covering for Dr. Drew. She would like antibiotics as well as every 6 Decadron, 6 mg.Case also discussed with Dr. Wharton who agrees with ICU and will consult. Nephrology has been paged. - Lab Data Result diagrams: 10/02/20 09:57 10/02/20 09:57 Lab Results 10/02/20 10/02/20 10/02/20 Range/Units 09:57 09:57 09:57 WBC 25.2 H (3.8-10.6) k/uL RBC 3.14 L (4.30-5.90) m/uL Hgb 10.3 L (13.0-17.5) gm/dL Hct 30.4 L (39.0-53.0) % MCV 96.8 (80.0-100.0) fL MCH 32.7 (25.0-35.0) pg MCHC 33.8 (31.0-37.0) g/dL RDW 16.0 H (11.5-15.5) % Plt Count 174 D (150-450) k/uL MPV 9.2 Neutrophils % 92 % Lymphocytes % 5 % Monocytes % 3 % Eosinophils % 0 % Basophils % 0 % Neutrophils # 23.1 H (1.3-7.7) k/uL Lymphocytes # 1.2 (1.0-4.8) k/uL Monocytes # 0.7 (0-1.0) k/uL Eosinophils # 0.0 (0-0.7) k/uL Basophils # 0.1 (0-0.2) k/uL Poikilocytosis Slight Anisocytosis Slight PT 11.3 (9.0-12.0) sec INR 1.1 (<1.2) APTT 19.1 L (22.0-30.0) sec Sodium 136 L (137-145) mmol/L Potassium 6.1 H* (3.5-5.1) mmol/L Chloride 94 L (98-107) mmol/L Carbon Dioxide 26 (22-30) mmol/L Anion Gap 16 mmol/L BUN 117 H* (9-20) mg/dL Creatinine 7.32 H* (0.66-1.25) mg/dL Est GFR (CKD-EPI)AfAm 8 (>60 ml/min/1.73 sqM) Est GFR (CKD-EPI)NonAf 7 (>60 ml/min/1.73 sqM) Glucose 310 H (74-99) mg/dL Plasma Lactic Acid [place]o (0.7-2.0) mmol/L Calcium 6.8 L (8.4-10.2) mg/dL Magnesium 1.9 (1.6-2.3) mg/dL Total Bilirubin 1.6 H (0.2-1.3) mg/dL AST 26 (17-59) U/L ALT 34 (4-49) U/L Alkaline Phosphatase 59 (38-126) U/L Lactate Dehydrogenase 713 H (313-618) U/L C-Reactive Protein 60.5 H (<10.0) mg/L Total Protein 6.1 L (6.3-8.2) g/dL Albumin 3.5 (3.5-5.0) g/dL 10/02/20 Range/Units 09:57 WBC (3.8-10.6) k/uL RBC (4.30-5.90) m/uL Hgb (13.0-17.5) gm/dL Hct (39.0-53.0) % MCV (80.0-100.0) fL MCH (25.0-35.0) pg MCHC (31.0-37.0) g/dL RDW (11.5-15.5) % Plt Count (150-450) k/uL MPV Neutrophils % % Lymphocytes % % Monocytes % % Eosinophils % % Basophils % % Neutrophils # (1.3-7.7) k/uL Lymphocytes # (1.0-4.8) k/uL Monocytes # (0-1.0) k/uL Eosinophils # (0-0.7) k/uL Basophils # (0-0.2) k/uL Poikilocytosis Anisocytosis PT (9.0-12.0) sec INR (<1.2) APTT (22.0-30.0) sec Sodium (137-145) mmol/L Potassium (3.5-5.1) mmol/L Chloride (98-107) mmol/L Carbon Dioxide (22-30) mmol/L Anion Gap mmol/L BUN (9-20) mg/dL Creatinine (0.66-1.25) mg/dL Est GFR (CKD-EPI)AfAm (>60 ml/min/1.73 sqM) Est GFR (CKD-EPI)NonAf (>60 ml/min/1.73 sqM) Glucose (74-99) mg/dL Plasma Lactic Acid [place]o 1.4 (0.7-2.0) mmol/L Calcium (8.4-10.2) mg/dL Magnesium (1.6-2.3) mg/dL Total Bilirubin (0.2-1.3) mg/dL AST (17-59) U/L ALT (4-49) U/L Alkaline Phosphatase (38-126) U/L Lactate Dehydrogenase (313-618) U/L C-Reactive Protein (<10.0) mg/L Total Protein (6.3-8.2) g/dL Albumin (3.5-5.0) g/dL - Radiology Data Radiology results: image reviewed (Chest x-ray has diffuse interstitial) Critical Care Time Critical Care Time: Yes Total Critical Care Time: 39 Disposition Clinical Impression: Acute respiratory failure, COVID-19, ESRD (end stage renal disease), Acute hyperkalemia Disposition: ADMITTED IP TO THIS [facility] Condition: Critical Is patient prescribed a controlled substance at d/c from ED?: No Referrals: Gonzales Drew MD [Primary Care Provider] - 1-2 days Decision Time: 11:08
[2020-10-02] MEDS: DILTIAZEM 125 MG in SODIUM CHLORIDE 0.9% 100 ML IV SCH ×2 (10:15→20:05)
[2020-10-02 10:23] LABS: Anisocytosis Slight; Basophils # (A) 0.1 k/uL (0-0.2); Basophils % (A) 0 %; Eosinophils % (A) 0 %; HCT 30.4 % (39.0-53.0); HGB 10.3 gm/dL (13.0-17.5); Lymphocytes # (A) 1.2 k/uL (1.0-4.8); Lymphocytes % (A) 5 %; MCH 32.7 pg (25.0-35.0); MCHC 33.8 g/dL (31.0-37.0); MCV 96.8 fL (80.0-100.0); Mean Platelet Volume 9.2; Monocytes # (A) 0.7 k/uL (0-1.0); Monocytes % (A) 3 %; Neutrophils # (A) 23.1 k/uL (1.3-7.7); Neutrophils % (A) 92 %; Poikilocytosis Slight; RBC 3.14 m/uL (4.30-5.90); WBC 25.2 k/uL (3.8-10.6)
[2020-10-02 10:27] LABS: Albumin 3.5 g/dL (3.5-5.0); C Reactive Protein 60.5 mg/L (<10.0); Calcium 6.8 mg/dL (8.4-10.2); Magnesium 1.9 mg/dL (1.6-2.3); Platelet Count 174 k/uL (150-450); Total Bilirubin 1.6 mg/dL (0.2-1.3); Total Protein 6.1 g/dL (6.3-8.2)
[2020-10-02] MEDS ORDERED: LORazepam 2 MG/ML INJ IV STA (10:31)
--- NOTE | 2020-10-02 10:31 | XR ---
EXAMINATION TYPE: XR chest 1V portable DATE OF EXAM: 10/02/2020 Comparison: 09/27/2020 Clinical History: 59-year-old male shortness of breath, difficulty breathing, Suspected COVID-19 pneu monia Findings: Heart upper limits of normal size. Diffuse bilateral airspace opacity is present. No pleural effusion . ACDF hardware. Impression: Extensive diffuse bilateral airspace disease in keeping with COVID pneumonia in the correct clinical setting.
[2020-10-02 10:33] LABS: Potassium 6.1 mmol/L (3.5-5.1)
[2020-10-02 10:35] LABS: INR 1.1 (<1.2); Prothrombin Time 11.3 sec (9.0-12.0)
[2020-10-02 10:51] LABS: Partial Thromboplastin Time 19.1 sec (22.0-30.0)
[2020-10-02] MEDS ORDERED: NALOXONE 0.4 MG/ML 1 ML VIAL IV PRN (11:13)
[2020-10-02] MEDS ORDERED: ACETAMINOPHEN TAB 325 MG TAB PO PRN (11:13)
[2020-10-02] MEDS ORDERED: IPRATROPIUM-ALBUTEROL 3 ML NEB INHALATION PRN (11:13)
[2020-10-02] MEDS ORDERED: AZITHROMYCIN 500 MG in SODIUM CHLORIDE 0.9% 250 ML IVPB STA (11:15)
[2020-10-02] MEDS ORDERED: PIPERACILLIN-TAZOBACTAM 3.375 GM in SODIUM CHLORIDE 0.9% 100 ML IVPB STA (11:15)
[2020-10-02] MEDS ORDERED: PNEUMONIA PROTOCOL UTILIZED 1 EACH MISC PO PRN (11:15)
[2020-10-02] MEDS ORDERED: DEXAMETHASONE SOD PHOSPHATE 10 MG/ML 1 ML VIAL IV SCH (12:00)
[2020-10-02 12:12] LABS: Glucose,Whole Blood 331 mg/dL (75-99)
[2020-10-02] MEDS ORDERED: DOCUSATE 100 MG CAP PO PRN (13:24)
[2020-10-02] MEDS ORDERED: CALCIUM ACETATE 667 MG TAB PO PRN (13:24)
[2020-10-02] MEDS ORDERED: ALPRAZolam 0.25 MG TAB PO PRN (13:24)
--- NOTE | 2020-10-02 14:49 | P.CNPUL ---
History of Present Illness Consult date: 10/02/20 Reason for consult: dyspnea, pneumonia History of present illness: 59-year-old male patient came into the emergency department today because of w orsening shortness of breath. The patient was in the hospital. He has multiple medical problems and comorbidities. He was diagnosed having coronavirus/Covid 19 related pneumonia approximately a week ago and he was treated on outpatient basis and upon discharge was asked to complete his course of Decadron and he was also given a course of Levaquin on outpatient basis. He has multiple issues inc luding end-stage renal disease and his last hemodialysis was on Friday prior to him being discharged from the hospital. The patient came into the emergency department having worsening shortness of breath and cough and yellow sputum production and he did cough out some blood today. His shortness of breath was getting worse. No chest pain. He was feeling quite fatigued. He had some fever and chills. No major swelling lower extremities or upper extremities. He has and functional AV fistula in the right upper extremity. He was unable to speak long sentences and he was able to state only a few words in the emergency department. His chest x-ray showed diffuse bilateral pulmonary infiltration and his white cell count was at 25.2 and the hemoglobin was 10.3. Potassium level was at 6.1. BUN was 170 with a creatinine of 7.3. Glucose was 310. ProBNP level was 42,000. Bilirubin level was at 1.6. SGOT was 26, SGPT was 34. Alkaline phosphatase was 59. LDH was 713 and the CRP level was 60.5. The patient was placed on a BiPAP at a pressure of 12/5 cm of water and following that the patient got transferred to the intensive care unit. The patient was started on hemodialysis. He did have an echocardiogram during his most recent hospitalization and echocardiac Paxton showed a preserved LV function with an ejection fraction of 55% without any significant valvular abnormality. This was done on 09/05/2020. There was moderate concentric LVH. No pericardial effusion. No significant pulmonary hypertension. Review of Systems Constitutional: Denies chills, Denies fever Eyes: denies blurred vision, denies pain Ears, nose, mouth and throat: Denies headache, Denies sore throat Cardiovascular: Denies chest pain, Denies shortness of breath Respiratory: Reports dyspnea, Reports respiratory infections, admits to have cough and worsening shortness of breath and some yellow sputum production possibly some hemoptysis. Gastrointestinal: Denies abdominal pain, Denies diarrhea, Denies nausea, Denies vomiting Musculoskeletal: Denies myalgias Integumentary: Denies pruritus, Denies rash Neurological: Denies numbness, Denies weakness Psychiatric: Denies anxiety, Denies depression Endocrine: Denies fatigue, Denies weight change Past Medical History Past Medical History: Coronary Artery Disease (CAD), Chest Pain / Angina, Heart Failure, COPD, CVA/TIA, Diabetes Mellitus, GERD/Reflux, Hyperlipidemia, Hypertension, Osteoarthritis (OA), Renal Disease, Respiratory Disorder, Sleep Apnea/CPAP/BIPAP Additional Past Medical History / Comment(s): Pt recently admitted to [facility] on 09/04/20 with acute respiratory failure d/t combination of fluid overload/exacerbation COPD/exacerbation CHF and R side pneumonia. 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 History of Any Multi-Drug Resistant Organisms: None Reported Past Surgical History: Appendectomy, Back Surgery, Cholecystectomy, Heart Catheterization, Heart Catheterization With Stent Additional Past Surgical History / Comment(s): Recent cardiac cath, PCI with stents, anterior cervical fusion with plate, R arm dialysis graft, nonfunctioning L upper arm dialysis graft, tracheostomy, colonoscopy. Past Anesthesia/Blood Transfusion Reactions: No Reported Reaction Date of Last Stent Placement:: 2010 Past Psychological History: Anxiety, Depression Additional Psychological History / Comment(s): Pt resides with his spouse and their 2 sons, one of which is a handicapped minor and the other an adult. Pt has a glucometer. He drives. Smoking Status: Former smoker Past Alcohol Use History: None Reported Additional Past Alcohol Use History / Comment(s): Quit smoking 1990, smoked approx 22 yrs 1ppd, no alcohol for over 7 yrs. Past Drug Use History: None Reported - Past Family History Father Family Medical History: Coronary Artery Disease (CAD), Myocardial Infarction (HI) Additional Family Medical History / Comment(s): Father of a HI at the age of 65yrs. Mother Family Medical History: Coronary Artery Disease (CAD), Myocardial Infarction (HI) Additional Family Medical History / Comment(s): Mother of a HI at the age of 55yrs. Brother(s) Family Medical History: Cancer Daughter(s) Family Medical History: Vascular Disorder (VSD) Medications and Allergies Home Medications Medication Instructions Recorded Confirmed Type Atorvastatin Calcium [Lipitor] 80 mg PO HS #30 tab 03/01/14 10/02/20 Rx ALPRAZolam [Xanax] 0.25 mg PO DAILY PRN 06/04/18 10/02/20 History HYDROcodone/APAP 10-325MG [[place] 1 tab PO Q4H 06/04/18 10/02/20 History 10-325] ARIPiprazole [Abilify] 5 mg PO HS 01/04/19 10/02/20 History Bumetanide [BUMEX] 4 mg PO BID 01/04/19 10/02/20 History Dialyvite 1 tab PO HS 01/04/19 10/02/20 History Insulin Aspart [NovoLOG Flexpen] 20 unit SQ AC-TID 01/04/19 10/02/20 History Omeprazole [PriLOSEC] 20 mg PO DAILY@1500 01/04/19 10/02/20 History Aspirin EC [Ecotrin Low Dose] 81 mg PO HS 09/04/20 10/02/20 History Calcium Acetate [PhosLo] 1,334 mg PO AC-TID PRN 09/04/20 10/02/20 History Carvedilol [Coreg] 12.5 mg PO BID 09/04/20 10/02/20 History Docusate [Colace] 100 mg PO BID PRN 09/04/20 10/02/20 History Isosorbide Mononitrate ER [Imdur] 30 mg PO DAILY 09/04/20 10/02/20 History Morphine Sulfate [Ms Contin] 30 mg PO Q12H 09/04/20 10/02/20 History PARoxetine [Paxil] 20 mg PO HS 09/04/20 10/02/20 History amLODIPine [Norvasc] 5 mg PO HS 09/04/20 10/02/20 History Ascorbic Acid [Vitamin C] 1,000 mg PO DAILY tab 09/29/20 10/02/20 Rx Cholecalciferol [Vitamin D3 (25 75 mcg PO DAILY tablet 09/29/20 10/02/20 Rx Mcg = 1000 Iu)] Levofloxacin [Levaquin] 500 mg PO Q48H 3 Days #3 tab 09/29/20 10/02/20 Rx Zinc Sulfate [Orazinc] 220 mg PO DAILY cap 09/29/20 10/02/20 Rx dexAMETHasone [Hexadrol] 4 mg PO DAILY #5 tab 09/29/20 10/02/20 Rx Ipratropium [place] [Atrovent Hfa] 2 puff INHALATION RT-QID 10/02/20 10/02/20 History Levalbuterol Hfa Inhaler [Xopenex 2 puff INHALATION RT-Q6H 10/02/20 10/02/20 History Hfa Inhaler] Allergies Allergy/AdvReac Type Severity Reaction Status Date / Time No Known Allergies Allergy Verified 10/02/20 10:09 Physical Exam Vitals: Vital Signs Temp Pulse Resp BP Pulse Ox 10/02/20 13:00 92 18 90/59 95 10/02/20 12:30 99.0 F 85 21 85/68 94 L 10/02/20 11:45 98.4 F 10/02/20 11:31 99.0 F 10/02/20 11:30 129 H 26 H 117/80 92 L 10/02/20 11:00 118 H 26 H 111/91 94 L 10/02/20 10:50 114 H 30 H 111/91 96 10/02/20 10:20 126 H 35 H 154/89 95 10/02/20 09:42 98 F 133 H 36 H 169/110 92 L Intake and Output 10/01/20 10/02/20 10/02/20 22:59 06:59 14:59 Intake Total 275 Balance 275 Intake: IV 275 Azithromycin 500 mg In 250 Sodium Chloride 0.9% 250 ml @ 250 mls/hr IVPB DAILY [facility] Rx#:[id number] Piperacillin-Tazobactam 3 25 .375 gm In Sodium Chloride 0.9% 100 ml @ 25 mls/hr IVPB Q8H [facility] Rx#: [id number] Other: Voiding Method Urinal Weight 105.3 kg GENERAL EXAM: Alert, very pleasant, 59-year-old white male, the patient is currently wearing a BiPAP at a pressure of 12/5 cm of water with an FiO2 of 60%. The patient is currently synchronous with BiPAP machine. He is not using accessory muscles of breathing. HEAD: Normocephalic/atraumatic. EYES: Normal reaction of pupils, equal size. Conjunctiva pink, sclera white. NOSE: Clear with pink turbinates. THROAT: No erythema or exudates. NECK: No masses, no JVD, no thyroid enlargement, no adenopathy. CHEST: No chest wall deformity. Symmetrical expansion. LUNGS: The patient diminished breath sounds and crackles in lung bases along with scattered expiratory wheezes heard bilaterally. CVS: Regular rate and rhythm, normal S1 and S2, no gallops, no murmurs, no rubs ABDOMEN: Soft, nontender. No hepatosplenomegaly, normal bowel sounds, no guarding or rigidity. EXTREMITIES: No clubbing, no edema, no cyanosis, 2+ pulses and upper and lower extremities. The patient has a functioning AV fistula in the right upper extremity. MUSCULOSKELETAL: Muscle strength and tone normal. SPINE: No scoliosis or deformity SKIN: No rashes CENTRAL NERVOUS SYSTEM: Alert and oriented -3. No focal deficits, tone is normal in all 4 extremities. PSYCHIATRIC: Alert and oriented -3. Appropriate affect. Intact judgment and insight. Results - Laboratory Findings CBC and BMP: 10/02/20 09:57 10/02/20 09:57 PT/INR, D-dimer PT 11.3 sec (9.0-12.0) 10/02/20 09:57 INR 1.1 (<1.2) 10/02/20 09:57 Abnormal lab findings: Abnormal Labs 10/02/20 10/02/20 10/02/20 09:57 09:57 09:57 WBC 25.2 H RBC 3.14 L Hgb 10.3 L Hct 30.4 L RDW 16.0 H Neutrophils # 23.1 H APTT 19.1 L Sodium 136 L Potassium 6.1 H* Chloride 94 L BUN 117 H* Creatinine 7.32 H* Glucose 310 H POC Glucose (mg/dL) Calcium 6.8 L Total Bilirubin 1.6 H Lactate Dehydrogenase 713 H C-Reactive Protein 60.5 H Total Protein 6.1 L 10/02/20 12:10 WBC RBC Hgb Hct RDW Neutrophils # APTT Sodium Potassium Chloride BUN Creatinine Glucose POC Glucose (mg/dL) 331 H Calcium Total Bilirubin Lactate Dehydrogenase C-Reactive Protein Total Protein - Diagnostic Findings Chest x-ray: image reviewed Assessment and Plan Plan: 1 acute hypoxic respiratory failure on top of chronic respiratory failure and the patient is coming in with diffuse bilateral pulmonary infiltrates. Consider fluid overload that evolved over the past 3 days as the patient is less hemodialysis approximately 3 days ago. Consider superinfection/pneumonia including the possibility of hospital-acquired pneumonia. Unlikely to be related to Covid 19 related pneumonia progression yet cannot be completely ruled out. The patient has dense bilateral pulmonary infiltrates with obvious interval worsening over the past 3 days. 2 acute leukocytosis 3 recent hospitalization for: 19 related pneumonia 4 history of hemoptysis 5 coronary artery disease with previous cardiac catheterization and stenting 6 COPD 7 obstructive sleep apnea, not utilizing any form of sleep machine on outpatient basis 8 previous history of CVA with right-sided weakness 9 diabetes mellitus type 2 10 hyperlipidemia 11 hypertension 12 and stage renal disease on hemodialysis MWF 13 chronic thrombocytopenia improved on today's blood work 14 depression 15 history of alcoholism with secondary chronic pancreatitis and previous history of portal hypertension and esophageal varices 16. History of prolonged ventilator dependent respiratory failure due to ARDS requiring tracheostomy tube insertion and subsequent removal 17 anemia of chronic disease Plan Continue with hemodialysis. Repeat chest x-ray postdialysis to evaluate the presence and interval improve ment of bilateral pulmonary for place. Anticipate improvement of the patient's pulmonary infiltrates related to pulmonary edema and fluid. Continue BiPAP for respiratory support Wean down the FiO2 to maintain saturation above 90% Continue hemodialysis per nephrology Decadron 6 mg IV daily 24 hours IV Zosyn as an empiric antibiotic coverage covering for hospital-acquired pathogens Resume home/outpatient medications Albuterol HFA every 6 hours scheduled Monitor blood sugar and give the patient insulin NovoLog 20 units 3 times a day with meals plus a scale Sputum Gram stain and culture possible Blood culture We'll continue to follow. Keep the patient ICU for now.
[2020-10-02] MEDS: HYDROcodone/APAP 10-325MG 1 EACH TAB PO SCH ×3 (15:31→21:30)
[2020-10-02] MEDS: MORPHINE SULFATE ER 30 MG TABLET PO SCH (15:31)
[2020-10-02] MEDS: PANTOPRAZOLE 40 MG TABLET PO SCH (15:32)
[2020-10-02] MEDS: DEXAMETHASONE SOD PHOSPHATE 10 MG/ML 1 ML VIAL IV SCH (15:32)
[2020-10-02] MEDS ORDERED: IPRATROPIUM-ALBUTEROL 3 ML NEB INHALATION SCH (16:00)
[2020-10-02] MEDS ORDERED: ALBUTEROL HFA INHALER INHALATION SCH (16:00)
[2020-10-02 16:13] LABS: Ferritin 1742.9 ng/mL (22.0-322.0)
--- NOTE | 2020-10-02 16:28 | P.HPIM ---
History of Present Illness H&P Date: 10/02/20 Chief Complaint: Shortness of breath This is a pleasant 59-year-old gentleman patient of Dr. Raza. He has underlying history of COPD chronic diastolic CHF and facial disease on hemodialysis, diabetes type 2, hypertension, hyperlipidemia chronic pain, who was originally hospitalized September 04 to September 07 for hypoxemic respiratory failure and right lower lobe pneumonia secondary to CHF and COPD exacerbation. He was covered at that time. He comes back on September 25, for shortness of breath, and now diagnosed to have covered positive pneumonia left-sided. He p resented with cytokine storm as well during that admission. His treatment at that time include Decadron 6 mg every 12 hours, followed by Dr. Wharton, also had atrial fibrillation, paroxysmal, for which anticoagulation has been held secondary to hemoptysis. he did not receive remdesivir during that that admission secondary to hemodialysis, end-stage renal failure, he was not hypoxemic at that time. He did not receive prominent bamlanivimab infusion either. She was discharged on dexamethasone 4 mg daily 5 days, Levaquin 500 milligrams 3 days every 48 hours, levalbuterol inhaler zinc and vitamin C. his last hemodialysis was approximately less than 3 days ago, He now comes in to emergency room with significant shortness of breath, this worsening dyspnea hypoxemia, required BiPAP treatment in the emergency room and is now transferred to ICU. Consult with [facility] critical care pulmonary doctor, O2 supplementation, IV antibiotics, chest x-ray emergency room shows worsening interval of the bilateral pulmonary infiltrates, also with bilateral pulmonary edema, IV antibiotics Zosyn, IV dexamethasone 6 mg every 6 hours, bronchodilators, consult with Dr. Garcia nephrology. Head admitting temperature was 99, heart rate 85-134, systolic blood pressure 85/68, current trend of 115/ 64, pulse ox 94% on BiPAP, 50% FiO2 Review of Systems Constitutional: Reports as per HPI, Reports chills, Reports fatigue, Reports fever, Denies anorexia, Denies chronic headaches, Denies chronic pain, Denies daytime sleepiness, Denies lethargy, Denies malaise, Denies night sweats, Denies poor appetite, Denies sweats, Denies weakness, Denies weight gain, Denies weight loss Ears, nose, mouth and throat: Reports as per HPI Cardiovascular: Reports as per HPI, Reports decreased exercise tolerance, Reports dyspnea on exertion, Reports rapid heart beat, Reports shortness of breath Respiratory: Reports dyspnea Genitourinary: Reports as per HPI Musculoskeletal: Reports as per HPI Integumentary: Reports as per HPI Neurological: Reports as per HPI Psychiatric: Reports as per HPI, Denies anhedonia, Denies anxiety, Denies anxiety attacks, Denies change in appetite, Denies change in libido, Denies change in sleep habits, Denies confusion, Denies depression, Denies difficulty concentrating, Denies disorientation, Denies hallucinations, Denies hopelessness, Denies hypersomnia, Denies insomnia, Denies irritability, Denies memory loss, Denies mood swings, Denies paranoia, Denies sadness/tearfulness, Denies sleep disturbances, Denies suicidal ideation Hematologic/Lymphatic: Reports as per HPI Allergic/Immunologic: Reports as per HPI, Denies allergic rhinitis, Denies anaphylaxis, Denies angioedema, Denies gluten intolerance, Denies persistent infections, Denies seasonal allergies, Denies urticaria, Denies wheezing Past Medical History Past Medical History: Coronary Artery Disease (CAD), Chest Pain / Angina, Heart Failure, COPD, CVA/TIA, Diabetes Mellitus, GERD/Reflux, Hyperlipidemia, Hypertension, Osteoarthritis (OA), Renal Disease, Respiratory Disorder, Sleep Apnea/CPAP/BIPAP Additional Past Medical History / Comment(s): Pt recently admitted to [facility] on 09/04/20 with acute respiratory failure d/t combination of fluid overload/exace rbation COPD/exacerbation CHF and R side pneumonia. Other hx: Pt tested covid + on 09/25/20 at [facility], IDDM type II, ESRD with dialysis M/W/F, neuropathy bilateral feet/hands, chronic anemia, severe cardiomyopathy/EF 55%, CVA with some R sided weakness, past ETOH abuse, esophageal varicies/nonbleeding, chronic pancreatitis, splenomegaly, chronic thrombocytopenia, MONTSE with Cpap, hx ARDS with correction vent/trach, chronic cervical and back pain, chronic thrombocytopenia, incisional disease on hemodialysis MWF, hypertension, hyperlipidemia, diabetes mellitus type 2, obstructive sleep apnea, COPD, coronary artery disease with previous cardiac catheterization and stenting, recent hospitalization for Covid 19 related pneumonia. History of Any Multi-Drug Resistant Organisms: None Reported Past Surgical History: Appendectomy, Back Surgery, Cholecystectomy, Heart Catheterization, Heart Catheterization With Stent Additional Past Surgical History / Comment(s): Recent cardiac cath, PCI with stents, anterior cervical fusion with plate, R arm dialysis graft, nonfunctioning L upper arm dialysis graft, tracheostomy, colonoscopy. Past Anesthesia/Blood Transfusion Reactions: No Reported Reaction Date of Last Stent Placement:: 2010 Past Psychological History: Anxiety, Depression Additional Psychological History / Comment(s): Pt resides with his spouse and their 2 sons, one of which is a handicapped minor and the other an adult. Pt has a glucometer. He drives. Smoking Status: Former smoker Past Alcohol Use History: None Reported Additional Past Alcohol Use History / Comment(s): Quit smoking 1990, smoked approx 22 yrs 1ppd, no alcohol for over 7 yrs. Past Drug Use History: None Reported - Past Family History Father Family Medical History: Coronary Artery Disease (CAD), Myocardial Infarction (TN) Additional Family Medical History / Comment(s): Father of a TN at the age of 65yrs. Mother Family Medical History: Coronary Artery Disease (CAD), Myocardial Infarction (TN) Additional Family Medical History / Comment(s): Mother of a TN at the age of 55yrs. Brother(s) Family Medical History: Cancer Daughter(s) Family Medical History: Vascular Disorder (VSD) Medications and Allergies Home Medications Medication Instructions Recorded Confirmed Type Atorvastatin Calcium [Lipitor] 80 mg PO HS #30 tab 03/01/14 10/02/20 Rx ALPRAZolam [Xanax] 0.25 mg PO DAILY PRN 06/04/18 10/02/20 History HYDROcodone/APAP 10-325MG [Ismay 1 tab PO Q4H 06/04/18 10/02/20 History 10-325] ARIPiprazole [Abilify] 5 mg PO HS 01/04/19 10/02/20 History Bumetanide [BUMEX] 4 mg PO BID 01/04/19 10/02/20 History Dialyvite 1 tab PO HS 01/04/19 10/02/20 History Insulin Aspart [NovoLOG Flexpen] 20 unit SQ AC-TID 01/04/19 10/02/20 History Omeprazole [PriLOSEC] 20 mg PO DAILY@1500 01/04/19 10/02/20 History Aspirin EC [Ecotrin Low Dose] 81 mg PO HS 09/04/20 10/02/20 History Calcium Acetate [PhosLo] 1,334 mg PO AC-TID PRN 09/04/20 10/02/20 History Carvedilol [Coreg] 12.5 mg PO BID 09/04/20 10/02/20 History Docusate [Colace] 100 mg PO BID PRN 09/04/20 10/02/20 History Isosorbide Mononitrate ER [Imdur] 30 mg PO DAILY 09/04/20 10/02/20 History Morphine Sulfate [Ms Contin] 30 mg PO Q12H 09/04/20 10/02/20 History PARoxetine [Paxil] 20 mg PO HS 09/04/20 10/02/20 History amLODIPine [Norvasc] 5 mg PO HS 09/04/20 10/02/20 History Ascorbic Acid [Vitamin C] 1,000 mg PO DAILY tab 09/29/20 10/02/20 Rx Cholecalciferol [Vitamin D3 (25 75 mcg PO DAILY tablet 09/29/20 10/02/20 Rx Mcg = 1000 Iu)] Levofloxacin [Levaquin] 500 mg PO Q48H 3 Days #3 tab 09/29/20 10/02/20 Rx Zinc Sulfate [Orazinc] 220 mg PO DAILY cap 09/29/20 10/02/20 Rx dexAMETHasone [Hexadrol] 4 mg PO DAILY #5 tab 09/29/20 10/02/20 Rx Ipratropium [place] [Atrovent Hfa] 2 puff INHALATION RT-QID 10/02/20 10/02/20 History Levalbuterol Hfa Inhaler [Xopenex 2 puff INHALATION RT-Q6H 10/02/20 10/02/20 History Hfa Inhaler] Allergies Allergy/AdvReac Type Severity Reaction Status Date / Time No Known Allergies Allergy Verified 10/02/20 10:09 Physical Exam Vitals: Vital Signs Temp Pulse Resp BP Pulse Ox 10/02/20 15:00 129 H 16 115/64 94 L 10/02/20 14:30 107 H 12 113/61 100 10/02/20 14:00 134 H 16 81/63 97 10/02/20 13:00 92 18 90/59 95 10/02/20 12:30 99.0 F 85 21 85/68 94 L 10/02/20 11:45 98.4 F 10/02/20 11:31 99.0 F 10/02/20 11:30 129 H 26 H 117/80 92 L 10/02/20 11:00 118 H 26 H 111/91 94 L 10/02/20 10:50 114 H 30 H 111/91 96 10/02/20 10:20 126 H 35 H 154/89 95 10/02/20 09:42 98 F 133 H 36 H 169/110 92 L Intake and Output 10/02/20 10/02/20 10/02/20 06:59 14:59 22:59 Intake Total 300 Balance 300 Intake: IV 300 Azithromycin 500 mg In 250 Sodium Chloride 0.9% 250 ml @ 250 mls/hr IVPB DAILY [facility] Rx#:[id number] Piperacillin-Tazobactam 3 50 .375 gm In Sodium Chloride 0.9% 100 ml @ 25 mls/hr IVPB Q8H [facility] Rx#: [id number] Other: Voiding Method Urinal Weight 105.3 kg - Constitutional General appearance: cooperative, no acute distress, obese - EENT Eyes: EOMI, PERRLA, dentition normal ENT: NA/AT - Neck Neck: normal ROM - Respiratory Respiratory: bilateral: CTA, diminished, rales, rhonchi, prolonged inspiration, negative: dullness, prolonged expiration - Cardiovascular Rhythm: regular (Tachycardia) Heart sounds: normal: S1 Abnormal Heart Sounds: no systolic murmur, no diastolic murmur, no rub, no S3 Gallop, no S4 Gallop, no click, no other - Gastrointestinal General gastrointestinal: normal bowel sounds, soft - Integumentary Integumentary: normal - Neurologic Neurologic: CNII-XII intact - Musculoskeletal Musculoskeletal: gait normal - Psychiatric Psychiatric: A&O x's 3, appropriate affect Results CBC & Chem 7: 10/02/20 09:57 10/02/20 09:57 Labs: Abnormal Lab Results - Last 24 Hours (Table) 10/02/20 10/02/20 10/02/20 Range/Units 09:57 09:57 09:57 WBC 25.2 H (3.8-10.6) k/uL RBC 3.14 L (4.30-5.90) m/uL Hgb 10.3 L (13.0-17.5) gm/dL Hct 30.4 L (39.0-53.0) % RDW 16.0 H (11.5-15.5) % Neutrophils # 23.1 H (1.3-7.7) k/uL APTT 19.1 L (22.0-30.0) sec Sodium 136 L (137-145) mmol/L Potassium 6.1 H* (3.5-5.1) mmol/L Chloride 94 L (98-107) mmol/L BUN 117 H* (9-20) mg/dL Creatinine 7.32 H* (0.66-1.25) mg/dL Glucose 310 H (74-99) mg/dL POC Glucose (mg/dL) (75-99) mg/dL Calcium 6.8 L (8.4-10.2) mg/dL Total Bilirubin 1.6 H (0.2-1.3) mg/dL Lactate Dehydrogenase 713 H (313-618) U/L C-Reactive Protein 60.5 H (<10.0) mg/L Total Protein 6.1 L (6.3-8.2) g/dL 10/02/20 Range/Units 12:10 WBC (3.8-10.6) k/uL RBC (4.30-5.90) m/uL Hgb (13.0-17.5) gm/dL Hct (39.0-53.0) % RDW (11.5-15.5) % Neutrophils # (1.3-7.7) k/uL APTT (22.0-30.0) sec Sodium (137-145) mmol/L Potassium (3.5-5.1) mmol/L Chloride (98-107) mmol/L BUN (9-20) mg/dL Creatinine (0.66-1.25) mg/dL Glucose (74-99) mg/dL POC Glucose (mg/dL) 331 H (75-99) mg/dL Calcium (8.4-10.2) mg/dL Total Bilirubin (0.2-1.3) mg/dL Lactate Dehydrogenase (313-618) U/L C-Reactive Protein (<10.0) mg/L Total Protein (6.3-8.2) g/dL Assessment and Plan Plan: Assessment #1. Acute hypoxic respiratory failure related to COVID 19 pneumonia bilateral worsening x-rays compared to previous,, rule out possibility of bacterial pneumonia, on Decadron 6 mg along with bronchodilators. BiPAP treatments, Monitor need for possible Remdesivir infusion. Dexamethasone 6 mg every 24 hours per pulmonary, Continue vitamin supplements. Pulmonary consult in place , actemra considered but will have pulmonary decide has hemodyalysis #2. Sepsis, with acute respiratory distress, leukocytosis, tachycardia, hypotension present prior to admission bilateral lower lobe pneumonia, fluid overload, and COPD Covid infection positive on 09/25/2020 did not qualify for them doesn't be secondary to end-stage renal disease hemodialysis iv antibiotic, cautious monitoring, has pulm edema and fluid overload #3. hx of paroxysmal afib, currently sinus tachy. restart corge. not on anticoagu secondary to hemoptyisis, fluctation of platelets thrombocytopenia episode during alst admisssion #4. History of coronary artery disease with catheterization and previous stenting #5 COPD on albuterol #6 elevated d-dimer, patient is to undergo VQ scan, lovenox not applicable secodnary to esrd, start heparin sq 5000 q8h #7. History of CVA on aspirin and statin #8. Diabetes mellitus Accu-Cheks before meals and at bedtime with NovoLog 10 units with meals and sliding scale #9. GERD/reflux on Protonix #10. Hyperlipidemia on Lipitor 80 mg at at bedtime #11. Essential hypertension on Norvasc 5 mg daily along with Coreg 12.5 mg twice a day Bumex 4 mg by mouth twice a day, Imdur 30 by mouth daily #12. End-stage renal disease on Friday hemodialysis, consult with nephrology. #13. Chronic thrombocytopenia, we'll continue to monitor labs currently [id number] #14. Severe depression, on Paxil 20 mg daily #15. Past history of chronic alcoholism with history of chronic pancreatitis #16. GI prophylaxis on Protonix #17. DVT prophylaxis, . #. Obstructive sleep apnea, and most recently patient CPAP machine was broken Patient will be admitted to the hospital for minimum of 2 night stay. Prognosis guarded Sepsis - Sepsis Sepsis Focused Exam #1 Sepsis Focused Exam Date: 10/02/20 Sepsis Focused Exam Time: 16:00
--- NOTE | 2020-10-02 16:33 | XR ---
EXAMINATION TYPE: XR chest 1V portable DATE OF EXAM: 10/02/2020 Comparison: 10/02/2020 Clinical History: 59-year-old male SOB Findings: ACDF hardware. Heart normal size. Bilateral diffuse airspace opacities have become slightly less conf luent from the exam earlier today. No sizable effusion. Impression: Continued bilateral airspace disease, though, slightly less confluent from the exam earlier today.
[2020-10-02] MEDS: ALBUTEROL HFA INHALER INHALATION SCH ×2 (16:44→19:43)
[2020-10-02 16:54] LABS: Glucose,Whole Blood 227 mg/dL (75-99)
[2020-10-02] MEDS: INSULIN ASPART (NovoLOG) 100 UNIT/ML VIAL SQ SCH (18:12)
[2020-10-02] MEDS: ASPIRIN 81 MG PO SCH (19:50)
[2020-10-02] MEDS: BUMETANIDE 1 MG TAB PO SCH (19:50)
[2020-10-02] MEDS: carvediloL 12.5 MG TAB PO SCH (19:50)
[2020-10-02] MEDS: ATORVASTATIN 80 MG TAB PO SCH (19:50)
[2020-10-02] MEDS: PARoxetine 20 MG TAB PO SCH (19:50)
[2020-10-02] MEDS: ARIPiprazole 5 MG TAB PO SCH (19:50)
[2020-10-02] MEDS: PIPERACILLIN-TAZOBACTAM 3.375 GM in SODIUM CHLORIDE 0.9% 100 ML IVPB SCH (19:50)
[2020-10-02] MEDS ORDERED: HEPARIN SODIUM,PORCINE 5,000 UNIT/ML 1 ML VIAL IV PRN (20:44)
[2020-10-02] MEDS ORDERED: HEPARIN SODIUM,PORCINE 5,000 UNIT/ML 1 ML VIAL IV ONE (20:44)
[2020-10-02] MEDS ORDERED: HEPARIN SOD,PORK IN 0.45% NACL 25,000 UNIT in 0.45% NACL 1 250ML.BAG IV SCH (20:45)
[2020-10-02 20:52] LABS: Glucose,Whole Blood 306 mg/dL (75-99)
[2020-10-02] MEDS ORDERED: INSULIN DETEMIR (LEVEMIR) 100 UNIT/ML SYR SQ ONE (21:00)
[2020-10-03] MEDS: ALBUTEROL HFA INHALER INHALATION SCH ×4 (02:02→21:11)
[2020-10-03] MEDS: HYDROcodone/APAP 10-325MG 1 EACH TAB PO SCH ×6 (03:07→20:54)
[2020-10-03] MEDS: MORPHINE SULFATE ER 30 MG TABLET PO SCH ×2 (03:44→12:40)
[2020-10-03] MEDS: PIPERACILLIN-TAZOBACTAM 3.375 GM in SODIUM CHLORIDE 0.9% 100 ML IVPB SCH ×2 (03:44→12:10)
[2020-10-03 03:53] LABS: Basophils % (A) 0 %; Eosinophils % (A) 0 %; Hypochromasia Slight; Lymphocytes # (A) 0.2 k/uL (1.0-4.8); Lymphocytes % (A) 6 %; MCH 33.2 pg (25.0-35.0); MCHC 33.4 g/dL (31.0-37.0); MCV 99.4 fL (80.0-100.0); Macrocytosis Slight; Mean Platelet Volume 9.4; Monocytes # (A) 0.1 k/uL (0-1.0); Monocytes % (A) 3 %; Neutrophils # (A) 3.8 k/uL (1.3-7.7); Neutrophils % (A) 91 %; Poikilocytosis Slight; RBC 2.11 m/uL (4.30-5.90); RDW 15.8 % (11.5-15.5); WBC 4.2 k/uL (3.8-10.6)
[2020-10-03 04:05] LABS: Albumin 3.1 g/dL (3.5-5.0); Calcium 6.9 mg/dL (8.4-10.2); Magnesium 2.2 mg/dL (1.6-2.3); Potassium 5.9 mmol/L (3.5-5.1); Total Bilirubin 1.1 mg/dL (0.2-1.3); Total Protein 5.8 g/dL (6.3-8.2)
[2020-10-03 06:29] LABS: Platelet Count 44 k/uL (150-450)
--- NOTE | 2020-10-03 06:35 | XR ---
EXAMINATION TYPE: XR chest 1V portable DATE OF EXAM: 10/03/2020 CLINICAL HISTORY: Difficulty breathing progress study. TECHNIQUE: Single AP portable upright view of the chest is obtained. COMPARISON: Chest x-ray from one day earlier and older studies. FINDINGS: Bilateral multifocal increased opacities greatest in the bases with slightly elevated left hemidiaphragm on current study. Cardiac silhouette size stable and within normal limits. Anterior fu herminia plate lower cervical spine redemonstrated. IMPRESSION: Bilateral multifocal acute opacities with organizing consolidations in the lung bases con sistent with covid-19 infection. No significant change from most recent x-ray.
[2020-10-03 07:07] LABS: Glucose,Whole Blood 260 mg/dL (75-99)
[2020-10-03] MEDS: INSULIN ASPART (NovoLOG) 100 UNIT/ML VIAL SQ SCH ×3 (07:10→17:04)
[2020-10-03] MEDS: INSULIN DETEMIR (LEVEMIR) 100 UNIT/ML SYR SQ SCH (07:10)
[2020-10-03] MEDS: DILTIAZEM 125 MG in SODIUM CHLORIDE 0.9% 100 ML IV SCH (07:11)
[2020-10-03] MEDS: TIOTROPIUM 2.5 MCG INHALER INHALATION SCH (07:44)
[2020-10-03 07:51] LABS: Anisocytosis Slight; HCT 24.1 % (39.0-53.0); HGB 7.6 gm/dL (13.0-17.5); Hypochromasia Slight; MCH 31.5 pg (25.0-35.0); MCHC 31.5 g/dL (31.0-37.0); MCV 100.2 fL (80.0-100.0); Macrocytosis Slight; Mean Platelet Volume 9.1; Poikilocytosis Slight; RDW 16.5 % (11.5-15.5); WBC 6.2 k/uL (3.8-10.6)
[2020-10-03 07:53] LABS: Platelet Count 56 k/uL (150-450)
[2020-10-03] MEDS: BUMETANIDE 1 MG TAB PO SCH ×2 (07:59→20:53)
[2020-10-03] MEDS: ZINC SULFATE 220 MG CAP PO SCH (08:00)
[2020-10-03] MEDS: CHOLECALCIFEROL 25 MCG (1000 IU) TABLET PO SCH (08:00)
[2020-10-03] MEDS: DEXAMETHASONE SOD PHOSPHATE 10 MG/ML 1 ML VIAL IV SCH (08:00)
[2020-10-03] MEDS: ISOSORBIDE MONONITRATE ER 30 MG TAB.ER.24H PO SCH (08:01)
[2020-10-03] MEDS: AZITHROMYCIN 500 MG in SODIUM CHLORIDE 0.9% 250 ML IVPB SCH (08:01)
[2020-10-03] MEDS: carvediloL 12.5 MG TAB PO SCH ×2 (08:01→20:53)
[2020-10-03] MEDS: ASCORBIC ACID 500 MG TAB PO SCH (08:01)
[2020-10-03] MEDS ORDERED: PANTOPRAZOLE 40 MG/10 ML VIAL IV SCH (09:00)
[2020-10-03] MEDS: DILTIAZEM ORAL 30 MG TAB PO SCH ×3 (09:09→20:54)
--- NOTE | 2020-10-03 10:10 | P.PN ---
Subjective Progress Note Date: 10/03/20 59-year-old male patient came into the emergency department today because of worsening shortness of breath. The patient was in the hospital. He has multiple medical problems and comorbidities. He was diagnosed having coronavirus/Covid 19 related pneumonia approximately a week ago and he was treated on outpatient basis and upon discharge was asked to complete his course of Decadron and he was also given a course of Levaquin on outpatient basis. He has multiple issues including end-stage renal disease and his last hemodialysis was on Friday prior to him being discharged from the hospital. The patient came into the emergency department having worsening shortness of breath and cough and yellow sputum production and he did cough out some blood today. His shortness of breath was getting worse. No chest pain. He was feeling quite fatigued. He had some fever and chills. No major swelling lower extremities or upper extremities. He has and functional AV fistula in the right upper extremity. He was unable to speak long sentences and he was able to state only a few words in the emergency department. His chest x-ray showed diffuse bilateral pulmonary infiltration and his white cell count was at 25.2 and the hemoglobin was 10.3. Potassium level was at 6.1. BUN was 170 with a creatinine of 7.3. Glucose was 310. ProBNP level was 42,000. Bilirubin level was at 1.6. SGOT was 26, SGPT was 34. Alkaline phosphatase was 59. LDH was 713 and the CRP level was 60.5. The patient was placed on a BiPAP at a pressure of 12/5 cm of water and following that the patient got transferred to the intensive care unit. The patient was started on hemodialysis. He did have an echocardiogram during his most recent hospitalization and echocardiac [place] showed a preserved LV function with an ejection fraction of 55% without any significant valvular abnormality. This was done on 09/05/2020. There was moderate concentric LVH. No pericardial effusion. No significant pulmonary hypertension. On 10/03/2020 patient seen in follow-up in the intensive care unit. Patient had a hemodialysis treatment yesterday would removal of 3 L of fluid. He is breathing easier today, he is satting 99% on 5 L, FiO2 was cut back to 3 L, lung sounds are diminished, no rhonchi or rales, occasional cough, sputum sample has not been collected yet, but occasionally the patient does bring up some jasso colored phlegm. Overnight he developed atrial fibrillation with RVR, he does have paroxysmal A. fib history, however has not had A. fib in several months. She was started on Cardizem drip for rate control, currently remains in A. fib with a rate of 85-97 BPM. Blood pressure is stable 94/55. On heparin infusion per cardiology overnight however this morning's labs revealed platelet down to 44,000, 174,000 earlier in the day yesterday, and hemoglobin down to 7 with no obvious signs of bleeding. Abdomen is soft, no hematemesis, no melena, no hematochezia. This morning his blood work reviewed showing platelet count slightly better up to 56,000, hemoglobin is 7.6, white count is down to 6.2, patient remains on combination of antibiotics including azithromycin and Zosyn. Trace pretibial edema is present, renal profile has improved on today's labs, and creatinine down to 5.1, with BUN of 87 Objective - Vital Signs Vital signs: Vital Signs Temp 97.7 F 10/03/20 08:00 Pulse 101 H 10/03/20 08:00 Resp 14 10/03/20 08:00 BP 115/70 10/03/20 09:00 Pulse Ox 94 L 10/03/20 08:00 Intake & Output 10/02/20 10/03/20 10/03/20 18:59 06:59 18:59 Intake Total 430 1178.333 607.368 Output Total 3000 200 Balance -2570 1178.333 407.368 Weight 105.3 kg 101.4 kg Intake: IV 430 360 290 0.9 KVO 80 260 40 Azithromycin 500 mg In 250 250 Sodium Chloride 0.9% 250 ml @ 250 mls/hr IVPB DAILY [facility] Rx#:[id number] Piperacillin-Tazobactam 3 100 100 .375 gm In Sodium Chloride 0.9% 100 ml @ 25 mls/hr IVPB Q8H [facility] Rx#: [id number] Intake, IV Titration 98.333 197.368 Amount Diltiazem 125 mg In 98.333 111 Sodium Chloride 0.9% 100 ml @ 10 MG/HR 10 mls/hr IV .[id number] [facility]ATH[facility] Rx#: [id number] Heparin Sod,Pork in 0.45% 86.368 NaCl 25,000 unit In 0.45 % NaCl 1 250ml.bag @ 9.5 UNITS/KG/HR 10.004 mls/hr IV .Q24H [facility] Rx#: [id number] Oral 720 120 Output: Urine 200 Hemodialysis 3000 Other: Voiding Method Urinal Urinal # Voids 1 # Bowel Movements 1 - Exam GENERAL EXAM: Alert, is in, 59-year-old white male, on it is of oxygen with a pulse ox of 99% comfortable in no apparent distress. HEAD: Normocephalic/atraumatic. EYES: Normal reaction of pupils, equal size. Conjunctiva pink, sclera white. NOSE: Clear with pink turbinates. THROAT: No erythema or exudates. NECK: No masses, no JVD, no thyroid enlargement, no adenopathy. CHEST: No chest wall deformity. Symmetrical expansion. LUNGS: Equal air entry with no crackles, wheeze, rhonchi or dullness. CVS: Irregular rate and rhythm, normal S1 and S2, no gallops, no murmurs, no rubs ABDOMEN: Soft, nontender. No hepatosplenomegaly, normal bowel sounds, no guarding or rigidity. EXTREMITIES: No clubbing, trace pretibial edema, no cyanosis, 2+ pulses and upper and lower extremities. MUSCULOSKELETAL: Muscle strength and tone normal. SPINE: No scoliosis or deformity SKIN: No rashes CENTRAL NERVOUS SYSTEM: Alert and oriented -3. No focal deficits, tone is normal in all 4 extremities. PSYCHIATRIC: Alert and oriented -3. Appropriate affect. Intact judgment and insight. - Labs CBC & Chem 7: 10/03/20 07:24 10/03/20 03:32 Labs: Abnormal Lab Results - Last 24 Hours (Table) 10/02/20 10/02/20 10/02/20 Range/Units 09:57 09:57 09:57 WBC 25.2 H (3.8-10.6) k/uL RBC 3.14 L (4.30-5.90) m/uL Hgb 10.3 L (13.0-17.5) gm/dL Hct 30.4 L (39.0-53.0) % MCV (80.0-100.0) fL RDW 16.0 H (11.5-15.5) % Plt Count (150-450) k/uL Neutrophils # 23.1 H (1.3-7.7) k/uL Lymphocytes # (1.0-4.8) k/uL APTT 19.1 L (22.0-30.0) sec Sodium 136 L (137-145) mmol/L Potassium 6.1 H* (3.5-5.1) mmol/L Chloride 94 L (98-107) mmol/L BUN 117 H* (9-20) mg/dL Creatinine 7.32 H* (0.66-1.25) mg/dL Glucose 310 H (74-99) mg/dL POC Glucose (mg/dL) (75-99) mg/dL Calcium 6.8 L (8.4-10.2) mg/dL Phosphorus (2.5-4.5) mg/dL Ferritin 1742.9 H (22.0-322.0) ng/mL Total Bilirubin 1.6 H (0.2-1.3) mg/dL Lactate Dehydrogenase 713 H (313-618) U/L C-Reactive Protein 60.5 H (<10.0) mg/L Total Protein 6.1 L (6.3-8.2) g/dL Albumin (3.5-5.0) g/dL Procalcitonin (0.02-0.09) ng/mL 10/02/20 10/02/20 10/02/20 Range/Units 09:57 12:10 16:42 WBC (3.8-10.6) k/uL RBC (4.30-5.90) m/uL Hgb (13.0-17.5) gm/dL Hct (39.0-53.0) % MCV (80.0-100.0) fL RDW (11.5-15.5) % Plt Count (150-450) k/uL Neutrophils # (1.3-7.7) k/uL Lymphocytes # (1.0-4.8) k/uL APTT (22.0-30.0) sec Sodium (137-145) mmol/L Potassium (3.5-5.1) mmol/L Chloride (98-107) mmol/L BUN (9-20) mg/dL Creatinine (0.66-1.25) mg/dL Glucose (74-99) mg/dL POC Glucose (mg/dL) 331 H 227 H (75-99) mg/dL Calcium (8.4-10.2) mg/dL Phosphorus (2.5-4.5) mg/dL Ferritin (22.0-322.0) ng/mL Total Bilirubin (0.2-1.3) mg/dL Lactate Dehydrogenase (313-618) U/L C-Reactive Protein (<10.0) mg/L Total Protein (6.3-8.2) g/dL Albumin (3.5-5.0) g/dL Procalcitonin 0.40 H (0.02-0.09) ng/mL 10/02/20 10/03/20 10/03/20 Range/Units 20:50 03:32 03:32 WBC (3.8-10.6) k/uL RBC 2.11 L (4.30-5.90) m/uL Hgb 7.0 L D (13.0-17.5) gm/dL Hct 21.0 L (39.0-53.0) % MCV (80.0-100.0) fL RDW 15.8 H (11.5-15.5) % Plt Count 44 L D (150-450) k/uL Neutrophils # (1.3-7.7) k/uL Lymphocytes # 0.2 L (1.0-4.8) k/uL APTT (22.0-30.0) sec Sodium (137-145) mmol/L Potassium 5.9 H (3.5-5.1) mmol/L Chloride (98-107) mmol/L BUN 87 H (9-20) mg/dL Creatinine 5.11 H (0.66-1.25) mg/dL Glucose 263 H (74-99) mg/dL POC Glucose (mg/dL) 306 H (75-99) mg/dL Calcium 6.9 L (8.4-10.2) mg/dL Phosphorus 8.0 H (2.5-4.5) mg/dL Ferritin (22.0-322.0) ng/mL Total Bilirubin (0.2-1.3) mg/dL Lactate Dehydrogenase (313-618) U/L C-Reactive Protein (<10.0) mg/L Total Protein 5.8 L (6.3-8.2) g/dL Albumin 3.1 L (3.5-5.0) g/dL Procalcitonin (0.02-0.09) ng/mL 10/03/20 10/03/20 10/03/20 Range/Units 03:32 07:05 07:24 WBC (3.8-10.6) k/uL RBC 2.40 L (4.30-5.90) m/uL Hgb 7.6 L (13.0-17.5) gm/dL Hct 24.1 L (39.0-53.0) % MCV 100.2 H (80.0-100.0) fL RDW 16.5 H (11.5-15.5) % Plt Count 56 L (150-450) k/uL Neutrophils # (1.3-7.7) k/uL Lymphocytes # (1.0-4.8) k/uL APTT 49.4 H (22.0-30.0) sec Sodium (137-145) mmol/L Potassium (3.5-5.1) mmol/L Chloride (98-107) mmol/L BUN (9-20) mg/dL Creatinine (0.66-1.25) mg/dL Glucose (74-99) mg/dL POC Glucose (mg/dL) 260 H (75-99) mg/dL Calcium (8.4-10.2) mg/dL Phosphorus (2.5-4.5) mg/dL Ferritin (22.0-322.0) ng/mL Total Bilirubin (0.2-1.3) mg/dL Lactate Dehydrogenase (313-618) U/L C-Reactive Protein (<10.0) mg/L Total Protein (6.3-8.2) g/dL Albumin (3.5-5.0) g/dL Procalcitonin (0.02-0.09) ng/mL Assessment and Plan Plan: Assessment: 1 acute hypoxic respiratory failure on top of chronic respiratory failure and the patient is coming in with diffuse bilateral pulmonary infiltrates. Consider fluid overload that evolved over the past 3 days as the patient is less hemodialysis approximately 3 days ago. Consider superinfection/pneumonia including the possibility of hospital-acquired pneumonia. Unlikely to be related to Covid 19 related pneumonia progression yet cannot be completely ruled out. The patient has dense bilateral pulmonary infiltrates with obvious interval worsening over the past 3 days. 2 atrial fibrillation with RVR, rattly better controlled, remains on Cardizem infusion. Heparin infusion was stopped related to acute decrease in platelet count and anemia without signs of bleeding 3 history of paroxysmal atrial fibrillation 4 acute thrombocytopenia after initiation of heparin infusion from 144,000 down to 44,000 and a drop in hemoglobin without obvious signs of bleeding, globin is 7.9 on today's labs 5 acute leukocytosis, improved 6 recent hospitalization for COVID 19 related pneumonia 7 history of hemoptysis 8 coronary artery disease with previous cardiac catheterization and stenting 9 COPD 10 obstructive sleep apnea, not utilizing any form of sleep machine on outpatient basis 11 previous history of CVA with right-sided weakness 12 diabetes mellitus type 2 13 hyperlipidemia 14 hypertension 15 and stage renal disease on hemodialysis MWF 16 chronic thrombocytopenia improved on today's blood work 17 depression 18 history of alcoholism with secondary chronic pancreatitis and previous history of portal hypertension and esophageal varices 19 History of prolonged ventilator dependent respiratory failure due to ARDS requiring tracheostomy tube insertion and subsequent removal 20 anemia of chronic disease Plan: Recommend another hemodialysis treatment, patient is breathing easier, FiO2 is down to 3 L, continue current antibiotics, send a sputum culture, vital signs have been stable, he is in A. fib with a controlled rate, rate control medications per cardiology, heparin drip has been discontinued in view of low platelet count and low hemoglobin, no obvious signs of bleeding, we'll continue to monitor in the intensive care unit. I performed a history & physical examination of the patient and discussed their management with my nurse practitioner, Yumiko Matta. I reviewed the nurse practitioner's note and agree with the documented findings and plan of care. Lung sounds are positive for clear breath sounds. The findings and the impression was discussed with the patient. I attest to the documentation by the nurse practitioner.
--- NOTE | 2020-10-03 10:30 | CONS ---
CONSULTATION CHIEF COMPLAINT: Atrial fibrillation. Ismael is a 59-year-old gentleman who was admitted to hospital with shortness of breath, worsening dyspnea and was in atrial fibrillation with rapid ventricular rate. The patient was started on IV heparin following which his hemoglobin dropped as did the platelet count and currently the heparin is on hold. The patient has history of recent COVID infection has a COVID pneumonia and also had cytokine storm. I did not do any physical exam on this patient. Upon my evaluation, patient appears somewhat sleepy. He remains in atrial fibrillation with a better controlled ventricular rate. He is on intravenous Cardizem which I am going to taper and stop and start him on oral Cardizem and he is also on a beta tammy. He is not a candidate for anticoagulation because of bleeding related concerns. PAST MEDICAL HISTORY: Significant for COPD, congestive heart failure, CAD and dyslipidemia. CURRENT MEDICATIONS: Current medications include Xopenex, Atrovent, dexamethasone, Norvasc, Paxil, Prilosec, MS Contin, Levaquin, Imdur, [place], Colace, Coreg, PhosLo, Bumex, Lipitor, Abilify, and Xanax. ALLERGIES: No known drug allergies. FAMILY HISTORY: Negative for premature coronary artery disease. SOCIAL HISTORY: Negative for smoking, EtOH abuse, or drug abuse. REVIEW OF SYSTEMS: HEENT is unremarkable. CARDIAC: As described above. RESPIRATORY: As described above. GI: Negative. GENITOURINARY: Negative. PHYSICAL EXAMINATION: On exam, heart rate is 90 beats per minute, irregular. Blood pressure is 110/67, respiratory rate is 16, O2 saturation is 93%. LABS: His labs show that the hemoglobin is 7.6, platelet count is 56, BUN is 87, creatinine is 5.1 potassium is elevated at 5.9. ASSESSMENT: 1. Persistent atrial fibrillation with poorly controlled ventricular rate. 2. Anemia and thrombocytopenia with heparin, not a candidate for anticoagulation. 3. COVID pneumonia with renal failure. PLAN: I will control patient's heart rate with beta blockers and calcium channel blockers. No other cardiac workup at this time. The patient had an echo in August when he was admitted with COVID and had normal LV function with an ejection fraction of 55%. MMODL / IJN: [id number] /
[2020-10-03 12:03] LABS: Glucose,Whole Blood 291 mg/dL (75-99)
--- NOTE | 2020-10-03 14:38 | P.PN ---
Subjective Progress Note Date: 10/03/20 HISTORY OF PRESENT ILLNESS This is a pleasant 59-year-old gentleman patient of Dr. Raza. He has underlying history of COPD chronic diastolic CHF and facial disease on hemodia lysis, diabetes type 2, hypertension, hyperlipidemia chronic pain, who was originally hospitalized September 04 to September 07 for hypoxemic respiratory failure and right lower lobe pneumonia secondary to CHF and COPD exacerbation. He was covered at that time. He comes back on September 25, for shortness of breath, and now diagnosed to have covered positive pneumonia left-sided. He presented with cytokine storm as well during that admission. His treatment at that time include Decadron 6 mg every 12 hours, followed by Dr. Wharton, also had atrial fibrillation, paroxysmal, for which anticoagulation has been held secondary to hemoptysis. he did not receive remdesivir during that that admission secondary to hemodialysis, end-stage renal failure, he was not hypoxemic at that time. He did not receive prominent bamlanivimab infusion either. She was discharged on dexamethasone 4 mg daily 5 days, Levaquin 500 milligrams 3 days every 48 hours, levalbuterol inhaler zinc and vitamin C. his last hemodialysis was approximately less than 3 days ago, He now comes in to emergency room with significant shortness of breath, this worsening dyspnea hypoxemia, required BiPAP treatment in the emergency room and is now transferred to ICU. [facility] with [facility], O2 supplementation, IV antibiotics, chest x-ray emergency room shows worsening interval of the bilateral pulmonary infiltrates, also with bilateral pulmonary edema, IV antibiotics Zosyn, IV dexamethasone 6 mg every 6 hours, bronchodilators, consult with Dr. Garcia nephrology. Head admitting temperature was 99, heart rate 85-134, systolic blood pressure 85/68, current trend of 115/64, pulse ox 94% on BiPAP, 50% FiO2 2/9: Patient remains in intensive care unit. He developed A. fib with RVR and started on Cardizem drip currently controlled. Repeat chest x-ray reveals bilateral multifocal acute opacities with organizing consolidations in the lung bases consistent with covert 19 infection. No significant change. Patient has been seen by cardiology for persistent atrial fibrillation with poorly controlled rate. Plan is to continue beta tammy and calcium channel tammy. No further cardiac workup is planned. Patient is followed by pulmonary medicine. Patient's breathing is slightly improved from yesterday. CBC 6.2, hemoglobin 7.6, platelet count 56. Sodium 136, potassium 5.9, BUN 87 creatinine 5.11. Blood sugar 263. Blood cultures no growth at 24 hours. She complains of insomnia and melatonin added. REVIEW OF SYSTEMS Constitutional: No fever, no chills, no night sweats. No weight change. No weakness, reports fatigue or lethargy. Reports daytime sleepiness. EENT: No headache. No blurred vision or double vision, no loss of vision. No loss of Hearing, no ringing in the ears, no dizziness. No nasal drainage or congestion. No epistaxis. No sore throat. Lungs: Reports shortness of breath, reports cough, no sputum production. No wheezing. Cardiovascular: No chest pain, no lower extremity edema. No palpitations. No paroxysmal nocturnal dyspnea. No orthopnea. No lightheadedness or dizziness. No syncopal episodes. Abdominal: No abdominal pain. No nausea, vomiting. No diarrhea. No constipation. No bloody or tarry stools.. No loss of appetite. Genitourinary: No dysuria, increased frequency, urgency. No urinary retention. Musculoskeletal: No myalgias. No muscle weakness, no gait dysfunction, no frequent falls. No back pain. No neck pain. Integumentary: No wounds, no lesions. No rash or pruritus. No unusual bruis ing. No change in hair or nails. Neurologic: No aphasia. No facial droop. No change in mentation. No head injury. No headache. No paralysis. No paresthesia. Psychiatric: No depression. No anxiety. No mood swings. Endocrine: No abnormal blood sugars. No weight change. No excessive sweating or thirst. No cold intolerance. PHYSICAL EXAMINATION Gen: This is a 59-year-old male. He is resting in ICU bed and appears to be comfortable at rest. HEENT: Head is atraumatic, normocephalic. Pupils equal, round. Sclerae is anicteric. NECK: Supple. No JVD. No lymphadenopathy. No thyromegaly. LUNGS: Clear to auscultation. No wheezes or rhonchi. No intercostal retractions. HEART: Irregular rate and rhythm. No murmur. ABDOMEN: Soft. Bowel sounds are present. No masses. No tenderness. EXTREMITIES: No pedal edema. No calf tenderness. NEUROLOGICAL: Patient is awake, alert and oriented x3. Cranial nerves 2 through 12 are grossly intact. ASSESSMENT AND PLAN #1. Acute hypoxic respiratory failure related to COVID 19 pneumonia bilateral worsening x-rays compared to previous,, rule out possibility of bacterial pneumonia, on Decadron 6 mg along with bronchodilators. BiPAP treatments, Monitor need for possible Remdesivir infusion. Dexamethasone 6 mg every 24 hours per pulmonary, Continue vitamin supplements. Pulmonary consult appreciated. #2. Sepsis, with acute respiratory distress, leukocytosis, tachycardia, hypotension present prior to admission bilateral lower lobe pneumonia, fluid overload, and COPD Covid infection positive on 09/25/2020 did not qualify for them doesn't be secondary to end-stage renal disease hemodialysis iv antibi otic, cautious monitoring, has pulm edema and fluid overload #3. hx of paroxysmal afib, currently controlled. restart corge. not on anticoagu secondary to hemoptyisis, fluctation of platelets thrombocytopenia episode during alst admisssion #4. History of coronary artery disease with catheterization and previous stenting #5 COPD on albuterol #6 elevated d-dimer, patient is to undergo VQ scan, lovenox not applicable secodnary to esrd, start heparin sq 5000 q8h #7. History of CVA on aspirin and statin #8. Diabetes mellitus Accu-Cheks before meals and at bedtime with NovoLog 10 units with meals and sliding scale #9. GERD/reflux on Protonix #10. Hyperlipidemia on Lipitor 80 mg at at bedtime #11. Essential hypertension on Norvasc 5 mg daily along with Coreg 12.5 mg twice a day Bumex 4 mg by mouth twice a day, Imdur 30 by mouth daily #12. End-stage renal disease on Friday hemodialysis, consult with nephrology. #13. Chronic thrombocytopenia, we'll continue to monitor labs currently [id number] #14. Severe depression, on Paxil 20 mg daily #15. Past history of chronic alcoholism with history of chronic pancreatitis #16. GI prophylaxis on Protonix #17. DVT prophylaxis. #18. Obstructive sleep apnea, and most recently patient CPAP machine was broken DISCHARGE PLAN Most likely return home. Impression and plan of care have been directed as dictated by the signing physician. Iram Love nurse practitioner acting as scribe for signing physician. Objective - Vital Signs Vital signs: Vital Signs Temp 97.7 F 10/03/20 08:00 Pulse 101 H 10/03/20 08:00 Resp 14 10/03/20 08:00 BP 115/70 10/03/20 09:00 Pulse Ox 94 L 10/03/20 08:00 Intake & Output 10/02/20 10/03/20 10/03/20 18:59 06:59 18:59 Intake Total 430 1178.333 607.368 Output Total 3000 200 Balance -2570 1178.333 407.368 Weight 105.3 kg 101.4 kg Intake: IV 430 360 290 0.9 KVO 80 260 40 Azithromycin 500 mg In 250 250 Sodium Chloride 0.9% 250 ml @ 250 mls/hr IVPB DAILY NATHAN Rx#:[id number] Piperacillin-Tazobactam 3 100 100 .375 gm In Sodium Chloride 0.9% 100 ml @ 25 mls/hr IVPB Q8H NATH[facility] Rx#: [id number] Intake, IV Titration 98.333 197.368 Amount Diltiazem 125 mg In 98.333 111 Sodium Chloride 0.9% 100 ml @ 10 MG/HR 10 mls/hr IV .[id number] NATH[facility] Rx#: [id number] Heparin Sod,Pork in 0.45% 86.368 NaCl 25,000 unit In 0.45 % NaCl 1 250ml.bag @ 9.5 UNITS/KG/HR 10.004 mls/hr IV .Q24H NATHAN Rx#: [id number] Oral 720 120 Output: Urine 200 Hemodialysis 3000 Other: Voiding Method Urinal Urinal # Voids 1 # Bowel Movements 1 - Labs CBC & Chem 7: 10/03/20 07:24 10/03/20 03:32 Labs: Abnormal Lab Results - Last 24 Hours (Table) 10/02/20 10/02/20 10/02/20 Range/Units 09:57 09:57 09:57 WBC 25.2 H (3.8-10.6) k/uL RBC 3.14 L (4.30-5.90) m/uL Hgb 10.3 L (13.0-17.5) gm/dL Hct 30.4 L (39.0-53.0) % MCV (80.0-100.0) fL RDW 16.0 H (11.5-15.5) % Plt Count (150-450) k/uL Neutrophils # 23.1 H (1.3-7.7) k/uL Lymphocytes # (1.0-4.8) k/uL APTT 19.1 L (22.0-30.0) sec Sodium 136 L (137-145) mmol/L Potassium 6.1 H* (3.5-5.1) mmol/L Chloride 94 L (98-107) mmol/L BUN 117 H* (9-20) mg/dL Creatinine 7.32 H* (0.66-1.25) mg/dL Glucose 310 H (74-99) mg/dL POC Glucose (mg/dL) (75-99) mg/dL Calcium 6.8 L (8.4-10.2) mg/dL Phosphorus (2.5-4.5) mg/dL Ferritin 1742.9 H (22.0-322.0) ng/mL Total Bilirubin 1.6 H (0.2-1.3) mg/dL Lactate Dehydrogenase 713 H (313-618) U/L C-Reactive Protein 60.5 H (<10.0) mg/L Total Protein 6.1 L (6.3-8.2) g/dL Albumin (3.5-5.0) g/dL Procalcitonin (0.02-0.09) ng/mL 10/02/20 10/02/20 10/02/20 Range/Units 09:57 12:10 16:42 WBC (3.8-10.6) k/uL RBC (4.30-5.90) m/uL Hgb (13.0-17.5) gm/dL Hct (39.0-53.0) % MCV (80.0-100.0) fL RDW (11.5-15.5) % Plt Count (150-450) k/uL Neutrophils # (1.3-7.7) k/uL Lymphocytes # (1.0-4.8) k/uL APTT (22.0-30.0) sec Sodium (137-145) mmol/L Potassium (3.5-5.1) mmol/L Chloride (98-107) mmol/L BUN (9-20) mg/dL Creatinine (0.66-1.25) mg/dL Glucose (74-99) mg/dL POC Glucose (mg/dL) 331 H 227 H (75-99) mg/dL Calcium (8.4-10.2) mg/dL Phosphorus (2.5-4.5) mg/dL Ferritin (22.0-322.0) ng/mL Total Bilirubin (0.2-1.3) mg/dL Lactate Dehydrogenase (313-618) U/L C-Reactive Protein (<10.0) mg/L Total Protein (6.3-8.2) g/dL Albumin (3.5-5.0) g/dL Procalcitonin 0.40 H (0.02-0.09) ng/mL 10/02/20 10/03/20 10/03/20 Range/Units 20:50 03:32 03:32 WBC (3.8-10.6) k/uL RBC 2.11 L (4.30-5.90) m/uL Hgb 7.0 L D (13.0-17.5) gm/dL Hct 21.0 L (39.0-53.0) % MCV (80.0-100.0) fL RDW 15.8 H (11.5-15.5) % Plt Count 44 L D (150-450) k/uL Neutrophils # (1.3-7.7) k/uL Lymphocytes # 0.2 L (1.0-4.8) k/uL APTT (22.0-30.0) sec Sodium (137-145) mmol/L Potassium 5.9 H (3.5-5.1) mmol/L Chloride (98-107) mmol/L BUN 87 H (9-20) mg/dL Creatinine 5.11 H (0.66-1.25) mg/dL Glucose 263 H (74-99) mg/dL POC Glucose (mg/dL) 306 H (75-99) mg/dL Calcium 6.9 L (8.4-10.2) mg/dL Phosphorus 8.0 H (2.5-4.5) mg/dL Ferritin (22.0-322.0) ng/mL Total Bilirubin (0.2-1.3) mg/dL Lactate Dehydrogenase (313-618) U/L C-Reactive Protein (<10.0) mg/L Total Protein 5.8 L (6.3-8.2) g/dL Albumin 3.1 L (3.5-5.0) g/dL Procalcitonin (0.02-0.09) ng/mL 10/03/20 10/03/20 10/03/20 Range/Units 03:32 07:05 07:24 WBC (3.8-10.6) k/uL RBC 2.40 L (4.30-5.90) m/uL Hgb 7.6 L (13.0-17.5) gm/dL Hct 24.1 L (39.0-53.0) % MCV 100.2 H (80.0-100.0) fL RDW 16.5 H (11.5-15.5) % Plt Count 56 L (150-450) k/uL Neutrophils # (1.3-7.7) k/uL Lymphocytes # (1.0-4.8) k/uL APTT 49.4 H (22.0-30.0) sec Sodium (137-145) mmol/L Potassium (3.5-5.1) mmol/L Chloride (98-107) mmol/L BUN (9-20) mg/dL Creatinine (0.66-1.25) mg/dL Glucose (74-99) mg/dL POC Glucose (mg/dL) 260 H (75-99) mg/dL Calcium (8.4-10.2) mg/dL Phosphorus (2.5-4.5) mg/dL Ferritin (22.0-322.0) ng/mL Total Bilirubin (0.2-1.3) mg/dL Lactate Dehydrogenase (313-618) U/L C-Reactive Protein (<10.0) mg/L Total Protein (6.3-8.2) g/dL Albumin (3.5-5.0) g/dL Procalcitonin (0.02-0.09) ng/mL
[2020-10-03] MEDS: PANTOPRAZOLE 40 MG TABLET PO SCH (15:32)
[2020-10-03 16:51] LABS: Glucose,Whole Blood 186 mg/dL (75-99)
--- NOTE | 2020-10-03 16:56 | CONS ---
CONSULTATION REASON FOR CONSULT: End-stage renal disease. HISTORY OF PRESENT ILLNESS: Patient is a 59-year-old male with end-stage renal disease, on hemodialysis on a Friday, Friday, Friday schedule. Patient was admitted to the hospital with complaints of increased fatigue, not feeling well, some shortness of breath as well. He was recently tested positive for coronavirus on 09/25/2020, following which he was discharged. There are no complaints of diarrhea, nausea or vomiting. Yesterday potassium was elevated at 6.1. Patient was dialyzed and this morning his potassium is again high at 5.9. According to nursing staff, patient has been drinking a lot of diet Coke. His blood sugars have also been elevated, with blood sugar of 260 and 291. Currently patient is maintained on oxygen via nasal cannula. His oxygen saturations are about 98% to 96%. He is fairly comfortable. Chest x-ray shows bilateral infiltrates. We had about 3 L of fluid removed with dialysis yesterday. PAST MEDICAL HISTORY: End-stage renal disease, anemia of chronic disease, hypertension, recent COVID infection, CKD mineral bone disorder, COPD, coronary artery disease, gastroesophageal reflux disease, history of CVA/TIA, osteoarthritis, hyperlipidemia, previous history of pneumonia, type 2 diabetes, cardiomyopathy, diastolic dysfunction, EF 55%, history of EtOH abuse, history of esophageal varices, history of chronic thrombocytopenia with splenomegaly, previous history of pancreatitis. PAST SURGICAL HISTORY: Appendectomy, back surgery, cholecystectomy, cardiac catheterization, coronary stent placement, AV fistula, history of colonoscopy, tracheostomy. MEDICATIONS: Medications prior to admission included Lipitor, Xanax, Abilify, Bumex, Dialyvite, Prilosec, aspirin, PhosLo, Coreg, Colace, Imdur, morphine, Paxil, Norvasc, vitamin C, vitamin D, Levaquin, Hexadrol. Patient also uses inhalers at home. ALLERGIES: NONE. REVIEW OF SYSTEMS: As per HPI. Other systems negative. PHYSICAL EXAMINATION: Patient is comfortable, awake. He is not in any acute distress. Blood pressure was 104/75, heart rate 68 per minute. Patient is afebrile. Examination of lower extremities shows trace edema bilaterally. [employer] exam is grossly intact. Abdomen is soft, nontender. Lungs and heart are not examined. Labs show hemoglobin 7.6 sodium 138, potassium 5.9, chloride 99, BUN 87, creatinine 5.1, albumin 3.1. ASSESSMENT: 1. End-stage renal disease, on hemodialysis on a Friday, Friday, Friday schedule, status post dialysis yesterday. Patient will be dialyzed again today for fluid removal as well as for hyperkalemia. 2. Hyperkalemia associated with end-stage renal disease and exacerbated by ongoing hyperglycemia and increased intake. 3. Volume overload. 4. COVID pneumonia, maintained on steroids, being followed by Pulmonary. 5. Pneumonia, COVID versus other organism, maintained on empiric antibiotics as well. 6. Secondary hyperparathyroidism and chronic kidney disease mineral bone disorder, maintained on PhosLo. 7. Acute hypoxic respiratory failure secondary to pneumonia and volume overload. Currently off of BiPAP. 8. Anemia of chronic disease. No active bleeding noted. Hemoglobin has been staying around 7 g/dL recently. Patient has seen Hematology previously. 9. Chronic thrombocytopenia associated with hypersplenism and history of EtOH abuse. PLAN: Control blood sugars. Repeat hemodialysis today. Patient will be dialyzed again tomorrow, which is his regular day. Patient is advised regarding fluid restriction as well as decrease intake of potassium foods, including soft drinks. Repeat labs in a.m. MMODL / IJN: [id number] /
[2020-10-03] MEDS: ASPIRIN 81 MG PO SCH (20:52)
[2020-10-03] MEDS: ATORVASTATIN 80 MG TAB PO SCH (20:53)
[2020-10-03] MEDS: ARIPiprazole 5 MG TAB PO SCH (20:53)
[2020-10-03] MEDS: PARoxetine 20 MG TAB PO SCH (20:53)
[2020-10-04] MEDS ORDERED: PIPERACILLIN-TAZOBACTAM 3.375 GM in SODIUM CHLORIDE 0.9% 100 ML IVPB SCH ×2
[2020-10-04] MEDS: HYDROcodone/APAP 10-325MG 1 EACH TAB PO SCH ×6 (00:35→21:45)
[2020-10-04] MEDS: MORPHINE SULFATE ER 30 MG TABLET PO SCH ×2 (00:36→12:34)
[2020-10-04] MEDS: ALBUTEROL HFA INHALER INHALATION SCH ×4 (00:53→20:46)
[2020-10-04 04:02] LABS: HCT 20.1 % (39.0-53.0); Hypochromasia Slight; MCH 33.5 pg (25.0-35.0); MCHC 33.4 g/dL (31.0-37.0); MCV 100.3 fL (80.0-100.0); Macrocytosis Slight; Mean Platelet Volume 9.4; Poikilocytosis Slight; RBC 2.01 m/uL (4.30-5.90); RDW 15.8 % (11.5-15.5)
[2020-10-04 04:05] LABS: HGB 6.7 gm/dL (13.0-17.5)
[2020-10-04 04:12] LABS: Platelet Count 35 k/uL (150-450)
[2020-10-04 04:24] LABS: Calcium 6.7 mg/dL (8.4-10.2); Potassium 5.2 mmol/L (3.5-5.1)
[2020-10-04 07:04] LABS: Glucose,Whole Blood 188 mg/dL (75-99)
[2020-10-04] MEDS: INSULIN ASPART (NovoLOG) 100 UNIT/ML VIAL SQ SCH ×3 (07:36→16:39)
[2020-10-04] MEDS: INSULIN DETEMIR (LEVEMIR) 100 UNIT/ML SYR SQ SCH (07:36)
--- NOTE | 2020-10-04 07:47 | XR ---
EXAMINATION TYPE: XR chest 1V portable DATE OF EXAM: 10/04/2020 Comparison: 10/03/2020 Clinical History: 59-year-old male fluid overload Findings: Low lung volumes. ACDF hardware. Heart upper limits of normal in size. Patchy perihilar and bilateral airspace opacities persist without significant change. Impression: Patchy bilateral airspace disease/pulmonary edema persists. Hypoventilatory changes.
[2020-10-04] MEDS: TIOTROPIUM 2.5 MCG INHALER INHALATION SCH (08:21)
[2020-10-04] MEDS: DILTIAZEM ORAL 30 MG TAB PO SCH ×3 (09:25→21:45)
[2020-10-04] MEDS: BUMETANIDE 1 MG TAB PO SCH ×2 (09:25→21:44)
[2020-10-04] MEDS: ZINC SULFATE 220 MG CAP PO SCH (09:25)
[2020-10-04] MEDS: ISOSORBIDE MONONITRATE ER 30 MG TAB.ER.24H PO SCH (09:25)
[2020-10-04] MEDS: CHOLECALCIFEROL 25 MCG (1000 IU) TABLET PO SCH (09:25)
[2020-10-04] MEDS: carvediloL 12.5 MG TAB PO SCH ×2 (09:26→21:45)
[2020-10-04] MEDS: AZITHROMYCIN 500 MG in SODIUM CHLORIDE 0.9% 250 ML IVPB SCH (09:26)
[2020-10-04] MEDS: ASCORBIC ACID 500 MG TAB PO SCH (09:26)
[2020-10-04] MEDS: DEXAMETHASONE SOD PHOSPHATE 10 MG/ML 1 ML VIAL IV SCH (09:26)
[2020-10-04] MEDS: CALCIUM ACETATE 667 MG TAB PO SCH ×3 (09:26→16:39)
--- NOTE | 2020-10-04 10:12 | P.PN ---
Subjective Progress Note Date: 10/04/20 59-year-old male patient came into the emergency department today because of worsening shortness of breath. The patient was in the hospital. He has multiple medical problems and comorbidities. He was diagnosed having coronavirus/Covid 19 related pneumonia approximately a week ago and he was treated on outpatient basis and upon discharge was asked to complete his course of Decadron and he was also given a course of Levaquin on outpatient basis. He has multiple issues including end-stage renal disease and his last hemodialysis was on Friday prior to him being discharged from the hospital. The patient came into the emergency department having worsening shortness of breath and cough and yellow sputum production and he did cough out some blood today. His shortness of breath was getting worse. No chest pain. He was feeling quite fatigued. He had some fever and chills. No major swelling lower extremities or upper extremities. He has and functional AV fistula in the right upper extremity. He was unable to speak long sentences and he was able to state only a few words in the emergency department. His chest x-ray showed diffuse bilateral pulmonary infiltration and his white cell count was at 25.2 and the hemoglobin was 10.3. Potassium level was at 6.1. BUN was 170 with a creatinine of 7.3. Glucose was 310. ProBNP level was 42,000. Bilirubin level was at 1.6. SGOT was 26, SGPT was 34. Alkaline phosphatase was 59. LDH was 713 and the CRP level was 60.5. The patient was placed on a BiPAP at a pressure of 12/5 cm of water and following that the patient got transferred to the intensive care unit. The patient was started on hemodialysis. He did have an echocardiogram during his most recent hospitalization and echocardiac Paxton showed a preserved LV function with an ejection fraction of 55% without any significant valvular abnormality. This was done on 09/05/2020. There was moderate concentric LVH. No pericardial effusion. No significant pulmonary hypertension. On 10/03/2020 patient seen in follow-up in the intensive care unit. Patient had a hemodialysis treatment yesterday would removal of 3 L of fluid. He is breathing easier today, he is satting 99% on 5 L, FiO2 was cut back to 3 L, lung sounds are diminished, no rhonchi or rales, occasional cough, sputum sample has not been collected yet, but occasionally the patient does bring up some jasso colored phlegm. Overnight he developed atrial fibrillation with RVR, he does have paroxysmal A. fib history, however has not had A. fib in several months. She was started on Cardizem drip for rate control, currently remains in A. fib with a rate of 85-97 BPM. Blood pressure is stable 94/55. On heparin infusion per cardiology overnight however this morning's labs revealed platelet down to 44,000, 174,000 earlier in the day yesterday, and hemoglobin down to 7 with no obvious signs of bleeding. Abdomen is soft, no hematemesis, no melena, no hematochezia. This morning his blood work reviewed showing platelet count slightly better up to 56,000, hemoglobin is 7.6, white count is down to 6.2, patient remains on combination of antibiotics including azithromycin and Zosyn. Trace pretibial edema is present, renal profile has improved on today's labs, and creatinine down to 5.1, with BUN of 87 On 10/04/2020 patient seen in follow-up in intensive care unit. He is awake and alert, in no acute distress, he is on 3 L of oxygen pulse ox is 96%, his been afebrile, he is in atrial fibrillation, and his rate at times is so tachycardic up to 110 to 1:30 BPM, most that time she is at 90-100 bpm, heparin drip continues to be on hold, in view of acute drop in his platelet count and hemoglobin. Continues to have hemoptysis, he is bringing up some dark-colored sputum with old blood in it, no hematemesis, no dark or bloody stools. Blood pressure is stable, not requiring any vasopressor support, patient had hemodialysis yesterday with removal of 2.5 L of fluid, and had hemodialysis the day before would removal of 3 L of fluid, his lower extremity edema is improving, he is breathing easier, this chest x-ray has been reviewed showing patchy bilateral airspace disease/pulmonary edema and hypoventilatory changes. Patient has had no fever since admission, he is on azithromycin and Zosyn for an tibiotic coverage, sputum cultures have been sent, and are pending at this time. Labs have been reviewed, hemoglobin is down to 6.7, white blood cell count was 5.0, his platelet count is 35,000, sodium is 136, potassium is 5.2, B1 is 75, creatinine is 4.52. Fluid restriction as he was drinking excessive amount of fluids including soda according to the nursing staff, is fairly comfortable right now, no altered mentation, answering questions appropriately, does not appear to be in any respiratory distress Objective - Vital Signs Vital signs: Vital Signs Temp 97.7 F 10/04/20 08:00 Pulse 101 H 10/04/20 09:00 Resp 11 L 10/04/20 09:00 BP 109/78 10/04/20 09:00 Pulse Ox 96 10/04/20 09:00 Intake & Output 10/03/20 10/04/20 10/04/20 18:59 06:59 18:59 Intake Total 1007.368 320 360 Output Total 2700 0 0 Balance -1692.632 320 360 Weight 99.8 kg Intake: IV 470 100 0.9 KVO 120 Azithromycin 500 mg In 250 Sodium Chloride 0.9% 250 ml @ 250 mls/hr IVPB DAILY NATHAN Rx#:[id number] Piperacillin-Tazobactam 3 100 100 .375 gm In Sodium Chloride 0.9% 100 ml @ 25 mls/hr IVPB Q8H NATHAN Rx#: [id number] Intake, IV Titration 197.368 Amount Diltiazem 125 mg In 111 Sodium Chloride 0.9% 100 ml @ 10 MG/HR 10 mls/hr IV .[id number] NATHAN Rx#: [id number] Heparin Sod,Pork in 0.45% 86.368 NaCl 25,000 unit In 0.45 % NaCl 1 250ml.bag @ 9.5 UNITS/KG/HR 10.004 mls/hr IV .Q24H NATHAN Rx#: [id number] Oral 340 220 360 Output: Urine 200 0 0 Hemodialysis 2500 Other: Voiding Method Urinal Urinal # Voids 1 # Bowel Movements 1 - Exam GENERAL EXAM: Alert, is in, 59-year-old white male, on 3 l/min of oxygen with a pulse ox of 99% comfortable in no apparent distress. HEAD: Normocephalic/atraumatic. EYES: Normal reaction of pupils, equal size. Conjunctiva pink, sclera white. NOSE: Clear with pink turbinates. THROAT: No erythema or exudates. NECK: No masses, no JVD, no thyroid enlargement, no adenopathy. CHEST: No chest wall deformity. Symmetrical expansion. LUNGS: Equal air entry with no crackles, wheeze, rhonchi or dullness. CVS: Irregular rate and rhythm, normal S1 and S2, no gallops, no murmurs, no rubs. Currently tachycardic with a rate of between 110 to 130 BPM ABDOMEN: Soft, nontender. No hepatosplenomegaly, normal bowel sounds, no guarding or rigidity. EXTREMITIES: No clubbing, trace pretibial edema, no cyanosis, 2+ pulses and upper and lower extremities. MUSCULOSKELETAL: Muscle strength and tone normal. SPINE: No scoliosis or deformity SKIN: No rashes CENTRAL NERVOUS SYSTEM: Alert and oriented -3. No focal deficits, tone is normal in all 4 extremities. PSYCHIATRIC: Alert and oriented -3. Appropriate affect. Intact judgment and insight. - Labs CBC & Chem 7: 10/04/20 03:32 10/04/20 03:32 Labs: Abnormal Lab Results - Last 24 Hours (Table) 10/03/20 10/03/20 10/03/20 Range/Units 07:24 12:02 16:49 RBC (4.30-5.90) m/uL Hgb (13.0-17.5) gm/dL Hct (39.0-53.0) % MCV (80.0-100.0) fL RDW (11.5-15.5) % Plt Count (150-450) k/uL APTT (22.0-30.0) sec Sodium (137-145) mmol/L Potassium (3.5-5.1) mmol/L BUN (9-20) mg/dL Creatinine (0.66-1.25) mg/dL Glucose (74-99) mg/dL POC Glucose (mg/dL) 291 H 186 H (75-99) mg/dL Calcium (8.4-10.2) mg/dL Phosphorus (2.5-4.5) mg/dL Crossmatch See Detail 10/04/20 10/04/20 10/04/20 Range/Units 03:32 03:32 03:32 RBC 2.01 L (4.30-5.90) m/uL Hgb 6.7 L* (13.0-17.5) gm/dL Hct 20.1 L (39.0-53.0) % MCV 100.3 H (80.0-100.0) fL RDW 15.8 H (11.5-15.5) % Plt Count 35 L (150-450) k/uL APTT 21.4 L (22.0-30.0) sec Sodium 136 L (137-145) mmol/L Potassium 5.2 H (3.5-5.1) mmol/L BUN 75 H (9-20) mg/dL Creatinine 4.52 H (0.66-1.25) mg/dL Glucose 159 H (74-99) mg/dL POC Glucose (mg/dL) (75-99) mg/dL Calcium 6.7 L (8.4-10.2) mg/dL Phosphorus (2.5-4.5) mg/dL Crossmatch 10/04/20 10/04/20 Range/Units 03:32 07:02 RBC (4.30-5.90) m/uL Hgb (13.0-17.5) gm/dL Hct (39.0-53.0) % MCV (80.0-100.0) fL RDW (11.5-15.5) % Plt Count (150-450) k/uL APTT (22.0-30.0) sec Sodium (137-145) mmol/L Potassium (3.5-5.1) mmol/L BUN (9-20) mg/dL Creatinine (0.66-1.25) mg/dL Glucose (74-99) mg/dL POC Glucose (mg/dL) 188 H (75-99) mg/dL Calcium (8.4-10.2) mg/dL Phosphorus 7.2 H (2.5-4.5) mg/dL Crossmatch Microbiology - Last 24 Hours (Table) 10/03/20 21:18 Gram Stain - Preliminary Sputum Sputum Culture - Preliminary 10/02/20 10:38 Blood Culture - Preliminary Blood No Growth after 24 hours 10/02/20 10:02 Blood Culture - Preliminary Blood No Growth after 24 hours Assessment and Plan Plan: Assessment: 1 acute hypoxic respiratory failure on top of chronic respiratory failure and the patient is coming in with diffuse bilateral pulmonary infiltrates. Consider fluid overload that evolved over the past 3 days as the patient is less hemodialysis approximately 3 days ago. Consider superinfection/pneumonia including the possibility of hospital-acquired pneumonia. Unlikely to be related to Covid 19 related pneumonia progression yet cannot be completely ruled out. The patient has dense bilateral pulmonary infiltrates with obvious interval worsening over the past 3 days. 2 atrial fibrillation with RVR, has been switched to oral Cardizem from Cardizem drip, at times still tachycardic. Heparin infusion was stopped related to acute decrease in platelet count and anemia without signs of bleeding 3 hemoptysis, only related to fluid overload, pulmonary edema, and infectious etiology. Consider possibility of microalveolar bleeding related to recent history of Covid 19 pneumonia, heparin drip is on hold, today's platelet count is down to 35,000, patient does have history of chronic thrombocytopenia, liver disease, and history of chronic alcoholism 4 history of paroxysmal atrial fibrillation 5 acute thrombocytopenia after initiation of heparin infusion from 144,000 down to 44,000 and a drop in hemoglobin without obvious signs of bleeding, globin is 7.9 on today's labs 6 acute leukocytosis, improved 7 recent hospitalization for COVID 19 related pneumonia 8 history of hemoptysis 9 coronary artery disease with previous cardiac catheterization and stenting 10 COPD 11 obstructive sleep apnea, not utilizing any form of sleep machine on outpatient basis 12 previous history of CVA with right-sided weakness 13 diabetes mellitus type 2 14 hyperlipidemia 15 hypertension 16 and stage renal disease on hemodialysis MWF 17 chronic thrombocytopenia 18 depression 19 history of alcoholism with secondary chronic pancreatitis and previous history of portal hypertension and esophageal varices 20 History of prolonged ventilator dependent respiratory failure due to ARDS requiring tracheostomy tube insertion and subsequent removal 21 anemia of chronic disease Plan: Continue holding heparin, awaiting results of the sputum culture, continue empiric antibiotics, patient will likely have another session of hemodialysis, he continues to have hemoptysis with production of old blood, there is a p ossibility of microalveolar hemorrhage related to chronic thrombocytopenia and recent history of Covid 19 pneumonia. Monitor for signs of GI blood loss, oxygenation is fairly stable, he is on 3 L of oxygen, wean FiO2. Her BiPAP support, today's chest x-ray has been reviewed, labs have been reviewed, monitoring H&H, platelet count, profile and electrolytes, continue to monitor in the intensive care unit. I performed a history & physical examination of the patient and discussed their management with my nurse practitioner, Yumiko Matta. I reviewed the nurse practitioner's note and agree with the documented findings and plan of care. Lung sounds are positive for clear breath sounds. The findings and the impression was discussed with the patient. I attest to the documentation by the nurse practitioner. Time with Patient: Greater than 30
[2020-10-04 11:48] LABS: Glucose,Whole Blood 186 mg/dL (75-99)
--- NOTE | 2020-10-04 11:57 | PN ---
PROGRESS NOTE Ismael is a 59-year-old gentleman who was admitted to ICU with COVID pneumonia and respiratory failure and developed atrial fibrillation and we are following him for atrial fibrillation. This morning, he remains in atrial fibrillation with heart rate in the 90s to 100 beats per minute. Blood pressure is 110/78, respiratory rate is 16. His labs show that the hemoglobin is 6.7. He is receiving blood transfusion. Platelet count remains low at 35, potassium is 5.2, BUN is 75, creatinine is 4.5. ASSESSMENT: Persistent atrial fibrillation with controlled ventricular rate on Cardizem. He is not a candidate for ablation. MMODL / IJN: [id number] /
--- NOTE | 2020-10-04 13:10 | P.PN ---
Subjective Progress Note Date: 10/04/20 HISTORY OF PRESENT ILLNESS This is a pleasant 59-year-old gentleman patient of Dr. Raza. He has underlying history of COPD chronic diastolic CHF and facial disease on hemodia lysis, diabetes type 2, hypertension, hyperlipidemia chronic pain, who was originally hospitalized September 04 to September 07 for hypoxemic respiratory failure and right lower lobe pneumonia secondary to CHF and COPD exacerbation. He was covered at that time. He comes back on September 25, for shortness of breath, and now diagnosed to have covered positive pneumonia left-sided. He presented with cytokine storm as well during that admission. His treatment at that time include Decadron 6 mg every 12 hours, followed by Dr. Wharton, also had atrial fibrillation, paroxysmal, for which anticoagulation has been held secondary to hemoptysis. he did not receive remdesivir during that that admission secondary to hemodialysis, end-stage renal failure, he was not hypoxemic at that time. He did not receive prominent bamlanivimab infusion either. She was discharged on dexamethasone 4 mg daily 5 days, Levaquin 500 milligrams 3 days every 48 hours, levalbuterol inhaler zinc and vitamin C. his last hemodialysis was approximately less than 3 days ago, He now comes in to emergency room with significant shortness of breath, this worsening dyspnea hypoxemia, required BiPAP treatment in the emergency room and is now transferred to ICU. [facility], O2 supplementation, IV antibiotics, chest x-ray emergency room shows worsening interval of the bilateral pulmonary infiltrates, also with bilateral pulmonary edema, IV antibiotics Zosyn, IV dexamethasone 6 mg every 6 hours, bronchodilators, consult with Dr. Garcia nephrology. Head admitting temperature was 99, heart rate 85-134, systolic blood pressure 85/68, current trend of 115/64, pulse ox 94% on BiPAP, 50% FiO2 2/9: Patient remains in intensive care unit. He developed A. fib with RVR and started on Cardizem drip currently controlled. Repeat chest x-ray reveals bilateral multifocal acute opacities with organizing consolidations in the lung bases consistent with covert 19 infection. No significant change. Patient has been seen by cardiology for persistent atrial fibrillation with poorly controlled rate. Plan is to continue beta tammy and calcium channel tammy. No further cardiac workup is planned. Patient is followed by pulmonary medicine. Patient's breathing is slightly improved from yesterday. CBC 6.2, hemoglobin 7.6, platelet count 56. Sodium 136, potassium 5.9, BUN 87 creatinine 5.11. Blood sugar 263. Blood cultures no growth at 24 hours. She complains of insomnia and melatonin added. 10/04: Patient remains in the intensive care unit. His breathing status seems to be stable at rest. Patient is having hemoptysis with dark sputum. No other signs of bleeding. Patient has been afebrile, heart rate 112, blood pressure 114/73, pulse ox 94% on 3 L nasal cannula. WBC 5, hemoglobin 6.7, platelet count 35. Sodium 136, potassium 5.2. BUN 75 and creatinine 4.52. Blood sugars running between 159 and 188. Blood cultures are no growth at 48 hours and sp utum cultures in progress. Chest x-ray reveals patchy bilateral airspace disease/pulmonary edema persists. Patient is followed by cardiology for persistent atrial fibrillation. Patient is not a candidate for ablation. REVIEW OF SYSTEMS Constitutional: No fever, no chills, no night sweats. No weight change. No weakness, reports fatigue or lethargy. Reports daytime sleepiness. EENT: No headache. No blurred vision or double vision, no loss of vision. No loss of Hearing, no ringing in the ears, no dizziness. No nasal drainage or congestion. No epistaxis. No sore throat. Lungs: Reports shortness of breath, reports cough, no sputum production. No wheezing. Reports hemoptysis. Cardiovascular: No chest pain, no lower extremity edema. No palpitations. No paroxysmal nocturnal dyspnea. No orthopnea. No lightheadedness or dizziness. No syncopal episodes. Abdominal: No abdominal pain. No nausea, vomiting. No diarrhea. No constipation. No bloody or tarry stools.. No loss of appetite. Genitourinary: No dysuria, increased frequency, urgency. No urinary retention. Musculoskeletal: No myalgias. No muscle weakness, no gait dysfunction, no frequent falls. No back pain. No neck pain. Integumentary: No wounds, no lesions. No rash or pruritus. No unusual bruising. No change in hair or nails. Neurologic: No aphasia. No facial droop. No change in mentation. No head injury. No headache. No paralysis. No paresthesia. Psychiatric: No depression. No anxiety. No mood swings. Endocrine: No abnormal blood sugars. No weight change. No excessive sweating or thirst. No cold intolerance. PHYSICAL EXAMINATION Gen: This is a 59-year-old male. He is resting in ICU bed and appears to be comfortable at rest. HEENT: Head is atraumatic, normocephalic. Pupils equal, round. Sclerae is anicteric. NECK: Supple. No JVD. No lymphadenopathy. No thyromegaly. LUNGS: Clear to auscultation. No wheezes or rhonchi. No intercostal retractions. HEART: Irregular rate and rhythm. No murmur. ABDOMEN: Soft. Bowel sounds are present. No masses. No tenderness. EXTREMITIES: No pedal edema. No calf tenderness. NEUROLOGICAL: Patient is awake, alert and oriented x3. Cranial nerves 2 through 12 are grossly intact. ASSESSMENT AND PLAN #1. Acute hypoxic respiratory failure related to COVID 19 pneumonia bilateral worsening x-rays compared to previous,, rule out possibility of bacterial pneumonia, on Decadron 6 mg along with bronchodilators. BiPAP treatments, Monitor need for possible Remdesivir infusion. Dexamethasone 6 mg every 24 hours per pulmonary, Continue vitamin supplements. Pulmonary consult appreciated. #2. Sepsis, with acute respiratory distress, leukocytosis, tachycardia, hypotension present prior to admission bilateral lower lobe pneumonia, fluid overload, and COPD Covid infection positive on 09/25/2020 did not qualify for them doesn't be secondary to end-stage renal disease hemodialysis, continue azithromycin, Zosyn, cautious monitoring, has pulm edema and fluid overload. Continue Bumex 4 mg twice daily. #3. hx of paroxysmal afib, currently controlled. restart corge. not on anticoagu secondary to hemoptyisis, fluctation of platelets thrombocytopenia episode during alst admisssion #4. History of coronary artery disease with catheterization and previous stenting #5 COPD on albuterol #6 elevated d-dimer. #7. History of CVA on aspirin and statin #8. Diabetes mellitus Accu-Cheks before meals and at bedtime with NovoLog 10 units with meals and sliding scale #9. GERD/reflux on Protonix #10. Hyperlipidemia on Lipitor 80 mg at at bedtime #11. Essential hypertension on Norvasc 5 mg daily along with Coreg 12.5 mg twice a day Bumex 4 mg by mouth twice a day, Imdur 30 by mouth daily #12. End-stage renal disease on Friday hemodialysis, consult with nephrology. #13. Chronic thrombocytopenia, we'll continue to monitor labs currently [id number] #14. Severe depression, on Paxil 20 mg daily #15. Past history of chronic alcoholism with history of chronic pancreatitis #16. GI prophylaxis on Protonix #17. DVT prophylaxis. #18. Obstructive sleep apnea, and most recently patient CPAP machine was broken DISCHARGE PLAN Most likely return home. May require home oxygen therapy. Impression and plan of care have been directed as dictated by the signing physician. Iram Love nurse practitioner acting as scribe for signing physician. Objective - Vital Signs Vital signs: Vital Signs Temp 97.9 F 10/04/20 10:50 Pulse 88 10/04/20 10:50 Resp 16 10/04/20 10:50 BP 127/81 10/04/20 10:50 Pulse Ox 95 10/04/20 10:50 Intake & Output 10/03/20 10/04/20 10/04/20 18:59 06:59 18:59 Intake Total 1007.368 320 610 Output Total 2700 0 0 Balance -1692.632 320 610 Weight 99.8 kg Intake: IV 470 100 250 0.9 KVO 120 Azithromycin 500 mg In 250 250 Sodium Chloride 0.9% 250 ml @ 250 mls/hr IVPB DAILY [facility] Rx#:[id number] Piperacillin-Tazobactam 3 100 100 0 .375 gm In Sodium Chloride 0.9% 100 ml @ 25 mls/hr IVPB Q8H [facility]ATH[facility] Rx#: [id number] Intake, IV Titration 197.368 Amount Diltiazem 125 mg In 111 Sodium Chloride 0.9% 100 ml @ 10 MG/HR 10 mls/hr IV .[id number] [facility]ATH[facility] Rx#: [id number] Heparin Sod,Pork in 0.45% 86.368 NaCl 25,000 unit In 0.45 % NaCl 1 250ml.bag @ 9.5 UNITS/KG/HR 10.004 mls/hr IV .Q24H ANTH[facility] Rx#: [id number] Oral 340 220 360 Blood Product 0 Rc As-1 Unit 0 [id number] Output: Urine 200 0 0 Hemodialysis 2500 Other: Voiding Method Urinal Urinal # Voids 1 # Bowel Movements 1 - Labs CBC & Chem 7: 10/04/20 03:32 10/04/20 03:32 Labs: Abnormal Lab Results - Last 24 Hours (Table) 10/03/20 10/03/20 10/03/20 Range/Units 07:24 12:02 16:49 RBC (4.30-5.90) m/uL Hgb (13.0-17.5) gm/dL Hct (39.0-53.0) % MCV (80.0-100.0) fL RDW (11.5-15.5) % Plt Count (150-450) k/uL APTT (22.0-30.0) sec Sodium (137-145) mmol/L Potassium (3.5-5.1) mmol/L BUN (9-20) mg/dL Creatinine (0.66-1.25) mg/dL Glucose (74-99) mg/dL POC Glucose (mg/dL) 291 H 186 H (75-99) mg/dL Calcium (8.4-10.2) mg/dL Phosphorus (2.5-4.5) mg/dL Crossmatch See Detail 10/04/20 10/04/20 10/04/20 Range/Units 03:32 03:32 03:32 RBC 2.01 L (4.30-5.90) m/uL Hgb 6.7 L* (13.0-17.5) gm/dL Hct 20.1 L (39.0-53.0) % MCV 100.3 H (80.0-100.0) fL RDW 15.8 H (11.5-15.5) % Plt Count 35 L (150-450) k/uL APTT 21.4 L (22.0-30.0) sec Sodium 136 L (137-145) mmol/L Potassium 5.2 H (3.5-5.1) mmol/L BUN 75 H (9-20) mg/dL Creatinine 4.52 H (0.66-1.25) mg/dL Glucose 159 H (74-99) mg/dL POC Glucose (mg/dL) (75-99) mg/dL Calcium 6.7 L (8.4-10.2) mg/dL Phosphorus (2.5-4.5) mg/dL Crossmatch 10/04/20 10/04/20 Range/Units 03:32 07:02 RBC (4.30-5.90) m/uL Hgb (13.0-17.5) gm/dL Hct (39.0-53.0) % MCV (80.0-100.0) fL RDW (11.5-15.5) % Plt Count (150-450) k/uL APTT (22.0-30.0) sec Sodium (137-145) mmol/L Potassium (3.5-5.1) mmol/L BUN (9-20) mg/dL Creatinine (0.66-1.25) mg/dL Glucose (74-99) mg/dL POC Glucose (mg/dL) 188 H (75-99) mg/dL Calcium (8.4-10.2) mg/dL Phosphorus 7.2 H (2.5-4.5) mg/dL Crossmatch Microbiology - Last 24 Hours (Table) 10/03/20 21:18 Gram Stain - Preliminary Sputum Sputum Culture - Preliminary 10/02/20 10:38 Blood Culture - Preliminary Blood No Growth after 24 hours 10/02/20 10:02 Blood Culture - Preliminary Blood No Growth after 24 hours
--- NOTE | 2020-10-04 14:51 | PN ---
PROGRESS NOTE Patient is seen for followup for end-stage renal disease. He was dialyzed yesterday for hyperkalemia and volume overload. Patient is receiving his third consecutive treatment today. His blood sugars are better controlled. Fluid restriction has been discussed with him. The patient remains on 3% nasal cannula with good O2 sats at about 98%. Patient's hemoglobin dropped to 6.7 today. He is complaining of increased weakness, currently being transfused packed RBCs. No active bleeding noted at this time. PHYSICAL EXAMINATION: Blood pressure was 114/73, heart rate 112 per minute. Patient is afebrile. EXAMINATION OF THE ABDOMEN: It is soft, nontender. Examination of lower extremity shows no significant edema. Chronic skin changes noted. SCIENTIFIC RESEARCH MANAGER exam grossly intact. LABS: Labs show hemoglobin 6.7, white cell count 5.0, platelet count 35,000. Sodium 136, potassium 5.2, BUN 75, creatinine 4.52. Phosphorus was 7.2. ASSESSMENT: 1. End-stage renal disease, on hemodialysis on a Friday, Friday, Friday schedule. 2. Volume overload currently worsened with underlying COVID infection/pneumonia. 3. Hyperkalemia associated with end-stage renal disease and worsened from the hyperglycemia. Blood sugars are better. Patient is receiving his third treatment today. We will hold dialysis tomorrow. He is advised regarding potassium restriction in diet as well. 4. Recent COVID-19 pneumonia, status post steroids being followed by Pulmonary. 5. Chronic kidney disease mineral bone disorder, maintained on PhosLo. 6. Acute hypoxic respiratory failure secondary to volume overload and pneumonia. 7. Anemia, with no active bleeding noted. Check stool for occult blood. The patient also has chronic thrombocytopenia associated with hypersplenism and history of EtOH abuse previously. PLAN: Hemodialysis today. We will hold dialysis tomorrow and plan for treatment on 10/06/2020. MMODL / IJN: [id number] /
[2020-10-04] MEDS ORDERED: DARBEPOETIN ALFA 60 MCG/0.3 ML SYRINGE SQ SCH (15:00)
[2020-10-04] MEDS: PIPERACILLIN-TAZOBACTAM 3.375 GM in SODIUM CHLORIDE 0.9% 100 ML IVPB SCH (16:05)
[2020-10-04] MEDS: PANTOPRAZOLE 40 MG TABLET PO SCH (16:05)
[2020-10-04 17:00] LABS: Glucose,Whole Blood 193 mg/dL (75-99)
[2020-10-04 20:39] LABS: Glucose,Whole Blood 214 mg/dL (75-99)
[2020-10-04] MEDS: ARIPiprazole 5 MG TAB PO SCH (21:44)
[2020-10-04] MEDS: ATORVASTATIN 80 MG TAB PO SCH (21:44)
[2020-10-04] MEDS: ASPIRIN 81 MG PO SCH (21:44)
[2020-10-04] MEDS: PARoxetine 20 MG TAB PO SCH (21:45)
[2020-10-05] MEDS: MORPHINE SULFATE ER 30 MG TABLET PO SCH ×2 (01:58→17:24)
[2020-10-05] MEDS: HYDROcodone/APAP 10-325MG 1 EACH TAB PO SCH ×6 (01:58→21:17)
[2020-10-05] MEDS: ALBUTEROL HFA INHALER INHALATION SCH ×5 (02:00→20:03)
[2020-10-05] MEDS: PIPERACILLIN-TAZOBACTAM 3.375 GM in SODIUM CHLORIDE 0.9% 100 ML IVPB SCH ×2 (04:04→17:27)
[2020-10-05 07:05] LABS: Glucose,Whole Blood 187 mg/dL (75-99)
[2020-10-05] MEDS: INSULIN ASPART (NovoLOG) 100 UNIT/ML VIAL SQ SCH ×6 (07:07→21:01)
[2020-10-05] MEDS: CALCIUM ACETATE 667 MG TAB PO SCH ×3 (07:07→17:27)
--- NOTE | 2020-10-05 07:37 | XR ---
EXAMINATION TYPE: XR chest 1V portable DATE OF EXAM: 10/05/2020 COMPARISON: 10/04/2020 INDICATION: Fluid overload TECHNIQUE: Single frontal view of the chest is obtained. FINDINGS: The heart size is normal. The pulmonary vasculature is prominent. Diffuse increased lung markings are present greater at the left lung base. Findings have significantl y improved over the interval IMPRESSION: 1. Correlate for resolving volume overload. 2. Some left basilar atelectasis may be present. Atypical pulmonary edema could be considered.
[2020-10-05] MEDS: DEXAMETHASONE SOD PHOSPHATE 10 MG/ML 1 ML VIAL IV SCH (08:09)
[2020-10-05] MEDS: BUMETANIDE 1 MG TAB PO SCH ×2 (08:09→21:17)
[2020-10-05] MEDS: CHOLECALCIFEROL 25 MCG (1000 IU) TABLET PO SCH (08:09)
[2020-10-05] MEDS: INSULIN DETEMIR (LEVEMIR) 100 UNIT/ML SYR SQ SCH (08:09)
[2020-10-05] MEDS: ZINC SULFATE 220 MG CAP PO SCH (08:09)
[2020-10-05] MEDS: ISOSORBIDE MONONITRATE ER 30 MG TAB.ER.24H PO SCH (08:10)
[2020-10-05] MEDS: AZITHROMYCIN 500 MG in SODIUM CHLORIDE 0.9% 250 ML IVPB SCH (08:10)
[2020-10-05] MEDS: DILTIAZEM ORAL 30 MG TAB PO SCH ×3 (08:10→21:17)
[2020-10-05] MEDS: carvediloL 12.5 MG TAB PO SCH ×2 (08:10→21:17)
[2020-10-05] MEDS: ASCORBIC ACID 500 MG TAB PO SCH (08:10)
[2020-10-05] MEDS: TIOTROPIUM 2.5 MCG INHALER INHALATION SCH (09:12)
--- NOTE | 2020-10-05 10:13 | P.PN ---
Subjective Progress Note Date: 10/05/20 59-year-old male patient came into the emergency department today because of worsening shortness of breath. The patient was in the hospital. He has multiple medical problems and comorbidities. He was diagnosed having coronavirus/Covid 19 related pneumonia approximately a week ago and he was treated on outpatient basis and upon discharge was asked to complete his course of Decadron and he was also given a course of Levaquin on outpatient basis. He has multiple issues including end-stage renal disease and his last hemodialysis was on Friday prior to him being discharged from the hospital. The patient came into the emergency department having worsening shortness of breath and cough and yellow sputum production and he did cough out some blood today. His shortness of breath was getting worse. No chest pain. He was feeling quite fatigued. He had some fever and chills. No major swelling lower extremities or upper extremities. He has and functional AV fistula in the right upper extremity. He was unable to speak long sentences and he was able to state only a few words in the emergency department. His chest x-ray showed diffuse bilateral pulmonary infiltration and his white cell count was at 25.2 and the hemoglobin was 10.3. Potassium level was at 6.1. BUN was 170 with a creatinine of 7.3. Glucose was 310. ProBNP level was 42,000. Bilirubin level was at 1.6. SGOT was 26, SGPT was 34. Alkaline phosphatase was 59. LDH was 713 and the CRP level was 60.5. The patient was placed on a BiPAP at a pressure of 12/5 cm of water and following that the patient got transferred to the intensive care unit. The patient was started on hemodialysis. He did have an echocardiogram during his most recent hospitalization and echocardiac Paxton showed a preserved LV function with an ejection fraction of 55% without any significant valvular abnormality. This was done on 09/05/2020. There was moderate concentric LVH. No pericardial effusion. No significant pulmonary hypertension. On 10/03/2020 patient seen in follow-up in the intensive care unit. Patient had a hemodialysis treatment yesterday would removal of 3 L of fluid. He is breathing easier today, he is satting 99% on 5 L, FiO2 was cut back to 3 L, lung sounds are diminished, no rhonchi or rales, occasional cough, sputum sample has not been collected yet, but occasionally the patient does bring up some jasso colored phlegm. Overnight he developed atrial fibrillation with RVR, he does have paroxysmal A. fib history, however has not had A. fib in several months. She was started on Cardizem drip for rate control, currently remains in A. fib with a rate of 85-97 BPM. Blood pressure is stable 94/55. On heparin infusion per cardiology overnight however this morning's labs revealed platelet down to 44,000, 174,000 earlier in the day yesterday, and hemoglobin down to 7 with no obvious signs of bleeding. Abdomen is soft, no hematemesis, no melena, no hematochezia. This morning his blood work reviewed showing platelet count slightly better up to 56,000, hemoglobin is 7.6, white count is down to 6.2, patient remains on combination of antibiotics including azithromycin and Zosyn. Trace pretibial edema is present, renal profile has improved on today's labs, and creatinine down to 5.1, with BUN of 87 On 10/04/2020 patient seen in follow-up in intensive care unit. He is awake and alert, in no acute distress, he is on 3 L of oxygen pulse ox is 96%, his been afebrile, he is in atrial fibrillation, and his rate at times is so tachycardic up to 110 to 1:30 BPM, most that time she is at 90-100 bpm, heparin drip continues to be on hold, in view of acute drop in his platelet count and hemoglobin. Continues to have hemoptysis, he is bringing up some dark-colored sputum with old blood in it, no hematemesis, no dark or bloody stools. Blood pressure is stable, not requiring any vasopressor support, patient had hemodialysis yesterday with removal of 2.5 L of fluid, and had hemodialysis the day before would removal of 3 L of fluid, his lower extremity edema is improving, he is breathing easier, this chest x-ray has been reviewed showing patchy bilateral airspace disease/pulmonary edema and hypoventilatory changes. Patient has had no fever since admission, he is on azithromycin and Zosyn for a ntibiotic coverage, sputum cultures have been sent, and are pending at this time. Labs have been reviewed, hemoglobin is down to 6.7, white blood cell count was 5.0, his platelet count is 35,000, sodium is 136, potassium is 5.2, B1 is 75, creatinine is 4.52. Fluid restriction as he was drinking excessive amount of fluids including soda according to the nursing staff, is fairly comfortable right now, no altered mentation, answering questions appropriately, does not appear to be in any respiratory distress The patient is seen today for 2020 in follow-up in the intensive care unit. He is currently sitting up in a chair at the bedside. Awake and alert in no acute distress. Currently maintaining O2 saturations in the 90s on 2 L/m per nasal cannula. No hemodialysis today. He is back on his Friday schedule. He remains on antibiotics in the form of Zosyn and az ithromycin. No IV fluids. 1200 mL fluid restriction. Today's labs are pending. Remains on albuterol and Spiriva. IV Decadron. Vitamin supplements. He is afebrile. Current heart rate 105. Chest x-ray showing improvement in the fluid volume overload. Objective - Vital Signs Vital signs: Vital Signs Temp 97.8 F 10/05/20 09:00 Pulse 105 H 10/05/20 09:00 Resp 15 10/05/20 09:00 BP 133/67 10/05/20 09:00 Pulse Ox 100 10/05/20 09:00 Intake & Output 10/04/20 10/05/20 10/05/20 18:59 06:59 18:59 Intake Total 2260 430 340 Output Total 3000 0 0 Balance -740 430 340 Weight 97.5 kg Intake: IV 350 210 10 0.9 KVO 110 10 Azithromycin 500 mg In 250 Sodium Chloride 0.9% 250 ml @ 250 mls/hr IVPB DAILY NATHAN Rx#:[id number] Piperacillin-Tazobactam 3 100 .375 gm In Sodium Chloride 0.9% 100 ml @ 25 mls/hr IVPB Q12H NATHAN Rx# :[id number] Piperacillin-Tazobactam 3 100 .375 gm In Sodium Chloride 0.9% 100 ml @ 25 mls/hr IVPB Q8H NATHAN Rx#: [id number] Oral 800 220 330 Blood Product 310 Rc As-1 Unit 310 [id number] Hemodialysis 800 Output: Urine 0 0 0 Hemodialysis 3000 Other: Voiding Method Urinal Urinal Urinal - Exam GENERAL EXAM: Alert, pleasant 59-year-old male patient, on 2 l/min of oxygen, comfortable in no apparent distress. HEAD: Normocephalic/atraumatic. EYES: Normal reaction of pupils, equal size. Conjunctiva pink, sclera white. NOSE: Clear with pink turbinates. THROAT: No erythema or exudates. NECK: No masses, no JVD, no thyroid enlargement, no adenopathy. CHEST: No chest wall deformity. Symmetrical expansion. LUNGS: Equal air entry with no crackles, wheeze, rhonchi or dullness. CVS: Irregular rate and rhythm, normal S1 and S2, no gallops, no murmurs, no rubs. Currently tachycardic with a rate of 103 bpm ABDOMEN: Soft, nontender. No hepatosplenomegaly, normal bowel sounds, no guarding or rigidity. EXTREMITIES: No clubbing, trace pretibial edema, no cyanosis, 2+ pulses and upper and lower extremities. MUSCULOSKELETAL: Muscle strength and tone normal. SPINE: No scoliosis or deformity SKIN: No rashes CENTRAL NERVOUS SYSTEM: Alert and oriented -3. No focal deficits, tone is normal in all 4 extremities. PSYCHIATRIC: Alert and oriented -3. Appropriate affect. Intact judgment and insight. - Labs CBC & Chem 7: 10/04/20 03:32 10/04/20 03:32 Labs: Abnormal Lab Results - Last 24 Hours (Table) 10/03/20 10/04/20 10/04/20 Range/Units 07:24 11:47 16:59 POC Glucose (mg/dL) 186 H 193 H (75-99) mg/dL Crossmatch See Detail 10/04/20 10/05/20 Range/Units 20:38 07:04 POC Glucose (mg/dL) 214 H 187 H (75-99) mg/dL Crossmatch Microbiology - Last 24 Hours (Table) 10/02/20 10:38 Blood Culture - Preliminary Blood No Growth after 48 hours 10/02/20 10:02 Blood Culture - Preliminary Blood No Growth after 48 hours 10/03/20 21:18 Gram Stain - Preliminary Sputum Sputum Culture - Preliminary Assessment and Plan Assessment: 1 acute hypoxic respiratory failure on top of chronic respiratory failure and the patient is coming in with diffuse bilateral pulmonary infiltrates. Consider fluid overload that evolved over the past 3 days as the patient is less h emodialysis approximately 3 days ago. Consider superinfection/pneumonia including the possibility of hospital-acquired pneumonia. Unlikely to be related to Covid 19 related pneumonia progression yet cannot be completely ruled out. The patient has dense bilateral pulmonary infiltrates with obvious interval worsening over the past 3 days. 2 atrial fibrillation with RVR, has been switched to oral Cardizem from Cardizem drip, at times still tachycardic. Heparin infusion was stopped related to acute decrease in platelet count and anemia without signs of bleeding 3 hemoptysis, only related to fluid overload, pulmonary edema, and infectious etiology. Consider possibility of microalveolar bleeding related to recent history of Covid 19 pneumonia, heparin drip is on hold, today's platelet count is down to 35,000, patient does have history of chronic thrombocytopenia, liver disease, and history of chronic alcoholism 4 history of paroxysmal atrial fibrillation 5 acute thrombocytopenia after initiation of heparin infusion from 144,000 down to 44,000 and a drop in hemoglobin without obvious signs of bleeding, globin is 7.9 on today's labs 6 acute leukocytosis, improved 7 recent hospitalization for COVID 19 related pneumonia 8 history of hemoptysis 9 coronary artery disease with previous cardiac catheterization and stenting 10 COPD 11 obstructive sleep apnea, not utilizing any form of sleep machine on outpatient basis 12 previous history of CVA with right-sided weakness 13 diabetes mellitus type 2 14 hyperlipidemia 15 hypertension 16 and stage renal disease on hemodialysis MWF 17 chronic thrombocytopenia 18 depression 19 history of alcoholism with secondary chronic pancreatitis and previous history of portal hypertension and esophageal varices 20 History of prolonged ventilator dependent respiratory failure due to ARDS requiring tracheostomy tube insertion and subsequent removal 21 anemia of chronic disease Plan: The patient was seen and evaluated by Dr. Wharton Chest x-ray showing improvement Stable from the pulmonary and critical care standpoint Continue hemodialysis Friday Transfer out of the ICU today We will continue to follow I, the cosigning physician, performed a history & physical examination of the patient. Lungs sounds are clear. Maintaining good O2 saturations in the 90s on 2 L/m per nasal cannula. I discussed the assessment and plan of care with my nurse practitioner, Keila Paredes. I attest to the above note as dictated by her.
[2020-10-05 10:47] LABS: Albumin 2.9 g/dL (3.5-5.0); Calcium 6.9 mg/dL (8.4-10.2); Total Bilirubin 1.1 mg/dL (0.2-1.3); Total Protein 5.6 g/dL (6.3-8.2)
[2020-10-05 10:50] LABS: Potassium 4.9 mmol/L (3.5-5.1)
[2020-10-05 10:51] LABS: Magnesium 2.1 mg/dL (1.6-2.3); Phosphorus 5.2 mg/dL (2.5-4.5)
--- NOTE | 2020-10-05 11:45 | P.PN ---
Subjective Progress Note Date: 10/05/20 HISTORY OF PRESENT ILLNESS This is a pleasant 59-year-old gentleman patient of Dr. Raza. He has underlying history of COPD chronic diastolic CHF and facial disease on hemodia lysis, diabetes type 2, hypertension, hyperlipidemia chronic pain, who was originally hospitalized September 04 to September 07 for hypoxemic respiratory failure and right lower lobe pneumonia secondary to CHF and COPD exacerbation. He was covered at that time. He comes back on September 25, for shortness of breath, and now diagnosed to have covered positive pneumonia left-sided. He presented with cytokine storm as well during that admission. His treatment at that time include Decadron 6 mg every 12 hours, followed by Dr. Wharton, also had atrial fibrillation, paroxysmal, for which anticoagulation has been held secondary to hemoptysis. he did not receive remdesivir during that that admission secondary to hemodialysis, end-stage renal failure, he was not hypoxemic at that time. He did not receive prominent bamlanivimab infusion either. She was discharged on dexamethasone 4 mg daily 5 days, Levaquin 500 milligrams 3 days every 48 hours, levalbuterol inhaler zinc and vitamin C. his last hemodialysis was approximately less than 3 days ago, He now comes in to emergency room with significant shortness of breath, this worsening dyspnea hypoxemia, required BiPAP treatment in the emergency room and is now transferred to ICU. [facility], O2 supplementation, IV antibiotics, chest x-ray emergency room shows worsening interval of the bilateral pulmonary infiltrates, also with bilateral pulmonary edema, IV antibiotics Zosyn, IV dexamethasone 6 mg every 6 hours, bronchodilators, consult with Dr. Garcia nephrology. Head admitting temperature was 99, heart rate 85-134, systolic blood pressure 85/68, current trend of 115/64, pulse ox 94% on BiPAP, 50% FiO2 2/9: Patient remains in intensive care unit. He developed A. fib with RVR and started on Cardizem drip currently controlled. Repeat chest x-ray reveals bilateral multifocal acute opacities with organizing consolidations in the lung bases consistent with covert 19 infection. No significant change. Patient has been seen by cardiology for persistent atrial fibrillation with poorly controlled rate. Plan is to continue beta tammy and calcium channel tammy. No further cardiac workup is planned. Patient is followed by pulmonary medicine. Patient's breathing is slightly improved from yesterday. CBC 6.2, hemoglobin 7.6, platelet count 56. Sodium 136, potassium 5.9, BUN 87 creatinine 5.11. Blood sugar 263. Blood cultures no growth at 24 hours. She complains of insomnia and melatonin added. 10/04: Patient remains in the intensive care unit. His breathing status seems to be stable at rest. Patient is having hemoptysis with dark sputum. No other signs of bleeding. Patient has been afebrile, heart rate 112, blood pressure 114/73, pulse ox 94% on 3 L nasal cannula. WBC 5, hemoglobin 6.7, platelet count 35. Sodium 136, potassium 5.2. BUN 75 and creatinine 4.52. Blood sugars running between 159 and 188. Blood cultures are no growth at 48 hours and sp utum cultures in progress. Chest x-ray reveals patchy bilateral airspace disease/pulmonary edema persists. Patient is followed by cardiology for persistent atrial fibrillation. Patient is not a candidate for ablation. 10/05: Patient remains in intensive care unit. He is followed by pulmonary med [place] closely. Repeat chest x-ray reveals correlate for resolving volume overload. Some left basilar atelectasis may be present. Atypical pulmonary edema could be considered. Patient is seen sitting up in a chair in his room. Physical exam was not performed today and defer to pulmonary medicine. He is on dialysis Friday schedule. He is on a 1200 mL fluid restriction. Patient has been afebrile, heart rate 105, blood pressure 133/67, pulse ox 97-100% on 2 L nasal cannula. Blood sugars are running anywhere between 193-295. Potassium is 4.9, BUN 65 and creatinine 4.01. REVIEW OF SYSTEMS Constitutional: No fever, no chills, no night sweats. No weight change. No weakness, reports fatigue or lethargy. Reports daytime sleepiness. EENT: No headache. No blurred vision or double vision, no loss of vision. No loss of Hearing, no ringing in the ears, no dizziness. No nasal drainage or congestion. No epistaxis. No sore throat. Lungs: Reports shortness of breath, reports cough, no sputum production. No wheezing. Reports hemoptysis. Cardiovascular: No chest pain, no lower extremity edema. No palpitations. No paroxysmal nocturnal dyspnea. No orthopnea. No lightheadedness or dizziness. No syncopal episodes. Abdominal: No abdominal pain. No nausea, vomiting. No diarrhea. No constipation. No bloody or tarry stools.. No loss of appetite. Genitourinary: No dysuria, increased frequency, urgency. No urinary retention. Musculoskeletal: No myalgias. No muscle weakness, no gait dysfunction, no frequent falls. No back pain. No neck pain. Integumentary: No wounds, no lesions. No rash or pruritus. No unusual bruising. No change in hair or nails. Neurologic: No aphasia. No facial droop. No change in mentation. No head injury. No headache. No paralysis. No paresthesia. Psychiatric: No depression. No anxiety. No mood swings. Endocrine: No abnormal blood sugars. No weight change. No excessive sweating or thirst. No cold intolerance. PHYSICAL EXAMINATION Gen: This is a 59-year-old male. He is resting in a [place] in his room and appears to be comfortable at rest. HEENT: Head is atraumatic, normocephalic. LUNGS: No intercostal retractions. Physical exam deferred due to COVID19 infection, ICU care ASSESSMENT AND PLAN #1. Acute hypoxic respiratory failure related to COVID 19 pneumonia bilateral worsening x-rays compared to previous,, rule out possibility of bacterial pneumonia, on Decadron 6 mg along with bronchodilators. BiPAP treatments, MonitorContinue vitamin supplements. Pulmonary consult appreciated. #2. Sepsis, with acute respiratory distress, leukocytosis, tachycardia, hypotension present prior to admission bilateral lower lobe pneumonia, possible gram-negative pneumonia, fluid overload, and COPD Covid infection positive on 09/25/2020 did not qualify for Remdesivir secondary to end-stage renal disease hemodialysis, continue azithromycin, Zosyn, cautious monitoring, has pulm edema and fluid overload. Continue Bumex 4 mg twice daily. #3. hx of paroxysmal afib, currently controlled. Continue Coreg. Patient not o n anticoagu secondary to hemoptyisis, fluctation of platelets thrombocytopenia episode during last admisssion #4. History of coronary artery disease with catheterization and previous stenting #5 COPD on albuterol #6 elevated d-dimer. #7. History of CVA on aspirin and statin #8. Diabetes mellitus Accu-Cheks before meals and at bedtime with NovoLog 10 units with meals and sliding scale #9. GERD/reflux on Protonix #10. Hyperlipidemia on Lipitor 80 mg at at bedtime #11. Essential hypertension on Norvasc 5 mg daily along with Coreg 12.5 mg twice a day Bumex 4 mg by mouth twice a day, Imdur 30 by mouth daily #12. End-stage renal disease on Friday hemodialysis, consult with nephrology. #13. Chronic thrombocytopenia, we'll continue to monitor labs currently [id number] #14. Severe depression, on Paxil 20 mg daily #15. Past history of chronic alcoholism with history of chronic pancreatitis #16. GI prophylaxis on Protonix #17. DVT prophylaxis. #18. Obstructive sleep apnea, and most recently patient CPAP machine was broken DISCHARGE PLAN Most likely return home. May require home oxygen therapy. Impression and plan of care have been directed as dictated by the signing physician. Iram Love nurse practitioner acting as scribe for signing physician. Objective - Vital Signs Vital signs: Vital Signs Temp 97.8 F 10/05/20 09:00 Pulse 105 H 10/05/20 09:00 Resp 15 10/05/20 09:00 BP 133/67 10/05/20 09:00 Pulse Ox 100 10/05/20 09:00 Intake & Output 10/04/20 10/05/20 10/05/20 18:59 06:59 18:59 Intake Total 2260 430 340 Output Total 3000 0 0 Balance -740 430 340 Weight 97.5 kg Intake: IV 350 210 10 0.9 KVO 110 10 Azithromycin 500 mg In 250 Sodium Chloride 0.9% 250 ml @ 250 mls/hr IVPB DAILY NATHAN Rx#:[id number] Piperacillin-Tazobactam 3 100 .375 gm In Sodium Chloride 0.9% 100 ml @ 25 mls/hr IVPB Q12H NATHAN Rx# :[id number] Piperacillin-Tazobactam 3 100 .375 gm In Sodium Chloride 0.9% 100 ml @ 25 mls/hr IVPB Q8H NATHAN Rx#: [id number] Oral 800 220 330 Blood Product 310 Rc As-1 Unit 310 [id number] Hemodialysis 800 Output: Urine 0 0 0 Hemodialysis 3000 Other: Voiding Method Urinal Urinal Urinal - Labs CBC & Chem 7: 10/04/20 03:32 10/05/20 09:20 Labs: Abnormal Lab Results - Last 24 Hours (Table) 10/03/20 10/04/20 10/04/20 Range/Units 07:24 11:47 16:59 POC Glucose (mg/dL) 186 H 193 H (75-99) mg/dL Crossmatch See Detail 10/04/20 10/05/20 Range/Units 20:38 07:04 POC Glucose (mg/dL) 214 H 187 H (75-99) mg/dL Crossmatch Microbiology - Last 24 Hours (Table) 10/02/20 10:38 Blood Culture - Preliminary Blood No Growth after 48 hours 10/02/20 10:02 Blood Culture - Preliminary Blood No Growth after 48 hours 10/03/20 21:18 Gram Stain - Preliminary Sputum Sputum Culture - Preliminary
[2020-10-05 12:05] LABS: Glucose,Whole Blood 240 mg/dL (75-99)
[2020-10-05 12:11] LABS: Basophils % (A) 0 %; Eosinophils % (A) 0 %; HGB 8.1 gm/dL (13.0-17.5); Hypochromasia Slight; Lymphocytes # (A) 0.3 k/uL (1.0-4.8); Lymphocytes % (A) 4 %; MCH 32.3 pg (25.0-35.0); MCHC 32.5 g/dL (31.0-37.0); MCV 99.2 fL (80.0-100.0); Macrocytosis Slight; Mean Platelet Volume 10.3; Monocytes # (A) 0.2 k/uL (0-1.0); Monocytes % (A) 3 %; Neutrophils # (A) 6.2 k/uL (1.3-7.7); Neutrophils % (A) 93 %; Poikilocytosis Slight; RBC 2.52 m/uL (4.30-5.90); RDW 15.8 % (11.5-15.5); WBC 6.7 k/uL (3.8-10.6)
[2020-10-05 12:12] LABS: Platelet Count 36 k/uL (150-450)
--- NOTE | 2020-10-05 13:04 | PN ---
PROGRESS NOTE Ismael is a 59-year-old gentleman that is admitted to hospital with COVID infection with pneumonia, had atrial fibrillation was started on IV heparin, developed significant anemia and thrombocytopenia. He is looking much better now. He is currently on Cardizem 30 mg t.i.d., Decadron, Coreg 12.5 b.i.d., Bumex 4 b.i.d. On exam, heart rate is in atrial fibrillation with controlled ventricular rate. Heart rate is 90 beats per minute. Blood pressure is 130/60. Respiratory rate is 16. Labs show that the potassium is 4.9, BUN is 65, creatinine is 4. ASSESSMENT: 1. COVID pneumonia. 2. Persistent atrial fibrillation. The patient will continue current medications. No further intervention at this time. We will follow the patient on a p.r.n. basis. RANJEET / ESTHELA: [id number] /
--- NOTE | 2020-10-05 13:22 | PN ---
PROGRESS NOTE Patient is seen for followup for end-stage renal disease. He was admitted to the hospital with shortness of breath, fluid overload and hyperkalemia. The patient has been dialyzed consecutively for the last 3 days. He is not scheduled for hemodialysis today. He has been talked to regarding fluid restriction and potassium restriction in his diet. Repeat COVID test has been ordered to assess if the patient can go back to his home clinic for dialysis post discharge. PHYSICAL EXAMINATION: On examination today, patient is comfortable. Blood pressure is 111/60, heart rate 95 per minute. He appears euvolemic. Heart and lungs are not examine. No edema noted in his lower extremities. INSURANCE ASSOCIATE exam grossly intact. LABS: Labs show hemoglobin of 8.1, sodium of 137, potassium 4.9, BUN 65, creatinine 4.01. Calcium 6.9, phosphorus 5.2. ASSESSMENT: 1. End-stage renal disease, on hemodialysis on a Friday, Friday, Friday schedule. 2. Recent COVID pneumonia. COVID test has been resent to assess if patient can return back to his home clinic. He was last positive on 09/25/2020. 3. Hyperkalemia, associated with end-stage renal disease and some degree of dietary noncompliance. 4. Fluid overload, now improved. 5. Acute hypoxic respiratory failure associated with fluid overload as well as an element of pneumonia most likely COVID pneumonia, maintained on antibiotics. 6. Chronic kidney disease mineral bone disorder, currently maintained on PhosLo. 7. Anemia of chronic disease with acute blood loss anemia, status post packed RBCs transfusion. 8. Chronic thrombocytopenia with history of hypersplenism. 9. Atrial fibrillation with controlled ventricular response, not a candidate for anticoagulation. PLAN: Hemodialysis in a.m. Check labs today. Patient may need another COVID-19 test if this repeat test is negative prior to him going back to his home clinic in [place]. MMODL / IJN: [id number] /
[2020-10-05 17:23] LABS: Glucose,Whole Blood 133 mg/dL (75-99)
[2020-10-05] MEDS: PANTOPRAZOLE 40 MG TABLET PO SCH (17:27)
[2020-10-05 20:31] LABS: Glucose,Whole Blood 375 mg/dL (75-99)
[2020-10-05] MEDS: ATORVASTATIN 80 MG TAB PO SCH (21:17)
[2020-10-05] MEDS: ASPIRIN 81 MG PO SCH (21:17)
[2020-10-05] MEDS: ARIPiprazole 5 MG TAB PO SCH (21:17)
[2020-10-05] MEDS: PARoxetine 20 MG TAB PO SCH (21:17)
[2020-10-06] MEDS: MORPHINE SULFATE ER 30 MG TABLET PO SCH ×2 (01:14→14:06)
[2020-10-06] MEDS: HYDROcodone/APAP 10-325MG 1 EACH TAB PO SCH ×6 (01:15→20:34)
[2020-10-06] MEDS: ALBUTEROL HFA INHALER INHALATION SCH ×4 (02:29→21:19)
[2020-10-06 04:04] LABS: Basophils % (A) 0 %; Eosinophils # (A) 0.1 k/uL (0-0.7); Eosinophils % (A) 2 %; HCT 24.6 % (39.0-53.0); HGB 8.1 gm/dL (13.0-17.5); Hypochromasia Slight; Lymphocytes # (A) 0.4 k/uL (1.0-4.8); Lymphocytes % (A) 5 %; MCH 32.4 pg (25.0-35.0); MCHC 32.8 g/dL (31.0-37.0); MCV 98.6 fL (80.0-100.0); Macrocytosis Slight; Mean Platelet Volume 9.7; Monocytes # (A) 0.3 k/uL (0-1.0); Monocytes % (A) 4 %; Neutrophils # (A) 6.2 k/uL (1.3-7.7); Neutrophils % (A) 88 %; RDW 15.7 % (11.5-15.5)
[2020-10-06] MEDS: PIPERACILLIN-TAZOBACTAM 3.375 GM in SODIUM CHLORIDE 0.9% 100 ML IVPB SCH (04:05)
[2020-10-06 04:12] LABS: Platelet Count 28 k/uL (150-450)
[2020-10-06 04:16] LABS: Calcium 6.7 mg/dL (8.4-10.2); Magnesium 2.2 mg/dL (1.6-2.3); Phosphorus 6.1 mg/dL (2.5-4.5); Potassium 4.8 mmol/L (3.5-5.1); Total Bilirubin 0.9 mg/dL (0.2-1.3); Total Protein 5.3 g/dL (6.3-8.2)
[2020-10-06 06:57] LABS: Glucose,Whole Blood 214 mg/dL (75-99)
[2020-10-06] MEDS: INSULIN ASPART (NovoLOG) 100 UNIT/ML VIAL SQ SCH ×7 (07:06→20:34)
[2020-10-06] MEDS: CALCIUM ACETATE 667 MG TAB PO SCH ×3 (07:06→16:49)
[2020-10-06] MEDS: INSULIN DETEMIR (LEVEMIR) 100 UNIT/ML SYR SQ SCH (07:11)
--- NOTE | 2020-10-06 07:14 | XR ---
EXAMINATION TYPE: XR chest 1V portable DATE OF EXAM: 10/06/2020 HISTORY: Shortness of breath. COMPARISON: 10/05/2020 TECHNIQUE: Single view of the chest is submitted. FINDINGS: Demonstrated are scattered senescent parenchymal change. Perihilar and basilar infiltrates persist essentially unchanged. The heart is stable. Hilar and mediastinal structures are within normal limits. Degenerative changes are seen of the dorsal spine. IMPRESSION: 1. Stable chest
[2020-10-06] MEDS: DEXAMETHASONE SOD PHOSPHATE 10 MG/ML 1 ML VIAL IV SCH (08:32)
[2020-10-06] MEDS: AZITHROMYCIN 500 MG in SODIUM CHLORIDE 0.9% 250 ML IVPB SCH (08:32)
[2020-10-06] MEDS: CHOLECALCIFEROL 25 MCG (1000 IU) TABLET PO SCH (08:32)
[2020-10-06] MEDS: DILTIAZEM ORAL 30 MG TAB PO SCH ×3 (08:32→22:36)
[2020-10-06] MEDS: BUMETANIDE 1 MG TAB PO SCH ×2 (08:33→20:33)
[2020-10-06] MEDS: ASCORBIC ACID 500 MG TAB PO SCH (08:33)
[2020-10-06] MEDS: ISOSORBIDE MONONITRATE ER 30 MG TAB.ER.24H PO SCH (08:33)
[2020-10-06] MEDS: carvediloL 12.5 MG TAB PO SCH ×2 (08:33→20:33)
[2020-10-06] MEDS: ZINC SULFATE 220 MG CAP PO SCH (08:34)
[2020-10-06] MEDS: TIOTROPIUM 2.5 MCG INHALER INHALATION SCH (08:59)
--- NOTE | 2020-10-06 09:48 | P.PN ---
Subjective Progress Note Date: 10/06/20 59-year-old male patient came into the emergency department today because of worsening shortness of breath. The patient was in the hospital. He has multiple medical problems and comorbidities. He was diagnosed having coronavirus/Covid 19 related pneumonia approximately a week ago and he was treated on outpatient basis and upon discharge was asked to complete his course of Decadron and he was also given a course of Levaquin on outpatient basis. He has multiple issues including end-stage renal disease and his last hemodialysis was on Friday prior to him being discharged from the hospital. The patient came into the emergency department having worsening shortness of breath and cough and yellow sputum production and he did cough out some blood today. His shortness of breath was getting worse. No chest pain. He was feeling quite fatigued. He had some fever and chills. No major swelling lower extremities or upper extremities. He has and functional AV fistula in the right upper extremity. He was unable to speak long sentences and he was able to state only a few words in the emergency department. His chest x-ray showed diffuse bilateral pulmonary infiltration and his white cell count was at 25.2 and the hemoglobin was 10.3. Potassium level was at 6.1. BUN was 170 with a creatinine of 7.3. Glucose was 310. ProBNP level was 42,000. Bilirubin level was at 1.6. SGOT was 26, SGPT was 34. Alkaline phosphatase was 59. LDH was 713 and the CRP level was 60.5. The patient was placed on a BiPAP at a pressure of 12/5 cm of water and following that the patient got transferred to the intensive care unit. The patient was started on hemodialysis. He did have an echocardiogram during his most recent hospitalization and echocardiac [place] showed a preserved LV function with an ejection fraction of 55% without any significant valvular abnormality. This was done on 09/05/2020. There was moderate concentric LVH. No pericardial effusion. No significant pulmonary hypertension. On 10/03/2020 patient seen in follow-up in the intensive care unit. Patient had a hemodialysis treatment yesterday would removal of 3 L of fluid. He is breathing easier today, he is satting 99% on 5 L, FiO2 was cut back to 3 L, lung sounds are diminished, no rhonchi or rales, occasional cough, sputum sample has not been collected yet, but occasionally the patient does bring up some jasso colored phlegm. Overnight he developed atrial fibrillation with RVR, he does have paroxysmal A. fib history, however has not had A. fib in several months. She was started on Cardizem drip for rate control, currently remains in A. fib with a rate of 85-97 BPM. Blood pressure is stable 94/55. On heparin infusion per cardiology overnight however this morning's labs revealed platelet down to 44,000, 174,000 earlier in the day yesterday, and hemoglobin down to 7 with no obvious signs of bleeding. Abdomen is soft, no hematemesis, no melena, no hematochezia. This morning his blood work reviewed showing platelet count slightly better up to 56,000, hemoglobin is 7.6, white count is down to 6.2, patient remains on combination of antibiotics including azithromycin and Zosyn. Trace pretibial edema is present, renal profile has improved on today's labs, and creatinine down to 5.1, with BUN of 87 On 10/04/2020 patient seen in follow-up in intensive care unit. He is awake and alert, in no acute distress, he is on 3 L of oxygen pulse ox is 96%, his been afebrile, he is in atrial fibrillation, and his rate at times is so tachycardic up to 110 to 1:30 BPM, most that time she is at 90-100 bpm, heparin drip continues to be on hold, in view of acute drop in his platelet count and hemoglobin. Continues to have hemoptysis, he is bringing up some dark-colored sputum with old blood in it, no hematemesis, no dark or bloody stools. Blood pressure is stable, not requiring any vasopressor support, patient had hemodialysis yesterday with removal of 2.5 L of fluid, and had hemodialysis the day before would removal of 3 L of fluid, his lower extremity edema is improving, he is breathing easier, this chest x-ray has been reviewed showing patchy bilateral airspace disease/pulmonary edema and hypoventilatory changes. Patient has had no fever since admission, he is on azithromycin and Zosyn for a ntibiotic coverage, sputum cultures have been sent, and are pending at this time. Labs have been reviewed, hemoglobin is down to 6.7, white blood cell count was 5.0, his platelet count is 35,000, sodium is 136, potassium is 5.2, B1 is 75, creatinine is 4.52. Fluid restriction as he was drinking excessive amount of fluids including soda according to the nursing staff, is fairly comfortable right now, no altered mentation, answering questions appropriately, does not appear to be in any respiratory distress The patient is seen today for 2020 in follow-up in the intensive care unit. He is currently sitting up in a chair at the bedside. Awake and alert in no acute distress. Currently maintaining O2 saturations in the 90s on 2 L/m per nasal cannula. No hemodialysis today. He is back on his Friday schedule. He remains on antibiotics in the form of Zosyn and az ithromycin. No IV fluids. 1200 mL fluid restriction. Today's labs are pending. Remains on albuterol and Spiriva. IV Decadron. Vitamin supplements. He is afebrile. Current heart rate 105. Chest x-ray showing improvement in the fluid volume overload. The patient is seen today 10/06/2020 in follow-up in the intensive care unit. He is awake and alert in no acute distress. He is maintaining O2 saturation in the 90s on room air. He is currently sitting up in a chair at the bedside. Plan is for hemodialysis today. Repeat CoVID 19 screen pending. Remains in atrial fibrillation with a controlled ventricular response. Heparin was discontinued due to decreasing platelets. Platelet count 28,000 today. We will DC Zosyn and azithromycin as well. Sputum culture positive for Ofelia only. Blood cultures reveal no growth. Chest x-ray stable. Some minimal patchy infiltrates unchanged. He is status post 1 unit of packed red blood cells. Current hemoglobin 8.1. Objective - Vital Signs Vital signs: Vital Signs Temp 97.7 F 10/06/20 08:00 Pulse 96 10/06/20 09:00 Resp 12 10/06/20 09:00 BP 149/79 10/06/20 09:00 Pulse Ox 94 L 10/06/20 09:00 Intake & Output 10/05/20 10/06/20 10/06/20 18:59 06:59 18:59 Intake Total 940 760 710 Output Total 75 0 0 Balance 865 760 710 Weight 98.2 kg Intake: IV 10 210 270 0.9 KVO 10 110 20 Azithromycin 500 mg In 250 Sodium Chloride 0.9% 250 ml @ 250 mls/hr IVPB DAILY NATHAN Rx#:[id number] Piperacillin-Tazobactam 3 100 .375 gm In Sodium Chloride 0.9% 100 ml @ 25 mls/hr IVPB Q12H NATHAN Rx# :[id number] Oral [phone] Output: Urine 75 0 0 Other: Voiding Method Urinal Urinal Urinal - Exam GENERAL EXAM: Alert, pleasant 59-year-old male patient, on room air, comfortable in no apparent distress. HEAD: Normocephalic/atraumatic. EYES: Normal reaction of pupils, equal size. Conjunctiva pink, sclera white. NOSE: Clear with pink turbinates. THROAT: No erythema or exudates. NECK: No masses, no JVD, no thyroid enlargement, no adenopathy. CHEST: No chest wall deformity. Symmetrical expansion. LUNGS: Equal air entry with no crackles, wheeze, rhonchi or dullness. CVS: Irregular rate and rhythm, normal S1 and S2, no gallops, no murmurs, no rubs. Currently tachycardic with a rate of 103 bpm ABDOMEN: Soft, nontender. No hepatosplenomegaly, normal bowel sounds, no guarding or rigidity. EXTREMITIES: No clubbing, trace pretibial edema, no cyanosis, 2+ pulses and upper and lower extremities. MUSCULOSKELETAL: Muscle strength and tone normal. SPINE: No scoliosis or deformity SKIN: No rashes CENTRAL NERVOUS SYSTEM: Alert and oriented -3. No focal deficits, tone is normal in all 4 extremities. PSYCHIATRIC: Alert and oriented -3. Appropriate affect. Intact judgment and insight. - Labs CBC & Chem 7: 10/06/20 03:56 10/06/20 03:56 Labs: Abnormal Lab Results - Last 24 Hours (Table) 10/05/20 10/05/20 10/05/20 Range/Units 09:20 11:33 12:04 RBC 2.52 L (4.30-5.90) m/uL Hgb 8.1 L (13.0-17.5) gm/dL Hct 25.0 L (39.0-53.0) % RDW 15.8 H (11.5-15.5) % Plt Count 36 L (150-450) k/uL Lymphocytes # 0.3 L (1.0-4.8) k/uL Sodium (137-145) mmol/L Carbon Dioxide (22-30) mmol/L BUN 65 H (9-20) mg/dL Creatinine 4.01 H (0.66-1.25) mg/dL Glucose 295 H (74-99) mg/dL POC Glucose (mg/dL) 240 H (75-99) mg/dL Calcium 6.9 L (8.4-10.2) mg/dL Phosphorus 5.2 H (2.5-4.5) mg/dL Alkaline Phosphatase 29 L (38-126) U/L Total Protein 5.6 L (6.3-8.2) g/dL Albumin 2.9 L (3.5-5.0) g/dL 10/05/20 10/05/20 10/06/20 Range/Units 17:21 20:29 03:56 RBC 2.50 L (4.30-5.90) m/uL Hgb 8.1 L (13.0-17.5) gm/dL Hct 24.6 L (39.0-53.0) % RDW 15.7 H (11.5-15.5) % Plt Count 28 L (150-450) k/uL Lymphocytes # 0.4 L (1.0-4.8) k/uL Sodium (137-145) mmol/L Carbon Dioxide (22-30) mmol/L BUN (9-20) mg/dL Creatinine (0.66-1.25) mg/dL Glucose (74-99) mg/dL POC Glucose (mg/dL) 133 H 375 H (75-99) mg/dL Calcium (8.4-10.2) mg/dL Phosphorus (2.5-4.5) mg/dL Alkaline Phosphatase (38-126) U/L Total Protein (6.3-8.2) g/dL Albumin (3.5-5.0) g/dL 10/06/20 10/06/20 Range/Units 03:56 06:55 RBC (4.30-5.90) m/uL Hgb (13.0-17.5) gm/dL Hct (39.0-53.0) % RDW (11.5-15.5) % Plt Count (150-450) k/uL Lymphocytes # (1.0-4.8) k/uL Sodium 136 L (137-145) mmol/L Carbon Dioxide 21 L (22-30) mmol/L BUN 96 H (9-20) mg/dL Creatinine 5.70 H (0.66-1.25) mg/dL Glucose 232 H (74-99) mg/dL POC Glucose (mg/dL) 214 H (75-99) mg/dL Calcium 6.7 L (8.4-10.2) mg/dL Phosphorus 6.1 H (2.5-4.5) mg/dL Alkaline Phosphatase (38-126) U/L Total Protein 5.3 L (6.3-8.2) g/dL Albumin 3.0 L (3.5-5.0) g/dL Microbiology - Last 24 Hours (Table) 10/03/20 21:18 Gram Stain - Final Sputum Sputum Culture - Final Ofelia albicans 10/02/20 10:38 Blood Culture - Preliminary Blood No Growth after 72 hours 10/02/20 10:02 Blood Culture - Preliminary Blood No Growth after 72 hours Assessment and Plan Assessment: 1 acute hypoxic respiratory failure on top of chronic respiratory failure and the patient is coming in with diffuse bilateral pulmonary infiltrates. Consider fluid overload that evolved over the past 3 days as the patient is less hemodialysis approximately 3 days ago. Consider superinfection/pneumonia including the possibility of hospital-acquired pneumonia. Unlikely to be related to Covid 19 related pneumonia progression yet cannot be completely ruled out. The patient has dense bilateral pulmonary infiltrates with obvious interval worsening over the past 3 days. 2 atrial fibrillation with RVR, has been switched to oral Cardizem from Cardizem drip, at times still tachycardic. Heparin infusion was stopped related to acute decrease in platelet count and anemia without signs of bleeding 3 hemoptysis, only related to fluid overload, pulmonary edema, and infectious etiology. Consider possibility of microalveolar bleeding related to recent history of Covid 19 pneumonia, heparin drip is on hold, today's platelet count is down to 35,000, patient does have history of chronic thrombocytopenia, liver disease, and history of chronic alcoholism 4 history of paroxysmal atrial fibrillation 5 acute thrombocytopenia after initiation of heparin infusion from 144,000 down to 44,000 and a drop in hemoglobin without obvious signs of bleeding, globin is 7.9 on today's labs 6 acute leukocytosis, improved 7 recent hospitalization for COVID 19 related pneumonia 8 history of hemoptysis 9 coronary artery disease with previous cardiac catheterization and stenting 10 COPD 11 obstructive sleep apnea, not utilizing any form of sleep machine on outpatient basis 12 previous history of CVA with right-sided weakness 13 diabetes mellitus type 2 14 hyperlipidemia 15 hypertension 16 and stage renal disease on hemodialysis MWF 17 chronic thrombocytopenia 18 depression 19 history of alcoholism with secondary chronic pancreatitis and previous history of portal hypertension and esophageal varices 20 History of prolonged ventilator dependent respiratory failure due to ARDS requiring tracheostomy tube insertion and subsequent removal 21 anemia of chronic disease Plan: The patient was seen and evaluated by Dr. Wharton Chest x-ray showing improvement, on room air Continues with thrombocytopenia His continue Zosyn and azithromycin Continue hemodialysis Friday Transfer out of the ICU today Follow-up CoVID 19 screen pending We will continue to follow I, the cosigning physician, performed a history & physical examination of the patient. Lungs sounds are clear. Maintaining good O2 saturations in the 90s on room air. I discussed the assessment and plan of care with my nurse prac titioner, Keila Paredes. I attest to the above note as dictated by her.
[2020-10-06 11:23] LABS: Glucose,Whole Blood 206 mg/dL (75-99)
--- NOTE | 2020-10-06 13:56 | P.PN ---
Subjective Progress Note Date: 10/06/20 HISTORY OF PRESENT ILLNESS This is a pleasant 59-year-old gentleman patient of Dr. Raza. He has underlying history of COPD chronic diastolic CHF and facial disease on hemodia lysis, diabetes type 2, hypertension, hyperlipidemia chronic pain, who was originally hospitalized September 04 to September 07 for hypoxemic respiratory failure and right lower lobe pneumonia secondary to CHF and COPD exacerbation. He was covered at that time. He comes back on September 25, for shortness of breath, and now diagnosed to have covered positive pneumonia left-sided. He presented with cytokine storm as well during that admission. His treatment at that time include Decadron 6 mg every 12 hours, followed by Dr. Wharton, also had atrial fibrillation, paroxysmal, for which anticoagulation has been held secondary to hemoptysis. he did not receive remdesivir during that that admission secondary to hemodialysis, end-stage renal failure, he was not hypoxemic at that time. He did not receive prominent bamlanivimab infusion either. She was discharged on dexamethasone 4 mg daily 5 days, Levaquin 500 milligrams 3 days every 48 hours, levalbuterol inhaler zinc and vitamin C. his last hemodialysis was approximately less than 3 days ago, He now comes in to emergency room with significant shortness of breath, this worsening dyspnea hypoxemia, required BiPAP treatment in the emergency room and is now transferred to ICU. [facility], O2 supplementation, IV antibiotics, chest x-ray emergency room shows worsening interval of the bilateral pulmonary infiltrates, also with bilateral pulmonary edema, IV antibiotics Zosyn, IV dexamethasone 6 mg every 6 hours, bronchodilators, consult with Dr. Garcia nephrology. Head admitting temperature was 99, heart rate 85-134, systolic blood pressure 85/68, current trend of 115/64, pulse ox 94% on BiPAP, 50% FiO2 2/9: Patient remains in intensive care unit. He developed A. fib with RVR and started on Cardizem drip currently controlled. Repeat chest x-ray reveals bilateral multifocal acute opacities with organizing consolidations in the lung bases consistent with covert 19 infection. No significant change. Patient has been seen by cardiology for persistent atrial fibrillation with poorly controlled rate. Plan is to continue beta tammy and calcium channel tammy. No further cardiac workup is planned. Patient is followed by pulmonary medicine. Patient's breathing is slightly improved from yesterday. CBC 6.2, hemoglobin 7.6, platelet count 56. Sodium 136, potassium 5.9, BUN 87 creatinine 5.11. Blood sugar 263. Blood cultures no growth at 24 hours. She complains of insomnia and melatonin added. 10/04: Patient remains in the intensive care unit. His breathing status seems to be stable at rest. Patient is having hemoptysis with dark sputum. No other signs of bleeding. Patient has been afebrile, heart rate 112, blood pressure 114/73, pulse ox 94% on 3 L nasal cannula. WBC 5, hemoglobin 6.7, platelet count 35. Sodium 136, potassium 5.2. BUN 75 and creatinine 4.52. Blood sugars running between 159 and 188. Blood cultures are no growth at 48 hours and sp utum cultures in progress. Chest x-ray reveals patchy bilateral airspace disease/pulmonary edema persists. Patient is followed by cardiology for persistent atrial fibrillation. Patient is not a candidate for ablation. 10/05: Patient remains in intensive care unit. He is followed by pulmonary med [place] closely. Repeat chest x-ray reveals correlate for resolving volume overload. Some left basilar atelectasis may be present. Atypical pulmonary edema could be considered. Patient is seen sitting up in a chair in his room. Physical exam was not performed today and defer to pulmonary medicine. He is on dialysis Friday schedule. He is on a 1200 mL fluid restriction. Patient has been afebrile, heart rate 105, blood pressure 133/67, pulse ox 97-100% on 2 L nasal cannula. Blood sugars are running anywhere between 193-295. Potassium is 4.9, BUN 65 and creatinine 4.01. 10/06: Repeat chest x-ray is stable findings. Repeat hemoglobin is 8.1, platelet count is 28. Sodium 136, CO2 21, BUN 96 and creatinine 5.7. Blood sugars are running anywhere between 133 and 375. Patient remains in the intensive care unit. He is scheduled for hemodialysis today. Pulmonary medicine has ordered repeat covert 19 screening. They have also discontinue Zosyn and azithromycin. Sputum culture is Ofelia only. Blood cultures are no growth. Initial for transfer out of ICU today. REVIEW OF SYSTEMS Constitutional: No fever, no chills, no night sweats. No weight change. No weakness, reports fatigue or lethargy. Reports daytime sleepiness. EENT: No headache. No blurred vision or double vision, no loss of vision. No loss of Hearing, no ringing in the ears, no dizziness. No nasal drainage or congestion. No epistaxis. No sore throat. Lungs: Reports shortness of breath probing, reports cough, no sputum production. No wheezing. Reports hemoptysis improving. Cardiovascular: No chest pain, no lower extremity edema. No palpitations. No paroxysmal nocturnal dyspnea. No orthopnea. No lightheadedness or dizziness. No syncopal episodes. Abdominal: No abdominal pain. No nausea, vomiting. No diarrhea. No constipation. No bloody or tarry stools.. No loss of appetite. Genitourinary: No dysuria, increased frequency, urgency. No urinary retention. Musculoskeletal: No myalgias. No muscle weakness, no gait dysfunction, no frequent falls. No back pain. No neck pain. Integumentary: No wounds, no lesions. No rash or pruritus. No unusual bruising. No change in hair or nails. Neurologic: No aphasia. No facial droop. No change in mentation. No head injury. No headache. No paralysis. No paresthesia. Psychiatric: No depression. No anxiety. No mood swings. Endocrine: No abnormal blood sugars. No weight change. No excessive sweating or thirst. No cold intolerance. PHYSICAL EXAMINATION Gen: This is a 59-year-old male. He is resting in recliner in his room and appears to be comfortable at rest. HEENT: Head is atraumatic, normocephalic. LUNGS: No intercostal retractions. Physical exam deferred due to COVID19 infection, ICU care ASSESSMENT AND PLAN #1. Acute hypoxic respiratory failure related to COVID 19 pneumonia bilateral worsening x-rays compared to previous, rule out possibility of bacterial pneumonia, on Decadron 6 mg along with bronchodilators. BiPAP treatments, MonitorContinue vitamin supplements. Pulmonary consult appreciated. #2. Sepsis, with acute respiratory distress, leukocytosis, tachycardia, hypotension present prior to admission bilateral lower lobe pneumonia, possible gram-negative pneumonia, fluid overload, and COPD Covid infection positive on 09/25/2020 did not qualify for Remdesivir secondary to end-stage renal disease hemodialysis, azithromycin and Zosyn discontinued, Continue Bumex 4 mg twice daily. #3. hx of paroxysmal afib, currently controlled. Continue Coreg. Patient not on anticoagu secondary to hemoptyisis, fluctation of platelets thrombocytopenia episode during last admisssion #4. History of coronary artery disease with catheterization and previous stenting #5 COPD on albuterol #6 elevated d-dimer. #7. History of CVA on aspirin and statin #8. Diabetes mellitus Levemir 12 units in the morning, Accu-Cheks before meals and at bedtime with NovoLog 10 units with meals and sliding scale #9. GERD/reflux on Protonix #10. Hyperlipidemia on Lipitor 80 mg at at bedtime #11. Essential hypertension on Norvasc 5 mg daily along with Coreg 12.5 mg twice a day Bumex 4 mg by mouth twice a day, Imdur 30 by mouth daily #12. End-stage renal disease on Friday hemodialysis, consult with nephrology. #13. Chronic thrombocytopenia, we'll continue to monitor labs currently [id number] #14. Severe depression, on Paxil 20 mg daily #15. Past history of chronic alcoholism with history of chronic pancreatitis #16. GI prophylaxis on Protonix #17. DVT prophylaxis. #18. Obstructive sleep apnea, and most recently patient CPAP machine was broken DISCHARGE PLAN Most likely return home. May require home oxygen therapy. Impression and plan of care have been directed as dictated by the signing physician. Iram Love nurse practitioner acting as scribe for signing physician. Objective - Vital Signs Vital signs: Vital Signs Temp 97.7 F 10/06/20 08:00 Pulse 96 10/06/20 09:00 Resp 12 10/06/20 09:00 BP 149/79 10/06/20 09:00 Pulse Ox 94 L 10/06/20 09:00 Intake & Output 10/05/20 10/06/20 10/06/20 18:59 06:59 18:59 Intake Total 940 760 710 Output Total 75 0 0 Balance 865 760 710 Weight 98.2 kg Intake: IV 10 210 270 0.9 KVO 10 110 20 Azithromycin 500 mg In 250 Sodium Chloride 0.9% 250 ml @ 250 mls/hr IVPB DAILY NATHAN Rx#:[id number] Piperacillin-Tazobactam 3 100 .375 gm In Sodium Chloride 0.9% 100 ml @ 25 mls/hr IVPB Q12H NATHAN Rx# :[id number] Oral 930 550 440 Output: Urine 75 0 0 Other: Voiding Method Urinal Urinal Urinal - Labs CBC & Chem 7: 10/06/20 03:56 10/06/20 03:56 Labs: Abnormal Lab Results - Last 24 Hours (Table) 10/05/20 10/05/20 10/05/20 Range/Units 09:20 11:33 12:04 RBC 2.52 L (4.30-5.90) m/uL Hgb 8.1 L (13.0-17.5) gm/dL Hct 25.0 L (39.0-53.0) % RDW 15.8 H (11.5-15.5) % Plt Count 36 L (150-450) k/uL Lymphocytes # 0.3 L (1.0-4.8) k/uL Sodium (137-145) mmol/L Carbon Dioxide (22-30) mmol/L BUN 65 H (9-20) mg/dL Creatinine 4.01 H (0.66-1.25) mg/dL Glucose 295 H (74-99) mg/dL POC Glucose (mg/dL) 240 H (75-99) mg/dL Calcium 6.9 L (8.4-10.2) mg/dL Phosphorus 5.2 H (2.5-4.5) mg/dL Alkaline Phosphatase 29 L (38-126) U/L Total Protein 5.6 L (6.3-8.2) g/dL Albumin 2.9 L (3.5-5.0) g/dL 10/05/20 10/05/20 10/06/20 Range/Units 17:21 20:29 03:56 RBC 2.50 L (4.30-5.90) m/uL Hgb 8.1 L (13.0-17.5) gm/dL Hct 24.6 L (39.0-53.0) % RDW 15.7 H (11.5-15.5) % Plt Count 28 L (150-450) k/uL Lymphocytes # 0.4 L (1.0-4.8) k/uL Sodium (137-145) mmol/L Carbon Dioxide (22-30) mmol/L BUN (9-20) mg/dL Creatinine (0.66-1.25) mg/dL Glucose (74-99) mg/dL POC Glucose (mg/dL) 133 H 375 H (75-99) mg/dL Calcium (8.4-10.2) mg/dL Phosphorus (2.5-4.5) mg/dL Alkaline Phosphatase (38-126) U/L Total Protein (6.3-8.2) g/dL Albumin (3.5-5.0) g/dL 10/06/20 10/06/20 Range/Units 03:56 06:55 RBC (4.30-5.90) m/uL Hgb (13.0-17.5) gm/dL Hct (39.0-53.0) % RDW (11.5-15.5) % Plt Count (150-450) k/uL Lymphocytes # (1.0-4.8) k/uL Sodium 136 L (137-145) mmol/L Carbon Dioxide 21 L (22-30) mmol/L BUN 96 H (9-20) mg/dL Creatinine 5.70 H (0.66-1.25) mg/dL Glucose 232 H (74-99) mg/dL POC Glucose (mg/dL) 214 H (75-99) mg/dL Calcium 6.7 L (8.4-10.2) mg/dL Phosphorus 6.1 H (2.5-4.5) mg/dL Alkaline Phosphatase (38-126) U/L Total Protein 5.3 L (6.3-8.2) g/dL Albumin 3.0 L (3.5-5.0) g/dL Microbiology - Last 24 Hours (Table) 10/03/20 21:18 Gram Stain - Final Sputum Sputum Culture - Final Ofelia albicans 10/02/20 10:38 Blood Culture - Preliminary Blood No Growth after 72 hours 10/02/20 10:02 Blood Culture - Preliminary Blood No Growth after 72 hours
[2020-10-06] MEDS: PANTOPRAZOLE 40 MG TABLET PO SCH (14:07)
--- NOTE | 2020-10-06 15:42 | PN ---
PROGRESS NOTE Patient is seen for followup for end-stage renal disease. He is currently seen on hemodialysis this morning, tolerating his treatment fairly okay. Patient states that he is feeling tired. PHYSICAL EXAMINATION: On examination today, blood pressure was 137/103, heart rate 99 per minute. He is afebrile. Examination shows evidence of edema, bilateral lower extremities. Abdomen is soft, nontender. GEOSPATIAL SCIENTIST exam is grossly intact. LABS: Hemoglobin 8.1, sodium 136, potassium 4.8, chloride 100, BUN 96, serum creatinine 5.7. Albumin is 3.0. ASSESSMENT: 1. End-stage renal disease, on hemodialysis on a Friday, Friday, Friday schedule. 2. Anemia; acute blood loss anemia. No active bleeding noted currently. Status post packed RBCs transfusion. Patient has underlying thrombocytopenia and was started on heparin, which was eventually discontinued. He is maintained on Aranesp as well. 3. Hyperkalemia associated with end-stage renal disease, increased potassium intake in diet, currently improved. 4. Volume overload. 5. Acute hypoxic respiratory failure secondary to volume overload and COVID-19 pneumonia. 6. Chronic thrombocytopenia secondary to bone marrow suppression, hypersplenism, history of EtOH abuse. Patient has been evaluated by Hematology previously. 7. Chronic kidney disease mineral bone disorder. PLAN: The patient is advised regarding fluid restriction. Increase the UF to about 3.5 L today as tolerated. Patient will not be able to go back to the [facility], as his PCR is positive. MMODL / IJN: [id number] /
[2020-10-06 17:13] LABS: Glucose,Whole Blood 225 mg/dL (75-99)
[2020-10-06 20:01] LABS: Glucose,Whole Blood 275 mg/dL (75-99)
[2020-10-06] MEDS: ASPIRIN 81 MG PO SCH (20:33)
[2020-10-06] MEDS: ARIPiprazole 5 MG TAB PO SCH (20:33)
[2020-10-06] MEDS: ATORVASTATIN 80 MG TAB PO SCH (20:33)
[2020-10-06] MEDS: PARoxetine 20 MG TAB PO SCH (20:34)
[2020-10-07] MEDS: ALBUTEROL HFA INHALER INHALATION SCH ×4 (02:40→20:04)
[2020-10-07] MEDS: MORPHINE SULFATE ER 30 MG TABLET PO SCH ×2 (03:30→12:21)
[2020-10-07] MEDS: HYDROcodone/APAP 10-325MG 1 EACH TAB PO SCH ×5 (03:30→17:51)
[2020-10-07 06:09] LABS: Anisocytosis Slight; Basophils % (A) 0 %; Eosinophils % (A) 0 %; HCT 25.8 % (39.0-53.0); HGB 8.6 gm/dL (13.0-17.5); Lymphocytes # (A) 0.4 k/uL (1.0-4.8); Lymphocytes % (A) 5 %; MCH 32.5 pg (25.0-35.0); MCHC 33.2 g/dL (31.0-37.0); MCV 97.9 fL (80.0-100.0); Macrocytosis Slight; Mean Platelet Volume 10.3; Monocytes # (A) 0.3 k/uL (0-1.0); Monocytes % (A) 4 %; Neutrophils # (A) 7.3 k/uL (1.3-7.7); Neutrophils % (A) 90 %; Poikilocytosis Slight; RBC 2.63 m/uL (4.30-5.90); RDW 16.1 % (11.5-15.5); WBC 8.1 k/uL (3.8-10.6)
[2020-10-07 06:24] LABS: Platelet Count 29 k/uL (150-450)
[2020-10-07 06:33] LABS: Calcium 7.2 mg/dL (8.4-10.2); Magnesium 2.2 mg/dL (1.6-2.3); Phosphorus 4.1 mg/dL (2.5-4.5); Potassium 5.1 mmol/L (3.5-5.1); Total Bilirubin 0.9 mg/dL (0.2-1.3); Total Protein 5.4 g/dL (6.3-8.2)
[2020-10-07 07:18] LABS: Glucose,Whole Blood 216 mg/dL (75-99)
[2020-10-07] MEDS: TIOTROPIUM 2.5 MCG INHALER INHALATION SCH (07:39)
[2020-10-07] MEDS: CALCIUM ACETATE 667 MG TAB PO SCH ×3 (08:12→17:51)
[2020-10-07] MEDS: ISOSORBIDE MONONITRATE ER 30 MG TAB.ER.24H PO SCH (08:13)
[2020-10-07] MEDS: INSULIN DETEMIR (LEVEMIR) 100 UNIT/ML SYR SQ SCH (08:13)
[2020-10-07] MEDS: INSULIN ASPART (NovoLOG) 100 UNIT/ML VIAL SQ SCH ×7 (08:13→21:45)
[2020-10-07] MEDS: ASCORBIC ACID 500 MG TAB PO SCH (08:13)
[2020-10-07] MEDS: ZINC SULFATE 220 MG CAP PO SCH (08:14)
[2020-10-07] MEDS: DEXAMETHASONE SOD PHOSPHATE 10 MG/ML 1 ML VIAL IV SCH (08:14)
[2020-10-07] MEDS: carvediloL 12.5 MG TAB PO SCH ×2 (08:14→21:44)
[2020-10-07] MEDS: CHOLECALCIFEROL 25 MCG (1000 IU) TABLET PO SCH (08:14)
[2020-10-07] MEDS: DILTIAZEM ORAL 30 MG TAB PO SCH ×3 (08:29→21:45)
[2020-10-07] MEDS: BUMETANIDE 1 MG TAB PO SCH ×2 (08:29→21:44)
--- NOTE | 2020-10-07 11:14 | P.PN ---
Subjective Patient is seen in follow-up for end-stage renal disease. He is maintained on hemodialysis on Friday schedule. Tolerated dialysis well yesterday. Currently on 2 L nasal cannula. Denies chest pain. Does complain of a productive cough. Vital signs are stable. General: The patient appeared well nourished and normally developed. HEENT: Head exam is unremarkable. Neck is without jugular venous distension. LUNGS: Breath sounds decreased. HEART: Rate and Rhythm are regular. ABDOMEN: Soft, nontender. EXTREMITITES: No edema. Objective - Vital Signs Vital signs: Vital Signs Temp 97.5 F L 10/07/20 10:45 Pulse 96 10/06/20 09:00 Resp 20 10/07/20 10:45 BP 148/78 10/07/20 10:25 Pulse Ox 93 L 10/07/20 10:45 Intake & Output 10/06/20 10/07/20 10/07/20 18:59 06:59 18:59 Intake Total 1130 220 Output Total 2000 0 Balance -870 0 220 Intake: IV 270 0.9 KVO 20 Azithromycin 500 mg In 250 Sodium Chloride 0.9% 250 ml @ 250 mls/hr IVPB DAILY NATHAN Rx#:[id number] Oral 860 220 Output: Urine 0 0 Other 1999 Other: Voiding Method Urinal Urinal Urinal # Voids 1 - Labs CBC & Chem 7: 10/07/20 05:45 10/07/20 05:45 Labs: Abnormal Lab Results - Last 24 Hours (Table) 10/05/20 10/06/20 10/06/20 Range/Units 10:45 11:21 17:11 RBC (4.30-5.90) m/uL Hgb (13.0-17.5) gm/dL Hct (39.0-53.0) % RDW (11.5-15.5) % Plt Count (150-450) k/uL Lymphocytes # (1.0-4.8) k/uL BUN (9-20) mg/dL Creatinine (0.66-1.25) mg/dL Glucose (74-99) mg/dL POC Glucose (mg/dL) 206 H 225 H (75-99) mg/dL Calcium (8.4-10.2) mg/dL Total Protein (6.3-8.2) g/dL Albumin (3.5-5.0) g/dL Coronavirus (PCR) Detected A (Not Detected) 10/06/20 10/07/20 10/07/20 Range/Units 19:59 05:45 05:45 RBC 2.63 L (4.30-5.90) m/uL Hgb 8.6 L (13.0-17.5) gm/dL Hct 25.8 L (39.0-53.0) % RDW 16.1 H (11.5-15.5) % Plt Count 29 L (150-450) k/uL Lymphocytes # 0.4 L (1.0-4.8) k/uL BUN 80 H (9-20) mg/dL Creatinine 5.07 H (0.66-1.25) mg/dL Glucose 204 H (74-99) mg/dL POC Glucose (mg/dL) 275 H (75-99) mg/dL Calcium 7.2 L (8.4-10.2) mg/dL Total Protein 5.4 L (6.3-8.2) g/dL Albumin 3.0 L (3.5-5.0) g/dL Coronavirus (PCR) (Not Detected) 10/07/20 Range/Units 07:06 RBC (4.30-5.90) m/uL Hgb (13.0-17.5) gm/dL Hct (39.0-53.0) % RDW (11.5-15.5) % Plt Count (150-450) k/uL Lymphocytes # (1.0-4.8) k/uL BUN (9-20) mg/dL Creatinine (0.66-1.25) mg/dL Glucose (74-99) mg/dL POC Glucose (mg/dL) 216 H (75-99) mg/dL Calcium (8.4-10.2) mg/dL Total Protein (6.3-8.2) g/dL Albumin (3.5-5.0) g/dL Coronavirus (PCR) (Not Detected) Microbiology - Last 24 Hours (Table) 10/02/20 10:38 Blood Culture - Preliminary Blood No Growth after 96 hours 10/02/20 10:02 Blood Culture - Preliminary Blood No Growth after 96 hours 10/03/20 21:18 Gram Stain - Final Sputum Sputum Culture - Final Ofelia albicans Assessment and Plan Plan: Assessment: 1. End-stage renal disease maintained on hemodialysis on Friday schedule. 2. Covid 19 pneumonia. Maintained on steroids and zinc. Currently on 2 L nasal cannula. 3. Chronic kidney disease mineral bone disease maintained on PhosLo. Phosphorus 4.1. 4. Anemia of chronic kidney disease maintained on Aranesp. 5. Diabetes mellitus. Plan: Hemodialysis on Friday. Outpatient dialysis being set up at a [facility] facility.
[2020-10-07 12:13] LABS: Glucose,Whole Blood 316 mg/dL (75-99)
--- NOTE | 2020-10-07 14:08 | P.PN ---
Subjective Progress Note Date: 10/07/20 59-year-old male patient came into the emergency department today because of worsening shortness of breath. The patient was in the hospital. He has multiple medical problems and comorbidities. He was diagnosed having coronavirus/Covid 19 related pneumonia approximately a week ago and he was treated on outpatient basis and upon discharge was asked to complete his course of Decadron and he was also given a course of Levaquin on outpatient basis. He has multiple issues including end-stage renal disease and his last hemodialysis was on Friday prior to him being discharged from the hospital. The patient came into the emergency department having worsening shortness of breath and cough and yellow sputum production and he did cough out some blood today. His shortness of breath was getting worse. No chest pain. He was feeling quite fatigued. He had some fever and chills. No major swelling lower extremities or upper extremities. He has and functional AV fistula in the right upper extremity. He was unable to speak long sentences and he was able to state only a few words in the emergency department. His chest x-ray showed diffuse bilateral pulmonary infiltration and his white cell count was at 25.2 and the hemoglobin was 10.3. Potassium level was at 6.1. BUN was 170 with a creatinine of 7.3. Glucose was 310. ProBNP level was 42,000. Bilirubin level was at 1.6. SGOT was 26, SGPT was 34. Alkaline phosphatase was 59. LDH was 713 and the CRP level was 60.5. The patient was placed on a BiPAP at a pressure of 12/5 cm of water and following that the patient got transferred to the intensive care unit. The patient was started on hemodialysis. He did have an echocardiogram during his most recent hospitalization and echocardiac Paxton showed a preserved LV function with an ejection fraction of 55% without any significant valvular abnormality. This was done on 09/05/2020. There was moderate concentric LVH. No pericardial effusion. No significant pulmonary hypertension. On 10/03/2020 patient seen in follow-up in the intensive care unit. Patient had a hemodialysis treatment yesterday would removal of 3 L of fluid. He is breathing easier today, he is satting 99% on 5 L, FiO2 was cut back to 3 L, lung sounds are diminished, no rhonchi or rales, occasional cough, sputum sample has not been collected yet, but occasionally the patient does bring up some jasso colo red phlegm. Overnight he developed atrial fibrillation with RVR, he does have paroxysmal A. fib history, however has not had A. fib in several months. She was started on Cardizem drip for rate control, currently remains in A. fib with a rate of 85-97 BPM. Blood pressure is stable 94/55. On heparin infusion per cardiology overnight however this morning's labs revealed platelet down to 44,000, 174,000 earlier in the day yesterday, and hemoglobin down to 7 with no obvious signs of bleeding. Abdomen is soft, no hematemesis, no melena, no hematochezia. This morning his blood work reviewed showing platelet count slightly better up to 56,000, hemoglobin is 7.6, white count is down to 6.2, amanuel byrnes remains on combination of antibiotics including azithromycin and Zosyn. Trace pretibial edema is present, renal profile has improved on today's labs, and creatinine down to 5.1, with BUN of 87 On 10/04/2020 patient seen in follow-up in intensive care unit. He is awake and alert, in no acute distress, he is on 3 L of oxygen pulse ox is 96%, his been afebrile, he is in atrial fibrillation, and his rate at times is so tachycardic up to 110 to 1:30 BPM, most that time she is at 90-100 bpm, heparin drip continues to be on hold, in view of acute drop in his platelet count and hemoglobin. Continues to have hemoptysis, he is bringing up some dark-colored sputum with old blood in it, no hematemesis, no dark or bloody stools. Blood pressure is stable, not requiring any vasopressor support, patient had hemodialysis yesterday with removal of 2.5 L of fluid, and had hemodialysis the day before would removal of 3 L of fluid, his lower extremity edema is improving, he is breathing easier, this chest x-ray has been reviewed showing patchy bilateral airspace disease/pulmonary edema and hypoventilatory changes. Patient has had no fever since admission, he is on azithromycin and Zosyn for antibiotic coverage, sputum cultures have been sent, and are pending at this time. Labs have been reviewed, hemoglobin is down to 6.7, white blood cell count was 5.0, his platelet count is 35,000, sodium is 136, potassium is 5.2, B1 is 75, creatinine is 4.52. Fluid restriction as he was drinking excessive amount of fluids including soda according to the nursing staff, is fairly comfortable right now, no altered mentation, answering questions appropriately, does not appear to be in any respiratory distress The patient is seen today for 2020 in follow-up in the intensive care unit. He is currently sitting up in a chair at the bedside. Awake and alert in no acute distress. Currently maintaining O2 saturations in the 90s on 2 L/m per nasal cannula. No hemodialysis today. He is back on his Friday schedule. He remains on antibiotics in the form of Zosyn and azithromycin. No IV fluids. 1200 mL fluid restriction. Today's labs are pending. Remains on albuterol and Spiriva. IV Decadron. Vitamin supplements. He is afebrile. Current heart rate 105. Chest x-ray showing improvement in the fluid volume overload. The patient is seen today 10/06/2020 in follow-up in the intensive care unit. He is awake and alert in no acute distress. He is maintaining O2 saturation in the 90s on room air. He is currently sitting up in a chair at the bedside. Alverto n is for hemodialysis today. Repeat CoVID 19 screen pending. Remains in atrial fibrillation with a controlled ventricular response. Heparin was discontinued due to decreasing platelets. Platelet count 28,000 today. We will DC Zosyn and azithromycin as well. Sputum culture positive for Ofelia only. Blood cultures reveal no growth. Chest x-ray stable. Some minimal patchy infiltrates unchan ged. He is status post 1 unit of packed red blood cells. Current hemoglobin 8.1. On 10/07/2020, the patient has been transferred out of the intensive care unit. No complaints. No shortness of breath. He is on room air oxygen. Sitting up on a chair., Comfortable. Utilizing incentive spirometer. He has been taken off the IV Zosyn and Zithromax. Blood cultures of been negative. No fever. No chills.In the low been stable at 8.6. BUN is at 80 with a creatinine of 5.07. No hemoptysis. Platelet count is also at 29 as the patient has chronic thrombocytopenia. Objective - Vital Signs Vital signs: Vital Signs Temp 97.5 F L 10/07/20 10:45 Pulse 96 10/06/20 09:00 Resp 20 10/07/20 10:45 BP 148/78 10/07/20 10:25 Pulse Ox 93 L 10/07/20 10:45 Intake & Output 10/06/20 10/07/20 10/07/20 18:59 06:59 18:59 Intake Total 1130 220 Output Total 2000 0 Balance -870 0 220 Intake: IV 270 0.9 KVO 20 Azithromycin 500 mg In 250 Sodium Chloride 0.9% 250 ml @ 250 mls/hr IVPB DAILY NATHAN Rx#:[id number] Oral 860 220 Output: Urine 0 0 Other 1999 Other: Voiding Method Urinal Urinal Urinal # Voids 1 - Exam GENERAL EXAM: Alert, pleasant 59-year-old male patient, on room air, com fortable in no apparent distress. HEAD: Normocephalic/atraumatic. EYES: Normal reaction of pupils, equal size. Conjunctiva pink, sclera white. NOSE: Clear with pink turbinates. THROAT: No erythema or exudates. NECK: No masses, no JVD, no thyroid enlargement, no adenopathy. CHEST: No chest wall deformity. Symmetrical expansion. LUNGS: Equal air entry with no crackles, wheeze, rhonchi or dullness. CVS: Irregular rate and rhythm, normal S1 and S2, no gallops, no murmurs, no rubs. Currently tachycardic with a rate of 103 bpm ABDOMEN: Soft, nontender. No hepatosplenomegaly, normal bowel sounds, no guarding or rigidity. EXTREMITIES: No clubbing, trace pretibial edema, no cyanosis, 2+ pulses and upper and lower extremities. MUSCULOSKELETAL: Muscle strength and tone normal. SPINE: No scoliosis or deformity SKIN: No rashes CENTRAL NERVOUS SYSTEM: Alert and oriented -3. No focal deficits, tone is normal in all 4 extremities. PSYCHIATRIC: Alert and oriented -3. Appropriate affect. Intact judgment and insight. - Labs CBC & Chem 7: 10/07/20 05:45 10/07/20 05:45 Labs: Abnormal Lab Results - Last 24 Hours (Table) 10/06/20 10/06/20 10/07/20 Range/Units 17:11 19:59 05:45 RBC 2.63 L (4.30-5.90) m/uL Hgb 8.6 L (13.0-17.5) gm/dL Hct 25.8 L (39.0-53.0) % RDW 16.1 H (11.5-15.5) % Plt Count 29 L (150-450) k/uL Lymphocytes # 0.4 L (1.0-4.8) k/uL BUN (9-20) mg/dL Creatinine (0.66-1.25) mg/dL Glucose (74-99) mg/dL POC Glucose (mg/dL) 225 H 275 H (75-99) mg/dL Calcium (8.4-10.2) mg/dL Total Protein (6.3-8.2) g/dL Albumin (3.5-5.0) g/dL 10/07/20 10/07/20 10/07/20 Range/Units 05:45 07:06 12:00 RBC (4.30-5.90) m/uL Hgb (13.0-17.5) gm/dL Hct (39.0-53.0) % RDW (11.5-15.5) % Plt Count (150-450) k/uL Lymphocytes # (1.0-4.8) k/uL BUN 80 H (9-20) mg/dL Creatinine 5.07 H (0.66-1.25) mg/dL Glucose 204 H (74-99) mg/dL POC Glucose (mg/dL) 216 H 316 H (75-99) mg/dL Calcium 7.2 L (8.4-10.2) mg/dL Total Protein 5.4 L (6.3-8.2) g/dL Albumin 3.0 L (3.5-5.0) g/dL Microbiology - Last 24 Hours (Table) 10/02/20 10:38 Blood Culture - Preliminary Blood No Growth after 120 hours 10/02/20 10:02 Blood Culture - Preliminary Blood No Growth after 120 hours Assessment and Plan Plan: 1 acute hypoxic respiratory failure on top of chronic respiratory failure and the patient is coming in with diffuse bilateral pulmonary infiltrates. Consider fluid overload that evolved over the past 3 days as the patient is less hemod ialysis approximately 3 days ago. Consider superinfection/pneumonia including the possibility of hospital-acquired pneumonia. Unlikely to be related to Covid 19 related pneumonia progression yet cannot be completely ruled out. The patient has dense bilateral pulmonary infiltrates with obvious interval worsening over the past 3 days. Overall condition improved and the chest x-ray also. Up and the patient is currently on room air oxygen. At that the patient off antibiotics. It's possible that he had some interstitial edema secondary to fluid overload in the setting of renal failure and improved with hemodialysis. It is also possible that he may have had some alveolar leading secondary to chronic thrombocytopenia as the patient was having some hemoptysis which ultimately cleared. His current platelet count is 29. 2 atrial fibrillation , currently on no anticoagulants, he suffers from chronic thrombocytopenia 3 hemoptysis, only related to fluid overload, pulmonary edema, and infectious etiology. Consider possibility of microalveolar bleeding related to recent history of Covid 19 pneumonia, heparin drip is on hold, today's platelet count is down to 35,000, patient does have history of chronic thrombocytopenia, liver disease, and history of chronic alcoholism 4 history of paroxysmal atrial fibrillation 5 acute thrombocytopenia after initiation of heparin infusion from 144,000 down to 44,000 and a drop in hemoglobin without obvious signs of bleeding, globin is 7.9 on today's labs 6 acute leukocytosis, improved 7 recent hospitalization for COVID 19 related pneumonia 8 history of hemoptysis 9 coronary artery disease with previous cardiac catheterization and stenting 10 COPD 11 obstructive sleep apnea, not utilizing any form of sleep machine on outpatient basis 12 previous history of CVA with right-sided weakness 13 diabetes mellitus type 2 14 hyperlipidemia 15 hypertension 16 and stage renal disease on hemodialysis MWF 17 chronic thrombocytopenia 18 depression 19 history of alcoholism with secondary chronic pancreatitis and previous history of portal hypertension and esophageal varices 20 History of prolonged ventilator dependent respiratory failure due to ARDS requiring tracheostomy tube insertion and subsequent removal 21 anemia of chronic disease Plan: The patient is stable on room air oxygen without having any shortness of breath Continue hemodialysis Friday, per nephrology Leave the rest of the management to medicine and we'll sign off the case and will see the patient on an as-needed basis.
--- NOTE | 2020-10-07 17:47 | P.PN ---
Subjective Progress Note Date: 10/07/20 This is a pleasant 59-year-old gentleman patient of Dr. Raza. He has underlying history of COPD chronic diastolic CHF and facial disease on hemodialysis, diabetes type 2, hypertension, hyperlipidemia chronic pain, who was originally hospitalized September 04 to September 07 for hypoxemic respiratory failure and right lower lobe pneumonia secondary to CHF and COPD exacerbation. He was covered at that time. He comes back on September 25, for shortness of breath, and now diagnosed to have covered positive pneumonia left-sided. He presented with cytokine storm as well during that admission. His treatment at that time include Decadron 6 mg every 12 hours, followed by Dr. Wharton, also had atrial fibrillation, paroxysmal, for which anticoagulation has been held secondary to hemoptysis. he did not receive remdesivir during that that admission secondary to hemodialysis, end-stage renal failure, he was not hypoxemic at that time. He did not receive prominent bamlanivimab infusion either. She was discharged on dexamethasone 4 mg daily 5 days, Levaquin 500 milligrams 3 days every 48 hours, levalbuterol inhaler zinc and vitamin C. his last hemodialysis was approximately less than 3 days ago, He now comes in to emergency room with significant shortness of breath, this worsening dyspnea hypoxemia, required BiPAP treatment in the emergency room and is now transferred to ICU. Consult with [facility] critical care pulmonary doctor, O2 supplementation, IV antibiotics, chest x-ray emergency room shows worsening interval of the bilateral pulmonary infiltrates, also with bilateral pulmonary edema, IV antibiotics Zosyn, IV dexamethasone 6 mg every 6 hours, bronchodilators, consult with Dr. Garcia nephrology. Head admitting temperature was 99, heart rate 85-134, systolic blood pressure 85/68, current trend of 115/64, pulse ox 94% on BiPAP, 50% FiO2 2/9: Patient remains in intensive care unit. He developed A. fib with RVR and started on Cardizem drip currently controlled. Repeat chest x-ray reveals bilateral multifocal acute opacities with organizing consolidations in the lung bases consistent with covert 19 infection. No significant change. Patient has been seen by cardiology for persistent atrial fibrillation with poorly controlled rate. Plan is to continue beta tammy and calcium channel tammy. No further cardiac workup is planned. Patient is followed by pulmonary medicine. Patient's breathing is slightly improved from yesterday. CBC 6.2, hemoglobin 7.6, platelet count 56. Sodium 136, potassium 5.9, BUN 87 creatinine 5.11. Blood sugar 263. Blood cultures no growth at 24 hours. She complains of insomnia and melatonin added. 10/04: Patient remains in the intensive care unit. His breathing status seems to be stable at rest. Patient is having hemoptysis with dark sputum. No other signs of bleeding. Patient has been afebrile, heart rate 112, blood pressure 114/73, pulse ox 94% on 3 L nasal cannula. WBC 5, hemoglobin 6.7, platelet count 35. Sodium 136, potassium 5.2. BUN 75 and creatinine 4.52. Blood sugars running between 159 and 188. Blood cultures are no growth at 48 hours and sputum cultures in progress. Chest x-ray reveals patchy bilateral airspace disease/pulmonary edema persists. Patient is followed by cardiology for persi stent atrial fibrillation. Patient is not a candidate for ablation. 10/05: Patient remains in intensive care unit. He is followed by pulmonary medicine closely. Repeat chest x-ray reveals correlate for resolving volume overload. Some left basilar atelectasis may be present. Atypical pulmonary e shahriar could be considered. Patient is seen sitting up in a chair in his room. Physical exam was not performed today and defer to pulmonary medicine. He is on dialysis Friday schedule. He is on a 1200 mL fluid restriction. Patient has been afebrile, heart rate 105, blood pressure 133/67, pulse ox 97-100% on 2 L nasal cannula. Blood sugars are running anywhere between 193-295. Potassium is 4.9, BUN 65 and creatinine 4.01. 10/06: Repeat chest x-ray is stable findings. Repeat hemoglobin is 8.1, platelet count is 28. Sodium 136, CO2 21, BUN 96 and creatinine 5.7. Blood sugars are running anywhere between 133 and 375. Patient remains in the intensive care unit. He is scheduled for hemodialysis today. Pulmonary medicine has ordered repeat covert 19 screening. They have also discontinue Zosyn and azithromycin. Sputum culture is Ofelia only. Blood cultures are no growth. Initial for transfer out of ICU today. 10/07: Patient currently is in the medical cold floor, O2 now at [address], patient is drifting off to sleep when seen, however he slept well last night. Patient thinks this is related to [place], and pain medications. Patient does not have any nausea vomiting diarrhea, still has diminished appetite, no fever no chills, pulse oximetry is getting better, currently at 98% room air, still with azotemia, creatinine 5.07, BUN 80, platelet 29, hemoglobin 8.6 , on aranesp, blood sugars are more elevated between 200-350, we will increase Levemir to 18 units, A1c 09/25/2020 is 6.1. REVIEW OF SYSTEMS Constitutional: No fever, no chills, no night sweats. No weight change. No weakness, reports fatigue or lethargy. Reports daytime sleepiness. EENT: No headache. No blurred vision or double vision, no loss of vision. No loss of Hearing, no ringing in the ears, no dizziness. No nasal drainage or congestion. No epistaxis. No sore throat. Lungs: Reports shortness of breath probing, reports cough, no sputum production. No wheezing. Reports hemoptysis improving. Cardiovascular: No chest pain, no lower extremity edema. No palpitations. No paroxysmal nocturnal dyspnea. No orthopnea. No lightheadedness or dizziness. No syncopal episodes. Abdominal: No abdominal pain. No nausea, vomiting. No diarrhea. No c onstipation. No bloody or tarry stools.. No loss of appetite. Genitourinary: No dysuria, increased frequency, urgency. No urinary retention. Musculoskeletal: No myalgias. No muscle weakness, no gait dysfunction, no frequent falls. No back pain. No neck pain. Integumentary: No wounds, no lesions. No rash or pruritus. No unusual bruising. No change in hair or nails. Neurologic: No aphasia. No facial droop. No change in mentation. No head injury. No headache. No paralysis. No paresthesia. Psychiatric: No depression. No anxiety. No mood swings. Endocrine: No abnormal blood sugars. No weight change. No excessive sweating or thirst. No cold intolerance. Objective - Vital Signs Vital signs: Vital Signs Temp 98.3 F 10/07/20 14:00 Pulse 105 H 10/07/20 14:00 Resp 16 10/07/20 14:00 BP 134/64 10/07/20 14:00 Pulse Ox 98 10/07/20 14:00 Intake & Output 10/06/20 10/07/20 10/07/20 18:59 06:59 18:59 Intake Total 1130 220 Output Total 2000 0 Balance -870 0 220 Intake: IV 270 0.9 KVO 20 Azithromycin 500 mg In 250 Sodium Chloride 0.9% 250 ml @ 250 mls/hr IVPB DAILY NATHAN Rx#:[id number] Oral 860 220 Output: Urine 0 0 Other 1999 Other: Voiding Method Urinal Urinal Urinal # Voids 1 - Labs CBC & Chem 7: 10/07/20 05:45 10/07/20 05:45 Labs: Abnormal Lab Results - Last 24 Hours (Table) 10/06/20 10/07/20 10/07/20 Range/Units 19:59 05:45 05:45 RBC 2.63 L (4.30-5.90) m/uL Hgb 8.6 L (13.0-17.5) gm/dL Hct 25.8 L (39.0-53.0) % RDW 16.1 H (11.5-15.5) % Plt Count 29 L (150-450) k/uL Lymphocytes # 0.4 L (1.0-4.8) k/uL BUN 80 H (9-20) mg/dL Creatinine 5.07 H (0.66-1.25) mg/dL Glucose 204 H (74-99) mg/dL POC Glucose (mg/dL) 275 H (75-99) mg/dL Calcium 7.2 L (8.4-10.2) mg/dL Total Protein 5.4 L (6.3-8.2) g/dL Albumin 3.0 L (3.5-5.0) g/dL 10/07/20 10/07/20 Range/Units 07:06 12:00 RBC (4.30-5.90) m/uL Hgb (13.0-17.5) gm/dL Hct (39.0-53.0) % RDW (11.5-15.5) % Plt Count (150-450) k/uL Lymphocytes # (1.0-4.8) k/uL BUN (9-20) mg/dL Creatinine (0.66-1.25) mg/dL Glucose (74-99) mg/dL POC Glucose (mg/dL) 216 H 316 H (75-99) mg/dL Calcium (8.4-10.2) mg/dL Total Protein (6.3-8.2) g/dL Albumin (3.5-5.0) g/dL Microbiology - Last 24 Hours (Table) 10/02/20 10:38 Blood Culture - Preliminary Blood No Growth after 120 hours 10/02/20 10:02 Blood Culture - Preliminary Blood No Growth after 120 hours Assessment and Plan Plan: #1. Acute hypoxic respiratory failure improving related to COVID 19 pneumonia bilateral worsening x-rays compared to previous, rule out possibility of bacterial pneumonia, on Decadron 6 mg along with bronchodilators. BiPAP treatm ents, MonitorContinue vitamin supplements. Pulmonary consult appreciated. #2. Sepsis, with acute respiratory distress, leukocytosis, tachycardia, hypotension present prior to admission bilateral lower lobe pneumonia, possible gram-negative pneumonia, fluid overload, and COPD Covid infection positive on 09/25/2020 did not qualify for Remdesivir secondary to end-stage renal disease hemodialysis, azithromycin and Zosyn discontinued, Continue Bumex 4 mg twice daily. #3. hx of paroxysmal afib, currently controlled. Continue Coreg. Patient not on anticoagu secondary to hemoptyisis, fluctation of platelets thrombocytopenia episode during last admisssion #4. History of coronary artery disease with catheterization and previous stenting #5 COPD on albuterol #6 elevated d-dimer. #7. History of CVA on aspirin and statin #8. Diabetes mellitus type II, last A1c 6.1, 09/25/2020 has chemical hyperglycemia as well Levemir 12 increased to 18 units units in the morning, Accu-Cheks before meals and at bedtime with NovoLog 20 units with meals and sliding scale #9. GERD/reflux on Protonix #10. Hyperlipidemia on Lipitor 80 mg at at bedtime #11. Essential hypertension on Norvasc 5 mg daily along with Coreg 12.5 mg twice a day Bumex 4 mg by mouth twice a day, Imdur 30 by mouth daily #12. End-stage renal disease on Friday hemodialysis, consult with nephrology. #13. Chronic thrombocytopenia, we'll continue to monitor labs currently [id number] #14. Severe depression, on Paxil 20 mg daily #15. Past history of chronic alcoholism with history of chronic pancreatitis #16. GI prophylaxis on Protonix #17. DVT prophylaxis. #18. Obstructive sleep apnea, and most recently patient CPAP machine was broken DISCHARGE PLAN Most likely return home. May require home oxygen therapy.
[2020-10-07 17:51] LABS: Glucose,Whole Blood 243 mg/dL (75-99)
[2020-10-07] MEDS: PANTOPRAZOLE 40 MG TABLET PO SCH (17:51)
[2020-10-07 20:11] LABS: Glucose,Whole Blood 278 mg/dL (75-99)
[2020-10-07] MEDS: ATORVASTATIN 80 MG TAB PO SCH (21:44)
[2020-10-07] MEDS: ASPIRIN 81 MG PO SCH (21:44)
[2020-10-07] MEDS: PARoxetine 20 MG TAB PO SCH (21:44)
[2020-10-07] MEDS: ARIPiprazole 5 MG TAB PO SCH (21:52)
[2020-10-08] MEDS: HYDROcodone/APAP 10-325MG 1 EACH TAB PO SCH ×7 (00:06→20:07)
[2020-10-08] MEDS: ALBUTEROL HFA INHALER INHALATION SCH ×4 (01:51→20:36)
[2020-10-08] MEDS: MORPHINE SULFATE ER 30 MG TABLET PO SCH ×2 (01:52→12:32)
[2020-10-08 07:16] LABS: Glucose,Whole Blood 182 mg/dL (75-99)
[2020-10-08] MEDS: TIOTROPIUM 2.5 MCG INHALER INHALATION SCH (07:42)
[2020-10-08] MEDS: BUMETANIDE 1 MG TAB PO SCH ×2 (08:06→20:06)
[2020-10-08] MEDS: ISOSORBIDE MONONITRATE ER 30 MG TAB.ER.24H PO SCH (08:06)
[2020-10-08] MEDS: ZINC SULFATE 220 MG CAP PO SCH (08:06)
[2020-10-08] MEDS: DILTIAZEM ORAL 30 MG TAB PO SCH ×3 (08:06→21:47)
[2020-10-08] MEDS: ASCORBIC ACID 500 MG TAB PO SCH (08:06)
[2020-10-08] MEDS: CHOLECALCIFEROL 25 MCG (1000 IU) TABLET PO SCH (08:06)
[2020-10-08] MEDS: CALCIUM ACETATE 667 MG TAB PO SCH ×3 (08:06→17:18)
[2020-10-08] MEDS: PANTOPRAZOLE 40 MG TABLET PO SCH (08:07)
[2020-10-08] MEDS: carvediloL 12.5 MG TAB PO SCH ×2 (08:07→20:06)
[2020-10-08] MEDS: DEXAMETHASONE SOD PHOSPHATE 10 MG/ML 1 ML VIAL IV SCH (08:07)
[2020-10-08] MEDS: INSULIN ASPART (NovoLOG) 100 UNIT/ML VIAL SQ SCH ×8 (08:07→20:07)
[2020-10-08] MEDS: INSULIN DETEMIR (LEVEMIR) 100 UNIT/ML SYR SQ SCH (08:07)
--- NOTE | 2020-10-08 09:39 | P.PN ---
Subjective Patient is seen in follow-up for end-stage renal disease. He is maintained on hemodialysis on Friday schedule. Currently off oxygen. Denies active chest pain or shortness of breath. No cough. Vital signs are stable. General: The patient appeared well nourished and normally developed. HEENT: Head exam is unremarkable. Neck is without jugular venous distension. LUNGS: Breath sounds decreased. HEART: Rate and Rhythm are regular. ABDOMEN: Soft, nontender. EXTREMITITES: No edema. Objective - Vital Signs Vital signs: Vital Signs Temp 97.9 F 10/08/20 05:45 Pulse 91 10/08/20 05:45 Resp 18 10/08/20 05:45 BP 148/84 10/08/20 05:45 Pulse Ox 95 10/08/20 05:45 Intake & Output 10/07/20 10/08/20 10/08/20 18:59 06:59 18:59 Intake Total 220 Balance 220 Weight 104.4 kg Intake: Oral 220 Other: Voiding Method Urinal # Voids 3 2 - Labs CBC & Chem 7: 10/07/20 05:45 10/07/20 05:45 Labs: Abnormal Lab Results - Last 24 Hours (Table) 10/07/20 10/07/20 10/07/20 Range/Units 12:00 17:25 20:10 POC Glucose (mg/dL) 316 H 243 H 278 H (75-99) mg/dL 10/08/20 Range/Units 07:12 POC Glucose (mg/dL) 182 H (75-99) mg/dL Microbiology - Last 24 Hours (Table) 10/02/20 10:38 Blood Culture - Preliminary Blood No Growth after 120 hours 10/02/20 10:02 Blood Culture - Preliminary Blood No Growth after 120 hours Assessment and Plan Plan: Assessment: 1. End-stage renal disease maintained on hemodialysis on Friday schedule. 2. Covid 19 pneumonia. Maintained on steroids and zinc. Currently off oxygen. 3. Chronic kidney disease mineral bone disease maintained on PhosLo. Phosphorus 4.1. 4. Anemia of chronic kidney disease maintained on Aranesp. 5. Diabetes mellitus. Plan: Hemodialysis on Friday. Outpatient dialysis being set up at a [facility] facility.
[2020-10-08 11:51] LABS: Glucose,Whole Blood 242 mg/dL (75-99)
--- NOTE | 2020-10-08 15:14 | P.PN ---
Subjective Progress Note Date: 10/08/20 This is a pleasant 59-year-old gentleman patient of Dr. Raza. He has underlying history of COPD chronic diastolic CHF and facial disease on hemodialysis, diabetes type 2, hypertension, hyperlipidemia chronic pain, who was originally hospitalized September 04 to September 07 for hypoxemic respiratory failure and right lower lobe pneumonia secondary to CHF and COPD exacerbation. He was covered at that time. He comes back on September 25, for shortness of breath, and now diagnosed to have covered positive pneumonia left-sided. He presented with cytokine storm as well during that admission. His treatment at that time include Decadron 6 mg every 12 hours, followed by Dr. Wharton, also had atrial fibrillation, paroxysmal, for which anticoagulation has been held secondary to hemoptysis. he did not receive remdesivir during that that admission secondary to hemodialysis, end-stage renal failure, he was not hypoxemic at that time. He did not receive prominent bamlanivimab infusion either. She was discharged on dexamethasone 4 mg daily 5 days, Levaquin 500 milligrams 3 days every 48 hours, levalbuterol inhaler zinc and vitamin C. his last hemodialysis was approximately less than 3 days ago, He now comes in to emergency room with significant shortness of breath, this worsening dyspnea hypoxemia, required BiPAP treatment in the emergency room and is now transferred to ICU. Consult with [facility] critical care pulmonary doctor, O2 supplementation, IV antibiotics, chest x-ray emergency room shows worsening interval of the bilateral pulmonary infiltrates, also with bilateral pulmonary edema, IV antibiotics Zosyn, IV dexamethasone 6 mg every 6 hours, bronchodilators, consult with Dr. Garcia nephrology. Head admitting temperature was 99, heart rate 85-134, systolic blood pressure 85/68, current trend of 115/64, pulse ox 94% on BiPAP, 50% FiO2 2/9: Patient remains in intensive care unit. He developed A. fib with RVR and started on Cardizem drip currently controlled. Repeat chest x-ray reveals bilateral multifocal acute opacities with organizing consolidations in the lung bases consistent with covert 19 infection. No significant change. Patient has been seen by cardiology for persistent atrial fibrillation with poorly controlled rate. Plan is to continue beta tammy and calcium channel tammy. No further cardiac workup is planned. Patient is followed by pulmonary medicine. Patient's breathing is slightly improved from yesterday. CBC 6.2, hemoglobin 7.6, platelet count 56. Sodium 136, potassium 5.9, BUN 87 creatinine 5.11. Blood sugar 263. Blood cultures no growth at 24 hours. She complains of insomnia and melatonin added. 10/04: Patient remains in the intensive care unit. His breathing status seems to be stable at rest. Patient is having hemoptysis with dark sputum. No other signs of bleeding. Patient has been afebrile, heart rate 112, blood pressure 114/73, pulse ox 94% on 3 L nasal cannula. WBC 5, hemoglobin 6.7, platelet count 35. Sodium 136, potassium 5.2. BUN 75 and creatinine 4.52. Blood sugars running between 159 and 188. Blood cultures are no growth at 48 hours and sputum cultures in progress. Chest x-ray reveals patchy bilateral airspace disease/pulmonary edema persists. Patient is followed by cardiology for persi stent atrial fibrillation. Patient is not a candidate for ablation. 10/05: Patient remains in intensive care unit. He is followed by pulmonary medicine closely. Repeat chest x-ray reveals correlate for resolving volume overload. Some left basilar atelectasis may be present. Atypical pulmonary e shahriar could be considered. Patient is seen sitting up in a chair in his room. Physical exam was not performed today and defer to pulmonary medicine. He is on dialysis Friday schedule. He is on a 1200 mL fluid restriction. Patient has been afebrile, heart rate 105, blood pressure 133/67, pulse ox 97-100% on 2 L nasal cannula. Blood sugars are running anywhere between 193-295. Potassium is 4.9, BUN 65 and creatinine 4.01. 10/06: Repeat chest x-ray is stable findings. Repeat hemoglobin is 8.1, platelet count is 28. Sodium 136, CO2 21, BUN 96 and creatinine 5.7. Blood sugars are running anywhere between 133 and 375. Patient remains in the intensive care unit. He is scheduled for hemodialysis today. Pulmonary medicine has ordered repeat covert 19 screening. They have also discontinue Zosyn and azithromycin. Sputum culture is [place] only. Blood cultures are no growth. Initial for transfer out of ICU today. 10/07: Patient currently is in the medical cold floor, O2 now at [address], patient is drifting off to sleep when seen, however he slept well last night. Patient thinks this is related to [place], and pain medications. Patient does not have any nausea vomiting diarrhea, still has diminished appetite, no fever no chills, pulse oximetry is getting better, currently at 98% room air, still with azotemia, creatinine 5.07, BUN 80, platelet 29, hemoglobin 8.6 , on aranesp, blood sugars are more elevated between 200-350, we will increase Levemir to 18 units, A1c 09/25/2020 is 6.1. 10/08 patient's doing much better, however he feels drowsy with broken sleep, appetite is much better, has no nausea no vomiting, no lightheadedness no dizziness, he would be scheduled for dialysis tomorrow Friday, however she would need dialysis outpatient that is [facility] facility, we'll going to repeat a Covid swab today, this would be his day of illness this would facilitate the decision to get a dialysis chair time REVIEW OF SYSTEMS Constitutional: No fever, no chills, no night sweats. No weight change. No weakness, reports fatigue or lethargy. Reports daytime sleepiness. EENT: No headache. No blurred vision or double vision, no loss of vision. No loss of Hearing, no ringing in the ears, no dizziness. No nasal drainage or congestion. No epistaxis. No sore throat. Lungs: Reports shortness of breath probing, reports cough, no sputum production. No wheezing. Reports hemoptysis improving. Cardiovascular: No chest pain, no lower extremity edema. No palpitations. No paroxysmal nocturnal dyspnea. No orthopnea. No lightheadedness or dizziness. No syncopal episodes. Abdominal: No abdominal pain. No nausea, vomiting. No diarrhea. No constipation. No bloody or tarry stools.. No loss of appetite. Genitourinary: No dysuria, increased frequency, urgency. No urinary retention. Musculoskeletal: No myalgias. No muscle weakness, no gait dysfunction, no frequent falls. No back pain. No neck pain. Integumentary: No wounds, no lesions. No rash or pruritus. No unusual bruising. No change in hair or nails. Neurologic: No aphasia. No facial droop. No change in mentation. No head injury. No headache. No paralysis. No paresthesia. Psychiatric: No depression. No anxiety. No mood swings. Endocrine: No abnormal blood sugars. No weight change. No excessive sweating or thirst. No cold intolerance. Objective - Vital Signs Vital signs: Vital Signs Temp 97.8 F 10/08/20 10:00 Pulse 93 10/08/20 10:00 Resp 20 10/08/20 10:00 BP 145/74 10/08/20 10:00 Pulse Ox 96 10/08/20 10:00 Intake & Output 10/07/20 10/08/20 10/08/20 18:59 06:59 18:59 Intake Total 220 Balance 220 Weight 104.4 kg Intake: Oral 220 Other: Voiding Method Urinal # Voids 3 2 - Constitutional General appearance: Present: cooperative, no acute distress - EENT Eyes: Present: EOMI, PERRLA, dentition normal ENT: Present: NA/AT, normal oropharynx - Respiratory Respiratory: bilateral: CTA, negative: diminished, dullness, rales, rhonchi - Cardiovascular Rhythm: regular Heart sounds: normal: S1, S2 Abnormal Heart Sounds: Absent: systolic murmur, diastolic murmur, rub, S3 Gallop, S4 Gallop, click, other - Gastrointestinal General gastrointestinal: Present: normal bowel sounds, soft - Integumentary Integumentary: Present: normal - Neurologic Neurologic: Present: CNII-XII intact - Musculoskeletal Musculoskeletal: Present: gait normal, strength equal bilaterally - Psychiatric Psychiatric: Present: A&O x's 3, appropriate affect - Labs CBC & Chem 7: 10/07/20 05:45 10/07/20 05:45 Labs: Abnormal Lab Results - Last 24 Hours (Table) 10/07/20 10/07/20 10/08/20 Range/Units 17:25 20:10 07:12 POC Glucose (mg/dL) 243 H 278 H 182 H (75-99) mg/dL 10/08/20 Range/Units 11:44 POC Glucose (mg/dL) 242 H (75-99) mg/dL Microbiology - Last 24 Hours (Table) 10/02/20 10:38 Blood Culture - Final Blood No Growth after 144 hours 10/02/20 10:02 Blood Culture - Final Blood No Growth after 144 hours Assessment and Plan Plan: #1. Acute hypoxic respiratory failure improving related to COVID 19 pneumonia bilateral worsening x-rays compared to previous, rule out possibility of bacterial pneumonia, on Decadron 6 mg along with bronchodilators. BiPAP treatments, MonitorContinue vitamin supplements. Pulmonary consult appreciated. #2. Sepsis, with acute respiratory distress, leukocytosis, tachycardia, hypotension present prior to admission bilateral lower lobe pneumonia, possible gram-negative pneumonia, fluid overload, and COPD Covid infection positive on 09/25/2020 did not qualify for Remdesivir secondary to end-stage renal disease hemodialysis, azithromycin and Zosyn discontinued, Continue Bumex 4 mg twice daily. #3. hx of paroxysmal afib, currently controlled. Continue Coreg. Patient not on anticoagu secondary to hemoptyisis, fluctation of platelets thrombocytopenia episode during last admisssion #4. History of coronary artery disease with catheterization and previous stenting #5 COPD on albuterol #6 elevated d-dimer. #7. History of CVA on aspirin and statin #8. Diabetes mellitus type II, last A1c 6.1, 09/25/2020 has chemical hyperglycemia as well Levemir 12 increased to 18 units units in the morning, Accu-Cheks before meals and at bedtime with NovoLog 20 units with meals and sliding scale #9. GERD/reflux on Protonix #10. Hyperlipidemia on Lipitor 80 mg at at bedtime #11. Essential hypertension on Norvasc 5 mg daily along with Coreg 12.5 mg twice a day Bumex 4 mg by mouth twice a day, Imdur 30 by mouth daily #12. End-stage renal disease on Friday hemodialysis, consult with nephrology. #13. Chronic thrombocytopenia, we'll continue to monitor labs currently [id number] #14. Severe depression, on Paxil 20 mg daily #15. Past history of chronic alcoholism with history of chronic pancreatitis #16. GI prophylaxis on Protonix #17. DVT prophylaxis. #18. Obstructive sleep apnea, and most recently patient CPAP machine was broken DISCHARGE PLAN Most likely return home however would require a different dialysis chair time secondary to current Covid. May require home oxygen therapy.
[2020-10-08 17:39] LABS: Glucose,Whole Blood 164 mg/dL (75-99)
[2020-10-08 19:58] LABS: Glucose,Whole Blood 226 mg/dL (75-99)
[2020-10-08] MEDS: ARIPiprazole 5 MG TAB PO SCH (20:06)
[2020-10-08] MEDS: ASPIRIN 81 MG PO SCH (20:06)
[2020-10-08] MEDS: PARoxetine 20 MG TAB PO SCH (20:06)
[2020-10-08] MEDS: ATORVASTATIN 80 MG TAB PO SCH (20:06)
[2020-10-09] MEDS: ALBUTEROL HFA INHALER INHALATION SCH ×3 (01:15→13:06)
[2020-10-09] MEDS: HYDROcodone/APAP 10-325MG 1 EACH TAB PO SCH ×4 (03:35→12:24)
[2020-10-09] MEDS: MORPHINE SULFATE ER 30 MG TABLET PO SCH ×2 (03:35→12:51)
[2020-10-09 07:33] LABS: Glucose,Whole Blood 236 mg/dL (75-99)
[2020-10-09] MEDS: TIOTROPIUM 2.5 MCG INHALER INHALATION SCH (07:40)
[2020-10-09] MEDS: INSULIN DETEMIR (LEVEMIR) 100 UNIT/ML SYR SQ SCH (08:46)
[2020-10-09] MEDS: INSULIN ASPART (NovoLOG) 100 UNIT/ML VIAL SQ SCH ×4 (08:47→12:56)
[2020-10-09] MEDS: ISOSORBIDE MONONITRATE ER 30 MG TAB.ER.24H PO SCH (08:47)
[2020-10-09] MEDS: ZINC SULFATE 220 MG CAP PO SCH (08:47)
[2020-10-09] MEDS: carvediloL 12.5 MG TAB PO SCH (08:47)
[2020-10-09] MEDS: ASCORBIC ACID 500 MG TAB PO SCH (08:47)
[2020-10-09] MEDS: DILTIAZEM ORAL 30 MG TAB PO SCH (08:48)
[2020-10-09] MEDS: CHOLECALCIFEROL 25 MCG (1000 IU) TABLET PO SCH (08:48)
[2020-10-09] MEDS: BUMETANIDE 1 MG TAB PO SCH (08:49)
[2020-10-09] MEDS: DEXAMETHASONE SOD PHOSPHATE 10 MG/ML 1 ML VIAL IV SCH (08:49)
[2020-10-09] MEDS: CALCIUM ACETATE 667 MG TAB PO SCH ×2 (08:50→12:54)
[2020-10-09 11:39] LABS: Glucose,Whole Blood 228 mg/dL (75-99)
--- NOTE | 2020-10-09 12:02 | P.PN ---
Subjective Patient is seen in follow-up for end-stage renal disease. He is maintained on hemodialysis on Friday schedule. Currently off oxygen. Denies active chest pain or shortness of breath. No cough. Tolerating dialysis well. Vital signs are stable. General: The patient appeared well nourished and normally developed. HEENT: Head exam is unremarkable. Neck is without jugular venous distension. LUNGS: Breath sounds decreased. HEART: Rate and Rhythm are regular. ABDOMEN: Soft, nontender. EXTREMITITES: No edema. Objective - Vital Signs Vital signs: Vital Signs Temp 97.5 F L 10/09/20 10:01 Pulse 71 10/09/20 10:01 Resp 18 10/09/20 10:01 BP 142/72 10/09/20 10:01 Pulse Ox 97 10/09/20 10:01 Intake & Output 10/08/20 10/09/20 10/09/20 18:59 06:59 18:59 Intake Total 480 Output Total 150 Balance -150 480 Weight 105.7 kg Intake: Oral 480 Output: Urine 150 Other: Voiding Method Urinal # Voids 1 - Labs CBC & Chem 7: 10/07/20 05:45 10/07/20 05:45 Labs: Abnormal Lab Results - Last 24 Hours (Table) 10/08/20 10/08/20 10/09/20 Range/Units 17:25 19:57 07:31 POC Glucose (mg/dL) 164 H 226 H 236 H (75-99) mg/dL 10/09/20 Range/Units 11:36 POC Glucose (mg/dL) 228 H (75-99) mg/dL Microbiology - Last 24 Hours (Table) 10/02/20 10:38 Blood Culture - Final Blood No Growth after 144 hours 10/02/20 10:02 Blood Culture - Final Blood No Growth after 144 hours Assessment and Plan Plan: Assessment: 1. End-stage renal disease maintained on hemodialysis on Friday schedule. 2. Covid 19 pneumonia. Maintained on steroids and zinc. Currently off oxygen. 3. Chronic kidney disease mineral bone disease maintained on PhosLo. Phosphorus 4.1. 4. Anemia of chronic kidney disease maintained on Aranesp. 5. Diabetes mellitus. Plan: Currently seen while undergoing hemodialysis. Outpatient dialysis being set up at a [facility] facility.
[2020-10-09 12:57] VITALS: BMI 31.6
[2020-10-09 13:47] VITALS: BP 130/62; PULSE 102; RESP 20; TEMP 97.9
== END 2020-10-09 15:19 | disposition home health service (06) | DRG 871 ==
LOC: EC 09:39 → 2SICU 11:13 → 4SSUR 10-06 22:04
PROVIDERS: ADMIT Family Medicine; ATTEND Family Medicine
PROC: 5A1D70Z Performance of Urinary Filtration, Intermittent, Less than 6 Hours Per Day (ICD-10-PCS; principal; 2020-10-04)
PROC: 30233N1 Transfusion of Nonautologous Red Blood Cells into Peripheral Vein, Percutaneous Approach (ICD-10-PCS; principal; 2020-10-04)
DX: A41.89 Other specified sepsis (principal); J12.82 Pneumonia due to coronavirus disease 2019; J96.01 Acute respiratory failure with hypoxia; N18.6 End stage renal disease; U07.1 COVID-19; I13.2 Hypertensive heart and chronic kidney disease with heart failure and with stage 5 chronic kidney disease, or end stage renal disease; I50.32 Chronic diastolic (congestive) heart failure; K76.6 Portal hypertension; J44.0 Chronic obstructive pulmonary disease with (acute) lower respiratory infection; N25.81 Secondary hyperparathyroidism of renal origin; K86.1 Other chronic pancreatitis; I42.9 Cardiomyopathy, unspecified; I48.19 Other persistent atrial fibrillation; Z99.11 Dependence on respirator [ventilator] status; D62 Acute posthemorrhagic anemia; I25.10 Atherosclerotic heart disease of native coronary artery without angina pectoris; K21.9 Gastro-esophageal reflux disease without esophagitis; G47.00 Insomnia, unspecified; F32.9 Major depressive disorder, single episode, unspecified; E87.5 Hyperkalemia; E78.5 Hyperlipidemia, unspecified; E11.65 Type 2 diabetes mellitus with hyperglycemia; E11.40 Type 2 diabetes mellitus with diabetic neuropathy, unspecified; E11.22 Type 2 diabetes mellitus with diabetic chronic kidney disease; D73.1 Hypersplenism; D69.59 Other secondary thrombocytopenia; D63.1 Anemia in chronic kidney disease; F41.9 Anxiety disorder, unspecified; G47.33 Obstructive sleep apnea (adult) (pediatric); M89.8X9 Other specified disorders of bone, unspecified site; Z99.2 Dependence on renal dialysis; Z95.5 Presence of coronary angioplasty implant and graft; Z91.11 Patient's noncompliance with dietary regimen; Z87.891 Personal history of nicotine dependence; Z87.01 Personal history of pneumonia (recurrent); Z82.49 Family history of ischemic heart disease and other diseases of the circulatory system; Z79.899 Other long term (current) drug therapy; Z79.52 Long term (current) use of systemic steroids; Z79.4 Long term (current) use of insulin
CPT/HCPCS: 36415; 71045; 80048; 80053; 82728; 83605; 83615; 83735; 83880; 84100; 84145; 85025; 85027; 85610; 85730; 86140; 86850; 86900; 86901; 86920; 87040; 87070; 87205; 90935; 93005; 94640; 94660; 94760; 96365; 96366; 96368; 96375; 99291

== ENCOUNTER 2020-10-11 15:05 | Emergency (ER) | payer MEDICARE ==
[~2020-10-11 15:05] MED LIST changes: +CALCIUM CHLORIDE 100 MG/ML 10 ML SYRINGE ONE; +EPINEPHrine 10 ML SYRINGE (0.1 MG/ML) ONE; -LACTATED RINGERS 1,000 ML IV SCH; -ceFAZolin 2 GM in SODIUM CHLORIDE 0.9% 100 ML IVPB ONE
--- NOTE | 2020-10-11 15:33 | ED ---
CPR HPI - General Chief Complaint: Cardiac Arrest/CPR Stated Complaint: Cardiac Arrest Source: EMS Mode of arrival: EMS Limitations: altered mental status - History of Present Illness Initial Comments: Ismael is a 59yo M with extensive past medical history who presents to the ER today via ambulance with CPRin progress. Per EMS they were called the patient's home for difficulty breathing, upon their arrival the patient has labored breathing, head with a described as a puddle bloody sputum next to him, shortly after their arrival the patient was into cardiac arrest. Resuscitation was initiated per ACLS protocols and continued in route prior to arrival patient had received 5 epi and had been shocked for fine V. fib with no return of spontaneous circulation. - Related Data Home Medications Medication Instructions Recorded Confirmed ALPRAZolam [Xanax] 0.25 mg PO DAILY PRN 06/04/18 10/02/20 HYDROcodone/APAP 10-325MG [[place] 1 tab PO Q4H 06/04/18 10/02/20 10-325] ARIPiprazole [Abilify] 5 mg PO HS 01/04/19 10/02/20 Bumetanide [BUMEX] 4 mg PO BID 01/04/19 10/02/20 Dialyvite 1 tab PO HS 01/04/19 10/02/20 Insulin Aspart [NovoLOG Flexpen] 20 unit SQ AC-TID 01/04/19 10/02/20 Omeprazole [PriLOSEC] 20 mg PO DAILY@1500 01/04/19 10/02/20 Aspirin EC [Ecotrin Low Dose] 81 mg PO HS 09/04/20 10/02/20 Calcium Acetate [PhosLo] 1,334 mg PO AC-TID PRN 09/04/20 10/02/20 Carvedilol [Coreg] 12.5 mg PO BID 09/04/20 10/02/20 Docusate [Colace] 100 mg PO BID PRN 09/04/20 10/02/20 Isosorbide Mononitrate ER [Imdur] 30 mg PO DAILY 09/04/20 10/02/20 Morphine Sulfate [Ms Contin] 30 mg PO Q12H 09/04/20 10/02/20 PARoxetine [Paxil] 20 mg PO HS 09/04/20 10/02/20 Ipratropium [place] [Atrovent Hfa] 2 puff INHALATION RT-QID 10/02/20 10/02/20 Levalbuterol Hfa Inhaler [Xopenex 2 puff INHALATION RT-Q6H 10/02/20 10/02/20 Hfa Inhaler] Previous Rx's Medication Instructions Recorded Atorvastatin Calcium [Lipitor] 80 mg PO HS #30 tab 03/01/14 Ascorbic Acid [Vitamin C] 1,000 mg PO DAILY tab 09/29/20 Cholecalciferol [Vitamin D3 (25 75 mcg PO DAILY tablet 09/29/20 Mcg = 1000 Iu)] Levofloxacin [Levaquin] 500 mg PO Q48H 3 Days #3 tab 09/29/20 Zinc Sulfate [Orazinc] 220 mg PO DAILY cap 09/29/20 Diltiazem Oral [Cardizem*] 30 mg PO TID #90 tab 10/09/20 Insulin Detemir (Levemir) [Levemir] 22 unit SQ DAILY@0700 syr 10/09/20 Allergies Allergy/AdvReac Type Severity Reaction Status Date / Time No Known Allergies Allergy Verified 10/02/20 10:09 Review of Systems ROS Statement: Those systems with pertinent positive or pertinent negative responses have been documented in the HPI. ROS Other: All systems not noted in ROS Statement are negative. Past Medical History Past Medical History: Coronary Artery Disease (CAD), Chest Pain / Angina, Heart Failure, COPD, CVA/TIA, Diabetes Mellitus, GERD/Reflux, Hyperlipidemia, Hypertension, Osteoarthritis (OA), Renal Disease, Respiratory Disorder, Sleep Apnea/CPAP/BIPAP Additional Past Medical History / Comment(s): Pt recently admitted to [facility] on 09/04/20 with acute respiratory failure d/t combination of fluid overload/exacerbation COPD/exacerbation CHF and R side pneumonia. Other hx: Pt tested covid + on 09/25/20 at [facility], IDDM type II, ESRD with dialysis M/W/F, neuropathy bilateral feet/hands, chronic anemia, severe cardiomyopathy/EF 55%, CVA with some R sided weakness, past ETOH abuse, esophageal varicies/nonbleeding, chronic pancreatitis, splenomegaly, chronic thrombocytopenia, MONTSE with Cpap, hx ARDS with rn long term care vent/trach, chronic cervical and back pain, chronic thrombocytopenia, incisional disease on hemodialysis MWF, hypertension, hyperlipidemia, diabetes mellitus type 2, obstructive sleep apnea, COPD, coronary artery disease with previous cardiac catheterization and stenting, recent hospitalization for Covid 19 related pneumonia. History of Any Multi-Drug Resistant Organisms: None Reported Past Surgical History: Appendectomy, Back Surgery, Cholecystectomy, Heart Catheterization, Heart Catheterization With Stent Additional Past Surgical History / Comment(s): Recent cardiac cath, PCI with stents, anterior cervical fusion with plate, R arm dialysis graft, nonfunctioning L upper arm dialysis graft, tracheostomy, colonoscopy. Past Anesthesia/Blood Transfusion Reactions: No Reported Reaction Date of Last Stent Placement:: 2010 Past Psychological History: Anxiety, Depression Smoking Status: Former smoker Past Alcohol Use History: None Reported Past Drug Use History: None Reported - Past Family History Father Family Medical History: Coronary Artery Disease (CAD), Myocardial Infarction (GA) Additional Family Medical History / Comment(s): Father of a GA at the age of 65yrs. Mother Family Medical History: Coronary Artery Disease (CAD), Myocardial Infarction (GA) Additional Family Medical History / Comment(s): Mother of a GA at the age of 55yrs. Brother(s) Family Medical History: Cancer Daughter(s) Family Medical History: Vascular Disorder (VSD) General Exam Limitations: altered mental status General appearance: other (Unresponsive, CPR in progress, supraglottic airway in place) Head exam: Present: atraumatic Eye exam: Present: other (FIxed and dilated) Pupils: Present: other (Dilated, unresponsive) Respiratory exam: Present: other (CPR in progress, no spontaneous respirations) Cardiovascular Exam: Present: other (AV fistula in each arm, IO access in left humerus, no spontaneous pulses) Extremities exam: Present: other (cool, edematous) Neurological exam: Present: other (Unresponsive, pupils fixed and dilated, no gag response) Skin exam: Present: cyanosis, other (cool pale, cyanotic) Procedures - Intubation Laryngoscope: Molly Size: 3 Assist Device Used: fiber optic device ET Tube Size: 7.5 ET Tube Uncuffed: No Tube Secured Depth (cm): 22 Tube Secured Location: teeth Tube Placement Confirmation: visualized tube passing through cords, no breath sounds over epigastrium, confirmation by capnometry Intubation Complications: difficult intubation Medical Decision Making - Medical Decision Making she was seen and evaluated immediately upon arrival the emergency department Resuscitation was continued. ACLS protocols Given the patient's history of kidney disease And gluconate was given Glucose was greater than 200 Definitive airway was established with a 7.5 ET tube, despite adequate oxygenation and continued CPR patient remained in asystole time of was declared at 15:[address] Drew was notified, will sign certificate litigation examiner Nayana notified, patient is released notified, at bedside Disposition Clinical Impression: Cardiac arrest Disposition: Referrals: Gonzales Drew MD [Primary Care Provider] - 1-2 days Time of Disposition: 15:16 Preliminary Cause of : Respiratory arrest
== END 2020-10-11 19:06 | disposition expired ==
LOC: EC 15:05
DX: I46.9 Cardiac arrest, cause unspecified (principal); I13.2 Hypertensive heart and chronic kidney disease with heart failure and with stage 5 chronic kidney disease, or end stage renal disease; E11.22 Type 2 diabetes mellitus with diabetic chronic kidney disease; E11.40 Type 2 diabetes mellitus with diabetic neuropathy, unspecified; J44.1 Chronic obstructive pulmonary disease with (acute) exacerbation; M19.90 Unspecified osteoarthritis, unspecified site; K21.9 Gastro-esophageal reflux disease without esophagitis; I25.119 Atherosclerotic heart disease of native coronary artery with unspecified angina pectoris; N18.6 End stage renal disease; I50.9 Heart failure, unspecified; G47.33 Obstructive sleep apnea (adult) (pediatric); F32.9 Major depressive disorder, single episode, unspecified; F41.9 Anxiety disorder, unspecified; Z79.82 Long term (current) use of aspirin; Z79.899 Other long term (current) drug therapy; Z79.891 Long term (current) use of opiate analgesic; Z79.4 Long term (current) use of insulin; Z99.2 Dependence on renal dialysis; Z86.16 Personal history of COVID-19; Z99.89 Dependence on other enabling machines and devices; Z86.73 Personal history of transient ischemic attack (TIA), and cerebral infarction without residual deficits; Z95.5 Presence of coronary angioplasty implant and graft; Z87.891 Personal history of nicotine dependence
CPT/HCPCS: 31500; 99285